=== PATIENT | male | born 1955 | race Caucasian/White ===

== ENCOUNTER 2018-02-22 11:21 | Inpatient (IN) | payer OTHER ==
--- OUTSIDE RECORDS SUMMARY | 2018-02-22 12:29 | XMS REPORT ---
:1955 Author Organization eClinicalWorks Care Team Providers Name Role Phone BaumJose Manuel Provider Role Unavailable Allergies, Adverse Reactions, Alerts Substance Reaction Event Type N.K.D.A. Info Not Available Non Drug Allergy Problems Problem Type Condition Code Onset Dates Condition Status Assessment Hypertension I10 Active Problem Hyperlipidemia, mixed E78.2 Active Problem Idiopathic peripheral neuropathy G60.9 Active Problem Insomnia G47.00 Active Problem Venous insufficiency I87.2 Active Problem Hypertension I10 Active Problem Obstructive sleep apnea G47.33 Active Problem Chronic renal disease N18.9 Active Problem Coronary artery disease I25.10 Active Problem Bipolar disorder F31.9 Active Assessment Bipolar disorder F31.9 Active Assessment Obstructive sleep apnea G47.33 Active Assessment Insomnia G47.00 Active Assessment Coronary artery disease I25.10 Active Assessment Idiopathic peripheral neuropathy G60.9 Active Assessment Hyperlipidemia, mixed E78.2 Active Medications Medication Code Code Instructions Start End Status Dosage System Date Date Colace [facility] 46580001842 100 MG Orally Active 1 capsule as Once a day needed Simvastatin [facility] 66174281052 40 MG Orally Active 1 tablet in Once a day the evening Metoprolol [facility] 17837093151 50 PO BID Active TAKE ONE Tartrate TABLET BY MOUTH TWICE A DAY. TAKE WITH METOPROLOL 25MG TO EQUAL TOTAL DOSE OF 75MG TWICE DAILY Neurontin [facility] 93668990946 300 MG Orally Inactive 1 capsule Once a day before bedtime Remeron [facility] 91980537715 30 MG Orally Active 1 tablet at Once a day bedtime Depakote ER [facility] 77939248814 500 MG Orally Active not defined Aspirin [facility] 17969416679 325 MG Orally Active 1 tablet Once a day Metoprolol [facility] 72876706298 25 PO BID Active TAKE ONE Tartrate TABLET BY MOUTH TWICE A DAY. TAKE WITH METOPROLOL 50MG TO TOTAL DOSE OF 75MG Lyrica [facility] 76213599531 75 MG Orally March Active 1 capsule 1 Twice a day 2017 to 3 hours before bedtime in the evening Zoloft NDC 10956460309 100 MG Orally Active 1 tablet Once a day Results No Known Results Summary Purpose eClinicalWorks Submission
--- OUTSIDE RECORDS SUMMARY | 2018-02-22 12:29 | XMS REPORT ---
:1955 Author Organization eClinicalWorks Care Team Providers Name Role Phone Jose Manuel Baum Provider Role Unavailable Allergies No Known Allergies Problems Problem Type Condition Code Onset Dates Condition Status Problem Hyperlipidemia, mixed E78.2 Active Problem Idiopathic peripheral neuropathy G60.9 Active Problem Insomnia G47.00 Active Problem Venous insufficiency I87.2 Active Problem Hypertension I10 Active Problem Obstructive sleep apnea G47.33 Active Problem Chronic renal disease N18.9 Active Problem Coronary artery disease I25.10 Active Problem Bipolar disorder F31.9 Active Medications No Known Medications Results No Known Results Summary Purpose eClinicalWorks Submission
--- OUTSIDE RECORDS SUMMARY | 2018-02-22 12:29 | XMS REPORT ---
:1955 Author Organization eClinicalWorks Care Team Providers Name Role Phone Jose Manuel Baum Provider Role Unavailable Allergies, Adverse Reactions, Alerts Substance Reaction Event Type Phenergan Info Not Available Drug Allergy Problems Problem Type Condition Code Onset Dates Condition Status Problem Hyperlipidemia, mixed E78.2 Active Problem Idiopathic peripheral neuropathy G60.9 Active Problem Insomnia G47.00 Active Problem Venous insufficiency I87.2 Active Problem Hypertension I10 Active Problem Obstructive sleep apnea G47.33 Active Problem Chronic renal disease N18.9 Active Problem Coronary artery disease I25.10 Active Problem Bipolar disorder F31.9 Active Medications Medication Code Code Instructions Start End Status Dosage System Date Date Neurontin [facility] 59623071765 300 MG Orally Active 1 capsule Once a day before bedtime Metoprolol [facility] 21258473048 50 Active TAKE ONE Tartrate TABLET BY MOUTH TWICE A DAY. TAKE WITH METOPROLOL 25MG TO EQUAL TOTAL DOSE OF 75MG TWICE DAILY Remeron [facility] 95240733290 30 MG Orally Active 1 tablet at Once a day bedtime Depakote ER [facility] 83618790956 500 MG Orally Active not defined Metoprolol [facility] 72827169920 25 Active TAKE ONE Tartrate TABLET BY MOUTH TWICE A DAY. TAKE WITH METOPROLOL 50MG TO TOTAL DOSE OF 75MG Colace [facility] 13243990440 100 MG Orally Active 1 capsule as Once a day needed Simvastatin [facility] 25701178268 40 MG Orally Active 1 tablet in Once a day the evening Zoloft [facility] 82167752562 100 MG Orally Active 1 tablet Once a day Results No Known Results Summary Purpose eClinicalWorks Submission
[2018-02-22] MEDS ORDERED: ACETAMINOPHEN 500 MG TAB PO PRN (12:52)
[2018-02-22] MEDS ORDERED: ONDANSETRON 4 MG/2 ML VIAL IV PRN (12:52)
[2018-02-22 12:59] VITALS: BMI 27.6
[2018-02-22] MEDS: NA CHLORIDE 0.9% 1,000 ML IV SCH ×2 (13:00→20:28)
[2018-02-22 14:11] LABS: Potassium 4.1 mEq/L (3.6-5.0)
[2018-02-22 14:14] LABS: Absolute Lymphocytes (CBC) 1.7 K/uL (0.7-4.9); Absolute Monocytes 0.6 K/uL (0.1-1.3); Absolute Neutrophil 3.7 K/uL (1.8-8.0); Albumin 3.2 g/dL (3.2-5.5); Basophils % 0.8 % (0-1.3); Bilirubin Total 0.4 mg/dL (0.3-1.2); Eosinophils % 1.2 % (0-4.4); Hematocrit 44.1 % (39.6-49.0); Lymphocytes % 28.1 % (15.3-44.8); MCH 33.6 pg (27.0-35.0); MCV 106.9 fL (80-100); MPV 8.3 fL (7.6-11.3); Magnesium 2.2 mg/dL (1.8-2.5); Monocytes % 9.2 % (3.3-12.3); Phosphorus 3.4 mg/dL (2.5-4.3); RBC Red Blood Cell Count 4.12 M/uL (4.33-5.43)
--- NOTE | 2018-02-22 14:30 | RAD REPORT ---
EXAM DESCRIPTION: CT - Head Brain Wo Cont - 02/22/2018 1:55 pm CLINICAL HISTORY: Transient alteration of awareness, hallucinations COMPARISON: None. TECHNIQUE: Axial 5 mm thick images of the head were obtained without IV contrast. All CT scans are performed using dose optimization technique as appropriate and may include automated exposure control or mA/KV adjustment according to patient size. FINDINGS: No intracranial hemorrhage, mass, edema or shift of mid-line structures. No acute cortical based infarction. No cortical edema or sulcal effacement. Prominent atrophy and chronic ischemic lorenzo nges are present. No abnormal extra-axial fluid collections. Ventricles are in proportion to volume l oss. Arterial and physiologic calcifications are present. Mastoid air cells and visualized portions of the paranasal sinuses are clear. No acute bony findings. IMPRESSION: Moderate severity atrophy and chronic ischemic change. No acute intracranial finding see n.
--- NOTE | 2018-02-22 14:39 | RAD REPORT ---
EXAM DESCRIPTION: RAD - Chest Pa And Lat (2 Views) - 02/22/2018 2:21 pm CLINICAL HISTORY: Cough and congestion COMPARISON: October 2012 TECHNIQUE: PA and lateral views of the chest were obtained. FINDINGS: The lungs are clear of an acute infiltrate, mass or failure finding. Lung markings are not significantly different from the comparison. Sternotomy wires remain in place. Heart size is yury l and central vasculature is within normal limits. No pleural effusion or pneumothorax seen. No acu te bony finding noted. No aortic abnormality. IMPRESSION: No acute cardiopulmonary process. No significant change from comparison.
--- NOTE | 2018-02-22 14:45 | RAD REPORT ---
EXAM DESCRIPTION: RAD - Lumbar Spine 3 Views - 02/22/2018 2:21 pm CLINICAL HISTORY: Back pain, radiculopathy COMPARISON: October 2012 FINDINGS: A three-view lumbar spine examination was performed. Lumbar bodies are normal in height. Vertebral height is similar to comparison. No acute compression f racture. No lytic, sclerotic or expansile bony destructive process. L5 pars defects are present. Ther e is L5 spondylolysis less than grade 1. These findings in alignment and changes are not substantiall y different from 2013. Patient has a right convex degenerative scoliotic curvature that is accentuate d slightly from comparison. The right lateral L3 subluxation has progressed minimally but is not a ne w finding. Prominent anterior endplate spurring is present with bridging ossification that has advanc ed over time. There is bridging ossification along the left lateral margin of L3-4. There is signific ant disc space narrowing at L3-4, primarily left lateral margin. L2-3 lateral disc space is narrowed slightly. No additional pars defects seen. IMPRESSION: Patient has prominent degenerative change scattered throughout the lumbar spine. Degener ative changes have progressed slightly since 2012. No compression fracture or other acute bone process identifiable.
[2018-02-22] MEDS: HYDROCODONE/APAP 7.5/325 MG TAB PO PRN ×2 (15:40→21:43)
[2018-02-22 15:45] LABS: Platelet Estimate ADEQ
[2018-02-22 15:46] LABS: Anisocytosis 1+; Blood Morphology Comment NOTED (NOT SEEN); Macrocytosis 1+; Urine White Blood Cell Casts OK
[2018-02-22 15:59] LABS: Urine Appearance CLEAR; Urine Bilirubin NEGATIVE (NEG); Urine Blood NEGATIVE (NEG); Urine Color YELLOW; Urine Glucose NEGATIVE (NEG); Urine Protein NEGATIVE (NEG); Urine Urobilinogen 0.2 mg/dL (0.2-1.0)
[2018-02-22 16:00] LABS: Urine Microscopic Reflex NO UMIC
--- NOTE | 2018-02-22 16:09 | EKG ---
Test Date: 2018-02-22 Test Time: 13:23:36 Steam Press Operator: CESAR MEASUREMENT RESULTS: Intervals: Rate: 69 NC: 156 QRSD: 86 QT: 412 QTc: 441 [place]: P: 65 NC: 156 QRS: 41 T: 68 INTERPRETIVE STATEMENTS: Normal sinus rhythm Nonspecific ST and T wave abnormality Abnormal ECG Compared to ECG 11/01/2012 18:44:24 ST (T wave) deviation now present Electronically Signed On 02-22-18 16:07:57 CDT by Yousif Lara
--- NOTE | 2018-02-22 16:53 | HP ---
Date of Admission: 02/22/2018 Chief Complaint: Abnormal labs. Primary Care Physician: Dr. Baum. Consultants: Dr. Younger with Nephrology. History Of Present Illness: The patient is a 63-year-old male with past medical history of coronary artery disease status post CABG, chronic kidney disease, insomnia, bipolar disorder, hypertension, wh o was directly admitted to the hospital for abnormal labs. The patient was seen by Dr. Maritza cabrera in her office today for routine followup for labs from previous week. His creatinine had jumped u p to 3.8, his baseline is around 2.5. His electrolytes were okay. The patient does report having so me generalized weakness, fatigue, and diarrhea over the past week. His symptoms are constant, modera te, progressively worsening. also reports that the patient had some confusion with hallucinatio ns also present. The patient does report some pain in his back and some heaviness in his lower extre mities. The patient states he is scheduled for a MRI of the back and arterial Doppler of his lower e xtremities later on this month by his PCP. When the patient was seen on the floor, he was awake, archie rt, oriented x3, in some mild distress due to pain. Past Medical History: Insomnia, bipolar disorder, hyperlipidemia, coronary artery disease, obstructi ve sleep apnea, hypertension, chronic kidney disease. Past Surgical History: CABG in 2010, cholecystectomy. Medications: Reviewed. Allergies: TO PHENERGAN. Family History: Father had pancreatic cancer. Mother has NE, polycythemia vera. Social History: The patient is for 18 years, has 3 children. Works at [employer]. He smokes a pack a day. No alcohol use. Review of Systems: An 11-point system reviewed, negative except as per HPI. Physical Examination: Vital Signs: Stable, afebrile. General: Awake, alert, oriented x3, some mild distress, elderly male. HEENT: Normocephalic, atraumatic. PERRLA. EOMI. Dry mucous membranes. Oropharynx is clear. Poor dentition. Conjunctiva anicteric. Neck: Supple. No JVD. Trachea midline. CV: S1, S2. No murmurs. Regular rate and rhythm. Peripheral pulses are present bilaterally. Respiratory: Clear to auscultation bilaterally. No wheezing. No stridor. No use of accessory musc les. Gastrointestinal: Abdomen is soft, nontender, nondistended. Positive bowel sounds. No guarding or rigidity. Extremities: No clubbing, cyanosis. Trace pedal edema. No calf tenderness. Neuro: Cranial nerves 2 through 12 intact grossly. No focal neurological deficit. Strength is 5/5 in bilateral upper and lower extremities. Sensation intact to light touch. Speech is normal. Musculoskeletal: Mild tenderness to palpation on the mid lumbar spine. Pain with lumbar flexion. Skin: No rashes. Normal skin turgor. Psych: Mood is okay. Affect is flat. Insight and judgment are good. Laboratory Data: Pending at this time. Assessment And Plan: A 63-year-old male with: 1.Acute on chronic kidney injury, may be related to acute dehydration and prerenal azotemia. We brian l start on IV fluids. We will recheck CBC, CMP and Dr. Younger with nephrology has been cons ulted. 2.Bipolar disorder. We will check Depakote level. 3.Coronary artery disease status post coronary artery bypass graft, [place] artery and [place] heart w [facility] angina, stable. We will resume aspirin. 4.Hyperlipidemia, mixed. We will continue home medications. The patient is on statin. 5.Insomnia. 6.Obstructive sleep apnea. We will have CPAP at night brought up. 7.Essential hypertension, stable. Resume home medications as appropriate. 8.Gastrointestinal and deep venous thrombosis prophylaxis with PPI and Lovenox renally dosed. Plan: Admit the patient to Med-Surg, place as inpatient. ANTOINE Voice ID: [id number]
[2018-02-22] MEDS: ENOXAPARIN 30 MG/0.3 ML SQ SCH (17:00)
[2018-02-22] MEDS: NICOTINE 21 MG/PAT TD SCH (20:29)
[2018-02-22] MEDS: ATORVASTATIN 20 MG TAB PO SCH (20:29)
[2018-02-22] MEDS: MIRTAZAPINE 15 MG TAB PO SCH (20:30)
[2018-02-22] MEDS: DIVALPROEX DR 500MG TAB PO SCH (20:30)
[2018-02-22] MEDS: METOPROLOL TAR 50 MG TAB PO SCH (20:30)
[2018-02-22] MEDS ORDERED: MIRTAZAPINE 30 MG PO SCH (21:00)
[2018-02-22] MEDS ORDERED: HOME MED 1 EA UNK (Simvastatin [Simvastatin] 40 MG) PO SCH (21:00)
[2018-02-23 05:48] LABS: Albumin 2.5 g/dL (3.2-5.5); Bilirubin Total 0.4 mg/dL (0.3-1.2); Potassium 4.7 mEq/L (3.6-5.0); Protein, Total 4.7 g/dL (6.0-8.3)
[2018-02-23 05:50] LABS: Absolute Lymphocytes (CBC) 2.8 K/uL (0.7-4.9); Absolute Monocytes 0.5 K/uL (0.1-1.3); Absolute Neutrophil 2.4 K/uL (1.8-8.0); Basophils % 0.8 % (0-1.3); Eosinophils % 1.7 % (0-4.4); Hematocrit 40.6 % (39.6-49.0); Lymphocytes % 48.2 % (15.3-44.8); MCV 107.5 fL (80-100); RBC Red Blood Cell Count 3.77 M/uL (4.33-5.43)
[2018-02-23] MEDS: HYDROCODONE/APAP 7.5/325 MG TAB PO PRN ×3 (06:05→19:08)
[2018-02-23] MEDS: NICOTINE 21 MG/PAT TD SCH (08:49)
[2018-02-23] MEDS: SERTRALINE HCL 100 MG TAB PO SCH (08:49)
[2018-02-23] MEDS: METOPROLOL TAR 50 MG TAB PO SCH ×2 (08:49→20:54)
[2018-02-23] MEDS: DIVALPROEX DR 250 MG TAB PO SCH (08:55)
[2018-02-23] MEDS ORDERED: NICOTINE 21 MG/PAT TD SCH (09:00)
[2018-02-23] MEDS: ASPIRIN 325 MG TAB PO SCH (11:13)
[2018-02-23] MEDS: NA CHLORIDE 0.9% 1,000 ML IV SCH ×2 (11:14→21:02)
--- NOTE | 2018-02-23 15:42 | PN ---
Date of Progress Note: 02/23/2018 Subjective: The patient seen and examined, chart reviewed, and case discussed with RN and Dr. Tigist knutson. The patient is doing better. Still complains of some lower back pain. Imaging test results rev iewed with the patient. All questions answered. Review of Systems: Negative except as above. Medications: Reviewed. Objective: Vital Signs: Temperature 96.1, heart rate 55, blood pressure 148/78, respirations 16, an d O2 95% on room air. General: Awake, alert, oriented x3. Some mild distress due to pain. Elderly male, slightly ill brian earing. CV: S1, S2. No murmurs. Regular rate and rhythm. Peripheral pulses present. Respiratory: Clear to auscultation bilaterally. No wheezing. Gastrointestinal: Abdomen is soft, nontender, nondistended. Positive bowel sounds. Extremities: No clubbing, cyanosis, edema. Neurologic: Nonfocal. Laboratory Data: Sodium 146, potassium 4.7, chloride 120, CO2 20, BUN 36, creatinine 3.27, glucose 6 8, calcium 8, and albumin 2.5. WBC 5.8, H and H 12.8, 40.6, platelets 168, and neutrophils 41%. Lum bar spine x-ray shows prominent degenerative change scattered throughout the lumbar spine. Degenerat chester changes progressed since previous. No compression fracture. Assessment And Plan: A 63-year-old male with; 1.Acute on chronic kidney injury, likely related to prerenal azotemia and dehydration. We will cont inue with IV fluids. Creatinine has improved. We will follow up with Nephrology recommendations. 2.Bipolar disorder. Depakote level within normal levels. 3.Coronary artery disease, status post CABG, [place] artery and [place] heart without angina, stable. 4.Hyperlipidemia, mixed. Continue statin. 5.Insomnia. 6.Obstructive sleep apnea. Have the patient bring up his CPAP. 7.Essential hypertension, stable. 8.Gastrointestinal and deep venous thrombosis prophylaxis with PPI and Lovenox renally dosed. We wi ll continue to monitor creatinine. SA/MODL Voice ID: [id number] Report ID: [id number]
[2018-02-23] MEDS: ENOXAPARIN 30 MG/0.3 ML SQ SCH (17:56)
[2018-02-23] MEDS: MIRTAZAPINE 15 MG TAB PO SCH (20:53)
[2018-02-23] MEDS: ATORVASTATIN 20 MG TAB PO SCH (20:54)
[2018-02-23] MEDS: DIVALPROEX DR 500MG TAB PO SCH (20:59)
[2018-02-23 22:45] VITALS: O2SAT 94
--- NOTE | 2018-02-24 01:22 | CON ---
Date of Consultation: 02/23/2018 Reason For Consultation: Elevated BUN and creatinine. Hypertension. History Of Present Illness: This is a pleasant 63-year-old gentleman, well known to me from the [facility], who follows up with Dr. Valenzuela with significant past medical history of coronary artery disease, status post CABG; hypertension; chronic kidney disease stage 3B/4 secondary to hypertension, nephrosclerosis, and renal vascular disease, bipolar. The patient with baseline creatinine 2.5, cam e to the office to Dr. Valenzuela. Lab done 1 week ago, creatinine 3.5. The patient had fatigu e, losing energy, decreased intake with confusion. For that reason, he was sent for direct admission . The patient denied any nausea or vomiting. Over the night, the patient started on IV fluid. Kidn ey function started to improve towards his baseline. The patient is feeling better. Past Medical History: Includes; 1.Insomnia. 2.Bipolar. 3.Hyperlipidemia. 4.Coronary artery disease. 5.Obstructive sleep apnea. 6.Hypertension. 7.Chronic kidney disease, stage 3B/4. Baseline creatinine 2.5. Past Surgical History: 1.CABG back in 2010. 2.Cholecystectomy. Allergies: PHENERGAN. Family History: Positive for pancreatic cancer, hypertension, and polycythemia vera. Social History: Active smoker. Denied alcohol. Denied drug abuse. Review of Systems: Head and Neck: No red eye. No ear pain. GI: Decreased intake. : No polyuria. No dysuria. No hematuria. CINDER PIT WORKER: Not applicable. Respiratory: No shortness of breath. Cardiovascular: No chest pain. Neurologic: Generalized fatigue. Endocrine: No polydipsia. Skin: No rash. Physical Examination: General: When I saw the patient, the patient lying in bed, comfortable, not in any distress. Vital Signs: Blood pressure of 132/88, pulse of 88. Chest: Clear to auscultation. Heart: S1, S2. Regular. Abdomen: Soft, nontender. Extremities: Trace edema. Neurological: Alert and oriented x3. No focal deficits. Medications: Home medications include; 1.Depakote. 2.Gabapentin 300 b.i.d. 3.Aspirin. 4.Simvastatin. 5.Sertraline. 6.Mirtazapine. 7.Metoprolol 75 b.i.d. Current medications in the hospital include; 1.Aspirin. 2.Atorvastatin. 3.Depakote 1000 in the morning, 250 during the day. 4.Lovenox. 5.Hydrocodone. 6.Metoprolol 75 b.i.d. 7.Nicotine patch. 8.Sertraline. Laboratory Data: For the patient; WBC 5.8, H and H of 12.8/40.6, platelet 168. Sodium 146, potassiu m 4.7, bicarb 20. BUN 36, creatinine 3.2, calcium 8. Urinalysis negative for infection. Valproic a amanda 4.7. Assessment And Plan: 1.Acute kidney injury secondary to prerenal, secondary to poor intake. I am going to continue hydra tion for the patient. We will monitor. We will hold on any diuresis. 2.Hypertension, controlled, optimal. Continue current medication. Hold Lasix. 3.Seizure. Will follow up with primary. DONN Voice ID: [id number] Report ID: [id number]
[2018-02-24 05:43] LABS: Absolute Lymphocytes (CBC) 2.3 K/uL (0.7-4.9); Absolute Monocytes 0.6 K/uL (0.1-1.3); Basophils % 0.5 % (0-1.3); Eosinophils % 1.9 % (0-4.4); Hematocrit 40.4 % (39.6-49.0); Lymphocytes % 38.6 % (15.3-44.8); MCH 34.3 pg (27.0-35.0); MCV 106.2 fL (80-100); MPV 7.9 fL (7.6-11.3); Monocytes % 9.4 % (3.3-12.3)
[2018-02-24 05:51] LABS: Albumin 2.4 g/dL (3.2-5.5); Bilirubin Total 0.3 mg/dL (0.3-1.2); Protein, Total 4.7 g/dL (6.0-8.3)
[2018-02-24] MEDS: HYDROCODONE/APAP 7.5/325 MG TAB PO PRN (11:01)
[2018-02-24] MEDS: NICOTINE 21 MG/PAT TD SCH (11:01)
[2018-02-24] MEDS: METOPROLOL TAR 50 MG TAB PO SCH (11:02)
[2018-02-24] MEDS: ASPIRIN 325 MG TAB PO SCH (11:04)
[2018-02-24] MEDS: DIVALPROEX DR 250 MG TAB PO SCH (11:05)
[2018-02-24] MEDS: SERTRALINE HCL 100 MG TAB PO SCH (11:07)
--- NOTE | 2018-02-24 11:49 | PN ---
Date of Progress Note: 02/24/2018 Subjective: The patient doing well. No nausea. No vomiting. Still complaining of pain. Physical Examination: Vital Signs: When I saw the patient, blood pressure of 177/87, pulse of 61. The patient had good ur ine output of 2800. Chest: Clear to auscultation. Heart: S1, S2. Regular. Abdomen: Soft, nontender. Extremities: No edema. Laboratory Data: H and H 13.1/40.4. Sodium 146, potassium 5, bicarb 20, BUN 32, creatinine 2.9, titus cium 8.2. Medications: Current medications the patient on include: 1.Normal saline at 50 per hour. 2.Aspirin. 3.Nicotine. 4.Lovenox. 5.Atorvastatin. 6.Metoprolol. 7.Mirtazapine. 8.Sertraline. 9.Hydrocodone. Assessment And Plan: 1.Acute kidney injury secondary to prerenal, recovered, back to baseline. I am going to go ahead an d discontinue IV fluid. 2.Hypertension, uncontrolled. Discontinue IV fluid. Add Norvasc. 3.Dehydration status post IV fluid, recovered, resolved. 4.Low back pain. We will follow up with primary. The patient cleared from the Renal standpoint for discharge planning. DONN Voice ID: [id number] Report ID: [id number]
--- NOTE | 2018-02-24 11:51 | PN ---
Date of Progress Note: 02/24/2018 Subjective: The patient doing better. Still complaining from low back pain. Otherwise, no other sy mptoms. Physical Examination: Vital Signs: Blood pressure 177/87, pulse of 60, afebrile. Chest: Clear to auscultation. Heart: S1, S2. Regular. Abdomen: Soft, nontender. Extremities: No edema. Laboratory Data: Sodium 146, potassium 5, bicarb 20, BUN 32, creatinine down to 2.9, calcium 8.2, GF R of 22. WBC 6, H and H 13.1/40.4, platelets 171. Medications: Current medications the patient on its include aspirin, nicotine patch, Lovenox, atorva statin, metoprolol 75 b.i.d., Mirtazapine, Zofran, hydrocodone. Assessment And Plan: 1.Acute kidney injury secondary to prerenal, recovered, back to close to baseline. 2.Hypertension, uncontrolled. I would discontinue IV fluid, start the patient on Norvasc, and ming nue beta-lyla. 3.Dehydration, recovered, resolved. 4.Electrolyte imbalance secondary to IV fluid. We will discontinue IV fluid. 5.Hyperkalemia, resolved. 6.Acidosis secondary to renal failure, resolved. The patient cleared from the Renal standpoint for discharge planning. DONN Voice ID: [id number] Report ID: [id number]
[2018-02-24 16:29] VITALS: BP 167/81; TEMP 96.9
--- NOTE | 2018-02-24 16:49 | DS ---
Date of Discharge: 02/24/2018 Consultants: Dr. Ziegler with Nephrology. Admitting Diagnoses: 1.Acute on chronic kidney injury, likely secondary to prerenal azotemia and dehydration. 2.Bipolar disorder. 3.Coronary artery disease status post coronary artery bypass graft, [place] artery and [place] heart w ithout angina. 4.Hyperlipidemia, mixed, on statin. 5.Insomnia. 6.Obstructive sleep apnea, on CPAP. 7.Essential hypertension, stable. Discharge Diagnoses: 1.Acute on chronic kidney disease, stage 3, back to baseline. 2.Essential hypertension, not well controlled. Medications adjusted. 3.Dehydration, resolved. 4.Electrolyte imbalance. 5.Hyperkalemia, corrected. 6.Acidosis secondary to renal failure, resolved. 7.Bipolar disorder, Depakote level normal. 8.Coronary artery disease status post coronary artery bypass graft, [place] artery and [place] heart w ithout angina, stable. 9.Hyperlipidemia, mixed. Continue statin. 10.Obstructive sleep apnea, CPAP. Hospital Course: The patient is a 63-year-old male, who was admitted directly from Dr. Maritza cabrera's office for acute on chronic kidney disease. His creatinine had increased to 3.8 with his baseli ne being around 2.5. The patient otherwise appeared dehydrated, was started on IV fluids. His kidne y function did improve. His creatinine was initially 4.06 and improved to 2.92 upon discharge, likel y secondary to dehydration and prerenal azotemia. The patient did have some electrolyte abnormalitie s, which were corrected. His valproic acid level was checked, which was within normal limits. The p atient's blood pressure was well controlled. Norvasc was added. The patient was then cleared for marvin lawson and was sent home in a stable condition once his kidney function recovered and he was ambulat ing back to baseline and did not have any difficulty tolerating p.o. intake. The patient was dis[facility] in a stable condition. Activity: Fall precautions. Diet: Renal. Followup: Follow up with primary care physician in 2-3 days. Follow up with chuck splitter, Dr. Laurence torres in 2 weeks. Return to ER for worsening condition. Medications: As per medication reconciliation list. Physical Examination: General: Awake, alert, oriented, no acute distress. CV: S1, S2. No murmurs. Respiratory: Moving air well bilaterally. Abdomen: Soft, nontender, nondistended. Positive bowel sounds. Extremities: No clubbing, cyanosis, edema. Neurologic: Nonfocal. Total time spent discharging the patient was 37 minutes. /SASHA Voice ID: [id number] Report ID: [id number]
[2018-02-25] MEDS ORDERED: AMLODIPINE 10 MG TAB PO SCH (09:00)
== END 2018-02-24 15:05 | disposition home or self-care (01) | DRG 683 ==
LOC: 2ND 12:20
PROVIDERS: ADMIT Family Medicine; ATTEND Family Medicine
DX: I12.9 Hypertensive chronic kidney disease with stage 1 through stage 4 chronic kidney disease, or unspecified chronic kidney disease (principal); N17.9 Acute kidney failure, unspecified; N18.3 Chronic kidney disease, stage 3 (moderate); E86.0 Dehydration; E87.5 Hyperkalemia; F31.9 Bipolar disorder, unspecified; I25.10 Atherosclerotic heart disease of native coronary artery without angina pectoris; Z95.1 Presence of aortocoronary bypass graft; G47.33 Obstructive sleep apnea (adult) (pediatric); N25.89 Other disorders resulting from impaired renal tubular function; R79.89 Other specified abnormal findings of blood chemistry; F17.210 Nicotine dependence, cigarettes, uncomplicated
CPT/HCPCS: 36415; 70450; 71046; 72100; 80053; 80164; 81003; 83735; 84100; 85025; 87045; 87046; 87493; 89055; 93005; 94760; J1650; J7030

== ENCOUNTER 2018-04-30 11:55 | Inpatient (IN) | payer OTHER ==
--- OUTSIDE RECORDS SUMMARY | 2018-04-30 11:58 | XMS REPORT ---
[...] End Status Dosage System Date Date Neurontin [facility] 82250087322 300 MG Orally Active 1 capsule Once a day before bedtime Metoprolol [facility] 37988517571 50 Active TAKE ONE Tartrate TABLET BY MOUTH TWICE A DAY. TAKE WITH METOPROLOL 25MG TO EQUAL TOTAL DOSE OF 75MG TWICE DAILY Remeron [facility] 62430752026 30 MG Orally Active 1 tablet at Once a day bedtime Depakote ER [facility] 81168572940 500 MG Orally Active not defined Metoprolol [facility] 02351728396 25 Active TAKE ONE Tartrate TABLET BY MOUTH TWICE A DAY. TAKE WITH METOPROLOL 50MG TO TOTAL DOSE OF 75MG Colace [facility] 27225242588 100 MG Orally Active 1 capsule as Once a day needed Simvastatin [facility] 06336069639 40 MG Orally Active 1 tablet in Once a day the evening Zoloft [facility] 46607703440 100 MG Orally Active 1 tablet Once a day Results No Known Results Summary Purpose eClinicalWorks Submission
--- OUTSIDE RECORDS SUMMARY | 2018-04-30 11:58 | XMS REPORT ---
:1955 Author Organization eClinicalWorks Care Team Providers Name Role Phone Bautista Jose Manuel Provider Role Unavailable Allergies No Known Allergies Problems Problem Type Condition Code Onset Dates Condition Status Problem Insomnia G47.00 Active Problem Hyperlipidemia, mixed E78.2 Active Problem Hypertension I10 Active Problem Memory changes R41.3 Active Problem Urinary incontinence, unspecified R32 Active type Problem Abnormal gait R26.9 Active Problem Obstructive sleep apnea G47.33 Active Problem Chronic renal disease N18.9 Active Problem CKD (chronic kidney disease), stage N18.4 Active IV Problem Idiopathic peripheral neuropathy G60.9 Active Assessment Memory changes R41.3 Active Assessment Abnormal gait R26.9 Active Problem Bipolar disorder F31.9 Active Assessment Urgency of urination R39.15 Active Problem Coronary artery disease I25.10 Active Assessment Urinary incontinence, unspecified R32 Active type Problem Venous insufficiency I87.2 Active Medications Medication Code Code Instructions Start End Status Dosage System Date Date Depakote ER [facility] 73475826644 500 MG Orally Active not defined Remeron [facility] 97293654240 30 MG Orally Active 1 tablet at Once a day bedtime Gabapentin [facility] 32445594602 300 MG Orally Active 1 capsule Twice a day Metoprolol [facility] 49214267267 25 PO BID Active TAKE ONE Tartrate TABLET BY MOUTH TWICE A DAY. TAKE WITH METOPROLOL 50MG TO TOTAL DOSE OF 75MG Colace [facility] 93437735154 100 MG Orally Active 1 capsule as Once a day needed Simvastatin ND 68452959841 40 MG Orally Active 1 tablet in Once a day the evening Neurontin ND 17664238253 300 MG Orally Active 1 capsule Twice a day before bedtime Aspirin [facility] 63432584448 325 MG Orally Active 1 tablet Once a day Metoprolol [facility] 36081274632 50 PO BID Active TAKE ONE Tartrate TABLET BY MOUTH TWICE A DAY. TAKE WITH METOPROLOL 25MG TO EQUAL TOTAL DOSE OF 75MG TWICE DAILY Zoloft [facility] 17814734001 100 MG Orally Active 1 tablet Once a day Results No Known Results Summary Purpose eClinicalWorks Submission
--- OUTSIDE RECORDS SUMMARY | 2018-04-30 11:58 | XMS REPORT ---
:1955 Author Organization eClinicalWorks Care Team Providers Name Role Phone Jose Manuel Baum Provider Role Unavailable Allergies, Adverse Reactions, Alerts Substance Reaction Event Type Phenergan Info Not Available Drug Allergy Problems Problem Type Condition Code Onset Dates Condition Status Problem Hyperlipidemia, mixed E78.2 Active Problem Obstructive sleep apnea G47.33 Active Problem Chronic renal disease N18.9 Active Problem Idiopathic peripheral neuropathy G60.9 Active Problem Hypertension I10 Active Problem CKD (chronic kidney disease), stage N18.4 Active IV Problem Coronary artery disease I25.10 Active Problem Bipolar disorder F31.9 Active Problem Insomnia G47.00 Active Problem Venous insufficiency I87.2 Active Assessment Insomnia G47.00 Active Assessment Idiopathic peripheral neuropathy G60.9 Active Assessment Coronary artery disease I25.10 Active Assessment Hyperlipidemia, mixed E78.2 Active Assessment Bipolar disorder F31.9 Active Assessment CKD (chronic kidney disease), stage N18.4 Active IV Assessment Obstructive sleep apnea G47.33 Active Assessment Hypertension I10 Active Medications Medication Code Code Instructions Start End Status Dosage System Date Date Remeron [facility] 53365203409 30 MG Orally Active 1 tablet at Once a day bedtime Depakote ER [facility] 67275973280 500 MG Orally Active not defined Neurontin [facility] 46465005758 300 MG Orally Active 1 capsule Twice a day before bedtime Colace [facility] 96803106866 100 MG Orally Active 1 capsule as Once a day needed Zoloft [facility] 84295507045 100 MG Orally Active 1 tablet Once a day Metoprolol [facility] 66863242498 50 PO BID Active TAKE ONE Tartrate TABLET BY MOUTH TWICE A DAY. TAKE WITH METOPROLOL 25MG TO EQUAL TOTAL DOSE OF 75MG TWICE DAILY Simvastatin [facility] 89530472879 40 MG Orally Active 1 tablet in Once a day the evening Gabapentin [facility] [address]-95 300 MG Orally Active 1 capsule Twice a day Aspirin [facility] 76913457601 325 MG Orally Active 1 tablet Once a day Metoprolol [facility] 44436406166 25 PO BID Active TAKE ONE Tartrate TABLET BY MOUTH TWICE A DAY. TAKE WITH METOPROLOL 50MG TO TOTAL DOSE OF 75MG Results No Known Results Summary Purpose eClinicalWorks Submission
--- OUTSIDE RECORDS SUMMARY | 2018-04-30 11:58 | XMS REPORT ---
[...] End Status Dosage System Date Date Colace [facility] 75040449374 100 MG Orally Active 1 capsule as Once a day needed Simvastatin [facility] 32070660621 40 MG Orally Active 1 tablet in Once a day the evening Metoprolol [facility] 27526055046 50 PO BID Active TAKE ONE Tartrate TABLET BY MOUTH TWICE A DAY. TAKE WITH METOPROLOL 25MG TO EQUAL TOTAL DOSE OF 75MG TWICE DAILY Neurontin [facility] 62673502942 300 MG Orally Inactive 1 capsule Once a day before bedtime Remeron [facility] 62547146781 30 MG Orally Active 1 tablet at Once a day bedtime Depakote ER [facility] 30284649253 500 MG Orally Active not defined Aspirin [facility] 87323835504 325 MG Orally Active 1 tablet Once a day Metoprolol [facility] 33442540778 25 PO BID Active TAKE ONE Tartrate TABLET BY MOUTH TWICE A DAY. TAKE WITH METOPROLOL 50MG TO TOTAL DOSE OF 75MG Lyrica [facility] 45182901820 75 MG Orally March Active 1 capsule 1 Twice a day 2017 to 3 hours before bedtime in the evening Zoloft NDC 27899114322 100 MG Orally Active 1 tablet Once a day Results No Known Results Summary Purpose eClinicalWorks Submission
--- OUTSIDE RECORDS SUMMARY | 2018-04-30 11:58 | XMS REPORT ---
[...] IV Problem Idiopathic peripheral neuropathy G60.9 Active Problem Bipolar disorder F31.9 Active Problem Coronary artery disease I25.10 Active Problem Venous insufficiency I87.2 Active Medications No Known Medications Results No Known Results Summary Purpose eClinicalWorks Submission
[2018-04-30] MEDS ORDERED: NA CHLORIDE 0.9% 500 ML ONE ×2 (12:55→17:32)
--- NOTE | 2018-04-30 13:04 | RAD REPORT ---
EXAM DESCRIPTION: CT - Head Brain Wo Cont - 04/30/2018 12:49 pm CLINICAL HISTORY: AMS Drowsiness COMPARISON: Head Brain Wo Cont dated 02/22/2018 TECHNIQUE: All CT scans are performed using dose optimization technique as appropriate and may inclu de automated exposure control or mA/KV adjustment according to patient size. FINDINGS: No intracranial hemorrhage, hydrocephalus or extra-axial fluid collection.Small area of gl iosis is seen posterior right periventricular white matter measuring 11 mm, compatible with old ische janett.No areas of brain edema or evidence of midline shift. The paranasal sinuses and mastoids are clear. The calvarium is intact. IMPRESSION: No acute intracranial abnormality.
--- NOTE | 2018-04-30 13:16 | RAD REPORT ---
EXAM DESCRIPTION: RAD - Chest Single View - 04/30/2018 1:11 pm CLINICAL HISTORY: ams Chest pain. COMPARISON: Chest Pa And Lat (2 Views) dated 02/22/2018; CHEST SINGLE VIEW dated 11/01/2012; CHEST SIN GLE VIEW dated 05/10/2012; CHEST PA AND LAT 2 VIEW dated 04/09/2012 FINDINGS: Portable technique limits examination quality. The lungs are grossly clear. The heart is upper limit of normal in size. No displaced fractures.Carlson otomy wires noted. IMPRESSION: No acute intrathoracic process suspected.
[2018-04-30 13:18] LABS: Absolute Lymphocytes (CBC) 1.8 K/uL (0.7-4.9); Absolute Monocytes 1.1 K/uL (0.1-1.3); Absolute Neutrophil 5.4 K/uL (1.8-8.0); Basophils % 0.5 % (0-1.3); Eosinophils % 0.3 % (0-4.4); Hematocrit 38.1 % (39.6-49.0); Lymphocytes % 21.5 % (15.3-44.8); MCH 36.1 pg (27.0-35.0); MCV 110.3 fL (80-100); MPV 8.5 fL (7.6-11.3); Monocytes % 12.6 % (3.3-12.3); RBC Red Blood Cell Count 3.45 M/uL (4.33-5.43)
[2018-04-30 13:25] LABS: Bilirubin Direct 0.2 mg/dL (0-0.2); Bilirubin Total 0.4 mg/dL (0.2-1.0); CKMB Creatine Kinase MB 3.4 ng/mL (0.3-3.6); Magnesium 2.5 mg/dL (1.8-2.4); Potassium 4.6 mmol/L (3.5-5.1); Protein, Total 6.5 g/dL (6.4-8.2)
[2018-04-30] MEDS ORDERED: ACETAMINOPHEN 500 MG TAB ONE (13:32)
[2018-04-30 13:36] LABS: Protime INR 0.99
--- NOTE | 2018-04-30 15:31 | RAD REPORT ---
EXAM DESCRIPTION: MRI - Lumbar Spine Wo Con - 04/30/2018 3:15 pm CLINICAL HISTORY: Back pain, urinary incontinence COMPARISON: MRI March 08, 2018 TECHNIQUE: Sagittal T1-weighted, T2-weighted and T2-STIR weighted sequences were obtained. Axial T1 -weighted and heavily T2-weighted sequenceswere obtained through the lumbar disc levels. FINDINGS: Lumbar body height, alignment and marrow signal pattern has not changed since February compari son. Right convex curvature of the lumbar spine, anterior subluxation L5 and the right lateral sublux ation of L3 are stable findings. No paraspinal mass has developed. Conus is normal with no clumping or thickening of the cauda equina. T12-L1 level: No significant findings. L1-2 level: Disc is thinned and desiccated. No central spinal stenosis. No new or progressive foramin al stenosis. L2-3 level: Disc is thinned and desiccated. No central spinal stenosis. No new or progressive foramin al encroachment. L3-4 level: Disc is thinned and desiccated. Facet degenerative changes are present. Canal is borderli ne stenotic at 10-11 mm. No new or progressive left foraminal encroachment. Very prominent right fora joseline stenosis is still present. L4-5 level: Disc desiccation without significant loss in disc height. Disc bulge changes are present. A small midline annular fissure is present. Canal is borderline stenotic at 10-11 mm. Right foramina l encroachment changes are present. L5-S1 level: Disc is thinned and desiccated. Facet degenerative changes are present. Right greater th an left foraminal stenosis present due to subluxation, disc bulge and facet degenerative change. No c anal stenosis. IMPRESSION: Patient has extensive lumbar spine degenerative change as detailed above. No acute finding is seen and the degenerative pattern is not clearly different from February 2018.
[2018-04-30 15:52] LABS: Urine Blood NEGATIVE (NEG); Urine Glucose NEGATIVE (NEG); Urine Protein NEGATIVE (NEG)
[2018-04-30 16:06] LABS: Arterial Blood Carboxyhemoglob 3.5 % (0-1.5); Blood Gas Oxyhemoglobin 89.2 % (94-97); Blood O2 Saturation 93.7 % (92-98.5)
[2018-04-30 16:14] LABS: Urine Bacteria <20 /HPF (NONE SEEN); Urine Culture Reflex Order NOT NEEDED; Urine RBC <5 /HPF (NONE SEEN)
[2018-04-30 16:35] LABS: Blood Morphology Comment NOTED (NOT SEEN); Macrocytosis 2+; Platelet Estimate ADEQ; Urine White Blood Cell Casts OK
--- NOTE | 2018-04-30 17:12 | EKG ---
Test Date: 2018-04-30 Test Time: 12:55:52 [employer] Dist[employer] Operator: ADELINA MEASUREMENT RESULTS: Intervals: Rate: 64 IA: 142 QRSD: 86 QT: 440 QTc: 453 Mckenzie: P: 73 IA: 142 QRS: 43 T: 87 INTERPRETIVE STATEMENTS: Normal sinus rhythm Normal ECG Compared to ECG 02/22/2018 13:23:36 ST (T wave) deviation no longer present Electronically Signed On 04-30-18 17:10:34 CDT by Han Dhillon
[2018-04-30] MEDS ORDERED: PIPER/TAZO/NS 2.25gm 2.25 GM/50 ML BAG ONE (17:33)
--- NOTE | 2018-04-30 18:02 | RAD REPORT ---
EXAM DESCRIPTION: CT - Stone Protocol - 04/30/2018 5:40 pm CLINICAL HISTORY: Abdominal pain, diarrhea, urinary incontinence COMPARISON: CT imaging April 2012 TECHNIQUE: Axial 5 mm thick images were obtained without oral or IV contrast. The [id number] span s the entirety of the system partially obscuring uppermost abdomen and lung bases. All CT scans are performed using dose optimization technique as appropriate and may include automated exposure control or mA/KV adjustment according to patient size. FINDINGS: No hydronephrosis is present and no obstructing ureteral calculi. No suspicious renal mass es. Isodense masses and pyelonephritis are not excluded on a stone protocol CT scan. Renal parenchyma is not clearly different from comparison. No urinary bladder abnormality. Prostate gland size is nor mal. There is some appearance of congestion or edema. Prostatitis would be possible and needs correla tion with clinical presentation. Imaged portions of the liver, spleen and pancreas show no suspicious findings on non-contrast imaging . Cholecystectomy clips are present. No biliary tree dilatation. No significant adrenal finding. No suspicious bowel findings. No hernia, mass or bulky lymphadenopathy noted. No free air, free fluid or inflammatory stranding. Prominent bony degenerative changes are present in the lower lumbar spine and pelvis. Numerous areas of osteopenic change are present. The lucent areas in the pelvis are not substantially different over a long interval. Therefore, multiple myeloma or other aggressive process would be unlikely. Scarring and atelectasis changes are present in each posterior gutter. No significant change from com parison. IMPRESSION: No hydronephrosis, obstructing calculus or acute renal parenchymal process seen. Margins of the prostate gland are somewhat shaggy compared to the prior study. Correlation is needed with any exam or laboratory findings of prostatitis. Additional nonacute findings detailed in the body of the report. Isodense masses and pyelonephritis are not excluded on stone protocol technique.
[2018-04-30] MEDS ORDERED: NA CHLORIDE 0.9% 1,000 ML ONE (18:53)
--- NOTE | 2018-04-30 19:16 | EDPHYS ---
Physician Documentation [facility] Name: Kavin Armijo Age: 63 yrs Sex: Male : 1955 Arrival Date: 04/30/2018 Time: 12:00 Bed 2 Private MD: Bautista [facility] ED Physician Marcus Torres HPI: 04/30 12:36 This 63 yrs old Male presents to ER via Wheelchair with complaints of Altered jmm Mental Status, Diarrhea. 12:36 The patient presents with decreased responsiveness. Onset: The symptoms/episode jmm began/occurred gradually, 1 week(s) ago. Possible causes: unknown. This is a 63 year old male with a history of ckd, htn, sleep apnea, that presents to the ED with increased somnolense, diarrhe, urinary incontinence beginning approx 1 week ago per patient and family. Patient was admitted for similar episode 2 months prior. Patient also complains of lower back pain. Patient denies chest pain, fever, shortness of breath. . Historical: - Allergies: 12:09 Phenergan; la1 - PMHx: 12:09 Renal Disease; Hypertension; Sleep Apnea; Bipolar disorder; anmesia; la1 - Immunization history:: Adult Immunizations up to date. - Social history:: Smoking status: Patient uses tobacco products, smokes one-half pack cigarettes per day. - Ebola Screening: : No symptoms or risks identified at this time. ROS: 12:36 Eyes: Negative for injury, pain, redness, and discharge, Cardiovascular: Negative for jmm chest pain, palpitations, and edema, Respiratory: Negative for shortness of breath, cough, wheezing, and pleuritic chest pain. 12:36 MS/Extremity: Negative for injury and deformity, Skin: Negative for injury, rash, and discoloration. 12:36 Constitutional: Positive for malaise. 12:36 Abdomen/GI: Positive for diarrhea. 12:36 : Positive for urinary symptoms, bladder incontinence 12:36 Neuro: Positive for weakness. 12:36 All other systems are negative. Exam: 12:36 Head/Face: atraumatic. Chest/axilla: Normal chest wall appearance and motion. jmm Cardiovascular: Regular rate and rhythm. No edema appreciated Respiratory: Normal respirations, no respiratory distress appreciated Abdomen/GI: Non distended, soft 12:36 Constitutional: The patient appears in no acute distress, alert, awake. 12:36 Abdomen/GI: Palpation: abdomen is soft and non-tender, in all quadrants. 12:36 Back: pain, that is mild, of the left low back and right low back. 12:36 Musculoskeletal/extremity: ROM: intact in all extremities, full extension of extensor hallucis longus is appreciated bilaterally. . 12:36 Skin: Appearance: Color: normal in color. 12:36 Neuro: Orientation: is normal, Mentation: is normal, Memory: is normal. Vital Signs: 12:09 BP 82 / 59; Pulse 65; Resp 16; Temp 97.0(TE); Pulse Ox 95% on R/A; Weight 79.38 kg; la1 Height 5 ft. 8 in. (172.72 cm); 12:30 BP 94 / 65; Pulse 63; Resp 16; Pulse Ox 88% on R/A; tw2 13:06 BP 103 / 63; Pulse 13; Resp 16; Pulse Ox 95% on 2 lpm NC; tw2 13:32 BP 104 / 60; Pulse 67; Resp 11; Pulse Ox 95% on 2 lpm NC; tw2 14:02 BP 105 / 58; Pulse 64; Resp 13; Pulse Ox 97% on 2 lpm NC; tw2 15:30 BP 117 / 73; Pulse 66; Resp 16; Pulse Ox 95% on 2 lpm NC; tw2 16:30 BP 101 / 60; Pulse 64; Resp 17; Pulse Ox 95% on R/A; tw2 17:01 BP 97 / 60; Pulse 64; Resp 16; Pulse Ox 95% ; jl7 18:00 BP 137 / 85; Pulse 65; Resp 14; Pulse Ox 96% on R/A; tw2 19:14 BP 136 / 72; Pulse 66; Resp 16; Pulse Ox 99% on R/A; Pain 0/10; aa1 20:06 BP 144 / 80; Pulse 68; Resp 14; Pulse Ox 97% on R/A; Pain 0/10; aa1 12:09 Body Mass Index 26.61 (79.38 kg, 172.72 cm) la1 12:30 pt placed on o2 via nc at 2L, provider notified, states he does have sleep apnea, tw2 pt was sleeping with mouth open at this time. MDM: 12:36 Patient medically screened. [facility] 18:19 Data reviewed: vital signs, nurses notes, lab test result(s), radiologic studies, CT [facility] scan, MRI. Counseling: I had a detailed discussion with the patient and/or guardian regarding: the historical points, exam findings, and any diagnostic results supporting the discharge/admit diagnosis, lab results, radiology results, the need for further work-up and treatment in the hospital. 04/30 12:37 Order name: Basic Metabolic Panel; Complete Time: 13:58 [facility] 04/30 12:37 Order name: CBC with Diff; Complete Time: 16:52 [facility] 04/30 12:37 Order name: Ckmb; Complete Time: 13:58 [facility] 04/30 12:37 Order name: CPK; Complete Time: 13:58 [facility] 04/30 12:37 Order name: LFT's; Complete Time: 13:58 [facility] 04/30 12:37 Order name: Magnesium; Complete Time: 13:58 [facility] 04/30 12:37 Order name: NT PRO-BNP; Complete Time: 13:58 [facility] 04/30 12:37 Order name: PT-INR; Complete Time: 13:58 [facility] 04/30 12:37 Order name: Ptt, Activated; Complete Time: 13:58 [facility] 04/30 12:37 Order name: Troponin (emerg Dept Use Only); Complete Time: 13:58 [facility] 04/30 12:37 Order name: Lipase; Complete Time: 13:58 [facility] 04/30 12:37 Order name: Blood Culture Adult (2) [facility] 04/30 12:37 Order name: Procalcitonin; Complete Time: 13:58 [facility] 04/30 13:19 Order name: CBC Smear Scan; Complete Time: 16:52 [facility] 04/30 12:37 Order name: XRAY Chest (1 view); Complete Time: 13:23 [facility] 04/30 12:37 Order name: EKG; Complete Time: 12:38 [facility] 04/30 12:37 Order name: CT Head Brain wo Cont; Complete Time: 13:11 [facility] 04/30 13:24 Order name: AMMONIA; Complete Time: 13:58 [facility] 04/30 14:20 Order name: MRI Lumbar Spine wo Con; Complete Time: 15:42 [facility] 04/30 14:27 Order name: ABG; Complete Time: 16:52 [facility] 04/30 15:39 Order name: Urine Dipstick--Ancillary (enter results); Complete Time: 16:52 [facility] 04/30 15:54 Order name: Urine Microscopic Only; Complete Time: 16:52 [facility] 04/30 17:19 Order name: Uric Acid; Complete Time: 18:40 [facility] 04/30 17:40 Order name: Stone Protocol; Complete Time: 18:07 [facility] 04/30 12:37 Order name: Cardiac monitoring; Complete Time: 13:03 [facility] 04/30 12:37 Order name: EKG - Nurse/Tech; Complete Time: 13:03 [facility] 04/30 12:37 Order name: IV Saline Lock; Complete Time: 13:03 [facility] 04/30 12:37 Order name: Labs collected and sent; Complete Time: 13:03 [facility] 04/30 12:37 Order name: O2 Per Protocol; Complete Time: 13:03 [facility] 04/30 12:37 Order name: O2 Sat Monitoring; Complete Time: 13:03 [facility] 04/30 12:37 Order name: Urine Dipstick-Ancillary (obtain specimen); Complete Time: 15:53 [facility] 04/30 14:27 Order name: Bladder Scanner; Complete Time: 15:30 [facility] 04/30 18:41 Order name: Diet Heart Healthy; Complete Time: 18:41 tw2 Administered Medications: 13:02 Drug: NS 0.9% 500 ml Route: IV; Rate: bolus; Site: left antecubital; tw2 14:20 Follow up: Response: No adverse reaction; IV Status: Completed infusion; IV Intake: tw2 500ml 13:30 Drug: Tylenol 500 mg Route: PO; tw2 14:00 Follow up: Response: No adverse reaction tw2 18:00 Drug: NS 0.9% 500 ml Route: IV; Rate: bolus; Site: left antecubital; tw2 18:51 Follow up: Response: No adverse reaction; IV Status: Completed infusion; IV Intake: tw2 500ml 18:00 Drug: Zosyn 2.25 grams Route: IVPB; Infused Over: 60 mins; Site: left antecubital; tw2 18:51 Follow up: Response: No adverse reaction; IV Status: Completed infusion tw2 18:50 Drug: NS 0.9% 1000 ml Route: IV; Rate: 100 ml/hr; Site: left antecubital; jl7 20:22 Follow up: IV Status: Infusion continued upon admission aa1 Disposition: 05/01 15:54 Co-signature as Attending Physician, Marcus Torres MD. Disposition: 04/30/18 19:15 Hospitalization ordered by Arabella Domínguez for Inpatient Admission. Preliminary diagnosis are Dehydration, Diarrhea, unspecified, Metabolic Acidosis. - Bed requested for Telemetry/MedSurg (Inpatient). - Status is Inpatient Admission. aa1 - Condition is Stable. - Problem is new. - Symptoms have improved. UTI on Admission? No Signatures: Dispatcher [employer] EDMO Shell Neal, RN RN aa1 Sotero Loco PA PA [facility] Jeane Marroquin RN RN bb Freedom Torres RN RN la1 Mery Lion, RN RN tw2 Nasir Glez RN RN jl7 Marcus Torres MD MD Corrections: (The following items were deleted from the chart) 04/30 17:40 17:17 Abdomen Pelvis Wo Con+CT.RAD.BRZ ordered. [facility] 19:42 19:15 Hospitalization Ordered by Arabella Domínguez MD for Inpatient Admission. Preliminary bb diagnosis is Dehydration; Diarrhea, unspecified; Metabolic Acidosis. Bed requested for Telemetry/MedSurg (Inpatient). Status is Inpatient Admission. Condition is Stable. Problem is new. Symptoms have improved. UTI on Admission? No. [facility] 20:39 19:42 04/30/2018 19:15 Hospitalization Ordered by Arabella Domínguez MD for Inpatient aa1 Admission. Preliminary diagnosis is Dehydration; Diarrhea, unspecified; Metabolic Acidosis. Bed requested for Telemetry/MedSurg (Inpatient). Status is Inpatient Admission. Condition is Stable. Problem is new. Symptoms have improved. UTI on Admission? No. bb
--- NOTE | 2018-04-30 19:16 | ER ---
Nurse's Notes [facility] Name: Kavin Armijo Age: 63 yrs Sex: Male : 1955 Arrival Date: 04/30/2018 Time: 12:00 Bed 2 Private MD: Jose Manuel Baum Diagnosis: Dehydration;Diarrhea, unspecified;Metabolic Acidosis Presentation: 04/30 12:07 Presenting complaint: Patient states: I have been having diarrhea and urinary la1 incontinence since last night. Pt alert, oriented x4. states pt told her he felt "like he was high" Pt denies pain. Transition of care: patient was not received from another setting of care. Onset of symptoms was April 30, 2018. Risk Assessment: Do you want to hurt yourself or someone else? Patient reports no desire to harm self or others. Initial Sepsis Screen: Does the patient meet any 2 criteria? No. Patient's initial sepsis screen is negative. Does the patient have a suspected source of infection? No. Patient's initial sepsis screen is negative. Care prior to arrival: None. 12:07 Method Of Arrival: Wheelchair la1 12:07 Acuity: CHANNING 2 la1 Historical: - Allergies: 12:09 Phenergan; la1 - PMHx: 12:09 Renal Disease; Hypertension; Sleep Apnea; Bipolar disorder; anmesia; la1 - Immunization history:: Adult Immunizations up to date. - Social history:: Smoking status: Patient uses tobacco products, smokes one-half pack cigarettes per day. - Ebola Screening: : No symptoms or risks identified at this time. Screenin:40 Abuse screen: Denies threats or abuse. Nutritional screening: No deficits noted. tw2 Tuberculosis screening: No symptoms or risk factors identified. Fall Risk None identified. Assessment: 12:10 General: Appears in no apparent distress. Behavior is calm, cooperative, drowsy. Pain: tw2 Complains of pain in back. Neuro: Level of Consciousness is awake, alert, obeys commands, Oriented to person, place, time, situation. Cardiovascular: Denies chest pain, shortness of breath, Heart tones S1 S2 Capillary refill < 3 seconds Patient's skin is warm and dry. Respiratory: Airway is patent Respiratory effort is even, unlabored, Respiratory pattern is regular, symmetrical, Breath sounds are clear bilaterally. GI: No signs and/or symptoms were reported involving the gastrointestinal system. Abdomen is flat, non-distended, Bowel sounds present X 4 quads. : No signs and/or symptoms were reported regarding the genitourinary system. EENT: No signs and/or symptoms were reported regarding the EENT system. Derm: Skin is intact, is healthy with good turgor, Skin temperature is warm. Musculoskeletal: Range of motion: intact in all extremities. 13:06 Reassessment: Patient appears in no apparent distress at this time. No changes from tw2 previously documented assessment. Patient and/or family updated on plan of care and expected duration. Pain level reassessed. Patient is alert, oriented x 3, equal unlabored respirations, skin warm/dry/pink. 14:02 Reassessment: Patient appears in no apparent distress at this time. No changes from tw2 previously documented assessment. Patient and/or family updated on plan of care and expected duration. Pain level reassessed. Patient is alert, oriented x 3, equal unlabored respirations, skin warm/dry/pink. 14:32 Reassessment: pt taken to MRI at this time. tw2 15:31 Reassessment: Patient appears in no apparent distress at this time. No changes from tw2 previously documented assessment. Patient and/or family updated on plan of care and expected duration. Pain level reassessed. Patient is alert, oriented x 3, equal unlabored respirations, skin warm/dry/pink. 16:30 Reassessment: Patient appears in no apparent distress at this time. No changes from tw2 previously documented assessment. Patient and/or family updated on plan of care and expected duration. Pain level reassessed. Patient is alert, oriented x 3, equal unlabored respirations, skin warm/dry/pink. 18:00 Reassessment: Patient appears in no apparent distress at this time. Patient and/or tw2 family updated on plan of care and expected duration. Pain level reassessed. Patient is alert, oriented x 3, equal unlabored respirations, skin warm/dry/pink. pt more alert and awake at this time. Patient states symptoms have improved. 19:14 Reassessment: Patient appears in no apparent distress at this time. Patient and/or aa1 family updated on plan of care and expected duration. Pain level reassessed. Patient is alert, oriented x 3, equal unlabored respirations, skin warm/dry/pink. Awaiting provider reassessment. 20:24 Reassessment: Patient appears in no apparent distress at this time. Patient and/or aa1 family updated on plan of care and expected duration. Pain level reassessed. Patient is alert, oriented x 3, equal unlabored respirations, skin warm/dry/pink. Report given to Radha on 2nd floor. Awaiting registration packet. Vital Signs: 12:09 BP 82 / 59; Pulse 65; Resp 16; Temp 97.0(TE); Pulse Ox 95% on R/A; Weight 79.38 kg; la1 Height 5 ft. 8 in. (172.72 cm); 12:30 BP 94 / 65; Pulse 63; Resp 16; Pulse Ox 88% on R/A; tw2 13:06 BP 103 / 63; Pulse 13; Resp 16; Pulse Ox 95% on 2 lpm NC; tw2 13:32 BP 104 / 60; Pulse 67; Resp 11; Pulse Ox 95% on 2 lpm NC; tw2 14:02 BP 105 / 58; Pulse 64; Resp 13; Pulse Ox 97% on 2 lpm NC; tw2 15:30 BP 117 / 73; Pulse 66; Resp 16; Pulse Ox 95% on 2 lpm NC; tw2 16:30 BP 101 / 60; Pulse 64; Resp 17; Pulse Ox 95% on R/A; tw2 17:01 BP 97 / 60; Pulse 64; Resp 16; Pulse Ox 95% ; jl7 18:00 BP 137 / 85; Pulse 65; Resp 14; Pulse Ox 96% on R/A; tw2 19:14 BP 136 / 72; Pulse 66; Resp 16; Pulse Ox 99% on R/A; Pain 0/10; aa1 20:06 BP 144 / 80; Pulse 68; Resp 14; Pulse Ox 97% on R/A; Pain 0/10; aa1 12:09 Body Mass Index 26.61 (79.38 kg, 172.72 cm) la1 12:30 pt placed on o2 via nc at 2L, provider notified, states he does have sleep apnea, tw2 pt was sleeping with mouth open at this time. ED Course: 12:00 Patient arrived in ED. mr 12:01 Jose Manuel Baum, is Private Physician. mr 12:08 Triage completed. la1 12:09 Arm band placed on right wrist. la1 12:12 Mery Lion, RN is Primary Nurse. tw2 12:14 Sotero Loco PA is PHCP. m 12:14 Marcus Torres MD is Attending Physician. jmm 12:23 Placed in gown. Bed in low position. Side rails up X2. Adult w/ patient. Cardiac tw2 monitor on. Pulse ox on. NIBP on. 12:23 Inserted saline lock: 22 gauge in left antecubital area, using aseptic technique. Blood tw2 collected. 12:[address] via stretcher. nj 12:49 CT completed. Patient tolerated procedure well. Patient moved back from CT. nj 12:49 CT Head Brain wo Cont In Process Unspecified. EDMS 13:07 EKG done, by computer technical specialist. reviewed by Sotero NIEVES. dt2 13:12 XRAY Chest (1 view) In Process Unspecified. EDMS 14:45 Patient moved to MRI via stretcher. em2 15:10 MRI Lumbar Spine wo Con In Process Unspecified. EDMS 15:58 Urine Microscopic Only Sent. tw2 17:40 Stone Protocol In Process Unspecified. EDMS 18:38 Repeat lab(s) drawn. by me, sent to lab. tm3 19:03 Report given to PILLO Goff. tw2 19:06 Primary Nurse role handed off by Mery Lion RN tw2 19:13 Shell Neal, RN is Primary Nurse. aa1 19:14 Arabella Domínguez MD is Hospitalizing Provider. m 19:25 Diet: Patient given juice. Tolerated well Pt given sandwich, chips, and a fruit cup. aa1 20:06 No provider procedures requiring assistance completed. Patient admitted, IV remains in aa1 place. Administered Medications: 13:02 Drug: NS 0.9% 500 ml Route: IV; Rate: bolus; Site: left antecubital; tw2 14:20 Follow up: Response: No adverse reaction; IV Status: Completed infusion; IV Intake: tw2 500ml 13:30 Drug: Tylenol 500 mg Route: PO; tw2 14:00 Follow up: Response: No adverse reaction tw2 18:00 Drug: NS 0.9% 500 ml Route: IV; Rate: bolus; Site: left antecubital; tw2 18:51 Follow up: Response: No adverse reaction; IV Status: Completed infusion; IV Intake: tw2 500ml 18:00 Drug: Zosyn 2.25 grams Route: IVPB; Infused Over: 60 mins; Site: left antecubital; tw2 18:51 Follow up: Response: No adverse reaction; IV Status: Completed infusion tw2 18:50 Drug: NS 0.9% 1000 ml Route: IV; Rate: 100 ml/hr; Site: left antecubital; jl7 20:22 Follow up: IV Status: Infusion continued upon admission aa1 Intake: 14:20 IV: 500ml; Total: 500ml. tw2 18:51 IV: 500ml; Total: 1000ml. tw2 15:30 86 ml on post void bladder scan, provider notified. tw2 Output: 15:30 Urine: 200ml (Sams); Total: 200ml. tw2 15:30 86 ml on post void bladder scan, provider notified. tw2 Outcome: 19:15 Decision to Hospitalize by Provider. [facility] 20:38 Admitted to Tele accompanied by tech, via wheelchair, room 223. aa1 20:38 Condition: good 20:38 Instructed on the need for admit, Demonstrated understanding of instructions. 20:39 Patient left the ED. aa1 Signatures: Dispatcher [employer] EDMS Isidoro Rodriguez tm3 Shell Neal, RN RN aa1 Sotero Loco PA PA jmm Genie Stevens mr Cantu, Jose em2 Freedom Torres RN RN la1 Mery Lion RN RN tw2 Rashaun Murrell Jahala, RN RN jl7 Cristin Renee dt2
[2018-04-30] MEDS ORDERED: ONDANSETRON 4 MG/2 ML VIAL IV PRN (20:14)
[2018-04-30] MEDS: HOME MED 1 EA UNK (Gabapentin [Gralise] 300 MG) PO SCH (21:00)
[2018-04-30] MEDS: NA CHLORIDE 0.9% 1,000 ML IV SCH (21:00)
[2018-04-30 21:08] VITALS: BMI 25.4
[2018-04-30] MEDS: DIVALPROEX DR 250 MG TAB PO SCH (22:05)
[2018-04-30] MEDS: ATORVASTATIN 20 MG TAB PO SCH (22:06)
[2018-04-30] MEDS: ACETAMINOPHEN 500 MG TAB PO PRN (22:06)
[2018-04-30] MEDS: METOPROLOL TAR 25 MG TAB PO SCH (22:06)
[2018-04-30] MEDS: DIVALPROEX DR 500MG TAB PO SCH (22:06)
[2018-05-01] MEDS: NA CHLORIDE 0.9% 1,000 ML IV SCH ×2 (01:25→06:13)
[2018-05-01] MEDS: ACETAMINOPHEN 500 MG TAB PO PRN ×2 (04:04→21:48)
[2018-05-01 05:36] LABS: Absolute Lymphocytes (CBC) 1.1 K/uL (0.7-4.9); Absolute Monocytes 0.8 K/uL (0.1-1.3); Absolute Neutrophil 4.4 K/uL (1.8-8.0); Basophils % 0.5 % (0-1.3); Hematocrit 39.3 % (39.6-49.0); Lymphocytes % 17.2 % (15.3-44.8); MCH 36.7 pg (27.0-35.0); MCV 111.9 fL (80-100); MPV 7.9 fL (7.6-11.3); RBC Red Blood Cell Count 3.51 M/uL (4.33-5.43)
[2018-05-01 05:58] LABS: Albumin 2.4 g/dL (3.4-5.0); Bilirubin Total 0.3 mg/dL (0.2-1.0); Potassium 4.5 mmol/L (3.5-5.1); Protein, Total 5.5 g/dL (6.4-8.2)
[2018-05-01] MEDS: MORPHINE 2 MG/ML SYR IV PRN ×2 (06:21→10:39)
[2018-05-01 06:39] LABS: Blood Morphology Comment NOTED (NOT SEEN); Macrocytosis 2+; Platelet Estimate DECR; Urine White Blood Cell Casts OK
--- NOTE | 2018-05-01 08:43 | P.HP ---
Certification for Inpatient Patient admitted to: Inpatient With expected LOS: >2 Midnights Patient will require the following post-hospital care: Alf Practitioner: I am a practitioner with admitting privileges, knowledge of patient current condition, hospital course, and medical plan of care. Services: Services provided to patient in accordance with Admission requirements found in Title 42 Section 412.3 of the Code of Federal Regulations Patient History Date of Service: 04/30/18 Reason for admission: Diarrhea/diverticulitis History of Present Illness: Patient is a 63-year-old gentleman who is well known to me from multiple admissions in the past. He comes into the hospital with abdominal pain, nausea , and diarrhea. His symptoms have not been improving and he has been feeling weak and lethargic. He also has chronic back pain and he has had lower extremity weakness. They have not really been able to figure out what was causing his back pain. His symptoms have been getting gradually worse. He came into the emergency room for further evaluation and his workup revealed that he had diverticulitis. Patient will be admitted for IV antibiotic therapy as well as hydration. Will also try to get his records from his primary care provider. He is weak from his back issues and he is not able to get around as well as he was. He is thinking that he may need prolonged therapy at the nursing facility. Will get physical therapy evaluation while in the hospital. Allergies promethazine HCl [From Phenergan] Allergy (Severe, Verified 04/30/18 21:07) Shortness of breath chlorpromazine HCl [From Thorazine] Allergy (Intermediate, Verified 02/22/18 13: 09) Hives/Rash Home Medications: Divalproex [Depakote Delayed Release*] 1,000 mg PO BEDTIME 11/09/11 Divalproex [Depakote Delayed Release*] 250 mg PO BEDTIME 11/09/11 Sertraline HCl [Zoloft] 100 mg PO DAILY 11/09/11 Simvastatin 40 mg PO BEDTIME 11/09/11 Mirtazapine [Remeron] 30 mg PO BEDTIME #30 tab 05/13/12 Metoprolol Tartrate [Lopressor*] 75 mg PO BEDTIME 11/02/12 Aspirin 325 mg PO DAILY 02/22/18 Gabapentin [Gralise] 300 mg PO BID 02/22/18 Metoprolol Tartrate [Lopressor*] 50 mg PO DAILY WITH BREAKFAST 04/30/18 - Past Medical/Surgical History Has patient received pneumonia vaccine in the past: No Diabetic: No -: sleep apnea -: ckd -: cvd -: manic bipolar -: chonic back/neck issues -: hypertension -: hyperlipidemia -: insomnia -: dvt right calf (knee fracture) -: cabg -: cholecystectomy - Family History Mother Medical History: Heart disease Notes: polycythemia Father Medical History: Other (see notes) Notes: pancreatic cancer - Social History Smoking Status: Current every day smoker Place of Residence: Home Review of Systems 10-point ROS is otherwise unremarkable Physical Examination - Vital Signs Temperature: 98.0 F Blood Pressure: 127/71 Pulse: 63 Respirations: 18 Pulse Ox (%): 93 - Physical Exam General: Alert, In no apparent distress, Oriented x3 HEENT: Atraumatic, PERRLA, Mucous membr. moist/pink, EOMI, Sclerae nonicteric Neck: Supple, 2+ carotid pulse no bruit, No LAD, Without JVD or thyroid abnormality Respiratory: Clear to auscultation bilaterally, Normal air movement, Crackles/ rales Cardiovascular: Regular rate/rhythm, Normal S1 S2, Systolic murmur Gastrointestinal: Normal bowel sounds, Soft and benign, Non-distended, Tenderness Musculoskeletal: No clubbing, No swelling, No tenderness Integumentary: No rashes Neurological: Normal speech, Normal tone, Sensation intact, Cranial nerves 3-12 intact, Normal affect, Abnormal gait, Abnormal strength Lymphatics: No axilla or inguinal lymphadenopathy - Studies Laboratory Data (last 24 hrs) 04/30/18 18:10: Uric Acid 8.6 H 04/30/18 12:23: PT 11.7, INR 0.99, APTT 27.8 04/30/18 12:23: WBC 8.4, Hgb 12.5 L, Hct 38.1 L, Plt Count 135 L 04/30/18 12:23: Sodium 143, Potassium 4.6, BUN 38 H, Creatinine 3.60 H, Glucose 69 L, Magnesium 2.5 H, Total Bilirubin 0.4, AST 17, ALT 15, Alkaline Phosphatase 101, Lipase 108 Assessment & Plan - Problems (Diagnosis) (1) Abdominal pain Current Visit: Yes Status: Acute (2) Diverticulitis Current Visit: Yes Status: Acute (3) Diarrhea Current Visit: Yes Status: Acute (4) Generalized weakness Current Visit: Yes Status: Acute (5) Low back pain Current Visit: Yes Status: Acute - Plan -aggressive IV hydration -IV antibiotics -outpatient colonoscopy -pain controlled -stool studies -surgery consultation if pain does not improve -CT abdomen pelvis pending Discharge Plan: Snf Plan to discharge in: Greater than 2 days - Advance Directives Does patient have a Living Will: No Does patient have a Durable POA for Healthcare: No - Code Status/Comfort Care Code Status Assessed: Yes Code Status: Full Code Critical Care: No Time Spent Managing PTS Care (In Minutes): 60
[2018-05-01] MEDS: HOME MED 1 EA UNK (Gabapentin [Gralise] 300 MG) PO SCH ×2 (09:00→20:34)
[2018-05-01] MEDS ORDERED: PNEUMOCOCCAL VACCINE 0.5 ML IMVAC ONE (10:00)
[2018-05-01] MEDS: METOPROLOL TAR 25 MG TAB PO SCH ×2 (10:35→21:00)
[2018-05-01] MEDS: AMLODIPINE 10 MG TAB PO SCH (10:36)
[2018-05-01] MEDS: SERTRALINE HCL 100 MG TAB PO SCH (10:36)
[2018-05-01] MEDS: ASPIRIN 325 MG TAB PO SCH (10:36)
[2018-05-01] MEDS: Ringers Lactate 1,000 ML IV SCH (13:00)
--- NOTE | 2018-05-01 15:07 | P.PN ---
Subjective Date of Service: 05/01/18 Chief Complaint: Diarrhea/diverticulitis Subjective: No C/O voiced, Ambulating, Improving, Working w/ PT, Doing well Review of Systems General: As per HPI Physical Examination - Vital Signs Temperature: 97.1 F Blood Pressure: 110/60 Pulse: 57 Respirations: 18 Pulse Ox (%): 92 - Physical Exam General: Alert, In no apparent distress, Oriented x3 HEENT: Atraumatic, PERRLA, EOMI Neck: Supple, JVD not distended Respiratory: Clear to auscultation bilaterally, Normal air movement Cardiovascular: Regular rate/rhythm, Normal S1 S2 Gastrointestinal: Normal bowel sounds, No tenderness Musculoskeletal: No tenderness Integumentary: No rashes Neurological: Normal speech, Normal tone, Normal affect, Abnormal strength Lymphatics: No axilla or inguinal lymphadenopathy - Studies Laboratory Data (last 24 hrs) 04/30/18 18:10: Uric Acid 8.6 H Medications List Reviewed: Yes Assessment & Plan - Problems (Diagnosis) (1) Generalized weakness Current Visit: Yes Status: Acute Plan: Most likely 2.2 to Dehydration 2.2 to Diarrhea -Currently still c/o of weakness. -Working with PT. -Will await Reccs for placement vs DC home (2) Diverticulitis Current Visit: Yes Status: Acute Plan: Diverticulitis with Diarrhea -IV cipro and flagyl -IV fluids for Dehydration (3) Diarrhea Current Visit: Yes Status: Acute Plan: Diarrhea now improved but still having 3 to 4 episodes since this AM. Most Likely 2.2 to Diverticulitis -IV fluids for now -IV cipro and flagyl Qualifiers: Diarrhea type: presumed infectious Qualified Code(s): R19.7 - Diarrhea, unspecified (4) Chronic kidney disease Current Visit: Yes Status: Chronic Plan: Acute On Chronic Kidney Disease with metabolic Acidosis -IV fluids LR at 100mol/hr -Nephrology consulted. Appreciate Reccs Qualifiers: Chronic kidney disease stage: stage 3 (moderate) Qualified Code(s): N18.3 - Chronic kidney disease, stage 3 (moderate) (5) Bipolar disorder Onset Date: 02/23/18 Current Visit: No Status: Chronic Qualifiers: Active/Remission status: remission status unspecified Qualified Code(s): F31.9 - Bipolar disorder, unspecified (6) CAD (coronary artery disease) Onset Date: 02/23/18 Current Visit: No Status: Chronic Qualifiers: Coronary Disease-Associated Artery/Lesion type: [place] artery [place] vs. transplanted heart: [place] heart
[2018-05-01] MEDS: METRONIDAZOLE 500mg IVPB 500 MG/100 ML BAG IV SCH (17:03)
--- NOTE | 2018-05-01 19:29 | CON ---
Date of Consultation: 05/01/2018 Reason For Consultation: Acidosis, elevated BUN and creatinine. History Of Present Illness: This is a 63-year-old gentleman, well known to us from the office follow up with Dr. Valenzuela with significant past medical history of coronary artery disease, status post CABG; hypertension; chronic kidney disease, stage 3B/4 secondary to hypertension; nephrosclerosis; renal vascular disease; baseline creatinine 2.5; hyperlipidemia; peripheral vascular disease; bipolar. Patient was in his regular state of health. Last week when patient had diarrhea for 2-3 days was then having nausea without any vomiting and urine incontinence. His symptoms get worse. For that reason, reported to the emergency room. In the emergency room, primary workup show worsening kidney function. Creatinine was up to 3.6, and severe acidosis. ABG showing pH 7.25 for that reason, we have been consulted. Patient saying he is not eating that well for the last few days. We started the patient on IV hydration. Creatinine down from 3.6 to 3. Patient is slightly feeling better. Tolerating diet. Past Medical History: Include: 1. Hypertension. 2. Hyperlipidemia. 3. Carotid artery disease complicated with congestive heart failure, status post CABG. 4. Obstructive sleep apnea. 5. Hypertension. 6. Chronic kidney disease, stage 3B/4 secondary to cardiorenal. Baseline creatinine 2.5, with GFR of around at 22. Past Surgical History: Include: 1. CABG back in 2010. 2. Cholecystectomy. Allergies: TO PHENERGAN. Family History: Positive for pancreatic cancer, hypertension, and polycythemia vera. Social History: Active smoker. Denied alcohol. Denied drug abuse. Review of Systems: Head and Neck: No red eye. No ear pain GI: Has nausea, no vomiting. Has decreased intake. Has diarrhea. : Has incontinence. GROCERY CASHIER: Not applicable. Respiratory: No shortness of breath. Cardiovascular: No chest pain. NEURO: Weakness. MUSCULOSKELETAL: No joint pain. Endocrine: No polydipsia. Skin: No rash. Physical Examination: Vital Signs: When I saw the patient; blood pressure 127/71, pulse of 63. There is no low blood pressure, afebrile. Chest: Clear to auscultation. Heart: S1, S2. Regular. Abdomen: Soft, nontender. Extremities: No edema. Laboratory Data: On admission; sodium 143, potassium 4.6, bicarb 25, chloride 112, BUN 38, creatinine 3.6. GFR of 17. Calcium 8.6, magnesium 2.5. BNP 3186. Procalcitonin was negative. ABG; pH 7.28, CO2 of 46, O2 of 74. Base excess -4. Urinalysis was negative for infection. WBC 6.4, hemoglobin and hematocrit 12.9/39.3, platelets 112. Current Medications: Include: 1. Amlodipine. 2. Atorvastatin. 3. Metoprolol 75 b.i.d. 4. Depakote. 5. Sertraline. Laboratory Data: CT was negative for obstruction or any acute etiology possible of prostatitis. Assessment And Plan: 1. Acute kidney injury on chronic advanced kidney disease secondary to prerenal gastrointestinal loss. I am going to agreed with current IV fluid and we will monitor the patient. 2. Acidosis with contraction alkalosis. The acidosis secondary to renal failure, gastrointestinal loss. The contraction alkalosis secondary to dehydration. I agree with the IV fluid. We will continue to monitor the patient. 3. Hypertension controlled, optimal. Continue current medications. 4. Possible prostatitis. I again start the patient on Cipro. We will follow up the patient. 5. Coronary artery disease, congestive heart failure. We will follow up with primary. 6. Hypernatremia, marginal. We change IV fluid. We will follow up. 7. Hypokalemia. We will monitor after supplement. Thank you Dr. Baum for allowing us to participate in the care of your patient. DONN Voice ID: [id number] Report ID: [id number] KERI
[2018-05-01] MEDS: DIVALPROEX DR 250 MG TAB PO SCH (20:33)
[2018-05-01] MEDS: Ciprofloxacin 200mg IV 200 MG/100 ML IV.SOLN. IV SCH (20:33)
[2018-05-01] MEDS: ATORVASTATIN 20 MG TAB PO SCH (20:33)
[2018-05-01] MEDS: DIVALPROEX DR 500MG TAB PO SCH (20:34)
[2018-05-01] MEDS: MIRTAZAPINE 15 MG TAB PO SCH (23:04)
[2018-05-02] MEDS: METRONIDAZOLE 500mg IVPB 500 MG/100 ML BAG IV SCH ×3 (00:47→16:46)
[2018-05-02 05:08] LABS: Albumin 2.1 g/dL (3.4-5.0); Phosphorus 3.2 mg/dL (2.5-4.9); Potassium 4.5 mmol/L (3.5-5.1)
--- NOTE | 2018-05-02 06:20 | P.PN ---
Subjective Date of Service: 05/01/18 Patient is still having diarrhea. However, with intravenous hydration his symptoms have improved. He has developed hypernatremia. He also has significant hypoalbuminemia and he has had some weight loss. along with his lower extremity weakness patient will still need to be managed inpatient. Review of Systems 10-point ROS is otherwise unremarkable Physical Examination - Vital Signs Temperature: 97.5 F Blood Pressure: 112/55 Pulse: 53 Respirations: 16 Pulse Ox (%): 90 - Physical Exam General: Alert, In no apparent distress, Oriented x3 - Studies Medications List Reviewed: Yes Assessment & Plan - Problems (Diagnosis) (1) Abdominal pain Current Visit: Yes Status: Acute (2) Diverticulitis Current Visit: Yes Status: Acute (3) Diarrhea Current Visit: Yes Status: Acute Qualifiers: Diarrhea type: presumed infectious Qualified Code(s): R19.7 - Diarrhea, unspecified (4) Generalized weakness Current Visit: Yes Status: Acute (5) Low back pain Current Visit: Yes Status: Acute (6) Hypoalbuminemia Current Visit: Yes Status: Acute (7) Hypernatremia Current Visit: Yes Status: Acute - Plan -continue with IV hydration -continue with IV antibiotics -PT eval -nutritional supplements -if weight loss continues may need further work-up - Advance Directives Does patient have a Living Will: No Does patient have a Durable POA for Healthcare: No - Code Status/Comfort Care Code Status: Full Code
[2018-05-02] MEDS: METOPROLOL TAR 25 MG TAB PO SCH ×2 (09:00→20:50)
[2018-05-02] MEDS: HOME MED 1 EA UNK (Gabapentin [Gralise] 300 MG) PO SCH (09:00)
[2018-05-02] MEDS: ASPIRIN 325 MG TAB PO SCH (09:52)
[2018-05-02] MEDS: SERTRALINE HCL 100 MG TAB PO SCH (09:53)
[2018-05-02] MEDS: AMLODIPINE 10 MG TAB PO SCH (09:53)
[2018-05-02] MEDS: Ciprofloxacin 200mg IV 200 MG/100 ML IV.SOLN. IV SCH ×2 (09:55→20:49)
[2018-05-02] MEDS: Ringers Lactate 1,000 ML IV SCH (09:55)
--- NOTE | 2018-05-02 11:51 | P.PN ---
Subjective Date of Service: 05/02/18 Chief Complaint: Diarrhea/diverticulitis Subjective: Tolerating diet, Ambulating, Working w/ PT, Doing well, Other ( Still C/O of having generailzed weakness. Will benefit from SNF placement if accepted.) Review of Systems General: As per HPI Physical Examination - Vital Signs Temperature: 97.9 F Blood Pressure: 160/80 Pulse: 56 Respirations: 17 Pulse Ox (%): 95 - Physical Exam General: Alert, In no apparent distress, Oriented x3 HEENT: Atraumatic, PERRLA, EOMI Neck: Supple, JVD not distended Respiratory: Clear to auscultation bilaterally, Normal air movement Cardiovascular: Regular rate/rhythm, Normal S1 S2 Gastrointestinal: Normal bowel sounds, No tenderness Musculoskeletal: No tenderness Integumentary: No rashes Neurological: Normal speech, Normal tone, Normal affect, Abnormal strength Lymphatics: No axilla or inguinal lymphadenopathy - Studies Medications List Reviewed: Yes Assessment & Plan - Problems (Diagnosis) (1) Generalized weakness Current Visit: Yes Status: Acute Plan: Most likely 2.2 to Dehydration 2.2 to Diarrhea -Currently still c/o of weakness. -Working with PT but having Unsteady gait and High risk for fall -Will await Reccs for placement vs DC home (2) Diverticulitis Current Visit: Yes Status: Acute Plan: Diverticulitis with Diarrhea -IV cipro and flagyl -IV fluids for Dehydration (3) Diarrhea Current Visit: Yes Status: Acute Plan: Diarrhea now improved but still having 1 to 2 episodes since this AM. Most Likely 2.2 to Diverticulitis -IV fluids for now -IV cipro and flagyl Qualifiers: Diarrhea type: presumed infectious Qualified Code(s): R19.7 - Diarrhea, unspecified (4) Chronic kidney disease Current Visit: Yes Status: Chronic Plan: Acute On Chronic Kidney Disease with metabolic Acidosis -IV fluids LR at 100ml/hr. Elevated Na and CL. Will change Fluids after consulting Nephrology -Nephrology consulted. Appreciate Reccs Qualifiers: Chronic kidney disease stage: stage 3 (moderate) Qualified Code(s): N18.3 - Chronic kidney disease, stage 3 (moderate) (5) Bipolar disorder Onset Date: 02/23/18 Current Visit: No Status: Chronic Qualifiers: Active/Remission status: remission status unspecified Qualified Code(s): F31.9 - Bipolar disorder, unspecified (6) CAD (coronary artery disease) Onset Date: 02/23/18 Current Visit: No Status: Chronic Qualifiers: Coronary Disease-Associated Artery/Lesion type: [place] artery [place] vs. transplanted heart: [place] heart Discharge Plan: [facility] Plan to discharge in: 24 Hours - Code Status/Comfort Care Code Status Assessed: Yes Critical Care: No
[2018-05-02] MEDS: GABAPENTIN 300 MG CAP PO SCH ×2 (14:00→20:49)
--- NOTE | 2018-05-02 16:45 | PN ---
Date of Progress Note: 05/02/2018 Subjective: The patient doing well. No nausea. No vomiting. No abdominal pain. Diarrhea has been stopped. Objective: Vital Signs: Blood pressure 160/80, pulse of 56, afebrile. Chest: Clear to auscultation. Heart: S1, S2. Regular. Abdomen: Soft, nontender. Extremities: No edema. Neurologic: Alert, oriented. Nonfocal. Laboratory Data: WBC 6.4, H and H 12.9/39.3, platelet 112. Sodium 146, potassium 4.6, bicarb 25, BU N 33, creatinine 2.4, back to baseline. Calcium 8, phosphorus 3.2. Medications: Current medications the patient on it include: 1.Aspirin. 2.Ciprofloxacin. 3.Metronidazole. 4.LR. 5.Amlodipine. 6.Metoprolol 75 b.i.d. 7.Sertraline. 8.Mirtazapine. 9.Zofran. 10.Gabapentin. The patient had good urine output of 1700. Assessment And Plan: 1.Acute kidney injury secondary to prerenal, secondary to gastrointestinal loss. Recover resolved. I am going to go ahead and discontinue IV fluid. 2.Hypernatremia, resolved. Discontinue LR. 3.Contraction alkalosis with metabolic acidosis secondary to renal failure, resolved. We will ming nue to monitor off IV fluid. 4.Colitis. Continue current antibiotic. Consider switching to p.o. 5.Hypertension, controlled. I am going to go ahead and add for the patient low dose of hydralazine and we will follow up. The case was discussed with the patient who verbalized understanding. The patient cleared from the r enal standpoint for discharge planning to follow up in the office in 2-3 weeks. DONN Voice ID: [id number] Report ID: [id number]
[2018-05-02] MEDS: ACETAMINOPHEN 500 MG TAB PO PRN (16:46)
[2018-05-02] MEDS: ATORVASTATIN 20 MG TAB PO SCH (20:49)
[2018-05-02] MEDS: DIVALPROEX DR 250 MG TAB PO SCH (20:49)
[2018-05-02] MEDS: DIVALPROEX DR 500MG TAB PO SCH (20:49)
[2018-05-02] MEDS: HYDRALAZINE HCL 10 MG TABLET PO SCH (20:50)
[2018-05-02] MEDS: MIRTAZAPINE 15 MG TAB PO SCH (20:50)
[2018-05-03] MEDS: METRONIDAZOLE 500mg IVPB 500 MG/100 ML BAG IV SCH ×3 (00:03→17:46)
[2018-05-03 07:07] LABS: Albumin 2.5 g/dL (3.4-5.0); Phosphorus 2.6 mg/dL (2.5-4.9); Potassium 4.8 mmol/L (3.5-5.1)
[2018-05-03] MEDS: Ciprofloxacin 200mg IV 200 MG/100 ML IV.SOLN. IV SCH ×2 (09:51→20:00)
[2018-05-03] MEDS: GABAPENTIN 300 MG CAP PO SCH ×2 (09:52→20:08)
[2018-05-03] MEDS: ASPIRIN 325 MG TAB PO SCH (09:52)
[2018-05-03] MEDS: METOPROLOL TAR 25 MG TAB PO SCH ×2 (09:52→20:00)
[2018-05-03] MEDS: HYDRALAZINE HCL 10 MG TABLET PO SCH ×2 (09:53→20:01)
[2018-05-03] MEDS: SERTRALINE HCL 100 MG TAB PO SCH (09:53)
[2018-05-03] MEDS: AMLODIPINE 10 MG TAB PO SCH (09:53)
--- NOTE | 2018-05-03 12:25 | P.PN ---
Subjective Date of Service: 05/03/18 Chief Complaint: Diarrhea/diverticulitis Pt seen and examined at bedside with RN. Chart reviewed -Overnight No C.o Offer. -Denies Diarrhea or dizzness today -Awaiting PT today Review of Systems 10-point ROS is otherwise unremarkable General: As per HPI Physical Examination - Vital Signs Temperature: 97.2 F Blood Pressure: 137/77 Pulse: 63 Respirations: 18 Pulse Ox (%): 95 - Physical Exam General: Alert, In no apparent distress HEENT: Atraumatic, PERRLA, EOMI Neck: Supple, JVD not distended Respiratory: Clear to auscultation bilaterally, Normal air movement Cardiovascular: Regular rate/rhythm, Normal S1 S2 Gastrointestinal: Normal bowel sounds, No tenderness Musculoskeletal: No tenderness Integumentary: No rashes Neurological: Normal speech, Normal tone, Normal affect Lymphatics: No axilla or inguinal lymphadenopathy - Studies Medications List Reviewed: Yes Assessment & Plan - Problems (Diagnosis) (1) Generalized weakness Onset Date: 05/03/18 Current Visit: Yes Status: Acute Plan: Most likely 2.2 to Dehydration 2.2 to Diarrhea -Currently feels better. -Working with PT but having Unsteady gait and High risk for fall. Ambulating limited -Will await Reccs for placement vs DC home (2) Diverticulitis Onset Date: 05/03/18 Current Visit: Yes Status: Acute Plan: Diverticulitis with Diarrhea -IV cipro and flagyl (3) Diarrhea Onset Date: 05/03/18 Current Visit: Yes Status: Acute Plan: Diarrhea now improved but still having 1 to 2 episodes since this AM. Most Likely 2.2 to Diverticulitis -IV cipro and flagyl Qualifiers: Diarrhea type: presumed infectious Qualified Code(s): R19.7 - Diarrhea, unspecified (4) Chronic kidney disease Onset Date: 05/03/18 Current Visit: Yes Status: Chronic Plan: Acute On Chronic Kidney Disease with metabolic Acidosis -Nephrology consulted. Appreciate Reccs -Improved today Qualifiers: Chronic kidney disease stage: stage 3 (moderate) Qualified Code(s): N18.3 - Chronic kidney disease, stage 3 (moderate) (5) Bipolar disorder Onset Date: 02/23/18 Current Visit: No Status: Chronic Qualifiers: Active/Remission status: remission status unspecified Qualified Code(s): F31.9 - Bipolar disorder, unspecified (6) CAD (coronary artery disease) Onset Date: 02/23/18 Current Visit: No Status: Chronic Qualifiers: Coronary Disease-Associated Artery/Lesion type: [place] artery [place] vs. transplanted heart: creek heart Discharge Plan: Other Plan to discharge in: 24 Hours - Code Status/Comfort Care Code Status Assessed: Yes Critical Care: No
--- NOTE | 2018-05-03 15:43 | PN ---
Date of Progress Note: 05/03/2018 Chief Complaint: Acute kidney injury on chronic kidney disease. Subjective: The patient developed prerenal azotemia, nonoliguric ATN secondary to hypovolemia, renal hypoperfusion triggered by a gastrointestinal fluid loss. Renal function has been gradually improving. The patient completed IV fluids. The patient was found to have hypernatremia, but it resolved with adequate hydration. The patient is on antibiotics for colitis. Review of Systems: The patient denies fever or chills. The patient is complaining of fatigue. Physical Examination: Lungs: Clear to auscultation bilaterally. Heart: S1 and S2. Abdomen: Soft, benign. Extremities: No edema. Laboratory Work: Hemoglobin 12.9, WBC 6.4, platelet count is 112,000. Sodium 148, potassium 4.8, chloride 117, CO2 25, BUN 27, creatinine 2.2, glucose 88, calcium 8.5, phosphorus 2.6, albumin 2.5. Impression And Plan: 1. Hypernatremia and sodium level is up to 148. Increase p.o. fluid intake. The patient tolerates p.o. fluid intake. 2. Hypertension. Blood pressure is elevated. If fluctuating, continue blood pressure medication. 3. Acute kidney injury on chronic kidney disease. Creatinine level improved from 3.0 to 2.2. The patient will continue p.o. hydration. Plan is to monitor kidney function. The patient will continue IV antibiotics for colitis. TREE/SASHA Voice ID: [id number] Report ID: [id number] MTDD
[2018-05-03] MEDS: DIVALPROEX DR 250 MG TAB PO SCH (20:01)
[2018-05-03] MEDS: DIVALPROEX DR 500MG TAB PO SCH (20:01)
[2018-05-03] MEDS: MIRTAZAPINE 15 MG TAB PO SCH (20:01)
[2018-05-03] MEDS: ATORVASTATIN 20 MG TAB PO SCH (20:01)
[2018-05-04] MEDS: METRONIDAZOLE 500mg IVPB 500 MG/100 ML BAG IV SCH ×2 (00:47→09:51)
[2018-05-04 06:00] LABS: Albumin 2.3 g/dL (3.4-5.0); Phosphorus 2.2 mg/dL (2.5-4.9); Potassium 4.8 mmol/L (3.5-5.1)
[2018-05-04] MEDS: AMLODIPINE 10 MG TAB PO SCH (09:51)
[2018-05-04] MEDS: METOPROLOL TAR 25 MG TAB PO SCH (09:51)
[2018-05-04] MEDS: ASPIRIN 325 MG TAB PO SCH (09:51)
[2018-05-04] MEDS: GABAPENTIN 300 MG CAP PO SCH (09:51)
[2018-05-04] MEDS: HYDRALAZINE HCL 10 MG TABLET PO SCH (09:51)
[2018-05-04] MEDS: Ciprofloxacin 200mg IV 200 MG/100 ML IV.SOLN. IV SCH (09:51)
[2018-05-04] MEDS: SERTRALINE HCL 100 MG TAB PO SCH (09:51)
[2018-05-04 11:37] VITALS: O2SAT 92
[2018-05-04 12:28] VITALS: BP 120/74; TEMP 97.4
--- NOTE | 2018-05-04 15:24 | P.DS ---
Admission Date: 04/30/18 Discharge Date: 05/04/18 Disposition: ROUTINE DISCHARGE Discharge Condition: GOOD Reason for Admission: Diarrhea/diverticulitis - Problems (1) Generalized weakness Onset Date: 05/03/18 Status: Acute (2) Diverticulitis Onset Date: 05/03/18 Status: Acute (3) Diarrhea Onset Date: 05/03/18 Status: Acute Qualifiers: Diarrhea type: presumed infectious Qualified Code(s): R19.7 - Diarrhea, unspecified (4) Chronic kidney disease Onset Date: 05/03/18 Status: Chronic Qualifiers: Chronic kidney disease stage: stage 3 (moderate) Qualified Code(s): N18.3 - Chronic kidney disease, stage 3 (moderate) (5) Bipolar disorder Onset Date: 02/23/18 Status: Chronic Qualifiers: Active/Remission status: remission status unspecified Qualified Code(s): F31.9 - Bipolar disorder, unspecified (6) CAD (coronary artery disease) Onset Date: 02/23/18 Status: Chronic Qualifiers: Coronary Disease-Associated Artery/Lesion type: [place] artery [place] vs. transplanted heart: [place] heart Brief History of Present Illness: Patient is a 63-year-old gentleman who is well known to me from multiple admissions in the past. He comes into the hospital with abdominal pain, nausea , and diarrhea. His symptoms have not been improving and he has been feeling weak and lethargic. He also has chronic back pain and he has had lower extremity weakness. They have not really been able to figure out what was causing his back pain. His symptoms have been getting gradually worse. He came into the emergency room for further evaluation and his workup revealed that he had diverticulitis. Patient will be admitted for IV antibiotic therapy as well as hydration. Will also try to get his records from his primary care provider. He is weak from his back issues and he is not able to get around as well as he was. He is thinking that he may need prolonged therapy at the nursing facility. Will get physical therapy evaluation while in the hospital. Hospital Course: Overall during stay patient stable Patient is initially admitted to the hospital for generalized weakness and was found to have acute diverticulitis. Patient was started on IV Cipro and Flagyl and PT was consulted. The patient did fairly well here in the hospital diarrhea resolved nausea vomiting resolved and patient was able to ambulate 260 feet with a rolling walker with minimal assist and thus was discharged home under stable condition. Patient was given a prescription for Cipro and Flagyl to be taken for total of 10 days. Patient was asked to follow up with a primary care provider. Initially when patient was admitted there was a consideration for sniff placement however since patient ambulated so well with physical therapy home health was arranged and patient then was discharged home under stable condition. Vital Signs/Physical Exam: Temp Pulse Resp BP Pulse Ox 97.4 F 62 16 120/74 95 05/04/18 12:00 05/04/18 12:00 05/04/18 12:00 05/04/18 12:00 05/04/18 12:00 General: Alert, In no apparent distress HEENT: Atraumatic, PERRLA, EOMI Neck: Supple, JVD not distended Respiratory: Clear to auscultation bilaterally, Normal air movement Cardiovascular: Regular rate/rhythm, Normal S1 S2 Gastrointestinal: Normal bowel sounds, No tenderness Musculoskeletal: No tenderness Integumentary: No rashes Neurological: Normal speech, Normal tone, Normal affect Lymphatics: No axilla or inguinal lymphadenopathy Laboratory Data at Discharge: WBC 6.4 K/uL (4.3-10.9) D 05/01/18 05:19 Hgb 12.9 g/dL (13.6-17.9) L 05/01/18 05:19 Hct 39.3 % (39.6-49.0) L 05/01/18 05:19 Plt Count 112 K/uL (152-406) L 05/01/18 05:19 PT 11.7 SECONDS (9.5-12.5) 04/30/18 12:23 INR 0.99 04/30/18 12:23 APTT 27.8 SECONDS (24.3-36.9) 04/30/18 12:23 Sodium 148 mmol/L (136-145) H 05/04/18 04:58 Potassium 4.8 mmol/L (3.5-5.1) 05/04/18 04:58 BUN 25 mg/dL (7-18) H 05/04/18 04:58 Creatinine 2.40 mg/dL (0.55-1.3) H 05/04/18 04:58 Glucose 80 mg/dL (74-106) 05/04/18 04:58 Uric Acid 8.6 mg/dL (3.5-7.2) H 04/30/18 18:10 Phosphorus 2.2 mg/dL (2.5-4.9) L 05/04/18 04:58 Magnesium 2.5 mg/dL (1.8-2.4) H 04/30/18 12:23 Total Bilirubin 0.3 mg/dL (0.2-1.0) 05/01/18 05:19 AST 12 U/L (15-37) L 05/01/18 05:19 ALT 12 U/L (12-78) 05/01/18 05:19 Alkaline Phosphatase 88 U/L (45-117) 05/01/18 05:19 Lipase 108 U/L (73-393) 04/30/18 12:23 Home Medications: Divalproex [Depakote Delayed Release*] 1,000 mg PO BEDTIME 11/09/11 Divalproex [Depakote Delayed Release*] 250 mg PO BEDTIME 11/09/11 Sertraline HCl [Zoloft] 100 mg PO DAILY 11/09/11 Simvastatin 40 mg PO BEDTIME 11/09/11 Mirtazapine [Remeron] 30 mg PO BEDTIME #30 tab 05/13/12 Aspirin 325 mg PO DAILY 02/22/18 Metoprolol Tartrate [Lopressor*] 50 mg PO DAILY WITH BREAKFAST 04/30/18 Gabapentin [Neurontin*] 1 cap PO BID 05/02/18 Amlodipine [Norvasc*] 10 mg PO DAILY #30 tab 05/04/18 Ciprofloxacin HCl [Cipro 500 MG Tablet] 500 mg PO DAILY #10 tab 05/04/18 metroNIDAZOLE [Flagyl] 500 mg PO Q8H #30 tablet 05/04/18 New Medications: Amlodipine [Norvasc*] 10 mg PO DAILY #30 tab Ciprofloxacin HCl [Cipro 500 MG Tablet] 500 mg PO DAILY #10 tab metroNIDAZOLE [Flagyl] 500 mg PO Q8H #30 tablet Patient Discharge Instructions: Please f.u with GI doc for f.u appt for your diverticulitis. You will need a colonoscopy scheduled in 6 weeks from the discharge. New medication. Amlodipine 10mg daily. Ciprofloxacin 500mg daily. Flagyl 500mg q8h Diet: Regular Activity: Ad sergey Followup: Dae Beaver MD [ASSOCIATE-ACTIVE - CAN ADMIT] - 1 Week
== END 2018-05-04 13:45 | disposition home or self-care (01) | DRG 392 ==
LOC: ER 11:55 → ERHOLD 19:18 → 2ND 20:30
PROVIDERS: ADMIT Hospitalist; ATTEND Family Medicine
DX: K57.32 Diverticulitis of large intestine without perforation or abscess without bleeding (principal); E87.2 Acidosis; N17.9 Acute kidney failure, unspecified; E87.0 Hyperosmolality and hypernatremia; I13.0 Hypertensive heart and chronic kidney disease with heart failure and stage 1 through stage 4 chronic kidney disease, or unspecified chronic kidney disease; E86.0 Dehydration; N18.3 Chronic kidney disease, stage 3 (moderate); I25.10 Atherosclerotic heart disease of native coronary artery without angina pectoris; F31.9 Bipolar disorder, unspecified; F17.210 Nicotine dependence, cigarettes, uncomplicated; E78.5 Hyperlipidemia, unspecified; G47.00 Insomnia, unspecified; I50.9 Heart failure, unspecified; N41.9 Inflammatory disease of prostate, unspecified; E88.09 Other disorders of plasma-protein metabolism, not elsewhere classified; I73.9 Peripheral vascular disease, unspecified; G47.33 Obstructive sleep apnea (adult) (pediatric); M54.5 Low back pain; Z86.718 Personal history of other venous thrombosis and embolism; Z79.82 Long term (current) use of aspirin; Z95.1 Presence of aortocoronary bypass graft
CPT/HCPCS: 36415; 70450; 71045; 72148; 74176; 76377; 80048; 80053; 80069; 80076; 81003; 81015; 82140; 82550; 82553; 82805; 83690; 83735; 83880; 84145; 84484; 84550; 85025; 85610; 85730; 87040; 93005; 96361; 96365; 97163; 99285; J0744; J2270; J2543; J7030

== ENCOUNTER 2018-05-23 21:23 | Observation (INO) | payer OTHER ==
--- OUTSIDE RECORDS SUMMARY | 2018-05-23 21:25 | XMS REPORT ---
[...] End Status Dosage System Date Date Colace [facility] 24984883561 100 MG Orally Active 1 capsule as Once a day needed Simvastatin [facility] 69057370640 40 MG Orally Active 1 tablet in Once a day the evening Metoprolol [facility] 02122477603 50 PO BID Active TAKE ONE Tartrate TABLET BY MOUTH TWICE A DAY. TAKE WITH METOPROLOL 25MG TO EQUAL TOTAL DOSE OF 75MG TWICE DAILY Neurontin [facility] 80253959478 300 MG Orally Inactive 1 capsule Once a day before bedtime Remeron [facility] 72486084799 30 MG Orally Active 1 tablet at Once a day bedtime Depakote ER [facility] 61140455132 500 MG Orally Active not defined Aspirin [facility] 01873986891 325 MG Orally Active 1 tablet Once a day Metoprolol [facility] 72645347878 25 PO BID Active TAKE ONE Tartrate TABLET BY MOUTH TWICE A DAY. TAKE WITH METOPROLOL 50MG TO TOTAL DOSE OF 75MG Lyrica [facility] 42093453917 75 MG Orally March Active 1 capsule 1 Twice a day 2017 to 3 hours before bedtime in the evening Zoloft NDC 91544656914 100 MG Orally Active 1 tablet Once a day Results No Known Results Summary Purpose eClinicalWorks Submission
--- OUTSIDE RECORDS SUMMARY | 2018-05-23 21:25 | XMS REPORT ---
[...] End Status Dosage System Date Date Neurontin [facility] 70594890705 300 MG Orally Active 1 capsule Once a day before bedtime Metoprolol [facility] 98472867749 50 Active TAKE ONE Tartrate TABLET BY MOUTH TWICE A DAY. TAKE WITH METOPROLOL 25MG TO EQUAL TOTAL DOSE OF 75MG TWICE DAILY Remeron [facility] 02256361477 30 MG Orally Active 1 tablet at Once a day bedtime Depakote ER [facility] 83952531754 500 MG Orally Active not defined Metoprolol [facility] 88776908757 25 Active TAKE ONE Tartrate TABLET BY MOUTH TWICE A DAY. TAKE WITH METOPROLOL 50MG TO TOTAL DOSE OF 75MG Colace [facility] 52606349078 100 MG Orally Active 1 capsule as Once a day needed Simvastatin [facility] 71664148103 40 MG Orally Active 1 tablet in Once a day the evening Zoloft [facility] 70860973148 100 MG Orally Active 1 tablet Once a day Results No Known Results Summary Purpose eClinicalWorks Submission
--- OUTSIDE RECORDS SUMMARY | 2018-05-23 21:25 | XMS REPORT ---
[...] Status Dosage System Date Date Depakote ER [facility] 72117224183 500 MG Orally Active not defined Remeron [facility] 89019204029 30 MG Orally Active 1 tablet at Once a day bedtime Gabapentin [facility] 28009603934 300 MG Orally Active 1 capsule Twice a day Metoprolol [facility] 45464117129 25 PO BID Active TAKE ONE Tartrate TABLET BY MOUTH TWICE A DAY. TAKE WITH METOPROLOL 50MG TO TOTAL DOSE OF 75MG Colace [facility] 27016394188 100 MG Orally Active 1 capsule as Once a day needed Simvastatin ND 37178885394 40 MG Orally Active 1 tablet in Once a day the evening Neurontin ND 90533394050 300 MG Orally Active 1 capsule Twice a day before bedtime Aspirin [facility] 29327005732 325 MG Orally Active 1 tablet Once a day Metoprolol [facility] 04331822827 50 PO BID Active TAKE ONE Tartrate TABLET BY MOUTH TWICE A DAY. TAKE WITH METOPROLOL 25MG TO EQUAL TOTAL DOSE OF 75MG TWICE DAILY Zoloft [facility] 01305198983 100 MG Orally Active 1 tablet Once a day Results No Known Results Summary Purpose eClinicalWorks Submission
--- OUTSIDE RECORDS SUMMARY | 2018-05-23 21:25 | XMS REPORT ---
[...] End Status Dosage System Date Date Remeron [facility] [place] 62038810964 30 MG Orally Active 1 tablet at Once a day bedtime Depakote [place] [facility] [place] 02468558109 500 MG Orally Active not defined Neurontin [facility] [place] 13805871786 300 MG Orally Active 1 capsule Twice a day before bedtime Colace [facility] [place] 37279027982 100 MG Orally Active 1 capsule as Once a day needed Zoloft [facility] [place] 63622311681 100 MG Orally Active 1 tablet Once a day Metoprolol [facility] [place] 90537826271 50 PO BID Active TAKE ONE Tartrate TABLET BY MOUTH TWICE A DAY. TAKE WITH METOPROLOL 25MG TO EQUAL TOTAL DOSE OF 75MG TWICE DAILY Simvastatin [facility] [place] 49006078948 40 MG Orally Active 1 tablet in Once a day the evening Gabapentin [facility] [place] [address]-33 300 MG Orally Active 1 capsule Twice a day Aspirin [facility] [place] 31772426371 325 MG Orally Active 1 tablet Once a day Metoprolol [facility] [place] 48403517575 25 PO BID Active TAKE ONE Tartrate TABLET BY MOUTH TWICE A DAY. TAKE WITH METOPROLOL 50MG TO TOTAL DOSE OF 75MG Results No Known Results Summary Purpose eClinicalWorks Submission
--- OUTSIDE RECORDS SUMMARY | 2018-05-23 21:26 | XMS REPORT ---
:1955 Author Organization eClinicalWorks Care Team Providers Name Role Phone Bautista Jose Manuel Provider Role Unavailable Allergies, Adverse Reactions, Alerts Substance Reaction Event Type Phenergan Info Not Available Drug Allergy Problems Problem Type Condition Code Onset Dates Condition Status Assessment Other chronic pain G89.29 Active Assessment Disc degeneration, lumbar M51.36 Active Assessment Low back pain M54.5 Active Assessment Insomnia G47.00 Active Assessment Idiopathic peripheral neuropathy G60.9 Active Assessment Bipolar disorder F31.9 Active Assessment Obstructive sleep apnea G47.33 Active Problem Chronic renal disease N18.9 Active Assessment Coronary artery disease I25.10 Active Problem Obstructive sleep apnea G47.33 Active Assessment Hyperlipidemia, mixed E78.2 Active Problem Idiopathic peripheral neuropathy G60.9 Active Problem CKD (chronic kidney disease), stage N18.4 Active IV Problem Hyperlipidemia, mixed E78.2 Active Problem Low back pain M54.5 Active Problem Other chronic pain G89.29 Active Assessment Generalized weakness R53.1 Active Assessment CKD (chronic kidney disease), stage N18.4 Active IV Problem Diverticulitis K57.92 Active Assessment Hypertension I10 Active Problem Memory changes R41.3 Active Problem Abnormal gait R26.9 Active Problem Disc degeneration, lumbar M51.36 Active Problem Urinary incontinence, unspecified R32 Active type Problem Insomnia G47.00 Active Assessment Diverticulitis K57.92 Active Assessment Hospital discharge follow-up Z09 Active Problem Venous insufficiency I87.2 Active Problem Bipolar disorder F31.9 Active Problem Hypertension I10 Active Problem Coronary artery disease I25.10 Active Medications Medication Code Code Instructions Start End Status Dosage System Date Date Colace [facility] 42272290970 100 MG Orally Active 1 capsule as Once a day needed Gabapentin [facility] 42997955227 300 MG Orally Active 1 capsule Twice a day Metoprolol [facility] 05703906670 25 PO BID Active TAKE ONE Tartrate TABLET BY MOUTH TWICE A DAY. TAKE WITH METOPROLOL 50MG TO TOTAL DOSE OF 75MG Amlodipine [facility] 57100176366 10 MG Orally Active 1 tablet Besylate Once a day Metoprolol [facility] 32664369953 50 PO BID Active TAKE ONE Tartrate TABLET BY MOUTH TWICE A DAY. TAKE WITH METOPROLOL 25MG TO EQUAL TOTAL DOSE OF 75MG TWICE DAILY Depakote ER [facility] 36567460360 500 MG Orally Active not defined Aspirin [facility] 47279232200 325 MG Orally Active 1 tablet Once a day Simvastatin [facility] 75364890527 40 MG Orally Active 1 tablet in Once a day the evening Remeron [facility] 91263845887 30 MG Orally Active 1 tablet at Once a day bedtime Neurontin [facility] 70285003208 300 MG Orally Active 1 capsule Twice a day before bedtime Zoloft [facility] 49475978132 100 MG Orally Active 1 tablet Once a day Results No Known Results Summary Purpose eClinicalWorks Submission
[2018-05-23 22:23] LABS: Urine Blood NEGATIVE (NEG); Urine Glucose NEGATIVE (NEG); Urine Protein NEGATIVE (NEG); Urine pH 6.5 (5.0-7.0)
[2018-05-23 22:25] LABS: Absolute Lymphocytes (CBC) 0.6 K/uL (0.7-4.9); Absolute Monocytes 0.5 K/uL (0.1-1.3); Absolute Neutrophil 7.1 K/uL (1.8-8.0); Basophils % 0.4 % (0-1.3); Eosinophils % 0.3 % (0-4.4); Lymphocytes % 7.1 % (15.3-44.8); MCH 36.6 pg (27.0-35.0); MCV 108.7 fL (80-100); Monocytes % 6.6 % (3.3-12.3)
[2018-05-23 22:49] LABS: Blood Morphology Comment NOTED (NOT SEEN); Macrocytosis 1+; Platelet Estimate ADEQ
[2018-05-23 23:12] LABS: Protime INR 0.96
[2018-05-23 23:24] LABS: Albumin 2.5 g/dL (3.4-5.0); Bilirubin Direct 0.2 mg/dL (0-0.2); Bilirubin Total 0.3 mg/dL (0.2-1.0); CKMB Creatine Kinase MB 1.1 ng/mL (0.3-3.6); Magnesium 2.1 mg/dL (1.8-2.4); Potassium 4.1 mmol/L (3.5-5.1); Protein, Total 5.4 g/dL (6.4-8.2); Troponin (Emerg Dept Use Only) 0.02 ng/mL (0.0-0.045)
[2018-05-24 00:04] LABS: Arterial Blood Carboxyhemoglob 2.9 % (0-1.5); Blood Gas Oxyhemoglobin 90.2 % (94-97); Blood O2 Saturation 93.7 % (92-98.5)
--- NOTE | 2018-05-24 00:41 | ER ---
Nurse's Notes [facility] Name: Kavin Armijo Age: 63 yrs Sex: Male : 1955 Arrival Date: 05/23/2018 Time: 21:[address] Private MD: Diagnosis: Dehydration;Diarrhea, unspecified;Weakness-General Presentation: 05/23 21:45 Presenting complaint: EMS states: "complained of weakness.". Transition of care: rv patient was not received from another setting of care. Onset of symptoms was May 23, 2018 at 18:00. Risk Assessment: Do you want to hurt yourself or someone else? Patient reports no desire to harm self or others. Initial Sepsis Screen: Does the patient meet any 2 criteria? No. Patient's initial sepsis screen is negative. Does the patient have a suspected source of infection? No. Patient's initial sepsis screen is negative. Care prior to arrival: None. 21:45 Method Of Arrival: EMS: [facility] rv 21:45 Acuity: CHANNING 3 rv Triage Assessment: 21:55 General: Appears in no apparent distress. comfortable, Behavior is calm, cooperative. rv Pain: Denies pain. Historical: - Allergies: 21:48 Phenergan; rv - Home Meds: 21:53 metoprolol tartrate 25 mg Oral tab 1 tab 2 times per day [Active]; gabapentin 300 mg rv oral cap 1 cap two times per day [Active]; divalproex 250 mg oral Tb24 once daily [Active]; simvastatin 40 mg Oral tab 1 tab once daily [Active]; sertraline 100 mg oral tab 1 tab once daily [Active]; divalproex 500 mg oral TbEC 2 tabs once daily [Active]; mirtazapine 30 mg Oral TbDL 1 tab once daily [Active]; amlodipine 10 mg tab 1 tab once daily [Active]; - PMHx: 21:48 anmesia; Bipolar disorder; Hypertension; Renal Disease; Sleep Apnea; rv - PSHx: 21:53 CABG; rv - Immunization history:: Adult Immunizations up to date, Flu vaccine is up to date. - Social history:: Smoking status: Patient uses tobacco products, smokes one-half pack cigarettes per day. - Ebola Screening: : Patient negative for fever greater than or equal to 101.5 degrees Fahrenheit, and additional compatible Ebola Virus Disease symptoms Patient denies exposure to infectious person Patient denies travel to an Ebola-affected area in the 21 days before illness onset. Screenin:56 Abuse screen: Denies threats or abuse. Denies injuries from another. Nutritional rv screening: No deficits noted. Tuberculosis screening: No symptoms or risk factors identified. Fall Risk None identified. Assessment: 21:55 General: Appears in no apparent distress. comfortable, Behavior is calm, cooperative. rv Pain: Denies pain. Neuro: Level of Consciousness is awake, alert, obeys commands, Oriented to person, place, time, situation. Cardiovascular: Capillary refill < 3 seconds Rhythm is regular. Respiratory: Airway is patent Breath sounds are clear bilaterally. GI: No signs and/or symptoms were reported involving the gastrointestinal system. : No signs and/or symptoms were reported regarding the genitourinary system. EENT: No signs and/or symptoms were reported regarding the EENT system. Derm: Skin is intact. 23:00 Reassessment: Patient and/or family updated on plan of care and expected duration. Pain cr4 level reassessed. Patient is alert, oriented x 3, equal unlabored respirations, skin warm/dry/pink. Patient states feeling better. 05/24 00:14 Reassessment: No changes from previously documented assessment. Patient and/or family cr4 updated on plan of care and expected duration. Pain level reassessed. Patient is alert, oriented x 3, equal unlabored respirations, skin warm/dry/pink. . 01:10 Reassessment: Patient and aware of pending admission. General: Appears in no lp1 apparent distress. Neuro: Level of Consciousness is awake, lethargic, Oriented to person, place, time, situation. Respiratory: Respiratory effort is even, unlabored. Derm: Skin is pink, warm \\T\\ dry. 01:46 Reassessment: Patient returned from CT, given sandwich at this time. lp1 02:10 Reassessment: Dr. Meek at bedside. lp1 02:45 Reassessment: Attempted to call report at this time, nurse will call back ; Patient lp1 resting, eyes closed, respirations unlabored. 03:05 Reassessment: Patient completed oral contrast at this time;. lp1 03:10 Reassessment: PILLO Horner notified that patient will remain in ED until CT scan. lp1 04:28 Reassessment: Patient was taken to CT. Patient will be taken to his hospital room by ER ao tech when CT is done. Patient's room was check and no personal belonging left in the room. Vital Signs: 05/23 21:54 BP 106 / 68; Pulse 89; Temp 99.2; Pulse Ox 95% ; Weight 79.38 kg (R); rv 22:55 BP 104 / 61 LA Supine (auto/reg); Pulse 87; Resp 23 S; Temp 99.7; Pulse Ox 96% on 2 lpm jp3 NC; 05/24 00:00 BP 93 / 59; Pulse 78; Resp 14; Pulse Ox 95% 2 lpm ; Pain 0/10; cr4 01:11 BP 93 / 55; Pulse 73; Resp 15; Temp 98.8(O); Pulse Ox 94% on 2 lpm NC; lp1 02:36 BP 98 / 64; Pulse 71; Resp 15; Pulse Ox 94% on 2 lpm NC; lp1 03:38 BP 111 / 66; Pulse 68; Resp 13; Pulse Ox 99% on 2 lpm NC; lp1 ED Course: 05/23 21:42 Patient arrived in ED. aj1 21:43 Ashish Saba PA is PHCP. cp 21:43 Shawn Mahajan MD is Attending Physician. cp 21:47 Triage completed. rv 21:50 Initial lab(s) drawn, by me, sent to lab. First set of blood cultures drawn by me. jp3 21:56 Arm band placed on right wrist. rv 21:56 Patient has correct armband on for positive identification. Placed in gown. Bed in low rv position. Call light in reach. Side rails up X2. Adult w/ patient. monitor tech on. Pulse ox on. NIBP on. 21:57 Maintain EMS IV. Dressing intact. Good blood return noted. Site clean \\T\\ dry. Gauge \\T\\ rv site: G20 LEFT FORE ARM. IV is intact, with fluids infusing freely, with good blood return. 22:00 Urine collected: clean catch specimen, clear, kofi colored, Flu and/or RSV swab sent jp3 to lab. 22:15 Second set of blood cultures drawn via 21-gauge butterfly needle from Right radial vein jp3 EKG done, by ED staff, reviewed by Shawn Mahajan MD. 22:21 Influenza Screen (a \\T\\ B) Sent. jp3 22:21 Procalcitonin Sent. jp3 22:21 Lactate Sent. jp3 22:21 Blood Culture Adult (2) Sent. jp3 22:21 CBC with Diff Sent. jp3 22:21 Ckmb Sent. jp3 22:22 CPK Sent. jp3 22:22 LFT's Sent. jp3 22:22 Magnesium Sent. jp3 22:22 NT PRO-BNP Sent. jp3 22:22 PT-INR Sent. jp3 22:22 Ptt, Activated Sent. jp3 22:22 Troponin (emerg Dept Use Only) Sent. jp3 22:22 Basic Metabolic Panel Sent. jp3 22:28 XRAY Chest (1 view) In Process Unspecified. EDMS 22:40 Lab(s) recollected, by me, sent to lab. jp3 22:43 Procalcitonin Sent. jp3 22:43 Blood Culture Adult (2) Sent. jp3 22:59 Warm blanket given. Pillow given. jp3 05/24 00:40 Tori Paula MD is Hospitalizing Provider. cp 00:47 Shanell Rivas, PILLO is Primary Nurse. lp1 01:[address] via stretcher. lp1 01:[address] via stretcher. kw1 01:26 CT Head Brain wo Cont In Process Unspecified. EDMS 01:27 CT completed. Patient tolerated procedure well. Patient moved back from CT. kw1 01:30 No provider procedures requiring assistance completed. Patient admitted, IV remains in lp1 place. 03:38 Report given to Dragan Cheney RN. lp1 04:[address] via stretcher. kw1 Administered Medications: 05/23 22:02 Drug: NS 0.9% 500 ml Route: IV; Rate: bolus; Site: left forearm; rv 05/24 00:11 Follow up: IV Intake: 500ml cr4 05/23 23:50 Drug: NS 0.9% 500 ml Route: IV; Rate: bolus; Site: left wrist; cr4 05/24 00:12 Follow up: IV Intake: 500ml ; Given the NS started by EMS. cr4 04:30 Follow up: IV Status: Completed infusion; IV Intake: 500ml ao 01:09 Drug: NS 0.9% 1000 ml Route: IV; Rate: 75 ml/hr; Site: left forearm; lp1 02:44 Follow up: IV Status: Infusion continued upon admission lp1 Intake: 00:11 IV: 500ml; Total: 500ml. cr4 00:12 IV: 500ml; Total: 1000ml. cr4 00:29 IV: 1000ml; Total: 2000ml. cr4 04:30 IV: 500ml; Total: 2500ml. ao Output: 00:29 Urine: 200ml (Voided); Total: 200ml. cr4 Outcome: 00:40 Decision to Hospitalize by Provider. cp 01:30 Condition: stable lp1 01:30 Instructed on the need for admit. 03:05 Admitted to Tele room 417, Report called to PILLO Horner lp1 04:29 Patient left the ED. ao Signatures: Dispatcher [employer] EDJosseline Drake RN RN aj1 Carie Rey RN RN cr4 Shanell Rivas RN RN lp1 Ashish Saba PA PA Dragan Gomez RN RN ao Bharti Magana1 Lev Santos RN RN Dustin Velázquez jp3 Corrections: (The following items were deleted from the chart) 02:52 02:45 Reassessment: Attempted to call report at this time, nurse will call back lp1 lp1 03:37 03:05 Admitted to Tele accompanied by nurse, via stretcher, room 417, with chart, lp1 Report called to PILLO Horner lp1 03:38 03:05 Reassessment: lp1 lp1
--- NOTE | 2018-05-24 00:41 | EDPHYS ---
Physician Documentation [facility] Name: Kavin Armijo Age: 63 yrs Sex: Male : 1955 Arrival Date: 05/23/2018 Time: 21:[address] Private MD: ED Physician Shawn Mahajan HPI: 05/23 21:55 This 63 yrs old Male presents to ER via EMS with complaints of weakness. cp 21:55 The patient's problem is reported as weakness, that is generalized. cp 22:00 Onset: The symptoms/episode began/occurred today, at an unknown time. cp 22:00 Duration: The episode is continuous. Associated signs and symptoms: Pertinent cp positives: diarrhea, headache, Pertinent negatives: abdominal pain, chest pain, diaphoresis, headache, numbness, palpitations, seizure, shortness of breath, vomiting. Patient's baseline: Motor: no deficits, Ambulation: walks without assistance, Speech: normal. Historical: - Allergies: 21:48 Phenergan; rv - Home Meds: 21:53 metoprolol tartrate 25 mg Oral tab 1 tab 2 times per day [Active]; gabapentin 300 mg rv oral cap 1 cap two times per day [Active]; divalproex 250 mg oral Tb24 once daily [Active]; simvastatin 40 mg Oral tab 1 tab once daily [Active]; sertraline 100 mg oral tab 1 tab once daily [Active]; divalproex 500 mg oral TbEC 2 tabs once daily [Active]; mirtazapine 30 mg Oral TbDL 1 tab once daily [Active]; amlodipine 10 mg tab 1 tab once daily [Active]; - PMHx: 21:48 anmesia; Bipolar disorder; Hypertension; Renal Disease; Sleep Apnea; rv - PSHx: 21:53 CABG; rv - Immunization history:: Adult Immunizations up to date, Flu vaccine is up to date. - Social history:: Smoking status: Patient uses tobacco products, smokes one-half pack cigarettes per day. - Ebola Screening: : Patient negative for fever greater than or equal to 101.5 degrees Fahrenheit, and additional compatible Ebola Virus Disease symptoms Patient denies exposure to infectious person Patient denies travel to an Ebola-affected area in the 21 days before illness onset. ROS: 22:05 Eyes: Negative for injury, pain, redness, and discharge. cp 22:05 Constitutional: Negative for body aches, fever, poor PO intake. 22:05 ENT: Negative for drainage from ear(s), ear pain, sinus congestion, sore throat, difficulty swallowing, difficulty handling secretions. 22:05 Neck: Negative for pain with movement, pain at rest, stiffness, tenderness. 22:05 Cardiovascular: Negative for chest pain, edema, palpitations. 22:05 Respiratory: Negative for cough, shortness of breath, wheezing. 22:05 Abdomen/GI: Positive for diarrhea, Negative for abdominal pain, vomiting, constipation, black/tarry stool, rectal bleeding. 22:05 Back: Negative for pain at rest, pain with movement. 22:05 : Negative for urinary symptoms, flank pain. 22:05 Skin: Negative for cellulitis, diaphoresis, rash. 22:05 Neuro: Positive for general weakness, Negative for altered mental status, headache, seizure activity. 22:05 All other systems are negative. Exam: 22:10 Constitutional: The patient appears in no acute distress, alert, awake, cp non-diaphoretic, well developed, well nourished. 22:10 Head/Face: Normocephalic, atraumatic. cp 22:10 Eyes: Periorbital structures: appear normal, Pupils: equal, round, and reactive to light and accomodation, Extraocular movements: intact throughout, Conjunctiva: normal, no exudate, no injection, Sclera: no appreciated abnormality, Lids and lashes: appear normal, bilaterally. 22:10 ENT: External ear(s): are unremarkable, Ear canal(s): are normal, clear, TM's: dullness, bilaterally, Nose: is normal, Mouth: Lips: dry, Oral mucosa: dry, Posterior pharynx: Airway: no evidence of obstruction, patent, swelling, is not appreciated, erythema, is not appreciated, exudate, is not appreciated. 22:10 Neck: ROM/movement: is normal, is supple, without pain, no range of motions limitations, no meningismus, no nuchal rigidity. 22:10 Chest/axilla: Inspection: normal, Palpation: is normal, no crepitus, no tenderness. 22:10 Cardiovascular: Rate: normal, Rhythm: regular, Pulses: Pulses are 2+ in right radial artery and left radial artery. Edema: is not appreciated, JVD: is not appreciated. 22:10 Respiratory: the patient does not display signs of respiratory distress, Respirations: normal, no use of accessory muscles, no retractions, no splinting, no tachypnea, labored breathing, is not present, Breath sounds: are clear throughout, no decreased breath sounds, no stridor, no wheezing. 22:10 Abdomen/GI: Inspection: abdomen appears normal, Bowel sounds: active, all quadrants, Palpation: abdomen is soft and non-tender, in all quadrants, rebound tenderness, is not appreciated, voluntary guarding, is not appreciated, involuntary guarding, is not appreciated. 22:10 Back: pain, is absent. 22:10 Skin: cellulitis, is not appreciated, no rash present. 22:10 Neuro: Orientation: to person, place \T\ time. Mentation: lucid, able to follow commands, Cerebellar function: is grossly normal, Motor: moves all fours, general weakness w/o focal deficits, Sensation: no obvious gross deficits. 05/24 02:00 Radiologist reports: no acute findings cp Vital Signs: 05/23 21:54 BP 106 / 68; Pulse 89; Temp 99.2; Pulse Ox 95% ; Weight 79.38 kg (R); rv 22:55 BP 104 / 61 LA Supine (auto/reg); Pulse 87; Resp 23 S; Temp 99.7; Pulse Ox 96% on 2 lpm jp3 NC; 05/24 00:00 BP 93 / 59; Pulse 78; Resp 14; Pulse Ox 95% 2 lpm ; Pain 0/10; cr4 01:11 BP 93 / 55; Pulse 73; Resp 15; Temp 98.8(O); Pulse Ox 94% on 2 lpm NC; lp1 02:36 BP 98 / 64; Pulse 71; Resp 15; Pulse Ox 94% on 2 lpm NC; lp1 03:38 BP 111 / 66; Pulse 68; Resp 13; Pulse Ox 99% on 2 lpm NC; lp1 MDM: 05/23 21:43 Patient medically screened. cp 22:00 Differential diagnosis: CVA, TIA, metabolic disorder, drug effects, acute TX, sepsis, cp dehydration. 05/24 01:00 Data reviewed: vital signs, nurses notes, lab test result(s), EKG, radiologic studies, cp plain films. Physician consultation: Tori Paula MD was contacted at 01:00, regarding admission, to the medical/surgical unit. patient's condition. 05/23 21:45 Order name: Basic Metabolic Panel; Complete Time: 23:26 cp 05/24 00:03 Interpretation: Normal except: CL 120; BUN 32; CRE 2.50; GFR 26; CA 7.5. cp 05/23 21:45 Order name: CBC with Diff; Complete Time: 23:05 cp 05/23 23:06 Interpretation: Normal except: RBC 3.40; HGB 12.5; HCT 37.0; MCV 108.7; MCH 36.6; ROMAINE% cp 85.6; LYM% 7.1; LYMA 0.6. 05/23 21:45 Order name: Ckmb; Complete Time: 23:26 cp 05/23 21:45 Order name: CPK; Complete Time: 23:26 cp 05/23 21:45 Order name: LFT's; Complete Time: 23:26 cp 05/23 23:27 Interpretation: Normal except: AST 7; TP 5.4; ALB 2.5; A/G 0.9. cp 05/23 21:45 Order name: Magnesium; Complete Time: 23:26 cp 05/23 21:45 Order name: NT PRO-BNP; Complete Time: 23:26 cp 05/23 23:27 Interpretation: Abnormal: NT PRO-BNP 4592. cp 05/23 21:45 Order name: PT-INR; Complete Time: 23:26 cp 05/23 21:45 Order name: Ptt, Activated; Complete Time: 23:26 cp 05/23 21:45 Order name: Troponin (emerg Dept Use Only); Complete Time: 23:26 cp 05/23 21:45 Order name: Blood Culture Adult (2) cp 05/23 21:45 Order name: Lactate; Complete Time: 23:05 cp 05/23 21:45 Order name: Procalcitonin; Complete Time: 00:03 cp 05/23 21:45 Order name: Influenza Screen (a \T\ B); Complete Time: 23:05 cp 05/23 21:45 Order name: XRAY Chest (1 view) cp 05/23 21:45 Order name: EKG; Complete Time: 21:46 cp 05/23 21:45 Order name: Cardiac monitoring; Complete Time: 22:01 cp 05/23 21:45 Order name: EKG - Nurse/Tech; Complete Time: 22:01 cp 05/23 21:45 Order name: IV Saline Lock; Complete Time: 22:02 cp 05/23 21:45 Order name: Labs collected and sent; Complete Time: 22:02 cp 05/23 22:21 Order name: Urine Dipstick--Ancillary (enter results); Complete Time: 23:05 mw2 05/23 22:27 Order name: Manual Differential; Complete Time: 23:05 EDMS 05/23 23:06 Interpretation: Normal except: SEGS 89; BANDS [F] 6; LYM 1. cp 05/23 23:30 Order name: ABG cp 05/24 00:41 Order name: Stool Culture 05/24 00:41 Order name: Occult Blood cp 05/24 00:41 Order name: CDIFF cp 05/24 00:54 Order name: CT Head Brain wo Cont cp 05/23 21:45 Order name: O2 Per Protocol; Complete Time: 22:02 cp 05/23 21:45 Order name: O2 Sat Monitoring; Complete Time: 22:02 cp 05/23 21:45 Order name: Urine Dipstick-Ancillary (obtain specimen); Complete Time: 22:14 cp Administered Medications: 05/23 22:02 Drug: NS 0.9% 500 ml Route: IV; Rate: bolus; Site: left forearm; rv 05/24 00:11 Follow up: IV Intake: 500ml cr4 05/23 23:50 Drug: NS 0.9% 500 ml Route: IV; Rate: bolus; Site: left wrist; cr4 05/24 00:12 Follow up: IV Intake: 500ml ; Given the NS started by EMS. cr4 04:30 Follow up: IV Status: Completed infusion; IV Intake: 500ml ao 01:09 Drug: NS 0.9% 1000 ml Route: IV; Rate: 75 ml/hr; Site: left forearm; lp1 02:44 Follow up: IV Status: Infusion continued upon admission lp1 Disposition: 05:25 Co-signature as Attending Physician, Shawn Mahajan MD. pkl Disposition: 05/24/18 00:40 Hospitalization ordered by Tori Paula for Observation. Preliminary diagnosis are Dehydration, Diarrhea, unspecified, Weakness - General. - Bed requested for Telemetry/MedSurg (observation). - Status is Observation. ao - Condition is Stable. - Problem is new. - Symptoms have improved. UTI on Admission? No Signatures: Dispatcher [employer] EDBharti Rosas, RN RN Shawn Soto MD MD pkl Ruiz, Claudia, RN RN cr4 Shanell Rivas, RN RN lp1 Ashish Saba, LIZBETH PA cp Dragan Cheney, RN RN ao Lev Santos RN RN rv Corrections: (The following items were deleted from the chart) 00:03 05/23 23:26 Normal except: CL 120; BUN 32; CRE 2.50; GFR 26. cp cp 05/24 02:37 00:40 Hospitalization Ordered by Tori Paula MD for Observation. Preliminary kl diagnosis is Dehydration; Diarrhea, unspecified; Weakness - General. Bed requested for Telemetry/MedSurg (observation). Status is Observation. Condition is Stable. Problem is new. Symptoms have improved. UTI on Admission? No. cp 04:29 02:37 05/24/2018 00:40 Hospitalization Ordered by Tori Paula MD for Observation. ao Preliminary diagnosis is Dehydration; Diarrhea, unspecified; Weakness - General. Bed requested for Telemetry/MedSurg (observation). Status is Observation. Condition is Stable. Problem is new. Symptoms have improved. UTI on Admission? No. kl
[2018-05-24] MEDS ORDERED: NA CHLORIDE 0.9% 1,000 ML ONE (01:10)
--- NOTE | 2018-05-24 03:01 | P.HP ---
Certification for Inpatient Patient admitted to: Observation With expected LOS: <2 Midnights Practitioner: I am a practitioner with admitting privileges, knowledge of patient current condition, hospital course, and medical plan of care. Services: Services provided to patient in accordance with Admission requirements found in Title 42 Section 412.3 of the Code of Federal Regulations Patient History Date of Service: 05/24/18 Reason for admission: Diarrhea, bandemia History of Present Illness: Mr Armijo is a 63-year-old male with history of coronary artery disease, hypertension, bipolar disorder, DOM, chronic kidney disease, who was previously admitted to the hospital due to acute diverticulitis about a month ago. He came to ER complaining of diarrhea starting today. He was feeling weak all day , and this afternoon, he became confused. He also states that has had chills, and felt like he has fever. He denied any nausea, vomiting or abdominal. He also denied cough or shortness of breath. Laboratory work is remarkable for normal WBC count, normal lactate and procalcitonin, however he has 6% of bands. At arrival he was afebrile, BP 106/68. Allergies promethazine HCl [From Phenergan] Allergy (Severe, Verified 04/30/18 21:07) Shortness of breath chlorpromazine HCl [From Thorazine] Allergy (Intermediate, Verified 05/24/18 02: 14) Hives/Rash, Nausea Home medications list reviewed: Yes Home Medications: Divalproex [Depakote Delayed Release*] 1,000 mg PO BEDTIME 11/09/11 Divalproex [Depakote Delayed Release*] 250 mg PO BEDTIME 11/09/11 Sertraline HCl [Zoloft] 100 mg PO DAILY 11/09/11 Mirtazapine [Remeron] 30 mg PO BEDTIME #30 tab 05/13/12 Metoprolol Tartrate [Lopressor*] 50 mg PO DAILY WITH BREAKFAST 04/30/18 Gabapentin [Neurontin*] 1 cap PO BID 05/02/18 Aspirin [Valerie Chewable] 81 mg PO DAILY 05/24/18 Metoprolol Tartrate [Lopressor] 75 mg PO BEDTIME 05/24/18 Simvastatin 40 mg PO BEDTIME 05/24/18 - Past Medical/Surgical History Has patient received pneumonia vaccine in the past: Yes Diabetic: No -: sleep apnea -: ckd -: cvd -: manic bipolar -: chonic back/neck issues -: hypertension -: hyperlipidemia -: insomnia -: dvt right calf (knee fracture) -: amnesia -: cabg -: cholecystectomy - Family History Mother -: Heart disease Notes: polycythemia, NC Father -: Other (see notes) Notes: pancreatic cancer - Social History Smoking Status: Current every day smoker Counseled patient to stop smoking for: less than 10 minutes Smoking therapy provided: Yes Patient receptive to therapy: No Alcohol use: No CD- Drugs: No Caffeine use: Yes Place of Residence: Home Review of Systems 10-point ROS is otherwise unremarkable Physical Examination - Physical Exam General: Alert, In no apparent distress, Oriented x3 HEENT: Atraumatic, PERRLA, Mucous membr. moist/pink, EOMI, Sclerae nonicteric Neck: Supple, 2+ carotid pulse no bruit, No LAD, Without JVD or thyroid abnormality Respiratory: Diminished, Expiratory wheezes (Scattering expiatory wheeze on bilateral barrera.) Cardiovascular: Regular rate/rhythm, Normal S1 S2 Gastrointestinal: Normal bowel sounds, No tenderness Musculoskeletal: No tenderness Integumentary: No rashes Neurological: Normal speech, Normal strength at 5/5 x4 extr, Normal tone, Normal affect Lymphatics: No axilla or inguinal lymphadenopathy - Studies Laboratory Data (last 24 hrs) 05/23/18 22:40: PT 11.3, INR 0.96, APTT 24.8 05/23/18 22:40: Sodium 144, Potassium 4.1, BUN 32 H, Creatinine 2.50 H, Glucose 83, Magnesium 2.1, Total Bilirubin 0.3, AST 7 L, ALT 17, Alkaline Phosphatase 89 05/23/18 21:50: WBC 8.3, Hgb 12.5 L, Hct 37.0 L, Plt Count 229 Microbiology Data (last 24 hrs): 05/23/18 22:05 Nasopharnyx Influenza Type A Antigen Screen - Final 05/23/18 22:05 Nasopharnyx Influenza Type B Antigen Screen - Final Assessment and Plan - Problems (Diagnosis) (1) Acute encephalopathy Current Visit: Yes Status: Acute (2) Diarrhea Onset Date: 05/03/18 Current Visit: No Status: Acute Qualifiers: Diarrhea type: presumed infectious Qualified Code(s): R19.7 - Diarrhea, unspecified (3) Generalized weakness Onset Date: 05/03/18 Current Visit: No Status: Acute (4) CAD (coronary artery disease) Onset Date: 02/23/18 Current Visit: No Status: Chronic Qualifiers: Coronary Disease-Associated Artery/Lesion type: [place] artery [place] vs. transplanted heart: [place] heart (5) Chronic kidney disease Onset Date: 05/03/18 Current Visit: No Status: Chronic Qualifiers: Chronic kidney disease stage: stage 3 (moderate) Qualified Code(s): N18.3 - Chronic kidney disease, stage 3 (moderate) - Plan The patient will be admitted to the hospital due to weakness, diarrhea, he has normal WBC but bandemia. He also had subjective fever at home. There is a pending CT of abdomen and pelvis, C diff screen is in process. Will start empiric antibiotic treatment. - Advance Directives Does patient have a Living Will: No Does patient have a Durable POA for Healthcare: No - Code Status/Comfort Care Code Status Assessed: Yes Code Status: Full Code
[2018-05-24] MEDS ORDERED: ACETAMINOPHEN 500 MG TAB PO PRN (04:43)
[2018-05-24] MEDS ORDERED: ALBUTEROL 2.5 MG/3 ML NEB SOL NEB PRN (04:43)
[2018-05-24] MEDS ORDERED: IPRATROPIUM BROM 0.5MG/2.5ML NEB PRN (04:43)
[2018-05-24] MEDS ORDERED: ONDANSETRON 4 MG/2 ML VIAL IV PRN (04:43)
[2018-05-24] MEDS: NA CHLORIDE 0.9% 1,000 ML IV SCH ×2 (04:43→14:43)
[2018-05-24 05:45] LABS: Potassium 4.9 mmol/L (3.5-5.1)
[2018-05-24 05:51] LABS: Absolute Lymphocytes (CBC) 0.9 K/uL (0.7-4.9); Absolute Monocytes 0.4 K/uL (0.1-1.3); Absolute Neutrophil 7.2 K/uL (1.8-8.0); Basophils % 0.5 % (0-1.3); Eosinophils % 0.2 % (0-4.4); Hematocrit 36.4 % (39.6-49.0); Lymphocytes % 10.3 % (15.3-44.8); MCH 36.9 pg (27.0-35.0); MCV 109.3 fL (80-100); MPV 8.5 fL (7.6-11.3); Monocytes % 4.6 % (3.3-12.3); RBC Red Blood Cell Count 3.33 M/uL (4.33-5.43)
[2018-05-24 06:43] VITALS: BMI 24.8
--- NOTE | 2018-05-24 06:59 | RAD REPORT ---
EXAM DESCRIPTION: CT - Head Brain Wo Cont - 05/24/2018 3:33 am CLINICAL HISTORY: Weakness, dizziness, amnesia, altered mental status A preliminary report was provided at the time of the study and reviewed prior to final report. COMPARISON: CT head April 30 TECHNIQUE: Axial 5 mm thick images of the head were obtained without IV contrast. All CT scans are performed using dose optimization technique as appropriate and may include automated exposure control or mA/KV adjustment according to patient size. FINDINGS: No intracranial hemorrhage, mass, edema or shift of mid-line structures. No acute infarcti on changes seen. Patient has prominent for age atrophy and chronic ischemic change. Ventricles are in proportion to volume loss. Arterial calcifications are present. Intracranial findings are not substa ntially different from the April comparison study. Mastoid air cells and visualized portions of the paranasal sinuses are clear. No acute bony findings. IMPRESSION: Advanced for age atrophy and chronic ischemic change with no acute intracranial finding. No significant change from April 30 study.
--- NOTE | 2018-05-24 08:10 | RAD REPORT ---
EXAM DESCRIPTION: CT - Abdomen Pelvis Wo Contrast - 05/24/2018 5:52 am CLINICAL HISTORY: Abdominal pain. A preliminary report was provided at the time of the study and reviewed prior to final report. COMPARISON: CT study April 30, 2018 ; CT study April 2012 TECHNIQUE: Axial [address] imaging of the abdomen and pelvis was performed without IV contrast. No IV contrast was given because of allergy, abnormal renal function, patient refusal or physician re quest. Oral contrast was given. All CT scans are performed using dose optimization technique as appropriate and may include automated exposure control or mA/KV adjustment according to patient size. FINDINGS: No suspicious findings in the lung bases. The liver, spleen and pancreas show no suspicious findings on non-contrast imaging. Small cyst left l obe of the liver is unchanged from 2012. Cholecystectomy clips are present. No biliary tree dilatatio n. No hydronephrosis present. No obstructing calculi. A 6 millimeter calcification posterior left hilum is believed to be vascular. Pitts of the urinary bladder are mildly prominent but not fully assessed in the partially contracted state. Prostate gland and seminal vesicles are normal range. No significant adrenal finding. In the posterior mid right kidney an 8 millimeter ill-defined hyper dense focus is present. Posterior lower pole left kidney shows a 3 centimeter oval hyperdense mass. T here is an exophytic 13 millimeter isodense mass medial upper pole left kidney. These are typically h igh protein content cysts or cyst that may contain hemorrhagic debris. These lesions are unchanged fr om the short interval April 30 study. Review of the 2011 CT study showed these lesions to be present slightly smaller in configuration. Interval growth is relatively mild over this 6 year interval. It is very unlikely that these are an aggressive renal process. No gastric dilatation or gastric wall thickening. No acute small bowel finding. No appendicitis findi ngs. A thickened nodular appearance to the cecum and proximal most ascending colon is seen. This is p robably due to incomplete distension from the oral contrast. Development of a mass is unlikely. No si milar finding on the examination 3 weeks earlier. Patient does have new circumferential wall thickeni ng with mild adjacent stranding in the distal descending colon and proximal most sigmoid colon. No ab scess or extravasation of bowel content. No free air. Liquid stool is present in the distal sigmoid and rectum. No free air, free fluid or other site of in flammatory stranding. No hernia, mass or bulky lymphadenopathy. No suspicious bony findings. IMPRESSION: Mild acute diverticulitis at the descending colon sigmoid junction. No abscess, free air or surgically emergent finding. Nodular thickened pitts of the cecum and proximal most ascending colon believed to be artifact of inc omplete distention. No similar finding in mid April. Mass lesion is unlikely. This region can be josee luated at colonoscopy if such exam is anticipated for evaluating the descending sigmoid findings. Isodense and hyperdense renal lesions are similar to mid April but do show growth since 2011. Growth is relatively mild and is very unlikely that these renal findings are anything other than hyperdense cysts. Contrast CT or renal sonography could be used for follow-up. Full assessment is limited is the absence of IV contrast.
--- NOTE | 2018-05-24 08:26 | RAD REPORT ---
EXAM DESCRIPTION: RAD - Chest Single View - 05/23/2018 10:28 pm CLINICAL HISTORY: Fever COMPARISON: April 30 TECHNIQUE: AP portable chest image was obtained 2221 hours . FINDINGS: No mass or consolidation. Lung markings are mildly prominent, accentuated by a slightly sh allow inspiration. Significant change from the prior study is not seen. Sternotomy wires are in place . Heart and vasculature are normal. No measurable pleural effusion and no pneumothorax. No gross bony abnormality seen. No acute aortic findings suspected. IMPRESSION: No acute cardiopulmonary process. No significant change from comparison.
[2018-05-24] MEDS ORDERED: METRONIDAZOLE 500mg IVPB 500 MG/100 ML BAG IV SCH (09:00)
[2018-05-24] MEDS ORDERED: CIPROFLOXACIN 400mg IV 400 MG/200 ML BAG IV SCH (09:00)
[2018-05-24] MEDS: VANCOMYCIN ORAL SOLN 250 MG/5 ML OSYR PO SCH ×2 (17:19→23:26)
--- NOTE | 2018-05-24 17:50 | P.PN ---
Subjective Date of Service: 05/24/18 Chief Complaint: Diarrhea, bandemia doing better, no more diarrheas Physical Examination - Vital Signs Temperature: 97.3 F Blood Pressure: 128/64 Pulse: 70 Respirations: 18 Pulse Ox (%): 94 - Physical Exam General: Alert, In no apparent distress HEENT: Atraumatic, PERRLA, EOMI Neck: Supple, JVD not distended Respiratory: Clear to auscultation bilaterally, Normal air movement Cardiovascular: Regular rate/rhythm, Normal S1 S2 Gastrointestinal: Normal bowel sounds, No tenderness Musculoskeletal: No tenderness Integumentary: No rashes Neurological: Normal speech, Normal tone, Normal affect Lymphatics: No axilla or inguinal lymphadenopathy - Studies Laboratory Data (last 24 hrs) 05/23/18 22:40: PT 11.3, INR 0.96, APTT 24.8 05/23/18 22:40: Sodium 144, Potassium 4.1, BUN 32 H, Creatinine 2.50 H, Glucose 83, Magnesium 2.1, Total Bilirubin 0.3, AST 7 L, ALT 17, Alkaline Phosphatase 89 05/23/18 21:50: WBC 8.3, Hgb 12.5 L, Hct 37.0 L, Plt Count 229 Microbiology Data (last 24 hrs): 05/23/18 22:05 Nasopharnyx Influenza Type A Antigen Screen - Final 05/23/18 22:05 Nasopharnyx Influenza Type B Antigen Screen - Final Medications List Reviewed: Yes Assessment And Plan - Current Problems (Diagnosis) (1) Colitis due to Clostridium difficile Current Visit: Yes Status: Acute - Plan --DC IV ABX --Start PO Vancomycin --Cont IVF --ECHO today --May DC home tomorrow
[2018-05-24] MEDS ORDERED: MIRTAZAPINE 30 MG PO SCH (21:00)
[2018-05-24] MEDS ORDERED: HOME MED 1 EA UNK (Simvastatin [Simvastatin] 40 MG) PO SCH (21:00)
[2018-05-24] MEDS: ATORVASTATIN 20 MG TAB PO SCH (22:01)
[2018-05-24] MEDS: DIVALPROEX DR 250 MG TAB PO SCH (22:01)
[2018-05-24] MEDS: GABAPENTIN 300 MG CAP PO SCH (22:01)
[2018-05-24] MEDS: DIVALPROEX DR 500MG TAB PO SCH (22:01)
[2018-05-24] MEDS: MIRTAZAPINE 15 MG TAB PO SCH (22:02)
[2018-05-24] MEDS: METOPROLOL TAR 50 MG TAB PO SCH (22:02)
--- NOTE | 2018-05-25 00:35 | EKG ---
Test Date: 2018-05-23 Test Time: 21:54:21 [place]: RADAMES MEASUREMENT RESULTS: Intervals: Rate: 89 NV: 126 QRSD: 82 QT: 372 QTc: 452 [place]: P: 40 NV: 126 QRS: 9 T: 78 INTERPRETIVE STATEMENTS: Normal sinus rhythm Normal ECG Compared to ECG 04/30/2018 12:55:52 No significant changes Electronically Signed On 05-25-18 00:32:22 CDT by Han Dhillon
[2018-05-25] MEDS: NA CHLORIDE 0.9% 1,000 ML IV SCH ×2 (03:25→10:43)
[2018-05-25 04:30] LABS: Absolute Lymphocytes (CBC) 1.5 K/uL (0.7-4.9); Absolute Monocytes 0.5 K/uL (0.1-1.3); Absolute Neutrophil 5.8 K/uL (1.8-8.0); Basophils % 0.2 % (0-1.3); Eosinophils % 1.5 % (0-4.4); Hematocrit 34.6 % (39.6-49.0); Lymphocytes % 18.7 % (15.3-44.8); MCH 36.7 pg (27.0-35.0); MPV 8.5 fL (7.6-11.3); Monocytes % 5.9 % (3.3-12.3); RBC Red Blood Cell Count 3.14 M/uL (4.33-5.43)
[2018-05-25 04:36] LABS: MCV 110.3 fL (80-100)
[2018-05-25 04:52] LABS: Albumin 2.3 g/dL (3.4-5.0); Bilirubin Total 0.2 mg/dL (0.2-1.0); Potassium 4.7 mmol/L (3.5-5.1); Protein, Total 5.2 g/dL (6.4-8.2)
[2018-05-25] MEDS: VANCOMYCIN ORAL SOLN 250 MG/5 ML OSYR PO SCH (06:23)
--- NOTE | 2018-05-25 07:52 | ECHO ---
HEIGHT: 5 ft 8 in WEIGHT: 163 lb 0 oz DATE OF STUDY: 05/24/[address]: Latrell Bingham MD 2-DIMENSIONAL: YES M.MODE: YES DOPPLER: YES COLOR FLOW: YES TDS: PORTABLE: DEFINITY: BUBBLE STUDY: DIAGNOSIS: CHEST PAIN CARDIAC HISTORY: CATHERIZATION: NO SURGERY: YES PROSTHETIC VALVE: NO PACEMAKER: NO MEASUREMENTS (cm) DIASTOLIC (NORMALS) SYSTOLIC (NORMALS) IVSd 1.0 (0.6-1.2) LA Diam 3.7 (1.9-4.0) LVEF 77% LVIDd 4.4 (3.5-5.7) LVIDs 2.4 (2.0-3.5) %FS 46% LVPWd 1.0 (0.6-1.2) Ao Diam 3.4 (2.0-3.7) 2 DIMENSIONAL ASSESSMENT: RIGHT ATRIUM: NORMAL LEFT ATRIUM: NORMAL RIGHT VENTRICLE: NORMAL LEFT VENTRICLE: NORMAL TRICUSPID VALVE: NORMAL MITRAL VALVE: NORMAL PULMONIC VALVE: NORMAL AORTIC VALVE: NORMAL PERICARDIAL EFFUSION: NONE AORTIC ROOT: NORMAL LEFT VENTRICULAR WALL MOTION: NORMAL DOPPLER/COLOR FLOW: NORMAL COMMENTS: NORMAL 2-DIMENSIONAL ECHOCARDIOGRAM WITH DOPPLER. NO WALL MOTION ABNORMALITY. NO EFFUSION. TECHNOLOGIST: YUKI SLOAN
[2018-05-25] MEDS: ASPIRIN 81 MG CHEWABLE TABLET PO SCH (10:16)
[2018-05-25] MEDS: METOPROLOL TAR 50 MG TAB PO SCH ×2 (10:16→20:55)
[2018-05-25] MEDS: GABAPENTIN 300 MG CAP PO SCH ×2 (10:16→20:54)
[2018-05-25] MEDS: SERTRALINE HCL 100 MG TAB PO SCH (10:17)
[2018-05-25] MEDS: metroNIDAZOLE 500 MG TABLET PO SCH ×3 (13:13→23:27)
--- NOTE | 2018-05-25 13:41 | P.PN ---
Subjective Date of Service: 05/25/18 Chief Complaint: Diarrhea, bandemia Patient seen and examined with RN. Chart reviewed. Currently patient does not have any complaints overnight. Has been having 2-3 bouts of loose stool today. C. diff culture is positive at this time. Denies having nausea or vomiting Review of Systems 10-point ROS is otherwise unremarkable Physical Examination - Vital Signs Temperature: 97.2 F Blood Pressure: 120/72 Pulse: 63 Respirations: 18 Pulse Ox (%): 97 - Physical Exam General: Alert, In no apparent distress HEENT: Atraumatic, PERRLA, EOMI Neck: Supple, JVD not distended Respiratory: Clear to auscultation bilaterally, Normal air movement Cardiovascular: Regular rate/rhythm, Normal S1 S2 Gastrointestinal: Normal bowel sounds, No tenderness Musculoskeletal: No tenderness Integumentary: No rashes Neurological: Normal speech, Normal tone, Normal affect Lymphatics: No axilla or inguinal lymphadenopathy - Studies Medications List Reviewed: Yes Assessment And Plan - Current Problems (Diagnosis) (1) Colitis due to Clostridium difficile Onset Date: 05/25/18 Current Visit: Yes Status: Acute Plan: Diarrhea and abdominal pain 2.2 to Colitis -Switched to PO flagyl now -CLD for now -Discharge in 24 to 48 hrs (2) Generalized weakness Onset Date: 05/03/18 Current Visit: No Status: Acute Plan: Generalized weakness 2.2 to Dehydration -Dehydration resolved now -Patient Ambulating (3) Hypernatremia Onset Date: 05/03/18 Current Visit: No Status: Acute Plan: Most likely 2.2 to IV fluids. -Stop fluids at this time (4) Bipolar disorder Onset Date: 02/23/18 Current Visit: No Status: Chronic Qualifiers: Active/Remission status: remission status unspecified Qualified Code(s): F31.9 - Bipolar disorder, unspecified (5) CAD (coronary artery disease) Onset Date: 02/23/18 Current Visit: No Status: Chronic Qualifiers: Coronary Disease-Associated Artery/Lesion type: [place] artery [place] vs. transplanted heart: [place] heart (6) Chronic kidney disease Onset Date: 05/03/18 Current Visit: No Status: Chronic Qualifiers: Chronic kidney disease stage: stage 3 (moderate) Qualified Code(s): N18.3 - Chronic kidney disease, stage 3 (moderate) Discharge Plan: Home Plan to discharge in: 48 Hours - Code Status/Comfort Care Code Status Assessed: Yes Critical Care: No
[2018-05-25] MEDS: DIVALPROEX DR 250 MG TAB PO SCH (20:53)
[2018-05-25] MEDS: DIVALPROEX DR 500MG TAB PO SCH (20:53)
[2018-05-25] MEDS: MIRTAZAPINE 15 MG TAB PO SCH (20:54)
[2018-05-25] MEDS: ATORVASTATIN 20 MG TAB PO SCH (20:54)
[2018-05-26 02:12] VITALS: O2SAT 97
[2018-05-26] MEDS: metroNIDAZOLE 500 MG TABLET PO SCH ×2 (05:40→11:30)
[2018-05-26] MEDS: SERTRALINE HCL 100 MG TAB PO SCH (09:09)
[2018-05-26] MEDS: ASPIRIN 81 MG CHEWABLE TABLET PO SCH (09:09)
[2018-05-26] MEDS: GABAPENTIN 300 MG CAP PO SCH (09:09)
[2018-05-26] MEDS: METOPROLOL TAR 50 MG TAB PO SCH (09:09)
[2018-05-26 11:02] LABS: Absolute Lymphocytes (CBC) 1.4 K/uL (0.7-4.9); Absolute Monocytes 0.4 K/uL (0.1-1.3); Absolute Neutrophil 3.2 K/uL (1.8-8.0); Basophils % 0.7 % (0-1.3); Eosinophils % 2.9 % (0-4.4); Hematocrit 38.3 % (39.6-49.0); Lymphocytes % 26.7 % (15.3-44.8); MCH 36.4 pg (27.0-35.0); MCV 109.6 fL (80-100); MPV 8.9 fL (7.6-11.3); Monocytes % 7.4 % (3.3-12.3)
[2018-05-26 11:39] LABS: Albumin 2.3 g/dL (3.4-5.0); Bilirubin Total 0.2 mg/dL (0.2-1.0); Potassium 4.9 mmol/L (3.5-5.1); Protein, Total 5.6 g/dL (6.4-8.2)
[2018-05-26 13:55] VITALS: BP 141/82; TEMP 97
--- NOTE | 2018-05-26 14:35 | P.DS ---
Admission Date: 05/24/18 Discharge Date: 05/26/18 Disposition: ROUTINE DISCHARGE Discharge Condition: GOOD Reason for Admission: Diarrhea, bandemia - Problems (1) Colitis due to Clostridium difficile Onset Date: 05/25/18 Status: Acute (2) Generalized weakness Onset Date: 05/03/18 Status: Acute (3) Hypernatremia Onset Date: 05/03/18 Status: Acute (4) Bipolar disorder Onset Date: 02/23/18 Status: Chronic Qualifiers: Active/Remission status: remission status unspecified Qualified Code(s): F31.9 - Bipolar disorder, unspecified (5) CAD (coronary artery disease) Onset Date: 02/23/18 Status: Chronic Qualifiers: Coronary Disease-Associated Artery/Lesion type: [place] artery [place] vs. transplanted heart: [place] heart (6) Chronic kidney disease Onset Date: 05/03/18 Status: Chronic Qualifiers: Chronic kidney disease stage: stage 3 (moderate) Qualified Code(s): N18.3 - Chronic kidney disease, stage 3 (moderate) Brief History of Present Illness: Mr Armijo is a 63-year-old male with history of coronary artery disease, hypertension, bipolar disorder, DOM, chronic kidney disease, who was previously admitted to the hospital due to acute diverticulitis about a month ago. He came to ER complaining of diarrhea starting today. He was feeling weak all day , and this afternoon, he became confused. He also states that has had chills, and felt like he has fever. He denied any nausea, vomiting or abdominal. He also denied cough or shortness of breath. Laboratory work is remarkable for normal WBC count, normal lactate and procalcitonin, however he has 6% of bands. At arrival he was afebrile, BP 106/68. Hospital Course: Overall during the hospital stay patient remained stable Patient was initially admitted to the hospital for generalized weakness most likely secondary to diarrhea and dehydration that he was having at home. Patient had extensive workup here and was found to have C. diff positive. Patient was initially started on the vancomycin orally however patient's insurance does not cover the medication and the pharmacy around does not have the medication and stock as well. Patient was thus switched over to p.o. Flagyl. Patient was advanced to a clear liquid diet. Patient had marked improvement in his symptoms and thus was discharged home under stable condition. Patient was asked to follow up with the GI doctor on discharge. While here in the hospital patient also had some electrolyte abnormality. Patient was having hypokalemia which was replaced with potassium supplements. Patient was also having hypernatremia and hyperchloremia most likely secondary to hydration. IV fluids were. Patient was encouraged to take oral fluids here in the hospital. Patient demonstrated understanding. Post patient was able to ambulate around the hospital with physical therapy with minimal assistance and thus was discharged home under stable condition. Patient was given prescription for Flagyl to be taken for total 14 days. Vital Signs/Physical Exam: Temp Pulse Resp BP Pulse Ox 97 F 79 18 141/82 H 97 05/26/18 12:00 05/26/18 12:00 05/26/18 12:00 05/26/18 12:00 05/26/18 12:00 General: Alert, In no apparent distress HEENT: Atraumatic, PERRLA, EOMI Neck: Supple, JVD not distended Respiratory: Clear to auscultation bilaterally, Normal air movement Cardiovascular: Regular rate/rhythm, Normal S1 S2 Gastrointestinal: Normal bowel sounds, No tenderness Musculoskeletal: No tenderness Integumentary: No rashes Neurological: Normal speech, Normal tone, Normal affect Lymphatics: No axilla or inguinal lymphadenopathy Laboratory Data at Discharge: WBC 5.2 K/uL (4.3-10.9) D 05/26/18 10:40 Hgb 12.7 g/dL (13.6-17.9) L 05/26/18 10:40 Hct 38.3 % (39.6-49.0) L 05/26/18 10:40 Plt Count 180 K/uL (152-406) 05/26/18 10:40 PT 11.3 SECONDS (9.5-12.5) 05/23/18 22:40 INR 0.96 05/23/18 22:40 APTT 24.8 SECONDS (24.3-36.9) 05/23/18 22:40 Sodium 148 mmol/L (136-145) H 05/26/18 10:40 Potassium 4.9 mmol/L (3.5-5.1) 05/26/18 10:40 BUN 26 mg/dL (7-18) H 05/26/18 10:40 Creatinine 2.20 mg/dL (0.55-1.3) H 05/26/18 10:40 Glucose 92 mg/dL (74-106) 05/26/18 10:40 Magnesium 2.1 mg/dL (1.8-2.4) 05/23/18 22:40 Total Bilirubin 0.2 mg/dL (0.2-1.0) 05/26/18 10:40 AST 12 U/L (15-37) L 05/26/18 10:40 ALT 16 U/L (12-78) 05/26/18 10:40 Alkaline Phosphatase 88 U/L (45-117) 05/26/18 10:40 Home Medications: Divalproex [Depakote Delayed Release*] 1,000 mg PO BEDTIME 11/09/11 Divalproex [Depakote Delayed Release*] 250 mg PO BEDTIME 11/09/11 Sertraline HCl [Zoloft] 100 mg PO DAILY 11/09/11 Mirtazapine [Remeron] 30 mg PO BEDTIME #30 tab 05/13/12 Metoprolol Tartrate [Lopressor*] 50 mg PO DAILY WITH BREAKFAST 04/30/18 Gabapentin [Neurontin*] 1 cap PO BID 05/02/18 Aspirin [Valerie Chewable] 81 mg PO DAILY 05/24/18 Metoprolol Tartrate [Lopressor] 75 mg PO BEDTIME 05/24/18 Simvastatin 40 mg PO BEDTIME 05/24/18 metroNIDAZOLE [Flagyl] 500 mg PO Q8H #42 tablet 05/26/18 New Medications: metroNIDAZOLE [Flagyl] 500 mg PO Q8H #42 tablet Patient Discharge Instructions: please f.u with GI in 1 to 2 week post discharge. New Medication. flagyl 500mg q8h for 14 days Diet: Regular Activity: Ad sergey Followup: Chu Zhu MD [ACTIVE - CAN ADMIT] - 1 Week (call to schedule appointment)
== END 2018-05-26 14:05 | disposition home or self-care (01) ==
LOC: ER 21:23 → ERHOLD 05-24 01:16 → 4TH 05-24 02:39
PROVIDERS: ADMIT Internal Medicine; ATTEND Family Medicine
DX: A04.72 Enterocolitis due to Clostridium difficile, not specified as recurrent (principal); E86.0 Dehydration; R53.1 Weakness; E87.0 Hyperosmolality and hypernatremia; F31.9 Bipolar disorder, unspecified; I25.10 Atherosclerotic heart disease of native coronary artery without angina pectoris; N18.3 Chronic kidney disease, stage 3 (moderate); I12.9 Hypertensive chronic kidney disease with stage 1 through stage 4 chronic kidney disease, or unspecified chronic kidney disease; E87.6 Hypokalemia; Z79.82 Long term (current) use of aspirin; G47.33 Obstructive sleep apnea (adult) (pediatric); Z95.1 Presence of aortocoronary bypass graft; E78.5 Hyperlipidemia, unspecified; G47.00 Insomnia, unspecified; G93.40 Encephalopathy, unspecified; F17.210 Nicotine dependence, cigarettes, uncomplicated
CPT/HCPCS: 36415; 70450; 71045; 74176; 80048; 80053; 80076; 81003; 82550; 82553; 82805; 83605; 83735; 83880; 84145; 84484; 85025; 85610; 85730; 87040; 87045; 87046; 87493; 87804; 93005; 93306; 96360; 96361; 99285; G0378; J0744; J7030

== ENCOUNTER 2018-08-04 20:46 | Inpatient (IN) | payer OTHER ==
[2018-08-04] MEDS ORDERED: NA CHLORIDE 0.9% 2,000 ML ONE (21:15)
[2018-08-04 21:20] LABS: Absolute Lymphocytes (CBC) 1.1 K/uL (0.7-4.9); Absolute Monocytes 1.7 K/uL (0.1-1.3); Absolute Neutrophil 10.2 K/uL (1.8-8.0); Basophils % 0.3 % (0-1.3); Hematocrit 44.9 % (39.6-49.0); Lymphocytes % 8.4 % (15.3-44.8); MCH 34.6 pg (27.0-35.0); MCV 107.7 fL (80-100); MPV 8.8 fL (7.6-11.3); Monocytes % 13.1 % (3.3-12.3); RBC Red Blood Cell Count 4.17 M/uL (4.33-5.43)
--- NOTE | 2018-08-04 21:20 | RAD REPORT ---
EXAM DESCRIPTION: RAD - Chest Single View - 08/04/2018 9:06 pm CLINICAL HISTORY: FEVER Chest pain. COMPARISON: Chest Single View dated 05/23/2018; Chest Single View dated 04/30/2018; Chest Pa And Lat (2 Views) dated 02/22/2018; CHEST SINGLE VIEW dated 11/01/2012 FINDINGS: Portable technique limits examination quality. The lungs are grossly clear. The heart is normal in size. No displaced fractures.Sternotomy wires not ed. IMPRESSION: No acute intrathoracic process suspected.
[2018-08-04 21:44] LABS: Urine RBC <5 /HPF (NONE SEEN)
[2018-08-04 21:45] LABS: Urine Bacteria 20-50 /HPF (NONE SEEN); Urine Culture Reflex Order NOT NEEDED
[2018-08-04 21:51] LABS: ALT/SGPT 15 U/L (12-78); AST/SGOT 9 U/L (15-37); Alkaline Phosphatase 96 U/L (45-117); BUN Blood Urea Nitrogen 30 mg/dL (7-18); Bicarbonate 22 mmol/L (21-32); Bilirubin Direct 0.2 mg/dL (0-0.2); Bilirubin Total 0.5 mg/dL (0.2-1.0); CKMB Creatine Kinase MB < 1.0 ng/mL (0.3-3.6); Creatine Phosphokinase 106 U/L (39-308); Glucose Level 81 mg/dL (74-106); Lipase 83 U/L (73-393); Potassium 4.4 mmol/L (3.5-5.1); Protein, Total 6.5 g/dL (6.4-8.2); Sodium Level 145 mmol/L (136-145); Troponin (Emerg Dept Use Only) < 0.02 ng/mL (0.0-0.045)
[2018-08-04 21:58] LABS: Urine Blood 2+ (NEG); Urine Glucose NEGATIVE (NEG); Urine Protein 1+ (NEG)
[2018-08-04 22:04] LABS: Blood Morphology Comment NOTED (NOT SEEN); Macrocytosis 1+; Platelet Estimate DECR
[2018-08-04] MEDS ORDERED: ONDANSETRON 4 MG/2 ML VIAL IV PRN (22:23)
[2018-08-04] MEDS ORDERED: CEFTRIAXONE/SWI 1gm 1 GM/10 ML SYR ONE (22:27)
[2018-08-04] MEDS ORDERED: Levofloxacin500mg IV 500 MG/100 ML BAG IV ONE (22:27)
--- NOTE | 2018-08-04 22:28 | EDPHYS ---
Physician Documentation [facility] Name: Kavin Armijo Age: 63 yrs Sex: Male : 1955 Arrival Date: 08/04/2018 Time: 20:47 Bed 4 Private MD: ED Physician Krzysztof Vaughn HPI: 08/05 06:33 This 63 yrs old Male presents to ER via EMS with complaints of Fever. tw4 06:33 The patient reports fever, not measured (subjective). Onset: The symptoms/episode tw4 began/occurred today. Modifying factors: there are no obvious modifying factors. Associated signs and symptoms: Pertinent positives: abdominal pain. Severity of symptoms: At their worst the symptoms were moderate in the emergency department the symptoms are unchanged. The patient has not experienced similar symptoms in the past. Historical: - Allergies: 08/04 20:56 Phenergan; ao - Home Meds: 20:56 amlodipine 10 mg tab 1 tab once daily [Active]; divalproex 250 mg Oral Tb24 once daily ao [Active]; divalproex 500 mg Oral TbEC 2 tabs once daily [Active]; simvastatin 40 mg Oral tab 1 tab once daily [Active]; metoprolol tartrate 25 mg Oral tab 1 tab 2 times per day [Active]; gabapentin 300 mg Oral cap 1 cap two times per day [Active]; mirtazapine 30 mg Oral TbDL 1 tab once daily [Active]; sertraline 100 mg Oral tab 1 tab once daily [Active]; - PMHx: 20:56 anmesia; Bipolar disorder; Hypertension; Renal Disease; Sleep Apnea; ao - PSHx: 20:56 Triple Bypass; Knee surgery; ao - Immunization history:: Adult Immunizations up to date. - Social history:: Smoking status: Patient uses tobacco products, smokes one pack cigarettes per day. Patient/guardian denies using alcohol, street drugs. - Ebola Screening: : Patient negative for fever greater than or equal to 101.5 degrees Fahrenheit, and additional compatible Ebola Virus Disease symptoms Patient denies exposure to infectious person Patient denies travel to an Ebola-affected area in the 21 days before illness onset. ROS: 08/05 06:33 Eyes: Negative for injury, pain, redness, and discharge, ENT: Negative for injury, tw4 pain, and discharge, Cardiovascular: Negative for chest pain, palpitations, and edema, Respiratory: Negative for shortness of breath, cough, wheezing, and pleuritic chest pain, Abdomen/GI: Negative for abdominal pain, nausea, vomiting, diarrhea, and constipation, Back: Negative for injury and pain, MS/Extremity: Negative for injury and deformity, Skin: Negative for injury, rash, and discoloration, Neuro: Negative for headache, weakness, numbness, tingling, and seizure. Constitutional: Positive for fever. Exam: 06:33 Constitutional: This is a well developed, well nourished patient who is awake, alert, tw4 and in no acute distress. Head/Face: Normocephalic, atraumatic. Chest/axilla: Normal chest wall appearance and motion. Nontender with no deformity. No lesions are appreciated. Cardiovascular: Regular rate and rhythm with a normal S1 and S2. No gallops, murmurs, or rubs. Normal PMI, no JVD. No pulse deficits. Respiratory: Lungs have equal breath sounds bilaterally, clear to auscultation and percussion. No rales, rhonchi or wheezes noted. No increased work of breathing, no retractions or nasal flaring. Abdomen/GI: Soft, non-tender, with normal bowel sounds. No distension or tympany. No guarding or rebound. No evidence of tenderness throughout. Back: No spinal tenderness. No costovertebral tenderness. Full range of motion. MS/ Extremity: Pulses equal, no cyanosis. Neurovascular intact. Full, normal range of motion. Neuro: Awake and alert, GCS 15, oriented to person, place, time, and situation. Cranial nerves II-XII grossly intact. Motor strength 5/5 in all extremities. Sensory grossly intact. Cerebellar exam normal. Normal gait. Vital Signs: 08/04 20:35 BP 127 / 75; Pulse 91; Resp 16; Temp 100.1(O); Pulse Ox 99% on R/A; Weight 68.95 kg ao (R); Height 5 ft. 8 in. (172.72 cm) (R); Pain 0/10; 21:26 BP 101 / 72; Pulse 88; Resp 18; Pulse Ox 99% on R/A; rr5 21:51 BP 113 / 76; Pulse 89; Resp 17; Temp 99.5(O); Pulse Ox 98% on R/A; rr5 22:52 BP 114 / 73; Pulse 92; Resp 18; Pulse Ox 100% on R/A; ea 23:20 BP 124 / 78; Pulse 91; Resp 18; Pulse Ox 100% on R/A; ea 20:35 Body Mass Index 23.11 (68.95 kg, 172.72 cm) ao MDM: 20:48 Patient medically screened. 4 08/05 06:33 Data reviewed: vital signs, nurses notes. Counseling: I had a detailed discussion with tw4 the patient and/or guardian regarding: the historical points, exam findings, and any diagnostic results supporting the discharge/admit diagnosis. Physician consultation: Arabella Domínguez MD regarding admission, patient's condition, need to come to ED to see patient, and will see patient. 06:33 Special discussion: I discussed with the patient/guardian in detail that at this point [facility] there is no indication for admission to the hospital. It is understood, however, that if the symptoms persist or worsen the patient needs to return immediately for re-evaluation. 08/04 20:49 Order name: Urine Culture [facility] 08/04 20:49 Order name: CDIFF [facility] 08/04 20:49 Order name: Basic Metabolic Panel; Complete Time: 22:15 [facility] 08/04 22:15 Interpretation: Normal except: CL 112; BUN 30; CRE 3.00; GFR 21. [facility] 08/04 20:49 Order name: Blood Culture Adult (2) [facility] 08/04 20:49 Order name: CBC with Diff; Complete Time: 22:15 [facility] 08/04 22:15 Interpretation: Normal except: WBC 13.1; RBC 4.17; PLT 87; MCV 107.7. 4 08/04 20:49 Order name: Ckmb; Complete Time: 22:13 [facility] 08/04 22:13 Interpretation: Within normal limits: CKMB < 1.0. [facility] 08/04 20:49 Order name: CPK; Complete Time: 22:13 [facility] 08/04 22:13 Interpretation: Within normal limits: CPK 106. [facility] 08/04 20:49 Order name: Lactate; Complete Time: 22:13 [facility] 08/04 22:13 Interpretation: Within normal limits: LAC 1.6. [facility] 08/04 20:49 Order name: LFT's; Complete Time: 22:15 [facility] 08/04 22:15 Interpretation: Normal except: AST 9; ALB 3.0; A/G 0.9. [facility] 08/04 20:49 Order name: Lipase; Complete Time: 22:14 [facility] 08/04 22:14 Interpretation: Within normal limits: LIP 83. [facility] 08/04 20:49 Order name: Procalcitonin [facility] 08/04 20:49 Order name: Protime (+inr); Complete Time: 22:14 [facility] 08/04 22:14 Interpretation: Within normal limits: PT 11.8. [facility] 08/04 20:49 Order name: Ptt, Activated; Complete Time: 22:14 [facility] 08/04 22:14 Interpretation: Within normal limits: PTT 27.2. [facility] 08/04 20:49 Order name: Troponin (emerg Dept Use Only); Complete Time: 22:14 [facility] 08/04 22:14 Interpretation: TROPED < 0.02. [facility] 08/04 20:49 Order name: Urine Microscopic Only; Complete Time: 22:15 [facility] 08/04 22:15 Interpretation: Normal except: UBACT 20-50; UWBC 20-50. [facility] 08/04 20:49 Order name: Chest Single View XRAY; Complete Time: 22:14 [facility] 08/04 21:16 Order name: Urine Dipstick--Ancillary (enter results); Complete Time: 22:14 [facility] 08/04 22:14 Interpretation: UESTR 3+; UPROT 1+; UBLD 2+. [facility] 08/04 22:01 Order name: Manual Differential; Complete Time: 22:13 [facility] 08/04 22:13 Interpretation: Normal except: BANDS [F] 9; LYM 10; META 1. [facility] 08/04 22:32 Order name: Basic Metabolic Panel [facility] 08/04 22:32 Order name: Basic Metabolic Panel [facility] 08/04 22:32 Order name: Basic Metabolic Panel [facility] 08/04 22:32 Order name: Basic Metabolic Panel [facility] 08/04 22:32 Order name: Comprehensive Metabolic Panel [facility] 08/04 22:34 Order name: Social Service Consult [facility] 08/04 22:34 Order name: Troponin I [facility] 08/04 20:49 Order name: Accucheck; Complete Time: 21:26 [facility] 08/04 20:49 Order name: Cardiac monitoring; Complete Time: :18 tw4 08/04 20:49 Order name: EKG - Nurse/Tech; Complete Time: :18 tw4 08/04 20:49 Order name: IV Saline Lock - Large Bore; Complete Time: 21:18 tw4 08/04 20:49 Order name: Labs collected and sent; Complete Time: 21:18 tw4 08/04 20:49 Order name: O2 Per Protocol; Complete Time: :18 tw4 08/04 20:49 Order name: O2 Sat Monitoring; Complete Time: 21:18 tw4 08/04 20:49 Order name: Urine Dipstick-Ancillary (obtain specimen); Complete Time: : tw4 EC/21 22:55 Rate is 668 beats/min. Rhythm is regular. QRS [place] is Normal. NC interval is normal. tw4 QRS interval is normal. QT interval is normal. No Q waves. T waves are Inverted in leads V4, V5. No ST changes noted. Clinical impression: NSR w/ Non-specific ST/T Changes and Abnormal EKG without significant change. Interpreted by me. Reviewed by me. Administered Medications: 20:55 Drug: NS 0.9% (30 ml/kg) 30 ml/kg Route: IV; Rate: bolus; Site: right forearm; rr5 23:17 Follow up: Response: No adverse reaction; IV Status: Completed infusion ea 22:20 Drug: Rocephin - (cefTRIAXone) 1 grams Route: IVPB; Infused Over: 30 mins; Site: right ea antecubital; 23:00 Follow up: Response: No adverse reaction; IV Status: Completed infusion ea 22:31 Drug: LevaQUIN 500 mg Volume: 100 ml; Route: IVPB; Infused Over: 60 mins; Site: right ea antecubital; 23:18 Follow up: Response: No adverse reaction; IV Status: Completed infusion ea Point of Care Testing: Blood Glucose: 21:22 Blood Glucose: 116 mg/dL; rr5 Ranges: Critical Glucose Levels:Adult <50 mg/dl or >400 mg/dl <40 mg/dl or >180 mg/dl Disposition: 08/04/18 22:27 Hospitalization ordered by Arabella Domínguez for Inpatient Admission. Preliminary diagnosis are Urinary tract infection, site not specified, Fever presenting with conditions classified elsewhere, Bandemia. - Bed requested for Telemetry/MedSurg (Inpatient). - Status is Inpatient Admission. ea - Condition is Stable. - Problem is new. - Symptoms are unchanged. UTI on Admission? Yes Signatures: Dispatcher [employer] EDKY Dragan Cheney, RN RN Carey Causey RN RN ea Wadley, Terrence, MD MD tw4 Regan, MyKen mw2 Abner De Anda RN RN rr5 Corrections: (The following items were deleted from the chart) 20:52 20:50 BILIRUBIN, DIRECT+C.LAB.BRZ ordered. EDKY EDMS 21:41 21:14 UA MICROSCOPIC+U.LAB.BRZ ordered. [facility] EDKY 22:53 22:27 Hospitalization Ordered by Arabella Domínguez MD for Inpatient Admission. Preliminary mw2 diagnosis is Urinary tract infection, site not specified; Fever presenting with conditions classified elsewhere; Bandemia. Bed requested for Telemetry/MedSurg (Inpatient). Status is Inpatient Admission. Condition is Stable. Problem is new. Symptoms are unchanged. UTI on Admission? Yes. tw4 23:21 22:53 08/04/2018 22:27 Hospitalization Ordered by Arabella Domínguez MD for Inpatient ea Admission. Preliminary diagnosis is Urinary tract infection, site not specified; Fever presenting with conditions classified elsewhere; Bandemia. Bed requested for Telemetry/MedSurg (Inpatient). Status is Inpatient Admission. Condition is Stable. Problem is new. Symptoms are unchanged. UTI on Admission? Yes. mw2
--- NOTE | 2018-08-04 22:28 | ER ---
Nurse's Notes [facility] Name: Kavin Armijo Age: 63 yrs Sex: Male : 1955 Arrival Date: 08/04/2018 Time: 20:47 Bed 4 Private MD: Diagnosis: Urinary tract infection, site not specified;Fever presenting with conditions classified elsewhere;Bandemia Presentation: 08/04 20:35 Presenting complaint: EMS states: Tone up for uncoordinated gait and high temperature ao of 103.1. Patient states having some urinary incontinence also. Patient had a colonoscopy on Thursday and had a Polyp removed. Now patient is having bloody stool also. Transition of care: patient was not received from another setting of care. Onset of symptoms is unknown. Risk Assessment: Do you want to hurt yourself or someone else? Patient reports no desire to harm self or others. Initial Sepsis Screen: Does the patient meet any 2 criteria? Temp <36.0*C (96.8*F)) or > 38.3*C (100.9*F). HR > 90 bpm. Yes Does the patient have a suspected source of infection? No. Patient's initial sepsis screen is negative. Care prior to arrival: None. 20:35 Method Of Arrival: EMS: [facility] ao 20:49 Acuity: [place]ANN[place] 2 ao Historical: - Allergies: 20:56 Phenergan; ao - Home Meds: 20:56 amlodipine 10 mg tab 1 tab once daily [Active]; divalproex 250 mg Oral Tb24 once daily ao [Active]; divalproex 500 mg Oral TbEC 2 tabs once daily [Active]; simvastatin 40 mg Oral tab 1 tab once daily [Active]; metoprolol tartrate 25 mg Oral tab 1 tab 2 times per day [Active]; gabapentin 300 mg Oral cap 1 cap two times per day [Active]; mirtazapine 30 mg Oral TbDL 1 tab once daily [Active]; sertraline 100 mg Oral tab 1 tab once daily [Active]; - PMHx: 20:56 anmesia; Bipolar disorder; Hypertension; Renal Disease; Sleep Apnea; ao - PSHx: 20:56 Triple Bypass; Knee surgery; ao - Immunization history:: Adult Immunizations up to date. - Social history:: Smoking status: Patient uses tobacco products, smokes one pack cigarettes per day. Patient/guardian denies using alcohol, street drugs. - Ebola Screening: : Patient negative for fever greater than or equal to 101.5 degrees Fahrenheit, and additional compatible Ebola Virus Disease symptoms Patient denies exposure to infectious person Patient denies travel to an Ebola-affected area in the 21 days before illness onset. Screenin:58 Abuse screen: Denies threats or abuse. Denies injuries from another. Nutritional ao screening: No deficits noted. Tuberculosis screening: No symptoms or risk factors identified. Fall Risk Fall in past 12 months (25 points). No secondary diagnosis (0 pts). Assessment: 20:35 General: Appears in no apparent distress. distressed, Behavior is calm, cooperative. rr5 20:35 Pain: Complains of pain in low back area Pain does not radiate. Pain currently is 5 out rr5 of 10 on a pain scale. Quality of pain is described as aching, Pain began gradually, Is intermittent, Aggravated by increased activity. Neuro: Level of Consciousness is awake, alert, obeys commands, Oriented to person, place, time, situation. Neuro: Gait is unsteady, shuffling. Cardiovascular: Denies chest pain, Capillary refill < 3 seconds Patient's skin is warm and dry. Respiratory: Airway is patent Respiratory effort is even, unlabored, Respiratory pattern is regular, symmetrical. GI: Abdomen is flat. GI: Reports had coloscopy last Thursday and removal of polyps. : No signs and/or symptoms were reported regarding the genitourinary system. Reports incontinence. EENT: No signs and/or symptoms were reported regarding the EENT system. Derm: Skin is fragile, is thin, hematoma at right forearm. Musculoskeletal: Reports pain in low back area. 21:50 Reassessment: Patient and/or family updated on plan of care and expected duration. Pain ea level reassessed. Patient is alert, oriented x 3, equal unlabored respirations, skin warm/dry/pink. 22:07 Reassessment: Received lab alert bands 9% Dr gunderson was notified. ao 22:30 Reassessment: Patient and/or family updated on plan of care and expected duration. Pain ea level reassessed. Patient is alert, oriented x 3, equal unlabored respirations, skin warm/dry/pink. 23:16 Reassessment: Patient and/or family updated on plan of care and expected duration. Pain ea level reassessed. Patient is alert, oriented x 3, equal unlabored respirations, skin warm/dry/pink. Report called to Caroline FERRO. Vital Signs: 20:35 BP 127 / 75; Pulse 91; Resp 16; Temp 100.1(O); Pulse Ox 99% on R/A; Weight 68.95 kg ao (R); Height 5 ft. 8 in. (172.72 cm) (R); Pain 0/10; 21:26 BP 101 / 72; Pulse 88; Resp 18; Pulse Ox 99% on R/A; rr5 21:51 BP 113 / 76; Pulse 89; Resp 17; Temp 99.5(O); Pulse Ox 98% on R/A; rr5 22:52 BP 114 / 73; Pulse 92; Resp 18; Pulse Ox 100% on R/A; ea 23:20 BP 124 / 78; Pulse 91; Resp 18; Pulse Ox 100% on R/A; ea 20:35 Body Mass Index 23.11 (68.95 kg, 172.72 cm) ao ED Course: 20:35 Inserted saline lock: 20 gauge in right forearm, using aseptic technique. Blood rr5 collected. 20:47 Patient arrived in ED. al2 20:48 Krzysztof Gunderson MD is Attending Physician. tw4 20:48 Abner De Anda RN is Primary Nurse. rr5 20:52 Triage completed. ao 20:56 Arm band placed on right wrist. Patient placed in an exam room, on a stretcher, on ao sales data analyst, on pulse oximetry, Patient notified of wait time. 20:59 Patient has correct armband on for positive identification. security and privacy consultant on. Pulse ao ox on. NIBP on. 21:04 Chest Single View XRAY In Process Unspecified. EDMS 22:26 Arabella Domínguez MD is Hospitalizing Provider. tw4 22:52 No provider procedures requiring assistance completed. Patient admitted, IV remains in ea place. Administered Medications: 20:55 Drug: NS 0.9% (30 ml/kg) 30 ml/kg Route: IV; Rate: bolus; Site: right forearm; rr5 23:17 Follow up: Response: No adverse reaction; IV Status: Completed infusion ea 22:20 Drug: Rocephin - (cefTRIAXone) 1 grams Route: IVPB; Infused Over: 30 mins; Site: right ea antecubital; 23:00 Follow up: Response: No adverse reaction; IV Status: Completed infusion ea 22:31 Drug: LevaQUIN 500 mg Volume: 100 ml; Route: IVPB; Infused Over: 60 mins; Site: right ea antecubital; 23:18 Follow up: Response: No adverse reaction; IV Status: Completed infusion ea Point of Care Testing: Blood Glucose: 21:22 Blood Glucose: 116 mg/dL; rr5 Ranges: Outcome: 22:27 Decision to Hospitalize by Provider. tw4 23:00 Admitted to Med/surg accompanied by tech, room 202, Report called to Caroline FERRO ea 23:00 Condition: stable 23:00 Instructed on the need for admit, Demonstrated understanding of instructions. 23:21 Patient left the ED. ea Signatures: Dispatcher [employer] EDDragan Cabello RN RN ao Antunez, Elena, RN RN ea Love, Angelica al2 Krzysztof Gunderson MD MD tw4 Abner De Anda RN RN rr5 Corrections: (The following items were deleted from the chart) 20:58 20:49 Presenting complaint: EMS states: Tone up for uncoordinated gait and high ao temperature of 103.1. Patient states having some urinary incontinence also. Patient had a colonoscopy on Thursday and had a Polyp removed. Now patient is having bloody stool also. ao 20:58 20:49 Transition of care: patient was not received from another setting of care. ao ao 20:58 20:49 Onset of symptoms is unknown. ao ao 20:58 20:49 Risk Assessment: Do you want to hurt yourself or someone else? Patient reports no ao desire to harm self or others. ao 20:58 20:49 Initial Sepsis Screen: Does the patient meet any 2 criteria? Temp <36.0*C ao (96.8*F)) or > 38.3*C (100.9*F). HR > 90 bpm. Yes Does the patient have a suspected source of infection? No. Patient's initial sepsis screen is negative. ao 20:58 20:49 Care prior to arrival: None. ao ao 20:58 20:49 Method Of Arrival: EMS: [facility] ao ao
[2018-08-05] MEDS: NA CHLORIDE 0.9% 1,000 ML IV SCH ×2 (00:05→11:24)
[2018-08-05] MEDS: PANTOPRAZOLE 40MG TABLET PO SCH (05:12)
[2018-08-05 05:35] LABS: Absolute Lymphocytes (CBC) 1.5 K/uL (0.7-4.9); Absolute Neutrophil 11.2 K/uL (1.8-8.0); Basophils % 0.2 % (0-1.3); Hematocrit 39.9 % (39.6-49.0); MCH 35.5 pg (27.0-35.0); MPV 8.3 fL (7.6-11.3); Monocytes % 13.4 % (3.3-12.3); RBC Red Blood Cell Count 3.76 M/uL (4.33-5.43)
[2018-08-05 05:40] LABS: MCV 106.2 fL (80-100)
[2018-08-05 05:58] LABS: Albumin 2.4 g/dL (3.4-5.0); Bilirubin Total 0.4 mg/dL (0.2-1.0); Magnesium 1.8 mg/dL (1.8-2.4); Phosphorus 2.2 mg/dL (2.5-4.9); Potassium 4.8 mmol/L (3.5-5.1); Protein, Total 5.4 g/dL (6.4-8.2)
[2018-08-05] MEDS ORDERED: MAGNESIUM SULFATE 1 gm IVPB 1 GM/100 ML BAG IV ONE (06:05)
[2018-08-05] MEDS ORDERED: POTASS/SODIUM PHOSPHATE 1 PKT POWD.PACK PO ONE (06:06)
[2018-08-05] MEDS ORDERED: PNEUMOCOCCAL VACCINE 0.5 ML IMVAC ONE (08:00)
[2018-08-05] MEDS ORDERED: CEFTRIAXONE 1 GM/NS 50 ML 1 GM/50 ML BAG IV SCH (09:00)
[2018-08-05] MEDS ORDERED: ENOXAPARIN 30 MG/0.3 ML SQ SCH (09:00)
[2018-08-05] MEDS ORDERED: ENOXAPARIN 40 MG/0.4 ML SQ SCH (09:00)
--- NOTE | 2018-08-05 09:41 | EKG ---
Test Date: 2018-08-04 Test Time: 20:46:01 Imager: PEREZ MEASUREMENT RESULTS: Intervals: Rate: 86 CT: 134 QRSD: 82 QT: 372 QTc: 445 [place]: P: 70 CT: 134 QRS: 85 T: 100 INTERPRETIVE STATEMENTS: Normal sinus rhythm Nonspecific ST and T wave abnormality Abnormal ECG Compared to ECG 05/23/2018 21:54:21 ST (T wave) deviation now present Electronically Signed On 08-05-18 09:40:33 MINISTER HELPER by Yousif Lara
[2018-08-05] MEDS: ACETAMINOPHEN 500 MG TAB PO PRN (11:01)
[2018-08-05] MEDS: NACHLORIDE 0.45% 1,000 ML IV SCH ×2 (14:26→20:10)
--- NOTE | 2018-08-05 14:47 | RAD REPORT ---
EXAM DESCRIPTION: CT - Head Brain Wo Cont - 08/05/2018 2:27 pm CLINICAL HISTORY: r/o TIA TIA/CVA COMPARISON: Head Brain Wo Cont dated 05/24/2018; Head Brain Wo Cont dated 04/30/2018 TECHNIQUE: All CT scans are performed using dose optimization technique as appropriate and may inclu de automated exposure control or mA/KV adjustment according to patient size. FINDINGS: No intracranial hemorrhage, hydrocephalus or extra-axial fluid collection.Advanced general ized brain atrophy is present with mild periventricular and deep white matter chronic microvascular i schemic changes.No areas of brain edema or evidence of midline shift. The paranasal sinuses and mastoids are clear. The calvarium is intact. IMPRESSION: No acute intracranial abnormality. Prominent global brain atrophy.
--- NOTE | 2018-08-05 14:49 | RAD REPORT ---
EXAM DESCRIPTION: US - Renal Ultrasound-Complete - 08/05/2018 2:20 pm CLINICAL HISTORY: kidneys eval Flank pain COMPARISON: Renal Ultrasound-Complete dated 07/15/2017 FINDINGS: Both kidneys are significantly echogenic. Several bilateral benign appearing renal cysts a re noted. The right kidney measures 10.0 x 5.6 x 4.7 cm. No hydronephrosis, focal mass or perinephric fluid. The left kidney measures 11.4 x 5.6 x 5.4 cm. No hydronephrosis, focal mass or perinephric fluid. The urinary bladder is incompletely distended without gross abnormality seen. IMPRESSION: Significantly echogenic kidneys compatible with underlying medical renal disease.
--- NOTE | 2018-08-05 18:02 | P.PN ---
Subjective Date of Service: 08/06/18 Subjective: No new changes, No C/O voiced Patient seen and examined at bedside. Chart reviewed and case discussed with nursing staff. Patient reports feeling better, sleepy and tired otherwise no concerns or complaints. Review of Systems As noted Physical Examination - Vital Signs Temperature: 97.4 F Blood Pressure: 134/75 Pulse: 88 Respirations: 16 Pulse Ox (%): 96 - Physical Exam General: Alert, In no apparent distress, Other (Sleepy) HEENT: Atraumatic, PERRLA, EOMI Neck: Supple, JVD not distended Respiratory: Clear to auscultation bilaterally, Normal air movement Cardiovascular: Regular rate/rhythm, Normal S1 S2 Gastrointestinal: Normal bowel sounds, No tenderness Musculoskeletal: No tenderness Integumentary: No rashes Neurological: Normal speech, Normal tone, Normal affect - Studies Laboratory Data (last 24 hrs) 08/04/18 20:35: PT 11.8, INR 1.00, APTT 27.2 08/04/18 20:35: WBC 13.1 H, Hgb 14.4, Hct 44.9, Plt Count 87 L 08/04/18 20:35: Sodium 145, Potassium 4.4, BUN 30 H, Creatinine 3.00 H, Glucose 81, Total Bilirubin 0.5, AST 9 L, ALT 15, Alkaline Phosphatase 96, Lipase 83 Assessment And Plan - Plan This is a 63-year-old male with: Urinary tract infection Patient with recent hospitalization, multiple antibiotics. Urine analysis with evidence of the UTI. Urine cultures pending. Continued IV antibiotics Generalized weakness Physical therapy Consult Hypoalbuminemia Chronic kidney disease, stage III Nephrology consulted Continue to monitor renal function via am labs. Essential Hypertension Blood pressure on the lower end. Hold blood pressure medications at this time. DVT prophylaxis: Lovenox GI prophylaxis: Not needed Diet: Heart healthy Disposition: Pending symptomatic treatment.
--- NOTE | 2018-08-05 20:53 | P.CNS ---
Date of Consult: 08/05/18 Reason for Consult: CKD Chief Complaint: feeling weak and gait abnormality History of Present Illness: A 63-year-old gentleman, who follows up with Dr. Valenzuela with PMhx of coronary artery disease, status post CABG; hypertension; chronic kidney disease stage 3B/4 secondary to hypertension, nephrosclerosis, and renal vascular disease, bipolar disorder Pt presented with weakness and gait abnormality , started on the day of admission Pt had colonoscopy 2 days befor eadmission after which , he didnt feel good , with genralized weakness and gait abnormality no head trauma, chest pain, palpitation, nausea, vomiting or diarrhea Allergies promethazine HCl [From Phenergan] Allergy (Severe, Verified 04/30/18 21:07) Shortness of breath chlorpromazine HCl [From Thorazine] Allergy (Intermediate, Verified 05/24/18 02: 14) Hives/Rash, Nausea Home Medications: Amlodipine [Norvasc*] 10 mg PO DAILY 08/05/18 Divalproex ER [Depakote *ER] 750 mg PO BEDTIME 08/05/18 Gabapentin [Neurontin*] 300 mg PO BID 08/05/18 Metoprolol Tartrate [Lopressor*] 50 mg PO BID 08/05/18 Mirtazapine [Remeron*] 30 mg PO DAILY 08/05/18 Sertraline [Zoloft*] 100 mg PO DAILY 08/05/18 Simvastatin 40 mg PO DAILY 08/05/18 - Past Medical/Surgical History Diabetic: No -: sleep apnea -: ckd -: cvd -: manic bipolar -: chonic back/neck issues -: hypertension -: hyperlipidemia -: insomnia -: dvt right calf (knee fracture) -: amnesia -: cabg -: cholecystectomy - Family History Mother Medical History: Heart disease Notes: polycythemia, [place] Father Medical History: Other (see notes) Notes: pancreatic cancer - Social History Smoking Status: Current every day smoker Alcohol use: No CD- Drugs: No Caffeine use: Yes Place of Residence: Home Physical Examination Temp Pulse Resp BP Pulse Ox 97.9 F 95 H 16 108/56 L 96 08/05/18 20:00 08/05/18 20:00 08/05/18 20:00 08/05/18 20:00 08/05/18 20:00 General: Oriented x3 HEENT: Atraumatic Neck: Without JVD or thyroid abnormality Respiratory: Clear to auscultation bilaterally, Normal air movement Cardiovascular: No edema, Normal pulses, Regular rate/rhythm, Normal S1 S2, No rubs, No murmurs Gastrointestinal: Normal bowel sounds Laboratory Data (last 24 hrs) 08/04/18 20:35: PT 11.8, INR 1.00, APTT 27.2 08/04/18 20:35: WBC 13.1 H, Hgb 14.4, Hct 44.9, Plt Count 87 L 08/04/18 20:35: Sodium 145, Potassium 4.4, BUN 30 H, Creatinine 3.00 H, Glucose 81, Total Bilirubin 0.5, AST 9 L, ALT 15, Alkaline Phosphatase 96, Lipase 83 - Problems (1) Altered mental status Onset Date: 02/23/18 Current Visit: No Status: Acute (2) Generalized weakness Onset Date: 05/03/18 Current Visit: No Status: Acute (3) Hypernatremia Onset Date: 05/03/18 Current Visit: No Status: Acute (4) Bipolar disorder Onset Date: 02/23/18 Current Visit: No Status: Chronic Qualifiers: Active/Remission status: remission status unspecified Qualified Code(s): F31.9 - Bipolar disorder, unspecified (5) Chronic kidney disease Onset Date: 05/03/18 Current Visit: No Status: Chronic Qualifiers: Chronic kidney disease stage: stage 3 (moderate) Qualified Code(s): N18.3 - Chronic kidney disease, stage 3 (moderate) Conclusions/Impression: A 63-year-old gentleman, who follows up with Dr. Valenzuela with PMhx of coronary artery disease, status post CABG; hypertension; chronic kidney disease stage 3B/4 secondary to hypertension, nephrosclerosis, and renal vascular disease, bipolar disorder Pt presented with weakness and gait abnormality , started on the day of admission Pt had colonoscopy 2 days befor eadmission after which , he didnt feel good , with genralized weakness and gait abnormality no head trauma, chest pain, palpitation, nausea, vomiting or diarrhea Pt was admitted this yr for ROSS , that improved on hydration ROSS on CKD III improved on IVF Baseline 2.5 Cr now at baseline US: 11.4/10cm, echogenic kidneys renal diet renal dose all meds hold BP meds HTN BP borderline now cont to hold BP med Hypernatremia Likely ally induced will change fluid to 1/2 NS
[2018-08-05] MEDS ORDERED: CEFTRIAXONE/SWI 1gm 1 GM/10 ML SYR IV SCH (21:00)
--- NOTE | 2018-08-05 21:11 | P.HP ---
Certification for Inpatient Patient admitted to: Inpatient With expected LOS: >2 Midnights Patient will require the following post-hospital care: None Practitioner: I am a practitioner with admitting privileges, knowledge of patient current condition, hospital course, and medical plan of care. Services: Services provided to patient in accordance with Admission requirements found in Title 42 Section 412.3 of the Code of Federal Regulations Patient History Date of Service: 08/04/18 Reason for admission: Altered mental status; generalized weakness History of Present Illness: Patient is a 63-year-old gentleman who presents to the hospital with weakness and confusion. He states he was having difficulty ambulating. He recently was in the hospital for a colonoscopy. He had multiple polypectomies. A few days later he started having the abdominal discomfort. He had fevers and dysuria. He also noticed that he was incontinent. He decided to come into the hospital for further evaluation. In the ER his workup revealed a urinary tract infection. Will get started on IV antibiotics. Will also give him medication for pain control. Gentle hydration as well. He sees a local nephrology group and will consult Nephrology for further assistance in patient's care. Allergies promethazine HCl [From Phenergan] Allergy (Severe, Verified 04/30/18 21:07) Shortness of breath chlorpromazine HCl [From Thorazine] Allergy (Intermediate, Verified 05/24/18 02: 14) Hives/Rash, Nausea Home Medications: Amlodipine [Norvasc*] 10 mg PO DAILY 08/05/18 Divalproex ER [Depakote *ER] 750 mg PO BEDTIME 08/05/18 Gabapentin [Neurontin*] 300 mg PO BID 08/05/18 Metoprolol Tartrate [Lopressor*] 50 mg PO BID 08/05/18 Mirtazapine [Remeron*] 30 mg PO DAILY 08/05/18 Sertraline [Zoloft*] 100 mg PO DAILY 08/05/18 Simvastatin 40 mg PO DAILY 08/05/18 - Past Medical/Surgical History Has patient received pneumonia vaccine in the past: No Diabetic: No -: sleep apnea -: ckd -: cvd -: manic bipolar -: chonic back/neck issues -: hypertension -: hyperlipidemia -: insomnia -: dvt right calf (knee fracture) -: amnesia -: cabg -: cholecystectomy - Family History Mother Medical History: Heart disease Notes: polycythemia, [place] Father Medical History: Other (see notes) Notes: pancreatic cancer - Social History Alcohol use: No CD- Drugs: No Caffeine use: Yes Place of Residence: Home Review of Systems 10-point ROS is otherwise unremarkable Physical Examination - Vital Signs Temperature: 97.9 F Blood Pressure: 108/56 Pulse: 95 Respirations: 16 Pulse Ox (%): 96 - Physical Exam General: Alert, In no apparent distress, Oriented x3 HEENT: Atraumatic, Normocephalic, PERRLA Neck: Supple, 2+ carotid pulse no bruit, JVD not distended, No Thyromegaly Respiratory: Clear to auscultation bilaterally, Normal air movement Cardiovascular: Regular rate/rhythm, Normal S1 S2, No murmurs Gastrointestinal: Normal bowel sounds, Soft and benign, Non-distended, No tenderness Musculoskeletal: No clubbing, No swelling Integumentary: No rashes, No breakdown Neurological: Normal gait, Normal speech, Normal tone, Sensation intact, Cranial nerves 3-12 intact, Normal reflexes 2+ - Studies Laboratory Data (last 24 hrs) 08/04/18 20:35: PT 11.8, INR 1.00, APTT 27.2 08/04/18 20:35: WBC 13.1 H, Hgb 14.4, Hct 44.9, Plt Count 87 L 08/04/18 20:35: Sodium 145, Potassium 4.4, BUN 30 H, Creatinine 3.00 H, Glucose 81, Total Bilirubin 0.5, AST 9 L, ALT 15, Alkaline Phosphatase 96, Lipase 83 Assessment & Plan - Problems (Diagnosis) (1) UTI (urinary tract infection) Current Visit: Yes Status: Acute (2) Abdominal pain Onset Date: 05/03/18 Current Visit: No Status: Acute (3) Generalized weakness Onset Date: 05/03/18 Current Visit: No Status: Acute (4) Hypoalbuminemia Onset Date: 05/03/18 Current Visit: No Status: Acute (5) Chronic kidney disease Onset Date: 05/03/18 Current Visit: No Status: Chronic Qualifiers: Chronic kidney disease stage: stage 3 (moderate) Qualified Code(s): N18.3 - Chronic kidney disease, stage 3 (moderate) (6) Ataxic gait Current Visit: Yes Status: Acute - Plan Plan: 1. Continue with IV antibiotics 2. Gentle hydration 3. IV sedatives 4. Pain control 5. Monitor renal function 6. Nephrology consultation 7. GI DVT prophylaxis Discharge Plan: Home Plan to discharge in: Greater than 2 days - Advance Directives Does patient have a Living Will: No Does patient have a Durable POA for Healthcare: Yes - Code Status/Comfort Care Code Status Assessed: Yes Code Status: Full Code Critical Care: No Time Spent Managing PTS Care (In Minutes): 50
[2018-08-05] MEDS: GABAPENTIN 100 MG CAP PO SCH (22:42)
[2018-08-05] MEDS: DIVALPROEX ER 250 MG TAB PO SCH (22:42)
[2018-08-05] MEDS: MIRTAZAPINE 15 MG TAB PO SCH (22:42)
[2018-08-06 04:40] LABS: Absolute Monocytes 1.5 K/uL (0.1-1.3); Absolute Neutrophil 11.2 K/uL (1.8-8.0); Basophils % 0.4 % (0-1.3); Hematocrit 40.9 % (39.6-49.0); Lymphocytes % 13.6 % (15.3-44.8); MCH 34.8 pg (27.0-35.0); MCV 106.9 fL (80-100); MPV 9.1 fL (7.6-11.3); Monocytes % 10.2 % (3.3-12.3); RBC Red Blood Cell Count 3.83 M/uL (4.33-5.43)
[2018-08-06 04:50] LABS: Phosphorus 3.5 mg/dL (2.5-4.9); Potassium 4.2 mmol/L (3.5-5.1)
[2018-08-06] MEDS: PANTOPRAZOLE 40MG TABLET PO SCH (06:28)
[2018-08-06] MEDS: AMLODIPINE 10 MG TAB PO SCH (10:27)
[2018-08-06] MEDS: SERTRALINE HCL 100 MG TAB PO SCH (10:27)
[2018-08-06] MEDS: METOPROLOL TAR 50 MG TAB PO SCH ×2 (10:27→20:37)
[2018-08-06] MEDS: GABAPENTIN 100 MG CAP PO SCH ×2 (10:27→20:36)
[2018-08-06] MEDS: MIRTAZAPINE 15 MG TAB PO SCH (10:28)
--- NOTE | 2018-08-06 10:51 | P.PN ---
Subjective Date of Service: 08/06/18 Chief Complaint: Altered mental status; generalized weakness No new complaints feels better Ucx: E.coli , ESBL ,pt is asymptomatic will recommend to cont 5days of Abx Cr improved to 2.3 Cont IVF for now Physical Examination - Vital Signs Temperature: 96.9 F Blood Pressure: 125/76 Pulse: 89 Respirations: 18 Pulse Ox (%): 95 - Physical Exam General: Oriented x3 HEENT: Atraumatic Neck: Supple, Without JVD or thyroid abnormality Respiratory: Clear to auscultation bilaterally Cardiovascular: No edema, Regular rate/rhythm, Normal S1 S2, No rubs, No murmurs Gastrointestinal: Normal bowel sounds - Studies Microbiology Data (last 24 hrs): 08/04/18 21:16 Clean Catch Urine [place] Count - Final BETWEEN 10,000 & 100,000 CFU/ML 08/04/18 21:16 Clean Catch Urine - Final Escherichia Coli Assessment And Plan - Current Problems (Diagnosis) (1) Altered mental status Onset Date: 02/23/18 Current Visit: No Status: Resolved (2) Generalized weakness Onset Date: 05/03/18 Current Visit: No Status: Acute (3) Hypernatremia Onset Date: 05/03/18 Current Visit: No Status: Acute (4) Bipolar disorder Onset Date: 02/23/18 Current Visit: No Status: Chronic Qualifiers: Active/Remission status: remission status unspecified Qualified Code(s): F31.9 - Bipolar disorder, unspecified (5) Chronic kidney disease Onset Date: 05/03/18 Current Visit: No Status: Chronic Qualifiers: Chronic kidney disease stage: stage 3 (moderate) Qualified Code(s): N18.3 - Chronic kidney disease, stage 3 (moderate) - Plan A 63-year-old gentleman, who follows up with Dr. Valenzuela with PMhx of coronary artery disease, status post CABG; hypertension; chronic kidney disease stage 3B/4 secondary to hypertension, nephrosclerosis, and renal vascular disease, bipolar disorder Pt presented with weakness and gait abnormality , started on the day of admission Pt had colonoscopy 2 days befor eadmission after which , he didnt feel good , with genralized weakness and gait abnormality no head trauma, chest pain, palpitation, nausea, vomiting or diarrhea Pt was admitted this yr for ROSS , that improved on hydration ROSS on CKD III resolved on IVF Baseline 2.5 Cr now at baseline US: 11.4/10cm, echogenic kidneys renal diet renal dose all meds cont to hold bP meds HTN BP borderline now cont to hold BP med Hypernatremia resolved encourage PO fluid intake Likely saline induced will dc IVf tomorrow
[2018-08-06] MEDS: Meropenem 1,000 MG in NA CHLORIDE 0.9% 100 ML IV SCH ×2 (11:56→20:36)
--- NOTE | 2018-08-06 14:58 | P.PN ---
Subjective Date of Service: 08/06/18 Chief Complaint: Altered mental status; generalized weakness Patient seen and examined at bedside. Chart reviewed and case discussed with nursing staff. Patient reports feeling better, looks much more awake today. Alert oriented x3 Review of Systems As noted Physical Examination - Vital Signs Temperature: 97.4 F Blood Pressure: 134/75 Pulse: 88 Respirations: 16 Pulse Ox (%): 96 - Physical Exam General: Alert, In no apparent distress, Oriented x3 HEENT: Atraumatic, PERRLA, EOMI Neck: Supple, JVD not distended Respiratory: Clear to auscultation bilaterally, Normal air movement Cardiovascular: Regular rate/rhythm, Normal S1 S2 Gastrointestinal: Normal bowel sounds, No tenderness Musculoskeletal: No tenderness Integumentary: No rashes Neurological: Normal speech, Normal tone, Normal affect - Studies Microbiology Data (last 24 hrs): 08/04/18 20:49 Stool Clostridium difficile Toxin Assay - Final 08/04/18 21:16 Clean Catch Urine [place] Count - Final BETWEEN 10,000 & 100,000 CFU/ML 08/04/18 21:16 Clean Catch Urine - Final Escherichia Coli Assessment And Plan - Plan This is a 63-year-old male with: Urinary tract infection, with E. coli, ESBL Patient with recent hospitalization, multiple antibiotics. Urine analysis with evidence of the UTI. Urine cultures WITH ESBL E. coli Discontinue Rocephin, start meropenem. As patient was admitted with altered mentation, found to have a UTI, would consider this as asymptomatic urinary tract infection. Would recommend IV meropenem x2 weeks. Pending PICC line placement. Pharmacy consult for renal dosage adjustment. C. diff colitis Patient initially with diarrhea, C. diff positive. Patient does meet severe infection criteria as patient is altered since 14 years olds as well as has a leukocytosis, serum creatinine increase in low albumin. He also has a history of recent antibiotics. Will treat him with oral vancomycin 125 mg q. 6 x 10 days. Will discontinue Protonix at this time. Place patient on contact isolation Generalized weakness Physical therapy Consulted Hypoalbuminemia Chronic kidney disease, stage III Nephrology consulted, recommendations appreciated Continue to monitor renal function via am labs. Essential Hypertension Blood pressure stable. Continue home amlodipine and metoprolol. Hypernatremia Currently on half-normal saline. Nephrology consulted , recommendations appreciated DVT prophylaxis: Lovenox GI prophylaxis: Protonix, discontinued Diet: Heart healthy Disposition: Pending symptomatic treatment, IV antibiotics about and PICC line placement. Physician Review: Patient Assessed, Agree with Above Assessment and Plan Time Spent Managing PTS Care (In Minutes): 55
[2018-08-06] MEDS: VANCOMYCIN ORAL SOLN 250 MG/5 ML OSYR PO SCH ×2 (18:03→23:59)
[2018-08-06] MEDS: DIVALPROEX ER 250 MG TAB PO SCH (20:36)
[2018-08-06] MEDS: ATORVASTATIN 20 MG TAB PO SCH (20:37)
[2018-08-06] MEDS: ACETAMINOPHEN 500 MG TAB PO PRN (20:38)
[2018-08-06] MEDS ORDERED: Meropenem 1000 MG/VIAL IV SCH (21:00)
[2018-08-06] MEDS: NACHLORIDE 0.45% 1,000 ML IV SCH (23:58)
[2018-08-07] MEDS: VANCOMYCIN ORAL SOLN 250 MG/5 ML OSYR PO SCH ×4 (05:39→23:39)
[2018-08-07 06:15] LABS: Absolute Lymphocytes (CBC) 1.4 K/uL (0.7-4.9); Absolute Monocytes 0.7 K/uL (0.1-1.3); Absolute Neutrophil 9.4 K/uL (1.8-8.0); Basophils % 0.5 % (0-1.3); Eosinophils % 0.7 % (0-4.4); Hematocrit 41.6 % (39.6-49.0); Lymphocytes % 11.6 % (15.3-44.8); MCH 35.6 pg (27.0-35.0); MCV 107.9 fL (80-100); MPV 9.3 fL (7.6-11.3); Monocytes % 6.1 % (3.3-12.3); RBC Red Blood Cell Count 3.86 M/uL (4.33-5.43)
[2018-08-07 06:26] LABS: Magnesium 2.1 mg/dL (1.8-2.4); Phosphorus 3.1 mg/dL (2.5-4.9); Potassium 4.7 mmol/L (3.5-5.1)
[2018-08-07 07:01] LABS: Blood Morphology Comment NOT SEEN (NOT SEEN); Platelet Estimate DECR; Platelets, Giant FEW
--- NOTE | 2018-08-07 08:35 | RAD REPORT ---
EXAM DESCRIPTION: RAD - Chest Single View - 08/07/2018 5:57 am CLINICAL HISTORY: PICC line placement COMPARISON: August 04 FINDINGS: Portable chest was obtained following placement of a right upper extremity PICC line. The catheter tip is in the distal SVC.
[2018-08-07] MEDS: MIRTAZAPINE 15 MG TAB PO SCH ×2 (09:00→09:01)
[2018-08-07] MEDS: SERTRALINE HCL 100 MG TAB PO SCH (09:00)
[2018-08-07] MEDS: AMLODIPINE 10 MG TAB PO SCH ×2 (09:00→09:01)
[2018-08-07] MEDS: Meropenem 1,000 MG in NA CHLORIDE 0.9% 100 ML IV SCH ×2 (09:00→22:26)
[2018-08-07] MEDS: METOPROLOL TAR 50 MG TAB PO SCH ×2 (09:01→22:25)
[2018-08-07] MEDS: GABAPENTIN 100 MG CAP PO SCH ×2 (09:01→22:25)
--- NOTE | 2018-08-07 13:00 | P.PN ---
Subjective Date of Service: 08/07/18 Chief Complaint: Altered mental status; generalized weakness Subjective: No C/O voiced, Improving Patient seen and examined at bedside. Chart reviewed and case discussed with nursing staff. Patient reports feeling better, looks much more awake today. Alert oriented x3 Review of Systems As noted Physical Examination - Vital Signs Temperature: 97.2 F Blood Pressure: 133/75 Pulse: 71 Respirations: 16 Pulse Ox (%): 97 - Physical Exam General: Alert, In no apparent distress, Oriented x3 HEENT: Atraumatic, PERRLA, EOMI Neck: Supple, JVD not distended Respiratory: Clear to auscultation bilaterally, Normal air movement Cardiovascular: Regular rate/rhythm, Normal S1 S2 Gastrointestinal: Normal bowel sounds, No tenderness Musculoskeletal: No tenderness Integumentary: No rashes Neurological: Normal speech, Normal tone, Normal affect - Studies Microbiology Data (last 24 hrs): 08/04/18 20:49 Stool Clostridium difficile Toxin Assay - Final 08/04/18 21:16 Clean Catch Urine [place] Count - Final BETWEEN 10,000 & 100,000 CFU/ML 08/04/18 21:16 Clean Catch Urine - Final Escherichia Coli Assessment And Plan - Plan This is a 63-year-old male with: Urinary tract infection, with E. coli, ESBL Patient with recent hospitalization, multiple antibiotics. Urine analysis with evidence of the UTI. Urine cultures WITH ESBL E. coli Discontinue Rocephin, start meropenem. As patient was admitted with altered mentation, found to have a UTI, would consider this as asymptomatic urinary tract infection. Would recommend IV meropenem x2 weeks. Pending PICC line placement. Pharmacy consult for renal dosage adjustment. C. diff colitis Patient initially with diarrhea, C. diff positive. Patient does meet severe infection criteria as patient is altered since 14 years olds as well as has a leukocytosis, serum creatinine increase in low albumin. He also has a history of recent antibiotics. Will treat him with oral vancomycin 125 mg q. 6 x 10 days. Will discontinue Protonix at this time. Place patient on contact isolation Generalized weakness Physical therapy Consulted Hypoalbuminemia Chronic kidney disease, stage III Nephrology consulted, recommendations appreciated Continue to monitor renal function via am labs. Essential Hypertension Blood pressure stable. Continue home amlodipine and metoprolol. Hypernatremia Currently on half-normal saline. Nephrology consulted , recommendations appreciated DVT prophylaxis: Lovenox GI prophylaxis: Protonix, discontinued Diet: Heart healthy Disposition: Pending symptomatic treatment, IV antibiotics set up/assisted facility. Physician Review: Patient Assessed, Agree with Above Assessment and Plan Time Spent Managing PTS Care (In Minutes): 35
[2018-08-07] MEDS: ACETAMINOPHEN 500 MG TAB PO PRN (13:21)
--- NOTE | 2018-08-07 13:35 | P.PN ---
Subjective Date of Service: 08/07/18 Chief Complaint: Altered mental status; generalized weakness No new complaints feels better Ucx: E.coli , ESBL ,pt is asymptomatic will recommend to cont 5days of Abx Cr improved to 2.1 NA 148, start on D5W Physical Examination - Vital Signs Temperature: 97.2 F Blood Pressure: 133/75 Pulse: 71 Respirations: 16 Pulse Ox (%): 97 - Physical Exam General: Oriented x3 Neck: Supple, Without JVD or thyroid abnormality Respiratory: Clear to auscultation bilaterally Cardiovascular: No edema, Regular rate/rhythm, Normal S1 S2, No murmurs Gastrointestinal: Normal bowel sounds - Studies Microbiology Data (last 24 hrs): 08/04/18 20:49 Stool Clostridium difficile Toxin Assay - Final 08/04/18 21:16 Clean Catch Urine [place] Count - Final BETWEEN 10,000 & 100,000 CFU/ML 08/04/18 21:16 Clean Catch Urine - Final Escherichia Coli Assessment And Plan - Current Problems (Diagnosis) (1) Altered mental status Onset Date: 02/23/18 Current Visit: No Status: Resolved (2) Generalized weakness Onset Date: 05/03/18 Current Visit: No Status: Acute (3) Hypernatremia Onset Date: 05/03/18 Current Visit: No Status: Acute (4) Bipolar disorder Onset Date: 02/23/18 Current Visit: No Status: Chronic Qualifiers: Active/Remission status: remission status unspecified Qualified Code(s): F31.9 - Bipolar disorder, unspecified (5) Chronic kidney disease Onset Date: 05/03/18 Current Visit: No Status: Chronic Qualifiers: Chronic kidney disease stage: stage 3 (moderate) Qualified Code(s): N18.3 - Chronic kidney disease, stage 3 (moderate) - Plan A 63-year-old gentleman, who follows up with Dr. Valenzuela with PMhx of coronary artery disease, status post CABG; hypertension; chronic kidney disease stage 3B/4 secondary to hypertension, nephrosclerosis, and renal vascular disease, bipolar disorder Pt presented with weakness and gait abnormality , started on the day of admission Pt had colonoscopy 2 days befor eadmission after which , he didnt feel good , with genralized weakness and gait abnormality no head trauma, chest pain, palpitation, nausea, vomiting or diarrhea Pt was admitted this yr for ROSS , that improved on hydration ROSS on CKD III resolved on IVF Baseline 2.5 now Cr 2.1 Cr now at baseline US: 11.4/10cm, echogenic kidneys renal diet renal dose all meds cont to hold bP meds HTN Acceptable now cont to hold BP med Hypernatremia Start on D5W Lueckocytosis UTI E.coli ESBL C.diff +ve , pt have no diarrhea Cont Po Vanco Physician Review: Patient Assessed, Agree with Above Assessment and Plan
[2018-08-07] MEDS: ATORVASTATIN 20 MG TAB PO SCH (22:25)
[2018-08-07] MEDS: DIVALPROEX ER 250 MG TAB PO SCH (22:25)
[2018-08-07] MEDS: D5W 1,000 ML IV SCH (22:26)
[2018-08-07] MEDS: ALPRAZOLAM 0.25 MG TABLET PO PRN (22:42)
[2018-08-08] MEDS: VANCOMYCIN ORAL SOLN 250 MG/5 ML OSYR PO SCH ×3 (05:27→17:56)
[2018-08-08] MEDS: METOPROLOL TAR 50 MG TAB PO SCH ×2 (08:59→20:30)
[2018-08-08] MEDS: Meropenem 1,000 MG in NA CHLORIDE 0.9% 100 ML IV SCH ×2 (08:59→20:30)
[2018-08-08] MEDS: GABAPENTIN 100 MG CAP PO SCH ×2 (08:59→20:28)
[2018-08-08] MEDS: AMLODIPINE 10 MG TAB PO SCH (09:00)
[2018-08-08] MEDS: MIRTAZAPINE 15 MG TAB PO SCH (09:00)
[2018-08-08] MEDS: SERTRALINE HCL 100 MG TAB PO SCH (09:01)
--- NOTE | 2018-08-08 11:24 | P.PN ---
Subjective Date of Service: 08/08/18 Chief Complaint: Altered mental status; generalized weakness No new complaints feels better Ucx: E.coli , ESBL ,on [place] Cr improved to 2.1 Hypernatremia , rpt labs today Cont D5w for encourage PO fluid intake Physical Examination - Vital Signs Temperature: 97.0 F Blood Pressure: 142/92 Pulse: 69 Respirations: 17 Pulse Ox (%): 96 - Physical Exam General: In no apparent distress, Oriented x3 HEENT: Atraumatic Neck: Supple, Without JVD or thyroid abnormality Respiratory: Clear to auscultation bilaterally Cardiovascular: No edema, Regular rate/rhythm, Normal S1 S2, No rubs, No murmurs Gastrointestinal: Normal bowel sounds Assessment And Plan - Current Problems (Diagnosis) (1) Generalized weakness Onset Date: 05/03/18 Current Visit: No Status: Acute (2) Hypernatremia Onset Date: 05/03/18 Current Visit: No Status: Acute (3) Bipolar disorder Onset Date: 02/23/18 Current Visit: No Status: Chronic Qualifiers: Active/Remission status: remission status unspecified Qualified Code(s): F31.9 - Bipolar disorder, unspecified (4) Chronic kidney disease Onset Date: 05/03/18 Current Visit: No Status: Chronic Qualifiers: Chronic kidney disease stage: stage 3 (moderate) Qualified Code(s): N18.3 - Chronic kidney disease, stage 3 (moderate) - Plan A 63-year-old gentleman, who follows up with Dr. Valenzuela with PMhx of coronary artery disease, status post CABG; hypertension; chronic kidney disease stage 3B/4 secondary to hypertension, nephrosclerosis, and renal vascular disease, bipolar disorder Pt presented with weakness and gait abnormality , started on the day of admission Pt had colonoscopy 2 days befor eadmission after which , he didnt feel good , with genralized weakness and gait abnormality no head trauma, chest pain, palpitation, nausea, vomiting or diarrhea Pt was admitted this yr for ROSS , that improved on hydration ROSS on CKD III resolved on IVF Baseline 2.5 now Cr 2.1 Cr now at baseline US: 11.4/10cm, echogenic kidneys renal diet renal dose all meds HTN BP elevated now restarted on Home meds Hypernatremia Encourage PO intake Lueckocytosis UTI E.coli ESBL C.diff +ve , pt have no diarrhea Cont Po Vanco Physician Review: Patient Assessed, Agree with Above Assessment and Plan
[2018-08-08] MEDS: D5W 1,000 ML IV SCH ×2 (12:40→17:56)
--- NOTE | 2018-08-08 16:38 | P.PN ---
Subjective Date of Service: 08/08/18 Chief Complaint: Altered mental status; generalized weakness Subjective: No new changes, No C/O voiced, Improving Patient seen and examined at bedside. Chart reviewed and case discussed with nursing staff. Patient reports feeling better, looks much more awake today. Alert oriented x3 Review of Systems As noted Physical Examination - Vital Signs Temperature: 98.0 F Blood Pressure: 112/76 Pulse: 70 Respirations: 18 Pulse Ox (%): 97 - Physical Exam General: Alert, In no apparent distress, Oriented x3 HEENT: Atraumatic, PERRLA, EOMI Neck: Supple, JVD not distended Respiratory: Clear to auscultation bilaterally, Normal air movement Cardiovascular: Regular rate/rhythm, Normal S1 S2 Gastrointestinal: Normal bowel sounds, No tenderness Musculoskeletal: No tenderness Neurological: Normal speech, Normal tone, Normal affect Lymphatics: No axilla or inguinal lymphadenopathy - Studies Medications List Reviewed: Yes Assessment And Plan - Plan This is a 63-year-old male with: Urinary tract infection, with E. coli, ESBL Patient with recent hospitalization, multiple antibiotics. Urine analysis with evidence of the UTI. Urine cultures WITH ESBL E. coli Discontinue Rocephin, start meropenem. As patient was admitted with altered mentation, found to have a UTI, would consider this as asymptomatic urinary tract infection. Would recommend IV meropenem x2 weeks. PICC line placed, chest x-ray noted its correct position. Pharmacy consult for renal dosage adjustment. C. diff colitis Patient initially with diarrhea, C. diff positive. Patient does meet severe infection criteria as patient is altered since over 58 years old, as well as has a leukocytosis, serum creatinine increase and low albumin. He also has a history of recent antibiotics. Will treat him with oral vancomycin 125 mg q. 6 x 10 days. Will discontinue Protonix at this time. Place patient on contact isolation Generalized weakness Physical therapy Consulted Hypoalbuminemia Chronic kidney disease, stage III Nephrology consulted, recommendations appreciated Continue to monitor renal function via am labs. Essential Hypertension Blood pressure stable. Continue home amlodipine and metoprolol. Hypernatremia: Resolved Currently on half-normal saline. Nephrology consulted , recommendations appreciated DVT prophylaxis: Lovenox GI prophylaxis: Protonix, discontinued Diet: Heart healthy Disposition: Pending symptomatic treatment, IV antibiotics set up/[facility] facility. Physician Review: Patient Assessed, Agree with Above Assessment and Plan Time Spent Managing PTS Care (In Minutes): 35
[2018-08-08] MEDS: ACETAMINOPHEN 500 MG TAB PO PRN (20:27)
[2018-08-08] MEDS: ATORVASTATIN 20 MG TAB PO SCH (20:28)
[2018-08-08] MEDS: DIVALPROEX ER 250 MG TAB PO SCH (20:28)
[2018-08-09] MEDS: VANCOMYCIN ORAL SOLN 250 MG/5 ML OSYR PO SCH ×5 (00:12→23:51)
[2018-08-09] MEDS: ACETAMINOPHEN 500 MG TAB PO PRN (03:50)
[2018-08-09 04:43] LABS: Absolute Lymphocytes (CBC) 1.7 K/uL (0.7-4.9); Absolute Monocytes 0.8 K/uL (0.1-1.3); Absolute Neutrophil 3.1 K/uL (1.8-8.0); Basophils % 0.9 % (0-1.3); Eosinophils % 2.3 % (0-4.4); Hematocrit 38.4 % (39.6-49.0); Lymphocytes % 29.1 % (15.3-44.8); MCH 35.1 pg (27.0-35.0); MCV 105.8 fL (80-100); MPV 8.1 fL (7.6-11.3); Monocytes % 14.1 % (3.3-12.3); RBC Red Blood Cell Count 3.62 M/uL (4.33-5.43)
[2018-08-09 04:55] LABS: Albumin 2.1 g/dL (3.4-5.0); Bilirubin Total 0.3 mg/dL (0.2-1.0); Potassium 4.4 mmol/L (3.5-5.1); Protein, Total 5.1 g/dL (6.4-8.2)
[2018-08-09] MEDS: METOPROLOL TAR 50 MG TAB PO SCH ×2 (09:16→20:47)
[2018-08-09] MEDS: GABAPENTIN 100 MG CAP PO SCH ×2 (09:16→20:47)
[2018-08-09] MEDS: Meropenem 1,000 MG in NA CHLORIDE 0.9% 100 ML IV SCH ×2 (09:16→20:46)
[2018-08-09] MEDS: MIRTAZAPINE 15 MG TAB PO SCH (09:19)
[2018-08-09] MEDS: SERTRALINE HCL 100 MG TAB PO SCH (09:19)
[2018-08-09] MEDS: AMLODIPINE 10 MG TAB PO SCH (09:19)
[2018-08-09] MEDS: D5W 1,000 ML IV SCH ×2 (09:42→23:51)
--- NOTE | 2018-08-09 19:23 | P.DS ---
Admission Date: 08/04/18 Discharge Date: 08/09/18 Disposition: ROUTINE DISCHARGE Discharge Condition: GOOD Reason for Admission: Altered mental status; generalized weakness Consultations: Nephrology Brief History of Present Illness: Patient is a 63-year-old gentleman who presents to the hospital with weakness and confusion. He states he was having difficulty ambulating. He recently was in the hospital for a colonoscopy. He had multiple polypectomies. A few days later he started having the abdominal discomfort. He had fevers and dysuria. He also noticed that he was incontinent. He decided to come into the hospital for further evaluation. In the ER his workup revealed a urinary tract infection. Will get started on IV antibiotics. Will also give him medication for pain control. Gentle hydration as well. He sees a local nephrology group and will consult Nephrology for further assistance in patient's care. Hospital Course: Urinary tract infection, with E. coli, ESBL Patient with recent hospitalization, multiple antibiotics. Urine analysis with evidence of the UTI. Urine cultures with ESBL E. coli Discontinue Rocephin, start meropenem. As patient was admitted with altered mentation, found to have a UTI, would consider this as symptomatic urinary tract infection. Would recommend IV meropenem x2 weeks. PICC line placed, chest x-ray noted its correct position. Pharmacy consult for renal dosage adjustment. Patient discharged to [facility] facility for IV antibiotics for the next 2 weeks along with the rehab. C. diff colitis Patient initially with diarrhea, C. diff positive. Patient does meet severe infection criteria as patient is altered since over 58 years old, as well as has a leukocytosis, serum creatinine increase and low albumin. He also has a history of recent antibiotics. Will treat him with oral vancomycin 125 mg q. 6 x [address] patient on contact isolation Generalized weakness Physical therapy Consulted. Patient will receive physical therapy and [facility] facility as well Hypoalbuminemia Chronic kidney disease, stage III Nephrology consulted, recommendations appreciated Improved creatinine and renal function. Essential Hypertension Blood pressure stable. Continue home amlodipine and metoprolol. No medication changes at time of discharge Hypernatremia: Resolved Currently on half-normal saline. Nephrology consulted , recommendations appreciated Vital Signs/Physical Exam: Temp Pulse Resp BP Pulse Ox 97.6 F 73 18 131/74 97 08/09/18 16:00 08/09/18 16:00 08/09/18 16:00 08/09/18 16:00 08/09/18 16:00 General: Alert, In no apparent distress, Oriented x3 HEENT: Atraumatic, PERRLA, EOMI Neck: Supple, JVD not distended Respiratory: Clear to auscultation bilaterally, Normal air movement Cardiovascular: Regular rate/rhythm, Normal S1 S2 Gastrointestinal: Normal bowel sounds, No tenderness Musculoskeletal: No tenderness Integumentary: No rashes Neurological: Normal speech, Normal tone, Normal affect Lymphatics: No axilla or inguinal lymphadenopathy Laboratory Data at Discharge: WBC 5.9 K/uL (4.3-10.9) D 08/09/18 04:29 Hgb 12.7 g/dL (13.6-17.9) L 08/09/18 04:29 Hct 38.4 % (39.6-49.0) L 08/09/18 04:29 Plt Count 118 K/uL (152-406) L D 08/09/18 04:29 PT 11.8 SECONDS (9.5-12.5) 08/04/18 20:35 INR 1.00 08/04/18 20:35 APTT 27.2 SECONDS (24.3-36.9) 08/04/18 20:35 Sodium 146 mmol/L (136-145) H 08/09/18 04:29 Potassium 4.4 mmol/L (3.5-5.1) 08/09/18 04:29 BUN 22 mg/dL (7-18) H 08/09/18 04:29 Creatinine 1.80 mg/dL (0.55-1.3) H 08/09/18 04:29 Glucose 90 mg/dL (74-106) 08/09/18 04:29 Phosphorus 3.1 mg/dL (2.5-4.9) 08/07/18 06:01 Magnesium 2.1 mg/dL (1.8-2.4) 08/07/18 06:01 Total Bilirubin 0.3 mg/dL (0.2-1.0) 08/09/18 04:29 AST 22 U/L (15-37) 08/09/18 04:29 ALT 23 U/L (12-78) 08/09/18 04:29 Alkaline Phosphatase 88 U/L (45-117) 08/09/18 04:29 Troponin I < 0.02 ng/mL (0.0-0.045) 08/05/18 23:10 Lipase 83 U/L (73-393) 08/04/18 20:35 Home Medications: Amlodipine [Norvasc*] 10 mg PO DAILY 08/05/18 Divalproex ER [Depakote *ER] 750 mg PO BEDTIME 08/05/18 Gabapentin [Neurontin*] 300 mg PO BID 08/05/18 Metoprolol Tartrate [Lopressor*] 50 mg PO BID 08/05/18 Mirtazapine [Remeron*] 30 mg PO BEDTIME 08/05/18 Sertraline [Zoloft*] 100 mg PO DAILY 08/05/18 Simvastatin 40 mg PO DAILY 08/05/18 Vancomycin HCl 125 mg PO Q6H #40 capsule 08/09/18 New Medications: Vancomycin HCl 125 mg PO Q6H #40 capsule Patient Discharge Instructions: Please follow up with your primary care physician in 1 week. Diet: Renal Activity: Ad sergey Physician Review: Patient Assessed, Agree with Above Assessment and Plan Time spent managing pt's care (in minutes): 45
[2018-08-09] MEDS: DIVALPROEX ER 250 MG TAB PO SCH (20:46)
[2018-08-09] MEDS: ATORVASTATIN 20 MG TAB PO SCH (20:47)
[2018-08-10] MEDS: ACETAMINOPHEN 500 MG TAB PO PRN (03:25)
[2018-08-10] MEDS: ALPRAZOLAM 0.25 MG TABLET PO PRN (03:26)
[2018-08-10 05:25] LABS: Absolute Lymphocytes (CBC) 2.1 K/uL (0.7-4.9); Absolute Monocytes 0.8 K/uL (0.1-1.3); Absolute Neutrophil 3.4 K/uL (1.8-8.0); Basophils % 0.6 % (0-1.3); Eosinophils % 2.7 % (0-4.4); Lymphocytes % 32.6 % (15.3-44.8); MCH 35.1 pg (27.0-35.0); MPV 7.7 fL (7.6-11.3); Monocytes % 11.8 % (3.3-12.3); RBC Red Blood Cell Count 3.49 M/uL (4.33-5.43)
[2018-08-10 05:37] LABS: MCV 105.9 fL (80-100)
[2018-08-10 05:51] LABS: Bilirubin Total 0.3 mg/dL (0.2-1.0); Potassium 4.5 mmol/L (3.5-5.1)
[2018-08-10] MEDS: VANCOMYCIN ORAL SOLN 250 MG/5 ML OSYR PO SCH ×2 (06:11→11:53)
[2018-08-10 08:29] VITALS: BMI 23.1
[2018-08-10] MEDS: Meropenem 1,000 MG in NA CHLORIDE 0.9% 100 ML IV SCH (08:51)
[2018-08-10] MEDS: SERTRALINE HCL 100 MG TAB PO SCH (08:55)
[2018-08-10] MEDS: MIRTAZAPINE 15 MG TAB PO SCH (08:55)
[2018-08-10] MEDS: METOPROLOL TAR 50 MG TAB PO SCH (08:55)
[2018-08-10] MEDS: AMLODIPINE 10 MG TAB PO SCH (08:55)
[2018-08-10] MEDS: GABAPENTIN 100 MG CAP PO SCH (08:56)
[2018-08-10 10:21] VITALS: O2SAT 97
[2018-08-10 14:24] VITALS: BP 128/63; TEMP 97.8
--- NOTE | 2018-08-10 16:15 | P.PN ---
Subjective Date of Service: 08/10/18 Chief Complaint: Altered mental status; generalized weakness Subjective: No new changes (Patient seen and examined. Chart reviewed and case discussed with RN. No acute events overnight.) Review of Systems 10-point ROS is otherwise unremarkable Physical Examination - Vital Signs Temperature: 97.8 F Blood Pressure: 128/63 Pulse: 78 Respirations: 20 Pulse Ox (%): 97 - Physical Exam General: Alert, In no apparent distress, Oriented x3 HEENT: Atraumatic, PERRLA, EOMI Neck: Supple, JVD not distended Respiratory: Clear to auscultation bilaterally, Normal air movement Cardiovascular: Normal pulses, Regular rate/rhythm, Normal S1 S2 Gastrointestinal: Normal bowel sounds, Soft and benign, Non-distended, No tenderness Musculoskeletal: No tenderness Integumentary: No rashes, No erythema Neurological: Normal speech, Normal strength at 5/5 x4 extr, Normal tone, Cranial nerves 3-12 intact, Normal affect - Studies Laboratory Last Values WBC 6.5 K/uL (4.3-10.9) 08/10/18 04:43 RBC 3.49 M/uL (4.33-5.43) L 08/10/18 04:43 Hgb 12.3 g/dL (13.6-17.9) L 08/10/18 04:43 Hct 37.0 % (39.6-49.0) L 08/10/18 04:43 MCV 105.9 fL (80-100) H 08/10/18 04:43 MCH 35.1 pg (27.0-35.0) H 08/10/18 04:43 MCHC 33.2 g/dL (32.0-36.0) 08/10/18 04:43 RDW 14.3 % (12.1-15.2) 08/10/18 04:43 Plt Count 144 K/uL (152-406) L D 08/10/18 04:43 MPV 7.7 fL (7.6-11.3) 08/10/18 04:43 Neutrophils % 52.3 % (41.7-73.7) 08/10/18 04:43 Lymphocytes % 32.6 % (15.3-44.8) 08/10/18 04:43 Monocytes % 11.8 % (3.3-12.3) 08/10/18 04:43 Eosinophils % 2.7 % (0-4.4) 08/10/18 04:43 Basophils % 0.6 % (0-1.3) 08/10/18 04:43 Absolute Neutrophils 3.4 K/uL (1.8-8.0) 08/10/18 04:43 Segmented Neutrophils 84 % (40-80) H 08/07/18 06:01 Band Neutrophils 1 % (0-1) 08/07/18 06:01 Absolute Lymphocytes 2.1 K/uL (0.7-4.9) 08/10/18 04:43 Lymphocytes 11 % (15-42) L 08/07/18 06:01 Monocytes 4 % (0-10) 08/07/18 06:01 Absolute Monocytes 0.8 K/uL (0.1-1.3) 08/10/18 04:43 Absolute Eosinophils 0.2 K/uL (0-0.5) 08/10/18 04:43 Absolute Basophils 0.0 K/uL (0-0.5) 08/10/18 04:43 Metamyelocytes 1 % (0-0) H 08/04/18 20:35 Reactive Lymphocytes 2 % 08/04/18 20:35 Giant Platelets Few 08/07/18 06:01 Macrocytosis 1+ 08/04/18 20:35 Morphology Comment Not seen (NOT SEEN) 08/07/18 06:01 PT 11.8 SECONDS (9.5-12.5) 08/04/18 20:35 INR 1.00 08/04/18 20:35 APTT 27.2 SECONDS (24.3-36.9) 08/04/18 20:35 Sodium 143 mmol/L (136-145) 08/10/18 04:43 Potassium 4.5 mmol/L (3.5-5.1) 08/10/18 04:43 Chloride 114 mmol/L (98-107) H 08/10/18 04:43 Carbon Dioxide 24 mmol/L (21-32) 08/10/18 04:43 BUN 23 mg/dL (7-18) H 08/10/18 04:43 Creatinine 1.80 mg/dL (0.55-1.3) H 08/10/18 04:43 Estimated GFR 38 mL/min (=/>90) L 08/10/18 04:43 Glucose 117 mg/dL (74-106) H 08/10/18 04:43 POC Glucose 116 mg/dl (65-120) 08/04/18 21:21 Lactic Acid 1.0 mmol/L (0.4-2.0) 08/07/18 06:01 Calcium 7.8 mg/dL (8.5-10.1) L 08/10/18 04:43 Phosphorus 3.1 mg/dL (2.5-4.9) 08/07/18 06:01 Magnesium 2.1 mg/dL (1.8-2.4) 08/07/18 06:01 Total Bilirubin 0.3 mg/dL (0.2-1.0) 08/10/18 04:43 Direct Bilirubin 0.2 mg/dL (0-0.2) 08/04/18 20:35 AST 26 U/L (15-37) 08/10/18 04:43 ALT 28 U/L (12-78) 08/10/18 04:43 Alkaline Phosphatase 93 U/L (45-117) 08/10/18 04:43 Creatine Kinase 106 U/L (39-308) 08/04/18 20:35 CK-MB (CK-2) < 1.0 ng/mL (0.3-3.6) 08/04/18 20:35 Rapid Troponin I < 0.02 ng/mL (0.0-0.045) 08/04/18 20:35 Troponin I < 0.02 ng/mL (0.0-0.045) 08/05/18 23:10 NT-Pro-B Natriuret Pep 5038 pg/mL (<125) H 08/05/18 05:15 Serum Total Protein 5.0 g/dL (6.4-8.2) L 08/10/18 04:43 Albumin 2.0 g/dL (3.4-5.0) L 08/10/18 04:43 Globulin 3.0 g/dL (2.3-3.5) 08/10/18 04:43 Albumin/Globulin Ratio 0.7 (1.1-1.8) L 08/10/18 04:43 Lipase 83 U/L (73-393) 08/04/18 20:35 Procalcitonin 0.10 ng/mL (<0.50) 08/04/18 21:00 Urine pH 6.0 (5.0-7.0) 08/04/18 21:16 Ur Specific Agness 1.020 (1.005-1.030) 08/04/18 21:16 Urine Ketones Negative (NEG) 08/04/18 21:16 Urine Blood 2+ (NEG) H 08/04/18 21:16 Urine Nitrite Negative (NEG) 08/04/18 21:16 Ur Leukocyte Esterase 3+ (NEG) H 08/04/18 21:16 Urine RBC <5 /HPF (NONE SEEN) 08/04/18 21:16 Urine WBC 20-50 /HPF (<5) H 08/04/18 21:16 Ur Squamous Epith Cells <5 /HPF (NONE SEEN) 08/04/18 21:16 Ur Urothelial Cells Cancelled 08/04/18 21:13 Calcium Oxalate Crystal Cancelled 08/04/18 21:13 Uric Acid Crystals Cancelled 08/04/18 21:13 Triple Phos Crystals Cancelled 08/04/18 21:13 Other Crystals Cancelled 08/04/18 21:13 Amorphous Sediment Cancelled 08/04/18 21:13 Glitter Cells Cancelled 08/04/18 21:13 Urine Bacteria 20-50 /HPF (NONE SEEN) H 08/04/18 21:16 Hyaline Casts Cancelled 08/04/18 21:13 Fine Granular Casts Cancelled 08/04/18 21:13 Coarse Granular Casts Cancelled 08/04/18 21:13 Waxy Casts Cancelled 08/04/18 21:13 RBC Casts Cancelled 08/04/18 21:13 WBC Casts Cancelled 08/04/18 21:13 Urine Mucus Cancelled 08/04/18 21:13 Urine Other Cancelled 08/04/18 21:13 Urine Trichomonas Cancelled 08/04/18 21:13 Urine Yeast Cancelled 08/04/18 21:13 Ur Yeast w Hyphae Cancelled 08/04/18 21:13 Urine Yeast (Budding) Cancelled 08/04/18 21:13 Urine Sperm Cancelled 08/04/18 21:13 Urine Culture Reflexed Not needed 08/04/18 21:16 Urine Total Volume Cancelled 11/21/18 21:13 Urine Glucose Negative (NEG) 08/04/18 21:16 Urine Total Protein 1+ (NEG) H 08/04/18 21:16 Microbiology Data (last 24 hrs): 08/04/18 20:35 Blood - Blood Aerobic Blood Culture - Final No growth in 5 days. 08/04/18 20:35 Blood - Blood Anaerobic Blood Culture - Final No growth in 5 days. 08/04/18 20:55 Blood - Blood Aerobic Blood Culture - Final No growth in 5 days. 08/04/18 20:55 Blood - Blood Anaerobic Blood Culture - Final No growth in 5 days. Urine culture growing ESBL e coli Medications List Reviewed: Yes Assessment And Plan - Plan Urinary tract infection, with E. coli, ESBL Patient with recent hospitalization, multiple antibiotics. Urine analysis with evidence of the UTI. Urine cultures with ESBL E. coli Continue meropenem. As patient was admitted with altered mentation, found to have a UTI, would consider this as symptomatic urinary tract infection. Would recommend IV meropenem x2 weeks. PICC line placed, chest x-ray noted its correct position. Pharmacy consult for renal dosage adjustment. Patient discharged to longterm facility for IV antibiotics for the next 2 weeks along with the rehab. C. diff colitis Patient initially with diarrhea, C. diff positive. Patient does meet severe infection criteria as patient is altered since over 58 years old, as well as has a leukocytosis, serum creatinine increase and low albumin. He also has a history of recent antibiotics. Will treat him with oral vancomycin 125 mg q. 6 x [address] patient on contact isolation Diarrhea improving Generalized weakness Physical therapy Consulted. Patient will receive physical therapy and longterm facility as well Hypoalbuminemia Protein supplementation Chronic kidney disease, stage III Nephrology consulted, recommendations appreciated Improved creatinine and renal function. Monitor creatinine Essential Hypertension Blood pressure stable. Continue home amlodipine and metoprolol. No medication changes at time of discharge Hypernatremia: Resolved Currently on half-normal saline. Nephrology on board Discharge Plan: [facility] - Code Status/Comfort Care Code Status Assessed: Yes Physician Review: Patient Assessed, Agree with Above Assessment and Plan Time Spent Managing PTS Care (In Minutes): 33
[2018-08-10] MEDS ORDERED: GABAPENTIN 300 MG CAP PO SCH (21:00)
--- NOTE | 2018-08-11 01:35 | PN ---
Date of Progress Note: 08/10/2018 Subjective: The patient was admitted with acute kidney injury secondary to prerenal, recover. The p atient feeling better. No nausea. No vomiting. Physical Examination: Vital Signs: Blood pressure 128/63, pulse of 78. Chest: Clear to auscultation. Heart: S1, S2. Regular. Abdomen: Soft, nontender. Extremities: Trace edema. Laboratory Data: Sodium 143, potassium 4.5, bicarb 24, BUN 23, creatinine 1.8, calcium 7.8. H and H are 12.3/37. Current Medications: The patient on its include alprazolam, Norvasc, meropenem, metoprolol, Zofran, vancomycin. Assessment And Plan: 1.Acute kidney injury secondary to prerenal secondary to gastrointestinal loss, recover, resolved. 2.Hypertension, controlled, optimal. Continue current medication. 3.Clostridium diff colitis. Continue oral vancomycin and we will follow up. 4.Urinary tract infection. Continue current antibiotic. The patient cleared from the renal standpo int for discharge planning. DONN Voice ID: [id number] Report ID: [id number]
== END 2018-08-10 13:43 | DRG 690 ==
LOC: ER 20:46 → ERHOLD 22:25 → 2ND 23:12
PROVIDERS: ADMIT Hospitalist; ATTEND Hospitalist
PROC: 02HV33Z Insertion of Infusion Device into Superior Vena Cava, Percutaneous Approach (ICD-10-PCS; principal; 2018-08-07)
DX: N39.0 Urinary tract infection, site not specified (principal); A04.72 Enterocolitis due to Clostridium difficile, not specified as recurrent; E87.0 Hyperosmolality and hypernatremia; N17.9 Acute kidney failure, unspecified; B96.20 Unspecified Escherichia coli [E. coli] as the cause of diseases classified elsewhere; Z16.12 Extended spectrum beta lactamase (ESBL) resistance; R53.1 Weakness; E88.09 Other disorders of plasma-protein metabolism, not elsewhere classified; I12.9 Hypertensive chronic kidney disease with stage 1 through stage 4 chronic kidney disease, or unspecified chronic kidney disease; N18.3 Chronic kidney disease, stage 3 (moderate); Z23 Encounter for immunization; F31.9 Bipolar disorder, unspecified; I25.10 Atherosclerotic heart disease of native coronary artery without angina pectoris; Z95.1 Presence of aortocoronary bypass graft; Z86.718 Personal history of other venous thrombosis and embolism
CPT/HCPCS: 36415; 70450; 71045; 76770; 80048; 80053; 80076; 81003; 81015; 82274; 82550; 82553; 82962; 83605; 83690; 83735; 83880; 84100; 84145; 84295; 84484; 85025; 85610; 85730; 87040; 87077; 87086; 87088; 87186; 87493; 90670; 93005; 97163; 99285; G0009; J0696; J1650; J3475; J7030

== ENCOUNTER 2019-03-24 13:01 | Observation (INO) | payer OTHER ==
--- OUTSIDE RECORDS SUMMARY | 2019-03-24 13:03 | XMS REPORT ---
[...] End Status Dosage System Date Date Colace [facility] 97014098709 100 MG Orally Active 1 capsule as Once a day needed Gabapentin [facility] 59610566453 300 MG Orally Active 1 capsule Twice a day Metoprolol [facility] 19079123314 25 PO BID Active TAKE ONE Tartrate TABLET BY MOUTH TWICE A DAY. TAKE WITH METOPROLOL 50MG TO TOTAL DOSE OF 75MG Amlodipine [facility] 19925243964 10 MG Orally Active 1 tablet Besylate Once a day Metoprolol [facility] 42081207318 50 PO BID Active TAKE ONE Tartrate TABLET BY MOUTH TWICE A DAY. TAKE WITH METOPROLOL 25MG TO EQUAL TOTAL DOSE OF 75MG TWICE DAILY Depakote ER [facility] 89936977410 500 MG Orally Active not defined Aspirin [facility] 78763932116 325 MG Orally Active 1 tablet Once a day Simvastatin [facility] 62409231661 40 MG Orally Active 1 tablet in Once a day the evening Remeron [facility] 36754863618 30 MG Orally Active 1 tablet at Once a day bedtime Neurontin [facility] 03571691766 300 MG Orally Active 1 capsule Twice a day before bedtime Zoloft [facility] 07810954990 100 MG Orally Active 1 tablet Once a day Results No Known Results Summary Purpose eClinicalWorks Submission
--- OUTSIDE RECORDS SUMMARY | 2019-03-24 13:03 | XMS REPORT ---
:1955 Author Organization eClinicalWorks Care Team Providers Name Role Phone Bautista Jose Manuel Provider Role Unavailable Allergies, Adverse Reactions, Alerts Substance Reaction Event Type Phenergan Info Not Available Drug Allergy Problems Problem Type Condition Code Onset Dates Condition Status Assessment Anorexia R63.0 Active Assessment Other chronic pain G89.29 Active Assessment Disc degeneration, lumbar M51.36 Active Assessment Low back pain M54.5 Active Assessment Insomnia G47.00 Active Assessment Idiopathic peripheral neuropathy G60.9 Active Assessment Bipolar disorder F31.9 Active Assessment Obstructive sleep apnea G47.33 Active Problem Bipolar disorder F31.9 Active Assessment Coronary artery disease I25.10 Active Problem Idiopathic peripheral neuropathy G60.9 Active Assessment Hyperlipidemia, mixed E78.2 Active Problem Hyperlipidemia, mixed E78.2 Active Problem Anorexia R63.0 Active Problem CKD (chronic kidney disease), stage N18.4 Active IV Problem Low back pain M54.5 Active Problem Other chronic pain G89.29 Active Assessment Generalized weakness R53.1 Active Assessment CKD (chronic kidney disease), stage N18.4 Active IV Problem Diverticulitis K57.92 Active Assessment Hypertension I10 Active Problem Memory changes R41.3 Active Problem Abnormal gait R26.9 Active Problem Disc degeneration, lumbar M51.36 Active Problem Urinary incontinence, unspecified R32 Active type Problem Insomnia G47.00 Active Problem Hypertension I10 Active Assessment Diverticulitis K57.92 Active Problem Chronic renal disease N18.9 Active Problem Obstructive sleep apnea G47.33 Active Problem Coronary artery disease I25.10 Active Problem Venous insufficiency I87.2 Active Medications Medication Code Code Instructions Start End Status Dosage System Date Date Neurontin ND 58447123411 300 MG Orally Active 1 capsule Twice a day before bedtime Aspirin [facility] 76262580856 325 MG Orally Active 1 tablet Once a day Metoprolol [facility] 14243692235 50 PO BID Active TAKE ONE Tartrate TABLET BY MOUTH TWICE A DAY. TAKE WITH METOPROLOL 25MG TO EQUAL TOTAL DOSE OF 75MG TWICE DAILY Gabapentin ND 78881252574 300 MG Orally Active 1 capsule Twice a day Depakote ER [facility] 26697594720 500 MG Orally Active not defined Remeron [facility] 07219335150 30 MG Orally Active 1 tablet at Once a day bedtime Amlodipine [facility] 05837896811 10 MG Orally Active 1 tablet Besylate Once a day Metoprolol [facility] 76869395064 25 PO BID Active TAKE ONE Tartrate TABLET BY MOUTH TWICE A DAY. TAKE WITH METOPROLOL 50MG TO TOTAL DOSE OF 75MG Colace [facility] 00723142793 100 MG Orally Active 1 capsule as Once a day needed Zoloft [facility] 57706217918 100 MG Orally Active 1 tablet Once a day Simvastatin [facility] 42800501670 40 MG Orally Active 1 tablet in Once a day the evening Results No Known Results Summary Purpose eClinicalWorks Submission
--- OUTSIDE RECORDS SUMMARY | 2019-03-24 13:03 | XMS REPORT ---
:1955 Author Organization eClinicalWorks Care Team Providers Name Role Phone BaumJose Manuel Provider Role Unavailable Allergies No Known Allergies Problems Problem Type Condition Code Onset Dates Condition Status Problem Idiopathic peripheral neuropathy G60.9 Active Problem CKD (chronic kidney disease), stage N18.4 Active IV Problem Hyperlipidemia, mixed E78.2 Active Problem Low back pain M54.5 Active Problem Other chronic pain G89.29 Active Problem Diverticulitis K57.92 Active Problem Memory changes R41.3 Active Problem Abnormal gait R26.9 Active Problem Disc degeneration, lumbar M51.36 Active Problem Urinary incontinence, unspecified R32 Active type Problem Insomnia G47.00 Active Problem Venous insufficiency I87.2 Active Problem Bipolar disorder F31.9 Active Problem Hypertension I10 Active Problem Chronic renal disease N18.9 Active Problem Coronary artery disease I25.10 Active Problem Obstructive sleep apnea G47.33 Active Medications No Known Medications Results No Known Results Summary Purpose [email or web address] Submission
--- OUTSIDE RECORDS SUMMARY | 2019-03-24 13:03 | XMS REPORT ---
[...] Status Dosage System Date Date Depakote ER [facility] 91952435881 500 MG Orally Active not defined Remeron [facility] 68721477003 30 MG Orally Active 1 tablet at Once a day bedtime Gabapentin [facility] 90799237900 300 MG Orally Active 1 capsule Twice a day Metoprolol [facility] 91146672558 25 PO BID Active TAKE ONE Tartrate TABLET BY MOUTH TWICE A DAY. TAKE WITH METOPROLOL 50MG TO TOTAL DOSE OF 75MG Colace [facility] 28863963949 100 MG Orally Active 1 capsule as Once a day needed Simvastatin ND 24871446131 40 MG Orally Active 1 tablet in Once a day the evening Neurontin ND 76738741664 300 MG Orally Active 1 capsule Twice a day before bedtime Aspirin [facility] 28332759207 325 MG Orally Active 1 tablet Once a day Metoprolol [facility] 00580101340 50 PO BID Active TAKE ONE Tartrate TABLET BY MOUTH TWICE A DAY. TAKE WITH METOPROLOL 25MG TO EQUAL TOTAL DOSE OF 75MG TWICE DAILY Zoloft [facility] 79615401743 100 MG Orally Active 1 tablet Once a day Results No Known Results Summary Purpose eClinicalWorks Submission
--- OUTSIDE RECORDS SUMMARY | 2019-03-24 13:04 | XMS REPORT ---
:1955 Author Organization eClinicalWorks Care Team Providers Name Role Phone Bautista Jose Manuel Provider Role Unavailable Allergies No Known Allergies Problems Problem Type Condition Code Onset Dates Condition Status Problem Hyperlipidemia, mixed E78.2 Active Problem Anorexia [...] Insomnia G47.00 Active Problem Hypertension I10 Active Problem Chronic renal disease N18.9 Active Problem Obstructive sleep apnea G47.33 Active Problem Coronary artery disease I25.10 Active Problem Bipolar disorder F31.9 Active Problem Venous insufficiency I87.2 Active Problem Idiopathic peripheral neuropathy G60.9 Active Medications No Known Medications Results No Known Results Summary Purpose eClinicalWorks Submission
--- OUTSIDE RECORDS SUMMARY | 2019-03-24 13:04 | XMS REPORT ---
:1955 Author Organization eClinicalWorks Care Team Providers Name Role Phone Bautista Jose Manuel Provider Role Unavailable Allergies, Adverse Reactions, Alerts Substance Reaction Event Type Phenergan Info Not Available Drug Allergy Problems Problem Type Condition Code Onset Dates Condition Status Assessment Other chronic pain G89.29 Active Assessment Disc degeneration, lumbar M51.36 Active Assessment Insomnia G47.00 Active Assessment Low back pain M54.5 Active Assessment Idiopathic peripheral neuropathy G60.9 Active Assessment Bipolar disorder F31.9 Active Assessment Encounter for screening for Z12.2 Active malignant neoplasm of lung Assessment Tobacco abuse counseling Z71.6 Active Assessment Tobacco abuse Z72.0 Active Problem Bipolar disorder F31.9 Active Assessment Obstructive sleep apnea G47.33 Active Problem Idiopathic peripheral neuropathy G60.9 Active Assessment Coronary artery disease I25.10 Active Problem Hyperlipidemia, mixed E78.2 Active Problem Anorexia R63.0 Active Problem CKD (chronic kidney disease), stage N18.4 Active IV Problem Low back pain M54.5 Active Problem Other chronic pain G89.29 Active Assessment Hypertension I10 Active Assessment CKD (chronic kidney disease), stage N18.4 Active IV Problem Diverticulitis K57.92 Active Assessment Hyperlipidemia, mixed E78.2 Active Problem Memory changes R41.3 Active Problem Abnormal gait R26.9 Active Problem Disc degeneration, lumbar M51.36 Active Problem Urinary incontinence, unspecified R32 Active type Problem Insomnia G47.00 Active Assessment Anorexia R63.0 Active Problem Hypertension I10 Active Assessment Generalized weakness R53.1 Active Problem Chronic renal disease N18.9 Active Problem Obstructive sleep apnea G47.33 Active Problem Coronary artery disease I25.10 Active Problem Venous insufficiency I87.2 Active Medications Medication Code Code Instructions Start End Status Dosage System Date Colace [facility] 94750654440 100 MG Orally Active 1 capsule as Once a day needed Zoloft [facility] 08770343022 100 MG Orally Active 1 tablet Once a day Aspirin ND 93247184764 81 MG Orally Active 1 tablet Once a day Neurontin [facility] 37627125304 300 MG Orally Active 1 capsule Twice a day before bedtime Remeron [facility] 38849719152 30 MG Orally Active 1 tablet at Once a day bedtime Amlodipine [facility] 31327451189 10 MG Orally Active 1 tablet Besylate Once a day Metoprolol [facility] 96697258397 25 PO BID Active TAKE ONE Tartrate TABLET BY MOUTH TWICE A DAY. TAKE WITH METOPROLOL 50MG TO TOTAL DOSE OF 75MG Simvastatin [facility] 03701061704 40 MG Orally Active 1 tablet in Once a day the evening Metoprolol [facility] 53226990333 50 PO BID Active TAKE ONE Tartrate TABLET BY MOUTH TWICE A DAY. TAKE WITH METOPROLOL 25MG TO EQUAL TOTAL DOSE OF 75MG TWICE DAILY Depakote ER [facility] 50040691615 500 MG Orally Active not defined Results No Known Results Summary Purpose eClinicalWorks Submission
--- OUTSIDE RECORDS SUMMARY | 2019-03-24 13:04 | XMS REPORT ---
:1955 Author Organization eClinicalWorks Care Team Providers Name Role Phone Bautista Jose Manuel Provider Role Unavailable Allergies, Adverse Reactions, Alerts Substance Reaction Event Type Phenergan Info Not Available Drug Allergy Problems Problem Type Condition Code Onset Dates Condition Status Assessment Disc degeneration, lumbar M51.36 Active Assessment Anorexia R63.0 Active Assessment Other chronic pain G89.29 Active Assessment Low back pain M54.5 Active Assessment Insomnia G47.00 Active Assessment Idiopathic peripheral neuropathy G60.9 Active Assessment Bipolar disorder F31.9 Active Problem Bipolar disorder F31.9 Active Assessment Obstructive sleep apnea G47.33 Active Problem Idiopathic peripheral neuropathy G60.9 Active Assessment Coronary artery disease I25.10 Active Problem Hyperlipidemia, mixed E78.2 Active Problem Anorexia R63.0 Active Problem CKD (chronic kidney disease), stage N18.4 Active IV Problem Low back pain M54.5 Active Problem Other chronic pain G89.29 Active Assessment CKD (chronic kidney disease), stage N18.4 Active IV Assessment Hypertension I10 Active Problem Diverticulitis K57.92 Active Assessment Hyperlipidemia, mixed E78.2 Active Problem Memory changes R41.3 Active Problem Abnormal gait R26.9 Active Problem Disc degeneration, lumbar M51.36 Active Problem Urinary incontinence, unspecified R32 Active type Problem Insomnia G47.00 Active Problem Hypertension I10 Active Assessment Generalized weakness R53.1 Active Problem Chronic renal disease N18.9 Active Problem Obstructive sleep apnea G47.33 Active Problem Coronary artery disease I25.10 Active Problem Venous insufficiency I87.2 Active Medications Medication Code Code Instructions Start End Status Dosage System Date Date Neurontin ND 49134200429 300 MG Orally Active 1 capsule Twice a day before bedtime Depakote ER ND 05917101558 500 MG Orally Active not defined Colace ND 01630034671 100 MG Orally Active 1 capsule as Once a day needed Simvastatin ND 23924762373 40 MG Orally Active 1 tablet in Once a day the evening Zoloft ND 74400277038 100 MG Orally Active 1 tablet Once a day Remeron [facility] 44386728249 30 MG Orally Active 1 tablet at Once a day bedtime Amlodipine [facility] 61397979493 10 MG Orally Active 1 tablet Besylate Once a day Gabapentin [facility] 93413402361 300 MG Orally Active 1 capsule Twice a day Aspirin [facility] 00484670286 325 MG Orally Active 1 tablet Once a day Metoprolol [facility] 93756952455 50 PO BID Active TAKE ONE Tartrate TABLET BY MOUTH TWICE A DAY. TAKE WITH METOPROLOL 25MG TO EQUAL TOTAL DOSE OF 75MG TWICE DAILY Metoprolol [facility] 27215273387 25 PO BID Active TAKE ONE Tartrate TABLET BY MOUTH TWICE A DAY. TAKE WITH METOPROLOL 50MG TO TOTAL DOSE OF 75MG Results No Known Results Summary Purpose eClinicalWorks Submission
--- OUTSIDE RECORDS SUMMARY | 2019-03-24 13:04 | XMS REPORT ---
[...] IV Problem Low back pain M54.5 Active Assessment Hypertension I10 Active Problem Other chronic pain G89.29 Active Problem Diverticulitis K57.92 Active Problem Memory changes R41.3 Active Problem Abnormal gait R26.9 Active Problem Disc degeneration, lumbar M51.36 Active Problem Urinary incontinence, unspecified R32 Active type Problem Insomnia G47.00 Active Problem Hypertension I10 Active Assessment Medicare annual wellness visit, Z00.00 Active subsequent Problem Chronic renal disease N18.9 Active Problem Obstructive sleep apnea G47.33 Active Problem Coronary artery disease I25.10 Active Problem Bipolar disorder F31.9 Active Problem Venous insufficiency I87.2 Active Problem Idiopathic peripheral neuropathy G60.9 Active Medications Medication Code Code Instructions Start End Status Dosage System Date Date Remeron [facility] 86915138207 30 MG Orally Active 1 tablet at Once a day bedtime Simvastatin ND 35899266754 40 MG Orally Active 1 tablet in Once a day the evening Amlodipine ND 19863149691 10 MG Orally Active 1 tablet Besylate Once a day Metoprolol [facility] 76282209496 50 PO BID Active TAKE ONE Tartrate TABLET BY MOUTH TWICE A DAY. TAKE WITH METOPROLOL 25MG TO EQUAL TOTAL DOSE OF 75MG TWICE DAILY Zocor [facility] 82633202611 40 MG Active TAKE ONE TABLET BY MOUTH DAILY Aspirin ND 51655965424 325 MG Orally Active 1 tablet Once a day Zoloft ND 73656001836 100 MG Orally Active 1 tablet Once a day Colace [facility] 18952010551 100 MG Orally Active 1 capsule as Once a day needed Metoprolol [facility] 38419572149 25 PO BID Active TAKE ONE Tartrate TABLET BY MOUTH TWICE A DAY. TAKE WITH METOPROLOL 50MG TO TOTAL DOSE OF 75MG Gabapentin [facility] 80141434535 300 MG Orally Active 1 capsule Twice a day Neurontin [facility] 88694402566 300 MG Orally Active 1 capsule Twice a day before bedtime Depakote ER [facility] 48841977089 500 MG Orally Active not defined Results No Known Results Summary Purpose eClinicalWorks Submission
--- NOTE | 2019-03-24 14:35 | RAD REPORT ---
EXAM DESCRIPTION: RAD - Chest Single View - 03/24/2019 2:25 pm CLINICAL HISTORY: Weakness, shortness of breath COMPARISON: July 2018 TECHNIQUE: AP portable chest image was obtained 1414 hours . FINDINGS: Lungs are clear. Heart and vasculature are normal. No measurable pleural effusion and no p neumothorax. No acute bony abnormality seen. No acute aortic finding. Sternotomy wires are in place. PICC line has been removed since the prior study. IMPRESSION: No acute cardiopulmonary process. No suspicious change from comparison.
--- NOTE | 2019-03-24 14:47 | EKG ---
Test Date: 2019-03-24 Test Time: 13:54:21 Reinforcing Metal Worker: JOHN/Raven MEASUREMENT RESULTS: Intervals: Rate: 61 WI: 160 QRSD: 92 QT: 432 QTc: 434 [place]: P: 66 WI: 160 QRS: 54 T: 80 INTERPRETIVE STATEMENTS: Normal sinus rhythm Normal ECG Compared to ECG 08/04/2018 20:46:01 ST (T wave) deviation no longer present Electronically Signed On 03-24-19 14:46:36 CDT by Han Dhillon
[2019-03-24 14:57] LABS: Absolute Lymphocytes (CBC) 2.3 K/uL (0.7-4.9); Basophils % 0.5 % (0-1.3); Eosinophils % 0.3 % (0-4.4); Hematocrit 40.6 % (39.6-49.0); Lymphocytes % 34.6 % (15.3-44.8); MPV 8.8 fL (7.6-11.3); Monocytes % 6.8 % (3.3-12.3); RBC Red Blood Cell Count 3.92 M/uL (4.33-5.43)
[2019-03-24 15:12] LABS: Protime INR 0.94
[2019-03-24 15:17] LABS: ALT/SGPT 10 U/L (12-78); AST/SGOT 6 U/L (15-37); Albumin 3.3 g/dL (3.4-5.0); Alkaline Phosphatase 80 U/L (45-117); BUN Blood Urea Nitrogen 47 mg/dL (7-18); Bicarbonate 21 mmol/L (21-32); Bilirubin Direct 0.1 mg/dL (0-0.2); Bilirubin Total 0.4 mg/dL (0.2-1.0); Glucose Level 91 mg/dL (74-106); Magnesium 2.4 mg/dL (1.8-2.4); NT PRO-BNP 1530 pg/mL (<125); Potassium 3.6 mmol/L (3.5-5.1); Protein, Total 6.8 g/dL (6.4-8.2); Sodium Level 144 mmol/L (136-145); Troponin (Emerg Dept Use Only) < 0.02 ng/mL (0.0-0.045)
--- NOTE | 2019-03-24 16:43 | ER ---
Nurse's Notes [facility] Name: Kavin Armijo Age: 64 yrs Sex: Male : 1955 Arrival Date: 03/24/2019 Time: 13:05 Bed 5 Private MD: Jose Manuel Baum Diagnosis: Acute renal fialure on chronic;Dehydration Presentation: 03/24 13:33 Presenting complaint: Patient states: sent me over here for evaluation because sg my kidney function has gotten much worse since my last blood draw. I have been feeling weak and just really fatigued with decreased appetite as well. 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 Transition of care: patient was not received from another setting of care. Onset of symptoms was March 24, 2019. Risk Assessment: Do you want to hurt yourself or someone else? Patient reports no desire to harm self or others. Initial Sepsis Screen: Does the patient meet any 2 criteria? No. Patient's initial sepsis screen is negative. Does the patient have a suspected source of infection? No. Patient's initial sepsis screen is negative. Care prior to arrival: None. 13:33 Method Of Arrival: Ambulatory sg 13:33 Acuity: CHANNING 3 sg Historical: - Allergies: 13:35 Phenergan; sg - Home Meds: 13:35 amlodipine 10 mg tab 1 tab once daily [Active]; simvastatin 40 mg Oral tab 1 tab once sg daily [Active]; sertraline 100 mg Oral tab 1 tab once daily [Active]; mirtazapine 30 mg Oral TbDL 1 tab once daily [Active]; metoprolol tartrate 25 mg Oral tab 1 tab 2 times per day [Active]; gabapentin 300 mg Oral cap 1 cap two times per day [Active]; divalproex 500 mg Oral TbEC 2 tabs once daily [Active]; divalproex 250 mg Oral Tb24 once daily [Active]; - PMHx: 13:35 anmesia; Bipolar disorder; Hypertension; Renal Disease; Sleep Apnea; sg - PSHx: 13:35 Triple Bypass; Knee surgery; sg - Immunization history:: Adult Immunizations up to date. - Social history:: Smoking status: Patient/guardian denies using tobacco. - Ebola Screening: : Patient negative for fever greater than or equal to 101.5 degrees Fahrenheit, and additional compatible Ebola Virus Disease symptoms Patient denies exposure to infectious person Patient denies travel to an Ebola-affected area in the 21 days before illness onset No symptoms or risks identified at this time. Screenin:37 Abuse screen: Denies threats or abuse. Denies injuries from another. Nutritional sg screening: No deficits noted. Tuberculosis screening: No symptoms or risk factors identified. Never had TB. Fall Risk None identified. Assessment: 13:35 General: Appears in no apparent distress. slender, well groomed, well developed, well sg nourished, Behavior is calm, cooperative, appropriate for age. Pain: Denies pain. Neuro: Level of Consciousness is awake, alert, obeys commands, Oriented to person, place, time, situation, [employer] Lead are equal bilaterally Moves all extremities. Gait is steady, Speech is normal, Facial symmetry appears normal, Pupils are PERRLA, Reports weakness generalized. Cardiovascular: Patient's skin is warm and dry. Chest pain is denied. Respiratory: Airway is patent Respiratory effort is even, unlabored, Respiratory pattern is regular, symmetrical. GI: Abdomen is flat, non-distended, Reports decreased appetite for 3-4 days. : No signs and/or symptoms were reported regarding the genitourinary system. EENT: No signs and/or symptoms were reported regarding the EENT system. Derm: Skin is pink, warm \T\ dry. Musculoskeletal: Circulation, motion, and sensation intact. Range of motion: intact in all extremities, Swelling absent. 14:35 Reassessment: Patient appears in no apparent distress at this time. Patient and/or sg family updated on plan of care and expected duration. Pain level reassessed. Patient is alert, oriented x 3, equal unlabored respirations, skin warm/dry/pink. 15:30 Reassessment: Patient appears in no apparent distress at this time. Patient and/or sg family updated on plan of care and expected duration. Pain level reassessed. Patient is alert, oriented x 3, equal unlabored respirations, skin warm/dry/pink. Patient denies pain at this time. 16:25 Reassessment: Patient appears in no apparent distress at this time. Patient and/or sg family updated on plan of care and expected duration. Pain level reassessed. Patient is alert, oriented x 3, equal unlabored respirations, skin warm/dry/pink. awaiting new orders at this time Patient denies pain at this time. 18:20 Reassessment: pt and pt family updated that pt to go upstairs after shift change, will sg continue to monitor. 19:00 Reassessment: Patient appears in no apparent distress at this time. Patient and/or sg family updated on plan of care and expected duration. Pain level reassessed. Patient is alert, oriented x 3, equal unlabored respirations, skin warm/dry/pink. pt to go upstairs after shift change, report to be called to receiving nurse, pt remains in stable condition, will continue to monitor Patient denies pain at this time. 19:45 Reassessment: Patient appears in no apparent distress at this time. Patient and/or ao family updated on plan of care and expected duration. Pain level reassessed. Patient is alert, oriented x 3, equal unlabored respirations, skin warm/dry/pink. toke over care. 20:01 Reassessment: Report given to PILLO Gutierres. ao Vital Signs: 13:32 Temp 97.3(TE); Pulse Ox 100% on R/A; sg 13:42 BP 125 / 78; Pulse 63; Resp 16; Pulse Ox 96% on R/A; sg 19:56 BP 150 / 81; Pulse 81; Resp 18; Pulse Ox 98% on R/A; Pain 0/10; ao ED Course: 13:05 Patient arrived in ED. as 13:05 Jose Manuel Baum DO is Private Physician. as 13:10 Gm Rush MD is Attending Physician. kdr 13:29 Alla Longoria RN is Primary Nurse. iw 13:32 Arm band placed on. sg 13:34 Triage completed. sg 13:58 EKG done, by pre sales technical consultant. reviewed by Gm Rush MD. dt2 14:15 X-ray completed. Portable x-ray completed in exam room. Patient tolerated procedure sw well. 14:17 XRAY Chest (1 view) In Process Unspecified. EDMS 14:19 Primary Nurse role handed off by Alla Longoria, RN sg 14:19 Ferny Tello, RN is Primary Nurse. sg 16:38 Manpreet Jones DO is Hospitalizing Provider. kdr 19:04 Primary Nurse role handed off by Ferny Tello, PILLO 20:03 Patient has correct armband on for positive identification. environmental monitoring specialist on. Pulse ao ox on. NIBP on. 20:03 No provider procedures requiring assistance completed. Patient admitted, IV remains in ao place. Administered Medications: No medications were administered Outcome: 16:42 Decision to Hospitalize by Provider. kdr 20:04 Admitted to Tele accompanied by tech, room 422, Report called to PILLO Gutierres 20:04 Condition: stable 20:16 Patient left the ED. ao Signatures: Dispatcher [employer] EDMS Ferny Tello, RN Gm King MD MD kdr Martinez, Amelia as Williams, Irene, RN RN Gracie Zimmerman Alex, RN RN ao Starr, Gregory, MD MD Cristin Renee dt2 Corrections: (The following items were deleted from the chart) 20:03 19:45 Reassessment: toke over care ao ao
--- NOTE | 2019-03-24 16:43 | EDPHYS ---
Physician Documentation [facility] Name: Kavin Armijo Age: 64 yrs Sex: Male : 1955 Arrival Date: 03/24/2019 Time: 13:05 Bed 5 Private MD: Bautista [facility] ED Physician Gm Rush HPI: 03/24 19:19 The patient had been feeling generally weak for the last few weeks. He had some blood kdr drawn yesterday and it was noted that his renal failure was worse and so he was instructed to come to the ED. Onset: The symptoms/episode began/occurred gradually, 3 week(s) ago. Severity of symptoms: At their worst the symptoms were mild in the emergency department the symptoms are unchanged. The patient has experienced similar episodes in the past, several times. The patient has been recently seen by a physician:. Historical: - Allergies: 13:35 Phenergan; sg - Home Meds: 13:35 amlodipine 10 mg tab 1 tab once daily [Active]; simvastatin 40 mg Oral tab 1 tab once sg daily [Active]; sertraline 100 mg Oral tab 1 tab once daily [Active]; mirtazapine 30 mg Oral TbDL 1 tab once daily [Active]; metoprolol tartrate 25 mg Oral tab 1 tab 2 times per day [Active]; gabapentin 300 mg Oral cap 1 cap two times per day [Active]; divalproex 500 mg Oral TbEC 2 tabs once daily [Active]; divalproex 250 mg Oral Tb24 once daily [Active]; - PMHx: 13:35 anmesia; Bipolar disorder; Hypertension; Renal Disease; Sleep Apnea; sg - PSHx: 13:35 Triple Bypass; Knee surgery; sg - Immunization history:: Adult Immunizations up to date. - Social history:: Smoking status: Patient/guardian denies using tobacco. - Ebola Screening: : Patient negative for fever greater than or equal to 101.5 degrees Fahrenheit, and additional compatible Ebola Virus Disease symptoms Patient denies exposure to infectious person Patient denies travel to an Ebola-affected area in the 21 days before illness onset No symptoms or risks identified at this time. ROS: 19:19 Constitutional: Negative for fever, chills, and weight loss, Eyes: Negative for injury, kdr pain, redness, and discharge, ENT: Negative for injury, pain, and discharge, Neck: Negative for injury, pain, and swelling, Cardiovascular: Negative for chest pain, palpitations, and edema, Respiratory: Negative for shortness of breath, cough, wheezing, and pleuritic chest pain, Abdomen/GI: Negative for abdominal pain, nausea, vomiting, diarrhea, and constipation, Back: Negative for injury and pain, : Negative for injury, bleeding, discharge, and swelling, MS/Extremity: Negative for injury and deformity. Vital Signs: 13:32 Temp 97.3(TE); Pulse Ox 100% on R/A; sg 13:42 BP 125 / 78; Pulse 63; Resp 16; Pulse Ox 96% on R/A; sg 19:56 BP 150 / 81; Pulse 81; Resp 18; Pulse Ox 98% on R/A; Pain 0/10; ao MDM: 16:42 Patient medically screened. [facility] 03/24 13:48 Order name: Basic Metabolic Panel; Complete Time: 15:40 [facility] 03/24 15:57 Interpretation: GFR 16. [facility] 03/24 13:48 Order name: CBC with Diff; Complete Time: 15:40 [facility] 03/24 13:48 Order name: LFT's; Complete Time: 15:40 [facility] 03/24 13:48 Order name: Magnesium; Complete Time: 15:40 [facility] 03/24 13:48 Order name: NT PRO-BNP; Complete Time: 15:40 [facility] 03/24 13:48 Order name: PT-INR; Complete Time: 15:40 [facility] 03/24 13:48 Order name: Troponin (emerg Dept Use Only); Complete Time: 15:40 [facility] 03/24 13:48 Order name: XRAY Chest (1 view); Complete Time: 15:40 [facility] 03/24 13:48 Order name: EKG; Complete Time: 13:49 [facility] 03/24 13:48 Order name: Cardiac monitoring; Complete Time: 14:26 [facility] 03/24 13:48 Order name: EKG - Nurse/Tech; Complete Time: 14:26 [facility] 03/24 13:48 Order name: IV Saline Lock; Complete Time: 15:44 [facility] 03/24 13:48 Order name: Labs collected and sent; Complete Time: 14:26 [facility] 03/24 13:48 Order name: O2 Per Protocol; Complete Time: 14:26 [facility] 03/24 13:48 Order name: O2 Sat Monitoring; Complete Time: 14:26 kdr Administered Medications: No medications were administered Disposition: 03/24/19 16:42 Hospitalization ordered by Manpreet Jones for Observation. Preliminary diagnosis are Acute renal fialure on chronic, Dehydration. - Bed requested for Telemetry/MedSurg (observation). - Status is Observation. ao - Condition is Fair. - Problem is chronic. - Symptoms have improved. UTI on Admission? No Signatures: Dispatcher [employer] EDFerny Corado RN RN Gm Rush MD MD [facility] Mariah Ku Alex RN RN ao Corrections: (The following items were deleted from the chart) 18:10 16:42 Hospitalization Ordered by Manpreet Jones DO for Observation. Preliminary ag diagnosis is Acute renal fialure on chronic; Dehydration. Bed requested for Telemetry/MedSurg (observation). Status is Observation. Condition is Fair. Problem is chronic. Symptoms have improved. UTI on Admission? No. kdr 20:16 18:10 03/24/2019 16:42 Hospitalization Ordered by Manpreet Jones DO for Observation. ao Preliminary diagnosis is Acute renal fialure on chronic; Dehydration. Bed requested for Telemetry/MedSurg (observation). Status is Observation. Condition is Fair. Problem is chronic. Symptoms have improved. UTI on Admission? No. ag
--- NOTE | 2019-03-24 16:53 | P.HP ---
Certification for Inpatient Patient admitted to: Observation With expected LOS: <2 Midnights Patient will require the following post-hospital care: None Practitioner: I am a practitioner with admitting privileges, knowledge of patient current condition, hospital course, and medical plan of care. Services: Services provided to patient in accordance with Admission requirements found in Title 42 Section 412.3 of the Code of Federal Regulations Patient History Date of Service: 03/24/19 Primary Care Provider: Dr. Baum; Nephro-Dr. Louie; GI-Dr. Jimenez; Oncology-Dr. Andre Reason for admission: Fatigue, nausea and diarrhea History of Present Illness: 64-year-old male presented to the emergency room with nausea, fatigue and diarrhea. Patient with history of chronic renal failure stage 4, GERD with ulcers, colon polyps, hyperlipidemia, hypertension, bipolar disorder, and CAD with prior CABG. Patient reports over the last 3 days he has been having increased fatigue. He reports increased nausea during this time. No vomiting noted. No abdominal pain noted. He also reported watery diarrhea. He denies any melena, rectal bleeding. Patient reports history of diverticulitis last year. He also had an episode of C diff colitis. No recent antibiotic use. No sick contacts noted. He does report that he was placed on Prilosec. In the ER patient was evaluated. Vital signs stable. Hemoglobin 13. White count 6.7, sodium 144, potassium 3.6. BUN of 47, creatinine 3.7 with a GFR of 16. Glucose 91. His baseline renal function is slightly compromise from previous. Patient will be admitted for observation. Patient appears stable at this time. Family at bedside. He apparently been sent to the ER due to abnormal renal function by his PCP. Patient reports he has seen GI. He had a colonoscopy in August in September and over the past year for removal of polyps. EGD October showed gastric ulcer. Allergies promethazine HCl [From Phenergan] Allergy (Severe, Verified 04/30/18 21:07) Shortness of breath chlorpromazine HCl [From Thorazine] Allergy (Intermediate, Verified 05/24/18 02: 14) Hives/Rash, Nausea Home medications list reviewed: Yes Home Medications: Amlodipine [Norvasc*] 10 mg PO DAILY 08/05/18 Divalproex ER [Depakote *ER] 750 mg PO BEDTIME 08/05/18 Gabapentin [Neurontin*] 300 mg PO BID 08/05/18 Metoprolol Tartrate [Lopressor*] 50 mg PO BID 08/05/18 Mirtazapine [Remeron*] 30 mg PO BEDTIME 08/05/18 Sertraline [Zoloft*] 100 mg PO DAILY 08/05/18 Simvastatin 40 mg PO DAILY 08/05/18 Vancomycin HCl 125 mg PO Q6H #40 capsule 08/09/18 Meropenem [Merrem 1 GM/100 ML NS IVPB] 1 gm IV Q12H 14 Days bag 08/10/18 - Past Medical/Surgical History Diabetic: No -: Obstructive sleep apnea -: Chronic renal disease, stage IV -: CAD with prior CABG x3 vessel -: Bipolar disorder -: Chronic pain -: Hypertension -: Hyperlipidemia -: Insomnia -: History of dvt right calf (knee fracture) -: Colon polyps -: GERD with ulcers -: Tobacco abuse -: CABG x3 vessel -: cholecystectomy Psychosocial/ Personal History: Patient is - Family History Mother -: Heart disease Notes: polycythemia, [place] Father -: Other (see notes) Notes: pancreatic cancer - Social History Smoking Status: Heavy Tobacco smoker (>10 cigarettes/day) Counseled patient to stop smoking for: less than 10 minutes Smoking therapy provided: Yes Patient receptive to therapy: Yes Alcohol use: No CD- Drugs: No Caffeine use: Yes Place of Residence: Home Review of Systems General: Weakness, As per HPI Eyes: Unremarkable ENT: Unremarkable Respiratory: Unremarkable Cardiovascular: Unremarkable Gastrointestinal: Nausea, Diarrhea, As per HPI Genitourinary: Unremarkable Musculoskeletal: Unremarkable Integumentary: Unremarkable Neurological: Unremarkable Lymphatics: Unremarkable Physical Examination - Physical Exam General: Alert, In no apparent distress, Oriented x3, Cooperative HEENT: Atraumatic, Normocephalic, Other (Dry mouth noted) Neck: Supple Respiratory: Clear to auscultation bilaterally, Normal air movement Cardiovascular: Normal pulses, Regular rate/rhythm Gastrointestinal: Normal bowel sounds, Soft and benign, Non-distended, No ascites, No tenderness, No masses, No rebound, No guarding Musculoskeletal: No erythema, No tenderness, No warmth Integumentary: No warmth, No cyanosis Neurological: Normal speech, Normal strength at 5/5 x4 extr, Normal tone, Normal affect - Studies Laboratory Data (last 24 hrs) 03/24/19 14:40: PT 11.1, INR 0.94 03/24/19 14:40: WBC 6.7, Hgb 13.3 L, Hct 40.6, Plt Count 202 03/24/19 14:40: Sodium 144, Potassium 3.6, BUN 47 H, Creatinine 3.74 H, Glucose 91, Magnesium 2.4, Total Bilirubin 0.4, AST 6 L, ALT 10 L, Alkaline Phosphatase 80 Assessment and Plan - Plan Impression: Nausea, diarrhea likely viral gastroenteritis with history of C diff colitis Acute on chronic renal failure stage 4 Hypertension Hyperlipidemia Bipolar disorder CAD with prior CABG Tobacco abuse Plan: Nausea, diarrhea likely viral gastroenteritis with history of C diff colitis: Patient will be admitted for observation. Suspect viral gastroenteritis. Patient has been taking Prilosec recently. Will discontinue as this may cause C diff colitis. Patient reported a history of c.diff. colitis last year. No sick contacts noted. No recent antibiotics use. Will collect stool for cultures and C diff. Will start IV fluids. Will provide medication for nausea. Case discussed with nephrology. I will turn the service over to Dr. Baum tomorrow. I will go over the plan of care with her. Anticipate discharge tomorrow if clinically improved. Acute on chronic renal failure stage 4: Renal function slightly compromised compared to baseline. Continue as above. Nephrology consulted to further address. Hypertension: Restart metoprolol 75 mg 1 pill twice daily. Hyperlipidemia: Restart Zocor 40 mg daily. Bipolar disorder: Restart Depakote 1250 mg at bedtime, mirtazapine 45 mg at bedtime, and sertraline 100 mg daily. CAD with prior CABG: Continue with aspirin 81 mg daily Tobacco abuse: Will provide tobacco cessation education. GERD with history of gastric ulcer: Will discontinue Prilosec sec as this may increase risk of C diff colitis. Will start Pepcid instead. Patient has follow up with GI in the near future. Lifestyle modification education will be provided. Discharge Plan: Home Plan to discharge in: 24 Hours - Advance Directives Does patient have a Living Will: No Does patient have a Durable POA for Healthcare: Yes Time Spent Managing Pts Care (In Minutes): 55
[2019-03-24] MEDS ORDERED: ONDANSETRON 4 MG/2 ML VIAL IV PRN (20:20)
[2019-03-24] MEDS ORDERED: ACETAMINOPHEN 500 MG TAB PO PRN (20:20)
[2019-03-24 20:22] VITALS: BMI 24.5
[2019-03-24] MEDS: DIVALPROEX DR 500MG TAB PO SCH (22:08)
[2019-03-24] MEDS: D5 0.9 NS 1,000 ML IV SCH (22:08)
[2019-03-24] MEDS: ATORVASTATIN 20 MG TAB PO SCH (22:09)
[2019-03-24] MEDS: LACTOBACILLUS/ACIDOPHILUS TAB PO SCH (22:09)
[2019-03-24] MEDS: METOPROLOL TAR 50 MG TAB PO SCH (22:09)
[2019-03-24] MEDS: MIRTAZAPINE 15 MG TAB PO SCH (22:16)
[2019-03-24 23:00] LABS: Urine Appearance CLEAR; Urine Bilirubin NEGATIVE (NEG); Urine Blood NEGATIVE (NEG); Urine Color YELLOW; Urine Glucose NEGATIVE (NEG); Urine Protein NEGATIVE (NEG); Urine Urobilinogen 0.2 mg/dL (0.2-1.0)
[2019-03-24 23:05] LABS: Urine Microscopic Reflex NO UMIC
[2019-03-25 05:45] LABS: Absolute Lymphocytes (CBC) 3.2 K/uL (0.7-4.9); Basophils % 0.6 % (0-1.3); Eosinophils % 0.6 % (0-4.4); Hematocrit 39.5 % (39.6-49.0); Lymphocytes % 45.1 % (15.3-44.8); MPV 8.8 fL (7.6-11.3); Monocytes % 6.6 % (3.3-12.3); RBC Red Blood Cell Count 3.81 M/uL (4.33-5.43)
[2019-03-25 05:48] LABS: Magnesium 2.3 mg/dL (1.8-2.4); Potassium 3.7 mmol/L (3.5-5.1)
[2019-03-25] MEDS: D5 0.9 NS 1,000 ML IV SCH (08:45)
[2019-03-25] MEDS: SERTRALINE HCL 100 MG TAB PO SCH (08:46)
[2019-03-25] MEDS: ASPIRIN EC 81 MG TAB PO SCH (08:46)
[2019-03-25] MEDS: LACTOBACILLUS/ACIDOPHILUS TAB PO SCH ×3 (08:46→20:07)
[2019-03-25] MEDS: FAMOTIDINE 20 MG TAB PO SCH (08:46)
[2019-03-25] MEDS: METOPROLOL TAR 50 MG TAB PO SCH ×2 (08:47→20:07)
[2019-03-25] MEDS: ENOXAPARIN 30 MG/0.3 ML SQ SCH (08:48)
[2019-03-25] MEDS: CALCITROL 0.25 MCG CAP PO SCH (08:48)
[2019-03-25] MEDS ORDERED: POTASSIUM 25 MEQ EFFERV TAB PO ONE (09:00)
[2019-03-25] MEDS: D5 0.45 NS 1,000 ML IV SCH ×2 (11:53→23:14)
--- NOTE | 2019-03-25 11:58 | P.PN ---
Subjective Date of Service: 03/25/19 Primary Care Provider: Dr. Baum; Nephro-Dr. Louie; GI-Dr. Jimenez; Oncology-Dr. Andre Chief Complaint: Fatigue, nausea and diarrhea Patient seen and examined at bedside. Chart reviewed. Case discussed with nephrology. This morning patient does not have any complaints to offer. States that he feels much better than before. No episodes of diarrhea noted. No abdominal pain and noted as well. Resolved nausea and vomiting Review of Systems 10-point ROS is otherwise unremarkable Physical Examination - Vital Signs Temperature: 97.6 F Blood Pressure: 131/70 Pulse: 57 Respirations: 15 Pulse Ox (%): 95 - Physical Exam General: Alert, In no apparent distress HEENT: Atraumatic, PERRLA, EOMI Neck: Supple, JVD not distended Respiratory: Clear to auscultation bilaterally, Normal air movement Cardiovascular: Regular rate/rhythm, Normal S1 S2 Gastrointestinal: Normal bowel sounds, No tenderness Musculoskeletal: No tenderness Integumentary: No rashes Neurological: Normal speech, Normal tone, Normal affect Lymphatics: No axilla or inguinal lymphadenopathy - Studies Laboratory Data (last 24 hrs) 03/24/19 14:40: PT 11.1, INR 0.94 03/24/19 14:40: WBC 6.7, Hgb 13.3 L, Hct 40.6, Plt Count 202 03/24/19 14:40: Sodium 144, Potassium 3.6, BUN 47 H, Creatinine 3.74 H, Glucose 91, Magnesium 2.4, Total Bilirubin 0.4, AST 6 L, ALT 10 L, Alkaline Phosphatase 80 Medications List Reviewed: Yes Assessment And Plan - Current Problems (Diagnosis) (1) Diarrhea Onset Date: 05/03/18 Current Visit: No Status: Acute Plan: Patient with complaints of diarrhea nausea vomiting. Now resolved. -pending C. difficile at this time -currently on p.o. Flagyl -will continue until C. difficile results -will monitor closely Qualifiers: Diarrhea type: presumed infectious Qualified Code(s): R19.7 - Diarrhea, unspecified (2) ROSS (acute kidney injury) Current Visit: Yes Status: Acute Plan: Acute kidney injury on chronic kidney disease stage 4 -started on IV fluids yesterday. Was switched to D5 W today -nephrology is consulted. Appreciated recommendations at this time -will monitor patient closely -BUN and creatinine improved (3) Bipolar disorder Onset Date: 02/23/18 Current Visit: No Status: Chronic Qualifiers: Active/Remission status: remission status unspecified Qualified Code(s): F31.9 - Bipolar disorder, unspecified (4) CAD (coronary artery disease) Onset Date: 02/23/18 Current Visit: No Status: Chronic Qualifiers: Coronary Disease-Associated Artery/Lesion type: [place] artery [place] vs. transplanted heart: [place] heart - Plan Pending clinical improvement at this time. Will continue with fluids at this time. Discharge Plan: Home - Code Status/Comfort Care Code Status Assessed: Yes Critical Care: No
--- NOTE | 2019-03-25 12:13 | P.CNS ---
Date of Consult: 03/25/19 Reason for Consult: ROSS Primary Care Provider: Dr. Baum; Nephro-Dr. Louie; GI-Dr. Jimenez; Oncology-Dr. Andre Chief Complaint: Fatigue, nausea and diarrhea History of Present Illness: A 64 Y/o man with PMHx of CKD IV, GERD with ulcers, colon polyps, hyperlipidemia, hypertension, bipolar disorder, and CAD S/P CABG. pt was sent by PCP for abnormal labs pt sent for low k and elevated RFT pt was complaining of diarrhea, and abd pain with nausea, no vomiting for the last 4-5day pt denied fever, chills, change in meds, NSAID or contrast exposure in ER potassium 3.6. BUN of 47, creatinine 3.7 with a GFR of 16. Glucose 91. Allergies promethazine HCl [From Phenergan] Allergy (Severe, Verified 03/24/19 20:22) Shortness of breath chlorpromazine HCl [From Thorazine] Allergy (Intermediate, Verified 03/24/19 20: 22) Hives/Rash, Nausea Home Medications: Aspirin Chewable [Aspirin Chewable*] 81 mg PO DAILY 03/24/19 Calcitrol [Rocaltrol*] 0.25 mg PO DAILY 03/24/19 Divalproex Sodium 1,000 mg PO BEDTIME 03/24/19 Divalproex Sodium 250 mg PO BEDTIME 03/24/19 Metoprolol Tartrate 75 mg PO BID 03/24/19 Mirtazapine 30 mg PO BEDTIME 03/24/19 Sertraline [Zoloft*] 100 mg PO DAILY 03/24/19 Simvastatin 40 mg PO BEDTIME 03/24/19 - Past Medical/Surgical History Diabetic: No -: Obstructive sleep apnea -: Chronic renal disease, stage IV -: CAD with prior CABG x3 vessel -: Bipolar disorder -: Chronic pain -: Hypertension -: Hyperlipidemia -: Insomnia -: History of dvt right calf (knee fracture) -: Colon polyps -: GERD with ulcers -: Tobacco abuse -: CABG x3 vessel -: cholecystectomy Psychosocial/ Personal History: Patient is - Family History Mother Medical History: Heart disease Notes: polycythemia, [place] Father Medical History: Other (see notes) Notes: pancreatic cancer - Social History Smoking Status: Current every day smoker Alcohol use: No CD- Drugs: No Caffeine use: Yes Place of Residence: Home Physical Examination Temp Pulse Resp BP Pulse Ox 97.6 F 57 15 131/70 95 03/25/19 11:58 03/25/19 11:58 03/25/19 11:58 03/25/19 11:58 03/25/19 11:58 General: In no apparent distress, Oriented x3 HEENT: Atraumatic Neck: Supple, JVD not distended, Without JVD or thyroid abnormality Respiratory: Clear to auscultation bilaterally, Normal air movement Cardiovascular: No edema, Regular rate/rhythm, Normal S1 S2 Gastrointestinal: Normal bowel sounds, Soft and benign, Non-distended Laboratory Data (last 24 hrs) 03/24/19 14:40: PT 11.1, INR 0.94 03/24/19 14:40: WBC 6.7, Hgb 13.3 L, Hct 40.6, Plt Count 202 03/24/19 14:40: Sodium 144, Potassium 3.6, BUN 47 H, Creatinine 3.74 H, Glucose 91, Magnesium 2.4, Total Bilirubin 0.4, AST 6 L, ALT 10 L, Alkaline Phosphatase 80 - Problems (1) ROSS (acute kidney injury) Current Visit: Yes Status: Acute Conclusions/Impression: ROSS on CKD Cr baseline ~2.8 in RE 3.7 and improving to 3.2 will cont IVF will send for renal US will change fluid to D5 1/2 NS due to hypernatremia UA no prot or bld hypernatremia will change fluid as above Abd pain and diarrhea improved Cont IVF F/u C.diff results HTN controlled CAD stable
--- NOTE | 2019-03-25 14:54 | RAD REPORT ---
EXAM DESCRIPTION: US - Renal Ultrasound-Complete - 03/25/2019 2:47 pm CLINICAL HISTORY: ROSS on CKD COMPARISON: Abdomen Exam Complete dated 01/10/2019 FINDINGS: Both kidneys are highly echogenic. The right kidney measures 10.7 x 5.8 x 5.0 cm. No hydronephrosis, focal mass or perinephric fluid. Sm all benign right renal cyst measuring 11 mm noted. The left kidney measures 11.0 x 5.9 x 4.9 cm. No hydronephrosis, focal mass or perinephric fluid. Sma ll benign left renal cysts are present, largest measuring 25 x 21 mm. The urinary bladder is incompletely distended without gross abnormality seen. IMPRESSION: Highly echogenic kidneys bilaterally compatible with underlying medical renal disease.
[2019-03-25] MEDS: ATORVASTATIN 20 MG TAB PO SCH (20:07)
[2019-03-25] MEDS: MIRTAZAPINE 15 MG TAB PO SCH (20:07)
[2019-03-25] MEDS: DIVALPROEX DR 500MG TAB PO SCH (20:08)
[2019-03-26 06:12] LABS: Hematocrit 40.3 % (39.6-49.0); MPV 8.8 fL (7.6-11.3); RBC Red Blood Cell Count 3.86 M/uL (4.33-5.43)
[2019-03-26 06:17] LABS: Potassium 4.2 mmol/L (3.5-5.1)
[2019-03-26 06:33] LABS: Blood Morphology Comment NOT SEEN (NOT SEEN); Platelet Estimate ADEQ
[2019-03-26] MEDS: ENOXAPARIN 30 MG/0.3 ML SQ SCH (08:53)
[2019-03-26] MEDS: METOPROLOL TAR 50 MG TAB PO SCH (08:53)
[2019-03-26] MEDS: CALCITROL 0.25 MCG CAP PO SCH (08:54)
[2019-03-26] MEDS: SERTRALINE HCL 100 MG TAB PO SCH (08:54)
[2019-03-26] MEDS: ASPIRIN EC 81 MG TAB PO SCH (08:54)
[2019-03-26] MEDS: LACTOBACILLUS/ACIDOPHILUS TAB PO SCH ×2 (08:54→12:53)
[2019-03-26 08:55] VITALS: O2SAT 95
[2019-03-26] MEDS: FAMOTIDINE 20 MG TAB PO SCH (09:04)
--- NOTE | 2019-03-26 10:48 | P.PN ---
Subjective Date of Service: 03/26/19 Primary Care Provider: Dr. Baum; Nephro-Dr. Louie; GI-Dr. Jimenez; Oncology-Dr. Andre Chief Complaint: Fatigue, nausea and diarrhea Subjective: Improving No new complaint Cr down to baseline Stable VS pt is cleared for discharge from nephrology point of view Physical Examination - Vital Signs Temperature: 97.6 F Blood Pressure: 137/77 Pulse: 61 Respirations: 20 Pulse Ox (%): 98 - Physical Exam General: In no apparent distress, Oriented x3 HEENT: Atraumatic Neck: Supple, JVD not distended, Without JVD or thyroid abnormality Respiratory: Clear to auscultation bilaterally, Normal air movement Cardiovascular: No edema, Normal S1 S2, No gallops, No rubs, No murmurs Gastrointestinal: Normal bowel sounds, Soft and benign Musculoskeletal: No clubbing, No swelling Integumentary: No rashes - Studies Medications List Reviewed: Yes Assessment And Plan - Current Problems (Diagnosis) (1) ROSS (acute kidney injury) Current Visit: Yes Status: Acute - Plan ROSS on CKD Due to prerenal azotemia Cr baseline ~2.8 in RE 3.7 and improving to 2.9 UA no prot or bld US; b/l echogenic kidney s hypernatremia resolved NS induced Abd pain and diarrhea resolved HTN controlled CAD stable
--- NOTE | 2019-03-26 11:54 | P.DS ---
Admission Date: 03/24/19 Discharge Date: 03/26/19 Primary Care Provider: Dr. Baum; Nephro-Dr. Louie; GI-Dr. Jimenez; Oncology-Dr. Andre Disposition: ROUTINE DISCHARGE Discharge Condition: GOOD Reason for Admission: Fatigue, nausea and diarrhea Consultations: Nephrology - Problems (1) Diarrhea Onset Date: 05/03/18 Current Visit: No Status: Resolved Qualifiers: Diarrhea type: presumed infectious Qualified Code(s): R19.7 - Diarrhea, unspecified (2) ROSS (acute kidney injury) Current Visit: Yes Status: Acute (3) Bipolar disorder Onset Date: 02/23/18 Current Visit: No Status: Chronic Qualifiers: Active/Remission status: remission status unspecified Qualified Code(s): F31.9 - Bipolar disorder, unspecified (4) CAD (coronary artery disease) Onset Date: 02/23/18 Current Visit: No Status: Chronic Qualifiers: Coronary Disease-Associated Artery/Lesion type: [place] artery [place] vs. transplanted heart: [place] heart Brief History of Present Illness: 64-year-old male presented to the emergency room with nausea, fatigue and diarrhea. Patient with history of chronic renal failure stage 4, GERD with ulcers, colon polyps, hyperlipidemia, hypertension, bipolar disorder, and CAD with prior CABG. Patient reports over the last 3 days he has been having increased fatigue. He reports increased nausea during this time. No vomiting noted. No abdominal pain noted. He also reported watery diarrhea. He denies any melena, rectal bleeding. Patient reports history of diverticulitis last year. He also had an episode of C diff colitis. No recent antibiotic use. No sick contacts noted. He does report that he was placed on Prilosec. In the ER patient was evaluated. Vital signs stable. Hemoglobin 13. White count 6.7, sodium 144, potassium 3.6. BUN of 47, creatinine 3.7 with a GFR of 16. Glucose 91. His baseline renal function is slightly compromise from previous. Patient will be admitted for observation. Patient appears stable at this time. Family at bedside. He apparently been sent to the ER due to abnormal renal function by his PCP. Patient reports he has seen GI. He had a colonoscopy in August in September and over the past year for removal of polyps. EGD October showed gastric ulcer. Hospital Course: Overall during the hospital stay patient remained stable. The patient was initially admitted to the hospital for nausea vomiting dehydration and acute kidney injury. The area was presumed to be infectious. Most likely viral gastroenteritis. Patient had C. diff culture done here in the hospital which remained negative. Patient was started on IV fluids. Had resolution of his diarrhea. For patient's acute kidney injury. Nephrology was consulted. Nephrology recommended containing IV fluids %period% creatinine improved to 2.90. At which point patient then was discharged home under stable condition was asked to continue taking medication as prescribed by primary care doctor. Patient was also asked to follow up with nephrology in about 1-2 days post discharge along with primary care provider. Patient demonstrate understanding and thus was discharged home under stable condition. Vital Signs/Physical Exam: Temp Pulse Resp BP Pulse Ox 97.6 F 61 20 137/77 98 03/26/19 10:50 03/26/19 10:50 03/26/19 10:50 03/26/19 10:50 03/26/19 10:50 General: Alert, In no apparent distress HEENT: Atraumatic, PERRLA, EOMI Neck: Supple, JVD not distended Respiratory: Clear to auscultation bilaterally, Normal air movement Cardiovascular: Regular rate/rhythm, Normal S1 S2 Gastrointestinal: Normal bowel sounds, No tenderness Musculoskeletal: No tenderness Integumentary: No rashes Neurological: Normal speech, Normal tone, Normal affect Lymphatics: No axilla or inguinal lymphadenopathy Laboratory Data at Discharge: WBC 6.7 K/uL (4.3-10.9) 03/26/19 05:33 Hgb 13.2 g/dL (13.6-17.9) L 03/26/19 05:33 Hct 40.3 % (39.6-49.0) 03/26/19 05:33 Plt Count 162 K/uL (152-406) 03/26/19 05:33 PT 11.1 SECONDS (9.5-12.5) 03/24/19 14:40 INR 0.94 03/24/19 14:40 Sodium 144 mmol/L (136-145) 03/26/19 05:33 Potassium 4.2 mmol/L (3.5-5.1) 03/26/19 05:33 BUN 38 mg/dL (7-18) H 03/26/19 05:33 Creatinine 2.90 mg/dL (0.55-1.3) H 03/26/19 05:33 Glucose 81 mg/dL (74-106) 03/26/19 05:33 Magnesium 2.0 mg/dL (1.8-2.4) 03/26/19 05:33 Total Bilirubin 0.4 mg/dL (0.2-1.0) 03/24/19 14:40 AST 6 U/L (15-37) L 03/24/19 14:40 ALT 10 U/L (12-78) L 03/24/19 14:40 Alkaline Phosphatase 80 U/L (45-117) 03/24/19 14:40 Home Medications: Aspirin Chewable [Aspirin Chewable*] 81 mg PO DAILY 03/24/19 Calcitrol [Rocaltrol*] 0.25 mg PO DAILY 03/24/19 Divalproex Sodium 1,000 mg PO BEDTIME 03/24/19 Divalproex Sodium 250 mg PO BEDTIME 03/24/19 Metoprolol Tartrate 75 mg PO BID 03/24/19 Mirtazapine 30 mg PO BEDTIME 03/24/19 Sertraline [Zoloft*] 100 mg PO DAILY 03/24/19 Simvastatin 40 mg PO BEDTIME 03/24/19 Lactobacillus Acidophilus [Acidophilus Probiotic] 0.5 mg PO BID #60 tablet 03/26 New Medications: Lactobacillus Acidophilus [Acidophilus Probiotic] 0.5 mg PO BID #60 tablet Followup: Annie Ziegler MD [ACTIVE - CAN ADMIT] - 1 Week (kidney doctor- Call to schedule an appointment )
[2019-03-26 17:38] VITALS: BP 147/81; TEMP 97
== END 2019-03-26 13:11 | disposition home or self-care (01) ==
LOC: ER 13:01 → ERHOLD 16:40 → 4TH 20:01
PROVIDERS: ADMIT Family Medicine; ATTEND Family Medicine
DX: I12.9 Hypertensive chronic kidney disease with stage 1 through stage 4 chronic kidney disease, or unspecified chronic kidney disease (principal); N18.4 Chronic kidney disease, stage 4 (severe); N17.9 Acute kidney failure, unspecified; E86.0 Dehydration; R19.7 Diarrhea, unspecified; E87.0 Hyperosmolality and hypernatremia; E78.5 Hyperlipidemia, unspecified; I25.10 Atherosclerotic heart disease of native coronary artery without angina pectoris; R79.89 Other specified abnormal findings of blood chemistry; G47.33 Obstructive sleep apnea (adult) (pediatric); K21.9 Gastro-esophageal reflux disease without esophagitis; F31.9 Bipolar disorder, unspecified; F17.200 Nicotine dependence, unspecified, uncomplicated; Z79.82 Long term (current) use of aspirin; Z79.899 Other long term (current) drug therapy; Z86.718 Personal history of other venous thrombosis and embolism; Z95.1 Presence of aortocoronary bypass graft
CPT/HCPCS: 93005; 87045; 85025 ×3; 80048 ×3; 36415 ×2; 83735 ×3; 87177; 85610; 80076; 87046; 87493; 87209; 81003; 84484; 83880; 71045; 76770; 99285; J1650 ×2; G0378 ×2

== ENCOUNTER 2019-04-07 17:45 | Inpatient (IN) | payer OTHER ==
--- OUTSIDE RECORDS SUMMARY | 2019-04-07 17:48 | XMS REPORT ---
[...] Depakote ER [facility] [id number] 500 MG Orally Active not defined Remeron [facility] [id number] 30 MG Orally Active 1 tablet at Once a day bedtime Gabapentin [facility] [id number] 300 MG Orally Active 1 capsule Twice a day Metoprolol [facility] [id number] 25 PO BID Active TAKE ONE Tartrate TABLET BY MOUTH TWICE A DAY. TAKE WITH METOPROLOL 50MG TO TOTAL DOSE OF 75MG Colace [facility] [id number] 100 MG Orally Active 1 capsule as Once a day needed Simvastatin ND 09809584670 40 MG Orally Active 1 tablet in Once a day the evening Neurontin ND [id number] 300 MG Orally Active 1 capsule Twice a day before bedtime Aspirin [facility] 22874444523 325 MG Orally Active 1 tablet Once a day Metoprolol [facility] 10169011968 50 PO BID Active TAKE ONE Tartrate TABLET BY MOUTH TWICE A DAY. TAKE WITH METOPROLOL 25MG TO EQUAL TOTAL DOSE OF 75MG TWICE DAILY Zoloft [facility] 92044586251 100 MG Orally Active 1 tablet Once a day Results No Known Results Summary Purpose eClinicalWorks Submission
--- OUTSIDE RECORDS SUMMARY | 2019-04-07 17:48 | XMS REPORT ---
[...] End Status Dosage System Date Date Colace [facility] [id number] 100 MG Orally Active 1 capsule as Once a day needed Gabapentin [facility] 10724769569 300 MG Orally Active 1 capsule Twice a day Metoprolol [facility] 83959891567 25 PO BID Active TAKE ONE Tartrate TABLET BY MOUTH TWICE A DAY. TAKE WITH METOPROLOL 50MG TO TOTAL DOSE OF 75MG Amlodipine [facility] 66001673640 10 MG Orally Active 1 tablet Besylate Once a day Metoprolol [facility] 63053656091 50 PO BID Active TAKE ONE Tartrate TABLET BY MOUTH TWICE A DAY. TAKE WITH METOPROLOL 25MG TO EQUAL TOTAL DOSE OF 75MG TWICE DAILY Depakote ER [facility] 74163590736 500 MG Orally Active not defined Aspirin [facility] 70810535676 325 MG Orally Active 1 tablet Once a day Simvastatin [facility] 46357659788 40 MG Orally Active 1 tablet in Once a day the evening Remeron [facility] 71970094132 30 MG Orally Active 1 tablet at Once a day bedtime Neurontin [facility] 74629753038 300 MG Orally Active 1 capsule Twice a day before bedtime Zoloft [facility] 64623331548 100 MG Orally Active 1 tablet Once a day Results No Known Results Summary Purpose eClinicalWorks Submission
--- OUTSIDE RECORDS SUMMARY | 2019-04-07 17:48 | XMS REPORT ---
[...] Medications Results No Known Results Summary Purpose [employer] Submission
--- OUTSIDE RECORDS SUMMARY | 2019-04-07 17:48 | XMS REPORT ---
[...] End Status Dosage System Date Date Remeron [facility] 22821865601 30 MG Orally Active 1 tablet at Once a day bedtime Simvastatin ND 64599077011 40 MG Orally Active 1 tablet in Once a day the evening Amlodipine ND 55299472442 10 MG Orally Active 1 tablet Besylate Once a day Metoprolol [facility] 82697207921 50 PO BID Active TAKE ONE Tartrate TABLET BY MOUTH TWICE A DAY. TAKE WITH METOPROLOL 25MG TO EQUAL TOTAL DOSE OF 75MG TWICE DAILY Zocor [facility] 88001547982 40 MG Active TAKE ONE TABLET BY MOUTH DAILY Aspirin ND 96651461027 325 MG Orally Active 1 tablet Once a day Zoloft ND 08838843345 100 MG Orally Active 1 tablet Once a day Colace [facility] 82249306472 100 MG Orally Active 1 capsule as Once a day needed Metoprolol [facility] 64511697188 25 PO BID Active TAKE ONE Tartrate TABLET BY MOUTH TWICE A DAY. TAKE WITH METOPROLOL 50MG TO TOTAL DOSE OF 75MG Gabapentin [facility] 89086922204 300 MG Orally Active 1 capsule Twice a day Neurontin [facility] 03321355861 300 MG Orally Active 1 capsule Twice a day before bedtime Depakote ER [facility] 83719320660 500 MG Orally Active not defined Results No Known Results Summary Purpose eClinicalWorks Submission
--- OUTSIDE RECORDS SUMMARY | 2019-04-07 17:48 | XMS REPORT ---
[...] Status Dosage System Date Date Neurontin ND 97021735857 300 MG Orally Active 1 capsule Twice a day before bedtime Depakote ER ND 02752819184 500 MG Orally Active not defined Colace ND 39285373733 100 MG Orally Active 1 capsule as Once a day needed Simvastatin ND 54981196490 40 MG Orally Active 1 tablet in Once a day the evening Zoloft ND 57029564554 100 MG Orally Active 1 tablet Once a day Remeron [facility] 79224921072 30 MG Orally Active 1 tablet at Once a day bedtime Amlodipine [facility] 11319686460 10 MG Orally Active 1 tablet Besylate Once a day Gabapentin [facility] 02677634536 300 MG Orally Active 1 capsule Twice a day Aspirin [facility] 55447581478 325 MG Orally Active 1 tablet Once a day Metoprolol [facility] 27827525974 50 PO BID Active TAKE ONE Tartrate TABLET BY MOUTH TWICE A DAY. TAKE WITH METOPROLOL 25MG TO EQUAL TOTAL DOSE OF 75MG TWICE DAILY Metoprolol [facility] 76567003814 25 PO BID Active TAKE ONE Tartrate TABLET BY MOUTH TWICE A DAY. TAKE WITH METOPROLOL 50MG TO TOTAL DOSE OF 75MG Results No Known Results Summary Purpose eClinicalWorks Submission
--- OUTSIDE RECORDS SUMMARY | 2019-04-07 17:48 | XMS REPORT ---
[...] Status Dosage System Date Date Neurontin ND 88068388320 300 MG Orally Active 1 capsule Twice a day before bedtime Aspirin [facility] 79282155737 325 MG Orally Active 1 tablet Once a day Metoprolol [facility] 69773552008 50 PO BID Active TAKE ONE Tartrate TABLET BY MOUTH TWICE A DAY. TAKE WITH METOPROLOL 25MG TO EQUAL TOTAL DOSE OF 75MG TWICE DAILY Gabapentin ND 01377724451 300 MG Orally Active 1 capsule Twice a day Depakote ER [facility] 26540309927 500 MG Orally Active not defined Remeron [facility] 60502142377 30 MG Orally Active 1 tablet at Once a day bedtime Amlodipine [facility] 07078154886 10 MG Orally Active 1 tablet Besylate Once a day Metoprolol [facility] 46146933367 25 PO BID Active TAKE ONE Tartrate TABLET BY MOUTH TWICE A DAY. TAKE WITH METOPROLOL 50MG TO TOTAL DOSE OF 75MG Colace [facility] 88125480063 100 MG Orally Active 1 capsule as Once a day needed Zoloft [facility] 11240839510 100 MG Orally Active 1 tablet Once a day Simvastatin [facility] 91814953424 40 MG Orally Active 1 tablet in Once a day the evening Results No Known Results Summary Purpose eClinicalWorks Submission
--- OUTSIDE RECORDS SUMMARY | 2019-04-07 17:48 | XMS REPORT ---
[...] Start End Status Dosage System Date Colace [facility] 00114734903 100 MG Orally Active 1 capsule as Once a day needed Zoloft [facility] 43949823373 100 MG Orally Active 1 tablet Once a day Aspirin ND 43114999114 81 MG Orally Active 1 tablet Once a day Neurontin [facility] 44156541598 300 MG Orally Active 1 capsule Twice a day before bedtime Remeron [facility] 47736021130 30 MG Orally Active 1 tablet at Once a day bedtime Amlodipine [facility] 34939363560 10 MG Orally Active 1 tablet Besylate Once a day Metoprolol [facility] 20685380480 25 PO BID Active TAKE ONE Tartrate TABLET BY MOUTH TWICE A DAY. TAKE WITH METOPROLOL 50MG TO TOTAL DOSE OF 75MG Simvastatin [facility] 62175889944 40 MG Orally Active 1 tablet in Once a day the evening Metoprolol [facility] 72695238356 50 PO BID Active TAKE ONE Tartrate TABLET BY MOUTH TWICE A DAY. TAKE WITH METOPROLOL 25MG TO EQUAL TOTAL DOSE OF 75MG TWICE DAILY Depakote ER [facility] 09721163518 500 MG Orally Active not defined Results No Known Results Summary Purpose eClinicalWorks Submission
--- OUTSIDE RECORDS SUMMARY | 2019-04-07 17:49 | XMS REPORT ---
:1955 Author Organization eClinicalWorks Care Team Providers Name Role Phone Horace Baumh Provider Role Unavailable Allergies, Adverse Reactions, Alerts Substance Reaction Event Type Phenergan Info Not Available Drug Allergy Problems Problem Type Condition Code Onset Dates Condition Status Assessment Disc degeneration, lumbar M51.36 Active Assessment Anorexia R63.0 Active Assessment Low back pain M54.5 Active Assessment Other chronic pain G89.29 Active Assessment Insomnia G47.00 Active Assessment Idiopathic peripheral neuropathy G60.9 Active Assessment Bipolar disorder F31.9 Active Assessment Tobacco abuse Z72.0 Active Assessment Obstructive sleep apnea G47.33 Active Problem Idiopathic peripheral neuropathy G60.9 Active Assessment Generalized weakness R53.1 Active Problem Hyperlipidemia, mixed E78.2 Active Assessment Coronary artery disease I25.10 Active Problem CKD (chronic kidney disease), stage N18.4 Active IV Problem Abnormal gait R26.9 Active Problem Anorexia R63.0 Active Problem Low back pain M54.5 Active Problem Diverticulitis K57.92 Active Assessment Hypertension I10 Active Assessment CKD (chronic kidney disease), stage N18.4 Active IV Problem Elevated CEA R97.0 Active Assessment Hyperlipidemia, mixed E78.2 Active Problem Memory changes R41.3 Active Problem Urinary incontinence, unspecified R32 Active type Problem Other chronic pain G89.29 Active Problem Disc degeneration, lumbar M51.36 Active Problem Hypertension I10 Active Assessment Elevated CEA R97.0 Active Problem Coronary artery disease I25.10 Active Problem Insomnia G47.00 Active Problem Obstructive sleep apnea G47.33 Active Problem Bipolar disorder F31.9 Active Problem Venous insufficiency I87.2 Active Problem Chronic renal disease N18.9 Active Medications Medication Code Code Instructions Start End Status Dosage System Date Date Zoloft [facility] 93427900115 100 MG Orally Active 1 tablet Once a day Metoprolol [facility] 74401234657 25 PO BID Active TAKE ONE Tartrate TABLET BY MOUTH TWICE A DAY. TAKE WITH METOPROLOL 50MG TO TOTAL DOSE OF 75MG Simvastatin [facility] 67534533325 40 MG Orally Active 1 tablet in Once a day the evening Colace [facility] 92118018521 100 MG Orally Active 1 capsule as Once a day needed Depakote ER [facility] 18129424047 500 MG Orally Active not defined Metoprolol [facility] 73233772588 50 PO BID Active TAKE ONE Tartrate TABLET BY MOUTH TWICE A DAY. TAKE WITH METOPROLOL 25MG TO EQUAL TOTAL DOSE OF 75MG TWICE DAILY Neurontin [facility] 17985110059 300 MG Orally Inactive 1 capsule Twice a day before bedtime Aspirin [facility] 66713301552 81 MG Orally Active 1 tablet Once a day Remeron [facility] 52158566045 30 MG Orally Active 1 tablet at Once a day bedtime Results No Known Results Summary Purpose eClinicalWorks Submission
[2019-04-07] MEDS ORDERED: NA CHLORIDE 0.9% 500 ML ONE (18:34)
[2019-04-07 18:35] LABS: Absolute Lymphocytes (CBC) 2.2 K/uL (0.7-4.9); Basophils % 0.4 % (0-1.3); Hematocrit 40.9 % (39.6-49.0); Lymphocytes % 32.5 % (15.3-44.8); MPV 8.6 fL (7.6-11.3); RBC Red Blood Cell Count 3.92 M/uL (4.33-5.43)
[2019-04-07 18:46] LABS: Potassium 3.6 mmol/L (3.5-5.1)
--- NOTE | 2019-04-07 19:03 | ER ---
Nurse's Notes [facility] Name: Kavin Armijo Age: 64 yrs Sex: Male : 1955 Arrival Date: 04/07/2019 Time: 17:47 Bed 8 Private MD: Jose Manuel Baum Diagnosis: Acute on chronic renal failure Presentation: 04/07 17:54 Presenting complaint: states: hx of stage 4 CKD, yesterday was his last pee, now, hj he couldn't pee, reports nausea, reports general weakness; denies pain;. Transition of care: patient was not received from another setting of care. Onset of symptoms was April 07, 2019. Risk Assessment: Do you want to hurt yourself or someone else? Patient reports no desire to harm self or others. Initial Sepsis Screen: Does the patient meet any 2 criteria? No. Patient's initial sepsis screen is negative. Does the patient have a suspected source of infection? No. Patient's initial sepsis screen is negative. Care prior to arrival: None. 17:54 Method Of Arrival: Ambulatory 17:54 Acuity: CHANNING 3 hj Historical: - Allergies: 17:57 Phenergan; hj - Home Meds: 18:02 amlodipine 10 mg tab 1 tab once daily [Active]; divalproex 250 mg Oral Tb24 once daily tw2 [Active]; divalproex 500 mg Oral TbEC 2 tabs once daily [Active]; gabapentin 300 mg Oral cap 1 cap two times per day [Active]; metoprolol tartrate 25 mg Oral tab 1 tab 2 times per day [Active]; mirtazapine 30 mg Oral TbDL 1 tab once daily [Active]; sertraline 100 mg Oral tab 1 tab once daily [Active]; simvastatin 40 mg Oral tab 1 tab once daily [Active]; - PMHx: 17:57 anmesia; Bipolar disorder; Hypertension; Renal Disease; Sleep Apnea; hj - PSHx: 17:57 Triple Bypass; Knee surgery; hj - Immunization history:: Adult Immunizations. - Social history:: Smoking status: . - Ebola Screening: : Patient denies travel to an Ebola-affected area in the 21 days before illness onset. Screenin:00 Abuse screen: Denies threats or abuse. Nutritional screening: No deficits noted. tw2 Tuberculosis screening: No symptoms or risk factors identified. Fall Risk Secondary diagnosis (15 points) impaired mobility. Assessment: 18:25 General: Appears in no apparent distress. slender, Behavior is calm, cooperative, tw2 appropriate for age. Pain: Denies pain. Neuro: Level of Consciousness is awake, alert, obeys commands, Oriented to person, place, time, situation. Cardiovascular: Heart tones S1 S2 Patient's skin is warm and dry. Respiratory: Airway is patent Respiratory effort is even, unlabored, Respiratory pattern is regular, symmetrical, Breath sounds are clear bilaterally. GI: Abdomen is flat, Bowel sounds present X 4 quads. : Reports inability to void. EENT: No signs and/or symptoms were reported regarding the EENT system. Derm: Skin is dry. Musculoskeletal: Range of motion: intact in all extremities. 19:38 Reassessment: Patient and/or family updated on plan of care and expected duration. Pain bb level reassessed. Patient is alert, oriented x 3, equal unlabored respirations, skin warm/dry/pink. pt states "I am hungry I haven't eaten in a few days" pt provided with sandwich and snack. IV site intact no erythema or edema noted. Will call report and transfer pt after he has eaten. 20:00 Reassessment: report called to Janey FERRO. bb Vital Signs: 17:56 BP 99 / 63; Pulse 68; Resp 16; Temp 98.6(TE); Pulse Ox 97% on R/A; Weight 72.57 kg; hj Height 5 ft. 8 in. (172.72 cm); Pain 0/10; 18:06 BP 121 / 76; Pulse 65; Resp 18; Pulse Ox 98% on R/A; hj 18:30 BP 115 / 72; Pulse 60; Resp 15; Pulse Ox 95% ; sv 19:40 BP 121 / 72; Pulse 66; Resp 16 S; Pulse Ox 97% on R/A; bb 17:56 Body Mass Index 24.33 (72.57 kg, 172.72 cm) ED Course: 17:47 Patient arrived in ED. cl3 17:48 Jose Manuel Baum DO is Private Physician. cl3 17:48 Gm Rush MD is Attending Physician. kdr 17:55 Triage completed. hj 17:55 Arm band placed on left wrist. hj 18:00 Lion, Mery, RN is Primary Nurse. tw2 18:01 Bed in low position. Call light in reach. bus driver/monitor on. Pulse ox on. NIBP on. tw2 18:25 Inserted saline lock: 22 gauge in right antecubital area, using aseptic technique. tw2 Blood collected. 18:28 CBC with Diff Sent. tw2 18:28 Chem 7 Sent. tw2 19:00 Manpreet Jones DO is Hospitalizing Provider. kdr 19:41 No provider procedures requiring assistance completed. Patient admitted, IV remains in bb place. Administered Medications: 18:28 Drug: NS 0.9% 500 ml Route: IV; Rate: bolus; Site: right antecubital; tw2 19:30 Follow up: IV Status: Completed infusion; IV Intake: 500ml bb Intake: 19:30 IV: 500ml; Total: 500ml. bb Outcome: 19:02 Decision to Hospitalize by Provider. kdr 19:41 Admitted to Tele accompanied by nurse, via wheelchair, room 431, with chart. bb 19:41 Condition: stable 19:41 Instructed on the need for admit. 20:14 Patient left the ED. bb Signatures: Melinda Hollingsworth, RN RN Gm Rush MD MD [facility] Jeane Marroquin RN RN Manuelito Ashley, RN PILLO Mery Lion, PILLO RN tw2 Neha Malone cl3 Corrections: (The following items were deleted from the chart) 17:58 17:56 Pulse 68bpm; Resp 16bpm; Pulse Ox 97% RA; Temp 98.6F Temporal; 72.57 kg; Height 5 hj ft. 8 in.; BMI: 24.3; Pain 0/10; hj
--- NOTE | 2019-04-07 19:04 | EDPHYS ---
Physician Documentation [facility] Name: Kavin Armijo Age: 64 yrs Sex: Male : 1955 Arrival Date: 04/07/2019 Time: 17:47 Bed 8 Private MD: Bautista [facility] ED Physician Gm Rush HPI: 04/07 18:15 This 64 yrs old Male presents to ER via Ambulatory with complaints of General kdr weakness and decreased urination. 18:15 The patient was recently admitted to the hospital for general decline and weakness. He kdr has also had recent decline in renal function. Since yesterday, she has had little urine output and continues to get weak. His believes that he is also more confused than he had been.. Onset: The symptoms/episode began/occurred at an unknown time. Severity of symptoms: At their worst the symptoms were mild in the emergency department the symptoms are unchanged. The patient has experienced similar episodes in the past, chronically. The patient has been recently seen by a physician: The patient has been recently been admitted at [facility], was discharged last week. Historical: - Allergies: 17:57 Phenergan; hj - Home Meds: 18:02 amlodipine 10 mg tab 1 tab once daily [Active]; divalproex 250 mg Oral Tb24 once daily tw2 [Active]; divalproex 500 mg Oral TbEC 2 tabs once daily [Active]; gabapentin 300 mg Oral cap 1 cap two times per day [Active]; metoprolol tartrate 25 mg Oral tab 1 tab 2 times per day [Active]; mirtazapine 30 mg Oral TbDL 1 tab once daily [Active]; sertraline 100 mg Oral tab 1 tab once daily [Active]; simvastatin 40 mg Oral tab 1 tab once daily [Active]; - PMHx: 17:57 anmesia; Bipolar disorder; Hypertension; Renal Disease; Sleep Apnea; hj - PSHx: 17:57 Triple Bypass; Knee surgery; hj - Immunization history:: Adult Immunizations. - Social history:: Smoking status: . - Ebola Screening: : Patient denies travel to an Ebola-affected area in the 21 days before illness onset. ROS: 18:15 Constitutional: Negative for fever, chills, and weight loss - he has been generally kdr weak Eyes: Negative for injury, pain, redness, and discharge, ENT: Negative for injury, pain, and discharge, Neck: Negative for injury, pain, and swelling, Cardiovascular: Negative for chest pain, palpitations, and edema, Respiratory: Negative for shortness of breath, cough, wheezing, and pleuritic chest pain, Abdomen/GI: Negative for abdominal pain, nausea, vomiting, diarrhea, and constipation, Back: Negative for injury and pain, : Negative for injury, bleeding, discharge, and swelling - he has continued to have decreased or poor urination MS/Extremity: Negative for injury and deformity, Skin: Negative for injury, rash, and discoloration, Neuro: Negative for headache, weakness, numbness, tingling, and seizure activity. Psych: Negative for depression, anxiety, suicide ideation, homicidal ideation, and hallucinations, Allergy/Immunology: Negative for hives, rash, and allergies, Endocrine: Negative for neck swelling, polydipsia, polyuria, polyphagia, and marked weight changes, Hematologic/Lymphatic: Negative for swollen nodes, abnormal bleeding, and unusual bruising. Exam: 18:15 Constitutional: This is a well developed, well nourished patient who is awake, alert, kdr and in no acute distress. Head/Face: Normocephalic, atraumatic. Eyes: Pupils equal round and reactive to light, extra-ocular motions intact. Lids and lashes normal. Conjunctiva and sclera are non-icteric and not injected. Cornea within normal limits. Periorbital areas with no swelling, redness, or edema. Neck: Trachea midline, no thyromegaly or masses palpated, and no cervical lymphadenopathy. Supple, full range of motion without nuchal rigidity, or vertebral point tenderness. No Meningismus. Chest/axilla: Normal chest wall appearance and motion. Nontender with no deformity. No lesions are appreciated. Cardiovascular: Regular rate and rhythm with a normal S1 and S2. No gallops, murmurs, or rubs. Normal PMI, no JVD. No pulse deficits. Respiratory: Lungs have equal breath sounds bilaterally, clear to auscultation and percussion. No rales, rhonchi or wheezes noted. No increased work of breathing, no retractions or nasal flaring. Abdomen/GI: Soft, non-tender, with normal bowel sounds. No distension or tympany. No guarding or rebound. No evidence of tenderness throughout. Back: No spinal tenderness. No costovertebral tenderness. Full range of motion. Skin: Warm, dry with normal turgor. Normal color with no rashes, no lesions, and no evidence of cellulitis. MS/ Extremity: Pulses equal, no cyanosis. Neurovascular intact. Full, normal range of motion. Neuro: Awake and alert, GCS 15, oriented to person, place, time, and situation. Cranial nerves II-XII grossly intact. Motor strength 5/5 in all extremities. Sensory grossly intact. Cerebellar exam normal. Normal gait. Psych: Awake, alert, with orientation to person, place and time. Behavior, mood, and affect are within normal limits. Vital Signs: 17:56 BP 99 / 63; Pulse 68; Resp 16; Temp 98.6(TE); Pulse Ox 97% on R/A; Weight 72.57 kg; hj Height 5 ft. 8 in. (172.72 cm); Pain 0/10; 18:06 BP 121 / 76; Pulse 65; Resp 18; Pulse Ox 98% on R/A; hj 18:30 BP 115 / 72; Pulse 60; Resp 15; Pulse Ox 95% ; sv 19:40 BP 121 / 72; Pulse 66; Resp 16 S; Pulse Ox 97% on R/A; bb 17:56 Body Mass Index 24.33 (72.57 kg, 172.72 cm) hj MDM: 18:15 Data reviewed: vital signs, nurses notes, lab test result(s). kdr 19:02 Patient medically screened. [facility] 04/07 18:14 Order name: CBC with Diff; Complete Time: 19:00 [facility] 04/07 18:14 Order name: Chem 7; Complete Time: 19:00 kdr 04/07 18:15 Order name: IV Start; Complete Time: 18:28 tw2 04/07 19:35 Order name: Social Service Consult EDMS Administered Medications: 18:28 Drug: NS 0.9% 500 ml Route: IV; Rate: bolus; Site: right antecubital; tw2 19:30 Follow up: IV Status: Completed infusion; IV Intake: 500ml bb Disposition: 04/07/19 19:02 Hospitalization ordered by Manpreet Jones for Inpatient Admission. Preliminary diagnosis is Acute on chronic renal failure. - Bed requested for Telemetry/MedSurg (Inpatient). - Status is Inpatient Admission. bb - Condition is Fair. - Problem is an acute exacerbation. - Symptoms are unchanged. UTI on Admission? No Signatures: Dispatcher [employer] EDMS Gm Rush MD MD [facility] Jeane Marroquin, RN RN bb Manuelito Ashley, RN RN Patt Gibbons, RN RN Mery Lion RN RN tw2 Corrections: (The following items were deleted from the chart) 19:36 19:02 Hospitalization Ordered by Manpreet Jones DO for Inpatient Admission. Preliminary cg diagnosis is Acute on chronic renal failure. Bed requested for Telemetry/MedSurg (Inpatient). Status is Inpatient Admission. Condition is Fair. Problem is an acute exacerbation. Symptoms are unchanged. UTI on Admission? No. kdr 20:14 19:36 04/07/2019 19:02 Hospitalization Ordered by Manpreet Jones DO for Inpatient bb Admission. Preliminary diagnosis is Acute on chronic renal failure. Bed requested for Telemetry/MedSurg (Inpatient). Status is Inpatient Admission. Condition is Fair. Problem is an acute exacerbation. Symptoms are unchanged. UTI on Admission? No. cg
--- NOTE | 2019-04-07 19:32 | P.HP ---
Certification for Inpatient Patient admitted to: Inpatient With expected LOS: >2 Midnights Patient will require the following post-hospital care: Other Practitioner: I am a practitioner with admitting privileges, knowledge of patient current condition, hospital course, and medical plan of care. Services: Services provided to patient in accordance with Admission requirements found in Title 42 Section 412.3 of the Code of Federal Regulations Patient History Date of Service: 04/07/19 Primary Care Provider: Dr. Baum; Nephrology-Dr. Louie Reason for admission: Weakness, nausea, poor urinary output History of Present Illness: 64-year-old male presented to the emergency room with multiple complaints including weakness, poor urinary output, nausea and vomiting over the past week. Patient has underlying chronic renal disease stage 4, tobacco abuse, hypertension, hyperlipidemia, and bipolar disorder. Patient is being followed by nephrology. Over the last week, Symptoms have been getting worse. He has been only able to produce about 1 cup of urine per day. Urine is concentrated. Increased nausea and vomiting noted. Increase weakness noted. He was to follow up with nephrology but he was not able to get an appointment soon. There has been some discussion about the possibility of starting chronic dialysis. In the ER patient evaluated. White count 6.9, hemoglobin 13.5, platelet count within normal range. Sodium 141, potassium 3.6, BUN of 53, creatinine 4.85 with a GFR of 12. Glucose 85. Lab previously reviewed showed GFR around 22 about 1 month ago. Patient was admitted for worsening renal failure. When I saw the patient the ER, he appeared stable. Patient without any significant distress at this time. Allergies promethazine HCl [From Phenergan] Allergy (Severe, Verified 03/24/19 20:22) Shortness of breath chlorpromazine HCl [From Thorazine] Allergy (Intermediate, Verified 03/24/19 20: 22) Hives/Rash, Nausea Home medications list reviewed: Yes Home Medications: Aspirin Chewable [Aspirin Chewable*] 81 mg PO DAILY 03/24/19 Calcitrol [Rocaltrol*] 0.25 mg PO DAILY 03/24/19 Divalproex Sodium 1,000 mg PO BEDTIME 03/24/19 Divalproex Sodium 250 mg PO BEDTIME 03/24/19 Metoprolol Tartrate 75 mg PO BID 03/24/19 Mirtazapine 30 mg PO BEDTIME 03/24/19 Sertraline [Zoloft*] 100 mg PO DAILY 03/24/19 Simvastatin 40 mg PO BEDTIME 03/24/19 Lactobacillus Acidophilus [Acidophilus Probiotic] 0.5 mg PO BID #60 tablet 03/26 - Past Medical/Surgical History Diabetic: No -: Obstructive sleep apnea -: Chronic renal disease, stage IV -: CAD with prior CABG x3 vessel -: Bipolar disorder -: Chronic pain -: Hypertension -: Hyperlipidemia -: Insomnia -: History of dvt right calf (knee fracture) -: Colon polyps -: GERD with ulcers -: Tobacco abuse -: CABG x3 vessel -: cholecystectomy Psychosocial/ Personal History: Patient is - Family History Mother -: Heart disease Notes: polycythemia, [place] Father -: Other (see notes) Notes: pancreatic cancer - Social History Smoking Status: Light Tobacco smoker (1-9 cigarettes/day) Counseled patient to stop smoking for: less than 10 minutes Smoking therapy provided: Yes Patient receptive to therapy: Yes Alcohol use: No CD- Drugs: No Caffeine use: Yes Place of Residence: Home Review of Systems General: Weakness, Malaise, As per HPI Eyes: Unremarkable ENT: Unremarkable Respiratory: Unremarkable Cardiovascular: Unremarkable Gastrointestinal: Nausea, Vomiting, As per HPI Genitourinary: As per HPI Musculoskeletal: Unremarkable Integumentary: Unremarkable Neurological: Unremarkable Lymphatics: Unremarkable Physical Examination - Physical Exam General: Alert, In no apparent distress, Oriented x3, Cooperative HEENT: Atraumatic, Normocephalic, PERRLA, Other (Dry mucous membranes) Neck: Supple, No Thyromegaly Respiratory: Clear to auscultation bilaterally, Normal air movement Cardiovascular: Normal pulses, Regular rate/rhythm Gastrointestinal: Normal bowel sounds, Soft and benign, Non-distended, No tenderness, No masses, No rebound, No guarding Musculoskeletal: No erythema, No tenderness, No warmth Integumentary: No tenderness/swelling, No erythema, No warmth, No cyanosis Neurological: Normal speech, Normal strength at 5/5 x4 extr, Normal tone, Normal affect - Studies Laboratory Data (last 24 hrs) 04/07/19 18:25: Sodium 141, Potassium 3.6, BUN 53 H, Creatinine 4.85 H, Glucose 85 04/07/19 18:25: WBC 6.9, Hgb 13.5 L, Hct 40.9, Plt Count 156 Assessment and Plan - Plan Impression: Fatigue, nausea, vomiting, poor urinary output secondary to worsening Acute on chronic renal failure now stage 5 Hypertension Hyperlipidemia Bipolar disorder Tobacco abuse Plan: Fatigue, nausea, vomiting, poor urinary output secondary to worsening Acute on chronic renal failure now stage 5: If patient will be admitted for further evaluation and treatment. Will start IV fluids. Will consult Nephrology to further assess and evaluate. It appears that his renal function has worsened. Patient may require initiation of chronic dialysis. Will continue to monitor closely. Monitor input and output. Recheck lab to determine if patient will require chronic dialysis. Will start DVT prophylaxis-Lovenox. Continue with home medication Calcitrol 0.25 mcg daily. Case discussed with nephrology. Await further recommendation by nephrology tomorrow. Hypertension: Continue with home medication metoprolol 75 mg 1 pill twice daily. Will monitor and adjust accordingly. Hyperlipidemia: Continue with home medication Zocor 40 mg daily. Bipolar disorder: Continue with home medications Zoloft 100 mg daily, Depakote 1250 mg at bedtime, and mirtazapine 30 mg at bedtime. Tobacco abuse: Lifestyle modification education addressed. See cessation addressed in detail. Discharge Plan: Home Plan to discharge in: Greater than 2 days - Advance Directives Does patient have a Living Will: No Does patient have a Durable POA for Healthcare: No - Code Status/Comfort Care Code Status Assessed: Yes (Patient is full code) Time Spent Managing Pts Care (In Minutes): 55
[2019-04-07] MEDS ORDERED: POTASSIUM CL SA 10 MEQ TAB PO ONE ×2 (20:38→21:46)
[2019-04-07] MEDS ORDERED: ACETAMINOPHEN 500 MG TAB PO PRN (20:47)
[2019-04-07] MEDS ORDERED: ONDANSETRON 4 MG/2 ML VIAL IV PRN (20:47)
[2019-04-07] MEDS ORDERED: DIVALPROEX DR 500MG TAB PO SCH (21:00)
[2019-04-07] MEDS: ATORVASTATIN 20 MG TAB PO SCH (21:34)
[2019-04-07] MEDS: D5 0.9 NS 1,000 ML IV SCH (21:34)
[2019-04-07] MEDS: DIVALPROEX DR 500MG TAB PO SCH (21:35)
[2019-04-07] MEDS: MIRTAZAPINE 15 MG TAB PO SCH (21:35)
[2019-04-07] MEDS: DIVALPROEX DR 250 MG TAB PO SCH (21:35)
[2019-04-07] MEDS: SERTRALINE HCL 100 MG TAB PO SCH (21:35)
[2019-04-07 22:07] LABS: Urine Appearance CLEAR; Urine Bilirubin NEGATIVE (NEG); Urine Blood NEGATIVE (NEG); Urine Color YELLOW; Urine Glucose NEGATIVE (NEG); Urine Microscopic Reflex NO UMIC; Urine Protein NEGATIVE (NEG); Urine Specific Gravity <=1.005 (1.005-1.030); Urine Urobilinogen 0.2 mg/dL (0.2-1.0); Urine pH 5.5 (5.0-7.0)
[2019-04-08] MEDS: METOPROLOL TAR 25 MG TAB PO SCH ×2 (05:08→17:08)
[2019-04-08 06:33] LABS: Magnesium 2.3 mg/dL (1.8-2.4); Potassium 3.8 mmol/L (3.5-5.1)
[2019-04-08 06:37] LABS: Absolute Lymphocytes (CBC) 3.1 K/uL (0.7-4.9); Basophils % 0.6 % (0-1.3); Hematocrit 39.2 % (39.6-49.0); Lymphocytes % 49.2 % (15.3-44.8); MPV 8.7 fL (7.6-11.3); RBC Red Blood Cell Count 3.73 M/uL (4.33-5.43)
[2019-04-08 07:46] LABS: Anisocytosis SLIGHT; Blood Morphology Comment NOTED (NOT SEEN); Macrocytosis SLIGHT; Platelet Estimate ADEQ
[2019-04-08] MEDS: ASPIRIN EC 81 MG TAB PO SCH (08:22)
[2019-04-08] MEDS: HEPARIN 5000 UNIT/ML 1 ML VIAL SQ SCH ×2 (08:22→20:03)
[2019-04-08] MEDS: CALCITROL 0.25 MCG CAP PO SCH (08:22)
[2019-04-08] MEDS ORDERED: POTASSIUM CL SA 10 MEQ TAB PO ONE (09:00)
[2019-04-08] MEDS ORDERED: ENOXAPARIN 40 MG/0.4 ML SQ SCH (09:00)
--- NOTE | 2019-04-08 09:21 | RAD REPORT ---
EXAM DESCRIPTION: Jasiel Varela (2 Views)04/08/2019 7:41 am CLINICAL HISTORY: Shortness of breath COMPARISON: March 24, 2019 FINDINGS: The lungs appear clear of acute infiltrate. The heart is normal size Postsurgical changes involve the chest. IMPRESSION: No acute abnormalities displayed
--- NOTE | 2019-04-08 13:56 | P.CNS ---
Date of Consult: 04/08/19 Reason for Consult: ROSS Primary Care Provider: Dr. Baum; Nephrology-Dr. Louie Chief Complaint: Weakness, nausea, poor urinary output History of Present Illness: A 64 Y/o man with PMHx of CKD IV, GERD with ulcers, colon polyps, hyperlipidemia, hypertension, bipolar disorder, and CAD S/P CABG. Pt presented with weakness and decreased UO pt was admitted recently for ROSS , cr improved on IVF pt stated he was feeling weak, had nausea and vomiting and noticed decreased in his UO in Er Cr 4.8 pt denied NSAID or contrast exposure no chest pain, palpitation, nausea or vomiting Allergies promethazine HCl [From Phenergan] Allergy (Severe, Verified 04/07/19 20:39) Nausea/Vomiting chlorpromazine HCl [From Thorazine] Allergy (Intermediate, Verified 04/07/19 20: 39) Anaphylaxis Home Medications: Aspirin Chewable [Aspirin Chewable*] 81 mg PO DAILY 03/24/19 Calcitrol [Rocaltrol*] 0.25 mg PO DAILY 03/24/19 Divalproex Sodium 1,000 mg PO BEDTIME 03/24/19 Divalproex Sodium 250 mg PO BEDTIME 03/24/19 Metoprolol Tartrate 75 mg PO BID 03/24/19 Mirtazapine 30 mg PO DAILY 03/24/19 Sertraline [Zoloft*] 100 mg PO DAILY 03/24/19 Simvastatin 40 mg PO BEDTIME 03/24/19 - Past Medical/Surgical History Diabetic: No -: Obstructive sleep apnea -: Chronic renal disease, stage IV -: CAD with prior CABG x3 vessel -: Bipolar disorder -: Chronic pain -: Hypertension -: Hyperlipidemia -: Insomnia -: History of dvt right calf (knee fracture) -: Colon polyps -: GERD with ulcers -: Tobacco abuse -: CABG x3 vessel -: cholecystectomy -: triple bypass -: knee surgery Psychosocial/ Personal History: Patient is - Family History Mother Medical History: Heart disease Notes: polycythemia, [place] Father Medical History: Other (see notes) Notes: pancreatic cancer - Social History Smoking Status: Current every day smoker Alcohol use: Yes CD- Drugs: No Caffeine use: Yes Place of Residence: Home Physical Examination Temp Pulse Resp BP Pulse Ox 97.1 F 63 16 112/60 97 04/08/19 11:26 04/08/19 11:26 04/08/19 11:26 04/08/19 11:26 04/08/19 11:26 General: In no apparent distress, Oriented x3 HEENT: Atraumatic Neck: Supple, Without JVD or thyroid abnormality Respiratory: Clear to auscultation bilaterally, Normal air movement Cardiovascular: No edema, Normal pulses, Normal S1 S2, No gallops, No murmurs Gastrointestinal: Normal bowel sounds, Soft and benign Laboratory Data (last 24 hrs) 04/07/19 18:25: Sodium 141, Potassium 3.6, BUN 53 H, Creatinine 4.85 H, Glucose 85 04/07/19 18:25: WBC 6.9, Hgb 13.5 L, Hct 40.9, Plt Count 156 - Problems (1) ROSS (acute kidney injury) Current Visit: No Status: Acute Conclusions/Impression: ROSS on CKD Due to prerenal azotemia Cr baseline ~2.8 will order US cont IVF HTN controlled CAD stable Bipolar disorder Cont home meds
[2019-04-08] MEDS: D5 0.9 NS 1,000 ML IV SCH (17:08)
--- NOTE | 2019-04-08 17:44 | RAD REPORT ---
EXAM DESCRIPTION: US - Renal Ultrasound-Complete - 04/08/2019 5:02 pm CLINICAL HISTORY: Chronic renal disease COMPARISON: March 25 FINDINGS: The right kidney measures 10.0 x 6.5 x 4.1 cm. The left kidney measures 10.0 x 5.4 x 3.8 cm.. No clear change from March 25 imaging. Any differential in size due to differences in positioning and technique. No hydronephrosis or suspicious renal mass. Prominent cortical echogenicity is seen i ndicating chronic underlying medical renal disease. Pattern is similar to comparison. Benign-appearin g left renal cysts are present without change from comparison. No bladder wall thickening or mass. No intraluminal stone or mass. IMPRESSION: Prominent underlying medical renal disease matching the March 25 study. No hydronephrosis or other suspicious finding. No other significant findings.
--- NOTE | 2019-04-08 18:01 | P.PN ---
Subjective Date of Service: 04/08/19 Primary Care Provider: Dr. Baum; Nephrology-Dr. Louie Chief Complaint: Weakness, nausea, poor urinary output Subjective: Improving Patient seen and examined at bedside. No family at bedside. Chart reviewed and case discussed with nursing staff. No complaints this morning. Patient states he is doing better. Nausea resolves. Review of Systems 10-point ROS is otherwise unremarkable Physical Examination - Vital Signs Temperature: 97 F Blood Pressure: 140/77 Pulse: 65 Respirations: 12 Pulse Ox (%): 97 - Physical Exam General: Alert, In no apparent distress HEENT: Atraumatic, PERRLA, EOMI Neck: Supple, JVD not distended Respiratory: Clear to auscultation bilaterally, Normal air movement Cardiovascular: Regular rate/rhythm, Normal S1 S2 Gastrointestinal: Normal bowel sounds, No tenderness Musculoskeletal: No tenderness Integumentary: No rashes Neurological: Normal speech, Normal tone, Normal affect Lymphatics: No axilla or inguinal lymphadenopathy - Studies Laboratory Data (last 24 hrs) 04/07/19 18:25: Sodium 141, Potassium 3.6, BUN 53 H, Creatinine 4.85 H, Glucose 85 04/07/19 18:25: WBC 6.9, Hgb 13.5 L, Hct 40.9, Plt Count 156 Assessment And Plan - Current Problems (Diagnosis) (1) ROSS (acute kidney injury) Current Visit: No Status: Acute Plan: Secondary to pre renal - nephrology consulted, recommendations appreciated - renal ultrasound with underlying renal disease. No acute abnormalities noted - continue IV fluids, continue to monitor labs. If worsening kidney function, will discuss with nephrology regarding dialysis. As of now, continue to monitor labs, input and output. (2) Chronic kidney disease Onset Date: 05/03/18 Current Visit: No Status: Chronic Plan: Continue to monitor renal function. Will wait for recommendations from nephrology in regards to further management Qualifiers: Chronic kidney disease stage: stage 4 (severe) Qualified Code(s): N18.4 - Chronic kidney disease, stage 4 (severe) (3) Hypertension Current Visit: No Status: Chronic Plan: Stable -continue with home medication of metoprolol 75 mg b.i.d.. -Continue to monitor blood pressure and adjust medications accordingly Qualifiers: Hypertension type: essential hypertension Qualified Code(s): I10 - Essential (primary) hypertension (4) Hyperlipidemia Current Visit: Yes Status: Acute (5) Nicotine dependence Current Visit: No Status: Chronic Qualifiers: Nicotine product type: cigarettes (6) Bipolar disorder Onset Date: 02/23/18 Current Visit: No Status: Chronic Plan: Continue home medications Qualifiers: Active/Remission status: remission status unspecified Qualified Code(s): F31.9 - Bipolar disorder, unspecified (7) CAD (coronary artery disease) Onset Date: 02/23/18 Current Visit: No Status: Chronic Qualifiers: Coronary Disease-Associated Artery/Lesion type: [place] artery [place] vs. transplanted heart: [place] heart - Plan DVT prophylaxis: Lovenox GI prophylaxis: None Diet: Renal Disposition: Pending symptomatic improvement and nephrology evaluation/workup.
[2019-04-08] MEDS: DIVALPROEX DR 250 MG TAB PO SCH (20:02)
[2019-04-08] MEDS: DIVALPROEX DR 500MG TAB PO SCH (20:02)
[2019-04-08] MEDS: SERTRALINE HCL 100 MG TAB PO SCH (20:03)
[2019-04-08] MEDS: MIRTAZAPINE 15 MG TAB PO SCH (20:03)
[2019-04-08] MEDS: ATORVASTATIN 20 MG TAB PO SCH (20:03)
[2019-04-08] MEDS ORDERED: DIVALPROEX DR 250 MG TAB PO SCH (21:00)
[2019-04-08] MEDS ORDERED: DIVALPROEX DR 500MG TAB PO SCH (21:00)
[2019-04-09] MEDS: METOPROLOL TAR 25 MG TAB PO SCH ×2 (05:13→17:30)
[2019-04-09 06:18] LABS: Absolute Lymphocytes (CBC) 2.5 K/uL (0.7-4.9); Basophils % 0.4 % (0-1.3); Hematocrit 42.3 % (39.6-49.0); Lymphocytes % 41.6 % (15.3-44.8); MPV 8.6 fL (7.6-11.3); RBC Red Blood Cell Count 4.05 M/uL (4.33-5.43)
[2019-04-09 06:26] LABS: Magnesium 2.2 mg/dL (1.8-2.4); Potassium 4.2 mmol/L (3.5-5.1)
[2019-04-09] MEDS: ASPIRIN EC 81 MG TAB PO SCH (09:59)
[2019-04-09] MEDS: HEPARIN 5000 UNIT/ML 1 ML VIAL SQ SCH ×2 (09:59→20:04)
[2019-04-09] MEDS: CALCITROL 0.25 MCG CAP PO SCH (09:59)
--- NOTE | 2019-04-09 12:16 | P.PN ---
Subjective Date of Service: 04/09/19 (Hospitalist) Primary Care Provider: Dr. Baum; Nephrology-Dr. Louie Chief Complaint: Renal failure Subjective: Improving (Patient is improving admitted with acute on chronic renal failure his appetite is coming back on IV fluids) Review of Systems Unremarkable General: Weakness Physical Examination - Vital Signs Temperature: 97.1 F Blood Pressure: 152/85 Pulse: 65 Respirations: 15 Pulse Ox (%): 96 - Physical Exam General: Alert, In no apparent distress, Oriented x3 Neck: Supple Respiratory: Clear to auscultation bilaterally Cardiovascular: No edema, Regular rate/rhythm Assessment & Plan - Problems (Diagnosis) (1) Renal failure (ARF), acute on chronic Current Visit: Yes Status: Acute Plan: Patient is 64 years of age admitted with acute on chronic renal failure renal function has improved patient is feeling better patient is hypernatremic continue with IV fluids possible discharge tomorrow urinalysis was negative (2) ROSS (acute kidney injury) Current Visit: No Status: Acute
[2019-04-09] MEDS: D5 0.9 NS 1,000 ML IV SCH (17:31)
[2019-04-09] MEDS: DIVALPROEX DR 250 MG TAB PO SCH (20:04)
[2019-04-09] MEDS: ATORVASTATIN 20 MG TAB PO SCH (20:04)
[2019-04-09] MEDS: SERTRALINE HCL 100 MG TAB PO SCH (20:04)
[2019-04-09] MEDS: MIRTAZAPINE 15 MG TAB PO SCH (20:04)
[2019-04-09] MEDS: DIVALPROEX DR 500MG TAB PO SCH (20:04)
--- NOTE | 2019-04-10 04:32 | PN ---
Date of Progress Note: 04/09/2019 Chief Complaint: Chronic kidney disease. History Of Present Illness: Patient presented to the hospital because of generalized weakness. He h as history of chronic kidney disease, stage 4; hyperlipidemia; hypertension; coronary artery disease, status post CABG; GERD with history of peptic ulcer disease; colon polyps. Patient presented to the hospital because of weakness and decreased urine output. He was admitted recently for acute kidney injury and improved with IV fluids. Patient stated that he was feeling weak. Had nausea, vomiting, and decreased urine output. He had evaluation done in the emergency room, creatinine was 4.8. Patie nt denies nonsteroidal anti-inflammatory medication. Review of Systems: Denies fever, chills. Denies nausea, vomiting. Today, patient is feeling better. Physical Examination: Lungs: Clear to auscultation bilaterally. Heart: S1, S2. Abdomen: Soft, benign. Extremities: No edema. Impression And Plan: 1.Acute kidney injury. Renal function somewhat improved with IV fluids. Creatinine level is improv ing from 4.85 to 3.52, BUN is 41. On arrival to the hospital, BUN was 53. We will continue adequate hydration. Renal ultrasound was done and did not show hydronephrosis. 2.Hypertension. Continue blood pressure medication. 3.Renal osteodystrophy. Continue calcitriol. 4.Deconditioning, weakness. Advance physical therapy as tolerated. EB/MODL Voice ID: [id number] Report ID: [id number]
[2019-04-10 06:22] LABS: Basophils % 0.4 % (0-1.3); Hematocrit 41.7 % (39.6-49.0); Lymphocytes % 45.8 % (15.3-44.8); MPV 8.3 fL (7.6-11.3); RBC Red Blood Cell Count 3.93 M/uL (4.33-5.43)
[2019-04-10 06:34] VITALS: BMI 24.2
[2019-04-10 06:38] LABS: Magnesium 2.1 mg/dL (1.8-2.4); Potassium 4.1 mmol/L (3.5-5.1)
[2019-04-10] MEDS: CALCITROL 0.25 MCG CAP PO SCH (08:12)
[2019-04-10] MEDS: HEPARIN 5000 UNIT/ML 1 ML VIAL SQ SCH (08:12)
[2019-04-10] MEDS: ASPIRIN EC 81 MG TAB PO SCH (08:12)
[2019-04-10 08:21] VITALS: O2SAT 97
[2019-04-10] MEDS: D5 0.9 NS 1,000 ML IV SCH (08:47)
[2019-04-10 12:59] VITALS: BP 127/75; TEMP 96.9
--- NOTE | 2019-04-10 15:50 | P.DS ---
Admission Date: 04/07/19 Discharge Date: 04/10/19 Primary Care Provider: Dr. Baum; Nephrology-Dr. Louie Disposition: ROUTINE DISCHARGE Discharge Condition: FAIR Reason for Admission: Renal failure - Problems (1) Renal failure (ARF), acute on chronic Current Visit: Yes Status: Acute Qualifiers: Acute renal failure type: unspecified Chronic kidney disease stage: stage 3 (moderate) Qualified Code(s): N17.9 - Acute kidney failure, unspecified; N18.3 - Chronic kidney disease, stage 3 (moderate) (2) ROSS (acute kidney injury) Current Visit: No Status: Acute Brief History of Present Illness: AW nausea and dehydration with worsening renal function Hospital Course: PT seen by nephrology Did well with IV fluids. No cinical evidence of sepsis. At the time of discharge pt was doign well. Alert oriented and wanted to go home VS stable. Chest clear. Breath sounds normal. Abdomen soft. Labs rev, Renal funciton improved. No newmeds. To f/u with Dr. Tariq. UA neg. Vital Signs/Physical Exam: Temp Pulse Resp BP Pulse Ox 96.9 F 56 18 127/75 95 04/10/19 12:00 04/10/19 12:00 04/10/19 12:00 04/10/19 12:00 04/10/19 12:00 Laboratory Data at Discharge: WBC 6.5 K/uL (4.3-10.9) 04/10/19 06:08 Hgb 13.5 g/dL (13.6-17.9) L 04/10/19 06:08 Hct 41.7 % (39.6-49.0) 04/10/19 06:08 Plt Count 138 K/uL (152-406) L 04/10/19 06:08 Sodium 148 mmol/L (136-145) H 04/10/19 06:08 Potassium 4.1 mmol/L (3.5-5.1) 04/10/19 06:08 BUN 34 mg/dL (7-18) H 04/10/19 06:08 Creatinine 3.12 mg/dL (0.55-1.3) H 04/10/19 06:08 Glucose 80 mg/dL (74-106) 04/10/19 06:08 Magnesium 2.1 mg/dL (1.8-2.4) 04/10/19 06:08 Home Medications: Aspirin Chewable [Aspirin Chewable*] 81 mg PO DAILY 03/24/19 Calcitrol [Rocaltrol*] 0.25 mg PO DAILY 03/24/19 Divalproex Sodium 1,000 mg PO BEDTIME 03/24/19 Divalproex Sodium 250 mg PO BEDTIME 03/24/19 Metoprolol Tartrate 75 mg PO BID 03/24/19 Mirtazapine 30 mg PO DAILY 03/24/19 Sertraline [Zoloft*] 100 mg PO DAILY 03/24/19 Simvastatin 40 mg PO BEDTIME 03/24/19 Followup: Vicky Younger MD [COURTESY - CAN ADMIT] - 04/11/19 (capt[employer] canner[employer] tender/kidney doctor- Follow up in office on Thursday, call to schedule an appointment ) Jose Manuel Baum, [Primary Care Provider] - 1 Week (Primary care physician- Call to schedule an appointment)
--- NOTE | 2019-04-11 02:55 | PN ---
Date of Progress Note: 04/10/2019 Chief Complaint: Chronic kidney disease, accelerated by acute kidney injury. History Of Present Illness: Patient presented to the hospital because of generalized weakness. He h as history of chronic kidney disease stage 3, advancing to stage IV, complicated by hypertension, hyp ertensive heart and kidney disease, coronary artery disease, GERD with history of peptic ulcer diseas e, colon polyps. Patient presented to the hospital because of weakness, decreased urine output. He was admitted recently for acute kidney injury. His renal function has improved with IV fluids. Solange ent was complaining of generalized weakness, although he denies nausea, vomiting, and diarrhea. Solange ent denies nonsteroidal anti-inflammatory medication treatment and on arrival to the hospital, blood work was obtained. Creatinine was 4.8. Renal function has been gradually improving over last 48 elyse rs. Review of Systems: Denies fever or chills. Physical Examination: Lungs: Clear to auscultation bilaterally. Heart: S1, S2. Abdomen: Soft, benign. Extremities: No edema. Impression And Plan: 1.Acute kidney injury, gradually improving. Creatinine level is close to baseline. Patient will co ntinue adequate p.o. fluid intake. 2.Hypertension. Continue blood pressure medication. 3.Renal osteodystrophy. Continue calcitriol. 4.Deconditioning. Continue rehab. 5.Acute kidney injury secondary to prerenal azotemia, nonoliguric acute tubular necrosis. There is no evidence of obstructive uropathy. Continue IV fluids. Renal function responded to hydration. TREE/MODYaz Voice ID: [id number] Report ID: [id number]
== END 2019-04-10 15:50 | disposition home or self-care (01) | DRG 682 ==
LOC: ER 17:45 → ERHOLD 19:38 → 4TH 20:43
PROVIDERS: ADMIT Family Medicine; ATTEND Family Medicine
DX: I12.9 Hypertensive chronic kidney disease with stage 1 through stage 4 chronic kidney disease, or unspecified chronic kidney disease (principal); N17.0 Acute kidney failure with tubular necrosis; N18.4 Chronic kidney disease, stage 4 (severe); N25.0 Renal osteodystrophy; E78.5 Hyperlipidemia, unspecified; K21.9 Gastro-esophageal reflux disease without esophagitis; I25.10 Atherosclerotic heart disease of native coronary artery without angina pectoris; F31.9 Bipolar disorder, unspecified; Z86.718 Personal history of other venous thrombosis and embolism; F17.210 Nicotine dependence, cigarettes, uncomplicated; Z95.1 Presence of aortocoronary bypass graft; Z79.82 Long term (current) use of aspirin
CPT/HCPCS: 36415; 71046; 76770; 80048; 81003; 82040; 82043; 82306; 82570; 83735; 83970; 84100; 84156; 84550; 85025; 86317; 96360; 97112; 97116; 97161; 99285; J1644

== ENCOUNTER 2019-05-19 14:50 | Emergency (ER) | payer OTHER ==
--- OUTSIDE RECORDS SUMMARY | 2019-05-19 14:53 | XMS REPORT ---
[...] Status Dosage System Date Date Neurontin ND 52194053229 300 MG Orally Active 1 capsule Twice a day before bedtime Aspirin [facility] 97182520495 325 MG Orally Active 1 tablet Once a day Metoprolol [facility] 81606409383 50 PO BID Active TAKE ONE Tartrate TABLET BY MOUTH TWICE A DAY. TAKE WITH METOPROLOL 25MG TO EQUAL TOTAL DOSE OF 75MG TWICE DAILY Gabapentin ND 64798679920 300 MG Orally Active 1 capsule Twice a day Depakote ER [facility] 12572339592 500 MG Orally Active not defined Remeron [facility] 24945752340 30 MG Orally Active 1 tablet at Once a day bedtime Amlodipine [facility] 83164034796 10 MG Orally Active 1 tablet Besylate Once a day Metoprolol [facility] 15454767244 25 PO BID Active TAKE ONE Tartrate TABLET BY MOUTH TWICE A DAY. TAKE WITH METOPROLOL 50MG TO TOTAL DOSE OF 75MG Colace [facility] 72619775772 100 MG Orally Active 1 capsule as Once a day needed Zoloft [facility] 45374749359 100 MG Orally Active 1 tablet Once a day Simvastatin [facility] 90276340644 40 MG Orally Active 1 tablet in Once a day the evening Results No Known Results Summary Purpose eClinicalWorks Submission
--- OUTSIDE RECORDS SUMMARY | 2019-05-19 14:53 | XMS REPORT ---
[...] Date Colace [facility] 36839296685 100 MG Orally Active 1 capsule as Once a day needed Gabapentin [facility] 93088125184 300 MG Orally Active 1 capsule Twice a day Metoprolol [facility] 30281691456 25 PO BID Active TAKE ONE Tartrate TABLET BY MOUTH TWICE A DAY. TAKE WITH METOPROLOL 50MG TO TOTAL DOSE OF 75MG Amlodipine [facility] 60530766693 10 MG Orally Active 1 tablet Besylate Once a day Metoprolol [facility] 31471584213 50 PO BID Active TAKE ONE Tartrate TABLET BY MOUTH TWICE A DAY. TAKE WITH METOPROLOL 25MG TO EQUAL TOTAL DOSE OF 75MG TWICE DAILY Depakote ER [facility] 58568154182 500 MG Orally Active not defined Aspirin [facility] 84384533727 325 MG Orally Active 1 tablet Once a day Simvastatin [facility] 23731708394 40 MG Orally Active 1 tablet in Once a day the evening Remeron [facility] 64010956009 30 MG Orally Active 1 tablet at Once a day bedtime Neurontin [facility] 93955143479 300 MG Orally Active 1 capsule Twice a day before bedtime Zoloft [facility] 69045453947 100 MG Orally Active 1 tablet Once a day Results No Known Results Summary Purpose eClinicalWorks Submission
--- OUTSIDE RECORDS SUMMARY | 2019-05-19 14:53 | XMS REPORT ---
[...] Medications Results No Known Results Summary Purpose [employer] Submission
--- OUTSIDE RECORDS SUMMARY | 2019-05-19 14:53 | XMS REPORT ---
[...] Status Dosage System Date Date Depakote ER [facility] 43575741683 500 MG Orally Active not defined Remeron [facility] 39797499645 30 MG Orally Active 1 tablet at Once a day bedtime Gabapentin [facility] 55057531363 300 MG Orally Active 1 capsule Twice a day Metoprolol [facility] 32446795573 25 PO BID Active TAKE ONE Tartrate TABLET BY MOUTH TWICE A DAY. TAKE WITH METOPROLOL 50MG TO TOTAL DOSE OF 75MG Colace [facility] 05555727678 100 MG Orally Active 1 capsule as Once a day needed Simvastatin ND 96815787610 40 MG Orally Active 1 tablet in Once a day the evening Neurontin ND 04242239961 300 MG Orally Active 1 capsule Twice a day before bedtime Aspirin [facility] 55289305959 325 MG Orally Active 1 tablet Once a day Metoprolol [facility] 23976636412 50 PO BID Active TAKE ONE Tartrate TABLET BY MOUTH TWICE A DAY. TAKE WITH METOPROLOL 25MG TO EQUAL TOTAL DOSE OF 75MG TWICE DAILY Zoloft [facility] 71710052779 100 MG Orally Active 1 tablet Once a day Results No Known Results Summary Purpose eClinicalWorks Submission
--- OUTSIDE RECORDS SUMMARY | 2019-05-19 14:53 | XMS REPORT ---
[...] End Status Dosage System Date Date Remeron [facility] 18844904734 30 MG Orally Active 1 tablet at Once a day bedtime Simvastatin ND 14025744140 40 MG Orally Active 1 tablet in Once a day the evening Amlodipine ND 62984653912 10 MG Orally Active 1 tablet Besylate Once a day Metoprolol [facility] 18609807660 50 PO BID Active TAKE ONE Tartrate TABLET BY MOUTH TWICE A DAY. TAKE WITH METOPROLOL 25MG TO EQUAL TOTAL DOSE OF 75MG TWICE DAILY Zocor [facility] 55698319155 40 MG Active TAKE ONE TABLET BY MOUTH DAILY Aspirin ND 34684178480 325 MG Orally Active 1 tablet Once a day Zoloft ND 03362755866 100 MG Orally Active 1 tablet Once a day Colace [facility] 44311929563 100 MG Orally Active 1 capsule as Once a day needed Metoprolol [facility] 82201025689 25 PO BID Active TAKE ONE Tartrate TABLET BY MOUTH TWICE A DAY. TAKE WITH METOPROLOL 50MG TO TOTAL DOSE OF 75MG Gabapentin [facility] 46019367179 300 MG Orally Active 1 capsule Twice a day Neurontin [facility] 05732465827 300 MG Orally Active 1 capsule Twice a day before bedtime Depakote ER [facility] 05780791494 500 MG Orally Active not defined Results No Known Results Summary Purpose eClinicalWorks Submission
--- OUTSIDE RECORDS SUMMARY | 2019-05-19 14:53 | XMS REPORT ---
[...] Status Dosage System Date Date Neurontin ND 96332838818 300 MG Orally Active 1 capsule Twice a day before bedtime Depakote ER ND 80244814059 500 MG Orally Active not defined Colace ND 72831438549 100 MG Orally Active 1 capsule as Once a day needed Simvastatin ND 32283440553 40 MG Orally Active 1 tablet in Once a day the evening Zoloft ND 31972768142 100 MG Orally Active 1 tablet Once a day Remeron [facility] 45708343253 30 MG Orally Active 1 tablet at Once a day bedtime Amlodipine [facility] 91963896137 10 MG Orally Active 1 tablet Besylate Once a day Gabapentin [facility] 92715234695 300 MG Orally Active 1 capsule Twice a day Aspirin [facility] 48183017822 325 MG Orally Active 1 tablet Once a day Metoprolol [facility] 84666487523 50 PO BID Active TAKE ONE Tartrate TABLET BY MOUTH TWICE A DAY. TAKE WITH METOPROLOL 25MG TO EQUAL TOTAL DOSE OF 75MG TWICE DAILY Metoprolol [facility] 50666876540 25 PO BID Active TAKE ONE Tartrate TABLET BY MOUTH TWICE A DAY. TAKE WITH METOPROLOL 50MG TO TOTAL DOSE OF 75MG Results No Known Results Summary Purpose eClinicalWorks Submission
--- OUTSIDE RECORDS SUMMARY | 2019-05-19 14:53 | XMS REPORT ---
[...] Start End Status Dosage System Date Colace [facility] 16255477545 100 MG Orally Active 1 capsule as Once a day needed Zoloft [facility] 78969719007 100 MG Orally Active 1 tablet Once a day Aspirin ND 12357842937 81 MG Orally Active 1 tablet Once a day Neurontin [facility] 37527782530 300 MG Orally Active 1 capsule Twice a day before bedtime Remeron [facility] 52425668328 30 MG Orally Active 1 tablet at Once a day bedtime Amlodipine [facility] 13573990596 10 MG Orally Active 1 tablet Besylate Once a day Metoprolol [facility] 75175808704 25 PO BID Active TAKE ONE Tartrate TABLET BY MOUTH TWICE A DAY. TAKE WITH METOPROLOL 50MG TO TOTAL DOSE OF 75MG Simvastatin [facility] 21423931510 40 MG Orally Active 1 tablet in Once a day the evening Metoprolol [facility] 39793639826 50 PO BID Active TAKE ONE Tartrate TABLET BY MOUTH TWICE A DAY. TAKE WITH METOPROLOL 25MG TO EQUAL TOTAL DOSE OF 75MG TWICE DAILY Depakote ER [facility] 36505009381 500 MG Orally Active not defined Results No Known Results Summary Purpose eClinicalWorks Submission
--- OUTSIDE RECORDS SUMMARY | 2019-05-19 14:54 | XMS REPORT ---
[...] End Status Dosage System Date Date Zoloft [facility] 96410900136 100 MG Orally Active 1 tablet Once a day Metoprolol [facility] 11264570559 25 PO BID Active TAKE ONE Tartrate TABLET BY MOUTH TWICE A DAY. TAKE WITH METOPROLOL 50MG TO TOTAL DOSE OF 75MG Simvastatin [facility] 63691126858 40 MG Orally Active 1 tablet in Once a day the evening Colace [facility] 40385967045 100 MG Orally Active 1 capsule as Once a day needed Depakote ER [facility] 20653803292 500 MG Orally Active not defined Metoprolol [facility] 83717403188 50 PO BID Active TAKE ONE Tartrate TABLET BY MOUTH TWICE A DAY. TAKE WITH METOPROLOL 25MG TO EQUAL TOTAL DOSE OF 75MG TWICE DAILY Neurontin [facility] 54734012810 300 MG Orally Inactive 1 capsule Twice a day before bedtime Aspirin [facility] 86714303801 81 MG Orally Active 1 tablet Once a day Remeron [facility] 71528286137 30 MG Orally Active 1 tablet at Once a day bedtime Results No Known Results Summary Purpose eClinicalWorks Submission
[2019-05-19] MEDS ORDERED: NA CHLORIDE 0.9% 1,000 ML ONE (15:43)
[2019-05-19 16:26] LABS: Basophils % 0.7 % (0-1.3); Hematocrit 39.8 % (39.6-49.0); Lymphocytes % 45.4 % (15.3-44.8); MPV 8.4 fL (7.6-11.3); RBC Red Blood Cell Count 3.77 M/uL (4.33-5.43)
[2019-05-19 16:41] LABS: Blood Morphology Comment NOTED (NOT SEEN); Macrocytosis 1+; Platelet Estimate ADEQ; Urine White Blood Cell Casts OK
[2019-05-19 16:54] LABS: Urine Blood NEGATIVE (NEG); Urine Glucose NEGATIVE (NEG); Urine Protein NEGATIVE (NEG)
[2019-05-19 16:57] LABS: Urine Bacteria <20 /HPF (NONE SEEN); Urine Culture Reflex Order NOT NEEDED; Urine RBC <5 /HPF (NONE SEEN)
[2019-05-19 16:57] LABS: Potassium 3.8 mmol/L (3.5-5.1)
--- NOTE | 2019-05-19 17:10 | ER ---
Nurse's Notes [facility] Name: Kavin Armijo Age: 64 yrs Sex: Male : 1955 Arrival Date: 05/19/2019 Time: 14:52 Bed 5 Private MD: Diagnosis: Dehydration;Chronic kidney disease, stage 4 (severe) Presentation: 05/19 15:07 Presenting complaint: Patient states: I went to my kidney doctor 11 days ago and my ch function was 13%. I have not seen anyone since then. Now I feel weak, dizzy, very lethargic and I just fall asleep while my is talking. my stomach hurts some and I don't feel right.. Transition of care: patient was not received from another setting of care. Onset of symptoms was May 06, 2019. Risk Assessment: Do you want to hurt yourself or someone else? Patient reports no desire to harm self or others. Initial Sepsis Screen: Does the patient meet any 2 criteria? No. Patient's initial sepsis screen is negative. Does the patient have a suspected source of infection? No. Patient's initial sepsis screen is negative. Care prior to arrival: None. 15:07 Method Of Arrival: Wheelchair 15:07 Acuity: [place]ANN[place] 3 15:[address] Louie is rad tech, with Dr. Bunn. Triage Assessment: 15:05 General: Appears in no apparent distress. comfortable, Behavior is calm, cooperative, ch appropriate for age. Historical: - Allergies: 15:05 Phenergan; ch - Home Meds: 15:05 amlodipine 10 mg tab 1 tab once daily [Active]; divalproex 250 mg Oral Tb24 once daily [Active]; gabapentin 300 mg Oral cap 1 cap two times per day [Active]; metoprolol tartrate 50 mg oral tab 1 tab 2 times per day [Active]; mirtazapine 30 mg Oral TbDL 1 tab once daily [Active]; sertraline 100 mg Oral tab 1 tab once daily [Active]; simvastatin 40 mg Oral tab 1 tab once daily [Active]; - PMHx: 15:05 anmesia; Bipolar disorder; Hypertension; Renal Disease; Sleep Apnea; stage 4 kidney ch failure; - PSHx: 15:05 Triple Bypass; Cholecystectomy; ch - Immunization history:: Adult Immunizations up to date. - Social history:: Smoking status: . - Ebola Screening: : Patient negative for fever greater than or equal to 101.5 degrees Fahrenheit, and additional compatible Ebola Virus Disease symptoms Patient denies exposure to infectious person Patient denies travel to an Ebola-affected area in the 21 days before illness onset No symptoms or risks identified at this time. - Family history:: not pertinent. - Hospitalizations: : No recent hospitalization is reported. Screenin:33 Abuse screen: Denies threats or abuse. Denies injuries from another. Nutritional sg screening: No deficits noted. Tuberculosis screening: No symptoms or risk factors identified. Never had TB. Fall Risk None identified. Assessment: 16:31 General: Appears in no apparent distress. well groomed, well developed, well nourished, sg Behavior is calm, cooperative, appropriate for age. Pain: Complains of pain in left low back and right low back Quality of pain is described as aching. Neuro: Level of Consciousness is awake, alert, obeys commands, Oriented to person, place, time, Template Inspector are equal bilaterally Moves all extremities. Full function Gait is steady, Speech is normal, Facial symmetry appears normal, Pupils are PERRLA, Intact. Cardiovascular: No deficits noted. Capillary refill is brisk in bilateral fingers Patient's skin is warm and dry. Chest pain is denied. Respiratory: Airway is patent Respiratory effort is even, unlabored, Respiratory pattern is regular, symmetrical, Denies cough, shortness of breath labored breathing. GI: Abdomen is round non-distended, Bowel sounds present X 4 quads. Reports normal bowel habits, tolerance of fluids, tolerance of food. : Reports pain in bilateral flank(s), urinary frequency. EENT: No signs and/or symptoms were reported regarding the EENT system. Derm: Skin is pink, warm \T\ dry. Musculoskeletal: Circulation, motion, and sensation intact. Range of motion: intact in all extremities. 17:15 Reassessment: pt tolerated meal, denies any symptoms of hypoglycemia at this time, sg notified, no other orders received, pt to be dispo to home. Vital Signs: 15:05 BP 122 / 75; Pulse 63; Resp 14; Temp 98.1(O); Pulse Ox 98% on R/A; Weight 72.57 kg; ch Height 5 ft. 8 in. (172.72 cm); Pain 2/10; 17:15 BP 126 / 72; Pulse 66; Resp 16; Temp 98.0; Pulse Ox 99% on R/A; Pain 0/10; sg 15:05 Body Mass Index 24.33 (72.57 kg, 172.72 cm) ED Course: 14:52 Patient arrived in ED. as 15:05 Arm band placed on left wrist. Patient placed in an exam room, on a stretcher. 15:08 Triage completed. 15:15 Patient has correct armband on for positive identification. Placed in gown. Bed in low sg position. Call light in reach. Side rails up X2. nurse monitoring on. Pulse ox on. NIBP on. 15:18 Ebenezer Bautista MD is Attending Physician. rn 15:35 EKG done, by technical specialist. reviewed by Ebenezer Bautista MD. 3 15:39 Ferny Tello RN is Primary Nurse. 16:15 Initial lab(s) drawn, by vt, sent to lab. Inserted saline lock: 22 gauge in right sg antecubital area, using aseptic technique. Blood collected. 17:00 Diet: Patient given a regular meal tray. Tolerated well. sg 17:33 IV discontinued, intact, bleeding controlled, No redness/swelling at site. Pressure sg dressing applied. 17:33 No provider procedures requiring assistance completed. sg Administered Medications: 16:25 Drug: NS 0.9% 1000 ml Route: IV; Rate: 1000 ml; Site: right antecubital; sg 17:15 Follow up: Response: No adverse reaction; IV Status: Completed infusion; IV Intake: sg 990ml Intake: 17:15 IV: 990ml; Total: 990ml. sg Outcome: 17:09 Discharge ordered by . rn 17:30 Discharged to home ambulatory, with family. sg 17:30 Condition: good 17:30 Discharge instructions given to patient, Instructed on discharge instructions, follow up and referral plans. safety practices, Demonstrated understanding of instructions, follow-up care. 17:34 Patient left the ED. Signatures: Belem Urban RN RN Ferny Tello RN RN Zaira Elizondo Roman, MD MD rn Montes, [facility]
--- NOTE | 2019-05-19 17:11 | EDPHYS ---
Physician Documentation [facility] Name: Kavin Armijo Age: 64 yrs Sex: Male : 1955 Arrival Date: 05/19/2019 Time: 14:52 Bed 5 Private MD: ED Physician Ebenezer Bautista HPI: 05/19 16:05 This 64 yrs old Male presents to ER via Wheelchair with complaints of rn generalized weakness. 16:05 Reports generalized weakness, seen dr. louie twice this week, initially told renal rn function decreased, was experiencing generalized weakness, has been dehdyrated multiple times so went home and drank a lot of water, feels a little better. Redraw of blood yesterday showed improvement back to baseline GFR of 19. NO fever/chest pain/sob/abd pain/vomiting/diarrhea. . Onset: The symptoms/episode began/occurred at an unknown time. Severity of symptoms: At their worst the symptoms were mild in the emergency department the symptoms have improved. The patient has experienced similar episodes in the past. The patient has been recently seen by a physician:. Historical: - Allergies: 15:05 Phenergan; ch - Home Meds: 15:05 amlodipine 10 mg tab 1 tab once daily [Active]; divalproex 250 mg Oral Tb24 once daily ch [Active]; gabapentin 300 mg Oral cap 1 cap two times per day [Active]; metoprolol tartrate 50 mg oral tab 1 tab 2 times per day [Active]; mirtazapine 30 mg Oral TbDL 1 tab once daily [Active]; sertraline 100 mg Oral tab 1 tab once daily [Active]; simvastatin 40 mg Oral tab 1 tab once daily [Active]; - PMHx: 15:05 anmesia; Bipolar disorder; Hypertension; Renal Disease; Sleep Apnea; stage 4 kidney ch failure; - PSHx: 15:05 Triple Bypass; Cholecystectomy; ch - Immunization history:: Adult Immunizations up to date. - Social history:: Smoking status: . - Ebola Screening: : Patient negative for fever greater than or equal to 101.5 degrees Fahrenheit, and additional compatible Ebola Virus Disease symptoms Patient denies exposure to infectious person Patient denies travel to an Ebola-affected area in the 21 days before illness onset No symptoms or risks identified at this time. - Family history:: not pertinent. - Hospitalizations: : No recent hospitalization is reported. ROS: 16:05 Constitutional: Negative for fever, chills, and weight loss, Eyes: Negative for injury, rn pain, redness, and discharge, Neck: Negative for injury, pain, and swelling, Cardiovascular: Negative for chest pain, palpitations, and edema, Respiratory: Negative for shortness of breath, cough, wheezing, and pleuritic chest pain, Abdomen/GI: Negative for abdominal pain, nausea, vomiting, diarrhea, and constipation, MS/Extremity: Negative for injury and deformity, Skin: Negative for injury, rash, and discoloration, Neuro: Negative for headache, numbness, tingling, and seizure. Exam: 16:05 Constitutional: This is a well developed, well nourished patient who is awake, alert, rn and in no acute distress. Head/Face: Normocephalic, atraumatic. Eyes: Pupils equal round and reactive to light, extra-ocular motions intact. Lids and lashes normal. Conjunctiva and sclera are non-icteric and not injected. Cornea within normal limits. Periorbital areas with no swelling, redness, or edema. ENT: MMM Cardiovascular: Regular rate and rhythm. No pulse deficits. Respiratory: Lungs have equal breath sounds bilaterally, clear to auscultation. No increased work of breathing, no retractions or nasal flaring. Abdomen/GI: soft, non-tender MS/ Extremity: Pulses equal, no cyanosis. Neurovascular intact. Full, normal range of motion. Equal circumference. Neuro: Awake and alert, GCS 15, oriented to person, place, time, and situation. Cranial nerves II-XII grossly intact. Motor strength 5/5 in all extremities. Sensory grossly intact. Vital Signs: 15:05 BP 122 / 75; Pulse 63; Resp 14; Temp 98.1(O); Pulse Ox 98% on R/A; Weight 72.57 kg; ch Height 5 ft. 8 in. (172.72 cm); Pain 2/10; 17:15 BP 126 / 72; Pulse 66; Resp 16; Temp 98.0; Pulse Ox 99% on R/A; Pain 0/10; sg 15:05 Body Mass Index 24.33 (72.57 kg, 172.72 cm) ch MDM: 15:18 Patient medically screened. rn 17:07 Differential Diagnosis dehydration, chronic renal disease. Data reviewed: vital signs, rn nurses notes, lab test result(s), and as a result, I will discharge patient. Counseling: I had a detailed discussion with the patient and/or guardian regarding: the historical points, exam findings, and any diagnostic results supporting the discharge/admit diagnosis, lab results, the need for outpatient follow up, to return to the emergency department if symptoms worsen or persist or if there are any questions or concerns that arise at home. Response to treatment: the patient's symptoms have markedly improved after treatment, the patient's condition has returned to base line, the patient is now symptom free, patient is well hydrated. and as a result, I will discharge patient. Special discussion: I discussed with the patient/guardian in detail that at this point there is no indication for admission to the hospital. It is understood, however, that if the symptoms persist or worsen the patient needs to return immediately for re-evaluation. ED course: GFR at baseline, patient feels well, given 1 Liter NS, urinating twice since arrival. Will dc home with instructions for rehydration and f/u with Dr. Louie as scheduled next week for another bloodcheck. . 05/19 15:32 Order name: CBC with Diff; Complete Time: 17:05 rn 05/19 15:32 Order name: Basic Metabolic Panel; Complete Time: 17:05 rn 05/19 15:32 Order name: Urine Microscopic Only; Complete Time: 17:05 rn 05/19 16:22 Order name: Urine Dipstick--Ancillary (enter results); Complete Time: 17:05 bd 05/19 16:36 Order name: CBC Smear Scan; Complete Time: 17:05 EDMS 05/19 15:32 Order name: IV Start; Complete Time: 15:40 rn 05/19 15:32 Order name: EKG; Complete Time: 15:33 rn 05/19 15:32 Order name: EKG - Nurse/Tech; Complete Time: 17:32 rn 05/19 15:32 Order name: Urine Dipstick-Ancillary (obtain specimen); Complete Time: 16:39 rn Administered Medications: 16:25 Drug: NS 0.9% 1000 ml Route: IV; Rate: 1000 ml; Site: right antecubital; sg 17:15 Follow up: Response: No adverse reaction; IV Status: Completed infusion; IV Intake: sg 990ml Disposition: 05/19/19 17:09 Discharged to Home. Impression: Dehydration, Chronic kidney disease, stage 4 (severe). - Condition is Stable. - Discharge Instructions: Dehydration, Adult, Chronic Kidney Disease, Adult, [id number]. - Medication Reconciliation Form, Thank You Letter, Antibiotic Education, Prescription Opioid Use form. - Follow up: Private Physician; When: As needed; Reason: Recheck today's complaints, Re-evaluation by your physician. - Problem is chronic. - Symptoms have improved. Signatures: Dispatcher [employer] EDMS Belem Urban RN RN Ferny Tello RN RN Ebenezer Bautista MD MD rn assessment: (The following items were deleted from the chart) 17:34 17:09 05/19/2019 17:09 Discharged to Home. Impression: Dehydration; Chronic kidney sg disease, stage 4 (severe). Condition is Stable. Forms are Medication Reconciliation Form, Thank You Letter, Antibiotic Education, Prescription Opioid Use. Follow up: Private Physician; When: As needed; Reason: Recheck today's complaints, Re-evaluation by your physician. Problem is chronic. Symptoms have improved. rn
[2019-05-19 18:37] VITALS: BP 126/72; TEMP 98; O2SAT 99
--- NOTE | 2019-05-20 08:25 | EKG ---
Test Date: 2019-05-19 Test Time: 15:32:07 Solar Sales Assessor: CESAR MEASUREMENT RESULTS: Intervals: Rate: 62 [place]: 140 QRSD: 86 QT: 428 QTc: 434 [place]: P: 73 [place]: 140 QRS: 66 T: 110 INTERPRETIVE STATEMENTS: Normal sinus rhythm Nonspecific ST and T wave abnormality Abnormal ECG Compared to ECG 03/24/2019 13:54:21 ST (T wave) deviation now present Electronically Signed On 05-20-19 08:24:19 CDT by Yousif Lara
== END 2019-05-19 17:34 | disposition home or self-care (01) ==
LOC: ER 14:50
DX: E86.0 Dehydration (principal); I12.9 Hypertensive chronic kidney disease with stage 1 through stage 4 chronic kidney disease, or unspecified chronic kidney disease; N18.4 Chronic kidney disease, stage 4 (severe); F31.9 Bipolar disorder, unspecified; Z88.8 Allergy status to other drugs, medicaments and biological substances; Z99.2 Dependence on renal dialysis; Z95.1 Presence of aortocoronary bypass graft
CPT/HCPCS: 93005; 85025; 80048; 36415; 96360; 99284; J7030; 81003; 81015

== ENCOUNTER 2019-06-14 18:14 | Inpatient (IN) | payer OTHER ==
[2019-06-14 19:14] LABS: Absolute Lymphocytes (CBC) 1.2 K/uL (0.7-4.9); Basophils % 0.2 % (0-1.3); Hematocrit 36.5 % (39.6-49.0); Lymphocytes % 11.4 % (15.3-44.8); MPV 9.4 fL (7.6-11.3); Protime INR 1.08; RBC Red Blood Cell Count 3.44 M/uL (4.33-5.43)
--- NOTE | 2019-06-14 19:30 | RAD REPORT ---
EXAM DESCRIPTION: Jasiel Single View06/14/2019 7:08 pm CLINICAL HISTORY: Chest pain COMPARISON: March 2019 FINDINGS: The lungs appear clear of acute infiltrate. The heart is normal size Postsurgical changes involve the chest. IMPRESSION: No acute abnormalities displayed
[2019-06-14 19:32] LABS: ALT/SGPT 8 U/L (12-78); AST/SGOT 13 U/L (15-37); Alkaline Phosphatase 45 U/L (45-117); BUN Blood Urea Nitrogen 51 mg/dL (7-18); Bicarbonate 21 mmol/L (21-32); Bilirubin Direct 0.2 mg/dL (0-0.2); Bilirubin Total 0.4 mg/dL (0.2-1.0); Glucose Level 73 mg/dL (74-106); Magnesium 1.9 mg/dL (1.8-2.4); NT PRO-BNP 5743 pg/mL (<125); Potassium 4.3 mmol/L (3.5-5.1); Protein, Total 5.9 g/dL (6.4-8.2); Sodium Level 142 mmol/L (136-145); Troponin (Emerg Dept Use Only) < 0.02 ng/mL (0.0-0.045)
[2019-06-14 19:33] LABS: Blood Morphology Comment NOTED (NOT SEEN); Macrocytosis 1+; Platelet Estimate DECR; Urine White Blood Cell Casts OK
--- NOTE | 2019-06-14 20:35 | EDPHYS ---
Physician Documentation [facility] Name: Kavin Armijo Age: 64 yrs Sex: Male : 1955 Arrival Date: 06/14/2019 Time: 18:15 Bed 2 Private MD: ED Physician Marcus Torres HPI: 06/14 20:31 This 64 yrs old Male presents to ER via EMS with complaints of Weakness gs Urinary Frequency. 20:31 The patient presents to the emergency department with weakness of the entire body, gs generalized weakness. Onset: The symptoms/episode began/occurred 5 day(s) ago, and became persistent. Associated signs and symptoms: Pertinent negatives: altered mental status, fever, seizure, syncope. Severity of symptoms: At their worst the symptoms were moderate in the emergency department the symptoms are unchanged. The patient has experienced similar episodes in the past, a few times. Historical: - Allergies: 18:26 Phenergan; sg - Home Meds: 18:26 amlodipine 10 mg tab 1 tab once daily [Active]; divalproex 250 mg Oral Tb24 once daily sg [Active]; divalproex 500 mg Oral TbEC 2 tabs once daily [Active]; gabapentin 300 mg Oral cap 1 cap two times per day [Active]; metoprolol tartrate 50 mg Oral tab 1 tab 2 times per day [Active]; mirtazapine 30 mg Oral TbDL 1 tab once daily [Active]; sertraline 100 mg Oral tab 1 tab once daily [Active]; simvastatin 40 mg Oral tab 1 tab once daily [Active]; - PMHx: 18:26 anmesia; Hypertension; Bipolar disorder; Renal Disease; Sleep Apnea; stage 4 kidney sg failure; 18:30 Spinal Stenosis; sg - PSHx: 18:26 Triple Bypass; Cholecystectomy; sg - Immunization history:: Adult Immunizations up to date. - Social history:: Smoking status: Patient/guardian denies using tobacco. - Ebola Screening: : Patient negative for fever greater than or equal to 101.5 degrees Fahrenheit, and additional compatible Ebola Virus Disease symptoms Patient denies exposure to infectious person Patient denies travel to an Ebola-affected area in the 21 days before illness onset No symptoms or risks identified at this time. ROS: 20:31 All other systems are negative. gs Exam: 20:31 Head/Face: Normocephalic, atraumatic. Eyes: Pupils equal round and reactive to light, gs extra-ocular motions intact. Lids and lashes normal. Conjunctiva and sclera are non-icteric and not injected. Cornea within normal limits. Periorbital areas with no swelling, redness, or edema. ENT: Nares patent. No nasal discharge, no septal abnormalities noted. Tympanic membranes are normal and external auditory canals are clear. Oropharynx with no redness, swelling, or masses, exudates, or evidence of obstruction, uvula midline. Mucous membranes moist. Neck: Trachea midline, no thyromegaly or masses palpated, and no cervical lymphadenopathy. Supple, full range of motion without nuchal rigidity, or vertebral point tenderness. No Meningismus. Chest/axilla: Normal chest wall appearance and motion. Nontender with no deformity. No lesions are appreciated. Cardiovascular: Regular rate and rhythm with a normal S1 and S2. No gallops, murmurs, or rubs. Normal PMI, no JVD. No pulse deficits. Respiratory: Lungs have equal breath sounds bilaterally, clear to auscultation and percussion. No rales, rhonchi or wheezes noted. No increased work of breathing, no retractions or nasal flaring. Abdomen/GI: Soft, non-tender, with normal bowel sounds. No distension or tympany. No guarding or rebound. No evidence of tenderness throughout. Back: No spinal tenderness. No costovertebral tenderness. Full range of motion. Skin: Warm, dry with normal turgor. Normal color with no rashes, no lesions, and no evidence of cellulitis. MS/ Extremity: Pulses equal, no cyanosis. Neurovascular intact. Full, normal range of motion. Neuro: Awake and alert, GCS 15, oriented to person, place, time, and situation. Cranial nerves II-XII grossly intact. Motor strength 5/5 in all extremities. Sensory grossly intact. Cerebellar exam normal. Normal gait. 20:31 Constitutional: The patient appears alert, awake. 20:31 ECG was reviewed by the Attending Physician. Vital Signs: 18:16 Temp 98.9(O); sg 18:18 BP 103 / 72; Pulse 67; Resp 12; Pulse Ox 99% on R/A; Weight 64.41 kg; Height 5 ft. 9 sg in. (175.26 cm); Pain 3/10; 19:28 BP 113 / 63; Pulse 74; Resp 16; Temp 98.9; Pulse Ox 99% on R/A; Pain 4/10; ch 18:18 Body Mass Index 20.97 (64.41 kg, 175.26 cm) sg MDM: 18:48 Patient medically screened. gs 20:31 Data reviewed: vital signs, nurses notes, lab test result(s), EKG, radiologic studies. Counseling: I had a detailed discussion with the patient and/or guardian regarding: the historical points, exam findings, and any diagnostic results supporting the discharge/admit diagnosis. Response to treatment: There is no appreciated change of the patient's symptoms at this time. Physician consultation: Jose De Paz MD and will see patient in inpatient room. 06/14 18:16 Order name: Urine Microscopic Only 06/14 18:48 Order name: Basic Metabolic Panel; Complete Time: 20:25 06/14 18:48 Order name: CBC with Diff; Complete Time: 20:25 06/14 18:48 Order name: LFT's; Complete Time: 20:25 06/14 18:48 Order name: Magnesium; Complete Time: 20:25 06/14 18:48 Order name: NT PRO-BNP; Complete Time: 20:25 06/14 18:48 Order name: PT-INR; Complete Time: 20:25 06/14 18:48 Order name: Troponin (emerg Dept Use Only); Complete Time: 20:25 06/14 19:17 Order name: CBC Smear Scan; Complete Time: 20:25 [facility] 06/14 21:24 Order name: Troponin I [facility] 06/14 21:24 Order name: Troponin I [facility] 06/14 21:24 Order name: Troponin I [facility] 06/14 21:35 Order name: Blood Culture Adult (2) 06/14 21:38 Order name: Urine Dipstick--Ancillary (enter results) ds4 06/14 18:16 Order name: Urine Dipstick-Ancillary (obtain specimen); Complete Time: 21:37 06/14 18:48 Order name: XRAY Chest (1 view); Complete Time: 20:25 06/14 18:48 Order name: EKG; Complete Time: 18:50 06/14 18:48 Order name: Cardiac monitoring; Complete Time: 19:03 06/14 18:48 Order name: EKG - Nurse/Tech; Complete Time: 19:03 06/14 18:48 Order name: IV Saline Lock; Complete Time: 19:03 06/14 18:48 Order name: Labs collected and sent; Complete Time: 19:03 06/14 18:48 Order name: O2 Per Protocol; Complete Time: 19:03 06/14 18:48 Order name: O2 Sat Monitoring; Complete Time: 19:04 06/14 20:37 Order name: CT Stone Protocol 06/14 20:37 Order name: Misc. Order: please get urine; Complete Time: 21:37 06/14 21:24 Order name: CONS Physician Consult [facility] 06/14 21:24 Order name: Consistent Carb (ADA) [address] [employer] [facility] 06/14 21:24 Order name: EKG Electrocardiogram [facility] 06/14 21:24 Order name: EKG Electrocardiogram [facility] EC:31 Rate is 66 beats/min. Rhythm is regular. NV interval is normal. QRS interval is normal. gs T waves are Inverted in leads I, aVL, V4, V5. ST Segment is depressed in leads I, aVL, V4, V5. Clinical impression: NSR w/ Non-specific ST/T Changes and Abnormal EKG without significant change. Interpreted by me. Administered Medications: 22:53 Drug: Rocephin - (cefTRIAXone) 1 grams Route: IVPB; Infused Over: 30 mins; Site: right [facility] hand; 22:53 Follow up: IV Status: Completed infusion; IV Intake: 10ml ak Disposition: 06/14/19 20:34 Hospitalization ordered by Jose De Paz for Observation. Preliminary diagnosis are Weakness, Dehydration. - Bed requested for Telemetry/MedSurg (Inpatient). - Status is Observation. ak1 - Condition is Stable. - Problem is an acute exacerbation. - Symptoms are unchanged. UTI on Admission? Yes Signatures: Dispatcher [employer] [facility] Ghislaine Wiley RN RN mw Gay, Steven, RN RN sg Krenek, Amber, RN RN [facility] Marcus Torres MD MD Corrections: (The following items were deleted from the chart) 21:36 20:34 Hospitalization Ordered by Jose De Paz MD for Observation. Preliminary diagnosis gs is Weakness; Dehydration. Bed requested for Telemetry/MedSurg (Inpatient). Status is Observation. Condition is Stable. Problem is an acute exacerbation. Symptoms are unchanged. UTI on Admission? No. 21:37 21:36 06/14/2019 20:34 Hospitalization Ordered by Jose De Paz MD for Observation. mw Preliminary diagnosis is Weakness; Dehydration. Bed requested for Telemetry/MedSurg (Inpatient). Status is Observation. Condition is Stable. Problem is an acute exacerbation. Symptoms are unchanged. UTI on Admission? Yes. 23:05 21:37 06/14/2019 20:34 Hospitalization Ordered by Jose De Paz MD for Observation. ak1 Preliminary diagnosis is Weakness; Dehydration. Bed requested for Telemetry/MedSurg (Inpatient). Status is Observation. Condition is Stable. Problem is an acute exacerbation. Symptoms are unchanged. UTI on Admission? Yes. mw
--- NOTE | 2019-06-14 20:35 | ER ---
Nurse's Notes [facility] Name: Kavin Armijo Age: 64 yrs Sex: Male : 1955 Arrival Date: 06/14/2019 Time: 18:15 Bed 2 Private MD: Diagnosis: Weakness;Dehydration Presentation: 06/14 18:17 Presenting complaint: EMS states: pt was having urinary frequency most of the night sg last night per the pt spouse, pt reports today feeling weak and tired and having mild pain in the flank area, denies N/V/D/Fever that pt knows of at this time. Transition of care: patient was not received from another setting of care. Onset of symptoms was June 14, 2019. Risk Assessment: Do you want to hurt yourself or someone else? Patient reports no desire to harm self or others. Initial Sepsis Screen: Does the patient meet any 2 criteria? Mean Arterial Pressure (MAP) < 65. No. Patient's initial sepsis screen is negative. Does the patient have a suspected source of infection? Yes: Dysuria/Frequency/Urgency/UTI. Care prior to arrival: Medication(s) given: Normal saline infusion, 500 mL, IV initiated. 20 GA, in the right hand, Glucose check: 78. 18:17 Method Of Arrival: EMS: [facility] sg 18:17 Acuity: CHANNING 2 sg 18:21 Note EMS report the pt to be hypotensive with BP's reading 70/40's manually. sg Historical: - Allergies: 18:26 Phenergan; sg - Home Meds: 18:26 amlodipine 10 mg tab 1 tab once daily [Active]; divalproex 250 mg Oral Tb24 once daily sg [Active]; divalproex 500 mg Oral TbEC 2 tabs once daily [Active]; gabapentin 300 mg Oral cap 1 cap two times per day [Active]; metoprolol tartrate 50 mg Oral tab 1 tab 2 times per day [Active]; mirtazapine 30 mg Oral TbDL 1 tab once daily [Active]; sertraline 100 mg Oral tab 1 tab once daily [Active]; simvastatin 40 mg Oral tab 1 tab once daily [Active]; - PMHx: 18:26 anmesia; Hypertension; Bipolar disorder; Renal Disease; Sleep Apnea; stage 4 kidney sg failure; 18:30 Spinal Stenosis; sg - PSHx: 18:26 Triple Bypass; Cholecystectomy; sg - Immunization history:: Adult Immunizations up to date. - Social history:: Smoking status: Patient/guardian denies using tobacco. - Ebola Screening: : Patient negative for fever greater than or equal to 101.5 degrees Fahrenheit, and additional compatible Ebola Virus Disease symptoms Patient denies exposure to infectious person Patient denies travel to an Ebola-affected area in the 21 days before illness onset No symptoms or risks identified at this time. Screenin:20 Abuse screen: Denies threats or abuse. Denies injuries from another. Nutritional sg screening: No deficits noted. Tuberculosis screening: No symptoms or risk factors identified. Never had TB. Fall Risk None identified. Assessment: 18:22 General: Appears in no apparent distress. well groomed, well developed, well nourished, sg Behavior is calm, cooperative, appropriate for age. Pain: Complains of pain in left mid back and right mid back Quality of pain is described as aching, tender. Neuro: Level of Consciousness is awake, alert, obeys commands, Oriented to person, place, time, situation, Fabric Finisher are equal bilaterally Speech is normal, Facial symmetry appears normal. Cardiovascular: Capillary refill is brisk in bilateral fingers Patient's skin is warm and dry. Chest pain is denied. Respiratory: Airway is patent Respiratory effort is even, unlabored, Respiratory pattern is regular, symmetrical, Breath sounds are clear. GI: Abdomen is flat, non-distended. : Reports pain in bilateral flank(s), urinary frequency, since last night. EENT: No signs and/or symptoms were reported regarding the EENT system. Derm: Skin is pale. Musculoskeletal: Circulation, motion, and sensation intact. Range of motion: intact in all extremities. 19:28 Reassessment: Patient appears in no apparent distress at this time. Patient and/or ch family updated on plan of care and expected duration. Pain level reassessed. General: Appears in no apparent distress. comfortable, Behavior is calm, cooperative, appropriate for age. Pain: Complains of pain in right mid back and left mid back Pain currently is 4 out of 10 on a pain scale. Neuro: Level of Consciousness is awake, alert, obeys commands, Oriented to person, place, Fabric Finisher are equal bilaterally Moves all extremities. Weakness Gait is steady, Speech is normal, Facial symmetry appears normal, Facial symmetry: tongue is midline. Respiratory: Airway is patent Trachea midline Respiratory effort is even, unlabored. : Reports pain urgency, urinary frequency. Derm: Skin is pink, warm \T\ dry. 22:44 Reassessment: report given to Carey FERRO for 225. ak1 Vital Signs: 18:16 Temp 98.9(O); sg 18:18 BP 103 / 72; Pulse 67; Resp 12; Pulse Ox 99% on R/A; Weight 64.41 kg; Height 5 ft. 9 sg in. (175.26 cm); Pain 3/10; 19:28 BP 113 / 63; Pulse 74; Resp 16; Temp 98.9; Pulse Ox 99% on R/A; Pain 4/10; ch 18:18 Body Mass Index 20.97 (64.41 kg, 175.26 cm) sg ED Course: 18:15 Patient arrived in ED. sg 18:16 Marcus Torres MD is Attending Physician. gs 18:16 Arm band placed on. sg 18:18 Triage completed. sg 18:22 Initial lab(s) drawn, by ED staff, held in ED. a urine has been ordered at this time. sg Maintain EMS IV. Dressing intact. Good blood return noted. Site clean \T\ dry. Gauge \T\ site: 20 G R Hand. IV is patent, is intact, with fluids infusing freely, with good blood return. 18:26 Patient has correct armband on for positive identification. Bed in low position. Call sg light in reach. Side rails up X2. marketing technology coordinator on. Pulse ox on. NIBP on. a blanket has been given Head of bed elevated. 19:04 XRAY Chest (1 view) In Process Unspecified. EDMS 19:08 Belem Urban, PILLO is Primary Nurse. ch 19:28 No apparent distress. Resting quietly. ch 20:34 Jose De Paz MD is Hospitalizing Provider. gs 21:15 CT Stone Protocol In Process Unspecified. EDMS 21:37 Urine Microscopic Only Sent. ds4 22:05 No provider procedures requiring assistance completed. Patient admitted, IV remains in ak1 place. Administered Medications: 22:53 Drug: Rocephin - (cefTRIAXone) 1 grams Route: IVPB; Infused Over: 30 mins; Site: right ak1 hand; 22:53 Follow up: IV Status: Completed infusion; IV Intake: 10ml ak1 Intake: 22:53 IV: 10ml; Total: 10ml. ak1 Outcome: 20:34 Decision to Hospitalize by Provider. 22:05 Admitted to Med/surg accompanied by tech, via stretcher, room 225, with chart. ak1 22:05 Condition: good 22:05 Instructed on the need for admit. 23:05 Patient left the ED. ak1 Signatures: Dispatcher [employer] EDBelem Adler, RN RN Ferny Phan RN RN sg Swanson, Donovan ds4 Edwina Bauman RN RN ak1 Marcus Torres MD MD
[2019-06-14 21:45] LABS: Urine Blood 2+ (NEG); Urine Glucose NEGATIVE (NEG); Urine Protein NEGATIVE (NEG); Urine Specific Gravity 1.005 (1.005-1.030); Urine pH 5.5 (5.0-7.0)
[2019-06-14] MEDS ORDERED: NA CHLORIDE 0.9% 1,000 ML IV SCH (22:00)
[2019-06-14] MEDS ORDERED: CEFTRIAXONE/SWI 1gm 1 GM/10 ML SYR ONE (22:10)
[2019-06-14 22:38] LABS: Urine Bacteria <20 /HPF (NONE SEEN); Urine Culture Reflex Order REFLEXED; Urine Mucus 1+ /HPF (NONE SEEN)
[2019-06-14 23:20] VITALS: BMI 22.6
[2019-06-15] MEDS: NA CHLORIDE 0.9% 1,000 ML IV SCH ×3 (01:00→22:56)
[2019-06-15] MEDS ORDERED: METRONIDAZOLE 500mg IVPB 500 MG/100 ML BAG IV SCH (01:00)
[2019-06-15 07:56] LABS: Urine Appearance CLOUDY; Urine Color YELLOW; Urine Glucose NEGATIVE (NEG)
[2019-06-15 07:57] LABS: Urine Bilirubin NEGATIVE (NEG); Urine Blood 2+ (NEG); Urine Protein NEGATIVE (NEG); Urine Urobilinogen 0.2 mg/dL (0.2-1.0)
[2019-06-15 08:11] LABS: Urine Bacteria 20-50 /HPF (NONE SEEN); Urine Culture Reflex Order REFLEXED; Urine RBC 20-50 /HPF (NONE SEEN)
[2019-06-15] MEDS: CALCITROL 0.25 MCG CAP PO SCH (08:55)
[2019-06-15] MEDS: SERTRALINE HCL 100 MG TAB PO SCH (08:55)
[2019-06-15] MEDS ORDERED: ENOXAPARIN 30 MG/0.3 ML SQ SCH (09:00)
[2019-06-15] MEDS ORDERED: ENOXAPARIN 40 MG/0.4 ML SQ SCH (09:00)
[2019-06-15] MEDS: METOPROLOL TAR 50 MG TAB PO SCH ×2 (09:00→21:27)
[2019-06-15 09:43] LABS: MPV 8.6 fL (7.6-11.3)
--- NOTE | 2019-06-15 09:54 | RAD REPORT ---
EXAM DESCRIPTION: CT - Stone Protocol - 06/15/2019 5:14 am CLINICAL HISTORY: ABD PAIN TECHNIQUE: Axial computed tomography images of the abdomen and pelvis without intravenous contrast. Sagittal and coronal reformatted images were created and reviewed. This CT exam was performed usi ng one or more of the following dose reduction techniques: automated exposure control, adjustment o f the mA and/or kV according to patient size, and/or use of iterative reconstruction technique. COMPARISON: No relevant prior studies available. FINDINGS: Limitations: None. Lung bases: There is mucous in the right lower lobe airways with associated atelectasis. ABDOMEN: Liver: Unremarkable. Gallbladder and bile ducts: Cholecystectomy. No ductal dilation. Pancreas: Unremarkable. No ductal dilation. Spleen: Unremarkable. No splenomegaly. Adrenals: Unremarkable. No mass. Kidneys and ureters: There is a 1.1 cm diameter exophytic hypodense nodule from the upper pole o f the left kidney. There is a relatively dense mass in the lower pole of the left kidney measuring 2.2 x 2.6 x 2.8 cm. Hypodense nodule with minimal linear wall calcification identified in the left kidney measures 2.3 x 2.6 cm. Bilateral renal vascular calcification present. No hydronephrosis. Stomach and bowel: Colonic diverticulosis noted. There is mild focal thickening of the lateral conal fascia in the mid descending colon best seen on coronal image 52. No obstruction. PELVIS: Appendix: No findings to suggest acute appendicitis. Bladder: There is mild circumferential thickening of the urinary bladder. No stones. Reproductive: Unremarkable as visualized. ABDOMEN and PELVIS: Intraperitoneal space: Unremarkable. No free air. No significant fluid collection. Bones/joints: No acute fracture. No dislocation. Soft tissues: Unremarkable. Vasculature: No aneurysm. Lymph nodes: Unremarkable. No enlarged lymph nodes. IMPRESSION: 1. The solid left renal mass. Sonography recommended. 2. Mild diverticulitis of the mid descending colon without complication. 3. There is right base atelectasis with mucus in the associated airways. Bronchitis is not exclud ed. Electronically signed by: Linda Bee MD 06/14/2019 9:42 PM CDT Due to temporary technical issues with the PACS/Fluency reporting system, reports are being signed by the in house radiologist as a courtesy to ensure prompt reporting. The interpreting radiologist is f ully responsible for the content of the report.
[2019-06-15 10:23] LABS: Thyroid Stimulating Hormone 0.528 uIU/mL (0.360-3.740)
--- NOTE | 2019-06-15 11:12 | RAD REPORT ---
EXAM DESCRIPTION: US - Renal Ultrasound-Complete - 06/15/2019 10:34 am CLINICAL HISTORY: June 14, 2019 cat scan COMPARISON: None. FINDINGS: The right kidney measures 9 cm with an increased echotexture. The left kidney measures 10 cm with an increased echotexture. Several left renal cysts. Largest cyst measures 3.2 centimeter Hydronephrosis is not seen. No gross abnormality of bladder is seen IMPRESSION: Increased renal echotexture consistent with parenchymal disease Left renal cysts. A solid mass is not visualized within the lower pole of the left kidney
[2019-06-15 11:16] LABS: Platelet Estimate DECR
--- NOTE | 2019-06-15 11:39 | EKG ---
Test Date: 2019-06-14 Test Time: 19:23:05 Bulk Plant Agent: GLENNY MEASUREMENT RESULTS: Intervals: Rate: 66 AR: 142 QRSD: 92 QT: 428 QTc: 448 [place]: P: 69 AR: 142 QRS: 63 T: 130 INTERPRETIVE STATEMENTS: Normal sinus rhythm ST & T wave abnormality, consider lateral ischemia Abnormal ECG Compared to ECG 05/19/2019 15:32:07 Possible ischemia now present ST (T wave) deviation still present Electronically Signed On 06-15-19 11:38:25 CDT by Yousif Lara
[2019-06-15] MEDS: CIPROFLOXACIN 400mg IV 400 MG/200 ML BAG IV SCH (14:42)
[2019-06-15] MEDS: METRONIDAZOLE 500mg IVPB 500 MG/100 ML BAG IV SCH (18:11)
--- NOTE | 2019-06-15 21:03 | CON ---
Date of Consultation: 06/15/2019 Additional Consulting Physician: Dr. De Paz. Reason For Consultation: Elevated BUN and creatinine, hypertension. History Of Present Illness: This is a pleasant 64-year-old gentleman with significant past medical h istory of hypertension, hyperlipidemia, coronary artery disease complicated with congestive heart yelitza lure status post CABG, obstructive sleep apnea, hypertension, chronic kidney disease stage 4 secondar y to cardiorenal, baseline creatinine around 3, GFR around 20. The patient was in his regular state of health, came to the hospital complaining of weakness and fatigue. A primary workup for the patien t showed elevation in BUN and creatinine. For that reason, was admitted. Creatinine was up to 4.9, with GFR of 12. Reviewing the record for the patient back in May, creatinine was 3.5 with GFR of 17. The patient denied any change in his medication. No IV contrast. The patient was seen by Dr Melania Louie in middle of May. Past Medical History: 1.Hypertension. 2.Hyperlipidemia. 3.Chronic kidney disease stage 4, baseline creatinine 3.2, GFR of 17. 4.Coronary artery disease complicated with congestive heart failure status post CABG. 5.Obstructive sleep apnea. Past Surgical History: 1.CABG back in 2010. 2.Cholecystectomy. Allergies: PHENERGAN. Family History: Positive for pancreatic cancer, hypertension, and polycythemia vera. Social History: Active smoker. Denied alcohol. Denied drugs abuse. Review of Systems: Head and Neck: No red eye. No ear pain. GI: Decreased intake. : No polyuria. No dysuria. No hematuria. Geological Science Teacher: Not applicable. Respiratory: No shortness of breath. Cardiovascular: No chest pain. Endocrine: No polydipsia. Skin: No rash. Neuro: No weakness. Musculoskeletal: Low back pain. Physical Examination: General: When I saw the patient, the patient lying in bed, comfortable, not on any oxygen. Vital Signs: Blood pressure of 116/69. Upon presentation to the hospital, the blood pressure was ar ound 100, pulse of 70, afebrile. The patient still has good urine output. Chest: Clear to auscultation. Heart: S1, S2. Systolic murmur. Abdomen: Soft, nontender. Extremities: No edema. Laboratory Data: Back in May, creatinine 3.5, GFR of 17. No hyperkalemia. Upon this admissio n, sodium 142, potassium 4.3, bicarb 21, BUN 51, creatinine 4.9, GFR of 12, calcium 8.1. Patient had a serum protein electrophoresis before, which is negative. Urinalysis; specific gravity of 1.010, w bc's of 50. Current Medications: The patient on are include ciprofloxacin, metronidazole, atorvastatin, mirtazap ine, normal saline, calcitriol. Home Medication: For the patient include sertraline, aspirin, divalproex, calcitriol, mirtazapine, s imvastatin, metoprolol 50 b.i.d. Assessment And Plan: 1.Acute kidney injury secondary to prerenal, secondary to gastrointestinal loss on advanced chronic kidney disease. Normal volume. I agree with current IV fluid. We will send for renal ultrasound to rule out any obstructive uropathy and we will monitor the patient closely. I do not see any acidosi s, no hyperkalemia, no uremic symptoms currently, so I do not see the need to initiate renal replacem ent therapy yet. 2.Gastroenteritis. I agree with current antibiotic dose appropriate. 3.Urinary tract infection. Continue current antibiotic. We will follow up culture. 4.Secondary hyperparathyroid. Continue calcitriol. Thank you, Dr. De Paz, for allowing us to participate in the care of your patient. DONN Voice ID: [id number] Report ID: [id number]
--- NOTE | 2019-06-15 21:04 | P.HP ---
Certification for Inpatient Patient admitted to: Inpatient With expected LOS: >2 Midnights Practitioner: I am a practitioner with admitting privileges, knowledge of patient current condition, hospital course, and medical plan of care. Services: Services provided to patient in accordance with Admission requirements found in Title 42 Section 412.3 of the Code of Federal Regulations Patient History Date of Service: 06/15/19 Reason for admission: GENERAL WEAKNESS History of Present Illness: MR. MENDEZ COMES TO ER WITH COMPLAINTS OF GENERAL WEAKNESS. I SAW HIM FIRST TIME IN OFFICE ABOUT TWO DAYS AGO. TODAY IS NOT ABLE TO TAKE CARE OF HIM. HE HAS BEEN TO ER AND [facility] ADMISSIONS A FEW TIMES IN LAST YEAR FOR WEAKNESS, DEHYDRATION. HE HAS BEEN EXAMINED BY FAMILY DOCTORS, INERNISTS, PULMONARY DOCTOR, NEPHROLOGISTS AND ONCOLOGISTS. HE HAS CHRONIC RENAL FAILURE WITH BASLINE CREATININE OF ABOUT 4, HE ALSO HAS EPISODES WHERE SAYS HE JUST DOES NOT LISTEN TO WHAT YOU ARE ASKING ABOUT IF HE HAS NO HEARING AND KEEPS ON TALKING. HE HAS BIPOLAR DISEASE AND HAS BEEN ON LITHIUM THAT GAVE HIM RENAL FAILURE AND NOW HE IS ON DEPAKOT. HE DENIES CHEST PAIN, FEVER, PAIN ANYWHRE. Allergies promethazine HCl [From Phenergan] Allergy (Severe, Verified 04/07/19 20:39) Nausea/Vomiting chlorpromazine HCl [From Thorazine] Allergy (Intermediate, Verified 04/07/19 20: 39) Anaphylaxis Home Medications: Aspirin Chewable [Aspirin Chewable*] 81 mg PO DAILY 03/24/19 Calcitrol [Rocaltrol*] 0.25 mg PO DAILY 03/24/19 Divalproex Sodium 1,250 mg PO BEDTIME 03/24/19 Metoprolol Tartrate 50 mg PO BID 03/24/19 Mirtazapine 30 mg PO DAILY 03/24/19 Sertraline [Zoloft*] 100 mg PO DAILY 03/24/19 Simvastatin 40 mg PO BEDTIME 03/24/19 - Past Medical/Surgical History Has patient received pneumonia vaccine in the past: No Diabetic: No -: Obstructive sleep apnea -: Chronic renal disease, stage IV -: CAD with prior CABG x3 vessel -: Bipolar disorder -: Chronic pain-lower back -: Hypertension -: Hyperlipidemia -: Insomnia -: History of dvt right calf (knee fracture) -: Colon polyps -: GERD with ulcers -: Tobacco abuse -: CABG x3 vessel -: cholecystectomy -: triple bypass -: knee surgery Psychosocial/ Personal History: Patient is - Family History Mother -: Heart disease Notes: polycythemia, [place] Father -: Other (see notes) Notes: pancreatic cancer - Social History Smoking Status: Current every day smoker Alcohol use: No CD- Drugs: No Caffeine use: Yes Review of Systems 10-point ROS is otherwise unremarkable General: Weakness, Malaise Neurological: Incoordination, Confusion, As per HPI Physical Examination - Vital Signs Temperature: 96.7 F Blood Pressure: 116/69 Pulse: 70 Respirations: 18 Pulse Ox (%): 95 - Physical Exam General: Alert, Mild distress HEENT: Atraumatic, PERRLA, Mucous membr. moist/pink, EOMI, Sclerae nonicteric Neck: Supple, 2+ carotid pulse no bruit, No LAD, Without JVD or thyroid abnormality Respiratory: Clear to auscultation bilaterally, Normal air movement Cardiovascular: Regular rate/rhythm, Normal S1 S2 Gastrointestinal: Normal bowel sounds, No tenderness Musculoskeletal: No tenderness Integumentary: No rashes Neurological: Normal speech, Abnormal gait, Abnormal strength Lymphatics: No axilla or inguinal lymphadenopathy Assessment and Plan - Problems (Diagnosis) (1) Acute on chronic renal failure Current Visit: Yes Status: Chronic Plan: HE HAS HAD THIS FROM LITHIUM. CT SCAN SHOWED RENAL MASS BUT SONOGRAM RULED OUT TO BE A RENAL CYST. GENTLE IV HYDRATION. RARE POSSIBILITIES ARE TTP. HE HAS RENAL FAILURE, LOW PLATELETS AND ALETERED MENTAL STATUS. HEMATOLOGY HAS BEEN CONSULTED. Qualifiers: Acute renal failure type: with other specified pathological lesion Chronic kidney disease stage: stage 4 (severe) Qualified Code(s): N17.8 - Other acute kidney failure; N18.4 - Chronic kidney disease, stage 4 (severe) (2) Diverticulitis Current Visit: Yes Status: Acute Plan: IV CIPRO AND FLAGYL HE HAS NO SS BUT CT SCAN SHOWS CHANGES. COLONSCOPY WHEN STABLE BUT HIS PHYSICAL CONDITION IS NOT GOOD ENOUGH. (3) Elevated PSA Current Visit: Yes Status: Acute Plan: THIS COULD BE PROSTATE CANCER WITH METS. WILL ORDER BONE SCAN IN AM. CONSULT DR. SEALS FOR BIOPSY. HE MAY HAVE POST OBSTRUCTIVE UROPATHY IN ADDITION TO RENAL DAMAGE. (4) Testicular hypogonadism Current Visit: Yes Status: Chronic Plan: THIS WILL EXPLAIN HIS GENERAL WEAKNESS. HE CAN'T BE TREATED WITH TESTOSTERONE HE HAS POSSIBLE PROSTATE CANCER. (5) Altered mental state Current Visit: Yes Status: Chronic Plan: RULE OUT ATYPICAL SEIZURE. CONSULT DR. QUILES. MRI HAS BEEN DONE BEFORE IN RECENT PAST. TTP CAN EXPLAIN THIS BUT HE DOES NOT LOOK SICK LIKE TTP PATIENTS WILL LOOK. UTI CAN DO THIS ALSO. Qualifiers: Altered mental status type: disorientation Qualified Code(s): R41.0 - Disorientation, unspecified (6) General weakness Onset Date: 08/09/18 Current Visit: No Status: Chronic Plan: LOW T LEVEL EXPLAINSTHIS. (7) Bipolar disorder Onset Date: 02/23/18 Current Visit: No Status: Chronic Plan: RESUME DEPAKOT. Qualifiers: Active/Remission status: remission status unspecified Qualified Code(s): F31.9 - Bipolar disorder, unspecified (8) Thrombocytopenia Current Visit: Yes Status: Acute Plan: THIS CAN HAPPEN FROM INFECTIONS IE. SEPSIS, CANCER LIKE MYELOMA HAVE BEEN RULED OUT. HEP B AND C HAVE BEEN RULED OUT. SPLENOMEGALY HAS BEEN RULED OUT. THERE IS NO EVIDENCE OF LYMPHADENOPATHY. SEPSIS IS LIKELY CAUSE. HIS PLATELETS WERE LOW BEFORE FIRST INJECTION OF LOVENOX. DEPAKOT CAN CAUSE THIS BUT HE HAS BEEN ON IT FOR LONG DURATION. - Advance Directives Does patient have a Living Will: No Does patient have a Durable POA for Healthcare: No
[2019-06-15] MEDS: ATORVASTATIN 20 MG TAB PO SCH (21:26)
[2019-06-15] MEDS: DIVALPROEX DR 500MG TAB PO SCH (21:26)
[2019-06-15] MEDS: MIRTAZAPINE 15 MG TAB PO SCH (21:27)
--- NOTE | 2019-06-15 22:02 | RAD REPORT ---
EXAM DESCRIPTION: US - Urinary Bladder - 06/15/2019 9:56 pm CLINICAL HISTORY: RETENTION OF URINE. COMPARISON: Urinary Bladder dated 07/15/2017 TECHNIQUE: Real-time sonographic evaluation of the urinary bladder with pre and postvoid volume bakari urements was performed. FINDINGS: Prevoid bladder volume is 50 mL. Postvoid bladder volume is 29 mL. Bladder wall appears mi ldly thickened. No mass or ureterocele. IMPRESSION: Moderate postvoid residual is present.
[2019-06-16] MEDS: METRONIDAZOLE 500mg IVPB 500 MG/100 ML BAG IV SCH ×3 (00:50→17:59)
[2019-06-16] MEDS: NA CHLORIDE 0.9% 1,000 ML IV SCH (03:20)
[2019-06-16 06:13] LABS: Absolute Lymphocytes (CBC) 0.9 K/uL (0.7-4.9); Basophils % 0.5 % (0-1.3); Hematocrit 38.6 % (39.6-49.0); Lymphocytes % 9.3 % (15.3-44.8); MPV 8.6 fL (7.6-11.3); RBC Red Blood Cell Count 3.63 M/uL (4.33-5.43)
[2019-06-16 06:32] LABS: Potassium 4.4 mmol/L (3.5-5.1)
[2019-06-16] MEDS: METOPROLOL TAR 50 MG TAB PO SCH ×2 (09:00→22:48)
[2019-06-16] MEDS: CALCITROL 0.25 MCG CAP PO SCH (09:01)
[2019-06-16] MEDS: SERTRALINE HCL 100 MG TAB PO SCH (09:01)
[2019-06-16] MEDS: ISOSORBIDE MONO SR 30 MG TAB PO SCH (09:01)
[2019-06-16 10:10] LABS: Anisocytosis 1+; Blood Morphology Comment NOTED (NOT SEEN); Macrocytosis 1+; Platelet Estimate DECR; Poikilocytosis 1+; Urine White Blood Cell Casts OK
--- NOTE | 2019-06-16 10:44 | RAD REPORT ---
EXAM DESCRIPTION: NM - Bone Imaging Whole Body - 06/16/2019 10:30 am CLINICAL HISTORY: Possible metastasis Pain, renal mass COMPARISON: NM-BONE IMAGING-WHOLE BODY dated 06/01/2012; Stone Protocol dated 06/14/2019; Ct Skull/Thi gh dated 03/10/2019; Renal Ultrasound-Complete dated 06/15/2019; Urinary Bladder dated 06/15/2019; Chest Single View dated 06/14/2019; Lung Cancer Screening CT W/O dated 01/10/2019; Abdomen Pelvis Wo Contr ast dated 11/11/2018; Renal Ultrasound-Complete dated 04/08/2019; Chest Pa And Lat (2 Views) dated 04/08; Renal Ultrasound-Complete dated 03/25/2019 TECHNIQUE: The patient was administered approximately 25 mCi Tc 99m MDP. Anterior and posterior whol e-body views were obtained at 3-4 hours. FINDINGS: There is a significantly reduced amount of uptake seen in the kidneys and urinary bladder relative to typical. Periarticular uptake is seen in both shoulders and knees compatible with degenerative activity. Degen erative uptake is seen as well with mild levoscoliosis of the lumbar spine. No abnormal activity seen to suspect metastatic or metabolic bone disease. IMPRESSION: No findings suspicious for osseous metastatic disease is identified. Diminished uptake in the kidneys and urinary bladder is favored to be related to renal function issue s. Although this pattern has been described in cases of superscan, the degree of activity within the osseous structures is not typical for that entity.
[2019-06-16] MEDS: CIPROFLOXACIN 400mg IV 400 MG/200 ML BAG IV SCH (16:02)
[2019-06-16 16:27] LABS: RBC Red Blood Cell Count 3.5 M/uL (4.33-5.43)
[2019-06-16 17:15] LABS: Ferritin 259.2 ng/mL (26-388); Folic Acid, (Folate) 2.9 ng/mL (3.1-17.5)
--- NOTE | 2019-06-16 17:56 | ECHO ---
HEIGHT: 5 ft 8 in WEIGHT: 149 lb 3 oz DATE OF STUDY: 06/16/[address]: Jose De Paz MD 2-DIMENSIONAL: YES M.MODE: YES DOPPLER: YES COLOR FLOW: YES TDS: YES PORTABLE: DEFINITY: BUBBLE STUDY: DIAGNOSIS: EDEMA, DYSPNEA CARDIAC HISTORY: CATHERIZATION: NO SURGERY: YES PROSTHETIC VALVE: NO PACEMAKER: NO MEASUREMENTS (cm) DIASTOLIC (NORMALS) SYSTOLIC (NORMALS) IVSd 1.2 (0.6-1.2) LA Diam 3.5 (1.9-4.0) LVEF 51% LVIDd 4.2 (3.5-5.7) LVIDs 3.2 (2.0-3.5) %FS 26% LVPWd 1.3 (0.6-1.2) Ao Diam 3.4 (2.0-3.7) 2 DIMENSIONAL ASSESSMENT: RIGHT ATRIUM: NORMAL LEFT ATRIUM: NORMAL RIGHT VENTRICLE: NORMAL LEFT VENTRICLE: NORMAL TRICUSPID VALVE: NORMAL MITRAL VALVE: NORMAL PULMONIC VALVE: NORMAL AORTIC VALVE: NORMAL PERICARDIAL EFFUSION: NONE AORTIC ROOT: NORMAL LEFT VENTRICULAR WALL MOTION: NORMAL DOPPLER/COLOR FLOW: NORMAL COMMENTS: NORMAL TWO DIMENSIONAL ECHOCARDIOGRAM WITH DOPPLER. TECHNOLOGIST: YUKI SLOAN
[2019-06-16] MEDS: DIVALPROEX DR 500MG TAB PO SCH (22:47)
[2019-06-16] MEDS: MIRTAZAPINE 15 MG TAB PO SCH (22:48)
[2019-06-16] MEDS: ATORVASTATIN 20 MG TAB PO SCH (22:49)
[2019-06-17] MEDS: METRONIDAZOLE 500mg IVPB 500 MG/100 ML BAG IV SCH ×2 (00:59→09:27)
[2019-06-17 05:19] LABS: Urine Appearance CLOUDY; Urine Bilirubin NEGATIVE (NEG); Urine Blood TRACE (NEG); Urine Color YELLOW; Urine Glucose NEGATIVE (NEG); Urine Protein NEGATIVE (NEG); Urine Specific Gravity <=1.005 (1.005-1.030); Urine Urobilinogen 0.2 mg/dL (0.2-1.0)
[2019-06-17 05:27] LABS: Urine Microscopic Reflex ORDER UMIC
[2019-06-17 06:29] LABS: Potassium 4.4 mmol/L (3.5-5.1)
[2019-06-17 06:32] LABS: Urine Culture Reflex Order NOT NEEDED
[2019-06-17 06:34] LABS: Urine Bacteria <20 /HPF (NONE SEEN); Urine RBC <5 /HPF (NONE SEEN)
[2019-06-17 06:45] LABS: Absolute Lymphocytes (CBC) 1.4 K/uL (0.7-4.9); Basophils % 0.3 % (0-1.3); Hematocrit 37.8 % (39.6-49.0); Lymphocytes % 16.6 % (15.3-44.8); MPV 8.2 fL (7.6-11.3); RBC Red Blood Cell Count 3.58 M/uL (4.33-5.43)
--- NOTE | 2019-06-17 09:15 | EEG ---
CHART: [id number] TEST ID#: [id number] DATE OF STUDY: 06/15/2019 THE EEG WAS RECORDED PORTABLE IN THE PATIENTS ROOM ON A 17 CHANNEL MACHINE. ELECTRODES WERE APPLIED IN THE USUAL MANNER USING THE INTERNATIONAL 10-20 SYSTEM. THE WAKING BACKGROUND RHYTHM IN THIS RECORD CONSISTS OF POORLY DEVELOPED AND POORLY ORGANIZED WAVES OF 7.5 HZ., MAXIMAL IN THE POSTERIOR HEAD REGIONS WHICH ATTENUATE NORMALLY WITH EYE OPENING. LOW-VOLTAGE 15-18 HZ ACTIVITY IS EXPRESSED IN THE FRONTAL REGIONS. MODERATE VOLTAGE 4-6 HZ ACTIVITY IS EXPRESSED DIFFUSELY. THERE ARE NO FOCAL OR LATERALIZING FEATURES. NO EPILEPTIFORM ACTIVITY APPEARS. SLEEP DID NOT OCCUR. HYPERVENTILATION WAS NOT PERFORMED. PHOTIC STIMULATION PRODUCED POOR DRIVING BILATERALLY. IMPRESSION: THIS IS A MILDLY ABNORMAL ROUTINE EEG DUE TO THE PRESENCE OF A MILD DIFFUSELY SLOW BACKGROUND. THIS IS A NON-SPECIFIC FINDING INDICATING THE PRESENCE OF A MILD DISTURBANCE IN CEREBRAL ACTIVITY.
[2019-06-17] MEDS: CALCITROL 0.25 MCG CAP PO SCH (09:28)
[2019-06-17] MEDS: SERTRALINE HCL 100 MG TAB PO SCH (09:28)
[2019-06-17] MEDS: METOPROLOL TAR 50 MG TAB PO SCH (09:28)
[2019-06-17] MEDS: ISOSORBIDE MONO SR 30 MG TAB PO SCH (09:28)
[2019-06-17 09:32] VITALS: BP 123/58
[2019-06-17 09:37] VITALS: TEMP 97.4
[2019-06-17 10:33] VITALS: O2SAT 97
--- NOTE | 2019-06-17 12:43 | P.PN ---
Subjective Date of Service: 06/17/19 Chief Complaint: GENERAL WEAKNESS Pt admitted for weakness , found to have ROSS and UTI had multiple admission in the past with ROSS due to dehydration Today stated he still feeling weak Cr improved to 3.4 PT/OT Physical Examination - Vital Signs Temperature: 97.4 F Blood Pressure: 123/58 Pulse: 62 Respirations: 18 Pulse Ox (%): 95 - Physical Exam General: Alert, In no apparent distress HEENT: Atraumatic Neck: Supple, Without JVD or thyroid abnormality Respiratory: Clear to auscultation bilaterally, Normal air movement Cardiovascular: No edema, Regular rate/rhythm, Normal S1 S2, No gallops, No rubs , No murmurs Gastrointestinal: Normal bowel sounds, Soft and benign Musculoskeletal: No clubbing, No swelling - Studies Microbiology Data (last 24 hrs): 06/14/19 21:43 Clean Catch Urine [place] Count - Final >100,000 CFU/ML. 06/14/19 21:43 Clean Catch Urine - Final Escherichia Coli Assessment And Plan - Plan Acute kidney injury on CKD IV due to prerenal azotemia baseline Cr ~3.0 renal dose meds UTI Cont Abx MBD Cont calcitriol
--- NOTE | 2019-06-17 14:16 | P.PN ---
Subjective Date of Service: 06/17/19 Chief Complaint: GENERAL WEAKNESS Subjective: Improving HE IS LAYING IN BED, AT TIMES HE MAKES SENSE. HE HAS NO PAIN, NO FEVER. Review of Systems 10-point ROS is otherwise unremarkable General: Weakness, Malaise Physical Examination - Vital Signs Temperature: 97.4 F Blood Pressure: 123/58 Pulse: 62 Respirations: 18 Pulse Ox (%): 95 - Physical Exam General: Alert, Mild distress HEENT: Atraumatic, PERRLA, EOMI Neck: Supple, JVD not distended Respiratory: Clear to auscultation bilaterally, Normal air movement Cardiovascular: Regular rate/rhythm, Normal S1 S2 Gastrointestinal: Normal bowel sounds, No tenderness Musculoskeletal: No tenderness Integumentary: No rashes Neurological: Normal speech, Normal tone, Normal affect Lymphatics: No axilla or inguinal lymphadenopathy - Studies Medications List Reviewed: Yes Assessment And Plan - Current Problems (Diagnosis) (1) Acute on chronic renal failure Current Visit: Yes Status: Chronic Plan: HE HAS HAD THIS FROM LITHIUM. CT SCAN SHOWED RENAL MASS BUT SONOGRAM RULED OUT TO BE A RENAL CYST. GENTLE IV HYDRATION. RARE POSSIBILITIES ARE TTP. HE HAS RENAL FAILURE, LOW PLATELETS AND ALETERED MENTAL STATUS. HEMATOLOGY HAS BEEN CONSULTED. UTI IS TEHRE FIRST CULTURE WAS CLEAN CATCH OR WHAT I CALLL UNCLEAN CATCH. CULTURE IS NOT RELIABLE. HE HAS NO SYMPTOMS. I ASKED THEM TO DO ST CATH BUT SOMEHOW THE LAB DID NOT DO CULTURE. I ASKED THEM TO DO CULTURE STILL IT WAS NOT DONE. [facility] CHANGED TO [facility] POSSIBLY IT IS OT NEEDED TO BE CHANGED. (2) Diverticulitis Current Visit: Yes Status: Acute Plan: IV CIPRO AND FLAGYL HE HAS NO SS BUT CT SCAN SHOWS CHANGES. COLONSCOPY WHEN STABLE BUT HIS PHYSICAL CONDITION IS NOT GOOD ENOUGH. (3) Elevated PSA Current Visit: Yes Status: Acute Plan: THIS COULD BE PROSTATE CANCER WITH METS. WILL ORDER BONE SCAN IN AM. CONSULT DR. SEALS FOR BIOPSY. HE MAY HAVE POST OBSTRUCTIVE UROPATHY IN ADDITION TO RENAL DAMAGE. (4) Testicular hypogonadism Current Visit: Yes Status: Chronic Plan: THIS WILL EXPLAIN HIS GENERAL WEAKNESS. HE CAN'T BE TREATED WITH TESTOSTERONE HE HAS POSSIBLE PROSTATE CANCER. (5) Altered mental state Current Visit: Yes Status: Chronic Plan: RULE OUT ATYPICAL SEIZURE. CONSULT DR. QUILES. MRI HAS BEEN DONE BEFORE IN RECENT PAST. TTP CAN EXPLAIN THIS BUT HE DOES NOT LOOK SICK LIKE TTP PATIENTS WILL LOOK. UTI CAN DO THIS ALSO. (6) General weakness Onset Date: 08/09/18 Current Visit: No Status: Chronic Plan: LOW T LEVEL EXPLAINSTHIS. (7) Bipolar disorder Onset Date: 02/23/18 Current Visit: No Status: Chronic Plan: RESUME DEPAKOT. HE ALSO HAS VASCUALR DEMENTIA PER DR. QUILES SO HE IS COGNITIVELYIMPAIRED. I COULD NOT DO NOTE YESTERDAY [facility] HAD AND STILL HAS SYSTEMWIDE COMPUTER ISSUES. I ALSO TALKED TO DR. KINGSLEY AND SHE SAYS HE CAN FU IN OFFICE. LOW PLATELETS CAN BE FROM SEPSIS., UTI. (8) Thrombocytopenia Current Visit: Yes Status: Acute Plan: THIS CAN HAPPEN FROM INFECTIONS IE. SEPSIS, CANCER LIKE MYELOMA HAVE BEEN RULED OUT. HEP B AND C HAVE BEEN RULED OUT. SPLENOMEGALY HAS BEEN RULED OUT. THERE IS NO EVIDENCE OF LYMPHADENOPATHY. SEPSIS IS LIKELY CAUSE. HIS PLATELETS WERE LOW BEFORE FIRST INJECTION OF LOVENOX. DEPAKOT CAN CAUSE THIS BUT HE HAS BEEN ON IT FOR LONG DURATION.
[2019-06-17] MEDS ORDERED: CEFEPIME/SWI 1gm 10 ML IVP SCH (15:00)
--- NOTE | 2019-06-17 19:03 | PN ---
Date of Progress Note: 06/16/2019 Subjective: Patient doing well, feeling better. Diarrhea has been subsided. Physical Examination: Vital Signs: Blood pressure 104/69, pulse of 60. Chest: Clear to auscultation. Heart: S1, S2. Regular. Abdomen: Soft, nontender. Extremities: No edema. Neuro: Patient alert, oriented, nonfocal. Laboratory Data: WBC 9.9, H and H 12.9/38.6, platelets of 44. Sodium 142, potassium 4.4, bicarb 20, BUN 57, creatinine down to 3.8, GFR of 16, calcium 8.8. BNP 5743. PSA of 43, testosterone 109. Current Medications: The patient on, its include: 1.Ciprofloxacin. 2.Metronidazole. 3.Isosorbide. 4.Metoprolol 50 b.i.d. 5.Atorvastatin. 6.Sertraline. 7.Normal saline at 50 per hour. Assessment And Plan: 1.Acute kidney injury secondary to prerenal, recovered back close to baseline, looked to me on the n ormal volume currently. I am going to go ahead and discontinue IV fluid. We will continue to monito r the patient. 2.Hypertension, controlled, optimal. Continue current medication. 3.Gastroenteritis. Continue current antibiotic. 4.Secondary hyperparathyroid, stable calcium and phosphorus on the goal. No need for vitamin D. No need for binder. DONN Voice ID: [id number] Report ID: [id number]
[2019-06-17] MEDS ORDERED: TAMSULOSIN 0.4 MG SR CAP PO SCH (21:00)
[2019-06-17] MEDS ORDERED: CEFEPIME 1 GM/VIAL IV SCH (21:00)
[2019-06-17] MEDS ORDERED: SMZ./TMP. 800/160 MG TABLET PO SCH (21:00)
--- NOTE | 2019-06-17 21:13 | P.DS ---
Admission Date: 06/16/19 Discharge Date: 06/17/19 Disposition: TRANSFER TO INPATIENT REHAB Discharge Condition: FAIR Reason for Admission: GENERAL WEAKNESS - Problems (1) Acute on chronic renal failure Status: Chronic (2) Diverticulitis Status: Acute (3) Elevated PSA Status: Acute (4) Testicular hypogonadism Status: Chronic (5) Altered mental state Status: Chronic Qualifiers: Altered mental status type: disorientation Qualified Code(s): R41.0 - Disorientation, unspecified (6) General weakness Onset Date: 08/09/18 Status: Chronic (7) Bipolar disorder Onset Date: 02/23/18 Status: Chronic Qualifiers: Active/Remission status: remission status unspecified Qualified Code(s): F31.9 - Bipolar disorder, unspecified (8) Thrombocytopenia Status: Acute Brief History of Present Illness: MR. MENDEZ COMES TO ER WITH COMPLAINTS OF GENERAL WEAKNESS. I SAW HIM FIRST TIME IN OFFICE ABOUT TWO DAYS AGO. TODAY IS NOT ABLE TO TAKE CARE OF HIM. HE HAS BEEN TO ER AND [facility] ADMISSIONS A FEW TIMES IN LAST YEAR FOR WEAKNESS, DEHYDRATION. HE HAS BEEN EXAMINED BY FAMILY DOCTORS, INERNISTS, PULMONARY DOCTOR, NEPHROLOGISTS AND ONCOLOGISTS. HE HAS CHRONIC RENAL FAILURE WITH BASLINE CREATININE OF ABOUT 4, HE ALSO HAS EPISODES WHERE SAYS HE JUST DOES NOT LISTEN TO WHAT YOU ARE ASKING ABOUT IF HE HAS NO HEARING AND KEEPS ON TALKING. HE HAS BIPOLAR DISEASE AND HAS BEEN ON LITHIUM THAT GAVE HIM RENAL FAILURE AND NOW HE IS ON DEPAKOT. HE DENIES CHEST PAIN, FEVER, PAIN ANYWHRE. Hospital Course: PATIENT HAS MANY ISSUES. HE IS WEAK, FALLS OFTEN. WE FOUND HIM TO HAVE LOW PLATELETS FROM SEPSIS, UTI CULTURE OF WHICH IS CLEAN CATCH AND NOT RELIABLE. SECOND CULTURE IS PENDING. HE HAS NEW HIGH PSA AT 40, HAS LOW T LEVEL AND ALSO HAS SEVERE DEMENTIA ON TOP OF BIPOLAR DISEASE. DR. QUILES SAYS HE HAS VASCULAR DEMENTIA. HE IS NOW SENT TO REHAB. Vital Signs/Physical Exam: Temp Pulse Resp BP Pulse Ox 97.4 F 62 18 123/58 L 95 06/17/19 14:16 06/17/19 14:16 06/17/19 14:16 06/17/19 14:16 06/17/19 14:16 Laboratory Data at Discharge: WBC 8.2 K/uL (4.3-10.9) D 06/17/19 05:38 Hgb 12.7 g/dL (13.6-17.9) L 06/17/19 05:38 Hct 37.8 % (39.6-49.0) L 06/17/19 05:38 Plt Count 48 K/uL (152-406) L* 06/17/19 05:38 PT 12.7 SECONDS (9.5-12.5) H 06/14/19 18:50 INR 1.08 06/14/19 18:50 Sodium 144 mmol/L (136-145) 06/17/19 05:38 Potassium 4.4 mmol/L (3.5-5.1) 06/17/19 05:38 BUN 49 mg/dL (7-18) H 06/17/19 05:38 Creatinine 3.48 mg/dL (0.55-1.3) H 06/17/19 05:38 Glucose 63 mg/dL (74-106) L 06/17/19 05:38 Magnesium 1.9 mg/dL (1.8-2.4) 06/14/19 18:50 Total Bilirubin 0.4 mg/dL (0.2-1.0) 06/14/19 18:50 AST 13 U/L (15-37) L 06/14/19 18:50 ALT 8 U/L (12-78) L 06/14/19 18:50 Alkaline Phosphatase 45 U/L (45-117) 06/14/19 18:50 Troponin I < 0.02 ng/mL (0.0-0.045) 06/15/19 04:21 Home Medications: Aspirin Chewable [Aspirin Chewable*] 81 mg PO DAILY 03/24/19 Calcitrol [Rocaltrol*] 0.25 mg PO DAILY 03/24/19 Divalproex Sodium 1,250 mg PO BEDTIME 03/24/19 Metoprolol Tartrate 50 mg PO BID 03/24/19 Mirtazapine 30 mg PO BEDTIME 03/24/19 Sertraline [Zoloft*] 100 mg PO DAILY 03/24/19 Simvastatin 40 mg PO BEDTIME 03/24/19 Isosorbide Mononitrate [Isosorbide Mononitrate ER] 1 tab PO DAILY 06/17/19 Tamsulosin [Flomax*] 0.4 mg PO BEDTIME 06/17/19
[2019-06-21 21:30] LABS: Immunoglobulin A 120 mg/dL (20-320); Immunoglobulin G 709 mg/dL (600-1540); Immunoglobulin M 81 mg/dL (50-300)
[2019-06-21 22:01] LABS: Albumin, (SPE) 2.8 g/dL (3.8-4.8); Alpha-1-Globulins 0.5 g/dL (0.2-0.3); Alpha-2-Globulins 0.5 g/dL (0.5-0.9); Gamma Globulins 0.7 g/dL (0.8-1.7); INTERPRETATION REPORT
== END 2019-06-17 14:42 | DRG 872 ==
LOC: ER 18:14 → ERHOLD 21:41 → 2ND 22:45 → OBSVTOIN 06-16 14:30
PROVIDERS: ADMIT Internal Medicine; ATTEND Internal Medicine
DX: A41.9 Sepsis, unspecified organism (principal); N39.0 Urinary tract infection, site not specified; N18.4 Chronic kidney disease, stage 4 (severe); N17.9 Acute kidney failure, unspecified; K57.92 Diverticulitis of intestine, part unspecified, without perforation or abscess without bleeding; N25.81 Secondary hyperparathyroidism of renal origin; I12.9 Hypertensive chronic kidney disease with stage 1 through stage 4 chronic kidney disease, or unspecified chronic kidney disease; E29.1 Testicular hypofunction; R97.20 Elevated prostate specific antigen [PSA]; F31.9 Bipolar disorder, unspecified; D69.6 Thrombocytopenia, unspecified; I25.10 Atherosclerotic heart disease of native coronary artery without angina pectoris; K52.9 Noninfective gastroenteritis and colitis, unspecified; R79.89 Other specified abnormal findings of blood chemistry; F01.50 Vascular dementia, unspecified severity, without behavioral disturbance, psychotic disturbance, mood disturbance, and anxiety; F17.210 Nicotine dependence, cigarettes, uncomplicated; Z79.82 Long term (current) use of aspirin; Z95.1 Presence of aortocoronary bypass graft
CPT/HCPCS: 36415; 71045; 74176; 76377; 76770; 76857; 78306; 80048; 80076; 81001; 81003; 81015; 82607; 82728; 82746; 82784; 83010; 83540; 83615; 83735; 83880; 84165; 84238; 84403; 84443; 84466; 84484; 85025; 85044; 85049; 85610; 86038; 86334; 86376; 86803; 86880; 87040; 87077; 87086; 87088; 87186; 93005; 93306; 95819; 96374; 97112; 97116; 97161; 97530; 99285; A9503; G0103; G0378; J0692; J0696; J0744; J1650; J7030

== ENCOUNTER 2019-06-17 08:50 | Inpatient (IN) | payer OTHER ==
[2019-06-17] MEDS ORDERED: CEFEPIME 1 GM/VIAL IV SCH (20:00)
[2019-06-17] MEDS: metroNIDAZOLE 500 MG TABLET PO SCH (20:43)
[2019-06-17] MEDS: TAMSULOSIN 0.4 MG SR CAP PO SCH (20:44)
[2019-06-17] MEDS: METOPROLOL TAR 50 MG TAB PO SCH (20:45)
[2019-06-17] MEDS: MIRTAZAPINE 15 MG TAB PO SCH (20:45)
[2019-06-17] MEDS: ATORVASTATIN 20 MG TAB PO SCH (20:45)
[2019-06-17] MEDS: DIVALPROEX DR 500MG TAB PO SCH (20:48)
[2019-06-17] MEDS: CEFEPIME/SWI 1gm 10 ML IVP SCH (20:48)
[2019-06-17] MEDS: DIVALPROEX DR 250 MG TAB PO SCH (20:52)
[2019-06-17] MEDS ORDERED: PNEUMOCOCCAL VACCINE 0.5 ML IMVAC ONE (21:00)
[2019-06-18] MEDS: HEPARIN 5000 UNIT/ML 1 ML VIAL SQ SCH (06:21)
[2019-06-18] MEDS: CEFEPIME/SWI 1gm 10 ML IVP SCH ×2 (07:26→20:17)
[2019-06-18] MEDS: ACETAMINOPHEN 325 MG TABLET PO PRN ×2 (08:42→20:16)
[2019-06-18] MEDS: METOPROLOL TAR 50 MG TAB PO SCH ×2 (08:43→20:15)
[2019-06-18] MEDS: CALCITROL 0.25 MCG CAP PO SCH (08:44)
[2019-06-18] MEDS: metroNIDAZOLE 500 MG TABLET PO SCH (08:44)
[2019-06-18] MEDS: ISOSORBIDE MONO SR 30 MG TAB PO SCH (08:44)
[2019-06-18] MEDS: SERTRALINE HCL 100 MG TAB PO SCH (08:44)
--- NOTE | 2019-06-18 09:11 | P.PN ---
Date of Service: 06/16/19 (Hematology/Oncology) Late note entry due to [employer] patient observer issues. Pt was seen and examined on 06/16/19 3 pm. Reason for consultation: New onset thrombocytopenia. Patient previously known to me when he came for consultation recently in February 2019 for elevated cea at 23. He is currently admitted in [facility] with s/s of fatigue, wt loss and altered mental status. Complex presentation with multiple issues. Reports feeling much better now. Denies pain. Feels unhappy due to family/marital issues. Exam unremarkable. Vitals reviewed and currently stable. Comfortable lying in bed, getting echo done feels tired. answers to all questions and recognized me. Skin, Hair & Nails: skin appears dry, few ecchymoses on arms. No open wounds. Head: normocephalic, atraumatic. Eyes: anicteric, no injection of conjunctivae. Ears: hearing grossly intact. Nose: nares patent. Throat: no erythema, no exudate. Neck: neck supple, without lymphadenopathy. Respiratory: good respiratory effort, clear to auscultation, no wheezing. Cardiovascular: regular rate and rhythm, no murmurs, no cyanosis. Abdomen: bowel sounds present and equal in all four quadrants, abdomen is soft, nondistended, no masses, no hepatosplenomegaly. Peripheral Vascular: no pedal edema. Musculoskeletal: 5/5 strength through upper extremities. Neurological: AAOx3,appears grossly normal Lymph: no palpable supraclavicular, submental, cervical, axillary, epitrochlear or inguinal Labs and imaging reviewed PROBLEMS: 1. Acute thrombocytopenia (TP) 2. Macrocytosis 3. Acute on CKD 4. Elevated PSA He was noted to have severe acute thrombocytopenia (TP) with plt count [id number] on admission. No s/s excessive bruising or bleeding. Normal range Hb and wbc. Chronic fluctuating macrocytosis. Normal range plt count noted in early May 2019. Positive urine c/s with escherichia coli. Smear eval shows thrombocytopenia, macrocytosis and nucleated rbc, some immature monocytoid cells. No increase in schistocytes. In 07/2018 when he was admitted with E. coli infection, he had similar TP presentation with plt count as low as in the 80K range with spontaneous recuperation. -To keep in mind, work up for elevated cea remains inconclusive with an unremarkable PET in February 2019 (other than avid tonsil for which he was evaluated by Dr Kelly and is under observation). Apparently unremarkable EGD/ colonoscopy. Lost to follow up since then. -Current bone scan unremarkable as well. -PSA was wnl range in 2018 but now significantly elevated at 43. Family history of prostate cancer in Father and brother. -Last lovenox dose was on Jun 15, 2019 but TP noted on admission prior to lovenox. -Prior heparin use in March 2019. No h/o thrombosis. - Unremrkable PT, PTT and fibrinogen. Impression: He will need extensive work up and monitoring for TP given acute presentation, smear findings and multifactorial signs and symptoms. - Acute stress/ with sepsis could be possible etiology at this time. Nucleated rbc, monocytoid cells, though can be seen during acute stress/ sepsis, primary bone marrow etiology to be kept in mind as well. A flow cytometry will be sent and a bone marrow biopsy will be considered if no improvement in counts and if work up results favor BM etiology. - Coags seem to be in reasonable range, though subclinical DIC is a possibility given the acute setting. - Appears to be low probability for ELROY. - No increase in schistocytes to suggest TTP. - Macrocytosis noted. Folate, TSH, B12 wnl range (subnormal B12). Denies Alcohol intake. Chronic valproate use could contribute to elevated MCV. MDS/ primary hematological disorder is a possible DD as well. Recommend close monitoring of plt counts and symptoms with cbc check daily. Urology follow up for the elevated PSA. Followed by Nephrology for CKD. He is being discharged to acute rehab. I have strongly advised to follow up with me outpatient. We will continue to follow up while he is inpatient. Also discussed with Dr De Paz about the same.
[2019-06-18 15:23] LABS: Absolute Lymphocytes (CBC) 1.3 K/uL (0.7-4.9); Basophils % 0.4 % (0-1.3); Hematocrit 33.4 % (39.6-49.0); Lymphocytes % 23.6 % (15.3-44.8); MPV 8.6 fL (7.6-11.3); RBC Red Blood Cell Count 3.16 M/uL (4.33-5.43)
[2019-06-18 15:28] LABS: Albumin 2.2 g/dL (3.4-5.0); Magnesium 1.9 mg/dL (1.8-2.4); Potassium 4.6 mmol/L (3.5-5.1); Prealbumin 14.2 mg/dL (20-40)
[2019-06-18 15:37] LABS: Urine Appearance CLEAR; Urine Bilirubin NEGATIVE (NEG); Urine Blood NEGATIVE (NEG); Urine Color YELLOW; Urine Glucose NEGATIVE (NEG); Urine Protein NEGATIVE (NEG); Urine Urobilinogen 0.2 mg/dL (0.2-1.0)
[2019-06-18 15:46] LABS: Urine Bacteria <20 /HPF (NONE SEEN); Urine Culture Reflex Order REFLEXED; Urine RBC <5 /HPF (NONE SEEN)
[2019-06-18 16:02] LABS: Blood Morphology Comment NOTED (NOT SEEN); Burr Cells 2+; Macrocytosis 2+; Platelet Estimate DECR
[2019-06-18] MEDS: TAMSULOSIN 0.4 MG SR CAP PO SCH (20:14)
[2019-06-18] MEDS: DIVALPROEX DR 500MG TAB PO SCH (20:14)
[2019-06-18] MEDS: MIRTAZAPINE 15 MG TAB PO SCH (20:16)
[2019-06-18] MEDS: DIVALPROEX DR 250 MG TAB PO SCH (20:18)
[2019-06-18] MEDS: ATORVASTATIN 20 MG TAB PO SCH (20:26)
--- NOTE | 2019-06-19 00:48 | PN ---
Subjective: Mr. Armijo is doing well. Has no complaints today. No chest pain , nausea, vomiting. Objective: Vital Signs: Blood pressure 125/78, pulse is 53, temperature 97.6. Neck: No JVD. No carotid bruits. Chest: Clear. Heart: Regular. Abdomen: Guarding. No rebound. No rigidity. Today's blood work, CBC and Chem-7 are pending. Assessment And Plan: 1. Chronic renal failure. He goes to Nephrology. He does not have post obstructive uropathy. . 2. Urinary tract infection. Second culture is pending from April 15. The first culture was clean catch I do not suspect that will be a big concern at this point because he had no symptoms with urinary tract infection at that time. I have been told second culture is pending, but I do not see that in the computer at this point. 3. Bipolar disease. Continue current medications. 4. Vascular dementia. According to Dr. Stacy, there is no benefit of additional treatment for this problem. 5. PSA of 40 can be the cause of prostate cancer or urinary tract infection itself. This will be followed up on the outpatient basis. 6. Hypogonadism. Testosterone is low. I am not being able to treat right now with PSA being high until prostate cancer has been ruled out. I discussed with patient's yesterday. She was happy with the care so far. We have found multiple different problems, which were undiagnosed so far. He has one more issue of low platelets, which is being followed on a daily basis, and Dr. Carisa Andre is on the case for this. TAHMINA/SASHA Voice ID: [id number] Report ID: [id number] KERI
[2019-06-19] MEDS: ACETAMINOPHEN 325 MG TABLET PO PRN ×2 (04:48→19:31)
[2019-06-19] MEDS: HEPARIN 5000 UNIT/ML 1 ML VIAL SQ SCH (05:54)
[2019-06-19] MEDS: CEFEPIME/SWI 1gm 10 ML IVP SCH ×2 (06:34→19:30)
[2019-06-19] MEDS: CALCITROL 0.25 MCG CAP PO SCH (08:28)
[2019-06-19] MEDS: METOPROLOL TAR 50 MG TAB PO SCH ×2 (08:28→19:31)
[2019-06-19] MEDS: SERTRALINE HCL 100 MG TAB PO SCH (08:28)
[2019-06-19] MEDS: ISOSORBIDE MONO SR 30 MG TAB PO SCH (08:28)
--- NOTE | 2019-06-19 16:08 | PN ---
Mr. Kavin Armijo is in the rehab. Subjective: He is feeling a lot better. He is able to communicate very well now. He is cheerful an d has no new complaints. He is starting to walk a little bit. Physical Examination: Vital Signs: His blood pressure 100/70, pulse is 55. Chest: Clear. Heart: Regular. Abdomen: No guarding. No rebound. No rigidity. Extremities: Since his knee surgery, he has had them for a long duration. Laboratory Data: His BUN and creatinine are down to 44/3.22 from close to 5.0 of creatinine and plat elets are up to 53,000. Urine culture; the second urine culture which was supposed to be available y on the last admission is still not available on the culture, but the first culture, which wa s a clean-catch urine, not a straight cath urine, has E coli, which is being treated now, even though it is probably overkill to treat this with cefepime at this point. We have no other choice. The doctors hospital order was not followed properly. Assessment And Plan: 1.Chronic renal failure, currently stable. Continue medications. 2.High PSA. I will follow up on PSA again to see if it is trending down with infection control of t he urine. 3.Hypogonadism cannot be treated as he has high PSA and possibility of cancer in the prostate. The patient's has been updated with this condition. TAHMINA/SASHA Voice ID: [id number] Report ID: [id number]
[2019-06-19] MEDS: DOCUSATE NA/SENNA CONC 1 TAB PO PRN (19:30)
[2019-06-19] MEDS: MIRTAZAPINE 15 MG TAB PO SCH (19:30)
[2019-06-19] MEDS: DIVALPROEX DR 500MG TAB PO SCH (19:30)
[2019-06-19] MEDS: TAMSULOSIN 0.4 MG SR CAP PO SCH (19:31)
[2019-06-19] MEDS: ATORVASTATIN 20 MG TAB PO SCH (19:32)
[2019-06-19] MEDS: DIVALPROEX DR 250 MG TAB PO SCH (19:32)
[2019-06-20] MEDS: HEPARIN 5000 UNIT/ML 1 ML VIAL SQ SCH (06:03)
[2019-06-20] MEDS: CEFEPIME/SWI 1gm 10 ML IVP SCH ×2 (06:17→20:46)
[2019-06-20] MEDS: METOPROLOL TAR 50 MG TAB PO SCH ×2 (08:25→20:44)
[2019-06-20] MEDS: SERTRALINE HCL 100 MG TAB PO SCH (08:25)
[2019-06-20] MEDS: ACETAMINOPHEN 325 MG TABLET PO PRN (08:25)
[2019-06-20] MEDS: ISOSORBIDE MONO SR 30 MG TAB PO SCH (08:26)
[2019-06-20] MEDS: CALCITROL 0.25 MCG CAP PO SCH (08:26)
--- NOTE | 2019-06-20 17:17 | EKG ---
Test Date: 2019-06-20 Test Time: 10:12:09 Hot Molder: JOHN MEASUREMENT RESULTS: Intervals: Rate: 78 LA: 128 QRSD: 82 QT: 388 QTc: 442 [place]: P: 76 LA: 128 QRS: 23 T: 194 INTERPRETIVE STATEMENTS: Normal sinus rhythm ST & T wave abnormality, consider inferolateral ischemia Abnormal ECG Compared to ECG 06/14/2019 19:23:05 No significant changes Electronically Signed On 06-20-19 17:16:32 CDT by Yousif Lara
[2019-06-20] MEDS: DIVALPROEX DR 250 MG TAB PO SCH (20:45)
[2019-06-20] MEDS: DIVALPROEX DR 500MG TAB PO SCH (20:45)
[2019-06-20] MEDS: MIRTAZAPINE 15 MG TAB PO SCH (20:45)
[2019-06-20] MEDS: ATORVASTATIN 20 MG TAB PO SCH (20:46)
[2019-06-20] MEDS: TAMSULOSIN 0.4 MG SR CAP PO SCH (20:46)
[2019-06-21] MEDS: ACETAMINOPHEN 325 MG TABLET PO PRN ×2 (02:43→07:56)
--- NOTE | 2019-06-21 03:37 | PN ---
Subjective: Mr. Armijo is doing very well. Denies any chest pain or vomiting. He is able to sit up in chair, eat his breakfast. His dementia, which is vascular dementia still continues and he asked same questions again and again. Physical Examination: Vital Signs: Blood pressure 144/74, respirations 12, pulse is 66. HEENT: No JVD. No carotid bruits. Chest: Clear. Heart: Irregular. Abdomen: No guarding, no rebound, no rigidity. Extremities: Patient has a limp on one side because of knee surgery in the past , which was complicated. Assessment And Plan: 1. Renal failure, improving gradually. Continue gentle hydration. 2. Thrombocytopenia is improving. 3. Urinary tract infection. Cultures show Cefepime was necessary to be given. which he is on currently and doing well. No signs of postobstructive uropathy and Dr. Henning has seen the patient. He recommended repeating PSA after infection has improved. 4. Hypogonadism, which is a reason for his frequent falls, possibly. Again, if he has prostate cancer, we cannot treat that. TAHMINA/SASHA Voice ID: [id number] Report ID: [id number] KERI
[2019-06-21] MEDS: SERTRALINE HCL 100 MG TAB PO SCH (07:56)
[2019-06-21] MEDS: METOPROLOL TAR 50 MG TAB PO SCH ×2 (07:56→20:57)
[2019-06-21] MEDS: ISOSORBIDE MONO SR 30 MG TAB PO SCH (07:56)
[2019-06-21] MEDS: CALCITROL 0.25 MCG CAP PO SCH (07:56)
[2019-06-21] MEDS: CEFEPIME/SWI 1gm 10 ML IVP SCH (08:00)
[2019-06-21] MEDS: HEPARIN 5000 UNIT/ML 1 ML VIAL SQ SCH (08:53)
[2019-06-21] MEDS: TAMSULOSIN 0.4 MG SR CAP PO SCH (20:58)
[2019-06-21] MEDS: ATORVASTATIN 20 MG TAB PO SCH (20:58)
[2019-06-21] MEDS: MELATONIN 3 MG TABLET PO PRN (20:58)
[2019-06-21] MEDS: DIVALPROEX DR 500MG TAB PO SCH (20:58)
[2019-06-21] MEDS: DIVALPROEX DR 250 MG TAB PO SCH (20:58)
[2019-06-21] MEDS: MIRTAZAPINE 15 MG TAB PO SCH (20:58)
[2019-06-22 01:02] LABS: Absolute Lymphocytes (CBC) 2.4 K/uL (0.7-4.9); Basophils % 0.6 % (0-1.3); Hematocrit 32.3 % (39.6-49.0); Lymphocytes % 38.7 % (15.3-44.8); MPV 7.6 fL (7.6-11.3); RBC Red Blood Cell Count 3.07 M/uL (4.33-5.43)
--- NOTE | 2019-06-22 01:53 | PN ---
Subjective: He is doing a lot better. Denies any chest pain, nausea, vomiting. He is able to ambul ate. Physical Examination: Vital Signs: Blood pressure is 90/60, pulse is 59. HEENT: No JVD. No carotid bruits. CHEST: Clear. Heart: Regular. Laboratory Examination: To be done the day after tomorrow. His last BUN and creatinine showed impro vement. Platelets of 53,[address] of improvement from 42,000. Assessment And Plan: 1.Urinary tract infection with sepsis. Platelets have improved. Continue IV cefepime. He does not have retention of urine. Dr. Henning has seen him and his postvoid residual is normal. Continue cefe pime to complete the course. 2.PSA is improved down to 20 from 40 with treatment of urinary tract infection. TAHMINA/SASHA Voice ID: [id number] Report ID: [id number]
[2019-06-22 02:05] LABS: Blood Morphology Comment NOTED (NOT SEEN); Burr Cells 1+; Platelet Estimate DECR; Polychromasia 1+
[2019-06-22 06:33] LABS: Potassium 5.4 mmol/L (3.5-5.1)
[2019-06-22 06:36] LABS: Absolute Lymphocytes (CBC) 2.6 K/uL (0.7-4.9); Basophils % 0.7 % (0-1.3); Hematocrit 31.9 % (39.6-49.0); Lymphocytes % 37.5 % (15.3-44.8); MPV 7.8 fL (7.6-11.3); RBC Red Blood Cell Count 3.04 M/uL (4.33-5.43)
[2019-06-22] MEDS: ACETAMINOPHEN 325 MG TABLET PO PRN ×2 (08:08→23:08)
[2019-06-22] MEDS: SERTRALINE HCL 100 MG TAB PO SCH (08:08)
[2019-06-22] MEDS: ISOSORBIDE MONO SR 30 MG TAB PO SCH (08:08)
[2019-06-22] MEDS: CALCITROL 0.25 MCG CAP PO SCH (08:09)
[2019-06-22] MEDS: METOPROLOL TAR 50 MG TAB PO SCH ×2 (08:10→19:48)
[2019-06-22] MEDS: HEPARIN 5000 UNIT/ML 1 ML VIAL SQ SCH (09:00)
[2019-06-22] MEDS: CEFEPIME/SWI 1gm 10 ML IVP SCH (09:00)
[2019-06-22] MEDS: ATORVASTATIN 20 MG TAB PO SCH (19:46)
[2019-06-22] MEDS: MIRTAZAPINE 15 MG TAB PO SCH (19:46)
[2019-06-22] MEDS: MELATONIN 3 MG TABLET PO PRN (19:46)
[2019-06-22] MEDS: DIVALPROEX DR 500MG TAB PO SCH (19:47)
[2019-06-22] MEDS: DIVALPROEX DR 250 MG TAB PO SCH (19:47)
[2019-06-22] MEDS: TAMSULOSIN 0.4 MG SR CAP PO SCH (19:47)
[2019-06-22] MEDS: DOCUSATE NA/SENNA CONC 1 TAB PO PRN (19:50)
--- NOTE | 2019-06-23 01:02 | PN ---
Subjective: Mr. Armijo is doing lot better. Also denies any chest pain, nausea, vomiting. He is ab le to sit up in a large area and eat with other patients. Able to communicate well. Physical Examination: Vital Signs: Blood pressure 128/74, pulse is 80. HEENT: No JVD. No carotid bruits. Chest: Clear. Heart: Regular. Abdomen: No guarding, no rebound, no rigidity. Laboratory Data: White count 6.9, hematocrit 31, platelets up to 67,000 from 40,000. Potassium 5.4, BUN 56, creatinine 2.27, stable at this point. 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 2.Urinary tract infection with improvement on cefepime. Must discontinue antibiotic like recommende d in 5 days after being in rehab. 3.Platelet count to be followed on a daily basis. Avoid Lovenox at this point. We will follow plat elets routinely. 4.Hyperkalemia. Follow up on this and avoid high potassium diet. Medications reviewed. TAHMINA/SASHA Voice ID: [id number] Report ID: [id number]
[2019-06-23 06:13] LABS: Basophils % 0.5 % (0-1.3); Hematocrit 31.4 % (39.6-49.0); Lymphocytes % 42.5 % (15.3-44.8); MPV 8.7 fL (7.6-11.3); RBC Red Blood Cell Count 2.99 M/uL (4.33-5.43)
[2019-06-23 06:42] LABS: Albumin 2.2 g/dL (3.4-5.0); Prealbumin 19.3 mg/dL (20-40)
[2019-06-23 06:45] LABS: Potassium 5.8 mmol/L (3.5-5.1)
[2019-06-23] MEDS ORDERED: SOD POLYSTYREN SUL 15 GM/60 ML UCUP PO ONE (06:48)
[2019-06-23] MEDS: CALCITROL 0.25 MCG CAP PO SCH (07:54)
[2019-06-23] MEDS: ISOSORBIDE MONO SR 30 MG TAB PO SCH (07:54)
[2019-06-23] MEDS: SERTRALINE HCL 100 MG TAB PO SCH (07:54)
[2019-06-23] MEDS: METOPROLOL TAR 50 MG TAB PO SCH ×2 (07:55→20:40)
[2019-06-23] MEDS: ACETAMINOPHEN 325 MG TABLET PO PRN ×2 (07:55→20:43)
[2019-06-23] MEDS: HEPARIN 5000 UNIT/ML 1 ML VIAL SQ SCH (08:54)
[2019-06-23] MEDS: DIVALPROEX DR 250 MG TAB PO SCH (20:40)
[2019-06-23] MEDS: DIVALPROEX DR 500MG TAB PO SCH (20:40)
[2019-06-23] MEDS: MIRTAZAPINE 15 MG TAB PO SCH (20:41)
[2019-06-23] MEDS: PROMOD 30 ML DOSE PO SCH (20:41)
[2019-06-23] MEDS: MELATONIN 3 MG TABLET PO PRN (20:41)
[2019-06-23] MEDS: ATORVASTATIN 20 MG TAB PO SCH (20:41)
[2019-06-23] MEDS: TAMSULOSIN 0.4 MG SR CAP PO SCH (20:41)
--- NOTE | 2019-06-24 02:39 | PN ---
Subjective: Mr. Armijo is doing well. Denies any chest pain, nausea, or vomiting. Objective: Vital Signs: Blood pressure 121/68, temperature 97.2. Chest: Clear. Heart: Regular. Abdomen: No guarding, no rebound, no rigidity. Laboratory Data: Now, at this point, his platelets have improved to 83,000, down from 48,000 before. Otherwise, CBC is stable and his potassium is down from 5.8 to 4.9 today. He was given a Kayexalat e to improve his potassium. He has advised not to have to be on a low-potassium diet from now onwards . BUN 50; creatinine 3.0, improved compared to before. Assessment And Plan: 1.Urinary tract infection. Patient has received enough antibiotics at this point, cefepime and so f ar culture of the final urine has no growth. 2.Renal failure. Current baseline creatinine of 3.0. 3.Hyperkalemia, improved with Kayexalate. Prognosis is overall guarded. RVD/MODL Voice ID: [id number] Report ID: [id number]
[2019-06-24] MEDS: FE SULF/FA/VIT B COMP & C TAB PO SCH (08:07)
[2019-06-24] MEDS: FERROUS SULFATE 325 MG TAB PO SCH (08:07)
[2019-06-24] MEDS: SERTRALINE HCL 100 MG TAB PO SCH (08:07)
[2019-06-24] MEDS: CALCITROL 0.25 MCG CAP PO SCH (08:08)
[2019-06-24] MEDS: ISOSORBIDE MONO SR 30 MG TAB PO SCH (08:08)
[2019-06-24] MEDS: METOPROLOL TAR 50 MG TAB PO SCH ×2 (08:08→20:28)
[2019-06-24] MEDS: PROMOD 30 ML DOSE PO SCH ×2 (08:08→20:29)
[2019-06-24] MEDS: HEPARIN 5000 UNIT/ML 1 ML VIAL SQ SCH (09:20)
--- NOTE | 2019-06-24 09:46 | P.RH.PN ---
Estimated Length of Stay: 12 Expected Discharge Date: 06/28/19 Discharge Disposition Plan: Home Family Support: Yes Senior Care Goal: Mobility, Transfers, Self Care Vital Signs: Last Vital Signs Temp 97.2 F 06/23/19 18:40 Pulse 64 06/24/19 08:08 Resp 18 06/23/19 18:40 BP 103/62 06/24/19 08:08 Pulse Ox 97 06/23/19 18:40 Laboratory: Laboratory Last Values WBC 7.2 K/uL (4.3-10.9) 06/23/19 05:44 RBC 2.99 M/uL (4.33-5.43) L 06/23/19 05:44 Hgb 10.6 g/dL (13.6-17.9) L 06/23/19 05:44 Hct 31.4 % (39.6-49.0) L 06/23/19 05:44 MCV 104.8 fL (80-100) H 06/23/19 05:44 MCH 35.5 pg (27.0-35.0) H 06/23/19 05:44 MCHC 33.9 g/dL (32.0-36.0) 06/23/19 05:44 RDW 17.2 % (12.1-15.2) H 06/23/19 05:44 Plt Count 83 K/uL (152-406) L D 06/23/19 05:44 MPV 8.7 fL (7.6-11.3) D 06/23/19 05:44 Plt Distribution Width Cancelled 06/23/19 05:00 Absolute Nucleated RBC Cancelled 06/23/19 05:00 Neutrophils % 40.4 % (41.7-73.7) L 06/23/19 05:44 Lymphocytes % 42.5 % (15.3-44.8) 06/23/19 05:44 Monocytes % 15.4 % (3.3-12.3) H 06/23/19 05:44 Eosinophils % 1.2 % (0-4.4) 06/23/19 05:44 Basophils % 0.5 % (0-1.3) 06/23/19 05:44 Nucleated RBC % Cancelled 06/23/19 05:00 Absolute Neutrophils 2.9 K/uL (1.8-8.0) 06/23/19 05:44 Segmented Neutrophils 16 % (40-80) L 06/22/19 00:32 Band Neutrophils 2 % (0-1) H 06/22/19 00:32 Absolute Lymphocytes 3.0 K/uL (0.7-4.9) 06/23/19 05:44 Lymphocytes 46 % (15-42) H 06/22/19 00:32 Monocytes 9 % (0-10) 06/22/19 00:32 Absolute Monocytes 1.1 K/uL (0.1-1.3) 06/23/19 05:44 Eosinophils 4 % (0-3) H 06/22/19 00:32 Absolute Eosinophils 0.1 K/uL (0-0.5) 06/23/19 05:44 Basophils 2 % (0-1) H 06/18/19 14:50 Absolute Basophils 0.0 K/uL (0-0.5) 06/23/19 05:44 Nucleated RBCs 4 /100WBC 06/22/19 00:32 Diff Path Review Cancelled 06/23/19 05:00 Reactive Lymphocytes 23 % 06/22/19 00:32 Polychromasia 1+ 06/22/19 00:32 Macrocytosis 2+ 06/18/19 14:50 [place] Cells 1+ 06/22/19 00:32 Morphology Comment Noted (NOT SEEN) 06/22/19 00:32 Sodium 143 mmol/L (136-145) 06/23/19 05:44 Potassium 4.9 mmol/L (3.5-5.1) 06/23/19 16:25 Chloride 116 mmol/L (98-107) H 06/23/19 05:44 Carbon Dioxide 20 mmol/L (21-32) L 06/23/19 05:44 BUN 50 mg/dL (7-18) H 06/23/19 05:44 Creatinine 3.03 mg/dL (0.55-1.3) H 06/23/19 05:44 Estimated GFR 21 mL/min (=/>90) L 06/23/19 05:44 Glucose 69 mg/dL (74-106) L 06/23/19 05:44 POC Glucose 57 mg/dl (65-120) L 06/18/19 07:06 Calcium 8.6 mg/dL (8.5-10.1) 06/23/19 05:44 Magnesium 2.0 mg/dL (1.8-2.4) 06/23/19 05:44 Albumin 2.2 g/dL (3.4-5.0) L 06/23/19 05:44 Prealbumin 19.3 mg/dL (20-40) L 06/23/19 05:44 PSA Screen 21.50 ng/mL (0-4.00) H 06/20/19 22:13 Urine Color Yellow 06/18/19 15:15 Urine Appearance Clear 06/18/19 15:15 Urine pH 6.0 (5.0-7.0) 06/18/19 15:15 Ur Specific [place] 1.010 (1.005-1.030) 06/18/19 15:15 Urine Ketones Negative (NEG) 06/18/19 15:15 Urine Blood Negative (NEG) 06/18/19 15:15 Urine Nitrite Negative (NEG) 06/18/19 15:15 Urine Bilirubin Negative (NEG) 06/18/19 15:15 Urine Urobilinogen 0.2 mg/dL (0.2-1.0) 06/18/19 15:15 Ur Leukocyte Esterase 1+ (NEG) H 06/18/19 15:15 Urine RBC <5 /HPF (NONE SEEN) 06/18/19 15:15 Urine WBC 10-20 /HPF (<5) H 06/18/19 15:15 Ur Squamous Epith Cells <5 /HPF (NONE SEEN) 06/18/19 15:15 Urine Bacteria <20 /HPF (NONE SEEN) 06/18/19 15:15 Urine Culture Reflexed Reflexed 06/18/19 15:15 Urine Glucose Negative (NEG) 06/18/19 15:15 Urine Total Protein Negative (NEG) 06/18/19 15:15 Weight: 155 lb Wound Present: No Negative Pressure Wound Therapy Present: No Physician Update: Labs reviewed. 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 He is making good progress with ambulation using a cane. He is improving cognitively but has poor hearing. He is impulsive with issues of safety awareness. Medical Issues: Patient is always continent with bladder and bowel. Pain Issues: Tylenol 650mg Q4H PO PRN Functional Improvement: Patient has been progressing well w/ therapy and is currently SBA w/ stand pivot transfers, gait tx., and stairs. Patient continues to allow RW to travel too great a distance when returning to . Functional Improvement Occupational Therapy: pt can benifit with further therapy to address pt's overall weakness in the UE/LE's strength. Cont to educate and train pt on energy conservation tecnhiques and safety due to pt's impulsivenss and safety. cont to increase pt's static standing balance for clothing and for functional transfers.cont with the POC and the goals by the supervising OTR Speech Therapy Update: Patient has made significant progress in speech therapy. At this time, he presents with minimal deficits, particularly in reduced auditory comprehension 2' hearing loss. Patient requires min repetition to comprehend complex information. Patient is at MIN A for Auditory Comprehension , MOD I for Verbal Expression, SUPV to MOD I for Social Interaction, SUPV for Problem Solving, and SUPV to MOD I for Memory. Summary: Patient's care plan and terminal makeup operator goals have been reviewed and revised as necessary. Please see the Rehabilitation Signature page for all necessary signatures.
--- NOTE | 2019-06-24 11:39 | P.PN ---
Date of Service: 06/24/19 (Hem/Onc) Hematology note: Please see prior progress note from Hematology on 06/18/19 for details . Pt currently in Rehab. Labs reviewed and plt counts improving. Plt count 83,000. Hep plt factor 4 ab weakly positive but TUNG negative Flow cytometry showed normal myeloid maturation, no blasts. Increased T cell CD4 /CD8 ratio without significant aberrancy which might be a non specific finding ( seen in reactive and also lymphoproliferative disorders). Nucleated RBC on smear. Folate low at 2.9; Iron panel: 23/9.5%/ 250 Recommendations: Continue to monitor cbc. c/w iron supplementation ferrous sulphate 325mg PO bid and folic acid 1 mg PO daily Pt should follow up with Hematology as outpatient once discharged for further evaluation and work up as indicated. Urology follow up for elevated PSA. Please do not hesitate to contact Hematology if any concerns, new findings or cytopenias.
[2019-06-24] MEDS: DIVALPROEX DR 500MG TAB PO SCH (20:27)
[2019-06-24] MEDS: MIRTAZAPINE 15 MG TAB PO SCH (20:27)
[2019-06-24] MEDS: ATORVASTATIN 20 MG TAB PO SCH (20:28)
[2019-06-24] MEDS: TAMSULOSIN 0.4 MG SR CAP PO SCH (20:28)
[2019-06-24] MEDS: DIVALPROEX DR 250 MG TAB PO SCH (20:30)
--- NOTE | 2019-06-25 04:05 | PN ---
Subjective: Mr. Armijo is doing a lot better. Denies any chest pain, nausea, vomiting, able to comm unicate well with the physical therapy. Physical Examination: Vital Signs: Blood pressure 116/74, pulse is 77. HEENT: No JVD. No carotid bruits. Chest: Clear. Heart: Regular. Laboratory Data: Yesterday stable, as described yesterday. Assessment And Plan: 1.Pyelonephritis, chronic renal failure, currently stable, finished the antibiotics, asymptomatic. 2.Generalized debility. Occupational and physical therapy. 3.Elevated PSA most likely could be infection related because it came down from 40 down to 20 with I V antibiotics. 4.Low testosterone will be treated later once we make sure that he does not have prostate cancer. H e will be seeing Dr. Henning on outpatient basis. TAHMINA/SASHA Voice ID: [id number] Report ID: [id number]
[2019-06-25] MEDS: ACETAMINOPHEN 325 MG TABLET PO PRN (05:18)
[2019-06-25 05:38] VITALS: BMI 24.2
[2019-06-25] MEDS: HEPARIN 5000 UNIT/ML 1 ML VIAL SQ SCH (06:14)
[2019-06-25 07:06] LABS: Absolute Lymphocytes (CBC) 1.9 K/uL (0.7-4.9); Basophils % 0.2 % (0-1.3); Hematocrit 36.5 % (39.6-49.0); Lymphocytes % 17.6 % (15.3-44.8); MPV 7.4 fL (7.6-11.3); RBC Red Blood Cell Count 3.41 M/uL (4.33-5.43)
[2019-06-25 07:07] LABS: Potassium 4.1 mmol/L (3.5-5.1)
[2019-06-25] MEDS: SERTRALINE HCL 100 MG TAB PO SCH (07:42)
[2019-06-25] MEDS: FERROUS SULFATE 325 MG TAB PO SCH (07:42)
[2019-06-25] MEDS: ISOSORBIDE MONO SR 30 MG TAB PO SCH (07:42)
[2019-06-25] MEDS: CALCITROL 0.25 MCG CAP PO SCH (07:42)
[2019-06-25] MEDS: METOPROLOL TAR 50 MG TAB PO SCH ×2 (07:43→20:13)
[2019-06-25] MEDS: FE SULF/FA/VIT B COMP & C TAB PO SCH (07:43)
[2019-06-25] MEDS: PROMOD 30 ML DOSE PO SCH ×2 (07:43→20:12)
[2019-06-25 10:09] LABS: Blood Morphology Comment NOTED (NOT SEEN); Macrocytosis 1+; Platelet Estimate DECR
--- NOTE | 2019-06-25 15:47 | PN ---
Subjective: Doing really well. Denies chest pain, nausea, vomiting. He wants to go home. Has no n ew complaints. He is mentally doing a lot better. Physical Examination: Vital Signs: Blood pressure 119/68, pulse is 78. HEENT: No JVD. No carotid bruits. Chest: Clear. Heart: Regular. Abdomen: No guarding. No rebound. No rigidity. Extremities: His right leg is actually slightly longer than the left one since the surgery, which wa s done for right knee repair. Lab Examination: On today's lab, BUN 52, creatinine 2.62, which has improved and potassium is 4.1, w hich is controlled. Assessment And Plan: 1.Urinary tract infection. Cleared on cefepime IV. He is off antibiotics. 2.Baseline renal failure. His numbers are improving constantly, 52/2.62, which is a great improveme nt compared to 5.0 in the past. He had acute on chronic renal failure, which has improved now. 3.Prostatitis or urinary tract infection could cause raised PSA. We will follow up on this problem. 4.Hypogonadism. Testosterone treatment depends on presence or absence of prostate cancer. RVD/MODL Voice ID: [id number] Report ID: [id number]
[2019-06-25] MEDS: DIVALPROEX DR 250 MG TAB PO SCH (20:13)
[2019-06-25] MEDS: TAMSULOSIN 0.4 MG SR CAP PO SCH (20:13)
[2019-06-25] MEDS: DIVALPROEX DR 500MG TAB PO SCH (20:13)
[2019-06-25] MEDS: MIRTAZAPINE 15 MG TAB PO SCH (20:14)
[2019-06-25] MEDS: MELATONIN 3 MG TABLET PO PRN (20:14)
[2019-06-25] MEDS: ATORVASTATIN 20 MG TAB PO SCH (20:14)
[2019-06-26] MEDS: ACETAMINOPHEN 325 MG TABLET PO PRN ×3 (00:50→15:46)
[2019-06-26] MEDS: HEPARIN 5000 UNIT/ML 1 ML VIAL SQ SCH (06:02)
[2019-06-26] MEDS: FERROUS SULFATE 325 MG TAB PO SCH (08:18)
[2019-06-26] MEDS: SERTRALINE HCL 100 MG TAB PO SCH (08:18)
[2019-06-26] MEDS: FE SULF/FA/VIT B COMP & C TAB PO SCH (08:18)
[2019-06-26] MEDS: CALCITROL 0.25 MCG CAP PO SCH (08:18)
[2019-06-26] MEDS: ISOSORBIDE MONO SR 30 MG TAB PO SCH (08:18)
[2019-06-26] MEDS: PROMOD 30 ML DOSE PO SCH ×2 (08:19→19:44)
[2019-06-26] MEDS: METOPROLOL TAR 50 MG TAB PO SCH ×2 (08:19→19:43)
[2019-06-26] MEDS: LIDOCAINE 4% PATCH TOP SCH (10:50)
--- NOTE | 2019-06-26 12:24 | PN ---
Subjective: Doing great. Denies any chest pain. Has some back pain with the bed being very soft ac cording to him. He is on actually air mattress right now to prevent bedsores. Otherwise, he is stab le. Physical Examination: Vital Signs: Blood pressure 116/67, pulse is 64. HEENT: No JVD. No carotid bruits. Chest: Clear. Heart: Regular. Abdomen: Soft. Extremities: Leg examination, history of longer right leg from the previous surgery. Laboratory Examination: Next lab is pending. Yesterday's lab showed BUN and creatinine of 52 and 2. 6. Assessment And Plan: 1.Back pain. Start lidocaine patch topical. Remove the air mattress, which is too soft for him. 2.Renal failure, stable. 3.Urinary tract infection is cleared. 4.Other problems as listed before. TAHMINA/SASHA Voice ID: [id number] Report ID: [id number]
[2019-06-26] MEDS: DIVALPROEX DR 250 MG TAB PO SCH (20:25)
[2019-06-26] MEDS: DIVALPROEX DR 500MG TAB PO SCH (20:25)
[2019-06-26] MEDS: MIRTAZAPINE 15 MG TAB PO SCH (20:26)
[2019-06-26] MEDS: MELATONIN 3 MG TABLET PO PRN (20:26)
[2019-06-26] MEDS: ATORVASTATIN 20 MG TAB PO SCH (20:26)
[2019-06-26] MEDS: TAMSULOSIN 0.4 MG SR CAP PO SCH (20:26)
[2019-06-27] MEDS: ACETAMINOPHEN 325 MG TABLET PO PRN ×3 (03:12→19:37)
[2019-06-27] MEDS: HEPARIN 5000 UNIT/ML 1 ML VIAL SQ SCH ×2 (06:09→18:04)
[2019-06-27] MEDS: METOPROLOL TAR 50 MG TAB PO SCH ×2 (08:00→19:36)
[2019-06-27] MEDS: ISOSORBIDE MONO SR 30 MG TAB PO SCH (08:00)
[2019-06-27] MEDS: PROMOD 30 ML DOSE PO SCH ×2 (08:00→19:36)
[2019-06-27] MEDS: FERROUS SULFATE 325 MG TAB PO SCH (08:02)
[2019-06-27] MEDS: FE SULF/FA/VIT B COMP & C TAB PO SCH (08:03)
[2019-06-27] MEDS: CALCITROL 0.25 MCG CAP PO SCH (08:04)
[2019-06-27] MEDS: SERTRALINE HCL 100 MG TAB PO SCH (08:04)
[2019-06-27] MEDS: LACTOBACILLUS/ACIDOPHILUS TAB PO SCH ×3 (08:43→19:35)
[2019-06-27] MEDS: LOPERAMIDE HCL 2 MG CAPSULE PO PRN ×2 (09:59→13:37)
[2019-06-27] MEDS: LIDOCAINE 4% PATCH TOP SCH (10:56)
[2019-06-27 14:35] LABS: C.diff Antigen/Toxin Ag pos : Tox pos (NEG : NEG)
[2019-06-27] MEDS: VANCOMYCIN ORAL SOLN 250 MG/5 ML OSYR PO SCH (15:36)
[2019-06-27] MEDS: MIRTAZAPINE 15 MG TAB PO SCH (19:34)
[2019-06-27] MEDS: TAMSULOSIN 0.4 MG SR CAP PO SCH (19:35)
[2019-06-27] MEDS: MELATONIN 3 MG TABLET PO PRN (19:35)
[2019-06-27] MEDS: DIVALPROEX DR 500MG TAB PO SCH (19:35)
[2019-06-27] MEDS: DIVALPROEX DR 250 MG TAB PO SCH (19:35)
[2019-06-27] MEDS: ATORVASTATIN 20 MG TAB PO SCH (19:36)
[2019-06-27 21:15] LABS: Basophils % 0.2 % (0-1.3); Hematocrit 33.7 % (39.6-49.0); Lymphocytes % 9.8 % (15.3-44.8); MPV 7.6 fL (7.6-11.3); RBC Red Blood Cell Count 3.18 M/uL (4.33-5.43)
[2019-06-27 21:24] LABS: Magnesium 1.6 mg/dL (1.8-2.4); Potassium 3.8 mmol/L (3.5-5.1)
[2019-06-27 21:57] LABS: Blood Morphology Comment NOTED (NOT SEEN); Macrocytosis 1+; Platelet Estimate ADEQ; Toxic Granulation 1+
--- NOTE | 2019-06-28 02:17 | PN ---
Subjective: Mr. Armioj is doing well except for today. He has diarrhea for the last 24 hours. I or dered a C diff culture, which is positive upon nurses' calling this afternoon. Physical Examination: Vital Signs: Blood pressure was 90 to 104 systolic. His blood pressure has gone down to a certain d egree because of diarrhea. Temperature is 100.4. General: Clinically, he is slightly dehydrated. Chest: Clear. Heart: Regular. Abdomen: No guarding, no rebound, no rigidity. Assessment And Plan: 1.Clostridium difficile colitis, new problem. He has been off antibiotics for a few days now. He h as been on vancomycin oral, a medication for Clostridium difficile colitis. 2.He has history of bipolar disease, controlled. 3.History of renal failure, which is controlled at this point. He will be getting blood work tomorrow again to see how his electrolytes are with diarrhea that curre ntly he is having. TAHMINA/MODL Voice ID: [id number] Report ID: [id number]
[2019-06-28] MEDS: VANCOMYCIN ORAL SOLN 250 MG/5 ML OSYR PO SCH ×4 (05:04→17:16)
[2019-06-28] MEDS: HEPARIN 5000 UNIT/ML 1 ML VIAL SQ SCH ×2 (06:05→18:03)
[2019-06-28] MEDS: ACETAMINOPHEN 325 MG TABLET PO PRN ×2 (07:21→19:33)
[2019-06-28] MEDS: FERROUS SULFATE 325 MG TAB PO SCH (07:25)
[2019-06-28] MEDS: SERTRALINE HCL 100 MG TAB PO SCH (07:25)
[2019-06-28] MEDS: LACTOBACILLUS/ACIDOPHILUS TAB PO SCH ×3 (07:25→19:33)
[2019-06-28] MEDS: FE SULF/FA/VIT B COMP & C TAB PO SCH (07:25)
[2019-06-28] MEDS: ISOSORBIDE MONO SR 30 MG TAB PO SCH (07:26)
[2019-06-28] MEDS: METOPROLOL TAR 50 MG TAB PO SCH ×2 (07:26→19:34)
[2019-06-28] MEDS: CALCITROL 0.25 MCG CAP PO SCH (07:27)
[2019-06-28] MEDS: PROMOD 30 ML DOSE PO SCH ×2 (07:27→19:34)
[2019-06-28] MEDS ORDERED: MAGNESIUM OXIDE 400 MG TAB PO SCH (08:00)
[2019-06-28] MEDS: LIDOCAINE 4% PATCH TOP SCH (10:04)
--- NOTE | 2019-06-28 16:51 | RAD REPORT ---
EXAM DESCRIPTION: CT - Abdomen Pelvis Wo Contrast - 06/28/2019 4:36 pm CLINICAL HISTORY: R/O Colitis COMPARISON: [facility] Protocol dated 06/14/2019; CT May 2018 . TECHNIQUE: Axial [address] imaging of the abdomen and pelvis was performed without IV contrast. No IV contrast was given because of allergy, abnormal renal function, patient refusal or physician re quest. Oral contrast was given. All CT scans are performed using dose optimization technique as appropriate and may include automated exposure control or mA/KV adjustment according to patient size. FINDINGS: No suspicious findings in the lung bases. The liver, spleen and pancreas show no suspicious findings on non-contrast imaging. Cholecystectomy c lips are present. No hydronephrosis or suspicious renal mass. The round hypodense and hyperdense masses at the lower po le left kidney are stable back to May 2018. No significant adrenal finding. Isodense renal mass es and pyelonephritis cannot be excluded in the absence of IV contrast. Urinary bladder is fully cont racted. Pitts appear prominent even for a contracted state. No bladder calculus. A discrete bladder w all mass is not seen. No stomach or small bowel acute finding. Right-side of the colon and transverse colon show no suspici ous findings. The entire length of the descending colon shows circumferential wall thickening and laotsha ma. There is stranding in the adjacent fat. Patient has diverticulosis in this region. Sigmoid colon is quite tortuous and redundant extending into the left anterior upper abdomen. An acute process of t he colon and rectum not seen. Oral contrast has reached the distal rectum. Diverticulitis is favored over infectious colitis. Mass etiology is not suspected. No abscess or aurea gent component seen. No free air or free fluid. No inflammatory stranding elsewhere. No hernia, mass or bulky lymphadenopathy. Advanced bony degenerative change present. No pathologic bone process. Vascular assessment is limited . Prominent common iliac arteries are seen. IMPRESSION: The entire length of the descending colon shows circumferential wall thickening and syed a. There is inflammatory stranding in the adjacent fat. No abscess, free air or surgically emergent c omponent. Given the presence of diverticulosis, acute diverticulitis would be favored over colitis. Ischemic bowel injury is not suspected. No other acute GI process seen. Urinary bladder pitts appear thickened but this is difficult to assess given the fully contracted sta te. Full assessment is limited is the absence of IV contrast.
[2019-06-28] MEDS: MELATONIN 3 MG TABLET PO PRN (19:32)
[2019-06-28] MEDS: DIVALPROEX DR 250 MG TAB PO SCH (19:32)
[2019-06-28] MEDS: TAMSULOSIN 0.4 MG SR CAP PO SCH (19:32)
[2019-06-28] MEDS: ATORVASTATIN 20 MG TAB PO SCH (19:32)
[2019-06-28] MEDS: DIVALPROEX DR 500MG TAB PO SCH (19:32)
[2019-06-28] MEDS: MIRTAZAPINE 15 MG TAB PO SCH (19:32)
[2019-06-28] MEDS: MAGNESIUM OXIDE 400 MG TAB PO SCH (19:33)
--- NOTE | 2019-06-28 23:50 | PN ---
Subjective: Mr. Armijo doing lot better than yesterday. His blood pressure improved to 107 systolic instead of 90 systolic. His diarrhea has resolved overnight he says. Physical Examination: Vital Signs: Blood pressure 107/60. Chest: Clear. Heart: Regular. Abdomen: No guarding, no rebound, no rigidity. Laboratory Data: White count 5000, which is because of C diff colitis. Dr. Stacy did a CT abdome n, which showed diverticulitis but actually that is not the correct diagnosis. We should be treating this as C diff and avoid other antibiotics, which can make C. diff worse. Assessment And Plannin.Clostridium difficile colitis. Ignore the diagnosis of diverticulitis at this point because he is on vancomycin p.o. sometime inflammation of colon will be visualized as diverticulitis, not knowing the exact source of infection by radiologist. Continue vancomycin 125 mg p.o. q.6 hours for 10 days. Already, I am seeing improvement in last few days or few doses of treatment just about less than a day. 2.White count should improve everyday. We will do a lab work everyday at this point. TAHMINA/SASHA Voice ID: [id number] Report ID: [id number]
[2019-06-29] MEDS: VANCOMYCIN ORAL SOLN 250 MG/5 ML OSYR PO SCH ×5 (00:08→23:14)
[2019-06-29 06:05] LABS: Absolute Lymphocytes (CBC) 1.9 K/uL (0.7-4.9); Basophils % 0.3 % (0-1.3); Hematocrit 28.7 % (39.6-49.0); Lymphocytes % 16.1 % (15.3-44.8); MPV 7.6 fL (7.6-11.3); RBC Red Blood Cell Count 2.74 M/uL (4.33-5.43)
[2019-06-29 06:21] LABS: Magnesium 2.1 mg/dL (1.8-2.4); Potassium 3.8 mmol/L (3.5-5.1)
[2019-06-29] MEDS: HEPARIN 5000 UNIT/ML 1 ML VIAL SQ SCH ×2 (07:30→18:12)
[2019-06-29] MEDS: FE SULF/FA/VIT B COMP & C TAB PO SCH (08:00)
[2019-06-29] MEDS: PROMOD 30 ML DOSE PO SCH ×2 (08:00→19:46)
[2019-06-29] MEDS: MAGNESIUM OXIDE 400 MG TAB PO SCH ×2 (08:00→20:21)
[2019-06-29] MEDS: LIDOCAINE 4% PATCH TOP SCH (08:43)
[2019-06-29] MEDS: SERTRALINE HCL 100 MG TAB PO SCH (08:44)
[2019-06-29] MEDS: LACTOBACILLUS/ACIDOPHILUS TAB PO SCH ×3 (08:44→20:21)
[2019-06-29] MEDS: FERROUS SULFATE 325 MG TAB PO SCH (08:44)
[2019-06-29] MEDS: CALCITROL 0.25 MCG CAP PO SCH (08:44)
[2019-06-29] MEDS: METOPROLOL TAR 50 MG TAB PO SCH ×2 (10:42→19:45)
[2019-06-29] MEDS: ISOSORBIDE MONO SR 30 MG TAB PO SCH (12:23)
[2019-06-29] MEDS: TAMSULOSIN 0.4 MG SR CAP PO SCH (20:21)
[2019-06-29] MEDS: ATORVASTATIN 20 MG TAB PO SCH (20:21)
[2019-06-29] MEDS: DIVALPROEX DR 500MG TAB PO SCH (20:21)
[2019-06-29] MEDS: MELATONIN 3 MG TABLET PO PRN (20:22)
[2019-06-29] MEDS: DIVALPROEX DR 250 MG TAB PO SCH (20:22)
[2019-06-29] MEDS: MIRTAZAPINE 15 MG TAB PO SCH (20:22)
[2019-06-29] MEDS ORDERED: NACHLORIDE 0.45% 1,000 ML IV SCH (21:00)
[2019-06-29] MEDS: ACETAMINOPHEN 325 MG TABLET PO PRN (23:13)
--- NOTE | 2019-06-30 02:16 | PN ---
Subjective: Mr. Amrijo is doing really a lot better than yesterday. Denies any chest pain, nausea, or vomiting. His diarrhea is improved. Physical Examination: Vital Signs: Blood pressure 98/59, temperature 96.0. HEENT: No JVD. No carotid bruits. Chest: Clear. Heart: Regular. Abdomen: Soft. No guarding. No rebound. No rigidity. Laboratory Data: White count is down to 12,000 from 20,000. BUN and creatinine are slightly high at 50 and 3.19 from a new evidence of dehydration from diarrhea. Assessment And Plan: 1.Clostridium difficile colitis, a new problem. He is on vancomycin p.o. for next 9 days now. 2.Hip fracture. Continue OT and PT. 3.Bipolar disease. Continue Depakote. 4.Renal failure, which has baseline creatinine about 2.5 to 3.0 and he is seen by ssds mk 2 advanced operator local ly. 5.Prostatitis, status post cefepime, which has been discontinued few days ago. 6.Testosterone has been low, which will need treatment later on if the PSA turns out to be benign re ason for it. Prognosis is guarded. I will start him on some IV fluids for hypotension, is running r ight now. TAHMINA/MODYaz Voice ID: [id number] Report ID: [id number]
[2019-06-30] MEDS: VANCOMYCIN ORAL SOLN 250 MG/5 ML OSYR PO SCH ×4 (05:30→23:32)
[2019-06-30 06:01] LABS: Absolute Lymphocytes (CBC) 2.5 K/uL (0.7-4.9); Basophils % 0.6 % (0-1.3); Lymphocytes % 33.4 % (15.3-44.8); MPV 7.8 fL (7.6-11.3); RBC Red Blood Cell Count 2.59 M/uL (4.33-5.43)
[2019-06-30 06:25] LABS: Magnesium 2.5 mg/dL (1.8-2.4); Prealbumin 11.6 mg/dL (20-40)
[2019-06-30] MEDS: PROMOD 30 ML DOSE PO SCH ×2 (08:00→20:00)
[2019-06-30] MEDS: HEPARIN 5000 UNIT/ML 1 ML VIAL SQ SCH ×2 (08:30→18:19)
[2019-06-30] MEDS: LACTOBACILLUS/ACIDOPHILUS TAB PO SCH ×3 (08:38→20:35)
[2019-06-30] MEDS: LIDOCAINE 4% PATCH TOP SCH (08:38)
[2019-06-30] MEDS: FERROUS SULFATE 325 MG TAB PO SCH (08:38)
[2019-06-30] MEDS: METOPROLOL TAR 50 MG TAB PO SCH (08:39)
[2019-06-30] MEDS: FE SULF/FA/VIT B COMP & C TAB PO SCH (08:39)
[2019-06-30] MEDS: CALCITROL 0.25 MCG CAP PO SCH (08:39)
[2019-06-30] MEDS: MAGNESIUM OXIDE 400 MG TAB PO SCH ×2 (08:40→20:35)
[2019-06-30] MEDS: SERTRALINE HCL 100 MG TAB PO SCH (08:43)
[2019-06-30] MEDS: ISOSORBIDE MONO SR 30 MG TAB PO SCH (11:12)
[2019-06-30] MEDS: METOPROLOL TAR 25 MG TAB PO SCH ×2 (14:20→20:00)
[2019-06-30] MEDS: MELATONIN 3 MG TABLET PO PRN (20:35)
[2019-06-30] MEDS: DIVALPROEX DR 500MG TAB PO SCH (20:35)
[2019-06-30] MEDS: TAMSULOSIN 0.4 MG SR CAP PO SCH (20:35)
[2019-06-30] MEDS: DIVALPROEX DR 250 MG TAB PO SCH (20:35)
[2019-06-30] MEDS: ATORVASTATIN 20 MG TAB PO SCH (20:35)
[2019-06-30] MEDS: MIRTAZAPINE 15 MG TAB PO SCH (20:36)
[2019-06-30] MEDS: ACETAMINOPHEN 325 MG TABLET PO PRN (22:36)
--- NOTE | 2019-06-30 23:58 | PN ---
Subjective: Mr. Armijo is 64-year-old gentleman. Feeling a lot better. Denies chest pain, nausea, vomiting. There is no diarrhea any longer. Physical Examination: Vital Signs: Blood pressure 108/62, pulse 65. Chest: Clear. Heart: Regular. Abdomen: No guarding, no rebound, rigidity. Assessment And Plan: 1.Clostridium difficile colitis. Continue vancomycin p.o. q.i.d. for 10 days. 2.Dehydration and renal failure. Currently stable on creatinine. RVD/MODL Voice ID: [id number] Report ID: [id number]
[2019-07-01] MEDS: VANCOMYCIN ORAL SOLN 250 MG/5 ML OSYR PO SCH ×2 (05:25→12:26)
[2019-07-01 05:55] LABS: Absolute Lymphocytes (CBC) 2.7 K/uL (0.7-4.9); Basophils % 0.8 % (0-1.3); Hematocrit 27.5 % (39.6-49.0); MPV 7.5 fL (7.6-11.3); RBC Red Blood Cell Count 2.64 M/uL (4.33-5.43)
[2019-07-01 06:07] LABS: Potassium 3.7 mmol/L (3.5-5.1)
[2019-07-01 06:58] LABS: Blood Morphology Comment NOT SEEN (NOT SEEN); Platelet Estimate ADEQ
[2019-07-01 06:59] VITALS: TEMP 97.8
[2019-07-01] MEDS: PROMOD 30 ML DOSE PO SCH (08:00)
[2019-07-01] MEDS: FE SULF/FA/VIT B COMP & C TAB PO SCH (08:00)
[2019-07-01] MEDS ORDERED: ISOSORBIDE MONO SR 30 MG TAB PO SCH (08:00)
[2019-07-01] MEDS: LIDOCAINE 4% PATCH TOP SCH (08:33)
[2019-07-01] MEDS: HEPARIN 5000 UNIT/ML 1 ML VIAL SQ SCH (08:33)
[2019-07-01] MEDS: FERROUS SULFATE 325 MG TAB PO SCH (08:34)
[2019-07-01] MEDS: MAGNESIUM OXIDE 400 MG TAB PO SCH (08:34)
[2019-07-01] MEDS: SERTRALINE HCL 100 MG TAB PO SCH (08:34)
[2019-07-01] MEDS: CALCITROL 0.25 MCG CAP PO SCH (08:35)
[2019-07-01] MEDS: METOPROLOL TAR 25 MG TAB PO SCH (08:36)
[2019-07-01] MEDS: ACETAMINOPHEN 325 MG TABLET PO PRN (08:38)
[2019-07-01] MEDS: LACTOBACILLUS/ACIDOPHILUS TAB PO SCH ×2 (08:40→13:57)
[2019-07-01 08:43] VITALS: BP 115/66
--- NOTE | 2019-07-01 09:46 | P.RH.PN ---
Estimated Length of Stay: 15 Expected Discharge Date: 07/01/19 Discharge Disposition Plan: Home Family Support: Yes [facility] Goal: Mobility, Transfers, Self Care Vital Signs: Last Vital Signs Temp 97.8 F 07/01/19 06:58 Pulse 62 07/01/19 08:36 Resp 14 07/01/19 06:58 BP 115/66 07/01/19 08:36 Pulse Ox 95 07/01/19 06:58 Laboratory: Laboratory Last Values WBC 7.2 K/uL (4.3-10.9) 07/01/19 05:26 RBC 2.64 M/uL (4.33-5.43) L 07/01/19 05:26 Hgb 9.6 g/dL (13.6-17.9) L 07/01/19 05:26 Hct 27.5 % (39.6-49.0) L 07/01/19 05:26 MCV 104.3 fL (80-100) H 07/01/19 05:26 MCH 36.4 pg (27.0-35.0) H 07/01/19 05:26 MCHC 34.9 g/dL (32.0-36.0) 07/01/19 05:26 RDW 17.0 % (12.1-15.2) H 07/01/19 05:26 Plt Count 338 K/uL (152-406) 07/01/19 05:26 MPV 7.5 fL (7.6-11.3) L 07/01/19 05:26 Plt Distribution Width Cancelled 06/23/19 05:00 Absolute Nucleated RBC Cancelled 06/23/19 05:00 Neutrophils % 50.4 % (41.7-73.7) 07/01/19 05:26 Lymphocytes % 38.0 % (15.3-44.8) 07/01/19 05:26 Monocytes % 8.0 % (3.3-12.3) 07/01/19 05:26 Eosinophils % 2.8 % (0-4.4) 07/01/19 05:26 Basophils % 0.8 % (0-1.3) 07/01/19 05:26 Nucleated RBC % Cancelled 06/23/19 05:00 Absolute Neutrophils 3.6 K/uL (1.8-8.0) 07/01/19 05:26 Segmented Neutrophils 46 % (40-80) 07/01/19 05:26 Band Neutrophils 6 % (0-1) H 06/27/19 20:54 Absolute Lymphocytes 2.7 K/uL (0.7-4.9) 07/01/19 05:26 Lymphocytes 41 % (15-42) 07/01/19 05:26 Monocytes 11 % (0-10) H 07/01/19 05:26 Absolute Monocytes 0.6 K/uL (0.1-1.3) 07/01/19 05:26 Eosinophils 2 % (0-3) 07/01/19 05:26 Absolute Eosinophils 0.2 K/uL (0-0.5) 07/01/19 05:26 Basophils 2 % (0-1) H 06/18/19 14:50 Absolute Basophils 0.1 K/uL (0-0.5) 07/01/19 05:26 Metamyelocytes 1 % (0-0) H 06/25/19 06:34 Myelocytes 1 % (0-0) H 06/25/19 06:34 Nucleated RBCs 4 /100WBC 06/22/19 00:32 Diff Path Review Cancelled 06/23/19 05:00 Reactive Lymphocytes 23 % 06/22/19 00:32 Toxic Granulation 1+ 06/27/19 20:54 Polychromasia 1+ 06/22/19 00:32 Macrocytosis 1+ 06/27/19 20:54 [place] Cells 1+ 06/22/19 00:32 Morphology Comment Not seen (NOT SEEN) 07/01/19 05:26 Sodium 142 mmol/L (136-145) 07/01/19 05:26 Potassium 3.7 mmol/L (3.5-5.1) 07/01/19 05:26 Chloride 116 mmol/L (98-107) H 07/01/19 05:26 Carbon Dioxide 21 mmol/L (21-32) 07/01/19 05:26 BUN 44 mg/dL (7-18) H 07/01/19 05:26 Creatinine 2.79 mg/dL (0.55-1.3) H 07/01/19 05:26 Estimated GFR 23 mL/min (=/>90) L 07/01/19 05:26 Glucose 92 mg/dL (74-106) 07/01/19 05:26 POC Glucose 57 mg/dl (65-120) L 06/18/19 07:06 Calcium 8.6 mg/dL (8.5-10.1) 07/01/19 05:26 Magnesium 2.5 mg/dL (1.8-2.4) H 06/30/19 05:35 Albumin 2.0 g/dL (3.4-5.0) L 06/30/19 05:35 Prealbumin 11.6 mg/dL (20-40) L 06/30/19 05:35 PSA Screen 21.50 ng/mL (0-4.00) H 06/20/19 22:13 Urine Color Yellow 06/18/19 15:15 Urine Appearance Clear 06/18/19 15:15 Urine pH 6.0 (5.0-7.0) 06/18/19 15:15 Ur Specific [place] 1.010 (1.005-1.030) 06/18/19 15:15 Urine Ketones Negative (NEG) 06/18/19 15:15 Urine Blood Negative (NEG) 06/18/19 15:15 Urine Nitrite Negative (NEG) 06/18/19 15:15 Urine Bilirubin Negative (NEG) 06/18/19 15:15 Urine Urobilinogen 0.2 mg/dL (0.2-1.0) 06/18/19 15:15 Ur Leukocyte Esterase 1+ (NEG) H 06/18/19 15:15 Urine RBC <5 /HPF (NONE SEEN) 06/18/19 15:15 Urine WBC 10-20 /HPF (<5) H 06/18/19 15:15 Ur Squamous Epith Cells <5 /HPF (NONE SEEN) 06/18/19 15:15 Urine Bacteria <20 /HPF (NONE SEEN) 06/18/19 15:15 Urine Culture Reflexed Reflexed 06/18/19 15:15 Urine Glucose Negative (NEG) 06/18/19 15:15 Urine Total Protein Negative (NEG) 06/18/19 15:15 C. difficile Ag & Toxin Ag pos : tox pos (NEG : NEG) A 06/27/19 10:00 Weight: 159 lb 11.2 oz Wound Present: No Closed Surgical Incision Present: No Negative Pressure Wound Therapy Present: No Physician Update: He is doing well with physical and occupational therpy. He is ready for discharge. He has c-diff managed by Dr. De Paz and Vanc suspension. Medical Issues: Patient is positive for C. diff, started on Vancomycin oral suspension 125mg Q6H PO. Patient is always continent with bladder and bowel. Pain Issues: Tylenol 650mg Q4H PO PRN. Lidoderm patch 5% Daily Functional Improvement: Patient completes all tasks w/ Mod I. Patient presents w/ good overall safety awareness and good technique. Functional Improvement Occupational Therapy: pt can benifit with further therapy to address pt's overall weakness in the UE/LE's strength. Cont to educate and train pt on energy conservation tecnhiques and safety due to pt's impulsivenss and safety. cont to increase pt's static standing balance for clothing and for functional transfers.cont with the POC and the goals by the supervising OTR Speech Therapy Update: Patient cont to make significant progress in speech therapy. He exhibits improved processing speed, increased ability to comprehend auditory information, recall new information, and organize information appropriately. He occasionally requires repetition or redirection. Patient is at MOD I for auditory comprehension, MOD I for verbal expression, MOD I for social interaction, SUPV to MOD I for problem solving, and SUPV to MOD I for memory. Summary: Patient's care plan and mcc goals have been reviewed and revised as necessary. Please see the Rehabilitation Signature page for all necessary signatures.
--- NOTE | 2019-07-01 18:59 | PN ---
Subjective: Aleksander is doing great, feels great. Denies any chest pain, nausea, vomiting. Objective: Vital Signs: Blood pressure 108/62. Chest: Clear. Heart: Regular. Abdomen: No guarding. No rebound. No rigidity. Assessment And Plan: 1.Clostridium difficile colitis, clinically improved. Continue vancomycin p.o. 2.Renal failure. At baseline, 47 and 3.0 for now. He is stable to be discharged and depends on Dr. Stacy. TAHMINA/SASHA Voice ID: [id number] Report ID: [id number]
--- NOTE | 2019-07-19 11:52 | PAPE ---
PATIENT: [facility] MR# [id number] REFERRING DOCTOR LUIS AGUILERA EVALUATION DATE AND TIME 06/21/2019 17:41 (CDT) NAME Kavin Armijo DATE OF 1955 AGE 64 PHONE SSN# [id number] GENDER male EVALUATING PHYSICIAN Dr. Ezra Stacy M.D. ADMISSION DIAGNOSIS: Acute on chronic renal failure SECONDARY/COMORBID DIAGNOSES TIERED: - Non-Tiered thrombocytopenia - N/A diverticulitis elevated PSA testicular hypogonadism bipolar disorder POST-ADMISSION FUNCTIONAL/MEDICAL STATUS: - Bladder Same accident frequency: Ind - No accidents in the past 7 days - Bowel Same accident frequency: Ind - No accidents in the past 7 days - Walking Same score based on distance walked: 1(<=50ft) - Wheelchair Same score based on distance traveled: 1(<=50ft) STATUS CHANGE EVALUATION: No change in Functional or Medical Status is identified compared with Pre-Admission screening. PATIENT NEEDS CLOSE MEDICAL SUPERVISION BY A REHABILITATION PHYSICIAN FOR: Bowel and Bladder Management Coordination of Treatment Team Medical and Co-Morbidity Management PATIENT REQUIRES 24X7 REHAB NURSING FOR MEDICAL AND FUNCTIONAL MGT. OF THE FOLLOWING DEFICITS: ADL's Ambulation Bowel and Bladder Management Cognition Communication Disease Management Medication Management Patient/Family Education Providing Safe Environment Transfers PATIENT REQUIRES INTENSIVE, COORDINATED INTERDISCIPLINARY APPROACH TO REHAB: Arranging Home Equipment/Services Discharge Planning Family Intervention/Training Bulb Planter/Case Management LIST OF IDENTIFIED AND POTENTIAL PROBLEMS: Alteration in leisure activities Bladder, Incontinence Bowel, Incontinence Infection, Actual or Potential Mobility Impaired Pain, Alteration in Comfort Self Care Deficit Skin Integrity, Actual or Potential Urinary Tract Infection (UTI), Actual or Potential PATIENT COULD BE AT RISK FOR COMPLICATIONS FROM ADVERSE MEDICAL CONDITIONS DUE TO HIS/HER COMORBIDITI ES AND THE RIGORS OF THE INTENSIVE REHABILLITATION PROGRAM. METHODS OR INTERVENTIONS TO AVOID COMPLIC ATIONS INCLUDE: - Infection Clinical staff to assess and manage the signs and symptoms of infection including fever, redness, war mth, etc. - Urinary Tract Infection - Falls Patient will be evaluated for Fall Precautions and will be placed on Fall Precautions as indicated pe r protocol. - Skin Breakdown Nursing will assess skin daily using assessment tool and will place on Skin Breakdown Precautions as indicated per protocol. - Pain Clinical staff may employ non-medication methods such as massage, distraction, decrease stimulus, etc . as needed. Clinical staff will assess patient's pain level every shift per protocol to assess and e nsure pain management effectiveness. Medications will be given and the pain level re-assessed. PRELIMINARY PLAN OF CARE: - Physical Therapy Patient needs Physical Therapy for a daily minimum of 1.5 hours at least 5 out of 7 days, to improve: Mobility, Strengthening, Transfers, Stretching, ROM, Endurance, Ability to manage stairs, Gait, and Balance. - Speech Therapy Patient needs Speech Therapy for a daily minimum of 0.5 hours at least 5 out of 7 days, to improve: S wallowing, Cognition, Language Skills, and Compensatory Strategies. - Rehabilitation Nursing Patient requires 24x7 Rehabilitation Nursing for: Pain Issues, Identifying and preventing risk factor s, Monitoring and reporting current medical conditions, Assisting with ambulation and transfer, Yue ting with all ADL-s, Teaching patients about disease process and medications, Family teaching, Provid ing safe environment, Bowel and Bladder Issues, Skin Integrity, and Medication Management. Patient needs Bulb Planter and/or Case Management for: Discharge Planning, Arranging Home Equipmen t or Services, and Family Interventions. - Dietary and Nutrition Services Patient needs Dietary and Nutrition Services for: Adequate Nutrition, Nutritional Supplements, and Nu tritional Education. - Occupational Therapy Patient needs Occupational Therapy for a daily minimum of 1.5 hours at least 5 out of 7 days, to impr ove Activities of Daily Living, including: Eating, Grooming, Bathing, Dressing, Toileting, Toilet Tra nsfers, Community Reintegration, Higher functional activities, Adaptive Equipment, Splinting, Househo ld Tasks, and Other activities as determined. POTENTIAL FUNCTIONAL GOALS FOR PATIENT TO ACHIEVE BY DISCHARGE: - Safety Precaution Patient will remain free from falls or injury at time of discharge. - Bed Mobility Patient will perform bed mobility at 4-Daxa level of assistance. - Transfers Patient will complete transfers from bed to chair at 4-Daxa level of assistance. - Mobility Patient will ambulate 150 ft with 4-Daxa level of assistance with RW. PATIENT REHAB POTENTIAL Rao Hamptonlucien is able and expected to receive 3 hours of individualized therapy daily on at least 5 of every 7 days Rao Morrison's prognosis for significant practical improvement within a reasonable period of time appears Good Expected level of measurable improvement will be of a practical value to Rao Morrison's functional capacity or adaptations to impairments Has a viable Discharge Plan Medically appropriate; condition is sufficiently stable to participate in intensive rehab program DISCHARGE PLAN: - Estimated Length of Stay (days) 13. - Consensus on plan Discharge plan has been discussed with primary caregiver. Patient/Family is in agreement with the [place] n. Primary caregiver is in agreement with the plan. - Patient/Family Goals Return home with assistance. - Planned Living Setting Upon Discharge Home, to live with Family/Relatives. CONCLUSION ON REHABILITATION NECESSITY: I have evaluated patient's pre-admission functional status and, comparing it to the patient's post-ad mission functional status now, I conclude that the pre-admission assessment was accurate. Patient's c ondition on admission supports the medical necessity of admission to IRF. It is safe to proceed with patient's therapy program. SIGNATURE PANEL: (CDT)
--- NOTE | 2019-07-19 11:52 | FAST ---
SHIFT START DATE/TIME: 06/27/2019 07:00 (CDT) SHIFT END DATE/TIME: 06/27/2019 19:00 (CDT) NAME Kavin Armijo DATE OF : 1955 DATE OF ADMISSION: 06/17/2019 14:48 (CDT) PHONE: AGE: 64 N# [id number] GENDER: Male ENCOUNTER PHYSICIAN: Dr. Ezra Stacy M.D. ADMISSION DIAGNOSIS: - Medically Complex Conditions 17 - Other Medically Complex Conditions (17.9) Acute on chronic renal failure. EATING: EATING - STEP 1: Does the patient complete the activity by him/herself with no assistance (physical, verbal/nonverbal cueing, setup/clean-up)? Yes. 1. [id number] ADMISSION PERFORMANCE: Independent CODE: 06 ORAL HYGIENE: Not assessed/no information CODE: - TOILETING HYGIENE: TOILETING HYGIENE - STEP 1: Does the patient complete the activity by him/herself with no assistance (physical, verbal/nonverbal cueing, setup/clean-up)? No. TOILETING HYGIENE - STEP 2: Does the patient need only setup/clean-up assistance from one helper? Yes. 1. [id number] ADMISSION PERFORMANCE: Setup or clean-up assistance CODE: 05 BATHING: Not assessed/no information CODE: - DRESSING - UPPER BODY: Not assessed/no information CODE: - DRESSING - LOWER BODY: Not assessed/no information CODE: - PUTTING ON/TAKING OFF FOOTWEAR: Not assessed/no information CODE: - ROLL LEFT AND RIGHT: ROLL LEFT AND RIGHT - STEP 1: Does the patient complete the activity by him/herself with no assistance (physical, verbal/nonverbal cueing, setup/clean-up)? No. ROLL LEFT AND RIGHT - STEP 2: Does the patient need only setup/clean-up assistance from one helper? Yes. 1. [id number] ADMISSION PERFORMANCE: Setup or clean-up assistance CODE: 05 SIT TO LYING: SIT TO LYING - STEP 1: Does the patient complete the activity by him/herself with no assistance (physical, verbal/nonverbal cueing, setup/clean-up)? No. SIT TO LYING - STEP 2: Does the patient need only setup/clean-up assistance from one helper? Yes. 1. [id number] ADMISSION PERFORMANCE: Setup or clean-up assistance CODE: 05 LYING TO SITTING: LYING TO SITTING ON SIDE OF BED - STEP 1: Does the patient complete the activity by him/herself with no assistance (physical, verbal/nonverbal cueing, setup/clean-up)? No. LYING TO SITTING ON SIDE OF BED - STEP 2: Does the patient need only setup/clean-up assistance from one helper? No. LYING TO SITTING ON SIDE OF BED - STEP 3: Does the patient need only verbal/nonverbal cueing or touching/steadying/contact guard assistance fro m one helper? Yes. 1. [id number] ADMISSION PERFORMANCE: Supervision or touching assistance CODE: 04 SIT TO STAND: SIT TO STAND - STEP 1: Does the patient complete the activity by him/herself with no assistance (physical, verbal/nonverbal cueing, setup/clean-up)? No. SIT TO STAND - STEP 2: Does the patient need only setup/clean-up assistance from one helper? No. SIT TO STAND - STEP 3: Does the patient need only verbal/nonverbal cueing or touching/steadying/contact guard assistance fro m one helper? Yes. 1. [id number] ADMISSION PERFORMANCE: Supervision or touching assistance CODE: 04 TRANSFERS: BED, CHAIR: CHAIR/[id number] TRANSFER - STEP 1: Does the patient complete the activity by him/herself with no assistance (physical, verbal/nonverbal cueing, setup/clean-up)? No. CHAIR/[id number] TRANSFER - STEP 2: Does the patient need only setup/clean-up assistance from one helper? No. CHAIR/[id number] TRANSFER - STEP 3: Does the patient need only verbal/nonverbal cueing or touching/steadying/contact guard assistance fro m one helper? Yes. 1. [id number] ADMISSION PERFORMANCE: Supervision or touching assistance CODE: 04 TRANSFER TOILET: TOILET TRANSFER - STEP 1: Does the patient complete the activity by him/herself with no assistance (physical, verbal/nonverbal cueing, setup/clean-up)? No. TOILET TRANSFER - STEP 2: Does the patient need only setup/clean-up assistance from one helper? No. TOILET TRANSFER - STEP 3: Does the patient need only verbal/nonverbal cueing or touching/steadying/contact guard assistance fro m one helper? Yes. 1. [id number] ADMISSION PERFORMANCE: Supervision or touching assistance CODE: 04 WALK 10 FEET: Not assessed/no information CODE: - 1 STEP (CURB): Not assessed/no information CODE: - PICKING UP OBJECT: Not assessed/no information CODE: - DOES THE PATIENT USE A WHEELCHAIR/SCOOTER? CODE: EXPR WHEEL 50 FEET WITH TWO TURNS: Not assessed/no information CODE: - INDICATE THE TYPE OF WHEELCHAIR/SCOOTER USED: CODE: EXPR WHEEL 150 FEET: Not assessed/no information CODE: - INDICATE THE TYPE OF WHEELCHAIR/SCOOTER USED: CODE: EXPR BLADDER AND BOWEL: H350. BLADDER CONTINENCE (3-DAY ASSESSMENT PERIOD): Always continent (no documented incontinence) CODE: 0 H400. BOWEL CONTINENCE (3-DAY ASSESSMENT PERIOD): Always continent CODE: 0 SIGNATURE PANEL: The following modified sections: 1. [id number] Admission Performance, 1. [id number] Admission Performance, 1. [id number] Admission Performance, 1. [id number] Admission Performance, 1. [id number] Admission Performance, 1. [id number] Admission Performance, 1. [id number] Admission Performance, 1. [id number] Admission Performance , 1. [id number] Admission Performance, 1. [id number] Admission Performance, Code, H350. Bladder Continence (3-day assessment period), H400. Bowel Continence (3-day assessment period) were [electronically] sig miranda by Leon Ngo on ThuJun 27 2019 15:54:37 GMT-0500 (Central Daylight Time)
--- NOTE | 2019-07-19 11:52 | R.PREADM ---
ANTICIPATED REHAB ADMISSION DATE 06/19/2019 REFERRING FACILITY [facility] REFERRAL DATE AND TIME 06/17/2019 11:54 (CDT) ACUTE ADMIT DATE 06/16/2019 Previous Rehabilitation(s): No. REFERRING PHYSICIAN [facility] RE[facility] FACILITY [facility] CLINICAL LIAISON Dora Dash PHYSICIAN REVIEWER Dr. Ezra Stacy M.D. MR# [id number] NAME Kavin Armijo ADDRESS [address] [place] [address] PHONE [facility] [id number] DATE OF 1955 AGE 64 SSN# [id number] GENDER male MARITAL STATUS RACE white ADMIT FROM 02 - [facility] PRE-HOSPITAL LIVING SETTING 01 - Home (private home/apt. board/care, assisted living, residential, transitional living) HOME TYPE AND DETAILS Type of home: single family house # of steps to enter the residence: 2 # of steps within the residence: 0 # of levels in the residence: 1 PRE-HOSPITAL LIVING WITH Family/Relatives FAMILY SUPPORT Yes PRIMARY FAMILY CONTACT NAME Dionne Armijo PRIMARY FAMILY CONTACT PHONE 1ST EMERGENCY CONTACT Dionne Armijo 1ST CONTACT PHONE PATIENT EMPLOYMENT STATUS Retired (for age) PATIENT EMPLOYER No Employer PAYOR INFORMATION: 1ST PAYOR NAME Medicare 1ST PAYOR PHONE 1ST PAYOR INJURY/ILLNESS DUE TO ACCIDENT? No ANOTHER CONSTITUTION PARTY RESPONSIBLE? No PRIMARY REHAB/ACUTE DIAGNOSIS: Acute on chronic renal failure REHAB IMPAIRMENT CATEGORY (JAYDEN): 20 Miscellaneous (Misc) does NOT meet 60% rule PRIMARY DIAGNOSIS-RELATED SURGERIES: No surgeries related to the primary diagnosis were performed. COMORBID REHAB/ACUTE DIAGNOSES: - Non-Tiered thrombocytopenia - N/A diverticulitis elevated PSA testicular hypogonadism bipolar disorder SUMMARY OF ACUTE HOSPITALIZATION: Pt. is a 64 yo Right-handed white male. On 06/16/2019 he was admitted to [facility] with diagnosis Acute on chronic angelika al failure. His impairment category is Medically Complex Conditions 17 - Other Medically Complex Conditions (17. 9). Pre-morbidly, Pt. was independent/mod-I in Self-Care, Sphincter Control, Transfers Control, and Locom otion; and he had good Sphincter Control. Currently, he has deficits of Self-Care, Transfers Control, Locomotion, Communication, Social Cogniti on, Endurance, Balance, and Safety Awareness. Pt. is now referred to [facility] for acute in-patient rehabilitation in order to maximize patient's functional independence in activities of daily living, strength, ROM, and mobi lity. Patient has realistic goal of being discharged at assistance level 6-Te to reside at Home with Fam nathalia/Relatives. PAST MEDICAL HISTORY bipolar disorder diverticulitis elevated PSA testicular hypogonadism thrombocytopenia MEDICATION ALLERGIES: No Known Drug Allergies (NKDA) ENVIRONMENTAL ALLERGIES: - Substance Allergies None Known - Other Allergies None Known CODE STATUS: Full code WEIGHT/HEIGHT/BMI: WEIGHT 149 lbs HEIGHT 5' 8" BMI 22.7 DIET: - Diet Type Regular - Diet - Solid Texture Regular - Diet - Liquid Texture Regular - Tube Feed N/A REVIEW OF SYSTEMS: - Gen Alert and awake Lying in bed No apparent distress Oriented to: person, time, and place - Vital Signs Vital signs stable, afebrile - CVS RRR VITAL SIGNS Temperature: 97.4 F SBP/DBP: 123/58 Pulse: 62 Resp: 18 Vital signs stable, afebrile MEDICATIONS/TREATMENT: Other- See attached MAR (Medication Administration Record). FUNCTIONAL STATUS: - Self-Care A. Eating Ind sup B. Grooming Ind sup C. Bathing Ind modA D. Dressing - Upper Ind Daxa E. Dressing - Lower Ind maxA F. Toileting Ind Daxa - Sphincter Control G: Bladder control Ind Ind H: Bowel control Ind Ind - Transfers Control I. Bed/Chair/Wheelchair Ind Daxa J. Toilet Ind Daxa K. Tub/Shower Ind Daxa - Locomotion L. Walk/Wheelchair (C) Te Dep L. Walk/Wheelchair (W) ADNO ADNO M. Stairs Ind Ind - Communication N. Comprehension (B) sup Daxa O. Expression (B) Daxa Daxa - Social Cognition P. Social Interaction sup Daxa Q. Problem Solving sup Daxa R. Memory Daxa Daxa - Endurance Poor - Balance Fair - Safety Awareness Poor QI SCORES: - Self-Care A. Eating 05-Setup or clean-up assistance B. Oral hygiene 05-Setup or clean-up assistance C. Toileting hygiene 04-Supervision or touching assistance E. Shower/bathe self 03-Partial/moderate assistance F. Upper body dressing 04-Supervision or touching assistance G. Lower body dressing 02-Substantial/maximal assistance H. Putting on/taking off footwear 02-Substantial/maximal assistance - Mobility A. Roll left and right 03-Partial/moderate assistance B. Sit to lying 03-Partial/moderate assistance C. Lying to sitting on side of bed 03-Partial/moderate assistance D. Sit to stand 04-Supervision or touching assistance E. Chair/mms-dh-vxcic transfer 04-Supervision or touching assistance F. Toilet transfer 04-Supervision or touching assistance G. Car transfer 88-Not attempted due to medical condition or safety concerns I. Walk 10 feet 03-Partial/moderate assistance J. Walk 50 feet with two turns 88-Not attempted due to medical condition or safety concerns K. Walk 150 feet 88-Not attempted due to medical condition or safety concerns L. Walking 10 feet on uneven surfaces 88-Not attempted due to medical condition or safety concerns M. 1 step (curb) 88-Not attempted due to medical condition or safety concerns N. 4 steps 88-Not attempted due to medical condition or safety concerns O. 12 steps 88-Not attempted due to medical condition or safety concerns P. Picking up object 88-Not attempted due to medical condition or safety concerns R. Wheel 50 feet with two turns 88-Not attempted due to medical condition or safety concerns S. Wheel 150 feet 88-Not attempted due to medical condition or safety concerns - Bladder and Bowel Bladder continence 0-Always continent Bowel continence 0-Always continent CURRENT FUNC. DEFICITS: Self-Care, Transfers Control, Locomotion, Communication, Social Cognition, Endurance, Balance, and Sa fety Awareness THERAPY NOTES FROM ACUTE CARE: Attached. SPECIAL NEEDS: - Safety Concerns Skin breakdown precautions needed due to skin breakdown risk PATIENT NEEDS ACTIVE AND ONGOING THERAPEUTIC INTERVENTION OF MULTIPLE THERAPY DISCIPLINES, INCLUDING: - Dietary and Nutrition Adequate Nutrition. Nutritional Education. Nutritional Supplements. PATIENT NEEDS CLOSE MEDICAL SUPERVISION BY A REHABILITATION PHYSICIAN FOR: Bowel and Bladder Management Coordination of Treatment Team Medical and Co-Morbidity Management PATIENT REQUIRES 24X7 REHAB NURSING FOR MEDICAL AND FUNCTIONAL MGT. OF THE FOLLOWING DEFICITS: ADL's Ambulation Bowel and Bladder Management Cognition Communication Disease Management Medication Management Patient/Family Education Providing Safe Environment Transfers PATIENT REQUIRES INTENSIVE, COORDINATED INTERDISCIPLINARY APPROACH TO REHAB: Arranging Home Equipment/Services Discharge Planning Family Intervention/Training Hand Nailer/Case Management PATIENT REHAB POTENTIAL: Rao Morrison is able and expected to receive 3 hours of individualized therapy daily on at least 5 of every 7 days Rao Rangels prognosis for significant practical improvement within a reasonable period of time appears Good Expected level of measurable improvement will be of a practical value to Rao Sandoval functional capacity or adaptations to impairments Has a viable Discharge Plan Medically appropriate; condition is sufficiently stable to participate in intensive rehab program DISCHARGE PLAN: - Estimated Length of Stay (days) 13. - Consensus on plan Discharge plan has been discussed with primary caregiver. Patient/Family is in agreement with the trent[place] n. Primary caregiver is in agreement with the plan. - Patient/Family Goals Return home with assistance. - Planned Living Setting Upon Discharge Home, to live with Family/Relatives. RECOMMENDED CARE LEVEL: IRF RECOMMENDATION DETAILS: Recommended Admission to Comprehensive Rehabilitation Program to Increase Functional Lindsey SCREENER'S COMPLETENESS CONFIRMATION: - Screening Confirmation The patient data collection on this preadmission screening form is finished PHYSICIANS REVIEW AND ADMISSION DETERMINATION Admit - Based on my review of the Pre-Admission Screening results, in my medical judgment and experie nce, I concur with the findings and recommend admission to [facility], as this patient requires an IRF level of care. SIGNATURE PANEL: Clinical Liaison - [electronically] signed by Alyssa Tafoya on 06/17/2019 at 12:50 (CDT) Clinical Liaison - [electronically] signed by Dora Dash on 06/17/2019 at 12:56 (CDT) Physician Reviewer - [electronically] signed by Dr. Ezra Stacy M.D. on 06/17/2019 at 13:29 (CDT )
--- NOTE | 2019-07-19 11:53 | FAST ---
ENCOUNTER DATE AND TIME: 06/27/2019 08:00 (CDT) NAME Kavin Armijo DATE OF : 1955 DATE OF ADMISSION: 06/17/2019 14:48 (CDT) PHONE: AGE: 64 N# [id number] GENDER: Male ENCOUNTER PHYSICIAN: Dr. Ezra Stacy M.D. ADMISSION DIAGNOSIS: - Medically Complex Conditions 17 - Other Medically Complex Conditions (17.9) Acute on chronic renal failure. EATING: Not assessed/no information CODE: - ORAL HYGIENE: ORAL HYGIENE - STEP 1: Does the patient complete the activity by him/herself with no assistance (physical, verbal/nonverbal cueing, setup/clean-up)? Yes. 1. [id number] ADMISSION PERFORMANCE: Independent CODE: 06 TOILETING HYGIENE: TOILETING HYGIENE - STEP 1: Does the patient complete the activity by him/herself with no assistance (physical, verbal/nonverbal cueing, setup/clean-up)? No. TOILETING HYGIENE - STEP 2: Does the patient need only setup/clean-up assistance from one helper? No. TOILETING HYGIENE - STEP 3: Does the patient need only verbal/nonverbal cueing or touching/steadying/contact guard assistance fro m one helper? Yes. 1. [id number] ADMISSION PERFORMANCE: Supervision or touching assistance CODE: 04 BATHING: Not assessed/no information CODE: - DRESSING - UPPER BODY: Not assessed/no information CODE: - DRESSING - LOWER BODY: Not assessed/no information CODE: - PUTTING ON/TAKING OFF FOOTWEAR: Not assessed/no information CODE: - DOES THE PATIENT USE A WHEELCHAIR/SCOOTER? CODE: EXPR INDICATE THE TYPE OF WHEELCHAIR/SCOOTER USED: CODE: EXPR INDICATE THE TYPE OF WHEELCHAIR/SCOOTER USED: CODE: EXPR BLADDER AND BOWEL: CODE: EXPR CODE: EXPR SIGNATURE PANEL: The following modified sections: 1. [id number] Admission Performance, 1. [id number] Admission Performance w ere [electronically] signed by KIMANI Mae on ThuJun 27 2019 14:33:55 GMT-0500 (Central Daylight Time)
--- NOTE | 2019-07-19 11:53 | FAST ---
ENCOUNTER DATE AND TIME: 06/30/2019 08:00 (CDT) NAME Kavin Armijo DATE OF : 1955 DATE OF ADMISSION: 06/17/2019 14:48 (CDT) PHONE: AGE: 64 N# [id number] GENDER: Male ENCOUNTER PHYSICIAN: Dr. Ezra Stacy M.D. ADMISSION DIAGNOSIS: - Medically Complex Conditions 17 - Other Medically Complex Conditions (17.9) Acute on chronic renal failure. ROLL LEFT AND RIGHT: ROLL LEFT AND RIGHT - STEP 1: Does the patient complete the activity by him/herself with no assistance (physical, verbal/nonverbal cueing, setup/clean-up)? Yes. 1. [id number] ADMISSION PERFORMANCE: Independent CODE: 06 SIT TO LYING: SIT TO LYING - STEP 1: Does the patient complete the activity by him/herself with no assistance (physical, verbal/nonverbal cueing, setup/clean-up)? Yes. 1. [id number] ADMISSION PERFORMANCE: Independent CODE: 06 LYING TO SITTING: LYING TO SITTING ON SIDE OF BED - STEP 1: Does the patient complete the activity by him/herself with no assistance (physical, verbal/nonverbal cueing, setup/clean-up)? Yes. 1. [id number] ADMISSION PERFORMANCE: Independent CODE: 06 SIT TO STAND: SIT TO STAND - STEP 1: Does the patient complete the activity by him/herself with no assistance (physical, verbal/nonverbal cueing, setup/clean-up)? Yes. 1. [id number] ADMISSION PERFORMANCE: Independent CODE: 06 TRANSFERS: BED, CHAIR: CHAIR/[id number] TRANSFER - STEP 1: Does the patient complete the activity by him/herself with no assistance (physical, verbal/nonverbal cueing, setup/clean-up)? Yes. 1. [id number] ADMISSION PERFORMANCE: Independent CODE: 06 TRANSFER TOILET: TOILET TRANSFER - STEP 1: Does the patient complete the activity by him/herself with no assistance (physical, verbal/nonverbal cueing, setup/clean-up)? Yes. 1. [id number] ADMISSION PERFORMANCE: Independent CODE: 06 TRANSFERS: CAR: CAR TRANSFER - STEP 1: Does the patient complete the activity by him/herself with no assistance (physical, verbal/nonverbal cueing, setup/clean-up)? Yes. 1. [id number] ADMISSION PERFORMANCE: Independent CODE: 06 WALK 10 FEET: WALK 10 FEET - STEP 1: Does the patient complete the activity by him/herself with no assistance (physical, verbal/nonverbal cueing, setup/clean-up)? Yes. 1. [id number] ADMISSION PERFORMANCE: Independent CODE: 06 WALK 50 FEET: WALK 50 FEET - STEP 1: Does the patient complete the activity by him/herself with no assistance (physical, verbal/nonverbal cueing, setup/clean-up)? Yes. 1. [id number] ADMISSION PERFORMANCE: Independent CODE: 06 WALK 150 FEET: WALK 150 FEET - STEP 1: Does the patient complete the activity by him/herself with no assistance (physical, verbal/nonverbal cueing, setup/clean-up)? Yes. 1. [id number] ADMISSION PERFORMANCE: Independent CODE: 06 WALK 10 FEET UNEVEN: Not assessed/no information CODE: - 1 STEP (CURB): 1 STEP CURB - STEP 1: Does the patient complete the activity by him/herself with no assistance (physical, verbal/nonverbal cueing, setup/clean-up)? Yes. 1. [id number] ADMISSION PERFORMANCE: Independent CODE: 06 4 STEPS: 4 STEPS - STEP 1: Does the patient complete the activity by him/herself with no assistance (physical, verbal/nonverbal cueing, setup/clean-up)? Yes. 1. [id number] ADMISSION PERFORMANCE: Independent CODE: 06 12 STEPS: 12 STEPS - STEP 1: Does the patient complete the activity by him/herself with no assistance (physical, verbal/nonverbal cueing, setup/clean-up)? Yes. 1. [id number] ADMISSION PERFORMANCE: Independent CODE: 06 PICKING UP OBJECT: Not assessed/no information CODE: - DOES THE PATIENT USE A WHEELCHAIR/SCOOTER? Q1. DOES THE PATIENT USE A WHEELCHAIR/SCOOTER?: Yes CODE: 1 WHEEL 50 FEET WITH TWO TURNS: WHEEL 50 FEET WITH TWO TURNS - STEP 1: Does the patient complete the activity by him/herself with no assistance (physical, verbal/nonverbal cueing, setup/clean-up)? Yes. 1. [id number] ADMISSION PERFORMANCE: Independent CODE: 06 INDICATE THE TYPE OF WHEELCHAIR/SCOOTER USED: RR1. INDICATE THE TYPE OF WHEELCHAIR/SCOOTER USED.: Manual CODE: 1 WHEEL 150 FEET: WHEEL 150 FEET - STEP 1: Does the patient complete the activity by him/herself with no assistance (physical, verbal/nonverbal cueing, setup/clean-up)? Yes. 1. [id number] ADMISSION PERFORMANCE: Independent CODE: 06 INDICATE THE TYPE OF WHEELCHAIR/SCOOTER USED: SS1. INDICATE THE TYPE OF WHEELCHAIR/SCOOTER USED.: Manual CODE: 1 BLADDER AND BOWEL: CODE: EXPR CODE: EXPR SIGNATURE PANEL: The following modified sections: 1. [id number] Admission Performance, 1. [id number] Admission Performance, 1. [id number] Admission Performance, 1. [id number] Admission Performance, 1. [id number] Admission Performance, 1. VT4870Z Admission Performance, 1. HU0283D Admission Performance, 1. [id number] Admission Performance , 1. CL2272V Admission Performance, 1. [id number] Admission Performance, 1. LL7620D Admission Performanc e, 1. [id number] Admission Performance, 1. [id number] Admission Performance, Q1. Does the patient use a whe elchair/scooter?, 1. [id number] Admission Performance, RR1. Indicate the type of wheelchair/scooter used ., 1. [id number] Admission Performance, Code, SS1. Indicate the type of wheelchair/scooter used. were [e lectronically] signed by Suman Fisher PTA on ThuJun 30 2019 15:35:28 T-0500 (Central Daylight Time)
--- NOTE | 2019-07-19 11:53 | FAST ---
SHIFT START DATE/TIME: 06/28/2019 07:00 (CDT) SHIFT END DATE/TIME: 06/28/2019 19:00 (CDT) NAME Kavin Armijo DATE OF : 1955 DATE OF ADMISSION: 06/17/2019 14:48 (CDT) PHONE: AGE: 64 N# [id number] GENDER: Male ENCOUNTER PHYSICIAN: Dr. Ezra Stacy M.D. ADMISSION DIAGNOSIS: - Medically Complex Conditions 17 - Other Medically Complex Conditions (17.9) Acute on chronic renal failure. EATING: EATING - STEP 1: Does the patient complete the activity by him/herself with no assistance (physical, verbal/nonverbal cueing, setup/clean-up)? No. EATING - STEP 2: Does the patient need only setup/clean-up assistance from one helper? Yes. 1. [id number] ADMISSION PERFORMANCE: Setup or clean-up assistance CODE: 05 ORAL HYGIENE: ORAL HYGIENE - STEP 1: Does the patient complete the activity by him/herself with no assistance (physical, verbal/nonverbal cueing, setup/clean-up)? No. ORAL HYGIENE - STEP 2: Does the patient need only setup/clean-up assistance from one helper? Yes. 1. [id number] ADMISSION PERFORMANCE: Setup or clean-up assistance CODE: 05 TOILETING HYGIENE: TOILETING HYGIENE - STEP 1: Does the patient complete the activity by him/herself with no assistance (physical, verbal/nonverbal cueing, setup/clean-up)? No. TOILETING HYGIENE - STEP 2: Does the patient need only setup/clean-up assistance from one helper? No. TOILETING HYGIENE - STEP 3: Does the patient need only verbal/nonverbal cueing or touching/steadying/contact guard assistance fro m one helper? Yes. 1. [id number] ADMISSION PERFORMANCE: Supervision or touching assistance CODE: 04 BATHING: Not assessed/no information CODE: - DRESSING - UPPER BODY: Not assessed/no information CODE: - DRESSING - LOWER BODY: Not assessed/no information CODE: - PUTTING ON/TAKING OFF FOOTWEAR: Not assessed/no information CODE: - ROLL LEFT AND RIGHT: Not assessed/no information CODE: - SIT TO LYING: SIT TO LYING - STEP 1: Does the patient complete the activity by him/herself with no assistance (physical, verbal/nonverbal cueing, setup/clean-up)? No. SIT TO LYING - STEP 2: Does the patient need only setup/clean-up assistance from one helper? No. SIT TO LYING - STEP 3: Does the patient need only verbal/nonverbal cueing or touching/steadying/contact guard assistance fro m one helper? Yes. 1. [id number] ADMISSION PERFORMANCE: Supervision or touching assistance CODE: 04 LYING TO SITTING: LYING TO SITTING ON SIDE OF BED - STEP 1: Does the patient complete the activity by him/herself with no assistance (physical, verbal/nonverbal cueing, setup/clean-up)? No. LYING TO SITTING ON SIDE OF BED - STEP 2: Does the patient need only setup/clean-up assistance from one helper? Yes. 1. [id number] ADMISSION PERFORMANCE: Setup or clean-up assistance CODE: 05 SIT TO STAND: SIT TO STAND - STEP 1: Does the patient complete the activity by him/herself with no assistance (physical, verbal/nonverbal cueing, setup/clean-up)? No. SIT TO STAND - STEP 2: Does the patient need only setup/clean-up assistance from one helper? No. SIT TO STAND - STEP 3: Does the patient need only verbal/nonverbal cueing or touching/steadying/contact guard assistance fro m one helper? Yes. 1. [id number] ADMISSION PERFORMANCE: Supervision or touching assistance CODE: 04 TRANSFERS: BED, CHAIR: Not assessed/no information CODE: - TRANSFER TOILET: TOILET TRANSFER - STEP 1: Does the patient complete the activity by him/herself with no assistance (physical, verbal/nonverbal cueing, setup/clean-up)? No. TOILET TRANSFER - STEP 2: Does the patient need only setup/clean-up assistance from one helper? No. TOILET TRANSFER - STEP 3: Does the patient need only verbal/nonverbal cueing or touching/steadying/contact guard assistance fro m one helper? Yes. 1. [id number] ADMISSION PERFORMANCE: Supervision or touching assistance CODE: 04 TRANSFERS: CAR: Not assessed/no information CODE: - WALK 10 FEET: Not assessed/no information CODE: - 1 STEP (CURB): Not assessed/no information CODE: - PICKING UP OBJECT: Not assessed/no information CODE: - DOES THE PATIENT USE A WHEELCHAIR/SCOOTER? CODE: EXPR WHEEL 50 FEET WITH TWO TURNS: Not assessed/no information CODE: - INDICATE THE TYPE OF WHEELCHAIR/SCOOTER USED: CODE: EXPR WHEEL 150 FEET: Not assessed/no information CODE: - INDICATE THE TYPE OF WHEELCHAIR/SCOOTER USED: CODE: EXPR BLADDER AND BOWEL: H350. BLADDER CONTINENCE (3-DAY ASSESSMENT PERIOD): Always continent (no documented incontinence) CODE: 0 H400. BOWEL CONTINENCE (3-DAY ASSESSMENT PERIOD): Always continent CODE: 0 SIGNATURE PANEL: The following modified sections: 1. [id number] Admission Performance, 1. [id number] Admission Performance, 1. DR8462V Admission Performance, 1. [id number] Admission Performance, 1. WC6004H Admission Performance, 1. CT7654Y Admission Performance, 1. [id number] Admission Performance, Code, H350. Bladder Continence ( 3-day assessment period), H400. Bowel Continence (3-day assessment period) were [electronically] sign ed by Leon Ngo on ThuJun 28 2019 14:16:08 GMT-0500 (Central Daylight Time)
--- NOTE | 2019-07-19 11:53 | R.PN ---
ENCOUNTER DATE AND TIME: 06/23/2019 17:17 (CDT) NAME Kavin Armijo DATE OF : 1955 DATE OF ADMISSION: 06/17/2019 14:48 (CDT) Acute on chronic renal failureCHIEF COMPLAINT: Debility, acute on chronic renal failure SUBJECTIVE: Pt denied any depression. Pt denied any Shortness of Breath. He is making fair overall progress with physical and occupational therapy. Blood work is stable with slightly improved chaser tar of 3.03 down from 3.27. VITAL SIGNS Temperature: 97.2 F SBP/DBP: 125/68 Pulse: 75 Resp: 16 MEDICATION ALLERGIES: No Known Drug Allergies (NKDA) ENVIRONMENTAL ALLERGIES: - Substance Allergies None Known - Other Allergies None Known NURSING: - Shower allowing shower ACTIVITIES OOB only with supervision THERAPIES: - Dietary and Nutrition Adequate Nutrition. Nutritional Education. Nutritional Supplements. PHYSICAL EXAM - Gen Alert and awake Lying in bed No apparent distress Oriented to: person, time, and place - Skin No skin breakdown. Normacephalic - Eyes No abnormalities - ENMT No abnormalities - Neck No abnormalities - CVS RRR - Chest No abnormalities - Abd Soft - GI Non distended Deferred - No abnormalities - Ext Mild bilateral lower extremity edema. - MSK 4/5 weakness in both lower extremities. - Neuro No focal deficits - Psych No abnormalities ASSESSMENT: Pt. is a 64 yo Right-handed white male.On 06/16/2019 he was admitted to [facility] with diagnosis Acute on chronic renal failure.His impairment category is Medically Complex Condit ions 17 - Other Medically Complex Conditions (17.9).Pre-morbidly, Pt. was independent/mod-I in Self- Care, Sphincter Control, Transfers Control, and Locomotion; and he had good Sphincter Control.Current ly, he has deficits of Self-Care, Transfers Control, Locomotion, Communication, Social Cognition, End urance, Balance, and Safety Awareness.Pt. is now referred to [facility] for ac [place] in-patient rehabilitation in order to maximize patient's functional independence in activities of daily living, strength, ROM, and mobility.- Rehab Goal Patient has realistic goal of being discharged at assistance level 6-Te to reside at Home with Fam nathalia/Relatives. MDM/PLAN: - Physical Therapy Gait dysfunction - to improve, our physical therapists will perform initial evaluation of pt's statu s upon admission and devise an individualized program for Gait Training, and Wheel Chair mobility Inability to transfer - to improve, our physical therapists will perform initial evaluation of pt's status upon admission and devise an individualized program for Bed mobility Need for home safety evaluation - to improve, our physical therapists will perform initial evaluatio n of pt's status upon admission and devise an individualized program for Home Evaluation Need in caregiver upon discharge - to improve, our physical therapists will perform initial evaluati on of pt's status upon admission and devise an individualized program for Caregiver Training Edema - to improve, our physical therapists will perform initial evaluation of pt's status upon admi ssion and devise an individualized program for Elevation Training, and Lymphedema Therapy New precaution - to improve, our physical therapists will perform initial evaluation of pt's status upon admission and devise an individualized program for Patient precaution education Poor balance - to improve, our physical therapists will perform initial evaluation of pt's status up on admission and devise an individualized program for Balance Training Poor endurance - to improve, our physical therapists will perform initial evaluation of pt's status upon admission and devise an individualized program for Endurance Training Weakness - to improve, our physical therapists will perform initial evaluation of pt's status upon a dmission and devise an individualized program for Aquatic Therapy, Neuromuscular Reeducation, and Str engthening Achieving independence - to improve, our physical therapists will perform initial evaluation of pt's status upon admission and devise an individualized program for Community Reintegration Activities - Occupational Therapy ADL deficits - to improve, our occupation therapists will perform initial evaluation of pt's status upon admission and devise an individualized program for Bathing, Bed mobility, Community Reintegratio n, Cooking, Dressing, Eating, Fine Motor Skills, Grooming, Homemaking, Kitchen Mobility, Laundry, Pat ient Education, Safety Awareness, Splinting - Positioning, Transfers(Toilet, Tub, Shower), and Wheel Chair Management Cognitive deficits - to improve, our occupation therapists will perform initial evaluation of pt's s tatus upon admission and devise an individualized program for Cognition - orientation Need for rn patient care - to improve, our occupation therapists will perform initial evaluation of pt's status upon admission and devise an individualized program for Caregiver Training Weakness - to improve, our occupation therapists will perform initial evaluation of pt's status upon admission and devise an individualized program for Aquatic Therapy, Balance, Endurance, UE ROM, and UE strengthening - Other See attached MAR (Medication Administration Record) - Diet Type Continue Regular - Diet - Liquid Texture Continue Regular - Tube Feed Continue N/A - Diet - Solid Texture Continue Regular - Shower allowing shower FUNCTIONAL STATUS: UPDATED AT WEEKLY TEAM CONFERENCE - Bladder Same accident frequency: 7-Ind - No accidents in the past 7 days - Bowel Same accident frequency: 7-Ind - No accidents in the past 7 days - Walking Same score based on distance walked: 1(<=50ft) - Wheelchair Same score based on distance traveled: 1(<=50ft) FUNCTIONAL STATUS: - Self-Care A. Eating sup B. Grooming sup C. Bathing modA D. Dressing - Upper Daxa E. Dressing - Lower maxA F. Toileting Daxa - Sphincter Control G: Bladder control Ind H: Bowel control Ind - Transfers Control I. Bed/Chair/Wheelchair Daxa J. Toilet Daxa K. Tub/Shower Daxa - Locomotion L. Walk/Wheelchair (C) Dep L. Walk/Wheelchair (W) ADNO M. Stairs Ind - Communication N. Comprehension (B) Daxa O. Expression (B) Daxa - Social Cognition P. Social Interaction Daxa Q. Problem Solving Daxa R. Memory Daxa - Endurance Poor - Balance Fair - Safety Awareness Poor QI SCORES: - Self-Care A. Eating 05-Setup or clean-up assistance B. Oral hygiene 05-Setup or clean-up assistance C. Toileting hygiene 04-Supervision or touching assistance E. Shower/bathe self 03-Partial/moderate assistance F. Upper body dressing 04-Supervision or touching assistance G. Lower body dressing 02-Substantial/maximal assistance H. Putting on/taking off footwear 02-Substantial/maximal assistance - Mobility A. Roll left and right 03-Partial/moderate assistance B. Sit to lying 03-Partial/moderate assistance C. Lying to sitting on side of bed 03-Partial/moderate assistance D. Sit to stand 04-Supervision or touching assistance E. Chair/[id number] transfer 04-Supervision or touching assistance F. Toilet transfer 04-Supervision or touching assistance G. Car transfer 88-Not attempted due to medical condition or safety concerns I. Walk 10 feet 03-Partial/moderate assistance J. Walk 50 feet with two turns 88-Not attempted due to medical condition or safety concerns K. Walk 150 feet 88-Not attempted due to medical condition or safety concerns L. Walking 10 feet on uneven surfaces 88-Not attempted due to medical condition or safety concerns M. 1 step (curb) 88-Not attempted due to medical condition or safety concerns N. 4 steps 88-Not attempted due to medical condition or safety concerns O. 12 steps 88-Not attempted due to medical condition or safety concerns P. Picking up object 88-Not attempted due to medical condition or safety concerns R. Wheel 50 feet with two turns 88-Not attempted due to medical condition or safety concerns S. Wheel 150 feet 88-Not attempted due to medical condition or safety concerns - Bladder and Bowel Bladder continence 0-Always continent Bowel continence 0-Always continent CURRENT FUNC. DEFICITS: Self-Care, Transfers Control, Locomotion, Communication, Social Cognition, Endurance, Balance, and Sa fety Awareness SIGNATURE PANEL: (CDT)
--- NOTE | 2019-07-19 11:53 | R.PN ---
ENCOUNTER DATE AND TIME: 06/27/2019 18:24 (CDT) NAME Kavin Armijo DATE OF : 1955 DATE OF ADMISSION: 06/17/2019 14:48 (CDT) Acute on chronic renal failureCHIEF COMPLAINT: Debility, acute on chronic renal failure SUBJECTIVE: Pt denied any depression. Pt denied any Shortness of Breath. He is making fair overall progress with physical and occupational therapy. Blood work is stable with improved mincemeat maker. VITAL SIGNS Temperature: 97.2 F SBP/DBP: 125/68 Pulse: 75 Resp: 16 MEDICATION ALLERGIES: No Known Drug Allergies (NKDA) ENVIRONMENTAL ALLERGIES: - Substance Allergies None Known - Other Allergies None Known NURSING: - Shower allowing shower ACTIVITIES OOB only with supervision THERAPIES: - Dietary and Nutrition Adequate Nutrition. Nutritional Education. Nutritional Supplements. PHYSICAL EXAM - Gen Alert and awake Lying in bed No apparent distress Oriented to: person, time, and place - Skin No skin breakdown. Normacephalic - Eyes No abnormalities - ENMT No abnormalities - Neck No abnormalities - CVS RRR - Chest No abnormalities - Abd Soft - GI Non distended Deferred - No abnormalities - Ext Mild bilateral lower extremity edema. - MSK 4/5 weakness in both lower extremities. - Neuro No focal deficits - Psych No abnormalities ASSESSMENT: Pt. is a 64 yo Right-handed white male.On 06/16/2019 he was admitted to [facility] with diagnosis Acute on chronic renal failure.His impairment category is Medically Complex Condit ions 17 - Other Medically Complex Conditions (17.9).Pre-morbidly, Pt. was independent/mod-I in Self- Care, Sphincter Control, Transfers Control, and Locomotion; and he had good Sphincter Control.Current ly, he has deficits of Self-Care, Transfers Control, Locomotion, Communication, Social Cognition, End urance, Balance, and Safety Awareness.Pt. is now referred to [facility] for ac [place] in-patient rehabilitation in order to maximize patient's functional independence in activities of daily living, strength, ROM, and mobility.- Rehab Goal Patient has realistic goal of being discharged at assistance level 6-Te to reside at Home with Fam nathalia/Relatives. MDM/PLAN: - Physical Therapy Gait dysfunction - to improve, our physical therapists will perform initial evaluation of pt's statu s upon admission and devise an individualized program for Gait Training, and Wheel Chair mobility Inability to transfer - to improve, our physical therapists will perform initial evaluation of pt's status upon admission and devise an individualized program for Bed mobility Need for home safety evaluation - to improve, our physical therapists will perform initial evaluatio n of pt's status upon admission and devise an individualized program for Home Evaluation Need in caregiver upon discharge - to improve, our physical therapists will perform initial evaluati on of pt's status upon admission and devise an individualized program for Caregiver Training Edema - to improve, our physical therapists will perform initial evaluation of pt's status upon admi ssion and devise an individualized program for Elevation Training, and Lymphedema Therapy New precaution - to improve, our physical therapists will perform initial evaluation of pt's status upon admission and devise an individualized program for Patient precaution education Poor balance - to improve, our physical therapists will perform initial evaluation of pt's status up on admission and devise an individualized program for Balance Training Poor endurance - to improve, our physical therapists will perform initial evaluation of pt's status upon admission and devise an individualized program for Endurance Training Weakness - to improve, our physical therapists will perform initial evaluation of pt's status upon a dmission and devise an individualized program for Aquatic Therapy, Neuromuscular Reeducation, and Str engthening Achieving independence - to improve, our physical therapists will perform initial evaluation of pt's status upon admission and devise an individualized program for Community Reintegration Activities - Occupational Therapy ADL deficits - to improve, our occupation therapists will perform initial evaluation of pt's status upon admission and devise an individualized program for Bathing, Bed mobility, Community Reintegratio n, Cooking, Dressing, Eating, Fine Motor Skills, Grooming, Homemaking, Kitchen Mobility, Laundry, Pat ient Education, Safety Awareness, Splinting - Positioning, Transfers(Toilet, Tub, Shower), and Wheel Chair Management Cognitive deficits - to improve, our occupation therapists will perform initial evaluation of pt's s tatus upon admission and devise an individualized program for Cognition - orientation Need for health care administrator - to improve, our occupation therapists will perform initial evaluation of pt's status upon admission and devise an individualized program for Caregiver Training Weakness - to improve, our occupation therapists will perform initial evaluation of pt's status upon admission and devise an individualized program for Aquatic Therapy, Balance, Endurance, UE ROM, and UE strengthening - Other See attached MAR (Medication Administration Record) - Diet Type Continue Regular - Diet - Liquid Texture Continue Regular - Tube Feed Continue N/A - Diet - Solid Texture Continue Regular - Shower allowing shower FUNCTIONAL STATUS: UPDATED AT WEEKLY TEAM CONFERENCE - Bladder Same accident frequency: 7-Ind - No accidents in the past 7 days - Bowel Same accident frequency: 7-Ind - No accidents in the past 7 days - Walking Same score based on distance walked: 1(<=50ft) - Wheelchair Same score based on distance traveled: 1(<=50ft) FUNCTIONAL STATUS: - Self-Care A. Eating sup B. Grooming sup C. Bathing modA D. Dressing - Upper Daxa E. Dressing - Lower maxA F. Toileting Daxa - Sphincter Control G: Bladder control Ind H: Bowel control Ind - Transfers Control I. Bed/Chair/Wheelchair Daxa J. Toilet Daxa K. Tub/Shower Daxa - Locomotion L. Walk/Wheelchair (C) Dep L. Walk/Wheelchair (W) ADNO M. Stairs Ind - Communication N. Comprehension (B) Daxa O. Expression (B) Daxa - Social Cognition P. Social Interaction Daxa Q. Problem Solving Daxa R. Memory Daxa - Endurance Poor - Balance Fair - Safety Awareness Poor QI SCORES: - Self-Care A. Eating 05-Setup or clean-up assistance B. Oral hygiene 05-Setup or clean-up assistance C. Toileting hygiene 04-Supervision or touching assistance E. Shower/bathe self 03-Partial/moderate assistance F. Upper body dressing 04-Supervision or touching assistance G. Lower body dressing 02-Substantial/maximal assistance H. Putting on/taking off footwear 02-Substantial/maximal assistance - Mobility A. Roll left and right 03-Partial/moderate assistance B. Sit to lying 03-Partial/moderate assistance C. Lying to sitting on side of bed 03-Partial/moderate assistance D. Sit to stand 04-Supervision or touching assistance E. Chair/ulb-tz-[id number] transfer 04-Supervision or touching assistance F. Toilet transfer 04-Supervision or touching assistance G. Car transfer 88-Not attempted due to medical condition or safety concerns I. Walk 10 feet 03-Partial/moderate assistance J. Walk 50 feet with two turns 88-Not attempted due to medical condition or safety concerns K. Walk 150 feet 88-Not attempted due to medical condition or safety concerns L. Walking 10 feet on uneven surfaces 88-Not attempted due to medical condition or safety concerns M. 1 step (curb) 88-Not attempted due to medical condition or safety concerns N. 4 steps 88-Not attempted due to medical condition or safety concerns O. 12 steps 88-Not attempted due to medical condition or safety concerns P. Picking up object 88-Not attempted due to medical condition or safety concerns R. Wheel 50 feet with two turns 88-Not attempted due to medical condition or safety concerns S. Wheel 150 feet 88-Not attempted due to medical condition or safety concerns - Bladder and Bowel Bladder continence 0-Always continent Bowel continence 0-Always continent CURRENT FUNC. DEFICITS: Self-Care, Transfers Control, Locomotion, Communication, Social Cognition, Endurance, Balance, and Sa fety Awareness SIGNATURE PANEL: (CDT)
--- NOTE | 2019-07-19 11:53 | R.PN ---
ENCOUNTER DATE AND TIME: 06/20/2019 17:42 (CDT) NAME Kavin Armijo DATE OF : 1955 DATE OF ADMISSION: 06/17/2019 14:48 (CDT) Acute on chronic renal failureCHIEF COMPLAINT: Debility, acute on chronic renal failure SUBJECTIVE: Pt denied any depression. Pt denied any Shortness of Breath. He is making fair overall progress with physical and occupational therapy. Blood work is stable. VITAL SIGNS Temperature: 97.4 F SBP/DBP: 123/58 Pulse: 62 Resp: 18 MEDICATION ALLERGIES: No Known Drug Allergies (NKDA) ENVIRONMENTAL ALLERGIES: - Substance Allergies None Known - Other Allergies None Known NURSING: - Shower allowing shower ACTIVITIES OOB only with supervision THERAPIES: - Dietary and Nutrition Adequate Nutrition. Nutritional Education. Nutritional Supplements. PHYSICAL EXAM - Gen Alert and awake Lying in bed No apparent distress Oriented to: person, time, and place - Skin No skin breakdown. Normacephalic - Eyes No abnormalities - ENMT No abnormalities - Neck No abnormalities - CVS RRR - Chest No abnormalities - Abd Soft - GI Non distended Deferred - No abnormalities - Ext Mild bilateral lower extremity edema. - MSK 4/5 weakness in both lower extremities. - Neuro No focal deficits - Psych No abnormalities ASSESSMENT: Pt. is a 64 yo Right-handed white male.On 06/16/2019 he was admitted to [facility] with diagnosis Acute on chronic renal failure.His impairment category is Medically Complex Condit ions 17 - Other Medically Complex Conditions (17.9).Pre-morbidly, Pt. was independent/mod-I in Self- Care, Sphincter Control, Transfers Control, and Locomotion; and he had good Sphincter Control.Current ly, he has deficits of Self-Care, Transfers Control, Locomotion, Communication, Social Cognition, End urance, Balance, and Safety Awareness.Pt. is now referred to [facility] [place] [facility] in order to maximize patient's functional independence in activities of daily living, strength, ROM, and mobility.- Rehab Goal Patient has realistic goal of being discharged at assistance level 6-Te to reside at Home with Fam nathalia/Relatives. MDM/PLAN: - Physical Therapy Gait dysfunction - to improve, our physical therapists will perform initial evaluation of pt's statu s upon admission and devise an individualized program for Gait Training, and Wheel Chair mobility Inability to transfer - to improve, our physical therapists will perform initial evaluation of pt's status upon admission and devise an individualized program for Bed mobility Need for home safety evaluation - to improve, our physical therapists will perform initial evaluatio n of pt's status upon admission and devise an individualized program for Home Evaluation Need in caregiver upon discharge - to improve, our physical therapists will perform initial evaluati on of pt's status upon admission and devise an individualized program for Caregiver Training Edema - to improve, our physical therapists will perform initial evaluation of pt's status upon admis devaughn and devise an individualized program for Elevation Training, and Lymphedema Therapy New precaution - to improve, our physical therapists will perform initial evaluation of pt's status upon admission and devise an individualized program for Patient precaution education Poor balance - to improve, our physical therapists will perform initial evaluation of pt's status up on admission and devise an individualized program for Balance Training Poor endurance - to improve, our physical therapists will perform initial evaluation of pt's status upon admission and devise an individualized program for Endurance Training Weakness - to improve, our physical therapists will perform initial evaluation of pt's status upon a dmission and devise an individualized program for Aquatic Therapy, Neuromuscular Reeducation, and Str engthening Achieving independence - to improve, our physical therapists will perform initial evaluation of pt's status upon admission and devise an individualized program for Community Reintegration Activities - Occupational Therapy ADL deficits - to improve, our occupation therapists will perform initial evaluation of pt's status upon admission and devise an individualized program for Bathing, Bed mobility, Community Reintegratio n, Cooking, Dressing, Eating, Fine Motor Skills, Grooming, Homemaking, Kitchen Mobility, Laundry, Pat ient Education, Safety Awareness, Splinting - Positioning, Transfers(Toilet, Tub, Shower), and Wheel Chair Management Cognitive deficits - to improve, our occupation therapists will perform initial evaluation of pt's s tatus upon admission and devise an individualized program for Cognition - orientation Need for nursing care attendant - to improve, our occupation therapists will perform initial evaluation of pt's status upon admission and devise an individualized program for Caregiver Training Weakness - to improve, our occupation therapists will perform initial evaluation of pt's status upon admission and devise an individualized program for Aquatic Therapy, Balance, Endurance, UE ROM, and UE strengthening - Other See attached MAR (Medication Administration Record) - Diet Type Continue Regular - Diet - Liquid Texture Continue Regular - Tube Feed Continue N/A - Diet - Solid Texture Continue Regular - Shower allowing shower FUNCTIONAL STATUS: UPDATED AT WEEKLY TEAM CONFERENCE - Bladder Same accident frequency: 7-Ind - No accidents in the past 7 days - Bowel Same accident frequency: 7-Ind - No accidents in the past 7 days - Walking Same score based on distance walked: 1(<=50ft) - Wheelchair Same score based on distance traveled: 1(<=50ft) FUNCTIONAL STATUS: - Self-Care A. Eating sup B. Grooming sup C. Bathing modA D. Dressing - Upper [place]ax[place] E. Dressing - Lower maxA F. Toileting Daxa - Sphincter Control G: Bladder control Ind H: Bowel control Ind - Transfers Control I. Bed/Chair/Wheelchair Daxa J. Toilet Daxa K. Tub/Shower Daxa - Locomotion L. Walk/Wheelchair (C) Dep L. Walk/Wheelchair (W) ADNO M. Stairs Ind - Communication N. Comprehension (B) Daxa O. Expression (B) Daxa - Social Cognition P. Social Interaction Daxa Q. Problem Solving Daxa R. Memory Daxa - Endurance Poor - Balance Fair - Safety Awareness Poor QI SCORES: - Self-Care A. Eating 05-Setup or clean-up assistance B. Oral hygiene 05-Setup or clean-up assistance C. Toileting hygiene 04-Supervision or touching assistance E. Shower/bathe self 03-Partial/moderate assistance F. Upper body dressing 04-Supervision or touching assistance G. Lower body dressing 02-Substantial/maximal assistance H. Putting on/taking off footwear 02-Substantial/maximal assistance - Mobility A. Roll left and right 03-Partial/moderate assistance B. Sit to lying 03-Partial/moderate assistance C. Lying to sitting on side of bed 03-Partial/moderate assistance D. Sit to stand 04-Supervision or touching assistance E. Chair/cop-sl-rzqah transfer 04-Supervision or touching assistance F. Toilet transfer 04-Supervision or touching assistance G. Car transfer 88-Not attempted due to medical condition or safety concerns I. Walk 10 feet 03-Partial/moderate assistance J. Walk 50 feet with two turns 88-Not attempted due to medical condition or safety concerns K. Walk 150 feet 88-Not attempted due to medical condition or safety concerns L. Walking 10 feet on uneven surfaces 88-Not attempted due to medical condition or safety concerns M. 1 step (curb) 88-Not attempted due to medical condition or safety concerns N. 4 steps 88-Not attempted due to medical condition or safety concerns O. 12 steps 88-Not attempted due to medical condition or safety concerns P. Picking up object 88-Not attempted due to medical condition or safety concerns R. Wheel 50 feet with two turns 88-Not attempted due to medical condition or safety concerns S. Wheel 150 feet 88-Not attempted due to medical condition or safety concerns - Bladder and Bowel Bladder continence 0-Always continent Bowel continence 0-Always continent [facility] DEFIC[facility]: Self-Care, Transfers Control, Locomotion, Communication, Social Cognition, Endurance, Balance, and Sa fety Awareness SIGNATURE PANEL: (CDT)
--- NOTE | 2019-07-19 11:53 | FAST ---
ENCOUNTER DATE AND TIME: 06/23/2019 08:00 (CDT) NAME Kavin Armijo DATE OF : 1955 DATE OF ADMISSION: 06/17/2019 14:48 (CDT) PHONE: AGE: 64 N# [id number] GENDER: Male ENCOUNTER PHYSICIAN: Dr. Ezra Stacy M.D. ADMISSION DIAGNOSIS: - Medically Complex Conditions 17 - Other Medically Complex Conditions (17.9) Acute on chronic renal failure. ROLL LEFT AND RIGHT: ROLL LEFT AND RIGHT - STEP 1: Does the patient complete the activity by him/herself with no assistance (physical, verbal/nonverbal cueing, setup/clean-up)? No. ROLL LEFT AND RIGHT - STEP 2: Does the patient need only setup/clean-up assistance from one helper? Yes. 1. [id number] ADMISSION PERFORMANCE: Setup or clean-up assistance CODE: 05 SIT TO LYING: SIT TO LYING - STEP 1: Does the patient complete the activity by him/herself with no assistance (physical, verbal/nonverbal cueing, setup/clean-up)? No. SIT TO LYING - STEP 2: Does the patient need only setup/clean-up assistance from one helper? Yes. 1. [id number] ADMISSION PERFORMANCE: Setup or clean-up assistance CODE: 05 LYING TO SITTING: LYING TO SITTING ON SIDE OF BED - STEP 1: Does the patient complete the activity by him/herself with no assistance (physical, verbal/nonverbal cueing, setup/clean-up)? No. LYING TO SITTING ON SIDE OF BED - STEP 2: Does the patient need only setup/clean-up assistance from one helper? Yes. 1. [id number] ADMISSION PERFORMANCE: Setup or clean-up assistance CODE: 05 SIT TO STAND: SIT TO STAND - STEP 1: Does the patient complete the activity by him/herself with no assistance (physical, verbal/nonverbal cueing, setup/clean-up)? No. SIT TO STAND - STEP 2: Does the patient need only setup/clean-up assistance from one helper? Yes. 1. [id number] ADMISSION PERFORMANCE: Setup or clean-up assistance CODE: 05 TRANSFERS: BED, CHAIR: CHAIR/[id number] TRANSFER - STEP 1: Does the patient complete the activity by him/herself with no assistance (physical, verbal/nonverbal cueing, setup/clean-up)? No. [id number] TRANSFER - STEP 2: Does the patient need only setup/clean-up assistance from one helper? Yes. 1. [id number] ADMISSION PERFORMANCE: Setup or clean-up assistance CODE: 05 TRANSFER TOILET: TOILET TRANSFER - STEP 1: Does the patient complete the activity by him/herself with no assistance (physical, verbal/nonverbal cueing, setup/clean-up)? No. TOILET TRANSFER - STEP 2: Does the patient need only setup/clean-up assistance from one helper? Yes. 1. [id number] ADMISSION PERFORMANCE: Setup or clean-up assistance CODE: 05 TRANSFERS: CAR: Not assessed/no information CODE: - WALK 10 FEET: WALK 10 FEET - STEP 1: Does the patient complete the activity by him/herself with no assistance (physical, verbal/nonverbal cueing, setup/clean-up)? No. WALK 10 FEET - STEP 2: Does the patient need only setup/clean-up assistance from one helper? Yes. 1. [id number] ADMISSION PERFORMANCE: Setup or clean-up assistance CODE: 05 WALK 50 FEET: WALK 50 FEET - STEP 1: Does the patient complete the activity by him/herself with no assistance (physical, verbal/nonverbal cueing, setup/clean-up)? No. WALK 50 FEET - STEP 2: Does the patient need only setup/clean-up assistance from one helper? Yes. 1. [id number] ADMISSION PERFORMANCE: Setup or clean-up assistance CODE: 05 WALK 150 FEET: WALK 150 FEET - STEP 1: Does the patient complete the activity by him/herself with no assistance (physical, verbal/nonverbal cueing, setup/clean-up)? No. WALK 150 FEET - STEP 2: Does the patient need only setup/clean-up assistance from one helper? Yes. 1. [id number] ADMISSION PERFORMANCE: Setup or clean-up assistance CODE: 05 WALK 10 FEET UNEVEN: Not assessed/no information CODE: - 1 STEP (CURB): 1 STEP CURB - STEP 1: Does the patient complete the activity by him/herself with no assistance (physical, verbal/nonverbal cueing, setup/clean-up)? No. 1 STEP CURB - STEP 2: Does the patient need only setup/clean-up assistance from one helper? Yes. 1. [id number] ADMISSION PERFORMANCE: Setup or clean-up assistance CODE: 05 4 STEPS: 4 STEPS - STEP 1: Does the patient complete the activity by him/herself with no assistance (physical, verbal/nonverbal cueing, setup/clean-up)? No. 4 STEPS - STEP 2: Does the patient need only setup/clean-up assistance from one helper? Yes. 1. [id number] ADMISSION PERFORMANCE: Setup or clean-up assistance CODE: 05 12 STEPS: 12 STEPS - STEP 1: Does the patient complete the activity by him/herself with no assistance (physical, verbal/nonverbal cueing, setup/clean-up)? No. 12 STEPS - STEP 2: Does the patient need only setup/clean-up assistance from one helper? Yes. 1. [id number] ADMISSION PERFORMANCE: Setup or clean-up assistance CODE: 05 PICKING UP OBJECT: Not assessed/no information CODE: - DOES THE PATIENT USE A WHEELCHAIR/SCOOTER? Q1. DOES THE PATIENT USE A WHEELCHAIR/SCOOTER?: Yes CODE: 1 WHEEL 50 FEET WITH TWO TURNS: WHEEL 50 FEET WITH TWO TURNS - STEP 1: Does the patient complete the activity by him/herself with no assistance (physical, verbal/nonverbal cueing, setup/clean-up)? Yes. 1. [id number] ADMISSION PERFORMANCE: Independent CODE: 06 INDICATE THE TYPE OF WHEELCHAIR/SCOOTER USED: RR1. INDICATE THE TYPE OF WHEELCHAIR/SCOOTER USED.: Manual CODE: 1 WHEEL 150 FEET: WHEEL 150 FEET - STEP 1: Does the patient complete the activity by him/herself with no assistance (physical, verbal/nonverbal cueing, setup/clean-up)? Yes. 1. [id number] ADMISSION PERFORMANCE: Independent CODE: 06 INDICATE THE TYPE OF WHEELCHAIR/SCOOTER USED: SS1. INDICATE THE TYPE OF WHEELCHAIR/SCOOTER USED.: Manual CODE: 1 BLADDER AND BOWEL: CODE: EXPR CODE: EXPR SIGNATURE PANEL: The following modified sections: 1. [id number] Admission Performance, 1. [id number] Admission Performance, 1. [id number] Admission Performance, 1. [id number] Admission Performance, 1. [id number] Admission Performance, 1. [id number] Admission Performance, 1. [id number] Admission Performance, 1. [id number] Admission Performance , 1. [id number] Admission Performance, 1. [id number] Admission Performance, 1. [id number] Admission Performanc e, 1. [id number] Admission Performance, Q1. Does the patient use a wheelchair/scooter?, 1. [id number] Admis devaughn Performance, RR1. Indicate the type of wheelchair/scooter used., 1. [id number] Admission Performanc e, Code, SS1. Indicate the type of wheelchair/scooter used. were [electronically] signed by Suman perry PTA on Mirta Jun 23 2019 15:12:07 GMT-0500 (Central Daylight Time)
--- NOTE | 2019-07-19 11:53 | FAST ---
ENCOUNTER DATE AND TIME: 06/22/2019 08:00 (CDT) NAME Kavin Armijo DATE OF : 1955 DATE OF ADMISSION: 06/17/2019 14:48 (CDT) PHONE: AGE: 64 N# [id number] GENDER: Male ENCOUNTER PHYSICIAN: Dr. Ezra Stacy M.D. ADMISSION DIAGNOSIS: - Medically Complex Conditions 17 - Other Medically Complex Conditions (17.9) Acute on chronic renal failure. EATING: EATING - STEP 1: Does the patient complete the activity by him/herself with no assistance (physical, verbal/nonverbal cueing, setup/clean-up)? Yes. 1. [id number] ADMISSION PERFORMANCE: Independent CODE: 06 ORAL HYGIENE: ORAL HYGIENE - STEP 1: Does the patient complete the activity by him/herself with no assistance (physical, verbal/nonverbal cueing, setup/clean-up)? Yes. 1. [id number] ADMISSION PERFORMANCE: Independent CODE: 06 TOILETING HYGIENE: Not assessed/no information CODE: - BATHING: SHOWER/BATHE SELF - STEP 1: Does the patient complete the activity by him/herself with no assistance (physical, verbal/nonverbal cueing, setup/clean-up)? No. SHOWER/BATHE SELF - STEP 2: Does the patient need only setup/clean-up assistance from one helper? Yes. 1. [id number] ADMISSION PERFORMANCE: Setup or clean-up assistance CODE: 05 DRESSING - UPPER BODY: DRESSING - UPPER BODY - STEP 1: Does the patient complete the activity by him/herself with no assistance (physical, verbal/nonverbal cueing, setup/clean-up)? Yes. 1. [id number] ADMISSION PERFORMANCE: Independent CODE: 06 DRESSING - LOWER BODY: DRESSING - LOWER BODY - STEP 1: Does the patient complete the activity by him/herself with no assistance (physical, verbal/nonverbal cueing, setup/clean-up)? No. DRESSING - LOWER BODY - STEP 2: Does the patient need only setup/clean-up assistance from one helper? Yes. 1. [id number] ADMISSION PERFORMANCE: Setup or clean-up assistance CODE: 05 PUTTING ON/TAKING OFF FOOTWEAR: FOOTWEAR - STEP 1: Does the patient complete the activity by him/herself with no assistance (physical, verbal/nonverbal cueing, setup/clean-up)? No. FOOTWEAR - STEP 2: Does the patient need only setup/clean-up assistance from one helper? Yes. 1. [id number] ADMISSION PERFORMANCE: Setup or clean-up assistance CODE: 05 DOES THE PATIENT USE A WHEELCHAIR/SCOOTER? CODE: EXPR INDICATE THE TYPE OF WHEELCHAIR/SCOOTER USED: CODE: EXPR INDICATE THE TYPE OF WHEELCHAIR/SCOOTER USED: CODE: EXPR BLADDER AND BOWEL: CODE: EXPR CODE: EXPR SIGNATURE PANEL: The following modified sections: 1. [id number] Admission Performance, 1. [id number] Admission Performance, 1. [id number] Admission Performance, 1. [id number] Admission Performance, 1. [id number] Admission Performance, 1. [id number] Admission Performance, 1. [id number] Admission Performance, 1. [id number] Admission Performance were [electronically] signed by Cynthia Osman OT on ThuJun 24 2019 08:55:24 T-0500 ([facility]
--- NOTE | 2019-07-19 11:53 | R.HP ---
FACILITY: [facility] ENCOUNTER DATE AND TIME: 06/17/2019 17:38 (CDT) MR#: [id number] NAME Kavin Armijo ADDRESS: [address] [place] [address]: [place] STATE: [place] [address]IP [id number] PHONE: DATE OF : 1955 AGE: 64 SSN# [id number] GENDER: Male DEXTERITY Right-handed MARITAL STATUS RACE White PRE-HOSPITAL LIVING SETTING 01 - Home (private home/apt. board/care, assisted living, residential, transitional living) PRE-HOSPITAL LIVING WITH Family/Relatives ENCOUNTER PHYSICIAN: Dr. Ezra Stacy M.D. REFERRING DOCTOR: LUIS AGUILERA DATE OF ADMISSION: 06/17/2019 14:48 (CDT) REFERRING FACILITY [facility] HOME TYPE AND DETAILS: Type of home: single family house # of steps to enter the residence: 2 # of steps within the residence: 0 # of levels in the residence: 1 ADMISSION DIAGNOSIS: Acute on chronic renal failure PRIMARY DIAGNOSIS-RELATED SURGERIES: No surgeries related to the primary diagnosis were performed. SECONDARY/COMORBID DIAGNOSES (TIERED): - Non-Tiered thrombocytopenia - N/A diverticulitis elevated PSA testicular hypogonadism bipolar disorder HISTORY OF PRESENT ILLNESS (HPI): Pt. is a 64 yo Right-handed white male. On 06/16/2019 he was admitted to [facility] with diagnosis Acute on chronic angelika al failure. His impairment category is Medically Complex Conditions 17 - Other Medically Complex Conditions (17. 9). Pre-morbidly, Pt. was independent/mod-I in Self-Care, Sphincter Control, Transfers Control, and Locom otion; and he had good Sphincter Control. Currently, he has deficits of Self-Care, Transfers Control, Locomotion, Communication, Social Cogniti on, Endurance, Balance, and Safety Awareness. Pt. is now referred to [facility] for acute in-patient rehabilitation in order to maximize patient's functional independence in activities of daily living, strength, ROM, and mobi lity. Patient has realistic goal of being discharged at assistance level 6-Te to reside at Home with Fam nathalia/Relatives. MEDICATION ALLERGIES: No Known Drug Allergies (NKDA) ENVIRONMENTAL ALLERGIES: - Substance Allergies None Known - Other Allergies None Known PAST MEDICAL HISTORY: bipolar disorder diverticulitis elevated PSA testicular hypogonadism thrombocytopenia FAMILY HISTORY: Family history is not contributory. SOCIAL HISTORY: - Home Living Family/Relatives REVIEW OF SYSTEMS: - Gen No Chills No Fatigue No Fever - Eyes No Double Vision No itchiness - ENMT No Difficulty Swallowing - CVS No Chest Discomfort No Chest Pain No Fatigue No Weight Gain - Resp No Cough No Shortness of Breath - GI Continent No Abdominal Pain No Constipation No Diarrhea - Continent No Kidney Pain No Painful Urination No Urinary Urgency - MSK No Joint Pain No Muscle Cramps No Stiffness - Skin No Itching No Rash No Suspicious Lesions - Neuro No Coordination Difficulty No Difficulty with Concentration No Memory Loss No Seizures No Weakness - Psych No Anxiety No Depression No HIV Exposure No Persistent Infections No Seasonal Allergies - Endo No Cold/Heat Intolerance No Excessive Hunger No Excessive Thirst No Excessive Urination PHYSICAL EXAM - Gen Alert and awake Lying in bed No apparent distress Oriented to: person, time, and place - Skin No skin breakdown. Normacephalic - Eyes No abnormalities - ENMT No abnormalities - Neck No abnormalities - CVS RRR - Chest No abnormalities - Abd Soft - GI Non distended Deferred - No abnormalities - Ext Mild bilateral lower extremity edema. - MSK 4/5 weakness in both lower extremities. - Neuro No focal deficits - Psych No abnormalities VITAL SIGNS Temperature: 97.4 F SBP/DBP: 123/58 Pulse: 62 Resp: 18 NURSING: - Shower allowing shower ACTIVITIES OOB only with supervision FUNCTIONAL STATUS: - Self-Care A. Eating Ind sup B. Grooming Ind sup C. Bathing Ind modA D. Dressing - Upper Ind Daxa E. Dressing - Lower Ind maxA F. Toileting Ind Daxa - Sphincter Control G: Bladder control Ind Ind H: Bowel control Ind Ind - Transfers Control I. Bed/Chair/Wheelchair Ind Daxa J. Toilet Ind Daxa K. Tub/Shower Ind Daxa - Locomotion L. Walk/Wheelchair (C) Te Dep L. Walk/Wheelchair (W) ADNO ADNO M. Stairs Ind Ind - Communication N. Comprehension (B) sup Daxa O. Expression (B) Daxa Daxa - Social Cognition P. Social Interaction sup Daxa Q. Problem Solving sup Daxa R. Memory Daxa Daxa - Endurance Poor - Balance Fair - Safety Awareness Poor QI SCORES: - Self-Care A. Eating 05-Setup or clean-up assistance B. Oral hygiene 05-Setup or clean-up assistance C. Toileting hygiene 04-Supervision or touching assistance E. Shower/bathe self 03-Partial/moderate assistance F. Upper body dressing 04-Supervision or touching assistance G. Lower body dressing 02-Substantial/maximal assistance H. Putting on/taking off footwear 02-Substantial/maximal assistance - Mobility A. Roll left and right 03-Partial/moderate assistance B. Sit to lying 03-Partial/moderate assistance C. Lying to sitting on side of bed 03-Partial/moderate assistance D. Sit to stand 04-Supervision or touching assistance E. Chair/fij-jh-zyxrd transfer 04-Supervision or touching assistance F. Toilet transfer 04-Supervision or touching assistance G. Car transfer 88-Not attempted due to medical condition or safety concerns I. Walk 10 feet 03-Partial/moderate assistance J. Walk 50 feet with two turns 88-Not attempted due to medical condition or safety concerns K. Walk 150 feet 88-Not attempted due to medical condition or safety concerns L. Walking 10 feet on uneven surfaces 88-Not attempted due to medical condition or safety concerns M. 1 step (curb) 88-Not attempted due to medical condition or safety concerns N. 4 steps 88-Not attempted due to medical condition or safety concerns O. 12 steps 88-Not attempted due to medical condition or safety concerns P. Picking up object 88-Not attempted due to medical condition or safety concerns R. Wheel 50 feet with two turns 88-Not attempted due to medical condition or safety concerns S. Wheel 150 feet 88-Not attempted due to medical condition or safety concerns - Bladder and Bowel Bladder continence 0-Always continent Bowel continence 0-Always continent CURRENT FUNC. DEFICITS: Self-Care, Transfers Control, Locomotion, Communication, Social Cognition, Endurance, Balance, and Sa fety Awareness MEDICATIONS: - Other See attached MAR (Medication Administration Record) ASSESSMENT: Pt. is a 64 yo Right-handed white male.On 06/16/2019 he was admitted to [facility] with diagnosis Acute on chronic renal failure.His impairment category is Medically Complex Condit ions 17 - Other Medically Complex Conditions (17.9).Pre-morbidly, Pt. was independent/mod-I in Self- Care, Sphincter Control, Transfers Control, and Locomotion; and he had good Sphincter Control.Current ly, he has deficits of Self-Care, Transfers Control, Locomotion, Communication, Social Cognition, End urance, Balance, and Safety Awareness.Pt. is now referred to [facility] for ac inaja in-patient rehabilitation in order to maximize patient's functional independence in activities of daily living, strength, ROM, and mobility.- Rehab Goal Patient has realistic goal of being discharged at assistance level 6-Te to reside at Home with Fam nathalia/Relatives. - Physical Therapy Gait dysfunction - to improve, our physical therapists will perform initial evaluation of pt's status upon admission and devise an individualized program for Gait Training, and Wheel Chair mobility Inability to transfer - to improve, our physical therapists will perform initial evaluation of pt's s tatus upon admission and devise an individualized program for Bed mobility Need for home safety evaluation - to improve, our physical therapists will perform initial evaluation of pt's status upon admission and devise an individualized program for Home Evaluation Need in caregiver upon discharge - to improve, our physical therapists will perform initial evaluatio n of pt's status upon admission and devise an individualized program for Caregiver Training New precaution - to improve, our physical therapists will perform initial evaluation of pt's status u kian admission and devise an individualized program for Patient precaution education Edema - to improve, our physical therapists will perform initial evaluation of pt's status upon admi ssion and devise an individualized program for Elevation Training, and Lymphedema Therapy Poor balance - to improve, our physical therapists will perform initial evaluation of pt's status upo n admission and devise an individualized program for Balance Training Poor endurance - to improve, our physical therapists will perform initial evaluation of pt's status u kian admission and devise an individualized program for Endurance Training Weakness - to improve, our physical therapists will perform initial evaluation of pt's status upon ad mission and devise an individualized program for Aquatic Therapy, Neuromuscular Reeducation, and Stre ngthening Achieving independence - to improve, our physical therapists will perform initial evaluation of pt's status upon admission and devise an individualized program for Community Reintegration Activities - Occupational Therapy ADL deficits - to improve, our occupation therapists will perform initial evaluation of pt's status u kian admission and devise an individualized program for Bathing, Bed mobility, Community Reintegration , Cooking, Dressing, Eating, Fine Motor Skills, Grooming, Homemaking, Kitchen Mobility, Laundry, Solange ent Education, Safety Awareness, Splinting - Positioning, Transfers(Toilet, Tub, Shower), and Wheel C hair Management Cognitive deficits - to improve, our occupation therapists will perform initial evaluation of pt's st atus upon admission and devise an individualized program for Cognition - orientation Need for insurance healthcare representative - to improve, our occupation therapists will perform initial evaluation of pt's s tatus upon admission and devise an individualized program for Caregiver Training Weakness - to improve, our occupation therapists will perform initial evaluation of pt's status upon admission and devise an individualized program for Aquatic Therapy, Balance, Endurance, UE ROM, and U E strengthening MEDICAL PLAN: - Diet Type Start Regular - Diet - Liquid Texture Start Regular - Tube Feed Start N/A - Other See attached MAR (Medication Administration Record) - Diet - Solid Texture Regular - Shower shower DISCHARGE PLAN: - Estimated Length of Stay (days) 13. - Consensus on plan Discharge plan has been discussed with primary caregiver. Patient/Family is in agreement with the [place] n. Primary caregiver is in agreement with the plan. - Patient/Family Goals Return home with assistance. - Planned Living Setting Upon Discharge Home, to live with Family/Relatives. SIGNATURE PANEL: (CDT)
--- NOTE | 2019-07-19 11:53 | FAST ---
ENCOUNTER DATE AND TIME: 06/24/2019 08:00 (CDT) NAME Kavin Armijo DATE OF : 1955 DATE OF ADMISSION: 06/17/2019 14:48 (CDT) PHONE: AGE: 64 N# [id number] GENDER: Male ENCOUNTER PHYSICIAN: Dr. Ezra Stacy M.D. ADMISSION DIAGNOSIS: - Medically Complex Conditions 17 - Other Medically Complex Conditions (17.9) Acute on chronic renal failure. EATING: Not assessed/no information CODE: - ORAL HYGIENE: Not assessed/no information CODE: - TOILETING HYGIENE: Not assessed/no information CODE: - BATHING: SHOWER/BATHE SELF - STEP 1: Does the patient complete the activity by him/herself with no assistance (physical, verbal/nonverbal cueing, setup/clean-up)? No. SHOWER/BATHE SELF - STEP 2: Does the patient need only setup/clean-up assistance from one helper? No. SHOWER/BATHE SELF - STEP 3: Does the patient need only verbal/nonverbal cueing or touching/steadying/contact guard assistance fro m one helper? Yes. 1. [id number] ADMISSION PERFORMANCE: Supervision or touching assistance CODE: 04 DRESSING - UPPER BODY: DRESSING - UPPER BODY - STEP 1: Does the patient complete the activity by him/herself with no assistance (physical, verbal/nonverbal cueing, setup/clean-up)? Yes. 1. [id number] ADMISSION PERFORMANCE: Independent CODE: 06 DRESSING - LOWER BODY: DRESSING - LOWER BODY - STEP 1: Does the patient complete the activity by him/herself with no assistance (physical, verbal/nonverbal cueing, setup/clean-up)? No. DRESSING - LOWER BODY - STEP 2: Does the patient need only setup/clean-up assistance from one helper? No. DRESSING - LOWER BODY - STEP 3: Does the patient need only verbal/nonverbal cueing or touching/steadying/contact guard assistance fro m one helper? Yes. 1. [id number] ADMISSION PERFORMANCE: Supervision or touching assistance CODE: 04 PUTTING ON/TAKING OFF FOOTWEAR: FOOTWEAR - STEP 1: Does the patient complete the activity by him/herself with no assistance (physical, verbal/nonverbal cueing, setup/clean-up)? No. FOOTWEAR - STEP 2: Does the patient need only setup/clean-up assistance from one helper? No. FOOTWEAR - STEP 3: Does the patient need only verbal/nonverbal cueing or touching/steadying/contact guard assistance fro m one helper? Yes. 1. [id number] ADMISSION PERFORMANCE: Supervision or touching assistance CODE: 04 DOES THE PATIENT USE A WHEELCHAIR/SCOOTER? CODE: EXPR INDICATE THE TYPE OF WHEELCHAIR/SCOOTER USED: CODE: EXPR INDICATE THE TYPE OF WHEELCHAIR/SCOOTER USED: CODE: EXPR BLADDER AND BOWEL: CODE: EXPR CODE: EXPR SIGNATURE PANEL: The following modified sections: 1. [id number] Admission Performance, 1. [id number] Admission Performance, 1. [id number] Admission Performance, 1. [id number] Admission Performance, 1. [id number] Admission Performance, 1. [id number] Admission Performance, 1. [id number] Admission Performance were [electronically] signed by KIMANI Richardson on ThuJun 24 2019 14:43:12 T-0500 (Central Daylight Time)
--- NOTE | 2019-07-19 11:53 | R.PN ---
ENCOUNTER DATE AND TIME: 06/22/2019 17:12 (CDT) NAME Kavin Armijo DATE OF : 1955 DATE OF ADMISSION: 06/17/2019 14:48 (CDT) Acute on chronic renal failureCHIEF COMPLAINT: Debility, acute on chronic renal failure SUBJECTIVE: Pt denied any depression. Pt denied any Shortness of Breath. He is making fair overall progress with physical and occupational therapy. Blood work is stable. Blood work is reviewed and stable. VITAL SIGNS Temperature: 97.2 F SBP/DBP: 125/68 Pulse: 75 Resp: 16 MEDICATION ALLERGIES: No Known Drug Allergies (NKDA) ENVIRONMENTAL ALLERGIES: - Substance Allergies None Known - Other Allergies None Known NURSING: - Shower allowing shower ACTIVITIES OOB only with supervision THERAPIES: - Dietary and Nutrition Adequate Nutrition. Nutritional Education. Nutritional Supplements. PHYSICAL EXAM - Gen Alert and awake Lying in bed No apparent distress Oriented to: person, time, and place - Skin No skin breakdown. Normacephalic - Eyes No abnormalities - ENMT No abnormalities - Neck No abnormalities - CVS RRR - Chest No abnormalities - Abd Soft - GI Non distended Deferred - No abnormalities - Ext Mild bilateral lower extremity edema. - MSK 4/5 weakness in both lower extremities. - Neuro No focal deficits - Psych No abnormalities ASSESSMENT: Pt. is a 64 yo Right-handed white male.On 06/16/2019 he was admitted to [facility] with diagnosis Acute on chronic renal failure.His impairment category is Medically Complex Condit ions 17 - Other Medically Complex Conditions (17.9).Pre-morbidly, Pt. was independent/mod-I in Self- Care, Sphincter Control, Transfers Control, and Locomotion; and he had good Sphincter Control.Current ly, he has deficits of Self-Care, Transfers Control, Locomotion, Communication, Social Cognition, End urance, Balance, and Safety Awareness.Pt. is now referred to [facility] for ac jm in-patient rehabilitation in order to maximize patient's functional independence in activities of daily living, strength, ROM, and mobility.- Rehab Goal Patient has realistic goal of being discharged at assistance level 6-Te to reside at Home with Fam nathalia/Relatives. MDM/PLAN: - Physical Therapy Gait dysfunction - to improve, our physical therapists will perform initial evaluation of pt's statu s upon admission and devise an individualized program for Gait Training, and Wheel Chair mobility Inability to transfer - to improve, our physical therapists will perform initial evaluation of pt's status upon admission and devise an individualized program for Bed mobility Need for home safety evaluation - to improve, our physical therapists will perform initial evaluatio n of pt's status upon admission and devise an individualized program for Home Evaluation Need in caregiver upon discharge - to improve, our physical therapists will perform initial evaluati on of pt's status upon admission and devise an individualized program for Caregiver Training Edema - to improve, our physical therapists will perform initial evaluation of pt's status upon admi ssion and devise an individualized program for Elevation Training, and Lymphedema Therapy New precaution - to improve, our physical therapists will perform initial evaluation of pt's status upon admission and devise an individualized program for Patient precaution education Poor balance - to improve, our physical therapists will perform initial evaluation of pt's status up on admission and devise an individualized program for Balance Training Poor endurance - to improve, our physical therapists will perform initial evaluation of pt's status upon admission and devise an individualized program for Endurance Training Weakness - to improve, our physical therapists will perform initial evaluation of pt's status upon a dmission and devise an individualized program for Aquatic Therapy, Neuromuscular Reeducation, and Str engthening Achieving independence - to improve, our physical therapists will perform initial evaluation of pt's status upon admission and devise an individualized program for Community Reintegration Activities - Occupational Therapy ADL deficits - to improve, our occupation therapists will perform initial evaluation of pt's status upon admission and devise an individualized program for Bathing, Bed mobility, Community Reintegratio n, Cooking, Dressing, Eating, Fine Motor Skills, Grooming, Homemaking, Kitchen Mobility, Laundry, Pat ient Education, Safety Awareness, Splinting - Positioning, Transfers(Toilet, Tub, Shower), and Wheel Chair Management Cognitive deficits - to improve, our occupation therapists will perform initial evaluation of pt's s tatus upon admission and devise an individualized program for Cognition - orientation Need for career education teacher - to improve, our occupation therapists will perform initial evaluation of pt's status upon admission and devise an individualized program for Caregiver Training Weakness - to improve, our occupation therapists will perform initial evaluation of pt's status upon admission and devise an individualized program for Aquatic Therapy, Balance, Endurance, UE ROM, and UE strengthening - Other See attached MAR (Medication Administration Record) - Diet Type Continue Regular - Diet - Liquid Texture Continue Regular - Tube Feed Continue N/A - Diet - Solid Texture Continue Regular - Shower allowing shower FUNCTIONAL STATUS: UPDATED AT WEEKLY TEAM CONFERENCE - Bladder Same accident frequency: 7-Ind - No accidents in the past 7 days - Bowel Same accident frequency: 7-Ind - No accidents in the past 7 days - Walking Same score based on distance walked: 1(<=50ft) - Wheelchair Same score based on distance traveled: 1(<=50ft) FUNCTIONAL STATUS: - Self-Care A. Eating sup B. Grooming sup C. Bathing modA D. Dressing - Upper Daxa E. Dressing - Lower maxA F. Toileting Daxa - Sphincter Control G: Bladder control Ind H: Bowel control Ind - Transfers Control I. Bed/Chair/Wheelchair Daxa J. Toilet Daxa K. Tub/Shower Daxa - Locomotion L. Walk/Wheelchair (C) Dep L. Walk/Wheelchair (W) ADNO M. Stairs Ind - Communication N. Comprehension (B) Daxa O. Expression (B) Daxa - Social Cognition P. Social Interaction Daxa Q. Problem Solving Daxa R. Memory Daxa - Endurance Poor - Balance Fair - Safety Awareness Poor QI SCORES: - Self-Care A. Eating 05-Setup or clean-up assistance B. Oral hygiene 05-Setup or clean-up assistance C. Toileting hygiene 04-Supervision or touching assistance E. Shower/bathe self 03-Partial/moderate assistance F. Upper body dressing 04-Supervision or touching assistance G. Lower body dressing 02-Substantial/maximal assistance H. Putting on/taking off footwear 02-Substantial/maximal assistance - Mobility A. Roll left and right 03-Partial/moderate assistance B. Sit to lying 03-Partial/moderate assistance C. Lying to sitting on side of bed 03-Partial/moderate assistance D. Sit to stand 04-Supervision or touching assistance E. Chair/tks-of-zomgf transfer 04-Supervision or touching assistance F. Toilet transfer 04-Supervision or touching assistance G. Car transfer 88-Not attempted due to medical condition or safety concerns I. Walk 10 feet 03-Partial/moderate assistance J. Walk 50 feet with two turns 88-Not attempted due to medical condition or safety concerns K. Walk 150 feet 88-Not attempted due to medical condition or safety concerns L. Walking 10 feet on uneven surfaces 88-Not attempted due to medical condition or safety concerns M. 1 step (curb) 88-Not attempted due to medical condition or safety concerns N. 4 steps 88-Not attempted due to medical condition or safety concerns O. 12 steps 88-Not attempted due to medical condition or safety concerns P. Picking up object 88-Not attempted due to medical condition or safety concerns R. Wheel 50 feet with two turns 88-Not attempted due to medical condition or safety concerns S. Wheel 150 feet 88-Not attempted due to medical condition or safety concerns - Bladder and Bowel Bladder continence 0-Always continent Bowel continence 0-Always continent [facility] DEFICITS: Self-Care, Transfers Control, Locomotion, Communication, Social Cognition, Endurance, Balance, and Sa fety Awareness SIGNATURE PANEL: (CDT)
== END 2019-07-01 14:45 | disposition home health service (06) | DRG 948 ==
LOC: 5TH 14:48
PROVIDERS: ADMIT Psychiatry & Neurology Neurology with Special Qualifications in Child Neurology; ATTEND Psychiatry & Neurology Neurology with Special Qualifications in Child Neurology
DX: R53.81 Other malaise (principal); N17.9 Acute kidney failure, unspecified; N10 Acute pyelonephritis; A04.72 Enterocolitis due to Clostridium difficile, not specified as recurrent; D69.6 Thrombocytopenia, unspecified; N18.9 Chronic kidney disease, unspecified; D75.89 Other specified diseases of blood and blood-forming organs; N41.9 Inflammatory disease of prostate, unspecified; B96.20 Unspecified Escherichia coli [E. coli] as the cause of diseases classified elsewhere; F31.9 Bipolar disorder, unspecified; M54.9 Dorsalgia, unspecified; E29.1 Testicular hypofunction; F01.50 Vascular dementia, unspecified severity, without behavioral disturbance, psychotic disturbance, mood disturbance, and anxiety; K57.90 Diverticulosis of intestine, part unspecified, without perforation or abscess without bleeding; Z91.81 History of falling
CPT/HCPCS: 36415; 74176; 80048; 81001; 82040; 82962; 83735; 84132; 84134; 85025; 87086; 87088; 87324; 87449; 92523; 93005; 97110; 97112; 97116; 97127; 97161; 97530; G0103; J0692; J1644

== ENCOUNTER 2020-06-19 02:04 | Inpatient (IN) | payer OTHER ==
[2020-06-19 03:31] LABS: Absolute Lymphocytes (CBC) 0.5 K/uL (0.7-4.9); Basophils % 0.6 % (0-1.3); Hematocrit 30.9 % (39.6-49.0); Lymphocytes % 5.8 % (15.3-44.8); MPV 7.1 fL (7.6-11.3); RBC Red Blood Cell Count 3.24 M/uL (4.33-5.43)
[2020-06-19 03:33] LABS: Protime INR 1.05
[2020-06-19 03:40] LABS: Albumin 2.5 g/dL (3.4-5.0); Bilirubin Direct 0.1 mg/dL (0-0.2); Bilirubin Total 0.3 mg/dL (0.2-1.0); Potassium 3.5 mmol/L (3.5-5.1); Protein, Total 6.3 g/dL (6.4-8.2); Troponin (Emerg Dept Use Only) 0.07 ng/mL (0.0-0.045)
[2020-06-19] MEDS ORDERED: AZITHROMYCIN 500 MG INJ IVPB ONE (04:31)
[2020-06-19] MEDS ORDERED: NA CHLORIDE 0.9% 1,000 ML ONE (04:31)
[2020-06-19] MEDS ORDERED: CEFTRIAXONE/SWI 1gm 1 GM/10 ML SYR ONE (04:31)
[2020-06-19] MEDS ORDERED: NA CHLORIDE 0.9% 250 ML ONE (04:31)
[2020-06-19 05:06] LABS: Urine Bacteria <20 /HPF (NONE SEEN); Urine Culture Reflex Order REFLEXED; Urine RBC <5 /HPF (NONE SEEN)
[2020-06-19 05:08] LABS: Urine Blood 2+ (NEG); Urine Glucose NEGATIVE (NEG); Urine Protein 1+ (NEG); Urine Specific Gravity <1.005 (1.005-1.030)
--- NOTE | 2020-06-19 06:10 | EDPHYS ---
Physician Documentation [facility] Name: Kavin Armijo Age: 65 yrs Sex: Male : 1955 Arrival Date: 06/19/2020 Time: 02:05 Bed 4 Private MD: ED Physician Jose Lemus HPI: 06/19 03:26 This 65 yrs old Male presents to ER via EMS with complaints of Shortness Of mh7 Breath. 03:26 The patient has shortness of breath at rest. Onset: The symptoms/episode began/occurred mh7 2 day(s) ago. Duration: The symptoms are intermittent, with no pattern. The patient's shortness of breath is aggravated by nothing, is alleviated by nothing. Associated signs and symptoms:. 03:33 Associated signs and symptoms: Pertinent positives: non-productive cough, fever, mh7 Pertinent negatives: chest pain, productive cough, diaphoresis, dizziness, hemoptysis, loss of consciousness, nausea, numbness in extremities, visual changes, vomiting. Severity of symptoms: At their worst the symptoms were moderate last night, in the emergency department the symptoms have improved moderately. Historical: - Allergies: 02:12 Phenergan; wh - PMHx: 02:12 anmesia; Bipolar disorder; Hypertension; Renal Disease; Sleep Apnea; spinal stenosis; stage 4 kidney failure; Hyperlipidemia; - Immunization history:: Adult Immunizations not up to date. - Social history:: Smoking status: Patient reports the use of cigarette tobacco products, smokes one-half pack cigarettes per day. ROS: 03:33 Eyes: Negative for injury, pain, redness, and discharge, ENT: Negative for injury, mh7 pain, and discharge, Neck: Negative for injury, pain, and swelling, Cardiovascular: Negative for chest pain, palpitations, and edema, Abdomen/GI: Negative for abdominal pain, nausea, vomiting, diarrhea, and constipation, Back: Negative for injury and pain, : Negative for injury, bleeding, discharge, and swelling, MS/Extremity: Negative for injury and deformity, Skin: Negative for injury, rash, and discoloration, Neuro: Negative for headache, weakness, numbness, tingling, and seizure, Psych: Negative for depression, anxiety, suicide ideation, homicidal ideation, and hallucinations, Allergy/Immunology: Negative for hives, rash, and allergies, Endocrine: Negative for neck swelling, polydipsia, polyuria, polyphagia, and marked weight changes, Hematologic/Lymphatic: Negative for swollen nodes, abnormal bleeding, and unusual bruising. Exam: 03:33 Constitutional: This is a well developed, well nourished patient who is awake, alert, mh7 and in no acute distress. Head/Face: Normocephalic, atraumatic. Eyes: Pupils equal round and reactive to light, extra-ocular motions intact. Lids and lashes normal. Conjunctiva and sclera are non-icteric and not injected. Cornea within normal limits. Periorbital areas with no swelling, redness, or edema. Neck: Trachea midline, no thyromegaly or masses palpated, and no cervical lymphadenopathy. Supple, full range of motion without nuchal rigidity, or vertebral point tenderness. No Meningismus. Chest/axilla: Normal chest wall appearance and motion. Nontender with no deformity. No lesions are appreciated. Cardiovascular: Regular rate and rhythm with a normal S1 and S2. No gallops, murmurs, or rubs. Normal PMI, no JVD. No pulse deficits. 03:33 Abdomen/GI: Soft, non-tender, with normal bowel sounds. No distension or tympany. No guarding or rebound. No evidence of tenderness throughout. Back: No spinal tenderness. No costovertebral tenderness. Full range of motion. Skin: Warm, dry with normal turgor. Normal color with no rashes, no lesions, and no evidence of cellulitis. MS/ Extremity: Pulses equal, no cyanosis. Neurovascular intact. Full, normal range of motion. Neuro: Awake and alert, GCS 15, oriented to person, place, time, and situation. Cranial nerves II-XII grossly intact. Motor strength 5/5 in all extremities. Sensory grossly intact. Cerebellar exam normal. Normal gait. Psych: Awake, alert, with orientation to person, place and time. Behavior, mood, and affect are within normal limits. 03:33 Respiratory: the patient does not display signs of respiratory distress, Respirations: normal, Breath sounds: rhonchi, that are mild, are scattered, Respiratory rate: 18 Vital Signs: 02:09 BP 123 / 66; Pulse 95; Resp 18; Temp 99.8; Pulse Ox 95% on R/A; Weight 74.84 kg; Height wh 5 ft. 8 in. (172.72 cm); 03:30 BP 106 / 53; Pulse 93; Resp 20; Pulse Ox 95% on R/A; wh 05:00 BP 97 / 60; Pulse 79; Resp 18; Pulse Ox 95% on R/A; wh 06:23 BP 105 / 53; Pulse 73; Resp 16; Pulse Ox 95% on R/A; 02:09 Body Mass Index 25.09 (74.84 kg, 172.72 cm) MDM: 02:35 Patient medically screened. health system 06:06 Differential diagnosis: Anemia Anxiety Reaction asthma, Bronchitis CHF exacerbation, 7 Chronic Obstructive Pulmonary Disease Myocardial Infarction pneumonia, Pneumothorax pulmonary edema, Sepsis. Antibiotic administration: Rocephin and Zithromax given. Data reviewed: vital signs, nurses notes, EMS record, old medical records, lab test result(s), cardiac enzymes, CBC, electrolytes, Flu: urinalysis. Data interpreted: Pulse oximetry: on 2L(s) per nasal canula, is 95 %. Interpretation: acceptable. Counseling: I had a detailed discussion with the patient and/or guardian regarding: the historical points, exam findings, and any diagnostic results supporting the discharge/admit diagnosis, lab results, radiology results, the need for further work-up and treatment in the hospital. Response to treatment: the patient's symptoms have markedly improved after treatment. 06/19 02:36 Order name: Amylase, Serum; Complete Time: 06:04 health system 06/19 02:36 Order name: Basic Metabolic Panel; Complete Time: 06:04 health system 06/19 02:36 Order name: Blood Culture Adult (2) health system 06/19 02:36 Order name: CBC with Diff; Complete Time: 03:35 health system 06/19 02:36 Order name: Ckmb; Complete Time: 06:04 health system 06/19 02:36 Order name: CPK; Complete Time: 06:04 health system 06/19 02:36 Order name: Lactate; Complete Time: 04:02 health system 06/19 02:36 Order name: LFT's; Complete Time: 06:04 health system 06/19 02:36 Order name: Lipase; Complete Time: 06:04 health system 06/19 02:36 Order name: Procalcitonin; Complete Time: 04:02 health system 06/19 02:36 Order name: Protime (+inr); Complete Time: 03:35 7 06/19 02:36 Order name: Ptt, Activated; Complete Time: 03:35 7 06/19 02:36 Order name: Troponin (emerg Dept Use Only); Complete Time: 06:04 7 06/19 02:36 Order name: Urine Microscopic Only; Complete Time: 05:26 7 06/19 02:36 Order name: Chest Single View XRAY 7 06/19 02:43 Order name: Flu; Complete Time: 05:26 06/19 03:23 Order name: SARS-COV-2 RT PCR; Complete Time: 05:26 EDMS 06/19 03:31 Order name: Glucose, Ancillary Testing; Complete Time: 03:35 EDMS 06/19 04:06 Order name: CT Chest Wo Con 7 06/19 04:16 Order name: Urine Dipstick--Ancillary (enter results) tt3 06/19 04:17 Order name: Urine Dipstick-Ancillary; Complete Time: 05:26 EDMS 06/19 05:08 Order name: Urine Culture EDMS 06/19 05:34 Order name: NT PRO-BNP; Complete Time: 06:04 EDMS 06/19 07:37 Order name: Troponin I EDMS 06/19 02:36 Order name: Accucheck; Complete Time: 03:16 7 06/19 02:36 Order name: Cardiac monitoring; Complete Time: 03:16 7 06/19 02:36 Order name: EKG - Nurse/Tech; Complete Time: 03:16 7 06/19 02:36 Order name: IV Saline Lock - Large Bore; Complete Time: 03:17 7 06/19 02:36 Order name: Labs collected and sent; Complete Time: 03:17 7 06/19 02:36 Order name: O2 Per Protocol; Complete Time: 03:17 7 06/19 02:36 Order name: O2 Sat Monitoring; Complete Time: 03:17 7 06/19 02:36 Order name: Urine Dipstick-Ancillary (obtain specimen); Complete Time: 04:15 mh7 Administered Medications: 04:00 Drug: Rocephin - (cefTRIAXone) 1 grams Route: IVPB; Infused Over: 30 mins; Site: right wh forearm; 06:24 Follow up: Response: No adverse reaction; IV Status: Completed infusion 04:00 Drug: NS 0.9% 1000 ml Route: IV; Rate: 1 bolus; Site: right antecubital; 06:23 Follow up: Response: No adverse reaction; IV Status: Completed infusion 04:02 Drug: Zithromax 500 mg Route: IVPB; Infused Over: 1 hrs; Site: right antecubital; 06:24 Follow up: Response: No adverse reaction; IV Status: Completed infusion 04:15 Not Given (Physician Discretion): NS 0.9% (30 ml/kg) 30 ml/kg IV at bolus once; Sepsis Protocol Disposition: 06/19/20 06:09 Hospitalization ordered by Jose De Paz for Inpatient Admission. Preliminary diagnosis are Urinary tract infection, site not specified, Sepsis, Dyspnea. - Bed requested for Telemetry/MedSurg (Inpatient). - Status is Inpatient Admission. hb - Condition is Stable. - Problem is new. - Symptoms have improved. Signatures: Dispatcher [employer] [facility] Patt Gibbons RN RN Arianne Summers RN RN Rylie Wells Jose Lemus MD MD mh7 Corrections: (The following items were deleted from the chart) 03:23 02:43 CORONAVIRUS+MR.LAB.BRZ ordered. [facility] EDMS 05:34 05:27 PROBNP+C.LAB.BRZ ordered. [facility] EDMS 06:26 06:09 Hospitalization Ordered by Jose De Paz MD for Inpatient Admission. Preliminary cg diagnosis is Urinary tract infection, site not specified; Sepsis; Dyspnea. Bed requested for Telemetry/MedSurg (Inpatient). Status is Inpatient Admission. Condition is Stable. Problem is new. Symptoms have improved. mh7 07:57 06:26 06/19/2020 06:09 Hospitalization Ordered by Jose De Paz MD for Inpatient hb Admission. Preliminary diagnosis is Urinary tract infection, site not specified; Sepsis; Dyspnea. Bed requested for Telemetry/MedSurg (Inpatient). Status is Inpatient Admission. Condition is Stable. Problem is new. Symptoms have improved. cg
--- NOTE | 2020-06-19 06:10 | ER ---
Nurse's Notes [facility] Name: Kavin Armijo Age: 65 yrs Sex: Male : 1955 Arrival Date: 06/19/2020 Time: 02:05 Bed 4 Private MD: Diagnosis: Urinary tract infection, site not specified;Sepsis;Dyspnea Presentation: 06/19 02:09 Chief complaint: EMS states: Pt C/O fever, cough and SOB for 2 days. Pt also C/O wh weakness that got worse today. Temp at home was 100.1 Bp 97/60 HR 140. Pt was given a gram of Tylenol and a liter Bolus. Coronavirus screen: Client denies travel out of the [place] in the last 14 days. cough unrelated to allergies, fatigue, fever, shortness of breath, Client presents with at least one sign or symptom that may indicate coronavirus-19. Standard/surgical mask placed on the client. Ebola Screen: Patient negative for fever greater than or equal to 101.5 degrees Fahrenheit, and additional compatible Ebola Virus Disease symptoms Patient denies exposure to infectious person. Initial Sepsis Screen: Does the patient meet any 2 criteria? Temp <36.0*C (96.8*F)) or > 38.3*C (100.9*F). HR > 90 bpm. Does the patient have a suspected source of infection? Yes: Productive cough/pneumonia. Risk Assessment: Do you want to hurt yourself or someone else? Patient reports no desire to harm self or others. Onset of symptoms was June 19, 2020. 02:09 Method Of Arrival: EMS: [facility] 02:09 Acuity: [place]ANN[place] 3 02:12 Care prior to arrival: Medication(s) given: Normal saline infusion, 1000 mL, Tylenol, wh 1000 mg, IV initiated. 18 GA, in the right forearm. Triage Assessment: 02:30 Respiratory: Onset: The symptoms/episode began/occurred suddenly, the patient reports symptoms have resolved. Historical: - Allergies: 02:12 Phenergan; wh - PMHx: 02:12 anmesia; Bipolar disorder; Hypertension; Renal Disease; Sleep Apnea; spinal stenosis; stage 4 kidney failure; Hyperlipidemia; - Immunization history:: Adult Immunizations not up to date. - Social history:: Smoking status: Patient reports the use of cigarette tobacco products, smokes one-half pack cigarettes per day. Screenin:12 Abuse screen: Denies threats or abuse. Denies injuries from another. Nutritional wh screening: No deficits noted. Tuberculosis screening: No symptoms or risk factors identified. Fall Risk Fall in past 12 months (25 points). Assessment: 02:30 General: Appears in no apparent distress. Behavior is calm, cooperative, appropriate wh for age. Pain: Denies pain. Neuro: Level of Consciousness is awake, alert, obeys commands, Oriented to person, place, time, situation, Appropriate for age. Cardiovascular: Heart tones S1 S2 Rhythm is regular. Respiratory: Reports shortness of breath Airway is patent Respiratory effort is even, unlabored, Respiratory pattern is regular, symmetrical, Breath sounds are diminished bilaterally. GI: Abdomen is flat, non-distended. : No signs and/or symptoms were reported regarding the genitourinary system. EENT: No signs and/or symptoms were reported regarding the EENT system. Derm: Skin is intact, is healthy with good turgor. Musculoskeletal: Circulation, motion, and sensation intact. 03:41 Reassessment: Patient appears in no apparent distress at this time. No changes from previously documented assessment. Patient and/or family updated on plan of care and expected duration. Pain level reassessed. Patient is alert, oriented x 3, equal unlabored respirations, skin warm/dry/pink. 05:00 Reassessment: Patient appears in no apparent distress at this time. Patient and/or family updated on plan of care and expected duration. Pain level reassessed. Patient is alert, oriented x 3, equal unlabored respirations, skin warm/dry/pink. 06:22 Reassessment: Patient appears in no apparent distress at this time. Patient and/or family updated on plan of care and expected duration. Pain level reassessed. Patient is alert, oriented x 3, equal unlabored respirations, skin warm/dry/pink. Notified of POC need for admit. Vital Signs: 02:09 BP 123 / 66; Pulse 95; Resp 18; Temp 99.8; Pulse Ox 95% on R/A; Weight 74.84 kg; Height 5 ft. 8 in. (172.72 cm); 03:30 BP 106 / 53; Pulse 93; Resp 20; Pulse Ox 95% on R/A; 05:00 BP 97 / 60; Pulse 79; Resp 18; Pulse Ox 95% on R/A; 06:23 BP 105 / 53; Pulse 73; Resp 16; Pulse Ox 95% on R/A; 02:09 Body Mass Index 25.09 (74.84 kg, 172.72 cm) ED Course: 02:05 Patient arrived in ED. cl3 02:09 Rylie Wells is Primary Nurse. 02:11 Triage completed. 02:23 Jose Lemus MD is Attending Physician. 7 02:30 Arm band placed on right wrist. 02:30 Patient has correct armband on for positive identification. Bed in low position. Call light in reach. Side rails up X 1. satellite project site monitor on. Pulse ox on. NIBP on. 03:05 Chest Single View XRAY In Process Unspecified. EDMS 04:38 CT Chest Wo Con In Process Unspecified. EDMS 06:08 Jose De Paz MD is Hospitalizing Provider. 7 07:34 No provider procedures requiring assistance completed. Patient admitted, IV remains in hb place. Administered Medications: 04:00 Drug: Rocephin - (cefTRIAXone) 1 grams Route: IVPB; Infused Over: 30 mins; Site: right forearm; 06:24 Follow up: Response: No adverse reaction; IV Status: Completed infusion 04:00 Drug: NS 0.9% 1000 ml Route: IV; Rate: 1 bolus; Site: right antecubital; 06:23 Follow up: Response: No adverse reaction; IV Status: Completed infusion 04:02 Drug: Zithromax 500 mg Route: IVPB; Infused Over: 1 hrs; Site: right antecubital; 06:24 Follow up: Response: No adverse reaction; IV Status: Completed infusion 04:15 Not Given (Physician Discretion): NS 0.9% (30 ml/kg) 30 ml/kg IV at bolus once; Sepsis Protocol Outcome: 06:09 Decision to Hospitalize by Provider. mh7 07:34 Admitted to Tele accompanied by tech, room 225, with chart, Report called to Chasity FERRO hb 07:34 Condition: stable 07:34 Instructed on the need for admit, Demonstrated understanding of instructions. 07:57 Patient left the ED. hb Signatures: Dispatcher [facility] Arianne Lozano, RN RN heidy Wells, Neha To cl3 Jose Lemus MD MD mh7
[2020-06-19] MEDS ORDERED: ALBUTEROL 2.5 MG/3 ML NEB SOL NEB PRN (06:18)
[2020-06-19] MEDS ORDERED: ONDANSETRON 4 MG/2 ML VIAL IV PRN (06:18)
[2020-06-19 08:24] VITALS: BMI 26.2
[2020-06-19] MEDS: IPRATROPIUM BROM 0.5MG/2.5ML NEB SCH ×3 (08:45→19:20)
[2020-06-19] MEDS: D5 0.45 NS 1,000 ML IV SCH ×2 (08:49→17:28)
[2020-06-19] MEDS ORDERED: PNEUMOCOCCAL VACCINE 0.5 ML IMVAC ONE (09:00)
[2020-06-19] MEDS: ACETAMINOPHEN 500 MG TAB PO PRN ×2 (11:14→17:26)
--- NOTE | 2020-06-19 12:54 | P.SSS ---
Patient History Date of Service: 06/19/20 Reason for admission: FEVER ,CHILLS FOR TWO DAYS. History of Present Illness: MR. MENDEZ HAS FEVER AND CHILLS FOR TWO DAYS. HE HAS NO COUGH, NO PAIN ETC. HE HAS CKD-4 FROM HTN AND NSAIDS FOR LONG DURATION. Allergies promethazine HCl [From Phenergan] Allergy (Severe, Verified 04/07/19 20:39) Nausea/Vomiting chlorpromazine HCl [From Thorazine] Allergy (Intermediate, Verified 04/07/19 20:39) Anaphylaxis Home Medications: Amlodipine [Norvasc] 10 mg PO DAILY 06/19/20 Aspirin [Ecotrin 81 MG] 81 mg PO DAILY 06/19/20 Atorvastatin Calcium 10 mg PO BEDTIME 06/19/20 Calcitriol [Rocaltrol] 0.25 mcg PO DAILY 06/19/20 Cholecalciferol (Vitamin D3) [Vitamin D3] 1,000 unit PO DAILY 06/19/20 Divalproex ER [Depakote *ER] 500 mg PO BEDTIME 06/19/20 Mirtazapine 7.5 mg PO BEDTIME 06/19/20 Sertraline [Zoloft*] 100 mg PO DAILY 06/19/20 clonazePAM [Klonopin] 1 mg PO TID 06/19/20 - Past Medical/Surgical History Has patient received pneumonia vaccine in the past: No Diabetic: No -: Obstructive sleep apnea -: Chronic renal disease, stage IV -: CAD with prior CABG x3 vessel -: Bipolar disorder -: Chronic pain-lower back -: Hypertension -: Hyperlipidemia -: Insomnia -: History of dvt right calf (knee fracture) -: Colon polyps -: GERD with ulcers -: Tobacco abuse -: CABG x3 vessel -: cholecystectomy -: triple bypass -: knee surgery Psychosocial/ Personal History: Patient is - Family History Mother -: Heart disease Notes: polycythemia, [place] Father -: Other (see notes) Notes: pancreatic cancer - Social History Smoking Status: Current every day smoker Alcohol use: No CD- Drugs: No Caffeine use: No Place of Residence: Home Review of Systems 10-point ROS is otherwise unremarkable General: Weakness, Malaise Physical Examination - Vital Signs Temperature: 98.1 F Blood Pressure: 148/64 Pulse: 95 Respirations: 16 Pulse Ox (%): 92 - Physical Exam General: Alert, In no apparent distress HEENT: Atraumatic, PERRLA, Mucous membr. moist/pink, EOMI, Sclerae nonicteric Neck: Supple, 2+ carotid pulse no bruit, No LAD, Without JVD or thyroid abnormality Respiratory: Clear to auscultation bilaterally, Normal air movement Cardiovascular: Regular rate/rhythm, Normal S1 S2 Gastrointestinal: Normal bowel sounds, No tenderness Musculoskeletal: No tenderness Integumentary: No rashes Neurological: Normal gait, Normal speech, Normal strength at 5/5 x4 extr, Normal tone, Normal affect, Abnormal gait (LIMP IS OLD FROM HISTORY. BROKEN AND DEFORMED LEG.) Lymphatics: No axilla or inguinal lymphadenopathy - Studies Laboratory Data (last 24 hrs) 06/19/20 03:10: PT 12.4, INR 1.05, APTT 22.8 L 06/19/20 03:10: WBC 8.8, Hgb 10.6 L, Hct 30.9 L, Plt Count 260 06/19/20 03:10: Sodium 142, Potassium 3.5, BUN 43 H, Creatinine 3.17 H, Glucose 91, Total Bilirubin 0.3, AST 40 H, ALT 23, Alkaline Phosphatase 74, Amylase 66, Lipase 122 Microbiology Data (last 24 hrs): 06/19/20 03:15 Nasopharnyx Influenza Type A Antigen Screen - Final 06/19/20 03:15 Nasopharnyx Influenza Type B Antigen Screen - Final - Diagnosis (Problem(s)) (1) UTI (urinary tract infection) Current Visit: Yes Status: Acute Plan: ROCEPHIN IV. CULTURES PENDING. WILL FU AND DC IN AM POSSIBLE. SONOGRAM AND PVR FOR NOW. PSA DONE ON OP BASIS. (2) Chronic kidney disease Onset Date: 05/03/18 Current Visit: No Status: Chronic Qualifiers: Chronic kidney disease stage: stage 4 (severe) Qualified Code(s): N18.4 - Chronic kidney disease, stage 4 (severe) - Disposition Disposition: ROUTINE DISCHARGE
[2020-06-19 14:08] LABS: MPV 7.3 fL (7.6-11.3)
--- NOTE | 2020-06-19 14:18 | RAD REPORT ---
EXAM DESCRIPTION: RAD - Chest Single View - 06/19/2020 3:04 am CLINICAL HISTORY: COUGH TECHNIQUE: Single frontal view of the chest is submitted. COMPARISON: None available for comparison FINDINGS: Heart: The cardiothoracic silhouette is within normal limits. Prior cardiac surgery. Lungs: No focal consolidation. Mediastinum: Thoracic aortic atherosclerosis. Pleura: No appreciable effusion. No pneumothorax. Bones: Prior median sternotomy. Upper abdomen: Unremarkable IMPRESSION: No acute disease. Electronically signed by: Micha Odell MD 06/19/2020 3:54 AM CDT Due to temporary technical issues with the PACS/Fluency reporting system, reports are being signed by the in house radiologist without review as a courtesy to ensure prompt reporting. The interpreting r adiologist is fully responsible for the content of the report.
--- NOTE | 2020-06-19 14:19 | RAD REPORT ---
EXAM DESCRIPTION: CT - Thorax George Grimaldo - 06/19/2020 6:47 am CLINICAL HISTORY: The patient is 65 years old and is Male; fever, SOB TECHNIQUE: Axial computed tomography images of the chest without intravenous contrast. Sagittal an d coronal reformatted images were created and reviewed. This CT exam was performed using one or mor e of the following dose reduction techniques: automated exposure control, adjustment of the mA and/ or kV according to patient size, and/or use of iterative reconstruction technique. COMPARISON: CXR June 19, 2020. FINDINGS: Lungs: Bilateral lower lobe linear atelectasis. No groundglass opacities or pulmonary consolidation. Pleural space: No pleural effusion or pneumothorax. Heart: No cardiomegaly. Status post CABG surgery. No significant pericardial effusion. Bones/joints: Diffuse idiopathic skeletal hyperostosis. Sclerotic changes in the bones which may be secondary to chronic metabolic disease, such as renal osteodystrophy. No acute fracture visualize d. cholecystectomy. No dislocation. Soft tissues: Unremarkable. Vasculature: Unremarkable. No thoracic aortic aneurysm. Lymph nodes: No pathologically enlarged lymph nodes. Tubes, lines and devices: Sternal closure wires. IMPRESSION: Bilateral lower lobe linear atelectasis. No pulmonary consolidation or groundglass opaci ties. Electronically signed by: Melinda Kaplan MD 06/19/2020 4:52 AM CDT Due to temporary technical issues with the PACS/Fluency reporting system, reports are being signed by the in house radiologist without review as a courtesy to ensure prompt reporting. The interpreting r adiologist is fully responsible for the content of the report.
[2020-06-19 14:20] LABS: Platelet Estimate ADEQ
[2020-06-19] MEDS: MORPHINE 2 MG/ML SYR IV PRN (17:24)
[2020-06-20] MEDS: IPRATROPIUM BROM 0.5MG/2.5ML NEB SCH ×4 (01:00→20:05)
[2020-06-20] MEDS: D5 0.45 NS 1,000 ML IV SCH ×2 (03:42→12:40)
[2020-06-20 05:58] LABS: Absolute Lymphocytes (CBC) 0.9 K/uL (0.7-4.9); Basophils % 0.8 % (0-1.3); Hematocrit 33.5 % (39.6-49.0); Lymphocytes % 8.1 % (15.3-44.8); MPV 7.3 fL (7.6-11.3); RBC Red Blood Cell Count 3.41 M/uL (4.33-5.43)
--- NOTE | 2020-06-20 05:58 | EKG ---
Test Date: 2020-06-19 Test Time: 02:52:54 Shoe Puller: MEASUREMENT RESULTS: Intervals: Rate: 92 IN: 140 QRSD: 86 QT: 374 QTc: 462 [place]: P: 58 IN: 140 QRS: 61 T: 58 INTERPRETIVE STATEMENTS: Normal sinus rhythm Prolonged QT Abnormal ECG Compared to ECG 06/20/2019 10:12:09 Prolonged QT interval now present ST (T wave) deviation no longer present Possible ischemia no longer present Electronically Signed On 06-20-20 05:56:02 CDT by Han Dhillon
[2020-06-20 06:14] LABS: Albumin 2.1 g/dL (3.4-5.0); Bilirubin Total 0.2 mg/dL (0.2-1.0); Potassium 4.6 mmol/L (3.5-5.1); Protein, Total 5.9 g/dL (6.4-8.2)
[2020-06-20] MEDS ORDERED: clonazePAM 1 MG TAB PO SCH (09:00)
[2020-06-20] MEDS: ASPIRIN EC 81 MG TAB PO SCH (09:22)
[2020-06-20] MEDS: ENOXAPARIN 30 MG/0.3 ML SQ SCH (09:22)
[2020-06-20] MEDS: CALCITROL 0.25 MCG CAP PO SCH (09:22)
[2020-06-20] MEDS: VITAMIN D 1000 UNIT TAB PO SCH (09:23)
[2020-06-20] MEDS: SERTRALINE HCL 100 MG TAB PO SCH (09:23)
[2020-06-20] MEDS: CEFTRIAXONE/SWI 2gm 2 GM/20 ML SYR IV SCH (11:06)
--- NOTE | 2020-06-20 11:52 | RAD REPORT ---
EXAM DESCRIPTION: US - Urinary Bladder - 06/20/2020 10:56 am CLINICAL HISTORY: Abdominal pain FINDINGS: Prevoid bladder volume equals 89 cc Postvoid bladder volume equals 4 cc No ascites IMPRESSION: Prevoid bladder volume equals 89 cc Postvoid bladder volume equals 4 cc
--- NOTE | 2020-06-20 11:56 | RAD REPORT ---
EXAM DESCRIPTION: US - Abdomen Exam Complete - 06/20/2020 10:56 am CLINICAL HISTORY: Abdominal pain FINDINGS: The liver has a normal echotexture. A 1.6 centimeter cyst Cholecystectomy. The biliary tree is normal caliber. The pancreas is normal in size and echotexture The right kidney measures 10 centimeters with a normal echotexture. The left kidney measures 10 centimeters with a normal echotexture. 3 centimeter cyst The spleen measures 9 centimeters. The abdominal aorta and inferior vena cava appear unremarkable IMPRESSION: Hepatic and left renal cysts
[2020-06-20] MEDS: MORPHINE 2 MG/ML SYR IV PRN (20:34)
[2020-06-20] MEDS ORDERED: ATORVASTATIN 10 MG TAB PO SCH (21:00)
[2020-06-20] MEDS ORDERED: DIVALPROEX ER 250 MG TAB PO SCH (21:00)
[2020-06-20] MEDS ORDERED: MIRTAZAPINE 15 MG TAB PO SCH (21:00)
--- NOTE | 2020-06-20 21:33 | P.PN ---
Subjective Date of Service: 06/20/20 Chief Complaint: FEVER ,CHILLS FOR TWO DAYS. Subjective: Improving HE IS STABLE. HE HAS NO PAIN. NO FEVER. Physical Examination - Vital Signs Temperature: 97 F Blood Pressure: 142/67 Pulse: 75 Respirations: 18 Pulse Ox (%): 94 - Physical Exam General: Mild distress HEENT: Atraumatic, PERRLA, EOMI Neck: Supple, JVD not distended Respiratory: Clear to auscultation bilaterally, Normal air movement Cardiovascular: Regular rate/rhythm, Normal S1 S2 Gastrointestinal: Normal bowel sounds, No tenderness Musculoskeletal: No tenderness Integumentary: No rashes Neurological: Normal speech, Normal tone, Normal affect Lymphatics: No axilla or inguinal lymphadenopathy - Studies Microbiology Data (last 24 hrs): 06/19/20 03:25 Blood - Blood Gram Stain - Final Medications List Reviewed: Yes Assessment And Plan - Current Problems (Diagnosis) (1) UTI (urinary tract infection) Current Visit: Yes Status: Acute Plan: ROCEPHIN IV. CULTURES PENDING. WILL FU AND DC IN AM POSSIBLE. SONOGRAM AND PVR FOR NOW. PSA DONE ON OP BASIS. IV ABX. WBC DAILY PVR NOT CHECKED. (2) Chronic kidney disease Onset Date: 05/03/18 Current Visit: No Status: Chronic Qualifiers: Chronic kidney disease stage: stage 4 (severe) Qualified Code(s): N18.4 - Chronic kidney disease, stage 4 (severe)
[2020-06-21] MEDS: D5 0.45 NS 1,000 ML IV SCH ×2 (00:33→08:38)
[2020-06-21] MEDS: MORPHINE 2 MG/ML SYR IV PRN (00:42)
[2020-06-21] MEDS: IPRATROPIUM BROM 0.5MG/2.5ML NEB SCH ×4 (01:10→19:46)
[2020-06-21 04:29] LABS: Basophils % 0.3 % (0-1.3); Hematocrit 35.8 % (39.6-49.0); Lymphocytes % 9.1 % (15.3-44.8); MPV 7.1 fL (7.6-11.3); RBC Red Blood Cell Count 3.65 M/uL (4.33-5.43)
[2020-06-21 04:40] LABS: Potassium 4.2 mmol/L (3.5-5.1)
[2020-06-21 05:15] LABS: Blood Morphology Comment NOT SEEN (NOT SEEN); Platelet Estimate ADEQ
[2020-06-21] MEDS ORDERED: INFLUENZA VACCINE (for 3y+) 0.5 ML DOSE IMVAC ONE (08:00)
[2020-06-21] MEDS: ASPIRIN EC 81 MG TAB PO SCH (08:33)
[2020-06-21] MEDS: ACETAMINOPHEN 500 MG TAB PO PRN (08:34)
[2020-06-21] MEDS: CALCITROL 0.25 MCG CAP PO SCH (08:34)
[2020-06-21] MEDS: SERTRALINE HCL 100 MG TAB PO SCH (08:34)
[2020-06-21] MEDS: VITAMIN D 1000 UNIT TAB PO SCH (08:34)
[2020-06-21] MEDS: ENOXAPARIN 30 MG/0.3 ML SQ SCH (08:34)
[2020-06-21] MEDS: CEFTRIAXONE/SWI 2gm 2 GM/20 ML SYR IV SCH (08:35)
[2020-06-21] MEDS ORDERED: PNEUMOCOCCAL VACCINE 0.5 ML IMVAC ONE (09:00)
--- OUTSIDE RECORDS SUMMARY | 2020-06-21 09:56 | XMS REPORT | Continuity of Care Document ---
:1955 Author Organization [facility] t Address [address] [place] [address] Dr. 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 l [facility] Insomnia Insomnia Problem [facility] Venous Venous Problem Active [facility] insufficie insufficie Nneka kes - ncy ncy [facility]oria [facility] Hypertensi Hypertensi Problem Active [facility] Obstructiv Obstructiv Problem Active [facility] e sleep e sleep [facility] apnea apnea [facility] Chronic Chronic Problem Active [facility] renal renal [facility] disease disease [facility] Coronary Coronary Problem Active [facility] artery artery [facility] disease disease [facility] Bipolar Bipolar Problem Active [facility] disorder disorder [facility] CKD CKD Diagnosis Active [facility] (chronic (chronic [facility] - kidney kidney Memoria disease), disease), l stage IV stage IV Outpat i ent Clin[facility] Memory Memory Problem Active [facility] changes changes [facility] Urinary Urinary Problem Active [facility] incontinen incontinen Nneka kes - ce, ce, Memoria unspecifie unspecifie l d type d type [facility] Abnormal Abnormal Problem Active [facility] gait gait [facility] Other Other Problem Active [facility] chronic chronic [facility] pain pain [facility] Disc Disc Problem Active [facility] degenerati degenerati Nneka kes - on, lumbar on, lumbar Me moria l [facility] Low back Low back Problem Active [facility] pain pain [facility] Diverticul Diverticul Problem Active [facility] itis itis [facility] Anorexia Anorexia Problem Active [facility] Tobacco Tobacco Diagnosis Active [facility] abuse abuse [facility] Generalize Generalize Diagnosis Active [facility] d weakness d weakness Nneka [facility] Elevated Elevated Diagnosis Active [facility] CEA CEA [facility] Allergies, Adverse Reactions, Alerts Allergy Allergy Status Severity Reaction(s) Onset Inactive Treating Comm ents Source Name Type Date Date Clinician Phenerga Adverse Active Info Not [facility] n Reaction Available [facility] Medications Ordered Filled Start Stop Current Ordering Indication Dosage Frequency Signature Comments Components Source Medication Medication Date Date Medication? Clinician (SIG) Name Name Neurontin Neurontin Yes Jose Manuel [address] [facility] before [facility] - bedtime [facility] Metoprolol Metoprolol Yes Jose Manuel TAKE ONE [facility] Tartrate Tartrate Baum TABLET BY ukes - MOUTH [facility] TWICE A l DAY. TAKE [facility] METOPROLOL Clinics 25MG TO EQUAL TOTAL DOSE OF 75MG TWICE DAILY Remeron Remeron Yes Jose Manuel [address] [facility] at bedtime [facility] Depakote ER Depakote ER Yes Jose Manuel not [facility] defined [facility] Metoprolol Metoprolol Yes Jose Manuel TAKE ONE [facility] Tartrate Tartrate Baum TABLET BY ukes - MOUTH [facility] METOPROLOL Clinics 50MG TO TOTAL DOSE OF 75MG Simvastatin Simvastatin Yes Jose Manuel [address] [facility] Zoloft Zoloft Yes Jose Manuel 1 tablet [facility] Colace Colace Yes Jose Manuel [address] [facility] Aspirin Aspirin Yes Jose Manuel [address] [facility] Procedures This patient has no known procedures. Encounters Start End Encounter Admission Attending Care Care Encounter Source Date/Time Date/Time Type Type Clinicians Facility Department ID 2019-03-29 2019-03-29 [facility] [id number] [facility] 10:30[facility]00 10:30[facility]00 [facility] Out[facility] Clin[facility] 2019-03-24 2019-03-24 [facility] [id number] 09:58:00 09:58:00 t [facility] Out[facility] Clin[facility] 2019-03-23 2019-03-23 [facility] [id number] [address] 15[facility]09:00 15:09:00 t [facility] Outpat[facility] Clinics 2018-12-28 2018-12-28 [facility] [id number] [address] 11:15:00 11:15:00 t [facility] Outpat[facility] Clinics 2018-11-04 2018-11-04 [facility] [id number] 09:30:00 09:30:00 t [employer] [facility] Medicine Outpat[facility] ent Clinics 2018-09-30 2018-09-30 [facility] [id number] 10[facility]45:00 10:45:00 t [employer] [facility] Medicine Out[facility] Clinics 2018-06-29 2018-06-29 [facility] [id number] [address] 10:30:00 10:30:00 t [employer] [facility] Out[facility] Clinics 2018-05-28 2018-05-28 [facility] [id number] 10:26:00 10:26:00 t [employer] [facility] Out[facility] Clinics 2018-05-10 2018-05-10 [facility] [id number] 13:00:00 13:00:00 t [employer] [facility] Out[facility] Clinics 2018-05-05 2018-05-05 [facility] [id number] 08:31:00 08:31:00 t [employer] s - Drive [facility] Outpat[facility] ent Clinics 2018-04-30 2018-04-30 [facility] [id number] 11:09:00 11:09:00 t [employer] s - Drive [facility] Out[facility] Clinics 2018-04-15 2018-04-15 [facility] [id number] 16[facility]14:00 16:14:00 t [employer] s - Drive [facility] Out[facility] Clinics 2018-04-15 2018-04-15 [facility] [id number] 08:15:00 08:15:00 t [employer] s - Drive [facility] Out[facility] Clinics 2018-02-25 2018-02-25 [facility] [id number] 14:45:00 14:45:00 t [employer] s - Drive [facility] Out[facility] Clinics 2017-12-09 2017-12-09 [facility] [id number] 08:18:00 08:18:00 t [employer] s - Drive [facility] Out[facility] Clinics 2017-12-09 2017-12-09 [facility] [id number] 08:15:00 08:15:00 t [employer] - Drive [facility] Out[facility] Clinics 2017-12-09 2017-12-09 [facility] [id number] 08:14:00 08:14:00 t [employer] - [address] [facility] Out[facility] Clinics Results This patient has no known results.
--- NOTE | 2020-06-21 17:53 | P.DS ---
Admission Date: 06/19/20 Discharge Date: 06/21/20 Disposition: ROUTINE DISCHARGE Discharge Condition: FAIR Reason for Admission: FEVER ,CHILLS FOR TWO DAYS. - Problems (1) UTI (urinary tract infection) Current Visit: Yes Status: Acute (2) Chronic kidney disease Onset Date: 05/03/18 Current Visit: No Status: Chronic Qualifiers: Chronic kidney disease stage: stage 4 (severe) Qualified Code(s): N18.4 - Chronic kidney disease, stage 4 (severe) Brief History of Present Illness: MR. MENDEZ HAS FEVER AND CHILLS FOR TWO DAYS. HE HAS NO COUGH, NO PAIN ETC. HE HAS CKD-4 FROM HTN AND NSAIDS FOR LONG DURATION. Hospital Course: MR. MENDEZ HAS DONE WELL. HE IS GROWING E COLI FROM URINE AND BLOOD. HE IS STABLE TO GO HOME. HE WILL BE ON CIPRO BID PER C AND S. FU IN OFFICE IN 10 DAYS. Vital Signs/Physical Exam: Temp Pulse Resp BP Pulse Ox 97.9 F 84 16 162/79 H 93 06/21/20 16:00 06/21/20 16:00 06/21/20 16:00 06/21/20 16:00 06/21/20 16:00 Laboratory Data at Discharge: WBC 11.2 K/uL (4.3-10.9) H 06/21/20 03:58 Hgb 11.7 g/dL (13.6-17.9) L 06/21/20 03:58 Hct 35.8 % (39.6-49.0) L 06/21/20 03:58 Plt Count 272 K/uL (152-406) 06/21/20 03:58 PT 12.4 SECONDS (9.5-12.5) 06/19/20 03:10 INR 1.05 06/19/20 03:10 APTT 22.8 SECONDS (24.3-36.9) L 06/19/20 03:10 Sodium 143 mmol/L (136-145) 06/21/20 03:58 Potassium 4.2 mmol/L (3.5-5.1) 06/21/20 03:58 BUN 32 mg/dL (7-18) H 06/21/20 03:58 Creatinine 2.79 mg/dL (0.55-1.3) H 06/21/20 03:58 Glucose 116 mg/dL (74-106) H 06/21/20 03:58 Total Bilirubin 0.2 mg/dL (0.2-1.0) 06/20/20 05:43 AST 104 U/L (15-37) H 06/20/20 05:43 ALT 38 U/L (12-78) 06/20/20 05:43 Alkaline Phosphatase 79 U/L (45-117) 06/20/20 05:43 Troponin I 0.14 ng/mL (0.0-0.045) H 06/19/20 11:04 Amylase 66 U/L (25-115) 06/19/20 03:10 Lipase 122 U/L (73-393) 06/19/20 03:10 Home Medications: Amlodipine [Norvasc*] 10 mg PO DAILY 06/19/20 Aspirin [Ecotrin 81 MG] 81 mg PO DAILY 06/19/20 Atorvastatin Calcium 10 mg PO BEDTIME 06/19/20 Calcitriol [Rocaltrol] 0.25 mcg PO DAILY 06/19/20 Cholecalciferol (Vitamin D3) [Vitamin D3] 1,000 unit PO DAILY 06/19/20 Divalproex ER [Depakote *ER] 500 mg PO BEDTIME 06/19/20 Mirtazapine 7.5 mg PO BEDTIME 06/19/20 Sertraline [Zoloft*] 100 mg PO DAILY 06/19/20 clonazePAM [Klonopin] 1 mg PO TID 06/19/20 Ciprofloxacin HCl [Cipro 250 MG Tablet*] 250 mg PO BID #20 tab 06/21/20 New Medications: Ciprofloxacin HCl [Cipro 250 MG Tablet*] 250 mg PO BID #20 tab
[2020-06-21 21:12] VITALS: BP 146/68; TEMP 97.7; O2SAT 96
== END 2020-06-21 20:39 | disposition home or self-care (01) | DRG 690 ==
LOC: ER 02:04 → ERHOLD 06:20 → 2ND 07:33
PROVIDERS: ADMIT Internal Medicine; ATTEND Internal Medicine
DX: N39.0 Urinary tract infection, site not specified (principal); N18.4 Chronic kidney disease, stage 4 (severe); I12.9 Hypertensive chronic kidney disease with stage 1 through stage 4 chronic kidney disease, or unspecified chronic kidney disease; E78.5 Hyperlipidemia, unspecified; I25.10 Atherosclerotic heart disease of native coronary artery without angina pectoris; G89.29 Other chronic pain; M54.5 Low back pain; F17.200 Nicotine dependence, unspecified, uncomplicated; B96.20 Unspecified Escherichia coli [E. coli] as the cause of diseases classified elsewhere; Z88.8 Allergy status to other drugs, medicaments and biological substances; Z79.82 Long term (current) use of aspirin; Z90.49 Acquired absence of other specified parts of digestive tract; Z86.718 Personal history of other venous thrombosis and embolism; Z95.1 Presence of aortocoronary bypass graft; Z79.899 Other long term (current) drug therapy; Z20.828 Contact with and (suspected) exposure to other viral communicable diseases
CPT/HCPCS: 36415; 71045; 71250; 76700; 76857; 80048; 80053; 80076; 81003; 81015; 82150; 82550; 82553; 82947; 83605; 83690; 83880; 84145; 84484; 85025; 85049; 85610; 85730; 87040; 87077; 87086; 87088; 87186; 87205; 87804; 90471; 90732; 93005; 94640; 94760; 99285; J0456; J0696; J1650; J2270; J2405; J7030; J7050; J7799; U0003

== ENCOUNTER 2021-06-05 10:45 | Inpatient (IN) | payer OTHER ==
[2021-06-05 11:34] VITALS: BMI 25.3
[2021-06-05 11:50] LABS: Absolute Lymphocytes (CBC) 1.8 K/uL (0.7-4.9); Basophils % 0.8 % (0-1.3); Hematocrit 45.1 % (39.6-49.0); Lymphocytes % 32.7 % (15.3-44.8); MPV 8.3 fL (7.6-11.3); RBC Red Blood Cell Count 4.41 M/uL (4.33-5.43)
[2021-06-05 11:53] LABS: Protime INR 0.9
[2021-06-05] MEDS ORDERED: ENOXAPARIN 40 MG/0.4 ML SQ ONE (12:18)
[2021-06-05] MEDS ORDERED: NACHLORIDE 0.45% 1,000 ML IV ONE (12:18)
[2021-06-05 12:34] LABS: Albumin 3.5 g/dL (3.4-5.0); Bilirubin Direct 0.1 mg/dL (0-0.2); Bilirubin Total 0.4 mg/dL (0.2-1.0); Magnesium 2.3 mg/dL (1.8-2.4); Phosphorus 4.5 mg/dL (2.5-4.9); Potassium 3.8 mmol/L (3.5-5.1); Protein, Total 6.9 g/dL (6.4-8.2); Thyroid Stimulating Hormone 1.96 uIU/mL (0.360-3.740)
[2021-06-05] MEDS ORDERED: ACETAMINOPHEN 325 MG TABLET PO PRN (12:58)
[2021-06-05] MEDS ORDERED: DIPHENHYDRAMINE 25 MG TAB/CAP PO PRN (12:59)
[2021-06-05] MEDS ORDERED: LOPERAMIDE HCL 2 MG CAPSULE PO PRN (13:00)
[2021-06-05] MEDS: NACHLORIDE 0.45% 1,000 ML IV SCH ×2 (13:00→22:27)
[2021-06-05] MEDS ORDERED: POLYETHYL GLY 3350 17 GM/DOSE PO PRN (13:02)
[2021-06-05] MEDS ORDERED: ONDANSETRON 4 MG (ODT) TAB PO PRN (13:02)
--- NOTE | 2021-06-05 13:22 | RAD REPORT ---
EXAM DESCRIPTION: RAD - Chest Pa And Lat (2 Views) - 06/05/2021 1:14 pm CLINICAL HISTORY: CKD COMPARISON: Chest Pa And Lat (2 Views) dated 03/25/2021; Chest Single View dated 06/19/2020; Chest Pa And Lat (2 Views) dated 08/19/2019; Chest Single View dated 06/14/2019 FINDINGS: Lines: None. Lungs: No evidence of edema or pneumonia. Pleural: No significant pleural effusions or pneumothorax. Cardiac: The heart size is within normal limits. Sternotomy. Bones: No acute fractures. Other: IMPRESSION: No acute cardiopulmonary disease.
[2021-06-05 13:44] LABS: Urine Blood Negative (Negative); Urine Glucose Negative (Negative); Urine Protein Trace (Negative); Urine pH 5.5 (5.0-7.0)
[2021-06-05 14:03] LABS: Urine Appearance CLEAR (Clear); Urine Bilirubin NEGATIVE (Negative); Urine Blood NEGATIVE (Negative); Urine Color YELLOW (Yellow); Urine Glucose NEGATIVE (Negative); Urine Protein NEGATIVE (Negative); Urine Urobilinogen 0.2 mg/dL (0.2-1.0); Urine pH 5.5 (5.0-7.0)
[2021-06-05 14:04] LABS: Urine Microscopic Reflex NO UMIC
--- NOTE | 2021-06-05 17:13 | EDPHYS ---
Physician Documentation [facility] Name: Kavin Armijo Age: 66 yrs Sex: Male : 1955 Arrival Date: 06/05/2021 Time: 10:49 Bed Direct Admit Private MD: Jose De Paz V ED Physician HPI: 06/05 11:04 This is a direct admit, I was not involved with the care of this patient. I did assign ma2 my name to the chart by mistake. And then unassigned myself right away.. Historical: - Social history:: Smoking status: . Vital Signs: 10:55 BP 101 / 65; Pulse 50; Resp 18; Temp 97.6(TE); Pulse Ox 100% on R/A; Weight 73.48 kg tw2 (R); Height 5 ft. 7 in. (170.18 cm); Pain 0/10; 10:55 Body Mass Index 25.37 (73.48 kg, 170.18 cm) tw2 MDM: 06/05 11:03 Order name: COVID-19 : Document "Date of Symptom Onset" if Symptomatic. iw 06/05 11:20 Order name: CORONAVIRUS EDTX 06/05 11:55 Order name: CBC with Automated Diff EDTX 06/05 11:55 Order name: Protime (+INR) EDTX 06/05 11:55 Order name: PTT, Activated Partial Thromb EDTX 06/05 12:18 Order name: SARS-COV-2 RT PCR EDTX 06/05 12:35 Order name: Basic Metabolic Panel EDTX 06/05 12:35 Order name: Liver (Hepatic) Function EDTX 06/05 12:35 Order name: Phosphorus EDTX 06/05 12:35 Order name: Magnesium EDTX 06/05 12:35 Order name: Thyroid Stimulating Hormone EDTX 06/05 12:35 Order name: Vitamin B12 Level EDTX 06/05 13:44 Order name: Urine Dipstick-Ancillary EDTX 06/05 14:04 Order name: Urinalysis EDTX 06/05 13:22 Order name: RAD EDTX Administered Medications: No medications were administered Disposition Summary: 06/05/21 17:13 Hospitalization Ordered Hospitalization Status: Observation iw Provider: Jose De Paz iw Location: Telemetry/MedSurg (observation) iw Condition: Stable iw Bed/Room Type: Standard Room Assignment: 222(06/05/21 17:13) iw Diagnosis - Chronic kidney disease, unspecified iw Forms: - Medication Reconciliation Form iw - SBAR form iw Signatures: Dispatcher [employer] Alla Vega RN RN Mery Lion RN RN [facility] Arabella Franco MD MD [facility] Melvi Tello RN RN kg Corrections: (The following items were deleted from the chart) 10:55 Immunization history: Client reports receiving the 2nd dose of the Covid vaccine, [facility] 10:55 Social history: Smoking status: Patient reports the use of cigarette tobacco nj2 products, smokes one-half pack cigarettes per day, 10:57 Allergies: Phenergan; [place] [address] 10:57 Home Meds: amlodipine 10 mg tab 1 tab once daily; [place] [address] 10:57 Home Meds: divalproex 250 mg Oral Tb24 once daily; [place] [address] 10:57 Home Meds: divalproex 500 mg Oral TbEC 2 tabs once daily; [place] [address] 10:57 Home Meds: gabapentin 300 mg Oral cap 1 cap two times per day; [place] [address] 10:57 Home Meds: metoprolol tartrate 50 mg Oral tab 1 tab 2 times per day; [place] [address] 10:57 Home Meds: mirtazapine 30 mg Oral TbDL 1 tab once daily; [place] [address] 10:57 Home Meds: simvastatin 40 mg Oral tab 1 tab once daily; [place] [address] 10:57 Home Meds: sertraline 100 mg Oral tab 1 tab once daily; [place] [address] 10:57 PMHx: anmesia; [place] [address] 10:57 PMHx: Hyperlipidemia; [place] [address] 10:57 PMHx: Bipolar disorder; [place] [address] 10:57 PMHx: Sleep Apnea; [place] [address] 10:57 PMHx: Renal Disease; [place] [address] 10:57 PMHx: spinal stenosis; 10:57 PMHx: Hypertension; 10:57 PMHx: stage 4 kidney failure; 11:04 CORONAVIRUS+.BRZ ordered. EDTX 17 17:13 iw iw
--- NOTE | 2021-06-05 17:13 | ER ---
Nurse's Notes [facility] Name: Kavin Armijo Age: 66 yrs Sex: Male : 1955 Arrival Date: 06/05/2021 Time: 10:49 Bed Direct Admit Private MD: Jose De Paz V Diagnosis: Chronic kidney disease, unspecified Presentation: 06/05 10:55 Chief complaint: Patient states: Dr. De Paz sent me here. says my kidneys are failing. i tw2 lost 15 pounds in a week and a half. Coronavirus screen: Client denies travel out of the [place] in the last 14 days. At this time, the client does not indicate any symptoms associated with coronavirus-19. Ebola Screen: Patient denies travel to an Ebola-affected area in the 21 days before illness onset. Initial Sepsis Screen: Does the patient meet any 2 criteria? No. Patient's initial sepsis screen is negative. Does the patient have a suspected source of infection? No. Patient's initial sepsis screen is negative. Risk Assessment: Do you want to hurt yourself or someone else? Patient reports no desire to harm self or others. Onset of symptoms was June 05, 2021. 10:55 Method Of Arrival: Wheelchair tw2 10:55 Acuity: CHANNING 3 tw2 Triage Assessment: 10:59 General: Appears in no apparent distress. Behavior is calm, cooperative, appropriate tw2 for age. Pain: Denies pain. Historical: - Social history:: Smoking status: . Screenin:01 Abuse screen: Denies threats or abuse. Nutritional screening: No deficits noted. ll1 Tuberculosis screening: No symptoms or risk factors identified. Fall Risk IV access (20 points). Total Zaidi Fall Scale indicates No Risk (0-24 pts). Vital Signs: 10:55 BP 101 / 65; Pulse 50; Resp 18; Temp 97.6(TE); Pulse Ox 100% on R/A; Weight 73.48 kg tw2 (R); Height 5 ft. 7 in. (170.18 cm); Pain 0/10; 10:55 Body Mass Index 25.37 (73.48 kg, 170.18 cm) tw2 ED Course: 10:49 Patient arrived in ED. as 10:49 Jose De Paz MD is Private Physician. as 10:55 Inserted saline lock: 22 gauge in right hand, using aseptic technique. kg 10:57 Triage completed. tw2 10:59 Arm band placed on. tw2 11: Clem Malone RN is Primary Nurse. ll1 11:01 Arabella Franco MD is Attending Physician. ma2 11: Patient has correct armband on for positive identification. Bed in low position. Call ll1 light in reach. Side rails up X 1. Pulse ox on. NIBP on. 11:05 COVID-19 : Document "Date of Symptom Onset" if Symptomatic. Sent. ll1 17:12 Jose De Paz MD is Hospitalizing Provider. iw 17:39 No provider procedures requiring assistance completed. kg Administered Medications: No medications were administered Outcome: 17:13 Decision to Hospitalize by Provider. iw 17:34 Admitted to Med/surg accompanied by nurse, via wheelchair, room 218, Report called to kg Facundo RN 17:43 Condition: stable kg 17:43 Instructed on the need for admit, Demonstrated understanding of instructions. 18:16 Patient left the ED. kg Signatures: Zaira Elizondo Irene, RN RN iw Mery Lion RN RN 2 Arabella Franco MD MD [facility] Clem Malone RN RN [facility] Melvi Tello RN RN kg Corrections: (The following items were deleted from the chart) 11:06 10:55 Immunization history: Client reports receiving the 2nd dose of the Covid vaccine, ia2 11: 10:55 Social history: Smoking status: Patient reports the use of cigarette tobacco ia2 products, smokes one-half pack cigarettes per day, tw10 25: 10:57 Allergies: Phenergan; : 10:57 Home Meds: amlodipine 10 mg tab 1 tab once daily; : 10:57 Home Meds: divalproex 250 mg Oral Tb24 once daily; 10:57 Home Meds: divalproex 500 mg Oral TbEC 2 tabs once daily; 10:57 Home Meds: gabapentin 300 mg Oral cap 1 cap two times per day; 10:57 Home Meds: metoprolol tartrate 50 mg Oral tab 1 tab 2 times per day; [place] [address] 10:57 Home Meds: mirtazapine 30 mg Oral TbDL 1 tab once daily; [place] [address] 10:57 Home Meds: simvastatin 40 mg Oral tab 1 tab once daily; [place] [address] 10:57 Home Meds: sertraline 100 mg Oral tab 1 tab once daily; [place] [address] 10:57 PMHx: anmesia; [place] [address] 10:57 PMHx: Hyperlipidemia; [place] [address] 10:57 PMHx: Bipolar disorder; [place] [address] 10:57 PMHx: Sleep Apnea; [place] [address] 10:57 PMHx: Renal Disease; [place] [address] 10:57 PMHx: spinal stenosis; [place] [address] 10:57 PMHx: Hypertension; [place] [address] 10:57 PMHx: stage 4 kidney failure; [place] [address]
[2021-06-06] MEDS: NACHLORIDE 0.45% 1,000 ML IV SCH ×2 (08:25→18:16)
--- NOTE | 2021-06-06 14:13 | CON ---
Date of Consultation: 06/06/2021 Reason For Consultation: Elevated BUN and creatinine, fluid management. History Of Present Illness: This is a pleasant 66-year-old gentleman, well known to me from previous admission with significant past medical history of chronic kidney disease stage 4, baseline creatini ne 3.2 as of March 2021 with GFR of 20, hypertension, hyperlipidemia, CAD complicated with congestive heart failure status post CABG, obstructive sleep apnea, the patient was in his regular state of heal th according to him in the last few days, the patient started having nausea and vomiting without any other GI symptoms. The patient had abdominal pain. No fever or chills. No change in bowel movement . The patient came to the hospital. Primary workup showed elevation in creatinine 4.6 with GFR of 1 3. For that reason, we have been consulted. Reviewing the record for the patient, there is no insul ting medication at home. Over the night, the patient was started on gentle hydration. The patient s lightly feeling better. Still complaining from abdominal pain, but no shortness of breath. Past Medical History: Includes; 1.Hypertension. 2.Hyperlipidemia. 3.CAD status post CABG, complicated with congestive heart failure. 4.Obstructive sleep apnea. 5.Chronic kidney disease, stage 4, baseline creatinine 3.2 and GFR of 20 as of March 2021. 6.Congestive heart failure, ejection fraction of 51% as of 2019. Past Surgical History: Includes; 1.CABG back in 2010. 2.Cholecystectomy. Allergies: TO PHENERGAN. Family History: Positive for pancreatic cancer, hypertension, and polycythemia. Social History: Active smoker. Denied alcohol. Denied drugs abuse. Home Medications: Include clonazepam, calcitriol, Zoloft, mirtazapine, cholecalciferol, atorvastatin , aspirin, and amlodipine. Current Medications: Include IV fluid, loperamide. Review of Systems: Head and Neck: No red eye. No ear pain. GI: Has nausea, vomiting. Has abdominal pain. : No polyuria. No dysuria. No hematuria. 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 Respiratory: No shortness of breath. Cardiovascular: No chest pain. Endocrine: No polydipsia. Skin: No rash. Neuro: Generalized weakness. Musculoskeletal: Fatigue. Physical Examination: General: When I saw the patient; the patient lying in bed, no shortness of breath, lying flat. Vital Signs: Blood pressure 136/68, pulse of 57, afebrile. Chest: Clear to auscultation. Heart: S1, S2. Regular. Systolic murmur. Abdomen: Soft, nontender. Extremities: No edema. Neurologic: Alert, oriented x3. No focal. No tremor. Laboratory Data: Sodium 142, potassium 3.8, bicarb 19, chloride 112, BUN 52, creatinine 4.6, GFR of 13, calcium 8.2, phosphorus 4.5, magnesium 2.3. WBC 5.6, H and H 14.5/45.1, platelets 141. Assessment And Plan: 1.Acute kidney injury on advanced chronic kidney disease, looked to me prerenal. No uremic symptoms . No hyperkalemia. Marginal acidosis. I agree with holding all blood pressure medications. Agree with IV fluid. I had long discussion with the patient about the option of treatment. I do not see t he need for any renal replacement therapy for the time being. We will follow up lab by tomorrow and depending on that, we will formalize further plan. I am going to go ahead and send for CK and uric a amanda for better evaluation of the fluid status for the patient and we will follow up. 2.Hypertension with the presence of acute kidney injury. Hold all blood pressure medications. 3.Abdominal pain, gastroenteritis as by primary. Continue symptomatic treatment. Continue IV fluid . 4.Coronary artery disease with congestive heart failure, currently looked to me on the dry side. Ho ld on any diuresis. Continue IV fluid. 5.Acidosis, non-anion gap metabolic acidosis secondary to renal failure. No need for bicarb for the time being. 6.Hypokalemia. We will hold on any supplement for the time being given the acute kidney injury. ODELL/SASHA Voice ID: [id number] Report ID: [id number]
[2021-06-06 15:45] LABS: UR PROTEIN 21.5 mg/dL (<11.9); Urine Protein/Creatinine Ratio 0.21 ratio (<0.15)
--- NOTE | 2021-06-06 21:38 | P.PN ---
Subjective Date of Service: 06/06/21 Chief Complaint: WEAKNESS, FATIGUE Subjective: Improving HE IS GIVEN IV FLUIDS FORACUTE ON CHORNIC RENAL FAILURE. HE ADMITS THAT HE DOES NOT DRINK WATER ALL DAY. HE IS ASKED TO DRINK WATER INSTEAD OF SOFT DRINKS AND QUIT SMOKING MANY TIMES. Physical Examination - Vital Signs Temperature: 97 F Blood Pressure: 163/82 Pulse: 62 Respirations: 18 Pulse Ox (%): 96 - Physical Exam General: Oriented x3, Mild distress HEENT: Atraumatic, PERRLA, EOMI Neck: Supple, JVD not distended Respiratory: Clear to auscultation bilaterally, Normal air movement Cardiovascular: Regular rate/rhythm, Normal S1 S2 Gastrointestinal: Normal bowel sounds, No tenderness Musculoskeletal: No tenderness Integumentary: No rashes Neurological: Normal speech, Normal tone, Normal affect Lymphatics: No axilla or inguinal lymphadenopathy - Studies Medications List Reviewed: Yes Assessment And Plan - Current Problems (Diagnosis) (1) Renal failure (ARF), acute on chronic Current Visit: No Status: Acute Plan: IV SHOULD HELP IS TOLD ONCE MORE THAT NOT MUCH CAN BE DONE DESPITE HIS DRINKING ENOUGH PLAIN WATER HE IS LACKING. DAILY CREAT CHECK. (2) Bipolar disorder Onset Date: 02/23/18 Current Visit: No Status: Chronic Plan: CONT MEDS, CURRENTLY STABLE. Qualifiers:
[2021-06-07] MEDS: NACHLORIDE 0.45% 1,000 ML IV SCH (04:52)
[2021-06-07 05:18] LABS: Albumin 3.1 g/dL (3.4-5.0); Phosphorus 2.9 mg/dL (2.5-4.9); Potassium 3.6 mmol/L (3.5-5.1); Uric Acid 10.4 mg/dL (3.5-7.2)
--- NOTE | 2021-06-07 05:32 | P.PN ---
Subjective Date of Service: 06/07/21 Chief Complaint: WEAKNESS, FATIGUE Subjective: No new changes Physical Examination - Vital Signs Temperature: 97.3 F Blood Pressure: 145/78 Pulse: 59 Respirations: 18 Pulse Ox (%): 95 - Physical Exam General: Other (appears as his stated age) HEENT: Atraumatic, Normocephalic Neck: Supple Respiratory: Other (symmetric chest expansion) Cardiovascular: No rubs, No murmurs Gastrointestinal: Soft and benign, No guarding Musculoskeletal: No clubbing Integumentary: No warmth Neurological: Normal tone Urinary: Other (no bladder distention) - Studies Medications List Reviewed: Yes Assessment And Plan - Plan 1. ROSS secondary to prerenal state, on CKD4. baseline serum creatinine 3.2 as of March 2021. No rhabdo. ROSS improved w/ IV hydration. liberal by mouth fluid intake. Dc IV fluid. Monitor renal panel. 2. Nausea, vomiting, abdominal pain, acute gastroenteritis. Resolved. Monitor. 3. Hypertension. BP ok. Continue current regimen. 4. Coronary artery disease. continue cardioprudent medications 5. Bipolar disorder. Management per other services
[2021-06-07] MEDS: clonazePAM 0.5 MG TAB PO SCH ×2 (08:27→13:13)
[2021-06-07] MEDS ORDERED: CALCITROL 0.25 MCG CAP PO SCH (09:00)
[2021-06-07] MEDS ORDERED: AMLODIPINE 10 MG TAB PO SCH (09:00)
[2021-06-07] MEDS ORDERED: ASPIRIN EC 81 MG TAB PO SCH (09:00)
[2021-06-07] MEDS ORDERED: VITAMIN D 1000 UNIT TAB PO SCH (09:00)
[2021-06-07] MEDS ORDERED: SERTRALINE HCL 100 MG TAB PO SCH (09:00)
[2021-06-07 12:44] VITALS: TEMP 97.3
[2021-06-07 13:37] VITALS: O2SAT 97
--- NOTE | 2021-06-07 17:52 | P.DS ---
Admission Date: 06/07/21 Discharge Date: 06/07/21 Disposition: ROUTINE DISCHARGE Discharge Condition: GOOD Reason for Admission: WEAKNESS, FATIGUE - Problems (1) Renal failure (ARF), acute on chronic Status: Acute (2) Bipolar disorder Onset Date: 02/23/18 Status: Chronic Qualifiers: Hospital Course: RHEA GETS DEHYDRATED ON TOP OF HIS CKD 4. HE SMOKES, HE DRINKS SOFT DRINKS BUT NOT WATER. HE HAS IMPROVED AFTER IV FLUIDS BACK TO HIS BASELINE. I HAVE ASKED HIM TO CONTINUE DRINKING 64 OZ OF PLAIN WATER DAILY. I WILL SEE HIM IN OFFICE MIRIAN WEEK. Vital Signs/Physical Exam: Temp Pulse Resp BP Pulse Ox 97.3 F 65 18 140/76 97 06/07/21 12:00 06/07/21 12:00 06/07/21 12:00 06/07/21 12:00 06/07/21 12:00 Laboratory Data at Discharge: WBC 5.60 K/uL (4.3-10.9) 06/05/21 11:20 Hgb 14.5 g/dL (13.6-17.9) 06/05/21 11:20 Hct 45.1 % (39.6-49.0) 06/05/21 11:20 Plt Count 144 K/uL (152-406) L 06/05/21 11:20 PT 10.3 SECONDS (9.5-12.5) 06/05/21 11:20 INR 0.90 06/05/21 11:20 APTT 25.1 SECONDS (24.3-36.9) 06/05/21 11:20 Sodium 142 mmol/L (136-145) 06/07/21 03:47 Potassium 3.6 mmol/L (3.5-5.1) 06/07/21 03:47 BUN 38 mg/dL (7-18) H 06/07/21 03:47 Creatinine 3.41 mg/dL (0.55-1.3) H D 06/07/21 03:47 Glucose 67 mg/dL (74-106) L 06/07/21 03:47 Uric Acid 10.4 mg/dL (3.5-7.2) H D 06/07/21 03:47 Phosphorus 2.9 mg/dL (2.5-4.9) 06/07/21 03:47 Magnesium 2.3 mg/dL (1.8-2.4) 06/05/21 11:20 Total Bilirubin 0.4 mg/dL (0.2-1.0) 06/05/21 11:20 AST 34 U/L (15-37) 06/05/21 11:20 ALT 27 U/L (12-78) 06/05/21 11:20 Alkaline Phosphatase 53 U/L (45-117) 06/05/21 11:20 Home Medications: Amlodipine [Norvasc*] 10 mg PO DAILY 06/19/20 Aspirin [Ecotrin 81 MG] 81 mg PO DAILY 06/19/20 Atorvastatin Calcium 10 mg PO BEDTIME 06/19/20 Cholecalciferol (Vitamin D3) [Vitamin D3] 25 mg PO DAILY 06/19/20 Divalproex ER [Depakote *ER] 500 mg PO BEDTIME 06/19/20 Mirtazapine 7.5 mg PO BEDTIME 06/19/20 Sertraline [Zoloft*] 100 mg PO DAILY 06/19/20 calcitrioL [Rocaltrol] 0.25 mcg PO DAILY 06/19/20 clonazePAM [Klonopin] 1 mg PO TID 06/19/20 Physician Discharge Instructions: PROBLEM: Renal Failure GOAL: Clear understanding of disease process INSTRUCTIONS: okay to discharge home no new medications were prescribed to you this visit continue taking all of your home medications as prescribed follow up with Dr De Paz in 1 week follow up with Dr Sood in 1 week If you have any questions regarding your hospital stay call [phone] If your symptoms worsen come back to emergency room or call 911 Diet: Renal Diet Activity: DME DME: None Date Ordered: Name of Company: [employer] Services Needed: None Name of Company: Date or Referral: IMMUNIZATION Influenza Vaccine Indicated: No Influenza Vaccine Given: Date Given: Pneumonia Vaccine Indicated: No Pneumonia Vaccine Given: Date Given: Followup: Bolivar Sood [ACTIVE - CAN ADMIT] - Jose De Paz MD [Primary Care Provider] -
[2021-06-07] MEDS ORDERED: MIRTAZAPINE 15 MG TAB PO SCH (21:00)
[2021-06-07] MEDS ORDERED: DIVALPROEX ER 250 MG TAB PO SCH (21:00)
[2021-06-07] MEDS ORDERED: ATORVASTATIN 10 MG TAB PO SCH (21:00)
[2021-06-07 22:52] VITALS: BP 145/78
[2021-06-09 00:03] LABS: Vitamin D 1,25-Dihydroxy Total 24 pg/mL (18-72); Vitamin D,1,25-OH2, D2 <8 pg/mL
[2021-06-11 23:23] LABS: Vitamin D 1,25-Dihydroxy Total 14 pg/mL (18-72); Vitamin D,1,25-OH2, D2 <8 pg/mL
== END 2021-06-07 16:20 | disposition home or self-care (01) | DRG 683 ==
LOC: ER 10:45 → ERHOLD 10:48 → 2ND 18:01 → OBSVTOIN 06-07 10:30
PROVIDERS: ADMIT Internal Medicine; ATTEND Internal Medicine
DX: I12.9 Hypertensive chronic kidney disease with stage 1 through stage 4 chronic kidney disease, or unspecified chronic kidney disease (principal); N17.9 Acute kidney failure, unspecified; N18.4 Chronic kidney disease, stage 4 (severe); E87.2 Acidosis; I25.10 Atherosclerotic heart disease of native coronary artery without angina pectoris; F31.9 Bipolar disorder, unspecified; K52.9 Noninfective gastroenteritis and colitis, unspecified; E87.6 Hypokalemia; F17.210 Nicotine dependence, cigarettes, uncomplicated; Z95.1 Presence of aortocoronary bypass graft; Z20.822 Contact with and (suspected) exposure to COVID-19
CPT/HCPCS: 36415; 71046; 80048; 80069; 80076; 81003; 82550; 82570; 82607; 82652; 83735; 83970; 84100; 84156; 84443; 84550; 85025; 85610; 85730; 87086; 87088; 93005; 99283; G0378; J1650; U0003

== ENCOUNTER 2021-06-23 10:43 | Emergency (ER) | payer OTHER ==
[2021-06-23 12:16] LABS: Absolute Lymphocytes (CBC) 0.9 K/uL (0.7-4.9); Basophils % 0.6 % (0-1.3); Hematocrit 38.8 % (39.6-49.0); Lymphocytes % 13.7 % (15.3-44.8); MPV 7.6 fL (7.6-11.3); RBC Red Blood Cell Count 3.78 M/uL (4.33-5.43)
--- NOTE | 2021-06-23 12:17 | RAD REPORT ---
EXAM DESCRIPTION: RAD - Chest Single View - 06/23/2021 12:06 pm CLINICAL HISTORY: weakness COMPARISON: Two view chest June 05 TECHNIQUE: AP portable chest image was obtained 06/23/2021 12:06 pm . FINDINGS: Lung volumes are low. Interstitial pattern similar to comparison. Heart and vasculature ar e normal. No measurable pleural effusion and no pneumothorax. No acute bony abnormality seen. No acut e aortic findings suspected. IMPRESSION: No acute cardiopulmonary process. No significant change from comparison study.
[2021-06-23 12:28] LABS: Protime INR 0.92
[2021-06-23 12:33] LABS: ALT/SGPT 15 U/L (12-78); AST/SGOT 14 U/L (15-37); Albumin 2.7 g/dL (3.4-5.0); Alkaline Phosphatase 49 U/L (45-117); BUN Blood Urea Nitrogen 47 mg/dL (7-18); Bicarbonate 22 mmol/L (21-32); Bilirubin Direct 0.2 mg/dL (0-0.2); Bilirubin Total 0.5 mg/dL (0.2-1.0); Glucose Level 85 mg/dL (74-106); Magnesium 2.3 mg/dL (1.8-2.4); NT PRO-BNP 6424 pg/mL (<125); Potassium 4.3 mmol/L (3.5-5.1); Protein, Total 6.5 g/dL (6.4-8.2); Sodium Level 140 mmol/L (136-145); Troponin (Emerg Dept Use Only) < 0.02 ng/mL (0.0-0.045)
[2021-06-23 15:02] LABS: Urine Blood 3+ (Negative); Urine Glucose Negative (Negative); Urine Protein 1+ (Negative); Urine pH 5.5 (5.0-7.0)
[2021-06-23 16:07] LABS: Urine Bacteria >50 /HPF (NONE SEEN); Urine RBC <5 /HPF (NONE SEEN)
--- NOTE | 2021-06-23 16:15 | EDPHYS ---
Physician Documentation [facility] Name: Kavin Armijo Age: 66 yrs Sex: Male : 1955 Arrival Date: 06/23/2021 Time: 10:45 Bed 13 Private MD: ED Physician Ebenezer Bautista HPI: 06/23 12:03 This 66 yrs old Male presents to ER via Wheelchair with complaints of pm1 Weakness. 12:03 The patient presents to the emergency department with weakness of the entire body, pm1 generalized weakness. Onset: The symptoms/episode began/occurred 1 week(s) ago. Associated signs and symptoms: Pertinent positives: Decreased urinary output, Pertinent negatives: fever, nausea, Vomiting, diarrhea, shortness of breath, chest pain, cough. Severity of symptoms: in the emergency department the symptoms are unchanged Pain is currently a 0 / 10. The patient has not recently seen a physician. 58-year-old patient presenting to the ER with complaints of generalized weakness onset 7 days ago. Patient also reports decreased urination, has a history of chronic renal failure. Baseline creatinine around 4 and currently in stage IV-V renal failure. Historical: - Allergies: 11:27 Phenergan; vg1 - PMHx: 11:27 Kidney Failure; vg1 - Immunization history:: Adult Immunizations up to date, Client reports receiving the 2nd dose of the Covid vaccine. - Social history:: Smoking status: Patient reports the use of cigarette tobacco products, smokes one-half pack cigarettes per day. ROS: 12:03 Constitutional: Negative for fever, chills, and weight loss, Cardiovascular: Negative pm1 for chest pain, palpitations, and edema, Respiratory: Negative for shortness of breath, cough, wheezing, and pleuritic chest pain, Abdomen/GI: Negative for abdominal pain, nausea, vomiting, diarrhea, and constipation, Back: Negative for injury and pain. 12:03 MS/Extremity: Negative for injury and deformity, Skin: Negative for injury, rash, and discoloration. 12:03 : Positive for Decreased urination, Negative for flank pain. 12:03 All other systems are negative. Exam: 12:03 Constitutional: This is a well developed, well nourished patient who is awake, alert, pm1 and in no acute distress. Head/Face: Normocephalic, atraumatic. 12:03 Skin: Warm, dry with normal turgor. Normal color with no rashes, no lesions, and no evidence of cellulitis. MS/ Extremity: Pulses equal, no cyanosis. Neurovascular intact. Full, normal range of motion. 12:03 Cardiovascular: Exam negative for acute changes, Rate: normal, Rhythm: regular, Pulses: no pulse deficits are appreciated, Heart sounds: normal. 12:03 Respiratory: Exam negative for acute changes, respiratory distress, shortness of breath. 12:03 Abdomen/GI: Exam negative for acute changes, Inspection: abdomen appears normal, Palpation: abdomen is soft and non-tender, in all quadrants. 12:03 Neuro: Exam negative for acute changes, Orientation: is normal, Mentation: is normal, Motor: is normal, moves all fours, Sensation: is normal, no obvious gross deficits. Vital Signs: 11:22 BP 80 / 59; Pulse 63; Resp 16; Temp 98.3; Pulse Ox 98% ; Weight 74.39 kg; Height 5 ft. vg1 7 in. (170.18 cm); Pain 0/10; 11:36 BP 99 / 69; ll1 12:29 BP 98 / 57; Pulse 58; Resp 14; Temp 98.2; Pulse Ox 95% ; cs9 13:00 BP 100 / 61; Pulse 51; Resp 13; Pulse Ox 96% on R/A; ll1 16:42 BP 123 / 73; Pulse 75; Resp 14; Pulse Ox 97% ; ll1 11:22 Body Mass Index 25.69 (74.39 kg, 170.18 cm) vg1 NIH Stroke Scale Scores: 12:30 NIHSS Score: 0 ll1 MDM: 11:43 Patient medically screened. pm1 16:12 ED course: Patient wants to go home now even though we are pending urine micro. pm1 16:12 Counseling: I had a detailed discussion with the patient and/or guardian regarding: the pm1 historical points, exam findings, and any diagnostic results supporting the discharge/admit diagnosis, lab results, radiology results, the need for outpatient follow up, to return to the emergency department if symptoms worsen or persist or if there are any questions or concerns that arise at home. 16:12 Data reviewed: vital signs. Data interpreted: Pulse oximetry: on room air is 96 %. pm1 Interpretation: normal. 16:28 ED course: Urine micro results returned. Urinary tract infection present therefore will pm1 discharge patient home with antibiotics after IV antibiotics given in ER. 06/23 11:43 Order name: Basic Metabolic Panel pm1 06/23 11:43 Order name: CBC with Diff pm1 06/23 11:43 Order name: LFT's pm1 06/23 11:43 Order name: Magnesium; Complete Time: 12:34 pm1 06/23 11:43 Order name: NT PRO-BNP; Complete Time: 12:34 pm1 06/23 11:43 Order name: PT-INR; Complete Time: 12:46 pm1 06/23 11:43 Order name: Troponin (emerg Dept Use Only); Complete Time: 12:34 pm1 06/23 11:44 Order name: Basic Metabolic Panel; Complete Time: 12:34 EDMS 06/23 11:44 Order name: CBC with Automated Diff; Complete Time: 12:20 EDMS 06/23 11:44 Order name: Liver (Hepatic) Function; Complete Time: 12:34 EDMS 06/23 11:44 Order name: Flu; Complete Time: 14:09 pm1 06/23 13:17 Order name: SARS-COV-2 RT PCR; Complete Time: 14:43 EDMS 06/23 15:02 Order name: Urine Dipstick-Ancillary EDMS 06/23 11:43 Order name: XRAY Chest (1 view); Complete Time: 12:20 pm1 06/23 11:43 Order name: EKG; Complete Time: 11:44 pm1 06/23 11:43 Order name: Cardiac monitoring; Complete Time: 12:04 pm1 06/23 11:43 Order name: EKG - Nurse/Tech; Complete Time: 12:04 pm1 06/23 11:43 Order name: IV Saline Lock; Complete Time: 11:45 pm1 06/23 11:43 Order name: Labs collected and sent; Complete Time: 11:45 pm1 06/23 11:43 Order name: O2 Per Protocol; Complete Time: 11:45 pm1 06/23 11:43 Order name: O2 Sat Monitoring; Complete Time: 11:45 pm1 06/23 14:56 Order name: Urine Dipstick-Ancillary (obtain specimen); Complete Time: 16:27 pm1 06/23 15:43 Order name: Urine Microscopic Only pm1 06/23 15:44 Order name: Urine Microscopic Only; Complete Time: 16:25 EDMS 06/23 16:09 Order name: Urine Culture EDMS Administered Medications: 16:42 Drug: Rocephin (cefTRIAXone) 1 grams {Note: R vastus lateralis IM.} Route: IV; Rate: ll1 calculated rate; Site: Other; 17:47 Follow up: Response: No adverse reaction; IV Status: Completed infusion; IV Intake: 2ml ll1 Point of Care Testin:46 n/a ll1 Ranges: Critical Glucose Levels:Adult <50 mg/dl or >400 mg/dl <40 mg/dl or >180 mg/dl Disposition Summary: 06/23/21 16:14 Discharge Ordered Location: Home pm1 Problem: new pm1 Symptoms: have improved pm1 Condition: Stable pm1 Diagnosis - Weakness pm1 - Dehydration pm1 - Chronic renal failure pm1 - UTI/ Urinary tract infection, site not specified pm1 Followup: pm1 - With: Emergency Department - When: As needed - Reason: Recheck today's complaints, Continuance of care, Re-evaluation by your physician Followup: pm1 - With: Private Physician - When: 2 - 3 days - Reason: Recheck today's complaints, Continuance of care, Re-evaluation by your physician Discharge Instructions: - Discharge Summary Sheet pm1 - Dehydration, Adult pm1 - Weakness, [id number] pm1 - Chronic Kidney Disease, Adult, [id number] pm1 - Food Basics for Chronic Kidney Disease pm1 - Urinary Tract Infection, Adult pm1 - Preventing Chronic Kidney Disease pm1 Forms: - Medication Reconciliation Form pm1 - Thank You Letter pm1 - Antibiotic Education pm1 - Prescription Opioid Use pm1 - Work release form 1 Prescriptions: - cefpodoxime 200 mg Oral Tablet - take 1 tablet by ORAL route every 12 hours for 7 days with food; 20 tablet; pm1 Refills: 0, Product Selection Permitted NIH Stroke Scale - NIH Stroke Score Date: 06/23/2021 Time: 12:30 Total Score = 0 1a. Level of Consciousness (LOC) - 0(Alert) 1b. Level of Consciousness (LOC) (Month \T\ Age) - 0(Both) 1c. LOC Commands (Open \T\ Closes Eyes/Carpenter Maintenance) - 0(Both) 2. Best Gaze (Lateral Gaze Paresis) - 0(Normal) 3. Visual Field Loss - 0(No visual loss) 4. Facial Palsy - 0(Normal) 5a. Left Arm: Motor (10-second hold) - 0(No drift) 5b. Right Arm: Motor (10-second hold) - 0(No drift) 6a. Left Leg: Motor (5-second hold - always test supine) - 0(No drift) 6b. Right Leg: Motor (5-second hold - always test supine) - 0(No drift) 7. Limb Ataxia (finger/nose \T\ heel/daam - test with eyes open) - 0(Absent) 8. Sensory Loss (pinprick arms/legs/face) - 0(Normal) 9. Best Language: Aphasia (description/naming/reading) - 0(No aphasia) 10. Dysarthria (speech clarity - read or repeat words) - 0(Normal) 11. Extinction and Inattention (visual/tactile/auditory/spatial/personal) - 0(No abnormality) Initials: ll1 Addendum: 06/27/2021 00:03 Co-signature as Attending Physician, Ebenezer Bautista MD I agree with the international trade compliance manager and plan of care. Attestation: The patient's history, exam findings, diagnostics, and a summary of any interventions or procedures was reviewed in detail with Zhen Jefferson NP. Signatures: Dispatcher [employer] Ebenezer Arzate MD MD rn Marinas, Patrick, NP STRAIGHT EDGER pm1 Dejah Gibbons RN RN vg1 Clem Malone RN RN ll1 Corrections: (The following items were deleted from the chart) 06/23 13:17 11:44 CORONAVIRUS+MR.LAB.BRZ ordered. [facility]
--- NOTE | 2021-06-23 16:15 | ER ---
Nurse's Notes [facility] Name: Kavin Armijo Age: 66 yrs Sex: Male : 1955 Arrival Date: 06/23/2021 Time: 10:45 Bed 13 Private MD: Diagnosis: Weakness;Dehydration;Chronic renal failure;UTI/ Urinary tract infection, site not specified Presentation: 06/23 11:22 Chief complaint: Patient states: "Im having kidney failure and when I go pee very vg1 little comes out and im feeling fatigue all time" Pt states has been feeling like this for about a week. Denies NVD. Pt states is seeing Dr Louie and PCP is Dr De Paz . Coronavirus screen: Vaccine status: Patient reports receiving the 2nd dose of the covid vaccine. Ebola Screen: Patient negative for fever greater than or equal to 101.5 degrees Fahrenheit, and additional compatible Ebola Virus Disease symptoms. No acute neurological deficit is noted. Initial Sepsis Screen: Does the patient meet any 2 criteria? No. Patient's initial sepsis screen is negative. Does the patient have a suspected source of infection? No. Patient's initial sepsis screen is negative. Risk Assessment: Do you want to hurt yourself or someone else? Patient reports no desire to harm self or others. Onset of symptoms was June 16, 2021. 11:22 Method Of Arrival: Wheelchair vg1 11:22 Acuity: CHANNING 2 vg1 12:30 Pre-hospital glucose is not applicable to this patient. ll1 13:03 No acute neurological deficit is noted. ll1 Triage Assessment: 11:27 The onset of the patients symptoms was more than six hours ago. General: Appears in no vg1 apparent distress. uncomfortable, Behavior is calm, cooperative. Pain: Denies pain. Neuro: Level of Consciousness is awake, alert, obeys commands, Oriented to person, place, time, situation, Chemical Production Engineer are equal bilaterally Moves all extremities. Speech is normal, Facial symmetry appears normal, Reports weakness since about a week ago. 17:46 The onset of the patients symptoms was more than six hours ago. ll1 17:47 The onset of the patients symptoms was June 23, 2021 at 12:30. ll1 Stroke Activation: Symptom onset > 6 hours Physician: Stroke Attending; Name: ; Notified At: ; Arrived At: Physician: Chief Stroke Resident; Name: ; Notified At: ; Arrived At: Physician: Stroke Resident; Name: ; Notified At: ; Arrived At: Physician: ED Attending; Name: ; Notified At: ; Arrived At: Physician: ED Resident; Name: ; Notified At: ; Arrived At: Historical: - Allergies: 11:27 Phenergan; vg1 - PMHx: 11:27 Kidney Failure; vg1 - Immunization history:: Adult Immunizations up to date, Client reports receiving the 2nd dose of the Covid vaccine. - Social history:: Smoking status: Patient reports the use of cigarette tobacco products, smokes one-half pack cigarettes per day. Screenin:03 Abuse screen: Denies threats or abuse. Nutritional screening: No deficits noted. ll1 Tuberculosis screening: No symptoms or risk factors identified. Fall Risk IV access (20 points). Gait- Weak (10 pts.). Total Zaidi Fall Scale indicates Low Risk Score (25-44 pts). Fall prevention measures have been instituted. Side Rails Up X 2 Frequent Obs/Assesments occuring As available Patient and Family Educated on Fall Prevention Program and strategies. Assessment: 12:30 VAN Scoring: Aphasia: No aphasia noted. T-PA (Activase) Screening: Indications: ll1 Treatment will start within 4.5 hours onset of symptoms: No. 13:30 The patient has not been NPO before screening. The patient is alert, and able to follow ll1 commands. The patient does not exhibit slurred or garbled speech. The patient is not exhibiting difficulty speaking. The patient does not exhibit difficulty understanding words. The patient is able to swallow own secretions with no drooling or need for suction. Patient tolerated one teaspoon of water. No drooling, immediate coughing, gurgling, or clearing of the throat was noted. The patient tolerated 90mL of water. No drooling, immediate coughing, gurgling, or clearing of the throat was noted. The patient passed the bedside swallow screening. Oral medications may be given as ordered. Contact Physician for further diet orders. 17:46 Provider notified of bedside swallow screening results: Zhen Jefferson NP. ll1 Vital Signs: 11:22 BP 80 / 59; Pulse 63; Resp 16; Temp 98.3; Pulse Ox 98% ; Weight 74.39 kg; Height 5 ft. vg1 7 in. (170.18 cm); Pain 0/10; 11:36 BP 99 / 69; ll1 12:29 BP 98 / 57; Pulse 58; Resp 14; Temp 98.2; Pulse Ox 95% ; cs9 13:00 BP 100 / 61; Pulse 51; Resp 13; Pulse Ox 96% on R/A; ll1 16:42 BP 123 / 73; Pulse 75; Resp 14; Pulse Ox 97% ; ll1 11:22 Body Mass Index 25.69 (74.39 kg, 170.18 cm) vg1 NIH Stroke Scale Scores: 12:30 NIHSS Score: 0 ll1 ED Course: 10:45 Patient arrived in ED. rg4 11:27 Triage completed. vg1 11:27 Arm band placed on. vg1 11:37 Zhen Jefferson NP is PHCP. pm1 11:37 Ebenezer Bautista MD is Attending Physician. pm1 11:45 Clem Malone RN is Primary Nurse. ll1 12:00 Patient has correct armband on for positive identification. Bed in low position. Call ll1 light in reach. Side rails up X 1. electronic wirer on. Pulse ox on. NIBP on. 12:00 Missed attempt(s): 22 gauge in right hand. Bleeding controlled, band aid applied, ll1 catheter tip intact. 12:05 Inserted saline lock: 22 gauge in left antecubital area, using aseptic technique. Blood ll1 collected. 12:06 XRAY Chest (1 view) In Process Unspecified. EDMS 12:27 EKG done, by ED staff. cs9 16:50 No provider procedures requiring assistance completed. IV discontinued, intact, ll1 bleeding controlled, No redness/swelling at site. Pressure dressing applied. Administered Medications: 16:42 Drug: Rocephin (cefTRIAXone) 1 grams {Note: R vastus lateralis IM.} Route: IV; Rate: ll1 calculated rate; Site: Other; 17:47 Follow up: Response: No adverse reaction; IV Status: Completed infusion; IV Intake: 2ml ll1 Point of Care Testin:46 n/a ll1 Ranges: Intake: 17:47 IV: 2ml; Total: 2ml. ll1 Outcome: 16:14 Discharge ordered by . pm1 16:50 Patient left the ED. ll1 16:50 Discharged to home ambulatory. ll1 16:50 Condition: stable 16:50 Discharge instructions given to patient, Instructed on discharge instructions, follow up and referral plans. medication usage, Demonstrated understanding of instructions, follow-up care, medications, Prescriptions given X 1. NIH Stroke Scale - NIH Stroke Score Date: 06/23/2021 Time: 12:30 Total Score = 0 1a. Level of Consciousness (LOC) - 0(Alert) 1b. Level of Consciousness (LOC) (Month \\T\\ Age) - 0(Both) 1c. LOC Commands (Open \\T\\ Closes Eyes/Specialty Sales Representative) - 0(Both) 2. Best Gaze (Lateral Gaze Paresis) - 0(Normal) 3. Visual Field Loss - 0(No visual loss) 4. Facial Palsy - 0(Normal) 5a. Left Arm: Motor (10-second hold) - 0(No drift) 5b. Right Arm: Motor (10-second hold) - 0(No drift) 6a. Left Leg: Motor (5-second hold - always test supine) - 0(No drift) 6b. Right Leg: Motor (5-second hold - always test supine) - 0(No drift) 7. Limb Ataxia (finger/nose \\T\\ heel/adam - test with eyes open) - 0(Absent) 8. Sensory Loss (pinprick arms/legs/face) - 0(Normal) 9. Best Language: Aphasia (description/naming/reading) - 0(No aphasia) 10. Dysarthria (speech clarity - read or repeat words) - 0(Normal) 11. Extinction and Inattention (visual/tactile/auditory/spatial/personal) - 0(No abnormality) Initials: 1 Addendum: 06/26/2021 11:04 Addendum: Culture Results: Positive urine culture. Bacteria is resistant to, ss has intermediate sensitivity, or is not tested against prescribed antibiotics. Report given to NEIL for further evaluation and then to county or city auditor for follow up with patient. Phone call Attempt #1 No answer. Left VM. Signatures: Dispatcher [employer] Lesa Carson RN RN ss Zhen Jefferson, [facility] OPERATIONS MANAGER pm1 Taylor Gibbons rg4 Dejah Gibbons, RN RN 1 Clem Malone RN RN ll1 Shraddha Romero 9
[2021-06-23] MEDS ORDERED: CEFTRIAXONE 1000 MG/VIAL ONE ×2 (16:54→17:01)
[2021-06-23 16:59] VITALS: TEMP 98.2
[2021-06-23] MEDS ORDERED: LIDOCAINE 1% MPF 2 ML AMPULE ONE (17:01)
[2021-06-23 17:02] VITALS: BP 123/73; O2SAT 97
--- NOTE | 2021-06-24 07:07 | EKG ---
Test Date: 2021-06-23 Test Time: 11:53:42 Telephone Information Supervisor: BRITT MEASUREMENT RESULTS: Intervals: Rate: 55 NC: 130 QRSD: 100 QT: 438 QTc: 419 [place]: P: 60 NC: 130 QRS: 45 T: 71 INTERPRETIVE STATEMENTS: Sinus bradycardia Incomplete right bundle branch block Nonspecific ST abnormality Abnormal ECG Compared to ECG 06/23/2021 11:53:10 No significant changes Electronically Signed On 06-24-21 07:04:40 CDT by Han Dhillon
--- NOTE | 2021-06-24 07:07 | EKG ---
Test Date: 2021-06-23 Test Time: 11:53:10 Wet Pour Supervisor: BRITT MEASUREMENT RESULTS: Intervals: Rate: 56 IL: 134 QRSD: 98 QT: 436 QTc: 420 [place]: P: 61 IL: 134 QRS: 54 T: 71 INTERPRETIVE STATEMENTS: Sinus bradycardia Incomplete right bundle branch block Nonspecific ST abnormality Abnormal ECG Compared to ECG 06/05/2021 11:34:53 Incomplete right bundle-branch block now present ST (T wave) deviation now present Electronically Signed On 06-24-21 07:04:40 CDT by Han Dhillon
== END 2021-06-23 16:50 | disposition home or self-care (01) ==
LOC: ER 10:43
DX: N39.0 Urinary tract infection, site not specified (principal); E86.0 Dehydration; R53.1 Weakness; N18.9 Chronic kidney disease, unspecified; F17.210 Nicotine dependence, cigarettes, uncomplicated; Z88.8 Allergy status to other drugs, medicaments and biological substances; Z20.822 Contact with and (suspected) exposure to COVID-19
CPT/HCPCS: 96365; 93005 ×2; 87088; 85025; 87086; 80048; 36415; 83735; 85610; 80076; 87077; 87186; 84484; 83880; 87804 ×2; 71045; 99285; U0003; 81003; 81015

== ENCOUNTER 2021-06-27 15:08 | Observation (INO) | payer OTHER ==
--- NOTE | 2021-06-27 17:01 | RAD REPORT ---
EXAM DESCRIPTION: CT - Head Brain Wo Cont - 06/27/2021 4:54 pm CLINICAL HISTORY: WEAKNESS Headache, drowsiness COMPARISON: Head Brain Wo Cont dated 08/05/2018; Head Brain Wo Cont dated 05/24/2018 TECHNIQUE: All CT scans are performed using dose optimization technique as appropriate and may inclu de automated exposure control or mA/KV adjustment according to patient size. FINDINGS: No intracranial hemorrhage, hydrocephalus or extra-axial fluid collection.Moderate general ized brain atrophy is present.No areas of brain edema or evidence of midline shift. The paranasal sinuses and mastoids are clear. The calvarium is intact. IMPRESSION: No acute intracranial abnormality.
--- NOTE | 2021-06-27 17:04 | RAD REPORT ---
EXAM DESCRIPTION: CT - Stone Protocol - 06/27/2021 4:54 pm CLINICAL HISTORY: Flank pain. kidney failure COMPARISON: Abdomen Pelvis Wo Contrast dated 06/28/2019 TECHNIQUE: Axial images were obtained without oral or IV contrast. Lack of contrast limits solid org an and vascular assessment. The [id number] spans the entirety of the system partially obscuring uppermost abdomen and lung bases. Coronal reformatted images were obtained and reviewed. All CT scans are performed using dose optimization technique as appropriate and may include automated exposure control or mA/KV adjustment according to patient size. FINDINGS: The lower lung barrera are clear. Cholecystectomy clips. 17 mm cyst is present in the medial inferior right lobe of the liver. No aggressive liver lesion or b iliary dilatation.The spleen is normal in size. The pancreas and adrenal glands are normal. No pathol ogic lymphadenopathy in the abdomen or pelvis. Hyperdense cyst is seen inferolateral pole left kidney measuring 25 mm, likely benign. No urinary tra ct stone or obstructive uropathy. No bowel obstruction, free air, free fluid or abscess. Normal appendix noted.Urinary bladder is decom pressed. Moderate lumbar degenerative changes are present with levoscoliosis. IMPRESSION: No urinary tract stones or obstructive uropathy.
--- NOTE | 2021-06-27 17:18 | RAD REPORT ---
EXAM DESCRIPTION: RAD - Chest Single View - 06/27/2021 4:54 pm CLINICAL HISTORY: weakness Chest pain. COMPARISON: Chest Single View dated 06/23/2021; Chest Pa And Lat (2 Views) dated 06/05/2021; Chest Pa And Lat (2 Views) dated 03/25/2021; Chest Single View dated 06/19/2020 FINDINGS: Portable technique limits examination quality. The lungs are grossly clear. The heart is normal in size. No displaced fractures.Sternotomy wires. IMPRESSION: No acute intrathoracic process suspected.
[2021-06-27 17:36] LABS: Basophils % 0.6 % (0-1.3); Hematocrit 43.2 % (39.6-49.0); Lymphocytes % 24.5 % (15.3-44.8); MPV 7.4 fL (7.6-11.3); RBC Red Blood Cell Count 4.26 M/uL (4.33-5.43)
[2021-06-27 17:37] LABS: Absolute Lymphocytes (CBC) 1.4 K/uL (0.7-4.9)
[2021-06-27 18:17] LABS: Urine Blood Trace-intact (Negative); Urine Glucose Negative (Negative); Urine Protein Negative (Negative); Urine pH 5.5 (5.0-7.0)
[2021-06-27 18:56] LABS: Urine Bacteria <20 /HPF (NONE SEEN); Urine RBC <5 /HPF (NONE SEEN)
[2021-06-27 19:41] LABS: Protime INR 1.03
[2021-06-27 20:09] LABS: ALT/SGPT 18 U/L (12-78); Albumin 2.8 g/dL (3.4-5.0); Alkaline Phosphatase 51 U/L (45-117); BUN Blood Urea Nitrogen 57 mg/dL (7-18); Bicarbonate 20 mmol/L (21-32); Bilirubin Direct < 0.1 mg/dL (0-0.2); Bilirubin Total 0.3 mg/dL (0.2-1.0); Glucose Level 79 mg/dL (74-106); NT PRO-BNP 5385 pg/mL (<125); Protein, Total 6.9 g/dL (6.4-8.2); Sodium Level 140 mmol/L (136-145); Troponin (Emerg Dept Use Only) < 0.02 ng/mL (0.0-0.045)
[2021-06-27 20:10] LABS: AST/SGOT 21 U/L (15-37); Magnesium 2.4 mg/dL (1.8-2.4); Potassium 4.1 mmol/L (3.5-5.1)
--- NOTE | 2021-06-27 21:57 | EDPHYS ---
Physician Documentation [facility] Name: Kavin Armijo Age: 66 yrs Sex: Male : 1955 Arrival Date: 06/27/2021 Time: 15:10 Bed 16 Private MD: ED Physician Ashish Child HPI: 06/27 16:00 This 66 yrs old Male presents to ER via Ambulatory with complaints of cp Dehydration. 16:00 The patient's problem is reported as weakness, that is generalized, unsteady gait. cp 16:00 Onset: The symptoms/episode began/occurred 1-2 weeks ago. cp 16:00 Duration: The episode is continuous. Associated signs and symptoms: Pertinent cp positives: dizziness, lightheadedness, Pertinent negatives: abdominal pain, chest pain, confusion, diarrhea, vomiting. Severity of symptoms: in the emergency department the symptoms are unchanged despite home interventions. Patient's baseline: Neuro: alert and fully oriented, Motor: no deficits, Ambulation: walks without assistance, Speech: normal. The patient has been recently seen at the [facility], for similar complaints was given a prescription for antibiotics, diagnosed with urinary tract infection, 4 days ago. Historical: - Allergies: 15:38 Phenergan; ap3 - PMHx: 15:38 kidney failure; ap3 - Immunization history:: Client reports receiving the 2nd dose of the Covid vaccine. - Social history:: Smoking status: Patient reports the use of cigarette tobacco products, smokes one-half pack cigarettes per day. ROS: 16:05 Constitutional: Positive for poor PO intake, Negative for body aches, chills, fever. cp 16:05 Eyes: Negative for injury, pain, redness, and discharge. cp 16:05 ENT: Negative for ear pain, sore throat, difficulty swallowing, difficulty handling secretions. 16:05 Cardiovascular: Negative for chest pain, edema, palpitations. 16:05 Respiratory: Negative for cough, shortness of breath, wheezing. 16:05 Abdomen/GI: Negative for abdominal pain, nausea, vomiting, and diarrhea. 16:05 : Positive for decreased urine output, Negative for flank pain, burning with urination, difficulty urinating. 16:05 Skin: Negative for cellulitis, rash. 16:05 Neuro: Positive for dizziness, weakness, Negative for altered mental status, headache, loss of consciousness, syncope. 16:05 All other systems are negative. Exam: 16:10 Constitutional: The patient appears in no acute distress, alert, awake, comfortable, cp non-diaphoretic, non-toxic, well developed, well nourished. 16:10 Head/Face: Normocephalic, atraumatic. cp 16:10 Eyes: Periorbital structures: appear normal, Pupils: equal, round, and reactive to light and accomodation, Extraocular movements: intact throughout, Conjunctiva: normal, no exudate, no injection, Sclera: no appreciated abnormality, Lids and lashes: appear normal, bilaterally. 16:10 ENT: External ear(s): are unremarkable, Nose: is normal, Mouth: Lips: moist, Oral mucosa: moist, Posterior pharynx: Airway: no evidence of obstruction, patent. 16:10 Neck: ROM/movement: is normal, is supple, without pain, no range of motions limitations, no nuchal rigidity. 16:10 Chest/axilla: Inspection: normal, Palpation: is normal, no crepitus, no tenderness. 16:10 Cardiovascular: Rate: normal, Rhythm: regular, Edema: is not appreciated, JVD: is not appreciated. 16:10 Respiratory: the patient does not display signs of respiratory distress, Respirations: normal, no use of accessory muscles, no retractions, labored breathing, is not present, intercostal retractions, are absent, Breath sounds: are clear throughout, no decreased breath sounds, no stridor, no wheezing. 16:10 Abdomen/GI: Inspection: abdomen appears normal, Bowel sounds: active, all quadrants, Palpation: abdomen is soft and non-tender, in all quadrants, rebound tenderness, is not appreciated, voluntary guarding, is not appreciated, involuntary guarding, is not appreciated. 16:10 Back: pain, is absent, ROM is normal, CVA tenderness, is absent. 16:10 Skin: cellulitis, is not appreciated, no rash present. 16:10 Neuro: Orientation: to person, place \\T\\ time. Mentation: is normal, Cerebellar function: Romberg testing is negative, Motor: moves all fours, general weakness with no focal deficits, Sensation: is normal. 17:15 Radiologist reports: no acute findings cp 18:00 ECG was reviewed by the Attending Physician. cp Vital Signs: 15:36 BP 121 / 73; Pulse 73; Resp 17; Temp 97.8; Pulse Ox 100% on R/A; Weight 70.31 kg; ap3 Height 5 ft. 7 in. (170.18 cm); 15:36 Body Mass Index 24.28 (70.31 kg, 170.18 cm) ap3 MDM: 15:47 Patient medically screened. cp 16:00 Differential diagnosis: CVA, TIA, metabolic disorder, drug effects. cp 21:30 Data reviewed: vital signs, nurses notes, lab test result(s), EKG, radiologic studies, cp CT scan, plain films. 21:30 Test interpretation: by ED physician or midlevel provider: ECG. 21:45 Physician consultation: Jose De Paz MD was called at 21:45, was contacted at 21:45, cp regarding admission, to the telemetry unit. patient's condition. 21:55 Physician consultation: Huey Younger MD was contacted at 21:50, regarding cp consult, patient's condition, wants patient to be given IV fluids of D5/NS at 75 cc/hr. 06/27 15:58 Order name: Lactate cp 06/27 15:58 Order name: Procalcitonin 06/27 15:58 Order name: Blood Culture Adult (2) 06/27 15:58 Order name: Basic Metabolic Panel; Complete Time: 21:20 cp 06/27 21:20 Interpretation: Normal except: CL 112; CO2 20; BUN 57; CRE 4.16; GFR 14. 06/27 15:58 Order name: CBC with Diff; Complete Time: 18:13 06/27 18:13 Interpretation: Normal except: RBC 4.26; MCV 101.5; PLT 175; RDW 16.2; MPV 7.4; MN% cp 14.1. 06/27 15:58 Order name: LFT's; Complete Time: 21:20 cp 06/27 21:20 Interpretation: Normal except: ALB 2.8; GLOB 4.1; A/G 0.7. cp 06/27 15:58 Order name: Magnesium; Complete Time: 21:20 cp 06/27 15:58 Order name: NT PRO-BNP; Complete Time: 21:20 06/27 21:20 Interpretation: Abnormal: NT PRO-BNP 5385. cp 06/27 15:58 Order name: PT-INR; Complete Time: 21:20 cp 06/27 15:58 Order name: Troponin (emerg Dept Use Only); Complete Time: 21:20 cp 06/27 15:58 Order name: Urine Microscopic Only; Complete Time: 19:51 cp 06/27 19:51 Interpretation: Reviewed. cp 06/27 15:59 Order name: Lactate EDMS 06/27 15:59 Order name: Procalcitonin; Complete Time: 21:20 EDMS 06/27 21:26 Interpretation: Abnormal: Procalcitonin 0.55. cp 06/27 15:59 Order name: Blood Culture EDMS 06/27 15:58 Order name: XRAY Chest (1 view); Complete Time: 18:13 cp 06/27 18:17 Order name: Urine Dipstick-Ancillary; Complete Time: 18:31 EDMS 06/27 21:21 Interpretation: Normal except: UBLD Trace-intact; UESTR Trace. 06/27 18:57 Order name: Urine Culture EDMS 06/27 22:05 Order name: COVID-19 (Coronavirus) Document "Date of Onset" if Symptomatic 06/27 22:19 Order name: Cortisol Stimulation Profile EDMS 06/27 23:54 Order name: CORTISOL--BASE EDMS 06/28 00:22 Order name: SARS-COV-2 RT PCR EDMS 06/28 06:35 Order name: Basic Metabolic Panel EDMS 06/28 07:11 Order name: CBC with Automated Diff EDMS 06/28 09:44 Order name: Phosphorus EDMS 06/28 09:44 Order name: Magnesium EDMS 06/28 10:07 Order name: CORTISOL--BASE EDMS 06/28 10:35 Order name: CORTISOL--30MIN EDMS 06/28 10:57 Order name: CORTISOL--60MIN EDMS 06/28 11:32 Order name: CORTISOL--90MIN EDMS 06/28 12:57 Order name: Gram Stain--Aerobic Bottle EDMS 06/27 15:58 Order name: EKG; Complete Time: 16:00 cp 06/27 15:58 Order name: Cardiac monitoring; Complete Time: 17:44 cp 06/27 15:58 Order name: EKG - Nurse/Tech; Complete Time: 17:44 cp 06/27 15:58 Order name: IV Saline Lock; Complete Time: 17:44 cp 06/27 15:58 Order name: Labs collected and sent; Complete Time: 17:44 06/27 15:58 Order name: O2 Per Protocol; Complete Time: 17:44 06/27 15:58 Order name: O2 Sat Monitoring; Complete Time: 17:44 06/27 15:58 Order name: Cath; Complete Time: 17:44 06/27 15:58 Order name: Urine Dipstick-Ancillary (obtain specimen); Complete Time: 18:17 06/27 15:58 Order name: CT Head Brain wo Cont; Complete Time: 17:13 06/27 17:13 Interpretation: Report reviewed. 06/27 16:19 Order name: CT Stone Protocol; Complete Time: 17:13 06/27 17:13 Interpretation: Report reviewed. 06/27 17:43 Order name: Labs - recollect needed: recollect 2 green tops and 1 blue, tubes not bd full.; Complete Time: 18:17 06/27 22:19 Order name: CONS Physician Consult EDMS 06/27 22:19 Order name: Regular EDMS 06/28 02:36 Order name: US Rp Exam Complete cp 06/28 08:34 Order name: US EDMS 06/28 15:08 Order name: MRI EDMS EC:00 Rate is 71 beats/min. Rhythm is regular. PA interval is normal. QRS interval is normal. cp QT interval is prolonged at 458 msec. T waves are Inverted in lead aVR. Interpreted by me. Reviewed by me. Administered Medications: 21:44 Drug: NS 0.9% 500 ml Route: IV; Rate: bolus; Site: right antecubital; mr2 22:07 Drug: D5-NS 1000 ml Route: IV; Rate: 75 ml/hr; Site: left antecubital; mr2 Disposition: 06/29 12:55 Co-signature as Attending Physician, Ashish Child MD I agree with the assessment and lorenzo plan of care. Disposition Summary: 06/27/21 21:57 Hospitalization Ordered Hospitalization Status: Observation cp Provider: Jose De Paz cp Condition: Stable cp Problem: an ongoing problem cp Symptoms: have improved cp Bed/Room Type: Standard cp Location: Telemetry/MedSurg (observation)(06/28/21 14:24) eb Room Assignment: 221(06/28/21 14:24) eb Diagnosis - Volume depletion, unspecified cp - Dehydration cp - Unspecified kidney failure cp Forms: - Medication Reconciliation Form cp - SBAR form cp Signatures: Dispatcher [employer] Linda Garvin Corey, MD MD cha Page, Corey, Patt Castillo cp, RN RN Helen Noyola RN RN ap3 Karrie Ferris Mike RN RN mr2 Corrections: (The following items were deleted from the chart) 06/27 23:42 21:57 Telemetry/MedSurg (observation) cp cg 23:42 21:57 cp cg 06/28 14:24 06/27 23:42 [facility] ER HOLD cg eb 06/28 14:24 06/27 23:42 ERHOLD- cg eb
--- NOTE | 2021-06-27 21:57 | ER ---
Nurse's Notes [facility] Name: Kavin Lima Age: 66 yrs Sex: Male : 1955 Arrival Date: 06/27/2021 Time: 15:10 Bed 16 Private MD: Diagnosis: Volume depletion, unspecified;Dehydration;Unspecified kidney failure Presentation: 06/27 15:36 Chief complaint: Patient states: he was seen here on Thursday06/23/2021, he was dx with ap3 a UTI and was given fluids. Patient followed up with pastry cook helper, and was told if he didn't feel better to come and get seen. Patient states that he does not feel better. Coronavirus screen: Vaccine status: Patient reports receiving the 2nd dose of the covid vaccine. Ebola Screen: No symptoms or risks identified at this time. Initial Sepsis Screen: Does the patient meet any 2 criteria? No. Patient's initial sepsis screen is negative. Does the patient have a suspected source of infection? No. Patient's initial sepsis screen is negative. Risk Assessment: Do you want to hurt yourself or someone else? Patient reports no desire to harm self or others. Onset of symptoms was June 14, 2021. 15:36 Method Of Arrival: Ambulatory ap3 15:36 Acuity: CHANNING 3 ap3 Triage Assessment: 15:38 General: Appears slender, Behavior is calm, cooperative, Reports fatigue for. Pain: ap3 Denies pain. Neuro: Level of Consciousness is awake, alert, obeys commands, Oriented to person, place, time, situation, Speech is normal. Cardiovascular: Patient's skin is warm and dry. Respiratory: Airway is patent. GI: Reports nausea, Patient currently denies diarrhea, vomiting. : Reports being dx with UTI Thursday06/23/2021. Historical: - Allergies: 15:38 Phenergan; ap3 - PMHx: 15:38 kidney failure; ap3 - Immunization history:: Client reports receiving the 2nd dose of the Covid vaccine. - Social history:: Smoking status: Patient reports the use of cigarette tobacco products, smokes one-half pack cigarettes per day. Screenin:40 Abuse screen: Denies threats or abuse. Nutritional screening: Tuberculosis screening: ap3 No symptoms or risk factors identified. 16:24 Fall Risk Gait-. oh Assessment: 16:22 Reassessment: stacie lima- [phone]. oh 16:22 General: Reports per his kidney doctor he his dehydrted. requesting fluids. per , oh pt does not drink enough water. Cardiovascular:. : Reports minimal urination, pt has kidney disease. Vital Signs: 15:36 BP 121 / 73; Pulse 73; Resp 17; Temp 97.8; Pulse Ox 100% on R/A; Weight 70.31 kg; ap3 Height 5 ft. 7 in. (170.18 cm); 15:36 Body Mass Index 24.28 (70.31 kg, 170.18 cm) ap3 ED Course: 15:10 Patient arrived in ED. rg4 15:38 Triage completed. ap3 15:40 Arm band placed on right wrist. ap3 15:40 Inserted saline lock: 24 gauge in right wrist, using aseptic technique. Blood collected.oh 15:41 Ashish Saba PA is PHCP. cp 15:41 Ashish Child MD is Attending Physician. cp 15:49 Gunnar Grimes, PILLO is Primary Nurse. oh 16:24 Bed in low position. Call light in reach. oh 16:30 CT Head Brain wo Cont In Process Unspecified. EDMS 16:32 CT Stone Protocol In Process Unspecified. EDMS 16:44 XRAY Chest (1 view) In Process Unspecified. EDMS 21:55 Jose De Paz MD is Hospitalizing Provider. cp 22:07 COVID-19 (Coronavirus) Document "Date of Onset" if Symptomatic Sent. mr2 Administered Medications: 21:44 Drug: NS 0.9% 500 ml Route: IV; Rate: bolus; Site: right antecubital; mr2 22:07 Drug: D5-NS 1000 ml Route: IV; Rate: 75 ml/hr; Site: left antecubital; mr2 Outcome: 21:57 Decision to Hospitalize by Provider. cp 06/28 16:05 Patient left the ED. eb Signatures: Dispatcher [employer] EDMS Ashish Saba PA PA cp Garcia, Rubi rg4 Helen Patel RN RN ap3 Karrie Ferris Mike RN RN mr2 Gunnar Grimes, PILLO RN oh Corrections: (The following items were deleted from the chart) 06/27 15:40 15:36 Chief complaint: Patient states: he was seen here on Thursday06/23/2021, and was ap3 given fluids. Patient followed up with pastry cook helper, and was told if he didn't feel better to come and get seen. Patient states that he does not feel better. ap3
[2021-06-27] MEDS ORDERED: NA CHLORIDE 0.9% 500 ML ONE (22:08)
[2021-06-27] MEDS ORDERED: ONDANSETRON 4 MG/2 ML VIAL IV PRN (22:14)
[2021-06-27] MEDS: D5 0.9 NS 1,000 ML IV SCH (23:00)
[2021-06-27] MEDS ORDERED: Ciprofloxacin 200mg IV 200 MG/100 ML IV.SOLN. IV SCH (23:00)
[2021-06-28 03:54] VITALS: BMI 26.6
[2021-06-28 06:35] LABS: Potassium 3.5 mmol/L (3.5-5.1)
[2021-06-28 07:08] LABS: Absolute Lymphocytes (CBC) 1.7 K/uL (0.7-4.9); Basophils % 0.7 % (0-1.3); Hematocrit 39.8 % (39.6-49.0); MPV 7.1 fL (7.6-11.3); RBC Red Blood Cell Count 3.92 M/uL (4.33-5.43)
--- NOTE | 2021-06-28 07:26 | P.CNS ---
Date of Consult: 06/28/21 Reason for Consult: ross, ckd Requesting Physician: Jose De Paz V Chief Complaint: Generalized weakness History of Present Illness: 66M w/ PMHx of CKD4, baseline SCr 3.2 as of March 2021 with GFR of 20, hypertension, hyperlipidemia, CAD s/p CABG, CHF, DOM, & bipolar dso who p/w generalized weakness, found to be volume depleted w/ ROSS. SCr 4.2 on hospital admission. He received IV fluids. SCr improved to 3.2 today. Allergies chlorpromazine HCl [From Thorazine] Allergy (Severe, Verified 03/25/21 14:55) Anaphylaxis promethazine HCl [From Phenergan] Allergy (Severe, Verified 03/25/21 14:55) Anaphylaxis Home Medications: Amlodipine [Norvasc*] 10 mg PO DAILY 06/19/20 Aspirin [Ecotrin 81 MG] 81 mg PO DAILY 06/19/20 Atorvastatin Calcium 10 mg PO BEDTIME 06/19/20 Cholecalciferol (Vitamin D3) [Vitamin D3] 25 mg PO DAILY 06/19/20 Divalproex ER [Depakote *ER] 500 mg PO BEDTIME 06/19/20 Mirtazapine 7.5 mg PO BEDTIME 06/19/20 Sertraline [Zoloft*] 100 mg PO DAILY 06/19/20 calcitrioL [Rocaltrol] 0.25 mcg PO DAILY 06/19/20 clonazePAM [Klonopin] 1 mg PO TID 06/19/20 - Past Medical/Surgical History Diabetic: No -: Obstructive sleep apnea -: Chronic renal disease, stage IV -: CAD with prior CABG x3 vessel -: Bipolar disorder -: Chronic pain-lower back -: Hypertension -: Hyperlipidemia -: Insomnia -: History of dvt right calf (knee fracture) -: Colon polyps -: GERD with ulcers -: Tobacco abuse -: CABG x3 vessel -: cholecystectomy -: triple bypass -: knee surgery Psychosocial/ Personal History: Patient is - Family History Mother Medical History: Heart disease Notes: polycythemia, MA Father Medical History: Other (see notes) Notes: pancreatic cancer - Social History Smoking Status: Current every day smoker Alcohol use: No CD- Drugs: No Caffeine use: No Physical Examination Temp Pulse Resp BP Pulse Ox 98.4 F 74 16 134/79 98 06/28/21 04:00 06/28/21 04:00 06/28/21 04:00 06/28/21 04:00 06/28/21 04:00 General: In no apparent distress, Other (Frail looking) HEENT: Atraumatic, Normocephalic Neck: Supple, JVD not distended Respiratory: Other (Symmetric chest expansion) Cardiovascular: No rubs, No murmurs Gastrointestinal: Soft and benign, Non-distended Musculoskeletal: No clubbing Integumentary: No warmth Neurological: Normal speech, Normal tone Lymphatics: No axilla or inguinal lymphadenopathy Urinary: Other (No bladder distention) External genitalia: Deferred Rectal: Deferred Laboratory Data (last 24 hrs) 06/27/21 19:20: PT 11.9, INR 1.03 06/27/21 19:20: Sodium 140, Potassium 4.1, BUN 57 H, Creatinine 4.16 H, Glucose 79, Magnesium 2.4, Total Bilirubin 0.3, AST 21, ALT 18, Alkaline Phosphatase 51 06/27/21 17:21: WBC 5.80, Hgb 14.0, Hct 43.2, Plt Count 175 D Conclusions/Impression: # ROSS secondary to prerenal state, on CKD4 Baseline serum creatinine 3.2 as of March 2021 SCr 4.2 on adm. Received IV fluids. SCr improved to 3.2 today. [place] po fluid intake [facility] renal panel # CAD s/p CABG, CHF BNP chronically elevated Cont cardioprudent meds # Htn Cont current med regimen # Hypocalcemia Corrected serum Ca 8.3 F/u Phos & Mg # Bipolar disorder Mngt per other services # Debility Pt & requested for rehab facility placement PT/OT
[2021-06-28] MEDS ORDERED: PNEUMOCOCCAL VACCINE 0.5 ML IMVAC ONE (08:00)
[2021-06-28] MEDS ORDERED: INFLUENZA VACCINE (for 6+ mo) 0.5 ML DOSE IMVAC ONE (08:00)
[2021-06-28] MEDS ORDERED: Ciprofloxacin 200mg IV 200 MG/100 ML IV.SOLN. IV SCH (08:00)
--- NOTE | 2021-06-28 08:34 | RAD REPORT ---
EXAM DESCRIPTION: US - Renal Ultrasound-Complete - 06/28/2021 3:22 am CLINICAL HISTORY: Renal failure COMPARISON: 2019 FINDINGS: The right kidney measures 10 cm with an increased echotexture. The left kidney measures 11 cm with an increased echotexture. Bilateral renal cysts left greater than right The largest in left kidney measures 2.6 centimeters Hydronephrosis is not seen. Bladder wall is thickened IMPRESSION: Increased renal echotexture consistent with parenchymal disease Small renal cysts Thickened bladder wall may indicate cystitis
[2021-06-28] MEDS ORDERED: COSYNTROPIN 0.25 MG VIAL IV ONE (09:00)
[2021-06-28] MEDS ORDERED: SODIUM CHLORIDE 0.9% 10ML INJ IV ONE (09:00)
[2021-06-28 09:41] LABS: Phosphorus 3.3 mg/dL (2.5-4.9)
[2021-06-28 09:43] LABS: Magnesium 2.4 mg/dL (1.8-2.4)
[2021-06-28] MEDS ORDERED: ACETAMINOPHEN 325 MG TABLET PO PRN (10:18)
[2021-06-28] MEDS ORDERED: D5 0.9 NS 1,000 ML IV ONE (10:39)
[2021-06-28] MEDS ORDERED: ACETAMINOPHEN 325 MG TABLET ONE (10:55)
[2021-06-28] MEDS: D5 0.9 NS 1,000 ML IV SCH ×2 (11:00→16:17)
--- NOTE | 2021-06-28 13:39 | P.SSS ---
Patient History Date of Service: 06/28/21 Reason for admission: WEAKNESS History of Present Illness: RHEA IS A PATIENT WITH BIPOALR DISEASE, CKD-4 , HTN AND COMES AGAIN WITH WEAKNESS, FATIGUE WAS FOUND TO HAVE CREATININE IN4.1 REGION. HIS BASELINE IS ABOUT 3.0. WITH ONE DAY OF HYDRATION THE CREATININE IS DOWN TO 3 RANGE. HE IS STABLE. HE HAS HEADACHES. MRI OF BRAIN IS PENDIN. I HAD THEM DO ACTH STIMULATION TEST THAT IS NORMAL. I ALSO HAD TESTOSTERONE AND TSH FROM OFFICE THAT WERE NORMAL. HE DOES NOT DRINK WATER. 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 I AM NOT SURE IF HE FOLLOWING OUR ADVISE. HE CAN GO HOME LONG MRI BRAIN IS GOOD AND HE IS ABLE TO AMBULATE. HE SAYS IS VERBALLY ABUSIVE AND WANTS TO LEAVE HIM IN SEPTEMBER. SHE HAS SAID THAT BEFORE MANY TIMES BUT SHE IS NOT GONE YET PER HIM. Allergies chlorpromazine HCl [From Thorazine] Allergy (Severe, Verified 03/25/21 14:55) Anaphylaxis promethazine HCl [From Phenergan] Allergy (Severe, Verified 03/25/21 14:55) Anaphylaxis Home medications list reviewed: Yes Home Medications: Amlodipine [Norvasc*] 10 mg PO DAILY 06/19/20 Aspirin [Ecotrin 81 MG] 81 mg PO DAILY 06/19/20 Atorvastatin Calcium 10 mg PO BEDTIME 06/19/20 Cholecalciferol (Vitamin D3) [Vitamin D3] 25 mg PO DAILY 06/19/20 Divalproex ER [Depakote *ER] 500 mg PO BEDTIME 06/19/20 Mirtazapine 7.5 mg PO BEDTIME 06/19/20 Sertraline [Zoloft*] 100 mg PO DAILY 06/19/20 calcitrioL [Rocaltrol] 0.25 mcg PO DAILY 06/19/20 clonazePAM [Klonopin] 1 mg PO TID 06/19/20 - Past Medical/Surgical History Diabetic: No -: Obstructive sleep apnea -: Chronic renal disease, stage IV -: CAD with prior CABG x3 vessel -: Bipolar disorder -: Chronic pain-lower back -: Hypertension -: Hyperlipidemia -: Insomnia -: History of dvt right calf (knee fracture) -: Colon polyps -: GERD with ulcers -: Tobacco abuse -: CABG x3 vessel -: cholecystectomy -: triple bypass -: knee surgery Psychosocial/ Personal History: Patient is - Family History Mother -: Heart disease Notes: polycythemia, [place] Father -: Other (see notes) Notes: pancreatic cancer - Social History Smoking Status: Former smoker Alcohol use: No CD- Drugs: No Caffeine use: No Review of Systems 10-point ROS is otherwise unremarkable General: Weakness Physical Examination - Vital Signs Temperature: 97.9 F Blood Pressure: 158/92 Pulse: 67 Respirations: 19 Pulse Ox (%): 98 - Physical Exam General: Oriented x3, Mild distress HEENT: Atraumatic, PERRLA, Mucous membr. moist/pink, EOMI, Sclerae nonicteric Neck: Supple, 2+ carotid pulse no bruit, No LAD, Without JVD or thyroid abnormality Respiratory: Clear to auscultation bilaterally, Normal air movement Cardiovascular: Regular rate/rhythm, Normal S1 S2 Gastrointestinal: Normal bowel sounds, No tenderness Musculoskeletal: No tenderness Integumentary: No rashes Neurological: Normal gait, Normal speech, Normal strength at 5/5 x4 extr, Normal tone, Normal affect Lymphatics: No axilla or inguinal lymphadenopathy - Studies Laboratory Data (last 24 hrs) 06/27/21 19:20: PT 11.9, INR 1.03 06/27/21 19:20: Sodium 140, Potassium 4.1, BUN 57 H, Creatinine 4.16 H, Glucose 79, Magnesium 2.4, Total Bilirubin 0.3, AST 21, ALT 18, Alkaline Phosphatase 51 06/27/21 17:21: WBC 5.80, Hgb 14.0, Hct 43.2, Plt Count 175 D Microbiology Data (last 24 hrs): 06/27/21 17:21 Blood - Blood Blood Culture Gram Stain - Final - Diagnosis (Problem(s)) (1) Acute on chronic renal failure Current Visit: No Status: Chronic Plan: THERE IS NO REASON FOR THIS EXCEPT POOR ORAL HYDRATION. HE NEEDS TO HYDRATE DAILY. WITH IV HIS CREAT IS BACK TO BASELINE. Qualifiers: Acute renal failure type: with other specified pathological lesion Chronic kidney disease stage: stage 4 (severe) Qualified Code(s): N17.8 - Other acute kidney failure; N18.4 - Chronic kidney disease, stage 4 (severe) (2) Bipolar disorder Onset Date: 02/23/18 Current Visit: No Status: Chronic Plan: HE HAS PSYCH PROVIDER. Qualifiers: Current bipolar episode type: depressed Current episode severity: moderate (3) Hypertension Current Visit: No Status: Chronic Qualifiers: Hypertension type: essential hypertension Qualified Code(s): I10 - Essential (primary) hypertension (4) Headache Current Visit: Yes Status: Acute Plan: POSSIBLE STRESS RELATED. THIS CAN BE MANAGED BY HIS PSYCH PROVIDER. MRI BRAIN PENDING. - Disposition Disposition: ROUTINE DISCHARGE
[2021-06-28] MEDS: clonazePAM 1 MG TAB PO SCH ×2 (14:00→20:08)
--- NOTE | 2021-06-28 15:07 | RAD REPORT ---
EXAM DESCRIPTION: MRI - Brain Wo Cont - 06/28/2021 2:57 pm CLINICAL HISTORY: headache COMPARISON: No comparisons TECHNIQUE: Sagittal T1-weighted images were obtained along with PD/heavily T2-weighted and T2-FLAIR images. Axial DWI and ADC mapping sequences were also obtained along with coronal heavily T2-weighted images were obtained. FINDINGS: No intracranial hemorrhage, mass or acute infarction. There is no edema or shift of midlin e structures. No extra-axial fluid collections. Signal voids are seen as a normal finding in the jostin r intracranial vessels. Mild chronic small vessel ischemic changes. 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 Cerebral atrophy which is age advanced. Mastoid air cells and paranasal sinuses are clear. IMPRESSION: No acute intracranial abnormality. Specifically, no evidence of acute infarct.
[2021-06-28] MEDS ORDERED: clonazePAM 1 MG TAB ONE (16:22)
[2021-06-28] MEDS ORDERED: CALCIUM GLUC 10% INJ 4.65 MEQ in NA CHLORIDE 0.9% 100 ML IV ONE (19:00)
[2021-06-28] MEDS: SODIUM BICARB 325 MG TAB PO SCH (20:10)
[2021-06-28] MEDS ORDERED: DIVALPROEX ER 250 MG TAB PO SCH (21:00)
[2021-06-28] MEDS ORDERED: ATORVASTATIN 10 MG TAB PO SCH (21:00)
[2021-06-28] MEDS ORDERED: MIRTAZAPINE 15 MG TAB PO SCH (21:00)
[2021-06-29] MEDS: D5 0.9 NS 1,000 ML IV SCH (03:41)
[2021-06-29 08:58] VITALS: O2SAT 95
[2021-06-29] MEDS ORDERED: ENOXAPARIN 30 MG/0.3 ML SQ SCH (09:00)
[2021-06-29] MEDS ORDERED: SERTRALINE HCL 100 MG TAB PO SCH (09:00)
[2021-06-29] MEDS: clonazePAM 1 MG TAB PO SCH ×2 (09:00→14:00)
[2021-06-29] MEDS ORDERED: AMLODIPINE 10 MG TAB PO SCH (09:00)
[2021-06-29 10:02] LABS: Absolute Lymphocytes (CBC) 1.5 K/uL (0.7-4.9); Basophils % 0.6 % (0-1.3); Lymphocytes % 29.2 % (15.3-44.8); MPV 6.9 fL (7.6-11.3); RBC Red Blood Cell Count 4.25 M/uL (4.33-5.43)
[2021-06-29 10:17] LABS: Potassium 3.8 mmol/L (3.5-5.1)
[2021-06-29] MEDS: SODIUM BICARB 325 MG TAB PO SCH (10:55)
[2021-06-29 10:56] VITALS: BP 148/86
--- NOTE | 2021-06-29 11:46 | EKG ---
Test Date: 2021-06-27 Test Time: 17:53:19 Plasterer Spot: VERONICA MEASUREMENT RESULTS: Intervals: Rate: 71 MI: 140 QRSD: 88 QT: 458 QTc: 497 [place]: P: 73 MI: 140 QRS: 85 T: 65 INTERPRETIVE STATEMENTS: Normal sinus rhythm Prolonged QT Abnormal ECG Compared to ECG 06/23/2021 11:53:42 Prolonged QT interval now present Sinus bradycardia no longer present Incomplete right bundle-branch block no longer present ST (T wave) deviation no longer present Electronically Signed On 06-29-21 11:44:42 CDT by Han Dhillon
[2021-06-29 12:02] VITALS: TEMP 98.8
--- NOTE | 2021-06-29 13:35 | PN ---
Date of Progress Note: 06/29/2021 Subjective: The patient was admitted with acute kidney injury secondary to prerenal, poor intake. The patient's after hydration kidney function back to baseline. Blood pressure still elevated. The patient tolerated his diet today. Physical Examination: Vital Signs: Blood pressure 179/90, pulse of 58, afebrile. The patient had good urine output, voiding. Chest: Clear to auscultation. Heart: S1, S2. Regular. Abdomen: Soft, nontender. Extremity: No edema. Neurologic: Alert. No focality. Laboratory Data: H and H 13/39.8. Sodium 144, potassium 3.5, bicarb 19, BUN 45, creatinine 3.1, GFR of 20, calcium 7.4, phosphorus 3.3, magnesium 2.4. Current Medications: The patient on include calcium gluconate, Lovenox, amlodipine, atorvastatin, Tylenol, clonazepam, Zoloft, sodium bicarb 3 tablets b.i.d. Assessment And Plan: 1. Acute kidney injury secondary to prerenal, recovered, resolved, back to baseline. No need for renal replacement therapy. I am going to go ahead and discontinue IV fluid. The patient will be cleared from the Renal standpoint for discharge planning. 2. Hypertension, not controlled. I am going to go ahead and add hydralazine for the patient regimen, could not add any beta-lyla given the marginal bradycardia. 3. Acidosis, non-anion gap metabolic acidosis secondary to renal failure and GI loss. Continue sodium bicarb. 4. Gastroenteritis, resolved, as by primary. The patient cleared from the Renal standpoint for discharge planning. time spend exam the patient face to face , reviewing data including radiology and lab , placing order discussing the case with other steam tank operator including hospitalist , 45 min DONN Voice ID: [id number] Report ID: [id number] KERI
[2021-06-29] MEDS ORDERED: HYDRALAZINE HCL 25 MG TABLET PO SCH (21:00)
== END 2021-06-29 16:06 | disposition home or self-care (01) ==
LOC: ER 15:08 → ERHOLD 22:54 → 2ND 06-28 15:50
PROVIDERS: ADMIT Internal Medicine; ATTEND Internal Medicine
DX: I12.9 Hypertensive chronic kidney disease with stage 1 through stage 4 chronic kidney disease, or unspecified chronic kidney disease (principal); N18.4 Chronic kidney disease, stage 4 (severe); N17.9 Acute kidney failure, unspecified; E86.0 Dehydration; E87.2 Acidosis; R51.9 Headache, unspecified; K52.9 Noninfective gastroenteritis and colitis, unspecified; F31.9 Bipolar disorder, unspecified; G47.33 Obstructive sleep apnea (adult) (pediatric); G47.00 Insomnia, unspecified; I25.10 Atherosclerotic heart disease of native coronary artery without angina pectoris; E78.5 Hyperlipidemia, unspecified; M54.50 Low back pain, unspecified; R53.81 Other malaise; K21.9 Gastro-esophageal reflux disease without esophagitis; R00.1 Bradycardia, unspecified; E83.51 Hypocalcemia; F17.210 Nicotine dependence, cigarettes, uncomplicated; Z20.822 Contact with and (suspected) exposure to COVID-19; Z95.1 Presence of aortocoronary bypass graft; Z88.8 Allergy status to other drugs, medicaments and biological substances; Z86.718 Personal history of other venous thrombosis and embolism; Z86.010 Personal history of colon polyps; Z90.49 Acquired absence of other specified parts of digestive tract; Z82.49 Family history of ischemic heart disease and other diseases of the circulatory system; Z80.0 Family history of malignant neoplasm of digestive organs
CPT/HCPCS: 93005; 87040 ×2; 87088; 85025 ×3; 87086; 80048 ×3; 36415 ×3; 83735 ×2; 87205 ×2; 84100; 85049; 85610; 80076; 83605; 84484; 82533 ×4; 84145; 82306; 82024; 83880; 70450; 76377; 74176; 71045; 70551; 76770; 97116 ×2; 97161; 97530; 96374; 99284; U0003; J0834; J0610; J1650; J0744; J7042 ×3; J7040; G0378 ×3; 81003; 81015

== ENCOUNTER 2021-11-16 13:46 | Emergency (ER) | payer OTHER ==
--- OUTSIDE RECORDS SUMMARY | 2021-11-16 13:50 | XMS REPORT | Continuity of Care Document ---
:1955 Author Organization [facility] t Address [address] [place] [address] Care Team Providers Name Role Phone Unavailable Unavailable Unavailable Problems This patient has no known problems. Allergies, Adverse Reactions, Alerts Allergy Allergy Status Severity Reaction(s) Onset Inactive Treating Comm ents Source Name Type Date Date Clinician Phenerga Adverse Active Info Not [facility] Medications Ordered Filled Start Stop Current Ordering Indication Dosage Frequency Signature Comments Components Source Medication Medication Date Date Medication? Clinician (SIG) Name Name Neurontin Neurontin Yes Jose Manuel [address] [facility] before [facility] Metoprolol Metoprolol Yes Jose Manuel TAKE ONE [facility] Tartrate Tartrate [facility] TABLET BY L [facility] - MOUTH [facility] TWICE A l DAY. TAKE Outpat[facility] WITH ent METOPROLOL Clinics 25MG TO EQUAL TOTAL DOSE OF 75MG TWICE DAILY Remeron Remeron Yes Jose Manuel [address] [facility] at bedtime [facility] Depakote ER Depakote ER Yes Jose Manuel not [facility] defined [facility] Metoprolol Metoprolol Yes Jose Manuel TAKE ONE [facility] Tartrate Tartrate [facility] TABLET BY [facility] - [facility]TH [facility] TWICE A l DAY. TAKE [facility] METOPROLOL Clinics 50MG TO TOTAL DOSE OF 75MG Simvastatin Simvastatin Yes Jose Manuel [address] [facility] in the [facility] - [facility] Zoloft Zoloft Yes Jose Manuel 1 tablet [facility] Colace Colace Yes Jose Manuel [address] [facility] as needed [facility] Aspirin Aspirin Yes Jose Manuel [address] [facility] Procedures This patient has no known procedures. Encounters Start End Encounter Admission Attending Care Care Encounter Source Date/Time Date/Time Type Type Clinicians Facility Department ID 2020-06-30 2020-06-30 Outpatient [facility] [id number] [facility] 2019-03-29 2019-03-29 [facility] [id number] [facility] 10[facility]30[facility] 10:30[facility]00 [facility] Medicine Outpat[facility] ent Clinics 2019-03-24 2019-03-24 [facility] [id number] [facility] 09:58:00 09:58:00 t [facility] Medicine Outpat[facility] Clinics 2019-03-23 2019-03-23 [facility] [id number] [facility] 15:09:00 15:09:00 t [facility] Medicine Outpat[facility] ent Clinics 2018-12-28 2018-12-28 [facility] [id number] [facility] 11[facility]15:00 11:15:00 t [facility] Medicine Outpati ent Clinics 2018-11-04 2018-11-04 [facility] [id number] [facility] 09:30:00 09:30:00 t [facility] Medicine Outpati ent Clinics 2018-09-30 2018-09-30 [facility] [id number] [facility] 10:45:00 10:45:00 t [facility] Medicine Outpati ent Clinics 2018-06-29 2018-06-29 [facility] [id number] [facility] 10:30:00 10:30:00 t [facility] Medicine Outpati ent Clinics 2018-05-28 2018-05-28 [facility] [id number] [facility] 10:26:[facility] 10:26:[address] [facility] - Drive [facility] l Medicine Outpati ent Clinics 2018-05-10 2018-05-10 [facility] [id number] [facility] [address] 13:00:[facility] 13:00:[address] [facility] - Drive [facility] Medicine l Medicine Outpati ent Clinics 2018-05-05 2018-05-05 [facility] [id number] [address] 08:31:[facility] 08:31:[address] [facility] - Drive [facility] Medicine l Medicine Outpati ent Clinics 2018-04-30 2018-04-30 [facility] [id number] [facility] 11:09:[facility] 11:09:[address] [facility] - Drive [facility] Medicine l Medicine Outpati ent Clinics 2018-04-15 2018-04-15 [facility] [id number] 16:14:[facility] 16:14:[address] [facility] - Drive [facility] Medicine l Medicine Outpati ent Clinics 2018-04-15 2018-04-15 [facility] [id number] 08:15:[facility] 08:15:[address] [facility] - Drive [facility] Medicine l Medicine Outpati ent Clinics 2018-02-25 2018-02-25 [facility] [id number] 14:45:00 14:45:[address] [facility] - Drive [facility] Medicine l Medicine Outpati ent Clinics 2017-12-09 2017-12-09 [facility] [id number] 08:18:[facility] 08:18:[address] [facility] - Drive [facility] Medicine l Medicine Outpati ent Clinics 2017-12-09 2017-12-09 [facility] [id number] 08:15:[facility] 08:15:[address] [facility] - Drive [facility] Medicine l Medicine Outpati ent Clinics 2017-12-09 2017-12-09 [facility] [id number] 08:14:00 08:14:[address] [facility] - Drive [facility] Medicine l Medicine Outpati ent Clinics Results This patient has no known results.
[2021-11-16] MEDS ORDERED: NA CHLORIDE 0.9% 500 ML ONE (14:30)
[2021-11-16 14:52] LABS: Urine Blood Negative (Negative); Urine Glucose Negative (Negative); Urine Protein Negative (Negative); Urine Specific Gravity 1.015 (1.005-1.030); Urine pH 5.5 (5.0-7.0)
[2021-11-16 15:00] LABS: Absolute Lymphocytes (CBC) 2.3 K/uL (0.7-4.9); Hematocrit 42.1 % (39.6-49.0); Lymphocytes % 40.9 % (15.3-44.8); MPV 7.3 fL (7.6-11.3); RBC Red Blood Cell Count 4.12 M/uL (4.33-5.43)
[2021-11-16 15:15] LABS: Potassium 3.8 mmol/L (3.5-5.1); Urine Bacteria <20 /HPF (NONE SEEN); Urine RBC <5 /HPF (NONE SEEN)
[2021-11-16 16:01] LABS: SARS-COV-2 RT PCR NEGATIVE (NEGATIVE)
[2021-11-16] MEDS ORDERED: NA CHLORIDE 0.9% 250 ML ONE (16:23)
--- NOTE | 2021-11-16 16:47 | EDPHYS ---
Physician Documentation [facility] Name: Kavin Armijo Age: 66 yrs Sex: Male : 1955 Arrival Date: 11/16/2021 Time: 13:49 Bed 20 Private MD: ED Physician Ebenezer Bautista HPI: 11/16 14:24 This 66 yrs old Male presents to ER via Wheelchair with complaints of rn Dizziness,possible dehydration. 14:24 The patient presents with dizziness, generalized weakness, lightheadedness. Onset: The rn symptoms/episode began/occurred today. Modifying factors: The symptoms are alleviated by nothing, the symptoms are aggravated by standing up. Associated signs and symptoms: Pertinent negatives: ataxia, chest pain, headache, shortness of breath, syncope, vomiting. Severity of symptoms: At their worst the symptoms were mild in the emergency department the symptoms are unchanged. The patient has experienced similar episodes in the past. The patient has not recently seen a physician. Pt reports was at work today when began to feel generalized weakness and fatigue, + achiness in back and legs. No fall or syncope. Denies chest pain/sob. Denies abd pain/vomiting/diarrhea. Reports has had this before and told doesn't drink enough water. No fever. . Historical: - Allergies: 14:11 Phenergan; ag7 - PMHx: 14:11 kidney failure; ag7 - Immunization history:: Adult Immunizations up to date, Client reports receiving the 2nd dose of the Covid vaccine. - Social history:: Smoking status: Patient reports the use of cigarette tobacco products, smokes one-half pack cigarettes per day. - Family history:: not pertinent. - Hospitalizations: : No recent hospitalization is reported. ROS: 14:24 Constitutional: Negative for fever, chills, and weight loss, Eyes: Negative for injury, rn pain, redness, and discharge, ENT: Negative for injury, pain, and discharge, Neck: Negative for injury, pain, and swelling, Cardiovascular: Negative for chest pain, palpitations, and edema, Respiratory: Negative for shortness of breath, cough, wheezing, and pleuritic chest pain, Abdomen/GI: Negative for abdominal pain, nausea, vomiting, diarrhea, and constipation, Back: Negative for injury and pain, : Negative for injury, bleeding, discharge, and swelling, MS/Extremity: Negative for injury and deformity, Skin: Negative for injury, rash, and discoloration, Neuro: Negative for headache, numbness, tingling, and seizure. Exam: 14:24 Constitutional: This is a well developed, well nourished patient who is awake, alert, rn and in no acute distress. Ambulatory to bed from wheelchair and stands on his own power, undressing himself. Head/Face: Normocephalic, atraumatic. Eyes: Periorbital areas with no swelling, redness, or edema. ENT: + dry MM Cardiovascular: Regular rate and rhythm. No pulse deficits. Respiratory: No increased work of breathing, no retractions or nasal flaring. Abdomen/GI: Soft, non-tender Skin: Warm, dry MS/ Extremity: Pulses equal, no cyanosis. Neurovascular intact. Full, normal range of motion. Equal circumference. Neuro: Awake and alert, GCS 15, oriented to person, place, time, and situation. Cranial nerves II-XII grossly intact. Motor strength 4/5 in all extremities. Sensory grossly intact. Cerebellar exam normal. 15:30 ECG was reviewed by the Attending Physician. rn Vital Signs: 14:08 BP 139 / 78; Pulse 65; Resp 16; Temp 96.0; Pulse Ox 97% ; Weight 65.77 kg; Height 5 ft. ag7 7 in. (170.18 cm); Pain 6/10; 14:33 BP 123 / 79; Pulse 68; Resp 16; Temp 97.8(O); Pulse Ox 99% on R/A; quinones 16:18 BP 117 / 66; Pulse 59; Resp 16; Pulse Ox 97% on R/A; quinones 14:08 Body Mass Index 22.71 (65.77 kg, 170.18 cm) ag7 MDM: 13:51 Patient medically screened. rn 16:43 Differential diagnosis: cardiac arrhythmia, generalized weakness, idiopathic dizziness, engineering patternmaker kidney disease. Data reviewed: vital signs, nurses notes, lab test result(s), EKG, and as a result, I will discharge patient. Counseling: I had a detailed discussion with the patient and/or guardian regarding: the historical points, exam findings, and any diagnostic results supporting the discharge/admit diagnosis, lab results, the need for outpatient follow up, to return to the emergency department if symptoms worsen or persist or if there are any questions or concerns that arise at home. Response to treatment: the patient's symptoms have markedly improved after treatment, and as a result, I will discharge patient. Special discussion: I discussed with the patient/guardian in detail that at this point there is no indication for admission to the hospital. It is understood, however, that if the symptoms persist or worsen the patient needs to return immediately for re-evaluation. ED course: Pt feels better just after IV fluids, stable vitals, + chronic kidney disease without significant change in creatinine. No other acute findings in workup. Will dc home with oral rehydration and return precautions. . 11/16 13:59 Order name: CBC with Diff; Complete Time: 15:20 rn 11/16 13:59 Order name: Basic Metabolic Panel; Complete Time: 15:20 rn 11/16 13:59 Order name: Urine Microscopic Only; Complete Time: 15:20 rn 11/16 13:59 Order name: Procalcitonin; Complete Time: 16:12 rn 11/16 13:59 Order name: Blood Culture Adult (2) rn 11/16 13:59 Order name: COVID-19/FLU A+B (Document "Date of Onset" if Symptomatic); Complete Time: rn 16:12 11/16 13:59 Order name: IV Start; Complete Time: 14:52 rn 11/16 13:59 Order name: Urine Dipstick-Ancillary (obtain specimen); Complete Time: 14:52 rn 11/16 13:59 Order name: EKG; Complete Time: 14:00 rn 11/16 13:59 Order name: EKG - Nurse/Tech; Complete Time: 15:30 rn 11/16 13:59 Order name: Cardiac monitoring; Complete Time: 14:52 rn 11/16 14:51 Order name: Urine Dipstick-Ancillary; Complete Time: 15:20 EDMS 11/16 13:59 Order name: O2 Sat Monitoring; Complete Time: 14:52 rn EC:30 Rate is 70 beats/min. Rhythm is regular. QRS [place] is Normal. NC interval is normal. QRS rn interval is normal. QT interval is normal. No Q waves. T waves are Normal. No ST changes noted. Clinical impression: Normal ECG. Interpreted by me. Reviewed by me. Administered Medications: 14:51 Drug: NS 0.9% 500 ml Route: IV; Rate: bolus; Site: right antecubital; quinones 16:31 Drug: NS 0.9% 250 ml Route: IV; Rate: 1 bolus; Site: right antecubital; Disposition Summary: 11/16/21 16:46 Discharge Ordered Location: Home rn Problem: chronic rn Symptoms: have improved rn Condition: Stable rn Diagnosis - Chronic kidney disease, unspecified rn - Dehydration rn - Weakness rn Followup: rn - With: Private Physician - When: As needed - Reason: Recheck today's complaints, Re-evaluation by your physician Discharge Instructions: - Discharge Summary Sheet rn - Dehydration, Adult rn - Weakness rn - Food Basics for Chronic Kidney Disease rn Forms: - Medication Reconciliation Form rn - Thank You Letter rn - 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
--- NOTE | 2021-11-16 16:47 | ER ---
Nurse's Notes [facility] Name: Kavin Armijo Age: 66 yrs Sex: Male : 1955 Arrival Date: 11/16/2021 Time: 13:49 Bed 20 Private MD: Diagnosis: Chronic kidney disease, unspecified;Dehydration;Weakness Presentation: 11/16 14:08 Chief complaint: Patient states: "The patient reports that he was at work and started ag7 to hurt while standing and walking". Coronavirus screen: Client denies travel out of the [place] in the last 14 days. At this time, the client does not indicate any symptoms associated with coronavirus-19. Ebola Screen: No symptoms or risks identified at this time. Initial Sepsis Screen: Does the patient meet any 2 criteria? No. Patient's initial sepsis screen is negative. Does the patient have a suspected source of infection? No. Patient's initial sepsis screen is negative. Risk Assessment: Do you want to hurt yourself or someone else? Patient reports no desire to harm self or others. Onset of symptoms was November 16, 2021. 14:08 Method Of Arrival: Wheelchair ag7 14:08 Acuity: CHANN[place] 3 ag7 Triage Assessment: 15:06 General: Appears Behavior is calm, cooperative. quinones Historical: - Allergies: 14:11 Phenergan; ag7 - PMHx: 14:11 kidney failure; ag7 - Immunization history:: Adult Immunizations up to date, Client reports receiving the 2nd dose of the Covid vaccine. - Social history:: Smoking status: Patient reports the use of cigarette tobacco products, smokes one-half pack cigarettes per day. - Family history:: not pertinent. - Hospitalizations: : No recent hospitalization is reported. Screenin:05 Abuse screen: Denies threats or abuse. Denies injuries from another. Nutritional quinones screening: No deficits noted. Tuberculosis screening: No symptoms or risk factors identified. Fall Risk IV access (20 points). Assessment: 15:05 Pain: Denies pain. Cardiovascular: Reports fatigue, lightheadedness. Musculoskeletal: quinones Reports pain in back, right leg and left leg. Vital Signs: 14:08 BP 139 / 78; Pulse 65; Resp 16; Temp 96.0; Pulse Ox 97% ; Weight 65.77 kg; Height 5 ft. ag7 7 in. (170.18 cm); Pain 6/10; 14:33 BP 123 / 79; Pulse 68; Resp 16; Temp 97.8(O); Pulse Ox 99% on R/A; quinones 16:18 BP 117 / 66; Pulse 59; Resp 16; Pulse Ox 97% on R/A; quinones 14:08 Body Mass Index 22.71 (65.77 kg, 170.18 cm) ag7 ED Course: 13:49 Patient arrived in ED. [email or web address] 13:51 Ebenezer Bautista MD is Attending Physician. rn 14:11 Triage completed. ag7 14:11 Arm band placed on right wrist. ag7 14:51 Urine Dipstick-Ancillary Sent. quinones 14:52 COVID-19/FLU A+B (Document "Date of Onset" if Symptomatic) Sent. quinones 14:52 Blood Culture Adult (2) Sent. quinones 14:52 Urine Microscopic Only Sent. quinones 14:52 Basic Metabolic Panel Sent. quinones 14:52 CBC with Diff Sent. quinones 14:52 Procalcitonin Sent. quinones 15:03 Arianne Kemp, RN is Primary Nurse. quinones 15:05 Patient has correct armband on for positive identification. Bed in low position. quinones 15:05 No provider procedures requiring assistance completed. Inserted saline lock: 20 gauge. quinones 17:19 IV discontinued, intact, Pressure dressing applied. quinones Administered Medications: 14:51 Drug: NS 0.9% 500 ml Route: IV; Rate: bolus; Site: right antecubital; quinones 16:31 Drug: NS 0.9% 250 ml Route: IV; Rate: 1 bolus; Site: right antecubital; quinones Outcome: 16:46 Discharge ordered by . rn 17:19 Discharged to home quinones 17:19 Condition: good 17:19 Discharge instructions given to patient. 17:36 Patient left the ED. quinones Signatures: bEenezer Bautista MD MD rn Jeffries, Jennifer [id number] Arianne Kemp RN RN ha Glenn, Angela, RN RN ag7
[2021-11-16 17:43] VITALS: TEMP 97.8
[2021-11-16 17:44] VITALS: BP 117/66; O2SAT 97
--- NOTE | 2021-11-17 09:24 | EKG ---
Test Date: 2021-11-16 Test Time: 14:57:28 Clinical Office Technician: LU MEASUREMENT RESULTS: Intervals: Rate: 69 NM: 156 QRSD: 86 QT: 398 QTc: 426 [place]: P: 70 NM: 156 QRS: 61 T: 56 INTERPRETIVE STATEMENTS: Normal sinus rhythm Normal ECG Compared to ECG 06/27/2021 17:53:19 Prolonged QT interval no longer present Electronically Signed On 11-17-21 09:23:03 RESIDENTIAL SPECIALIST by Han Dhillon
== END 2021-11-16 17:36 | disposition home or self-care (01) ==
LOC: ER 13:46
DX: E86.0 Dehydration (principal); N18.9 Chronic kidney disease, unspecified; Z20.822 Contact with and (suspected) exposure to COVID-19; Z88.8 Allergy status to other drugs, medicaments and biological substances
CPT/HCPCS: 93005 ×2; 87040 ×2; 85025; 80048; 36415; 84145; 0240U; 96374; 99283; J7050; J7040; 81003; 81015

== ENCOUNTER 2021-11-29 12:32 | Observation (INO) | payer OTHER ==
--- OUTSIDE RECORDS SUMMARY | 2021-11-29 12:29 | XMS REPORT | Continuity of Care Document ---
:1955 Author Organization [facility] t Address [address] [place] [address] Care Team Providers Name Role Phone Unavailable Unavailable Unavailable Problems This patient has no known problems. Allergies, Adverse Reactions, Alerts Allergy Allergy Status Severity Reaction(s) Onset Inactive Treating Comm ents Source Name Type Date Date Clinician Phenerga Adverse Active Info Not [facility] Available [facility] Medications Ordered Filled Start Stop Current Ordering Indication Dosage Frequency Signature Comments Components Source Medication Medication Date Date Medication? Clinician (SIG) Name Name Neurontin Neurontin Yes Jose Manuel [address] [facility] before [facility] Metoprolol Metoprolol Yes Jose Manuel TAKE ONE [facility] Tartrate Tartrate [facility]um TABLET BY L ukes - MOUTH [facility] TWICE A l DAY. TAKE Outpati WITH ent METOPROLOL Clinics 25MG TO EQUAL TOTAL DOSE OF 75MG TWICE DAILY Remeron Remeron Yes Jose Manuel [address] [facility] at bedtime [facility] Depakote ER Depakote ER Yes Jose Manuel not [facility] defined [facility] Metoprolol Metoprolol Yes Jose Manuel TAKE ONE [facility] Tartrate Tartrate Baum TABLET BY L ukes - MOUTH [facility] TWICE A l DAY. TAKE Outpati WITH ent METOPROLOL Clinics 50MG TO TOTAL DOSE OF 75MG Simvastatin Simvastatin Yes Jose Manuel [address] [facility] in the [facility] Zoloft Zoloft Yes Jose Manuel [...] Clinicians Facility Department ID 2020-06-30 2020-06-30 Outpatient [facility] [id number] [facility]00 [facility] 2019-03-29 2019-03-29 [facility] [id number] 10:30:00 10:30:00 t [employer] [facility] Medicine Outpati ent Clinics 2019-03-24 2019-03-24 [facility] [id number] 09:58:00 09:58:00 t [employer] [facility] Medicine Outpati ent Clinics 2019-03-23 2019-03-23 [facility] [id number] 15:09:00 15:09:00 t [employer] [facility] Medicine Outpati ent Clinics 2018-12-28 2018-12-28 [facility] [id number] [address] 11:15:00 11:15:00 t [employer] [facility] Medicine Outpati ent Clinics 2018-11-04 2018-11-04 [facility] [id number] [facility] 09:30:00 09:30:00 t [employer] [facility] Medicine Outpati ent Clinics 2018-09-30 2018-09-30 [facility] [id number] [address] 10:45:00 10:45:00 t [employer] [facility] Medicine Outpati ent Clinics 2018-06-29 2018-06-29 [facility] [id number] 10[facility]30:00 10:30:00 t [employer] [facility] Medicine Outpati ent Clinics 2018-05-28 2018-05-28 [facility] [id number] 10:26:00 10:26:[address] [place] [address] [facility] - [facility] Medicine l Medicine Outpati ent Clinics 2018-05-10 2018-05-10 [facility] [id number] [address] 13:00:00 13:00:[address] [place] [address] [facility] - Drive [facility] Medicine l Medicine Outpati ent Clinics 2018-05-05 2018-05-05 [facility] [id number] 08:31:00 08:31:[address] [place] [address] [facility] - Drive [facility] Medicine l Medicine Outpati ent Clinics 2018-04-30 2018-04-30 [facility] [id number] 11:09:00 11:09:[address] [place] [address] [facility] - Drive [facility] Medicine l Medicine Outpati ent Clinics 2018-04-15 2018-04-15 [facility] [id number] 16:14:00 16:14:[address] [place] [address] [facility] - Drive [facility] Medicine l Medicine Outpati ent Clinics 2018-04-15 2018-04-15 [facility] [id number] 08:15:00 08:15:[address] [place] [address] [facility] - Drive [facility] Medicine l Medicine Outpati ent Clinics 2018-02-25 2018-02-25 [facility] [id number] 14:45:00 14:45:[address] [place] [address] [facility] - Drive [facility] Medicine l Medicine Outpati ent Clinics 2017-12-09 2017-12-09 [facility] [id number] 08:18:00 08:18:[address] [place] [address] [facility] - Drive [facility] Medicine l Medicine Outpati ent Clinics 2017-12-09 2017-12-09 [facility] [id number] 08:15:00 08:15:00 [place] [address] [facility] - Drive [facility] Medicine l Medicine Outpati ent Clinics 2017-12-09 2017-12-09 [facility] [id number] 08:14:00 08:14:[address] [place] [address] [facility] - Drive [facility] Medicine l Medicine Outpati ent Clinics Results This patient has no known results.
[2021-11-29 14:36] LABS: SARS-COV-2 RT PCR NEGATIVE (NEGATIVE)
--- NOTE | 2021-11-29 16:09 | ER ---
Nurse's Notes [facility] Name: Kavin Armijo Age: 66 yrs Sex: Male : 1955 Arrival Date: 11/29/2021 Time: 12:33 Bed Waiting Private MD: Jose De Paz V Diagnosis: Dehydration Presentation: 11/29 13:32 Chief complaint: Patient states: Direct admit Dr. De Paz for dehydration, weight loss, ll1 and leg pain. Coronavirus screen: Vaccine status: Patient reports receiving the 2nd dose of the covid vaccine. Client denies travel out of the [place] in the last 14 days. At this time, the client does not indicate any symptoms associated with coronavirus-19. Ebola Screen: Patient denies travel to an Ebola-affected area in the 21 days before illness onset. Initial Sepsis Screen: Does the patient meet any 2 criteria? No. Patient's initial sepsis screen is negative. Does the patient have a suspected source of infection? No. Patient's initial sepsis screen is negative. Risk Assessment: Do you want to hurt yourself or someone else? Patient reports no desire to harm self or others. Onset of symptoms is unknown. 13:32 Method Of Arrival: Wheelchair ll1 13:32 Acuity: CHANNING 3 ll1 Historical: - Allergies: 13:31 Phenergan; ll1 - PMHx: 13:31 kidney failure; ll1 - PSHx: 13:31 triple bypass; gall stones removed; ll1 - Immunization history:: Client reports receiving the 2nd dose of the Covid vaccine. - Social history:: Smoking status: Patient reports the use of cigarette tobacco products, smokes one-half pack cigarettes per day. Vital Signs: 13:32 BP 126 / 80; Pulse 57; Resp 17; Temp 97.3; Pulse Ox 99% ; Weight 64.86 kg; Height 5 ft. ll1 7 in. (170.18 cm); Pain 8/10; 13:32 Body Mass Index 22.40 (64.86 kg, 170.18 cm) ll1 ED Course: 12:33 Patient arrived in ED. kz 12:34 Jose De Paz MD is Private Physician. kz 13:31 Arm band placed on. ll1 13:33 Triage completed. ll1 16:08 Jose De Paz MD is Hospitalizing Provider. ll1 Administered Medications: No medications were administered Outcome: 16:08 Decision to Hospitalize by Provider. 1 16:08 Patient left the ED. 1 Signatures: Clem Malone RN RN 1 Carmen Tobias
[2021-11-29 16:12] VITALS: O2SAT 99
[2021-11-29] MEDS ORDERED: AMLODIPINE 10 MG TAB ONE (16:49)
[2021-11-29] MEDS ORDERED: ONDANSETRON 4 MG/2 ML VIAL IV PRN (17:00)
[2021-11-29] MEDS ORDERED: ONDANSETRON 4 MG (ODT) TAB PO PRN (17:00)
[2021-11-29] MEDS ORDERED: NACHLORIDE 0.45% 1,000 ML IV SCH (17:00)
[2021-11-29] MEDS ORDERED: DIPHENHYDRAMINE 25 MG TAB/CAP PO PRN (17:00)
[2021-11-29] MEDS ORDERED: POLYETHYL GLY 3350 17 GM/DOSE PO PRN (17:00)
[2021-11-29] MEDS ORDERED: ACETAMINOPHEN 325 MG TABLET PO PRN (17:00)
[2021-11-29] MEDS ORDERED: LOPERAMIDE HCL 2 MG CAPSULE PO PRN (17:00)
[2021-11-29 17:19] VITALS: BMI 21.7
--- NOTE | 2021-11-29 17:57 | RAD REPORT ---
EXAM DESCRIPTION: CT - Chest Abd Pelvis Wo Con - 11/29/2021 5:45 pm CLINICAL HISTORY: Chest and abdomen pain. weight loss, smoker COMPARISON: Thorax Wo Con dated 06/19/2020; Stone Protocol dated 06/27/2021 TECHNIQUE: Limited noncontrast study was performed. All CT scans are performed using dose optimization technique as appropriate and may include automated exposure control or mA/KV adjustment according to patient size. FINDINGS: The lungs are clear.No pleural or pericardial effusion.No intrathoracic adenopathy. Cholecystectomy. Small cyst is present left liver measuring 13 mm. The spleen, pancreas, adrenal glan ds and right kidney are unremarkable. Hyperdense cyst is noted inferior pole left kidney measuring 2. 9 cm. No bowel obstruction, free air, free fluid or abscess. Nonvisualized appendix. Prominent 12 mm aorto caval lymph node is noted, unchanged since 2020 study. No bulky adenopathy seen elsewhere. Moderate multilevel spondylosis is present of the lumbar spine. Anterior bridging osteophyte is prese nt. Sternotomy wires noted. IMPRESSION: No aggressive process is detected in the chest, abdomen or pelvis.
[2021-11-29 18:24] LABS: Absolute Lymphocytes (CBC) 1.6 K/uL (0.7-4.9); Hematocrit 45.6 % (39.6-49.0); Lymphocytes % 34.2 % (15.3-44.8); MPV 8.2 fL (7.6-11.3); RBC Red Blood Cell Count 4.43 M/uL (4.33-5.43)
[2021-11-29 18:39] LABS: Magnesium 2.4 mg/dL (1.8-2.4); Potassium 4.3 mmol/L (3.5-5.1)
[2021-11-29 18:55] LABS: Albumin 3.6 g/dL (3.4-5.0); Bilirubin Direct 0.2 mg/dL (0-0.2); Bilirubin Total 0.5 mg/dL (0.2-1.0); Phosphorus 4.2 mg/dL (2.5-4.9); Protein, Total 7.3 g/dL (6.4-8.2); Thyroid Stimulating Hormone 2.44 uIU/mL (0.360-3.740)
[2021-11-29 20:19] LABS: Urine Appearance CLEAR (Clear); Urine Bilirubin NEGATIVE (Negative); Urine Blood TRACE (Negative); Urine Color YELLOW (Yellow); Urine Glucose NEGATIVE (Negative); Urine Protein NEGATIVE (Negative); Urine Urobilinogen 0.2 mg/dL (0.2-1.0)
[2021-11-29 20:36] LABS: Urine Bacteria 20-50 /HPF (NONE SEEN)
[2021-11-29] MEDS ORDERED: DIVALPROEX ER 250 MG TAB PO SCH (21:00)
[2021-11-29] MEDS ORDERED: MIRTAZAPINE 15 MG TAB PO SCH (21:00)
[2021-11-29] MEDS ORDERED: ATORVASTATIN 10 MG TAB PO SCH (21:00)
[2021-11-29] MEDS: clonazePAM 1 MG TAB PO SCH (21:08)
[2021-11-30 07:23] LABS: Absolute Lymphocytes (CBC) 1.5 K/uL (0.7-4.9); Hematocrit 41.4 % (39.6-49.0); MPV 7.8 fL (7.6-11.3); RBC Red Blood Cell Count 3.99 M/uL (4.33-5.43)
[2021-11-30] MEDS: clonazePAM 1 MG TAB PO SCH (08:51)
[2021-11-30] MEDS ORDERED: TAMSULOSIN 0.4 MG SR CAP PO SCH (09:00)
[2021-11-30] MEDS ORDERED: CALCITROL 0.25 MCG CAP PO SCH (09:00)
[2021-11-30] MEDS ORDERED: ENOXAPARIN 30 MG/0.3 ML SQ SCH (09:00)
[2021-11-30] MEDS ORDERED: SERTRALINE HCL 100 MG TAB PO SCH (09:00)
[2021-11-30] MEDS ORDERED: ASPIRIN EC 81 MG TAB PO SCH (09:00)
[2021-11-30] MEDS ORDERED: FINASTERIDE 5 MG TAB PO SCH (09:00)
[2021-11-30] MEDS ORDERED: cloNIDine HCL 0.1 MG TAB PO ONE (10:00)
[2021-11-30 12:44] VITALS: BP 128/83; TEMP 97
--- NOTE | 2021-12-02 15:13 | CON ---
Date of Consultation: 11/30/2021 Chief Complaint: Acute on chronic kidney injury. History Of Present Illness: The patient has history of chronic kidney disease stage IV, baseline cre atinine level 3.2 as of March 2021. At that time, GFR was 20. The patient has history of hypertensio n, hyperlipidemia, and coronary artery disease, status post CABG, history of chronic congestive heart failure with diastolic dysfunction, obstructive sleep apnea, bipolar disorder with generalized weakn ess. The patient was found to have volume depletion and was referred to the hospitalist admission fo r acute on chronic kidney injury. Nephrology consultation is requested for acute kidney injury. The patient denies fever or chills. He came to emergency room last evening and was evaluated by ER ruiz vaughn. Nephrology consultation was requested for acute kidney injury. The patient was complaining o f generalized weakness. Review of Systems: General: He denies fever or chills. Eyes: Denies vision changes. Ears, nose, mouth, and throat: There is no sore throat or earache. Respiratory: Denies PND or orthopnea. Cardiovascular: Denies chest pain, palpitation, or syncope. : Denies dysuria, hematuria, incomplete voiding. All other systems reviewed and all are negative. Past Medical History: Chronic kidney disease stage IV, obstructive sleep apnea, bipolar disorder, co ronary artery disease, status post CABG, hyperlipidemia, anxiety, history of acute kidney injury. On previous occasions, he was admitted for acute kidney injury due to volume depletion, , tob acco use, hyperlipidemia, chronic lower back pain, coronary artery disease, prior CABG x3 vessels. Past Surgical History: Knee surgery, cholecystectomy. Family History: Heart disease and myocardial infarction in his mother. Father had pancreatic cancer . Social History: Current everyday smoker. Denies alcohol or illicit drugs. Physical Examination: General: The patient is not in acute distress. Eyes: Anicteric sclerae. EOMI. Ears, Nose, Mouth, and Throat: Oral mucosa moist. No pallor. Neck: Supple. No bruits. Lungs: Diminished breath sounds at bases. Heart: S1 and S2. Abdomen: Soft, benign. Extremities: No edema. Laboratory Data: Hemoglobin is 13.6, WBC 4.1, platelet count 122,000. Chemistry; sodium 137, potass ium 4.6, chloride 105, CO2 of 25, BUN 47, creatinine 5.2, glucose 91, phosphorus 2.4, calcium 9.3. C T scan of the abdomen and pelvis without contrast was done and showed small cyst present in the left and right kidney are unremarkable changes noted inferior pole of left kidney me asuring 2.9 cm. Impression, detected in the chest, abdomen, and pelvis. Impression And Plan: 1.Acute on chronic kidney injury. Recommend IV fluid for hydration. The patient has prerenal azote janett, nonoliguric acute tubular necrosis. Lab work showed microscopic hematuria and CT scan imaging s howed hyperdense lesion in the kidney. The patient needs the Urology followup as soon as possible fo r complex renal cyst. 2.Hypertension. Continue blood pressure medication. 3.Anemia. Monitor hemoglobin level. At this point, the patient does not require transfusion. 4.Acute on chronic kidney injury advancing chronic kidney disease. The patient needs a close follow up with Nephrology. Continue IV fluids and monitor renal panel. 5.Hyperphosphatemia. Continue low-phosphorus diet. Recommend . EB/MODL Voice ID: [id number] Report ID: [id number]
[2021-12-04 10:51] LABS: Vitamin D 1,25-Dihydroxy Total 19 pg/mL (18-72); Vitamin D,1,25-OH2, D2 <8 pg/mL
== END 2021-11-30 14:14 | disposition home or self-care (01) ==
LOC: ER 12:32 → EDSTATUS 12:32 → ERHOLD 12:35 → 2ND 15:55
PROVIDERS: ADMIT Internal Medicine; ATTEND Internal Medicine
DX: I13.0 Hypertensive heart and chronic kidney disease with heart failure and stage 1 through stage 4 chronic kidney disease, or unspecified chronic kidney disease (principal); N17.0 Acute kidney failure with tubular necrosis; N18.4 Chronic kidney disease, stage 4 (severe); I50.32 Chronic diastolic (congestive) heart failure; D64.9 Anemia, unspecified; E83.39 Other disorders of phosphorus metabolism; I25.10 Atherosclerotic heart disease of native coronary artery without angina pectoris; Z95.1 Presence of aortocoronary bypass graft; Z20.822 Contact with and (suspected) exposure to COVID-19
CPT/HCPCS: 87088; 85025 ×2; 81001; 87086; 80048; 36415 ×2; 83735 ×2; 84100; 80076; 85730; 82652; 84443; 82607; 0240U; 71250; 74176; 97116; 97161; 99281; J1650; G0379; G0378 ×2

== ENCOUNTER 2021-11-30 15:25 | Observation (INO) | payer OTHER ==
--- OUTSIDE RECORDS SUMMARY | 2021-11-30 15:28 | XMS REPORT | Continuity of Care Document ---
:1955 Author Organization [facility] t Address [address] [place] [address] Care Team Providers Name Role Phone Unavailable Unavailable Unavailable Problems This patient has no known problems. Allergies, Adverse Reactions, Alerts Allergy Allergy Status Severity Reaction(s) Onset Inactive Treating Comm ents Source Name Type Date Date Clinician Phenerga Adverse Active Info Not [facility] Reaction Available [facility] Medications Ordered Filled Start Stop Current Ordering Indication Dosage Frequency Signature Comments Components Source Medication Medication Date Date Medication? Clinician (SIG) Name Name Neurontin Neurontin Yes Jose Manuel [address] [facility] before [facility] Metoprolol Metoprolol Yes Jose Manuel TAKE ONE [facility] Tartrate Tartrate [facility]um TABLET BY L ukes - MOUTH [facility] TWICE A l DAY. TAKE Outpati WITH ent METOPROLOL Clinics 25MG TO EQUAL TOTAL DOSE OF 75MG TWICE DAILY Remeron Remeron Yes Jose Manuel [address] [facility] at bedtime [facility] Depakote ER Depakote ER Yes Jose Manuel not [facility] defined [facility] Metoprolol Metoprolol Yes Jose Manuel TAKE ONE [facility] Tartrate Tartrate Baum TABLET BY L ukes - MOUTH [facility] TWICE A l DAY. TAKE Outpati WITH ent METOPROLOL Clinics 50MG TO TOTAL DOSE OF 75MG Simvastatin Simvastatin Yes Jose Manuel [address] [facility] the [facility] Zoloft Zoloft Yes Jose [...] Clinicians Facility Department ID 2020-06-30 2020-06-[address] [facility] [id number] [facility] 2019-03-29 2019-03-29 [facility] [id number] [facility] 10:30:00 10:30:[address] [facility] Medicine Outpati ent Clinics 2019-03-24 2019-03-24 [facility] [id number] 09:58:00 09:58:[address] [facility] Medicine Outpati ent Clinics 2019-03-23 2019-03-23 [facility] [id number] 15:09:00 15:09:[address] [facility] Medicine Outpati ent Clinics 2018-12-28 2018-12-28 [facility] [id number] 11:15:00 11:15:[address] [facility] Medicine Outpati ent Clinics 2018-11-04 2018-11-04 [facility] [id number] 09:30:00 09:30:[address] [facility] Medicine Outpati ent Clinics 2018-09-30 2018-09-30 [facility] [id number] 10:45:00 10:45:[address] [facility] Medicine Outpati ent Clinics 2018-06-29 2018-06-29 [facility] [id number] 10:30:00 10:30:[address] [facility] Medicine Outpati ent Clinics 2018-05-28 2018-05-28 [facility] [id number] 10:26:00 10:26:[address] [facility] - Drive [facility] Medicine l Medicine Outpati ent Clinics 2018-05-10 2018-05-10 [facility] [id number] [facility] 13:00:00 13:00:[address] [facility] - Drive [facility] Medicine l Medicine Outpati ent Clinics 2018-05-05 2018-05-05 [facility] [id number] 08:31:00 08:31:[address] [facility] - Drive [facility] Medicine l Medicine Outpati ent Clinics 2018-04-30 2018-04-30 [facility] [id number] 11:09:00 11:09:[address] [facility] - Drive [facility] Medicine l Medicine Outpati ent Clinics 2018-04-15 2018-04-15 [facility] [id number] 16:14:00 16:14:[address] [facility] - Drive [facility] Medicine l Medicine Outpati ent Clinics 2018-04-15 2018-04-15 [facility] [id number] 08:15:00 08:15:[address] [facility] - Drive [facility] Medicine l Medicine Outpati ent Clinics 2018-02-25 2018-02-25 [facility] [id number] 14:45:00 14:45:[address] [facility] - Drive [facility] Medicine l Medicine Outpati ent Clinics 2017-12-09 2017-12-09 [facility] [id number] 08:18:00 08:18:[address] [facility] - Drive [facility] Medicine l Medicine Outpati ent Clinics 2017-12-09 2017-12-09 [facility] [id number] 08:15:00 08:15:[address] [facility] - Drive [facility] Medicine l Medicine Outpati ent Clinics 2017-12-09 2017-12-09 [facility] [id number] 08:14:00 08:14:[address] [facility] - Drive [facility] Medicine l Medicine Outpati ent Clinics Results This patient has no known results.
--- NOTE | 2021-11-30 17:50 | RAD REPORT ---
EXAM DESCRIPTION: CT - Head Brain Wo Cont - 11/30/2021 5:42 pm CLINICAL HISTORY: WEAKNESS COMPARISON: <Comparisons> TECHNIQUE: All CT scans are performed using dose optimization technique as appropriate and may inclu de automated exposure control or mA/KV adjustment according to patient size. FINDINGS: No intracranial hemorrhage, hydrocephalus or extra-axial fluid collection.No areas of brai n edema or evidence of midline shift. Mild chronic small vessel ischemic changes. Remote right zamora radiata infarct. The paranasal sinuses and mastoids are clear. The calvarium is intact. IMPRESSION: No acute intracranial abnormality.
--- NOTE | 2021-11-30 17:54 | RAD REPORT ---
EXAM DESCRIPTION: CT - Spine Lumbar Wo Con - 11/30/2021 5:43 pm CLINICAL HISTORY: Radiculopathy. General weakness COMPARISON: LUMBAR SPINE W O CONTRAST dated 05/10/2012; Head Brain Wo Cont dated 11/30/2021; Chest Abd Pelvis Wo Con dated 11/29/2021 TECHNIQUE: Axial noncontrast CT imaging of the lumbar spine was performed with coronal and sagittal re-formatted images. All CT scans are performed using dose optimization technique as appropriate and may include automated exposure control or mA/KV adjustment according to patient size. FINDINGS: No acute lumbar spine fracture seen. Grade 1 anterolisthesis of L5 on S1 with pars defects . Paraspinal tissues are normal in thickness. No paraspinal abscess or hematoma seen. Multilevel degenerative disc disease is noted. This to be better assessed with MRI. There is evidence of neural foraminal narrowing in particular at the right L5-S1 neural foramen. Diffuse idiopathic sk eletal hyperostosis is present with multiple levels of bridging osteophytes. . Aortic atherosclerosis . Dependent atelectasis. Cholecystectomy. IMPRESSION: No acute fracture of the lumbar spine is identified.
--- NOTE | 2021-11-30 18:07 | RAD REPORT ---
EXAM DESCRIPTION: RAD - Chest Single View - 11/30/2021 6:01 pm CLINICAL HISTORY: generalized weakness COMPARISON: Chest Single View dated 06/27/2021; Chest Single View dated 06/23/2021; Chest Pa And Lat (2 Views) dated 06/05/2021; Chest Pa And Lat (2 Views) dated 03/25/2021 FINDINGS: Lines: None. Lungs: No evidence of edema or pneumonia. Pleural: No significant pleural effusions or pneumothorax. Cardiac: The heart size is within normal limits. Bones: No acute fractures. Other: Sternotomy IMPRESSION: No acute cardiopulmonary disease.
[2021-11-30 18:25] LABS: Absolute Lymphocytes (CBC) 1.5 K/uL (0.7-4.9); Hematocrit 44.6 % (39.6-49.0); Lymphocytes % 33.6 % (15.3-44.8); RBC Red Blood Cell Count 4.37 M/uL (4.33-5.43)
[2021-11-30 18:34] LABS: Potassium 4.1 mmol/L (3.5-5.1)
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
[2021-12-01] MEDS: NACHLORIDE 0.45% 1,000 ML IV SCH (08:00)
[2021-12-01] MEDS ORDERED: NACHLORIDE 0.45% 1,000 ML IV ONE (08:23)
[2021-12-01 08:27] VITALS: BMI 21.1
[2021-12-01] MEDS ORDERED: ACETAMINOPHEN 500 MG TAB ONE (08:42)
[2021-12-01] MEDS: ACETAMINOPHEN 500 MG TAB PO PRN (08:43)
--- NOTE | 2021-12-01 15:28 | P.HP ---
Certification for Inpatient Patient admitted to: Observation With expected LOS: <2 Midnights Practitioner: I am a practitioner with admitting privileges, knowledge of patient current condition, hospital course, and medical plan of care. Services: Services provided to patient in accordance with Admission requirements found in Title 42 Section 412.3 of the Code of Federal Regulations Patient History Date of Service: 12/01/21 Reason for admission: [place] [facility] [place] History of Present Illness: MR. MENDEZ WAS SENT HOME IN STABLE CONDITION. HE IS GENERALLY WEAK BUT DOES NOT MEET INPATIENT CRITERIA. HIS BACK HAS BEEN HURTING FOR YEARS AND HE TAKES TYLENOL TO CONTROL. HE HAS CHRONIC DEPRESSION AND BIPLOLAR DISEASE. HIM AND HIS DO NOT GET ALONG. HE DROVE TO [facility] AFTER DISCHARGE. I HAD INSTRUCTED HIM NOT TO DRIVE AND NURSE WAS AWARE. HE STILL DROVE HIMSELF AND HE USED GAS PADDLE INSTEAD OF BREAK AND RAN INTO AN ICE BOX. HE IS BACK IN ER WITH NO ACUTE CHANGES IN HIS CONDITION. I ASKED JEWEL TO DO CARDIAC WORK UP THAT WAS NEGATIVE AND ASKED FOR CT BRAIN THAT IS NEGATIVE. CT SPINE SHOWS ARTHRITIS THAT IS KNOWN TO US. HIS SAYS HE IS CONFUSED BUT I CHECKED HIM AND HIS ORIENTATION WAS PERFECT TO TIME, PLACE AND PERSON. Allergies chlorpromazine HCl [From Thorazine] Allergy (Severe, Verified 03/25/21 14:55) Anaphylaxis promethazine HCl [From Phenergan] Allergy (Severe, Verified 03/25/21 14:55) Anaphylaxis Home Medications: Aspirin [Ecotrin 81 MG] 81 mg PO DAILY 06/19/20 Atorvastatin Calcium 10 mg PO BEDTIME 06/19/20 Divalproex ER [Depakote *ER] 500 mg PO BEDTIME 06/19/20 Mirtazapine 7.5 mg PO BEDTIME 06/19/20 Sertraline [Zoloft*] 100 mg PO DAILY 06/19/20 calcitrioL [Rocaltrol] 0.25 mcg PO DAILY 06/19/20 clonazePAM [Klonopin] 1 mg PO TID 06/19/20 Finasteride [Proscar*] 5 mg PO DAILY 11/29/21 Tamsulosin [Flomax*] 1 cap PO DAILY 11/29/21 Gabapentin [Neurontin*] 100 mg PO TID #90 cap 11/30/21 dexAMETHasone [Decadron*] 4 mg PO BID #10 tab 11/30/21 - Past Medical/Surgical History Diabetic: No -: Obstructive sleep apnea -: Chronic renal disease, stage IV -: CAD with prior CABG x3 vessel -: Bipolar disorder -: Chronic pain-lower back -: Hypertension -: Hyperlipidemia -: Insomnia -: History of dvt right calf (knee fracture) -: Colon polyps -: GERD with ulcers -: Tobacco abuse -: CABG x3 vessel -: cholecystectomy -: triple bypass -: knee surgery Psychosocial/ Personal History: Patient is - Family History Mother -: Heart disease Notes: polycythemia, [place] Father -: Other (see notes) Notes: pancreatic cancer - Social History Alcohol use: No CD- Drugs: No Caffeine use: No Review of Systems 10-point ROS is otherwise unremarkable Physical Examination - Vital Signs Temperature: 97.8 F Blood Pressure: 162/77 Pulse: 72 Respirations: 16 Pulse Ox (%): 100 - Physical Exam General: Alert, In no apparent distress HEENT: Atraumatic, PERRLA, Mucous membr. moist/pink, EOMI, Sclerae nonicteric Neck: Supple, 2+ carotid pulse no bruit, No LAD, Without JVD or thyroid abnormality Respiratory: Clear to auscultation bilaterally, Normal air movement Cardiovascular: Regular rate/rhythm, Normal S1 S2 Gastrointestinal: Normal bowel sounds, No tenderness Musculoskeletal: No tenderness Integumentary: No rashes Neurological: Normal gait, Normal speech, Normal strength at 5/5 x4 extr, Normal tone, Normal affect Lymphatics: No axilla or inguinal lymphadenopathy - Studies Laboratory Data (last 24 hrs) 11/30/21 18:05: WBC 4.40, Hgb 14.6, Hct 44.6, Plt Count 128 L 11/30/21 18:05: Sodium 138, Potassium 4.1, BUN 44 H, Creatinine 4.19 H D, Glucose 83 Assessment and Plan - Problems (Diagnosis) (1) Chronic renal failure Current Visit: Yes Status: Acute Plan: THIS IS WELL KNOWN. HE DOES NOT HAVE MUCH CHANGES THAN BEFORE. HE ALREADY GOES TO DR. ARORA. Qualifiers: Chronic kidney disease stage: stage 4 (severe) Qualified Code(s): N18.4 - Chronic kidney disease, stage 4 (severe) (2) Fatigue Current Visit: Yes Status: Chronic Plan: HE HAS LOTS OF PSYCH ISSUES. HE GOES TO [facility]. I WILL CHECK ON B12, TSH, TESTOSTERONE ETC. I SEE NO REAL REASON FOR HIS FATIGUE OR UNSTEADINESS. I HAVE ASKED DR. QIULES TO SEE HIM WHO WILL COME TOMORROW. CONTINUE GENTLE HYDRATION. PT CONSULT. REHAB IF CAN. - Advance Directives Does patient have a Living Will: No Does patient have a Durable POA for Healthcare: No
[2021-12-01 17:46] LABS: C-Reactive Protein < 2.90 mg/L (<3.00)
[2021-12-01] MEDS: cloNIDine HCL 0.1 MG TAB PO SCH (20:29)
--- NOTE | 2021-12-02 01:28 | PN ---
Date of Progress Note: 12/01/2021 Chief Complaint: Acute on chronic acute kidney injury, volume depletion. Subjective: The patient was found to have nonoliguric urine output. The patient is on IV fluids. R enal function has improved over the last 24 hours. The patient has advanced chronic kidney disease, previous admission for acute kidney injury. The patient was discharged home today, although he came back to the emergency room because of generalized weakness. He has chronic pain and is taking Tyleno l. Review of Systems: Denies fever or chills. Objective: Lungs: Clear to auscultation bilaterally. Heart: S1 and S2. Abdomen: Soft, benign. Extremities: No edema. Impression And Plan: 1.Acute on chronic kidney injury, nonoliguric, secondary to prerenal azotemia and nonoliguric urine output. The patient had a lab work done today and creatinine tiesha to 4.19 and GFR is today 14. Elec trolytes are stable. Continue mild hydration. 2.Hypertension. Hold diuretics at this time. The patient has mild volume depletion. 3.Benign nephrosclerosis, chronic kidney disease. Continue to monitor electrolytes and lipid panel. 4.History of status post fall. Workup per primary team. EB/MODL Voice ID: [id number] Report ID: [id number]
[2021-12-02] MEDS: NACHLORIDE 0.45% 1,000 ML IV SCH ×2 (01:31→16:46)
[2021-12-02] MEDS: ACETAMINOPHEN 500 MG TAB PO PRN (04:04)
[2021-12-02 05:54] LABS: Absolute Lymphocytes (CBC) 1.3 K/uL (0.7-4.9); Hematocrit 42.1 % (39.6-49.0); Lymphocytes % 10.9 % (15.3-44.8); MPV 8.4 fL (7.6-11.3)
[2021-12-02 06:08] LABS: Potassium 4.3 mmol/L (3.5-5.1)
[2021-12-02] MEDS: cloNIDine HCL 0.1 MG TAB PO SCH ×3 (10:24→21:26)
--- NOTE | 2021-12-02 11:45 | RAD REPORT ---
EXAM DESCRIPTION: MRI - Brain Wo Cont - 12/02/2021 10:20 am CLINICAL HISTORY: Alteration of consciousness/ COMPARISON: 2020 TECHNIQUE: Axial, sagittal, and coronal magnetic resonance images of the brain were obtained. FINDINGS: Mild signal within periventricular, deep and subcortical white matter probably ischemic c hanges secondary to small vessel disease Small areas of abnormal signal ganglia probably old lacunar infarctions. Small old right periventricu lar infarct. Diffusion-weighted/ADC mapping does not reveal evidence of acute infarction. The ventricles are normal caliber. An extra-axial fluid collection is not noted. Fluid within the sinuses/mastoids is not seen IMPRESSION: No acute intracranial abnormality noted
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
[2021-12-02] MEDS: ENSURE ENLIVE 237 ML CAN PO SCH (21:00)
[2021-12-03] MEDS: ACETAMINOPHEN 500 MG TAB PO PRN (01:45)
[2021-12-03 05:35] LABS: Absolute Lymphocytes (CBC) 2.2 K/uL (0.7-4.9); Hematocrit 37.8 % (39.6-49.0); Lymphocytes % 23.9 % (15.3-44.8); RBC Red Blood Cell Count 3.67 M/uL (4.33-5.43)
[2021-12-03 05:54] LABS: Potassium 4.4 mmol/L (3.5-5.1)
[2021-12-03] MEDS: NACHLORIDE 0.45% 1,000 ML IV SCH ×2 (06:48)
--- NOTE | 2021-12-03 07:55 | P.PN ---
Subjective Date of Service: 12/03/21 Chief Complaint: LOT BETTER Physical Examination - Vital Signs Temperature: 97.8 F Blood Pressure: 111/67 Pulse: 54 Respirations: 18 Pulse Ox (%): 95 - Studies Medications List Reviewed: Yes Assessment And Plan - Plan 1. Acute on chronic kidney injury, nonoliguric, secondary to prerenal azotemia and nonoliguric urine output. The patient had a lab work done today and creatinine tiesha to 4.19 and GFR is today 14. Electrolytes are stable. Continue mild hydration. 2. Hypertension. Hold diuretics at this time. The patient has mild volume depletion. 3. Benign nephrosclerosis, chronic kidney disease. Continue to monitor electrolytes and lipid panel. 4. History of status post fall. Workup per primary team.
[2021-12-03 07:57] LABS: Anisocytosis 1+; Blood Morphology Comment NOTED (NOT SEEN); Macrocytosis 1+; Platelet Estimate DECR; White Blood Cell Scan OK (OK)
[2021-12-03 08:03] VITALS: TEMP 97.2
[2021-12-03] MEDS: ENSURE ENLIVE 237 ML CAN PO SCH (09:00)
[2021-12-03] MEDS ORDERED: GABAPENTIN 100 MG CAP PO SCH (09:00)
[2021-12-03] MEDS ORDERED: buPROPion HCL 100 MG TAB PO SCH (09:00)
[2021-12-03] MEDS ORDERED: SERTRALINE HCL 100 MG TAB PO SCH (09:00)
[2021-12-03] MEDS ORDERED: FINASTERIDE 5 MG TAB PO SCH (09:00)
[2021-12-03] MEDS ORDERED: cloNIDine HCL 0.1 MG TAB PO SCH (09:00)
[2021-12-03] MEDS ORDERED: TAMSULOSIN 0.4 MG SR CAP PO SCH (09:00)
[2021-12-03] MEDS ORDERED: ASPIRIN EC 81 MG TAB PO SCH (09:00)
[2021-12-03] MEDS ORDERED: CALCITROL 0.25 MCG CAP PO SCH (09:00)
[2021-12-03 12:02] VITALS: BP 98/64
[2021-12-03 12:11] VITALS: O2SAT 98
--- NOTE | 2021-12-03 12:14 | EEG ---
CHART: [id number] TEST ID#: [id number] DATE OF STUDY: 12/02/2021 THE EEG WAS RECORDED PORTBALE IN THE PATIENT'S ROOM ON A 17 CHANNEL MACHINE. ELECTRODES WERE APPLIED IN THE USUAL MANNER USING THE INTERNATIONAL 10-20 SYSTEM. THE WAKING BACKGROUND RHYTHM IN THIS RECORD CONSISTS OF FAIRLY WELL DEVELOPED AND FAIRLY WELL ORGANIZED WAVES OF 9 HZ., MAXIMAL IN THE POSTERIOR HEAD REGIONS WHICH ATTENUATE NORMALLY WITH EYE OPENING. LOW-VOLTAGE 18-22 HZ ACTIVITY IS EXPRESSED IN THE FRONTAL REGIONS. LOW TO MODERATE VOLTAGE 3-4 HZ ACTIVITY IS OCCASIONALLY EXPRESSED IN THE FRONTAL REGIONS. THERE ARE NO FOCAL OR LATERALIZING FEATURES. NO EPILEPTIFORM ACTIVITY APPEARS. SLEEP NOT PERFORMED. HYPERVENTILATION WAS NOT PERFORMED. PHOTIC STIMULATION PRODUCED NO DRIVING BILATERALLY. IMPRESSION: THIS IS A MILDLY ABNORMAL EEG DUE TO A MILDLY SLOW BACKGROUND. THIS IS A NON-SPECIFIC FINDING INDICATING THE PRESENCE OF A MILD DIFFUSE DISTURBANCE IN CEREBRAL FUNCTION. THERE IS NO FOCAL, LATERALIZING OR EPILEPTIFORM ACTIVITY RECORDED DURING THIS STUDY.
--- NOTE | 2021-12-03 12:19 | PN ---
Date of Progress Note: 12/02/2021 Chief Complaint: Acute on chronic kidney injury, volume depletion, nonoliguric ATN. Subjective: The patient was found to have nonoliguric urine output and elevated BUN and creatinine. He has chronic kidney disease stage 4. Developed acute on chronic kidney injury. The patient was s tarted on IV fluids. The patient has advanced chronic kidney disease due to benign nephrosclerosis. The patient primarily was admitted and subsequently discharged home, although he came to the emergen cy room because of generalized weakness and IV fluids were initiated. Review of Systems: Denies fever or chills. Physical Examination: Lungs: Clear to auscultation bilaterally. Heart: S1 and S2. Abdomen: Soft, benign. Extremities: No edema. Impression And Plan: 1.Acute on chronic kidney injury, nonoliguric, secondary to prerenal azotemia. The patient is respo nding to IV fluids. Serum creatinine has improved over the last 24 hours. Continue IV fluids and av oid nephrotoxic medication. 2.Hypertension. Hold diuretics at this point and continue IV fluids. Continue blood pressure medic ation. 3.Benign nephrosclerosis, chronic kidney disease stage 4. Monitor electrolytes and check lipid panel. 4.History of fall. Workup per primary team. EB/MODL Voice ID: [id number] Report ID: [id number]
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
[2021-12-03] MEDS ORDERED: DIVALPROEX ER 250 MG TAB PO SCH (21:00)
[2021-12-03] MEDS ORDERED: MIRTAZAPINE 15 MG TAB PO SCH (21:00)
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
== END 2021-12-03 12:00 | disposition home or self-care (01) ==
LOC: ER 15:25 → ERHOLD 20:42 → INTOOBSV 20:42 → 2ND 12-01 16:28
PROVIDERS: ADMIT Internal Medicine; ATTEND Internal Medicine
DX: N17.9 Acute kidney failure, unspecified (principal); I12.9 Hypertensive chronic kidney disease with stage 1 through stage 4 chronic kidney disease, or unspecified chronic kidney disease; N18.4 Chronic kidney disease, stage 4 (severe); E86.9 Volume depletion, unspecified; R53.83 Other fatigue; R53.81 Other malaise; F31.9 Bipolar disorder, unspecified; I25.10 Atherosclerotic heart disease of native coronary artery without angina pectoris; Z95.1 Presence of aortocoronary bypass graft; Z20.822 Contact with and (suspected) exposure to COVID-19
CPT/HCPCS: 95816; 85025 ×3; 80048 ×3; 36415 ×3; 85652; 84443; 84484; 82607; 84403; 86140; 72131; 70450; 71045; 70551; 97116 ×2; 97161; 97530 ×2; 99285; U0003; G0378 ×5

== ENCOUNTER 2021-12-15 08:44 | Emergency (ER) | payer OTHER ==
--- OUTSIDE RECORDS SUMMARY | 2021-12-15 08:47 | XMS REPORT | Continuity of Care Document ---
:1955 Author Organization [facility] t Address [address] [place] [address] Care Team Providers Name Role Phone Unavailable Unavailable Unavailable Problems This patient has no known problems. Allergies, Adverse Reactions, Alerts Allergy Allergy Status Severity Reaction(s) Onset Inactive Treating Comm ents Source Name Type Date Date Clinician Phenerga Adverse Active Info Not [facility] Medications Ordered Filled Start Stop Current Ordering Indication Dosage Frequency Signature Comments Components Source Medication Medication Date Date Medication? Clinician (SIG) Name Name Neurontin Neurontin Yes Jose Manuel [address] [facility] before [facility] Metoprolol Metoprolol Yes Jose Manuel TAKE ONE [facility] Tartrate Tartrate [facility] TABLET BY L ukes - MOUTH [facility] TWICE A l DAY. TAKE Outpati WITH ent METOPROLOL Clinics 25MG TO EQUAL TOTAL DOSE OF 75MG TWICE DAILY Remeron Remeron Yes Jose Manuel [address] [facility] at bedtime [facility] Depakote ER Depakote ER Yes Jose Manuel not [facility] defined [facility] Metoprolol Metoprolol Yes Jose Manuel TAKE ONE [facility] Tartrate Tartrate [facility]um TABLET BY L ukes - MOUTH [facility] TWICE A l DAY. TAKE Outpati WITH ent METOPROLOL Clinics 50MG TO TOTAL DOSE OF 75MG Simvastatin Simvastatin Yes Jose Manuel [address] [facility] in the [facility] Zoloft Zoloft Yes Jose [...] Facility Department ID 2020-06-30 2020-06-30 Outpatient [facility] [id number] [facility] 2019-03-29 2019-03-29 [facility] [id number] [facility] 10:30[facility]00 10:30:00 [facility] Outpat[facility] Clin[facility] 2019-03-24 2019-03-24 [facility] [id number] [address] 09:58:00 09:58:00 [facility] Out[facility] Clin[facility] 2019-03-23 2019-03-23 [facility] [id number] [facility] 15:09:00 15:09:00 [facility] Out[facility] Clin[facility] 2018-12-28 2018-12-28 [facility] [id number] [facility] 11:15:00 11:15:00 t [facility] Outpat[facility] ent Clinics 2018-11-04 2018-11-04 [facility] [id number] [facility] 09[facility]30:00 09:30:00 t [facility] Outpat[facility] Clin[facility] 2018-09-30 2018-09-30 [facility] [id number] [facility] 10[facility]45:00 10:45:00 t [facility] Outpati ent Clinics 2018-06-29 2018-06-29 [facility] [id number] [facility] 10:30:00 10:30:00 t [facility] Outpat[facility] ent Clinics 2018-05-28 2018-05-28 [facility] [id number] 10[facility]26:00 10:26:[place] [address] [facility] - Drive [facility] l Medicine Outpati ent Clinics 2018-05-10 2018-05-10 [facility] [id number] [address] 13:00:00 13:00:00 [place] [address] [facility] - Drive [facility] Medicine l Medicine Outpati ent Clinics 2018-05-05 2018-05-05 [facility] [id number] 08:31:00 08:31:00 [place] [address] [facility] - Drive [facility] Medicine l Medicine Outpati ent Clinics 2018-04-30 2018-04-30 [facility] [id number] 11:09:00 11:09:00 [place] [address] [facility] - Drive [facility] Medicine l Medicine Outpati ent Clinics 2018-04-15 2018-04-15 [facility] [id number] [address] 16:14:00 16:14:00 [place] [address] [facility] - Drive [facility] Medicine l Medicine Outpati ent Clinics 2018-04-15 2018-04-15 [facility] [id number] [address] 08:15:00 08:15:00 [place] [address] [facility] - Drive [facility] Medicine l Medicine Outpati ent Clinics 2018-02-25 2018-02-25 [facility] [id number] 14:45:00 14:45:00 [place] [address] [facility] - Drive [facility] Medicine l Medicine Outpati ent Clinics 2017-12-09 2017-12-09 [facility] [id number] 08:18:00 08:18:00 [place] [address] Luke [facility] - Drive [facility] Medicine l Medicine Outpati ent Clinics 2017-12-09 2017-12-09 [facility] [id number] 08:15:00 08:15:00 [place] [address] Luke [facility] - Drive [facility] Medicine l Medicine Outpati ent Clinics 2017-12-09 2017-12-09 [facility] [id number] 08:14:00 08:14:00 [place] [address] [facility] - Drive [facility] Medicine l Medicine Outpati ent Clinics Results This patient has no known results.
--- NOTE | 2021-12-15 11:03 | RAD REPORT ---
EXAM DESCRIPTION: CT - Head Brain Wo Cont - 12/15/2021 9:57 am CLINICAL HISTORY: Dizziness;Headache;Pain;Trauma Trauma, head injury COMPARISON: Head Brain Wo Cont dated 11/30/2021; Head Brain Wo Cont dated 06/27/2021 TECHNIQUE: All CT scans are performed using dose optimization technique as appropriate and may inclu de automated exposure control or mA/KV adjustment according to patient size. FINDINGS: No intracranial hemorrhage, hydrocephalus or extra-axial fluid collection.Moderate brain a trophy is noted.No areas of brain edema or evidence of midline shift. The paranasal sinuses and mastoids are clear. The calvarium is intact. IMPRESSION: No acute intracranial abnormality.
--- NOTE | 2021-12-15 11:08 | EDPHYS ---
Physician Documentation [facility] Name: Kavin Armijo Age: 66 yrs Sex: Male : 1955 Arrival Date: 12/15/2021 Time: 08:45 Bed 17 Private MD: Jose De Paz V ED Physician Ebenezer Bautista HPI: 12/15 11:05 This 66 yrs old Male presents to ER via Wheelchair with complaints of Fall Injury, kb Dizziness, Headache. 11:05 Details of fall: The patient fell from an upright position, while walking. Onset: The kb symptoms/episode began/occurred this morning. Associated injuries: The patient sustained injury to the head, abrasion, pain. Severity of symptoms: At their worst the symptoms were mild, moderate, in the emergency department the symptoms are unchanged. The patient has not experienced similar symptoms in the past. The patient has not recently seen a physician. Pt reports he tripped and fell when walking out of his front door. States he landed face first in the grass. Denies loc. Reports headache and dizziness right afterwards, still has pain where abrasions are on forehead and nose. Historical: - Allergies: 08:57 Phenergan; jl7 - PMHx: 08:57 kidney failure; jl7 - PSHx: 08:57 gall stones removed; triple bypass; jl7 - Immunization history: Last tetanus immunization: unknown. - Social history:: Smoking status: unknown. ROS: 11:04 Constitutional: Negative for fever, chills, and weight loss. kb 11:04 Skin: Positive for abrasion(s), of the forehead and nose. 11:04 Neuro: Positive for dizziness, headache. 11:04 All other systems are negative. Exam: 11:05 Constitutional: This is a well developed, well nourished patient who is awake, alert, kb and in no acute distress. Head/Face: Normocephalic, atraumatic. Eyes: Pupils equal round and reactive to light, extra-ocular motions intact. Lids and lashes normal. Conjunctiva and sclera are non-icteric and not injected. Cornea within normal limits. Periorbital areas with no swelling, redness, or edema. ENT: Moist Mucous membranes Cardiovascular: Regular rate and rhythm with a normal S1 and S2. No gallops, murmurs, or rubs. No pulse deficits. Respiratory: Respirations even and unlabored. No increased work of breathing. Talking in full sentences MS/ Extremity: Pulses equal, no cyanosis. Neurovascular intact. Full, normal range of motion. Neuro: Awake and alert, GCS 15, oriented to person, place, time, and situation. Moves all extremities. Normal gait. Psych: Awake, alert, with orientation to person, place and time. Behavior, mood, and affect are within normal limits. 11:05 Skin: injury, abrasion(s), small abrasion noted, moderate sized abrasion noted, of the nose and forehead. Vital Signs: 08:57 BP 119 / 75; Pulse 66; Resp 16; Temp 98.4(TE); Pulse Ox 100% on R/A; Weight 65.77 kg; jl7 Height 5 ft. 7 in. (170.18 cm); Pain 7/10; 11:50 Pulse 65; Resp 17 S; Pulse Ox 100% on R/A; jd3 08:57 Body Mass Index 22.71 (65.77 kg, 170.18 cm) jl7 [place] Coma Score: 08:57 Eye Response: spontaneous(4). Verbal Response: oriented(5). Motor Response: obeys jl7 commands(6). Total: 15. 11:50 Eye Response: spontaneous(4). Verbal Response: oriented(5). Motor Response: obeys jd3 commands(6). Total: 15. Trauma Score (Adult): 08:57 Eye Response: spontaneous(1); Verbal Response: oriented(1); Motor Response: obeys jl7 commands(2); Systolic BP: > 89 mm Hg(4); Respiratory Rate: 10 to 29 per min(4); [place] Score: 15; Trauma Score: 12 11:50 Eye Response: spontaneous(1); Verbal Response: oriented(1); Motor Response: obeys jd3 commands(2); Systolic BP: > 89 mm Hg(4); Respiratory Rate: 10 to 29 per min(4); [place] Score: 15; Trauma Score: 12 MDM: 08:51 Patient medically screened. feli 11:04 Data reviewed: vital signs, nurses notes. Data interpreted: Pulse oximetry: on room air kb is 100 %. Interpretation: normal. Counseling: I had a detailed discussion with the patient and/or guardian regarding: the historical points, exam findings, and any diagnostic results supporting the discharge/admit diagnosis, radiology results, the need for outpatient follow up, a family practitioner, to return to the emergency department if symptoms worsen or persist or if there are any questions or concerns that arise at home. 12/15 08:52 Order name: CT Head Brain wo Cont; Complete Time: 11:03 kb Administered Medications: 11:37 Drug: Tetanus-Diphtheria Toxoid Adult 0.5 ml {[employer] [place]: [employer]. Exp: jd3 02/01/2023. Lot #: [id number]. } Route: IM; Site: right deltoid; 11:52 Follow up: Response: No adverse reaction jd3 11:37 Drug: Tylenol 650 mg Route: PO; jd3 11:52 Follow up: Response: No adverse reaction jd3 Disposition: 14:51 Co-signature as Attending Physician, Ebenezer Bautista MD. rn Disposition Summary: 12/15/21 11:08 Discharge Ordered Location: Home kb Condition: Stable kb Diagnosis - Fall on same level from slipping, tripping and stumbling without subsequent kb striking against object - Abrasion of nose kb - Unspecified injury of head, initial encounter kb Followup: kb - With: Emergency Department - When: As needed - Reason: Worsening of condition Followup: kb - With: Private Physician - When: 2 - 3 days - Reason: Recheck today's complaints, Continuance of care, Re-evaluation by your physician Discharge Instructions: - Discharge Summary Sheet kb - Abrasion, [id number] kb - Head Injury, Adult, [id number] kb Forms: - Medication Reconciliation Form kb - Thank You Letter kb - Antibiotic Education kb - Prescription Opioid Use kb Signatures: Dispatcher [employer] EDJael Billingsley, SET AND EXHIBIT DESIGNER-C JUAN DAVID-Ebenezer Young MD MD rn Leal, Jahala RN RN jl7 Dereck Mckeon RN RN jd3
--- NOTE | 2021-12-15 11:08 | ER ---
Nurse's Notes [facility] Name: Kavin Armijo Age: 66 yrs Sex: Male : 1955 Arrival Date: 12/15/2021 Time: 08:45 Bed 17 Private MD: Jose De Paz V Diagnosis: Fall on same level from slipping, tripping and stumbling without subsequent striking against object;Abrasion of nose;Unspecified injury of head, initial encounter Presentation: 12/15 08:55 Chief complaint: Patient states: Tripped and fell going out of front door at 0745 this jl7 morning. Pt c/o headache and dizziness. Denies LOC. Care prior to arrival: None. Mechanism of Injury: Fall from standing position. Trauma event details: Injury occurred in the [facility], Injury occurred: at home. Injury occurred: December 15, 2021. 08:55 Acuity: CHANNING 2 jl7 08:55 Method Of Arrival: Wheelchair jl7 09:38 Coronavirus screen: At this time, the client does not indicate any symptoms associated jd3 with coronavirus-19. Ebola Screen: No symptoms or risks identified at this time. Initial Sepsis Screen: Does the patient meet any 2 criteria? No. Patient's initial sepsis screen is negative. Does the patient have a suspected source of infection? No. Patient's initial sepsis screen is negative. Risk Assessment: Do you want to hurt yourself or someone else? Patient reports no desire to harm self or others. Onset of symptoms was December 15, 2021. Trauma Activation: Alert Physician: ED Physician; Name: ; Notified At: ; Arrived At: Physician: General Surgeon; Name: ; Notified At: ; Arrived At: Physician: Radiology; Name: ; Notified At: ; Arrived At: Physician: Respiratory; Name: ; Notified At: ; Arrived At: Physician: Lab; Name: ; Notified At: ; Arrived At: Historical: - Allergies: 08:57 Phenergan; jl7 - PMHx: 08:57 kidney failure; jl7 - PSHx: 08:57 gall stones removed; triple bypass; jl7 - Immunization history: Last tetanus immunization: unknown. - Social history:: Smoking status: unknown. Screenin:26 Abuse screen: Denies threats or abuse. Nutritional screening: No deficits noted. jd3 Tuberculosis screening: No symptoms or risk factors identified. 10:01 Fall Risk Fall in past 12 months (25 points). Gait- Normal/Bed Rest/Wheelchair (0 pts) jd3 Total Zaidi Fall Scale indicates Low Risk Score (25-44 pts). Fall prevention measures have been instituted. Side Rails Up X 2 Placed close to Nursing Station Frequent Obs/Assesments occuring. Primary Survey: 08:57 NO uncontrolled hemorrhage observed. A: The patient is alert. Airway: patent, No jl7 supplemental oxygen in use on arrival. Breathing/Chest: Respiratory pattern: regular, Respiratory effort: spontaneous, unlabored. Circulation: Skin color: pink. Disability Alert. 09:25 Exposure/Environment: All clothing and personal items were removed. Forensic evidence jd3 collection is not deemed to be indicated at this time. Items placed in patient belonging bag. There is no evidence of uncontrolled external bleeding. Obvious injury(ies) are noted at this time: abrasion noted to forehead and bridge of nose. A warming method has been applied: A warm blanket has been provided to the patient. 10:02 Reassessment Airway Airway Patent Oxygen No O2 Oral cavity Clear Trachea Midline jd3 Breathing/Chest Respiratory pattern Regular Respiratory effort Spontaneous Unlabored Breath sounds Clear Chest inspection Symmetrical Circulation Heart tones Present Pulses Palpable Color [place] Temperature Warm Dry Disability Alert. Secondary Survey: 09:25 HEENT: No deficits noted. Gastrointestinal: No deficits noted. : No signs and/or jd3 symptoms were reported regarding the genitourinary system. Musculoskeletal: Circulation, motion, and sensation intact. Range of motion: intact in all extremities. Assessment: 08:55 General: Appears in no apparent distress. comfortable, Behavior is calm, cooperative, jd3 appropriate for age. Pain: Complains of pain in head Quality of pain is described as aching, pressure. Neuro: Level of Consciousness is awake, alert, obeys commands, Oriented to person, place, time, situation, Pupils are PERRLA, Reports dizziness. Cardiovascular: Heart tones S1 S2 present Capillary refill < 3 seconds Patient's skin is warm and dry. Respiratory: Airway is patent Respiratory effort is even, unlabored, Respiratory pattern is regular, symmetrical, Breath sounds are clear bilaterally. Denies cough, shortness of breath. GI: No signs and/or symptoms were reported involving the gastrointestinal system. : No signs and/or symptoms were reported regarding the genitourinary system. EENT: No signs and/or symptoms were reported regarding the EENT system. Derm: Skin is intact, Skin is dry, Skin is normal, Skin temperature is warm. Musculoskeletal: Circulation, motion, and sensation intact. Range of motion: intact in all extremities. 10:01 Reassessment: Patient appears in no apparent distress at this time. No changes from jd3 previously documented assessment. Patient and/or family updated on plan of care and expected duration. Pain level reassessed. Patient is alert, oriented x 3, equal unlabored respirations, skin warm/dry/pink. Vital Signs: 08:57 BP 119 / 75; Pulse 66; Resp 16; Temp 98.4(TE); Pulse Ox 100% on R/A; Weight 65.77 kg; jl7 Height 5 ft. 7 in. (170.18 cm); Pain 7/10; 11:50 Pulse 65; Resp 17 S; Pulse Ox 100% on R/A; jd3 08:57 Body Mass Index 22.71 (65.77 kg, 170.18 cm) jl7 [place] Coma Score: 08:57 Eye Response: spontaneous(4). Verbal Response: oriented(5). Motor Response: obeys jl7 commands(6). Total: 15. 11:50 Eye Response: spontaneous(4). Verbal Response: oriented(5). Motor Response: obeys jd3 commands(6). Total: 15. Trauma Score (Adult): 08:57 Eye Response: spontaneous(1); Verbal Response: oriented(1); Motor Response: obeys jl7 commands(2); Systolic BP: > 89 mm Hg(4); Respiratory Rate: 10 to 29 per min(4); Brian Score: 15; Trauma Score: 12 11:50 Eye Response: spontaneous(1); Verbal Response: oriented(1); Motor Response: obeys jd3 commands(2); Systolic BP: > 89 mm Hg(4); Respiratory Rate: 10 to 29 per min(4); Brian Score: 15; Trauma Score: 12 ED Course: 08:45 Patient arrived in ED. as 08:46 Jael Rankin FNP-C [facility]. kb 08:46 Ebenezer Bautista MD is Attending Physician. kb 08:56 Triage completed. jl7 08:57 Patient has correct armband on for positive identification. Bed in low position. jl7 08:59 Jose De Paz MD is Private Physician. as 09:02 Dereck Mckeon, RN is Primary Nurse. jd3 09:17 CT Head Brain wo Cont In Process Unspecified. EDMS 09:26 Patient maintains SpO2 saturation greater than 95% on room air. jd3 09:38 Arm band placed on. jd3 09:38 Thermoregulation: warm blanket given to patient. jd3 12:30 No provider procedures requiring assistance completed. Patient did not have IV access jd3 during this emergency room visit. Administered Medications: 11:37 Drug: Tetanus-Diphtheria Toxoid Adult 0.5 ml {Vending Machine Operator: [employer]. Exp: jd3 02/01/2023. Lot #: [id number]. } Route: IM; Site: right deltoid; 11:52 Follow up: Response: No adverse reaction jd3 11:37 Drug: Tylenol 650 mg Route: PO; jd3 11:52 Follow up: Response: No adverse reaction jd3 Intake: 11:50 PO: 0ml; Total: 0ml. jd3 Output: 11:50 Urine: 0ml; Total: 0ml. jd3 Outcome: 11:08 Discharge ordered by . kb 11:50 Discharged to home via wheelchair. jd3 11:50 Condition: stable 11:50 Discharge instructions given to patient, Instructed on discharge instructions, follow up and referral plans. Demonstrated understanding of instructions, follow-up care. 11:50 Patient's length of stay in the Emergency Department was greater than 2 hours. waiting jd3 on results and medsPatient's length of stay extended due to 11:52 Patient left the ED. jd3 Signatures: Dispatcher [employer] EDGA Jael Rankin, BAG CHECKER-C BAG CHECKER-Zaira Jackson Jahala RN RN jl7 Dereck Mckeon, RN RN jd3 Corrections: (The following items were deleted from the chart) 12:32 12:30 Condition: stable jd3 jd3 12:32 12:30 Discharged to home via wheelchair, jd3 jd3 12:32 12:30 Discharge instructions given to patient, Instructed on discharge instructions, jd3 follow up and referral plans. Demonstrated understanding of instructions, follow-up care, jd3
[2021-12-15] MEDS ORDERED: TETANUS & DIPHTHERIA TOX,ADULT 0.5 ML VIAL ONE (11:34)
[2021-12-15] MEDS ORDERED: ACETAMINOPHEN 325 MG TABLET ONE (11:34)
[2021-12-15 11:59] VITALS: BP 119/75; TEMP 98.4; O2SAT 100
== END 2021-12-15 11:52 | disposition home or self-care (01) ==
LOC: ER 08:44
DX: S09.90XA Unspecified injury of head, initial encounter (principal); S00.31XA Abrasion of nose, initial encounter; W01.0XXA Fall on same level from slipping, tripping and stumbling without subsequent striking against object, initial encounter; Y93.9 Activity, unspecified; Y92.019 Unspecified place in single-family (private) house as the place of occurrence of the external cause; Z88.8 Allergy status to other drugs, medicaments and biological substances; Z23 Encounter for immunization
CPT/HCPCS: 70450; 90471; 90714; 99284

== ENCOUNTER 2021-12-22 11:00 | Inpatient (IN) | payer OTHER ==
--- OUTSIDE RECORDS SUMMARY | 2021-12-22 11:02 | XMS REPORT | Continuity of Care Document ---
:1955 Author Organization [facility] t Address [address] [place] [id number] Care Team Providers Name Role Phone Unavailable Unavailable Unavailable Problems This patient has no known problems. Allergies, Adverse Reactions, Alerts Allergy Allergy Status Severity Reaction(s) Onset Inactive Treating Comm ents Source Name Type Date Date Clinician Phenerga Adverse Active Info Not [facility] Medications Ordered Filled Start Stop Current Ordering Indication Dosage Frequency Signature Comments Components Source Medication Medication Date Date Medication? Clinician (SIG) Name Name Neurontin Neurontin Yes Jose Manuel [address] [facility] Metoprolol Metoprolol Yes Jose Manuel TAKE ONE [facility] Tartrate Tartrate [facility] TABLET BY L ukes - MOUTH [facility] TWICE A l DAY. TAKE Outpati WITH ent METOPROLOL Clinics 25MG TO EQUAL TOTAL DOSE OF 75MG TWICE DAILY Remeron Remeron Yes Jose Manuel [address] [facility] at bedtime [facility] Depakote ER Depakote ER Yes Jose Manuel not [facility] Metoprolol Metoprolol Yes Jose Manuel TAKE ONE [facility] Tartrate Tartrate [facility] TABLET BY L [facility] - MOUTH [facility] TWICE A l DAY. TAKE Outpati WITH ent METOPROLOL Clinics 50MG TO TOTAL DOSE OF 75MG Simvastatin Simvastatin Yes Jose Manuel [address] [facility] in the [facility] Zoloft Zoloft Yes [...] Clinicians Facility Department ID 2020-06-30 2020-06-30 Outpatient [facility] [id number] [facility] 2019-03-29 2019-03-29 [facility] [id number] [facility] 10:30:00 10:30:00 t [employer] [facility] Medicine Outpati ent Clinics 2019-03-24 2019-03-24 [facility] [id number] [facility] 09:58:00 09:58:00 t [employer] [facility] Medicine Outpati ent Clinics 2019-03-23 2019-03-23 [facility] [id number] [facility] 15:09:00 15:09:00 t [employer] [facility] Medicine Outpati ent Clinics 2018-12-28 2018-12-28 [facility] [id number] [facility] 11:15:00 11:15:00 t [employer] [facility] Medicine Outpati ent Clinics 2018-11-04 2018-11-04 [facility] [id number] [facility] 09:30:00 09:30:00 t [employer] [facility] Medicine Outpati ent Clinics 2018-09-30 2018-09-30 [facility] [id number] [facility] 10:45:00 10:45:00 t [employer] [facility] Medicine Outpati ent Clinics 2018-06-29 2018-06-29 [facility] [id number] [facility] 10:30:00 10:30:00 t [employer] [facility] Medicine Outpati ent Clinics 2018-05-28 2018-05-28 [facility] [id number] [facility] 10:26:00 10:26:[address] [facility] l Medicine Outpati ent Clinics 2018-05-10 2018-05-10 [facility] [id number] 13:00:00 13:00:[address] [facility] - [address] [facility] Medicine l Medicine Outpati ent Clinics 2018-05-05 2018-05-05 [facility] [id number] [facility] 08:31:00 08:31:[address] [facility] - [address] [facility] Medicine l Medicine Outpati ent Clinics 2018-04-30 2018-04-30 [facility] [id number] 11:09:00 11:09:[address] [facility] - [address] [facility] Medicine l Medicine Outpati ent Clinics 2018-04-15 2018-04-15 [facility] [id number] 16:14:00 16:14:[address] [facility] - [address] [facility] Medicine l Medicine Outpati ent Clinics 2018-04-15 2018-04-15 [facility] [id number] 08:15:00 08:15:[address] [facility] - [address] [facility] Medicine l Medicine Outpati ent Clinics 2018-02-25 2018-02-25 [facility] [id number] 14:45:00 14:45:[address] [facility] - [address] [facility] Medicine l Medicine Outpati ent Clinics 2017-12-09 2017-12-09 [facility] [id number] 08:18:00 08:18:[address] [facility] - [address] [facility] Medicine l Medicine Outpati ent Clinics 2017-12-09 2017-12-09 [facility] [id number] 08:15:00 08:15:[address] [facility] - [address] [facility] Medicine l Medicine Outpati ent Clinics 2017-12-09 2017-12-09 [facility] [id number] 08:14:00 08:14:[address] [facility] - [address] [facility] Medicine l Medicine Outpati ent Clinics Results This patient has no known results.
[2021-12-22] MEDS ORDERED: MORPHINE 2 MG/ML SYR ONE ×2 (12:16→14:32)
[2021-12-22] MEDS ORDERED: ONDANSETRON 4 MG/2 ML VIAL ONE (12:16)
[2021-12-22 12:24] LABS: Absolute Lymphocytes (CBC) 0.9 K/uL (0.7-4.9); Hematocrit 35.6 % (39.6-49.0); Lymphocytes % 14.6 % (15.3-44.8); MPV 7.4 fL (7.6-11.3); RBC Red Blood Cell Count 3.47 M/uL (4.33-5.43)
[2021-12-22 12:49] LABS: Bilirubin Direct 0.3 mg/dL (0-0.2); Bilirubin Total 0.7 mg/dL (0.2-1.0); Magnesium 2.5 mg/dL (1.8-2.4); Protein, Total 6.4 g/dL (6.4-8.2)
[2021-12-22 12:51] LABS: Troponin High Sensitivity 97.5 pg/mL (<58.9)
--- NOTE | 2021-12-22 12:55 | RAD REPORT ---
EXAM DESCRIPTION: RAD - Chest Single View - 12/22/2021 12:46 pm CLINICAL HISTORY: COUGH COMPARISON: Chest Single View dated 11/30/2021; Chest Single View dated 06/27/2021; Chest Single View dated 06/23/2021; Chest Pa And Lat (2 Views) dated 06/05/2021 FINDINGS: Lines: None. Lungs: No evidence of edema or pneumonia. Pleural: No significant pleural effusions or pneumothorax. Cardiac: The heart size is within normal limits. Bones: No acute fractures. Other: IMPRESSION: No acute cardiopulmonary disease.
--- NOTE | 2021-12-22 12:56 | RAD REPORT ---
EXAM DESCRIPTION: RAD - Knee Left 3 View - 12/22/2021 12:46 pm CLINICAL HISTORY: PAIN COMPARISON: No comparisons FINDINGS: No acute fracture. No malalignment. Peripheral vascular calcifications. Enthesophytes donnie g the patella. Cortical thickening along the proximal fibular metadiaphysis could be related to remot e fracture. IMPRESSION: No acute osseous abnormality involving the left knee.
--- NOTE | 2021-12-22 12:56 | RAD REPORT ---
EXAM DESCRIPTION: RAD - Ankle Left 3 View - 12/22/2021 12:46 pm CLINICAL HISTORY: PAIN COMPARISON: <Comparisons> FINDINGS/IMPRESSION: No acute fracture of the left ankle. No malalignment. No significant focal dege nerative changes.
--- NOTE | 2021-12-22 12:57 | RAD REPORT ---
EXAM DESCRIPTION: RAD - Tib Fib Left - 12/22/2021 12:46 pm CLINICAL HISTORY: PAIN COMPARISON: No comparisonsNo comparisonsKnee Left 3 View dated 12/22/2021 FINDINGS: No acute fracture. No malalignment. No significant focal degenerative changes. IMPRESSION: No acute osseous abnormality involving the tibia or fibula.
--- NOTE | 2021-12-22 13:26 | RAD REPORT ---
EXAM DESCRIPTION: US - Lower Extremity Artery Uni Ltd - 12/22/2021 1:09 pm CLINICAL HISTORY: Leg pain COMPARISON: None FINDINGS: Color Doppler, grayscale, and spectral analysis was performed. Scattered calcified plaque is present. Triphasic flow is present in the left common femoral artery th rough the mid SFA. The distal SFA and popliteal are biphasic. The left posterior tibial artery flow i s monophasic and the left dorsalis pedis artery is occluded. IMPRESSION: Occluded left dorsalis pedis artery and moderate to severe stenosis involving the left p osterior tibial artery.
[2021-12-22 13:41] LABS: Protime INR 0.91
[2021-12-22 14:26] LABS: Urine Blood 3+ (Negative); Urine Glucose Negative (Negative); Urine Protein 1+ (Negative)
[2021-12-22] MEDS ORDERED: NA CHLORIDE 0.9% 500 ML ONE (14:32)
[2021-12-22] MEDS ORDERED: NA CHLORIDE 0.9% 1,000 ML ONE (14:32)
[2021-12-22] MEDS ORDERED: ASPIRIN 81 MG CHEWABLE TABLET ONE (14:32)
--- NOTE | 2021-12-22 14:33 | ER ---
Nurse's Notes [facility] Name: Kavin Armijo Age: 66 yrs Sex: Male : 1955 Arrival Date: 12/22/2021 Time: 11:03 Bed 3 Private MD: Jose De Paz V Diagnosis: Weakness;Dehydration;Unspecified injury of muscle(s) and tendon(s) of peroneal muscle group at lower leg level, left leg, initial encounter;Other acute kidney failure-chronic;Essential (primary) hypertension Presentation: 12/22 11:13 Chief complaint: Patient states: Frequent falls since Thursday. States he knows he has a ll1 clot in his L leg and PAD. Coronavirus screen: Vaccine status: Patient reports receiving the 2nd dose of the covid vaccine. Client denies travel out of the [place] in the last 14 days. At this time, the client does not indicate any symptoms associated with coronavirus-19. Ebola Screen: Patient denies travel to an Ebola-affected area in the 21 days before illness onset. Initial Sepsis Screen: Does the patient meet any 2 criteria? HR > 90 bpm. No. Patient's initial sepsis screen is negative. Does the patient have a suspected source of infection? No. Patient's initial sepsis screen is negative. Risk Assessment: Do you want to hurt yourself or someone else? Patient reports no desire to harm self or others. Onset of symptoms was December 16, 2021. 11:13 Method Of Arrival: Wheelchair ll1 11:13 Acuity: CHANNING 3 ll1 Triage Assessment: 11:15 General: Appears uncomfortable, ill, Behavior is cooperative, appropriate for age. ll1 Pain: Complains of pain in left leg Quality of pain is described as aching. Neuro: Reports weakness frequent falls since Thursday. . Derm: Bruising that is dark purple, all over body. abrasions all over body. Musculoskeletal: Reports weakness in left leg pain in left leg. Injury Description: Bruise. Historical: - Allergies: 11:15 Phenergan; ll1 - Home Meds: 14:53 aspirin 81 mg Oral tab [Active]; gabapentin oral [Active]; Clonidine Oral [Active]; vg1 sertraline oral [Active]; atorvastatin oral [Active]; tamsulosin oral [Active]; finasteride oral [Active]; - PMHx: 11:15 kidney failure; clot L leg; Hypertensive disorder; PAD; Bipolar disorder; ll1 - PSHx: 11:15 gall stones removed; triple bypass; ll1 - Immunization history:: Client reports receiving the 2nd dose of the Covid vaccine. - Social history:: Smoking status: Patient reports the use of cigarette tobacco products, smokes one-half pack cigarettes per day. - Family history:: not pertinent. Screenin:58 Abuse screen: Denies threats or abuse. Nutritional screening: No deficits noted. vg1 Tuberculosis screening: No symptoms or risk factors identified. Fall Risk Fall in past 12 months (25 points). No secondary diagnosis (0 pts). IV access (20 points). Ambulatory Aid- Crutches/Cane/Walker (15 pts). Gait- Weak (10 pts.). Mental Status- Oriented to own ability (0 pts). Total Zaidi Fall Scale indicates High Risk Score (45 or more points). Fall prevention measures have been instituted. Side Rails Up X 2 Placed Close to Nursing Station Family Present and informed to notify staff if the need to leave the bedside As available patient and family educated on Fall Prevention Program and Strategies. Assessment: 11:58 General: Appears in no apparent distress. uncomfortable, Behavior is calm, cooperative. vg1 Pain: Complains of pain in left knee, left adam, anterior aspect of left ankle and dorsum of left foot Pain currently is 8 out of 10 on a pain scale. Pain began 2-3 days ago. Neuro: Level of Consciousness is awake, alert, obeys commands, Oriented to person, place, time, situation. Cardiovascular: Patient's skin is warm and dry. Respiratory: Airway is patent Respiratory effort is even, unlabored. GI: No signs and/or symptoms were reported involving the gastrointestinal system. : No signs and/or symptoms were reported regarding the genitourinary system. EENT: No signs and/or symptoms were reported regarding the EENT system. Derm: Skin is thin. Musculoskeletal: Range of motion: limited in left ankle Reports weakness in left leg. Injury Description: at bedside states pt uses a cane and tripped and fell onto Left Knee; pt states numbness/tingling to Left foot. 12:23 Reassessment: XRAY and US at bedside. vg1 13:30 Reassessment: Patient appears in no apparent distress at this time. No changes from vg1 previously documented assessment. Patient and/or family updated on plan of care and expected duration. Pain level reassessed. Patient is alert, oriented x 3, equal unlabored respirations, skin warm/dry/pink. 14:30 Reassessment: Patient appears in no apparent distress at this time. Patient and/or vg1 family updated on plan of care and expected duration. Pain level reassessed. Patient is alert, oriented x 3, equal unlabored respirations, skin warm/dry/pink. Rated left leg pain 7/10. Vital Signs: 11:13 BP 146 / 99; Pulse 101; Resp 17; Temp 97.1; Pulse Ox 99% ; Weight 63.5 kg; Height 5 ft. ll1 7 in. (170.18 cm); Pain 8/10; 13:31 BP 177 / 95; Pulse 83; Resp 18; Pulse Ox 100% ; vg1 14:49 BP 204 / 99; Pulse 83; Resp 16; Pulse Ox 100% ; vg1 15:45 BP 181 / 99; Pulse 85; Resp 19; Pulse Ox 97% on R/A; vg1 16:30 BP 165 / 86; Pulse 82; Resp 14; Pulse Ox 99% ; vg1 20:01 BP 153 / 82; Pulse 90; Resp 18 S; Pulse Ox 100% on R/A; as6 11:13 Body Mass Index 21.93 (63.50 kg, 170.18 cm) ll1 ED Course: 11:03 Patient arrived in ED. rg4 11:03 Jose De Paz MD is Private Physician. rg4 11:15 Triage completed. ll1 11:16 Arm band placed on Patient placed in an exam room, on a stretcher. ll1 11:38 Ashish Child MD is Attending Physician. [facility] 11:46 Dejah Gibbons, PILLO is Primary Nurse. vg1 11:58 Patient has correct armband on for positive identification. Placed in gown. Bed in low vg1 position. Call light in reach. Side rails up X2. Adult w/ patient. 12:03 inside wireman on. Pulse ox on. NIBP on. vg1 12:09 Initial lab(s) drawn, by ED staff, sent to lab. Inserted saline lock: 20 gauge in right ph antecubital area, using aseptic technique. Blood collected. 12:48 XRAY Chest (1 view) In Process Unspecified. EDMS 12:48 Knee Left 3 View XRAY In Process Unspecified. EDMS 12:48 Tib Fib Left XRAY In Process Unspecified. EDMS 12:48 Ankle Left 3 View XRAY In Process Unspecified. EDMS 12:51 Notified ED physician of a critical lab result(s). AST 409, HS troponin 97.5. ph 13:10 US LE Artery Uni Ltd In Process Unspecified. EDMS 14:28 Jose De Paz MD is Hospitalizing Provider. lorenzo 20:11 Primary Nurse role handed off by Dejah Gibbons, RN cs9 20:27 Isabel Barnett, PILLO is Primary Nurse. kd3 20:42 No provider procedures requiring assistance completed. Patient admitted, IV remains in kd3 place. Administered Medications: 12:19 Drug: Zofran (Ondansetron) 4 mg Route: IVP; Site: right antecubital; vg1 14:19 Follow up: Response: No adverse reaction vg1 12:21 Drug: morphine 2 mg Route: IVP; Site: right antecubital; vg1 13:00 Follow up: Response: No adverse reaction; Marked relief of symptoms vg1 14:40 Drug: NS 0.9% 500 ml Route: IV; Rate: bolus; Site: right antecubital; vg1 17:57 Follow up: IV Status: Completed infusion; IV Intake: 500ml vg1 14:40 Drug: NS 0.9% 1000 ml Route: IV; Rate: 75 ml/hr; Site: right antecubital; vg1 20:50 Follow up: Response: No adverse reaction; IV Status: Infusion continued upon admission kd3 14:41 Drug: morphine 2 mg Route: IVP; Site: right antecubital; vg1 15:15 Follow up: Response: No adverse reaction; Marked relief of symptoms vg1 14:45 Drug: Aspirin 81 mg Route: PO; vg1 17:57 Follow up: Response: No adverse reaction vg1 15:28 Drug: cloNIDine 0.1 mg Route: PO; vg1 17:08 Follow up: Response: No adverse reaction; Blood pressure is lowered vg1 15:28 Drug: Norvasc (amlodipine) 10 mg Route: PO; vg1 17:08 Follow up: Response: No adverse reaction; Blood pressure is lowered vg1 15:29 Drug: Lovenox (enoxaparin) 40 mg Route: Sub-Q; Site: right lower abdomen; vg1 17:08 Follow up: Response: No adverse reaction vg1 15:30 Drug: Nitro-Bid (nitroglycerin) Ointment 2 % 0.5 inches Route: Transdermal; Site: left vg1 thigh; 17:08 Follow up: Response: No adverse reaction vg1 17:58 Drug: TRENtaL Extended Release Tablet 400 mg Route: PO; vg1 20:50 Follow up: Response: No adverse reaction kd3 Intake: 17:57 IV: 500ml; Total: 500ml. vg1 Outcome: 14:32 Decision to Hospitalize by Provider. lorenzo 20:42 Admitted to Med/surg accompanied by tech, room 210, Report called to 2nd floor kd3 20:42 Condition: stable 20:42 Discharge instructions given to patient, Instructed on the need for admit, Demonstrated understanding of instructions, follow-up care. 20:50 Patient left the ED. kd3 Signatures: Dispatcher [employer] EDMS Ashish Child MD MD cha Hall, Patricia, RN RN Taylor Lawson rg4 Dejah Gibbons, RN RN vg1 Clem Malone RN RN [email or web address] Shraddha Romero cs9 Kg Costello RN RN as6 Isabel Barnett, RN RN kd3 Corrections: (The following items were deleted from the chart) 12:02 11:58 Fall Risk Fall in past 12 months (25 points). No secondary diagnosis (0 pts). IV vg1 access (20 points). Ambulatory Aid- Crutches/Cane/Walker (15 pts). Gait- Weak (10 pts.). Mental Status- Oriented to own ability (0 pts). Total Zaidi Fall Scale indicates High Risk Score (45 or more points). Fall prevention measures have been instituted. Side Rails Up X 2 Placed Close to Nursing Station Family Present and informed to notify staff if the need to leave the bedside vg1
--- NOTE | 2021-12-22 14:33 | EDPHYS ---
Physician Documentation [facility] Name: Kavin Armijo Age: 66 yrs Sex: Male : 1955 Arrival Date: 12/22/2021 Time: 11:03 Bed 3 Private MD: Jose De Paz V ED Physician Ashish Child HPI: 12/22 12:00 This 66 yrs old Male presents to ER via Wheelchair with complaints of Fall lorenzo Injury, Leg Pain. 12:00 Details of fall: The patient fell from an upright position, while walking. Onset: The lorenzo symptoms/episode began/occurred 2 day(s) ago. Associated injuries: The patient sustained decreased range of motion, painful injury, swelling. Historical: - Allergies: 11:15 Phenergan; ll1 - Home Meds: 14:53 aspirin 81 mg Oral tab [Active]; gabapentin oral [Active]; Clonidine Oral [Active]; vg1 sertraline oral [Active]; atorvastatin oral [Active]; tamsulosin oral [Active]; finasteride oral [Active]; - PMHx: 11:15 kidney failure; clot L leg; Hypertensive disorder; PAD; Bipolar disorder; ll1 - PSHx: 11:15 gall stones removed; triple bypass; ll1 - Immunization history:: Client reports receiving the 2nd dose of the Covid vaccine. - Social history:: Smoking status: Patient reports the use of cigarette tobacco products, smokes one-half pack cigarettes per day. - Family history:: not pertinent. ROS: 12:00 Constitutional: Negative for fever, chills, and weight loss, Eyes: Negative for injury, lorenzo pain, redness, and discharge, ENT: Negative for injury, pain, and discharge, Neck: Negative for injury, pain, and swelling, Cardiovascular: Negative for chest pain, palpitations, and edema, Respiratory: Negative for shortness of breath, cough, wheezing, and pleuritic chest pain, Abdomen/GI: Negative for abdominal pain, nausea, vomiting, diarrhea, and constipation, Back: Negative for injury and pain, : Negative for injury, bleeding, discharge, and swelling, Skin: Negative for injury, rash, and discoloration, Neuro: Negative for headache, weakness, numbness, tingling, and seizure, Psych: Negative for depression, anxiety, suicide ideation, homicidal ideation, and hallucinations, Allergy/Immunology: Negative for hives, rash, and allergies, Endocrine: Negative for neck swelling, polydipsia, polyuria, polyphagia, and marked weight changes, Hematologic/Lymphatic: Negative for swollen nodes, abnormal bleeding, and unusual bruising. 12:00 MS/extremity: Positive for decreased range of motion, pain, swelling, tenderness, of the left knee and left adam. Exam: 12:00 Constitutional: This is a well developed, well nourished patient who is awake, alert, lorenzo and in no acute distress. Head/Face: Normocephalic, atraumatic. Eyes: Pupils equal round and reactive to light, extra-ocular motions intact. Lids and lashes normal. Conjunctiva and sclera are non-icteric and not injected. Cornea within normal limits. Periorbital areas with no swelling, redness, or edema. ENT: Nares patent. No nasal discharge, no septal abnormalities noted. Tympanic membranes are normal and external auditory canals are clear. Oropharynx with no redness, swelling, or masses, exudates, or evidence of obstruction, uvula midline. Mucous membranes moist. Neck: Trachea midline, no thyromegaly or masses palpated, and no cervical lymphadenopathy. Supple, full range of motion without nuchal rigidity, or vertebral point tenderness. No Meningismus. 12:36 ECG was reviewed by the Attending Physician. [facility] Vital Signs: 11:13 BP 146 / 99; Pulse 101; Resp 17; Temp 97.1; Pulse Ox 99% ; Weight 63.5 kg; Height 5 ft. ll1 7 in. (170.18 cm); Pain 8/10; 13:31 BP 177 / 95; Pulse 83; Resp 18; Pulse Ox 100% ; vg1 14:49 BP 204 / 99; Pulse 83; Resp 16; Pulse Ox 100% ; vg1 15:45 BP 181 / 99; Pulse 85; Resp 19; Pulse Ox 97% on R/A; vg1 16:30 BP 165 / 86; Pulse 82; Resp 14; Pulse Ox 99% ; vg1 20:01 BP 153 / 82; Pulse 90; Resp 18 S; Pulse Ox 100% on R/A; as6 11:13 Body Mass Index 21.93 (63.50 kg, 170.18 cm) [facility] MDM: 11:38 Patient medically screened. [facility] 12:12 Differential diagnosis: contusion, fracture, laceration, multiple trauma, sprain, lorenzo strain. Data reviewed: vital signs, nurses notes, lab test result(s), EKG, radiologic studies, doppler, plain films. Data interpreted: youth nutritional monitor: rate is 101 beats/min, rhythm is regular, Pulse oximetry: on room air is 99 %. Test interpretation: by ED physician or midlevel provider: ECG, plain radiologic studies. Counseling: I had a detailed discussion with the patient and/or guardian regarding: the historical points, exam findings, and any diagnostic results supporting the discharge/admit diagnosis, lab results, radiology results, the need for outpatient follow up, for definitive care, a family practitioner, an tape recorder repairer, a orthopedic surgeon. 12/22 11:56 Order name: Basic Metabolic Panel; Complete Time: 13:55 [facility] 12/22 11:56 Order name: CBC with Diff; Complete Time: 13:55 [facility] 12/22 11:56 Order name: LFT's; Complete Time: 13:55 [facility] 12/22 11:56 Order name: Magnesium; Complete Time: 13:55 [facility] 12/22 11:56 Order name: NT PRO-BNP; Complete Time: 13:55 [facility] 12/22 11:56 Order name: PT-INR; Complete Time: 13:55 [facility] 12/22 11:56 Order name: Troponin HS; Complete Time: 13:55 [facility] 12/22 11:56 Order name: XRAY Chest (1 view); Complete Time: 13:55 [facility] 12/22 11:56 Order name: Knee Left 3 View XRAY; Complete Time: 13:55 [facility] 12/22 11:56 Order name: Tib Fib Left XRAY; Complete Time: 13:55 [facility] 12/22 11:56 Order name: Ankle Left 3 View XRAY; Complete Time: 13:55 [facility] 12/22 11:56 Order name: [employer]; Complete Time: 13:55 [facility] 12/22 14:26 Order name: Urine Dipstick-Ancillary; Complete Time: 14:42 EDDE 12/22 14:40 Order name: SARS-COV-2 RT PCR (Document "Date of Onset" if Symptomatic) 12/22 11:56 Order name: EKG; Complete Time: 11:57 [facility] 12/22 11:56 Order name: Cardiac monitoring; Complete Time: 12:23 [facility] 12/22 11:56 Order name: EKG - Nurse/Tech; Complete Time: 12:23 [facility] 12/22 11:56 Order name: IV Saline Lock; Complete Time: 12:10 [facility] 12/22 14:40 Order name: CONS Physician Consult [facility] 12/22 14:40 Order name: CONS Physician Consult [facility] 12/22 11:56 Order name: Labs collected and sent; Complete Time: 12:10 [facility] 12/22 11:56 Order name: O2 Per Protocol; Complete Time: 12:02 [facility] 12/22 11:56 Order name: O2 Sat Monitoring; Complete Time: 12:02 [facility] 12/22 11:56 Order name: Urine Dipstick-Ancillary (obtain specimen); Complete Time: 14:25 [facility] EC:36 Rate is 81 beats/min. Rhythm is regular. QRS [place] is Normal. ID interval is normal. QRS lorenzo interval is normal. QT interval is normal. No Q waves. T waves are Normal. No ST changes noted. Clinical impression: Abnormal EKG without significant change and No evidence of ischemia. Interpreted by me. Reviewed by me. Administered Medications: 12:19 Drug: Zofran (Ondansetron) 4 mg Route: IVP; Site: right antecubital; vg1 14:19 Follow up: Response: No adverse reaction vg1 12:21 Drug: morphine 2 mg Route: IVP; Site: right antecubital; vg1 13:00 Follow up: Response: No adverse reaction; Marked relief of symptoms vg1 14:40 Drug: NS 0.9% 500 ml Route: IV; Rate: bolus; Site: right antecubital; vg1 17:57 Follow up: IV Status: Completed infusion; IV Intake: 500ml vg1 14:40 Drug: NS 0.9% 1000 ml Route: IV; Rate: 75 ml/hr; Site: right antecubital; vg1 20:50 Follow up: Response: No adverse reaction; IV Status: Infusion continued upon admission kd3 14:41 Drug: morphine 2 mg Route: IVP; Site: right antecubital; vg1 15:15 Follow up: Response: No adverse reaction; Marked relief of symptoms vg1 14:45 Drug: Aspirin 81 mg Route: PO; vg1 17:57 Follow up: Response: No adverse reaction vg1 15:28 Drug: cloNIDine 0.1 mg Route: PO; vg1 17:08 Follow up: Response: No adverse reaction; Blood pressure is lowered vg1 15:28 Drug: Norvasc (amlodipine) 10 mg Route: PO; vg1 17:08 Follow up: Response: No adverse reaction; Blood pressure is lowered vg1 15:29 Drug: Lovenox (enoxaparin) 40 mg Route: Sub-Q; Site: right lower abdomen; vg1 17:08 Follow up: Response: No adverse reaction vg1 15:30 Drug: Nitro-Bid (nitroglycerin) Ointment 2 % 0.5 inches Route: Transdermal; Site: left vg1 thigh; 17:08 Follow up: Response: No adverse reaction vg1 17:58 Drug: TRENtaL Extended Release Tablet 400 mg Route: PO; vg1 20:50 Follow up: Response: No adverse reaction kd3 Disposition Summary: 12/22/21 14:32 Hospitalization Ordered Hospitalization Status: Inpatient Admission lorenzo Provider: Jose De Paz cha Location: Telemetry/MedSurg (Inpatient) lorenzo Condition: Fair lorenzo Problem: new lorenzo Symptoms: have improved lorenzo Bed/Room Type: Standard lorenzo Room Assignment: 210(12/22/21 17:45) dw Diagnosis - Weakness lorenzo - Dehydration lorenzo - Unspecified injury of muscle(s) and tendon(s) of peroneal muscle group at lower leg lorenzo level, left leg, initial encounter - Other acute kidney failure - chronic lorenzo - Essential (primary) hypertension lorenzo Forms: - Medication Reconciliation Form lorenzo - SBAR form lorenzo Signatures: Dispatcher [employer] Barbi Hinojosa RN RN dw Anderson, Corey, MD MD cha Garcia, Victoria, RN RN vg1 Clem Malone RN RN ll1 Isabel Barnett RN kd3 Corrections: (The following items were deleted from the chart) 17:45 14:32 lorenzo dw
[2021-12-22] MEDS ORDERED: PENTOXIFYLLINE ER 400 MG TAB PO SCH (15:00)
[2021-12-22] MEDS ORDERED: cloNIDine HCL 0.1 MG TAB ONE (15:28)
[2021-12-22] MEDS ORDERED: NITROGLYCERIN 1 GM PKT TD ONE (15:28)
[2021-12-22] MEDS ORDERED: ENOXAPARIN 40 MG/0.4 ML SQ ONE (15:29)
[2021-12-22] MEDS ORDERED: AMLODIPINE 10 MG TAB ONE (15:29)
[2021-12-22 21:03] VITALS: BMI 20.7
[2021-12-22] MEDS ORDERED: ONDANSETRON 4 MG/2 ML VIAL IV PRN (21:14)
[2021-12-22] MEDS ORDERED: ACETAMINOPHEN 500 MG TAB PO PRN (21:14)
[2021-12-22] MEDS ORDERED: ENOXAPARIN 30 MG/0.3 ML SQ SCH (21:14)
[2021-12-22] MEDS ORDERED: FAMOTIDINE 20 MG/2 ML VIAL IV ONE (22:00)
[2021-12-22] MEDS: METOPROLOL TAR 25 MG TAB PO SCH (22:17)
[2021-12-22] MEDS: cloNIDine HCL 0.1 MG TAB PO SCH (22:17)
[2021-12-22] MEDS: PENTOXIFYLLINE ER 400 MG TAB PO SCH (22:17)
[2021-12-22] MEDS: MORPHINE 4 MG/ML SYR IV PRN (22:18)
--- NOTE | 2021-12-22 22:28 | P.HP ---
Certification for Inpatient Patient admitted to: Inpatient With expected LOS: >2 Midnights Practitioner: I am a practitioner with admitting privileges, knowledge of patient current condition, hospital course, and medical plan of care. Services: Services provided to patient in accordance with Admission requirements found in Title 42 Section 412.3 of the Code of Federal Regulations Patient History Date of Service: 12/22/21 Reason for admission: WEAK, FALLEN History of Present Illness: MR. MENDEZ HAS RECURRENT ADMISSIONS FOR DEHYDRATION WITH HIS CHRONIC PSYCHIATRI ISSUES HE DOES NOT DRINK ENOUGH WATER HE SHOULD. HE HAS BEEN TOLD TO DRINK AT LEAST 90 OZ OF WATER DAILY. ONCE AGAIN HE COMES WITH WEAKNESS, FALLS IN BATHROOM AND HAS FOCAL WEAKNESS OF L LEG. HE ALSO HAS PAIN THERE. Allergies chlorpromazine HCl [From Thorazine] Allergy (Severe, Verified 03/25/21 14:55) Anaphylaxis promethazine HCl [From Phenergan] Allergy (Severe, Verified 03/25/21 14:55) Anaphylaxis Home medications list reviewed: Yes Home Medications: Aspirin [Ecotrin 81 MG] 81 mg PO DAILY 06/19/20 Divalproex ER [Depakote *ER] 500 mg PO BEDTIME 06/19/20 Mirtazapine 7.5 mg PO BEDTIME 06/19/20 Sertraline [Zoloft*] 100 mg PO DAILY 06/19/20 calcitrioL [Rocaltrol] 0.25 mcg PO DAILY 06/19/20 Finasteride [Proscar*] 5 mg PO DAILY 11/29/21 Tamsulosin [Flomax*] 1 cap PO DAILY 11/29/21 Gabapentin [Neurontin*] 100 mg PO TID #90 cap 11/30/21 Bupropion HCl [Wellbutrin] 50 mg PO DAILY 12/02/21 cloNIDine HCL [Clonidine HCl] 1 tab PO TID 12/02/21 Amlodipine [Norvasc*] 10 mg PO DAILY 12/22/21 Atorvastatin Calcium [Lipitor*] 10 mg PO DAILY 12/22/21 - Past Medical/Surgical History Diabetic: No -: Obstructive sleep apnea -: Chronic renal disease, stage IV -: CAD with prior CABG x3 vessel -: Bipolar disorder -: Chronic pain-lower back -: Hypertension -: Hyperlipidemia -: Insomnia -: History of dvt right calf (knee fracture) -: Colon polyps -: GERD with ulcers -: Tobacco abuse -: CABG x3 vessel -: cholecystectomy -: triple bypass -: knee surgery Psychosocial/ Personal History: Patient is - Family History Mother -: Heart disease Notes: polycythemia, [place] Father -: Other (see notes) Notes: pancreatic cancer - Social History Alcohol use: No CD- Drugs: No Caffeine use: No Review of Systems 10-point ROS is otherwise unremarkable General: Weakness, Malaise Cardiovascular: As per HPI Physical Examination - Vital Signs Temperature: 97.3 F Blood Pressure: 162/89 Pulse: 95 Respirations: 18 Pulse Ox (%): 90 - Physical Exam General: Oriented x3, Moderate distress HEENT: Atraumatic, PERRLA, Mucous membr. moist/pink, EOMI, Sclerae nonicteric Neck: Supple, 2+ carotid pulse no bruit, No LAD, Without JVD or thyroid abnormality Respiratory: Clear to auscultation bilaterally, Normal air movement Cardiovascular: Regular rate/rhythm, Normal S1 S2 Gastrointestinal: Normal bowel sounds, No tenderness Musculoskeletal: No tenderness Integumentary: No rashes, No warmth (L FOOT AND LEG. NO PULSES IN DP AND PT. POS POPLITEAL PULSE) Neurological: Normal gait, Normal speech, Normal strength at 5/5 x4 extr, Normal tone, Normal affect Lymphatics: No axilla or inguinal lymphadenopathy - Studies Laboratory Data (last 24 hrs) 12/22/21 12:08: PT 10.0, INR 0.91 12/22/21 12:08: WBC 6.4, Hgb 11.8 L, Hct 35.6 L, Plt Count 144 L 12/22/21 12:08: Sodium 139, Potassium 5.0, BUN 54 H, Creatinine 4.27 H, Glucose 92, Magnesium 2.5 H, Total Bilirubin 0.7, AST 409 H*, ALT 89 H, Alkaline Phosphatase 53 Assessment and Plan - Problems (Diagnosis) (1) PVD (peripheral vascular disease) Current Visit: Yes Status: Acute Plan: HE IS A CHRONIC SMOKER AND HAS NOT WANTED TO QUIT SMOKING. PVD IS A RESULT OF IT. WE CAN'T DO ANGIOGRAM PATIENT HAS SEVERE RENAL FAILURE. DR. MARADIAGA CONSULTED (2) Chronic renal failure Current Visit: No Status: Chronic Qualifiers: Chronic kidney disease stage: stage 4 (severe) Qualified Code(s): N18.4 - Chronic kidney disease, stage 4 (severe) (3) Renal failure (ARF), acute on chronic Current Visit: No Status: Acute Plan: START IV FLUIDS. HE NEEDS THIS EVERY FEW WEEKS. HE QUITS DRINKING WATER. HE HAS BIPOLAR DISEASE AND ALSO HAS ARGUMENTS WITH HIS ALL THE TIME. (4) Bipolar disorder Onset Date: 02/23/18 Current Visit: No Status: Chronic Qualifiers: Current bipolar episode type: depressed Current episode severity: moderate - Advance Directives Does patient have a Living Will: No Does patient have a Durable POA for Healthcare: No
[2021-12-22] MEDS: NACHLORIDE 0.45% 1,000 ML IV SCH (22:36)
[2021-12-22] MEDS ORDERED: HEPARIN/D5W 25,000 UNIT/500 ML BAG IV SCH ×2 (23:00→23:45)
[2021-12-23 03:58] LABS: Absolute Lymphocytes (CBC) 0.4 K/uL (0.7-4.9); Hematocrit 33.2 % (39.6-49.0); Lymphocytes % 5.2 % (15.3-44.8); MPV 7.1 fL (7.6-11.3); RBC Red Blood Cell Count 3.28 M/uL (4.33-5.43)
[2021-12-23 04:27] LABS: Potassium 5.4 mmol/L (3.5-5.1)
[2021-12-23] MEDS: METOPROLOL TAR 25 MG TAB PO SCH ×2 (06:00→18:00)
[2021-12-23] MEDS: MORPHINE 4 MG/ML SYR IV PRN (08:22)
[2021-12-23] MEDS: CALCITROL 0.25 MCG CAP PO SCH (08:24)
[2021-12-23] MEDS: GABAPENTIN 100 MG CAP PO SCH ×3 (08:25→21:34)
[2021-12-23] MEDS: cloNIDine HCL 0.1 MG TAB PO SCH ×3 (08:25→21:33)
[2021-12-23] MEDS: SERTRALINE HCL 100 MG TAB PO SCH (08:25)
[2021-12-23] MEDS: TAMSULOSIN 0.4 MG SR CAP PO SCH (08:26)
[2021-12-23] MEDS: AMLODIPINE 10 MG TAB PO SCH (08:26)
[2021-12-23] MEDS: buPROPion HCL 100 MG TAB PO SCH (08:27)
[2021-12-23] MEDS: FINASTERIDE 5 MG TAB PO SCH (08:27)
[2021-12-23] MEDS: ASPIRIN EC 81 MG TAB PO SCH (08:28)
[2021-12-23] MEDS: ATORVASTATIN 10 MG TAB PO SCH (08:28)
[2021-12-23] MEDS ORDERED: FAMOTIDINE 20 MG/2 ML VIAL IV SCH (09:00)
[2021-12-23] MEDS ORDERED: cloNIDine HCL 0.1 MG TAB PO SCH (09:00)
[2021-12-23] MEDS: PENTOXIFYLLINE ER 400 MG TAB PO SCH ×2 (09:00→21:35)
[2021-12-23] MEDS ORDERED: AMLODIPINE 5 MG TAB PO SCH (09:00)
[2021-12-23] MEDS ORDERED: ASPIRIN EC 81 MG TAB PO SCH (09:00)
--- NOTE | 2021-12-23 09:38 | EKG ---
Test Date: 2021-12-22 Test Time: 12:18:01 [employer]ator Punch Operator: MICHELLE MEASUREMENT RESULTS: Intervals: Rate: 81 MT: 128 QRSD: 90 QT: 384 QTc: 446 [place]: P: 75 MT: 128 QRS: 91 T: 67 INTERPRETIVE STATEMENTS: Normal sinus rhythm Rightward axis Borderline ECG Compared to ECG 11/16/2021 14:57:59 Right-axis deviation now present Electronically Signed On 12-23-21 09:35:39 CDT by Han Dhillon
[2021-12-23] MEDS: NACHLORIDE 0.45% 1,000 ML IV SCH ×2 (12:33→21:07)
--- NOTE | 2021-12-23 14:32 | CON ---
Date of Consultation: 12/23/2021 Reason For Consultation: Peripheral arterial disease. History Of Present Illness: Mr. Armijo is 66, patient of Dr. De Paz, admitted with fall, weakness, an d was noted on arterial Doppler to have a completely occlusion of dorsalis pedis on the left. He had severe stenosis of the posterior tibial on the left. The patient's creatinine is 4.27. He has synchronizer nunu renal disease, history of left DVT, hypertension, bipolar disorder, and peripheral arterial disea se. He is status post CABG. He denied any cardiac symptoms. Past Medical History: As stated above. Allergies: HE IS ALLERGIC TO PHENERGAN. Review of Systems: Negative. Social History: Negative. Family History: Noncontributory. Medications: At home include aspirin, Norvasc, Zoloft, clonidine, Lipitor, Wellbutrin, Flomax, Depak ote, Neurontin, and Proscar. Physical Examination: General: He was pleasant, no acute distress. Vital Signs: Sinus rhythm. Blood pressure is 184/85. HEENT: Negative. Neck: Supple with no bruit. Chest: Clear. Cardiac: Revealed a regular rhythm and rate with S4 gallops. Abdomen: Benign. Extremities: Revealed no clubbing, cyanosis, or edema. Diagnostic Data: His EKG is nonspecific. Chest x-ray is unremarkable. AST is 409. Troponin is 97. Creatinine is 4.27. Arterial Doppler as listed earlier. Impression And Plan: 1.Peripheral arterial disease with severe stenosis in the left posterior tibial 100%, dorsalis pedis on the left. Creatinine of 4.7. Not a candidate for angiography unless he is going to go to dialys is. I suggest a low-dose Xarelto 2.5 b.i.d. I will discuss the case further with Dr. De Paz. Sissy lu, Trental may be an option. Nevertheless, he needs to be treated medically and conservatively bec ause of his kidney function. 2.History of left deep vein thrombosis. 3.Hypertension, poorly controlled. 4.Bipolar disorder. 5.History of coronary artery bypass graft. 6.Dyslipidemia. 7.Depression. 8.Benign prostatic hypertrophy. 9.Neuropathy. I agree with his present regimen. Again, I suggest that Trental or low-dose Xarelto and conservative medical management. I will follow him while he is in the hospital. NB/MODL Voice ID: [id number] Report ID: [id number]
--- NOTE | 2021-12-23 17:40 | P.PN ---
Subjective Date of Service: 12/23/21 Chief Complaint: WEAK, FALLEN Subjective: Improving HIS LEG IS LOT WARMER TODAY ON L SIDE. HE STILL HAS FOOT DROP AND NOT ABLE TO WORK. I HAVE ASKED HIM TO QUIT WORKING. HE WORKS FOR [employer]. Physical Examination - Vital Signs Temperature: 98.3 F Blood Pressure: 126/74 Pulse: 75 Respirations: 16 Pulse Ox (%): 97 - Physical Exam General: Oriented x3, Mild distress HEENT: Atraumatic, PERRLA, EOMI Neck: Supple, JVD not distended Respiratory: Clear to auscultation bilaterally, Normal air movement Cardiovascular: Regular rate/rhythm, Normal S1 S2 Gastrointestinal: Normal bowel sounds, No tenderness Musculoskeletal: No tenderness Integumentary: No rashes Neurological: Normal speech, Normal tone, Normal affect Lymphatics: No axilla or inguinal lymphadenopathy - Studies Medications List Reviewed: Yes Assessment And Plan - Current Problems (Diagnosis) (1) PVD (peripheral vascular disease) Current Visit: Yes Status: Acute Plan: HE IS A CHRONIC SMOKER AND HAS NOT WANTED TO QUIT SMOKING. PVD IS A RESULT OF IT. WE CAN'T DO ANGIOGRAM PATIENT HAS SEVERE RENAL FAILURE. DR. MARADIAGA CONSULTED (2) Chronic renal failure Current Visit: No Status: Chronic Qualifiers: Chronic kidney disease stage: stage 4 (severe) Qualified Code(s): N18.4 - Chronic kidney disease, stage 4 (severe) (3) Renal failure (ARF), acute on chronic Current Visit: No Status: Acute Plan: START IV FLUIDS. HE NEEDS THIS EVERY FEW WEEKS. HE QUITS DRINKING WATER. HE HAS BIPOLAR DISEASE AND ALSO HAS ARGUMENTS WITH HIS ALL THE TIME. (4) Bipolar disorder Onset Date: 02/23/18 Current Visit: No Status: Chronic Qualifiers: Current bipolar episode type: depressed Current episode severity: moderate (5) Leg injury Current Visit: Yes Status: Acute Plan: HE HAS FOOT DROP SINCE HE INJURED HIS LEG AT HOME. HE WILL NEED PT. CONSULT REHAB ALSO. Qualifiers: Laterality: left
[2021-12-23] MEDS ORDERED: SOD POLYSTYREN SUL 15 GM/60 ML UCUP PO ONE (18:00)
--- NOTE | 2021-12-23 20:03 | RAD REPORT ---
EXAM DESCRIPTION: US - Renal Ultrasound-Complete - 12/23/2021 7:55 pm CLINICAL HISTORY: nina , [id number] Flank pain COMPARISON: Renal Ultrasound-Complete dated 06/28/2021 FINDINGS: Significantly elevated echogenicity of the kidneys noted. Benign bilateral renal cysts. The right kidney measures 11.1 x 5.7 x 5.4 cm. No hydronephrosis, focal mass or perinephric fluid. The left kidney measures 10.7 x 5.8 x 4.7 cm. No hydronephrosis, focal mass or perinephric fluid. The urinary bladder is incompletely distended without gross abnormality seen. Prostate gland is enlar ged and projects into the bladder base. IMPRESSION: Increased renal echogenicity is seen compatible with medical renal disease. Prostate is enlarged and projects into the bladder base.
[2021-12-23 20:23] LABS: Potassium 4.3 mmol/L (3.5-5.1)
[2021-12-23] MEDS ORDERED: RIVAROXABAN 15 MG TABLET PO SCH (21:00)
[2021-12-23] MEDS: MIRTAZAPINE 15 MG TAB PO SCH (21:35)
[2021-12-23] MEDS: DIVALPROEX ER 250 MG TAB PO SCH (21:35)
--- NOTE | 2021-12-23 23:24 | CON ---
Date of Consultation: 12/23/2021 Chief Complaint: Acute on chronic kidney injury. History Of Present Illness: The patient has chronic kidney disease stage 4. Recently, he was admitted for volume depletion and nonoliguric ATN with history of advanced chronic kidney disease stage 4, current admission is for acute kidney injury and volume depletion. The patient although was found to have peripheral vascular disease and Cardiology consultation was requested. Cardiology is recommending conservative treatment. The patient is complaining of generalized weakness and he fell in the bathroom. He has weakness of the left lower extremities. He is complaining of pain, but denies bleeding or oozing. The patient has multiple medical problems including history of advanced chronic kidney disease stage 4 due to benign nephrosclerosis, peripheral neuropathy, hypertension, hypertensive heart and kidney disease, obstructive sleep apnea. Review of Systems: General: Denies fever or chills. Eyes: Denies vision changes. Ears, Nose, Mouth, and Throat: Denies sore throat or earache. Respiratory: Denies PND or orthopnea. Cardiovascular: Jose chest pain or palpitation. GI: Denies nausea or vomiting. : Denies dysuria or hematuria. Musculoskeletal: He is complaining of lower extremity pain and weakness. All other systems reviewed and all are negative. Past Medical History: Coronary artery disease status post CABG, bipolar disorder, chronic pain of lower back, hypertension, hyperlipidemia, insomnia, obstructive sleep apnea, colon polyps, GERD, cholecystectomy, knee surgery, chronic kidney disease stage 4 due to benign nephrosclerosis. Family History: Mother, heart disease. Father, pancreatic cancer. Social History: The patient denies tobacco, alcohol, or illicit drugs. Physical Examination: General: The patient is awake, alert. Follows commands. Eyes: Anicteric sclerae. EOMI. Ear, Nose, Mouth, and Throat: Oral mucosa moist. No pallor. Neck: Supple. No bruits. Lungs: Clear to auscultation bilaterally. Heart: S1, S2. Abdomen: Soft, benign. Extremities: No oozing, no edema, no clubbing, no cyanosis. Laboratory Data: WBC 6.4, hemoglobin 11.8, platelet count 144,000. Creatinine 4.27, glucose 92, potassium 5, BUN 54, sodium 139, magnesium 2.5. Impression And Plan: 1. The patient has multiple medical problems. He has chronic kidney disease stage 4. He developed severe nonoliguric acute on chronic kidney failure. Continue IV fluids resuscitation to prevent hypovolemia and treat acute kidney injury. Monitor renal panel, check UA to rule out any evidence of abnormal urinary sediment and to screen for nephritis. 2. Peripheral vascular disease. Treatment was recommended with medication by systems test analyst. Check CK level to rule out rhabdomyolysis 3. Status post fall. Workup per primary team. Check CK level. 4. History of BPH. Check renal ultrasound to rule out bladder outlet obstruction and hydronephrosis. Check urinalysis to screen for any evidence of active urinary sediment and scree for proteinuria. EB/MODL Voice ID: [id number] Report ID: [id number] KERI
[2021-12-24] MEDS: NACHLORIDE 0.45% 1,000 ML IV SCH ×5 (00:08→15:59)
[2021-12-24 03:28] LABS: Urine Appearance CLEAR (Clear); Urine Bilirubin NEGATIVE (Negative); Urine Blood 3+ (Negative); Urine Color YELLOW (Yellow); Urine Glucose NEGATIVE (Negative); Urine Protein 2+ (Negative); Urine pH 6.5 (5.0-7.0)
[2021-12-24 03:42] LABS: Urine Bacteria <20 /HPF (NONE SEEN)
[2021-12-24 03:43] LABS: Urine Mucus 1+ /HPF (NONE SEEN)
[2021-12-24] MEDS: METOPROLOL TAR 25 MG TAB PO SCH ×2 (05:03→17:39)
[2021-12-24 06:48] LABS: MPV 6.9 fL (7.6-11.3)
[2021-12-24] MEDS: ATORVASTATIN 10 MG TAB PO SCH (09:06)
[2021-12-24] MEDS: SERTRALINE HCL 100 MG TAB PO SCH (09:06)
[2021-12-24] MEDS: CALCITROL 0.25 MCG CAP PO SCH (09:06)
[2021-12-24] MEDS: TAMSULOSIN 0.4 MG SR CAP PO SCH (09:07)
[2021-12-24] MEDS: AMLODIPINE 10 MG TAB PO SCH (09:07)
[2021-12-24] MEDS: buPROPion HCL 100 MG TAB PO SCH (09:07)
[2021-12-24] MEDS: cloNIDine HCL 0.1 MG TAB PO SCH ×3 (09:07→21:41)
[2021-12-24] MEDS: PENTOXIFYLLINE ER 400 MG TAB PO SCH ×2 (09:08→19:49)
[2021-12-24] MEDS: GABAPENTIN 100 MG CAP PO SCH ×3 (09:08→19:49)
[2021-12-24] MEDS: ASPIRIN EC 81 MG TAB PO SCH (09:08)
[2021-12-24] MEDS: FINASTERIDE 5 MG TAB PO SCH (09:08)
[2021-12-24] MEDS: ENOXAPARIN 30 MG/0.3 ML SQ SCH (09:09)
[2021-12-24] MEDS: FAMOTIDINE 20 MG TAB PO SCH (09:09)
--- NOTE | 2021-12-24 12:55 | P.PN ---
Subjective Date of Service: 12/24/21 Chief Complaint: WEAK, FALLEN Subjective: Improving HIS LEG IS LOT WARMER TODAY ON L SIDE. HE STILL HAS FOOT DROP AND NOT ABLE TO WORK. I HAVE ASKED HIM TO QUIT WORKING. HE WORKS FOR [employer]. HE IS MORE AWAKE. TALKED TO . SHE AGREES HE QUITS DRINKING WATER AND GETS DEHYDRATED. HE NOW HS LEG AND FOOT INJURY. Physical Examination - Vital Signs Temperature: 98.6 F Blood Pressure: 125/71 Pulse: 83 Respirations: 16 Pulse Ox (%): 95 - Physical Exam General: Oriented x2, Mild distress, Moderate distress HEENT: Atraumatic, PERRLA, EOMI Neck: Supple, JVD not distended Respiratory: Clear to auscultation bilaterally, Normal air movement Cardiovascular: Regular rate/rhythm, Normal S1 S2 Gastrointestinal: Normal bowel sounds, No tenderness Musculoskeletal: No tenderness, Other Integumentary: No rashes Neurological: Normal speech, Normal tone, Normal affect Lymphatics: No axilla or inguinal lymphadenopathy - Studies Medications List Reviewed: Yes Assessment And Plan - Current Problems (Diagnosis) (1) PVD (peripheral vascular disease) Current Visit: Yes Status: Acute Plan: HE IS A CHRONIC SMOKER AND HAS NOT WANTED TO QUIT SMOKING. PVD IS A RESULT OF IT. WE CAN'T DO ANGIOGRAM PATIENT HAS SEVERE RENAL FAILURE. DR. MARADIAGA CONSULTED (2) Chronic renal failure Current Visit: No Status: Chronic Qualifiers: Chronic kidney disease stage: stage 4 (severe) Qualified Code(s): N18.4 - Chronic kidney disease, stage 4 (severe) (3) Renal failure (ARF), acute on chronic Current Visit: No Status: Acute Plan: START IV FLUIDS. HE NEEDS THIS EVERY FEW WEEKS. HE QUITS DRINKING WATER. HE HAS BIPOLAR DISEASE AND ALSO HAS ARGUMENTS WITH HIS ALL THE TIME. DAILY LAB. CONT IV FLUIDS. DR ARORA SAW HIM. (4) Bipolar disorder Onset Date: 02/23/18 Current Visit: No Status: Chronic Qualifiers: Current bipolar episode type: depressed Current episode severity: moderate (5) Leg injury Current Visit: Yes Status: Acute Plan: HE HAS FOOT DROP SINCE HE INJURED HIS LEG AT HOME. HE WILL NEED PT. CONSULT REHAB ALSO. Qualifiers: Laterality: left
--- NOTE | 2021-12-24 15:30 | PN ---
Date of Progress Note: 12/24/2021 Subjective: The patient was admitted to the hospital with fall. Had acute kidney injury on advanced chronic kidney disease. The patient was started on hydration. Kidney function started being improv ing, getting closer to his baseline 3.4. Physical Examination: Vital Signs: When I saw the patient; blood pressure 125/71, pulse of 83, afebrile. The patient had good urine output, voiding. Chest: Clear to auscultation. Heart: S1, S2. Systolic murmur. Abdomen: Soft, nontender. Extremities: No edema. Neuro: Alert. No focality. Current Medications: The patient on include; 1.Aspirin. 2.Flomax. 3.Amlodipine 10 mg. 4.Clonidine 0.1 t.i.d. 5.Metoprolol. 6.Gabapentin. 7.Zoloft. 8.Pepcid. 9.Finasteride. 10.Normal saline at 125 per hour. Assessment And Plan: 1.Acute kidney injury, normal sized kidney, secondary to prerenal, on the recovery phase. The patie nt got closer to his baseline, looked to me euvolemic. I am going to go ahead and decrease IV fluid to 75 per hour and we will continue to monitor the patient. 2.Chronic kidney disease with acute kidney injury as above. The patient back close to his baseline. We will decrease IV fluid as above. 3.Hypertension, controlled, optimal. Continue current medication. 4.Hyperkalemia secondary to renal failure, superimposed with PERRY inhibitor. Keep holding PERRY inhibi tor. Continue hydration. 5.Hypertension with the presence of acute kidney injury. Keep holding PERRY inhibitor. ODELL/POONAML Voice ID: [id number] Report ID: [id number]
[2021-12-24] MEDS: MIRTAZAPINE 15 MG TAB PO SCH (19:48)
[2021-12-24] MEDS: DIVALPROEX ER 250 MG TAB PO SCH (19:49)
[2021-12-25] MEDS: NACHLORIDE 0.45% 1,000 ML IV SCH (05:57)
[2021-12-25] MEDS: METOPROLOL TAR 25 MG TAB PO SCH ×2 (05:57→18:28)
[2021-12-25 06:36] LABS: MPV 7.3 fL (7.6-11.3)
[2021-12-25 08:15] LABS: Phosphorus 3.9 mg/dL (2.5-4.9)
[2021-12-25] MEDS: SERTRALINE HCL 100 MG TAB PO SCH (09:02)
[2021-12-25] MEDS: CALCITROL 0.25 MCG CAP PO SCH (09:02)
[2021-12-25] MEDS: buPROPion HCL 100 MG TAB PO SCH (09:02)
[2021-12-25] MEDS: ATORVASTATIN 10 MG TAB PO SCH (09:02)
[2021-12-25] MEDS: cloNIDine HCL 0.1 MG TAB PO SCH ×3 (09:02→20:25)
[2021-12-25] MEDS: AMLODIPINE 10 MG TAB PO SCH (09:02)
[2021-12-25] MEDS: FINASTERIDE 5 MG TAB PO SCH (09:02)
[2021-12-25] MEDS: TAMSULOSIN 0.4 MG SR CAP PO SCH (09:02)
[2021-12-25] MEDS: ASPIRIN EC 81 MG TAB PO SCH (09:02)
[2021-12-25] MEDS: GABAPENTIN 100 MG CAP PO SCH ×3 (09:02→20:24)
[2021-12-25] MEDS: FAMOTIDINE 20 MG TAB PO SCH (09:03)
[2021-12-25] MEDS: ENOXAPARIN 30 MG/0.3 ML SQ SCH (09:03)
[2021-12-25] MEDS: PENTOXIFYLLINE ER 400 MG TAB PO SCH ×2 (09:03→20:25)
[2021-12-25 10:54] LABS: Potassium 3.3 mmol/L (3.5-5.1)
[2021-12-25] MEDS ORDERED: KCL 20 MEQ/100 mL IVPB 20 MEQ/100 ML BAG IV SCH (12:00)
--- NOTE | 2021-12-25 12:03 | P.PN ---
Subjective Date of Service: 12/25/21 Chief Complaint: WEAK, FALLEN Subjective: Improving HIS LEG IS LOT WARMER TODAY ON L SIDE. HE STILL HAS FOOT DROP AND NOT ABLE TO WORK. I HAVE ASKED HIM TO QUIT WORKING. HE WORKS FOR [employer]. HE IS MORE AWAKE. TALKED TO . SHE AGREES HE QUITS DRINKING WATER AND GETS DEHYDRATED. HE NOW HS LEG AND FOOT INJURY. HE IS LOT BETTER BUT STILL NOT ABLE TO PUT WEIGHT ON THE LEG THAT HE INJURED. DR ALLEN WILL SEE THE PATIENT. Physical Examination - Vital Signs Temperature: 97.6 F Blood Pressure: 140/65 Pulse: 73 Respirations: 18 Pulse Ox (%): 97 - Physical Exam General: Mild distress HEENT: Atraumatic, PERRLA, EOMI Neck: Supple, JVD not distended Respiratory: Clear to auscultation bilaterally, Normal air movement Cardiovascular: Regular rate/rhythm, Normal S1 S2 Gastrointestinal: Normal bowel sounds, No tenderness Musculoskeletal: No tenderness Integumentary: No rashes, Other (L SIDE LEG HAS SOME DENUDED SKIN FROM INJURY HE HAD WITH FALL A SAMMIE. ) Neurological: Normal speech, Normal tone, Normal affect, Abnormal strength (L FO OT DROP. ) Lymphatics: No axilla or inguinal lymphadenopathy - Studies Medications List Reviewed: Yes Assessment And Plan - Current Problems (Diagnosis) (1) PVD (peripheral vascular disease) Current Visit: Yes Status: Acute Plan: HE IS A CHRONIC SMOKER AND HAS NOT WANTED TO QUIT SMOKING. PVD IS A RESULT OF IT. WE CAN'T DO ANGIOGRAM PATIENT HAS SEVERE RENAL FAILURE. DR. MARADIAGA CONSULTED (2) Chronic renal failure Current Visit: No Status: Chronic Qualifiers: Chronic kidney disease stage: stage 4 (severe) Qualified Code(s): N18.4 - Chronic kidney disease, stage 4 (severe) (3) Renal failure (ARF), acute on chronic Current Visit: No Status: Acute Plan: START IV FLUIDS. HE NEEDS THIS EVERY FEW WEEKS. HE QUITS DRINKING WATER. HE HAS BIPOLAR DISEASE AND ALSO HAS ARGUMENTS WITH HIS ALL THE TIME. DAILY LAB. CONT IV FLUIDS. DR ARORA SAW HIM. (4) Bipolar disorder Onset Date: 02/23/18 Current Visit: No Status: Chronic Qualifiers: Current bipolar episode type: depressed Current episode severity: moderate (5) Leg injury Current Visit: Yes Status: Acute Plan: HE HAS FOOT DROP SINCE HE INJURED HIS LEG AT HOME. HE WILL NEED PT. CONSULT REHAB ALSO. CLEAN WITH SALINE AND DRESS DAILY. HE HAS PVD AND WILL NOT RECOVER WELL. DR CERVANTES CAN'T DO ANGIOGRAM HE HAS SEVER CKD. Qualifiers: Laterality: left
--- NOTE | 2021-12-25 15:42 | PN ---
Date of Progress Note: 12/25/2021 Subjective: The patient was admitted with acute kidney injury, hyperkalemia. His acute kidney injur y was prerenal. The patient was started on hydration. Kidney function gradually started trending do wn, getting closer to his baseline. According to the patient, the patient eating well. No nausea. No vomiting. Yesterday, we tapered down the IV fluid. Physical Examination: Vital Signs: Blood pressure 133/69, pulse of 89, afebrile. The patient had good urine output, voidi ng. Chest: Clear to auscultation. Heart: S1, S2. Regular. Abdomen: Soft, nontender. No guarding or rebound. Extremities: Trace edema. Neurological: Alert, oriented x3. No focal. No tremor. Laboratory Data: WBC 8.1, H and H 11.3/33.2, platelet 157. Sodium 142, potassium 3.3, bicarb 21, BU N 47, creatinine 2.9, GFR up to 21, calcium 8.6, phosphorus 3.9. CK day before yesterday 4455. BNP 16,842. Albumin of 3. Renal ultrasound 11.1/10.7. No hydronephrosis, enlarged prostate. Urinalysi s, +2 protein. Current Medications: The patient on include; 1.Tylenol. 2.Amlodipine 10 mg. 3.Aspirin. 4.Wellbutrin. 5.Calcitriol 0.25. 6.Clonidine 0.1 t.i.d. 7.Finasteride. 8.Pepcid. 9.Zofran. 10.IV fluid. Assessment And Plan: 1.Acute kidney injury on chronic kidney disease, proteinuric, nonnephrotic, multifactorial secondary to prerenal, rhabdomyolysis. Kidney function back to close to his baseline. I am going to disconti nue IV fluid and we will monitor the patient. With the presence of the thrombocytopenia and anemia, I am going to send for serum protein electrophoresis. I will repeat CK. 2.Rhabdomyolysis secondary to dehydration. We will repeat CK, discontinue IV fluid as kidney functi on back to base line. 3.Hypertension, controlled, optimal. Continue current medication. Please continue to hold on any A CE inhibitor or ARB. 4.Hyperkalemia. On the presentation, the patient had hyperkalemia, currently hypo. I am going to r eplace cautiously and we will monitor the patient. DONN Voice ID: [id number] Report ID: [id number]
[2021-12-25] MEDS: DIVALPROEX ER 250 MG TAB PO SCH (20:25)
[2021-12-25] MEDS: MIRTAZAPINE 15 MG TAB PO SCH (20:25)
[2021-12-25 22:20] LABS: UR PROTEIN 90.9 mg/dL (<11.9); Urine Protein/Creatinine Ratio 1.78 ratio (<0.15)
--- NOTE | 2021-12-26 02:51 | CON ---
Date of Consultation: 12/25/2021 Reason For Consultation: Left foot and ankle pain. History Of Present Illness: Kavin is a 66-year-old male who presented to the hospital and was admitted for dehydration and a recent fall. He reports fall in the bathroom with increased pain to his left foot and ankle, as well as feelings of lower extremity feeling cold and tingly. He also reports weak ness of the left foot and ankle. Review of Systems: As above, otherwise negative. Past Medical History: Includes obstructive sleep apnea, chronic renal disease, pulmonary artery dise ase, bipolar disorder, hypertension, hyperlipidemia, GERD. Past Surgical History: Includes knee surgery, cholecystectomy, CABG. Medications: Per medication reconciliation form. Allergies: PHENERGAN AND THORAZINE. Social History: He denies tobacco, alcohol, or drug use. Physical Examination: General: In no apparent distress. HEENT: Normocephalic, atraumatic. NECK: Supple. Cardiovascular: Brisk capillary refill to all digits. Chest: Nonlabored breathing. Abdomen: Nondistended. Psychiatric: Responds to exam. Musculoskeletal: No tenderness over the medial malleolus or lateral malleolus. Sensation diminished over the dorsal and plantar surface of his foot. No significant active dorsiflexion of the ankle. Mild movement of his EHL. Assessment And Plan: Mr. Armijo is a 66-year-old male with a left foot drop and left foot-ankle cont usion. X-rays of the left ankle and foot were reviewed, which were negative for any fracture, disloc ation. Given his new onset of foot and ankle weakness, recommend neuro workup or EMG nerve conductio n studies to evaluate the level of his nerve dysfunction. He may be weightbearing as tolerated. If he continues to have weakness and footdrop, may consider obtaining an AFO to aid with his gait. He m ay follow up in my clinic as needed. CV/MODL Voice ID: [id number] Report ID: [id number]
[2021-12-26 05:51] LABS: Absolute Lymphocytes (CBC) 0.8 K/uL (0.7-4.9); Hematocrit 27.4 % (39.6-49.0); Lymphocytes % 3.5 % (15.3-44.8); MPV 7.3 fL (7.6-11.3); RBC Red Blood Cell Count 2.68 M/uL (4.33-5.43)
[2021-12-26] MEDS: METOPROLOL TAR 25 MG TAB PO SCH ×2 (06:05→17:17)
[2021-12-26 06:06] LABS: Albumin 1.8 g/dL (3.4-5.0); Magnesium 2.2 mg/dL (1.8-2.4); Phosphorus 2.9 mg/dL (2.5-4.9); Potassium 3.4 mmol/L (3.5-5.1)
[2021-12-26] MEDS ORDERED: POTASSIUM CL SA 10 MEQ TAB PO ONE (08:00)
[2021-12-26] MEDS: CALCITROL 0.25 MCG CAP PO SCH (08:31)
[2021-12-26] MEDS: buPROPion HCL 100 MG TAB PO SCH (08:31)
[2021-12-26] MEDS: ASPIRIN EC 81 MG TAB PO SCH (08:31)
[2021-12-26] MEDS: GABAPENTIN 100 MG CAP PO SCH ×3 (08:31→21:02)
[2021-12-26] MEDS: FINASTERIDE 5 MG TAB PO SCH (08:31)
[2021-12-26] MEDS: FAMOTIDINE 20 MG TAB PO SCH (08:31)
[2021-12-26] MEDS: PENTOXIFYLLINE ER 400 MG TAB PO SCH ×2 (08:32→21:02)
[2021-12-26] MEDS: ATORVASTATIN 10 MG TAB PO SCH (08:32)
[2021-12-26] MEDS: cloNIDine HCL 0.1 MG TAB PO SCH ×3 (08:32→21:00)
[2021-12-26] MEDS: AMLODIPINE 10 MG TAB PO SCH (08:32)
[2021-12-26] MEDS: TAMSULOSIN 0.4 MG SR CAP PO SCH (08:32)
[2021-12-26] MEDS: ENOXAPARIN 30 MG/0.3 ML SQ SCH (08:32)
[2021-12-26] MEDS: CEFTRIAXONE 1,000 MG in NA CHLORIDE 0.9% 50 ML IVPB SCH (08:33)
[2021-12-26] MEDS: SERTRALINE HCL 100 MG TAB PO SCH (08:35)
[2021-12-26 08:50] LABS: Anisocytosis 1+; Blood Morphology Comment NOTED (NOT SEEN); Macrocytosis 1+; Platelet Estimate ADEQ; White Blood Cell Scan OK (OK)
[2021-12-26 09:19] LABS: Urine Appearance CLEAR (Clear); Urine Bilirubin NEGATIVE (Negative); Urine Blood 3+ (Negative); Urine Color YELLOW (Yellow); Urine Glucose NEGATIVE (Negative); Urine Protein 1+ (Negative)
[2021-12-26 09:23] LABS: Urine Microscopic Reflex ORDER UMIC
--- NOTE | 2021-12-26 09:42 | RAD REPORT ---
EXAM DESCRIPTION: RAD - Chest Single View - 12/26/2021 9:12 am CLINICAL HISTORY: increased WBC COMPARISON: Portable 12/22/2021 TECHNIQUE: AP portable chest image was obtained 12/26/2021 9:12 am . FINDINGS: Lungs are clear. Interstitial pattern matches comparison. Sternotomy wires are in place. H eart and vasculature are normal. No measurable pleural effusion and no pneumothorax. No acute bony ab normality seen. No acute aortic findings suspected. No free air under the diaphragm. IMPRESSION: No acute cardiopulmonary process. No significant change from comparison study.
[2021-12-26] MEDS: MORPHINE 2 MG/ML SYR IV PRN (10:00)
[2021-12-26 10:13] LABS: Urine Bacteria <20 /HPF (NONE SEEN); Urine RBC <5 /HPF (NONE SEEN)
[2021-12-26 10:14] LABS: Urine Amorphous Sediment 1+ /HPF (NONE SEEN)
--- NOTE | 2021-12-26 13:23 | RAD REPORT ---
EXAM DESCRIPTION: MRI - Foot Left Wo Cont - 12/26/2021 1:04 pm CLINICAL HISTORY: Left foot drop. Foot swelling and pain COMPARISON: None TECHNIQUE: Axial, sagittal and coronal magnetic resonance imaging left foot FINDINGS: The bones demonstrate normal signal. Tendons appear intact. Plantar fascia is intact. Tarsal sinus demonstrates normal signal. Diffuse edema within the dorsal subcutaneous tissues of the foot and posterior subcutaneous tissues o f the ankle No significant fluid within the tendon sheaths. No significant joint effusion IMPRESSION: No evidence of osteomyelitis Edema within the subcutaneous tissues which may indicate a cellulitis
--- NOTE | 2021-12-26 14:50 | RAD REPORT ---
EXAM DESCRIPTION: MRI - Tib Fib Left Wo Cont - 12/26/2021 12:56 pm CLINICAL HISTORY: Foot drop. Leg pain and swelling COMPARISON: None. TECHNIQUE: Axial, sagittal coronal magnetic resonance imaging obtained from the proximal aspect of t he tibia/fibula to the ankle. FINDINGS: Tibia and fibula demonstrate normal signal. No significant abnormal signal within the muscles No significant abnormal signal seen within the tendons. No abscess noted. IMPRESSION: No evidence of osteomyelitis. No abscess visualized.
--- NOTE | 2021-12-26 15:12 | PN ---
Date of Progress Note: 12/26/2021 Subjective: The patient was admitted with acute kidney injury, foot infection, rhabdo. His acute kidney injury was prerenal, superimposed with rhabdo. The patient's after hydration kidney function started being improving. Physical Examination: Vital Signs: Blood pressure 142/74, pulse of 80, afebrile. The patient voiding well. Chest: Clear to auscultation. Heart S1, S2. Regular. Abdomen: Soft, nontender. Extremity: No edema. Dressing on the left leg and foot. Neurologic: Alert. No focality. Laboratory Data: WBC 23.4, H and H 9/27.4, platelets 239. Sodium 145, potassium 3.4, bicarb 23, BUN 49, creatinine 2.9, GFR of 21, calcium 9, phosphorus 2.9, magnesium 2.2. CK down to 1200, albumin 1.8. Corrected calcium is 10.6. PTH 136. Vitamin D still pending. Current Medications: The patient on include aspirin, ceftriaxone, Flomax, Lovenox 30, amlodipine 10 mg, atorvastatin, clonidine 0.1 three times a day, metoprolol 25 b.i.d., bupropion, gabapentin, Zoloft, Pepcid, and finasteride, KCl. Assessment And Plan: 1. Acute kidney injury secondary to prerenal, dehydration, superimposed with ARB, superimposed with rhabdomyolysis. Continued to recover, plateaued currently. We will continue to monitor off IV fluid. 2. Rhabdomyolysis, recovered, resolved. Keep holding IV fluid. 3. Hyperkalemia, resolved, currently hypokalemia. We will continue supplement. Hypomagnesemia has been ruled out. 4. Leukocytosis, possible foot infection. We will follow up with Surgery. We will follow up with primary. Time spent examining the patient, [id number] communicating with the patient and family, discussing the case with the nursing staff, reviewing the data including lab and radiology, placing order 35 minutes ODELL/SASHA Voice ID: [id number] Report ID: [id number]
--- NOTE | 2021-12-26 18:33 | CON ---
Date of Consultation: 12/26/2021 Reason For Consultation: Wound in left leg. History Of Present Illness: The patient is a 66-year-old gentleman, who was admitted on December 22 w ith dehydration and a recent fall because of a footdrop and he has peripheral vascular disease, but rikki perry is not a candidate for angiogram as he does have kidney issues as well. I have asked to evaluate t he wound. The patient states that the wound occurred after falling on the left lateral leg. No feve r or chills. No purulent discharge. There is some skin present and I was asked to evaluate. Rikki perry is awake and alert. No sore throat, runny nose, cough, headaches, or dizziness. No chest pain. N o fever or chills. Review of Systems: Otherwise unremarkable. Past Medical History: Significant for sleep apnea, chronic renal disease stage IV, coronary artery d isease, bipolar disorder, chronic pain, hypertension, hyperlipidemia, history of DVT in the right titus f, polyposis, GERD, tobacco abuse. Past Surgical History: CABG x3, cholecystectomy, knee surgery. Allergies: INCLUDE PHENERGAN AND THORAZINE. Social History: The patient does smoke. Does not drink alcohol. Has been counseled. Family History: Significant for father with pancreatic cancer, mother with heart disease and polycyt hemia. Physical Examination: Vital Signs: Stable. He is afebrile. General: He is awake, alert, and oriented x3. Head and Neck: Cranial nerves 2 through 12 are grossly within normal limits. No neck masses. No JV D. Throat clear. Neck is supple. Chest: Clear. Heart: S1, S2. Abdomen: Soft. Extremity: Diminished dorsalis pedis and posterior tibial pulses on the left side. Neuro: Nonfocal. On the left lateral leg, there is a large area of approximately 30 x 12 cm area of partial thickness wound with skin which was debrided at the bedside. After that was taken off, there was an area of 4 x 2 cm where it appeared to have deep tissue injury. There is no open wound per Se into the epidermis. There is no surrounding erythema, warmth. There was some edema, but it w as bilateral and appeared to be a systemic problem, not isolated to an infection. There is no eviden ce of impaction at all. Laboratory Data: Shows a white count of 23.4, on admission it was 8.1. Platelets are 239. H and H are 9 and 27.4, and there is a left shift. Coags are significant for INR of 0.91, PTT is 66.7. The patient is on heparin. Chemistries reviewed. His creatine kinase is elevated at 1271. His electrol ytes are significant for BUN at 49, creatinine of 2.96, potassium 3.4, albumin is 1.8. UA is negativ e except for blood. COVID is negative. Please note, on the physical exam, there was a definite left footdrop. The patient had a foot MRI as well as the lower extremity, tib-fib MRI. There was mild s ubcutaneous edema, but there is no abscess, no bony injury, no tendinous injury. Discussed with Dr. Woods. The remainder of the workup has been reviewed. The x-rays that the patient had done, none of them show any fractures. Assessment: Left leg wound in a patient with peripheral vascular disease. Recommendations: The patient is not a candidate for angiogram because of his kidney functions. We w ill manage him conservatively with regard to try to improve his circulation. He was advised on the i mportance of tobacco cessation. Part of the wound is concerned, we will treat it with Silvadene as t his is a partial-thickness wound at this time and we will monitor the deep tissue injury on the left lateral leg. He can [facility]. As far as the footdrop is concern, he may need a neurological evaluation. Plan of c are discussed with Dr. De Paz. /POONAML Voice ID: [id number] Report ID: [id number]
--- NOTE | 2021-12-26 20:56 | P.PN ---
Subjective Date of Service: 12/26/21 Chief Complaint: WEAK, FALLEN Subjective: Worsening HE HAS NO NEW COMPLAINTS EXCEPT FOR PAIN IN L LEG ON TOUCHING. HIS WBC COUNT HAS GONE UP TO 23K. Review of Systems 10-point ROS is otherwise unremarkable Physical Examination - Vital Signs Temperature: 97.8 F Blood Pressure: 97/54 Pulse: 65 Respirations: 17 Pulse Ox (%): 91 - Physical Exam General: Oriented x3, Mild distress HEENT: Atraumatic, PERRLA, EOMI Neck: Supple, JVD not distended Respiratory: Clear to auscultation bilaterally, Normal air movement Cardiovascular: Regular rate/rhythm, Normal S1 S2 Gastrointestinal: Normal bowel sounds, No tenderness Musculoskeletal: No tenderness, Other (TENDER L LEG. ) Integumentary: No rashes Neurological: Normal speech, Normal tone, Normal affect Lymphatics: No axilla or inguinal lymphadenopathy - Studies Medications List Reviewed: Yes Assessment And Plan - Current Problems (Diagnosis) (1) PVD (peripheral vascular disease) Current Visit: Yes Status: Acute Plan: HE IS A CHRONIC SMOKER AND HAS NOT WANTED TO QUIT SMOKING. PVD IS A RESULT OF IT. WE CAN'T DO ANGIOGRAM PATIENT HAS SEVERE RENAL FAILURE. DR. MARADIAGA CONSULTED (2) Chronic renal failure Current Visit: No Status: Chronic Qualifiers: Chronic kidney disease stage: stage 4 (severe) Qualified Code(s): N18.4 - Chronic kidney disease, stage 4 (severe) (3) Renal failure (ARF), acute on chronic Current Visit: No Status: Acute Plan: START IV FLUIDS. HE NEEDS THIS EVERY FEW WEEKS. HE QUITS DRINKING WATER. HE HAS BIPOLAR DISEASE AND ALSO HAS ARGUMENTS WITH HIS ALL THE TIME. DAILY LAB. CONT IV FLUIDS. DR ARORA SAW HIM. (4) Bipolar disorder Onset Date: 02/23/18 Current Visit: No Status: Chronic Qualifiers: Current bipolar episode type: depressed Current episode severity: moderate (5) Leg injury Current Visit: Yes Status: Acute Plan: HE HAS FOOT DROP SINCE HE INJURED HIS LEG AT HOME. HE WILL NEED PT. CONSULT REHAB ALSO. CLEAN WITH SALINE AND DRESS DAILY. HE HAS PVD AND WILL NOT RECOVER WELL. DR CERVANTES CAN'T DO ANGIOGRAM HE HAS SEVER CKD. Qualifiers: Laterality: left (6) Leukocytosis Current Visit: Yes Status: Acute Plan: I SEE NO SOURCE OF INFECTION EXCEPT FOR L LEG. IT IS TENDER HAS DENUDED SKIN BUT AGAIN NO INFLAMMATION. TENDERNESS IS FROM SEVERE PVD FROM SMOKING. I STARTED ABX AFTER CXR, BC 2 AND UA.
[2021-12-26] MEDS: DIVALPROEX ER 250 MG TAB PO SCH (21:02)
[2021-12-26] MEDS: MIRTAZAPINE 15 MG TAB PO SCH (21:02)
[2021-12-26 22:41] LABS: Absolute Lymphocytes (CBC) 0.9 K/uL (0.7-4.9); Hematocrit 24.7 % (39.6-49.0); Lymphocytes % 3.8 % (15.3-44.8); MPV 7.4 fL (7.6-11.3); RBC Red Blood Cell Count 2.41 M/uL (4.33-5.43)
[2021-12-27 06:08] LABS: Absolute Lymphocytes (CBC) 0.9 K/uL (0.7-4.9); Hematocrit 24.7 % (39.6-49.0); Lymphocytes % 3.6 % (15.3-44.8); MPV 7.1 fL (7.6-11.3); RBC Red Blood Cell Count 2.44 M/uL (4.33-5.43)
[2021-12-27 06:18] LABS: Albumin 1.7 g/dL (3.4-5.0); Phosphorus 2.5 mg/dL (2.5-4.9); Potassium 3.5 mmol/L (3.5-5.1)
[2021-12-27] MEDS: METOPROLOL TAR 25 MG TAB PO SCH ×2 (06:25→17:19)
--- NOTE | 2021-12-27 08:05 | P.PN ---
Subjective Date of Service: 12/27/21 Chief Complaint: WEAK, FALLEN Subjective: Other (Feels very weak.) Physical Examination - Vital Signs Temperature: 98.5 F Blood Pressure: 123/65 Pulse: 77 Respirations: 18 Pulse Ox (%): 91 - Physical Exam General: Other (Frail looking) HEENT: Atraumatic, Normocephalic Neck: Supple Respiratory: Other (symmetric chest expansion) Cardiovascular: No rubs, No murmurs Gastrointestinal: Soft and benign Musculoskeletal: No clubbing Integumentary: No warmth Neurological: Normal speech, Normal tone Urinary: Other (no bladder distention) External genitalia: Deferred Rectal: Deferred - Studies Medications List Reviewed: Yes Assessment And Plan - Plan 1. Acute kidney injury secondary to prerenal, dehydration, superimposed with ARB, superimposed with mild rhabdomyolysis. ROSS improving/plateaued. Egan po fluid intake 2. Htn. BP at goal. Cont current BP med regimen. 3. Hypokalemia. Improved. Monitor/KCl repletion prn. 4. Leukocytosis. CT C/A/P on 12/27 unrevealing. Possible LLE infection. Per other services. 5. Secondary hyperPTH. Cont Calcitriol.
[2021-12-27] MEDS: ENOXAPARIN 30 MG/0.3 ML SQ SCH (08:33)
[2021-12-27] MEDS: cloNIDine HCL 0.1 MG TAB PO SCH ×3 (08:33→23:53)
[2021-12-27] MEDS: CEFTRIAXONE 1,000 MG in NA CHLORIDE 0.9% 50 ML IVPB SCH (08:33)
[2021-12-27] MEDS: buPROPion HCL 100 MG TAB PO SCH ×2 (09:00→12:08)
[2021-12-27] MEDS: FAMOTIDINE 20 MG TAB PO SCH ×2 (09:00→12:08)
[2021-12-27] MEDS: CALCITROL 0.25 MCG CAP PO SCH ×2 (09:00→12:08)
[2021-12-27] MEDS: ASPIRIN EC 81 MG TAB PO SCH ×2 (09:00→12:06)
[2021-12-27] MEDS: SERTRALINE HCL 100 MG TAB PO SCH ×2 (09:00→12:09)
[2021-12-27] MEDS: PENTOXIFYLLINE ER 400 MG TAB PO SCH ×2 (09:00→23:57)
[2021-12-27] MEDS: ATORVASTATIN 10 MG TAB PO SCH ×2 (09:00→12:07)
[2021-12-27] MEDS: TAMSULOSIN 0.4 MG SR CAP PO SCH ×2 (09:00→12:06)
[2021-12-27] MEDS: GABAPENTIN 100 MG CAP PO SCH ×3 (09:00→23:52)
[2021-12-27] MEDS: FINASTERIDE 5 MG TAB PO SCH ×2 (09:00→12:07)
[2021-12-27] MEDS: POTASS/SODIUM PHOSPHATE 1 PKT POWD.PACK PO SCH ×3 (10:00→13:22)
--- NOTE | 2021-12-27 11:41 | RAD REPORT ---
EXAM DESCRIPTION: CTChest Abd Pelvis Wo Con - 12/27/2021 11:19 am CLINICAL HISTORY: elevated WBC COMPARISON: Chest Abd Pelvis Wo Con dated 11/29/2021; Thorax Wo Con dated 06/19/2020; Lung Cancer Scre ening CT W/O dated 01/10/2019; Stone Protocol dated 06/27/2021; Bone Imaging Whole Body dated 9; Abdomen Pelvis Wo Contrast dated 06/28/2019; Abdomen Exam Complete dated 06/20/2020; CT ABDOMEN P ALPESH WO CONTRAST dated 05/11/2012 TECHNIQUE: CT of the chest, abdomen, and pelvis was performed. All CT scans are performed using dose optimization technique as appropriate and may include automated exposure control or mA/KV adjustment according to patient size. FINDINGS: Thorax: Chest Wall: No abnormal mass Lungs: Scarring versus subsegmental atelectasis in the right and left lower lobe. No suspicious pulmo nary nodules. No acute findings otherwise identified in the lungs . Pleura: Small pleural effusions are present bilaterally. Glendy/Mediastinum: No lymphadenopathy. Aorta/Pulmonary Arteries: Unremarkable Heart: Multi-vessel coronary artery disease. Normal heart size. Abdomen/Pelvis: Liver: No acute abnormality or suspicious lesions. Biliary: Cholecystectomy Stomach: No significant focal abnormality. Duodenum: No significant focal abnormality. Pancreas: No significant abnormality. Spleen: No significant abnormality. Adrenal: No suspicious lesions. Kidney/ureter: Intermediate attenuation left lower pole ovoid lesion measuring 2.8 cm at. This is not significantly changed since 06/28/2019. Other renal lesions also noted which are similar to prior. S tatistically, these lesions are benign. Nephrolithiasis versus renal vascular calcifications. The lat ter is favored. Retroperitoneum: Rounded 13 mm structure in the aortocaval region. This may be a lymph node or saccul ar aneurysm. Vascular: See retroperitoneum above. Aortic atherosclerosis including iliac and femoral vessels which are ectatic. Bowel: No significant focal abnormality. Peritoneum: Trace free fluid . Bladder: Mild circumferential bladder wall thickening. This may be related to chronic bladder outlet obstruction. Reproductive: No adnexal masses. Bones: No acute fracture. Sternotomy. Multilevel degenerative changes are present in the spine. Other: n/a IMPRESSION: 1. No specific CT findings within the chest, abdomen, or pelvis to explain elevated whit e blood cell count. 2. Mild circumferential bladder wall thickening which may be related to chronic bladder outlet obstru ction. Correlate with urinalysis to exclude cystitis. 3. Aortocaval lymph node versus saccular abdominal aortic aneurysm. Assuming the patient cannot have CT or MRI contrast, a noncontrast MRI/MRA may be able to distinguish.
[2021-12-27] MEDS: SILVER SULFADIAZINE 1% 25 GM TOP SCH ×2 (12:05→12:06)
--- NOTE | 2021-12-27 15:29 | P.PN ---
Subjective Date of Service: 12/27/21 Chief Complaint: WEAK, FALLEN Subjective: Improving HE HAS NO NEW COMPLAINTS EXCEPT FOR PAIN IN L LEG ON TOUCHING. HIS WBC COUNT HAS GONE UP TO 23K. MR MENDEZ HAS NO COMPLAINTS. HE FEELS OKAY. HE TOLD ME HE WALKED BUT ROSIO NOT SURE. HE HAS NO COUGH, DYSPNEA, ABDOMEN PAIN DIARRHEA ETC. Review of Systems 10-point ROS is otherwise unremarkable General: Weakness Physical Examination - Vital Signs Temperature: 97.6 F Blood Pressure: 112/56 Pulse: 84 Respirations: 18 Pulse Ox (%): 97 - Physical Exam General: Mild distress HEENT: Atraumatic, PERRLA, EOMI Neck: Supple, JVD not distended Respiratory: Clear to auscultation bilaterally, Normal air movement Cardiovascular: Regular rate/rhythm, Normal S1 S2 Gastrointestinal: Normal bowel sounds, No tenderness Musculoskeletal: No tenderness Integumentary: No rashes Neurological: Normal speech, Normal tone, Normal affect Lymphatics: No axilla or inguinal lymphadenopathy - Studies Medications List Reviewed: Yes Assessment And Plan - Current Problems (Diagnosis) (1) PVD (peripheral vascular disease) Current Visit: Yes Status: Acute Plan: HE IS A CHRONIC SMOKER AND HAS NOT WANTED TO QUIT SMOKING. PVD IS A RESULT OF IT. WE CAN'T DO ANGIOGRAM PATIENT HAS SEVERE RENAL FAILURE. DR. MARADIAGA CONSULTED (2) Chronic renal failure Current Visit: No Status: Chronic Qualifiers: Chronic kidney disease stage: stage 4 (severe) Qualified Code(s): N18.4 - Chronic kidney disease, stage 4 (severe) (3) Renal failure (ARF), acute on chronic Current Visit: No Status: Acute Plan: START IV FLUIDS. HE NEEDS THIS EVERY FEW WEEKS. HE QUITS DRINKING WATER. HE HAS BIPOLAR DISEASE AND ALSO HAS ARGUMENTS WITH HIS ALL THE TIME. DAILY LAB. CONT IV FLUIDS. DR ARORA SAW HIM. (4) Bipolar disorder Onset Date: 02/23/18 Current Visit: No Status: Chronic Qualifiers: Current bipolar episode type: depressed Current episode severity: moderate (5) Leg injury Current Visit: Yes Status: Acute Plan: HE HAS FOOT DROP SINCE HE INJURED HIS LEG AT HOME. HE WILL NEED PT. CONSULT REHAB ALSO. CLEAN WITH SALINE AND DRESS DAILY. HE HAS PVD AND WILL NOT RECOVER WELL. DR CERVANTES CAN'T DO ANGIOGRAM HE HAS SEVER CKD. THIS IS THE ONLY AREA I SEE WHERE INFECTION MAY BE COMING FROM BUT FOCALLY THERE ARE NO SIGNS. WBC IS HIGH. WILL DO LAB DAILY. Qualifiers: Laterality: left (6) Leukocytosis Current Visit: Yes Status: Acute Plan: I SEE NO SOURCE OF INFECTION EXCEPT FOR L LEG. IT IS TENDER HAS DENUDED SKIN BUT AGAIN NO INFLAMMATION. TENDERNESS IS FROM SEVERE PVD FROM SMOKING. I STARTED ABX AFTER CXR, BC 2 AND UA.
[2021-12-27] MEDS: MORPHINE 2 MG/ML SYR IV PRN (16:07)
[2021-12-27] MEDS: MIRTAZAPINE 15 MG TAB PO SCH (23:54)
[2021-12-27] MEDS: DIVALPROEX ER 250 MG TAB PO SCH (23:55)
[2021-12-28 04:09] LABS: Lymphocytes % 4.1 % (15.3-44.8); MPV 7.7 fL (7.6-11.3); RBC Red Blood Cell Count 2.65 M/uL (4.33-5.43)
[2021-12-28 04:23] LABS: Albumin 1.9 g/dL (3.4-5.0); Potassium 3.6 mmol/L (3.5-5.1)
[2021-12-28] MEDS: METOPROLOL TAR 25 MG TAB PO SCH (06:07)
[2021-12-28 08:53] VITALS: O2SAT 99
[2021-12-28] MEDS: CEFTRIAXONE 1,000 MG in NA CHLORIDE 0.9% 50 ML IVPB SCH (09:51)
[2021-12-28] MEDS: PENTOXIFYLLINE ER 400 MG TAB PO SCH (09:52)
[2021-12-28] MEDS: ENOXAPARIN 30 MG/0.3 ML SQ SCH (09:52)
[2021-12-28] MEDS: FAMOTIDINE 20 MG TAB PO SCH (09:52)
[2021-12-28] MEDS: ASPIRIN EC 81 MG TAB PO SCH (09:52)
[2021-12-28] MEDS: buPROPion HCL 100 MG TAB PO SCH (09:52)
[2021-12-28] MEDS: cloNIDine HCL 0.1 MG TAB PO SCH ×2 (09:53→13:50)
[2021-12-28] MEDS: ATORVASTATIN 10 MG TAB PO SCH (09:53)
[2021-12-28] MEDS: SERTRALINE HCL 100 MG TAB PO SCH (09:53)
[2021-12-28] MEDS: GABAPENTIN 100 MG CAP PO SCH ×2 (09:53→13:59)
[2021-12-28] MEDS: TAMSULOSIN 0.4 MG SR CAP PO SCH (09:53)
[2021-12-28] MEDS: FINASTERIDE 5 MG TAB PO SCH (09:53)
[2021-12-28] MEDS: CALCITROL 0.25 MCG CAP PO SCH (09:54)
[2021-12-28] MEDS: SILVER SULFADIAZINE 1% 25 GM TOP SCH (09:54)
[2021-12-28] MEDS: ACETAMINOPHEN 325 MG TABLET PO PRN ×2 (09:55→16:38)
[2021-12-28] MEDS ORDERED: VANCOMYCIN 1 GM in NA CHLORIDE 0.9% 250 ML IVPB SCH ×2 (10:00→11:00)
--- NOTE | 2021-12-28 10:56 | P.DS ---
Admission Date: 12/22/21 Discharge Date: 12/28/21 Disposition: TRANSFER TO [facility] Discharge Condition: SERIOUS Reason for Admission: WEAK, FALLEN - Problems (1) PVD (peripheral vascular disease) Current Visit: Yes Status: Acute (2) Chronic renal failure Current Visit: No Status: Chronic Qualifiers: Chronic kidney disease stage: stage 4 (severe) Qualified Code(s): N18.4 - Chronic kidney disease, stage 4 (severe) (3) Renal failure (ARF), acute on chronic Current Visit: No Status: Acute (4) Bipolar disorder Onset Date: 02/23/18 Current Visit: No Status: Chronic Qualifiers: Current bipolar episode type: depressed Current episode severity: moderate (5) Leg injury Current Visit: Yes Status: Acute Qualifiers: Laterality: left (6) Leukocytosis Current Visit: Yes Status: Acute Brief History of Present Illness: MR. MENDEZ HAS RECURRENT ADMISSIONS FOR DEHYDRATION WITH HIS CHRONIC PSYCHIATRI ISSUES HE DOES NOT DRINK ENOUGH WATER HE SHOULD. HE HAS BEEN TOLD TO DRINK AT LEAST 90 OZ OF WATER DAILY. ONCE AGAIN HE COMES WITH WEAKNESS, FALLS IN BATHROOM AND HAS FOCAL WEAKNESS OF L LEG. HE ALSO HAS PAIN THERE. Hospital Course: MR. MENDEZ FELL AT HOME , HAS L FOOT DROP AND SEVERE PVD ON BOTH SIDES FROM SMOKING. DR. MARADIAGA CAN'T DO ANGIOGRAM HE HAS CKD-4 ALSO. 3 DAYS AGO HIS WBC COUNT STARTED TO RISE. ON FURTHER EVALUATION ONLY SOURCE SEEMS TO BE THE L LEG THAT TODAY SMELLS NECROTIC ALSO. HE DID NOT HAVE CLINICAL SIGNS OF CELLULITIS IN THE REGION. HIS L LOWER LEG SKIN HAS PEELED OFF. I HAD DR. GOEL DO DEBRIDEMENT. L FOOT LATERALLY SHOWS YELLOW FIBRIN AND HAS NECROTIC SMELL. I AM CHANGING FROM [facility] TO MERREM AND VANCOMYCIN. DR. MANTILLA WILL TRANSFER HIM TO [facility] PER MY REQUEST HE WILL NEED CO2 ANGIOGRAM AND FURTHER STEPS TO SAVE HIS LEG. I TALKED TO HIM AND HIS TO EXPLAIN. THEY UNDERSTOOD. Vital Signs/Physical Exam: Temp Pulse Resp BP Pulse Ox 97.3 F 73 16 117/63 96 12/28/21 08:00 12/28/21 09:53 12/28/21 08:00 12/28/21 09:53 12/28/21 08:00 Laboratory Data at Discharge: WBC 25.0 K/uL (4.3-10.9) H* 12/28/21 03:20 Hgb 8.8 g/dL (13.6-17.9) L 12/28/21 03:20 Hct 27.0 % (39.6-49.0) L 12/28/21 03:20 Plt Count 266 K/uL (152-406) 12/28/21 03:20 PT 10.0 SECONDS (9.5-12.5) 12/22/21 12:08 INR 0.91 12/22/21 12:08 APTT 66.7 SECONDS (21.7-34.4) H 12/23/21 19:45 Sodium 145 mmol/L (136-145) 12/28/21 03:20 Potassium 3.6 mmol/L (3.5-5.1) 12/28/21 03:20 BUN 44 mg/dL (7-18) H 12/28/21 03:20 Creatinine 2.64 mg/dL (0.55-1.3) H 12/28/21 03:20 Glucose 108 mg/dL (74-106) H 12/28/21 03:20 Phosphorus 3.0 mg/dL (2.5-4.9) 12/28/21 03:20 Magnesium 2.0 mg/dL (1.8-2.4) 12/28/21 03:20 Total Bilirubin 0.7 mg/dL (0.2-1.0) 12/22/21 12:08 AST 409 U/L (15-37) H* 12/22/21 12:08 ALT 89 U/L (12-78) H 12/22/21 12:08 Alkaline Phosphatase 53 U/L (45-117) 12/22/21 12:08 Home Medications: Aspirin [Ecotrin 81 MG] 81 mg PO DAILY 06/19/20 Divalproex ER [Depakote *ER] 500 mg PO BEDTIME 06/19/20 Mirtazapine 7.5 mg PO BEDTIME 06/19/20 Sertraline [Zoloft*] 100 mg PO DAILY 06/19/20 calcitrioL [Rocaltrol] 0.25 mcg PO DAILY 06/19/20 Finasteride [Proscar*] 5 mg PO DAILY 11/29/21 Tamsulosin [Flomax*] 1 cap PO DAILY 11/29/21 Gabapentin [Neurontin*] 100 mg PO TID #90 cap 11/30/21 Bupropion HCl [Wellbutrin] 50 mg PO DAILY 12/02/21 cloNIDine HCL [Clonidine HCl] 1 tab PO TID 12/02/21 Amlodipine [Norvasc*] 10 mg PO DAILY 12/22/21 Atorvastatin Calcium [Lipitor*] 10 mg PO DAILY 12/22/21 Followup: Jose De Paz MD [Primary Care Provider] -
[2021-12-28] MEDS ORDERED: NA CHLORIDE 0.9% 1,000 ML IV SCH (11:00)
[2021-12-28] MEDS ORDERED: Meropenem 500 MG in NA CHLORIDE 0.9% 100 ML IV SCH (11:00)
--- NOTE | 2021-12-28 16:48 | PN ---
Date of Progress Note: 12/28/2021 Subjective: The patient was admitted with acute kidney injury on chronic kidney disease. The acute component was secondary to prerenal, superimposed with rhabdo and ARB. The patient on hydration . Physical Examination: Vital Signs: Blood pressure 117/63, pulse of 73, afebrile. Chest: Clear to auscultation. Heart: S1, S2. Regular. Abdomen: Soft, nontender. Extremities: Gangrene second and fourth toe. Eschar on the left leg. Neuro: Alert. No focality. Vascular: Decreased pulse on the left leg. Laboratory Data: WBC 25, H and H 8.8/27. Sodium 145, potassium 3.6, bicarb 25, BUN 44, creatinine 2.6, GFR 24, calcium 9.1, phosphorus 3.0, magnesium 2, albumin 1.9 corrected calcium is 10.7. Current Medications: The patient on include, 1. Flomax. 2. Atorvastatin. 3. Clonidine. 4. Metoprolol. 5. Gabapentin. 6. Zoloft. 7. Pepcid. Assessment And Plan: 1. Chronic kidney disease, stage IV, status post acute kidney injury, back to baseline. We will continue to monitor. 2. Acute kidney injury, multifactorial, secondary to prerenal, superimposed with mild rhabdo and ARB on the recovery phase. Continue to improve. Given the presence of ischemia, I am going to go ahead and resume IV fluid for the time being. 3. Hypertension, controlled optimal. Continue current treatment. 4. Rhabdomyolysis, recovered. Giving ischemia on the leg, resume IV fluid. 5. Ischemic leg. We will consult Vascular. We do not have that service with worsening leukocytosis. Discussed with Dr. De Paz. Recommended transfer. We will work on transfer to facility with vascular capability. The patient was started on meropenem and vancomycin. We will follow up. Follow up culture. Time spent examining the patient, [id number] communicating with the patient and family, discussing the case with the nursing staff, reviewing the data including lab and radiology, placing order 35 minutes DONN Voice ID: [id number] Report ID: [id number] [facility]
[2021-12-28 17:12] VITALS: BP 139/67; TEMP 97
[2021-12-29 05:17] LABS: Albumin, (SPE) 2.2 g/dL (3.8-4.8); Alpha-1-Globulins 0.7 g/dL (0.2-0.3); Alpha-2-Globulins 0.7 g/dL (0.5-0.9); Gamma Globulins 0.6 g/dL (0.8-1.7); INTERPRETATION REPORT
[2021-12-30 07:25] LABS: Vitamin D 1,25-Dihydroxy Total 22 pg/mL (18-72); Vitamin D,1,25-OH2, D2 <8 pg/mL
== END 2021-12-28 16:40 | disposition short-term general hospital (02) | DRG 683 ==
LOC: ER 11:00 → ERHOLD 14:55 → 2ND 19:18
PROVIDERS: ADMIT Internal Medicine; ATTEND Internal Medicine
DX: N17.9 Acute kidney failure, unspecified (principal); E44.0 Moderate protein-calorie malnutrition; M62.82 Rhabdomyolysis; I70.92 Chronic total occlusion of artery of the extremities; I12.9 Hypertensive chronic kidney disease with stage 1 through stage 4 chronic kidney disease, or unspecified chronic kidney disease; N18.4 Chronic kidney disease, stage 4 (severe); N25.81 Secondary hyperparathyroidism of renal origin; Z68.20 Body mass index [BMI] 20.0-20.9, adult; I70.203 Unspecified atherosclerosis of native arteries of extremities, bilateral legs; D72.829 Elevated white blood cell count, unspecified; M21.372 Foot drop, left foot; F31.9 Bipolar disorder, unspecified; S89.92XA Unspecified injury of left lower leg, initial encounter; W18.30XA Fall on same level, unspecified, initial encounter; Y92.009 Unspecified place in unspecified non-institutional (private) residence as the place of occurrence of the external cause; E87.6 Hypokalemia; I25.10 Atherosclerotic heart disease of native coronary artery without angina pectoris; E86.0 Dehydration; L08.9 Local infection of the skin and subcutaneous tissue, unspecified; E87.5 Hyperkalemia; F17.210 Nicotine dependence, cigarettes, uncomplicated; Z95.1 Presence of aortocoronary bypass graft; Z20.822 Contact with and (suspected) exposure to COVID-19
CPT/HCPCS: 36415; 71045; 71250; 74176; 76770; 80048; 80069; 80076; 81001; 81003; 81015; 82306; 82550; 82570; 82652; 83735; 83880; 83970; 84100; 84156; 84165; 84484; 85025; 85049; 85610; 85730; 86021; 87040; 93005; 93926; 96361; 96372; 96374; 96375; 97116; 97161; 97530; 99285; J1644; J1650; J2270; J2405; J3370; J3480; J3490; J7030; J7040; J7050; U0003

== ENCOUNTER 2022-05-09 18:31 | Inpatient (IN) | payer OTHER ==
--- OUTSIDE RECORDS SUMMARY | 2022-05-09 18:42 | XMS REPORT | Continuity of Care Document ---
:1955 Author Organization [facility] t Address [address] [place] [address] Dr. [address] [place] [address] Care Team Providers Name Role Phone LUIS AGUILERA Primary Care Physician UnavailLASHAWN Morocho Attending Clinician Unavailable Lashawn Watts MD Attending Clinician [phone] HECTOR MOYER Attending Clinician Unavailable YOGI MUNOZ Attending Clinician Unavailable Farnaz Trent MD Attending Clinician Yogi Munoz MD Attending Clinician [phone] FARNAZ TRENT Attending Clinician Unavailable Santhosh Barker MD Attending Clinician Jhony Padilla CRNA Attending Clinician [phone] Kuldip Liao Attending Clinician [address] ALVAREZ RATLIFF Attending Clinician Unavailable KNOW, DOES_NOT Attending Clinician Unavailable JOSSELYN ZAVALA Attending Clinician Unavailable Josselyn Zavala MD Attending Clinician Maycol Peace MD Attending Clinician Renzo Waller Attending Clinician Yulisa DAVENPORT, Live Amador Attending Clinician Gm Holden MD Attending Clinician YOGI MUNOZ Admitting Clinician Unavailable EVY, DR PINO Admitting Clinician Unavailable JOSSELYN ZAVALA Admitting Clinician Unavailable Payers Payer Name Policy Type Policy Number Effective Date Expiration Date Marion WANG MEDICARE [id number] 2021 00:00:00 0578 [id number] 1961 00:00:00 Problems Condition Condition Condition Status Onset Resolution Last Treating Co mments Source Name Details Category Date Date Treatment Clinician Date Tobacco Tobacco Disease Active [facility]12 [facility] disorder disorder 00:00: Medica l 00 [place] Moderate Moderate Disease Active [facility] protein-ca protein-ca 02-12 [place] k[place] g[place]z 00:00: Medical malnutriti malnutriti 00 Ce nter on on Infected Infected Disease [facility] Infected Infected Disease [facility] surgical surgical [facility]11 [facility] wound wound 00:00: Medical 00 Center S/P AKA S/P AKA Disease Active [facility] (above (above 02-11 knee knee 00:00: Medical amputation amputation 00 Ce nter ) ) unilateral unilateral , left , left Pseudomona Pseudomona Disease Active [facility] s 02-11 [facility] infection infection 00:00: Medi titus 00 Center Peripheral Peripheral Disease Active [facility] artery artery 02-11 [facility] disease disease 00:00: Medical 00 Center Stage 4 Stage [address] [facility] chronic chronic 02-06 [facility] kidney kidney 00:00: Medical disease disease 00 Center Memory Memory Disease Active [facility] changes changes 02-06 [facility] 00:[facility]: Medical 00 Center Urinary Urinary Disease Active [facility] incontinen incontinen 02-06 [facility] ce ce 00:00: Medical 00 [place] Gangrene Gangrene Disease Active [facility] 00:[facility] 00 [facility] Leg wound, Leg wound, Disease Active 2022-[address] left, left, 4-18 [facility] initial initial 00:00: Medical encounter encounter 00 Cent er Wound of Wound of Disease Active [facility] left ankle left ankle 4-18 [facility] k[facility] 00:00: Medical 00 Center Contusion Contusion Disease Active [facility] of second of second 4-18 [facility] toe of toe of 00:00: Medical left foot left foot 00 Cent er Peripheral Peripheral Disease Active [facility] vascular vascular 4-18 [facility] disease disease 00:00: Medical 00 Center Pain of Pain of Disease Active [facility] left leg left leg 4-18 [facility] 00:[facility]: Medical 00 Center Pain of Pain of Disease Active [facility] toe of toe of 4-18 [facility] left foot left foot 00:00: Medi titus 00 Center Contusion Contusion Disease Active [facility] of left of left 4-18 [facility] leg, leg, 00:00: Medical initial initial 00 Center encounter encounter Blister of Blister of Disease Active [facility] left leg left leg 4-18 [facility] without without 00:00: Medical infection infection 00 Cent er Skin ulcer Skin ulcer Disease Active [facility] of left of left 4-18 [facility] lower leg, lower leg, 00:00: Me dical limited to limited to 00 Ce nter breakdown breakdown of skin of skin Critical Critical Disease Active [facility] lower limb lower limb 4-16 [place] [facility] ischemia ischemia 00:00: Medica l 00 Center Bipolar 1 Bipolar [address] [facility] disorder disorder 6-12 [facility] 00:00: Medical 00 Center Allergies, Adverse Reactions, Alerts Allergy Allergy Status Severity Reaction(s) Onset Inactive Treating Comm ents Source Name Type Date Date Clinician CHLORPRO Allergy Active High Anaphylaxis [facility] MAZINE 4-16 [facility] 00:[facility]: Medical 00 Center PROMETHA Allergy Active High Anaphylaxis [facility] ZINE 4-16 [facility] (BULK) 00:00: Medical 00 [place] Prometha Propensi Active Anaphylaxis [address] [facility] zine ty to 4-16 [facility] (Bulk) adverse 00:00: Medical reaction 00 Center s Chlorpro Propensi Active Anaphylaxis 2021- [facility] mazine ty to 4-16 [facility] adverse 00:00: Medical reaction 00 Center s PROMETHA Allergy Active High Nausea 2005- [facility] ZINE 3- 00:00: 00 Prometha Drug Active Nausea Only 2005- Other [facility] zine Allergy 3- reaction( [facility] 00:00: s): Medical 00 Anaphylax Center is, Nausea/Vo miting, Unknown, Unknown Prometha DA Active Unknown [facility] Chlorpro DA Active Unknown [facility] Phenerga Adverse Active Info Not Commo n n Reaction Available [facility] - [facility] Social History Social Habit Start Date Stop Date Quantity Comments Source History [facility] Non-Med [facility] Center Alcohol intake 2022-03-13 2022-03-13 Ex-drinker [facility] es 00:00:00 00:00:00 (finding) Medical Center History [facility] 2022-02-12 2022-02-[address] [facility] Housing Unable to 00:00:00 00:00:00 Medical Center Pay History [facility] 2022-02-12 2022-02-[address] [facility] Housing Places 00:00:00 00:00:00 Medical Ce nter Lived History [facility] 2022-02-12 2022-02-[address] [facility] Homeless 00:00:00 00:00:00 Medical Center Last Year Exposure to 2021-11-29 2021-12-[address] [facility] SARS-CoV-2 (event) [facility] and 2021-12-29 2021-12-[address] [facility] [address] N[place]ka kes exposure 00:00:00 00:00:00 Medical Center History [facility] 2021-12-29 2021-12-[address] [facility] Transport Med 00:00:00 00:00:[address] Sex Assigned At [address] Nneka kes 00:00:00 00:00:00 Medical Center Smoking Status Start Date Stop Date Source Former smoker 2021-12-29 00:00:00 2021-12-29 00:00:00 [facility] Medications Ordered Filled Start Stop Current Ordering Indication Dosage Frequency Signature Comments Components Source Medication Medication Date Date Medication? Clinician (SIG) Name Name aspirin 81 Yes 81mg QD Take [address] MG EC 6-30 by mouth [facility] tablet 10:31: daily. Medical 07 [place] atorvastati Yes 10mg QD Take [address] n (LIPITOR) 6-30 by mouth Luke s 10 MG 10:31: daily. Medical tablet 07 [place] buPROPion Yes 50mg QD Take [address] (WELLBUTRIN 6-30 by mouth Luke s ) 100 MG 10:31: daily. Medical tablet 07 [place] divalproex Yes 500mg QD Take [address] (DEPAKOTE) 6-30 mg by [facility] 500 MG EC 10:31: mouth Medical tablet 07 nightly. [place] finasteride Yes 5mg QD Take [address] (PROSCAR) 5 6-30 by mouth Luke s mg tablet 10:31: daily. Medica l 07 [place] gabapentin Yes 100mg Q.[id number] Take [address] [facility] [address] (NEURONTIN) 6-30 [id number] mg by L ukes 100 MG 10:31: 3D mouth 3 Medical capsule 07 (three) Center times daily. mirtazapine Yes 7.5mg QD Take 7.[address] (REMERON) 6-30 mg by [facility] 7.5 MG 10:31: mouth Medical tablet 07 nightly. [place] sertraline Yes 100mg QD Take [address] (ZOLOFT) 6-30 mg by [facility] 100 MG 10:31: mouth Medical tablet 07 daily. [place] tamsulosin Yes .4mg QD Take 0.[address] [facility] (FLOMAX) 6-30 mg by [facility] 0.4 mg Cap 10:31: mouth Medica l 24 hr 07 daily. [place] capsule calcitrioL Yes .25ug QD Take 0.[address] (ROCALTROL) 6-30 mcg by [facility] 0.25 MCG 10:31: mouth Medical capsule 07 daily. [place] miscellaneo Yes Infected Please [facility] us medical 6-30 surgical discontinu [facility] supply Misc 00:00: wound e and Medi titus 00 remove Center PICC line and sutures. Apply steri-stri ps to the portals.. miscellaneo Yes Bedside [facility] medical 02-24 [facility] supply Misc 00:00: ndard Medic al 00 Wheelchair Center . meropenem 2021- No 500mg Inject [address] (MERREM) 02-20 06-30 mg [facility] 500 mg in 00:00: 23:59 intravenou M edical NS 100 mL 00 :00 sly every Cente r (V2B) IVPB 12 (twelve) hours for 21 days. miscellaneo 2021- No S/P AKA Patient [facility] medical 02-06 (above knee needs:- [facility] supply Misc 00:00: 00:00 amputation) [facility] Medical 00 :00 unilateral, Bed- Center left (HCC) Shower Transfer Bench- Narrow Transport- Elevated toilet seat- Bed side Commode- Wheel Chair Cushion : Gel Foam. doxycycline 2021- No S/P AKA 100mg Q.5D Take [address] [address] (DORYX) 100 02-06 (above knee tablet [facility] MG EC 00:00: 00:00 amputation) (100 mg M edical tablet 00 :00 unilateral, total) by C enter left (HCC) mouth 2 (two) times daily for 10 days. aspirin 81 Yes 81mg QD Take [address] MG EC 4-29 by mouth [facility] tablet 17:36: daily. Medical 27 [place] atorvastati Yes 10mg QD Take [address] n (LIPITOR) 4-29 by mouth Luke s 10 MG 17:36: daily. Medical tablet 27 Center buPROPion Yes 50mg QD Take [address] (WELLBUTRIN 4-29 by mouth Luke s ) 100 MG 17:36: daily. Medical tablet 27 Center divalproex Yes 500mg QD Take [address] (DEPAKOTE) 4-29 mg by [facility] 500 MG EC 17:36: mouth Medical tablet 27 nightly. [place] finasteride Yes 5mg QD Take [address] (PROSCAR) 5 4-29 by mouth Luke s mg tablet 17:36: daily. Medica l 27 Center gabapentin Yes 100mg Q.[id number] Take [address] (NEURONTIN) 4-29 [id number] mg by L ukes 100 MG 17:36: 3D mouth 3 Medical capsule 27 (three) Center times daily. mirtazapine Yes 7.5mg QD Take 7.[address] (REMERON) 4-29 mg by [facility] 7.5 MG 17:36: mouth Medical tablet 27 nightly. [place] sertraline Yes 100mg QD Take [address] (ZOLOFT) 4-29 mg by [facility] 100 MG 17:36: mouth Medical tablet 27 daily. [place] tamsulosin Yes .4mg QD Take 0.[address] [address] (FLOMAX) 4-29 mg by [facility] 0.4 mg Cap 17:36: mouth Medica l 24 hr 27 daily. [place] capsule calcitrioL Yes .25ug QD Take 0.[address] (ROCALTROL) 4-29 mcg by [facility] 0.25 MCG 17:36: mouth Medical capsule 27 daily. [place] amLODIPine 2021- No 10mg QD Take [address] [facility] (NORVASC) 4-29 04-29 by mouth [facility] 10 MG 11:04: 00:00 daily. Medical tablet 11 :00 [place] cloNIDine 2021- No .25mg Q.[id number] Take 0.[address] HCL 4-29 04-29 [id number] mg by [facility] (CATAPRES) 11:04: 00:00 3D mouth 3 Med ical 0.2 MG 11 :00 (three) Center tablet times daily. amLODIPine 2021- No 10mg QD Take [address] [facility] (NORVASC) 4-29 04-29 by mouth [facility] 10 MG 11:04: 00:00 daily. Medical tablet 11 :00 [place] cloNIDine 2021- No .25mg Q.[id number] Take 0.[address] HCL 4-29 04-29 [id number] mg by [facility] (CATAPRES) 11:04: 00:00 3D mouth 3 Med ical 0.2 MG 11 :00 (three) Center tablet times daily. sodium 2021- No 1300mg Q.[id number] Take [address] bicarbonate 01-10- [id number] tablets [facility] 650 MG 00:00: 23:59 3D (1,300 mg Medic al tablet 00 :00 total) by Center mouth 3 (three) times daily for 30 days. metoprolol 2021- No 25mg Q.5D Take [address] tartrate 01-10- tablet (25 [facility] (LOPRESSOR) 00:00: 23:59 mg total) Medical 25 MG 00 :00 by mouth 2 Center tablet (two) times daily for 30 days. sodium 2021-2021- No 1300mg Q.[id number] Take [address] bicarbonate 01-10- [id number] tablets [facility] 650 MG 00:00: 23:59 3D (1,300 mg Medic al tablet 00 :00 total) by Center mouth 3 (three) times daily for 30 days. metoprolol 2021-2021- No 25mg Q.5D Take [address] tartrate 01-10 tablet (25 [facility] (LOPRESSOR) 00:00: 23:59 mg total) Medical 25 MG 00 :00 by mouth 2 Center tablet (two) times daily for 30 days. docusate 2021-2021- No 100mg Take 1 [facility] sodium 01-10-09 capsule [facility] (COLACE) 00:00: 23:59 (100 mg Medic al 100 MG 00 :00 total) by Center capsule mouth 2 (two) times daily as needed for Constipati on for up to 10 days. clindamycin 2021-0 2021- No 300mg Q.[id number] Take [address] [facility] (CLEOCIN) 01-10-09 [id number] capsule [facility] 300 MG 00:00: 23:59 3D (300 mg Medical capsule 00 :00 total) by Center mouth 3 (three) times daily for 10 days. docusate 2021-0 2021- No 100mg Take 1 [facility] sodium 01-10 05-09 capsule [facility] (COLACE) 00:00: 23:59 (100 mg Medic al 100 MG 00 :00 total) by Center capsule mouth 2 (two) times daily as needed for Constipati on for up to 10 days. clindamycin 2021-0 2021- No 300mg Q.[id number] Take [address] (CLEOCIN) 4-29 05-09 [id number] capsule [facility] 300 MG 00:00: 23:59 3D (300 mg Medical capsule 00 :00 total) by Center mouth 3 (three) times daily for 10 days. amLODIPine 0 Yes 10mg QD Take [address] (NORVASC) 4-20 by mouth [facility] 10 MG 22:13: daily. Medical tablet 10 [place] aspirin 81 2021-0 Yes 81mg QD Take [address] MG EC 4-20 by mouth [facility] tablet 22:13: daily. Medical 10 [place] atorvastati 0 Yes 10mg QD Take [address] [facility] n (LIPITOR) 4-20 by mouth Luke s 10 MG 22:13: daily. Medical tablet 10 [place] buPROPion 0 Yes 50mg QD Take [address] (WELLBUTRIN 4-20 by mouth Luke s ) 100 MG 22:13: daily. Medical tablet 10 [place] divalproex 0 Yes 500mg QD Take [address] (DEPAKOTE) 4-20 mg by [facility] 500 MG EC 22:13: mouth Medical tablet 10 nightly. [place] finasteride 0 Yes 5mg QD Take [address] (PROSCAR) 5 4-20 by mouth Luke s mg tablet 22:13: daily. Medica l 10 [place] gabapentin 0 Yes 100mg Q.[id number] Take [address] (NEURONTIN) 4-20 [id number] mg by L ukes 100 MG 22:13: 3D mouth 3 Medical capsule 10 (three) Center times daily. mirtazapine 0 Yes 7.5mg QD Take 7.[address] (REMERON) 4-20 mg by [facility] 7.5 MG 22:13: mouth Medical tablet 10 nightly. [place] sertraline 0 Yes 100mg QD Take [address] (ZOLOFT) 4-20 mg by [facility] 100 MG 22:13: mouth Medical tablet 10 daily. [place] tamsulosin 0 Yes .4mg QD Take 0.[address] (FLOMAX) 4-20 mg by [facility] 0.4 mg Cap 22:13: mouth Medica l 24 hr 10 daily. [place] capsule calcitrioL 2022-0 Yes .25ug QD Take 0.[address] (ROCALTROL) 4-20 mcg by [facility] 0.25 MCG 22:13: mouth Medical capsule 10 daily. [place] cloNIDine Yes .25mg Q.[id number] Take 0.[address] HCL 4-20 [id number] mg by [facility] (CATAPRES) 22:13: 3D mouth 3 Medi titus 0.2 MG 10 (three) Center tablet times daily. amLODIPine Yes 10mg QD Take [address] (NORVASC) 4-20 by mouth [facility] 10 MG 22:13: daily. Medical tablet 10 [place] aspirin 81 Yes 81mg QD Take [address] MG EC 4-20 by mouth [facility] tablet 22:13: daily. Medical 10 [place] atorvastati Yes 10mg QD Take [address] [facility] n (LIPITOR) 4-20 by mouth Luke s 10 MG 22:13: daily. Medical tablet 10 [place] buPROPion Yes 50mg QD Take [address] (WELLBUTRIN 4-20 by mouth Luke s ) 100 MG 22:13: daily. Medical tablet 10 [place] divalproex Yes 500mg QD Take [address] (DEPAKOTE) 4-20 mg by [facility] 500 MG EC 22:13: mouth Medical tablet 10 nightly. [place] finasteride Yes 5mg QD Take [address] (PROSCAR) 5 4-20 by mouth Luke s mg tablet 22:13: daily. Medica l 10 [place] gabapentin Yes 100mg Q.[id number] Take [address] (NEURONTIN) 4-20 [id number] mg by L ukes 100 MG 22:13: 3D mouth 3 Medical capsule 10 (three) Center times daily. mirtazapine Yes 7.5mg QD Take 7.[address] (REMERON) 4-20 mg by [facility] 7.5 MG 22:13: mouth Medical tablet 10 nightly. [place] sertraline Yes 100mg QD Take [address] (ZOLOFT) 4-20 mg by [facility] 100 MG 22:13: mouth Medical tablet 10 daily. [place] tamsulosin Yes .4mg QD Take 0.[address] (FLOMAX) 4-20 mg by [facility] 0.4 mg Cap 22:13: mouth Medica l 24 hr 10 daily. [place] capsule calcitrioL Yes .25ug QD Take 0.[address] (ROCALTROL) 4-20 mcg by [facility]ukes 0.25 MCG 22:13: mouth Medical capsule 10 daily. [place] cloNIDine Yes .25mg Q.[id number] Take 0.[address] HCL 4-20 [id number] mg by [facility] (CATAPRES) 22:13: 3D mouth 3 Medi titus 0.2 MG 10 (three) Center tablet times daily. amLODIPine Yes 10mg QD Take [address] (NORVASC) 4-20 by mouth [facility] 10 MG 22:13: daily. Medical tablet 10 [place] aspirin 81 Yes 81mg QD Take [address] MG EC 4-20 by mouth [facility] tablet 22:13: daily. Medical 10 [place] atorvastati Yes 10mg QD Take [address] [address] n (LIPITOR) 4-20 by mouth Luke s 10 MG 22:13: daily. Medical tablet 10 [place] buPROPion Yes 50mg QD Take [address] (WELLBUTRIN 4-20 by mouth Luke s ) 100 MG 22:13: daily. Medical tablet 10 [place] divalproex Yes 500mg QD Take [address] (DEPAKOTE) 4-20 mg by [facility] 500 MG EC 22:13: mouth Medical tablet 10 nightly. [place] finasteride 0 Yes 5mg QD Take [address] (PROSCAR) 5 4-20 by mouth Luke s mg tablet 22:13: daily. Medica l 10 [place] gabapentin 0 Yes 100mg Q.[id number] Take [address] [address] (NEURONTIN) 4-20 [id number] mg by L ukes 100 MG 22:13: 3D mouth 3 Medical capsule 10 (three) Center times daily. mirtazapine 0 Yes 7.5mg QD Take 7.[address] (REMERON) 4-20 mg by [facility] 7.5 MG 22:13: mouth Medical tablet 10 nightly. [place] sertraline Yes 100mg QD Take [address] (ZOLOFT) 4-20 mg by [facility] 100 MG 22:13: mouth Medical tablet 10 daily. [place] tamsulosin Yes .4mg QD Take 0.[address] (FLOMAX) 4-20 mg by [facility] 0.4 mg Cap 22:13: mouth Medica l 24 hr 10 daily. [place] capsule calcitrioL Yes .25ug QD Take 0.[address] (ROCALTROL) 4-20 mcg by [facility]ukes 0.25 MCG 22:13: mouth Medical capsule 10 daily. [place] cloNIDine Yes .25mg Q.[id number] Take 0.[address] HCL 4-20 [id number] mg by [facility] (CATAPRES) 22:13: 3D mouth 3 Medi titus 0.2 MG 10 (three) Center tablet times daily. amLODIPine Yes 10mg QD Take [address] (NORVASC) 4-16 by mouth [facility] 10 MG 20:44: daily. Medical tablet 10 [place] aspirin 81 0 Yes 81mg QD Take [address] MG EC 4-16 by mouth [facility] tablet 20:44: daily. Medical 10 [place] atorvastati Yes 10mg QD Take [address] n (LIPITOR) 4-16 by mouth Luke s 10 MG 20:44: daily. Medical tablet 10 [place] buPROPion Yes 50mg QD Take [address] (WELLBUTRIN 4-16 by mouth Luke s ) 100 MG 20:44: daily. Medical tablet 10 [place] divalproex Yes 500mg QD Take [address] (DEPAKOTE) 4-16 mg by [facility] 500 MG EC 20:44: mouth Medical tablet 10 nightly. [place] finasteride 0 Yes 5mg QD Take [address] (PROSCAR) 5 4-16 by mouth Luke s mg tablet 20:44: daily. Medica l 10 [place] gabapentin 0 Yes 100mg Q.[id number] Take [address] (NEURONTIN) 4-16 [id number] mg by L ukes 100 MG 20:44: 3D mouth 3 Medical capsule 10 (three) Center times daily. mirtazapine 2022-0 Yes 7.5mg QD Take 7.[address] (REMERON) 4-16 mg by [facility] 7.5 MG 20:44: mouth Medical tablet 10 nightly. [place] sertraline Yes 100mg QD Take [address] (ZOLOFT) 4-16 mg by [facility] 100 MG 20:44: mouth Medical tablet 10 daily. [place] tamsulosin Yes .4mg QD Take 0.[address] (FLOMAX) 4-16 mg by [facility] 0.4 mg Cap 20:44: mouth Medica l 24 hr 10 daily. [place] capsule calcitrioL Yes .25ug QD Take 0.[address] (ROCALTROL) 4-16 mcg by [facility] 0.25 MCG 20:44: mouth Medical capsule 10 daily. [place] cloNIDine Yes .25mg Q.[id number] Take 0.[address] HCL 4-16 [id number] mg by [facility] (CATAPRES) 20:44: 3D mouth 3 Medi titus 0.2 MG 10 (three) Center tablet times daily. amLODIPine Yes 10mg QD Take [address] (NORVASC) 4-16 by mouth [facility] 10 MG 20:44: daily. Medical tablet 10 [place] aspirin 81 Yes 81mg QD Take [address] MG EC 4-16 by mouth [facility] tablet 20:44: daily. Medical 10 [place] atorvastati Yes 10mg QD Take [address] n (LIPITOR) 4-16 by mouth Luke s 10 MG 20:44: daily. Medical tablet 10 [place] buPROPion Yes 50mg QD Take [address] (WELLBUTRIN 4-16 by mouth Luke s ) 100 MG 20:44: daily. Medical tablet 10 [place] divalproex Yes 500mg QD Take [address] (DEPAKOTE) 4-16 mg by [facility] 500 MG EC 20:44: mouth Medical tablet 10 nightly. [place] finasteride Yes 5mg QD Take [address] (PROSCAR) 5 4-16 by mouth Luke s mg tablet 20:44: daily. Medica l 10 [place] gabapentin Yes 100mg Q.[id number] Take [address] (NEURONTIN) 4-16 [id number] mg by L ukes 100 MG 20:44: 3D mouth 3 Medical capsule 10 (three) Center times daily. mirtazapine Yes 7.5mg QD Take 7.[address] (REMERON) 4-16 mg by [facility] 7.5 MG 20:44: mouth Medical tablet 10 nightly. [place] sertraline Yes 100mg QD Take [address] (ZOLOFT) 4-16 mg by [facility] 100 MG 20:44: mouth Medical tablet 10 daily. [place] tamsulosin Yes .4mg QD Take 0.[address] (FLOMAX) 4-16 mg by [facility] 0.4 mg Cap 20:44: mouth Medica l 24 hr 10 daily. [place] capsule calcitrioL Yes .25ug QD Take 0.[address] (ROCALTROL) 4-16 mcg by [facility] 0.25 MCG 20:44: mouth Medical capsule 10 daily. [place] cloNIDine Yes .25mg Q.[id number] Take 0.[address] HCL 4-16 [id number] mg by [facility] (CATAPRES) 20:44: 3D mouth 3 Medi titus 0.2 MG 10 (three) Center tablet times daily. amLODIPine Yes 10mg QD Take [address] (NORVASC) 4-16 by mouth [facility] 10 MG 20:44: daily. Medical tablet 10 [place] aspirin 81 0 Yes 81mg QD Take [address] MG EC 4-16 by mouth [facility] tablet 20:44: daily. Medical 10 [place] atorvastati 0 Yes 10mg QD Take [address] n (LIPITOR) 4-16 by mouth Luke s 10 MG 20:44: daily. Medical tablet 10 [place] buPROPion 0 Yes 50mg QD Take [address] (WELLBUTRIN 4-16 by mouth Luke s ) 100 MG 20:44: daily. Medical tablet 10 [place] divalproex 0 Yes 500mg QD Take [address] (DEPAKOTE) 4-16 mg by [facility] 500 MG EC 20:44: mouth Medical tablet 10 nightly. [place] finasteride 2022-0 Yes 5mg QD Take [address] (PROSCAR) 5 4-16 by mouth Luke s mg tablet 20:44: daily. Medica l 10 [place] gabapentin 0 Yes 100mg Q.[id number] Take [address] (NEURONTIN) 4-16 [id number] mg by L ukes 100 MG 20:44: 3D mouth 3 Medical capsule 10 (three) Center times daily. mirtazapine 0 Yes 7.5mg QD Take 7.[address] (REMERON) 4-16 mg by [facility] 7.5 MG 20:44: mouth Medical tablet 10 nightly. [place] sertraline 0 Yes 100mg QD Take [address] (ZOLOFT) 4-16 mg by [facility] 100 MG 20:44: mouth Medical tablet 10 daily. [place] tamsulosin 0 Yes .4mg QD Take 0.[address] (FLOMAX) 4-16 mg by [facility] 0.4 mg Cap 20:44: mouth Medica l 24 hr 10 daily. [place] capsule calcitrioL 0 Yes .25ug QD Take 0.[address] (ROCALTROL) 4-16 mcg by [facility] 0.25 MCG 20:44: mouth Medical capsule 10 daily. [place] cloNIDine 0 Yes .25mg Q.[id number] Take 0.[address] HCL 4-16 [id number] mg by [facility] (CATAPRES) 20:44: 3D mouth 3 Medi titus 0.2 MG 10 (three) Center tablet times daily. Neurontin Neurontin Yes Jose Manuel 1 capsule Common Baum before Spirit bedtime - [facility] Metoprolol Metoprolol Yes Jose Manuel TAKE ONE Common Tartrate Tartrate Baum TABLET BY S pirit MOUTH - [facility] DAY. [facility]KE [facility] WITH Medical METOPROLOL Center 25MG TO EQUAL TOTAL DOSE OF 75MG TWICE DAILY Remeron Remeron Yes Jose Manuel 1 tablet Com mon Baum at bedtime [facility] Depakote ER Depakote ER Yes Jose Manuel not Common Baum defined [facility] Metoprolol Metoprolol Yes Jose Manuel TAKE ONE Common Tartrate Tartrate Baum TABLET BY S pirit MOUTH - [facility] DAY. TAKE [facility] WITH Medical METOPROLOL Center 50MG TO TOTAL DOSE OF 75MG Simvastatin Simvastatin Yes Jose Manuel 1 tablet Common Baum in the [facility] evening [facility] Zoloft Zoloft Yes Jose Manuel 1 tablet Commo n Baum [facility] Colace Colace Yes Jose Manuel 1 capsule Comm on Baum as needed [facility] Aspirin Aspirin Yes Jose Manuel 1 tablet Com mon Baum [facility] Vital Signs Vital Name Observation Time Observation Value Comments Source HEIGHT 2022-03-13 10:31:00 165.1 cm WEIGHT 2022-03-13 10:31:00 70.761 kg HEIGHT 2022-03-13 10:31:00 165.1 cm WEIGHT 2022-03-13 10:31:00 70.761 kg HEIGHT 2022-02-11 17:20:00 165.1 cm WEIGHT 2022-02-11 17:20:00 70.761 kg HEIGHT 2022-02-11 17:20:00 165.1 cm WEIGHT 2022-02-11 17:20:00 70.761 kg HEIGHT 2022-02-11 17:20:00 165.1 cm WEIGHT 2022-02-11 17:20:00 70.761 kg HEIGHT 2022-02-11 15:53:00 170.2 cm HEIGHT 2022-02-11 15:53:00 170.2 cm HEIGHT 2022-02-06 14:57:00 170.2 cm WEIGHT 2022-02-06 14:57:00 70.806 kg HEIGHT 2022-02-06 14:57:00 170.2 cm WEIGHT 2022-02-06 14:57:00 70.806 kg Height 2022-01-27 08:12:00 170.18 CM HEIGHT 2021-12-28 18:30:00 170.2 cm WEIGHT 2021-12-28 18:30:00 70.806 kg HEIGHT 2021-12-28 18:30:00 170.2 cm WEIGHT 2021-12-28 18:30:00 70.806 kg HEIGHT 2021-12-28 18:30:00 170.2 cm WEIGHT 2021-12-28 18:30:00 70.806 kg Systolic blood 2022-03-13 10:31:00 114 mm[Hg] [facility] Diastolic blood 2022-03-13 10:31:00 74 mm[Hg] [facility] Heart rate 2022-03-13 10:31:00 101 /min [facility] Body temperature 2022-03-13 10:31:00 36.22 July [facility] Body height 2022-03-13 10:31:00 165.1 cm [facility] Body weight 2022-03-13 10:31:00 70.761 kg [facility] BMI 2022-03-13 10:31:00 25.96 kg/m2 [facility] Respiratory rate 2022-02-20 15:15:00 18 /min [facility] Oxygen saturation in 2022-02-20 15:15:00 97 /min [facility] Arterial blood by Medical Ce nter Pulse oximetry Systolic blood 2022-01-10 16:00:00 123 mm[Hg] [facility] Diastolic blood 2022-01-10 16:00:00 60 mm[Hg] [facility] Heart rate 2022-01-10 16:00:00 76 /min [facility] Body temperature 2022-01-10 16:00:00 36.11 July [facility] Respiratory rate 2022-01-10 16:00:00 18 /min [facility] Oxygen saturation in 2022-01-10 16:00:00 97 /min [facility] Arterial blood by Medical Ce nter Pulse oximetry Heart rate 2022-01-09 14:49:00 83 /min [facility] Respiratory rate 2022-01-09 14:49:00 18 /min [facility] Oxygen saturation in 2022-01-09 14:49:00 93 /min [facility] Arterial blood by Medical Ce nter Pulse oximetry Systolic blood 2022-01-09 13:00:00 135 mm[Hg] [facility] Diastolic blood 2022-01-09 13:00:00 69 mm[Hg] [facility] Body temperature 2022-01-09 13:00:00 36.22 July [facility] Systolic blood 2022-01-06 04:00:00 149 mm[Hg] [facility] Diastolic blood 2022-01-06 04:00:00 64 mm[Hg] [facility] Heart rate 2022-01-06 04:00:00 94 /min [facility] Body temperature 2022-01-06 04:00:00 36.39 July [facility] Respiratory rate 2022-01-06 04:00:00 18 /min [facility] Oxygen saturation in 2022-01-06 04:00:00 95 /min [facility] Arterial blood by Medical Ce nter Pulse oximetry Systolic blood 2022-01-02 03:32:00 135 mm[Hg] [facility] Diastolic blood 2022-01-02 03:32:00 65 mm[Hg] [facility] Heart rate 2022-01-02 03:32:00 96 /min [facility] Body temperature 2022-01-02 03:32:00 36.83 July [facility] Respiratory rate 2022-01-02 03:32:00 18 /min [facility] Oxygen saturation in 2022-01-02 03:32:00 95 /min [facility] Arterial blood by Medical Ce nter Pulse oximetry Systolic blood 2022-01-01 08:28:00 133 mm[Hg] [facility] Diastolic blood 2022-01-01 08:28:00 63 mm[Hg] [facility] Heart rate 2022-01-01 08:28:00 83 /min [facility] Respiratory rate 2022-01-01 07:35:00 18 /min [facility] Oxygen saturation in 2022-01-01 07:35:00 95 /min [facility] Arterial blood by Medical Ce [facility]ter Pulse oximetry Body temperature 2022-01-01 07:25:00 36.39 July [facility] Systolic blood 2021-12-31 08:17:00 140 mm[Hg] [facility] Diastolic blood 2021-12-31 08:17:00 86 mm[Hg] [facility] Heart rate 2021-12-31 08:17:00 93 /min [facility] Body temperature 2021-12-31 08:17:00 36.56 July [facility] Respiratory rate 2021-12-31 08:17:00 20 /min [facility] Oxygen saturation in 2021-12-31 08:17:00 95 /min [facility] Arterial blood by Medical Ce [facility]ter Pulse oximetry Heart rate 2021-12-30 07:37:00 83 /min [facility] Respiratory rate 2021-12-30 07:37:00 18 /min [facility] Oxygen saturation in 2021-12-30 07:37:00 95 /min [facility] Arterial blood by Medical Ce nter Pulse oximetry Systolic blood 2021-12-30 07:35:00 133 mm[Hg] [facility] Diastolic blood 2021-12-30 07:35:00 74 mm[Hg] [facility] Body temperature 2021-12-30 07:35:00 36.56 July [facility] Body height 2021-12-28 18:30:00 170.2 cm [facility] Body weight 2021-12-28 18:30:00 70.806 kg [facility] BMI 2021-12-28 18:30:00 24.45 kg/m2 [facility] Procedures Procedure Date / Time Performing Clinician Source Performed CBC W/PLT COUNT & AUTO 2022-02-20 05:24:00 Yogi Munoz [facility] BASIC METABOLIC PANEL (7) 2022-02-20 05:24:00 Yogi Munoz [facility] CBC W/PLT COUNT & AUTO 2022-02-20 05:24:00 Yogi Munoz [facility] POCT-GLUCOSE METER 2022-02-20 00:13:00 Yogi Munoz [facility] BASIC METABOLIC PANEL (7) 2022-02-19 05:09:00 Wilton Baum I [facility] SARS-COV2/RT-PCR ([facility] & 2022-02-18 20:22:00 Lashawn Watts [facility] REF LABS) [facility] US RENAL COMPLETE 2022-02-18 19:43:00 Wilton Baum [facility] BASIC METABOLIC PANEL (7) 2022-02-18 03:50:00 Wilton Baum [facility] XR CHEST PA OR AP 1 VIEW 2022-02-17 15:52:00 Yogi Munoz [facility] IN DEPT [facility] BASIC METABOLIC PANEL (7) 2022-02-17 05:11:00 Wilton Baum [facility] BASIC METABOLIC PANEL (7) 2022-02-15 14:56:00 Wilton Baum [facility] CBC W/PLT COUNT & AUTO 2022-02-14 04:39:00 Lashawn Watts [facility] DIFFERENTIAL [facility] CBC W/PLT COUNT & AUTO 2022-02-14 04:39:[address] [facility] DIFFERENTIAL [facility] CBC W/PLT COUNT & AUTO 2022-02-13 05:00:[address] [facility] DIFFERENTIAL [facility] BASIC METABOLIC PANEL (7) 2022-02-13 05:00:00 Lashawn Watts [facility] CBC W/PLT COUNT & AUTO 2022-02-13 05:00:00 Lashawn Watts [facility] DIFFERENTIAL [facility] ANAEROBIC CULTURE 2022-02-12 14:34:18 Lashawn Watts [facility] SURGICALLY OBTAINED 2022-02-12 14:34:18 Lashawn Watts [facility] CULTURE + GRAM STAIN [facility] ter ANAEROBIC CULTURE 2022-02-12 14:28:22 Lashawn Watts [facility] SURGICALLY OBTAINED 2022-02-12 14:28:22 Lashawn Watts [facility] CULTURE + GRAM STAIN [facility] ter FUNGUS CULTURE + SMEAR 2022-02-12 14:28:[address] [facility] TISSUE EXAM 2022-02-12 14:28:00 Lashawn Watts [facility] AMPUTATION, BELOW KNEE 2022-02-12 13:40:00 Lashawn Watts [facility] WOUND CULTURE + GRAM 2022-02-11 17:56:00 Farnaz Trent [facility] STAIN [facility] BLOOD CULTURE 2022-02-11 17:53:00 Farnaz Trent [facility] CBC W/PLT COUNT & AUTO 2022-02-11 17:53:00 Farnaz Trent [facility] DIFFERENTIAL [facility] COMPREHENSIVE METABOLIC 2022-02-11 17:53:00 Farnaz Trent [facility] C-REACTIVE PROTEIN 2022-02-11 17:53:00 [facility] AND SCREEN, 2022-02-11 17:53:00 Farnaz Trent [facility] AUTOMATED [facility] CBC W/PLT COUNT & AUTO 2022-02-11 17:53:00 Farnaz Trent [facility] DIFFERENTIAL [facility] XR LEG / TIBIA AND FIBULA 2022-02-11 17:49:00 Farnaz Trent [address] SARS-COV2/RT-PCR ([facility] & 2022-02-11 17:31:00 Lashawn Watts [facility] REF LABS) [facility] COMPREHENSIVE METABOLIC 2022-01-10 11:20:00 Josselyn Zavala I [facility] CBC W/PLT COUNT & AUTO 2022-01-10 11:20:00 Josselyn Zavala [facility] DIFFERENTIAL [facility] CBC W/PLT COUNT & AUTO 2022-01-10 11:20:00 Josselyn Zavala [facility] (MANUAL DIFFERENTIAL) 2022-01-10 11:20:00 Josselyn Zavala [facility] POCT-GLUCOSE METER 2022-01-09 21:27:00 [facility] SODI[facility], RANDOM URINE 2022-01-09 17:31:00 Jos eManuel [facility] POTASSIUM, RANDOM URINE 2022-01-09 17:31[facility]00 [facility] URINE 2022-01-09 17:31:00 Jose Manuel [facility] COMPREHENSIVE METABOLIC 2022-01-09 04:29:00 [facility]elyn [facility]ala [facility] CBC W/PLT COUNT & AUTO 2022-01-09 04:29:00 [facility]IUM 2022-01-09 04:29:00 [facility] CBC W/PLT COUNT & AUTO 2022-01-09 04:29:00 Josselyn Zavala [facility] ANTI-NUCLEAR ANTIBODY 2022-01-09 04:29:00 Jose Manuel [facility] ([facility]) [facility] POCT-GLUCOSE METER 2022-01-08 21:07:00 [facility] COMPRE[facility]ENSIVE METABOLIC 2022-01-08 04:49:00 [facility] CBC W/PLT COUNT & AUTO 2022-01-08 04:49:00 [facility]NESIUM 2022-01-08 04:49:00 [facility] CBC W/PLT COUNT & AUTO 2022-01-08 04:49:00 Josselyn Zavala [facility] (MANUAL DIFFERENTIAL) 2022-01-08 04:49:00 Lucas [facility] POCT-GLUCOSE METER 2022-01-07 21:27:00 Josselyn Zavala [facility] BLOOD GAS, ARTERIAL 2022-01-07 14:52:00 Jose Manuel [facility] XR CHEST 1 VIEW PORTABLE 2022-01-07 14:42:00 Jose Manuel [facility] CBC W/PLT COUNT & AUTO 2022-01-07 06:03:00 Lashawn Watts [facility] DIFFERENTIAL [facility] COMPREHENSIVE METABOLIC 2022-01-07 06:03:00 Josselyn Zavala [facility] MAGNESIUM 2022-01-07 06:03:00 Josselyn Zavala [facility] CBC W/PLT COUNT & AUTO 2022-01-07 06:03:00 Lashawn Watts [facility] DIFFERENTIAL [facility] (MANUAL DIFFERENTIAL) 2022-01-07 06:03:00 Lashawn Watts [facility] BASIC METABOLIC PANEL (7) 2022-01-06 05:35:00 Lashawn Watts [facility] CBC W/PLT COUNT & AUTO 2022-01-06 05:35:00 Lashawn Watts [facility] DIFFERENTIAL [facility] CBC W/PLT COUNT & AUTO 2022-01-06 05:35:00 Lashawn Watts [facility] DI[facility]ENTIAL [facility] (MANUAL DIFFERENTIAL) 2022-01-06 05:35:00 Lashawn Watts [facility] PREPARE LEUKO-REDUCED RBC 2022-01-05 23:54:00 Renzo Waller [facility] CBC W/PLT COUNT & AUTO 2022-01-05 05:34:00 Lashawn Watts [facility] DIFFERENTIAL [facility] 2022-01-05 05:34:00 Josselyn Zavala [facility] MAGNESIUM 2022-01-05 05:34:00 Josselyn Zavala [facility] CBC W/PLT COUNT & AUTO 2022-01-05 05:34:00 Lashawn Watts [facility] DI[facility]ENTIAL [facility] (MANUAL DIFFERENTIAL) 2022-01-05 05:34:00 Lashawn Wtats [facility] TRANSFUSE LEUKO-REDUCED 2022-01-04 14:15:00 Renzo Waller [facility] RED BLOOD CELLS [facility] AMPUTATION,ABOVE KNEE 2022-01-04 13:21:00 Lashawn Watts [facility] TISSUE EXAM 2022-01-04 13:10:00 Lashawn Watts [facility] CBC W/PLT COUNT & AUTO 2022-01-04 05:00:00 Lashawn Watts [facility] DIFFERENTIAL [facility] COMPREHENSIVE METABOLIC 2022-01-04 05:00:00 Josselyn Zavala [facility] MAGNESIUM 2022-01-04 05:00:00 Josselyn Zavala [facility] COMPLEMENT COMPONENT C4 2022-01-04 05:00:00 Josselyn Zavala [facility] CBC W/PLT COUNT & AUTO 2022-01-04 05:00:00 Lashawn Watts [facility] DIFFERENTIAL [facility] PREPARE LEUKO-REDUCED RBC 2022-01-03 23:55:00 NellyEvans [facility] SARS-COV2/RT-PCR ([facility] & 2022-01-03 20:52:[address] [facility] REF LABS) [facility] PROTHROMBIN TIME/INR 2022-01-03 16:57:00 [facility] TYPE AND SCREEN, 2022-01-03 16:57:00 Dianna Ratliff [facility] SODIUM, RANDOM URINE 2022-01-03 16:49:00 [facility] POTASSIUM, RANDOM URINE 2022-01-03 16:49:00 [facility] OSM[facility], [facility]INE 2022-01-03 16:49:00 [facility] CREATININE, RANDOM URINE 2022-01-03 16:49:00 [facility] PROTEIN, RANDOM URINE 2022-01-03 16:49:00 [facility] I&D,ABSCESS KNEE 2022-01-03 07:00:00 Lashawn Watts [facility] AMPUTATION,TOE 2022-01-03 07:00:00 Lashawn Watts [facility] POCT-GLUCOSE METER 2022-01-03 06:36:00 Josselyn Zavala [facility] APTT 2022-01-03 06:27:00 Josselyn Zavala [facility] COMPREHENSIVE METABOLIC 2022-01-03 06:27:00 [facility] I [facility] CBC W/PLT COUNT & AUTO 2022-01-03 06:27:00 [facility] MAGNESIUM 2022-01-03 06:27:00 [facility] CBC W/PLT COUNT & AUTO 2022-01-03 06:27:00 Lucas [facility] (MANUAL DIFFERENTIAL) 2022-01-03 06:27:00 Lucas [facility] TISSUE EXAM 2022-01-02 20:03:00 Magali [facility] TRANSFUSE LEUKO-REDUCED 2022-01-02 19:29:00 Magali [facility] RED BLOOD CELLS [facility] I&D,ABSCESS KNEE 2022-01-02 19:08:00 Lashawn Watts [facility] AMPUTATION,TOE 2022-01-02 19:08:00 Lashawn Watts [facility] HEMOGLOBIN AND HEMATOCRIT 2022-01-02 17:58:00 Lashawn Watts [facility] ABORH, MANUAL 2022-01-02 17:58:00 Izzy Greenberg [facility] COMPREHENSIVE METABOLIC 2022-01-02 14:58:00 Magali [facility] TYPE AND SCREEN, 2022-01-02 14:58:00 Lashawn Watts [facility] AUTOMATED [facility] APTT 2022-01-02 12:17:00 Josselyn Zavala [facility] APTT 2022-01-02 04:07:00 Josselyn Zavala [facility] APTT 2022-01-01 19:51:00 [facility] MR LOWER EXTREMITY JOINT 2022-01-01 18:55:00 Lashawn Watts [facility] ONLY WITHOUT IV CONTRAST [facility] LEFT APTT 2022-01-01 10:02:00 Josselyn Zavala [facility] CBC W/PLT COUNT & AUTO 2022-01-01 04:22:00 LucasJosselyn prather [facility] COMPREHENSIVE METABOLIC 2022-01-01 04:22:00 Josselyn Zavala [facility] CBC W/PLT COUNT & AUTO 2022-01-01 04:22:00 [facility] MR BRAIN WITHOUT IV 2021-12-31 19:50:00 Ashkan Domínguez [facility] CONTRAST [facility] APTT 2021-12-31 09:00:00 [facility] MAGNESIUM 2021-12-31 04:11:00 [facility] COMPREHENSIVE METABOLIC 2021-12-31 04:11:00 Josselyn Zavala [facility] CBC W/PLT COUNT & AUTO 2021-12-31 04:11:00 LucasJosselyn [facility]ather[facility] CBC W/PLT COUNT & AUTO 2021-12-31 04:11:00 LucasJoseslyn [facility]atherMin[facility] APTT 2021-12-31 00:38:00 LucasJosselyn [facility]atherSan [facility] C-REACTIVE PROTEIN 2021-12-30 15:35:00 [facility] 2021-12-30 15:35:00 Lucas [facility] PREALBUMIN 2021-12-30 15:35:00 RatliffDianna bahena [facility] ARTERIAL DOPPLER LEG 2021-12-30 12:00:00 Ratliff, Dianna [facility] FOOT 3 VIEWS LEFT 2021-12-30 10:37:00 Ratliff, Dianna Rahman [facility] XR ANKLE 3 VIEWS LEFT 2021-12-30 10:37:00 Ratliff, Dianna [facility] XR LEG / TIBIA AND FIBULA 2021-12-30 10:37:00 Ratliff, Dianna Rahman [facility] 2 VIEWS LEFT [facility] MAGNESIUM 2021-12-30 06:26:00 Josselyn Zavala [facility] COMPREHENSIVE METABOLIC 2021-12-30 06:26:00 [facility] W/PLT COUNT & AUTO 2021-12-30 06:26:00 Josselyn Zavala [facility] APTT 2021-12-30 06:26:00 Josselyn Zavala [facility] CBC W/PLT COUNT & AUTO 2021-12-30 06:26:00 Josselyn Zavala [facility] APTT 2021-12-29 22:00:00 Josselyn Zavala [facility] APTT 2021-12-29 14:11:00 Josselyn Zavala [facility] 2D ECHO W/ DOPPLER 2021-12-29 11:53:24 Josselyn Zavala [facility] (CW/PW/COLOR) [facility] 2D ECHO W/ DOPPLER 2021-12-29 10:56:46 Mariely Rendon [facility] (CW/PW/COLOR) [facility] APTT 2021-12-29 05:32:00 Josselyn Zavala [facility] MAGNESIUM 2021-12-29 05:32:00 Josselyn Zavala [facility] COMPREHENSIVE METABOLIC 2021-12-29 05:32:00 Josselyn Zavalaj [facility] CBC W/PLT COUNT & AUTO 2021-12-29 05:32:00 Josselyn Zavala [facility] TROPONIN I 2021-12-29 05:32:00 Josselyn Zavala [facility] CBC W/PLT COUNT & AUTO 2021-12-29 05:32:00 Josselyn Zavala [facility] XR CHEST 1 VIEW PORTABLE 2021-12-28 23:07:[address] [facility] TROPONIN I 2021-12-28 21:52:00 [facility] BLOOD CULTURE 2021-12-28 21:45:00 [facility] URINALYSIS W/ MICROSCOPIC 2021-12-28 21:39:00 [facility]IP[facility]EL 2021-12-28 21:36:00 [facility] HEMOGLOBIN A1C 2021-12-28 21:36:00 [facility] COMPREHENSIVE METABOLIC 2021-12-28 21:36:00 Josselyn Zavala [facility] MAGNESIUM 2021-12-28 21:36:00 [facility] CBC W/PLT COUNT & AUTO 2021-12-28 21:36:00 Josselyn Zavala [facility] APTT 2021-12-28 21:36:00 [facility] CBC W/PLT COUNT & AUTO 2021-12-28 21:36:00 [facility] BLOOD CULTURE 2021-12-28 21:34:00 [facility] E[facility]-SCANNED 2021-12-28 00:00:00 Provider, Default [facility] Plan of Care Planned Activity Planned Date Details Comments Source Future Scheduled 2022-05-[address] [facility] 00:00:00 (Season Ended) [code = Medic al Center INFLUENZA VACCINE (Season Ended)] Future Scheduled 2022-05-[address] [facility] 00:00:00 (Season Ended) [code = Medic al Center INFLUENZA VACCINE (Season Ended)] Future Scheduled 2022-05-[address] [facility] 00:00:00 (Season Ended) [code = Medic al Center INFLUENZA VACCINE (Season Ended)] Future Scheduled 2022-05-[address] [facility] 00:00:00 (Season Ended) [code = Medic al Center INFLUENZA VACCINE (Season Ended)] Future Scheduled 2022-05-[address] [facility] 00:00:00 (Season Ended) [code = Medic al Center INFLUENZA VACCINE (Season Ended)] Future Scheduled 2022-05-[address] [facility] 00:00:00 (Season Ended) [code = Medic al Center INFLUENZA VACCINE (Season Ended)] Future Scheduled 2022-05-[address] [facility] 00:00:00 (Season Ended) [code = Medic al Center INFLUENZA VACCINE (Season Ended)] Future Scheduled 2022-05-15 INFLUENZA VACCINE (#1) [facility] 00:[facility]:00 [code = INFLUENZA Medical Ce nter VACCINE (#1)] Future Scheduled 2021-09-[address] [facility] 00:00:00 (12+) [code = Medical Center DEPRESSION SCREENING (12+)] Future Scheduled 2021-09-14 FALLS RISK SCREENING [facility] 00:00:00 [code = FALLS RISK Medical C enter SCREENING] Future Scheduled 2021-09-14 Medicare IPPE (WELCOME [facility] 00:00:00 TO MEDICARE) [code = Medical Center Medicare IPPE (WELCOME TO MEDICARE)] Future Scheduled 2021-09-[address] [facility] 00:00:00 (12+) [code = Medical Center DEPRESSION SCREENING (12+)] Future Scheduled 2021-09-14 FALLS RISK SCREENING [facility] 00:00:00 [code = FALLS RISK Medical C enter SCREENING] Future Scheduled 2021-09-14 Medicare IPPE (WELCOME [facility] 00:00:00 TO MEDICARE) [code = Medical Center Medicare IPPE (WELCOME TO MEDICARE)] Future Scheduled 2021-09-[address] [facility] 00:00:00 (12+) [code = Medical Center DEPRESSION SCREENING (12+)] Future Scheduled 2021-09-14 FALLS RISK SCREENING [facility] 00:00:00 [code = FALLS RISK Medical C enter SCREENING] Future Scheduled 2021-09-14 Medicare IPPE (WELCOME [facility] 00:00:00 TO MEDICARE) [code = Medical Center Medicare IPPE (WELCOME TO MEDICARE)] Future Scheduled 2021-09-[address] [facility] 00:00:00 (12+) [code = Medical Center DEPRESSION SCREENING (12+)] Future Scheduled 2021-09-14 FALLS RISK SCREENING [facility] 00:00:00 [code = FALLS RISK Medical C enter SCREENING] Future Scheduled 2021-09-14 Medicare IPPE (WELCOME [facility] 00:00:00 TO MEDICARE) [code = Medical Center Medicare IPPE (WELCOME TO MEDICARE)] Future Scheduled 2021-09-[address] [facility] 00:00:00 (12+) [code = Medical Center DEPRESSION SCREENING (12+)] Future Scheduled 2021-09-14 FALLS RISK SCREENING [facility] 00:00:00 [code = FALLS RISK Medical C enter SCREENING] Future Scheduled 2021-09-14 Medicare IPPE (WELCOME [facility] 00:00:00 TO MEDICARE) [code = Medical Center Medicare IPPE (WELCOME TO MEDICARE)] Future Scheduled 2021-09-[address] [facility] 00:00:00 (12+) [code = Medical Center DEPRESSION SCREENING (12+)] Future Scheduled 2021-09-14 FALLS RISK SCREENING [facility] 00:00:00 [code = FALLS RISK Medical C enter SCREENING] Future Scheduled 2021-09-14 Medicare IPPE (WELCOME [facility] 00:00:00 TO MEDICARE) [code = Medical Center Medicare IPPE (WELCOME TO MEDICARE)] Future Scheduled 2021-09-[address] [facility] 00:00:00 (12+) [code = Medical Center DEPRESSION SCREENING (12+)] Future Scheduled 2021-09-14 FALLS RISK SCREENING [facility] 00:00:00 [code = FALLS RISK Medical C enter SCREENING] Future Scheduled 2021-09-14 Medicare IPPE (WELCOME [facility] 00:00:00 TO MEDICARE) [code = Medical Center Medicare IPPE (WELCOME TO MEDICARE)] Future Scheduled 2021-09-14 Medicare IPPE (WELCOME [facility] 00:00:00 TO MEDICARE) [code = Medical Center Medicare IPPE (WELCOME TO MEDICARE)] Future Scheduled [address] [facility] 00:00:00 aneurysm screening Medical C enter (procedure) [code = 773704924] Future Scheduled [address] [facility] 00:00:00 aneurysm screening Medical C enter (procedure) [code = 242529321] Future Scheduled [address] [facility] 00:00:00 aneurysm screening Medical C enter (procedure) [code = 834383359] Future Scheduled [address] [facility] 00:00:00 aneurysm screening Medical C enter (procedure) [code = 240007779] Future Scheduled [address] [facility] 00:00:00 aneurysm screening Medical C enter (procedure) [code = [id number]] Future Scheduled [address] [facility] 00:00:00 aneurysm screening Medical C enter (procedure) [code = [id number]] Future Scheduled [address] [facility] 00:00:00 aneurysm screening Medical C enter (procedure) [code = 197288503] Future Scheduled [address] [facility] 00:00:00 aneurysm screening Medical C enter (procedure) [code = 795688563] Future Scheduled 2003 SHINGLES VACCINES ([address] [facility] 00:00:00 2) [code = [facility] VACCINES (1 of 2)] Future Scheduled 2003 SHINGLES VACCINES ([address] [facility] 00:00:00 2) [code = [facility]INGLES [facility] VACCINES (1 of 2)] Future Scheduled 2003 SHINGLES VACCINES ([address] [facility] 00:00:00 2) [code = SHINGLES [facility] VACCINES (1 of 2)] Future Scheduled 2003 SHINGLES VACCINES ([address] [facility] 00:00:00 2) [code = SHINGLES [facility] VACCINES (1 of 2)] Future Scheduled 2003 SHINGLES VACCINES ([address] [facility] 00:00:00 2) [code = SHINGLES [facility] VACCINES (1 of 2)] Future Scheduled 2003 SHINGLES VACCINES ([address] [facility] 00:00:00 2) [code = SHINGLES [facility] VACCINES (1 of 2)] Future Scheduled 2003 SHINGLES VACCINES ([address] [facility] 00:00:00 2) [code = SHINGLES [facility] VACCINES (1 of 2)] Future Scheduled 2003 SHINGLES VACCINES ([address] [facility] 00:00:00 2) [code = SHINGLES [facility] VACCINES (1 of 2)] Future Scheduled 1972-01-12 DTAP/TDAP/TD [facility]INES [facility] 00:00:00 (1 - Tdap) [code = Medical C enter DTAP/TDAP/TD VACCINES (1 - Tdap)] Future Scheduled 1972-01-12 DTAP/TDAP/TD [facility]INES [facility] 00:00:00 (1 - Tdap) [code = Medical C enter DTAP/TDAP/TD VACCINES (1 - Tdap)] Future Scheduled 1972-01-12 DTAP/TDAP/TD [facility]ACCINES [facility] 00:00:00 (1 - Tdap) [code = Medical C enter DTAP/TDAP/TD VACCINES (1 - Tdap)] Future Scheduled 1972-01-12 DTAP/TDAP/TD [facility]INES [facility] 00:00:00 (1 - Tdap) [code = Medical C enter DTAP/TDAP/TD VACCINES (1 - Tdap)] Future Scheduled 1972-01-12 DTAP/TDAP/TD [facility]INES [facility] 00:00:00 (1 - Tdap) [code = Medical C enter DTAP/TDAP/TD VACCINES (1 - Tdap)] Future Scheduled 1972-01-12 DTAP/TDAP/TD [facility]INES [facility] 00:00:00 (1 - Tdap) [code = Medical C enter DTAP/TDAP/TD VACCINES (1 - Tdap)] Future Scheduled 1972-01-12 DTAP/TDAP/TD [facility]ACCINES [facility] 00:00:00 (1 - Tdap) [code = Medical C enter DTAP/TDAP/TD VACCINES (1 - Tdap)] Future Scheduled 1972-01-12 DTAP/TDAP/TD [facility]INES [facility] 00:00:00 (1 - Tdap) [code = Medical C enter DTAP/TDAP/TD VACCINES (1 - Tdap)] Future Scheduled 1971 HEPATITIS C [facility]CRE[facility]ING [facility]00 [code = HEPATITIS C [facility] Center SCREENING] Future Scheduled 1971 HEPATITIS C [facility]:00:00 [code = HEPATITIS C Medical Center SCREENING] Future Scheduled 1971 HEPATITIS C [facility]:00:00 [code = HEPATITIS C [facility] Center SCREENING] Future Scheduled 1971 HE[facility]ITIS C [facility]:00:00 [code = HEPATITIS C Medical Center SCREENING] Future Scheduled 1971 HEPATITIS C [facility]:00:00 [code = HEPATITIS C Medical Center SCREENING] Future Scheduled 1971 HEPATITIS C [facility]:00:00 [code = HEPATITIS C Medical Center SCREENING] Future Scheduled 1971 HE[facility]ITIS C [facility]:00:00 [code = HEPATITIS C Medical Center SCREENING] Future Scheduled 1971 HEPATITIS C [facility] 00:00:00 [code = HEPATITIS C Medical Center SCREENING] Future Scheduled 1958 COVID-19 VACCINE (1) [facility] 00:00:00 [code = COVID-[address] VACCINE (1)] Future Scheduled 1958 COVID-19 VACCINE (1) [facility] 00:00:00 [code = COVID-[address] VACCINE (1)] Future Scheduled 1958 COVID-19 VACCINE (1) [facility] 00:00:00 [code = COVID-[address] VACCINE (1)] Future Scheduled 1958 COVID-19 VACCINE (1) [facility] 00:00:00 [code = COVID-[address] VACCINE (1)] Future Scheduled 1958 COVID-19 VACCINE (1) [facility] 00:00:00 [code = COVID-[address] VACCINE (1)] Future Scheduled 1958 COVID-19 VACCINE (1) [facility] 00:00:00 [code = COVID-[address] VACCINE (1)] Future Scheduled 1958 COVID-19 VACCINE (1) [facility] 00:00:00 [code = COVID-[address] VACCINE (1)] Future Scheduled 1958 COVID-19 VACCINE (#1) [facility] 00:00:00 [code = COVID-[address] VACCINE (#1)] Future Scheduled 1953 Sigmoidoscopy [code = [facility]] [facility] Future Scheduled 1953 CT Colonography (combo) [facility] 00[facility]00:00 [code = CT Colonography [facility] (combo)] Future Scheduled 1953 Screening for malignant [facility] 00:00:00 neoplasm of colon Medical Ce nter (procedure) [code = 546146276] Future Scheduled 1953 Screening for malignant [facility] 00:00:00 neoplasm of colon Medical Ce nter (procedure) [code = 756932483] Future Scheduled 1953 Screening for malignant [facility] 00:00:00 neoplasm of colon Medical Ce nter (procedure) [code = 740066761] Future Scheduled 1953 Screening for malignant [facility] 00:00:00 neoplasm of colon Medical Ce nter (procedure) [code = 452755129] Future Scheduled 1953 Sigmoidoscopy [code = [facility] S[facility]oscopy] Medical Cente r Future Scheduled 1953 CT Colonography (combo) [facility] 00:00:00 [code = CT [facility] Future Scheduled 1953 Screening for malignant [facility] 00:00:00 neoplasm of colon Medical Ce nter (procedure) [code = 266557091] Future Scheduled 1953 Screening for malignant [facility] 00:00:00 neoplasm of colon Medical Ce nter (procedure) [code = 908710514] Future Scheduled 1953 Screening for malignant [facility] 00:00:00 neoplasm of colon Medical Ce nter (procedure) [code = 303161578] Future Scheduled 1953 Screening for malignant [facility] 00:00:00 neoplasm of colon Medical Ce nter (procedure) [code = 168498040] Future Scheduled 1953 Sigmoidoscopy [facility]code = [facility] S[facility]oscopy] Medical Cente r Future Scheduled 1953 CT Colonography (combo) [facility] 00:00:00 [code = CT Colonography [facility] (combo)] Future Scheduled 1953 Screening for malignant [facility] 00:00:00 neoplasm of colon Medical Ce nter (procedure) [code = 101315807] Future Scheduled 1953 Screening for malignant [facility] 00:00:00 neoplasm of colon Medical Ce nter (procedure) [code = 210139449] Future Scheduled 1953 Screening for malignant [facility] 00:00:00 neoplasm of colon Medical Ce nter (procedure) [code = 025877491] Future Scheduled 1953 Screening for malignant [facility] 00:00:00 neoplasm of colon Medical Ce nter (procedure) [code = 604457739] Future Scheduled 1953 Sigmoidoscopy [code = [facility] S[facility]oidoscopy] Medical Cente r Future Scheduled 1953 CT Colonography (combo) [facility] 00:00:00 [code = CT Colonography [facility] (combo)] Future Scheduled 1953 Screening for malignant [facility] 00:00:00 neoplasm of colon Medical Ce nter (procedure) [code = 386359128] Future Scheduled 1953 Screening for malignant [facility] 00:00:00 neoplasm of colon Medical Ce nter (procedure) [code = 631135314] Future Scheduled 1953 Screening for malignant [facility] 00:00:00 neoplasm of colon Medical Ce nter (procedure) [code = 195757551] Future Scheduled 1953 Screening for malignant [facility] 00:00:00 neoplasm of colon Medical Ce nter (procedure) [code = 491041010] Future Scheduled 1953 Sigmoidoscopy [code = [facility] Sigmoidoscopy] Medical Cente r Future Scheduled 1953 CT Colonography (combo) [facility] 00:00:00 [code = CT [facility] ([facility])] Future Scheduled 1953 Screening for malignant [facility] 00:00:00 neoplasm of colon Medical Ce nter (procedure) [code = 400158226] Future Scheduled 1953 Screening for malignant [facility] 00:00:00 neoplasm of colon Medical Ce nter (procedure) [code = 554273845] Future Scheduled 1953 Screening for malignant [facility] 00:00:00 neoplasm of colon Medical Ce nter (procedure) [code = 170016787] Future Scheduled 1953 Screening for malignant [facility] 00:00:00 neoplasm of colon Medical Ce nter (procedure) [code = 404604088] Future Scheduled 1953 Sigmoidoscopy [code = [facility] S[facility]oidoscopy] Medical Cente r Future Scheduled 1953 CT Colonography (combo) [facility] 00:00:00 [code = CT [facility] ([facility])] Future Scheduled 1953 Screening for malignant [facility] 00:00:00 neoplasm of colon Medical Ce nter (procedure) [code = 903788301] Future Scheduled 1953 Screening for malignant [facility] 00:00:00 neoplasm of colon Medical Ce nter (procedure) [code = 370894315] Future Scheduled 1953 Screening for malignant [facility] 00:00:00 neoplasm of colon Medical Ce nter (procedure) [code = 867094884] Future Scheduled 1953 Screening for malignant [facility] 00:00:00 neoplasm of colon Medical Ce nter (procedure) [code = 322942015] Future Scheduled 1953 Sigmoidoscopy [facility]code = [facility] ([facility]bo[facility] 00:00:00 [code = CT Colonography [facility] (combo)] Future Scheduled 1953 Screening for malignant [facility] 00:00:00 neoplasm of colon Medical Ce nter (procedure) [code = 854170498] Future Scheduled 1953 Screening for malignant [facility] 00:00:00 neoplasm of colon Medical Ce nter (procedure) [code = 830485137] Future Scheduled 1953 Screening for malignant [facility] 00:00:00 neoplasm of colon Medical Ce nter (procedure) [code = 278246942] Future Scheduled 1953 Screening for malignant [facility] 00:00:00 neoplasm of colon Medical Ce nter (procedure) [code = 721311981] Future Scheduled 1953 CT Colonography (combo) [facility] 00:00:00 [code = CT Colonography [facility] (combo)] Future Scheduled 1953 Screening for malignant [facility] 00:00:00 neoplasm of colon Medical Ce nter (procedure) [code = 304003258] Future Scheduled 1953 Screening for malignant [facility] 00:00:00 neoplasm of colon Medical Ce nter (procedure) [code = 441693938] Future Scheduled 1953 Screening for malignant [facility] 00:00:00 neoplasm of colon Medical Ce nter (procedure) [code = 474255099] Future Scheduled 1953 Screening for malignant [facility] 00:00:00 neoplasm of colon Medical Ce nter (procedure) [code = 118989246] Future Scheduled 1953 Sigmoidoscopy [facility]code [facility] Sigmoidoscopy] Medical Abel r Encounters Start End Encounter Admission Attending Care Care Encounter Source Date/Time Date/Time Type Type Clinicians Facility Department ID 2022-06-12 2022-06-12 Outpatient MAEVE WATTS [facility] [id number] 00:00:00 00:00:00 [facility] 2022-03-13 2022-03-13 Office Magali [facility] [id number] 10:15:00 11:01:02 Visit [facility] 2022-03-13 2022-03-13 Outpatient MAEVE WATTS [facility] [id number] 10:13:38 11:01:02 [facility] 2022-03-13 2022-03-13 Outpatient MAEVE MOYER [facility] [id number] 00:00[facility] 00:00:00 [facility] 2022-03-13 2022-03-13 Outside Magali [facility] [id number] 00:00:00 00:00:00 Orders [facility] 2022-03-13 2022-03-13 Travel [facility] [id number] [facility] 00:[facility] 00:00:00 [facility] 2022-02-27 2022-02-27 Outpatient MAEVE WATTS [facility] [id number] 00:00:00 00:00:00 [facility] 2022-02-21 2022-02-21 Telephone Magali [facility] [id number] 00:00:00 00:00:00 [facility] 2022-02-11 2022-02-20 Inpatient ER I[facility]ABELLA [facility]UN[facility]Z [id number] [facility] 17:42:00 YOGI 2022-02-11 2022-02-20 [facility] Farnaz Trent [facility] [id number] 17:22:00 17:42:00 Encounter Yogi Munoz [facility] 2022-02-12 2022-02-12 Anesthesia Santhosh Barker [facility] [id number] 13:40:00 15:12:00 Event Valerie Jhony Pelon [facility] 2022-02-12 2022-02-12 Surgery Magali [facility] [id number] 13:30:00 14:58:00 [facility] 2022-02-12 2022-02-12 Telephone Magali [facility] [id number] 00:00:00 00:00:00 [facility] 2022-02-11 2022-02-11 Office Magali [facility] [id number] 15:45:00 16:17:11 Visit [facility] 2022-02-11 2022-02-11 Outpatient MAEVE WATTS [facility] [id number] 15:11:22 16:17:11 [facility] 2022-02-11 2022-02-11 Travel [facility] [id number] [facility] 00:00:00 00:00:00 [facility] 2022-02-06 2022-02-06 Office Keshawn [facility] [id number] 14:30:00 16:05:43 Visit [facility] 2022-02-06 2022-02-06 Outpatient MAEVE MOYER [facility] [id number] 14:24:35 16:05:43 [facility] 2022-02-06 2022-02-06 Outpatient MAEVE MOYER [facility] [id number] 00:00:00 00:00:00 [facility] 2022-02-06 2022-02-06 Travel [facility] [id number] [facility] 00:00:00 00:00:00 [facility] 2022-02-06 2022-02-06 Telephone Magali [facility] [id number] 00:00:00 00:00:00 [facility] 2022-02-04 2022-02-04 Outpatient MAEVE MOYER [facility] [id number] 00:00:00 00:00:00 [facility] 2022-01-28 2022-01-28 Outpatient MAEVE MOYER [facility] [id number] 00:00:00 00:00:00 [facility] 2022-01-27 2022-01-27 Emergency E RATLIFF, [facility] [id number] [facility] 07:59:00 12:12:00 [facility] 2021-12-28 2022-01-10 Inpatient UR JOSSELYN ZAVALA [facility] Internal [id number] [facility] 18:01:00 17:36:00 Med 2021-12-28 2022-01-10 [facility] Josselyn Zavala [facility] [id number] 18:01:00 17:36:00 Encounter [facility] 2022-01-04 2022-01-04 Anesthesia Maycol Peace [facility] [id number] 13:34:00 15:30:00 Event Christin [facility] 2022-01-04 2022-01-04 Anesthesia Maycol Peace [facility] [id number] 13:34:00 15:30:00 Event Christin [facility] 2022-01-04 2022-01-04 Surgery Magali [facility] [id number] 12:00:00 13:56:00 [facility] 2022-01-04 2022-01-04 Surgery Magali [facility] [id number] 12:00:00 13:56:00 [facility] 2022-01-03 2022-01-03 Surgery Yulisa [facility] [id number] 14:00:00 15:30:00 [facility] 2022-01-03 2022-01-03 Surgery Yulisa, [facility] [id number] 14:00:00 15:30:00 [facility] 2022-01-02 2022-01-02 Anesthesia Chap Gm [facility] [id number] [facility] 19:08:00 20:40:00 Event [facility] 2022-01-02 2022-01-02 Anesthesia Chap Gm [facility] [id number] [facility] 19:08:00 20:40:00 Event [facility] 2022-01-02 2022-01-02 Surgery Magali [facility] [id number] 18:00:00 19:46:00 [facility] 2022-01-02 2022-01-02 Surgery Magali [facility] [id number] 18:00:00 19:46:00 [facility] 2022-01-02 2022-01-02 Telephone Magali [facility] [id number] 00:00:00 00:00:00 [facility] 2022-01-02 2022-01-02 Telephone Magali [facility] [id number] 00:00:00 00:00:00 [facility] 2021-12-29 2021-12-29 Travel [facility] [id number] [facility] 00:00:00 00:00:00 [facility] 2021-12-29 2021-12-29 Travel [facility] [id number] [facility] 00:00:00 00:00:00 [facility] 2021-12-28 2021-12-28 Outpatient [facility] [id number] [facility] 18:01:00 23:59:00 Woody 2020-06-30 2020-06-30 Outpatient [facility] [id number] Common 00:00:00 00:00:00 [facility] 2019-03-29 2019-03-29 Out[facility] [id number] Common 10:30:00 10:30:[address] [facility] 2019-03-24 2019-03-24 Outpatient [facility] [id number] Common 09:58:00 09:58:[address] [facility] 2019-03-23 2019-03-23 Out[facility] [id number] Common 15:09:00 15:09:[address] [facility] 2018-12-28 2018-12-28 Outpatient [facility] [id number] Common 11:15:00 11:15:[address] [facility] 2018-11-04 2018-11-04 Outpatient [facility] [id number] Common 09:30:00 09:30:[address] [facility] 2018-09-30 2018-09-30 Outpatient [facility] [id number] Common 10:45:00 10:45:[address] [facility] 2018-06-29 2018-06-29 Outpatient [facility] [id number] Common 10:30:00 10:30:[address] [facility] 2018-05-28 2018-05-28 Outpatient [facility] [id number] Common 10:26:00 10:26:[address] [facility] 2018-05-10 2018-05-10 Outpatient [facility] [id number] Common 13:00:00 13:00:[address] [facility] 2018-05-05 2018-05-05 Out[facility] [id number] Common 08:31:00 08:31:[address] [facility] 2018-04-30 2018-04-30 Outpatient [facility] [id number] Common 11:09:00 11:09:[address] [facility] 2018-04-15 2018-04-15 Out[facility] [id number] Common 16:14:00 16:14:[address] [facility] 2018-04-15 2018-04-15 Out[facility] [id number] Common 08:15:00 08:15:[address] [facility] 2018-02-25 2018-02-25 Outpatient [facility] [id number] Common 14:45:00 14:45:[address] [facility] 2017-12-09 2017-12-09 Outpatient [facility] [id number] Common 08:18:00 08:18:[address] [facility] 2017-12-09 2017-12-09 Out[facility] [id number] Common 08:15:00 08:15:[address] [facility] 2017-12-09 2017-12-09 Outpatient [facility] [id number] Common 08:14:00 08:14:[address] [facility] Results Test Description Test Time Test Comments Results Result Comments Source Fungus culture + smear 2022-03-18 20:38:32 Test Item Value Reference Range Interpretation Comme nts Result (test code = 6463-4) No fungus isolated in 28 days Fungus Smear (test code = 1406) [id number] 20:38:32 Test Item Value Reference Range Interpretation Comments CULTURE (BEAKER) (test No fungus isolated in code = 1095) 28 days FUNGUS SMEAR (BEAKER) No fungi seen (test code = 1406) Tissue [id number] 13:06:13 Test Item Value Reference Range Interpretation Comments Case Report (test code Surgical Pathology = 104) Report Case: [id number] Authorizing Provider: Lashawn Watts Collected: 02/12/2022 02:28 PM MD Adam Ordering Location: [facility] Surg 5th Floor Received: 02/17/2022 10:19 AM Pathologist: Izzy Greenberg MD Specimen: Bone, Left Femur Bone DIAGNOSIS (test code = [id number] 3220) FuZzEwMzNcZnRuYmpcdWMx IHtccnRmMVxlcGljOTYwMl awbjHvHQMieKVlN7Vjpnnr GAmhSG3aDE6aiNuztJMgjV DwMFCrMnHek4yaz425oGIc q3ooKLJWofqxxNq3lWgpO6 6fd0L7YdtgI32ewCPgCWX8 EFIsNGLemTGoQPDxQZF9WG KthDYvY9geVVNdAY0rutyd OLxmFFjtJKVzsIV0BWUvpK YhU3JiERCdVAddGTTsfwq6 YkFsUb1arADalQtzTGhpPR SmRBPvJAnlYSNrJaLuPa0I FHzyRXZFIFXDYC3ATpsoQr tXNGZGBiilQAPyHSCCH81P CFXSBZrUEK0IIQPIC85rSX tXLBWQRVPPDZWPJ5NLMONz LdsXWh3OYAWdOA8DYRCVNH 9ERUxJTkcgVFlQRSBDSEFO A0IJKRmnYZMeU38hiKRoiB jftCGhGY3pE4ISUYBASSvT BI8PRQ7BHJtlVNRuEQEYYR dOHWpYLAITA6XgAPWJPKzQ IL9NDGrtDWT4m8qibRAlUX NzdGUxODAwMFxhbnNpXGRl RayrconyONMnMZG0jbYoWI SoPChzTLQvJDacXb6rqLYy nTwsTiOpWUXta9wxtvODxa ufiYn0g4yhYOVmPzH4yTMb GNdnH7fdgeKevREuDTWtWQ y0yC55HCVndG2qcQHmOSev ixErQxP4CAxgFCYkNnR2CX OqxCRcOUBeJ5fvPDEoPAtz JEBvFOdrlVThIXB7kMeus1 U1tWPujEVtdPglFlVmTyFk SzAFi9YxCUx0rYxjY3MoYW FaZvF5zROuWKDhACxbKSQf LNHtuwG6qW10UHzgtcZ9fV Fvp5Qmp24ib106qH9qnUMr RRW3ESOvIEHoxNNdSQEcJC T3KGHokNGwG2byPFYnTN4y fsnxRIkkCUhoRUYfoXP1VP CxlEZfX6GxTDNnGZjnCESx leq2OzTgNn2mxJAyeUrmBP pxe9mib2rcxDVmSue7JATh NdQtOuavVPurm5Uwd8qgTZ Lovt3aWOB7rVEuuVqag8J9 qKKaAEBxeYBxMJMsUS8qqC ZxMJBnyJ8fziijSTLwTwWw lypwZFTruOqkqqCbLk2dgP hxOVG3TPgdG9rleO1cMrD9 MDlcU0tkbM0sCHg4UMxaMT EcfBG5wzA6QGXziEMnV3Fd zJ4gXAKbJG9biho6p0loRI Z4GUlpNDTbPaR1jlA9KCVg vKJmIKUbuCtuNJxrj509CP P7HeOuAYQwt8KrP4PclDqo S20nlIwrP24hBYEkmCyekD 1iiRhjzB2fYuYcHoKoACsa bLvnBG0qJXPuX1ulpUQpCF JkXHUlV7sxJgYaqA8erFzd FHweqmAkWVJrTxk8UINbsJ YrSPJhXsy7HRRdNDVtC09x nxjnFIX4qR9qv6hto3NwUA plHWT8ZCYrb16qPGbraiD4 KZM8WO04QfnhSzT4C8nsMQ J9fQ== COMMENT (test code = [id number] 3358) Vtj5rgo7PevOEigUQyHBvx dYChqrUqng21kUV2kB38XG 2gARHgQaI2VFVyzkU2Aoe9 UBGfHRKrbZDeL960w0jmx3 cstmQfpPT5mRnrLMLtozzb NmO0KHrhGVUxvwwiHGg7ZP efWENkwLZ8JBWktVPoI2Ru RBUlHC6vqmh4AYQ0PJowNH HhOnH6CIJxhOVxKXUpsJhw RShgi137QPA1QyVyTIZjjr ZqxIzzhA7uHbKwDCYBDYT0 fLBqsrOyoEzoIEO5TWVxCL X2sOPsJNHscYMpgnHkamBa zRAmzvvjDL9soXHmtZfceA s9gVAuADDyfV3yD8DpNBPt deRakAD6dH8dMEiyHMKoV4 8dgLMyBOGjFhjqWRG7 CPT Code(s) (test code s3lgjZSoKWRzqKT9RyVfFR = 3851) Sib8cjw8JytCCduEOeCRea sZLrkyZsww04hJV1bK18SD 1uMBElEgG8QEApmqR4Bpz5 POWkKUJeeVJpL799h7nyo1 xzysPyhVS8dOjjEFXpibrl DvT1AZelBGSwkshcJUh5FP xuRMZjkWW1IDCblPSkU4Zy MOJqHR7fxfu8CPK0UWkvLS NcVeR3EQTijCPmXGYwiGvi RUyml649MSG0BnHuBAHaet DnbKsbzK8lNfAlNEC1GDRq NTsgODgzMTFccGFyfQ== CLINICAL HISTORY (test u3jamNDcEHKelQJ6TsDaFX code = 3356) Ubv7jvb2XgpIZsvWZaWEuy iKQgnsTrlt60wHR5eY78AE 2xETTbTfW9LWHqqwZ2Kzb6 UHZsNOXlmCQaI015a2tiy8 nysyJlvFL7bBmtHCPffnog HkF6YYkwOSXncgboQAv4UV yjUGIeoVT3BCEaoWVlA0Cf RQIdRG3mzcf6SRK4RSfhEY XtVkO4PUMneCPxZRYnhNgr DWyqp495YPI5MiMeWIYfuv IniFjyfD1jAiOuGQQEYTZh dWdfelYpUSAxt6M8zHDzCS Rta9Bzz6LoPARbpk6= SPECIMEN SOURCE (test j7donBJuLYJhzAR3VcLkKK code = 3377) Fpx7ndd1SztAKliDFwAKcy vLQcfcCcxr42yET7oG10JG 9fCCVhEvB7JHYuxlD8Osk0 EAYjSQTbwHSxP315w2lie3 glwuNbtNA1sCaeALAhuaui NwH1BToeKBGsjqjrHCh9PV ynXFOimFP8GWIrlWEgR5Kj AQTyNA2lkra9RNT6ZSyeQC CuTdH4KRWqeIFvDRPwoAvs VSimd559KDG8HyIcZUJikb YyiOmpfC3dXqDfOWXBALB6 IGZlbXVyIGJvbmVccGFyfQ == GROSS DESCRIPTION (test n2uvwDVgDSEoeXL9WqNwGO code = [id number]) Skk5upw9QhsVWhvIAoRKhi vGMergFxvn11rVO8xU10SD 2mRTYvCaE8OFHqmzG7Cdo9 OCPbFSBlkKVsY742f9thh4 lipxVqrLV1CSPcMZHzN0Xf BP0wDHPdyZUlE36fkSGqYH Q0UNGlVIYmvAMzQMOhEYK1 GWNzzMHqJ6tmKEYtAN4xhd clVQyqXEwuRXTbpVH1PSOp yJNrD0ScEZNaOVxkUDAwqy r6DdWfNx0mqXVnmPymJEuz TAJwn5sfXFLurDBvAPO5UP xbwNPwXPXhIQQcUAq5VQIk YLxhjMGiZD7sjCtwMxqbuD xlk9WltCInCRueAXKpFKTa TShkFXUmI6SJFVPmYRh5QY a3GqQkXNs3CBwgS4EQKOOd RXV1UfYzREkzFqY0CJk4QT UZDo8wXAx3TBizGjDkCBJ4 VuH4FFhqrCJmUNwjXfmfQC qcRWWnzZLjQEolxwL1UNUm PYchYLWqMjTtZZ9wUz2uTF 3vfSHlZZFiGnRpC6FiYSNc H3DbgxHvDEtjJHGmwr9pqG boSVodFxHjYHGhq3a6eUA8 iZBgyAU5gOTmoTruFKiqNo 0pyMP7fB9aUOWeWXCaWQMe qVEpCRDwd19dWwIituNkNK Qxoq8kgf89sxXuxRKmQDQq IeSnc70mQKyjzCnwPYN8TG EdKEJme83esND8bLYssYKx CA1cVUxhyK6wmwwfD2SmIJ UqHLRtnYXnlD4jgsOnOKVs dZLkdvXyrrNneLN1aUckhb LusqKpEV2dsTcxDQV3KNTk FQE0MDOvN79wXVj4QAzxDI LgO0Act65gMJM8rhFaWMAo YWwgdGFuLXdoaXRlLCBmYX U5bDCsthJwEcpxbj39ncUh zOPml9RfTcYzUN1gAlNhzj SuYW22YKFtnrKyr6AwoDwa bxRdZYBmRTQ2Xl8foFHaTV XxguFSBX5HLk8yJBRviEUs DVYlX6ZvZ9wgqGFrrZlqos DHKN4jtgR7APJiqKVyGYL8 DA5krTxjJYEwS3OlV5Lbnu R6AZXcoi2= MICROSCOPIC DESCRIPTION w5uioTRzENJpcVG1YtTrSG (test code = 3371) Ofu2she7HhkXNyrNTqELsm qLZegvEyyp50aSH2gV75JM 7kTFSeRwR7OKOkioT8Vfs5 UIZjUECecWSyQ809b3jmm7 eqceToiCV5iTyqPOZtmzyx OvV0JEecGWTbvpkbWHu2IP ziXNFywBC6IVHafGSqI3Yl SPNlLW5bxfu2UKE5XMffAL PxBzL6KZTdyXYwRDFynEwd GJdoq889WBB5UjTdKPZhup WqhVwdbX9wQnHmVYHHONIE W8RJLAEqqTMeiS== [facility] [id number] 13:06:13Surgical Pathology Report Case: [id number] Authorizing Provider: Lashawn Watts Collected: 02/12/2022 02:28 PM MD Adam Ordering Location: [facility] Med Surg 5th Floor Received: 02/17/2022 10:19 AMPathologist: Izzy Greenberg MD Specimen: Bone, Left Femur Bone BONE, LEFT FEMUR, BIOPSY:- BONE FRAGMENTATION, INTER-TRABECULAR FIBROSIS AND REMODELING TYPE CHANGES (see comment)- SUTURE GRA NULOMA- NEGATIVE FOR MALIGNANCY Signing Pathologist Direct Phone Line: [phone] signed by Izzy Greenberg MD on 02/25/2022 at 1:06 PMFeatures suggest fracture repair or chronic osteomyelitis. Clinical correlation is recommended.17777; 12451Dxqqtoxoqt vascular disease Left femur boneA. Bone.Received in formalin labeled with the patient's information and labeled "bone" is a soliz-brown piece of bone with attached soft tissue and hemorrhage. The specimen measures in curvilinearlength 5 x 2.5 x 1 cm. It is sectioned to reveal soliz-white, fatty and fibrous cut surface. Highway Painter sections are submitted in A1-A3., after decalcification BH/ew PERFORMEDBASIC METABOLIC [id number] 06:32:32 Test Item Value Reference Range Interpretation Comments SODIUM (BEAKER) 138 meq/L 135-148 (test code = 381) POTASSIUM (BEAKER) 4.6 meq/L 3.6-5.5 (test code = 379) CHLORIDE (BEAKER) 106 meq/L 98-106 (test code = 382) CO2 (BEAKER) (test 23 meq/L 20-29 code = 355) BLOOD UREA NITROGEN 39 mg/dL 10-26 H (BEAKER) (test code = 354) CREATININE (BEAKER) 2.48 mg/dL 0.50-1.20 H (test code = 358) GLUCOSE RANDOM 97 mg/dL 70-110 (BEAKER) (test code = 652) CALCIUM (BEAKER) 9.0 mg/dL 8.5-10.5 (test code = 697) EGFR (BEAKER) (test 26 mL/min/1.73 ESTIMA NATE GFR IS code = 1092) sq m NOT ACCURATE CREATININE CLEARANCE IN PREDICTING GLOMERULAR FILTRATION RATE . ESTIMATED GFR I S NOT APPLICABLE FOR DIALYSIS PATIEN TS. Assistant Hvac Mechanic ID - [id number] ID - RBFW93Ylwbwbxc ID - BDPM20Yexfsmtp ID - GKBU44Yxaceaei ID - NSHW55Rfbnnwgm ID - JVZY84Zpabbkff ID - FMCI94Gqluzqco ID - ELXV63Ctsdhyuq ID - QATC59Gemzqadr ID - GIIF99Sksasklw ID - QLAO34Vkqqbcqb ID - YNCJ89Qwliozfw ID - MPMJ66VZX W/PLT COUNT & AUTO [id number] 06:26:33 Test Item Value Reference Range Interpretation Comments WHITE BLOOD CELL COUNT (BEAKER) 9.0 K/ L 4.0-10.0 (test code = 775) RED BLOOD CELL COUNT (BEAKER) 2.68 M/ L 4.20-5.80 L (test code = 761) HEMOGLOBIN (BEAKER) (test code = 8.7 GM/DL 13.0-16.8 L 410) HEMATOCRIT (BEAKER) (test code = 27.3 % 36.0-50.0 L 411) MEAN CORPUSCULAR VOLUME (BEAKER) 101.9 fL 82.0-99.0 H (test code = 753) MEAN CORPUSCULAR HEMOGLOBIN 32.5 pg 27.0-33.0 (BEAKER) (test code = 751) MEAN CORPUSCULAR HEMOGLOBIN CONC 31.9 GM/DL 32.0-36.0 L (BEAKER) (test code = 752) RED CELL DISTRIBUTION WIDTH 15.5 % 12.0-15.0 H (BEAKER) (test code = 412) PLATELET COUNT (BEAKER) (test 375 K/CU MM 150-430 code = 756) MEAN PLATELET VOLUME (BEAKER) 9.4 fL 6.0-11.5 (test code = 754) NUCLEATED RED BLOOD CELLS 0 /100 WBC 0-0 (BEAKER) (test code = 413) NEUTROPHILS RELATIVE PERCENT 42 % (BEAKER) (test code = 429) LYMPHOCYTES RELATIVE PERCENT 40 % (BEAKER) (test code = 430) MONOCYTES RELATIVE PERCENT 7 % (BEAKER) (test code = 431) EOSINOPHILS RELATIVE PERCENT 9 % (BEAKER) (test code = 432) BASOPHILS RELATIVE PERCENT 1 % (BEAKER) (test code = 437) NEUTROPHILS ABSOLUTE COUNT 3.81 K/ L 1.80-8.00 (BEAKER) (test code = 670) LYMPHOCYTES ABSOLUTE COUNT 3.56 K/ L 1.48-4.50 (BEAKER) (test code = 414) MONOCYTES ABSOLUTE COUNT (BEAKER) 0.65 K/ L 0.00-1.30 (test code = 415) EOSINOPHILS ABSOLUTE COUNT 0.85 K/ L 0.00-0.50 H (BEAKER) (test code = 416) BASOPHILS ABSOLUTE COUNT (BEAKER) 0.11 K/ L 0.00-0.20 (test code = 417) IMMATURE GRANULOCYTES-RELATIVE 0 % 0-0 PERCENT (BEAKER) (test code = 2801) POC-Glucose [id number] 00:24:00 Test Item Value Reference Range Interpretation Comments POC-Glucose Meter (test 110 mg/dL 70-110 : TE STED AT [facility] code = 1538) [address] [facility] [address]: Assistant Hvac Mechanic/Techni yadi ID = [id number] for Tayla Fernandez Lab Interpretation (test Normal code = 11688-6) [facility] [id number] 00:24:00 Test Item Value Reference Range Interpretation Comments POC-GLUCOSE METER 110 mg/dL 70-110 : TESTED A T [facility] [address] (BEAKER) (test code [address], = 1538) [facility] [place] [address]: Assistant Hvac Mechanic/Techni yadi ID = [id number] for [place]rera Tayla arroyo BASIC METABOLIC [id number] 05:58:29 Test Item Value Reference Range Interpretation Comments SODIUM (BEAKER) 143 meq/L 135-148 (test code = 381) POTASSIUM (BEAKER) 4.7 meq/L 3.6-5.5 (test code = 379) CHLORIDE (BEAKER) 110 meq/L 98-106 H (test code = 382) CO2 (BEAKER) (test 24 meq/L 20-29 code = 355) BLOOD UREA NITROGEN 38 mg/dL 10-26 H (BEAKER) (test code = 354) CREATININE (BEAKER) 2.64 mg/dL 0.50-1.20 H (test code = 358) GLUCOSE RANDOM 86 mg/dL 70-110 (BEAKER) (test code = 652) CALCIUM (BEAKER) 9.4 mg/dL 8.5-10.5 (test code = 697) EGFR (BEAKER) (test 24 mL/min/1.73 ESTIMA NATE GFR IS code = 1092) sq m NOT ACCURATE CREATININE CLEARANCE IN PREDICTING GLOMERULAR FILTRATION RATE . ESTIMATED GFR I S NOT APPLICABLE FOR DIALYSIS PATIEN TS. Assistant Hvac Mechanic ID - LITOOperator ID - LITOOperator ID - LITOOperator ID - LITOOperator ID - LITOOperator ID - LITOOperator ID - LITOOperator ID - LITOOperator ID - LITOOperator ID - LITOOperator ID - LITOOperator ID - LITOOperator ID - LITOU/S, RENAL, [id number] 03:10:00Reason for exam:->n[facility] 1955 Sex: MFINAL REPORT TECHNIQUE: Grayscale ultrasound of the kidneys and bladder with analysis. INDICATION: nina. COMPARISON: None. FINDINGS: RIGHT KIDNEY: The right kidney is 10.5 x 4.8 x 4.7 cm. Cortical thickness is 1.3 cm. Parenchyma is echogenic. No solid mass lesions. No hydronephrosis. Renal artery and vein are patent. LEFT KIDNEY: The left kidney is 10.7 x 5.4 x 4.9 cm. Cortical thickness is 1.2 cm. Parenchyma is echogenic. There are simple cysts up to 2.6 cm diameter. No solid mass lesions. No hydronephrosis. Renal artery and vein are patent. BLADDER: Unremarkable. IMPRESSION:Bilateral medical renal disease. There is no hydronephrosis. Signed: Jamila Mariee MDReport Verified Date/Time: 02/19/2022 03:10:21 SARS-CoV2/RT-PCR (Asymptomatic ONLY)2022-02-18 21:23:23 Test Item Value Reference Interpretation Comments Range SARS-COV2/RT-PCR Negative Negative The SARS-Co V-2 (test code = target nucleic 04530-0) acids are not detected in [facility] specimen. Negat chester results do not preclude SARS-C oV-2 infection and should not be u sed as the sole bas is for patient management decisions. Nega tive results must be combined with clinical observations, patient history , and epidemiolog ical information. A false negative result may occu r if a specimen is improperly collected, transported or handled. This ARS CoV-2 test is a rapid, real-yusuf e RT-PCR test intended for e qualitative detection of nucleic acid fr om SARS-CoV-2 in a nasopharyngeal swab specimen [facility] from individual s suspected of COVID-19 by the ir healthcare provider. RAMON (test code = This test has been RAMON) authorized by FDA under an EUA for use by authorized laboratories. This test is only authorized for the duration of the declaration that circumstances exist justifying the authorization of emergency use of in vitro diagnostic tests for detection and/or diagnosis of COVID-19 under Section 564(b)(1) of the Federal Food, Drug and Cosmetic Act, 21 U.S.C. 360bbb-3(b)(1), unless the authorization is terminated or revoked sooner. Fact Sheet for Healthcare Providers: https://www.[employer]/Documents/Xp ert%20Xpress%20SAR S%20CoV-2/Fact%20S heets/302-3802%20S ARS-COV-2%20HEALTH CARE%20PROVIDERS%2 0FACT%20SHEET.pdf Fact Sheet for Healthcare Patients: https://wwwMogi/Documents/Xp ert%20Xpress%20SAR S%20CoV-2/Fact%20S heets/302-3801%20S ARS-COV-2%20PATIEN T%20FACT%20SHEET.p df Lab Interpretation Normal (test code = 24791-5) [facility])2022-02-18 21:23:23 Test Item Value Reference Range Interpretation Comments SARS-COV2/RT-PCR Negative Negative The SARS-Co V-2 target (test code = nucleic acids a re not 9749459) detected in thi s specimen. Negative result s do not preclude SARS-C oV-2 infection and s hould not be used as the afshin e basis for patient managem ent decisions. Nega tive results must be combine d with clinical observ ations, patient history , and epidemiological information. A false negativ e result may occur if a spec imen is improperly josefina ected, transported or handled. This SARS CoV-2 test is a rapid, real-time RT-PC R test intended for th e qualitative detection of nu cleic acid from SARS-CoV-2 in a nasopharyngeal swab specimen collected from individuals suspected of CO VID-19 by their healthcar e provider. This test has been authorized by FDA under an EUA for use by authorized laboratories. This test is only authorized for the duration of the declaration that circumstances exist justifying the authorization of emergency use of in vitro diagnostic tests for detection and/or diagnosis of COVID-19 under Section 564(b)(1) of the Federal Food, Drug and Cosmetic Act, 21 U.S.C. 360bbb-3(b)(1), unless the authorization is terminated or revoked sooner. Fact Sheet for Healthcare Providers: https://www.[employer] m/Documents/Xpert%20Xpress%20SARS%20CoV-2/Fact%20Sheets/302-3802%03JXTL-STH-5%20 HEALTHCARE%20PROVIDERS%20FACT%20SHEET.pdf Fact Sheet for Healthcare Patients: https://www.[employer]/Documents/Xpert%20Xp ress%20SARS%20CoV-2/Fact%20Sheets/302-3801%46VFQP-CHN-7%20PATIENT%20FACT%20SHEET .pdfBASI METABOLIC [id number] 06:35:26 Test Item Value Reference Range Interpretation Comments SODIUM (BEAKER) 145 meq/L 135-148 (test code = 381) POTASSIUM (BEAKER) 4.3 meq/L 3.6-5.5 (test code = 379) CHLORIDE (BEAKER) 109 meq/L 98-106 H (test code = 382) CO2 (BEAKER) (test 25 meq/L 20-29 code = 355) BLOOD UREA NITROGEN 34 mg/dL 10-26 H (BEAKER) (test code = 354) CREATININE (BEAKER) 2.97 mg/dL 0.50-1.20 H (test code = 358) GLUCOSE RANDOM 72 mg/dL 70-110 (BEAKER) (test code = 652) CALCIUM (BEAKER) 9.3 mg/dL 8.5-10.5 (test code = 697) EGFR (BEAKER) (test 21 mL/min/1.73 ESTIMA NATE GFR IS code = 1092) sq m NOT ACCURATE CREATININE CLEARANCE IN PREDICTING GLOMERULAR FILTRATION RATE . ESTIMATED GFR I S NOT APPLICABLE FOR DIALYSIS PATIEN TS. Assistant Hvac Mechanic ID - [id number] ID - [id number] ID - BIFTBHMFH780Giqrtgle ID - QCQVBIFVX270Owghfzew ID - ZVQEJGWQE551Zybodrgf ID - BGSAFDRUD090Jogytixo ID - JGBVNGCJO906Bqltnsed ID - JRGEWEHUV431Xxnnmnfd ID - RBMOWLYXY404Hharnkjg ID - ZOWXZUCAT695Aggfcuyz ID - QJMCGOJEM698Opaburxa ID - FUESVVRQH433Yywjmrha ID - [id number], CHEST, PA OR AP, 1 [id number] 16:28:00VAT/Infusion Therapy Nurse to Call Radiology Department when patient is readyReason for exam:->Antibiotics greater than 7 days [facility] 1955 Sex: MFINAL REPORT Exam: Chest radiograph Clinical History: Need for antibiotics Findings:The cardiomediastinal silhouette and lungs are normal. The regional skeleton and soft tissue are unremarkable. There is no evidence of pleural effusion or pneumothorax. The tip of the left arm PICC overlies the cavoatrial junction. The patient is status post median sternotomy. Impression: No radiographic evidence of acute cardiopulmonary disease. Signed: Flor Sharif MDReport Verified Date/Time: 02/17/2022 16:28:21 Reading Location: [facility] Radiology Reading Room BASI METABOLIC [id number] 06:49:08 Test Item Value Reference Range Interpretation Comments SODIUM (BEAKER) 141 meq/L 135-148 (test code = 381) POTASSIUM (BEAKER) 4.9 meq/L 3.6-5.5 (test code = 379) CHLORIDE (BEAKER) 112 meq/L 98-106 H (test code = 382) CO2 (BEAKER) (test 21 meq/L 20-29 code = 355) BLOOD UREA NITROGEN 30 mg/dL 10-26 H (BEAKER) (test code = 354) CREATININE (BEAKER) 2.51 mg/dL 0.50-1.20 H (test code = 358) GLUCOSE RANDOM 80 mg/dL 70-110 (BEAKER) (test code = 652) CALCIUM (BEAKER) 8.7 mg/dL 8.5-10.5 (test code = 697) EGFR (BEAKER) (test 26 mL/min/1.73 ESTIMA NATE GFR IS code = 1092) sq m NOT ACCURATE CREATININE CLEARANCE IN PREDICTING GLOMERULAR FILTRATION RATE . ESTIMATED GFR I S NOT APPLICABLE FOR DIALYSIS PATIEN TS. Assistant Hvac Mechanic ID - [id number] ID - [id number] ID - PMLD81Kpwuovvm ID - RHNR34Aguiosmb ID - RPOM93Rwrzsrsy ID - TWZN13Ltbvoajy ID - WIZW57Bnupzvok ID - XTXT34Fqbmfahi ID - DSENSONOperator ID - DSENSONOperator ID - DSENSONOperator ID - DSENSONOperator ID - DSENSONBLOOD [id number] 19:02:29 Test Item Value Reference Range Interpretation Comments CULTURE (BEAKER) (test No growth in 5 days code = 1095) BLOOD [id number] 19:02:29 Test Item Value Reference Range Interpretation Comments CULTURE (BEAKER) (test No growth in 5 days code = 1095) BASIC METABOLIC [id number] 15:25:26 Test Item Value Reference Range Interpretation Comments SODIUM (BEAKER) 143 meq/L 135-148 (test code = 381) POTASSIUM (BEAKER) 5.5 meq/L 3.6-5.5 (test code = 379) CHLORIDE (BEAKER) 112 meq/L 98-106 H (test code = 382) CO2 (BEAKER) (test 24 meq/L 20-29 code = 355) BLOOD UREA NITROGEN 29 mg/dL 10-26 H (BEAKER) (test code = 354) CREATININE (BEAKER) 2.58 mg/dL 0.50-1.20 H (test code = 358) GLUCOSE RANDOM 112 mg/dL 70-110 H (BEAKER) (test code = 652) CALCIUM (BEAKER) 9.1 mg/dL 8.5-10.5 (test code = 697) EGFR (BEAKER) (test 25 mL/min/1.73 ESTIMA NATE GFR IS code = 1092) sq m NOT ACCURATE CREATININE CLEARANCE IN PREDICTING GLOMERULAR FILTRATION RATE . ESTIMATED GFR I S NOT APPLICABLE FOR DIALYSIS PATIEN TS. Assistant Hvac Mechanic ID - LITOOperator ID - LITOOperator ID - LITOOperator ID - LITOOperator ID - LITOOperator ID - LITOOperator ID - LITOOperator ID - LITOOperator ID - LITOOperator ID - LITOOperator ID - LITOOperator ID - LITOOperator ID - JOSSY ANAEROBIC [id number] 13:12:43 Test Item Value Reference Range Interpretation Comments CULTURE (BEAKER) (test No anaerobes isolated code = 1095) Anaerobic [id number] 13:11:59 Test Item Value Reference Range Interpretation Comments Result (test code = No anaerobes isolated 6463-4) [facility] [id number] 13:11:59 Test Item Value Reference Range Interpretation Comments CULTURE (BEAKER) (test No anaerobes isolated code = 1095) Surgically obtained culture + gram [id number] 10:40:18 Test Item Value Reference Range Interpretation Comments Result (test code = 6463-4) No growth Gram Stain Result (test No organisms seen code = 1123) [facility] + GRAM [id number] 10:40:18 Test Item Value Reference Range Interpretation Comments CULTURE (BEAKER) (test No growth code = 1095) GRAM STAIN RESULT <1+ White blood cells (BEAKER) (test code = seen 1123) GRAM STAIN RESULT No organisms seen (BEAKER) (test code = 13372) SURGICALLY OBTAINED CULTURE + GRAM [id number] 10:39:44 Test Item Value Reference Range Interpretation Comments CULTURE (BEAKER) (test No growth code = 1095) GRAM STAIN RESULT No White blood cells (BEAKER) (test code = seen 1123) GRAM STAIN RESULT No organisms seen (BEAKER) (test code = 37591) CBC W/PLT COUNT & AUTO [id number] 06:20:13 Test Item Value Reference Range Interpretation Comments WHITE BLOOD CELL COUNT (BEAKER) 9.2 K/ L 4.0-10.0 (test code = 775) RED BLOOD CELL COUNT (BEAKER) 2.73 M/ L 4.20-5.80 L (test code = 761) HEMOGLOBIN (BEAKER) (test code = 8.9 GM/DL 13.0-16.8 L 410) HEMATOCRIT (BEAKER) (test code = 29.1 % 36.0-50.0 L 411) MEAN CORPUSCULAR VOLUME (BEAKER) 106.6 fL 82.0-99.0 H (test code = 753) MEAN CORPUSCULAR HEMOGLOBIN 32.6 pg 27.0-33.0 (BEAKER) (test code = 751) MEAN CORPUSCULAR HEMOGLOBIN CONC 30.6 GM/DL 32.0-36.0 L (BEAKER) (test code = 752) RED CELL DISTRIBUTION WIDTH 17.0 % 12.0-15.0 H (BEAKER) (test code = 412) PLATELET COUNT (BEAKER) (test 361 K/CU MM 150-430 code = 756) MEAN PLATELET VOLUME (BEAKER) 9.6 fL 6.0-11.5 (test code = 754) NUCLEATED RED BLOOD CELLS 0 /100 WBC 0-0 (BEAKER) (test code = 413) NEUTROPHILS RELATIVE PERCENT 56 % (BEAKER) (test code = 429) LYMPHOCYTES RELATIVE PERCENT 27 % (BEAKER) (test code = 430) MONOCYTES RELATIVE PERCENT 8 % (BEAKER) (test code = 431) EOSINOPHILS RELATIVE PERCENT 9 % (BEAKER) (test code = 432) BASOPHILS RELATIVE PERCENT 1 % (BEAKER) (test code = 437) NEUTROPHILS ABSOLUTE COUNT 5.17 K/ L 1.80-8.00 (BEAKER) (test code = 670) LYMPHOCYTES ABSOLUTE COUNT 2.47 K/ L 1.48-4.50 (BEAKER) (test code = 414) MONOCYTES ABSOLUTE COUNT (BEAKER) 0.70 K/ L 0.00-1.30 (test code = 415) EOSINOPHILS ABSOLUTE COUNT 0.79 K/ L 0.00-0.50 H (BEAKER) (test code = 416) BASOPHILS ABSOLUTE COUNT (BEAKER) 0.05 K/ L 0.00-0.20 (test code = 417) IMMATURE GRANULOCYTES-RELATIVE 0 % 0-0 PERCENT (BEAKER) (test code = 2801) WOUND CULTURE + GRAM [id number] 11:29:11 Test Item Value Reference Range Interpretation Comments CULTURE (BEAKER) PSEUDOMONAS A <1+ Pseudom onas (test code = 1095) AERUGINOSA aeruginos a Amikacin (test code S = 1) Cefazolin (test R code = 9) Cefepime (test code S = 51) Ceftazidime (test S code = 27) Gentamicin (test S code = 18) Levofloxacin (test S code = 22) Meropenem (test S code = 34) Piperacillin + S Tazobactam (test code = 29) Tigecycline (test R code = 133) Tobramycin (test S code = 25) GRAM STAIN RESULT 3+ White blood (BEAKER) (test code cells seen = 1123) GRAM STAIN RESULT <1+ gram negative (BEAKER) (test code rods = 177724) <1+ Skin floraBASIC METABOLIC [id number] 06:35:58 Test Item Value Reference Range Interpretation Comments SODIUM (BEAKER) 141 meq/L 135-148 (test code = 381) POTASSIUM (BEAKER) 5.2 meq/L 3.6-5.5 (test code = 379) CHLORIDE (BEAKER) 111 meq/L 98-106 H (test code = 382) CO2 (BEAKER) (test 22 meq/L 20-29 code = 355) BLOOD UREA NITROGEN 28 mg/dL 10-26 H (BEAKER) (test code = 354) CREATININE (BEAKER) 2.87 mg/dL 0.50-1.20 H (test code = 358) GLUCOSE RANDOM 82 mg/dL 70-110 (BEAKER) (test code = 652) CALCIUM (BEAKER) 8.8 mg/dL 8.5-10.5 (test code = 697) EGFR (BEAKER) (test 22 mL/min/1.73 ESTIMA NATE GFR IS code = 1092) sq m NOT ACCURATE CREATININE CLEARANCE IN PREDICTING GLOMERULAR FILTRATION RATE . ESTIMATED GFR I S NOT APPLICABLE FOR DIALYSIS PATIEN TS. Assistant Hvac Mechanic ID - [id number] ID - OGHC96Kfozxwwx ID - CJKO31Aiiodnsx ID - TTQB57Wnxvjgce ID - PTCV99Idfbncbc ID - UVPS46Lzerpenm ID - CQVS17Ywfhjors ID - QYQM14Rkajdkcr ID - WADJ63Qikzhazb ID - LCHF35Xqcfpews ID - LCSJ10Tglnkugp ID - VMSS27Krpjgwbb ID - [id number] W/PLT COUNT & AUTO [id number] 05:58:08 Test Item Value Reference Range Interpretation Comments WHITE BLOOD CELL COUNT (BEAKER) 8.8 K/ L 4.0-10.0 (test code = 775) RED BLOOD CELL COUNT (BEAKER) 2.80 M/ L 4.20-5.80 L (test code = 761) HEMOGLOBIN (BEAKER) (test code = 9.2 GM/DL 13.0-16.8 L 410) HEMATOCRIT (BEAKER) (test code = 30.0 % 36.0-50.0 L 411) MEAN CORPUSCULAR VOLUME (BEAKER) 107.1 fL 82.0-99.0 H (test code = 753) MEAN CORPUSCULAR HEMOGLOBIN 32.9 pg 27.0-33.0 (BEAKER) (test code = 751) MEAN CORPUSCULAR HEMOGLOBIN CONC 30.7 GM/DL 32.0-36.0 L (BEAKER) (test code = 752) RED CELL DISTRIBUTION WIDTH 17.1 % 12.0-15.0 H (BEAKER) (test code = 412) PLATELET COUNT (BEAKER) (test 343 K/CU MM 150-430 code = 756) MEAN PLATELET VOLUME (BEAKER) 9.6 fL 6.0-11.5 (test code = 754) NUCLEATED RED BLOOD CELLS 0 /100 WBC 0-0 (BEAKER) (test code = 413) NEUTROPHILS RELATIVE PERCENT 70 % (BEAKER) (test code = 429) LYMPHOCYTES RELATIVE PERCENT 18 % (BEAKER) (test code = 430) MONOCYTES RELATIVE PERCENT 7 % (BEAKER) (test code = 431) EOSINOPHILS RELATIVE PERCENT 4 % (BEAKER) (test code = 432) BASOPHILS RELATIVE PERCENT 1 % (BEAKER) (test code = 437) NEUTROPHILS ABSOLUTE COUNT 6.16 K/ L 1.80-8.00 (BEAKER) (test code = 670) LYMPHOCYTES ABSOLUTE COUNT 1.60 K/ L 1.48-4.50 (BEAKER) (test code = 414) MONOCYTES ABSOLUTE COUNT (BEAKER) 0.61 K/ L 0.00-1.30 (test code = 415) EOSINOPHILS ABSOLUTE COUNT 0.32 K/ L 0.00-0.50 (BEAKER) (test code = 416) BASOPHILS ABSOLUTE COUNT (BEAKER) 0.04 K/ L 0.00-0.20 (test code = 417) IMMATURE GRANULOCYTES-RELATIVE 0 % 0-0 PERCENT (BEAKER) (test code = 2801) RAD, LEG, [id number] 19:36:00Reason for exam:->fall, pain in proximal tibfib[facility] : 1955 Sex: MFINAL REPORT RAD, LEG, TIBIA \\T\\ FIBULA, 2 VIEWS, RIGHT HISTORY: fall, pain in proximal tibfib COMPARISON: None IMPRESSION:1.Age-indeterminate impacted and mildly angulated fractures ofthe proximal right tibial and fibular metaphyses. 2.Vascular calcifications. 3.Surgical clips project over the medial right thigh. Signed: Nicolas Mathis Verified Date/Time: 02/11/2022 19:36:16 -COV2/RT-PCR ([facility])2022-02-11 18:39:17 Test Item Value Reference Range Interpretation Comments SARS-COV2/RT-PCR Negative Negative The SARS-Co V-2 target (test code = nucleic acids a re not [id number]) detected in thi s specimen. Negative result s do not preclude SARS-C oV-2 infection and s hould not be used as the afshin e basis for patient managem ent decisions. Nega tive results must be combine d with clinical observ ations, patient history , and epidemiological information. A false negativ e result may occur if a spec imen is improperly josefina ected, transported or handled. This SARS CoV-2 test is a rapid, real-time RT-PC R test intended for th e qualitative detection of nu cleic acid from SARS-CoV-2 in a nasopharyngeal swab specimen collected from individuals suspected of CO VID-19 by their healthcar e provider. This test has been authorized by FDA under an EUA for use by authorized laboratories. This test is only authorized for the duration of the declaration that circumstances exist justifying the authorization of emergency use of in vitro diagnostic tests for detection and/or diagnosis of COVID-19 under Section 564(b)(1) of the Federal Food, Drug and Cosmetic Act, 21 U.S.C. 360bbb-3(b)(1), unless the authorization is terminated or revoked sooner. Fact Sheet for Healthcare Providers: https://www.[employer] m/Documents/Xpert%20Xpress%20SARS%20CoV-2/Fact%20Sheets/3023802%06IQOD-SNH-3%20 HEALTHCARE%20PROVIDERS%20FACT%20SHEET.pdf Fact Sheet for Healthcare Patients: https://www.[employer]/Documents/Xpert%20Xp ress%20SARS%20CoV-2/Fact%20Sheets/302-3801%55XJOM-GSB-3%20PATIENT%20FACT%20SHEET .pdfCOMPREHENSIVE METABOLIC [id number] 18:20:57 Test Item Value Reference Range Interpretation Comments TOTAL PROTEIN 6.8 gm/dL 6.0-8.5 (BEAKER) (test code = 770) ALBUMIN (BEAKER) 3.3 g/dL 3.5-5.0 L (test code = 1145) ALKALINE PHOSPHATASE 77 U/L 30-115 (BEAKER) (test code = 346) BILIRUBIN TOTAL 0.3 mg/dL 0.1-1.2 (BEAKER) (test code = 377) SODIUM (BEAKER) (test 141 meq/L 135-148 code = 381) POTASSIUM (BEAKER) 4.7 meq/L 3.6-5.5 (test code = 379) CHLORIDE (BEAKER) 106 meq/L 98-106 (test code = 382) CO2 (BEAKER) (test 24 meq/L 20-29 code = 355) BLOOD UREA NITROGEN 36 mg/dL 10-26 H (BEAKER) (test code = 354) CREATININE (BEAKER) 3.45 mg/dL 0.50-1.20 H (test code = 358) GLUCOSE RANDOM 82 mg/dL 70-110 (BEAKER) (test code = 652) CALCIUM (BEAKER) 9.5 mg/dL 8.5-10.5 (test code = 697) AST (SGOT) (BEAKER) 15 U/L 5-40 (test code = 353) ALT (SGPT) (BEAKER) 7 U/L 5-50 (test code = 347) EGFR (BEAKER) (test 18 mL/min/1.73 ESTIMA NATE GFR IS code = 1092) sq m NOT ACCURATE CREATININE CLEARANCE IN PREDICTING GLOMERULAR FILTRATION RATE . ESTIMATED GFR I S NOT APPLICABLE FOR DIALYSIS PATIEN TS. Assistant Hvac Mechanic ID - [id number] ID - [id number] ID - [id number] ID - [id number] ID - [id number] ID - [id number] ID - [id number] ID - [id number] ID - [id number] ID - [id number] ID - [id number] ID - [id number] ID - [id number] ID - [id number] ID - [id number] ID - [id number] ID - [id number] ID - [id number] ID - [id number]- REACTIVE [id number] 18:18:23 Test Item Value Reference Range Interpretation Comments C-REACTIVE PROTEIN (BEAKER) (test 1.04 mg/dL 0.00-0.50 H code = 676) Assistant Hvac Mechanic ID - [id number] W/PLT COUNT & AUTO [id number] 18:07:01 Test Item Value Reference Range Interpretation Comments WHITE BLOOD CELL COUNT (BEAKER) 9.5 K/ L 4.0-10.0 (test code = 775) RED BLOOD CELL COUNT (BEAKER) 3.01 M/ L 4.20-5.80 L (test code = 761) HEMOGLOBIN (BEAKER) (test code = 9.9 GM/DL 13.0-16.8 L 410) HEMATOCRIT (BEAKER) (test code = 32.0 % 36.0-50.0 L 411) MEAN CORPUSCULAR VOLUME (BEAKER) 106.3 fL 82.0-99.0 H (test code = 753) MEAN CORPUSCULAR HEMOGLOBIN 32.9 pg 27.0-33.0 (BEAKER) (test code = 751) MEAN CORPUSCULAR HEMOGLOBIN CONC 30.9 GM/DL 32.0-36.0 L (BEAKER) (test code = 752) RED CELL DISTRIBUTION WIDTH 17.5 % 12.0-15.0 H (BEAKER) (test code = 412) PLATELET COUNT (BEAKER) (test 468 K/CU MM 150-430 H code = 756) MEAN PLATELET VOLUME (BEAKER) 9.2 fL 6.0-11.5 (test code = 754) NUCLEATED RED BLOOD CELLS 0 /100 WBC 0-0 (BEAKER) (test code = 413) NEUTROPHILS RELATIVE PERCENT 64 % (BEAKER) (test code = 429) LYMPHOCYTES RELATIVE PERCENT 24 % (BEAKER) (test code = 430) MONOCYTES RELATIVE PERCENT 6 % (BEAKER) (test code = 431) EOSINOPHILS RELATIVE PERCENT 4 % (BEAKER) (test code = 432) BASOPHILS RELATIVE PERCENT 1 % (BEAKER) (test code = 437) NEUTROPHILS ABSOLUTE COUNT 6.08 K/ L 1.80-8.00 (BEAKER) (test code = 670) LYMPHOCYTES ABSOLUTE COUNT 2.31 K/ L 1.48-4.50 (BEAKER) (test code = 414) MONOCYTES ABSOLUTE COUNT (BEAKER) 0.60 K/ L 0.00-1.30 (test code = 415) EOSINOPHILS ABSOLUTE COUNT 0.37 K/ L 0.00-0.50 (BEAKER) (test code = 416) BASOPHILS ABSOLUTE COUNT (BEAKER) 0.06 K/ L 0.00-0.20 (test code = 417) IMMATURE GRANULOCYTES-RELATIVE 0 % 0-0 PERCENT (BEAKER) (test code = 2801) CT CERVICAL SPINE W/O [id number] 08:58:38 [facility] 1955 Sex: MExam: CT cervical spine.CLINICAL HISTORY: Unspecified fall.LOCATION: D4.FINDINGS: Multislice axial noncontrast images are obtained through the cervical spine. Sagittal and coronal reconstructed images are obtained and are used in interpretation.There is grade 1 anterolisthesis at C3/C4. Alignment is otherwise within normal limits. There is severe disc space narrowing at C3/C4 and C6/C7. There are moderate anterior osteophytes. There is multilevel mild to moderate facet joint disease. No acute skeletal abnormalities. No fractures. No acute soft tissue abnormalities are noted. There are multilevel posterior osteophyte formation/disc bulges with effacement of the anterior thecal sac and there may be mild to moderate mass effect upon the anterior aspect of the spinal cord. This may be completely evaluated with MRI cervical spine without contrast.IMPRESSION:1. No acute abnormalities.*One or more of the following radiation dose reduction techniques was used: automated exposure control, adjustment of mA and/or KV according to patient size, and/or utilization of iterative reconstruction technique.Electronically signed by: Manpreet Madera MD 01/27/2022 8:58 AM CDT HEAD W/O [id number] 08:54:02 [facility] : 1955 Sex: MExam: CT head without contrast.Clinical History: Unspecified fall.Location: D4.Findings: Multislice axial noncontrast images are obtained through the head. Coronal and sagittal reconstructed images are obtained and are used in interpretation.There is moderate to pronounced diffuse cerebral atrophy advanced for age. There are mild periventricular matter changes. There are several small old lacunar infarcts within the right basal ganglia and right parietal white matter. No areas of abnormal density are otherwiseidentified within the brain. No mass effect. No hydrocephalus. No intra or extra axial hemorrhage orfluid collections are identified. No evidence of acute infarct. There is moderate left maxillary soft tissue swelling/hematoma with similar mild change at the inferior left frontal region. No acute abnormalities are noted of the visualized skeletal structures or sinuses.Impression:1. No acute intracranial abnormalities. There are mild periventricular matter changes with small old lacunar infarcts.2.There is moderate left maxillary soft tissue swelling/hematoma as well as similar mild change at theinferior left frontal region.*One or more of the following radiation dose reduction techniques was used: automated exposure control, adjustment of mA and/or KV according to patient size, and/or utilization of iterative reconstruction technique.Electronically signed by: Manpreet Madera MD 01/27/2022 8:54 AM CDT FACIAL W/O [id number] 08:53:06[facility] : 1955 Sex: MEXAMINATION:CT FACIAL W/O CONTRASTCLINICAL INDICATION:Male, 67 years old with Unspecified fallTECHNIQUE: Axial images were obtained through the facial bones and orbits without intravenous contrast. Sagittal and coronal reconstructions were created from the data.One or more of the following dose reduction techniques were used: Automated exposure control, adjustment of the mA and/or kV according to patient size, and/or iterative reconstruction. COMPARISON: NoneFINDINGS:Soft Tissue: Small left periorbital hematoma and marked adjacent swelling.Bones: The facial bones, including the mandible, are within normal limits. Specifically, there is no evidence of fracture, dislocation, or aggressive osseous lesions.Orbits: The globes are normal in size, contour, and position. The course and caliber of the optic nerve sheath complex is within normal limits. The extraocular muscles, intraconal fat, and extraconal fat arewithin normal limits. The lacrimal glands appear normal. The orbital pitts and optic canals are normal.Sinuses: The paranasal sinuses and tympanomastoid cavities are unopacified.Brain: The visualized intracranial structures appear normal. No lesion of the visualized skull base or calvarium is present.IMPRESSION: Left periorbital hematoma and soft tissue swelling with no underlying fracture.Electronically signed by: New Joy MD 01/27/2022 8:53 AM CDT [id number] METABOLIC PANEL 2022-01-22 18:04:00 Test Item Value Reference Range Interpretation Comments SODIUM (test code = 140 mmol/L 135-145 N NA) POTASSIUM (test code 5.2 mmol/L 3.6-5.0 H = K) CHLORIDE (test code = 106 mmol/L 101-111 N CL) CARBON DIOXIDE (test 28 mmol/L 21-31 N code = CO2) GLUCOSE (test code = 94 mg/dl 70-100 N GLU) BLOOD UREA NITROGEN 21 mg/dl 6-20 H (test code = BUN) GLOMERULAR FILTRATION 31 >60 L The es timated RATE (test code = glomerular filtration GFR) rate is compute d usingpatient ra ce, age (>18), sex, and serum creatinine. If anyof the needed data elements are mi ssing the Laboratory cannot compute an zhang mation of the glomerul ar filtration rate . CREATININE (test code 2.27 mg/dL 0.64-1.27 H = CREAT) CALCIUM (test code = 8.9 mg/dL 8.5-10.5 N CA) CBC W/AUTO [id number] 17:54:00 Test Item Value Reference Range Interpretation Comments WHITE BLOOD CELL (test code = 10.0 x10 3/uL 3.2-11.5 N WBC) RED BLOOD CELL (test code = 2.96 x10(6)/m 4.20-5.70 L RBC) HEMOGLOBIN (test code = HGB) 9.3 g/dL 12.9-17.3 L HEMATOCRIT (test code = HCT) 32.0 % 38.7-51.0 L MEAN CELL VOLUME (test code = 108 fL 80-100 H MCV) MEAN CELL HGB (test code = MCH) 31.4 pg 26.7-33.3 N MEAN CELL HGB CONCENTRATION 29.1 g/dL 30.0-34.0 L (test code = MCHC) RED CELL DISTRIBUTION WIDTH 18.1 % 11.3-14.5 H (test code = RDW) PLATELET COUNT (test code = 334 x10 3/uL 130-408 N PLT) MEAN PLATELET VOLUME (test code 10.2 fL 8.6-12.6 N = MPV) NEUTROPHIL % (test code = NT%) 53.1 % 40.0-70.0 N LYMPHOCYTE % (test code = LY%) 34.8 % 20-40 N MONOCYTE % (test code = MO%) 6.3 % 1-10 N EOSINOPHIL % (test code = EO%) 3.8 % 0.0-5.0 N BASOPHIL % (test code = BA%) 1.2 % 0.0-1.0 H NUCLEATED RBC % (test code = 0.0 % 0.0-0.9 N NRBC%) NEUTROPHIL # (test code = NT#) 5.3 x10 3/uL 1.6-7.2 N LYMPHOCYTE # (test code = LY#) 3.48 x10 3/uL 1.1-2.7 H MONOCYTE # (test code = MO#) 0.6 x10 3/uL 0.3-0.8 N EOSINOPHIL # (test code = EO#) 0.4 x10 3/uL 0.0-0.5 N IMMATURE GRANULOCYTE % (test 0.8 % 0.0-2.0 N code = IG%) BASOPHIL # (test code = BA#) 0.1 x10 3/uL 0.0-0.1 N TISSUE [id number] 15:49:31Surgical Pathology Report Case: [id number] Authorizing Provider: Lashawn Watts Collected: 01/04/2022 01:10 PM MD Adam Ordering Location: [address] Med/Surg Received: 01/07/2022 09:52 AM Pathol ogist: Virgil Gaspar MD Specimen: Leg, Left, left aka LEG, LEFT, ABOVE KNEE AMPUTATION: - SEVERE CALCIFIC ATHEROSCLEROSIS - BONE MARGIN, NEGATIVE FOR ACUTE OSTEOMYELITIS - SKIN AND SOFT TISSUE MARGIN HISTOLOGICALLY VIABLE- SKIN AND SOFT TISSUE WITH MARKED ACUTE INFLAMMATION AND NECROSIS Signing Pathologist Direct Phone Line: [phone] signed by Virgil Gaspar MD on 01/16/2022 at 3:49 [id number], [id number] of left leg A. Leg, Left.Received fresh in a container labeled with at least two patient identifiers and "leg, left" is an above-knee amputation specimen: proximal portion to knee - 14 cm in length x 10 cm in diameter, knee to heel - 55 x 10 to 6 cm in diameter, and foot 22 cm in length x 8 x 8 cm. The lower leg ankle and foot are wrapped in elastic bandage. The proximal portion contains 4.5 cm of exposed bone. The distal/lateral portion of the leg is status post debridement, with an surgical site (31 cm in length x 6.5 cm) exposing underlying bone and soft tissue. The prior surgical site is 23 cm from the proximal margin and extends toinvolve the lateral foot. 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 The skin surrounding the prior debridement site and the foot is purple-brown and mottled. The vessels at the margin are calcified, and the lumen is 90% patent. The posterior tibial artery calcified and 70% patent. The distal posterior tibial artery is calcified and 80% occluded. Underlying the surgical site is an area of hematoma. The surrounding soft tissue is yeung-green.Section code:A1, bone marrow A2-A3, bone at margin, after decalcificationA4, proximal vessel at margin A5, skin and soft tissue surrounding area of debridementA6, area of hemorrhage underlying debridement A7, posterior tibial vessel A8, posterior tibial vessel, distalA9, skin and soft tissue at margin, operations representative ND/ew Sections show marked calcific atherosclerosis. The skin and soft tissue surrounding the area of prior debridement show acute inflammation and necrosis. There is trilineage hematopoesis in the bone marrow. The skin and soft tissue at the margin show no significant changes. The bone at the margin shows no acute osteomyelitis.(MANUAL DIFFERENTIAL)2022-01-10 12:04:21 Test Item Value Reference Range Interpretation Comments NEUTROPHILS - REL (DIFF) (BEAKER) 78 % (test code = 1359) LYMPHOCYTES - REL (DIFF) (BEAKER) 10 % (test code = 1360) MONOCYTES - REL (DIFF) (BEAKER) 7 % (test code = 1361) EOSINOPHILS - REL (DIFF) (BEAKER) 4 % (test code = 1362) METAMYELOCYTES-REL (DIFF) (BEAKER) 1 % 0-0 H (test code = 258) NEUTROPHILS - ABS (DIFF) (BEAKER) 10.30 K/ L 1.80-8.00 H (test code = 1365) LYMPHOCYTES - ABS (DIFF) (BEAKER) 1.32 K/ L 1.48-4.50 L (test code = 1366) MONOCYTES - ABS (DIFF) (BEAKER) 0.92 K/ L 0.00-1.30 (test code = 1367) EOSINOPHILS - ABS (DIFF) (BEAKER) 0.53 K/ L 0.00-0.50 H (test code = 1368) METAMYELOCTYES - ABS (DIFF) 0.13 K/ L 0.00-0.00 H (BEAKER) (test code = 261) TOTAL COUNTED (BEAKER) (test code 100 = 1351) WBC MORPHOLOGY (BEAKER) (test code Normal = 487) PLT MORPHOLOGY (BEAKER) (test code Normal = 486) MICROCYTES (BEAKER) (test code = 1+ few 965) CBC W/PLT COUNT & AUTO [id number] 12:04:20 Test Item Value Reference Range Interpretation Comments WHITE BLOOD CELL COUNT (BEAKER) 13.2 K/ L 4.0-10.0 H (test code = 775) RED BLOOD CELL COUNT (BEAKER) 2.75 M/ L 4.20-5.80 L (test code = 761) HEMOGLOBIN (BEAKER) (test code = 8.9 GM/DL 13.0-16.8 L 410) HEMATOCRIT (BEAKER) (test code = 27.8 % 36.0-50.0 L 411) MEAN CORPUSCULAR VOLUME (BEAKER) 101.1 fL 82.0-99.0 H (test code = 753) MEAN CORPUSCULAR HEMOGLOBIN 32.4 pg 27.0-33.0 (BEAKER) (test code = 751) MEAN CORPUSCULAR HEMOGLOBIN CONC 32.0 GM/DL 32.0-36.0 (BEAKER) (test code = 752) RED CELL DISTRIBUTION WIDTH 18.0 % 12.0-15.0 H (BEAKER) (test code = 412) PLATELET COUNT (BEAKER) (test 441 K/CU MM 150-430 H code = 756) MEAN PLATELET VOLUME (BEAKER) 9.5 fL 6.0-11.5 (test code = 754) NUCLEATED RED BLOOD CELLS 0 /100 WBC 0-0 (BEAKER) (test code = 413) COMPREHENSIVE METABOLIC [id number] 12:03:23 Test Item Value Reference Range Interpretation Comments TOTAL PROTEIN 5.3 gm/dL 6.0-8.5 L (BEAKER) (test code = 770) ALBUMIN (BEAKER) 2.0 g/dL 3.5-5.0 L (test code = 1145) ALKALINE PHOSPHATASE 222 U/L 30-115 H (BEAKER) (test code = 346) BILIRUBIN TOTAL 0.4 mg/dL 0.1-1.2 (BEAKER) (test code = 377) SODIUM (BEAKER) (test 141 meq/L 135-148 code = 381) POTASSIUM (BEAKER) 3.5 meq/L 3.6-5.5 L (test code = 379) CHLORIDE (BEAKER) 112 meq/L 98-106 H (test code = 382) CO2 (BEAKER) (test 22 meq/L 20-29 code = 355) BLOOD UREA NITROGEN 46 mg/dL 10-26 H (BEAKER) (test code = 354) CREATININE (BEAKER) 2.36 mg/dL 0.50-1.20 H (test code = 358) GLUCOSE RANDOM 111 mg/dL 70-110 H (BEAKER) (test code = 652) CALCIUM (BEAKER) 8.2 mg/dL 8.5-10.5 L (test code = 697) AST (SGOT) (BEAKER) 23 U/L 5-40 (test code = 353) ALT (SGPT) (BEAKER) 19 U/L 5-50 (test code = 347) EGFR (BEAKER) (test 28 mL/min/1.73 ESTIMA NATE GFR IS code = 1092) sq m NOT ACCURATE CREATININE CLEARANCE IN PREDICTING GLOMERULAR FILTRATION RATE . ESTIMATED GFR I S NOT APPLICABLE FOR DIALYSIS PATIEN TS. Assistant Hvac Mechanic ID - DSENSONOperator ID - DSENSONOperator ID - DSENSONOperator ID - DSENSONOperator ID - DSENSONOperator ID - DSENSONOperator ID - DSENSONOperator ID - DSENSONOperator ID - DSENSONOperator ID - DSENSONOperator ID - DSENSONOperator ID - DSENSONOperator ID - DSENSONOperator ID - DSENSONOperatorID - DSENSONOperator ID - DSENSONOperator ID - DSENSONOperator ID - DSENSONOperator ID - DSENSONANTI-NUCLEAR ANTIBODY (TOMMY)2022-01-10 11:12:19 Test Item Value Reference Range Interpretation Comments ANTI-NUCLEAR ANTIBODY (TOMMY) [facility] Negative Negative (test code = 418) Test performed by IFA method.Test performed by IFA method.POC-Glucose meter 2022-01-09 21:40:27 Test Item Value Reference Range Interpretation Comments POC-Glucose Meter (test 98 mg/dL 70-110 : TE STED AT [facility] code = 1538) [address] [facility], [facility] [address]: Assistant Hvac Mechanic/Techni yadi ID = [id number] for Nadya Pereira Lab Interpretation (test Normal code = 82659-2) [facility] [id number] 21:40:27 Test Item Value Reference Range Interpretation Comments POC-GLUCOSE METER 98 mg/dL 70-110 : TESTED A T [facility] [address] (BEAKER) (test code = [address]) [facility] [address]: Assistant Hvac Mechanic/Techni yadi ID = [id number] for uJan Ayers Chloride, random [id number] 17:57:40 Test Item Value Reference Range Interpretation Comments ChlorideUr (test 46 meq/L code = 00285-2) RAMON (test code = Reference Range: No RAMON) NormalsOperator ID - [id number] [facility], random [id number] 17:57:40 Test Item Value Reference Range Interpretation Comments ChlorideUr (test 46 meq/L code = 56519-7) RAMON (test code = Reference Range: No RAMON) NormalsOperator ID - [id number] [facility]CHLOR[facility], RANDOM [id number] 17:57:40 Test Item Value Reference Range Interpretation Comments CHLORIDE URINE (BEAKER) (test code = 46 meq/L 682) Reference Range: No NormalsOperator ID - [id number], random [id number] 17:51:25 Test Item Value Reference Range Interpretation Comments Sodium Urine (test 54 meq/L code = 2955-3) RAMON (test code = Reference Range: No RAMON) NormalsOperator ID - [id number] [facility] [id number] 17:51:25 Test Item Value Reference Range Interpretation Comments Sodium Urine (test 54 meq/L code = 2955-3) RAMON (test code = Reference Range: No RAMON) NormalsOperator ID - [id number] [facility] Center[facility], RANDOM [id number] 17:51:25 Test Item Value Reference Range Interpretation Comments SODIUM URINE (BEAKER) (test code = 54 meq/L 243) Reference Range: No NormalsOperator ID - [id number], random urine 2022-01-09 17:51:24 Test Item Value Reference Range Interpretation Comments Potassium Urine 4.8 meq/L (test code = 2828-2) RAMON (test code = Reference Range: No RAMON) NormalsOperator ID - [id number] [facility] Hospital[facility]assium, random [id number] 17:51:24 Test Item Value Reference Range Interpretation Comments Potassium Urine 4.8 meq/L (test code = 2828-2) RAMON (test code = Reference Range: No RAMON) NormalsOperator ID - [id number] [facility] HospitalPOTASSIUM, RANDOM [id number] 17:51:24 Test Item Value Reference Range Interpretation Comments POTASSIUM URINE (BEAKER) (test code 4.8 meq/L = 195) Reference Range: No NormalsOperator ID - [id number] METABOLIC PANEL 2022-01-09 05:48:19 Test Item Value Reference Range Interpretation Comments TOTAL PROTEIN 5.4 gm/dL 6.0-8.5 L (BEAKER) (test code = 770) ALBUMIN (BEAKER) 2.0 g/dL 3.5-5.0 L (test code = 1145) ALKALINE PHOSPHATASE 255 U/L 30-115 H (BEAKER) (test code = 346) BILIRUBIN TOTAL 0.5 mg/dL 0.1-1.2 (BEAKER) (test code = 377) SODIUM (BEAKER) (test 148 meq/L 135-148 code = 381) POTASSIUM (BEAKER) 3.7 meq/L 3.6-5.5 (test code = 379) CHLORIDE (BEAKER) 119 meq/L 98-106 H (test code = 382) CO2 (BEAKER) (test 20 meq/L 20-29 code = 355) BLOOD UREA NITROGEN 56 mg/dL 10-26 H (BEAKER) (test code = 354) CREATININE (BEAKER) 2.71 mg/dL 0.50-1.20 H (test code = 358) GLUCOSE RANDOM 76 mg/dL 70-110 (BEAKER) (test code = 652) CALCIUM (BEAKER) 8.3 mg/dL 8.5-10.5 L (test code = 697) AST (SGOT) (BEAKER) 27 U/L 5-40 (test code = 353) ALT (SGPT) (BEAKER) 22 U/L 5-50 (test code = 347) EGFR (BEAKER) (test 24 mL/min/1.73 ESTIMA NATE GFR IS code = 1092) sq m NOT ACCURATE CREATININE CLEARANCE IN PREDICTING GLOMERULAR FILTRATION RATE . ESTIMATED GFR I S NOT APPLICABLE FOR DIALYSIS PATIEN TS. Assistant Hvac Mechanic ID - NSUVAGIYAOperator ID - NSUVAGIYAOperator ID - NSUVAGIYAOperator ID - NSUVAGIYAOperatorID - NSUVAGIYAOperator ID - NSUVAGIYAOperator ID - NSUVAGIYAOperator ID - NSUVAGIYAOperator ID - NSUVAGIYAOperator ID - NSUVAGIYAOperator ID - NSUVAGIYAOperator ID - NSUVAGIYAOperator ID - NSUVAGIYAOperator ID - NSUVAGIYAOperator ID - NSUVAGIYAOperator ID - NSUVAGIYA [id number] 05:37:47 Test Item Value Reference Range Interpretation Comments MAGNESIUM (BEAKER) (test code = 2.0 mg/dL 1.5-3.0 627) Assistant Hvac Mechanic ID - NSUVAGIYAOperator ID - NSUVAGIYAOperator ID - NSUVAGIYAOperator ID - [id number] W/PLT COUNT & AUTO [id number] 05:08:40 Test Item Value Reference Range Interpretation Comments WHITE BLOOD CELL COUNT (BEAKER) 14.6 K/ L 4.0-10.0 H (test code = 775) RED BLOOD CELL COUNT (BEAKER) 2.77 M/ L 4.20-5.80 L (test code = 761) HEMOGLOBIN (BEAKER) (test code = 8.9 GM/DL 13.0-16.8 L 410) HEMATOCRIT (BEAKER) (test code = 28.0 % 36.0-50.0 L 411) MEAN CORPUSCULAR VOLUME (BEAKER) 101.1 fL 82.0-99.0 H (test code = 753) MEAN CORPUSCULAR HEMOGLOBIN 32.1 pg 27.0-33.0 (BEAKER) (test code = 751) MEAN CORPUSCULAR HEMOGLOBIN CONC 31.8 GM/DL 32.0-36.0 L (BEAKER) (test code = 752) RED CELL DISTRIBUTION WIDTH 18.6 % 12.0-15.0 H (BEAKER) (test code = 412) PLATELET COUNT (BEAKER) (test 496 K/CU MM 150-430 H code = 756) MEAN PLATELET VOLUME (BEAKER) 9.9 fL 6.0-11.5 (test code = 754) NUCLEATED RED BLOOD CELLS 0 /100 WBC 0-0 (BEAKER) (test code = 413) NEUTROPHILS RELATIVE PERCENT 77 % (BEAKER) (test code = 429) LYMPHOCYTES RELATIVE PERCENT 13 % (BEAKER) (test code = 430) MONOCYTES RELATIVE PERCENT 5 % (BEAKER) (test code = 431) EOSINOPHILS RELATIVE PERCENT 2 % (BEAKER) (test code = 432) BASOPHILS RELATIVE PERCENT 1 % (BEAKER) (test code = 437) NEUTROPHILS ABSOLUTE COUNT 11.25 K/ L 1.80-8.00 H (BEAKER) (test code = 670) LYMPHOCYTES ABSOLUTE COUNT 1.84 K/ L 1.48-4.50 (BEAKER) (test code = 414) MONOCYTES ABSOLUTE COUNT (BEAKER) 0.67 K/ L 0.00-1.30 (test code = 415) EOSINOPHILS ABSOLUTE COUNT 0.24 K/ L 0.00-0.50 (BEAKER) (test code = 416) BASOPHILS ABSOLUTE COUNT (BEAKER) 0.09 K/ L 0.00-0.20 (test code = 417) IMMATURE GRANULOCYTES-RELATIVE 4 % 0-0 H PERCENT (BEAKER) (test code = 2801) POC-Glucose [id number] 22:03:29 Test Item Value Reference Range Interpretation Comments POC-Glucose Meter (test 91 mg/dL 70-110 : TE STED AT [facility] code = 1538) [address] [facility], [facility] [address]: Assistant Hvac Mechanic/Techni yadi ID = [id number] for Era Rebecca Lab Interpretation (test Normal code = 65554-3) [facility] [id number] 22:03:29 Test Item Value Reference Range Interpretation Comments POC-GLUCOSE METER 91 mg/dL 70-110 : TESTED A T [facility] [address] (BEAKER) (test code = [address]) [facility] [address]: Assistant Hvac Mechanic/Techni yadi ID = [id number] for Oyeb jaciel, Rebecca Tissue [id number] 08:44:54 Test Item Value Reference Range Interpretation Comments Case Report (test code Surgical Pathology = 104) Report Case: [id number] Authorizing Provider: Lashawn Watts Collected: 01/02/2022 08:03 PM MD Adam Ordering Location: [address] Med/Surg Received: 01/06/2022 07:55 AM Pathologist: Virgil Gaspar MD Specimens: A) - Soft Tissue, Debridement, LEFT LEG LATERAL COMPARTMENT B) - Toe, Left, SECOND TOE LEFT FOOT DIAGNOSIS (test code = [id number] 3220) FuZzEwMzNcZnRuYmpcdWMx IHtccnRmMVxlcGljOTYwMl schvJxGTBgqWTrJ4Pmksug MPloSE9qHV7gaFzpkOZliC WjMQOnDrSwj5zom404oXEm k3enFMAQylvivAz3xZfaU9 9lt0P7ItxjO87hmZVuBDP1 EDUsWOVaiREmRBJpVPF6PH QowSDvK5sxYWFtJU9vtedc EOsyZNfzBKJtrBL5IBEinB FjT1HhDNDdALswRLXbvev4 MqEkZr5zrCZrxKwfWFiiDG YaWVNqVXlcDCZyZpYxNE0j Q23LUSXLPGRSLAMsTZzZWs RhVGREPUoJPHGHWCajB51M HUTUJO1SOnPqTXASUvBBEZ LDUC8FVihaKNGyiJWiXU2m T32XQEJWQJKMAHIpF0pGNF QXGCZST2OCJlEHAuZnVQJV M7IZQBePFhsORC3HUFeEEq duJ1DDXE1DA5NJE7LRIKfP KZZovtovZCOuIt9vE7QGW6 0JSGCJCXxkMZFWXEbfBZ4M VVRBVElPTjpccGFyXHRhYi PvKQUUJ0rUCXDGEL6QKrtR HuidAgKDSFMLRxFtHv2WMA XIAVKGFM8LHJSSGTfPSInW SVNccGFyXHRhYiAtIFNLSU 7uHH4FDRDWFdMoFDkIJ7IV HE4TVksEIjZQLRUYT7yLF2 lDQUxMWSBWSUFCTEVccGFy FAZcWgIpADPQDMFNFQ3LVP VPTVlFTElUSVNccGFyXHRh HuIePWGOMI4xPX3AFRXFGs QtQGdMK3OKHBdALBkgO8ND B0VLHo8MWtJLQJTHU2ENO7 hpMAR9w3btgGXzTGFubGTq ODAwMFxhbnNpXGRlZmxhbm fiLMVpGJB6ypKqHJCfQZbf VWPfHQcuIt0kdMBklUppYq JdMUBiq1dgqoDOmgcmjFi9 o9vdRTKcCnX9aWJxMMclG8 cpqxPpeELfQTKcUOc9oS75 TQBtuP8oqWOzLCxmhvEdLa N6UUtqWDVyDtD7WTZtyARl RUYcB5deOCYdZHzwQJUrXF yyvPDcTET2gInbp5E7mWCl aGVldHtcZjBcZnMyMiBOb3 KjINt4vWgqW7CjJWAlLjF4 bHQgUGFyYWdyYXBoIEZvbn K3zI74ZHafxzR2rSWac5Pb v63mr250rS8qnWFwWZR5JC WzPLOqtDMeTRUeQZX6NATs jZNoV2hxSYSyST0yrevbEB ljBQrmCOAovXU6ZJLmhNEg K3GyXGYeHCbuWKSpisy2Wl LhGb6omYOttVsoTOuuh1ai a9utuSEeBav5KZOgZnNfTp kuLUdwc0Owu1icMWCuqs2s RQF0dOEwpYsrj3R8uDEwOR ZxyXBeLFYyVM6ohTJjZWQq yE4tzggbCMMbFnPgbrwgFF AhnNqaicPlBg0wrMqjOLD9 XZwwR2pmfB2pMfH5ENpgL0 qtqK0aZTf3ZTrzJLLctTS0 xfT5PPVjrJIyM7OorN6yAA HwNI3idys9x0qxOUR4QZse IZMoDdL0ozQ4KJSsiSZsSQ PnzSfaNCzfp979REZ5ElSs MGEqw8OdV8CebPnyS68rsI zoO33bOFAujKkekI8dwYrh cS7hIyPvUfUyTJuuuUluSJ 2vZTAgQ7wfyVGlXHBmFUQk A0xkRfMjyP6lnTbhDRzyld UdGYRvPfe1RIHrzQVfPRXw Zgj3DPRcCDSnC80mwaixIO D3qZ2pj0uac2InDXcbZDG5 TRUfk33zFMkahbE8AAysZd 96ApCsKrF1REemFXJ7cS== CPT Code(s) (test code s5triXNzDEPboMF2RoIdLX = 3357) Cgs6wyd4KjqUTtvZAoXMgx hBGsbdZmmg87nQJ6dU62ZT 2hAHCtCfG4UADugvC0Yzj9 MYYiBCHgwKGvD278f3vrv6 otncXbmMC8nQpfBIOtqdvi GaT1DAsqSEJoermnLMu7XO ihMMCzxVA6IGCurLTzB8Bh SASaRO0czpw4HGA3EPkxTP KtDoR4SMJpzCHuFONujJzg DNfau702VRE8KeKjZWUdwo LbeVoblS5iSyQeICS9OQDu CNhfRRvrLMRaEWv6YgWbQZ Bhcn0= CLINICAL HISTORY (test n3yhmARwZBEahYJ6UmZnJH code = 3356) Xfq0phe7OkeALrdZJaKQcw oOVqdvPtpa56xDL7uQ28ED 6aHVCeOtH9DAVenmS1Jxk1 HBKaMDEqeVFvQ573z1spz5 xabcGxpNN2iDrgXKIvoozk ApN6GUueARBplibzLKz5NH olEVZueSA3EXJekZKrN2Gc ZRBxRM8rvxj8HRC5EAwmQS DfMvS2KQIzxCDqJWTosPnf XOciu511EBN6VlFvHYKfhu OsvGovcQ4wQqMjJCTBHH5o cmVuZSBccGFyfQ== GROSS DESCRIPTION (test m5rdsKRpSYUeeEW2LgFcYO code = [id number]) Vld8jms8WogGIboVNeYRkh xQZiepMnxa57wTF7gD98JR 9oJVCxSpF4ZHVhzmR8Asb6 NGLoCIMegFSxS635z6tiy7 hheyNjtTL1KVYxFVJuX4Dn WP3zSSArqUCzP49rjFKqCU U7UZCcQSDajZKoDZGdZJG3 RHGzfPHkS9zhEMYeRT2luf wfWEhuVAtiRFOihEJ7DHYq xRAfV8DeXLSiXBbxWHWkjm c8HzZnMa2bmKQvkQlvXCju FZRee8mjPOXfgLGpEYT4IQ rzmJYvEFNjUFVfRTt2DXTe ZZowtRReHT0zyVheGxtsfR sna6HwmSRaOJbqOYOgWXUz XYetVVUiG8CQLTHxAWP0Ba P2HDMyGLc1SPrlE8CALUOi OJJ2IpQvOPB8WmH0BWo9ZI UCWe6sUVQzKWU7ZsM1NMQ9 CtA8IMteyTXvEMrxRktaWQ enQGGggZYcYObuqhE0QCLg NYuiZURbYdGkOF2cT49owU BUaXNzdWUsIERlYnJpZGVt FG65BdssBFOaMoCvOHdoQm IzQpSsXBm7JVDclC3fLr5k xHLwlG2mjACiSGjtZDEvi0 8dpXA4lFAonRRgGVQsRkIe YQPkMV74LmMilsNcgzAwtw CnZ9NrFGLboK3nuXmhmtZj HrUpl1V4DMZmc2B1QYSmOX hfH87mrGU7VFFgRKseUN26 YJNuVD0lQVqpFAXqs1N1AZ RbyjLxl11cfjcgHYZkm0Zo fFuwM4ouvVQrWkHalb83qq J2iBBagRMiNS8yADUjqPKw VQArOHfzAOXgo9rsKHstUJ aoRC3yWPRlm797iQ8hTHvd VU2sqK7ljFWqACM7ydFpY8 WwpMMaP4OnwATvsiLoHwTi t41ek4d5cQVfSEsdabTebP Fsvb89sjKmi8K0MLHvi0G9 DL2rCCM1HWElHKCuuR7gcV dmKSHfeAJlUY8bVVPsXE6l jdXcy8XfVBKfw5E7PYDkfi OhVZVvyyVxh89mx3CxwwQu RPGpt6ziZUWkd1P5EKE9jL XeBVPlyZ15jZodJYBvvCQc YXJhbmNlLiBSZXByZXNlbn JgyKy8QNJgGKO8oJ5hhsHm jgMwc6GbhFq9tGRfXJosHH CwCRQ1BumkVTA3JJZquJIx BUH7MK0iZSZznujsROLlYS RfKFS9LMhpxH67tENqQBGg MTZccGFyfXtcKlxlcGljc2 VjdCBcXGlkIDUxMDAyIFxc DJXdW5LDNSEbMRK6GbG2GA VdHLf0DFicM2LFJWVxPKU8 JpPvBqSdKaV9FMr7WKUYQy 1tNEPpEHI4DWU6IIA5FrV3 IFxcdCAyIFxcZmwgXFxmIE NtxPYuESbwtzE3XGNsIvNh D4GgJIScYAFiPIioQFIiaE 0fvNGwJNGxFqYlG9SpZBOw P3IjybTlWLrePURdgz6plO luIGxhYmVsZWQgInRvZSBs SBL6ZaZjgiEtTIVus3CuuN jeoRyqhQFyTQKfNVNuOF68 VLYkNPxzNAfeskl3lGY5LY VwIHRvIDEuNSBjbSBpbiBk aWFtZXRlcikuIFRoZSBzdX EljfqdoyCtqCMoYYMoTR0x IVZdKHA5x3DebYWvoaLwQW Kfv0brKTOyRJToo0O3tVBv LEK6fYDfPGVad8YkeDsoWh Tgw0exDwTTkKSjZSBipbYk jwXkmeFhL1OscJ0lwvNvpS UqxKO0aYPdFZqjrYXkELIb feJwr47dCMKyWJOsdIL6OH EuMSBjbSkuIFRoZSBkaXNj l1kfidU0lL5qIER5nJXsLC QztG9ldI4sXNFmPBV7fXM8 xHOfiU3qelCsbS4kMFrmGR RonJPikoRufyCoTtV2nELt v6nmdpLryoFqhxP8KPGkMX Tik7H7qHZwXjVPMQUzDLFk tiSafZc1PWAqTRP8lG7bqf AnhgYpr4XbhKs7uDYjNVXm aNShYIBeZ1QnD0zqpNCiwK cwhhwmTVRhAh5ymG71sdve QjEsIGFydGljdWxhciBzdX WpWFKjVzXNRgdfi0gaueZb hdEyx89vmCW4bDYsmGVcTM QjnFNxW7myZsBOGd3WHOhs H0Vpo5Nsq2GxsHpbvyFzEi ZxyuVhwwKpfR3zCWSzt75k MEyahZByDHLfQDDwa2dhfM FsLlxwYXJccGFyXHBhciBU cSynPGSen6Ged8BaJYPeM2 BadtDnEZmuPKK5hbPgVQE8 cywgZWFjaCBsYWJlbGVkIH zeeDvyRKZtkBQfa1JigEjr IHBhdGllbnQgaWRlbnRpZm zhjaUgEU5wIERnIXAgdONg bN4tliRhg6UtG0CgVH8PV5 O7s2fdkBxep2PwdFBhHW88 XONsiTHaIPV4UV8akXkhGD J9 MICROSCOPIC DESCRIPTION p8grnTEoVSRncAP4McQsKV (test code = 3371) Fvy4mof2DrwTZfxKArIAkd mTKkeqAsrq02zXT4bZ61BI 9fEAXhCfG6JKAjgwM6Lfl8 VVCeULMbvTJfQ637p4wgd7 zghoYxqPU4bBxpEUWqehsl HtJ2IJydBJKgsjczNZp6CV ztNKAcaVJ4ZZNsjFFmB5Sx CHLzAI8rpky7XGJ7VObvUX RjTbN4CJZxyKCdDAKbwDvi YJifk779UCW9HmMzECIdlo ZgrSdveQ1oBwJqJLWDLgIE aGUgbGVmdCBsYXRlcmFsIG HguURysjBqGR55VIWvJpYl XXEfVU96CEQug7jlWU1tP4 Cnh8adKGFkDSWugSBilsPr vnLssR1skCHyqUV7zG6bOF zmyr7xyyjjWbKjgIXzw5Yg PBZgp1K7YIxjSK2sQLI7zQ VuZGluZyBpbnRvIHNrZWxl hCWgKU34v0GvTVCjalCnMB VqjV6kPMW4lOHunGIjIEUp wdZrkAO0hZ8vGCtgpNsteQ oyqh8dkU1il6piQ5QhLSS8 dAWjWWGcePXqthYug58aAC 5zUVWuHVZpfamyLKXhEd9k U9NwnJjcfkKet9qykjBlBY Cev8HiAvFfu2kwGLSnMDFz m8U8LONxf0Y0NRT2yDNuJB SeNGBykWxsolaqXWD0nMLe v3U9LE4vdGUiwACprf1uwW FyfQ== [facility] [id number] 08:44:54 Test Item Value Reference Range Interpretation Comments Case Report (test code Surgical Pathology = 104) Report Case: [id number] Authorizing Provider: Lashawn Watts Collected: 01/02/2022 08:03 PM MD Adam Ordering Location: [address] Med/Surg Received: 01/06/2022 07:55 AM Pathologist: Virgil Gaspar MD Specimens: A) - Soft Tissue, Debridement, LEFT LEG LATERAL COMPARTMENT B) - Toe, Left, SECOND TOE LEFT FOOT DIAGNOSIS (test code = n0gdgEYmCGNeu8xlDFIbhN 3220) FuZzEwMzNcZnRuYmpcdWMx IHtccnRmMVxlcGljOTYwMl ogcwQdIDVjbGKsS2Rplzpj OGquAL7nPE1kcXfsjMNmtY YfWBQfYzLsy0ijq977xXJk w7odSQVWbgdwpDg2hSccA6 8ac3I1NmrbG42yuVLgIYI6 BXYsADGdhXMlVYPtVNY4NH CsaUFjN8beWKVaXR2oevyd JWblTQcgENAlaJV9HKDtjS NjG2NwUPBjRKaxPZVnqno6 QsDjVy8wdBSqgNvyLRofWC DvGYTmBAkqFNXsSfVjWH5o I98YHYTRVVSREVKlVUmOGt WxNKQJGCcDOCXUCPykR00I DAYAOI1JFyRfEAGHUqNJLT PMPP4GDxxgKNIvdVDuVE0t U86ANRRUJQTMVAMiP1rIVT ZLUCIRD2VGPuEBRpLgIZBZ P8RQKArVQkoLNW5YTFqSGe tiS9QGSG1MX6UEE6BVFNhB UWYryxxrZSZvPl4lN4DBS0 3CZILPBUtfEIGLQPgnXC4E VVRBVElPTjpccGFyXHRhYi PzCJYBV7aHFBCNKU5SJpvW SeckFmZUSEICOtXrXg6DTE HQOHEQNT2ZUTSGCEcGHHdV SVNccGFyXHRhYiAtIFNLSU 6sVU9KRHLAVnMgAFtQR2WK SS2RGzuTAiQUCMTOC3lUY4 lDQUxMWSBWSUFCTEVccGFy JSGhMsCbTCFZJEXHQQ4UQE VPTVlFTElUSVNccGFyXHRh LwBxHWGYAW3eZZ5JGFXEHf DbTQhTC3HYARdLZDroB7XH Q0JLHx4CGyAWYPCBR4OAT3 gvTIA9a9ohoBZlZFLwiCMm ODAwMFxhbnNpXGRlZmxhbm bbIMDrIFO9ctCrJQSxXLbg MWUuNVjnSd3mtHXeeOhaBq PhNBHfe6netfYRdwnljLv6 m9mwXFUhFzL4xMAbHFowT7 uwllTfmUReFVIrXKt6sI82 GIWspM0bvYGkTQetdoLeUy A1QLkxXEVmJgW9BWKufTDp UCJzN1xiXTMqAEsgVQLnWG veaYDrJNS9xZddx0K2oJGv aGVldHtcZjBcZnMyMiBOb3 HcQKh9jAbhM8OpOJSaFvP8 bHQgUGFyYWdyYXBoIEZvbn F5sW03UMlcjpZ7cLZzn4If s34ui029dG2oeMMaCJV1PZ DuIKTxfUQmEGUyDGH0OQJj zOUpP8khXOPwHU9txecrRX rkOYuvBZGhhFH2FBArnYAw G5CmSKBgUTkoGYPvrfw9Tq FrJt0bdVHrtPyeNKvdf2hb u1yibVTzYee5ZLGrQeLcOr atYFpcu0Qjh5cePZCpdq1h CDM0iLYwiRxfw3O4eRWqHQ BsiHQyRIZfXK9hlJGmBRKi aW5kekniKEJdAsMyahdhBI CtnVnhctJlEb9agOpoKZH4 QAwaJ2mriD5qLyT7EJmnG2 jxdK8nAZa9UJdsPMZbvYS1 ziB1PUVnlEZlJ3KjuF3jRV CrQT3iyyj8k7tgVXV7WHar VJKzGaF0opT4SDDnbQIlTH IpfUeiYJwsf781GQQ9ObBh CVSze7KsE9TxpEepA76pzZ vhO08rLBSmuAhfpW3cvEvi pG3mMuOmLxMhYWqxiByyLF 0sSHHeU4sxtTYaBBAsXTGw I7jxIrJceD3bgItmNShkaa JcZVKrOpu1PCNibZSeTOOp Vzp9RPAxKCWgN62biggpLU Z2lG5qu6okc9ZtNImcJZG3 LNCwj79bICodyzI4ZJqqAk 42VuWhJzC1FSjoSNR3xI== CPT Code(s) (test code w5zutXLrHDBoeWN6YcPlCG = 3357) Zma6hfm9KizIMfjAWtQFra mJIjrcYymx14fSF0iD78RG 0lLUGiNeO5HREugyY5Klt6 NNHtTKGznWHxJ915y3dzq7 quukUgtAK5zLtrUBAhdaxk UvN0BNzlODSzlnawFAp8MF inEHEyuVB8ZZQnrKKwA6Wt JCJxFB3htjv2VES6JCesYD ZfGmB2DXJlrGVmZHNfcYxs HKrrb320MQC3PsDiCIHmbw JmoYmoeR5dMlUcDYL8NJDl FTrzNTfiUNFnICg2VpZwOL Bhcn0= CLINICAL HISTORY (test v9lvyRQtIFZuvON3FyReHN code = 3356) Clu0oss8ErgIFidMExLVhn zXDvxlQaoc50pRG7aJ56DC 9cMJCrUsM9XJYowyX7Ius4 QEGpFWVddHOmT799m8mya3 ldflIttMB3hRabUZGuvned KqZ5UElpKZRpfysnFUb8PN ixYUMcjJX5NSZvyPUwO6Tf VIMtIQ1vvkj8MFQ2AFkrTB AyKsZ0DMCwwYUmKLLfbCha VAexg127JKD9BkQqPTZzzf RzkRiodE9rCkSkNZMGKE5m cmVuZSBccGFyfQ== GROSS DESCRIPTION (test e9vmdWLaRJTeaQT9JxAsYL code = [id number]) Pcf5qwb5OzfRKsoJIgGDlf nUJceuCgze57iRG8dV83ME 7wDTKuOnF7TUOhjxB4Yai5 LCIpUEZheEGuY092k3xts6 ycmsKhjYH4YWAcZGDeK3Ji GW5yIFTnqVNyU43kjQLlIE A2TSFaOQDfwEKyJUXlTGE5 CBAmwSZcN7jgGBDlLZ3gkt wvKBkxWVmzDPUikIG3CHHm pWPjQ6NiMZSiYGyiOZOodh t9MeGpXw7jrQQjfRktQTru RJNha6isUYCbfWAoCDV0AB pgzPMlGMCvTWWwSOn7XKOm MVfaxXQuMU4deAufNwfieF mgg0QltWHoCPvqRDMqLYFf WAqoVOIqJ1WIEQFvTZU9Mk T0KPBcVVj2MLrbS2RUHCTz GVT0OtPcPXS1JvU2YEz0ME XMVg9sGKIsOOZ1FtV3RPY9 DsK2GBjklIWkTUbeNmihPN mzGXAamIThXYtheyI5KQUk YIuzLHMgEwMhVV7tM55rbC BUaXNzdWUsIERlYnJpZGVt HC81RiwhHJKjBqReYPggEq IrPcYyNNj6FRBjhL4vOk4r tKDpyZ3jmMVdXGgoGKRts5 7ahSD7gMJdeKDgRLFoLsZd RLQhMF13BaWbbgAsqiHspo IeW0FfGWLciV6xmFwebdMe JoTog8O8VCTtj7L3DMOzYA xcI99bjJF3RJJyRFpdHS04 BDFmAX2hCXgaRBEir4V4ZM NjcbEuc71oedahJUUat1Mv hQbmK2yrdLNoAxZqzu89wa F5dHFbvTBdDX6dWKDppBZm KBDhOXbvYZBxt0otUEltZF mdKU4wNAFvw998rW0aOHoy RU4spD0xmJZgVTQ7uyKoX4 YafLXuR5LhhCQfawYpNhOe l13sy7e2xPSaCHectfXryJ Hroa98opXgr0X3WNVkp1X8 EA9tZID9RVGsWANqkA3xwG zyMHIpoGDeSY6rHWXtKR9g aqFnb1QxKICyd8M0KQWlav UoMWIvmjKvq60wf8UpodJs ZYPky3eaAYUcz2K2JIT8gN NbSGJvpP16oOkfQHEuwEFr YXJhbmNlLiBSZXByZXNlbn SgtSa0WJXqHON4bV0raoYm uiQha3YjqSj0wHBkTNrlTE QnBDT7GeyaNDS6WXAjqUWr MEC6HQ0nTBVwweosQKKqHN MmPOZ7YLvajR76qJBySISi MTZccGFyfXtcKlxlcGljc2 VjdCBcXGlkIDUxMDAyIFxc OWFvH3MPPYEfCUE9BnP5NR KbVBr0BAwgG2FZAGNtVXF5 VqEdMjWwXdX3ZEa6EGUXCx 1aDKSnRMF8MOF6WYD2TpA7 IFxcdCAyIFxcZmwgXFxmIE ZtjFTeLWeuszC4UFBtUeCn M1SgNBXkORDvSQhmFGQoeI 4lwOEmILJrWoPsG1ChGBHc H1GjfdZjSIinFRInvr2jbF luIGxhYmVsZWQgInRvZSBs HYK4NxDtmmPtEHRha8LytJ lbqXdafGUsIFEjBKSfMV66 IYTfZEsvFThswjw0eQM6AB VwIHRvIDEuNSBjbSBpbiBk aWFtZXRlcikuIFRoZSBzdX MxbviolrDpbSOpUKYhON1a GKGuWRS0r0BewAZzpqZaCP Bvw4ntABCbLBDtb2W6nIRh DFE8kKZtFRLco5KfiKduNf Thp9xxEpYGlLKfDNAqxbIv bkKnntOwR8TgtP1cjhVvhG LxeTA2xMKlEEhufLDjEDBs jfFlr66jHJVbKTWepTR1AM EuMSBjbSkuIFRoZSBkaXNj y1oxvsB5wV9cWOX1wBUtHQ GbhI0exN4vGBWnJHT2xAP8 fXMdpH5aepMzlA3fENqjAS EtxSJsukJhrbSeDcX7rUZx c1rphtYuacBdhnS7WFRaVJ Kfh6J5mPSyKsFOHYEaDMNu tmSxxNv3IKVcDJT7uL6jae PmimDag9NtnDg2eNTyONCt pSHgTMYfP2IzK3xneZLjpA frtlffQSRxEc4kaW59fwkt QjEsIGFydGljdWxhciBzdX LzHQIxTeXBPfayn4fuvvRi arRkx15kfUT2tSHufMMtAT EueJMoL4zlQkDOCn9XABox R7Irb1Ezv4JvnOvclsTpVl RhrxUefhEhwY6lEZMkz38i XXoguWSiXTVuTTUki5fwrB FsLlxwYXJccGFyXHBhciBU xQilAOAuh7Ysi2OuZYGdL3 WkluPmBJslAKD6jzToTVB8 cywgZWFjaCBsYWJlbGVkIH pdfGdzVSTzeMFsm0FadRqx IHBhdGllbnQgaWRlbnRpZm ocfoEjRG6hVNCjNIAfePIk lY6fxmGgp7IbN1VnCE7CA3 A6k2jsqJidd5CnaQIeDM08 OJJgdBXvTOY4LG8kkHhsVH J9 MICROSCOPIC DESCRIPTION x3kruXReENKhdVF7FzFoEO (test code = 3371) Kmi4zls1IccMVjiKKsNTdz yAVaelFumc00gVO9cQ99RA 0fBVEuBvZ9PPQmjvN7Fdp7 CDEaGJZybCTcC860v3mdg1 lpfrYmeJC0yHvtYNGtijhy CjX5XAeuCOVlsaxkVMo4MK apCEMsuHV8UCZtaVLcJ4Jm DZVyLN2tqbh4UGM4QLksXX PbVxZ1YFDqqRDrPLNkxTrm FKmlu855YXQ4KhCzCKOyea JxfPdqrM4jTnSeQVWQBjUD aGUgbGVmdCBsYXRlcmFsIG LkgIVxjgVtGV67AWJgHbXg SFGmXE29JMQyt8xoMQ1bW3 Pqj5hkQEPqJZAobYHquwHh ckIppO0fvDJwsFI5cO2mPY iyhh0rajbzWcHndCWhp1So ZUQdm0K0ATxpJD0kKKV2pR VuZGluZyBpbnRvIHNrZWxl wFFyOI33h6CsGFFahhZlUN BabP4xGNJ2iYTkgVZuGCEa gySfdEA8cB3bAMvayHmvqM tngf4jnU3wf2zlG7AeHHC8 lMAqIXAxtESiteSzu47vVJ 7yDWCoODSmiknsYAMvNb2f E1XorWjjrgXgj8ewmrJtPT Tvm9CpTvYii6eaMVYlSRQd r2N1MYDpx9N7PVD8jNAfNA TcSGMinGifvprxKUN7kXBh i2C0PA7jdEAdzDAdnb8rpE FyfQ== [id number] 08:44:54Surgical Pathology Report Case: [id number] Authorizing Provider: Lashawn Watts Collected: 01/02/2022 08:03 PM MD Adam Ordering Location: [address] Med/Surg Received: 01/06/2022 07:55 AM Pathologist: Virgil Gaspar MD Specimens: A) - Soft Tissue, Debridement, LEFT LEG LATERAL COMPARTMENT B) - Toe, Left, SECOND TOE LEFT FOOT A. SOFT TISSUE, LEFT LEG LATERAL COMPARTMENT, DEBRI FILEMON: - SOFT TISSUE WITH NECROSIS AND MARKED INFLAMMATION, SEE MICROSCOPICB. SECOND TOE, LEFT, AMPUTATION: - PROXIMAL MARGIN, NEGATIVE FOR ACUTE OSTEOMYELITIS - SKIN AND SOFT TISSUE MARGIN HISTOLOGICALLY VIABLE - ACUTE OSTEOMYELITIS - SKIN AND SOFT TISSUE WITH GANGRENOUS NECROSIS Signing PathologistDirect Phone Line: [phone] signed by Virgil Gaspar MD on 01/08/2022 at 8:44 [id number], [phone] A. Soft Tissue, Debridement.Received in formalin labeled "soft tissue, debridement" is an irregular portion of soft tissue (18 cm x 9 cm x 4.5 cm). The tissueis comprised of thick membranous tissue. One surface is brown-yeung and smooth. The opposite surface is yeung and brown with adherent brown soft tissue. Attached to the thickened membranous tissue is a portion of red-brown tissue with a mottled appearance. [facility] [employer] sections are submitted in A1-A5.B. Toe, Left.Received in formalin labeled "toe left" is a disarticulated toe (5.7 cm in length x up to 1.5 cm in diameter). The superior surface of the toe is red-brown and mottled, with sloughing skin.There is an intact toenail at the distal portion (0.8 cm x 1.1 cm). The discoloration extends to underneath the toenail. The remainder of the skin is yeung and mottled. [facility] [employer] sections are submitted after decalcification, as follows: B1, articular surface; B2, skin and soft tissue at margin; B3-B4, cross section of entire toe from distal to proximal.This case was received in two parts, each labeled with at least two patient identifiers and the specimen source. ND/Deysi. The left lateral compartm ent debridement shows necrosis and extensive inflammation involving fibrous tissue, and extending into skeletal muscle and adipose tissue. Correlation with microbiological studies is recommended.B. Sections show necrotic skin and soft tissue with underlying acute osteomyelitis.CBC W/PLT COUNT & AUTO [id number] 06:17:01 Test Item Value Reference Range Interpretation Comments WHITE BLOOD CELL COUNT (BEAKER) 17.9 K/ L 4.0-10.0 H (test code = 775) RED BLOOD CELL COUNT (BEAKER) 2.65 M/ L 4.20-5.80 L (test code = 761) HEMOGLOBIN (BEAKER) (test code = 8.4 GM/DL 13.0-16.8 L 410) HEMATOCRIT (BEAKER) (test code = 26.2 % 36.0-50.0 L 411) MEAN CORPUSCULAR VOLUME (BEAKER) 98.9 fL 82.0-99.0 (test code = 753) MEAN CORPUSCULAR HEMOGLOBIN 31.7 pg 27.0-33.0 (BEAKER) (test code = 751) MEAN CORPUSCULAR HEMOGLOBIN CONC 32.1 GM/DL 32.0-36.0 (BEAKER) (test code = 752) RED CELL DISTRIBUTION WIDTH 18.9 % 12.0-15.0 H (BEAKER) (test code = 412) PLATELET COUNT (BEAKER) (test 441 K/CU MM 150-430 H code = 756) MEAN PLATELET VOLUME (BEAKER) 10.1 fL 6.0-11.5 (test code = 754) NUCLEATED RED BLOOD CELLS 0 /100 WBC 0-0 (BEAKER) (test code = 413) NEUTROPHILS RELATIVE PERCENT 84 % (BEAKER) (test code = 429) LYMPHOCYTES RELATIVE PERCENT 8 % (BEAKER) (test code = 430) MONOCYTES RELATIVE PERCENT 4 % (BEAKER) (test code = 431) EOSINOPHILS RELATIVE PERCENT 1 % (BEAKER) (test code = 432) BASOPHILS RELATIVE PERCENT 0 % (BEAKER) (test code = 437) NEUTROPHILS ABSOLUTE COUNT 14.96 K/ L 1.80-8.00 H (BEAKER) (test code = 670) LYMPHOCYTES ABSOLUTE COUNT 1.51 K/ L 1.48-4.50 (BEAKER) (test code = 414) MONOCYTES ABSOLUTE COUNT (BEAKER) 0.74 K/ L 0.00-1.30 (test code = 415) EOSINOPHILS ABSOLUTE COUNT 0.21 K/ L 0.00-0.50 (BEAKER) (test code = 416) BASOPHILS ABSOLUTE COUNT (BEAKER) 0.05 K/ L 0.00-0.20 (test code = 417) IMMATURE GRANULOCYTES-RELATIVE 2 % 0-0 H PERCENT (BEAKER) (test code = 2801) (MANUAL DIFFERENTIAL)2022-01-08 06:17:01 Test Item Value Reference Range Interpretation Comments NEUTROPHILS - REL (DIFF) (BEAKER) 78 % (test code = 1359) LYMPHOCYTES - REL (DIFF) (BEAKER) 5 % (test code = 1360) MONOCYTES - REL (DIFF) (BEAKER) 3 % (test code = 1361) EOSINOPHILS - REL (DIFF) (BEAKER) 3 % (test code = 1362) BANDS - REL (DIFF) (BEAKER) (test 11 % 0-10 H code = 1348) NEUTROPHILS - ABS (DIFF) (BEAKER) 13.96 K/ L 1.80-8.00 H (test code = 1365) LYMPHOCYTES - ABS (DIFF) (BEAKER) 0.90 K/ L 1.48-4.50 L (test code = 1366) MONOCYTES - ABS (DIFF) (BEAKER) 0.54 K/ L 0.00-1.30 (test code = 1367) EOSINOPHILS - ABS (DIFF) (BEAKER) 0.54 K/ L 0.00-0.50 H (test code = 1368) BANDS-ABS (DIFF) (BEAKER) (test 2.0 K/ L 0.0-0.8 H code = 1349) TOTAL COUNTED (BEAKER) (test code 100 = 1351) BANDS + SEGMENTED NEUTROPHILS 15.93 (BEAKER) (test code = 1352) WBC MORPHOLOGY (BEAKER) (test code Normal = 487) PLT MORPHOLOGY (BEAKER) (test code Normal = 486) ANISOCYTOSIS (BEAKER) (test code = 1+ few 961) MACROCYTES (BEAKER) (test code = 1+ few 964) COMPREHENSIVE METABOLIC [id number] 06:12:56 Test Item Value Reference Range Interpretation Comments TOTAL PROTEIN 5.2 gm/dL 6.0-8.5 L (BEAKER) (test code = 770) ALBUMIN (BEAKER) 1.9 g/dL 3.5-5.0 L (test code = 1145) ALKALINE PHOSPHATASE 283 U/L 30-115 H (BEAKER) (test code = 346) BILIRUBIN TOTAL 0.5 mg/dL 0.1-1.2 (BEAKER) (test code = 377) SODIUM (BEAKER) (test 145 meq/L 135-148 code = 381) POTASSIUM (BEAKER) 3.5 meq/L 3.6-5.5 L (test code = 379) CHLORIDE (BEAKER) 119 meq/L 98-106 H (test code = 382) CO2 (BEAKER) (test 16 meq/L 20-29 L code = 355) BLOOD UREA NITROGEN 58 mg/dL 10-26 H (BEAKER) (test code = 354) CREATININE (BEAKER) 2.71 mg/dL 0.50-1.20 H (test code = 358) GLUCOSE RANDOM 77 mg/dL 70-110 (BEAKER) (test code = 652) CALCIUM (BEAKER) 8.2 mg/dL 8.5-10.5 L (test code = 697) AST (SGOT) (BEAKER) 38 U/L 5-40 (test code = 353) ALT (SGPT) (BEAKER) 25 U/L 5-50 (test code = 347) EGFR (BEAKER) (test 24 mL/min/1.73 ESTIMA NATE GFR IS code = 1092) sq m NOT ACCURATE CREATININE CLEARANCE IN PREDICTING GLOMERULAR FILTRATION RATE . ESTIMATED GFR I S NOT APPLICABLE FOR DIALYSIS PATIEN TS. Assistant Hvac Mechanic ID - [id number] ID - [id number] ID - [id number] ID - [id number] ID - [id number] ID - [id number] ID - [id number] ID - [id number] ID - ibek33Cbvfoins ID - [id number] ID - [id number] ID - [id number] ID - [id number] ID - [id number] ID - [id number] ID - [id number] 06:01:02 Test Item Value Reference Range Interpretation Comments MAGNESIUM (PRIYA) (test code = 2.0 mg/dL 1.5-3.0 627) Assistant Hvac Mechanic ID - [id number] ID - [id number] ID - [id number] ID - [id number] POCT-GLUCOSE [id number] 21:40:38 Test Item Value Reference Range Interpretation Comments POC-GLUCOSE METER 97 mg/dL 70-110 : TESTED A [facility] [address] (PRIYA) (test code = [address]) [facility] 77 [id number]: Assistant Hvac Mechanic/Techni yadi ID = [id number] for Cabrera Tayla arroyo RAD, CHEST, 1 VIEW, NON [id number] 16:04:00Reason for exam:->abnormal breath soundsShould this be performed at the bedside?->Yes [facility] 1955 Sex: MFINAL REPORT History: Abnormal breath sounds. FINDINGS: Compared with December 28, 2021, lung volumes remain low with increased opacity in both lower lobes, right greater than left, likelyatelectasis though possibly pneumonia. Lungs are otherwise clear. No effusions or pneumothorax. The heart and mediastinum are stable. As before, the heart is upper limits normal size and there are multiple sternal wires indicating prior median sternotomy. Bones are unremarkable. IMPRESSION: 1. Stable chest. Signed: Aleksandar Christianson Verified Date/Time: 01/07/2022 16:04:01 Reading Location: [facility] Reading Room Blood gas, [id number] 15:01:26 Test Item Value Reference Range Interpretation Comments pH, Arterial (test code 7.34 7.35-7.45 L = 2744-1) pCO2, Arterial (test 28 See_Comment L [Autom ated code = 2019-04) message] The system which generated this result transmitted reference range : 35 - 45 mm Hg. The reference range was not used to interpret this result as normal/abnormal . pO2, Arterial (test 171 See_Comment H [Automa nate code = 2703-7) message] The system which generated this result transmitted reference range : 80 - 90 mm Hg. The reference range was not used to interpret this result as normal/abnormal . O2 Sat, Arterial (test 99.1 % 96.0-97.0 H code = 2708-6) HCO3, Arterial (test 15 mmol/L 21-29 L code = 1960-4) Base Excess, Arterial -9.5 mmol/L -2.0-3.0 L (test code = 1925-7) Patient Temperature 37.0 (test code = 8310-5) FIO2 (test code = 1819) 21 Lab Interpretation Abnormal (test code = 14017-2) [facility] [id number]:01:26 Test Item Value Reference Range Interpretation Comments pH, Arterial (test code 7.34 7.35-7.45 L = 2744-1) pCO2, Arterial (test 28 See_Comment L [Autom ated code = 2019-04) message] The system which generated this result transmitted reference range : 35 - 45 mm Hg. The reference range was not used to interpret this result as normal/abnormal . pO2, Arterial (test 171 See_Comment H [Automa nate code = 2703-7) message] The system which generated this result transmitted reference range : 80 - 90 mm Hg. The reference range was not used to interpret this result as normal/abnormal . O2 Sat, Arterial (test 99.1 % 96.0-97.0 H code = 2708-6) HCO3, Arterial (test 15 mmol/L 21-29 L code = 1960-4) Base Excess, Arterial -9.5 mmol/L -2.0-3.0 L (test code = 1925-7) Patient Temperature 37.0 (test code = 8310-5) FIO2 (test code = 1819) 21 Lab Interpretation Abnormal (test code = 80120-0) [facility] [id number] 15:01:26 Test Item Value Reference Range Interpretation Comments pH, Arterial (test code 7.34 7.35-7.45 L = 2744-1) pCO2, Arterial (test 28 See_Comment L [Autom ated code = 2019-) message] The system which generated this result transmitted reference range : 35 - 45 mm Hg. The reference range was not used to interpret this result as normal/abnormal . pO2, Arterial (test 171 See_Comment H [Automa nate code = 2703-7) message] The system which generated this result transmitted reference range : 80 - 90 mm Hg. The reference range was not used to interpret this result as normal/abnormal . O2 Sat, Arterial (test 99.1 % 96.0-97.0 H code = 2708-6) HCO3, Arterial (test 15 mmol/L 21-29 L code = 1960-4) Base Excess, Arterial -9.5 mmol/L -2.0-3.0 L (test code = 1925-7) Patient Temperature 37.0 (test code = 8310-5) FIO2 (test code = 1819) 21 Lab Interpretation Abnormal (test code = 44042-4) [facility], [id number] 15:01:26 Test Item Value Reference Range Interpretation Comments PH ARTERIAL (BEAKER) (test code = 7.34 7.35-7.45 L 383) PCO2 ARTERIAL (BEAKER) (test code 28 mm Hg 35-45 L = 384) PO2 ARTERIAL (BEAKER) (test code 171 mm Hg 80-90 H = 385) O2 SATURATION ARTERIAL (BEAKER) 99.1 % 96.0-97.0 H (test code = 386) HCO3 ARTERIAL (BEAKER) (test code 15 mmol/L 21-29 L = 388) BASE EXCESS ARTERIAL (BEAKER) -9.5 mmol/L -2.0-3.0 L (test code = 387) PATIENT TEMPERATURE (BEAKER) 37.0 (test code = 1818) FIO2 (BEAKER) (test code = 1819) 21.0 CBC W/PLT COUNT & AUTO [id number] 07:42:56 Test Item Value Reference Range Interpretation Comments WHITE BLOOD CELL COUNT (BEAKER) 28.3 K/ L 4.0-10.0 H (test code = 775) RED BLOOD CELL COUNT (BEAKER) 2.96 M/ L 4.20-5.80 L (test code = 761) HEMOGLOBIN (BEAKER) (test code = 9.5 GM/DL 13.0-16.8 L 410) HEMATOCRIT (BEAKER) (test code = 30.8 % 36.0-50.0 L 411) MEAN CORPUSCULAR VOLUME (BEAKER) 104.1 fL 82.0-99.0 H (test code = 753) MEAN CORPUSCULAR HEMOGLOBIN 32.1 pg 27.0-33.0 (BEAKER) (test code = 751) MEAN CORPUSCULAR HEMOGLOBIN CONC 30.8 GM/DL 32.0-36.0 L (BEAKER) (test code = 752) RED CELL DISTRIBUTION WIDTH 19.1 % 12.0-15.0 H (BEAKER) (test code = 412) PLATELET COUNT (BEAKER) (test 394 K/CU MM 150-430 code = 756) MEAN PLATELET VOLUME (BEAKER) 10.2 fL 6.0-11.5 (test code = 754) NUCLEATED RED BLOOD CELLS 0 /100 WBC 0-0 (BEAKER) (test code = 413) (MANUAL DIFFERENTIAL)2022-01-07 07:42:56 Test Item Value Reference Range Interpretation Comments NEUTROPHILS - REL (DIFF) (BEAKER) 78 % (test code = 1359) LYMPHOCYTES - REL (DIFF) (BEAKER) 5 % (test code = 1360) MONOCYTES - REL (DIFF) (BEAKER) 6 % (test code = 1361) EOSINOPHILS - REL (DIFF) (BEAKER) 1 % (test code = 1362) BANDS - REL (DIFF) (BEAKER) (test 10 % 0-10 code = 1348) NEUTROPHILS - ABS (DIFF) (BEAKER) 22.07 K/ L 1.80-8.00 H (test code = 1365) LYMPHOCYTES - ABS (DIFF) (BEAKER) 1.42 K/ L 1.48-4.50 L (test code = 1366) MONOCYTES - ABS (DIFF) (BEAKER) 1.70 K/ L 0.00-1.30 H (test code = 1367) EOSINOPHILS - ABS (DIFF) (BEAKER) 0.28 K/ L 0.00-0.50 (test code = 1368) BANDS-ABS (DIFF) (BEAKER) (test 2.8 K/ L 0.0-0.8 H code = 1349) TOTAL COUNTED (BEAKER) (test code 100 = 1351) BANDS + SEGMENTED NEUTROPHILS 24.90 (BEAKER) (test code = 1352) WBC MORPHOLOGY (BEAKER) (test code Normal = 487) PLT MORPHOLOGY (BEAKER) (test code Normal = 486) RBC MORPHOLOGY (BEAKER) (test code Normal = 762) COMPREHENSIVE METABOLIC [id number] 07:05:25 Test Item Value Reference Range Interpretation Comments TOTAL PROTEIN 5.8 gm/dL 6.0-8.5 L Specimen moder ately (BEAKER) (test code = hemoly zed 770) ALBUMIN (BEAKER) 2.0 g/dL 3.5-5.0 L Specimen mo derately (test code = 1145) hemolyzed ALKALINE PHOSPHATASE 278 U/L 30-115 H (BEAKER) (test code = 346) BILIRUBIN TOTAL 0.6 mg/dL 0.1-1.2 Specimen mod erately (BEAKER) (test code = hemoly zed 377) SODIUM (BEAKER) (test 143 meq/L 135-148 code = 381) POTASSIUM (BEAKER) 5.3 meq/L 3.6-5.5 Specimen moderately (test code = 379) hemolyzed CHLORIDE (BEAKER) 121 meq/L 98-106 H (test code = 382) CO2 (BEAKER) (test 12 meq/L 20-29 L code = 355) BLOOD UREA NITROGEN 55 mg/dL 10-26 H (BEAKER) (test code = 354) CREATININE (BEAKER) 2.80 mg/dL 0.50-1.20 H Specimen moderately (test code = 358) hemolyzed GLUCOSE RANDOM 76 mg/dL 70-110 (BEAKER) (test code = 652) CALCIUM (BEAKER) 8.6 mg/dL 8.5-10.5 (test code = 697) AST (SGOT) (BEAKER) 41 U/L 5-40 H Specimen moderately (test code = 353) hemolyzed ALT (SGPT) (BEAKER) 24 U/L 5-50 Specimen moderately (test code = 347) hemolyzed EGFR (BEAKER) (test 23 mL/min/1.73 ESTIMA NATE GFR IS code = 1092) sq m NOT ACCURATE CREATININE CLEARANCE IN PREDICTING GLOMERULAR FILTRATION RATE . ESTIMATED GFR I S NOT APPLICABLE FOR DIALYSIS PATIEN TS. Assistant Hvac Mechanic ID - LITOOperator ID - LITOOperator ID - LITOOperator ID - LITOOperator ID - LITOOperator ID - LITOOperator ID - LITOOperator ID - LITOOperator ID - LITOOperator ID - LITOOperator ID - LITOOperator ID - LITOOperator ID - LITOOperator ID - LITOOperator ID - LITOOperator ID - [id number] 07:03:09 Test Item Value Reference Range Interpretation Comments MAGNESIUM (BEAKER) 2.0 mg/dL 1.5-3.0 Specimen moderately (test code = 627) hemolyzed Assistant Hvac Mechanic ID - LITOOperator ID - LITOOperator ID - LITOOperator ID - JOSSY(MANUAL DIFFERENTIAL)2022-01-06 07:54:36 Test Item Value Reference Range Interpretation Comments NEUTROPHILS - REL (DIFF) (BEAKER) 86 % (test code = 1359) LYMPHOCYTES - REL (DIFF) (BEAKER) 5 % (test code = 1360) MONOCYTES - REL (DIFF) (BEAKER) 3 % (test code = 1361) BANDS - REL (DIFF) (BEAKER) (test 6 % 0-10 code = 1348) NEUTROPHILS - ABS (DIFF) (BEAKER) 30.01 K/ L 1.80-8.00 H (test code = 1365) LYMPHOCYTES - ABS (DIFF) (BEAKER) 1.75 K/ L 1.48-4.50 (test code = 1366) MONOCYTES - ABS (DIFF) (BEAKER) 1.05 K/ L 0.00-1.30 (test code = 1367) BANDS-ABS (DIFF) (BEAKER) (test 2.1 K/ L 0.0-0.8 H code = 1349) TOTAL COUNTED (BEAKER) (test code 100 = 1351) BANDS + SEGMENTED NEUTROPHILS 32.11 (BEAKER) (test code = 1352) MANUAL NRBC PER 100 CELLS (BEAKER) 1 /100 WBC 0-0 H (test code = 1353) WBC MORPHOLOGY (BEAKER) (test code Normal = 487) PLT MORPHOLOGY (BEAKER) (test code Normal = 486) RBC MORPHOLOGY (BEAKER) (test code Normal = 762) CBC W/PLT COUNT & AUTO [id number] 07:54:35 Test Item Value Reference Range Interpretation Comments WHITE BLOOD CELL COUNT (BEAKER) 34.9 K/ L 4.0-10.0 H (test code = 775) RED BLOOD CELL COUNT (BEAKER) 2.72 M/ L 4.20-5.80 L (test code = 761) HEMOGLOBIN (BEAKER) (test code = 8.7 GM/DL 13.0-16.8 L 410) HEMATOCRIT (BEAKER) (test code = 27.4 % 36.0-50.0 L 411) MEAN CORPUSCULAR VOLUME (BEAKER) 100.7 fL 82.0-99.0 H (test code = 753) MEAN CORPUSCULAR HEMOGLOBIN 32.0 pg 27.0-33.0 (BEAKER) (test code = 751) MEAN CORPUSCULAR HEMOGLOBIN CONC 31.8 GM/DL 32.0-36.0 L (BEAKER) (test code = 752) RED CELL DISTRIBUTION WIDTH 19.2 % 12.0-15.0 H (BEAKER) (test code = 412) PLATELET COUNT (BEAKER) (test 397 K/CU MM 150-430 code = 756) MEAN PLATELET VOLUME (BEAKER) 10.1 fL 6.0-11.5 (test code = 754) NUCLEATED RED BLOOD CELLS 0 /100 WBC 0-0 (BEAKER) (test code = 413) BASIC METABOLIC [id number] 07:12:34 Test Item Value Reference Range Interpretation Comments SODIUM (BEAKER) 144 meq/L 135-148 (test code = 381) POTASSIUM (BEAKER) 3.5 meq/L 3.6-5.5 L (test code = 379) CHLORIDE (BEAKER) 117 meq/L 98-106 H (test code = 382) CO2 (BEAKER) (test 17 meq/L 20-29 L code = 355) BLOOD UREA NITROGEN 50 mg/dL 10-26 H (BEAKER) (test code = 354) CREATININE (BEAKER) 2.63 mg/dL 0.50-1.20 H (test code = 358) GLUCOSE RANDOM 106 mg/dL 70-110 (BEAKER) (test code = 652) CALCIUM (BEAKER) 8.3 mg/dL 8.5-10.5 L (test code = 697) EGFR (BEAKER) (test 24 mL/min/1.73 ESTIMA NATE GFR IS code = 1092) sq m NOT ACCURATE CREATININE CLEARANCE IN PREDICTING GLOMERULAR FILTRATION RATE . ESTIMATED GFR I S NOT APPLICABLE FOR DIALYSIS PATIEN TS. Assistant Hvac Mechanic ID - DSENSONOperator ID - DSENSONOperator ID - DSENSONOperator ID - DSENSONOperator ID - DSENSONOperator ID - DSENSONOperator ID - DSENSONOperator ID - DSENSONOperator ID - DSENSONOperator ID - DSENSONOperator ID - DSENSONOperator ID - DSENSONOperator ID - DSENSONPrepare Leuko-Red [id number] 23:54:00 Test Item Value Reference Range Interpretation Comments CROSSMATCH (test code = 2264) COMPATIBLE Unit ABO (test code = A Pos [id number]) UNIT NUMBER (test code = [id number] 934-0) Status (test code = 8601231) TX_TIMEINCHART Blood Bank Product (test code RED BLOOD CELLS = 2263) PRODUCT CODE (test code = [id number] 933-2) [facility] [id number] 23:54:00 Test Item Value Reference Range Interpretation Comments CROSSMATCH (test code = 2264) COMPATIBLE Unit ABO (test code = A Pos 8923030) UNIT NUMBER (test code = [id number] 934-0) Status (test code = 8309779) TX_TIMEINCHART Blood Bank Product (test code RED BLOOD CELLS = 2263) PRODUCT CODE (test code = [id number] 933-2) [facility] [id number] 23:54:00 Test Item Value Reference Range Interpretation Comments CROSSMATCH (test code = 2264) COMPATIBLE Unit ABO (test code = A Pos 0475449) UNIT NUMBER (test code = [id number] 934-0) Status (test code = 1480056) [place] Blood Bank Product (test code RED BLOOD CELLS = 2263) PRODUCT CODE (test code = [id number] 933-2) [facility] [id number] 23:54:00 Test Item Value Reference Range Interpretation Comments CROSSMATCH (test code = 2264) COMPATIBLE Unit ABO (test code = A Pos 6058051) UNIT NUMBER (test code = [id number] 934-0) Status (test code = 6561336) [facility] Blood Bank Product (test code RED BLOOD CELLS = 2263) PRODUCT CODE (test code = [id number] 933-2) [facility](MANUAL DIFFERENTIAL)2022-01-05 08:32:40 Test Item Value Reference Range Interpretation Comments NEUTROPHILS - REL (DIFF) (BEAKER) 76 % (test code = 1359) LYMPHOCYTES - REL (DIFF) (BEAKER) 5 % (test code = 1360) MONOCYTES - REL (DIFF) (BEAKER) 5 % (test code = 1361) EOSINOPHILS - REL (DIFF) (BEAKER) 0 % (test code = 1362) BASOPHILS - REL (DIFF) (BEAKER) 0 % (test code = 1363) BANDS - REL (DIFF) (BEAKER) (test 14 % 0-10 H code = 1348) NEUTROPHILS - ABS (DIFF) (BEAKER) 27.36 K/ L 1.80-8.00 H (test code = 1365) LYMPHOCYTES - ABS (DIFF) (BEAKER) 1.80 K/ L 1.48-4.50 (test code = 1366) MONOCYTES - ABS (DIFF) (BEAKER) 1.80 K/ L 0.00-1.30 H (test code = 1367) EOSINOPHILS - ABS (DIFF) (BEAKER) 0.00 K/ L 0.00-0.50 (test code = 1368) BASOPHILS - ABS (DIFF) (BEAKER) 0.00 K/ L 0.00-0.20 (test code = 1369) BANDS-ABS (DIFF) (BEAKER) (test 5.0 K/ L 0.0-0.8 H code = 1349) TOTAL COUNTED (BEAKER) (test code 100 = 1351) BANDS + SEGMENTED NEUTROPHILS 32.40 (BEAKER) (test code = 1352) PLT MORPHOLOGY (BEAKER) (test code Normal = 486) RBC MORPHOLOGY (BEAKER) (test code Normal = 762) TOXIC GRANULATION (BEAKER) (test Present code = 771) CBC W/PLT COUNT & AUTO [id number] 08:32:39 Test Item Value Reference Range Interpretation Comments WHITE BLOOD CELL COUNT (BEAKER) 36.0 K/ L 4.0-10.0 H (test code = 775) RED BLOOD CELL COUNT (BEAKER) 2.65 M/ L 4.20-5.80 L (test code = 761) HEMOGLOBIN (BEAKER) (test code = 8.5 GM/DL 13.0-16.8 L 410) HEMATOCRIT (BEAKER) (test code = 27.0 % 36.0-50.0 L 411) MEAN CORPUSCULAR VOLUME (BEAKER) 101.9 fL 82.0-99.0 H (test code = 753) MEAN CORPUSCULAR HEMOGLOBIN 32.1 pg 27.0-33.0 (BEAKER) (test code = 751) MEAN CORPUSCULAR HEMOGLOBIN CONC 31.5 GM/DL 32.0-36.0 L (BEAKER) (test code = 752) RED CELL DISTRIBUTION WIDTH 20.1 % 12.0-15.0 H (BEAKER) (test code = 412) PLATELET COUNT (BEAKER) (test 379 K/CU MM 150-430 code = 756) MEAN PLATELET VOLUME (BEAKER) 10.1 fL 6.0-11.5 (test code = 754) NUCLEATED RED BLOOD CELLS 0 /100 WBC 0-0 (BEAKER) (test code = 413) COMPREHENSIVE METABOLIC [id number] 06:15:58 Test Item Value Reference Range Interpretation Comments TOTAL PROTEIN 5.4 gm/dL 6.0-8.5 L (BEAKER) (test code = 770) ALBUMIN (BEAKER) 2.1 g/dL 3.5-5.0 L (test code = 1145) ALKALINE PHOSPHATASE 310 U/L 30-115 H (BEAKER) (test code = 346) BILIRUBIN TOTAL 0.7 mg/dL 0.1-1.2 (BEAKER) (test code = 377) SODIUM (BEAKER) (test 146 meq/L 135-148 code = 381) POTASSIUM (BEAKER) 4.8 meq/L 3.6-5.5 (test code = 379) CHLORIDE (BEAKER) 119 meq/L 98-106 H (test code = 382) CO2 (BEAKER) (test 18 meq/L 20-29 L code = 355) BLOOD UREA NITROGEN 46 mg/dL 10-26 H (BEAKER) (test code = 354) CREATININE (BEAKER) 2.73 mg/dL 0.50-1.20 H (test code = 358) GLUCOSE RANDOM 98 mg/dL 70-110 (BEAKER) (test code = 652) CALCIUM (BEAKER) 8.2 mg/dL 8.5-10.5 L (test code = 697) AST (SGOT) (BEAKER) 70 U/L 5-40 H (test code = 353) ALT (SGPT) (BEAKER) 33 U/L 5-50 (test code = 347) EGFR (BEAKER) (test 23 mL/min/1.73 ESTIMA NATE GFR IS code = 1092) sq m NOT ACCURATE CREATININE CLEARANCE IN PREDICTING GLOMERULAR FILTRATION RATE . ESTIMATED GFR I S NOT APPLICABLE FOR DIALYSIS PATIEN TS. Assistant Hvac Mechanic ID - [id number] ID - [id number] ID - NANPANALV181Xbiadtks ID - LDDQFFKJP539Eodydfpu ID - EZVKRQWKI772Uaxblmcg ID - MMYGIQBIT026Ecqrxgnd ID - AJHHZEDCV612Kogrptqi ID - GFDJITZEB266Pmewahot ID - YQNRLZGNA448Qjeeqxrn ID - IJQQUTYYG672Zxwzcxwi ID - KQTIGJQLH274Mqcrjzul ID - WPUTYSAHW218Ucxvcnpf ID - UEQZOSYIN295Zqovwrrq ID - CHSUZNFYA648Ercibdec ID - XTIKQRQKH089Eijsyzkh ID -[id number] 06:14:15 Test Item Value Reference Range Interpretation Comments MAGNESIUM (BEAKER) (test code = 1.9 mg/dL 1.5-3.0 627) Assistant Hvac Mechanic ID - [id number] ID - VAHBBIAAA113Bcjkcvch ID - LLULCQTUS760Zqzoebyz ID - [id number] COMPONENT [id number] 11:21:20 Test Item Value Reference Range Interpretation Comments C4 COMPLEMENT (BEAKER) (test code = 34 mg/dL 15-57 394) Assistant Hvac Mechanic ID - RUBENS MCOMPLEMENT COMPONENT [id number] 11:21:20 Test Item Value Reference Range Interpretation Comments C3 COMPLEMENT (BEAKER) (test code = 134 mg/dL 82-193 393) Assistant Hvac Mechanic ID - RUBENS MOsmolality, [id number] 11:18:29 Test Item Value Reference Range Interpretation Comments Osmolality, Ur (test code 218 See_Comment [ Automated message] = 2695-5) The system [employer] generated this result transmitted ref erence range: 50-1,200 mOsm/kg mOsm/kg . The reference range was not used to int erpret this result as normal/abnormal . Lab Interpretation (test Normal code = 60972-5) [facility], [id number] 11:18:29 Test Item Value Reference Range Interpretation Comments Osmolality, Ur (test code 218 See_Comment [ Automated message] = 2695-5) The system [employer] generated this result transmitted ref erence range: 50-1,200 mOsm/kg mOsm/kg . The reference range was not used to int erpret this result as normal/abnormal . Lab Interpretation (test Normal code = 58339-5) [facility] HospitalOsmolaty, [id number] 11:18:29 Test Item Value Reference Range Interpretation Comments Osmolality, Ur (test code 218 See_Comment [ Automated message] = 2695-5) The system [employer] generated this result transmitted ref erence range: 50-1,200 mOsm/kg mOsm/kg . The reference range was not used to int erpret this result as normal/abnormal . Lab Interpretation (test Normal code = 55433-7) [facility] Hospital[facility]sm[facility], [id number] 11:18:29 Test Item Value Reference Range Interpretation Comments Osmolality, Ur (test code 218 See_Comment [ Automated message] = 2695-5) The system [employer] generated this result transmitted ref erence range: 50-1,200 mOsm/kg mOsm/kg . The reference range was not used to int erpret this result as normal/abnormal . Lab Interpretation (test Normal code = 40915-7) [facility] HospitalOSMOLALITY, [id number] 11:18:29 Test Item Value Reference Range Interpretation Comments OSMOLALITY URINE 218 mOsm/kg See_Comment [Automated message] (BEAKER) (test code = The sy stem which 614) generated this result transmitted ref erence range: 50-1,200 mOsm/kg. The reference range was not used to int erpret this result as normal/abnormal . COMPREHENSIVE METABOLIC [id number] 06:07:20 Test Item Value Reference Range Interpretation Comments TOTAL PROTEIN 5.4 gm/dL 6.0-8.5 L (BEAKER) (test code = 770) ALBUMIN (BEAKER) 2.2 g/dL 3.5-5.0 L (test code = 1145) ALKALINE PHOSPHATASE 288 U/L 30-115 H (BEAKER) (test code = 346) BILIRUBIN TOTAL 0.8 mg/dL 0.1-1.2 (BEAKER) (test code = 377) SODIUM (BEAKER) (test 144 meq/L 135-148 code = 381) POTASSIUM (BEAKER) 4.1 meq/L 3.6-5.5 (test code = 379) CHLORIDE (BEAKER) 116 meq/L 98-106 H (test code = 382) CO2 (BEAKER) (test 20 meq/L 20-29 code = 355) BLOOD UREA NITROGEN 45 mg/dL 10-26 H (BEAKER) (test code = 354) CREATININE (BEAKER) 2.67 mg/dL 0.50-1.20 H (test code = 358) GLUCOSE RANDOM 88 mg/dL 70-110 (BEAKER) (test code = 652) CALCIUM (BEAKER) 8.3 mg/dL 8.5-10.5 L (test code = 697) AST (SGOT) (BEAKER) 116 U/L 5-40 H (test code = 353) ALT (SGPT) (BEAKER) 49 U/L 5-50 (test code = 347) EGFR (BEAKER) (test 24 mL/min/1.73 ESTIMA NATE GFR IS code = 1092) sq m NOT ACCURATE CREATININE CLEARANCE IN PREDICTING GLOMERULAR FILTRATION RATE . ESTIMATED GFR I S NOT APPLICABLE FOR DIALYSIS PATIEN TS. Assistant Hvac Mechanic ID - LITOOperator ID - LITOOperator ID - LITOOperator ID - LITOOperator ID - LITOOperator ID - LITOOperator ID - LITOOperator ID - LITOOperator ID - LITOOperator ID - LITOOperator ID - LITOOperator ID - LITOOperator ID - LITOOperator ID - LITOOperator ID - LITOOperator ID - [id number] 06:04:30 Test Item Value Reference Range Interpretation Comments MAGNESIUM (BEAKER) (test code = 1.9 mg/dL 1.5-3.0 627) Assistant Hvac Mechanic ID - LITOOperator ID - LITOOperator ID - LITOOperator ID - LITOCBC W/PLT COUNT & AUTO [id number] 05:43:16 Test Item Value Reference Range Interpretation Comments WHITE BLOOD CELL COUNT (BEAKER) 19.8 K/ L 4.0-10.0 H (test code = 775) RED BLOOD CELL COUNT (BEAKER) 2.28 M/ L 4.20-5.80 L (test code = 761) HEMOGLOBIN (BEAKER) (test code = 7.4 GM/DL 13.0-16.8 L 410) HEMATOCRIT (BEAKER) (test code = 24.1 % 36.0-50.0 L 411) MEAN CORPUSCULAR VOLUME (BEAKER) 105.7 fL 82.0-99.0 H (test code = 753) MEAN CORPUSCULAR HEMOGLOBIN 32.5 pg 27.0-33.0 (BEAKER) (test code = 751) MEAN CORPUSCULAR HEMOGLOBIN CONC 30.7 GM/DL 32.0-36.0 L (BEAKER) (test code = 752) RED CELL DISTRIBUTION WIDTH 18.3 % 12.0-15.0 H (BEAKER) (test code = 412) PLATELET COUNT (BEAKER) (test 328 K/CU MM 150-430 code = 756) MEAN PLATELET VOLUME (BEAKER) 10.1 fL 6.0-11.5 (test code = 754) NUCLEATED RED BLOOD CELLS 0 /100 WBC 0-0 (BEAKER) (test code = 413) NEUTROPHILS RELATIVE PERCENT 89 % (BEAKER) (test code = 429) LYMPHOCYTES RELATIVE PERCENT 3 % (BEAKER) (test code = 430) MONOCYTES RELATIVE PERCENT 6 % (BEAKER) (test code = 431) EOSINOPHILS RELATIVE PERCENT 1 % (BEAKER) (test code = 432) BASOPHILS RELATIVE PERCENT 0 % (BEAKER) (test code = 437) NEUTROPHILS ABSOLUTE COUNT 17.60 K/ L 1.80-8.00 H (BEAKER) (test code = 670) LYMPHOCYTES ABSOLUTE COUNT 0.68 K/ L 1.48-4.50 L (BEAKER) (test code = 414) MONOCYTES ABSOLUTE COUNT (BEAKER) 1.10 K/ L 0.00-1.30 (test code = 415) EOSINOPHILS ABSOLUTE COUNT 0.14 K/ L 0.00-0.50 (BEAKER) (test code = 416) BASOPHILS ABSOLUTE COUNT (BEAKER) 0.04 K/ L 0.00-0.20 (test code = 417) IMMATURE GRANULOCYTES-RELATIVE 1 % 0-0 H PERCENT (BEAKER) (test code = 2801) SARS-CoV2/RT-PCR (Asymptomatic ONLY)2022-01-03 21:46:00 Test Item Value Reference Interpretation Comments Range SARS-COV2/RT-PCR Negative Negative The SARS-Co V-2 (test code = target nucleic 65490-5) acids are not detected in thi s specimen. Negat chester results do not preclude SARS-C oV-2 infection and should not be u sed as the sole bas is for patient management decisions. Nega tive results must be combined with clinical observations, patient history , and epidemiolog ical information. A false negative result may occu r if a specimen is improperly collected, transported or handled. This S ARS CoV-2 test is a rapid, real-yusuf e RT-PCR test intended for th e qualitative detection of nucleic acid fr om SARS-CoV-2 in a nasopharyngeal swab specimen collec nate from individual s suspected of COVID-19 by the ir healthcare provider. RAMON (test code = This test has been RAMON) authorized by FDA under an EUA for use by authorized laboratories. This test is only authorized for the duration of the declaration that circumstances exist justifying the authorization of emergency use of in vitro diagnostic tests for detection and/or diagnosis of COVID-19 under Section 564(b)(1) of the Federal Food, Drug and Cosmetic Act, 21 U.S.C. 360bbb-3(b)(1), unless the authorization is terminated or revoked sooner. Fact Sheet for Healthcare Providers: https://www.[employer]/Documents/Xp ert%20Xpress%20SAR S%20CoV-2/Fact%20S heets/302-3802%20S ARS-COV-2%20HEALTH CARE%20PROVIDERS%2 0FACT%20SHEET.pdf Fact Sheet for Healthcare Patients: https://www.[employer]/Documents/Xp ert%20Xpress%20SAR S%20CoV-2/Fact%20S heets/302-3801%20S ARS-COV-2%20PATIEN T%20FACT%20SHEET.p df Lab Interpretation Normal (test code = 20136-6) [facility]03 21:46:00 Test Item Value Reference Interpretation Comments Range SARS-COV2/RT-PCR Negative Negative The SARS-Co V-2 (test code = target nucleic 52387-1) acids are not detected in thi s specimen. Negat chester results do not preclude SARS-C oV-2 infection and should not be u sed as the sole bas is for patient management decisions. Nega tive results must be combined with clinical observations, patient history , and epidemiolog ical information. A false negative result may occu r if a specimen is improperly collected, transported or handled. This S ARS CoV-2 test is a rapid, real-yusuf e RT-PCR test intended for th e qualitative detection of nucleic acid fr om SARS-CoV-2 in a nasopharyngeal swab specimen collec nate from individual s suspected of COVID-19 by the ir healthcare provider. RAMON (test code = This test has been RAMON) authorized by FDA under an EUA for use by authorized laboratories. This test is only authorized for the duration of the declaration that circumstances exist justifying the authorization of emergency use of in vitro diagnostic tests for detection and/or diagnosis of COVID-19 under Section 564(b)(1) of the Federal Food, Drug and Cosmetic Act, 21 U.S.C. 360bbb-3(b)(1), unless the authorization is terminated or revoked sooner. Fact Sheet for Healthcare Providers: https://www.[employer]/Documents/Xp ert%20Xpress%20SAR S%20CoV-2/Fact%20S heets/302-3802%20S ARS-COV-2%20HEALTH CARE%20PROVIDERS%2 0FACT%20SHEET.pdf Fact Sheet for Healthcare Patients: https://www.[employer]/Documents/Xp ert%20Xpress%20SAR S%20CoV-2/Fact%20S heets/302-3801%20S ARS-COV-2%20PATIEN T%20FACT%20SHEET.p df Lab Interpretation Normal (test code = 57679-6) [facility]22-01-03 21:46:00 Test Item Value Reference Interpretation Comments Range SARS-COV2/RT-PCR Negative Negative The SARS-Co V-2 (test code = target nucleic 89306-4) acids are not detected in thi s specimen. Negat chester results do not preclude SARS-C oV-2 infection and should not be u sed as the sole bas is for patient management decisions. Nega tive results must be combined with clinical observations, patient history , and epidemiolog ical information. A false negative result may occu r if a specimen is improperly collected, transported or handled. This S ARS CoV-2 test is a rapid, real-yusuf e RT-PCR test intended for th e qualitative detection of nucleic acid fr om SARS-CoV-2 in a nasopharyngeal swab specimen colle nate from individual s suspected of COVID-19 by the ir healthcare provider. RAMON (test code = This test has been RAMON) authorized by FDA under an EUA for use by authorized laboratories. This test is only authorized for the duration of the declaration that circumstances exist justifying the authorization of emergency use of in vitro diagnostic tests for detection and/or diagnosis of COVID-19 under Section 564(b)(1) of the Federal Food, Drug and Cosmetic Act, 21 U.S.C. 360bbb-3(b)(1), unless the authorization is terminated or revoked sooner. Fact Sheet for Healthcare Providers: https://www.[employer]/Documents/Xp ert%20Xpress%20SAR S%20CoV-2/Fact%20S heets/302-3802%20S ARS-COV-2%20HEALTH CARE%20PROVIDERS%2 0FACT%20SHEET.pdf Fact Sheet for Healthcare Patients: https://www.[employer]/Documents/Xp ert%20Xpress%20SAR S%20CoV-2/Fact%20S heets/302-3801%20S ARS-COV-2%20PATIEN T%20FACT%20SHEET.p df Lab Interpretation Normal (test code = 21918-9) [facility]2022-01-03 21:46:00 Test Item Value Reference Range Interpretation Comments SARS-COV2/RT-PCR Negative Negative The SARS-Co V-2 target (test code = nucleic acids a re not 4817125) detected in thi s specimen. Negative result s do not preclude SARS-C oV-2 infection and s hould not be used as the afshin e basis for patient managem ent decisions. Nega tive results must be combine d with clinical observ ations, patient history , and epidemiological information. A false negativ e result may occur if a spec imen is improperly josefina ected, transported or handled. This SARS CoV-2 test is a rapid, real-time RT-PC R test intended for th e qualitative detection of nu cleic acid from SARS-CoV-2 in a nasopharyngeal swab specimen collected from individuals suspected of CO VID-19 by their healthcar e provider. This test has been authorized by FDA under an EUA for use by authorized laboratories. This test is only authorized for the duration of the declaration that circumstances exist justifying the authorization of emergency use of in vitro diagnostic tests for detection and/or diagnosis of COVID-19 under Section 564(b)(1) of the Federal Food, Drug and Cosmetic Act, 21 U.S.C. 360bbb-3(b)(1), unless the authorization is terminated or revoked sooner. Fact Sheet for Healthcare Providers: https://www.[employer] m/Documents/Xpert%20Xpress%20SARS%20CoV-2/Fact%20Sheets/302-3802%28KZKG-EGT-3%20 HEALTHCARE%20PROVIDERS%20FACT%20SHEET.pdf Fact Sheet for Healthcare Patients: https://www.[employer]/Documents/Xpert%20Xp ress%20SARS%20CoV-2/Fact%20Sheets/302-3801%99JIBC-SIO-7%20PATIENT%20FACT%20SHEET .pdfProtein, random [id number] 17:23:00 Test Item Value Reference Range Interpretation Comments Protein, Urine (test code 19 mg/dL 0-14 H = 2888-6) RAMON (test code = RAMON) Assistant Hvac Mechanic ID - ERINY Lab Interpretation (test Abnormal code = 62321-9) [facility] [id number] 17:23:00 Test Item Value Reference Range Interpretation Comments Protein, Urine (test code 19 mg/dL 0-14 H = 2888-6) RAMON (test code = RAMON) Assistant Hvac Mechanic ID - ERINY Lab Interpretation (test Abnormal code = 35100-2) [facility] [id number] 17:23:00 Test Item Value Reference Range Interpretation Comments Protein, Urine (test code 19 mg/dL 0-14 H = 2888-6) RAMON (test code = RAMON) Assistant Hvac Mechanic ID - ERINY Lab Interpretation (test Abnormal code = 42610-4) [facility] [id number] 17:23:00 Test Item Value Reference Range Interpretation Comments Protein, Urine (test code 19 mg/dL 0-14 H = 2888-6) RAMON (test code = RAMON) Assistant Hvac Mechanic ID - ERINY Lab Interpretation (test Abnormal code = 24589-9) [facility] [id number] 17:23:00 Test Item Value Reference Range Interpretation Comments PROTEIN, URINE (BEAKER) (test code = 19 mg/dL 0-14 H 1569) Assistant Hvac Mechanic ID - ERINYCreatinine, random [id number] 17:21:09 Test Item Value Reference Range Interpretation Comments Creatinine, Ur 32.6 mg/dL (test code = 2161-8) RAMON (test code = Reference Range: No RAMON) NormalsOperator ID - ERINY [facility] [id number] 17:21:09 Test Item Value Reference Range Interpretation Comments Creatinine, Ur 32.6 mg/dL (test code = 2161-8) RAMON (test code = Reference Range: No RAMON) NormalsOperator ID - KADE [facility] HospitalCregabrieleine, random [id number] 17:21:09 Test Item Value Reference Range Interpretation Comments Creatinine, Ur 32.6 mg/dL (test code = 2161-8) RAMON (test code = Reference Range: No RAMON) NormalsOperator ID - KADE [facility] HospitalCregillette children's specialty healthcareine, random [id number] 17:21:09 Test Item Value Reference Range Interpretation Comments Creatinine, Ur 32.6 mg/dL (test code = 2161-8) RAMON (test code = Reference Range: No RAMON) NormalsOperator ID - KADE [facility] HospitalCREC[facility] HOSPITALINE, RANDOM [id number] 17:21:09 Test Item Value Reference Range Interpretation Comments CREATININE URINE (BEAKER) (test 32.6 mg/dL code = 375) Reference Range: No NormalsOperator ID - NEYDAINYPROTHROMBIN TIME/[id number] 17:16:18 Test Item Value Reference Range Interpretation Comments PROTIME (BEAKER) 10.9 seconds 9.3-12.0 Final Infor mation (test code = 759) (Auto Outp ut) INR (BEAKER) (test 0.99 See_Comment Final Inf ormation code = 370) (Auto Output) [Automated mess age] The system Application Experts generated this result transmitted ref erence range: <=5.90. The reference range was not used to int erpret this result as normal/abnormal . RECOMMENDED COUMADIN/WARFARIN INR THERAPY RANGESSTANDARD DOSE: 2.0 - 3.0 Includes: PROPHYLAXIS for venous thrombosis, systemic embolization; TREATMENT for venous thrombosis and/or pulmonary embolus.HIGH RISK: Target INR is 2.5-3.5 for patients with mechanical heart valves.Sodium, random [id number] 17:14:54 Test Item Value Reference Range Interpretation Comments Sodium Urine (test 38 meq/L code = 2955-3) RAMON (test code = Reference Range: No RAMON) NormalsOperator ID - KADE [facility] Centerodium, random [id number] 17:14:54 Test Item Value Reference Range Interpretation Comments Sodium Urine (test 38 meq/L code = 2955-3) RAMON (test code = Reference Range: No RAMON) NormalsOperator ID - KADE [facility] CenterODIUM, RANDOM [id number] 17:14:54 Test Item Value Reference Range Interpretation Comments SODIUM URINE (BEAKER) (test code = 38 meq/L 243) Reference Range: No NormalsOperator ID - ERINYPotassium, random [id number] 17:14:16 Test Item Value Reference Range Interpretation Comments Potassium Urine 8.2 meq/L (test code = 2828-2) RAMON (test code = Reference Range: No RAMON) NormalsOperator ID - KADE [facility] HospitalPotassium, random [id number] 17:14:16 Test Item Value Reference Range Interpretation Comments Potassium Urine 8.2 meq/L (test code = 2828-2) RAMON (test code = Reference Range: No RAMON) NormalsOperator ID - NEYDADEEdison [facility]byterian HospitalPOTASSIUM, RANDOM [id number] 17:14:16 Test Item Value Reference Range Interpretation Comments POTASSIUM URINE (BEAKER) (test code 8.2 meq/L = 195) Reference Range: No NormalsOperator ID - LUIZY(MANUAL DIFFERENTIAL)2022-01-03 07:28:53 Test Item Value Reference Range Interpretation Comments NEUTROPHILS - REL (DIFF) (BEAKER) 84 % (test code = 1359) LYMPHOCYTES - REL (DIFF) (BEAKER) 7 % (test code = 1360) MONOCYTES - REL (DIFF) (BEAKER) 5 % (test code = 1361) BANDS - REL (DIFF) (BEAKER) (test 4 % 0-10 code = 1348) NEUTROPHILS - ABS (DIFF) (BEAKER) 13.61 K/ L 1.80-8.00 H (test code = 1365) LYMPHOCYTES - ABS (DIFF) (BEAKER) 1.13 K/ L 1.48-4.50 L (test code = 1366) MONOCYTES - ABS (DIFF) (BEAKER) 0.81 K/ L 0.00-1.30 (test code = 1367) BANDS-ABS (DIFF) (BEAKER) (test 0.6 K/ L 0.0-0.8 code = 1349) TOTAL COUNTED (BEAKER) (test code 100 = 1351) BANDS + SEGMENTED NEUTROPHILS 14.26 (BEAKER) (test code = 1352) WBC MORPHOLOGY (BEAKER) (test code Normal = 487) PLT MORPHOLOGY (BEAKER) (test code Normal = 486) RBC MORPHOLOGY (BEAKER) (test code Normal = 762) CBC W/PLT COUNT & AUTO [id number] 07:28:52 Test Item Value Reference Range Interpretation Comments WHITE BLOOD CELL COUNT (BEAKER) 16.2 K/ L 4.0-10.0 H (test code = 775) RED BLOOD CELL COUNT (BEAKER) 2.38 M/ L 4.20-5.80 L (test code = 761) HEMOGLOBIN (BEAKER) (test code = 7.7 GM/DL 13.0-16.8 L 410) HEMATOCRIT (BEAKER) (test code = 24.9 % 36.0-50.0 L 411) MEAN CORPUSCULAR VOLUME (BEAKER) 104.6 fL 82.0-99.0 H (test code = 753) MEAN CORPUSCULAR HEMOGLOBIN 32.4 pg 27.0-33.0 (BEAKER) (test code = 751) MEAN CORPUSCULAR HEMOGLOBIN CONC 30.9 GM/DL 32.0-36.0 L (BEAKER) (test code = 752) RED CELL DISTRIBUTION WIDTH 18.2 % 12.0-15.0 H (BEAKER) (test code = 412) PLATELET COUNT (BEAKER) (test 280 K/CU MM 150-430 code = 756) MEAN PLATELET VOLUME (BEAKER) 9.7 fL 6.0-11.5 (test code = 754) NUCLEATED RED BLOOD CELLS 0 /100 WBC 0-0 (BEAKER) (test code = 413) COMPREHENSIVE METABOLIC [id number] 07:24:44 Test Item Value Reference Range Interpretation Comments TOTAL PROTEIN 5.8 gm/dL 6.0-8.5 L (BEAKER) (test code = 770) ALBUMIN (BEAKER) 2.2 g/dL 3.5-5.0 L (test code = 1145) ALKALINE PHOSPHATASE 160 U/L 30-115 H (BEAKER) (test code = 346) BILIRUBIN TOTAL 0.6 mg/dL 0.1-1.2 (BEAKER) (test code = 377) SODIUM (BEAKER) (test 143 meq/L 135-148 code = 381) POTASSIUM (BEAKER) 4.2 meq/L 3.6-5.5 (test code = 379) CHLORIDE (BEAKER) 114 meq/L 98-106 H (test code = 382) CO2 (BEAKER) (test 21 meq/L 20-29 code = 355) BLOOD UREA NITROGEN 46 mg/dL 10-26 H (BEAKER) (test code = 354) CREATININE (BEAKER) 2.63 mg/dL 0.50-1.20 H (test code = 358) GLUCOSE RANDOM 119 mg/dL 70-110 H (BEAKER) (test code = 652) CALCIUM (BEAKER) 8.5 mg/dL 8.5-10.5 (test code = 697) AST (SGOT) (BEAKER) 50 U/L 5-40 H (test code = 353) ALT (SGPT) (BEAKER) 40 U/L 5-50 (test code = 347) EGFR (BEAKER) (test 24 mL/min/1.73 ESTIMA NATE GFR IS code = 1092) sq m NOT ACCURATE CREATININE CLEARANCE IN PREDICTING GLOMERULAR FILTRATION RATE . ESTIMATED GFR I S NOT APPLICABLE FOR DIALYSIS PATIEN TS. Assistant Hvac Mechanic ID - LITOOperator ID - LITOOperator ID - LITOOperator ID - LITOOperator ID - LITOOperator ID - LITOOperator ID - LITOOperator ID - LITOOperator ID - LITOOperator ID - LITOOperator ID - LITOOperator ID - LITOOperator ID - LITOOperator ID - LITOOperator ID - LITOOperator ID - [id number] 07:24:07 Test Item Value Reference Range Interpretation Comments MAGNESIUM (BEAKER) (test code = 1.9 mg/dL 1.5-3.0 627) Assistant Hvac Mechanic ID - LITOOperator ID - LITOOperator ID - LITOOperator ID - [id number] 2022-01-03 06:59:56 Test Item Value Reference Range Interpretation Comments PARTIAL THROMBOPLASTIN 29.8 seconds 23.0-35.0 Final Information TIME (BEAKER) (test (Auto Ou tput) code = 760) POC-Glucose [id number] 06:47:54 Test Item Value Reference Range Interpretation Comments POC-Glucose Meter (test 131 mg/dL 70-110 H : TE STED AT [facility] code = 1538) [address], [facility] [id number]: Assistant Hvac Mechanic/Techni yadi ID = [id number] for Tayla Fernandez Lab Interpretation (test Abnormal code = 79442-6) [facility]CT[facility]SE [id number] 06:47:54 Test Item Value Reference Range Interpretation Comments POC-GLUCOSE METER 131 mg/dL 70-110 H : TESTED A T [facility] [address] (BEAKER) (test code [address], = 1538) [facility] [address]: Assistant Hvac Mechanic/Techni yadi ID = [id number] for Tayla Sanders BLOOD [id number] 01:00:51 Test Item Value Reference Range Interpretation Comments CULTURE (BEAKER) (test No growth in 5 days code = 1095) BLOOD [id number] 01:00:50 Test Item Value Reference Range Interpretation Comments CULTURE (BEAKER) (test No growth in 5 days code = 1095) HEMOGLOBIN AND [id number] 18:18:43 Test Item Value Reference Range Interpretation Comments HEMOGLOBIN (BEAKER) (test code = 6.9 GM/DL 13.0-16.8 L 410) HEMATOCRIT (BEAKER) (test code = 21.7 % 36.0-50.0 L 411) COMPREHENSIVE METABOLIC [id number] 15:28:54 Test Item Value Reference Range Interpretation Comments TOTAL PROTEIN 6.5 gm/dL 6.0-8.5 (BEAKER) (test code = 770) ALBUMIN (BEAKER) 2.5 g/dL 3.5-5.0 L (test code = 1145) ALKALINE PHOSPHATASE 204 U/L 30-115 H (BEAKER) (test code = 346) BILIRUBIN TOTAL 0.9 mg/dL 0.1-1.2 (BEAKER) (test code = 377) SODIUM (BEAKER) (test 143 meq/L 135-148 code = 381) POTASSIUM (BEAKER) 3.1 meq/L 3.6-5.5 L (test code = 379) CHLORIDE (BEAKER) 110 meq/L 98-106 H (test code = 382) CO2 (BEAKER) (test 21 meq/L 20-29 code = 355) BLOOD UREA NITROGEN 37 mg/dL 10-26 H (BEAKER) (test code = 354) CREATININE (BEAKER) 2.66 mg/dL 0.50-1.20 H (test code = 358) GLUCOSE RANDOM 97 mg/dL 70-110 (BEAKER) (test code = 652) CALCIUM (BEAKER) 9.2 mg/dL 8.5-10.5 (test code = 697) AST (SGOT) (BEAKER) 50 U/L 5-40 H (test code = 353) ALT (SGPT) (BEAKER) 49 U/L 5-50 (test code = 347) EGFR (BEAKER) (test 24 mL/min/1.73 ESTIMA NATE GFR IS code = 1092) sq m NOT ACCURATE CREATININE CLEARANCE IN PREDICTING GLOMERULAR FILTRATION RATE . ESTIMATED GFR I S NOT APPLICABLE FOR DIALYSIS PATIEN TS. Assistant Hvac Mechanic ID - [id number] ID - [id number] ID - [id number] ID - [id number] ID - [id number] ID - [id number] ID - [id number] ID - [id number] ID - [id number] ID - [id number] ID - [id number] ID - [id number] ID - [id number] ID - [id number] ID - [id number] ID - [id number] ID - [id number] ID - [id number] ID - [id number] 2022-01-02 12:55:51 Test Item Value Reference Range Interpretation Comments PARTIAL THROMBOPLASTIN 76.3 seconds 23.0-35.0 H Final Information TIME (BEAKER) (test (Auto Ou tput) code = 760) MR, EXTREMITY, LOWER, JOINT, WITHOUT CONTRAST, [id number] 10:49:00Please evaluate for osteomyelitis of the second toe with possible gangrene Unlisted Reason for Exam - Click Yes and Enter Reason Below->No osteomyelitis second toe Does the patient have an implantedelectronic device?->No [facility] 1955 Sex: MFINAL REPORT MRI of the left forefoot History: Unlisted Reason for Exam Comparison: Radiograph dated December 30, 2021 Technique: Multiplanar multisequence MRI of the left forefoot was performed without contrast. Findings: Exam is mildly motion degraded. There is mild scattered degenerative change in the left forefoot. Small foci of subchondral cystic change is noted in the first metatars al head. No fracture or malalignment. No significant joint effusion. There is mild, patchy subcutaneous and muscle edema in the left forefoot. No drainable collection is seen. The extensor, and flexor tendons are intact, no tenosynovitis. Impression: Mild osteoarthritis. Mild nonspecific subcutaneous a nd muscle edema. Signed: Andrea Castro Verified Date/Time: 01/02/2022 10:49:14 Reading Location:[address] Ortho Consult Reading Room [id number] 04:37:09 Test Item Value Reference Range Interpretation Comments PARTIAL THROMBOPLASTIN 60.7 seconds 23.0-35.0 H Final Information TIME (BEAKER) (test (Auto Ou tput) code = 760) [id number] 20:10:33 Test Item Value Reference Range Interpretation Comments PARTIAL THROMBOPLASTIN 39.9 seconds 23.0-35.0 H Final Information TIME (BEAKER) (test (Auto Ou tput) code = 760) [id number] 10:29:50 Test Item Value Reference Range Interpretation Comments PARTIAL THROMBOPLASTIN 47.2 seconds 23.0-35.0 H Final Information TIME (BEAKER) (test (Auto Ou tput) code = 760) CBC W/PLT COUNT & AUTO [id number] 05:24:24 Test Item Value Reference Range Interpretation Comments WHITE BLOOD CELL COUNT (BEAKER) 19.0 K/ L 4.0-10.0 H (test code = 775) RED BLOOD CELL COUNT (BEAKER) 2.31 M/ L 4.20-5.80 L (test code = 761) HEMOGLOBIN (BEAKER) (test code = 7.8 GM/DL 13.0-16.8 L 410) HEMATOCRIT (BEAKER) (test code = 24.4 % 36.0-50.0 L 411) MEAN CORPUSCULAR VOLUME (BEAKER) 105.6 fL 82.0-99.0 H (test code = 753) MEAN CORPUSCULAR HEMOGLOBIN 33.8 pg 27.0-33.0 H (BEAKER) (test code = 751) MEAN CORPUSCULAR HEMOGLOBIN CONC 32.0 GM/DL 32.0-36.0 (BEAKER) (test code = 752) RED CELL DISTRIBUTION WIDTH 16.9 % 12.0-15.0 H (BEAKER) (test code = 412) PLATELET COUNT (BEAKER) (test 274 K/CU MM 150-430 code = 756) MEAN PLATELET VOLUME (BEAKER) 9.6 fL 6.0-11.5 (test code = 754) NUCLEATED RED BLOOD CELLS 0 /100 WBC 0-0 (BEAKER) (test code = 413) NEUTROPHILS RELATIVE PERCENT 78 % (BEAKER) (test code = 429) LYMPHOCYTES RELATIVE PERCENT 11 % (BEAKER) (test code = 430) MONOCYTES RELATIVE PERCENT 5 % (BEAKER) (test code = 431) EOSINOPHILS RELATIVE PERCENT 2 % (BEAKER) (test code = 432) BASOPHILS RELATIVE PERCENT 0 % (BEAKER) (test code = 437) NEUTROPHILS ABSOLUTE COUNT 14.89 K/ L 1.80-8.00 H (BEAKER) (test code = 670) LYMPHOCYTES ABSOLUTE COUNT 2.08 K/ L 1.48-4.50 (BEAKER) (test code = 414) MONOCYTES ABSOLUTE COUNT (BEAKER) 1.01 K/ L 0.00-1.30 (test code = 415) EOSINOPHILS ABSOLUTE COUNT 0.32 K/ L 0.00-0.50 (BEAKER) (test code = 416) BASOPHILS ABSOLUTE COUNT (BEAKER) 0.05 K/ L 0.00-0.20 (test code = 417) IMMATURE GRANULOCYTES-RELATIVE 4 % 0-0 H PERCENT (BEAKER) (test code = 2801) COMPREHENSIVE METABOLIC [id number] 05:18:05 Test Item Value Reference Range Interpretation Comments TOTAL PROTEIN 6.1 gm/dL 6.0-8.5 (BEAKER) (test code = 770) ALBUMIN (BEAKER) 2.5 g/dL 3.5-5.0 L (test code = 1145) ALKALINE PHOSPHATASE 222 U/L 30-115 H (BEAKER) (test code = 346) BILIRUBIN TOTAL 1.0 mg/dL 0.1-1.2 (BEAKER) (test code = 377) SODIUM (BEAKER) (test 148 meq/L 135-148 code = 381) POTASSIUM (BEAKER) 4.0 meq/L 3.6-5.5 (test code = 379) CHLORIDE (BEAKER) 115 meq/L 98-106 H (test code = 382) CO2 (BEAKER) (test 22 meq/L 20-29 code = 355) BLOOD UREA NITROGEN 33 mg/dL 10-26 H (BEAKER) (test code = 354) CREATININE (BEAKER) 2.11 mg/dL 0.50-1.20 H (test code = 358) GLUCOSE RANDOM 99 mg/dL 70-110 (BEAKER) (test code = 652) CALCIUM (BEAKER) 9.4 mg/dL 8.5-10.5 (test code = 697) AST (SGOT) (BEAKER) 43 U/L 5-40 H (test code = 353) ALT (SGPT) (BEAKER) 53 U/L 5-50 H (test code = 347) EGFR (BEAKER) (test 31 mL/min/1.73 ESTIMA NATE GFR IS code = 1092) sq m NOT ACCURATE CREATININE CLEARANCE IN PREDICTING GLOMERULAR FILTRATION RATE . ESTIMATED GFR I S NOT APPLICABLE FOR DIALYSIS PATIEN TS. Assistant Hvac Mechanic ID - LITOOperator ID - LITOOperator ID - LITOOperator ID - LITOOperator ID - LITOOperator ID - LITOOperator ID - LITOOperator ID - LITOOperator ID - LITOOperator ID - LITOOperator ID - LITOOperator ID - LITOOperator ID - LITOOperator ID - LITOOperator ID - LITOOperator ID - LITOOperator ID - L ITOOperator ID - LITOOperator ID - LITOMR, BRAIN, WITHOUT [id number] 20:16:00Unlisted Reason for Exam - Click Yes and Enter Reason Below->No [facility] : 1955 Sex: MFINAL REPORT MR, BRAIN, WITHOUT CONTRAST INDICATION: Altered mental status TECHNIQUE: Multiplanar, multisequence MR imaging of the brain was obtained. COMPARISON: None FINDINGS:Small remote lacunar infarcts of the basal ganglia. Midline structures are normally developed. No restricted diffusion to suggest recent ischemic insult. No abnormal susceptibility. Scattered T2/FLAIR hyperintense foci within the periventricular and subcortical white matter are nonspecific, however, statistically represent chronic microvascular ischemic changes. No hydrocephalus. Orbits are within normal limits. No obstructive paranasal sinus disease. IMPRESSION: No acute infarct.Small remote infarcts of thebasal ganglia and centrum semiovale. Signed: Francine Barber MDReport Verified Date/Time: 0:16:55 [id number] 10:45:30 Test Item Value Reference Range Interpretation Comments PREALBUMIN (BEAKER) (test code = 586) 8 mg/dL 14-45 L Assistant Hvac Mechanic ID - [id number] 09:25:29 Test Item Value Reference Range Interpretation Comments PARTIAL THROMBOPLASTIN 55.2 seconds 23.0-35.0 H Final Information TIME (BEAKER) (test (Auto Ou tput) code = 760) COMPREHENSIVE METABOLIC [id number] 05:20:59 Test Item Value Reference Range Interpretation Comments TOTAL PROTEIN 6.4 gm/dL 6.0-8.5 (BEAKER) (test code = 770) ALBUMIN (BEAKER) 2.7 g/dL 3.5-5.0 L (test code = 1145) ALKALINE PHOSPHATASE 212 U/L 30-115 H (BEAKER) (test code = 346) BILIRUBIN TOTAL 1.5 mg/dL 0.1-1.2 H (BEAKER) (test code = 377) SODIUM (BEAKER) (test 150 meq/L 135-148 H code = 381) POTASSIUM (BEAKER) 4.9 meq/L 3.6-5.5 (test code = 379) CHLORIDE (BEAKER) 117 meq/L 98-106 H (test code = 382) CO2 (BEAKER) (test 22 meq/L 20-29 code = 355) BLOOD UREA NITROGEN 33 mg/dL 10-26 H (BEAKER) (test code = 354) CREATININE (BEAKER) 2.26 mg/dL 0.50-1.20 H (test code = 358) GLUCOSE RANDOM 99 mg/dL 70-110 (BEAKER) (test code = 652) CALCIUM (BEAKER) 9.8 mg/dL 8.5-10.5 (test code = 697) AST (SGOT) (BEAKER) 63 U/L 5-40 H (test code = 353) ALT (SGPT) (BEAKER) 68 U/L 5-50 H (test code = 347) EGFR (BEAKER) (test 29 mL/min/1.73 ESTIMA NATE GFR IS code = 1092) sq m NOT ACCURATE CREATININE CLEARANCE IN PREDICTING GLOMERULAR FILTRATION RATE . ESTIMATED GFR I S NOT APPLICABLE FOR DIALYSIS PATIEN TS. Assistant Hvac Mechanic ID - ERINYOperator ID - ERINYOperator ID - ERINYOperator ID - ERINYOperator ID - ERINYOperator ID - ERINYOperator ID - ERINYOperator ID - ERINYOperator ID - ERINYOperator ID - ERINYOperator ID- ERINYOperator ID - ERINYOperator ID - ERINYOperator ID - ERINYOperator ID - ERINYOperator ID - LUIZ [id number] 05:13:26 Test Item Value Reference Range Interpretation Comments MAGNESIUM (BEAKER) (test code = 2.1 mg/dL 1.5-3.0 627) Assistant Hvac Mechanic ID - ERINYOperator ID - ERINYOperator ID - ERINYOperator ID - ERINYCBC W/PLT COUNT & AUTO [id number] 04:48:12 Test Item Value Reference Range Interpretation Comments WHITE BLOOD CELL COUNT (BEAKER) 18.4 K/ L 4.0-10.0 H (test code = 775) RED BLOOD CELL COUNT (BEAKER) 2.47 M/ L 4.20-5.80 L (test code = 761) HEMOGLOBIN (BEAKER) (test code = 8.3 GM/DL 13.0-16.8 L 410) HEMATOCRIT (BEAKER) (test code = 26.3 % 36.0-50.0 L 411) MEAN CORPUSCULAR VOLUME (BEAKER) 106.5 fL 82.0-99.0 H (test code = 753) MEAN CORPUSCULAR HEMOGLOBIN 33.6 pg 27.0-33.0 H (BEAKER) (test code = 751) MEAN CORPUSCULAR HEMOGLOBIN CONC 31.6 GM/DL 32.0-36.0 L (BEAKER) (test code = 752) RED CELL DISTRIBUTION WIDTH 16.7 % 12.0-15.0 H (BEAKER) (test code = 412) PLATELET COUNT (BEAKER) (test 286 K/CU MM 150-430 code = 756) MEAN PLATELET VOLUME (BEAKER) 9.6 fL 6.0-11.5 (test code = 754) NUCLEATED RED BLOOD CELLS 0 /100 WBC 0-0 (BEAKER) (test code = 413) NEUTROPHILS RELATIVE PERCENT 77 % (BEAKER) (test code = 429) LYMPHOCYTES RELATIVE PERCENT 12 % (BEAKER) (test code = 430) MONOCYTES RELATIVE PERCENT 5 % (BEAKER) (test code = 431) EOSINOPHILS RELATIVE PERCENT 1 % (BEAKER) (test code = 432) BASOPHILS RELATIVE PERCENT 0 % (BEAKER) (test code = 437) NEUTROPHILS ABSOLUTE COUNT 14.21 K/ L 1.80-8.00 H (BEAKER) (test code = 670) LYMPHOCYTES ABSOLUTE COUNT 2.16 K/ L 1.48-4.50 (BEAKER) (test code = 414) MONOCYTES ABSOLUTE COUNT (BEAKER) 0.96 K/ L 0.00-1.30 (test code = 415) EOSINOPHILS ABSOLUTE COUNT 0.24 K/ L 0.00-0.50 (BEAKER) (test code = 416) BASOPHILS ABSOLUTE COUNT (BEAKER) 0.06 K/ L 0.00-0.20 (test code = 417) IMMATURE GRANULOCYTES-RELATIVE 4 % 0-0 H PERCENT (BEAKER) (test code = 2801) [id number] 01:51:26 Test Item Value Reference Range Interpretation Comments PARTIAL THROMBOPLASTIN 52.1 seconds 23.0-35.0 H Final Information TIME (BEAKER) (test (Auto Ou tput) code = 760) C-REACTIVE [id number] 16:04:12 Test Item Value Reference Range Interpretation Comments C-REACTIVE PROTEIN (BEAKER) (test 19.67 mg/dL 0.00-0.50 H code = 676) Assistant Hvac Mechanic ID - [id number] 15:54:19 Test Item Value Reference Range Interpretation Comments PARTIAL THROMBOPLASTIN 48.4 seconds 23.0-35.0 H Final Information TIME (BEAKER) (test (Auto Ou tput) code = 760) ARTERIAL DOPPLER LEG, [id number] 15:47:00Reason for exam:->[facility] : 1955 Sex: MFINAL REPORT History: Peripheral arterial disease. FINDINGS: Real-time left lower extremity arterial Doppler examination including color, grayscale and spectral Doppler analysis demonstrates moderate diffuse partially calcified atherosclerotic plaque in the arteries of the left lower extremity. The common femoral, deep femoral, superficial femoral, popliteal, posterior tibial, anterior tibial and peroneal arteries are patent. Peak systolic velocities are normal. Triphasic waveforms are seen to the level of the mid popliteal artery. Monophasic waveforms are seen more distally. The mid popliteal artery is not well visualized. Findings could represent a focal stenosis in this area. IMP RESSION: 1. Moderate diffuse partially calcified atherosclerotic plaque of the left lower extremity arteries with monophasic waveforms beginning at the level of the mid popliteal artery. This could represent a hemodynamically significant focal stenosis in the mid popliteal artery region but this area is not well-seen and therefore velocities and flow cannot be adequately assessed. CTA or conventionalangiogram would be useful for further evaluation if clinically indicated. Signed: Aleksandar Christianson MDReport Verified Date/Time: 12/30/2021 15:47:00 Reading Location: [facility] Radiology Reading Room RAD, FOOT, MIN 3 VIEWS, LEFT 2021-12-30 11:11:00Reason for exam:->woundsShould this be performed at the bedside?->[facility] LASAHWN : 1955 Sex: MFINAL REPORT History: Left lower extremity wounds. FINDINGS: Left tibia and fibula series, two views: AP and lateral views of the left tibia and fibula show no fractures or acute bone abnormalities. Atherosclerotic calcification of the popliteal artery and distal vessels is seen. Alignment appears normal. Linear lucency is noted in the proximal left tibial metaphysis, possibly representing old surgical hardware. Left ankle series, three views: Multiple views of the left ankle show nofractures or acute bone abnormalities. Well- corticated bone fragment in the region of the medial malleolus may represent an old avulsion injury. Tibiotalar joint is intact without significant degenerative change. Alignment appears normal and surrounding soft tissues are unremarkable. Left foot series,three views: Multiple views of the left foot show no fractures or acute bone abnormalities. Alignment appears normal and the joint spaces are intact without significant degenerative change. Surroundingsoft tissues are unremarkable. IMPRESSION: 1. No acute fractures or bone abnormalities of the left distal lower extremity. 2. Atherosclerosis. Signed: Aleksandar Christiansonort Verified Date/Time: 12/30/2021 11:11:03 Reading Location: [facility] Radiology Reading Room RAD, ANKLE, MIN 3 VIEWS, [id number] 11:11:00Reason for exam:- >woundsShould this be performed at the bedside?->Yes [facility] : 1955 Sex: MFINAL REPORT History: Left lower extremity wounds. FINDINGS: Left tibia and fibula series, two views: AP and lateral views of the left tibia and fibula show no fractures or acute bone abnormalities. Atherosclerotic calcification of the popliteal artery and distal vessels is seen. Alignment appears normal. Linear lucency is noted in the proximal left tibial metaphysis, possibly representing old surgical hardware. Left ankle series, three views: Multiple views of the left ankle show nofractures or acute bone abnormalities. Well- corticated bone fragment in the region of the medial malleolus may represent an old avulsion injury. Tibiotalar joint is intact without significant degenerative change. Alignment appears normal and surrounding soft tissues are unremarkable. Left foot series,three views: Multiple views of the left foot show no fractures or acute bone abnormalities. Alignment appears normal and the joint spaces are intact without significant degenerative change. Surroundingsoft tissues are unremarkable. IMPRESSION: 1. No acute fractures or bone abnormalities of the left distal lower extremity. 2. Atherosclerosis. Signed: Aleksandar Christianson MDReport Verified Date/Time: 12/30/2021 11:11:03 Reading Location: [facility] Radiology Reading Room RAD, LEG, [id number] 11:11:00Reason for exam:->woundsShould this be performed at the bedside?->Yes [facility] : 1955 Sex: MFINAL REPORT History: Left lower extremity wounds. FINDINGS: Left tibia and fibula series, two views: AP and lateral views of the left tibia and fibula show no fractures or acute bone abnormalities. Atherosclerotic calcification of the popliteal artery and distal vessels is seen. Alignment appears normal. Linear lucency is noted in the proximal left tibial metaphysis, possibly representing old surgical hardware. Left ankle series, three views: Multiple views of the left ankle show nofractures or acute bone abnormalities. Well- corticated bone fragment in the region of the medial malleolus may represent an old avulsion injury. Tibiotalar joint is intact without significant degenerative change. Alignment appears normal and surrounding soft tissues are unremarkable. Left foot series,three views: Multiple views of the left foot show no fractures or acute bone abnormalities. Alignment appears normal and the joint spaces are intact without significant degenerative change. Surroundingsoft tissues are unremarkable. IMPRESSION: 1. No acute fractures or bone abnormalities of the left distal lower extremity. 2. Atherosclerosis. Signed: Aleksandar Christianson Verified Date/Time: 12/30/2021 11:11:03 Reading Location: [facility] Radiology Reading Room 2D Echo W/Doppler(CW/PW/Color)2021-12-30 07:55:56Ejection FractionSLEH ECHO HEARTLAB [facility] Echo W/Doppler(CW/PW/Color)2021-12-30 07:55:56Ejection FractionSLEH ECHO HEARTLAB [facility]2D Echo W/Doppler(CW/PW/Color) 2021-12-30 07:55:56Ejection FractionSLEH ECHO HEARTLAB [facility]2D Echo W/Doppler(CW/PW/Color)2021-12-30 07:55:56Ejection FractionSLEH ECHO HEARTLAB [facility]2D Echo W/Doppler(CW/PW/Color)2021-12-30 07:55:56[facility]/PW/Color[facility] 2021-12-30 07:55:56Ejection FractionSLEH ECHO HEARTLAB [facility]2D Echo W/Doppler(CW/PW/Color)2021-12-30 07:55:56Ejection FractionSLEH ECHO HEARTLAB [facility] Echo W/Doppler(CW/PW/Color)2021-12-30 07:55:56Ejection FractionSLEH ECHO [facility]ARTLAB [facility] CenterCOMPREHENSIVE METABOLIC PANEL 2021-12-30 07:02:16 Test Item Value Reference Range Interpretation Comments TOTAL PROTEIN 5.3 gm/dL 6.0-8.5 L (BEAKER) (test code = 770) ALBUMIN (BEAKER) 2.4 g/dL 3.5-5.0 L (test code = 1145) ALKALINE PHOSPHATASE 149 U/L 30-115 H (BEAKER) (test code = 346) BILIRUBIN TOTAL 1.1 mg/dL 0.1-1.2 (BEAKER) (test code = 377) SODIUM (BEAKER) (test 144 meq/L 135-148 code = 381) POTASSIUM (BEAKER) 4.7 meq/L 3.6-5.5 (test code = 379) CHLORIDE (BEAKER) 113 meq/L 98-106 H (test code = 382) CO2 (BEAKER) (test 22 meq/L 20-29 code = 355) BLOOD UREA NITROGEN 35 mg/dL 10-26 H (BEAKER) (test code = 354) CREATININE (BEAKER) 2.30 mg/dL 0.50-1.20 H (test code = 358) GLUCOSE RANDOM 86 mg/dL 70-110 (BEAKER) (test code = 652) CALCIUM (BEAKER) 8.8 mg/dL 8.5-10.5 (test code = 697) AST (SGOT) (BEAKER) 48 U/L 5-40 H (test code = 353) ALT (SGPT) (BEAKER) 62 U/L 5-50 H (test code = 347) EGFR (BEAKER) (test 28 mL/min/1.73 ESTIMA NATE GFR IS code = 1092) sq m NOT ACCURATE CREATININE CLEARANCE IN PREDICTING GLOMERULAR FILTRATION RATE . ESTIMATED GFR I S NOT APPLICABLE FOR DIALYSIS PATIEN TS. Assistant Hvac Mechanic ID - DSENSONOperator ID - DSENSONOperator ID - DSENSONOperator ID - DSENSONOperator ID - DSENSONOperator ID - DSENSONOperator ID - DSENSONOperator ID - DSENSONOperator ID - DSENSONOperator ID - DSENSONOperator ID - DSENSONOperator ID - DSENSONOperator ID - DSENSONOperator ID - DSENSONOperatorID - DSENSONOperator ID - [id number] 07:00:58 Test Item Value Reference Range Interpretation Comments MAGNESIUM (BEAKER) (test code = 2.1 mg/dL 1.5-3.0 627) Assistant Hvac Mechanic ID - DSENSONOperator ID - DSENSONOperator ID - DSENSONOperator ID - [id number] 06:51:08 Test Item Value Reference Range Interpretation Comments PARTIAL THROMBOPLASTIN 46.1 seconds 23.0-35.0 H Final Information TIME (BEAKER) (test (Auto Ou tput) code = 760) CBC W/PLT COUNT & AUTO [id number] 06:50:59 Test Item Value Reference Range Interpretation Comments WHITE BLOOD CELL COUNT (BEAKER) 13.1 K/ L 4.0-10.0 H (test code = 775) RED BLOOD CELL COUNT (BEAKER) 2.27 M/ L 4.20-5.80 L (test code = 761) HEMOGLOBIN (BEAKER) (test code = 7.6 GM/DL 13.0-16.8 L 410) HEMATOCRIT (BEAKER) (test code = 24.2 % 36.0-50.0 L 411) MEAN CORPUSCULAR VOLUME (BEAKER) 106.6 fL 82.0-99.0 H (test code = 753) MEAN CORPUSCULAR HEMOGLOBIN 33.5 pg 27.0-33.0 H (BEAKER) (test code = 751) MEAN CORPUSCULAR HEMOGLOBIN CONC 31.4 GM/DL 32.0-36.0 L (BEAKER) (test code = 752) RED CELL DISTRIBUTION WIDTH 16.6 % 12.0-15.0 H (BEAKER) (test code = 412) PLATELET COUNT (BEAKER) (test 231 K/CU MM 150-430 code = 756) MEAN PLATELET VOLUME (BEAKER) 9.7 fL 6.0-11.5 (test code = 754) NUCLEATED RED BLOOD CELLS 0 /100 WBC 0-0 (BEAKER) (test code = 413) NEUTROPHILS RELATIVE PERCENT 77 % (BEAKER) (test code = 429) LYMPHOCYTES RELATIVE PERCENT 12 % (BEAKER) (test code = 430) MONOCYTES RELATIVE PERCENT 5 % (BEAKER) (test code = 431) EOSINOPHILS RELATIVE PERCENT 2 % (BEAKER) (test code = 432) BASOPHILS RELATIVE PERCENT 0 % (BEAKER) (test code = 437) NEUTROPHILS ABSOLUTE COUNT 10.06 K/ L 1.80-8.00 H (BEAKER) (test code = 670) LYMPHOCYTES ABSOLUTE COUNT 1.61 K/ L 1.48-4.50 (BEAKER) (test code = 414) MONOCYTES ABSOLUTE COUNT (BEAKER) 0.67 K/ L 0.00-1.30 (test code = 415) EOSINOPHILS ABSOLUTE COUNT 0.21 K/ L 0.00-0.50 (BEAKER) (test code = 416) BASOPHILS ABSOLUTE COUNT (BEAKER) 0.03 K/ L 0.00-0.20 (test code = 417) IMMATURE GRANULOCYTES-RELATIVE 4 % 0-0 H PERCENT (BEAKER) (test code = 2801) [id number] 22:19:04 Test Item Value Reference Range Interpretation Comments PARTIAL THROMBOPLASTIN 45.3 seconds 23.0-35.0 H Final Information TIME (BEAKER) (test (Auto Ou tput) code = 760) [id number] 14:50:42 Test Item Value Reference Range Interpretation Comments PARTIAL THROMBOPLASTIN 59.2 seconds 23.0-35.0 H Final Information TIME (BEAKER) (test (Auto Ou tput) code = 760) TROPONIN [id number] 06:13:12 Test Item Value Reference Range Interpretation Comments TROPONIN I (BEAKER) (test code = 0.07 ng/mL 0.00-0.15 397) Troponin I (TnI) levels must be interpreted in the context of the presenting symptoms and the clinical findings. Elevated TnI levels indicate myocardial damage, but are not specific for ischemic heart disease. Elevated TnI levels are seen in patients with other cardiac conditions (including myocarditis and congestive heart failure), and slight TnI elevations occur in patients with other conditions, including sepsis, renal failure, acidosis, acute neurological disease, and persistent tachyarrhythmia.Assistant Hvac Mechanic ID - [id number] METABOLIC [id number] 06:07:11 Test Item Value Reference Range Interpretation Comments TOTAL PROTEIN 6.0 gm/dL 6.0-8.5 (BEAKER) (test code = 770) ALBUMIN (BEAKER) 2.7 g/dL 3.5-5.0 L (test code = 1145) ALKALINE PHOSPHATASE 147 U/L 30-115 H (BEAKER) (test code = 346) BILIRUBIN TOTAL 1.4 mg/dL 0.1-1.2 H (BEAKER) (test code = 377) SODIUM (BEAKER) (test 147 meq/L 135-148 code = 381) POTASSIUM (BEAKER) 3.9 meq/L 3.6-5.5 (test code = 379) CHLORIDE (BEAKER) 112 meq/L 98-106 H (test code = 382) CO2 (BEAKER) (test 23 meq/L 20-29 code = 355) BLOOD UREA NITROGEN 41 mg/dL 10-26 H (BEAKER) (test code = 354) CREATININE (BEAKER) 2.42 mg/dL 0.50-1.20 H (test code = 358) GLUCOSE RANDOM 105 mg/dL 70-110 (BEAKER) (test code = 652) CALCIUM (BEAKER) 9.4 mg/dL 8.5-10.5 (test code = 697) AST (SGOT) (BEAKER) 68 U/L 5-40 H (test code = 353) ALT (SGPT) (BEAKER) 83 U/L 5-50 H (test code = 347) EGFR (BEAKER) (test 27 mL/min/1.73 ESTIMA NATE GFR IS code = 1092) sq m NOT ACCURATE CREATININE CLEARANCE IN PREDICTING GLOMERULAR FILTRATION RATE . ESTIMATED GFR I S NOT APPLICABLE FOR DIALYSIS PATIEN TS. Assistant Hvac Mechanic ID - [id number] ID - [id number] ID - [id number] ID - [id number] ID - ANDFTXCTZ490Wboccxqq ID - [id number] ID - HYEECUOJV901Xasyszdy ID - LQZJMUMXZ548Kesfacjl ID - IDQIFXQCE078Bykhejwm ID - JNECKGDHZ910Hidoywau ID - [id number] ID - [id number] ID - JZDTLMLWE067Gdxqlsya ID - IOGQHBOWS752Qxjacswc ID - HJJLJDQBM450Figljhlx ID -[id number] 06:06:28 Test Item Value Reference Range Interpretation Comments MAGNESIUM (BEAKER) (test code = 2.0 mg/dL 1.5-3.0 627) Assistant Hvac Mechanic ID - [id number] ID - [id number] ID - [id number] ID - [id number] 06:06:28 Test Item Value Reference Range Interpretation Comments PARTIAL THROMBOPLASTIN 40.7 seconds 23.0-35.0 H Final Information TIME (BEAKER) (test (Auto Ou tput) code = 760) CBC W/PLT COUNT & AUTO [id number] 05:51:43 Test Item Value Reference Range Interpretation Comments WHITE BLOOD CELL COUNT (BEAKER) 16.7 K/ L 4.0-10.0 H (test code = 775) RED BLOOD CELL COUNT (BEAKER) 2.60 M/ L 4.20-5.80 L (test code = 761) HEMOGLOBIN (BEAKER) (test code = 8.8 GM/DL 13.0-16.8 L 410) HEMATOCRIT (BEAKER) (test code = 27.5 % 36.0-50.0 L 411) MEAN CORPUSCULAR VOLUME (BEAKER) 105.8 fL 82.0-99.0 H (test code = 753) MEAN CORPUSCULAR HEMOGLOBIN 33.8 pg 27.0-33.0 H (BEAKER) (test code = 751) MEAN CORPUSCULAR HEMOGLOBIN CONC 32.0 GM/DL 32.0-36.0 (BEAKER) (test code = 752) RED CELL DISTRIBUTION WIDTH 16.4 % 12.0-15.0 H (BEAKER) (test code = 412) PLATELET COUNT (BEAKER) (test 233 K/CU MM 150-430 code = 756) MEAN PLATELET VOLUME (BEAKER) 9.7 fL 6.0-11.5 (test code = 754) NUCLEATED RED BLOOD CELLS 0 /100 WBC 0-0 (BEAKER) (test code = 413) NEUTROPHILS RELATIVE PERCENT 86 % (BEAKER) (test code = 429) LYMPHOCYTES RELATIVE PERCENT 7 % (BEAKER) (test code = 430) MONOCYTES RELATIVE PERCENT 5 % (BEAKER) (test code = 431) EOSINOPHILS RELATIVE PERCENT 0 % (BEAKER) (test code = 432) BASOPHILS RELATIVE PERCENT 0 % (BEAKER) (test code = 437) NEUTROPHILS ABSOLUTE COUNT 14.27 K/ L 1.80-8.00 H (BEAKER) (test code = 670) LYMPHOCYTES ABSOLUTE COUNT 1.09 K/ L 1.48-4.50 L (BEAKER) (test code = 414) MONOCYTES ABSOLUTE COUNT (BEAKER) 0.86 K/ L 0.00-1.30 (test code = 415) EOSINOPHILS ABSOLUTE COUNT 0.05 K/ L 0.00-0.50 (BEAKER) (test code = 416) BASOPHILS ABSOLUTE COUNT (BEAKER) 0.03 K/ L 0.00-0.20 (test code = 417) IMMATURE GRANULOCYTES-RELATIVE 2 % 0-0 H PERCENT (BEAKER) (test code = 2801) RAD, CHEST, 1 VIEW, NON [id number] 01:45:00Reason for exam:- >PNEUMONIAShould this be performed at the bedside?->Yes [facility] 1955 Sex: MFINAL REPORT EXAM: Chest one view COMPARISON: None available CLINICAL HISTORY: Pneumonia FINDINGS: Discoid opacity is noted in the right midlung which may represent subsegmental atelectasis. There is no evidence of pleural effusion or pneumothorax. The cardiac size is within normal limits. The regional osseous structures are unremarkable. Signed: Soledad Sharif MDReport Verified Date/ Time: 12/29/2021 01:45:05 IANO [id number] 22:21:09 Test Item Value Reference Range Interpretation Comments TROPONIN I (BEAKER) (test code = 0.07 ng/mL 0.00-0.15 397) Troponin I (TnI) levels must be interpreted in the context of the presenting symptoms and the clinical findings. Elevated TnI levels indicate myocardial damage, but are not specific for ischemic heart disease. Elevated TnI levels are seen in patients with other cardiac conditions (including myocarditis and congestive heart failure), and slight TnI elevations occur in patients with other conditions, including sepsis, renal failure, acidosis, acute neurological disease, and persistent tachyarrhythmia.Assistant Hvac Mechanic ID - ERINYCOMPREHENSIVE METABOLIC [id number] 22:16:48 Test Item Value Reference Range Interpretation Comments TOTAL PROTEIN 7.0 gm/dL 6.0-8.5 (BEAKER) (test code = 770) ALBUMIN (BEAKER) 3.1 g/dL 3.5-5.0 L (test code = 1145) ALKALINE PHOSPHATASE 184 U/L 30-115 H (BEAKER) (test code = 346) BILIRUBIN TOTAL 1.7 mg/dL 0.1-1.2 H (BEAKER) (test code = 377) SODIUM (BEAKER) (test 145 meq/L 135-148 code = 381) POTASSIUM (BEAKER) 4.1 meq/L 3.6-5.5 (test code = 379) CHLORIDE (BEAKER) 109 meq/L 98-106 H (test code = 382) CO2 (BEAKER) (test 21 meq/L 20-29 code = 355) BLOOD UREA NITROGEN 41 mg/dL 10-26 H (BEAKER) (test code = 354) CREATININE (BEAKER) 2.43 mg/dL 0.50-1.20 H (test code = 358) GLUCOSE RANDOM 106 mg/dL 70-110 (BEAKER) (test code = 652) CALCIUM (BEAKER) 9.4 mg/dL 8.5-10.5 (test code = 697) AST (SGOT) (BEAKER) 98 U/L 5-40 H (test code = 353) ALT (SGPT) (BEAKER) 105 U/L 5-50 H (test code = 347) EGFR (BEAKER) (test 27 mL/min/1.73 ESTIMA ANTE GFR IS code = 1092) sq m NOT ACCURATE CREATININE CLEARANCE IN PREDICTING GLOMERULAR FILTRATION RATE . ESTIMATED GFR I S NOT APPLICABLE FOR DIALYSIS PATIEN TS. Assistant Hvac Mechanic ID - ERINYOperator ID - ERINYOperator ID - ERINYOperator ID - ERINYOperator ID - ERINYOperator ID - ERINYOperator ID - ERINYOperator ID - ERINYOperator ID - ERINYOperator ID - ERINYOperator ID- ERINYOperator ID - ERINYOperator ID - ERINYOperator ID - ERINYOperator ID - ERINYOperator ID - LUIZ [id number] 22:14:52 Test Item Value Reference Range Interpretation Comments MAGNESIUM (BEAKER) (test code = 2.0 mg/dL 1.5-3.0 627) Assistant Hvac Mechanic ID - ERINYOperator ID - ERINYOperator ID - ERINYOperator ID - ERINY LIPID [id number] 22:14:12 Test Item Value Reference Range Interpretation Comments TRIGLYCERIDES (BEAKER) (test code = 147 mg/dL 540) CHOLESTEROL (BEAKER) (test code = 142 mg/dL 631) HDL CHOLESTEROL (BEAKER) (test code 50 mg/dL = 976) LDL CHOLESTEROL CALCULATED (BEAKER) 63 mg/dL (test code = 633) Triglyceride Reference Range: Low Risk <150 Borderline 150-199 High Risk 200- 499 Very High Risk >=500Cholesterol Reference Range: Low Risk <200 Borderline 200-239 High Risk >240HDL Cholesterol Reference Range: Low Risk >=60 High Risk <40LDL Cholesterol Reference Range: Optimal <100 Near Optimal 100-129 Borderline 130-159 High 160-189 Very High >=190 Assistant Hvac Mechanic ID - ERINYOperator ID - ERINYOperator ID - ERINYUrinalysis w/ [id number] 22:12:25 Test Item Value Reference Range Interpretation Comments Color, UA (test code = Yellow 5778-6) Clarity, UA (test code = Clear 5767-9) Specific [place], UA <=1.005 1.001-1.035 (test code = 5811-5) pH, UA (test code = 6.0 5.0-8.0 5803-2) Protein, UA (test code = 30 mg/dL Negative A 70953-8) Glucose, UA (test code = Negative Negative 365) Ketones, UA (test code = Negative Negative 2514-8) Bilirubin, UA (test code Negative Negative = 40479-1) Blood, UA (test code = Small Negative A 17685-7) Nitrite, UA (test code = Negative Negative 5802-4) Leukocytes, UA (test Negative Negative code = 5799-2) Urobilinogen, UA (test 4.0 mg/dL 0.2-1.0 H code = 79548-5) Bacteria, UA (test code None Seen = 82220-6) RBC, UA (test code = <5 See_Comment [Autom ated message] 799-7) The system [employer] generated this result transmit nate reference range : /HPF. The refer ence range was not u sed to interpret th is result as normal/abnormal . WBC, UA (test code = None Seen See_Comment [Autom ated message] 16210-7) The system [employer] generated this result transmit nate reference range : /HPF. The refer ence range was not u sed to interpret th is result as normal/abnormal . SQUAMOUS EPITHELIAL <5 See_Comment [Automa nate message] (test code = 44186-0) The sy stem which generated this result transmit nate reference range : /HPF. The refer ence range was not u sed to interpret th is result as normal/abnormal . Specimen Source (test code = 2795) Lab Interpretation (test Abnormal code = 95855-9) [facility] [id number] 22:12:25 Test Item Value Reference Range Interpretation Comments Color, UA (test code = Yellow 5778-6) Clarity, UA (test code = Clear 5767-9) Specific [place], UA <=1.005 1.001-1.035 (test code = 5811-5) pH, UA (test code = 6.0 5.0-8.0 5803-2) Protein, UA (test code = 30 mg/dL Negative A 90259-1) Glucose, UA (test code = Negative Negative 365) Ketones, UA (test code = Negative Negative 2514-8) Bilirubin, UA (test code Negative Negative = 31927-0) Blood, UA (test code = Small Negative A 22064-3) Nitrite, UA (test code = Negative Negative 5802-4) Leukocytes, UA (test Negative Negative code = 5799-2) Urobilinogen, UA (test 4.0 mg/dL 0.2-1.0 H code = 44721-1) Bacteria, UA (test code None Seen = 24810-8) RBC, UA (test code = <5 See_Comment [Autom ated message] 799-7) The system [employer] generated this result transmit nate reference range : /HPF. The refer ence range was not u sed to interpret th is result as normal/abnormal . WBC, UA (test code = None Seen See_Comment [Autom ated message] 95180-5) The system [employer] generated this result transmit nate reference range : /HPF. The refer ence range was not u sed to interpret th is result as normal/abnormal . SQUAMOUS EPITHELIAL <5 See_Comment [Automa nate message] (test code = 87447-1) The sy stem which generated this result transmit nate reference range : /HPF. The refer ence range was not u sed to interpret th is result as normal/abnormal . Specimen Source (test code = 2795) Lab Interpretation (test Abnormal code = 35575-5) [facility] [id number] 22:12:25 Test Item Value Reference Range Interpretation Comments Color, UA (test code = Yellow 5778-6) Clarity, UA (test code = Clear 5767-9) Specific [place], UA <=1.005 1.001-1.035 (test code = 5811-5) pH, UA (test code = 6.0 5.0-8.0 5803-2) Protein, UA (test code = 30 mg/dL Negative A 19351-2) Glucose, UA (test code = Negative Negative 365) Ketones, UA (test code = Negative Negative 2514-8) Bilirubin, UA (test code Negative Negative = 40541-8) Blood, UA (test code = Small Negative A 53497-1) Nitrite, UA (test code = Negative Negative 5802-4) Leukocytes, UA (test Negative Negative code = 5799-2) Urobilinogen, UA (test 4.0 mg/dL 0.2-1.0 H code = 53310-5) Bacteria, UA (test code None Seen = 38928-6) RBC, UA (test code = <5 See_Comment [Autom ated message] 799-7) The system [employer] generated this result transmit nate reference range : /HPF. The refer ence range was not u sed to interpret th is result as normal/abnormal . WBC, UA (test code = None Seen See_Comment [Autom ated message] 02131-3) The system [employer] generated this result transmit nate reference range : /HPF. The refer ence range was not u sed to interpret th is result as normal/abnormal . SQUAMOUS EPITHELIAL <5 See_Comment [Automa nate message] (test code = 14045-2) The sy stem which generated this result transmit nate reference range : /HPF. The refer ence range was not u sed to interpret th is result as normal/abnormal . Specimen Source (test code = 2795) Lab Interpretation (test Abnormal code = 01769-8) [facility] [id number] 22:12:25 Test Item Value Reference Range Interpretation Comments Color, UA (test code = Yellow 5778-6) Clarity, UA (test code = Clear 5767-9) Specific [place], UA <=1.005 1.001-1.035 (test code = 5811-5) pH, UA (test code = 6.0 5.0-8.0 5803-2) Protein, UA (test code = 30 mg/dL Negative A 35712-1) Glucose, UA (test code = Negative Negative 365) Ketones, UA (test code = Negative Negative 2514-8) Bilirubin, UA (test code Negative Negative = 03333-4) Blood, UA (test code = Small Negative A 01232-2) Nitrite, UA (test code = Negative Negative 5802-4) Leukocytes, UA (test Negative Negative code = 5799-2) Urobilinogen, UA (test 4.0 mg/dL 0.2-1.0 H code = 41527-7) Bacteria, UA (test code None Seen = 86854-0) RBC, UA (test code = <5 See_Comment [Autom ated message] 799-7) The system [employer] generated this result transmit nate reference range : /HPF. The refer ence range was not u sed to interpret th is result as normal/abnormal . WBC, UA (test code = None Seen See_Comment [Autom ated message] 15281-9) The system [employer] generated this result transmit nate reference range : /HPF. The refer ence range was not u sed to interpret th is result as normal/abnormal . SQUAMOUS EPITHELIAL <5 See_Comment [Automa nate message] (test code = 58767-6) The sy stem which generated this result transmit nate reference range : /HPF. The refer ence range was not u sed to interpret th is result as normal/abnormal . Specimen Source (test code = 2795) Lab Interpretation (test Abnormal code = 93923-7) [facility] [id number] 22:12:25 Test Item Value Reference Range Interpretation Comments Color, UA (test code = Yellow 5778-6) Clarity, UA (test code = Clear 5767-9) Specific [place], UA <=1.005 1.001-1.035 (test code = 5811-5) pH, UA (test code = 6.0 5.0-8.0 5803-2) Protein, UA (test code = 30 mg/dL Negative A 86995-6) Glucose, UA (test code = Negative Negative 365) Ketones, UA (test code = Negative Negative 2514-8) Bilirubin, UA (test code Negative Negative = 33273-5) Blood, UA (test code = Small Negative A 95972-7) Nitrite, UA (test code = Negative Negative 5802-4) Leukocytes, UA (test Negative Negative code = 5799-2) Urobilinogen, UA (test 4.0 mg/dL 0.2-1.0 H code = 08842-1) Bacteria, UA (test code None Seen = 63092-7) RBC, UA (test code = <5 See_Comment [Autom ated message] 799-7) The system [employer] generated this result transmit naet reference range : /HPF. The refer ence range was not u sed to interpret th is result as normal/abnormal . WBC, UA (test code = None Seen See_Comment [Autom ated message] 98954-7) The system [employer] generated this result transmit nate reference range : /HPF. The refer ence range was not u sed to interpret th is result as normal/abnormal . SQUAMOUS EPITHELIAL <5 See_Comment [Automa nate message] (test code = 24424-0) The sy stem which generated this result transmit nate reference range : /HPF. The refer ence range was not u sed to interpret th is result as normal/abnormal . Specimen Source (test code = 2795) Lab Interpretation (test Abnormal code = 70402-3) [facility] [id number] 22:12:25 Test Item Value Reference Range Interpretation Comments Color, UA (test code = Yellow 5778-6) Clarity, UA (test code = Clear 5767-9) Specific [place], UA <=1.005 1.001-1.035 (test code = 5811-5) pH, UA (test code = 6.0 5.0-8.0 5803-2) Protein, UA (test code = 30 mg/dL Negative A 42224-9) Glucose, UA (test code = Negative Negative 365) Ketones, UA (test code = Negative Negative 2514-8) Bilirubin, UA (test code Negative Negative = 92205-0) Blood, UA (test code = Small Negative A 23802-6) Nitrite, UA (test code = Negative Negative 5802-4) Leukocytes, UA (test Negative Negative code = 5799-2) Urobilinogen, UA (test 4.0 mg/dL 0.2-1.0 H code = 84744-4) Bacteria, UA (test code None Seen = 62294-7) RBC, UA (test code = <5 See_Comment [Autom ated message] 799-7) The system [employer] generated this result transmit nate reference range : /HPF. The refer ence range was not u sed to interpret th is result as normal/abnormal . WBC, UA (test code = None Seen See_Comment [Autom ated message] 84738-1) The system [employer] generated this result transmit nate reference range : /HPF. The refer ence range was not u sed to interpret th is result as normal/abnormal . SQUAMOUS EPITHELIAL <5 See_Comment [Automa nate message] (test code = 74691-6) The sy stem which generated this result transmit nate reference range : /HPF. The refer ence range was not u sed to interpret th is result as normal/abnormal . Specimen Source (test code = 2795) Lab Interpretation (test Abnormal code = 62618-4) [facility] [id number] 22:12:25 Test Item Value Reference Range Interpretation Comments Color, UA (test code = Yellow 5778-6) Clarity, UA (test code = Clear 5767-9) Specific [place], UA <=1.005 1.001-1.035 (test code = 5811-5) pH, UA (test code = 6.0 5.0-8.0 5803-2) Protein, UA (test code = 30 mg/dL Negative A 87351-9) Glucose, UA (test code = Negative Negative 365) Ketones, UA (test code = Negative Negative 2514-8) Bilirubin, UA (test code Negative Negative = 96071-0) Blood, UA (test code = Small Negative A 28454-7) Nitrite, UA (test code = Negative Negative 5802-4) Leukocytes, UA (test Negative Negative code = 5799-2) Urobilinogen, UA (test 4.0 mg/dL 0.2-1.0 H code = 31922-3) Bacteria, UA (test code None Seen = 69208-3) RBC, UA (test code = <5 See_Comment [Autom ated message] 799-7) The system [employer] generated this result transmit nate reference range : /HPF. The refer ence range was not u sed to interpret th is result as normal/abnormal . WBC, UA (test code = None Seen See_Comment [Autom ated message] 00870-7) The system [employer] generated this result transmit nate reference range : /HPF. The refer ence range was not u sed to interpret th is result as normal/abnormal . SQUAMOUS EPITHELIAL <5 See_Comment [Automa nate message] (test code = 07811-7) The sy stem which generated this result transmit nate reference range : /HPF. The refer ence range was not u sed to interpret th is result as normal/abnormal . Specimen Source (test code = 2795) Lab Interpretation (test Abnormal code = 45448-5) [facility] [id number] 22:12:25 Test Item Value Reference Range Interpretation Comments Color, UA (test code = Yellow 5778-6) Clarity, UA (test code = Clear 5767-9) Specific [place], UA <=1.005 1.001-1.035 (test code = 5811-5) pH, UA (test code = 6.0 5.0-8.0 5803-2) Protein, UA (test code = 30 mg/dL Negative A 63925-5) Glucose, UA (test code = Negative Negative 365) Ketones, UA (test code = Negative Negative 2514-8) Bilirubin, UA (test code Negative Negative = 43553-5) Blood, UA (test code = Small Negative A 61385-0) Nitrite, UA (test code = Negative Negative 5802-4) Leukocytes, UA (test Negative Negative code = 5799-2) Urobilinogen, UA (test 4.0 mg/dL 0.2-1.0 H code = 84884-0) Bacteria, UA (test code None Seen = 80949-7) RBC, UA (test code = <5 See_Comment [Autom ated message] 799-7) The system [employer] generated this result transmit nate reference range : /HPF. The refer ence range was not u sed to interpret th is result as normal/abnormal . WBC, UA (test code = None Seen See_Comment [Autom ated message] 56650-1) The system [employer] generated this result transmit nate reference range : /HPF. The refer ence range was not u sed to interpret th is result as normal/abnormal . SQUAMOUS EPITHELIAL <5 See_Comment [Automa nate message] (test code = 94012-3) The sy stem which generated this result transmit nate reference range : /HPF. The refer ence range was not u sed to interpret th is result as normal/abnormal . Specimen Source (test code = 2795) Lab Interpretation (test Abnormal code = 52048-6) [facility] [id number] 22:12:25 Test Item Value Reference Range Interpretation Comments COLOR (BEAKER) (test code = Yellow 470) CLARITY (BEAKER) (test code = Clear 469) SPECIFIC GRAVITY UA (BEAKER) <= 1.001-1.035 (test code = 468) PH UA (BEAKER) (test code = 6.0 5.0-8.0 467) PROTEIN UA (BEAKER) (test code 30 mg/dL Negative A = 464) GLUCOSE UA (BEAKER) (test code Negative Negative = 365) KETONES UA (BEAKER) (test code Negative Negative = 371) BILIRUBIN UA (BEAKER) (test Negative Negative code = 462) BLOOD UA (BEAKER) (test code = Small Negative A 461) NITRITE UA (BEAKER) (test code Negative Negative = 465) LEUKOCYTE ESTERASE UA (BEAKER) Negative Negative (test code = 466) UROBILINOGEN UA (BEAKER) (test 4.0 mg/dL 0.2-1.0 H code = 463) BACTERIA (BEAKER) (test code = None Seen 517) RBC UA-MANUAL (BEAKER) (test <5 /HPF code = 1659) WBC UA-MANUAL (BEAKER) (test None Seen /HPF code = 1661) SQUAMOUS EPITHELIAL MANUAL <5 /HPF (BEAKER) (test code = 1663) SOURCE(BEAKER) (test code = 2795) [id number] 22:10:10 Test Item Value Reference Range Interpretation Comments PARTIAL THROMBOPLASTIN 27.6 seconds 23.0-35.0 Final Information TIME (BEAKER) (test (Auto Ou tput) code = 760) HEMOGLOBIN [id number] 22:05:08 Test Item Value Reference Range Interpretation Comments HEMOGLOBIN A1C (BEAKER) (test code = 4.5 % 4.3-6.1 368) Assistant Hvac Mechanic ID - ErinyCBC W/PLT COUNT & AUTO [id number] 22:02:15 Test Item Value Reference Range Interpretation Comments WHITE BLOOD CELL COUNT (BEAKER) 22.3 K/ L 4.0-10.0 H (test code = 775) RED BLOOD CELL COUNT (BEAKER) 2.77 M/ L 4.20-5.80 L (test code = 761) HEMOGLOBIN (BEAKER) (test code = 9.5 GM/DL 13.0-16.8 L 410) HEMATOCRIT (BEAKER) (test code = 29.2 % 36.0-50.0 L 411) MEAN CORPUSCULAR VOLUME (BEAKER) 105.4 fL 82.0-99.0 H (test code = 753) MEAN CORPUSCULAR HEMOGLOBIN 34.3 pg 27.0-33.0 H (BEAKER) (test code = 751) MEAN CORPUSCULAR HEMOGLOBIN CONC 32.5 GM/DL 32.0-36.0 (BEAKER) (test code = 752) RED CELL DISTRIBUTION WIDTH 16.4 % 12.0-15.0 H (BEAKER) (test code = 412) PLATELET COUNT (BEAKER) (test 257 K/CU MM 150-430 code = 756) MEAN PLATELET VOLUME (BEAKER) 9.5 fL 6.0-11.5 (test code = 754) NUCLEATED RED BLOOD CELLS 0 /100 WBC 0-0 (BEAKER) (test code = 413) NEUTROPHILS RELATIVE PERCENT 88 % (BEAKER) (test code = 429) LYMPHOCYTES RELATIVE PERCENT 4 % (BEAKER) (test code = 430) MONOCYTES RELATIVE PERCENT 5 % (BEAKER) (test code = 431) EOSINOPHILS RELATIVE PERCENT 0 % (BEAKER) (test code = 432) BASOPHILS RELATIVE PERCENT 0 % (BEAKER) (test code = 437) NEUTROPHILS ABSOLUTE COUNT 19.70 K/ L 1.80-8.00 H (BEAKER) (test code = 670) LYMPHOCYTES ABSOLUTE COUNT 0.98 K/ L 1.48-4.50 L (BEAKER) (test code = 414) MONOCYTES ABSOLUTE COUNT (BEAKER) 1.12 K/ L 0.00-1.30 (test code = 415) EOSINOPHILS ABSOLUTE COUNT 0.02 K/ L 0.00-0.50 (BEAKER) (test code = 416) BASOPHILS ABSOLUTE COUNT (BEAKER) 0.04 K/ L 0.00-0.20 (test code = 417) IMMATURE GRANULOCYTES-RELATIVE 2 % 0-0 H PERCENT (BEAKER) (test code = 1353)
[2022-05-09] MEDS ORDERED: ONDANSETRON 4 MG/2 ML VIAL ONE (19:17)
[2022-05-09] MEDS ORDERED: NA CHLORIDE 0.9% 1,000 ML ONE (19:17)
[2022-05-09 19:43] LABS: Absolute Lymphocytes (CBC) 0.5 K/uL (0.7-4.9); Hematocrit 31.2 % (39.6-49.0); MCV 95.4 fL (80-100); MPV 7.3 fL (7.6-11.3); RBC Red Blood Cell Count 3.27 M/uL (4.33-5.43)
[2022-05-09 20:01] LABS: Albumin 2.6 g/dL (3.4-5.0); Bilirubin Total 0.2 mg/dL (0.2-1.0); Protein, Total 5.8 g/dL (6.4-8.2)
--- NOTE | 2022-05-09 20:02 | RAD REPORT ---
EXAM DESCRIPTION: RAD - Chest Single View - 05/09/2022 7:34 pm CLINICAL HISTORY: MALAISE, weakness, hypertension, prior bypass surgery COMPARISON: Portable 12/26/2021 TECHNIQUE: AP portable chest image was obtained 05/09/2022 7:34 pm . FINDINGS: Lungs are clear. Heart and vasculature are normal. No measurable pleural effusion and no p neumothorax. No acute bony abnormality seen. No acute aortic findings suspected. IMPRESSION: No acute cardiopulmonary process. No significant change from comparison study.
--- NOTE | 2022-05-09 21:24 | EDPHYS ---
Physician Documentation [facility] Name: Kavin Armijo Age: 67 yrs Sex: Male : 1955 Arrival Date: 05/09/2022 Time: 18:36 Bed 15 Private MD: ED Physician Gm Rush HPI: 05/09 21:21 This 67 yrs old Male presents to ER via EMS with complaints of Low Blood jl9 Sugar and malaise.. 21:21 Onset: The symptoms/episode began/occurred gradually, today. Associated signs and jl9 symptoms: Pertinent negatives: decreased urine output, polydipsia, polyphagia. Current symptoms: In the emergency department the patient's symptoms have improved, markedly. The patient has experienced a previous episode. Historical: - Allergies: 18:40 Phenergan; bp - Home Meds: 18:40 aspirin 81 mg Oral tab [Active]; atorvastatin Oral [Active]; Clonidine Oral [Active]; bp finasteride Oral [Active]; gabapentin Oral [Active]; sertraline Oral [Active]; tamsulosin Oral [Active]; - PMHx: 18:40 Bipolar disorder; clot L leg; Hypertensive disorder; kidney failure; PAD; bp - PSHx: 18:40 gall stones removed; triple bypass; Amputated below knee; bp - Immunization history:: Adult Immunizations up to date. - Social history:: Smoking status: unknown. ROS: 21:21 Constitutional: Negative for fever, chills, and weight loss, Eyes: Negative for injury, jl9 pain, redness, and discharge, ENT: Negative for injury, pain, and discharge, Neck: Negative for injury, pain, and swelling, Cardiovascular: Negative for chest pain, palpitations, and edema, Respiratory: Negative for shortness of breath, cough, wheezing, and pleuritic chest pain, Abdomen/GI: Negative for abdominal pain, nausea, vomiting, diarrhea, and constipation, Back: Negative for injury and pain, MS/Extremity: Negative for injury and deformity, Skin: Negative for injury, rash, and discoloration. 21:21 Psych: Negative for depression, anxiety, suicide ideation, homicidal ideation, and hallucinations, Allergy/Immunology: Negative for hives, rash, and allergies, Endocrine: Negative for neck swelling, polydipsia, polyuria, polyphagia, and marked weight changes, Hematologic/Lymphatic: Negative for swollen nodes, abnormal bleeding, and unusual bruising. 21:21 Neuro: Positive for weakness. Exam: 21:22 Constitutional: This is a well developed, well nourished patient who is awake, alert, jl9 and in no acute distress. Head/Face: Normocephalic, atraumatic. Eyes: Pupils equal round and reactive to light, extra-ocular motions intact. Lids and lashes normal. Conjunctiva and sclera are non-icteric and not injected. Cornea within normal limits. Periorbital areas with no swelling, redness, or edema. ENT: Mucous membranes moist. Neck: Trachea midline, no thyromegaly or masses palpated, and no cervical lymphadenopathy. Supple, full range of motion without nuchal rigidity, or vertebral point tenderness. No Meningismus. Chest/axilla: Normal chest wall appearance and motion. Nontender with no deformity. No lesions are appreciated. Cardiovascular: Regular rate and rhythm with a normal S1 and S2. No gallops, murmurs, or rubs. Normal PMI, no JVD. No pulse deficits. Respiratory: Lungs have equal breath sounds bilaterally, clear to auscultation and percussion. No rales, rhonchi or wheezes noted. No increased work of breathing, no retractions or nasal flaring. Abdomen/GI: Soft, non-tender, with normal bowel sounds. No distension or tympany. No guarding or rebound. No evidence of tenderness throughout. Back: No spinal tenderness. No costovertebral tenderness. Full range of motion. Skin: Warm, dry with normal turgor. Normal color with no rashes, no lesions, and no evidence of cellulitis. 21:22 MS/ Extremity: Pulses equal, no cyanosis. Neurovascular intact. Full, normal range of motion. Neuro: Awake and alert, GCS 15, oriented to person, place, time, and situation. Cranial nerves II-XII grossly intact. Motor strength 5/5 in all extremities. Sensory grossly intact. Cerebellar exam normal. Normal gait. Psych: Awake, alert, with orientation to person, place and time. Behavior, mood, and affect are within normal limits. 21:22 Musculoskeletal/extremity: Left BKA. Vital Signs: 18:37 BP 92 / 60; Pulse 75; Resp 20; Temp 98.9; Pulse Ox 98% ; bp 19:57 BP 104 / 65; Pulse 72; Resp 14; Pulse Ox 98% on R/A; 4 05/10 00:03 BP 99 / 60; Pulse 73; Resp 14; Pulse Ox 100% on R/A; 4 MDM: 05/09 18:37 Patient medically screened. [facility] 21:22 Differential diagnosis: DKA, hyperglycemia, hypoglycemic episode. Data reviewed: vital 9 signs, nurses notes, lab test result(s). 21:50 Counseling: I had a detailed discussion with the patient and/or guardian regarding: the jl9 need for further work-up and treatment in the hospital. 21:50 Physician consultation: ALYSHA Dueñas to see patient. Dr Parada.. [facility] 05/09 18:45 Order name: CBC with Diff; Complete Time: 20:00 [facility] 05/09 18:45 Order name: CMP; Complete Time: 20:05 [facility] 05/09 18:45 Order name: SARS-COV-2 RT PCR (Document "Date of Onset" if Symptomatic); Complete Time: [facility] 20:33 05/09 18:45 Order name: Lipase; Complete Time: 20:05 [facility] 05/09 21:48 Order name: Glucose, Ancillary Testing; Complete Time: 21:49 [facility] 05/09 22:39 Order name: Glucose, Ancillary Testing; Complete Time: 23:09 [facility] 05/09 23:14 Order name: Blood Culture Adult (2) [facility] 05/09 23:14 Order name: Lactate [facility] 05/09 23:14 Order name: Procalcitonin [facility] 05/09 23:37 Order name: Basic Metabolic Panel [facility] 05/09 23:37 Order name: Basic Metabolic Panel [facility] 05/09 23:37 Order name: CBC with Automated Diff [facility] 05/09 23:37 Order name: CBC with Automated Diff [facility] 05/09 23:38 Order name: Magnesium [facility] 05/09 18:45 Order name: IV Saline Lock; Complete Time: 19:42 [facility] 05/09 18:45 Order name: Labs collected and sent; Complete Time: 19:42 [facility] 05/09 18:45 Order name: Urine Dipstick-Ancillary (obtain specimen) [facility] 05/09 18:45 Order name: XRAY Chest (1 view); Complete Time: 20:05 [facility] 05/09 23:37 Order name: 60g Consistent Carbohydrate (ADA 1800/1999) EDMS 05/09 23:38 Order name: Phosphorus EDMS 05/09 23:38 Order name: Urine Cortisol Free 24hr EDMS Administered Medications: 19:41 Drug: Ondansetron 4 mg Route: IVP; Site: right forearm; ja4 19:42 Drug: NS 0.9% 1000 ml Route: IV; Rate: 1000 ml; Site: left forearm; ja4 Disposition: 05/10 21:58 Co-signature as Attending Physician, Gm Rush MD I agree with the assessment and kdr plan of care. Disposition Summary: 05/09/22 21:50 Hospitalization Ordered Hospitalization Status: Observation jl9 [facility]50[facility] jl9 Condition: Fair(05/09/22 21:50) jl9 Problem: new jl9 Symptoms: are unchanged jl9 Bed/Room Type: Standard 9 Provider: Jose De Paz(05/09/22 23:30) sb3 Room Assignment: [facility](05/09/22 23:49) Diagnosis - Other hypoglycemia jl9 - Hypoglycemia, unspecified jl9 Forms: - Medication Reconciliation Form jl9 - SBAR form jl9 Signatures: Dispatcher [employer] [facility] Ghislaine Wiley RN RN mw Rittger, Kevin, MD MD kdr Peltier, Brian, RN RN bp Brown, Sophia, PA PA sb3 Yang Vasquez jl9 Randall Morel RN RN ja4 Corrections: (The following items were deleted from the chart) 05/09 21:33 21:23 Home jl9 jl9 21:33 21:23 Stable jl9 jl9 21:33 21:23 Muscle weakness (generalized) jl9 jl9 21:51 21:23 Counseling: I had a detailed discussion with the patient and/or guardian jl9 regarding: lab results, radiology results, the need for outpatient follow up, to return to the emergency department if symptoms worsen or persist or if there are any questions or concerns that arise at home, jl9 23:15 21:50 Kevin Parada 9 jl9 23:30 23:15 Jose De Paz 9 sb3 23:49 21:50 jlShari mw
--- NOTE | 2022-05-09 21:24 | ER ---
Nurse's Notes [facility] Name: Kavin Armijo Age: 67 yrs Sex: Male : 1955 Arrival Date: 05/09/2022 Time: 18:36 Bed 15 Private MD: Diagnosis: Other hypoglycemia;Hypoglycemia, unspecified Presentation: 05/09 18:37 Chief complaint: EMS states: N/V/D AND GEN WKN x3 DAYS, HYPOGLYCEMIC AT HOME. bp Coronavirus screen: At this time, the client does not indicate any symptoms associated with coronavirus-19. Ebola Screen: No symptoms or risks identified at this time. Initial Sepsis Screen: Does the patient meet any 2 criteria? No. Patient's initial sepsis screen is negative. Does the patient have a suspected source of infection? No. Patient's initial sepsis screen is negative. Risk Assessment: Do you want to hurt yourself or someone else? Patient reports no desire to harm self or others. Onset of symptoms is unknown. Care prior to arrival: IV initiated. 22 GA, in the left forearm, Glucose check: 47. 18:37 Method Of Arrival: EMS: [facility] bp 18:37 Acuity: CHANNING 2 bp Triage Assessment: 18:40 General: Appears distressed, Behavior is calm, cooperative, appropriate for age. Pain: bp Complains of pain in buttocks. EENT: No deficits noted. Neuro: Reports weakness. Cardiovascular: No deficits noted. Respiratory: No deficits noted. GI: Reports diarrhea, nausea, vomiting. : No signs and/or symptoms were reported regarding the genitourinary system. Derm: No deficits noted. Musculoskeletal: No deficits noted. Historical: - Allergies: 18:40 Phenergan; bp - Home Meds: 18:40 aspirin 81 mg Oral tab [Active]; atorvastatin Oral [Active]; Clonidine Oral [Active]; bp finasteride Oral [Active]; gabapentin Oral [Active]; sertraline Oral [Active]; tamsulosin Oral [Active]; - PMHx: 18:40 Bipolar disorder; clot L leg; Hypertensive disorder; kidney failure; PAD; bp - PSHx: 18:40 gall stones removed; triple bypass; Amputated below knee; bp - Immunization history:: Adult Immunizations up to date. - Social history:: Smoking status: unknown. Screenin:41 Abuse screen: Denies threats or abuse. Denies injuries from another. Nutritional bp screening: No deficits noted. Tuberculosis screening: No symptoms or risk factors identified. Fall Risk None identified. Assessment: 18:41 General: SEE TRIAGE NOTE. bp 21:48 Reassessment: pt rcving D10 in water 500ml at 125 per hour per provider. [facility] 05/10 00:04 Reassessment: attempted report. nurse in room admitting another pt at this time. will [facility] call back. 00:49 Reassessment: report given to noemy. [facility] Vital Signs: 05/09 18:37 BP 92 / 60; Pulse 75; Resp 20; Temp 98.9; Pulse Ox 98% ; bp 19:57 BP 104 / 65; Pulse 72; Resp 14; Pulse Ox 98% on R/A; ja4 05/10 00:03 BP 99 / 60; Pulse 73; Resp 14; Pulse Ox 100% on R/A; [facility] ED Course: 05/09 18:36 Patient arrived in ED. bp 18:37 Yang Vasquez is PHCP. jl9 18:37 Gm Rush MD is Attending Physician. jl9 18:40 Triage completed. bp 18:41 Arm band placed on. bp 18:41 Patient has correct armband on for positive identification. Bed in low position. Call bp light in reach. Side rails up X2. 18:41 Maintain EMS IV. Dressing intact. Good blood return noted. Site clean \\T\\ dry. Gauge \\T\\ bp site: 20 GAUGE LEFT FA. 18:52 Shady Flores, RN is Primary Nurse. bp 19:35 XRAY Chest (1 view) In Process Unspecified. EDMS 19:42 SARS-COV-2 RT PCR (Document "Date of Onset" if Symptomatic) Sent. ja4 21:49 Kevin Parada is Hospitalizing Provider. jl9 23:15 Hospitalizing Provider role handed off by Kevin Parada jl9 23:15 Jose De Paz MD is Hospitalizing Provider. jl9 Administered Medications: 19:41 Drug: Ondansetron 4 mg Route: IVP; Site: right forearm; ja4 19:42 Drug: NS 0.9% 1000 ml Route: IV; Rate: 1000 ml; Site: left forearm; ja4 Medication: 18:41 VIS not applicable for this client. bp Outcome: 21:23 Discharge ordered by jl9 21:50 Decision to Hospitalize by Provider. jl9 05/10 00:55 Patient left the ED. ja4 Signatures: Dispatcher [employer] Shady Castillo, RN Yang Contreras jl9 Randall Morel RN RN [email or web address]
[2022-05-09] MEDS ORDERED: DEXTROSE 10%-WATER 500 ML IV ONE (21:47)
[2022-05-09 23:53] LABS: Phosphorus 3.4 mg/dL (2.5-4.9)
[2022-05-10 01:15] VITALS: BMI 22.7
[2022-05-10 04:02] LABS: Absolute Lymphocytes (CBC) 0.4 K/uL (0.7-4.9); Hematocrit 32.5 % (39.6-49.0); Lymphocytes % 4.1 % (15.3-44.8); MCV 96.2 fL (80-100); MPV 7.5 fL (7.6-11.3); RBC Red Blood Cell Count 3.38 M/uL (4.33-5.43)
[2022-05-10 04:12] LABS: Potassium 3.4 mmol/L (3.5-5.1)
[2022-05-10] MEDS ORDERED: NA CHLORIDE 0.9% 1,000 ML IV ONE (11:40)
--- NOTE | 2022-05-10 11:52 | P.HP ---
Certification for Inpatient Patient admitted to: Inpatient With expected LOS: >2 Midnights Practitioner: I am a practitioner with admitting privileges, knowledge of patient current condition, hospital course, and medical plan of care. Services: Services provided to patient in accordance with Admission requirements found in Title 42 Section 412.3 of the Code of Federal Regulations Patient History Date of Service: 05/10/22 Reason for admission: WEAKNESS, LOW GLUCOSE, NOT EATING. DIARRHEA FOR A FEW DAYS. History of Present Illness: MR. MENDEZ IS A PVD,HTN, CKD PATIENT WITH L BKA FOR PVD RECENTLY. HE COMES WITH WEAKENSS, HYPOGLYCEMIA PER ER PA. LATER THIS AM I FIND THAT HE ALSO HAS DIARRHEA THAT PA DID NOT MENTION. HE ALSO HAS FEVER AT HOME. HE DENIES ANY PAIN. Allergies chlorpromazine HCl [From Thorazine] Allergy (Severe, Verified 03/25/21 14:55) Anaphylaxis promethazine HCl [From Phenergan] Allergy (Severe, Verified 03/25/21 14:55) Anaphylaxis Home Medications: Aspirin [Ecotrin 81 MG] 81 mg PO DAILY 06/19/20 Mirtazapine 7.5 mg PO BID 06/19/20 Sertraline [Zoloft*] 100 mg PO BID 06/19/20 Finasteride [Proscar*] 5 mg PO DAILY 11/29/21 Bupropion HCl [Wellbutrin] 50 mg PO DAILY 12/02/21 Atorvastatin Calcium [Lipitor*] 10 mg PO DAILY 12/22/21 Gabapentin [Neurontin*] 100 mg PO BID 05/10/22 - Past Medical/Surgical History Has patient received pneumonia vaccine in the past: Yes Diabetic: No -: Obstructive sleep apnea -: Chronic renal disease, stage IV -: CAD with prior CABG x3 vessel -: Bipolar disorder -: Chronic pain-lower back -: Hypertension -: Hyperlipidemia -: Insomnia -: History of dvt right calf (knee fracture) -: Colon polyps -: GERD with ulcers -: Tobacco abuse -: CABG x3 vessel -: cholecystectomy -: triple bypass -: knee surgery Psychosocial/ Personal History: Patient is - Family History Mother -: Heart disease Notes: polycythemia, [place] Father -: Other (see notes) Notes: pancreatic cancer - Social History Smoking Status: Current some day smoker Alcohol use: No CD- Drugs: No Caffeine use: No Review of Systems 10-point ROS is otherwise unremarkable General: Weakness Physical Examination - Vital Signs Temperature: 98.3 F Blood Pressure: 100/55 Pulse: 75 Respirations: 14 Pulse Ox (%): 94 - Physical Exam General: Oriented x3, Cachectic, Mild distress, Other (DRY SKIN AND MM. ) HEENT: Atraumatic, PERRLA, Mucous membr. moist/pink, EOMI, Sclerae nonicteric Neck: Supple, 2+ carotid pulse no bruit, No LAD, Without JVD or thyroid abnormality Respiratory: Clear to auscultation bilaterally, Normal air movement Cardiovascular: Regular rate/rhythm, Normal S1 S2 Gastrointestinal: Normal bowel sounds, No tenderness Musculoskeletal: No tenderness, Other (L BKA) Integumentary: No rashes Neurological: Normal gait, Normal speech, Normal strength at 5/5 x4 extr, Normal tone, Normal affect Lymphatics: No axilla or inguinal lymphadenopathy - Studies Laboratory Data (last 24 hrs) 05/09/22 19:30: Phosphorus 3.4, Magnesium 2.0 05/09/22 19:30: Sodium 140, Potassium 4.0, BUN 38 H, Creatinine 3.27 H, Glucose 78, Total Bilirubin 0.2, AST 138 H, ALT 40, Alkaline Phosphatase 132 H, Lipase 61 L 05/09/22 19:30: WBC 11.40 H, Hgb 10.4 L, Hct 31.2 L, Plt Count 225 Assessment and Plan - Problems (Diagnosis) (1) Hypoglycemia Current Visit: Yes Status: Acute Plan: D5NS BOLUS AND IV AFTER THAT. DR JOSE RAFAEL SAUER WITH CHANGES. CORTISOL HE COULD HAVE THIS FROM BEING SEPTIC. (2) Diarrhea Current Visit: Yes Status: Acute Plan: CHECK C DIFF HE HAS BEEN IN HOSPITAL OVER LAST 3 MONTHS FOR 2 MONTHS AND RECEIVED ANTIBIOTICS FOR MANY WEEKS. Qualifiers: Diarrhea type: presumed infectious Qualified Code(s): R19.7 - Diarrhea, unspecified (3) Acute on chronic renal failure Current Visit: Yes Status: Acute Plan: IV FLUIDS ABOVE. DAILY LAB. (4) Bipolar depression Current Visit: Yes Status: Chronic Plan: CONT MEDS. (5) History of left below knee amputation Current Visit: Yes Status: Acute (6) PVD (peripheral vascular disease) Current Visit: No Status: Chronic Plan: L BKA THIS IS FROM SMOKING. PROGNOSIS IS OVERALL POOR. - Advance Directives Does patient have a Living Will: No Does patient have a Durable POA for Healthcare: No
[2022-05-10] MEDS ORDERED: NA CHLORIDE 0.9% 1,000 ML IV SCH (12:00)
[2022-05-10] MEDS ORDERED: D5 0.9 NS 1,000 ML IV ONE (12:00)
[2022-05-10] MEDS ORDERED: D5 0.9 NS 1,000 ML IV SCH ×2 (12:00→13:00)
[2022-05-10] MEDS: POTASSIUM CL SA 10 MEQ TAB PO SCH (13:34)
--- NOTE | 2022-05-10 13:39 | CON ---
Date of Consultation: 05/10/2022 Reason For Consultation: Elevated BUN and creatinine, fluid management. History Of Present Illness: This is a pleasant 67-year-old gentleman, well known to me from the office and from previous admission with significant past medical history of hypertension, hyperlipidemia, chronic kidney disease stage 4, baseline creatinine on the 3 as of March 2021, hyperlipidemia, CAD complicated with congestive heart failure status post CABG, obstructive sleep apnea, the patient came to the hospital complaining from nausea, vomiting, and diarrhea for the last 3 days. Found to have elevation in BUN and creatinine. For that reason, we have been consulted. Upon arrival to the hospital, hemoglobin 10.7 and creatinine was 3.2 with GFR of 20. For that reason, has been admitted and we have been consulted. Reviewing the record back in December 2021, creatinine 2.6, GFR 24. The patient denied taking any nonsteroidal. No IV contrast. The patient not started on hydration. Past Medical History: Includes; 1. Obstructive sleep apnea. 2. Hypertension. 3. CAD, status post CABG complicated with congestive heart failure. 4. Chronic kidney disease, stage 4. Baseline creatinine 2.6, GFR of 24 as of December 2021. Past Surgical History: Includes; 1. CABG. 2. Cholecystectomy. Allergies: TO PHENERGAN. Family History: Positive for pancreatic cancer, hypertension, polycythemia vera. Social History: Active smoker. Denied alcohol. Denied drugs abuse. Home Medications: Include; 1. Aspirin. 2. Mirtazapine. 3. Zoloft. 4. Finasteride. 5. Bupropion. 6. Atorvastatin. 7. Gabapentin. Review of Systems: Head and Neck: No red eye. No ear pain. GI: Has diarrhea. Has nausea, vomiting. : No polyuria. No dysuria. No hematuria. Ramp Agent: Not applicable. Respiratory: No shortness of breath. Cardiovascular: No chest pain. Endocrine: No polydipsia. Skin: No rash. Neuro: Generalized weakness. Musculoskeletal: Generalized fatigue. Physical Examination: Vital Signs: When I saw the patient; blood pressure 100/55, pulse of 75, afebrile. Chest: Clear to auscultation. Heart: S1, S2. Regular. Abdomen: Soft. Mild tenderness. No guarding or rebound. Extremities: No edema. Neuro: Alert. No focality. Laboratory Data: Back in December; creatinine 2.6, GFR 24. Upon admission; sodium 140, potassium 4, bicarb 22, BUN 38, creatinine 3.2, GFR of 20. Latest lab data; sodium 139, potassium 3.4, bicarb 23, BUN 37, creatinine 3.3, GFR 21, calcium 8.9. Uric acid still pending. Urinalysis not done. Current Medications: The patient on include; 1. Aspirin. 2. Lovenox. 3. Atorvastatin. 4. Gabapentin. 5. Pepcid. 6. Finasteride. 7. Bupropion. 8. KCl. Assessment And Plan: 1. Acute kidney injury on advanced chronic kidney disease secondary to prerenal, dehydration, secondary to GI loss secondary to gastroenteritis. I am going to bolus the patient with normal saline of 1 L. Then, we will start hydration. Discussed with Dr. De Paz. Given the hypoglycemia, we will start D5 half and we will follow up. 2. Hypokalemia. We will supplement. We will check his magnesium. 3. Gastroenteritis as by primary. 4. Chronic kidney disease, stage 4 secondary to hypertension nephrosclerosis, cardiorenal, currently on the dry side with acute kidney injury as above. 5. Secondary hyperparathyroidism, stable. Time spent examining the patient [id number], reviewing the data lab and radiology, placing orders, discussing with the patient, explaining risks, benefits, alternatives, discussing with the staff member including nursing discussing with the hospitalist more than 65 minutes. DONN Voice ID: [id number] Report ID: [id number] KERI
[2022-05-10 14:42] LABS: UR PROTEIN 23.6 mg/dL (<11.9); Urine Protein/Creatinine Ratio 0.48 ratio (<0.15)
[2022-05-10] MEDS: ENOXAPARIN 30 MG/0.3 ML SQ SCH (16:05)
[2022-05-10 16:33] LABS: Phosphorus 2.7 mg/dL (2.5-4.9)
[2022-05-10 17:22] LABS: Urine Bilirubin Negative (Negative); Urine Blood Negative (Negative); Urine Clarity Clear (Clear); Urine Color Yellow (Yellow); Urine Glucose Negative (Negative); Urine Protein Negative (Negative); Urine Urobilinogen 0.2 mg/dL (0.2-1.0)
[2022-05-10 17:40] LABS: Urine Bacteria <20 /HPF (<20); Urine RBC <5 /HPF (None Seen)
[2022-05-10] MEDS: SERTRALINE HCL 100 MG TAB PO SCH (20:56)
[2022-05-10] MEDS: GABAPENTIN 100 MG CAP PO SCH (20:56)
[2022-05-10] MEDS: MIRTAZAPINE 15 MG TAB PO SCH (20:56)
[2022-05-11 06:30] LABS: Absolute Lymphocytes (CBC) 0.2 K/uL (0.7-4.9); Lymphocytes % 1.2 % (15.3-44.8); MCV 95.2 fL (80-100); MPV 7.7 fL (7.6-11.3); RBC Red Blood Cell Count 3.57 M/uL (4.33-5.43)
[2022-05-11 06:40] LABS: Albumin 2.1 g/dL (3.4-5.0); Phosphorus 2.5 mg/dL (2.5-4.9)
[2022-05-11 08:29] LABS: Platelet Estimate ADEQ
[2022-05-11 08:31] LABS: Blood Morphology Comment NOT SEEN (NOT SEEN)
[2022-05-11] MEDS: HOME MED 1 EA UNK (Bupropion Hcl [Wellbutrin] 75 MG Tablet) PO SCH (09:00)
[2022-05-11] MEDS: POTASSIUM CL SA 10 MEQ TAB PO SCH ×2 (09:44→21:59)
[2022-05-11] MEDS: ATORVASTATIN 10 MG TAB PO SCH (09:45)
[2022-05-11] MEDS: MIRTAZAPINE 15 MG TAB PO SCH ×2 (09:45→21:59)
[2022-05-11] MEDS: ASPIRIN EC 81 MG TAB PO SCH (09:45)
[2022-05-11] MEDS: FINASTERIDE 5 MG TAB PO SCH (09:45)
[2022-05-11] MEDS: SERTRALINE HCL 100 MG TAB PO SCH (09:45)
[2022-05-11] MEDS: GABAPENTIN 100 MG CAP PO SCH (09:45)
[2022-05-11] MEDS: FAMOTIDINE 20 MG TAB PO SCH (09:45)
[2022-05-11] MEDS ORDERED: VANCOMYCIN ORAL SOLN 250 MG/5 ML OSYR PO SCH ×2 (12:00)
[2022-05-11] MEDS ORDERED: NA CHLORIDE 0.9% 1,000 ML IV ONE (13:00)
--- NOTE | 2022-05-11 13:57 | P.PN ---
Subjective Date of Service: 05/11/22 Chief Complaint: WEAKNESS, LOW GLUCOSE, NOT EATING. DIARRHEA FOR A FEW DAYS. Subjective: No new changes HE IS MORE LETHARGIC AND SOMEWHAT CONFUSED. STILL HAS DIARRHEA. Review of Systems 10-point ROS is otherwise unremarkable General: Weakness, Malaise Physical Examination - Vital Signs Temperature: 98.7 F Blood Pressure: 111/57 Pulse: 97 Respirations: 16 Pulse Ox (%): 96 - Physical Exam General: Oriented x2, Mild distress, Confused, Other (DEHYDRATION) HEENT: Atraumatic, PERRLA, EOMI Neck: Supple, JVD not distended Respiratory: Clear to auscultation bilaterally, Normal air movement Cardiovascular: Regular rate/rhythm, Normal S1 S2 Gastrointestinal: Normal bowel sounds, No tenderness Musculoskeletal: No tenderness Integumentary: No rashes Neurological: Normal speech, Normal tone, Normal affect Lymphatics: No axilla or inguinal lymphadenopathy - Studies Laboratory Data (last 24 hrs) 05/10/22 14:16: Phosphorus 2.7 05/10/22 14:16: Magnesium 2.0 Microbiology Data (last 24 hrs): 05/10/22 03:38 Blood - Blood Anaerobic Blood Culture - Final 05/10/22 03:27 Blood - Blood Anaerobic Blood Culture - Final Medications List Reviewed: Yes Assessment And Plan - Current Problems (Diagnosis) (1) Hypoglycemia Current Visit: Yes Status: Acute Plan: D5NS BOLUS AND IV AFTER THAT. DR JOSE RAFAEL SAUER WITH CHANGES. CORTISOL HE COULD HAVE THIS FROM BEING SEPTIC. CHANGE IV TO RL MAY HELP MORE WITH SEPSIS (2) Diarrhea Current Visit: Yes Status: Acute Plan: CHECK C DIFF HE HAS BEEN IN HOSPITAL OVER LAST 3 MONTHS FOR 2 MONTHS AND RECEIVED ANTIBIOTICS FOR MANY WEEKS. I STARTED HIM ON VANCOMYCIN ORALLY BEFORE C DIFF TOXIN REPORT BECASUE OF HIGH SUSPICION AND WORSENED CLINICAL CONDITION. Qualifiers: Diarrhea type: presumed infectious Qualified Code(s): R19.7 - Diarrhea, unspecified (3) Acute on chronic renal failure Current Visit: Yes Status: Acute Plan: IV FLUIDS ABOVE. DAILY LAB. IV FLUIDS. KCL REPLACE (4) Bipolar depression Current Visit: Yes Status: Chronic Plan: CONT MEDS. (5) History of left below knee amputation Current Visit: Yes Status: Acute (6) PVD (peripheral vascular disease) Current Visit: No Status: Chronic Plan: L BKA THIS IS FROM SMOKING. PROGNOSIS IS OVERALL POOR. (7) Hypercalcemia Current Visit: Yes Status: Acute Plan: TALKED TO DR. MANTILLA CORRECTED CALCIUM IS HIGH. CONT IV FLUIDS. PTH LEVEL PENDING.
[2022-05-11] MEDS: KCL 20 MEQ/100 mL IVPB 20 MEQ/100 ML BAG IV SCH ×2 (14:22→16:16)
--- NOTE | 2022-05-11 14:25 | PN ---
Date of Progress Note: 05/11/2022 Subjective: The patient was admitted with acute kidney injury secondary to gastroenteritis, GI loss, dehydration. The patient was started on IV hydration. Kidney function started being improving. Physical Examination: Vital Signs: When I saw the patient; blood pressure of 129/62, pulse of 93, afebrile. Chest: Clear to auscultation. Heart: S1, S2. Systolic murmur. Abdomen: Soft, nontender. Extremities: No edema. Neuro: The patient is more sleepy today. Laboratory Data: Sodium 144, potassium 3, bicarb 20, BUN 41, creatinine down to 2.8, calcium 9.2, phosphorus 2.5, albumin 2.1. Corrected calcium is 11. Current Medications: The patient on include; 1. Aspirin. 2. Vancomycin oral 125. 3. Lovenox. 4. Atorvastatin. 5. Gabapentin. 6. Zoloft. 7. Pepcid. 8. D5 half. Assessment And Plan: 1. Acute kidney injury secondary to prerenal, dehydration, looked to me still on the dry side. I am going to continue the patient on aggressive hydration. We will bolus the patient with another liter of normal saline and we will follow up. 2. Hypokalemia. We will supplement. 3. Hypercalcemia, possible secondary to immobilization. I am going to go ahead and send for vitamin D and PTH and as I mentioned, we will continue aggressive hydration on the patient. Reviewing the record for the patient back in December, his PTH 136. At that time, his creatinine is 2.6. 4. Gastroenteritis, possible Clostridium difficile. Continue current antibiotic. We will increase vancomycin dose to therapeutic. Time spent examining the patient [id number], reviewing the data lab and radiology, placing orders, discussing with the patient, explaining risks, benefits, alternatives, discussing with the staff member including nursing discussing with the hospitalist more than 35 minutes. DONN Voice ID: [id number] Report ID: [id number] KERI
[2022-05-11] MEDS: Ringers Lactate 1,000 ML IV SCH (14:42)
[2022-05-11 16:42] LABS: Potassium 2.8 mmol/L (3.5-5.1)
--- NOTE | 2022-05-11 16:50 | RAD REPORT ---
EXAM DESCRIPTION: CTAbdomen Pelvis Wo Contrast - 05/11/2022 4:38 pm CLINICAL HISTORY: colitis COMPARISON: [facility] Protocol dated 06/27/2021; Abdomen Pelvis Wo Contrast dated 06/28/2019; [facility] Pr otocol dated 06/14/2019; Abdomen Pelvis Wo Contrast dated 11/11/2018 TECHNIQUE: CT of the abdomen and pelvis was performed. All CT scans are performed using dose optimization technique as appropriate and may include automated exposure control or mA/KV adjustment according to patient size. FINDINGS: Lower chest: Small pleural effusions. Multi-vessel coronary artery disease. Liver: No acute abnormality or suspicious lesions. Biliary: Cholecystectomy Stomach: No significant focal abnormality. Duodenum: No significant focal abnormality. Pancreas: No significant abnormality. Spleen: No significant abnormality. Adrenal: No suspicious lesions. Kidney/ureter: No hydronephrosis. Indeterminate renal lesions are unchanged since 06/27/2021. Stones versus renal vascular calcifications bilaterally. Retroperitoneum: No retroperitoneal adenopathy. Vascular: No aneurysm. Abdominal aortic ectasia. Bowel: Severe diffuse colonic wall thickening.. Peritoneum: Ascites is present. Bladder: Grossly unremarkable. Reproductive: No adnexal masses. Bones: No acute fracture. Multilevel degenerative changes are present in the spine. Sternotomy Other: n/a IMPRESSION: Severe colonic wall thickening is consistent with a pancolitis, possibly Clostridium dif ficile versus other non specific infectious or inflammatory etiologies. No bowel obstruction. Small v olume of ascites and small pleural effusions.
[2022-05-11] MEDS: VANCOMYCIN ORAL SOLN 250 MG/5 ML OSYR PO SCH (17:25)
[2022-05-11] MEDS: ENOXAPARIN 30 MG/0.3 ML SQ SCH (17:25)
[2022-05-12] MEDS: KCL 20 MEQ/100 mL IVPB 20 MEQ/100 ML BAG IV SCH ×2 (01:37→04:29)
[2022-05-12] MEDS: VANCOMYCIN ORAL SOLN 250 MG/5 ML OSYR PO SCH ×4 (01:37→17:15)
[2022-05-12] MEDS: Ringers Lactate 1,000 ML IV SCH ×4 (01:41→15:18)
[2022-05-12 08:50] LABS: Absolute Lymphocytes (CBC) 0.4 K/uL (0.7-4.9); Hematocrit 37.2 % (39.6-49.0); MCV 98.2 fL (80-100); MPV 7.8 fL (7.6-11.3); RBC Red Blood Cell Count 3.78 M/uL (4.33-5.43)
[2022-05-12] MEDS: HOME MED 1 EA UNK (Bupropion Hcl [Wellbutrin] 75 MG Tablet) PO SCH (09:00)
[2022-05-12 09:06] LABS: Albumin 1.8 g/dL (3.4-5.0); Magnesium 1.9 mg/dL (1.8-2.4); Phosphorus 2.4 mg/dL (2.5-4.9); Potassium 3.2 mmol/L (3.5-5.1)
[2022-05-12] MEDS: MIRTAZAPINE 15 MG TAB PO SCH ×2 (09:38→20:16)
[2022-05-12] MEDS: POTASSIUM CL SA 10 MEQ TAB PO SCH (09:38)
[2022-05-12] MEDS: SERTRALINE HCL 100 MG TAB PO SCH (09:38)
[2022-05-12] MEDS: ATORVASTATIN 10 MG TAB PO SCH (09:38)
[2022-05-12] MEDS: FAMOTIDINE 20 MG TAB PO SCH (09:38)
[2022-05-12] MEDS: FINASTERIDE 5 MG TAB PO SCH (09:39)
[2022-05-12] MEDS: ASPIRIN EC 81 MG TAB PO SCH (09:39)
[2022-05-12 10:54] LABS: Blood Morphology Comment NOT SEEN (NOT SEEN); Dohle Bodies PRESENT; Platelet Estimate ADEQ
[2022-05-12 14:05] LABS: C.diff Antigen/Toxin Ag pos : Tox pos (NEG : NEG)
[2022-05-12] MEDS ORDERED: POTASSIUM CL 40 MEQ in NA CHLORIDE 0.9% 500 ML IV SCH (15:00)
[2022-05-12] MEDS: ENOXAPARIN 30 MG/0.3 ML SQ SCH (16:13)
[2022-05-12] MEDS: SODIUM BICARB 325 MG TAB PO SCH (20:16)
--- NOTE | 2022-05-12 20:53 | P.PN ---
Subjective Date of Service: 05/12/22 Chief Complaint: WEAKNESS, LOW GLUCOSE, NOT EATING. DIARRHEA FOR A FEW DAYS. Subjective: No C/O voiced HE IS STILL WEAK HE SAYS HE FEELS BETTER TODAY. Review of Systems 10-point ROS is otherwise unremarkable General: Weakness Physical Examination - Vital Signs Temperature: 96.4 F Blood Pressure: 143/77 Pulse: 72 Respirations: 18 Pulse Ox (%): 94 - Physical Exam General: Oriented x2, Mild distress, Other (WEAK, DEHYDRATED.) HEENT: Atraumatic, PERRLA, EOMI Neck: Supple, JVD not distended Respiratory: Clear to auscultation bilaterally, Normal air movement Cardiovascular: Regular rate/rhythm, Normal S1 S2 Gastrointestinal: Normal bowel sounds, No tenderness Musculoskeletal: No tenderness Integumentary: No rashes Neurological: Normal speech, Normal tone, Normal affect Lymphatics: No axilla or inguinal lymphadenopathy - Studies Medications List Reviewed: Yes Assessment And Plan - Current Problems (Diagnosis) (1) Hypoglycemia Current Visit: Yes Status: Acute Plan: D5NS BOLUS AND IV AFTER THAT. DR JOSE RAFAEL SAUER WITH CHANGES. CORTISOL HE COULD HAVE THIS FROM BEING SEPTIC. CHANGE IV TO RL MAY HELP MORE WITH SEPSIS (2) Diarrhea Current Visit: Yes Status: Acute Plan: CHECK C DIFF HE HAS BEEN IN HOSPITAL OVER LAST 3 MONTHS FOR 2 MONTHS AND RECEIVED ANTIBIOTICS FOR MANY WEEKS. I STARTED HIM ON VANCOMYCIN ORALLY BEFORE C DIFF TOXIN REPORT BECASUE OF HIGH SUSPICION AND WORSENED CLINICAL CONDITION. I HAD CHARGE NURSE CALLED WHY REPORT IS NOT BACK YET I HAVE HIGH SUSPICION OF C DIFF WITH HISTORY AND TYPE OF STOOL. I WILL ADD XIFAXAN WBC IS HIGHER EVEN AFTER VANCOMYCIN. Qualifiers: Diarrhea type: presumed infectious Qualified Code(s): R19.7 - Diarrhea, unspecified (3) Acute on chronic renal failure Current Visit: Yes Status: Acute Plan: IV FLUIDS ABOVE. DAILY LAB. IV FLUIDS. KCL REPLACE (4) Bipolar depression Current Visit: Yes Status: Chronic Plan: CONT MEDS. (5) History of left below knee amputation Current Visit: Yes Status: Acute (6) PVD (peripheral vascular disease) Current Visit: No Status: Chronic Plan: L BKA THIS IS FROM SMOKING. PROGNOSIS IS OVERALL POOR. (7) Hypercalcemia Current Visit: Yes Status: Acute Plan: TALKED TO DR. MANTILLA CORRECTED CALCIUM IS HIGH. CONT IV FLUIDS. PTH LEVEL PENDING.
[2022-05-12] MEDS ORDERED: Rifaximin 550 MG Tab PO SCH (21:00)
--- NOTE | 2022-05-12 22:14 | PN ---
Date of Progress Note: 05/12/2022 Chief Complaint: Acute kidney injury on advanced chronic kidney disease. History Of Present Illness: Patient was found to have diarrhea and C diff is positive. Patient has decreased p.o. intake. He was started on IV fluids for hydration. The patient has nonoliguric urine output. Patient was found to have metabolic acidosis and non-anion gap secondary to diarrhea. Sodi um bicarbonate tablets were started today. The patient is on lactated Ringer's at 75 cc/hour. Laboratory Work: Blood work shows sodium 144, potassium 3.0, bicarbonate 20, BUN 41, creatinine 2.8, calcium 9.2, phosphorus 2.5, albumin 2.5. Today, blood work showed sodium 146, potassium 3.2, chloride 122, carbon dioxide total 17, BUN 47, cr eatinine 3.06, glucose 106, phosphorus 2.4, albumin 1.8, calcium 8.8, corrected calcium is 10.5. Impression And Plan: 1.Acute on chronic kidney disease, volume depletion, and hypercalcemia. The patient has severe hypo albuminemia. Workup was initiated to rule out monoclonal gammopathy of unknown significance. The amee lezama was found to have vitamin D deficiency, 25-hydroxy vitamin D elevated at 23.4. Intact PTH is w ithin normal limits and the results from May 12, showed intact PTH of 45.8. 2.Patient has severe diarrhea and decreased p.o. intake. Plan is to continue p.o. hydration. 3.Borderline hypophosphatemia. Patient will have potassium phosphate replacement. 4.Hypokalemia. Continue treatment with potassium replacement. EB/MODL Voice ID: [id number] Report ID: [id number]
[2022-05-13] MEDS: VANCOMYCIN ORAL SOLN 250 MG/5 ML OSYR PO SCH ×5 (00:14→23:51)
[2022-05-13] MEDS: Ringers Lactate 1,000 ML IV SCH (06:00)
[2022-05-13 06:50] LABS: Absolute Lymphocytes (CBC) 0.7 K/uL (0.7-4.9); Albumin 1.7 g/dL (3.4-5.0); Hematocrit 37.5 % (39.6-49.0); Lymphocytes % 4.8 % (15.3-44.8); MCV 97.9 fL (80-100); MPV 8.4 fL (7.6-11.3); Phosphorus 3.1 mg/dL (2.5-4.9); Potassium 3.7 mmol/L (3.5-5.1); RBC Red Blood Cell Count 3.83 M/uL (4.33-5.43)
[2022-05-13] MEDS: ATORVASTATIN 10 MG TAB PO SCH (08:38)
[2022-05-13] MEDS: MIRTAZAPINE 15 MG TAB PO SCH ×2 (08:38→21:01)
[2022-05-13] MEDS: SERTRALINE HCL 100 MG TAB PO SCH (08:39)
[2022-05-13] MEDS: ASPIRIN EC 81 MG TAB PO SCH (08:39)
[2022-05-13] MEDS: FAMOTIDINE 20 MG TAB PO SCH (08:39)
[2022-05-13] MEDS: FINASTERIDE 5 MG TAB PO SCH (08:39)
[2022-05-13] MEDS: HOME MED 1 EA UNK (Bupropion Hcl [Wellbutrin] 75 MG Tablet) PO SCH (08:40)
[2022-05-13] MEDS ORDERED: VITAMIN D 5,000 UNIT CAP PO SCH (09:00)
[2022-05-13] MEDS ORDERED: POTASS/SODIUM PHOSPHATE 1 PKT POWD.PACK PO SCH (09:00)
[2022-05-13] MEDS ORDERED: NA CHLORIDE 0.9% 1,000 ML IV ONE (10:22)
[2022-05-13] MEDS: SODIUM BICARB 325 MG TAB PO SCH ×2 (10:23→21:00)
[2022-05-13] MEDS ORDERED: NA BICARB IV SCH (11:00)
[2022-05-13] MEDS ORDERED: NACHLORIDE 0.45% IV SCH (11:00)
[2022-05-13 11:42] LABS: Arterial Blood Carboxyhemoglob 0.7 % (0-1.5); Blood Gas Oxyhemoglobin 93.5 % (94-97); Blood O2 Saturation 95.7 % (92-98.5)
--- NOTE | 2022-05-13 11:44 | PN ---
Date of Progress Note: 05/13/2022 Subjective: The patient was admitted with gastroenteritis, questionable of C diff. The patient had acute kidney injury, worsening over the night with severe acidosis. The patient still has significant diarrhea. Physical Examination: Vital Signs: Blood pressure 139/72, pulse of 71, afebrile. The patient had good urine output. Chest: Clear to auscultation. Heart: S1, S2. Systolic murmur. Abdomen: Soft, nontender. No guarding or rebound. Extremities: No edema on the left above-knee amputation. Laboratory Data: WBC 15, H and H 11.8/37.5. Sodium 148, potassium 3.7, bicarb 14, BUN 60, creatinine 3.36, worsening GFR of 19, calcium 8.9, phosphorus 3.1, albumin 1.7. Corrected calcium is 10.5. Serum protein electrophoresis is still pending. Current Medications: The patient on include; 1. LR. 2. Vancomycin. 3. Lovenox. 4. Atorvastatin. 5. Zoloft. 6. Zofran. 7. Finasteride. 8. Potassium sulfate. 9. Cholecalciferol. Assessment And Plan: 1. Acute kidney injury secondary to toxic ATN, poor perfusion, ATN, prerenal. Looked to me, he is still on the dry side complicated with acidosis. I am going to go ahead and discontinue LR. I will bolus the patient with 1 L of normal saline, then we will change the IV fluid to half normal with 3 amps of bicarb to decrease the load of chloride and we will monitor the patient. 2. Non-anion gap metabolic acidosis, mostly secondary to the GI loss and renal failure. We will start the patient on bicarb drip. We will follow up ABG. We will send for lactic acid. 3. Hypercalcemia. Serum protein electrophoresis is still pending. We will follow up, discontinue cholecalciferol. We will bolus the patient with normal saline and we will follow up. 4. Sepsis with severe acidosis. I am going to escalate his coverage. Continue vancomycin and we will add Zosyn. Time spent examining the patient [id number], reviewing the data lab and radiology, placing orders, discussing with the patient, explaining risks, benefits, alternatives, discussing with the staff member including nursing discussing with the hospitalist more than 35 minutes. ODELL/SASHA Voice ID: [id number] Report ID: [id number] KERI
[2022-05-13 13:35] LABS: Blood Morphology Comment NOT SEEN (NOT SEEN); Platelet Estimate ADEQ
[2022-05-13] MEDS: NACHLORIDE 0.45% 1,000 ML with NA BICARB 8.4% 75 MEQ IV SCH ×6 (13:50→23:51)
[2022-05-13] MEDS: ENOXAPARIN 30 MG/0.3 ML SQ SCH (16:50)
[2022-05-13] MEDS ORDERED: PIPER TAZO 2.25 GM in NA CHLORIDE 0.9% 50 ML IV SCH (17:00)
--- NOTE | 2022-05-13 20:53 | P.PN ---
Subjective Date of Service: 05/13/22 Chief Complaint: WEAKNESS, LOW GLUCOSE, NOT EATING. DIARRHEA FOR A FEW DAYS. Subjective: Improving HE FEELS LOT BETTER TODAY. DIARRHEA HAS IMPROVED. Review of Systems 10-point ROS is otherwise unremarkable General: Weakness Physical Examination - Vital Signs Temperature: 97 F Blood Pressure: 179/90 Pulse: 73 Respirations: 16 Pulse Ox (%): 7 - Physical Exam General: Oriented x3, Mild distress HEENT: Atraumatic, PERRLA, EOMI Neck: Supple, JVD not distended Respiratory: Clear to auscultation bilaterally, Normal air movement Cardiovascular: Regular rate/rhythm, Normal S1 S2 Gastrointestinal: Normal bowel sounds, No tenderness Musculoskeletal: No tenderness Integumentary: No rashes Neurological: Normal speech, Normal tone, Normal affect Lymphatics: No axilla or inguinal lymphadenopathy - Studies Medications List Reviewed: Yes Assessment And Plan - Current Problems (Diagnosis) (1) Hypoglycemia Current Visit: Yes Status: Acute Plan: D5NS BOLUS AND IV AFTER THAT. DR JOSE RAFAEL SAUER WITH CHANGES. CORTISOL HE COULD HAVE THIS FROM BEING SEPTIC. CHANGE IV TO RL MAY HELP MORE WITH SEPSIS (2) Diarrhea Current Visit: Yes Status: Acute Plan: CHECK C DIFF HE HAS BEEN IN HOSPITAL OVER LAST 3 MONTHS FOR 2 MONTHS AND RECEIVED ANTIBIOTICS FOR MANY WEEKS. I STARTED HIM ON VANCOMYCIN ORALLY BEFORE C DIFF TOXIN REPORT BECASUE OF HIGH SUSPICION AND WORSENED CLINICAL CONDITION. I HAD CHARGE NURSE CALLED WHY REPORT IS NOT BACK YET I HAVE HIGH SUSPICION OF C DIFF WITH HISTORY AND TYPE OF STOOL. I WILL ADD XIFAXAN WBC IS HIGHER EVEN AFTER VANCOMYCIN. Qualifiers: Diarrhea type: presumed infectious Qualified Code(s): R19.7 - Diarrhea, unspecified (3) Acute on chronic renal failure Current Visit: Yes Status: Acute Plan: IV FLUIDS ABOVE. DAILY LAB. IV FLUIDS. KCL REPLACE (4) Bipolar depression Current Visit: Yes Status: Chronic Plan: CONT MEDS. (5) History of left below knee amputation Current Visit: Yes Status: Acute (6) PVD (peripheral vascular disease) Current Visit: No Status: Chronic Plan: L BKA THIS IS FROM SMOKING. PROGNOSIS IS OVERALL POOR. (7) Hypercalcemia Current Visit: Yes Status: Acute Plan: TALKED TO DR. MANTILLA CORRECTED CALCIUM IS HIGH. CONT IV FLUIDS. PTH LEVEL PENDING. (8) Pseudomembranous colitis Current Visit: Yes Status: Acute Plan: CLINICALLY IMPORVED. DR. MANTILLA WANTS TO ADD FLAGLY METABOLIC ACIDOSIS IS WORSE. (9) Metabolic acidosis with respiratory alkalosis Current Visit: Yes Status: Acute Plan: THIS IS FROM INFECTION. DR MANTILLA STARTED NS WITH BICARP STOPPED RL
[2022-05-13] MEDS: Banana Flakes/T-Galactooligos 1 Dose Packet PO SCH (21:00)
[2022-05-13] MEDS: ENSURE HIGH PROTEIN 237 ML CAN PO SCH (21:01)
[2022-05-13] MEDS: JUVEN PACKET PO SCH (21:01)
[2022-05-13] MEDS: carvediloL 6.25 MG TAB PO SCH (21:06)
[2022-05-13] MEDS: ONDANSETRON 4 MG/2 ML VIAL IV PRN (23:34)
[2022-05-13] MEDS: metroNIDAZOLE 500 MG TABLET PO SCH (23:51)
[2022-05-14] MEDS: NACHLORIDE 0.45% 1,000 ML with NA BICARB 8.4% 75 MEQ IV SCH ×10 (05:12→21:00)
[2022-05-14] MEDS: metroNIDAZOLE 500 MG TABLET PO SCH ×3 (05:29→17:05)
[2022-05-14] MEDS: VANCOMYCIN ORAL SOLN 250 MG/5 ML OSYR PO SCH ×3 (05:29→17:05)
[2022-05-14 05:38] LABS: Absolute Lymphocytes (CBC) 0.8 K/uL (0.7-4.9); Hematocrit 33.3 % (39.6-49.0); Lymphocytes % 7.5 % (15.3-44.8); MCV 96.4 fL (80-100); RBC Red Blood Cell Count 3.45 M/uL (4.33-5.43)
[2022-05-14 06:01] LABS: Albumin 1.5 g/dL (3.4-5.0); Magnesium 1.8 mg/dL (1.8-2.4); Phosphorus 2.6 mg/dL (2.5-4.9)
[2022-05-14 06:06] LABS: Potassium 2.5 mmol/L (3.5-5.1)
[2022-05-14] MEDS: KCL 20 MEQ/100 mL IVPB 20 MEQ/100 ML BAG IV SCH ×4 (06:48→22:45)
[2022-05-14] MEDS: ONDANSETRON 4 MG/2 ML VIAL IV PRN (06:54)
[2022-05-14] MEDS: HOME MED 1 EA UNK (Bupropion Hcl [Wellbutrin] 75 MG Tablet) PO SCH (09:00)
[2022-05-14] MEDS: Banana Flakes/T-Galactooligos 1 Dose Packet PO SCH ×2 (09:00→21:00)
[2022-05-14] MEDS: SODIUM BICARB 325 MG TAB PO SCH ×3 (09:33→21:00)
[2022-05-14] MEDS: FAMOTIDINE 20 MG TAB PO SCH (09:34)
[2022-05-14] MEDS: SERTRALINE HCL 100 MG TAB PO SCH (09:34)
[2022-05-14] MEDS: FINASTERIDE 5 MG TAB PO SCH (09:34)
[2022-05-14] MEDS: ATORVASTATIN 10 MG TAB PO SCH (09:34)
[2022-05-14] MEDS: ASPIRIN EC 81 MG TAB PO SCH (09:34)
[2022-05-14] MEDS: MIRTAZAPINE 15 MG TAB PO SCH ×2 (09:34→21:00)
[2022-05-14] MEDS: carvediloL 6.25 MG TAB PO SCH ×2 (09:35→21:00)
[2022-05-14] MEDS: JUVEN PACKET PO SCH ×2 (09:36→22:42)
[2022-05-14] MEDS: ENSURE HIGH PROTEIN 237 ML CAN PO SCH ×2 (09:36→22:42)
[2022-05-14] MEDS: ACETAMINOPHEN 500 MG TAB PO PRN (09:39)
[2022-05-14] MEDS ORDERED: D5 0.45 NS 1,000 ML IV SCH (12:00)
--- NOTE | 2022-05-14 12:36 | PN ---
Date of Progress Note: 05/14/2022 Subjective: The patient was admitted with Clostridium difficile colitis with acute kidney injury. The patient was on fluid resuscitation, has been stabilized. The patient had severe acidosis. The patient still has severe diarrhea. Physical Examination: Vital Signs: When I saw the patient; blood pressure 132/79, pulse of 88. Chest: Clear to auscultation. Heart: S1, S2. Systolic murmur. Abdomen: Mild tenderness. No guarding or rebound. Extremities: No edema. Neuro: Alert. No focality. Laboratory Data: WBC 10.3, H and H of .3. Sodium 147, potassium 2.5, bicarb 17, BUN 59, creatinine 3.5. Calcium 8, magnesium 1.8. Current Medications: The patient on include; 1. Metronidazole. 2. Vancomycin 250 every 6. 3. Aspirin. 4. Lovenox. 5. Carvedilol 6.25 b.i.d. 6. Atorvastatin. 7. Mirtazapine. 8. Sodium bicarb drip. 9. Sodium bicarb 650 b.i.d. oral. 10. KCl. Assessment And Plan: 1. Acute kidney injury secondary to prerenal. The patient still look on the dry side, obstructive uropathy has been ruled out. I am going to continue aggressive hydration for the patient. 2. Hypokalemia, hypomagnesemia. We will supplement. 3. Clostridium difficile colitis. Continue current treatment. 4. Hypercalcemia, resolved. Calcium corrected today is 10. Continue hydration mostly secondary to immobilization. 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 We will follow up. Currently, no need for special treatment as calcium normalized. Phosphorus stable. Time spent examining the patient [id number], reviewing the data lab and radiology, placing orders, discussing with the patient, explaining risks, benefits, alternatives, discussing with the staff member including nursing discussing with the hospitalist more than 35 minutes. DONN Voice ID: [id number] Report ID: [id number] KERI
[2022-05-14] MEDS ORDERED: Magnesium Sulfate 2gm IVPB 2 G/50 ML BAG IV ONE (13:00)
[2022-05-14] MEDS: ENOXAPARIN 30 MG/0.3 ML SQ SCH (17:05)
[2022-05-14] MEDS ORDERED: POTASSIUM CL SA 10 MEQ TAB PO ONE (20:00)
[2022-05-14 20:36] LABS: Potassium 2.5 mmol/L (3.5-5.1)
--- NOTE | 2022-05-14 21:08 | P.PN ---
Subjective Date of Service: 05/14/22 Chief Complaint: WEAKNESS, LOW GLUCOSE, NOT EATING. DIARRHEA FOR A FEW DAYS. Subjective: Improving HE FEELS LOT BETTER TODAY. DIARRHEA HAS IMPROVED. HE IS LOT BETTER IN THE WAY HE FEELS AND LOOKS . DIARRHEA HAS IMPROVED. HE IS ABLE TO EAT. Review of Systems 10-point ROS is otherwise unremarkable General: Weakness Physical Examination - Vital Signs Temperature: 96.9 F Blood Pressure: 132/70 Pulse: 73 Respirations: 18 Pulse Ox (%): 93 - Physical Exam General: Mild distress HEENT: Atraumatic, PERRLA, EOMI Neck: Supple, JVD not distended Respiratory: Clear to auscultation bilaterally, Normal air movement Cardiovascular: Regular rate/rhythm, Normal S1 S2 Gastrointestinal: Normal bowel sounds, No tenderness Musculoskeletal: No tenderness, Other (AMPUTEE.) Integumentary: No rashes Neurological: Normal speech, Normal tone, Normal affect Lymphatics: No axilla or inguinal lymphadenopathy - Studies Medications List Reviewed: Yes Assessment And Plan - Current Problems (Diagnosis) (1) Hypoglycemia Current Visit: Yes Status: Acute Plan: D5NS BOLUS AND IV AFTER THAT. DR JOSE RAFAEL SAUER WITH CHANGES. CORTISOL HE COULD HAVE THIS FROM BEING SEPTIC. CHANGE IV TO RL MAY HELP MORE WITH SEPSIS (2) Diarrhea Current Visit: Yes Status: Acute Plan: CHECK C DIFF HE HAS BEEN IN HOSPITAL OVER LAST 3 MONTHS FOR 2 MONTHS AND RECEIVED ANTIBIOTICS FOR MANY WEEKS. I STARTED HIM ON VANCOMYCIN ORALLY BEFORE C DIFF TOXIN REPORT BECASUE OF HIGH SUSPICION AND WORSENED CLINICAL CONDITION. I HAD CHARGE NURSE CALLED WHY REPORT IS NOT BACK YET I HAVE HIGH SUSPICION OF C DIFF WITH HISTORY AND TYPE OF STOOL. I WILL ADD XIFAXAN WBC IS HIGHER EVEN AFTER VANCOMYCIN. Qualifiers: Diarrhea type: presumed infectious Qualified Code(s): R19.7 - Diarrhea, unspecified (3) Acute on chronic renal failure Current Visit: Yes Status: Acute Plan: IV FLUIDS ABOVE. DAILY LAB. IV FLUIDS. KCL REPLACE (4) Bipolar depression Current Visit: Yes Status: Chronic Plan: CONT MEDS. (5) History of left below knee amputation Current Visit: Yes Status: Acute (6) PVD (peripheral vascular disease) Current Visit: No Status: Chronic Plan: L BKA THIS IS FROM SMOKING. PROGNOSIS IS OVERALL POOR. (7) Hypercalcemia Current Visit: Yes Status: Acute Plan: TALKED TO DR. MANTILLA CORRECTED CALCIUM IS HIGH. CONT IV FLUIDS. PTH LEVEL PENDING. (8) Pseudomembranous colitis Current Visit: Yes Status: Acute Plan: CLINICALLY IMPORVED. DR. MANTILLA WANTS TO ADD FLAGLY METABOLIC ACIDOSIS IS WORSE. VANCOMYCIN WORKED WELL. WBC CAME DOWN BEFORE ADDING FLAGYL. LAB IMPROVED BEFORE ADDING FLAGYL MAY BE STABLE ONLYON VANCOMYCIN (9) Metabolic acidosis with respiratory alkalosis Current Visit: Yes Status: Acute Plan: THIS IS FROM INFECTION. DR MANTILLA STARTED NS WITH BICARP STOPPED RL
[2022-05-14 21:15] LABS: Magnesium 2.3 mg/dL (1.8-2.4)
[2022-05-15] MEDS: metroNIDAZOLE 500 MG TABLET PO SCH ×4 (00:27→17:16)
[2022-05-15] MEDS: VANCOMYCIN ORAL SOLN 250 MG/5 ML OSYR PO SCH ×4 (00:27→17:16)
[2022-05-15] MEDS: KCL 20 MEQ/100 mL IVPB 20 MEQ/100 ML BAG IV SCH ×2 (01:42→06:17)
[2022-05-15] MEDS: NACHLORIDE 0.45% 1,000 ML with NA BICARB 8.4% 75 MEQ IV SCH ×2 (05:10)
[2022-05-15 06:37] LABS: Albumin 1.6 g/dL (3.4-5.0); Phosphorus 1.7 mg/dL (2.5-4.9)
[2022-05-15 06:39] LABS: Absolute Lymphocytes (CBC) 0.9 K/uL (0.7-4.9); Hematocrit 35.8 % (39.6-49.0); Lymphocytes % 7.9 % (15.3-44.8); MCV 95.6 fL (80-100); MPV 8.1 fL (7.6-11.3); RBC Red Blood Cell Count 3.75 M/uL (4.33-5.43)
[2022-05-15 08:00] LABS: Anisocytosis SLIGHT; Blood Morphology Comment NOTED (NOT SEEN); Platelet Estimate DECR; White Blood Cell Scan OK (OK)
[2022-05-15 08:01] LABS: Poikilocytosis SLIGHT
[2022-05-15] MEDS: SODIUM BICARB 325 MG TAB PO SCH ×3 (08:58→21:56)
[2022-05-15] MEDS: FINASTERIDE 5 MG TAB PO SCH (08:58)
[2022-05-15] MEDS: FAMOTIDINE 20 MG TAB PO SCH (08:59)
[2022-05-15] MEDS: SERTRALINE HCL 100 MG TAB PO SCH (08:59)
[2022-05-15] MEDS: carvediloL 6.25 MG TAB PO SCH ×2 (08:59→21:56)
[2022-05-15] MEDS: ASPIRIN EC 81 MG TAB PO SCH (08:59)
[2022-05-15] MEDS: MIRTAZAPINE 15 MG TAB PO SCH ×2 (08:59→21:56)
[2022-05-15] MEDS: ATORVASTATIN 10 MG TAB PO SCH (08:59)
[2022-05-15] MEDS: HOME MED 1 EA UNK (Bupropion Hcl [Wellbutrin] 75 MG Tablet) PO SCH (09:00)
[2022-05-15] MEDS: JUVEN PACKET PO SCH ×2 (09:00→21:58)
[2022-05-15] MEDS: ENSURE HIGH PROTEIN 237 ML CAN PO SCH ×2 (09:00→21:58)
[2022-05-15] MEDS: Banana Flakes/T-Galactooligos 1 Dose Packet PO SCH ×2 (09:00→21:00)
[2022-05-15] MEDS ORDERED: POTASSIUM CL SA 10 MEQ TAB PO ONE ×2 (12:00→17:00)
[2022-05-15] MEDS ORDERED: Magnesium Sulfate 2gm IVPB 2 G/50 ML BAG IV ONE (12:00)
--- NOTE | 2022-05-15 12:58 | PN ---
Date of Progress Note: 05/15/2022 Subjective: The patient was admitted with acute kidney injury secondary to gastroenteritis. The patient had significant decline in the kidney function. The patient started on aggressive hydration. Kidney function stabilized. The patient still has persistent diarrhea. Physical Examination: Vital Signs: Blood pressure 183/65, pulse of 72, afebrile. Chest: Clear to auscultation. Heart: S1, S2. Regular. Abdomen: Soft, nontender. No guarding or rebound. Extremities: No edema. Neurologic: Alert. No focality. Laboratory Data: WBC 11.4, H and H 11.7/35.8. Sodium 145, potassium 3, bicarb 20, BUN 69, creatinine 3.3, GFR of 19, phosphorus 1.7, calcium 8.1, albumin 1.6, corrected calcium is 10. Current Medications: The patient on include; 1. Aspirin. 2. Metronidazole 500 mg t.i.d. 3. Vancomycin. 4. Lovenox. 5. Carvedilol 6.25 b.i.d. 6. Mirtazapine. 7. Zoloft. 8. Sodium bicarb drip 1 and half amp at 75 per hour. Assessment And Plan: 1. Acute kidney injury secondary to GI loss, dehydration, prerenal, continued to recover, nonoliguric. No hyperkalemia. The acidosis has been controlled with bicarb drip. I do not see the need for initiating any renal replacement therapy. We will continue to monitor. I am going to go ahead and decrease the bicarb concentration to allow more hypotonic fluid given the presence of hypernatremia. 2. Hypernatremia secondary to depletion. We will change IV fluid decreasing the bicarb concentration. 3. Acidosis non-anion gap metabolic acidosis secondary to GI loss secondary to the diarrhea. Continue current bicarb. 4. Hypokalemia. We will supplement cautiously given the degree of kidney injury. 5. Hypophosphatemia. We will supplement. 6. Colitis, Clostridium difficile. Continue current antibiotic. Follow up with primary. Time spent examining the patient [id number], reviewing the data lab and radiology, placing orders, discussing with the patient, explaining risks, benefits, alternatives, discussing with the staff member including nursing discussing with the hospitalist more than 35 minutes. DONN Voice ID: [id number] Report ID: [id number]
[2022-05-15] MEDS ORDERED: POTASSIUM PHOS 10 MM in NA CHLORIDE 0.9% 250 ML IV ONE (13:00)
[2022-05-15 16:13] LABS: Vitamin D 1,25-Dihydroxy Total 8 pg/mL (18-72); Vitamin D,1,25-OH2, D2 <8 pg/mL
[2022-05-15] MEDS: NACHLORIDE 0.45% 1,000 ML with NA BICARB 8.4% 50 MEQ IV SCH ×4 (17:16→21:24)
[2022-05-15] MEDS: ENOXAPARIN 30 MG/0.3 ML SQ SCH (17:17)
--- NOTE | 2022-05-15 21:22 | P.PN ---
Subjective Date of Service: 05/15/22 Chief Complaint: WEAKNESS, LOW GLUCOSE, NOT EATING. DIARRHEA FOR A FEW DAYS. Subjective: Improving COY IS BETTER CLINICALLY. HE DOES NOT HAVE ANY NEW COMPLAINTS. Physical Examination - Vital Signs Temperature: 97.3 F Blood Pressure: 110/66 Pulse: 73 Respirations: 16 Pulse Ox (%): 91 - Physical Exam General: Mild distress HEENT: Atraumatic, PERRLA, EOMI Neck: Supple, JVD not distended Respiratory: Clear to auscultation bilaterally, Normal air movement Cardiovascular: Regular rate/rhythm, Normal S1 S2 Gastrointestinal: Normal bowel sounds, No tenderness Musculoskeletal: No tenderness, Other (AMPUTEE) Integumentary: No rashes Neurological: Normal speech, Normal tone, Normal affect Lymphatics: No axilla or inguinal lymphadenopathy - Studies Microbiology Data (last 24 hrs): 05/10/22 03:38 Blood - Blood Aerobic Blood Culture - Final No growth in 5 days. 05/10/22 03:38 Blood - Blood Anaerobic Blood Culture - Final 05/10/22 03:27 Blood - Blood Aerobic Blood Culture - Final No growth in 5 days. 05/10/22 03:27 Blood - Blood Anaerobic Blood Culture - Final Medications List Reviewed: Yes Assessment And Plan - Current Problems (Diagnosis) (1) Hypoglycemia Current Visit: Yes Status: Acute Plan: D5NS BOLUS AND IV AFTER THAT. DR JOSE RAFAEL SAUER WITH CHANGES. CORTISOL HE COULD HAVE THIS FROM BEING SEPTIC. CHANGE IV TO RL MAY HELP MORE WITH SEPSIS (2) Diarrhea Current Visit: Yes Status: Acute Plan: CHECK C DIFF HE HAS BEEN IN HOSPITAL OVER LAST 3 MONTHS FOR 2 MONTHS AND RECEIVED ANTIBIOTICS FOR MANY WEEKS. I STARTED HIM ON VANCOMYCIN ORALLY BEFORE C DIFF TOXIN REPORT BECASUE OF HIGH SUSPICION AND WORSENED CLINICAL CONDITION. I HAD CHARGE NURSE CALLED WHY REPORT IS NOT BACK YET I HAVE HIGH SUSPICION OF C DIFF WITH HISTORY AND TYPE OF STOOL. I WILL ADD XIFAXAN WBC IS HIGHER EVEN AFTER VANCOMYCIN. WBC MILD HIGHER TODAY. NED FU DAILY. Qualifiers: Diarrhea type: presumed infectious Qualified Code(s): R19.7 - Diarrhea, unspecified (3) Acute on chronic renal failure Current Visit: Yes Status: Acute Plan: IV FLUIDS ABOVE. DAILY LAB. IV FLUIDS. KCL REPLACE (4) Bipolar depression Current Visit: Yes Status: Chronic Plan: CONT MEDS. (5) History of left below knee amputation Current Visit: Yes Status: Acute (6) PVD (peripheral vascular disease) Current Visit: No Status: Chronic Plan: L BKA THIS IS FROM SMOKING. PROGNOSIS IS OVERALL POOR. (7) Hypercalcemia Current Visit: Yes Status: Acute Plan: TALKED TO DR. MANTILLA CORRECTED CALCIUM IS HIGH. CONT IV FLUIDS. PTH LEVEL PENDING. (8) Pseudomembranous colitis Current Visit: Yes Status: Acute Plan: CLINICALLY IMPORVED. DR. MANTILLA WANTS TO ADD FLAGLY METABOLIC ACIDOSIS IS WORSE. VANCOMYCIN WORKED WELL. WBC CAME DOWN BEFORE ADDING FLAGYL. LAB IMPROVED BEFORE ADDING FLAGYL MAY BE STABLE ONLYON VANCOMYCIN (9) Metabolic acidosis with respiratory alkalosis Current Visit: Yes Status: Acute Plan: THIS IS FROM INFECTION. DR MANTILLA STARTED NS WITH BICARP STOPPED RL (10) Hypokalemia Current Visit: Yes Status: Acute Plan: REPLACE K FU DAILY
[2022-05-16] MEDS: VANCOMYCIN ORAL SOLN 250 MG/5 ML OSYR PO SCH ×4 (00:08→17:12)
[2022-05-16] MEDS: metroNIDAZOLE 500 MG TABLET PO SCH ×4 (00:08→17:12)
[2022-05-16] MEDS: NACHLORIDE 0.45% 1,000 ML with NA BICARB 8.4% 50 MEQ IV SCH ×6 (00:45→21:52)
[2022-05-16] MEDS: ACETAMINOPHEN 500 MG TAB PO PRN (02:31)
[2022-05-16 06:43] LABS: Absolute Lymphocytes (CBC) 1.7 K/uL (0.7-4.9); Hematocrit 32.6 % (39.6-49.0); Lymphocytes % 15.8 % (15.3-44.8); MCV 93.5 fL (80-100); MPV 7.6 fL (7.6-11.3); RBC Red Blood Cell Count 3.48 M/uL (4.33-5.43)
[2022-05-16 07:06] LABS: Albumin 1.5 g/dL (3.4-5.0); Magnesium 2.5 mg/dL (1.8-2.4); Potassium 3.4 mmol/L (3.5-5.1)
[2022-05-16 07:13] LABS: Phosphorus 0.8 mg/dL (2.5-4.9)
[2022-05-16] MEDS ORDERED: POTASSIUM PHOS 30 MM in NA CHLORIDE 0.9% 500 ML IV ONE (07:27)
[2022-05-16] MEDS: MIRTAZAPINE 15 MG TAB PO SCH ×2 (08:13→21:53)
[2022-05-16] MEDS: SERTRALINE HCL 100 MG TAB PO SCH (08:14)
[2022-05-16] MEDS: FINASTERIDE 5 MG TAB PO SCH (08:14)
[2022-05-16] MEDS: carvediloL 6.25 MG TAB PO SCH ×2 (08:14→21:54)
[2022-05-16] MEDS: FAMOTIDINE 20 MG TAB PO SCH (08:14)
[2022-05-16] MEDS: ASPIRIN EC 81 MG TAB PO SCH (08:15)
[2022-05-16] MEDS: SODIUM BICARB 325 MG TAB PO SCH ×3 (08:15→21:54)
[2022-05-16] MEDS: ATORVASTATIN 10 MG TAB PO SCH (08:15)
[2022-05-16] MEDS: JUVEN PACKET PO SCH ×2 (08:17→21:00)
[2022-05-16] MEDS: ENSURE HIGH PROTEIN 237 ML CAN PO SCH ×2 (08:17→21:00)
[2022-05-16] MEDS: HOME MED 1 EA UNK (Bupropion Hcl [Wellbutrin] 75 MG Tablet) PO SCH (09:00)
[2022-05-16] MEDS: Banana Flakes/T-Galactooligos 1 Dose Packet PO SCH ×2 (09:00→21:00)
--- NOTE | 2022-05-16 10:41 | P.PN ---
Subjective Date of Service: 05/16/22 Chief Complaint: WEAKNESS, LOW GLUCOSE, NOT EATING. DIARRHEA FOR A FEW DAYS. Subjective: No new changes (No urinary complaints.) Physical Examination - Vital Signs Temperature: 97.4 F Blood Pressure: 141/69 Pulse: 69 Respirations: 16 Pulse Ox (%): 94 - Physical Exam General: Other (Appears as his stated age) HEENT: Atraumatic, Normocephalic Neck: Supple Respiratory: Other (Symmetric chest expansion) Cardiovascular: No rubs, No murmurs Gastrointestinal: Soft and benign, No rebound Musculoskeletal: No clubbing Integumentary: No warmth Neurological: Normal tone Urinary: Other (No bladder distention) External genitalia: Deferred Rectal: Deferred - Studies Medications List Reviewed: Yes Assessment And Plan - Plan 1. Acute kidney injury secondary to GI loss, dehydration, prerenal, continued to recover, nonoliguric. ROSS improving. Received IV fluid. [place] po fluid i ntake. 2. Hypernatremia. IV/PO hydration. 3. Acidosis non-anion gap metabolic acidosis secondary to GI loss secondary to the diarrhea. Improved. Cont po bicarb. 4. Hypokalemia. Mild, monitor. 5. Hypophosphatemia. We will supplement. 6. Colitis, Clostridium difficile. Continue current antibiotic. Follow up with primary.
[2022-05-16] MEDS: ENOXAPARIN 30 MG/0.3 ML SQ SCH (16:38)
[2022-05-16 21:30] VITALS: O2SAT 97
[2022-05-17 05:36] VITALS: BP 141/69; TEMP 97.4
== END 2022-05-17 01:20 | DRG 871 ==
LOC: ER 18:31 → ERHOLD 23:33 → 4TH 05-10 00:50 → OBSVTOIN 05-10 17:37
PROVIDERS: ADMIT Internal Medicine; ATTEND Internal Medicine
DX: A41.9 Sepsis, unspecified organism (principal); R65.21 Severe sepsis with septic shock; N17.0 Acute kidney failure with tubular necrosis; R64 Cachexia; A04.72 Enterocolitis due to Clostridium difficile, not specified as recurrent; E87.2 Acidosis; E87.3 Alkalosis; E87.0 Hyperosmolality and hypernatremia; N18.4 Chronic kidney disease, stage 4 (severe); N25.81 Secondary hyperparathyroidism of renal origin; I12.9 Hypertensive chronic kidney disease with stage 1 through stage 4 chronic kidney disease, or unspecified chronic kidney disease; I73.9 Peripheral vascular disease, unspecified; E78.5 Hyperlipidemia, unspecified; M54.50 Low back pain, unspecified; I25.10 Atherosclerotic heart disease of native coronary artery without angina pectoris; F31.9 Bipolar disorder, unspecified; E83.52 Hypercalcemia; E83.42 Hypomagnesemia; E83.39 Other disorders of phosphorus metabolism; E87.6 Hypokalemia; E86.0 Dehydration; K21.9 Gastro-esophageal reflux disease without esophagitis; E16.2 Hypoglycemia, unspecified; F17.200 Nicotine dependence, unspecified, uncomplicated; Z88.8 Allergy status to other drugs, medicaments and biological substances; Z95.1 Presence of aortocoronary bypass graft; Z90.49 Acquired absence of other specified parts of digestive tract; Z79.82 Long term (current) use of aspirin; Z79.899 Other long term (current) drug therapy; Z86.718 Personal history of other venous thrombosis and embolism; Z89.512 Acquired absence of left leg below knee; Z20.822 Contact with and (suspected) exposure to COVID-19
CPT/HCPCS: 36415; 71045; 74176; 80048; 80053; 80069; 81001; 82306; 82533; 82550; 82570; 82652; 82805; 82947; 83605; 83690; 83735; 83970; 84100; 84132; 84145; 84156; 85025; 86335; 87040; 87324; 96374; 97110; 97161; 99284; G0378; J1650; J2405; J2543; J3475; J3480; J7030; J7040; J7042; J7050; J7120; J7799; U0003

== ENCOUNTER 2022-06-02 13:08 | Emergency (ER) | payer OTHER ==
--- OUTSIDE RECORDS SUMMARY | 2022-06-02 13:20 | XMS REPORT | Continuity of Care Document ---
:1955 Author Organization [facility] t Address [address] [place] [address] Dr. Mcmullen. [address] [place] [address] Care Team Providers Name Role Phone LUIS AGUILERA Primary Care Physician UnavailLASHAWN Morocho Attending Clinician Unavailable Lashawn Watts MD Attending Clinician [phone] HECTOR MOYER Attending Clinician Unavailable Lourdes Wray MD Attending Clinician Yogi Munoz MD Attending Clinician [phone] YOGI MUNOZ Attending Clinician Unavailable Santhosh Barker MD Attending Clinician Jhony Padilla CRNA Attending Clinician [phone] Liao Attending Clinician [address] ALVAREZ RATLIFF Attending Clinician Unavailable KNOW, DOES_NOT Attending Clinician Unavailable Josselyn Zavala MD Attending Clinician JOSSELYN ZAVALA Attending Clinician Unavailable Maycol Peace MD Attending Clinician Renzo Waller Attending Clinician Live Márquez MD Attending Clinician Gm Holden MD Attending Clinician YOGI MUNOZ Admitting Clinician Unavailable DR ALVAREZ RATLIFF Admitting Clinician Unavailable JOSSELYN ZAVALA Admitting Clinician Unavailable Payers Payer Name Policy Type Policy Number Effective Date Expiration Date [place] WANG MEDICARE [id number] 2021 00:00:00 [id number] 1961 00:00:00 Problems Condition Condition Condition Status Onset Resolution Last Treating Co mments Source Name Details Category Date Date Treatment Clinician Date Tobacco Tobacco Disease Active [facility] disorder disorder 00:00: Medica l 00 [place] Moderate Moderate Disease [facility] protein-ca protein-ca 02-12 [place] 00:[place]: Medical malnutriti malnutriti 00 Ce nter on on Infected Infected Disease [facility] 00:[facility]: Medical 00 [place] Infected Infected Disease Active [facility] surgical surgical [facility]11 [facility] wound wound 00:00: Medical 00 [place] S/P AKA S/P AKA Disease Active [facility] (above (above 02-11 [facility] knee knee 00:00: Medical amputation amputation 00 Ce nter ) ) unilateral unilateral , left , left Pseudomona Pseudomona Disease Active [facility] s s 02-11 [facility] infection infection 00:00: Medi titus 00 Center Peripheral Peripheral Disease Active [facility] artery artery 02-11 [facility] disease disease 00:00: Medical 00 [place] Stage 4 Stage [address] [facility] chronic chronic 02-06 [facility] kidney kidney 00:00: Medical disease disease 00 Center Memory Memory Disease Active [facility] changes changes 02-06 [facility] 00:00: Medical 00 [place] Urinary Urinary Disease Active [facility] incontinen incontinen 02-06 [facility] ce ce 00:00: Medical 00 [place] Gangrene Gangrene Disease Active [facility] -23 [facility] 00:[facility]: Medical 00 [place] Leg wound, Leg wound, Disease Active [facility] left, left, 4-18 [facility] [...] ZINE 4-16 [facility] (BULK) 00:00: Medical 00 Center Prometha Propensi Active Anaphylaxis [address] zine ty to 4-16 [facility] (Bulk) adverse 00:00: Medical reaction 00 Center s Chlorpro Propensi Active Anaphylaxis [facility] mazine ty to 4-16 [facility] adverse 00:00: Medical reaction 00 Center s PROMETHA Allergy Active High Nausea 2005- [facility] ZINE 12-08 00:00: 00 Prometha Drug Active Nausea Only Other [facility] zine Allergy 12-08 reaction( [facility] 00:00: s): Medical 00 Anaphylax Center is, Nausea/Vo miting, Unknown, Unknown Prometha DA Active Unknown [facility] Chlorpro DA Active Unknown [facility] Phenerga Adverse Active Info Not Commo n n Reaction Available [facility] - [facility] Social History Social Habit Start Date Stop Date Quantity Comments Source History [facility] Non-Med [facility] Alcohol intake 2022-03-13 2022-03-13 Ex-drinker [facility] St Harsh es 00:00:00 00:00:00 (finding) Medical Center History [facility] 2022-02-12 2022-02-[address] [facility] Housing Unable to 00:00:00 00:00:00 Medical Center Pay History [facility] 2022-02-12 2022-02-[address] [facility] Housing Places 00:00:00 00:00:00 Medical Ce nter Lived History [facility] 2022-02-12 2022-02-[address] [facility] Housing Homeless 00:00:00 00:00:00 Medical Center Last Year Exposure to 2021-11-29 2021-12-[address] [facility] SARS-CoV-2 (event) 00:00:00 02:01:00 [facility] Tobacco use and 2021-12-29 2021-12-[address] [facility] kes exposure 00:00:00 00:00:00 Medical Center History [facility] 2021-12-29 2021-12-[address] [facility] Transport Med 00:00:00 00:00:[address] Sex Ass[birth year] At [birth year] [facility] [address] Nneka kes 00:00:00 00:00:00 Medical Center Smoking Status Start Date Stop Date Source Former smoker 2021-12-29 00:00:00 2021-12-29 00:00:00 [facility] Medications Ordered Filled Start Stop Current Ordering Indication Dosage Frequency Signature Comments Components Source Medication Medication Date Date Medication? Clinician (SIG) Name Name aspirin 81 Yes 81mg QD Take [address] MG EC 6-30 by mouth [facility] tablet 10:31: daily. Medical 07 [place] atorvastati Yes 10mg QD Take [address] n (LIPITOR) 6-30 by mouth Luke s 10 MG 10:31: daily. Medical tablet 07 [place] buPROPion Yes 50mg QD Take [address] (WELLBUTRIN 6-30 by mouth Luke s ) 100 MG 10:31: daily. Medical tablet 07 [place] divalproex Yes 500mg QD Take [address] (DEPAKOTE) 6-30 mg by [facility] 500 MG EC 10:31: mouth Medical tablet 07 nightly. [place] finasteride Yes 5mg QD Take [address] (PROSCAR) 5 6-30 by mouth Luke s mg tablet 10:31: daily. Medica l 07 [place] gabapentin Yes 100mg Q.[id number] Take [address] (NEURONTIN) 6-30 [id number] mg by L ukes 100 MG 10:31: 3D mouth 3 Medical capsule 07 (three) Center times daily. mirtazapine Yes 7.5mg QD Take 7.[address] (REMERON) 6-30 mg by [facility] 7.5 MG 10:31: mouth Medical tablet 07 nightly. [place] sertraline Yes 100mg QD Take [address] (ZOLOFT) 6-30 mg by [facility] 100 MG 10:31: mouth Medical tablet 07 daily. [place] tamsulosin Yes .4mg QD Take 0.[address] [facility] (FLOMAX) 6-30 mg by [facility] 0.4 mg Cap 10:31: mouth Medica l 24 hr 07 daily. [place] capsule calcitrioL Yes .25ug QD Take 0.[address] (ROCALTROL) 6-30 mcg by [facility] 0.25 MCG 10:31: mouth Medical capsule 07 daily. [place] aspirin 81 Yes 81mg QD Take [address] MG EC 6-30 by mouth [facility] tablet 10:31: daily. Medical [address] [place] [address] atorvastati Yes 10mg QD Take [address] n (LIPITOR) 6-30 by mouth Luke s 10 MG 10:31: daily. Medical tablet 07 [place] buPROPion Yes 50mg QD Take [address] (WELLBUTRIN 6-30 by mouth Luke s ) 100 MG 10:31: daily. Medical tablet 07 [place] divalproex Yes 500mg QD Take [address] (DEPAKOTE) 6-30 mg by [facility] 500 MG EC 10:31: mouth Medical tablet 07 nightly. [place] finasteride Yes 5mg QD Take [address] (PROSCAR) 5 6-30 by mouth Luke s mg tablet 10:31: daily. Medica l 07 [place] gabapentin Yes 100mg Q.[id number] Take [address] (NEURONTIN) 6-30 [id number] mg by L ukes 100 MG 10:31: 3D mouth 3 Medical capsule 07 (three) Center times daily. mirtazapine Yes 7.5mg QD Take 7.[address] (REMERON) 6-30 mg by [facility] 7.5 MG 10:31: mouth Medical tablet 07 nightly. [place] sertraline Yes 100mg QD Take [address] (ZOLOFT) 6-30 mg by [facility] 100 MG 10:31: mouth Medical tablet 07 daily. [place] tamsulosin Yes .4mg QD Take 0.[address] (FLOMAX) 6-30 mg by [facility] 0.4 mg Cap 10:31: mouth Medica l 24 hr 07 daily. [place] capsule calcitrioL Yes .25ug QD Take 0.[address] (ROCALTROL) 6-30 mcg by [facility] 0.25 MCG 10:31: mouth Medical capsule 07 daily. [place] miscellaneo Yes Infected Please [facility] medical 03-13 surgical discontinu [facility] supply Misc 00:00: wound e and Medi titus 00 remove Center PICC line and sutures. Apply steri-stri ps to the portals.. miscellaneo Yes Infected Please [facility] medical 03-13 surgical discontinu [facility] supply Misc 00:00: wound e and Medi titus 00 remove Center PICC line and sutures. Apply steri-stri ps to the portals.. miscellaneo Yes Bedside [facility] 6-13 [facility] supply Misc 00:00: ndard Medic al 00 Wheelchair Center . miscellaneo Yes Bedside [facility] 6-13 [facility] supply Misc 00:00: ndard Medic al 00 Wheelchair Center . meropenem 2021- No 500mg Inject [address] (MERREM) 02-20 06-30 mg [facility] 500 mg in 00:00: 23:59 intravenou M edical NS 100 mL 00 :00 sly every Cente r (V2B) IVPB 12 (twelve) hours for 21 days. meropenem 2021- No 500mg Inject [address] (MERREM) 02-20 06-30 mg [facility] 500 mg in 00:00: 23:59 intravenou M edical NS 100 mL 00 :00 sly every Cente r (V2B) IVPB 12 (twelve) hours for 21 days. miscellaneo 2021- No S/P AKA Patient [facility] 02-06 (above knee needs:- [facility] supply Misc 00:00: 00:00 amputation) [facility] 00 :00 unilateral, Bed- Center left (HCC) [...] 2 (two) times daily for 10 days. miscellaneo 2021- No S/P AKA Patient [facility] 02-06 (above knee needs:- [facility] supply Misc 00:00: 00:00 amputation) [facility] 00 :00 unilateral, Bed- Center left (HCC) Shower Transfer Bench- Narrow Transport- Elevated toilet seat- Bed side Commode- Wheel Chair Cushion : Gel Foam. doxycycline 2021- No S/P AKA 100mg Q.5D Take [address] [address] (DORYX) 100 5-26 06-09 (above knee tablet [facility] MG EC 00:00: 00:00 amputation) (100 mg M edical tablet 00 :00 unilateral, total) by C enter left (HCC) mouth 2 (two) times daily for 10 days. aspirin 81 0 Yes 81mg QD Take [address] MG EC 4-29 by mouth [facility] tablet 17:36: daily. Medical 27 Center atorvastati Yes 10mg QD Take 10 mg [...] EC 17:36: mouth Medical tablet 27 nightly. [place] finasteride Yes 5mg QD Take [address] (PROSCAR) 5 4-29 by mouth Luke s mg tablet 17:36: daily. Medica l 27 [place] gabapentin Yes 100mg Q.[id number] Take [address] (NEURONTIN) 4-29 [id number] mg by L ukes 100 MG 17:36: 3D mouth 3 Medical capsule 27 (three) Center times daily. mirtazapine Yes 7.5mg QD Take 7.[address] (REMERON) 4-29 mg by [facility] 7.5 MG 17:36: mouth Medical tablet 27 nightly. [place] sertraline Yes 100mg QD Take [address] (ZOLOFT) 4-29 mg by [facility] 100 MG 17:36: mouth Medical tablet 27 daily. Center tamsulosin Yes .4mg QD Take 0.[address] (FLOMAX) 4-29 mg by [facility] 0.4 mg Cap 17:36: mouth Medica l 24 hr 27 daily. [place] capsule calcitrioL Yes .25ug QD Take 0.[address] (ROCALTROL) 4-29 mcg by [facility] 0.25 MCG 17:36: mouth Medical capsule 27 daily. Center amLODIPine 2021- No 10mg QD Take [address] [facility] (NORVASC) 01-10- by mouth [facility] 10 MG 11:04: 00:00 daily. Medical tablet 11 :00 [place] cloNIDine 2021-2021- No .25mg Q.[id number] Take 0.[address] HCL 01-10- [id number] mg by [facility] (CATAPRES) 11:04: 00:00 3D mouth 3 Med ical 0.2 MG 11 :00 (three) Center tablet times daily. amLODIPine 2021- No 10mg QD Take [address] [facility] (NORVASC) 01-10- by mouth [facility] 10 MG 11:04: 00:00 daily. Medical tablet 11 :00 [place] cloNIDine 2021- No .25mg Q.[id number] Take 0.[address] HCL 01-10- [id number] mg by [facility] (CATAPRES) 11:04: 00:00 3D mouth 3 Med ical 0.2 MG 11 :00 (three) Center tablet times daily. amLODIPine 2021- No 10mg QD Take [address] (NORVASC) 01-10 by mouth [facility] 10 MG 11:04: 00:00 daily. Medical tablet 11 :00 [place] cloNIDine 2021- No .25mg Q.[id number] Take 0.[address] HCL 01-10- [id number] mg by [facility] (CATAPRES) 11:04: 00:00 3D mouth 3 Med ical 0.2 MG 11 :00 (three) Center tablet times daily. sodium 2021- No 1300mg Q.[id number] Take [address] bicarbonate 01-10- [id number] tablets [facility] 650 MG 00:00: 23:59 3D (1,300 mg Medic al tablet 00 :00 total) by Center mouth 3 (three) times daily for 30 days. metoprolol 2021-2021- No 25mg Q.5D Take [address] tartrate 01-10- tablet (25 Luke s (LOPRESSOR) 00:00: 23:59 mg total) Medical 25 MG 00 :00 by mouth 2 Center tablet (two) times daily for 30 days. sodium 2021-0 2021- No 1300mg Q.[id number] Take [address] bicarbonate 01-10- [id number] tablets [facility] 650 MG 00:00: 23:59 3D (1,300 mg Medic al tablet 00 :00 total) by Center mouth 3 (three) times daily for 30 days. metoprolol 2021-0 2022- No 25mg Q.5D Take [address] tartrate 01-10- tablet (25 [facility] (LOPRESSOR) 00:00: 23:59 mg total) Medical 25 MG 00 :00 by mouth 2 Center tablet (two) times daily for 30 days. sodium 2021-2021- No 1300mg Q.[id number] Take [address] bicarbonate 01-10- [id number] tablets [facility] 650 MG 00:00: 23:59 3D (1,300 mg Medic al tablet 00 :00 total) by Center mouth 3 (three) times daily for 30 days. metoprolol 2021-0 2021- No 25mg Q.5D Take [address] tartrate 01-10- tablet (25 [facility] (LOPRESSOR) 00:00: 23:59 mg total) Medical 25 MG 00 :00 by mouth 2 Center tablet (two) times daily for 30 days. docusate 2021-0 2021- No 100mg Take 1 [facility] sodium 01-10-09 capsule [facility] (COLACE) 00:00: 23:59 (100 mg Medic al 100 MG 00 :00 total) by Center capsule mouth 2 (two) times daily as needed for Constipati on for up to 10 days. clindamycin 2021-0 2021- No 300mg Q.[id number] Take [address] (CLEOCIN) 01-10 05- [id number] capsule [facility] 300 MG 00:00: 23:59 3D [...] on for up to 10 days. clindamycin 0 2021- No 300mg Q.[id number] Take [address] (CLEOCIN) 01-10 [id number] capsule [facility] 300 MG 00:00: 23:59 3D (300 mg Medical capsule 00 :00 total) by Center mouth 3 (three) times daily for 10 days. docusate 2021- No 100mg Take 1 [facility] sodium 01-10 capsule [facility] (COLACE) 00:00: 23:59 (100 mg Medic al 100 MG 00 :00 total) by Center capsule mouth 2 (two) times daily as needed for Constipati on for up to 10 days. clindamycin 2021- No 300mg Q.[id number] Take [address] (CLEOCIN) 01-10 [id number] capsule [facility] 300 MG 00:00: 23:59 3D (300 mg Medical capsule 00 :00 total) by Center mouth 3 (three) times daily for 10 days. amLODIPine 0 Yes 10mg QD Take [address] (NORVASC) 4-20 by mouth [facility] 10 MG 22:13: daily. Medical tablet 10 [place] aspirin 81 0 Yes 81mg QD Take [address] MG EC 4-20 by mouth [facility] tablet 22:13: daily. Medical 10 [place] atorvastati 0 Yes 10mg QD Take [address] [facility] n (LIPITOR) 4-20 by mouth Luke s 10 MG 22:13: daily. Medical tablet 10 [place] buPROPion 0 Yes 50mg QD Take [address] (WELLBUTRIN 4-20 by mouth Luke s ) 100 MG 22:13: daily. Medical tablet 10 [place] divalproex 0 Yes 500mg QD Take [address] (DEPAKOTE) 4-20 mg by [facility] 500 MG EC 22:13: mouth Medical tablet 10 nightly. [place] finasteride 2021-0 Yes 5mg QD Take [address] (PROSCAR) 5 4-20 by mouth Luke s mg tablet 22:13: daily. Medica l 10 [place] gabapentin 0 Yes 100mg Q.[id number] Take [address] (NEURONTIN) 4-20 [id number] mg by L ukes 100 MG 22:13: 3D mouth 3 Medical capsule 10 (three) Center times daily. mirtazapine Yes 7.5mg QD Take 7.[address] (REMERON) 4-20 mg by [facility] 7.5 MG 22:13: mouth Medical tablet 10 nightly. [place] sertraline Yes 100mg QD Take [address] (ZOLOFT) 4-20 mg by [facility] 100 MG 22:13: mouth Medical tablet 10 daily. [place] tamsulosin Yes .4mg QD Take 0.[address] (FLOMAX) 4-20 mg by [facility] 0.4 mg Cap 22:13: mouth Medica l 24 hr 10 daily. [place] capsule calcitrioL Yes .25ug QD Take 0.[address] (ROCALTROL) 4-20 mcg by [facility]ukes 0.25 MCG 22:13: mouth Medical capsule 10 daily. [place] cloNIDine Yes .25mg Q.[id number] Take 0.[address] HCL 4-20 [id number] mg by [facility] (CATAPRES) 22:13: 3D mouth 3 Medi titus 0.2 MG 10 (three) Center tablet times daily. amLODIPine Yes 10mg QD Take [address] (NORVASC) 4-20 by mouth [facility] 10 MG 22:13: daily. Medical tablet 10 [place] aspirin 81 0 Yes 81mg QD Take [address] MG EC 4-20 by mouth [facility] tablet 22:13: daily. Medical 10 [place] atorvastati Yes 10mg QD Take [address] n (LIPITOR) 4-20 by mouth Luke s 10 MG 22:13: daily. Medical tablet 10 [place] buPROPion 0 Yes 50mg QD Take [address] (WELLBUTRIN 4-20 by mouth Luke s ) 100 MG 22:13: daily. Medical tablet 10 [place] divalproex 0 Yes 500mg QD Take [address] (DEPAKOTE) 4-20 mg by [facility] 500 MG EC 22:13: mouth Medical tablet 10 nightly. [place] finasteride 2022-0 Yes 5mg QD Take [address] (PROSCAR) 5 4-20 by mouth Luke s mg tablet 22:13: daily. Medica l 10 [place] gabapentin 0 Yes 100mg Q.[id number] Take [address] (NEURONTIN) 4-20 [id number] mg by L ukes 100 MG 22:13: 3D mouth 3 Medical capsule 10 (three) Center times daily. mirtazapine Yes 7.5mg QD Take 7.[address] (REMERON) 4-20 mg by [facility] 7.5 MG 22:13: mouth Medical tablet 10 nightly. [place] sertraline Yes 100mg QD Take [address] (ZOLOFT) 4-20 mg by [facility] 100 MG 22:13: mouth Medical tablet 10 daily. [place] tamsulosin Yes .4mg QD Take 0.[address] (FLOMAX) 4-20 mg by [facility] 0.4 mg Cap 22:13: mouth Medica l 24 hr 10 daily. [place] capsule calcitrioL Yes .25ug QD Take 0.[address] (ROCALTROL) 4-20 mcg by [facility]ukes 0.25 MCG 22:13: mouth Medical capsule 10 daily. [place] cloNIDine Yes .25mg Q.[id number] Take 0.[address] HCL 4-20 [id number] mg by [facility] (CATAPRES) 22:13: 3D mouth 3 Medi titus 0.2 MG 10 (three) Center tablet times daily. amLODIPine Yes 10mg QD Take [address] (NORVASC) 4-20 by mouth [facility] 10 MG 22:13: daily. Medical tablet 10 [place] aspirin 81 0 Yes 81mg QD Take [address] MG EC 4-20 by mouth [facility] tablet 22:13: daily. Medical 10 [place] atorvastati 0 Yes 10mg QD Take [address] n (LIPITOR) 4-20 by mouth Luke s 10 MG 22:13: daily. Medical tablet 10 [place] buPROPion 0 Yes 50mg QD Take [address] (WELLBUTRIN 4-20 by mouth Luke s ) 100 MG 22:13: daily. Medical tablet 10 [place] divalproex 0 Yes 500mg QD Take [address] (DEPAKOTE) 4-20 mg by [facility] 500 MG EC 22:13: mouth Medical tablet 10 nightly. [place] finasteride 0 Yes 5mg QD Take [address] (PROSCAR) 5 4-20 by mouth Luke s mg tablet 22:13: daily. Medica l 10 [place] gabapentin 0 Yes 100mg Q.[id number] Take [address] (NEURONTIN) 4-20 [id number] mg by L ukes 100 MG 22:13: 3D mouth 3 Medical capsule 10 (three) Center times daily. mirtazapine Yes 7.5mg QD Take 7.[address] (REMERON) 4-20 mg by [facility] 7.5 MG 22:13: mouth Medical tablet 10 nightly. [place] sertraline Yes 100mg QD Take [address] (ZOLOFT) 4-20 mg by [facility] 100 MG 22:13: mouth Medical tablet 10 daily. [place] tamsulosin Yes .4mg QD Take 0.[address] (FLOMAX) 4-20 mg by [facility] 0.4 mg Cap 22:13: mouth Medica l 24 hr 10 daily. [place] capsule calcitrioL Yes .25ug QD Take 0.[address] (ROCALTROL) 4-20 mcg by [facility]ukes 0.25 MCG 22:13: mouth Medical capsule 10 daily. [place] cloNIDine Yes .25mg Q.[id number] Take 0.[address] HCL 4-20 [id number] mg by [facility] (CATAPRES) 22:13: 3D mouth 3 Medi titus 0.2 MG 10 (three) Center tablet times daily. amLODIPine 0 Yes 10mg QD Take [address] (NORVASC) 4-16 by mouth [facility] 10 MG 20:44: daily. Medical tablet 10 [place] aspirin 81 0 Yes 81mg QD Take [address] MG EC 4-16 by mouth [facility] tablet 20:44: daily. Medical 10 [place] atorvastati 0 Yes 10mg QD Take [address] n (LIPITOR) 4-16 by mouth Luke s 10 MG 20:44: daily. Medical tablet 10 [place] buPROPion 0 Yes 50mg QD Take [address] (WELLBUTRIN 4-16 by mouth Luke s ) 100 MG 20:44: daily. Medical tablet 10 [place] divalproex 0 Yes 500mg QD Take [address] (DEPAKOTE) 4-16 mg by [facility] 500 MG EC 20:44: mouth Medical tablet 10 nightly. [place] finasteride Yes 5mg QD Take [address] (PROSCAR) 5 4-16 by mouth Luke s mg tablet 20:44: daily. Medica l 10 [place] gabapentin 0 Yes 100mg Q.[id number] Take [address] (NEURONTIN) 4-16 [id number] mg by L ukes 100 MG 20:44: 3D mouth 3 Medical capsule 10 (three) Center times daily. mirtazapine Yes 7.5mg QD Take 7.[address] (REMERON) 4-16 mg by [facility] 7.5 MG 20:44: mouth Medical tablet 10 nightly. [place] sertraline Yes 100mg QD Take [address] (ZOLOFT) 4-16 mg by [facility] 100 MG 20:44: mouth Medical tablet 10 daily. [place] tamsulosin Yes .4mg QD Take 0.[address] (FLOMAX) 4-16 mg by [facility] 0.4 mg Cap 20:44: mouth Medica l 24 hr 10 daily. [place] capsule calcitrioL Yes .25ug QD Take 0.[address] (ROCALTROL) 4-16 mcg by [facility] 0.25 MCG 20:44: mouth Medical capsule 10 daily. [place] cloNIDine 0 Yes .25mg Q.[id number] Take 0.[address] HCL 4-16 [id number] mg by [facility] (CATAPRES) 20:44: 3D mouth 3 Medi titus 0.2 MG 10 (three) Center tablet times daily. amLODIPine 0 Yes 10mg QD Take [address] (NORVASC) 4-16 by mouth [facility] 10 MG 20:44: daily. Medical tablet 10 [place] aspirin 81 0 Yes 81mg QD Take [address] MG EC 4-16 by mouth [facility] tablet 20:44: daily. Medical 10 [place] atorvastati Yes 10mg QD Take [address] n (LIPITOR) 4-16 by mouth Luke s 10 MG 20:44: daily. Medical tablet 10 [place] buPROPion 0 Yes 50mg QD Take [address] (WELLBUTRIN 4-16 by mouth Luke s ) 100 MG 20:44: daily. Medical tablet 10 [place] divalproex 0 Yes 500mg QD Take [address] (DEPAKOTE) 4-16 mg by [facility] 500 MG EC 20:44: mouth Medical tablet 10 nightly. [place] finasteride 0 Yes 5mg QD Take [address] (PROSCAR) 5 4-16 by mouth Luke s mg tablet 20:44: daily. Medica l 10 [place] gabapentin Yes 100mg Q.[id number] Take [address] (NEURONTIN) 4-16 [id number] mg by L ukes 100 MG 20:44: 3D mouth 3 Medical capsule 10 (three) Center times daily. mirtazapine Yes 7.5mg QD Take 7.[address] (REMERON) 4-16 mg by [facility] 7.5 MG 20:44: mouth Medical tablet 10 nightly. [place] sertraline Yes 100mg QD Take [address] (ZOLOFT) 4-16 mg by [facility] 100 MG 20:44: mouth Medical tablet 10 daily. [place] tamsulosin Yes .4mg QD Take 0.[address] (FLOMAX) 4-16 mg by [facility] 0.4 mg Cap 20:44: mouth Medica l 24 hr 10 daily. [place] capsule calcitrioL 0 Yes .25ug QD Take 0.[address] (ROCALTROL) 4-16 mcg by [facility] 0.25 MCG 20:44: mouth Medical capsule 10 daily. [place] cloNIDine 0 Yes .25mg Q.[id number] Take 0.[address] HCL 4-16 [id number] mg by [facility] (CATAPRES) 20:44: 3D mouth 3 Medi titus 0.2 MG 10 (three) Center tablet times daily. amLODIPine 0 Yes 10mg QD Take [address] (NORVASC) 4-16 by mouth [facility] 10 MG 20:44: daily. Medical tablet 10 [place] aspirin 81 0 Yes 81mg QD Take [address] MG EC 4-16 by mouth [facility] tablet 20:44: daily. Medical 10 [place] atorvastati 0 Yes 10mg QD Take [address] n (LIPITOR) 4-16 by mouth Luke s 10 MG 20:44: daily. Medical tablet 10 [place] buPROPion 0 Yes 50mg QD Take [address] (WELLBUTRIN 4-16 by mouth Luke s ) 100 MG 20:44: daily. Medical tablet 10 [place] divalproex 0 Yes 500mg QD Take [address] (DEPAKOTE) 4-16 mg by [facility] 500 MG EC 20:44: mouth Medical tablet 10 nightly. [place] finasteride Yes 5mg QD Take [address] (PROSCAR) 5 4-16 by mouth Luke s mg tablet 20:44: daily. Medica l 10 [place] gabapentin Yes 100mg Q.[id number] Take [address] (NEURONTIN) 4-16 [id number] mg by L ukes 100 MG 20:44: 3D mouth 3 Medical capsule 10 (three) Center times daily. mirtazapine Yes 7.5mg QD Take 7.[address] (REMERON) 4-16 mg by [facility] 7.5 MG 20:44: mouth Medical tablet 10 nightly. [place] sertraline Yes 100mg QD Take [address] (ZOLOFT) 4-16 mg by [facility] 100 MG 20:44: mouth Medical tablet 10 daily. [place] tamsulosin Yes .4mg QD Take 0.[address] (FLOMAX) 4-16 mg by [facility] 0.4 mg Cap 20:44: mouth Medica l 24 hr 10 daily. [place] capsule calcitrioL 0 Yes .25ug QD Take 0.[address] (ROCALTROL) 4-16 mcg by [facility] 0.25 MCG 20:44: mouth Medical capsule 10 daily. [place] cloNIDine 0 Yes .25mg Q.[id number] Take 0.[address] HCL 4-16 [id number] mg by [facility] (CATAPRES) 20:44: 3D mouth 3 Medi titus 0.2 MG 10 (three) Center tablet times daily. Neurontin Neurontin Yes Jose Manuel 1 capsule Common Baum before [facility] bedtime [facility] Metoprolol Metoprolol Yes Jose Manuel TAKE ONE Common Tartrate Tartrate Baum TABLET BY S pirit MOUTH - [facility] DAY. TAKE [facility] WITH Medical METOPROLOL Center 25MG TO EQUAL TOTAL DOSE OF 75MG TWICE DAILY [place] Remeron Yes Jose Manuel 1 tablet Com mon Baum at bedtime [facility] Depakote ER Depakote ER Yes Jose Manuel not Common Baum defined [facility] Metoprolol Metoprolol Yes Jose Manuel TAKE ONE Common Tartrate Tartrate Baum TABLET BY S pirit MOUTH - [facility] DAY. TAKE [facility] WITH Medical METOPROLOL [place] 50MG TO TOTAL DOSE OF 75MG Simvastatin Simvastatin Yes Jose Manuel 1 tablet [facility] evening [facility] Zoloft Zoloft Yes Jose Manuel 1 tablet Commo n Baum [facility] Colace Colace Yes Jose Manuel 1 capsule Comm on Baum as needed [facility] Aspirin Aspirin Yes Jose Manuel 1 tablet Com mon Baum [facility] Vital Signs Vital Name Observation [...] kg Systolic blood 2022-03-13 10:31:00 114 mm[Hg] [facility] Diastolic blood 2022-03-13 10:31:00 74 mm[Hg] [facility] Heart rate 2022-03-13 10:31:00 101 /min [facility] Body temperature 2022-03-13 10:31:00 36.22 July [facility] Body height 2022-03-13 10:31:00 165.1 cm [facility] Body weight 2022-03-13 10:31:00 70.761 kg [facility] BMI 2022-03-13 10:31:00 25.96 kg/m2 [facility] Respiratory rate 2022-02-20 15:15:00 18 /min [facility] Oxygen saturation in 2022-02-20 15:15:00 97 /min [facility] Arterial blood by Medical Ce nter Pulse oximetry Systolic blood 2022-01-10 16:00:00 123 mm[Hg] [facility] Diastolic blood 2022-01-10 16:00:00 60 mm[Hg] [facility] Heart rate 2022-01-10 16:00:00 76 /min [facility] Body temperature 2022-01-10 16:00:00 36.11 July [facility] Respiratory rate 2022-01-10 16:00:00 18 /min [facility] Oxygen saturation in 2022-01-10 16:00:00 97 /min [facility] Arterial blood by Medical Ce nter Pulse oximetry Heart rate 2022-01-09 14:49:00 83 /min [facility] Respiratory rate 2022-01-09 14:49:00 18 /min [facility] Oxygen saturation in 2022-01-09 14:49:00 93 /min [facility] Arterial blood by Medical Ce nter Pulse oximetry Systolic blood 2022-01-09 13:00:00 135 mm[Hg] [facility] Diastolic blood 2022-01-09 13:00:00 69 mm[Hg] [facility] Body temperature 2022-01-09 13:00:00 36.22 July [facility] Systolic blood 2022-01-06 04:00:00 149 mm[Hg] [facility] Diastolic blood 2022-01-06 04:00:00 64 mm[Hg] [facility] Heart rate 2022-01-06 04:00:00 94 /min [facility] Body temperature 2022-01-06 04:00:00 36.39 July [facility] Respiratory rate 2022-01-06 04:00:00 18 /min [facility] Oxygen saturation in 2022-01-06 04:00:00 95 /min [facility] Arterial blood by Medical Ce nter Pulse oximetry Systolic blood 2022-01-02 03:32:00 135 mm[Hg] [facility] Diastolic blood 2022-01-02 03:32:00 65 mm[Hg] [facility] Heart rate 2022-01-02 03:32:00 96 /min [facility] Body temperature 2022-01-02 03:32:00 36.83 July [facility] Respiratory rate 2022-01-02 03:32:00 18 /min [facility] Oxygen saturation in 2022-01-02 03:32:00 95 /min [facility] Arterial blood by Medical Ce nter Pulse oximetry Systolic blood 2022-01-01 08:28:00 133 mm[Hg] [facility] Diastolic blood 2022-01-01 08:28:00 63 mm[Hg] [facility] Heart rate 2022-01-01 08:28:00 83 /min [facility] Respiratory rate 2022-01-01 07:35:00 18 /min [facility] Oxygen saturation in 2022-01-01 07:35:00 95 /min [facility] Arterial blood by Medical Ce nter Pulse oximetry Body temperature 2022-01-01 07:25:00 36.39 July [facility] Systolic blood 2021-12-31 08:17:00 140 mm[Hg] [facility] Diastolic blood 2021-12-31 08:17:00 86 mm[Hg] [facility] Heart rate 2021-12-31 08:17:00 93 /min [facility] Body temperature 2021-12-31 08:17:00 36.56 July [facility] Respiratory rate 2021-12-31 08:17:00 20 /min [facility] Oxygen saturation in 2021-12-31 08:17:00 95 /min [facility] Arterial blood by Medical Ce nter Pulse oximetry Heart rate 2021-12-30 07:37:00 83 /min [facility] Respiratory rate 2021-12-30 07:37:00 18 /min [facility] Oxygen saturation in 2021-12-30 07:37:00 95 /min [facility] Arterial blood by Medical Ce nter Pulse oximetry Systolic blood 2021-12-30 07:35:00 133 mm[Hg] [facility] Diastolic blood 2021-12-30 07:35:00 74 mm[Hg] [facility] Body temperature 2021-12-30 07:35:00 36.56 July [facility] Body height 2021-12-28 18:30:00 170.2 cm [facility] Body weight 2021-12-28 18:30:00 70.806 kg [facility] BMI 2021-12-28 18:30:00 24.45 kg/m2 [facility] Procedures Procedure Date / Time Performing Clinician Source Performed CBC W/PLT COUNT & AUTO 2022-02-20 05:24:00 Yogi Munoz [facility] BASIC METABOLIC PANEL (7) 2022-02-20 05:24:00 Yogi Munoz [facility] CBC W/PLT COUNT & AUTO 2022-02-20 05:24:00 Yogi Munoz [facility] POCT-GLUCOSE METER 2022-02-20 00:13:00 Yogi Munoz [facility] BASIC METABOLIC PANEL (7) 2022-02-19 05:09:00 Wilton Baum [facility] SARS-COV2/RT-PCR ([facility] & 2022-02-18 20:22:00 Lashawn Watts [facility] REF LABS) [facility] US RENAL COMPLETE 2022-02-18 19:43:00 Wilton Baum [facility] BASIC METABOLIC PANEL (7) 2022-02-18 03:50:00 Wilton Baum [facility] XR CHEST PA OR AP 1 VIEW 2022-02-17 15:52:00 Yogi Munoz [facility] IN DEPT [facility] BASIC METABOLIC PANEL (7) 2022-02-17 05:11:00 Wilton Baum [facility] BASIC METABOLIC PANEL (7) 2022-02-15 14:56:00 Wilton Baum [facility] CBC W/PLT COUNT & AUTO 2022-02-14 04:39:00 Lashawn Watts [facility] CBC W/PLT COUNT & AUTO 2022-02-14 04:39:00 Lashawn Watts [facility] CBC W/PLT COUNT & AUTO 2022-02-13 05:00:00 Lashawn Watts [facility] BASIC METABOLIC PANEL (7) 2022-02-13 05:00:00 Lashawn Watts [facility], [facility] CBC W/PLT COUNT & AUTO 2022-02-13 05:00:00 Lashawn Watts [facility] ANAEROBIC CULTURE 2022-02-12 14:34:[address] [facility] SURGICALLY OBTAINED 2022-02-12 14:34:18 Stefanie Lashawn BAO Thayer ukes CULTURE + GRAM STAIN [facility] ter ANAEROBIC CULTURE 2022-02-12 14:28:22 Lashawn Watts [facility] SURGICALLY OBTAINED 2022-02-12 14:28:22 Lashawn Watts [facility] L ukes CULTURE + GRAM STAIN [facility] ter FUNGUS CULTURE + SMEAR 2022-02-12 14:28:22 Lashawn Watts [facility] TISSUE EXAM 2022-02-12 14:28:00 Lashawn Watts [facility] AMPUTATION, BELOW KNEE 2022-02-12 13:40:00 Lashawn Watts [facility] WOUND CULTURE + GRAM 2022-02-11 17:56:00 Lourdes Wray [facility] BLOOD CULTURE 2022-02-11 17:53:00 Lourdes Wray [facility] CBC W/PLT COUNT & AUTO 2022-02-11 17:53:00 Lourdes Wray [facility] COMPREHENSIVE METABOLIC 2022-02-11 17:53:[address] [facility] C-REACTIVE PROTEIN 2022-02-11 17:53:00 Lourdes Wray [facility] TYPE AND SCREEN, 2022-02-11 17:53:00 Lourdes Wray [facility] AUTOMATED [facility] CBC W/PLT COUNT & AUTO 2022-02-11 17:53:00 Lourdes Wray [facility] XR LEG / TIBIA AND FIBULA 2022-02-11 17:49:00 Lourdes Wray [address] SARS-COV2/RT-PCR ([facility] & 2022-02-11 17:31:00 Lashawn Watts [facility] REF LABS) [facility] COMPREHENSIVE METABOLIC 2022-01-10 11:20:00 [facility] CBC W/PLT COUNT & AUTO 2022-01-10 11:20:00 [facility] W/PLT COUNT & AUTO 2022-01-10 11:20:00 [facility] (MANUAL DIFFERENTIAL) 2022-01-10 11:20:00 [facility] POCT-[facility]SE METER 2022-01-09 21:27:00 [facility] SODIUM, RANDOM URINE 2022-01-09 17:31:00 [facility] POTASSIUM, RANDOM URINE 2022-01-09 17:31:00 [facility] CHLORIDE, RANDOM URINE 2022-01-09 17:31:00 [facility] COMPREH[facility]IVE METABOLIC 2022-01-09 04:29:[address] [facility] CBC W/PLT COUNT & AUTO 2022-01-09 04:29:00 Josselyn Zavala [facility] MAGNESIUM 2022-01-09 04:29:00 [facility] W/PLT COUNT & AUTO 2022-01-09 04:29:00 [facility] ANTI-NUCLEAR ANTIBODY 2022-01-09 04:29:00 [facility] POCT-GLUCOSE METER 2022-01-08 21:07:00 [facility] COMPREHENSIVE METABOLIC 2022-01-08 04:49:00 [facility] CBC W/PLT COUNT & AUTO 2022-01-08 04:49:00 Lucas, Salman [facility] Center MAGNESIUM 2022-01-08 04:49:00 Lucas [facility] CBC W/PLT COUNT & AUTO 2022-01-08 04:49:00 Lucas Josselyn [facility] (MANUAL DIFFERENTIAL) 2022-01-08 04:49:00 Lucas [facility] POCT-GLUCOSE METER 2022-01-07 21:27:00 Lucas [facility] BLOOD GAS, ARTERIAL 2022-01-07 14:52:00 Jose Manuel [facility] XR CHEST 1 VIEW PORTABLE 2022-01-07 14:42:00 Shakira Richard [facility] / BEDSIDE [facility] CBC W/PLT COUNT & AUTO 2022-01-07 06:03:00 Lashawn Watts [facility] COMPREHENSIVE METABOLIC 2022-01-07 06:03:00 Cristofer [facility]asha [facility] PAN[facility] MAGNESIUM 2022-01-07 06:03:00 Lucas Josselyn [facility] CBC W/PLT COUNT & AUTO 2022-01-07 06:03:00 Lashawn Watts [facility] DI[facility]ENTIAL [facility] (MANUAL DIFFERENTIAL) 2022-01-07 06:03:00 Lashawn Watts [facility] BASIC METABOLIC PANEL (7) 2022-01-06 05:35:00 Lashawn Watts [facility] CBC W/PLT COUNT & AUTO 2022-01-06 05:35:00 Lashawn Watts [facility] DIFFERENTIAL [facility] CBC W/PLT COUNT & AUTO 2022-01-06 05:35:00 Lasahwn Watts [facility] DIFFERENTIAL [facility] (MANUAL DIFFERENTIAL) 2022-01-06 05:35:00 Lashawn Watts [facility] PREPARE LEUKO-REDUCED RBC 2022-01-05 23:54:00 Renzo Waller I [facility] CBC W/PLT COUNT & AUTO 2022-01-05 05:34:00 Lashawn Watts [facility] DIFFERENTIAL [facility] COMPREHENSIVE METABOLIC 2022-01-05 05:34:[address] [facility] MAGNESIUM 2022-01-05 05:34:00 Josselyn Zavala [facility] CBC W/PLT COUNT & AUTO 2022-01-05 05:34:00 Lashawn Watts [facility] DIFFERENTIAL [facility] (MANUAL DIFFERENTIAL) 2022-01-05 05:34:00 Lashawn Watts [facility] TRANSFUSE LEUKO-REDUCED 2022-01-04 14:15:00 Renzo Waller [facility] RED BLOOD CELLS [facility] AMPUTATION, ABOVE KNEE 2022-01-04 13:21:00 Lashawn Watts [facility] TISSUE EXAM 2022-01-04 13:10:00 Lashawn Watts [facility] CBC W/PLT COUNT & AUTO 2022-01-04 05:00:00 Lashawn Watts [facility] DI[facility] COMPREHENSIVE METABOLIC 2022-01-04 05:00:00 Josselyn Zavala [facility] MAGNESIUM 2022-01-04 05:00:00 Josselyn Zavala [facility] COMPLEMENT COMPONENT C4 2022-01-04 05:00:00 Josselyn Zavala [facility] CBC W/PLT COUNT & AUTO 2022-01-04 05:00:[address] [facility] DIFFERENTIAL [facility] PREPARE LEUKO-REDUCED RBC 2022-01-03 23:55:00 Enlly Evanssuraj guallpa [facility] SARS-COV2/RT-PCR ([facility] & 2022-01-03 20:52:00 Josselyn Zavala [facility] REF LABS) [facility] PROTHROMBIN TIME/INR 2022-01-03 16:57:00 Dianna Ratliff [facility] TYPE AND SCREEN, 2022-01-03 16:57:00 Dianna Ratliffh [facility] SODIUM, RANDOM URINE 2022-01-03 16:49:00 [facility] POTASSIUM, RANDOM URINE 2022-01-03 16:49:00 [facility] OSMOLALITY, URINE 2022-01-03 16:49:00 [facility] CREATININE, RANDOM URINE 2022-01-03 16:49:00 [facility] PROTEIN, RANDOM URINE 2022-01-03 16:49:00 [facility],ABSCESS KNEE 2022-01-03 07:00:[address] [facility] AMPUTATION,TOE 2022-01-03 07:00:00 Stefanie [facility] POCT-GLUCOSE METER 2022-01-03 06:36:00 [facility] APTT 2022-01-03 06:27:00 [facility] COMPREHENSIVE METABOLIC 2022-01-03 06:27:00 [facility] CBC W/PLT COUNT & AUTO 2022-01-03 06:27:00 Josselyn Zavala [facility] DIFFERENTIAL [facility] MAGNESIUM 2022-01-03 06:27:00 [facility] CBC W/PLT COUNT & AUTO 2022-01-03 06:27:00 [facility]elyn [facility] (MANUAL DIFFERENTIAL) 2022-01-03 06:27:00 [facility] TISSUE EXAM 2022-01-02 20:03:00 Stefanie [facility] TRANSFUSE LEUKO-REDUCED 2022-01-02 19:29:00 Stefanie [facility] RED BLOOD CELLS [facility] IRRIGATION AND 2022-01-02 19:08:00 Stefanie [facility] DEBRIDEMENT, ABSCESS, [facility] nter KNEE AMPUTATION, TOE 2022-01-02 19:08:00 Lashawn Watts [facility] HEMOGLOBIN AND HEMATOCRIT 2022-01-02 17:58:00 Lashawn Watts [facility] ABORH, MANUAL 2022-01-02 17:58:00 Izzy Greenberg [facility] METABOLIC 2022-01-02 14:58:00 Lashawn Watts [facility] TYPE AND SCREEN, 2022-01-02 14:58:00 Lashawn Watts [facility] AUTOMATED [facility] APTT 2022-01-02 12:17:00 Josselyn Zavala [facility] APTT 2022-01-02 04:07:00 Josselyn Zavala [facility] APTT 2022-01-01 19:51:00 Josselyn Zavala [facility] MR LOWER EXTREMITY JOINT 2022-01-01 18:55:00 Lashawn Watts [facility] ONLY WITHOUT IV CONTRAST [facility] LEFT APTT 2022-01-01 10:02:00 Josselyn Zavala [facility] CBC W/PLT COUNT & AUTO 2022-01-01 04:22:00 [facility] COMPREHENSIVE METABOLIC 2022-01-01 04:22:[address] [facility] CBC W/PLT COUNT & AUTO 2022-01-01 04:22:00 Josselyn Zavala [facility] MR BRAIN WITHOUT IV 2021-12-31 19:50:00 Ashkan Domínguez [facility] CONTRAST [facility] APTT 2021-12-31 09:00:00 [facility]osselyn [facility] MAGNESIUM 2021-12-31 04:11:00 Josselyn Zavala [facility] COMPREHENSIVE METABOLIC 2021-12-31 04:11:[address] [facility] CBC W/PLT COUNT & AUTO 2021-12-31 04:11:00 [facility] CBC W/PLT COUNT & AUTO 2021-12-31 04:11:00 [facility] APTT 2021-12-31 00:38:00 Lucas [facility]elyn [facility] C-REACTIVE PROTEIN 2021-12-30 15:35:00 Ratliff, Dianna [facility] 2021-12-30 15:35:00 LucasCristofer pratherlasha MockK[facility] PREALBUMIN 2021-12-30 15:35:00 Ratliff, Dianna Lacey [facility] HC ARTERIAL DOPPLER LEG 2021-12-30 12:00:00 Ratliff, Dianna Lacey [facility] XR FOOT 3 VIEWS LEFT 2021-12-30 10:37:00 Ratliff, Dianna [facility] XR ANKLE 3 VIEWS LEFT 2021-12-30 10:37:00 Ratliff, Dianna [facility] XR LEG / TIBIA AND FIBULA 2021-12-30 10:37:00 Ratliff, Dianna Lacey [facility] 2 VIEWS LEFT Medical [place] MAGNESIUM 2021-12-30 06:26:00 Lucas [facility]osselyn [facility] COMPREHENSIVE METABOLIC 2021-12-30 06:26:[address] [facility] CBC W/PLT COUNT & AUTO 2021-12-30 06:26:00 Lucas [facility] APTT 2021-12-30 06:26:00 Lucas Josselyn [facility] CBC W/PLT COUNT & AUTO 2021-12-30 06:26:00 Lucas [facility] APTT 2021-12-29 22:00:00 Lucas [facility] APTT 2021-12-29 14:11:00 Josselyn Zavala [facility] 2D ECHO W/ DOPPLER 2021-12-29 11:53:24 [facility] 2D ECHO W/ DOPPLER 2021-12-29 10:56:46 Mariely Rendon [facility] (CW/PW/COLOR) [facility] APTT 2021-12-29 05:32:00 [facility] MAGNESIUM 2021-12-29 05:32:00 [facility] COMPREHENSIVE METABOLIC 2021-12-29 05:32:[address] [facility] CBC W/PLT COUNT & AUTO 2021-12-29 05:32:00 [facility] TROPONIN I 2021-12-29 05:32:00 [facility] CBC W/PLT COUNT & AUTO 2021-12-29 05:32:00 [facility] XR CHEST 1 VIEW PORTABLE 2021-12-28 23:07:00 Josselyn Zavala [facility] General acute hospital TROPONIN I 2021-12-28 21:52:00 [facility] BLOOD CULTURE 2021-12-28 21:45:00 Josselyn Zavala [facility] URINALYSIS W/ MICROSCOPIC 2021-12-28 21:39:00 [facility] LIPID PANEL 2021-12-28 21:36:00 [facility] HEMOGLOBIN A1C 2021-12-28 21:36:00 [facility]osselyn [facility]ala [facility] COMPREHENSIVE METABOLIC 2021-12-28 21:36:[address] [facility] MAGNESIUM 2021-12-28 21:36:00 Josselyn Zavala [facility] CBC W/PLT COUNT & AUTO 2021-12-28 21:36:00 Josselyn Zavala [facility] APTT 2021-12-28 21:36:00 [facility] CBC W/PLT COUNT & AUTO 2021-12-28 21:36:00 [facility] BLOOD CULTURE 2021-12-28 21:34:00 [facility] EKG-SCANNED 2021-12-28 00:00:[address] [facility] Plan of Care Planned Activity Planned Date Details Comments Source Future Scheduled 2022-05-[address] [facility] 00:00:00 (Season Ended) [code = [facility] INFLUENZA VACCINE (Season Ended)] Future Scheduled 2022-05-[address] [facility] 00:00:00 (Season Ended) [code = [facility] INFLUENZA VACCINE (Season Ended)] Future Scheduled 2022-05-[address] [facility] 00:00:00 (Season Ended) [code = [facility] INFLUENZA VACCINE (Season Ended)] Future Scheduled 2022-05-[address] [facility] 00:00:00 (Season Ended) [code = [facility] INFLUENZA VACCINE (Season Ended)] Future Scheduled [...] Medical Ce nter VACCINE (#1)] Future Scheduled 2022-05-15 INFLUENZA VACCINE (#1) C [...] screening Medical C enter (procedure) [code = 412601467] Future Scheduled [address] [facility] 00:00:00 aneurysm screening Medical C enter (procedure) [code = 873584743] Future Scheduled [address] [facility] 00:00:00 aneurysm screening Medical C enter (procedure) [code = 735805328] Future Scheduled [address] [facility] 00:00:00 aneurysm screening Medical C enter (procedure) [code = 647182039] Future Scheduled [address] [facility] 00:00:00 aneurysm screening Medical C enter (procedure) [code = 460270920] Future Scheduled [address] [facility] 00:00:00 aneurysm screening Medical C enter (procedure) [code = 497787837] Future Scheduled [address] [facility] 00:00:00 aneurysm screening Medical C enter (procedure) [code = 784283812] Future Scheduled [address] [facility] 00:00:00 aneurysm screening Medical C enter (procedure) [code = 161306874] Future Scheduled [address] [facility] 00:00:00 aneurysm screening Medical C enter (procedure) [code = 093266650] Future Scheduled 2003 SHINGLES VACCINES (1 of [...] [facility] Future Scheduled 2003 SHINGLES VACCINES ([address] [facility] 00:00:00 2) [facility] ([facility] 2)] Future [...] [address] VACCINE (#1)] Future Scheduled 1953 COVID-19 VACCINE (#1) [facility]00 [code = COVID-[address] VACCINE (#1)] Future Scheduled 1953 CT Colonography (combo) [facility] 00:00:00 [code = CT Colonography [facility] Center (combo)] Future Scheduled 1953 Screening for malignant [facility] 00:00:00 neoplasm of colon Medical Ce nter (procedure) [code = 438356690] Future Scheduled 1953 Screening for malignant [facility] 00:00:00 neoplasm of colon Medical Ce nter (procedure) [code = 889151512] Future Scheduled 1953 Screening for malignant [facility] 00:00:00 neoplasm of colon Medical Ce nter (procedure) [code = 749277861] Future Scheduled 1953 Screening for malignant [facility] 00:00:00 neoplasm of colon Medical Ce nter (procedure) [code = 227956200] Future Scheduled 1953 Sigmoidoscopy [code = [facility] S[facility]oscopy] Medical Cent[facility] r Future Scheduled 1953 Sigmoidoscopy [code = [facility] Sigmoidoscopy] Medical Cent[facility] r Future Scheduled 1953 CT Colonography (combo) [facility] 00:00:00 [code = CT Colonography [facility] Center (combo)] Future Scheduled 1953 Screening for malignant [facility] 00:00:00 neoplasm of colon Medical Ce nter (procedure) [code = 126777112] Future Scheduled 1953 Screening for malignant [facility] 00:00:00 neoplasm of colon Medical Ce nter (procedure) [code = 004427773] Future Scheduled 1953 Screening for malignant [facility] 00:00:00 neoplasm of colon Medical Ce nter (procedure) [code = 981925749] Future Scheduled 1953 Screening for malignant [facility] 00:00:00 neoplasm of colon Medical Ce nter (procedure) [code = 321771131] Future Scheduled 1953 Sigmoidoscopy [code = [facility] S[facility]oidoscopy] Medical Cente r Future Scheduled 1953 CT Colonography (combo) [facility] 00:00:00 [code = CT Colonography [facility] (combo)] Future Scheduled 1953 Screening for malignant [facility] 00:00:00 neoplasm of colon Medical Ce nter (procedure) [code = 878944079] Future Scheduled 1953 Screening for malignant [facility] 00:00:00 neoplasm of colon Medical Ce nter (procedure) [code = 737407455] Future Scheduled 1953 Screening for malignant [facility] 00:00:00 neoplasm of colon Medical Ce nter (procedure) [code = 960181839] Future Scheduled 1953 Screening for malignant [facility] Test 00:00:00 neoplasm of colon Medical Ce nter (procedure) [code = 180185313] Future Scheduled 1953 Sigmoid[facility]] [facility] Cent[facility] Future Scheduled 1953 CT Colonography (combo) [facility] Test 00:00:00 [code = CT Colonography [facility] (combo)] Future Scheduled 1953 Screening for malignant [facility] Test 00:00:00 neoplasm of colon Medical Ce nter (procedure) [code = 259689004] Future Scheduled 1953 Screening for malignant [facility] Test 00:00:00 neoplasm of colon Medical Ce nter (procedure) [code = 945522302] Future Scheduled 1953 Screening for malignant [facility] Test 00:00:00 neoplasm of colon Medical Ce nter (procedure) [code = 032728050] Future Scheduled 1953 Screening for malignant [facility] Test 00:00:00 neoplasm of colon Medical Ce nter (procedure) [code = 532626994] Future Scheduled 1953 Sigmoidoscopy [facility]code = [facility] 00:[facility] S[facility]oscopy] Medical Cente r Future Scheduled 1953 CT Colonography (combo) [facility] Test 00:00:00 [code = CT Colonography [facility] ([facility])] Future Scheduled 1953 Screening for malignant [facility] Test 00:00:00 neoplasm of colon Medical Ce nter (procedure) [code = 640742556] Future Scheduled 1953 Screening for malignant [facility] Test 00:00:00 neoplasm of colon Medical Ce nter (procedure) [code = 896363040] Future Scheduled 1953 Screening for malignant [facility] Test 00:00:00 neoplasm of colon Medical Ce nter (procedure) [code = 000704084] Future Scheduled 1953 Screening for malignant [facility] Test 00:00:00 neoplasm of colon Medical Ce nter (procedure) [code = 729092576] Future Scheduled 1953 Sigmoidoscopy [facility]code = [facility] Test 00:[facility] S[facility]oidoscopy] Medical Cente r Future Scheduled 1953 CT Colonography (combo) [facility] Test 00:00:00 [code = CT Colonography [facility] (com[facility])] Future Scheduled 1953 Screening for malignant [facility] Test 00:00:00 neoplasm of colon Medical Ce nter (procedure) [code = 753164269] Future Scheduled 1953 Screening for malignant [facility] Test 00:00:00 neoplasm of colon Medical Ce nter (procedure) [code = 892603297] Future Scheduled 1953 Screening for malignant [facility] Test 00:00:00 neoplasm of colon Medical Ce nter (procedure) [code = 083417579] Future Scheduled 1953 Screening for malignant [facility] Test 00:00:00 neoplasm of colon Medical Ce nter (procedure) [code = 913871654] Future Scheduled 1953 Sigmoidoscopy [facility]code = [facility] 00:[facility] S[facility]oidoscopy] Medical Cente r Future Scheduled 1953 CT Colonography (combo) [facility] Test 00:00:00 [code = CT Colonography [facility] (combo)] Future Scheduled 1953 Screening for malignant [facility] Test 00:00:00 neoplasm of colon Medical Ce nter (procedure) [code = 865047748] Future Scheduled 1953 Screening for malignant [facility] Test 00:00:00 neoplasm of colon Medical Ce nter (procedure) [code = 656270420] Future Scheduled 1953 Screening for malignant [facility] Test 00:00:00 neoplasm of colon Medical Ce nter (procedure) [code = 986783074] Future Scheduled 1953 Screening for malignant [facility] Test 00:00:00 neoplasm of colon Medical Ce nter (procedure) [code = 730044906] Future Scheduled 1953 Sigmoidoscopy [facility]code [facility] 00:[facility] S[facility]oidoscopy] Medical Cente r Future Scheduled 1953 CT Colonography (combo) [facility] Test 00:00:00 [code = CT Colonography [facility] (combo)] Future Scheduled 1953 Screening for malignant [facility] Test 00:00:00 neoplasm of colon Medical Ce nter (procedure) [code = 550712524] Future Scheduled 1953 Screening for malignant [facility] Test 00:00:00 neoplasm of colon Medical Ce nter (procedure) [code = 527178018] Future Scheduled 1953 Screening for malignant [facility] Test 00:00:00 neoplasm of colon Medical Ce nter (procedure) [code = 046345327] Future Scheduled 1953 Screening for malignant [facility] Test 00:00:00 neoplasm of colon Medical Ce nter (procedure) [code = 346295881] Future Scheduled 1953 Sigmoidoscopy [facility]code [facility] 00:[facility] Sigmoidoscopy] Medical Cente r Future Scheduled 1953 CT Colonography (combo) [facility] Test 00:00:00 [code = CT Colonography [facility] (combo)] Future Scheduled 1953 Screening for malignant [facility] Test 00:00:00 neoplasm of colon Medical Ce nter (procedure) [code = 972868227] Future Scheduled 1953 Screening for malignant [facility] Test 00:00:00 neoplasm of colon Medical Ce nter (procedure) [code = 354030337] Future Scheduled 1953 Screening for malignant [facility] Test 00:00:00 neoplasm of colon Medical Ce nter (procedure) [code = 024178187] Future Scheduled 1953 Screening for malignant [facility] Test 00:00:00 neoplasm of colon Medical Ce nter (procedure) [code = 855064368] Encounters Start End Encounter Admission Attending Care Care Encounter Source Date/Time Date/Time Type Type Clinicians Facility Department ID 2022-06-12 2022-06-[address] [facility] [id number] 00:00:00 00:00:00 [facility] 2022-03-13 2022-03-[address] [facility] [id number] 10:15:00 11:01:02 Visit [facility] 2022-03-13 2022-03-[address] [facility] [id number] 10:15:00 11:01:02 Visit [facility] 2022-03-13 2022-03-[address] [facility] [id number] 00:00[facility]00 00:00:00 [facility] 2022-03-13 2022-03-[address] [facility] [id number] 00:00:00 00:00:00 Orders [facility] 2022-03-13 2022-03-[address] [facility] [id number] [facility] 00:[facility] 00:00:00 [facility] 2022-03-13 2022-03-[address] [facility] [id number] 00:00:00 00:00:00 Orders [facility] 2022-03-13 2022-03-[address] [facility] [id number] [facility] 00:00:00 [facility] 2022-02-27 2022-02-27 Outpatient EL STEFANIE, [facility] [id number] 00:00:00 00:00:00 [facility] 2022-02-21 2022-02-[address] [facility] [id number] 00:00:00 00:00:00 [facility] 2022-02-21 2022-02-[address] [facility] [id number] 00:00:00 00:00:00 [facility] 2022-02-11 2022-02-20 [place], Meorlin Resendez [facility] [id number] 17:22:00 17:42:00 Encounter Diamond Munozneyda [facility] 2022-02-11 2022-02-20 [id number] [facility] 17:22:00 17:42:00 [facility] 2022-02-11 2022-02-20 [facility] Dipti [facility] [id number] 17:22:00 17:42:00 Encounter JessezariaYogi [facility] 2022-02-12 2022-02-[address] [facility] [id number] 13:40:00 15:12:00 Event Jhony Padilla [facility] 2022-02-12 2022-02-[address] [facility] [id number] 13:40:00 15:12:00 Event Jhony Padilla [facility] 2022-02-12 2022-02-[address] [facility] [id number] 13:30:00 14:58:00 [facility] 2022-02-12 2022-02-12 Surgery Stefanie, [facility] [id number] 13:30:00 14:58:00 [facility] 2022-02-12 2022-02-[address] [facility] [id number] 00:00:00 00:00:00 [facility] 2022-02-12 2022-02-[address] [facility] [id number] 00:00:00 00:00:00 [facility] 2022-02-11 2022-02-[address] [facility] [id number] 15:45:00 16:17:11 Visit [facility] 2022-02-11 2022-02-[address] [facility] [id number] 15:45:00 16:17:11 Visit [facility] 2022-02-11 2022-02-[address] [facility] [id number] [facility] 00:[facility]00 00:00:00 [facility] 2022-02-11 2022-02-[address] [facility] [id number] [facility] 00:[facility]:00 00:00:00 [facility] 2022-02-06 2022-02-[address] [facility] [id number] 14:30:00 16:05:43 Visit [facility] 2022-02-06 2022-02-[address] [facility] [id number] 14:30:00 16:05:43 Visit [facility] 2022-02-06 2022-02-[address] [facility] [id number] 00:00:00 00:00:00 [facility] 2022-02-06 2022-02-[address] [facility] [id number] [facility] 00:[facility]:00 00:00:00 [facility] 2022-02-06 2022-02-[address] [facility] [id number] 00:00:00 00:00:00 [facility] 2022-02-06 2022-02-[address] [facility] [id number] [facility] 00:[facility]00 00:00:00 [facility] 2022-02-06 2022-02-[address] [facility] [id number] 00:00:00 00:00:00 [facility] 2022-02-04 2022-02-[address] [facility] [id number] 00:00:00 00:00:00 [facility] 2022-01-28 2022-01-[address] [facility] [id number] 00:00:00 00:00:00 [facility] 2022-01-27 2022-01-27 Emergency [id number] [place] 07:59:00 12:12:00 [facility] 2021-12-28 2022-01-10 [facility] UR Josselyn Zavala [facility] [id number] 18:01:00 17:36:00 Encounter [facility] 2021-12-28 2022-01-10 Inpatient JOSSELYN HOOKS [facility] Internal [id number] [facility] 18:01:00 17:36:00 Med 2021-12-28 2022-01-10 [facility] Josselyn Zavala [facility] [id number] 18:01:00 17:36:00 Encounter [facility] 2022-01-04 2022-01-[address] [facility] [id number] 13:34:00 15:30:00 [facility]22-01-[facility] 2022-01-[address] [facility] [id number] 13:34:00 15:30:00 Event [facility] 2022-01-04 2022-01-[address] [facility] [id number] 12:00:00 13:56:00 [facility] 2022-01-04 2022-01-[address] [facility] [id number] 12:00:00 13:56:00 [facility] 2022-01-03 2022-01-[address] [facility] [id number] 14:00:00 15:30:00 [facility] 2022-01-03 2022-01-[address] [facility] [id number] 14:00:00 15:30:00 [facility] 2022-01-02 2022-01-[address] [facility] [id number] [facility] 19:08:00 20:40:00 Event [facility] 2022-01-02 2022-01-[address] [facility] [id number] [facility] 19:08:00 20:40:00 Event [facility] 2022-01-02 2022-01-[address] [facility] [id number] 18:00:00 19:46:00 [facility] 2022-01-02 2022-01-[address] [facility] [id number] 18:00:00 19:46:00 [facility] 2022-01-02 2022-01-[address] [facility] [id number] 00:00:00 00:00:00 [facility] 2022-01-02 2022-01-[address] [facility] [id number] 00:00:00 00:00:00 [facility] 2021-12-29 2021-12-[address] [facility] [id number] [facility] 00:00:00 00:00:00 [facility] 2021-12-29 2021-12-[address] [facility] [id number] [facility] 00:00:00 00:00:00 [facility] 2021-12-28 2021-12-28 [facility] [id number] [facility] 18:01:00 23:59:00 Woody 2020-06-30 2020-06-30 [facility] [id number] [facility] 00:00:00 00:00:00 [facility] 2019-03-29 2019-03-29 [facility] [id number] Common 10:30:00 10:30:[address] [facility] 2019-03-24 2019-03-24 [facility] [id number] Common 09:58:00 09:58:[address] [facility] 2019-03-23 2019-03-23 [facility] [id number] Common 15:09:00 15:09:[address] [facility] 2018-12-28 2018-12-28 [facility] [id number] Common 11:15:00 11:15:[address] [facility] 2018-11-04 2018-11-04 [facility] [id number] Common 09:30:00 09:30:[address] [facility] 2018-09-30 2018-09-30 [facility] [id number] Common 10:45:00 10:45:[address] [facility] 2018-06-29 2018-06-29 Out[facility] [id number] Common 10:30:00 10:30:[address] [facility] 2018-05-28 2018-05-28 Out[facility] [id number] Common 10:26:00 10:26:[address] [facility] 2018-05-10 2018-05-10 [facility] [id number] Common 13:00:00 13:00:[address] [facility] 2018-05-05 2018-05-05 [facility] [id number] Common 08:31:00 08:31:[address] [facility] 2018-04-30 2018-04-30 [facility] [id number] Common 11:09:00 11:09:[address] [facility] 2018-04-15 2018-04-15 [facility] [id number] Common 16:14:00 16:14:[address] [facility] 2018-04-15 2018-04-15 [facility] [id number] Common 08:15:00 08:15:[address] [facility] 2018-02-25 2018-02-25 Out[facility] [id number] Common 14:45:00 14:45:[address] [facility] 2017-12-09 2017-12-09 [facility] [id number] Common 08:18:00 08:18:[address] [facility] 2017-12-09 2017-12-09 [facility] [id number] Common 08:15:00 08:15:[address] [employer] [address] [facility] 2017-12-09 2017-12-09 [facility] [id number] Common 08:14:00 08:14:00 [address] [employer] [address] [facility] Results Test Description Test Time Test Comments Results Result Comments Source Fungus culture + smear 2022-03-18 20:38:32 Test Item Value Reference Range Interpretation Comme nts Result (test code = 6463-4) No fungus isolated in 28 days Fungus Smear (test code = 1406) [facility] [id number] 20:38:32 Test Item Value Reference Range Interpretation Comments Result (test code = No fungus isolated in 6463-4) 28 days Fungus Smear (test No fungi seen code = 1406) [facility] [id number] 20:38:32 Test Item Value Reference Range Interpretation Comments CULTURE (BEAKER) (test No fungus isolated in code = 1095) 28 days FUNGUS SMEAR (BEAKER) No fungi seen (test code = 1406) Tissue [id number] 13:06:13 Test Item Value Reference Range Interpretation Comments Case Report (test code Surgical Pathology = 104) Report Case: [id number] Authorizing Provider: Lashawn Watts Collected: 02/12/2022 02:28 PM MD Adam Ordering Location: [facility] Med Surg 5th Floor Received: 02/17/2022 10:19 AM Pathologist: Izzy Greenberg MD Specimen: Bone, Left Femur Bone DIAGNOSIS (test code = [id number] 3220) FuZzEwMzNcZnRuYmpcdWMx IHtccnRmMVxlcGljOTYwMl beabSoPFEcnJRoX3Poqblz IZxmHH3sEO0lkAiexKQqbL VyBOCfKwSmy0djm564sBQc d5dzRREQbfxbjEi9mKewL9 4sm8L4NagnJ96rzTEcDQG4 WLGwODQmmYDdQZOaIWZ8OT RxzMXaF9rzHZKdIQ2ojylm WOjvPSwjLAWkmDW4ZRQaaT RpK2DfIHUkGHjjFNZsmbc8 ZzXiAj0qlMNjtItlRNuyLO XjFPLxRMebBAApKtImVr0Y VVdaMXECKUGRUX3GAdkiWt hZGALPEiuvWRJeCCLQU11Z RLATPQcDQY0QIAGIL68cIT eKFDSMUQVIDLFYF4WEOQFe AhkVQy1GUDDbVY3FLMDXBU 9ERUxJTkcgVFlQRSBDSEFO E1RTULrfWHZjW94cmCQttF omhFQnRB3aW2JAMKABRApA TK9BFI8UJGnzOTTzKAYDLY dVAWqVQZEGU2YuOCRRLXnU NF3ZMVfqZSO7g2imsMTxUP NzdGUxODAwMFxhbnNpXGRl MrmwchaxMJQcFXJ8htQvCF QlMMiwTCAjXUvwOi4ajAIj fKcyGbNmFLZrn5qefaQXks vwiKb9c9koOACoYwF1gPEo YDclY8praqWgfPEdRTIfVI m4oT11OOFvxM0uhVXdRQrl ksYwUgO7YMoyHUPzBkK8YF IlbOFpHAZbE5nuYOYmYQcb RLZpCWcdeIOvQNM3jKeuk1 H0mTHpvPUvjGbrHhHkNnNk ZtQLu7IyDZy0pQmhR0NbPL EtElI2yAPiKCQwXZyiKVNo IYNsvxE1mQ86TAfpibT0rT Bqw6Srz53df159eR9pkLWd UJD8UYSeGBQcrEVsNHFyZD S0FNWvoAPuI7prRKUnIR9u tfieMZztESecQDTblKY9EI VixGLwL4FpOOXbFMjzUJZk uek3FwVsOe2myJLgfTsoNZ klb1iyq9iofKUzQfu9EGGt IbAbTnarLVqqi9Tyq7kpYN Ybfg9bXTV3iDDppZtrq9D8 vTRsOLAwjMVoTYQwWP9wuX OmVPPvyV2mnydaOQNoMlAz bliiISWvlAqmbtTlMw8cvZ srFJL5CHegD1hrgI7wMvW5 PJunN4vyqQ0uLVz9UWoyKP QugNS9auE0PDRcjHAeX8Zj cK6wCFJmYR5qthh6m3mdSE U1QQyqTUVoSvC6vzO4AQPe sLUaFJUjjPmpNAwvu490AE B6JvQdGGSfb6SyR1GwlVmp N68hbOfjG98pWQTaiLyvhP 5fhLeajH8qQvBwIdZnSTss uKliIT0rIIAsI8oiiLAyAZ FfQZCmA9lkFsFsgK4llOfb UVvdcyOwXBIjCrq9VSLsjU FpDDWiSga7NRKoBSOqH41d sleiNZA4iH1ee1ytr3CmAZ ibEXH8CNIig61oXOwjoiJ0 HNJ4TB34YdmfEqY9N0drAB J9fQ== COMMENT (test code = m4neqFEuSHBpvWJ5DvLePS 3359) Gqf7hxl5QnkFRsyYJrQXym xTQbtlHwbp69oBC5rT65XS 6pPBChAcQ1OGShyfC5Bbp0 SOXjXBCucCDnZ513m2hdo5 fwxdKfpDO8fMipWXHgztvo TrH6FQzeZJLjvzwvLXx4XI rfGFIbsSM1EPRawFArP7Vm WVStXT4drar6SAE3IJzfVM XcLiR8GLMcsSMqTBTczRfu VOvax819AQM9UzPkYMXfbm SfcUjmjW3pUrVmANBGSVY4 gOWbnrHfeAnbNYU8OMBvQJ S8wHYlOZInnNOiglIexkQd tGOzviecPH8agSLgxUzwjS w7dHUxHALdfN9gE1FiLOKa bpYafLO7hQ6uMTazFHXyU5 9veXFoSUQpXoyxCIG3 CPT Code(s) (test code h5xxuMTyJRGrhTR4NzDeZP = 3357) Khk6cvp6QlmNDhoNPuDTye kQEqlmWbuv30qPC2sM96DF 0oDKAfVjP2FPEqfuL1Yar3 SFUkDBCagWKkN027u2qoq2 tyggAqqZM3iYveSEYkuswe MjF1KKngMNZscngcLIy5BA dvBGMkpFG3GMLtlRKyD9At UHCiRA8niyx6GDY3YIllXY SxHvJ5RCVpnZLdCQHfjSzu SYxcw846BXG9SfVzVGHgsn ErmPbatZ4aQkEhCGI2RPIp NTsgODgzMTFccGFyfQ== CLINICAL HISTORY (test a1vnjPPsNGUezCY6XcXjBZ code = 3356) Ado6qea0GiqWWxcTNaFAcl kYUjzkAhzg19tNQ4hW28QG 5cGTDgFbW9ACCdzxJ2Axw8 TNYhSQMglXOkN734n5tir7 hvleCllJV0vJnyXXRjxkwm YwS5GVrhNELnljyoBBb1ZH ofJUMdvOK7AZIdqWYpH5Gb UWZfGF8pnke6AEU5VOpfDZ XaFaY1XLVoiKPpKCFnyFsl XMore737EKM7GwWjKCKibq OfrPbrfP4zZnIsJRSWEAEx vRdewqElGRZbn1Z0jSRhLJ Ezz9Jws1SdVGRlwp1= SPECIMEN SOURCE (test f6qmbSQgEOGupPG5GmUnAL code = 3377) Ofc7pgw4YpuCAjfFRoKRlr yNDhanYlws08mST2nA79WH 8yZAJqBxZ8JSSlgpP4Hnq4 TJYuDWOabVOlQ379k0ddj4 hqcxNphHQ2vYzlNEOycwsa FcA5QYbrLRScauqfODs6AE vnSCBlsOG5EAItcVDnL6Ef HQPiOC5dvtp7AJC7SLvyZQ IwStR3RAPjwVOcLFPrlTql NYbzs027JSZ4WyVuXOSork BpqEpflW9wNoIvASYUOGL9 IGZlbXVyIGJvbmVccGFyfQ == GROSS DESCRIPTION (test p1zitJWhBHBbfBL2DqPeUH code = [id number]) Aoc0zhh6EytYYteSVyVRuw zKSovtBoxd11qQX0mL47ON 5zPNBoDwL6PDNbsjX0Rmz7 SJHgQYSxeNZeQ894n0nyd0 gcpnWnqXR6JMVcGAGtU9Tl SO6cKGQzkYJsV91xgOWjGC Q0MESnPEIupDUlQVGzJKP1 YHArlLScH3sxAIFgEK1jeh odHJenIGduFOUozLY2QULs mKAgW1CtOOQtSMbaMSYyoy k5RcJaQn9sbQAexCrzPYce BSXwv6mvKNGqzHBcWQK6AK brnGOxUBRdCNBaVMf0EJDr DNdsiHJeHK9lcAnpFvugzG xga5IhhDVoJKlbDVZlOKFr QRdmHNAqN2CWAGMeUAw9OT h5JjNyEJw1USreP3VXQVQe ZIR8ItDaYTlrNwP5RKq0GK ICYb6vDSm9PTdgUzBqZFD6 AjA3ULdgiMTrNZbaLoqgNE kkYTUrtUNmOKwsgkL8QXLi GWnfRDKdSiTxYG5eLd2nNB 6bwQNkEVFfWqWeU4QkOOGz L8LldzEdTQelNDKncz8fuU bfJFhlKyXiQMFnn9o1cKM4 qDBofUQ7jGPjbRzoAGgvJj 5qhFO1qL6yMQDgVGPsEECm sEMfIBVzu45zWlKeavXvWK Dmzu6zzx57zfRsiZRvHWTo OwWxt67zFUlgtPvkVVC4BT AxIXZcs35zkNW6zUAvmUXr UF6fQFameZ2hnrhcA5MwBY LcNWXnbVWnqD1ukwKhDHYe oCUqpnUabaXkfGI6fDcwye WpbzVnFU5izEvsJUO0RZLh VMY4DJHrT33lRNq4BWueWM TfM2Nsk79bPZN5tnHhRDBi YWwgdGFuLXdoaXRlLCBmYX S3jYQvocLxAamqct30bwKq lUJog9QkHdScIE7gBfVyeg UtNV11ECPaadMqm2AjxXfu luFsZNCiOEB7Qa7haWTmXH SveeXJWL4SUr7wFWRmpWTj SIOxH6IsA3aioTLzuTgkay HUMC9piqJ2AFIstVLxUFA2 MA1kkYthDFKkZ8UlQ4Jfgf H6WUMvzp7= MICROSCOPIC DESCRIPTION a0nvjAYePFNrwQC6YwHeEP (test code = 3371) Sui2caf3RybCCojHIiQPjr nDFldmMlxx06uCO7rY71BO 8wOWEjOtR5BQIwzmX6Bag2 MVYuIJTpnCWkN968r9qpi3 vsayUfnJZ7iIscFBHvstqs AmK9AJqnFKIibigaHGd5HH ccIOJhbVE0WNCrmWJjM4Lj TQLzTZ5uhev0ETB0AHoiAI RbRzM2FEHygLJcFDPjsSiq RRrtj346PTL4ZsNkPUTomr RngPcfuS4aLoEqLGLAEESO B9QBVELyxPQnzS== [id number] 13:06:13 Test Item Value Reference Range Interpretation Comments Case Report (test code Surgical Pathology = 104) Report Case: [id number] Authorizing Provider: Lashawn Watts Collected: 02/12/2022 02:28 PM MD Adam Ordering Location: [facility] Med Surg 5th Floor Received: 02/17/2022 10:19 AM Pathologist: Izzy Greenberg MD Specimen: Bone, Left Femur Bone DIAGNOSIS (test code = b2xbjYKgKGQbr3tkCNXwdT 3220) FuZzEwMzNcZnRuYmpcdWMx IHtccnRmMVxlcGljOTYwMl mrxwTvYTUrnMRwU1Laxwyf JUzvSU2rFP2xcDsafRXcuK KkXNHbJrXrk3noq013cDXz v7txICHGnafojTu6vLpsK6 9ao0P9XqjzH20clSSnNRA8 QBCfOVJatHIwSJFxHSQ9SP QnxTMjK0enZIYqLF4gmahs ZGoyZCxgKAExnEN9NFImyI KeA5FxWUHpLRiuEYUnfnh6 QcVkNe8lbSXvzNyvJRirPT JqKIFvCLiqFKFwAgPdRs2Z UZopLWHDWZXGIR0XAkrhZu rJWYHGEawjGHMbZZUUE96O LSWWCJzAPT0PBKRRE65kHO bLFPUCGPLIRGFOR6VUZTLd HovADv2TUQZmKD9XYUVTDA 9ERUxJTkcgVFlQRSBDSEFO G4MNPHkoBBIdD41feEAheU ninXLuRO0cD0SZKFENGKgD LS3EDD0VTFgnHJRqGITGVJ eECGyPQQGPN2CcSPBDKZeM EL1WKEepBKK3p9yzgYWjEH NzdGUxODAwMFxhbnNpXGRl WodmvxtpEGXxIYU2loRzQZ QbWVitLRAgBWjqIh2bcQZr xAyfFlAwJSRax2ykyaPLxr plaXz8b5rcPLApOfO5lGTk HWjxV3gegtIaiSLdCGOwFY d2zX74FANvvK0keFPcCOnk vjFpMyD1VJrmFROhHwI8MJ OqmIIoONHnC9enUVPwQZwn SGBnFUmdcEBpAUE1xXuua8 F3pNObbUIrcRhnXaFgYmEc TgEOd3XjWAo3jUycT5LmJB YzJuL8sDGsREOwHUncOPVu AMHogbF6vD13AGqwszG5bD Kfw8Otk95rt615mT2hpOQu EPN3KNCaCZJqtDMvWDToDB C0MRGliQKhO6gxGMHhIZ3g ccjmAUfoXPfaKLPggQY8KO HlxFQdW6KoEBNfBHplELIq eci0MxYvCp5hmGFbsBucEB kvo2rtq9zeiGClVyy8IBOs XmLvQsngWAuzb4Bwy5myHU Gwnv2qRTL8eQJzoXrpl9I9 cPEySZTbsNYiSVQlUT0ygO LlZBLwtW3afpvfHWUeBvFr jvqtWHCyfBzicdSpFn8lwJ goWIN5GPleZ3ijaC8qHeF2 BPqtK8naxK2oIGt2CGjzHI JunRS2kjG9FUYgvYEyJ3Qw cJ0tGRXjXZ0gdnu3l2ifKH G2ORreMVJtAgE4lzI3IMGg lUWbEFCgeXqtHGlvn066QS X2HyPnMAUfw1WtA9CfbRkr U75liAtxB11gZKNfiNbqlU 5bwFudiY0uJeRtWiCiMMga yDhmXA4rHODmJ4wmaFSdXE HaMUBbC1uhWyPijO8hbAfs KFmegfLzYCTcPeb1UAIfwN CoALJuWjo9AAZyFRAgX79g ccppVGS8bU1fu2gnh4PwWY anQWM6UBEbp75pBVatykM2 OSR3IR09MwxlSeO9F9njFV J9fQ== COMMENT (test code = s2cfjNTgSHNflBU8MtEaSI 4213) Oza6zty7FavQOyeEYvHZvo zTHlmaKhwc41vCL3pD24GR 0vJHJyNbS1LNJlquO1Ugn3 HRDiYAAgnRSsJ289v7lic0 ufxdQgeTA3fZxhVFTkoitn MuH9ZMmwJDMdcggwLVk3KG wbFABoeWA6JVWzbSArD0Em RAUpHG9jyfr9BHV7YNlfEG ZiOuP4NJKwmLYkACAwrWfn GIgmj355FUY8FvOgTTEssz UmnOuuzQ3vTgUkOHSPRSD9 eSTyrsMboDbxUXN1TRYeAK L0kZCzRCXdfDXtgfDjizDo qHBozgcjPN3abTVopZmuiN e3wZBeZSBgsJ5jB3UbEIRb bvVpgCL5qV1rNJqtHIRkW0 4smQJbRWEgYgvxFPK0 CPT Code(s) (test code y7vhvDSbRBDouYB3PhNkZP = 1076) Dep0voi8NlkUAblVJmOTpp bXWjmpGkgy83qIP8vM38GZ 6dOZWqVsO3KKZvovU3Kgn2 WDGrQMRhpFJjT087r1yjb7 dkweVnuPF2xUcpIZRsibsn QaM2YOdyHNJzekwpCQs6AD vfHVYjsUW6HDGdcARvK3Vr ONCfZZ9ibjl3SYI7XLdjYQ RyOdZ5OMGdlFBaIBXepPar PZxoi501SPG6KtDwSCRjwh WyxDbsnI6sPoFvIFX7TJAs NTsgODgzMTFccGFyfQ== CLINICAL HISTORY (test p9vmcUMuGBVfmDR5KbVcWL code = 3356) Jzb5ztv6JfaGLpgUUbTUev aWZbfuKycy65dWR6kM58OV 2lVHRaAyN8QSUvelQ8Ogm6 WDOjLFYjcPYqG082w9avg6 wbtcBvbHG9oGlpADCurhoc MpZ6CIydCECmzkckCMo5VC jyOUEtsCE0LRKspNGoX0Kj OAPiLY0auga6SAE4MOkdWH MgYmO5NAVhmJLoLWCsuNff XZrjw879FMP0WwRbKCTtfd VupOhqaY6jWuPjBJGKFXUy yOpledUyBXRon6X4gUNeKU Fsq0Oti0BlQSRuib0= SPECIMEN SOURCE (test d7arrRDzRNRgqDE4CnSmXM code = 3377) Yvd9xbf9KlwYKmaQVwLLde oNMbqsRlrt67jKR6jI46YC 6gEAQvJrA2LABcwcD7Wsq5 LJUxMNJpfCUfC830s8iag5 jjugJwaTY3oQczSWKpsqod PtT1SDibYSCfhrdtVRr0DO xnBDCgqAW8JRUjfMAqJ5Uj SFIjCX9wzjv6ZBV1EZexVN OkQoU7XEDglAGdNKNouTrb GOpwa986TZV1IvFcBGGexc FccEjfcE8dBzRdIOVDRPX4 IGZlbXVyIGJvbmVccGFyfQ == GROSS DESCRIPTION (test d1hieQJfHZAlsBJ3EqBfAU code = 2048418595) Dgc4nue1QutECumPTyDCsd fRZdouKxkt96nOJ8xH77IR 3uPJKiQiO6WUQkfxT7Vks8 RUTlLJHxdYTsB232t7hao2 saleQsuEV2JGWtJUEpI5Rl SE1cVQKkrLQwH85dxIJuPL Z7BMBmGWPvePOsHOYcYAE0 RZXxxDEbH0fcXIUwXI1dai tqUBbcCSonWHVehIW5WRUd zXQjY9RqJZCoCHwaRLYvlc q1BvGxJf6diHBifNddWSav YXVlb7kqZCQteZFgLTX2YI wygHTlBTGpUCZpOLa7SFFs AYikvPZtGL8kcCgsZwovdH fgw0WgmXWzQZfxGKVdKCJa HWsrUNCzP6IHTTVuBEq3GR l4XoSgUAs0PFzaU8GADPCd CBI2DqViFUdqMdL6TGc3IB HHLi3oFHx7XNrmUxOkJXY0 LxL8CKgbmZYgCVsiFcrlTS dfAXLkoLRvDDzfswW5ULIv DOfzVSKsPiAlNS4aTb5uPI 6bsDVzODFaLuIoP3MkONQh Z9XgeqXjFBkiOVTwvg4omB znMXsrVfIbUTHnf8v1sEV2 bCRblPZ2aUVzvTkcEDgwJo 1ppMN6hM9hFIDuFEFgYLXc gZWcQIYzq52zUcCrpjUhRL Iqxc8zpv60uiJtzKHgZDOb HfHwd99eTGyjkVprLZI7AQ LlDYLss06nkMB8bGTenXRr BR7dKAxtjP8xrhnoR3UbXV KaNIJsvNOaiD8zevWfUEAs vCVuilSfdfHqcEJ9iOecgy QujkRqTE2zyFqwDEO8QZYx XEU8LEMnC33hARm0UUxkIN GgJ9Omd86bFGC5jqOcSOAt YWwgdGFuLXdoaXRlLCBmYX Z5lYDjlmZfYagbro41luWm lJCvt2OwUoZyQI8aLjBavl JwMP19CFVogcTxf2PkmGky ckSqEBSkMGC5Dn6lkYPxMS InkvHUMT8JDr6sNWZuiAPv SGGvC2OnB5sjhXYqeQtncr BDAT2hgsQ5JDRhuTQsINE8 MZ7pfEoeJBHeE4OlE9Zybq I1WHKwrx6= MICROSCOPIC DESCRIPTION j3iyxRBiFVZdiAL6RhPbHS (test code = 3371) Auj4ewc4LqnWKcpYKjPIue nJRpmvUqwf51wQU0sO01EQ 2hQPRcZsN6STHkddD5Zss0 ETRnXWVlzBOdH731h1ijx4 kvffQesKM0uMtuBPSrtmmq QzF4AYcyAOXfdqbtUHf0RA rzESExpQA9JEIwnGKpK2Nf BFZbVH2jjsp6QQK0BOgfCD QbLkB2YTKhnIFsMPTwdFps XHcjp813OCL8TiAxNAGtiv IlpNhruS6uQeBxRPGRJMMH Y4ZHOSNgmNAytT== [facility] [id number] 13:06:13Surgical Pathology Report Case: [id number] Authorizing Provider: Lashawn Watts Collected: 02/12/2022 02:28 PM MD Adam Ordering Location: [facility] Surg 5th Floor Received: 02/17/2022 10:19 AM Pathologist: Izzy Greenberg MD Specimen: Bone, Left Femur Bone BONE, LEFT FEMUR, BIOPSY:- BONE FRAGMENTATION, INTER-TRABECULAR FIBROSIS AND REMODELING TYPE CHANGES (see comment)- SUTURE GRANULOMA- NEGATIVE FOR MALIGNANCY Signing Pathologist Direct Phone Line: [phone] signed by Izzy Greenberg MD on 02/25/2022 at 1:06 PMFeatures suggest fracture repair or chronic osteomyelitis. Clinical correlation is recommended.77248; 16185Zwoxtienev vascular disease Left femur boneA. Bone.Received in formalin labeled with the patient's information and labeled "bone" is a soliz-brown piece of bone with attached soft tissue and hemorrhage. The specimen measures in curvilinear length 5 x 2.5 x 1 cm. It is sectioned to reveal soliz-white, fatty and fibrous cut surface. Huc Ob sections are submitted in A1-A3., after decalcification BH/ew PERFORMEDBASIC METABOLIC [id number] 06:32:32 Test Item Value Reference Range Interpretation [...] S NOT APPLICABLE FOR DIALYSIS PATIEN TS. Research Pharmacist ID - [id number] ID - [id number] ID - [id number] ID - RRGY59Vnulbeyq ID - QJMY77Taaujmaf ID - RRWE34Hwwzeowu ID - IWLZ44Ypwxwuex ID - OAFW10Vtckopyf ID - FWVY24Aaqyprck ID - AKLH71Kxfgrmce ID - GTTS52Hvtpndgb ID - JFJS93Emdomtqj ID - [id number] W/PLT COUNT & AUTO [id number] 06:26:33 Test Item Value Reference Range Interpretation [...] PERCENT (BEAKER) (test code = 2801) POC-Glucose [id number] 00:24:00 Test Item Value Reference Range Interpretation Comments POC-Glucose Meter (test 110 mg/dL 70-110 : TE STED AT [facility] code = 1538) [address] [place] [address]: Research Pharmacist/Techni yadi ID = [id number] for Tayla Fernandez Lab Interpretation (test Normal code = 05339-9) [facility] [id number] 00:24:00 Test Item Value Reference Range Interpretation Comments POC-Glucose Meter (test 110 mg/dL 70-110 : TE STED AT [facility] code = 1538) [address] [address]: Research Pharmacist/Techni yadi ID = [id number] for Tayla Fernandez Lab Interpretation (test Normal code = 55100-6) [facility]-GLUCOSE [id number] 00:24:00 Test Item Value Reference Range Interpretation Comments POC-GLUCOSE METER 110 mg/dL 70-110 : TESTED A T [facility] 1317 (BEAKER) (test code [facility], = 1538) [place] [address]: Research Pharmacist/Techni yadi ID = [id number] for Tayla Sanders BASIC METABOLIC [id number] 05:58:29 Test Item Value Reference Range Interpretation [...] S NOT APPLICABLE FOR DIALYSIS PATIEN TS. Research Pharmacist ID - LITOOperator ID - LITOOperator ID - LITOOperator ID - LITOOperator ID - LITOOperator ID - LITOOperator ID - LITOOperator ID - LITOOperator ID - LITOOperator ID - LITOOperator ID - LITOOperator ID - LITOOperator ID - LITOU/S, RENAL, [id number] 03:10:00Reason for exam:->n[facility] 1955 Sex: MFINAL [...] disease. There is no hydronephrosis. Signed: Jamila Marieeeport Verified Date/Time: 02/19/2022 03:10:21 SARS-CoV2/RT-PCR (Asymptomatic ONLY)2022-02-18 21:23:23 Test Item Value Reference Interpretation Comments Range SARS-COV2/RT-PCR Negative Negative The SARS-Co V-2 (test code = target nucleic 34715-1) acids are not detected in thi s [...] revoked sooner. Fact Sheet for Healthcare Providers: https://www.[employer]/Documents/Xp ert%20Xpress%20SAR S%20CoV-2/Fact%20S heets/302-3802%20S ARS-COV-2%20HEALTH CARE%20PROVIDERS%2 0FACT%20SHEET.pdf Fact Sheet for Healthcare Patients: https://www.[employer]/Documents/Xp ert%20Xpress%20SAR S%20CoV-2/Fact%20S heets/302-3801%20S ARS-COV-2%20PATIEN T%20FACT%20SHEET.p df Lab Interpretation Normal (test code = 39782-5) [facility]2022-02-18 21:23:23 Test Item Value Reference Interpretation Comments Range SARS-COV2/RT-PCR Negative Negative The SARS-Co V-2 (test code = target nucleic 77807-3) acids are not detected in thi s [...] revoked sooner. Fact Sheet for Healthcare Providers: https://www.[employer]/Documents/Xp ert%20Xpress%20SAR S%20CoV-2/Fact%20S heets/302-3802%20S ARS-COV-2%20HEALTH CARE%20PROVIDERS%2 0FACT%20SHEET.pdf Fact Sheet for Healthcare Patients: https://www.[employer]/Documents/Xp ert%20Xpress%20SAR S%20CoV-2/Fact%20S heets/302-3801%20S ARS-COV-2%20PATIEN T%20FACT%20SHEET.p df Lab Interpretation Normal (test code = 81214-2) [facility])2022-02-18 21:23:23 Test Item Value Reference Range Interpretation Comments SARS-COV2/RT-PCR Negative Negative The SARS-Co V-2 target (test code = nucleic acids a re not 7767548) detected in thi s specimen. Negative result [...] revoked sooner. Fact Sheet for Healthcare Providers: https://www.[employer] m/Documents/Xpert%20Xpress%20SARS%20CoV-2/Fact%20Sheets/3023802%01XHBL-XHI-9%20 HEALTHCARE%20PROVIDERS%20FACT%20SHEET.pdf Fact Sheet for Healthcare Patients: https://www.[employer]/Documents/Xpert%20Xp ress%20SARS%20CoV-2/Fact%20Sheets/3023801%50YVLQ-WUK-7%20PATIENT%20FACT%20SHEET .pdfBALAKE [facility] METABOLIC [id number] 06:35:26 Test Item Value Reference Range Interpretation [...] S NOT APPLICABLE FOR DIALYSIS PATIEN TS. Research Pharmacist ID - [id number] ID - [id number] ID - [id number] ID - [id number] ID - CNMLRLEOE648Tnpqspvq ID - YUKEVWQKG954Nkvrhztg ID - BIAPRCZQN428Zjqrahvt ID - WNNIZQDKQ148Qnnscyhv ID - CTTJFRFRW872Uczpuzke ID - BAPKMKVPG242Oxtnpvyb ID - MIIIYMIBW727Uccgrxuc ID - HHJPBWDVH732Olorkvkw ID - [id number], CHEST, PA OR AP, 1 [id number] 16:28:00VAT/Infusion Therapy Nurse to Call Radiology Department when patient is readyReason for exam:->Antibiotics greater than 7 days [facility] : 1955 Sex: MFINAL [...] evidence of acute cardiopulmonary disease. Signed: Flor Sharifeport Verified Date/Time: 02/17/2022 16:28:21 Reading Location: [facility] Radiology Reading Room BASIC METABOLIC [id number] 06:49:08 Test Item Value Reference Range Interpretation [...] S NOT APPLICABLE FOR DIALYSIS PATIEN TS. Research Pharmacist ID - [id number] ID - [id number] ID - IENY28Rjpfagrh ID - NTOE83Tsebvtyl ID - WAGS75Jxbbxpxn ID - LCKU20Tktmyfyk ID - UFNA84Drowarge ID - XXMU17Xmzwoher ID - DSENSONOperator ID - DSENSONOperator ID - DSENSONOperator ID - DSENSONOperator ID - DSENSONBLOOD [id number] 19:02:29 Test Item Value Reference Range Interpretation Comments CULTURE (BEAKER) (test No growth in 5 days code = 1095) BLOOD [id number] 19:02:29 Test Item Value Reference Range Interpretation Comments CULTURE (BEAKER) (test No growth in 5 days code = 1095) BASIC METABOLIC [id number] 15:25:26 Test Item Value Reference Range Interpretation [...] S NOT APPLICABLE FOR DIALYSIS PATIEN TS. Research Pharmacist ID - LITOOperator ID - LITOOperator ID - LITOOperator ID - LITOOperator ID - LITOOperator ID - LITOOperator ID - LITOOperator ID - LITOOperator ID - LITOOperator ID - LITOOperator ID - LITOOperator ID - LITOOperator ID - JOSSY ANAEROBIC [id number] 13:12:43 Test Item Value Reference Range Interpretation Comments CULTURE (BEAKER) (test No anaerobes isolated code = 1095) Anaerobic [id number] 13:11:59 Test Item Value Reference Range Interpretation Comments Result (test code = No anaerobes isolated 6463-4) [facility] [id number] 13:11:59 Test Item Value Reference Range Interpretation Comments Result (test code = No anaerobes isolated 6463-4) [facility] [id number] 13:11:59 Test Item Value Reference Range Interpretation Comments CULTURE (BEAKER) (test No anaerobes isolated code = 1095) Surgically obtained culture + gram [id number] 10:40:18 Test Item Value Reference Range Interpretation Comments Result (test code = 6463-4) No growth Gram Stain Result (test No organisms seen code = 1123) [facility] gram [id number] 10:40:18 Test Item Value Reference Range Interpretation Comments Result (test code = 6463-4) No growth Gram Stain Result (test No organisms seen code = 1123) [facility] + GRAM [id number] 10:40:18 Test Item Value Reference Range Interpretation Comments CULTURE (BEAKER) (test No growth code = 1095) GRAM STAIN RESULT <1+ White blood cells (BEAKER) (test code = seen 1123) GRAM STAIN RESULT No organisms seen (BEAKER) (test code = 51326) SURGICALLY OBTAINED CULTURE + GRAM [id number] 10:39:44 Test Item Value Reference Range Interpretation Comments CULTURE (BEAKER) (test No growth code = 1095) GRAM STAIN RESULT No White blood cells (BEAKER) (test code = seen 1123) GRAM STAIN RESULT No organisms seen (BEAKER) (test code = 75843) CBC W/PLT COUNT & AUTO [id number] 06:20:13 Test Item Value Reference Range Interpretation [...] code = 2801) WOUND CULTURE + GRAM [id number] 11:29:11 Test Item Value Reference Range Interpretation [...] gram negative (BEAKER) (test code rods = 244083) <1+ Skin floraBASIC METABOLIC [id number] 06:35:58 Test Item Value Reference Range Interpretation [...] S NOT APPLICABLE FOR DIALYSIS PATIEN TS. Research Pharmacist ID - [id number] ID - [id number] ID - YBUJ19Smhgpxef ID - EBEU80Rzsxhoaz ID - GBCJ99Kcbrnlbl ID - BPPO85Tmkxvvgn ID - OXGW02Nqfuyfxs ID - ZRXF42Wavmchee ID - KFUX28Gsqzjbpo ID - CTSQ76Bqthxxkq ID - HNLW17Htqaulqm ID - YDNO06Tjnacjio ID - [id number] W/PLT COUNT & AUTO [id number] 05:58:08 Test Item Value Reference Range Interpretation [...] (BEAKER) (test code = 2801) RAD, LEG, [id number] 19:36:00Reason for exam:->fall, pain [facility] proximal [facility]fib[facility] : 1955 Sex: MFINAL REPORT RAD, LEG, TIBIA \\T\\ FIBULA, 2 VIEWS, RIGHT HISTORY: fall, pain in proximal tibfib COMPARISON: None IMPRESSION:1.Age-indeterminate impacted and mildly angulated fractures ofthe proximal right tibial and fibular metaphyses. 2.Vascular calcifications. 3.Surgical clips project over the medial right thigh. Signed: Nicolas Mathis Verified Date/Time: 02/11/2022 19:36:16 -COV2/RT-PCR ([facility])2022-02-11 18:39:17 Test Item Value Reference Range Interpretation Comments SARS-COV2/RT-PCR Negative Negative The SARS-Co V-2 target (test code = nucleic acids a re not 1748396) detected in thi s specimen. Negative result [...] revoked sooner. Fact Sheet for Healthcare Providers: https://www.cephe[employer] m/Documents/Xpert%20Xpress%20SARS%20CoV-2/Fact%20Sheets/302-3802%23UPKN-SDO-7%20 HEALTHCARE%20PROVIDERS%20FACT%20SHEET.pdf Fact Sheet for Healthcare Patients: https://www.[employer]/Documents/Xpert%20Xp ress%20SARS%20CoV-2/Fact%20Sheets/302-3801%68RTRW-JTG-0%20PATIENT%20FACT%20SHEET .pdfCOMPREHENSIVE METABOLIC [id number] 18:20:57 Test Item Value Reference Range Interpretation [...] S NOT APPLICABLE FOR DIALYSIS PATIEN TS. Research Pharmacist ID - [id number] ID - [id number] ID - [id number] ID - [id number] ID - [id number] ID - [id number] ID - [id number] ID - [id number] ID - [id number] ID - [id number] ID - [id number] ID - [id number] ID - [id number] ID - [id number] ID - [id number] ID - [id number] ID - [id number] ID - [id number] ID - [id number]- REACTIVE [id number] 18:18:23 Test Item Value Reference Range Interpretation Comments C-REACTIVE PROTEIN (BEAKER) (test 1.04 mg/dL 0.00-0.50 H code = 676) Research Pharmacist ID - [id number] W/PLT COUNT & AUTO [id number] 18:07:01 Test Item Value Reference Range Interpretation [...] code = 2801) CT CERVICAL SPINE W/O [id number] 08:58:38 [facility] : 1955 Sex: MExam: CT [...] MD 01/27/2022 8:58 AM CDT HEAD W/O [id number] 08:54:02 [facility] : 1955 Sex: MExam: CT [...] periventricular matter changes with small old lacunar infarcts.2. There is moderate left maxillary soft tissue swelling/hematoma as well as similar mild change at the inferior left frontal region.*One or more of the following radiation dose reduction techniques was used: automated exposure control, adjustment of mA and/or KV according to patient size, and/or utilization of iterative reconstruction technique.Electronically signed by: Manpreet Madera MD 01/27/2022 8:54 AM CDT FACIAL W/O [id number] 08:53:06[facility] : 1955 Sex: MEXAMINATION:CT FACIAL [...] New Joy MD 01/27/2022 8:53 AM CDT 70095EOPGXVY METABOLIC PANEL 2022-01-22 18:04:00 Test Item Value [...] 8.9 mg/dL 8.5-10.5 N CA) CBC W/AUTO [id number] 17:54:00 Test Item Value Reference Range Interpretation [...] BA#) 0.1 x10 3/uL 0.0-0.1 N TISSUE [id number] 15:49:31Surgical Pathology Report Case: [id number] Authorizing Provider: Lashawn Watts Collected: 01/04/2022 01:10 PM MD Adam Ordering Location: [address] Med/Surg Received: 01/07/2022 09:52 AM Pathol ogist: Virgil Gaspar MD Specimen: Leg, Left, left aka LEG, LEFT, ABOVE KNEE AMPUTATION: - SEVERE CALCIFIC ATHEROSCLEROSIS - BONE MARGIN, NEGATIVE FOR ACUTE OSTEOMYELITIS - SKIN AND SOFT TISSUE MARGIN HISTOLOGICALLY VIABLE- SKIN AND SOFT TISSUE WITH MARKED ACUTE INFLAMMATION AND NECROSIS Signing Pathologist Direct Phone Line: [phone] signed by Virgil Gaspar MD on 01/16/2022 at 3:49 [id number], 28880Ztnhmskh of left leg A. 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 [...] few 965) CBC W/PLT COUNT & AUTO [id number] 12:04:20 Test Item Value Reference Range Interpretation [...] (BEAKER) (test code = 413) COMPREHENSIVE METABOLIC [id number] 12:03:23 Test Item Value Reference Range Interpretation [...] S NOT APPLICABLE FOR DIALYSIS PATIEN TS. Research Pharmacist ID - DSENSONOperator ID - DSENSONOperator ID [...] Reference Range Interpretation Comments ANTI-NUCLEAR ANTIBODY (TOMMY) (BEAKER) Negative Negative (test code = 418) Test performed by IFA method.Test performed by IFA method.POC-Glucose meter 2022-01-09 21:40:27 Test Item Value Reference Range Interpretation Comments POC-Glucose Meter (test 98 mg/dL 70-110 : TE STED AT [facility] code = 1538) [address] [place] [address]: Research Pharmacist/Techni yadi ID = [id number] for Nadya Pereira Lab Interpretation (test Normal code = 26377-5) [facility] [id number] 21:40:27 Test Item Value Reference Range Interpretation Comments POC-GLUCOSE METER 98 mg/dL 70-110 : TESTED A T [facility] 1317 (BEAKER) (test code = [address]38) [facility] [address]: Research Pharmacist/Techni yadi ID = [id number] for Juan Ayers Chloride, random [id number] 17:57:40 Test Item Value Reference Range Interpretation Comments ChlorideUr (test 46 meq/L code = 18016-8) RAMON (test code = Reference Range: No RAMON) NormalsOperator ID - [id number] [facility]Ch[facility], random [id number] 17:57:40 Test Item Value Reference Range Interpretation Comments ChlorideUr (test 46 meq/L code = 83412-2) RAMON (test code = Reference Range: No RAMON) NormalsOperator ID - [id number] [facility] HospitalCh[facility], random [id number] 17:57:40 Test Item Value Reference Range Interpretation Comments ChlorideUr (test 46 meq/L code = 69731-8) RAMON (test code = Reference Range: No RAMON) NormalsOperator ID - [id number] [facility] HospitalCHLORIDE, RANDOM [id number] 17:57:40 Test Item Value Reference Range Interpretation Comments CHLORIDE URINE (BEAKER) (test code = 46 meq/L 682) Reference Range: No NormalsOperator ID - [id number], random [id number] 17:51:25 Test Item Value Reference Range Interpretation Comments Sodium Urine (test 54 meq/L code = 2955-3) RAMON (test code = Reference Range: No RAMON) NormalsOperator ID - [id number] [facility] Hospitalodium, random itkeb7612-12-11 17:51:25 Test Item Value Reference Range Interpretation Comments Sodium Urine (test 54 meq/L code = 2955-3) RAMON (test code = Reference Range: No RAMON) NormalsOperator ID - [id number] [facility] Hospitalodium, random [id number] 17:51:25 Test Item Value Reference Range Interpretation Comments Sodium Urine (test 54 meq/L code = 2955-3) RAMON (test code = Reference Range: No RAMON) NormalsOperator ID - [id number] [facility] HospitalODIUM, RANDOM [id number] 17:51:25 Test Item Value Reference Range Interpretation Comments SODIUM URINE (BEAKER) (test code = 54 meq/L 243) Reference Range: No NormalsOperator ID - [id number], random urine 2022-01-09 17:51:24 Test Item Value Reference Range Interpretation Comments Potassium Urine 4.8 meq/L (test code = 2828-2) RAMON (test code = Reference Range: No RAMON) NormalsOperator ID - [id number] [facility] HospitalPotassium, random [id number] 17:51:24 Test Item Value Reference Range Interpretation Comments Potassium Urine 4.8 meq/L (test code = 2828-2) RAMON (test code = Reference Range: No RAMON) NormalsOperator ID - [id number] [facility] HospitalPotassium, random [id number] 17:51:24 Test Item Value Reference Range Interpretation Comments Potassium Urine 4.8 meq/L (test code = 2828-2) RAMON (test code = Reference Range: No RAMON) NormalsOperator ID - [id number] [facility] HospitalPOTASSIUM, RANDOM [id number] 17:51:24 Test Item Value Reference Range Interpretation Comments POTASSIUM URINE (BEAKER) (test code 4.8 meq/L = 195) Reference Range: No NormalsOperator ID - [id number] METABOLIC PANEL 2022-01-09 05:48:19 Test Item Value [...] S NOT APPLICABLE FOR DIALYSIS PATIEN TS. Research Pharmacist ID - NSUVAGIYAOperator ID - NSUVAGIYAOperator ID - NSUVAGIYAOperator ID - NSUVAGIYAOperatorID - NSUVAGIYAOperator ID - NSUVAGIYAOperator ID - NSUVAGIYAOperator ID - NSUVAGIYAOperator ID - NSUVAGIYAOperator ID - NSUVAGIYAOperator ID - NSUVAGIYAOperator ID - NSUVAGIYAOperator ID - NSUVAGIYAOperator ID - NSUVAGIYAOperator ID - NSUVAGIYAOperator ID - NSUVAGIYA [id number] 05:37:47 Test Item Value Reference Range Interpretation Comments MAGNESIUM (BEAKER) (test code = 2.0 mg/dL 1.5-3.0 627) Research Pharmacist ID - NSUVAGIYAOperator ID - NSUVAGIYAOperator ID - NSUVAGIYAOperator ID - NSUVAGIYACBC W/PLT COUNT & AUTO [id number] 05:08:40 Test Item Value Reference Range Interpretation [...] PERCENT (BEAKER) (test code = 2801) POC-Glucose [id number] 22:03:29 Test Item Value Reference Range Interpretation Comments POC-Glucose Meter (test 91 mg/dL 70-110 : TE STED AT [facility] code = 1538) [address] [facility] [place] [address]: Research Pharmacist/Techni yadi ID = [id number] for Osatya Rebecca Lab Interpretation (test Normal code = 25610-7) [facility] [id number] 22:03:29 Test Item Value Reference Range Interpretation Comments POC-GLUCOSE METER 91 mg/dL 70-110 : TESTED A T [facility] 1317 (BEAKER) (test code = [facility] [address] [facility], 1538) [facility] 77 [address]: Research Pharmacist/Techni yadi ID = [id number] for Oyeradha grissom, Rebecca Tissue [id number] 08:44:54 Test Item Value Reference Range Interpretation Comments Case Report (test code Surgical Pathology = 104) Report Case: [id number] Authorizing Provider: Lashawn Watts Collected: 01/02/2022 08:03 PM MD Adam Ordering Location: [address] Med/Surg Received: 01/06/2022 07:55 AM Pathologist: Virgil Gaspar MD Specimens: A) - Soft Tissue, Debridement, LEFT LEG LATERAL COMPARTMENT B) - Toe, Left, SECOND TOE LEFT FOOT DIAGNOSIS (test code = [id number] 3220) FuZzEwMzNcZnRuYmpcdWMx IHtccnRmMVxlcGljOTYwMl ihxiDdNTPahGLaW7Kdbxni JSpeWW1dFQ3amNifaFHtzS KqZZYzUmFng4tgs879yTFm b9faNMHDefvhwPf0yKchT2 9bo6R7LqrcE45gbPFqXRG0 OYErOHBceVSiUTIvBNZ5IV WisHHyD3olUCPlPI4ojyqs GYukQZloTXUugAH9SHRifF CrE1WkHGIlUCshYVNwhyi7 LeZrSn1beYYmxQnpNSfvGE DjUNCtSYduMSClAhXwNP6v J67FKCKHIAKIBAZeWKuKQc SoJIEMNBiBERVCZWmpO71A JYPDUI6WOpKfTFJGVaBNWY GUYM3MNbucSWAnfGQiYF8o J16JKIBKMTVWSPRxU0eSVI LYUHGJQ1FIQaXXIxOqVTFW A3ZMXIpSGwbSVD1RRPgXFd kgQ0JKTB7QQ7EZQ2CJMMuY LJZhpblwDBQkJr8nU9JIB8 9NVJDCEAslYBLBMXlqIM8F VVRBVElPTjpccGFyXHRhYi LiOPFCQ0dBETKCSX2WCdtQ CqquGpYZMUDFLhSlQi2JVV MJWKXOEJ6JFJGBYNsOKUvH SVNccGFyXHRhYiAtIFNLSU 1xHE9SQQNPNsMfRHhBH6VY UR4ETwoUImFHIKGUH6rKD7 lDQUxMWSBWSUFCTEVccGFy VURcSuMjIPSIYFDXVW5KQU VPTVlFTElUSVNccGFyXHRh NdSwQIBIPU8aTX2CVXRQLm WoMBdJH6LCSXvDAFhuJ9VV R6PWKo3MWgCSMLVQC2NUG8 kuMFJ8o6iizUVrDGAuoDLl ODAwMFxhbnNpXGRlZmxhbm duGOXxIMC5daVoCBQoEUnn VTZmRSoaVa5tlBThzSkfRd VeCXPuw1ubjyRMacvgyBt8 c4pnTQVsXuU0oTNxOIcjX3 tngqSpkVUaYZOwNQp2bP24 XNXyuW7csQUtRHaxgxLgRe P0QJvnTHNbUhD7DOJmcLLg FFNkX5lrICQvSUuhEFWzSS mjfBNtBWJ0uXagh3T2sIVo aGVldHtcZjBcZnMyMiBOb3 XxBTc3qQewU2UqVTQcXwF6 bHQgUGFyYWdyYXBoIEZvbn M4mZ41JZpivzH5uGVsc7Fd v42xw790tD7inEBeNAN4KW YjCJXwtSZqFUScHIJ5HVOq uKXjC6puXEOuKK8sczgkDR xcTXjyDOAfzEJ5TMWkaKEy G8AzHODiBOqoJHCnuta5Yk FsBo7yjZVemAgsNOijj7la d9hgzSDfJad4EMLiTyPeFu hsAVrys7Cju6swKERpud3a XBR6yFItaDauf2W3cMOoMB XdwPWhYEBuGC5paLKhOJHy wE2nhjsoGJZzOdByzvpcPE KelOzkztHpSi0uvLhwTPC2 MFsyO5hlnQ7gBaM6UGoyU6 becV3gEJu9VGyzBBUmjHJ7 qjQ0IREbzQLzY6DdwG3tBZ FwMU2ndwd7p4rdRUF1RSiz HNUxNtA2dxZ4TNVhvNCgGJ IuhEhoDVxgh960UCV2MrZo XCPwa1DpW2YfkLbbR62edO ksU59jKSZzwIepmN1wmXja hT3nEzWmIvOqSIspgTdrZT 1wSLWiN2hluMXgOYVrOSCs Q4quRkFpyM5ipBmeOWgyhd RhYSNhMtj1SVTvpEPlZPDq Jfi9HMJzHABpI55yerotXP F3zB3ov3ipo2KzQOipBBN7 VJCih09qZEtngzV4HGpmPn 47KnPhSpG2RQjbQLC1oI== CPT Code(s) (test code v5pzlHHpPKXrgCJ3WbFcGR = 3357) Vey4ufs9LdmIJliOWvLVye tKLxjmLqqy90oNK1tD62IR 5dBWKlClT1AMCwmuY3Iid6 DYGfQCFuxNFzF498l8psg8 kzhmZnfAK8mCkpOMZjzofz UoN9EDxgGIGjzbgpQLd0JY yvBOZzoCQ3OZAydTRzR1Rc RRGvXO6nqme0SYJ6CUppXM PzRkU4GLIybPGdVNFhnYbj OKbyp130ZZG0LgQlFDVyca PqjGqchN6qFxYgATG1VSYb FLhvDOubFLBtCRq0NtFoLV Bhcn0= CLINICAL HISTORY (test i9eeqKJvUVPdgDH4FgShXO code = 3356) Cmt5due8AzzZDkfPRcCVpf gBDcxsMmry45fSM4eH49CA 9qDFGmHlF2NTIthnN1Mxz8 XRRiIGSkbWIqE381u7dim1 flarAstKF4mYvnWTKobofc WaX1JMmdQAXssvljNEs3CP zpNDZumCI6WQKdkJVnO7Eh VTOkPY8xgnw8PTO7ASiyTH JuPbX9GTSggIFwYAXqfIre ZHzxl652NVN8DaErEKTeeh FuxRrzoY6dCuEaWMYMMN5l cmVuZSBccGFyfQ== GROSS DESCRIPTION (test l1vphCEcWPJpaAK0IrOlYO code = 3638550949) Ujk7vja2WueHKrxIWmBJoh yHQyvnYpeb49xTU1dR24WM 2aZZInGuQ5BPYikzG0Ipt0 FQZhNLKbgGUtV098v8klh3 cplxVkaYC9PIZaPUKfW4Ci ZC1iHPKcyBPoZ51rvDTcFL P2ACKcEUFxgSNrSLCxEOA8 UZWpwLSjH2zoOPQdOB5vzc utSTkqMEcyTDYzdXB4YUMl lXFeU8JlUVVxRHnsEHHrpa o7XlNvWe9qbORllVqiSLwk IATkz3hyBUEntFFkUAX1QD baeZNzVIMaPGAkCNm3PUJy MYvtqQCoBE9aeIcnYhzzsN oap8BceLLeSYkfSBRxJOHw KZnwJFAbR1DTVBKrTJI1Va Z4XPYjQHa8AEpiX4JQGXDq FBR6AyRsMXO9HlU5NCz9EQ JPBf4gKFGcSWM3EmK0STI1 TjI6PRkrwEJfWSqeKxnzVK hhLGHdzROlVMcsosN7BFBg LLbuIVPqFjGtHX7oX96xkL BUaXNzdWUsIERlYnJpZGVt FF43ZuilRLUtTyMrFDgvFx XzDjVfXGd1PSZnnK3aBp4n pCLesV2qqTXiSDjuHYBra7 0ymDF1kXJukPUiZHVwAeSz EPJzIM90MuLjoyEmonUmfs LuR5RcZGTjbJ4ogUrwaeUu KsQop2O2UFUae7R9GNDeGK nsR75yvFP2UYQrNXrkEG92 PYAxBC9dVAkoGOArs9D2RD ZuiwMjr06umqqlNQHum7Af bJldN1mqyJGcGrEkhv23ki X9hWQisYCgXZ2jRJXhyOEd XJJcBDanANWuy6ggFXhgLS duHL8tVDDry493dB2rSCar AI9crG0qrNDjMIS4zaSrD4 GzuWKbR2CouNRmahSqIcQd i44ik0j5gOAzJLphciLvcU Ycqw51crZaa0V7ZBBmv3B3 VS7dQWN3FSDyINKrjB1blF zjSADdsQTsNB2hXZGwFT1m phMvj1OfPNJxe1K9FMSuzx EjFMSasyHmz08qb6TfefWf BWFgt2qyHNBdf2U7SBE0pZ HkWVSddL79rWceLYLpxDIy YXJhbmNlLiBSZXByZXNlbn McgNb5FEBpNKL5vM6pswPh pgJlp1YfeWu8xOZkBJsiCR OcOZZ0BpsiUKL4BFJyvXSj WVQ0OJ9xTOZliinvQWHhCF SmDAL6VXhimS00fXQgLKFj MTZccGFyfXtcKlxlcGljc2 VjdCBcXGlkIDUxMDAyIFxc CECtG0XKVZJpLYY5HyY4RK KoCIi9KZfpC8FMLEIaEAP9 SkXtSfBtSyK8SGd8SIILNp 0fLAEeSTN3IBD1PZK7DgJ0 IFxcdCAyIFxcZmwgXFxmIE AcaMUxHOxgdcU2KOMlPxZm L1VxMLPvQGRiIHtzXRPqdP 9ikUGhZCJnFoCuJ4DcNUHf H7YsgeAyXPcpAMKxul1wyB luIGxhYmVsZWQgInRvZSBs KTI2SoBfmaYzZCMan5RwnF tovHsrrMUqXFIeJRGxJT66 TEJtAVjxNTnqgry5kLX8AV VwIHRvIDEuNSBjbSBpbiBk aWFtZXRlcikuIFRoZSBzdX IiojymaxQleKTgAFYzVK3m RORkNVR1r2QhcYQasfLoTH Emq6qqMXTzJCHsv6C2kJNk ZLI0mKCtGAZlx8JaaGjuEm Mgo6ufFqNCiONaSJKvcwMp qdSyrfCrX1QdgE2rwuNmuE UovPH4zRBwDTygoPHwHWUk prMug92sZCEwJOGkmXM7HJ EuMSBjbSkuIFRoZSBkaXNj q8ixnmY4wB2iPVX6aOAjVP CmcZ9evX8yKAYkCAX7sDA1 gLFxoA8tdoVpwT4zRGinHJ FcbZJzamKvxbGdMhU4qFSf j7amqyPxtoMvtgJ6NBDyXI Tbv3A6vITpHoYIZWZnRDNa nlHdzPw9ARCzMBB4sE6pgv ZnltLuj8CqmNf9eZBtXKOl vZBsEHBrH9QfU3qvkHPwzS gzhytzHQPaOd9hvO54qkij QjEsIGFydGljdWxhciBzdX YfGJCpYoVBQtucm2icsrOb rbVdj81rlIX3fDRivSJcFT UrhZGhA2hhWdASVn5WOYgz I3Lta3Vxd0WexKfyvsJgLc FrvlGpooCviF1rKNSry00h FGlkdCLmWMBkZUSjj8thtV FsLlxwYXJccGFyXHBhciBU iVhpVAGup9Vkm9UtNUBrO0 DmpqYuJNgzECW5fqFyHKQ4 cywgZWFjaCBsYWJlbGVkIH qymSbbADPcmHTvg6RxuGzq IHBhdGllbnQgaWRlbnRpZm civtFyKK3yFMTnMTFyaZJy xD3cagAga9AgJ3JcDO2CB8 D0b3hufYrbc4SwjUPsWX52 LXQioCDyEJA1ML2ayZqzGQ J9 MICROSCOPIC DESCRIPTION z6hgiCUdAVDkeJS1AtKlVF (test code = 3371) Igb8fbn0KgmNMheDYvPPdq gMBtqlWhxd73gDF8iQ30BM 4aNVLsLzI9CFHedbT6Llq3 UJOkEHBbmOLaB863n9syo4 vsquBhaBD6qKqqCQHdttts YzQ2PBeePNHyxzmmWJv9DK opYIUzyHP4AKJgsAPwG5Gd MBNdAB4dvmn8ALZ1ERpiJC NwMmL2DVNtmSJcWUHmlFko HSgzm988KNE4EtOdINChkb InlBcuqS0kZhZaXYSRYfIG aGUgbGVmdCBsYXRlcmFsIG OttPGpzqJxQQ14OONtOgFq ELBfWB84LJIss1qwOJ1hT5 Nrl0eqNKVlCIFynMEuisYp npVzuZ3scXEluEN2kL9pYA xyru0clpcwOnHgtISqi2Ox BNQrc5U1UScpTL3zEZK1jA VuZGluZyBpbnRvIHNrZWxl bFHmLB31a9AmQQCzqrDeKA EbcX5fLKQ8iGDmsBXrSDRr xkTycMH5xU4cMQjyaMyhqJ uyjl1fpC5ca8wvQ6LxTLA4 sOKvGIBbqQYcinOyp63qVD 0lJLFiENQbtbwrVEEvRl3y S0VmeNjdyiBec7nnowQxUV Zdz7NmXiNhy1jvHUUrSHZj g8A9KOUoz2L7XAU2lRMhGH ZvTAQttKvzbknvKFE1vNGu l9K0QF1gxZIsyZMmsq7qpA FyfQ== [facility] [id number] 08:44:54 Test Item Value Reference Range Interpretation Comments Case Report (test code Surgical Pathology = 104) Report Case: [id number] Authorizing Provider: Lashawn Watts Collected: 01/02/2022 08:03 PM MD Adam Ordering Location: [address] Med/Surg Received: 01/06/2022 07:55 AM Pathologist: Virgil Gaspar MD Specimens: A) - Soft Tissue, Debridement, LEFT LEG LATERAL COMPARTMENT B) - Toe, Left, SECOND TOE LEFT FOOT DIAGNOSIS (test code = [id number] 3220) FuZzEwMzNcZnRuYmpcdWMx IHtccnRmMVxlcGljOTYwMl flbaKnXCHpqWAvZ9Zaiqmc DVstSX0vPQ3wsSsbkQXhjA TnJBPtSxJqu2keh157uCIw a3viVBXVtyykfRe1iVmjY9 5ie0P9SikjG20fxSIyCQW5 WLEiVULpoFLoLZHkOHH4RD IccSFtG8vrTYBsIR9tohnk HKzbSWqmOGDvmTQ5WUTduW IiT8JjWCDjMWxyHAUchzj4 XmMpWj8yvQWutDusCHlfOM JnDEGtQJxiSGBaZaBmOF7r U43OZCOJMRKXBGCwRJnMNc DsYVVVMGwZYEGDSWqqV82P BASQDO9MBuXtQGDPQiYJED HARM6PXomgLLKizIHpMK9a E66AAEBYNIYTWFTaD3wGMX RMGDJTU7TCElELRnGmTUVB Z8QRBMmPLhdHUI9ZLLhEHk ihT7NOLQ4JO3JPP3ZCKHlO GAIqjukhLVUzWk5eI6XDX2 4ZYBBQDZnlYNIBLUwjOR3P VVRBVElPTjpccGFyXHRhYi MxYOIKK5tPNHSJBF7GDsvA PvrrWgZYWIJVHtFuOu6KEL VCXTSQUJ3VMOBDNDkMIVkJ SVNccGFyXHRhYiAtIFNLSU 2aLO7SMRBWRvLfWDxDS4ID IF4YBehMHeSJBZPIT1nHK6 lDQUxMWSBWSUFCTEVccGFy ASUqSaYqXXFKOYXQJB8BSL VPTVlFTElUSVNccGFyXHRh RcRqZMCESF1wMX8LYIBTJt RnDXiYM1TDFGaPAMpzH7SB I1XPPc8KZjVKYTUUS3MAW1 egHAS7y8ckiSUbNEZnlPJw ODAwMFxhbnNpXGRlZmxhbm soWKFySDN2ruZcNBEuUFsp BBEyECnmGh2zvJOopHulYp WiSKAcb9dlehYHiexlnOb3 r0jlXDTaIuZ4eCIvVBzuR5 wdltPxzULuDITwBMr8jK55 SXYilW9mvFSsSSirhyDsFs T9ELrgIUSvMtR6QUPtzAEs YVAhM0adXPWeVIdqPWFmFZ kgvISwJQM3eEhqt8G7fBSa aGVldHtcZjBcZnMyMiBOb3 LsEJx0tAviW4RlKDRwRqY7 bHQgUGFyYWdyYXBoIEZvbn M4mC05KCncbbI4xSZsc6Xt u92lp922fQ9imCTlSUL2KS PnJHNwzGEhPECoPIW1SZWc rJXiJ7qqWEAkEE1tnntjEV dbGNahMRVuaTB5NMCjvPUv Z8VxDNLiNOplEWNknwc7Yc YhCr0qiFVosQlqNRcnk6fx d4mlnNIgXqr0ZKNxYcWlSc djLVuax6Oxn5tgJQMvio8v YFX5zRIrdNgfr2O6tOYgTS CpjOKgNQOwOA7vdCQfCZIl lU4xynnmFGVmGiEnukyzZY ZeuWxhbwZkTe8qtRocRSI4 OFtpF3uhpR5iPiB9JNetV9 bigR3bMWy2KUtuHUWnxIV8 ytV5QQHdbLWhT6XtiJ1mYV XzFZ6ycen0s6ijIET8QDxm WGGvQiG1uuQ1WSBqrGZeFY KwmIqiLYwqo327GEL7PzDx GPFep7SoA0JmbTyoY38sgA gpA92eZJTwhPggfB4xsUhl sI8zYhCgBqGkOCqgxXyfFF 6qGKRgI7pumKSbHHOiHTZg R3peKsVgkH5igXxsJKelkx RxRFRfPfo3VLLtfPHwZWAz Bfw6FVVyAAWiP58siwgpNR Z4gO1gr7pzx4OsADtwFNZ1 LXPat41aYWcvitO5LGkbKt 75HlCwHeI4RMeaBXK3jE== CPT Code(s) (test code f2nkpIXkFSGjqJM8KkOtBV = 3357) Sgw0wgg9AfdZAvxKYqJGgx nENjsdBomg15oRH6jM48LA 2rRELpCgL2ZZQhhwR5Rha9 IYBtIOYopPLeM458w9net2 tjjiXzqSQ5pLenYWLzskzm JrY2GMgjVYXxscpbUMa9MK zeIVCwjOJ3RVLifOLkN9Yt BKQiJT4qhqt5FOB9ZFvzFV CpPjE4KNZtoWCkSGAzoSnt MYxza087UGM3WuXsQNUqhp NmkDvvkD1zXzJzFOX8TAIn XYkiWUwrBAZfTAr7PmXpGR Bhcn0= CLINICAL HISTORY (test e1nhaIEiUVNwpAA4AnCsNP code = 3356) Zrz0ffj9BnpARhgIUdRExd qCBqppXmqc43bDF0rN45NW 2zBZIfPeC9SFPfboF6Kbf7 XTNeQOKhkOAmG063o1aju2 ooedZnvQG1eKicDJUmldpt BnR8IKcgDLTcrvsjVUn0YS wbXVNlqKK4QAMyeNLtE2Xi XJAkGQ9kbin6NJK6MFahEY IlVyK0YHSrkNLmMJHpaVnv GShbq212NQG3BiDfCRYiui QbdEiskF2aBkRcDTXMOR5n cmVuZSBccGFyfQ== GROSS DESCRIPTION (test k6yxhDSvSVSggPR7GnEePZ code = [id number]) Nno4fnk3TjiKYddAJuSYis rWVitwKnlq29bAQ9qI43VB 0zITZaTaJ7KVGsbzZ6Mxx3 NSIsMPVllSMzJ148w3hij2 cyckOcgTH0WYQhXWXxZ9Bk KJ9pGPLibNDmU61ulLVoJH S6UUMmEFRbcDBnYUErMUQ4 IIMjmXUoD6aaZAUaLV7wzm nuQMnyZLfgVSOtfNY2BPDi kHHwB6PzAULrGNsuTKIskb f6RpUhVp6soUWpaBauKCwt LFOzw1heAVTnyQMnJYZ1DM otmKEuZLBjMJNrUTe6CIJk KDjohBJvIO0vvFtdIdvnjA oxc3WpnRKbZHbvYNEsUKAv QBvjJXPgL6SWDTLrOPV5Cy D6LJYrPUo3JWznW6LSOQAw VEI6MpFpJMJ3WoD6SYq8XJ OXQg2cTAXjKAT4XaE4NSS5 LzC3LPtalLIwVBjeYkxoOH utKFEhtEJnOEaayuJ9JKDr NMhkDFQrEuVnPU6aC68npB BUaXNzdWUsIERlYnJpZGVt WC51WkzkCNZcImCrDErnNd XdTsQtKOl6ZUXaeL0eJx0d pRHtmP9baCDvJNfgVWFhk1 4xrPK4eFCaoAWkAXWoEiJb AJFgRZ87QlNiwjAgitYnnz JcK2MlDYUmrK7ilViciaCt SdYid6D8WZZxv9H2CBTpKM ljC67gvUI7MFRvSHynPA61 OLEtYO1kGVvuRGLco9H9VA JknjOyd40agrngXQDsz7Kw dQnxX1wwmTYhJzIyzb39xa B5zDOrrPSoSL2lODDsnSIr VKKzAEdoWENfr5xfIHgzBY syJT9pJWTjl288bK9oOQtn YL1qiQ8lrZFgUGX0nxPuR3 MmpSWmL2XggKBozcNhNtUo n04dp6c3iUCpYTvgrdIuqX Vupc06sqZcp1R8SSEhy5C1 UL3jZEP1UUNfTRJpqN5agK llWLIouOExFO6ePZBwCP8m rfCwg2WjDKAgg3H7XVFnpb KzEDUuzdAbg88al7UhqlGr EYYql6pnFKDbk8D3CEW6hJ GlUQWwfL65oNssUAQdeRTq YXJhbmNlLiBSZXByZXNlbn FtnLu5AOKsWCG5fN3pltRr krWbr5WatXd4sBQeJUlaYY XaWCY4AvypKSD5CVZfmJUf IEL2EB4fGWVyfqigHSVoFC NkZRX6KUypdQ55wWRoEKDt MTZccGFyfXtcKlxlcGljc2 VjdCBcXGlkIDUxMDAyIFxc MOVjT2YNMVLlDJX7EyY4MW NfQAq9CYexG2CQHQQtKYU5 GqLjWkVrKvM0OQg7AZESVd 5zDGQfBHK9EFA1NEC2JxY7 IFxcdCAyIFxcZmwgXFxmIE TkvKDmZGmlhrP5YPBuAoMq M4QaXCRzOUBgEAthJMJhfX 7ubZKlOFNpSfFrL7DnEHKm H5ZuxcSpBJtgSVLuvp3kqD luIGxhYmVsZWQgInRvZSBs LXO6UpErlzWpDUSsf1TtdY cirMtetUBqAQUwRGYiYU01 JXEhREdkZHxtpsg1fYI9KK VwIHRvIDEuNSBjbSBpbiBk aWFtZXRlcikuIFRoZSBzdX LkrqzsslScqUKqJQSyRY2j COOpNQQ8f5BfzHKmeoKmYZ Qgw8mcHDAxJBCjr0Q4cWJp XSV0tUZyCHCea8ZvnUbhWq Yhe2kxHeBPkBVcMNVvqdTt umYryoYcJ0FdfW3qqzMkzB CtdSN7kMVyQYlvtEFxSXTa gvCia73aDCSxUSZofNH9GZ EuMSBjbSkuIFRoZSBkaXNj v9gnbwL1hI6tMAG9iCKfPI IjnE2zkI9lIPKfZJG8lFH2 lAYckF5bhhFeeL4nLFxwKQ MjfXOytzDefzRvCyG8zILw u7fsftUiifIrsoG9TCQeJU Mya8C5cLHeTkCISEKlRZUh vnTiwLt1NBPxISR6dH2zwc BbynIfl0UrfKg6jKMtFXRh tYRqKYYyX6ZuE1vlwTEamD orhyzcSDCfJw5hqM42gngw QjEsIGFydGljdWxhciBzdX AmNEAjTaSMMijaq9itsjDa ucPkj99njJF0dYNgnAKuKR TarIHhZ0faBdVHCd7LYVbe P5Blb5Ggi6LsbZrszvNmDd OlxzMzfhKoiY9rYJUsu93n AVszmMXuUZJyAZTpa5oxkA FsLlxwYXJccGFyXHBhciBU wHtiKUCgl8Ptf0NuPPOfF5 XdybXkEJtiNML5rtTkPUL1 cywgZWFjaCBsYWJlbGVkIH mibSrpIHQsoGOlg3YixGzl IHBhdGllbnQgaWRlbnRpZm pilqHiYO8vYAZdYNLtvIXk bE3qzxCgp5KfO7CcET8ZA3 E4u8zdwQeda4JnbQCxZJ95 KGAfvQSmMBQ7QD9moVpwNL J9 MICROSCOPIC DESCRIPTION p5yjiUPtHLBteEJ2VqHaJN (test code = 3371) Pct5gxe2FftVOfjYSvJZgv uAAiddHihp24dBQ4eW19IM 6gVACoWeY0CHKmthC4Mzu8 DZCmFZRsmEDbW745g0pjb2 ktwtSznPZ4fGdsZSGoojak ErB4EYlgQLHsscrzTQq9LU owOKTkbSE0HCGvlTGlW5Tt NMSqKS1fjll4WIX3FQsmOL BlFwJ3HZVrfIVpYXCosByj TYgya237HBT0SrPwHPKfgx CclYaljA7aYyCgCNIPTjMZ aGUgbGVmdCBsYXRlcmFsIG UdaMSjjeBtVY58MAQfEnLh TJChGF61PTCkb1vnAC8yD7 Clo9ibTRAnHYZwdZBrkcQu rnOelH7zeFClfXP3wB9wES oldk5glraaQfUztZBcb3Mj LNMuk4K0GLqbPL7pNLA4aK VuZGluZyBpbnRvIHNrZWxl xQSfMP46j8NtOQQcnsFeSR ZxbA2pBSY0fLAqvOEjXNGs qlKnaLO8lJ1cTSwxvVzmiX ysgo6hsP3yh8djS5MyMZO8 kZLmZURsnVSnwkQbe49wZX 7sINKsKSTwoaskZUYvTv4t N5MbqSxvfnUbl9moefEkRZ Gkz9WnSoAyw7clZDWlANCl u8J6SVUza3Y3YXR0pJNhGZ BfWZNuyCahqqpbOJS3uHPp q5H3BY3noTXodMRsys3ayX FyfQ== [id number] 08:44:54Surgical Pathology Report Case: [id number] Authorizing Provider: Lashawn Watts Collected: 01/02/2022 08:03 PM MD Adam Ordering Location: [address] Med/Surg Received: 01/06/2022 07:55 AM Pathologist: Virgil Gaspar MD Specimens: A) - Soft Tissue, Debridement, LEFT LEG LATERALCOMPARTMENT B) - Toe, Left, SECOND TOE LEFT FOOT A. SOFT TISSUE, LEFT LEG LATERAL COMPARTMENT, DEBRID EMENT: - SOFT TISSUE WITH NECROSIS AND MARKED INFLAMMATION, SEE MICROSCOPICB. SECOND TOE, LEFT, AMPUTATION: - PROXIMAL MARGIN, NEGATIVE FOR ACUTE OSTEOMYELITIS - SKIN AND SOFT TISSUE MARGIN HISTOLOGICALLY VIABLE - ACUTE OSTEOMYELITIS - SKIN AND SOFT TISSUE WITH GANGRENOUS NECROSIS Signing Pathologist Direct Phone Line: [phone] signed by Virgil Gaspar MD on 01/08/2022 at 8:44 [id number], [id number], [id number] A. Soft Tissue, Debridement.Received in formalin labeled "soft tissue, debridement" is an irregular portion of soft tissue (18 cm x 9 cm x 4.5 cm). The tissue is comprised of thick membranous tissue. One surface is brown-yeung and smooth. The opposite surface is yeung and brown with adherent brown soft tissue. Attached to the thickened membranous tissue is a portion of red-brown tissue with a mottled appearance. Huc Ob sections are submitted in A1-A5.B. Toe, Left.Received in formalin labeled "toe left" is a disarticulated toe (5.7 cm in length x up to1.5 cm in diameter). The superior surface of the toe is red- brown and mottled, with sloughing skin. There is an intact toenail at the distal portion (0.8 cm x 1.1 cm). The discoloration extends to underneath the toenail. The remainder of the skin is yeung and mottled. Huc Ob sections are submitted after decalcification, as follows: B1, articular surface; B2, skin and soft tissue at margin; B3-B4, cross section of entire toe from distal to proximal.This case was received in two parts, each labeled with at least two patient identifiers and the specimen source. ND/Deysi. The left lateral compartme nt debridement shows necrosis and extensive inflammation involving fibrous tissue, and extending into skeletal muscle and adipose tissue. Correlation with microbiological studies is recommended.B. Sections show necrotic skin and soft tissue with underlying acute osteomyelitis.CBC W/PLT COUNT & AUTO [id number] 06:17:01 Test Item Value Reference Range Interpretation [...] code = 1+ few 964) COMPREHENSIVE METABOLIC [id number] 06:12:56 Test Item Value Reference Range Interpretation [...] S NOT APPLICABLE FOR DIALYSIS PATIEN TS. Research Pharmacist ID - [id number] ID - [id number] ID - [id number] ID - [id number] ID - [id number] ID - [id number] ID - [id number] ID - [id number] ID - [id number] ID - [id number] ID - [id number] ID - [id number] ID - [id number] ID - [id number] ID - [id number] ID - [id number] 06:01:02 Test Item Value Reference Range Interpretation Comments MAGNESIUM (BEAKER) (test code = 2.0 mg/dL 1.5-3.0 627) Research Pharmacist ID - [id number] ID - [id number] ID - [id number] ID - [id number] POCT-GLUCOSE [id number] 21:40:38 Test Item Value Reference Range Interpretation Comments POC-GLUCOSE METER 97 mg/dL 70-110 : TESTED A T [facility] 1317 (BEKATE) (test code = [address], [address]38) [facility] [place] 77 478: Research Pharmacist/Techni yadi ID = [id number] for Tayla Sanders RAD, CHEST, 1 VIEW, NON [id number] 16:04:00Reason for exam:->abnormal breath soundsShould this be performed at the bedside?->Yes [facility] 1955 Sex: MFINAL [...] [facility] Reading Room Blood gas, [id number] 15:01:26 Test Item Value Reference Range Interpretation [...] 21 Lab Interpretation Abnormal (test code = 04756-6) [facility] [id number] 15:01:26 Test Item Value Reference Range Interpretation [...] 21 Lab Interpretation Abnormal (test code = 74224-2) [facility] [id number] 15:01:26 Test Item Value Reference Range Interpretation [...] 21 Lab Interpretation Abnormal (test code = 24825-8) [facility] gas, [id number] 15:01:26 Test Item Value Reference Range Interpretation [...] 21 Lab Interpretation Abnormal (test code = 55167-3) [facility], [id number] 15:01:26 Test Item Value Reference Range Interpretation [...] 1819) 21.0 CBC W/PLT COUNT & AUTO [id number] 07:42:56 Test Item Value Reference Range Interpretation [...] (test code Normal = 762) COMPREHENSIVE METABOLIC [id number] 07:05:25 Test Item Value Reference Range Interpretation [...] S NOT APPLICABLE FOR DIALYSIS PATIEN TS. Research Pharmacist ID - LITOOperator ID - LITOOperator ID - LITOOperator ID - LITOOperator ID - LITOOperator ID - LITOOperator ID - LITOOperator ID - LITOOperator ID - LITOOperator ID - LITOOperator ID - LITOOperator ID - LITOOperator ID - LITOOperator ID - LITOOperator ID - LITOOperator ID - [id number] 07:03:09 Test Item Value Reference Range Interpretation Comments MAGNESIUM (BEAKER) 2.0 mg/dL 1.5-3.0 Specimen moderately (test code = 627) hemolyzed Research Pharmacist ID - LITOOperator ID - LITOOperator ID [...] = 762) CBC W/PLT COUNT & AUTO [id number] 07:54:35 Test Item Value Reference Range Interpretation [...] (BEAKER) (test code = 413) BASIC METABOLIC [id number] 07:12:34 Test Item Value Reference Range Interpretation [...] S NOT APPLICABLE FOR DIALYSIS PATIEN TS. Research Pharmacist ID - DSENSONOperator ID - DSENSONOperator ID - DSENSONOperator ID - DSENSONOperator ID - DSENSONOperator ID - DSENSONOperator ID - DSENSONOperator ID - DSENSONOperator ID - DSENSONOperator ID - DSENSONOperator ID - DSENSONOperator ID - DSENSONOperator ID - DSENSONPrepare Leuko-Red [id number] 23:54:00 Test Item Value Reference Range Interpretation Comments CROSSMATCH (test code = 2264) COMPATIBLE Unit ABO (test code = A Pos 5606670) UNIT NUMBER (test code = [id number] 934-0) Status (test code = 9117075) TX_TIMEINCHART Blood Bank Product (test code RED BLOOD CELLS = 2263) PRODUCT CODE (test code = I5155O85 933-2) [facility] [id number] 23:54:00 Test Item Value Reference Range Interpretation Comments CROSSMATCH (test code = 2264) COMPATIBLE Unit ABO (test code = A Pos 4877873) UNIT NUMBER (test code = [id number] 934-0) Status (test code = 0069829) [facility] Blood Bank Product (test code RED BLOOD CELLS = 2263) PRODUCT CODE (test code = N3732T56 933-2) [facility] [id number] 23:54:00 Test Item Value Reference Range Interpretation Comments CROSSMATCH (test code = 2264) COMPATIBLE Unit ABO (test code = A Pos 8669295) UNIT NUMBER (test code = [id number] 934-0) Status (test code = 6825033) [facility] Blood Bank Product (test code RED BLOOD CELLS = 2263) PRODUCT CODE (test code = A8365E80 933-2) [facility] [id number] 23:54:00 Test Item Value Reference Range Interpretation Comments CROSSMATCH (test code = 2264) COMPATIBLE Unit ABO (test code = A Pos 4817518) UNIT NUMBER (test code = [id number] 934-0) Status (test code = 8793252) TX_TIMEINCHART Blood Bank Product (test code RED BLOOD CELLS = 2263) PRODUCT CODE (test code = P8995I88 933-2) [facility] [id number] 23:54:00 Test Item Value Reference Range Interpretation Comments CROSSMATCH (test code = 2264) COMPATIBLE Unit ABO (test code = A Pos 6593662) UNIT NUMBER (test code = [id number] 934-0) Status (test code = 6796205) [facility] Blood Bank Product (test code RED BLOOD CELLS = 2263) PRODUCT CODE (test code = A9877N24 933-2) [facility](MANUAL DIFFERENTIAL)2022-01-05 08:32:40 Test Item Value Reference [...] = 771) CBC W/PLT COUNT & AUTO [id number] 08:32:39 Test Item Value Reference Range Interpretation [...] (BEAKER) (test code = 413) COMPREHENSIVE METABOLIC [id number] 06:15:58 Test Item Value Reference Range Interpretation [...] S NOT APPLICABLE FOR DIALYSIS PATIEN TS. Research Pharmacist ID - [id number] ID - [id number] ID - [id number] ID - [id number] ID - [id number] ID - [id number] ID - [id number] ID - [id number] ID - [id number] ID - [id number] ID - OEKRNVPBZ790Meuokcue ID - [id number] ID - [id number] ID - [id number] ID - [id number] ID -[id number] 06:14:15 Test Item Value Reference Range Interpretation Comments MAGNESIUM (BEAKER) (test code = 1.9 mg/dL 1.5-3.0 627) Research Pharmacist ID - [id number] ID - [id number] ID - [id number] ID - [id number] COMPONENT [id number] 11:21:20 Test Item Value Reference Range Interpretation Comments C4 COMPLEMENT (BEAKER) (test code = 34 mg/dL 15-57 394) Research Pharmacist ID - RUBENS MCOMPLEMENT COMPONENT [id number] 11:21:20 Test Item Value Reference Range Interpretation Comments C3 COMPLEMENT (BEAKER) (test code = 134 mg/dL 82-193 393) Research Pharmacist ID - RUBENS MOsmolality, [id number] 11:18:29 Test Item Value Reference Range Interpretation Comments Osmolality, Ur (test code 218 See_Comment [ Automated message] = 2695-5) The system [employer] generated this result transmitted ref erence range: 50-1,200 mOsm/kg mOsm/kg . The reference range was not used to int erpret this result as normal/abnormal . Lab Interpretation (test Normal code = 24845-4) [facility], [id number] 11:18:29 Test Item Value Reference Range Interpretation Comments Osmolality, Ur (test code 218 See_Comment [ Automated message] = 2695-5) The system [employer] generated this result transmitted ref erence range: 50-1,200 mOsm/kg mOsm/kg . The reference range was not used to int erpret this result as normal/abnormal . Lab Interpretation (test Normal code = 22539-5) [facility], [id number] 11:18:29 Test Item Value Reference Range Interpretation Comments Osmolality, Ur (test code 218 See_Comment [ Automated message] = 2695-5) The system [employer] generated this result transmitted ref erence range: 50-1,200 mOsm/kg mOsm/kg . The reference range was not used to int erpret this result as normal/abnormal . Lab Interpretation (test Normal code = 78165-2) [facility], [id number] 11:18:29 Test Item Value Reference Range Interpretation Comments Osmolality, Ur (test code 218 See_Comment [ Automated message] = 2695-5) The system [employer] generated this result transmitted ref erence range: 50-1,200 mOsm/kg mOsm/kg . The reference range was not used to int erpret this result as normal/abnormal . Lab Interpretation (test Normal code = 36156-9) [facility], [id number] 11:18:29 Test Item Value Reference Range Interpretation Comments Osmolality, Ur (test code 218 See_Comment [ Automated message] = 2695-5) The system [employer] generated this result transmitted ref erence range: 50-1,200 mOsm/kg mOsm/kg . The reference range was not used to int erpret this result as normal/abnormal . Lab Interpretation (test Normal code = 03732-6) [facility] [id number] 11:18:29 Test Item Value Reference Range Interpretation Comments OSMOLALITY URINE 218 mOsm/kg See_Comment [Automated message] (BEAKER) (test code = The sy stem which 614) generated this result transmitted ref erence range: 50-1,200 mOsm/kg. The reference range was not used to int erpret this result as normal/abnormal . COMPREHENSIVE METABOLIC [id number] 06:07:20 Test Item Value Reference Range Interpretation [...] S NOT APPLICABLE FOR DIALYSIS PATIEN TS. Research Pharmacist ID - LITOOperator ID - LITOOperator ID - LITOOperator ID - LITOOperator ID - LITOOperator ID - LITOOperator ID - LITOOperator ID - LITOOperator ID - LITOOperator ID - LITOOperator ID - LITOOperator ID - LITOOperator ID - LITOOperator ID - LITOOperator ID - LITOOperator ID - [id number] 06:04:30 Test Item Value Reference Range Interpretation Comments MAGNESIUM (BEAKER) (test code = 1.9 mg/dL 1.5-3.0 627) Research Pharmacist ID - LITOOperator ID - LITOOperator ID - LITOOperator ID - LITOCBC W/PLT COUNT & AUTO [id number] 05:43:16 Test Item Value Reference Range Interpretation [...] SARS-Co V-2 (test code = target nucleic 23004-6) acids are not detected in thi s [...] revoked sooner. Fact Sheet for Healthcare Providers: https://www.[employer]/Documents/Xp ert%20Xpress%20SAR S%20CoV-2/Fact%20S heets/302-3802%20S ARS-COV-2%20HEALTH CARE%20PROVIDERS%2 0FACT%20SHEET.pdf Fact Sheet for Healthcare Patients: https://www.[employer]/Documents/Xp ert%20Xpress%20SAR S%20CoV-2/Fact%20S heets/302-3801%20S ARS-COV-2%20PATIEN T%20FACT%20SHEET.p df Lab Interpretation Normal (test code = 97679-2) [facility]2022-01-03 21:46:00 Test Item Value Reference Interpretation Comments Range SARS-COV2/RT-PCR Negative Negative The SARS-Co V-2 (test code = target nucleic 57917-0) acids are not detected in thi s [...] revoked sooner. Fact Sheet for Healthcare Providers: https://www.[employer]/Documents/Xp ert%20Xpress%20SAR S%20CoV-2/Fact%20S heets/302-3802%20S ARS-COV-2%20HEALTH CARE%20PROVIDERS%2 0FACT%20SHEET.pdf Fact Sheet for Healthcare Patients: https://www.[employer]/Documents/Xp ert%20Xpress%20SAR S%20CoV-2/Fact%20S heets/302-3801%20S ARS-COV-2%20PATIEN T%20FACT%20SHEET.p df Lab Interpretation Normal (test code = 64609-9) [facility]2022-01-03 21:46:00 Test Item Value Reference Interpretation Comments Range SARS-COV2/RT-PCR Negative Negative The SARS-Co V-2 (test code = target nucleic 48150-9) acids are not detected in thi s [...] revoked sooner. Fact Sheet for Healthcare Providers: https://www.[employer]/Documents/Xp ert%20Xpress%20SAR S%20CoV-2/Fact%20S heets/302-3802%20S ARS-COV-2%20HEALTH CARE%20PROVIDERS%2 0FACT%20SHEET.pdf Fact Sheet for Healthcare Patients: https://www.[employer]/Documents/Xp ert%20Xpress%20SAR S%20CoV-2/Fact%20S heets/302-3801%20S ARS-COV-2%20PATIEN T%20FACT%20SHEET.p df Lab Interpretation Normal (test code = 43644-6) [facility])2022-01-03 21:46:00 Test Item Value Reference Range Interpretation Comments SARS-COV2/RT-PCR Negative Negative The SARS-Co V-2 target (test code = nucleic acids a re not 6429849) detected in thi s specimen. Negative result s do not preclude SARS-C oV-2 infection and s hould not be used as the afsihn e basis for patient managem ent decisions. [...] revoked sooner. Fact Sheet for Healthcare Providers: https://www.[employer] m/Documents/Xpert%20Xpress%20SARS%20CoV-2/Fact%20Sheets/3023802%66LZUZ-IGL-8%20 HEALTHCARE%20PROVIDERS%20FACT%20SHEET.pdf Fact Sheet for Healthcare Patients: https://www.[employer]/Documents/Xpert%20Xp ress%20SARS%20CoV-2/Fact%20Sheets/302-3801%38KIIH-BOI-8%20PATIENT%20FACT%20SHEET .pdfProtein, random [id number] 17:23:00 Test Item Value Reference Range Interpretation Comments Protein, Urine (test code 19 mg/dL 0-14 H = 2888-6) RAMON (test code = RAMON) Research Pharmacist ID - ERINY Lab Interpretation (test Abnormal code = 40807-3) [facility] [id number] 17:23:00 Test Item Value Reference Range Interpretation Comments Protein, Urine (test code 19 mg/dL 0-14 H = 2888-6) RAMON (test code = RAMON) Research Pharmacist ID - ERINY Lab Interpretation (test Abnormal code = 68306-8) [facility] [id number] 17:23:00 Test Item Value Reference Range Interpretation Comments Protein, Urine (test code 19 mg/dL 0-14 H = 2888-6) RAMON (test code = RAMON) Research Pharmacist ID - ERINY Lab Interpretation (test Abnormal code = 04011-6) [facility], [facility] [id number] 17:23:00 Test Item Value Reference Range Interpretation Comments Protein, Urine (test code 19 mg/dL 0-14 H = 2888-6) RAMON (test code = RAMON) Research Pharmacist ID - ERINY Lab Interpretation (test Abnormal code = 71747-2) [facility], [facility] [id number] 17:23:00 Test Item Value Reference Range Interpretation Comments Protein, Urine (test code 19 mg/dL 0-14 H = 2888-6) RAMON (test code = RAMON) Research Pharmacist ID - ERINY Lab Interpretation (test Abnormal code = 49793-7) [facility] HospitalPROTEIN, RANDOM [id number] 17:23:00 Test Item Value Reference Range Interpretation Comments PROTEIN, URINE (BEAKER) (test code = 19 mg/dL 0-14 H 1569) Research Pharmacist ID - ERINYCreatinine, random [id number] 17:21:09 Test Item Value Reference Range Interpretation Comments Creatinine, Ur 32.6 mg/dL (test code = 2161-8) RAMON (test code = Reference Range: No RAMON) NormalsOperator ID - KADE [facility] HospitalCreessentia healthine, random [id number] 17:21:09 Test Item Value Reference Range Interpretation Comments Creatinine, Ur 32.6 mg/dL (test code = 216-8) RAMON (test code = Reference Range: No RAMON) NormalsOperator ID - KADE [facility]ine, random [id number] 17:21:09 Test Item Value Reference Range Interpretation Comments Creatinine, Ur 32.6 mg/dL (test code = 216-) RAMON (test code = Reference Range: No RAMON) NormalsOperator ID - KADE [facility] HospitalCreessentia healthine, random [id number] 17:21:09 Test Item Value Reference Range Interpretation Comments Creatinine, Ur 32.6 mg/dL (test code = 216-8) RAMON (test code = Reference Range: No RAMON) NormalsOperator ID - KADE [facility] HospitalCreessentia healthine, random [id number] 17:21:09 Test Item Value Reference Range Interpretation Comments Creatinine, Ur 32.6 mg/dL (test code = 216-) RAMON (test code = Reference Range: No RAMON) NormalsOperator ID - KADE [facility] HospitalCRELIFECARE MEDICAL CENTERINE, RANDOM [id number] 17:21:09 Test Item Value Reference Range Interpretation Comments CREATININE URINE (BEAKER) (test 32.6 mg/dL code = 375) Reference Range: No NormalsOperator ID - ERINYPROTHROMBIN TIME/[id number] 17:16:18 Test Item Value Reference Range Interpretation Comments PROTIME (BEAKER) 10.9 seconds 9.3-12.0 Final Infor mation (test code = 759) (Auto Outp ut) INR (BEAKER) (test 0.99 See_Comment Final Inf ormation code = 370) (Auto Output) [Automated mess age] The system [employer] generated this result transmitted ref erence range: <=5.90. The reference range was not used to int erpret this result as normal/abnormal . RECOMMENDED COUMADIN/WARFARIN INR THERAPY RANGESSTANDARD DOSE: 2.0 - 3.0 Includes: PROPHYLAXIS for venous thrombosis, systemic embolization; TREATMENT for venous thrombosis and/or pulmonary embolus.HIGH RISK: Target INR is 2.5-3.5 for patients with mechanical heart valves.Sodium, random [id number] 17:14:54 Test Item Value Reference Range Interpretation Comments Sodium Urine (test 38 meq/L code = 2955-3) RAMON (test code = Reference Range: No RAMON) NormalsOperator ID - KADE [facility] Hospitalodium, random [id number] 17:14:54 Test Item Value Reference Range Interpretation Comments Sodium Urine (test 38 meq/L code = 2955-3) RAMON (test code = Reference Range: No RAMON) NormalsOperator AL - [facility] CenterODIUM, RANDOM [id number] 17:14:54 Test Item Value Reference Range Interpretation Comments SODIUM URINE (BEAKER) (test code = 38 meq/L 243) Reference Range: No NormalsOperator ID - ERINYPotassium, random [id number] 17:14:16 Test Item Value Reference Range Interpretation Comments Potassium Urine 8.2 meq/L (test code = 2828-2) RAMON (test code = Reference Range: No RAMON) NormalsOperator ID - NEYDADEEdison [facility] HospitalPotassium, random [id number] 17:14:16 Test Item Value Reference Range Interpretation Comments Potassium Urine 8.2 meq/L (test code = 2828-2) RAMON (test code = Reference Range: No RAMON) NormalsOperator ID - KADE [facility] HospitalPOTASSIUM, RANDOM [id number] 17:14:16 Test Item Value Reference Range Interpretation Comments POTASSIUM URINE (BEAKER) (test code 8.2 meq/L = 195) Reference Range: No NormalsOperator ID - NEYDAINY(MANUAL DIFFERENTIAL)2022-01-03 07:28:53 Test Item Value Reference Range [...] = 762) CBC W/PLT COUNT & AUTO [id number] 07:28:52 Test Item Value Reference Range Interpretation [...] (BEAKER) (test code = 413) COMPREHENSIVE METABOLIC [id number] 07:24:44 Test Item Value Reference Range Interpretation [...] S NOT APPLICABLE FOR DIALYSIS PATIEN TS. Research Pharmacist ID - LITOOperator ID - LITOOperator ID - LITOOperator ID - LITOOperator ID - LITOOperator ID - LITOOperator ID - LITOOperator ID - LITOOperator ID - LITOOperator ID - LITOOperator ID - LITOOperator ID - LITOOperator ID - LITOOperator ID - LITOOperator ID - LITOOperator ID - [id number] 07:24:07 Test Item Value Reference Range Interpretation Comments MAGNESIUM (BEAKER) (test code = 1.9 mg/dL 1.5-3.0 627) Research Pharmacist ID - LITOOperator ID - LITOOperator ID - LITOOperator ID - DSENSONAPTT 2022-01-03 06:59:56 Test Item Value Reference Range Interpretation Comments PARTIAL THROMBOPLASTIN 29.8 seconds 23.0-35.0 Final Information TIME (BEAKER) (test (Auto Ou tput) code = 760) POC-Glucose [id number] 06:47:54 Test Item Value Reference Range Interpretation Comments POC-Glucose Meter (test 131 mg/dL 70-110 H : TE STED AT [facility] code = 1538) [address], [facility] [place] [address]: Research Pharmacist/Techni yadi ID = [id number] for Tayla Fernandez Lab Interpretation (test Abnormal code = 03685-3) [facility] HospitalPOCT-GLUCOSE [id number] 06:47:54 Test Item Value Reference Range Interpretation Comments POC-GLUCOSE METER 131 mg/dL 70-110 H : TESTED A T SLS 1317 (BEAKER) (test code [facility] [address], = 1538) [facility] [address]: Research Pharmacist/Techni yadi ID = [id number] for Cabrera Tayla arroyo BLOOD [id number] 01:00:51 Test Item Value Reference Range Interpretation Comments CULTURE (BEAKER) (test No growth in 5 days code = 1095) BLOOD [id number] 01:00:50 Test Item Value Reference Range Interpretation Comments CULTURE (BEAKER) (test No growth in 5 days code = 1095) HEMOGLOBIN AND [id number] 18:18:43 Test Item Value Reference Range Interpretation Comments HEMOGLOBIN (BEAKER) (test code = 6.9 GM/DL 13.0-16.8 L 410) HEMATOCRIT (BEAKER) (test code = 21.7 % 36.0-50.0 L 411) COMPREHENSIVE METABOLIC [id number] 15:28:54 Test Item Value Reference Range Interpretation [...] S NOT APPLICABLE FOR DIALYSIS PATIEN TS. Research Pharmacist ID - [id number] ID - [id number] ID - [id number] ID - [id number] ID - [id number] ID - [id number] ID - [id number] ID - [id number] ID - [id number] ID - [id number] ID - [id number] ID - [id number] ID - [id number] ID - [id number] ID - [id number] ID - [id number] ID - [id number] ID - [id number] ID - [id number] 2022-01-02 12:55:51 Test Item Value Reference Range Interpretation Comments PARTIAL THROMBOPLASTIN 76.3 seconds 23.0-35.0 H Final Information TIME (BEAKER) (test (Auto Ou tput) code = 760) MR, EXTREMITY, LOWER, JOINT, WITHOUT CONTRAST, [id number] 10:49:00Please evaluate for osteomyelitis of the second toe with possible gangrene Unlisted Reason for Exam - Click Yes and Enter Reason Below->No osteomyelitis second toe Does the patient have an implantedelectronic device?->No [facility] : 1955 Sex: MFINAL [...] Andrea Castro Verified Date/Time: 01/02/2022 10:49:14 Reading Location:[facility] C013X Ortho Consult Reading Room [id number] 04:37:09 Test Item Value Reference Range Interpretation Comments PARTIAL THROMBOPLASTIN 60.7 seconds 23.0-35.0 H Final Information TIME (BEAKER) (test (Auto Ou tput) code = 760) [id number] 20:10:33 Test Item Value Reference Range Interpretation Comments PARTIAL THROMBOPLASTIN 39.9 seconds 23.0-35.0 H Final Information TIME (BEAKER) (test (Auto Ou tput) code = 760) [id number] 10:29:50 Test Item Value Reference Range Interpretation Comments PARTIAL THROMBOPLASTIN 47.2 seconds 23.0-35.0 H Final Information TIME (BEAKER) (test (Auto Ou tput) code = 760) CBC W/PLT COUNT & AUTO [id number] 05:24:24 Test Item Value Reference Range Interpretation [...] (BEAKER) (test code = 2801) COMPREHENSIVE METABOLIC [id number] 05:18:05 Test Item Value Reference Range Interpretation [...] 5-50 H (test code = 347) EGFR (PRIYA) (test 31 mL/min/1.73 ESTIMA NATE GFR IS code = 1092) sq m NOT ACCURATE CREATININE CLEARANCE IN PREDICTING GLOMERULAR FILTRATION RATE . ESTIMATED GFR I S NOT APPLICABLE FOR DIALYSIS PATIEN TS. Research Pharmacist ID - LITOOperator ID - LITOOperator ID - LITOOperator ID - LITOOperator ID - LITOOperator ID - LITOOperator ID - LITOOperator ID - LITOOperator ID - LITOOperator ID - LITOOperator ID - LITOOperator ID - LITOOperator ID - LITOOperator ID - LITOOperator ID - LITOOperator ID - LITOOperator ID - L ITOOperator ID - LITOOperator ID - LITOMR, BRAIN, WITHOUT [id number] 20:16:00Unlisted Reason for Exam - Click Yes and Enter Reason Below->No [facility] : 1955 Sex: MFINAL [...] Signed: Francine Barber MDReport Verified Date/Time: 0:16:55 [id number] 10:45:30 Test Item Value Reference Range Interpretation Comments PREALBUMIN (BEAKER) (test code = 586) 8 mg/dL 14-45 L Research Pharmacist ID - [id number] 09:25:29 Test Item Value Reference Range Interpretation Comments PARTIAL THROMBOPLASTIN 55.2 seconds 23.0-35.0 H Final Information TIME (BEAKER) (test (Auto Ou tput) code = 760) COMPREHENSIVE METABOLIC [id number] 05:20:59 Test Item Value Reference Range Interpretation [...] S NOT APPLICABLE FOR DIALYSIS PATIEN TS. Research Pharmacist ID - ERINYOperator ID - ERINYOperator ID - ERINYOperator ID - ERINYOperator ID - ERINYOperator ID - ERINYOperator ID - ERINYOperator ID - ERINYOperator ID - ERINYOperator ID - ERINYOperator ID- ERINYOperator ID - ERINYOperator ID - ERINYOperator ID - ERINYOperator ID - ERINYOperator ID - LUIZ [id number] 05:13:26 Test Item Value Reference Range Interpretation Comments MAGNESIUM (BEAKER) (test code = 2.1 mg/dL 1.5-3.0 627) Research Pharmacist ID - ERINYOperator ID - ERINYOperator ID - ERINYOperator ID - ERINYCBC W/PLT COUNT & AUTO [id number] 04:48:12 Test Item Value Reference Range Interpretation [...] H PERCENT (BEAKER) (test code = 2801) [id number] 01:51:26 Test Item Value Reference Range Interpretation Comments PARTIAL THROMBOPLASTIN 52.1 seconds 23.0-35.0 H Final Information TIME (BEAKER) (test (Auto Ou tput) code = 760) C-REACTIVE [id number] 16:04:12 Test Item Value Reference Range Interpretation Comments C-REACTIVE PROTEIN (BEAKER) (test 19.67 mg/dL 0.00-0.50 H code = 676) Research Pharmacist ID - JPLYJKJNN8239-13-57 15:54:19 Test Item Value Reference Range Interpretation Comments PARTIAL THROMBOPLASTIN 48.4 seconds 23.0-35.0 H Final Information TIME (BEAKER) (test (Auto Ou tput) code = 760) ARTERIAL DOPPLER LEG, [id number] 15:47:00Reason for exam:->PAD [facility] : 1955 Sex: MFINAL [...] further evaluation if clinically indicated. Signed: Aleksandar Christiansonort Verified Date/Time: 12/30/2021 15:47:00 Reading Location: [facility] Radiology Reading Room RAD, FOOT, MIN 3 VIEWS, LEFT 2021-12-30 11:11:00Reason for exam:->woundsShould this be performed at the bedside?->Yes[facility] LASHAWN : 1955 Sex: MFINAL REPORT History: Left [...] distal lower extremity. 2. Atherosclerosis. Signed: Aleksandar Christiansoneport Verified Date/Time: 12/30/2021 11:11:03 Reading Location: [facility] Radiology Reading Room RAD, ANKLE, MIN 3 VIEWS, [id number] 11:11:00Reason for exam:- >woundsShould this be performed at the bedside?->Yes [facility] : 1955 Sex: MFINAL REPORT History: Left lower extremity wounds. FINDINGS: Left tibia and fibula series, two views: AP and lateral views of the left tibia and fibula show no fractures or acute bone abnormalities. Atherosclerotic calcification of the popliteal artery and distal vessels is seen. Alignment appears normal. Linear lucency is noted in the proximal left tibial metaphysis, possibly represe nting old surgical hardware. Left ankle series, three views: Multiple views of the left ankle show no fractures or acute bone abnormalities. Well-corticated bone fragment in the region of the medial malleolus may represent an old avulsion injury. Tibiotalar joint is intact without significant degenerative change. Alignment appears normal and surrounding soft tissues are unremarkable. Left foot series, three views: Multiple views of the left foot show no fractures or acute bone abnormalities. Alignment appears normal and the joint spaces are intact without significant degenerative change. Surrounding soft tissues are unremarkable. IMPRESSION: 1. No acute fractures or bone abnormalities of the left distal lower extremity. 2. Atherosclerosis. Signed: Aleksandar Christianson Verified Date/Time: 12/30/2021 11:11:03 Reading Location: [facility] Radiology Reading Room RAD, LEG, [id number] 11:11:00Reason for exam:->woundsShould this be performed at the bedside?->Yes [facility] : 1955 Sex: MFINAL [...] Christianson Verified Date/Time: 12/30/2021 11:11:03 Reading Location: [facility] Radiology Reading Room 2D Echo W/Doppler(CW/PW/Color)2021-12-30 07:55:56Ejection FractionSLEH ECHO HEARTLAB [facility] W/Doppler(CW/PW/Color)2021-12-30 07:55:56Ejection FractionSLEH ECHO HEARTLAB [facility]iatric2D Echo W/Doppler(CW/PW/Color) 2021-12-30 07:55:56Ejection FractionSLEH ECHO HEARTLAB [facility]Reg[facility]Kind[facility] Echo W/Doppler(CW/PW/Color)2021-12-30 07:55:56Ejection FractionSLEH ECHO HEARTLAB [facility]Kind[facility] Echo W/Doppler(CW/PW/Color)2021-12-30 07:55:56Ejection FractionSLEH ECHO HEARTLAB Psychiatric2D Echo W/Doppler(CW/PW/Color) 2021-12-30 07:55:56Ejection FractionSLEH ECHO HEARTLAB Psychiatric2D Echo W/Doppler(CW/PW/Color)2021-12-30 07:55:56Ejection FractionSLE ECHO HEARTLAB Psychiatric2D Echo W/Doppler(CW/PW/Color)2021-12-30 07:55:56Ejection FractionSLE ECHO HEARTLAB Psychiatric2D Echo W/Doppler(CW/PW/Color) 2021-12-30 07:55:56Ejection FractionSLE ECHO HEARTLAB PsychiatricCOMPREHENSIVE METABOLIC [id number] 07:02:16 Test Item Value Reference Range Interpretation [...] S NOT APPLICABLE FOR DIALYSIS PATIEN TS. Research Pharmacist ID - DSENSONOperator ID - DSENSONOperator ID - DSENSONOperator ID - DSENSONOperator ID - DSENSONOperator ID - DSENSONOperator ID - DSENSONOperator ID - DSENSONOperator ID - DSENSONOperator ID - DSENSONOperator ID - DSENSONOperator ID - DSENSONOperator ID - DSENSONOperator ID - DSENSONOperatorID - DSENSONOperator ID - [id number] 07:00:58 Test Item Value Reference Range Interpretation Comments MAGNESIUM (BEAKER) (test code = 2.1 mg/dL 1.5-3.0 627) Research Pharmacist ID - DSENSONOperator ID - DSENSONOperator ID - DSENSONOperator ID - [id number] 06:51:08 Test Item Value Reference Range Interpretation Comments PARTIAL THROMBOPLASTIN 46.1 seconds 23.0-35.0 H Final Information TIME (BEAKER) (test (Auto Ou tput) code = 760) CBC W/PLT COUNT & AUTO [id number] 06:50:59 Test Item Value Reference Range Interpretation [...] H PERCENT (BEAKER) (test code = 2801) [id number] 22:19:04 Test Item Value Reference Range Interpretation Comments PARTIAL THROMBOPLASTIN 45.3 seconds 23.0-35.0 H Final Information TIME (BEAKER) (test (Auto Ou tput) code = 760) [id number] 14:50:42 Test Item Value Reference Range Interpretation Comments PARTIAL THROMBOPLASTIN 59.2 seconds 23.0-35.0 H Final Information TIME (BEAKER) (test (Auto Ou tput) code = 760) TROPONIN [id number] 06:13:12 Test Item Value Reference Range Interpretation [...] failure, acidosis, acute neurological disease, and persistent tachyarrhythmia.Research Pharmacist ID - [id number] METABOLIC [id number] 06:07:11 Test Item Value Reference Range Interpretation [...] S NOT APPLICABLE FOR DIALYSIS PATIEN TS. Research Pharmacist ID - [id number] ID - [id number] ID - [id number] ID - [id number] ID - HDYEJVURO893Bxsujrde ID - SRHXVXHPF010Mjxyuefl ID - EQSDUOOLQ034Qpdlzjyd ID - PZVYXWSJZ233Coybcjtn ID - BWXCHCKYR965Mesymtpy ID - VYPFYZMQQ850Pszeaodw ID - YYMPDNZTB532Ihnspymp ID - DMLCFOEHC301Wyguarhy ID - IQUQSZVFL496Glfachil ID - RNXJQTKWF818Ojimltgk ID - PVPLGZGGD836Eitwfxdm ID -[id number] 06:06:28 Test Item Value Reference Range Interpretation Comments MAGNESIUM (BEAKER) (test code = 2.0 mg/dL 1.5-3.0 627) Research Pharmacist ID - [id number] ID - [id number] ID - [id number] ID - [id number] 06:06:28 Test Item Value Reference Range Interpretation Comments PARTIAL THROMBOPLASTIN 40.7 seconds 23.0-35.0 H Final Information TIME (BEAKER) (test (Auto Ou tput) code = 760) CBC W/PLT COUNT & AUTO [id number] 05:51:43 Test Item Value Reference Range Interpretation [...] = 2801) RAD, CHEST, 1 VIEW, NON [id number] 01:45:00Reason for exam:- >PNEUMONIAShould this be performed at the bedside?->Yes [facility] : 1955 Sex: MFINAL REPORT EXAM: Chest one view COMPARISON: None available CLINICAL HISTORY: Pneumonia FINDINGS: Discoid opacity is noted in the right midlung which may represent subsegmental atelectasis. There is no evidence of pleural effusion or pneumothorax. The cardiac size is within normal limits. The regional osseous structures are unremarkable. Signed: Soledad Sharif [facility] Verified Date /Time: 12/29/2021 01:45:05 [facility] [place] [id number] 22:21:09 Test Item Value Reference Range Interpretation [...] failure, acidosis, acute neurological disease, and persistent tachyarrhythmia.Research Pharmacist ID - ERINCHILDREN'S OF ALABAMA RUSSELL CAMPUSREHENSIVE METABOLIC [id number] 22:16:48 Test Item Value Reference Range Interpretation [...] S NOT APPLICABLE FOR DIALYSIS PATIEN TS. Research Pharmacist ID - ERINYOperator ID - ERINYOperator ID - ERINYOperator ID - ERINYOperator ID - ERINYOperator ID - ERINYOperator ID - ERINYOperator ID - ERINYOperator ID - ERINYOperator ID - ERINYOperator ID- ERINYOperator ID - ERINYOperator ID - ERINYOperator ID - ERINYOperator ID - ERINYOperator ID - LUIZ [id number] 22:14:52 Test Item Value Reference Range Interpretation Comments MAGNESIUM (BEAKER) (test code = 2.0 mg/dL 1.5-3.0 627) Research Pharmacist ID - ERINYOperator ID - ERINYOperator ID - ERINYOperator ID - ERINY LIPID [id number] 22:14:12 Test Item Value Reference Range Interpretation [...] Borderline 130-159 High 160-189 Very High >=190 Research Pharmacist ID - ERINYOperatorID - ERINYOperator ID - ERINYUrinalysis w/ [id number] 22:12:25 Test Item Value Reference Range Interpretation Comments Color, UA (test code = Yellow 5778-6) Clarity, UA (test code = Clear 5767-9) Specific Chandler, UA <=1.005 1.001-1.035 (test code = 5811-5) pH, UA (test code = 6.0 5.0-8.0 5803-2) Protein, UA (test code = 30 mg/dL Negative A 83816-9) Glucose, UA (test code = Negative Negative 365) Ketones, UA (test code = Negative Negative 2514-8) Bilirubin, UA (test code Negative Negative = 08306-9) Blood, UA (test code = Small Negative A 27937-6) Nitrite, UA (test code = Negative Negative 5802-4) Leukocytes, UA (test Negative Negative code = 5799-2) Urobilinogen, UA (test 4.0 mg/dL 0.2-1.0 H code = 58981-9) Bacteria, UA (test code None Seen = 37799-8) RBC, UA (test code = <5 See_Comment [Autom ated message] 799-7) The system [employer] generated this result transmit nate reference range : /HPF. The refer ence range was not u sed to interpret th is result as normal/abnormal . WBC, UA (test code = None Seen See_Comment [Autom ated message] 09257-7) The system [employer] generated this result transmit nate reference range : /HPF. The refer ence range was not u sed to interpret th is result as normal/abnormal . SQUAMOUS EPITHELIAL <5 See_Comment [Automa nate message] (test code = 77367-8) The sy stem which generated this result transmit nate reference range : /HPF. The refer ence range was not u sed to interpret th is result as normal/abnormal . Specimen Source (test code = 2795) Lab Interpretation (test Abnormal code = 84940-2) [facility]/ [id number] 22:12:25 Test Item Value Reference Range Interpretation Comments Color, UA (test code = Yellow 5778-6) Clarity, UA (test code = Clear 5767-9) Specific Chandler, UA <=1.005 1.001-1.035 (test code = 5811-5) pH, UA (test code = 6.0 5.0-8.0 5803-2) Protein, UA (test code = 30 mg/dL Negative A 02388-8) Glucose, UA (test code = Negative Negative 365) Ketones, UA (test code = Negative Negative 2514-8) Bilirubin, UA (test code Negative Negative = 03389-2) Blood, UA (test code = Small Negative A 74488-5) Nitrite, UA (test code = Negative Negative 5802-4) Leukocytes, UA (test Negative Negative code = 5799-2) Urobilinogen, UA (test 4.0 mg/dL 0.2-1.0 H code = 31527-9) Bacteria, UA (test code None Seen = 60752-3) RBC, UA (test code = <5 See_Comment [Autom ated message] 799-7) The system [employer] generated this result transmit nate reference range : /HPF. The refer ence range was not u sed to interpret th is result as normal/abnormal . WBC, UA (test code = None Seen See_Comment [Autom ated message] 50564-0) The system [employer] generated this result transmit nate reference range : /HPF. The refer ence range was not u sed to interpret th is result as normal/abnormal . SQUAMOUS EPITHELIAL <5 See_Comment [Automa nate message] (test code = 12547-7) The sy stem which generated this result transmit nate reference range : /HPF. The refer ence range was not u sed to interpret th is result as normal/abnormal . Specimen Source (test code = 2795) Lab Interpretation (test Abnormal code = 88608-2) [facility] [id number] 22:12:25 Test Item Value Reference Range Interpretation Comments Color, UA (test code = Yellow 5778-6) Clarity, UA (test code = Clear 5767-9) Specific Chandler, UA <=1.005 1.001-1.035 (test code = 5811-5) pH, UA (test code = 6.0 5.0-8.0 5803-2) Protein, UA (test code = 30 mg/dL Negative A 34522-3) Glucose, UA (test code = Negative Negative 365) Ketones, UA (test code = Negative Negative 2514-8) Bilirubin, UA (test code Negative Negative = 18472-8) Blood, UA (test code = Small Negative A 82095-7) Nitrite, UA (test code = Negative Negative 5802-4) Leukocytes, UA (test Negative Negative code = 5799-2) Urobilinogen, UA (test 4.0 mg/dL 0.2-1.0 H code = 17401-9) Bacteria, UA (test code None Seen = 03957-4) RBC, UA (test code = <5 See_Comment [Autom ated message] 799-7) The system [employer] generated this result transmit nate reference range : /HPF. The refer ence range was not u sed to interpret th is result as normal/abnormal . WBC, UA (test code = None Seen See_Comment [Autom ated message] 78086-5) The system [employer] generated this result transmit nate reference range : /HPF. The refer ence range was not u sed to interpret th is result as normal/abnormal . SQUAMOUS EPITHELIAL <5 See_Comment [Automa nate message] (test code = 16584-3) The sy stem which generated this result transmit nate reference range : /HPF. The refer ence range was not u sed to interpret th is result as normal/abnormal . Specimen Source (test code = 2795) Lab Interpretation (test Abnormal code = 82844-0) [facility] [id number] 22:12:25 Test Item Value Reference Range Interpretation Comments Color, UA (test code = Yellow 5778-6) Clarity, UA (test code = Clear 5767-9) Specific Chandler, UA <=1.005 1.001-1.035 (test code = 5811-5) pH, UA (test code = 6.0 5.0-8.0 5803-2) Protein, UA (test code = 30 mg/dL Negative A 92810-8) Glucose, UA (test code = Negative Negative 365) Ketones, UA (test code = Negative Negative 2514-8) Bilirubin, UA (test code Negative Negative = 64665-4) Blood, UA (test code = Small Negative A 05094-3) Nitrite, UA (test code = Negative Negative 5802-4) Leukocytes, UA (test Negative Negative code = 5799-2) Urobilinogen, UA (test 4.0 mg/dL 0.2-1.0 H code = 16122-5) Bacteria, UA (test code None Seen = 17288-5) RBC, UA (test code = <5 See_Comment [Autom ated message] 799-7) The system [employer] generated this result transmit nate reference range : /HPF. The refer ence range was not u sed to interpret th is result as normal/abnormal . WBC, UA (test code = None Seen See_Comment [Autom ated message] 61166-5) The system [employer] generated this result transmit nate reference range : /HPF. The refer ence range was not u sed to interpret th is result as normal/abnormal . SQUAMOUS EPITHELIAL <5 See_Comment [Automa ante message] (test code = 66643-2) The sy stem which generated this result transmit nate reference range : /HPF. The refer ence range was not u sed to interpret th is result as normal/abnormal . Specimen Source (test code = 2795) Lab Interpretation (test Abnormal code = 67473-6) [facility] [id number] 22:12:25 Test Item Value Reference Range Interpretation Comments Color, UA (test code = Yellow 5778-6) Clarity, UA (test code = Clear 5767-9) Specific Chandler, UA <=1.005 1.001-1.035 (test code = 5811-5) pH, UA (test code = 6.0 5.0-8.0 5803-2) Protein, UA (test code = 30 mg/dL Negative A 33012-1) Glucose, UA (test code = Negative Negative 365) Ketones, UA (test code = Negative Negative 2514-8) Bilirubin, UA (test code Negative Negative = 26489-0) Blood, UA (test code = Small Negative A 98793-4) Nitrite, UA (test code = Negative Negative 5802-4) Leukocytes, UA (test Negative Negative code = 5799-2) Urobilinogen, UA (test 4.0 mg/dL 0.2-1.0 H code = 16859-7) Bacteria, UA (test code None Seen = 36573-4) RBC, UA (test code = <5 See_Comment [Autom ated message] 799-7) The system [employer] generated this result transmit nate reference range : /HPF. The refer ence range was not u sed to interpret th is result as normal/abnormal . WBC, UA (test code = None Seen See_Comment [Autom ated message] 54328-4) The system [employer] generated this result transmit nate reference range : /HPF. The refer ence range was not u sed to interpret th is result as normal/abnormal . SQUAMOUS EPITHELIAL <5 See_Comment [Automa nate message] (test code = 89737-5) The sy stem which generated this result transmit nate reference range : /HPF. The refer ence range was not u sed to interpret th is result as normal/abnormal . Specimen Source (test code = 2795) Lab Interpretation (test Abnormal code = 84528-2) [facility] [id number] 22:12:25 Test Item Value Reference Range Interpretation Comments Color, UA (test code = Yellow 5778-6) Clarity, UA (test code = Clear 5767-9) Specific Chandler, UA <=1.005 1.001-1.035 (test code = 5811-5) pH, UA (test code = 6.0 5.0-8.0 5803-2) Protein, UA (test code = 30 mg/dL Negative A 62626-3) Glucose, UA (test code = Negative Negative 365) Ketones, UA (test code = Negative Negative 2514-8) Bilirubin, UA (test code Negative Negative = 13014-4) Blood, UA (test code = Small Negative A 04758-6) Nitrite, UA (test code = Negative Negative 5802-4) Leukocytes, UA (test Negative Negative code = 5799-2) Urobilinogen, UA (test 4.0 mg/dL 0.2-1.0 H code = 02505-2) Bacteria, UA (test code None Seen = 19307-1) RBC, UA (test code = <5 See_Comment [Autom ated message] 799-7) The system [employer] generated this result transmit nate reference range : /HPF. The refer ence range was not u sed to interpret th is result as normal/abnormal . WBC, UA (test code = None Seen See_Comment [Autom ated message] 25976-6) The system [employer] generated this result transmit nate reference range : /HPF. The refer ence range was not u sed to interpret th is result as normal/abnormal . SQUAMOUS EPITHELIAL <5 See_Comment [Automa nate message] (test code = 69765-9) The sy stem which generated this result transmit nate reference range : /HPF. The refer ence range was not u sed to interpret th is result as normal/abnormal . Specimen Source (test code = 2795) Lab Interpretation (test Abnormal code = 76847-7) [facility] [id number] 22:12:25 Test Item Value Reference Range Interpretation Comments Color, UA (test code = Yellow 5778-6) Clarity, UA (test code = Clear 5767-9) Specific [place], UA <=1.005 1.001-1.035 (test code = 5811-5) pH, UA (test code = 6.0 5.0-8.0 5803-2) Protein, UA (test code = 30 mg/dL Negative A 35604-1) Glucose, UA (test code = Negative Negative 365) Ketones, UA (test code = Negative Negative 2514-8) Bilirubin, UA (test code Negative Negative = 03256-1) Blood, UA (test code = Small Negative A 35059-6) Nitrite, UA (test code = Negative Negative 5802-4) Leukocytes, UA (test Negative Negative code = 5799-2) Urobilinogen, UA (test 4.0 mg/dL 0.2-1.0 H code = 20332-9) Bacteria, UA (test code None Seen = 47645-9) RBC, UA (test code = <5 See_Comment [Autom ated message] 799-7) The system [employer] generated this result transmit nate reference range : /HPF. The refer ence range was not u sed to interpret th is result as normal/abnormal . WBC, UA (test code = None Seen See_Comment [Autom ated message] 38796-5) The system [employer] generated this result transmit nate reference range : /HPF. The refer ence range was not u sed to interpret th is result as normal/abnormal . SQUAMOUS EPITHELIAL <5 See_Comment [Automa nate message] (test code = 06713-1) The sy stem which generated this result transmit nate reference range : /HPF. The refer ence range was not u sed to interpret th is result as normal/abnormal . Specimen Source (test code = 2795) Lab Interpretation (test Abnormal code = 18129-5) [facility] [id number] 22:12:25 Test Item Value Reference Range Interpretation Comments Color, UA (test code = Yellow 5778-6) Clarity, UA (test code = Clear 5767-9) Specific [place], UA <=1.005 1.001-1.035 (test code = 5811-5) pH, UA (test code = 6.0 5.0-8.0 5803-2) Protein, UA (test code = 30 mg/dL Negative A 55129-2) Glucose, UA (test code = Negative Negative 365) Ketones, UA (test code = Negative Negative 2514-8) Bilirubin, UA (test code Negative Negative = 91982-0) Blood, UA (test code = Small Negative A 19295-1) Nitrite, UA (test code = Negative Negative 5802-4) Leukocytes, UA (test Negative Negative code = 5799-2) Urobilinogen, UA (test 4.0 mg/dL 0.2-1.0 H code = 60741-3) Bacteria, UA (test code None Seen = 77983-3) RBC, UA (test code = <5 See_Comment [Autom ated message] 799-7) The system [employer] generated this result transmit nate reference range : /HPF. The refer ence range was not u sed to interpret th is result as normal/abnormal . WBC, UA (test code = None Seen See_Comment [Autom ated message] 53923-5) The system [employer] generated this result transmit nate reference range : /HPF. The refer ence range was not u sed to interpret th is result as normal/abnormal . SQUAMOUS EPITHELIAL <5 See_Comment [Automa nate message] (test code = 96943-6) The sy stem which generated this result transmit nate reference range : /HPF. The refer ence range was not u sed to interpret th is result as normal/abnormal . Specimen Source (test code = 2795) Lab Interpretation (test Abnormal code = 30995-2) [facility] [id number] 22:12:25 Test Item Value Reference Range Interpretation Comments Color, UA (test code = Yellow 5778-6) Clarity, UA (test code = Clear 5767-9) Specific [place], UA <=1.005 1.001-1.035 (test code = 5811-5) pH, UA (test code = 6.0 5.0-8.0 5803-2) Protein, UA (test code = 30 mg/dL Negative A 28785-0) Glucose, UA (test code = Negative Negative 365) Ketones, UA (test code = Negative Negative 2514-8) Bilirubin, UA (test code Negative Negative = 19971-2) Blood, UA (test code = Small Negative A 20135-2) Nitrite, UA (test code = Negative Negative 5802-4) Leukocytes, UA (test Negative Negative code = 5799-2) Urobilinogen, UA (test 4.0 mg/dL 0.2-1.0 H code = 87096-5) Bacteria, UA (test code None Seen = 95581-9) RBC, UA (test code = <5 See_Comment [Autom ated message] 799-7) The system [employer] generated this result transmit nate reference range : /HPF. The refer ence range was not u sed to interpret th is result as normal/abnormal . WBC, UA (test code = None Seen See_Comment [Autom ated message] 90648-1) The system [employer] generated this result transmit nate reference range : /HPF. The refer ence range was not u sed to interpret th is result as normal/abnormal . SQUAMOUS EPITHELIAL <5 See_Comment [Automa nate message] (test code = 09884-2) The sy stem which generated this result transmit nate reference range : /HPF. The refer ence range was not u sed to interpret th is result as normal/abnormal . Specimen Source (test code = 2795) Lab Interpretation (test Abnormal code = 03067-1) [facility] [id number] 22:12:25 Test Item Value Reference Range Interpretation [...] = 1663) SOURCE(BEAKER) (test code = 2795) [id number] 22:10:10 Test Item Value Reference Range Interpretation Comments PARTIAL THROMBOPLASTIN 27.6 seconds 23.0-35.0 Final Information TIME (BEAKER) (test (Auto Ou tput) code = 760) HEMOGLOBIN [id number] 22:05:08 Test Item Value Reference Range Interpretation Comments HEMOGLOBIN A1C (BEAKER) (test code = 4.5 % 4.3-6.1 368) Research Pharmacist ID - ErinyCBC W/PLT COUNT & AUTO [id number] 22:02:15 Test Item Value Reference Range Interpretation [...] 0-0 H PERCENT (BEAKER) (test code = 3219)
[2022-06-02] MEDS ORDERED: ONDANSETRON 4 MG/2 ML VIAL ONE (13:50)
[2022-06-02] MEDS ORDERED: NA CHLORIDE 0.9% 1,000 ML ONE (13:50)
[2022-06-02 14:19] LABS: Urine Blood Negative (Negative); Urine Glucose Negative (Negative); Urine Protein Negative (Negative); Urine Specific Gravity 1.015 (1.005-1.030); Urine pH 5.5 (5.0-7.0)
[2022-06-02 14:33] LABS: Hematocrit 28.9 % (39.6-49.0); Lymphocytes % 25.7 % (15.3-44.8); MCV 93.3 fL (80-100); MPV 6.8 fL (7.6-11.3)
[2022-06-02 14:45] LABS: Albumin 2.7 g/dL (3.4-5.0); Bilirubin Total 0.3 mg/dL (0.2-1.0); Potassium 4.6 mmol/L (3.5-5.1); Protein, Total 7.1 g/dL (6.4-8.2); Troponin High Sensitivity 13.4 pg/mL (<58.9)
[2022-06-02 15:28] LABS: Urine RBC <5 /HPF (None Seen)
--- NOTE | 2022-06-02 15:45 | EDPHYS ---
Physician Documentation [facility] Name: Kavin Armijo Age: 67 yrs Sex: Male : 1955 Arrival Date: 06/02/2022 Time: 13:20 Bed 2 Private MD: ED Physician Melinda Sadler HPI: 06/02 13:24 This 67 yrs old Male presents to ER via Unassigned with complaints of Nausea/Vomiting. sd2 13:24 67-year-old male presents via EMS with chief complaint of nausea and vomiting. He was sd2 discharged from the hospital earlier this month with C. difficile colitis on oral vancomycin. He reports he has been compliant with this and has been at the group home being cared for. He started to have significant nausea and vomiting this morning that has not resolved. He denies any fevers, abdominal pain or urinary symptoms. He reports ongoing diarrhea that has not seemed to slow down despite the antibiotics. He denies any chest pain or shortness of breath and has no other acute complaints at this time aside from nausea.. Historical: - Allergies: 13:26 Phenergan; ll1 - PMHx: 13:26 Bipolar disorder; clot L leg; Hypertensive disorder; kidney failure; PAD; ll1 - PSHx: 13:26 Amputated below knee; gall stones removed; triple bypass; ll1 - Immunization history:: Client reports receiving the 2nd dose of the Covid vaccine. - Social history:: Smoking status: Patient reports the use of cigarette tobacco products, smokes one-half pack cigarettes per day. ROS: 13:24 Constitutional: Negative for fever, chills, and weight loss, Eyes: Negative for injury, sd2 pain, redness, and discharge, Cardiovascular: Negative for chest pain, palpitations, and edema, Respiratory: Negative for shortness of breath, cough, wheezing. Abdomen/GI: Negative for abdominal pain, Positive for nausea, vomiting and diarrhea. : Negative for dysuria, frequency or hematuria. MS/Extremity: Negative for injury and deformity, Skin: Negative for injury, rash, and discoloration, Neuro: Negative for headache, numbness and tingling. Exam: 13:24 Constitutional: This is a well developed, well nourished patient who is awake, alert, sd2 and in no acute distress. Head/Face: Normocephalic, atraumatic. Eyes: EOMI, normal conjunctiva bilaterally Chest/axilla: Normal chest wall appearance and motion. Nontender with no deformity. Cardiovascular: Regular rate and rhythm with a normal S1 and S2. No gallops, murmurs, or rubs. 2+ distal pulses. Respiratory: Lungs have equal breath sounds bilaterally, clear to auscultation and percussion. No rales, rhonchi or wheezes noted. No increased work of breathing, no retractions or nasal flaring. Skin: Warm, dry with normal turgor. Normal color with no rashes, no lesions, and no evidence of cellulitis. MS/ Extremity: Pulses equal, no cyanosis. Neurovascular intact. Full, normal range of motion. Ambulatory without difficulty. Psych: Awake, alert, with orientation to person, place and time. Behavior, mood, and affect are within normal limits. 13:24 Abdomen/GI: Soft, non-tender, with normal bowel sounds. No guarding or rebound. No evidence of tenderness throughout. 14:42 ECG was reviewed by the Attending Physician. NSR, rate 78, no STEMI criteria sd2 Vital Signs: 13:26 BP 128 / 95; Pulse 96; Resp 18; Temp 98.2; Pulse Ox 98% on R/A; Pain 9/10; ll1 15:39 BP 128 / 86; Pulse 74; Resp 18; Pulse Ox 100% ; ll1 16:45 BP 138 / 84; Pulse 79; Resp 18; Pulse Ox 98% on R/A; kr3 17:45 BP 142 / 86; Pulse 79; Resp 18; Pulse Ox 99% on R/A; kr3 MDM: 13:24 Differential Diagnosis Gastritis, cholecystitis, pancreatitis, SBO, diverticulitis, sd2 kidney stone, appendicitis, UTI, dehydration, electrolyte abnormality among others. Data reviewed: vital signs, nurses notes, EMS record. 13:28 Patient medically screened. sd2 15:38 Physician consultation: Jose De Paz MD was called at 15:38, was contacted at 15:38, sd2 regarding patient's condition, discharges patient from the emergency department, Discussed case with Dr. De Paz. Reports patient's baseline creatinine is around 3 although I did ask about the recent creatinine 5 days ago that was 1.[address] [facility] Zandra reports that is not his normal baseline and no need for admission for kidney function at this time. Will plan to discharge back to group home with Zofran for nausea control. . 15:43 ED course: Pt comfortable with plan for discharge and outpatient follow up. Verbalizes sd2 understanding of strict return precautions. . 06/02 13:22 Order name: CBC with Diff; Complete Time: 15:21 sd2 06/02 13:22 Order name: CMP; Complete Time: 15:21 sd2 06/02 13:22 Order name: Magnesium; Complete Time: 15:21 sd2 06/02 13:22 Order name: Troponin High Sensitivity; Complete Time: 15:21 sd2 06/02 13:22 Order name: Urine Microscopic Only; Complete Time: 15:35 sd2 06/02 14:19 Order name: Urine Dipstick-Ancillary; Complete Time: 14:28 EDMS 06/02 13:22 Order name: EKG - Nurse/Tech; Complete Time: 14:41 sd2 06/02 13:22 Order name: Urine Dipstick-Ancillary (obtain specimen); Complete Time: 14:13 sd2 Administered Medications: 14:13 Drug: NS 0.9% 500 ml Route: IV; Rate: bolus; Site: right forearm; ll1 15:38 Follow up: Response: No adverse reaction; IV Status: Completed infusion; IV Intake: ll1 500ml 14:13 Drug: Zofran (Ondansetron) 4 mg Route: IVP; Site: right forearm; ll1 15:38 Follow up: Response: No adverse reaction ll1 15:38 Drug: NS 0.9% 500 ml Route: IV; Rate: bolus; Site: right forearm; ll1 18:34 Follow up: Response: No adverse reaction; IV Status: Completed infusion; IV Intake: kr3 500ml Disposition Summary: 06/02/22 15:44 Discharge Ordered Location: [facility] sd2 Problem: an acute exacerbation sd2 Symptoms: have improved sd2 Condition: Stable sd2 Diagnosis - Nausea and vomiting sd2 - C. difficile colitis sd2 Followup: sd2 - With: Jose De Paz MD - When: 2 - 3 days - Reason: Recheck today's complaints, Continuance of care, Re-evaluation by your physician Discharge Instructions: - Discharge Summary Sheet sd2 - Nausea and Vomiting, Adult sd2 Forms: - Medication Reconciliation Form sd2 - Thank You Letter sd2 - Antibiotic Education sd2 - Prescription Opioid Use sd2 Prescriptions: - Zofran 4 mg Oral Tablet - take 1 tablet by ORAL route every 6 hours As needed as needed for nausea and sd2 vomiting; 20 tablet; Refills: 0, Product Selection Permitted Signatures: Dispatcher [employer] Clem Tristan RN RN ll1 Melinda Sadler MD MD sd2 Mali Copeland RN kr3
--- NOTE | 2022-06-02 15:45 | ER ---
Nurse's Notes [facility] Name: Kavin Armijo Age: 67 yrs Sex: Male : 1955 Arrival Date: 06/02/2022 Time: 13:20 Bed 2 Private MD: Diagnosis: Nausea and vomiting;C. difficile colitis Presentation: 06/02 13:26 Chief complaint: EMS states: HR 100-110, otherwise VSS. No IV, one attempted. Chief ll1 complaint: Patient states: N/V/D, not eating well for 3-4 days. On antibiotics for C Diff currently. Bed sore also which is painful. Coronavirus screen: Vaccine status: Patient reports receiving the 2nd dose of the covid vaccine. Client denies travel out of the [place] in the last 14 days. diarrhea, fatigue, fever, nausea, vomiting. Client presents with at least one sign or symptom that may indicate coronavirus-19. Standard/surgical mask placed on the client. Ebola Screen: Patient denies travel to an Ebola-affected area in the 21 days before illness onset. Initial Sepsis Screen: Does the patient meet any 2 criteria? HR > 90 bpm. No. Patient's initial sepsis screen is negative. Does the patient have a suspected source of infection? Yes: Skin breakdown/wound. Risk Assessment: Do you want to hurt yourself or someone else? Patient reports no desire to harm self or others. Onset of symptoms was May 29, 2022. 13:26 Method Of Arrival: EMS ll1 13:26 Acuity: CHANNING 3 ll1 Triage Assessment: 13:30 General: Appears uncomfortable, ill, Behavior is cooperative, appropriate for age. ll1 Pain: Complains of pain in buttocks Pain currently is 9 out of 10 on a pain scale. Quality of pain is described as aching, throbbing, Aggravated by weight bearing. Neuro: No deficits noted. Cardiovascular: No deficits noted. GI: Reports cramping, diarrhea, nausea, vomiting. Derm: Reports "bed sore". Historical: - Allergies: 13: Phenergan; ll1 - PMHx: 13:26 Bipolar disorder; clot L leg; Hypertensive disorder; kidney failure; PAD; ll1 - PSHx: 13:26 Amputated below knee; gall stones removed; triple bypass; ll1 - Immunization history:: Client reports receiving the 2nd dose of the Covid vaccine. - Social history:: Smoking status: Patient reports the use of cigarette tobacco products, smokes one-half pack cigarettes per day. Screenin:32 Abuse screen: Denies threats or abuse. Nutritional screening: No deficits noted. kr3 Tuberculosis screening: No symptoms or risk factors identified. Fall Risk Secondary diagnosis (15 points) IV access (20 points). Total Zaidi Fall Scale indicates Low Risk Score (25-44 pts). Fall prevention measures have been instituted. Side Rails Up X 2 Placed close to Nursing Station. Assessment: 14:08 Reassessment: No changes from previously documented assessment. Patient and/or family ll1 updated on plan of care and expected duration. Pain level reassessed. 15:00 Reassessment: No changes from previously documented assessment. Patient and/or family ll1 updated on plan of care and expected duration. Pain level reassessed. 16:00 Reassessment: No changes from previously documented assessment. Patient and/or family kr3 updated on plan of care and expected duration. Pain level reassessed. 17:00 Reassessment: No changes from previously documented assessment. Patient and/or family kr3 updated on plan of care and expected duration. Pain level reassessed. 17:58 GI: Abdomen is flat, non-distended. kr3 17:59 Reassessment: No changes from previously documented assessment. Patient and/or family kr3 updated on plan of care and expected duration. Pain level reassessed. Vital Signs: 13:26 BP 128 / 95; Pulse 96; Resp 18; Temp 98.2; Pulse Ox 98% on R/A; Pain 9/10; ll1 15:39 BP 128 / 86; Pulse 74; Resp 18; Pulse Ox 100% ; ll1 16:45 BP 138 / 84; Pulse 79; Resp 18; Pulse Ox 98% on R/A; kr3 17:45 BP 142 / 86; Pulse 79; Resp 18; Pulse Ox 99% on R/A; kr3 ED Course: 13:20 Patient arrived in ED. jl7 13:20 Melinda Sadler MD is Attending Physician. sd2 13:28 Triage completed. ll1 13:30 Arm band placed on Patient placed in an exam room, on a stretcher. ll1 13:52 Min, [place], RN is Primary Nurse. kr3 14:00 Inserted saline lock: 22 gauge in right forearm, using aseptic technique. Blood ll1 collected. 14:13 Urine Microscopic Only Sent. ll1 14:41 Troponin High Sensitivity Sent. kc6 14:41 Magnesium Sent. kc6 14:41 CMP Sent. kc6 15:43 Jose De Paz MD is Referral Physician. sd2 18:33 No provider procedures requiring assistance completed. IV discontinued, intact, kr3 bleeding controlled, No redness/swelling at site. Pressure dressing applied. 18:34 Bed in low position. Call light in reach. Side rails up X 1. kr3 Administered Medications: 14:13 Drug: NS 0.9% 500 ml Route: IV; Rate: bolus; Site: right forearm; ll1 15:38 Follow up: Response: No adverse reaction; IV Status: Completed infusion; IV Intake: ll1 500ml 14:13 Drug: Zofran (Ondansetron) 4 mg Route: IVP; Site: right forearm; ll1 15:38 Follow up: Response: No adverse reaction ll1 15:38 Drug: NS 0.9% 500 ml Route: IV; Rate: bolus; Site: right forearm; ll1 18:34 Follow up: Response: No adverse reaction; IV Status: Completed infusion; IV Intake: kr3 500ml Medication: 18:34 VIS not applicable for this client. kr3 Intake: 15:38 IV: 500ml; Total: 500ml. ll1 18:34 IV: 500ml; Total: 1000ml. kr3 Outcome: 15:44 Discharge ordered by . sd2 18:07 Patient left the ED. ll1 18:33 Discharged to home via ambulance. kr3 18:33 Condition: stable 18:33 Discharge instructions given to patient, Instructed on discharge instructions, follow up and referral plans. medication usage, Demonstrated understanding of instructions, follow-up care, medications, Prescriptions given X 1. Signatures: Nasir Glez RN RN jl7 Clem Malone RN RN ll1 Melinda Sadler MD MD sd2 Mali Copeland RN RN kr3 Radha Jaffe kc6 Corrections: (The following items were deleted from the chart) 13:29 13:26 Chief complaint: Patient states: N/V/D, not eating well for 3-4 days. On ll1 antibiotics for C Diff currently. 1 17:55 15:39 Reassessment: No changes from previously documented assessment. Patient and/or kr3 family updated on plan of care and expected duration. Pain level reassessed. 1 17:59 17:57 GI: Abdomen is round non-distended, kr3 kr3 18:03 16:45 BP 142 / 86; Pulse 79bpm; Resp 16bpm; Pulse Ox 99% RA; kr3 kr3
[2022-06-03 21:59] VITALS: TEMP 98.2
[2022-06-03 22:50] VITALS: BP 142/86; O2SAT 99
--- NOTE | 2022-06-04 06:35 | EKG ---
Test Date: 2022-06-02 Test Time: 14:39:38 Rn Radiation: DIAMOND MEASUREMENT RESULTS: Intervals: Rate: 78 IA: 144 QRSD: 84 QT: 414 QTc: 471 [place]: P: 85 IA: 144 QRS: 83 T: 83 INTERPRETIVE STATEMENTS: Normal sinus rhythm Normal ECG Compared to ECG 12/22/2021 12:18:01 Right-axis deviation no longer present Electronically Signed On 06-04-22 06:31:57 CDT by Han Dhillon
== END 2022-06-02 18:07 ==
LOC: ER 13:08
DX: A04.72 Enterocolitis due to Clostridium difficile, not specified as recurrent (principal); F17.210 Nicotine dependence, cigarettes, uncomplicated; Z95.1 Presence of aortocoronary bypass graft
CPT/HCPCS: 96361; 93005; 85025; 36415; 83735; 84484; 80053; 96374; 99284; J7030; J2405; 81003; 81015

== ENCOUNTER 2022-07-14 16:39 | Inpatient (IN) | payer OTHER ==
--- OUTSIDE RECORDS SUMMARY | 2022-07-14 16:59 | XMS REPORT | Continuity of Care Document ---
:1955 Author Organization [facility] t Address [address] [place] [address] Dr. [address]. [address] [place] [address] Care Team Providers Name Role Phone LUIS AGUILERA Primary Care Physician UnavailLASHAWN Morocho Attending Clinician Unavailable Stefanie DAVENPORT, Lashawn Medina Attending Clinician [phone] HECTOR MOYER Attending Clinician Unavailable YOGI MUNOZ Attending Clinician Unavailable Lourdes Wray MD Attending Clinician Yogi Munoz MD Attending Clinician [phone] Santhosh Barker MD Attending Clinician Jhony Padilla CRNA Attending Clinician [phone] Kuldip Liao Attending Clinician [address] ALVAREZ RATLIFF Attending Clinician Unavailable KNOW, DOES_NOT Attending Clinician Unavailable JOSSELYN ZAVALA Attending Clinician Unavailable Lucas DAVENPORT, Josselyn Dick Attending Clinician Maycol Peace MD Attending Clinician Renzo Waller Attending Clinician Yulisa DAVENPORT, Live Amador Attending Clinician Gm Holden MD Attending Clinician YOGI MUNOZ Admitting Clinician Unavailable EVY, DR PINO Admitting Clinician Unavailable JOSSELYN ZAVALA Admitting Clinician Unavailable Payers Payer Name Policy Type Policy Number Effective Date Expiration Date Marion WANG [id number] 2021 MEDICARE 00:00:00 [id number] 1959 00:00:00 MEDICARE MB [id number] 2008 [facility] NOVITAS 00:00:00 - [facility] Problems Condition Condition Condition Status Onset Resolution Last Treating Co mments Source Name Details Category Date Date Treatment Clinician Date Tobacco Tobacco Disease Active [facility] use use 02[facility]12 [facility] disorder disorder 00:00: Medica l 00 [place] Moderate Moderate Disease Active [facility] protein-ca protein-ca 02-12 N[place]ka kes [place] gómez 00:00: Medical malnutriti malnutriti 00 Ce nter on on Infected Infected Disease Active [facility] wound wound 02-11 [facility] 00:00: Medical 00 Center Infected Infected Disease Active [facility] surgical surgical 02-11 [facility] wound wound 00:00: Medical 00 Center S/P AKA S/P AKA Disease Active [facility] (above (above 02-11 knee knee 00:00: Medical amputation amputation 00 Ce nter ) ) unilateral unilateral , left , left Pseudomona Pseudomona Disease Active [facility] s s 02-11 infection infection 00:00: Medi titus 00 Center Peripheral Peripheral Disease Active [facility] artery artery 02-11 [facility] disease disease 00:00: Medical 00 Center Stage 4 Stage [address] [facility] chronic chronic 02-06 [facility] kidney kidney 00:00: Medical disease disease 00 Center Memory Memory Disease Active [facility] changes changes 02-06 [facility] 00:00: Medical 00 [place] Urinary Urinary Disease Active [facility] incontinen incontinen 02-06 Nneka kes ce ce 00:00: Medical 00 [place] Gangrene Gangrene Disease Active [facility] 01-04 [facility] 00:00: Medical 00 Center Leg wound, Leg wound, Disease Active [facility] left, left, 4-18 [facility] initial initial 00:00: Medical encounter encounter 00 Cent er Wound of Wound of Disease Active [facility] left ankle left ankle 4-18 Nneka kes 00:00: Medical 00 [place] Contusion Contusion Disease Active [facility] of second of second 4-18 [facility] toe of toe of 00:00: Medical left foot left foot 00 Cent er Peripheral Peripheral Disease Active [facility] vascular vascular 4-18 [facility] disease disease 00:00: Medical 00 [place] Pain of Pain of Disease Active CHI [...] kes ischemia ischemia 00:00: Medica l 00 [place] Bipolar 1 Bipolar [address] [facility] disorder disorder 6-12 [facility] 00:00: Medical 00 [place] 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 - [facility] Bipolar Bipolar Problem Active Common disorder disorder [facility] [id number] Anorexia Problem Active Commo n [facility] [id number] Abnormal Problem Active Commo n gait [facility] [id number] Low back Problem Active Comm on pain [facility] [id number] Elevated Problem Active Comm on CEA [facility] Mixed Hyperlipid Problem Active Commo n hyperlipid emia, Spirit emia mixed - [facility] [id number] Disc Problem Active Common degenerati Spirit on, lumbar - [facility] [id number] Other Problem Active Common chronic Spirit pain [facility] [id number] Diverticul Problem Active Co mmon itis Spirit [facility] Hypertensi Hypertensi Problem Active C ommon on on [facility] Insomnia Insomnia Problem Active Commo n Spirit [facility] Peripheral Venous Problem Active Commo n venous insufficie [facility] insufficie ncy - [facility] Coronary Coronary Problem Active [facility] disease disease [facility] Obstructiv Obstructiv Problem Active C ommon e sleep e sleep Spirit apnea apnea [facility] Chronic Chronic Problem Active Common renal renal [facility] disease disease - [facility] Allergies, Adverse Reactions, Alerts Allergy Allergy Status Severity Reaction(s) Onset Inactive Treating Comm ents Source Name Type Date Date Clinician Chlorpro Propensi Active Anaphylaxis [facility] mazine ty to 4-16 [facility] adverse 00:00: Medical reaction 00 [place] s CHLORPRO Allergy Active High Anaphylaxis [facility] MAZINE 4-16 [facility] 00:00: Medical 00 Center PROMETHA Allergy Active High Anaphylaxis [facility] ZINE 4-16 [facility] (BULK) 00:00: Medical 00 [place] Prometha Propensi Active Anaphylaxis [facility] zine ty to 4-16 [facility] (Bulk) adverse 00:00: Medical reaction 00 [place] s Prometha Drug Active Nausea Only Other [facility] zine Allergy 12-08 reaction( [facility] 00:00: s): Medical 00 Anaphylax Center is, Nausea/Vo miting, Unknown, Unknown PROMETHA Allergy Active High Nausea [facility] ZINE 12-08 00:00: 00 Prometha DA Active Unknown [facility] Chlorpro DA Active Unknown [facility] Social History Social Habit Start Date Stop Date Quantity Comments Source History SDOH [facility] Transport Non-[facility] Medical Center History of Tobacco Current Smoker Co mmon Spirit - Use [facility] Alcohol intake 2022-03-13 2022-03-13 Ex-drinker [facility] 00:00:00 00:00:00 (finding) Medical Center History [facility] 2022-02-12 2022-02-[address] [facility] Unable to 00:00:00 00:00:00 Medical Center Pay History [facility] 2022-02-12 2022-02-[address] [facility] Places 00:00:00 00:00:00 Medical Ce nter Lived History [facility] 2022-02-12 2022-02-[address] [facility] Homeless 00:00:00 00:00:00 Medical Center Last Year Exposure to 2021-11-29 2021-12-[address] [facility] SARS-CoV-2 (event) 00:00:00 02:01:00 [facility] Tobacco use and 2021-12-29 2021-12-[address] Nneka kes exposure 00:00:00 00:00:00 Medical Center History [facility] 2021-12-29 2021-12-[address] [facility] Transport Med 00:00:00 00:00:[address] Sex Ass[birth year] At [birth year] [facility] Nneka kes 00:00:00 00:00:00 Medical Center Smoking Status Start Date Stop Date Source Former smoker 2021-12-29 00:00:00 2021-12-29 00:00:00 [facility] Current Smoker 2019-07-01 00:00:00 [facility] - [facility] Medications Ordered Filled Start Stop Current Ordering Indication Dosage Frequency Signature Comments Components Source Medication Medication Date Date Medication? Clinician (SIG) Name Name aspirin 81 Yes 81mg QD Take [address] MG EC 6-30 by mouth [facility] tablet 10:31: daily. Medical [address] [place] [address] atorvastati Yes 10mg QD Take [address] n (LIPITOR) 6-30 by mouth Luke s 10 MG 10:31: daily. Medical tablet [address] [place] [address] buPROPion Yes 50mg QD Take [address] (WELLBUTRIN 6-30 by mouth Luke s ) 100 MG 10:31: daily. Medical tablet [address] [place] [address] divalproex Yes 500mg QD Take [address] (DEPAKOTE) 6-30 mg by [facility] 500 MG EC 10:31: mouth Medical tablet 07 nightly. [place] finasteride Yes 5mg QD Take [address] (PROSCAR) 5 6-30 by mouth Luke s mg tablet 10:31: daily. Medica l 07 [place] gabapentin Yes 100mg Q.[id number] Take [address] (NEURONTIN) 6-30 [id number] mg by L ukes 100 MG 10:31: 3D mouth 3 Medical capsule 07 (three) Center times daily. mirtazapine Yes 7.5mg QD Take 7.[address] (REMERON) 6-30 mg by [facility] 7.5 MG 10:31: mouth Medical tablet 07 nightly. [place] sertraline Yes 100mg QD Take [address] (ZOLOFT) 6-30 mg by [facility] 100 MG 10:31: mouth Medical tablet 07 daily. [place] tamsulosin Yes .4mg QD Take 0.[address] (FLOMAX) 6-30 mg by [facility] 0.4 mg Cap 10:31: mouth Medica l 24 hr 07 daily. [place] capsule calcitrioL Yes .25ug QD Take 0.[address] (ROCALTROL) 6-30 mcg by [facility] 0.25 MCG 10:31: mouth Medical capsule 07 daily. [place] aspirin 81 0 Yes 81mg QD Take [address] MG EC 6-30 by mouth [facility] tablet 10:31: daily. Medical [address] [place] [address] atorvastati Yes 10mg QD Take [address] n (LIPITOR) 6-30 by mouth Luke s 10 MG 10:31: daily. Medical tablet 07 [place] buPROPion Yes 50mg QD Take [address] (WELLBUTRIN 6-30 by mouth Luke s ) 100 MG 10:31: daily. Medical tablet 07 [place] divalproex Yes 500mg QD Take [address] (DEPAKOTE) 6-30 mg by [facility] 500 MG EC 10:31: mouth Medical tablet 07 nightly. [place] finasteride Yes 5mg QD Take [address] (PROSCAR) 5 6-30 by mouth Luke s mg tablet 10:31: daily. Medica l 07 [place] gabapentin Yes 100mg Q.[id number] Take [address] (NEURONTIN) 6-30 [id number] mg by L ukes 100 MG 10:31: 3D mouth 3 Medical capsule 07 (three) Center times daily. mirtazapine Yes 7.5mg QD Take 7.[address] (REMERON) 6-30 mg by [facility] 7.5 MG 10:31: mouth Medical tablet 07 nightly. [place] sertraline Yes 100mg QD Take [address] (ZOLOFT) 6-30 mg by [facility] 100 MG 10:31: mouth Medical tablet 07 daily. [place] tamsulosin Yes .4mg QD Take 0.[address] (FLOMAX) 6-30 mg by [facility] 0.4 mg Cap 10:31: mouth Medica l 24 hr 07 daily. [place] capsule calcitrioL Yes .25ug QD Take 0.[address] (ROCALTROL) 6-30 mcg by [facility] 0.25 MCG 10:31: mouth Medical capsule 07 daily. [place] aspirin 81 0 Yes 81mg QD Take [address] MG EC 6-30 by mouth [facility] tablet 10:31: daily. Medical [address] [place] [address] atorvastati Yes 10mg QD Take [address] n (LIPITOR) 6-30 by mouth Luke s 10 MG 10:31: daily. Medical tablet 07 [place] buPROPion Yes 50mg QD Take [address] (WELLBUTRIN 6-30 by mouth Luke s ) 100 MG 10:31: daily. Medical tablet 07 [place] divalproex Yes 500mg QD Take [address] (DEPAKOTE) 6-30 mg by [facility] 500 MG EC 10:31: mouth Medical tablet 07 nightly. [place] finasteride 0 Yes 5mg QD Take [address] (PROSCAR) 5 6-30 by mouth Luke s mg tablet 10:31: daily. Medica l 07 [place] gabapentin 0 Yes 100mg Q.[id number] Take [address] (NEURONTIN) 6-30 [id number] mg by L ukes 100 MG 10:31: 3D mouth 3 Medical capsule 07 (three) Center times daily. mirtazapine Yes 7.5mg QD Take 7.[address] (REMERON) 6-30 mg by [facility] 7.5 MG 10:31: mouth Medical tablet 07 nightly. Center sertraline Yes 100mg QD Take [address] (ZOLOFT) 6-30 mg by [facility] 100 MG 10:31: mouth Medical tablet 07 daily. Center tamsulosin Yes .4mg QD Take 0.[address] (FLOMAX) 6-30 mg by [facility] 0.4 mg Cap 10:31: mouth Medica l 24 hr 07 daily. Center capsule calcitrioL Yes .25ug QD Take 0.[address] (ROCALTROL) 6-30 mcg by [facility] 0.25 MCG 10:31: mouth Medical capsule 07 daily. Center miscellaneo Yes Infected Please [facility] us [...] Apply steri-stri ps to the portals.. miscellaneo [address] [facility] medical 02-[address] [facility] [facility] supply Misc 00:00: [facility] Medic al 00 Wheelchair [facility] . miscellaneo 2021-[address] [facility] 13 [facility] supply Misc 00:00: [facility] Medic al 00 [facility] . miscellaneo 2021-[address] [facility] medical 02-[facility] supply Misc 00:00: [facility] Medic al 00 Wheelchair [facility] . meropenem 2021- No 500mg Inject [address] (MERREM) 6- 06-30 mg [facility] 500 mg in 00:00: 23:59 intravenou M edical NS 100 mL 00 :00 sly every Cente r (V2B) IVPB 12 (twelve) hours for 21 days. meropenem 2021- No 500mg Inject [address] (MERREM) 6- 06-30 mg [facility] 500 mg in 00:00: 23:59 intravenou M edical NS 100 mL 00 :00 sly every Cente r (V2B) IVPB 12 (twelve) hours for 21 days. meropenem 2021- No 500mg Inject [address] (MERREM) 6 06-30 mg [facility] 500 mg in 00:00: 23:59 intravenou M edical NS 100 mL 00 :00 sly every Cente r (V2B) IVPB 12 (twelve) hours for 21 days. miscellaneo 2021- No S/P AKA Patient [facility] 02-06 (above knee needs:- [facility] supply Misc 00:00: 00:00 amputation) [facility] 00 :00 unilateral, Bed- Center left ([facility]) Shower Transfer Bench- Narrow Transport- Elevated toilet seat- Bed side Commode- Wheel Chair Cushion : Gel Foam. doxycycline No S/P AKA 100mg Q.5D Take [address] (DORYX) 100 02-06 (above knee tablet [facility] MG EC 00:00: 00:00 amputation) (100 mg M edical tablet 00 :00 unilateral, total) by C enter left ([facility]) mouth 2 (two) times daily for 10 days. miscellaneo 2021- No S/P AKA Patient [facility] 02-06 (above knee needs:- [facility] supply Misc 00:00: 00:00 amputation) [facility] 00 :00 unilateral, Bed- Center left ([facility]) Shower Transfer Bench- Narrow Transport- Elevated toilet seat- Bed side Commode- Wheel Chair Cushion : Gel Foam. doxycycline 2021- No S/P AKA 100mg Q.5D Take [address] (DORYX) 100 02-06 (above knee tablet [facility] MG EC 00:00: 00:00 amputation) (100 mg M edical tablet 00 :00 unilateral, total) by C enter left ([facility]) mouth 2 (two) times daily for 10 days. miscellaneo 2021- No S/P AKA Patient [facility] medical 02-06 (above knee needs:- [facility] supply Misc 00:00: 00:00 amputation) [facility] 00 :00 unilateral, Bed- Center left ([facility]) Shower Transfer Bench- Narrow Transport- Elevated toilet seat- Bed side Commode- Wheel Chair Cushion : Gel Foam. doxycycline 2021- No S/P AKA 100mg Q.5D Take [address] (DORYX) 100 02-06 (above knee tablet [facility] MG EC 00:00: 00:00 amputation) (100 mg M edical tablet 00 :00 unilateral, total) by C enter left ([facility]) mouth 2 (two) times daily for 10 days. aspirin 81 Yes 81mg QD Take [address] MG EC 4-29 by mouth [facility] tablet 17:36: daily. Medical [address] [place] [address] atorvastati Yes 10mg QD Take [address] n (LIPITOR) 4-29 by mouth Luke s 10 MG 17:36: daily. Medical tablet 27 [place] buPROPion Yes 50mg QD Take [address] (WELLBUTRIN 4-29 by mouth Luke s ) 100 MG 17:36: daily. Medical tablet 27 [place] divalproex Yes 500mg QD Take [address] (DEPAKOTE) 4-29 mg by [facility] 500 MG EC 17:36: mouth Medical tablet 27 nightly. [place] finasteride Yes 5mg QD Take [address] (PROSCAR) 5 4-29 by mouth Luke s mg tablet 17:36: daily. Medica l 27 [place] gabapentin Yes 100mg Q.[id number] Take [address] (NEURONTIN) 4-29 [id number] mg by L ukes 100 MG 17:36: 3D mouth 3 Medical capsule 27 (three) Center times daily. mirtazapine Yes 7.5mg QD Take 7.[address] (REMERON) 4-29 mg by [facility] 7.5 MG 17:36: mouth Medical tablet 27 nightly. [place] sertraline Yes 100mg QD Take [address] (ZOLOFT) 4-29 mg by [facility] 100 MG 17:36: mouth Medical tablet 27 daily. [place] tamsulosin Yes .4mg QD Take 0.[address] (FLOMAX) 4-29 mg by [facility] 0.4 mg Cap 17:36: mouth Medica l 24 hr 27 daily. [place] capsule calcitrioL Yes .25ug QD Take 0.[address] (ROCALTROL) 4-29 mcg by [facility]ukes 0.25 MCG 17:36: mouth Medical capsule 27 daily. [place] amLODIPine 2021- No 10mg QD Take [address] (NORVASC) 01-10- by mouth [facility] 10 MG 11:04: 00:00 daily. Medical tablet 11 :00 [place] cloNIDine 2021- No .25mg Q.[id number] Take 0.[address] HCL -10 01- [id number] mg by [facility] (CATAPRES) 11:04: 00:00 3D mouth 3 Med ical 0.2 MG 11 :00 (three) Center tablet times daily. amLODIPine 2021- No 10mg QD Take [address] (NORVASC) 01-10- by mouth [facility] 10 MG 11:04: 00:00 daily. Medical tablet 11 :00 [place] cloNIDine 2021- No .25mg Q.06134045 Take 0.[address] HCL -10 01- [id number] mg by [facility] (CATAPRES) 11:04: 00:00 3D mouth 3 Med ical 0.2 MG 11 :00 (three) Center tablet times daily. amLODIPine 2021- No 10mg QD Take [address] (NORVASC) -10 01-29 by mouth [facility] 10 MG 11:04: 00:00 daily. Medical tablet 11 :00 [place] cloNIDine 2021- No .25mg Q.[id number] Take 0.[address] HCL -10 01- [id number] mg by [facility] (CATAPRES) 11:04: 00:00 3D mouth 3 Med ical 0.2 MG 11 :00 (three) Center tablet times daily. amLODIPine 2021- No 10mg QD Take [address] (NORVASC) 01-10 by mouth [facility] 10 MG 11:04: 00:00 daily. Medical tablet 11 :00 Center cloNIDine 2021- No .25mg Q.[id number] Take 0.[address] HCL 01-10 [id number] mg by [facility] (CATAPRES) 11:04: 00:00 3D mouth 3 Med ical 0.2 MG 11 :00 (three) Center tablet times daily. sodium 2021-2021- No 1300mg Q.[id number] Take [address] bicarbonate 01-10- [id number] tablets [facility] 650 MG 00:00: 23:59 3D [...] for 30 days. sodium 2021-2021- No 1300mg Q.[id number] Take [address] bicarbonate 01-10 [id number] tablets [facility] 650 MG 00:00: 23:59 3D [...] 30 days. sodium 2021-0 2021- No 1300mg Q.16412177 Take [address] bicarbonate -09 02- [id number] tablets [facility] 650 MG 00:00: 23:59 3D [...] 30 days. sodium 2021-0 2021- No 1300mg Q.31709126 Take [address] bicarbonate -09 02- [id number] tablets [facility] 650 MG 00:00: 23:59 3D [...] 10 days. clindamycin 2021-0 2021- No 300mg Q.55890067 Take [address] (CLEOCIN) 01-10- [id number] capsule [facility] 300 MG 00:00: 23:59 3D [...] 10 days. clindamycin 2021-0 2021- No 300mg Q.[id number] Take [address] (CLEOCIN) 01-10 05-09 [id number] capsule [facility] 300 MG 00:00: 23:59 3D (300 mg Medical capsule 00 :00 total) by Center mouth 3 (three) times daily for 10 days. docusate 2021-0 2022- No 100mg Take 1 [facility] sodium 01-10- capsule [facility] (COLACE) 00:00: 23:59 (100 mg Medic al 100 MG 00 :00 total) by Center capsule mouth 2 (two) times daily as needed for Constipati on for up to 10 days. clindamycin 2021-0 2- No 300mg Q.73808883 Take [address] (CLEOCIN) 01-10- [id number] capsule [facility] 300 MG 00:00: 23:59 3D [...] 10 days. clindamycin 2021-0 2021- No 300mg Q.[id number] Take [address] (CLEOCIN) 01-10 [id number] capsule [facility] 300 MG 00:00: 23:59 3D (300 mg Medical capsule 00 :00 total) by Center mouth 3 (three) times daily for 10 days. amLODIPine 0 Yes 10mg QD Take [address] (NORVASC) 4-20 by mouth [facility] 10 MG 22:13: daily. Medical tablet 10 [place] aspirin 81 2021-0 Yes 81mg QD Take [address] MG EC 4-20 by mouth [facility] tablet 22:13: daily. Medical 10 [place] atorvastati 0 Yes 10mg QD Take [address] n (LIPITOR) 4-20 by mouth Luke s 10 MG 22:13: daily. Medical tablet 10 [place] buPROPion 2021-0 Yes 50mg QD Take [address] (WELLBUTRIN 4-20 by mouth Luke s ) 100 MG 22:13: daily. Medical tablet 10 [place] divalproex 2021-0 Yes 500mg QD Take [address] (DEPAKOTE) 4-20 mg by [facility] 500 MG EC 22:13: mouth Medical tablet 10 nightly. [place] finasteride Yes 5mg QD Take [address] (PROSCAR) 5 4-20 by mouth Luke s mg tablet 22:13: daily. Medica l 10 [place] gabapentin 0 Yes 100mg Q.[id number] Take [address] (NEURONTIN) 4-20 [id number] mg by L ukes 100 MG 22:13: 3D mouth 3 Medical capsule 10 (three) Center times daily. mirtazapine Yes 7.5mg QD Take 7.[address] (REMERON) 4-20 mg by [facility] 7.5 MG 22:13: mouth Medical tablet 10 nightly. [place] sertraline Yes 100mg QD Take [address] (ZOLOFT) 4-20 mg by [facility] 100 MG 22:13: mouth Medical tablet 10 daily. [place] tamsulosin Yes .4mg QD Take 0.[address] (FLOMAX) 4-20 mg by [facility] 0.4 mg Cap 22:13: mouth Medica l 24 hr 10 daily. [place] capsule calcitrioL Yes .25ug QD Take 0.[address] (ROCALTROL) 4-20 mcg by [facility]ukes 0.25 MCG 22:13: mouth Medical capsule 10 daily. [place] cloNIDine Yes .25mg Q.[id number] Take 0.[address] HCL 4-20 [id number] mg by [facility] (CATAPRES) 22:13: 3D mouth 3 Medi titus 0.2 MG 10 (three) Center tablet times daily. amLODIPine Yes 10mg QD Take [address] (NORVASC) 4-20 by mouth [facility] 10 MG 22:13: daily. Medical tablet 10 [place] aspirin 81 0 Yes 81mg QD Take [address] MG EC 4-20 by mouth [facility] tablet 22:13: daily. Medical 10 Center atorvastati Yes 10mg QD Take [address] n (LIPITOR) 4-20 by mouth Luke s 10 MG 22:13: daily. Medical tablet 10 Center buPROPion Yes 50mg QD Take [address] (WELLBUTRIN 4-20 by mouth Luke s ) 100 MG 22:13: daily. Medical tablet 10 [place] divalproex Yes 500mg QD Take [address] (DEPAKOTE) 4-20 mg by [facility] 500 MG EC 22:13: mouth Medical tablet 10 nightly. [place] finasteride 0 Yes 5mg QD Take [address] (PROSCAR) 5 4-20 by mouth Luke s mg tablet 22:13: daily. Medica l 10 [place] gabapentin 0 Yes 100mg Q.[id number] Take [address] (NEURONTIN) 4-20 [id number] mg by L ukes 100 MG 22:13: 3D mouth 3 Medical capsule 10 (three) Center times daily. mirtazapine Yes 7.5mg QD Take 7.[address] (REMERON) 4-20 mg by [facility] 7.5 MG 22:13: mouth Medical tablet 10 nightly. [place] sertraline Yes 100mg QD Take [address] (ZOLOFT) 4-20 mg by [facility] 100 MG 22:13: mouth Medical tablet 10 daily. [place] tamsulosin Yes .4mg QD Take 0.[address] (FLOMAX) 4-20 mg by [facility] 0.4 mg Cap 22:13: mouth Medica l 24 hr 10 daily. [place] capsule calcitrioL Yes .25ug QD Take 0.[address] (ROCALTROL) 4-20 mcg by [facility]ukes 0.25 MCG 22:13: mouth Medical capsule 10 daily. [place] cloNIDine Yes .25mg Q.[id number] Take 0.[address] HCL 4-20 [id number] mg by [facility] (CATAPRES) 22:13: 3D mouth 3 Medi titus 0.2 MG 10 (three) Center tablet times daily. amLODIPine 0 Yes 10mg QD Take [address] (NORVASC) 4-20 by mouth [facility] 10 MG 22:13: daily. Medical tablet 10 [place] aspirin 81 2021-0 Yes 81mg QD Take [address] MG EC 4-20 by mouth [facility] tablet 22:13: daily. Medical 10 [place] atorvastati 0 Yes 10mg QD Take [address] n (LIPITOR) 4-20 by mouth Luke s 10 MG 22:13: daily. Medical tablet 10 [place] buPROPion 0 Yes 50mg QD Take [address] (WELLBUTRIN 4-20 by mouth Luke s ) 100 MG 22:13: daily. Medical tablet 10 [place] divalproex 0 Yes 500mg QD Take [address] (DEPAKOTE) 4-20 mg by [facility] 500 MG EC 22:13: mouth Medical tablet 10 nightly. [place] finasteride 0 Yes 5mg QD Take [address] (PROSCAR) 5 4-20 by mouth Luke s mg tablet 22:13: daily. Medica l 10 [place] gabapentin 0 Yes 100mg Q.[id number] Take [address] (NEURONTIN) 4-20 [id number] mg by L ukes 100 MG 22:13: 3D mouth 3 Medical capsule 10 (three) Center times daily. mirtazapine Yes 7.5mg QD Take 7.[address] (REMERON) 4-20 mg by [facility] 7.5 MG 22:13: mouth Medical tablet 10 nightly. [place] sertraline Yes 100mg QD Take [address] (ZOLOFT) 4-20 mg by [facility] 100 MG 22:13: mouth Medical tablet 10 daily. [place] tamsulosin Yes .4mg QD Take 0.[address] (FLOMAX) 4-20 mg by [facility] 0.4 mg Cap 22:13: mouth Medica l 24 hr 10 daily. [place] capsule calcitrioL Yes .25ug QD Take 0.[address] (ROCALTROL) 4-20 mcg by [facility]ukes 0.25 MCG 22:13: mouth Medical capsule 10 daily. [place] cloNIDine 0 Yes .25mg Q.[id number] Take 0.[address] HCL 4-20 [id number] mg by [facility] (CATAPRES) 22:13: 3D mouth 3 Medi titus 0.2 MG 10 (three) Center tablet times daily. amLODIPine 0 Yes 10mg QD Take [address] (NORVASC) 4-16 by mouth [facility] 10 MG 20:44: daily. Medical tablet 10 [place] aspirin 81 0 Yes 81mg QD Take [address] MG EC 4-16 by mouth [facility]ukes tablet 20:44: daily. Medical 10 [place] atorvastati Yes 10mg QD Take [address] n (LIPITOR) 4-16 by mouth Luke s 10 MG 20:44: daily. Medical tablet 10 [place] buPROPion 0 Yes 50mg QD Take [address] (WELLBUTRIN 4-16 by mouth Luke s ) 100 MG 20:44: daily. Medical tablet 10 [place] divalproex Yes 500mg QD Take [address] (DEPAKOTE) 4-16 mg by [facility] 500 MG EC 20:44: mouth Medical tablet 10 nightly. [place] finasteride Yes 5mg QD Take [address] (PROSCAR) 5 4-16 by mouth Luke s mg tablet 20:44: daily. Medica l 10 [place] gabapentin Yes 100mg Q.[id number] Take [address] [address] (NEURONTIN) 4-16 [id number] mg by L ukes 100 MG 20:44: 3D mouth 3 Medical capsule 10 (three) Center times daily. mirtazapine Yes 7.5mg QD Take 7.[address] (REMERON) 4-16 mg by [facility] 7.5 MG 20:44: mouth Medical tablet 10 nightly. [place] sertraline Yes 100mg QD Take [address] (ZOLOFT) 4-16 mg by [facility] 100 MG 20:44: mouth Medical tablet 10 daily. [place] tamsulosin Yes .4mg QD Take 0.[address] (FLOMAX) 4-16 mg by [facility] 0.4 mg Cap 20:44: mouth Medica l 24 hr 10 daily. [place] capsule calcitrioL 0 Yes .25ug QD Take 0.[address] (ROCALTROL) 4-16 mcg by [facility]ukes 0.25 MCG 20:44: mouth Medical capsule 10 daily. [place] cloNIDine 0 Yes .25mg Q.[id number] Take 0.[address] HCL 4-16 [id number] mg by [facility]ukes (CATAPRES) 20:44: 3D mouth 3 Medi titus 0.2 MG 10 (three) Center tablet times daily. amLODIPine Yes 10mg QD Take [address] (NORVASC) 4-16 by mouth [facility] 10 MG 20:44: daily. Medical tablet 10 [place] aspirin 81 0 Yes 81mg QD Take [address] MG EC 4-16 by mouth [facility]ukes tablet 20:44: daily. Medical 10 [place] atorvastati 0 Yes 10mg QD Take [address] [facility] (LIPITOR) 4-16 by mouth Luke s 10 MG 20:44: daily. Medical tablet 10 [place] buPROPion Yes 50mg QD Take [address] (WELLBUTRIN 4-16 by mouth Luke s ) 100 MG 20:44: daily. Medical tablet 10 [place] divalproex Yes 500mg QD Take [address] (DEPAKOTE) 4-16 mg by [facility] 500 MG EC 20:44: mouth Medical tablet 10 nightly. [place] finasteride Yes 5mg QD Take [address] (PROSCAR) 5 4-16 by mouth Luke s mg tablet 20:44: daily. Medica l 10 [place] gabapentin Yes 100mg Q.[id number] Take [address] (NEURONTIN) 4-16 [id number] mg by L ukes 100 MG 20:44: 3D mouth 3 Medical capsule 10 (three) Center times daily. mirtazapine Yes 7.5mg QD Take 7.[address] (REMERON) 4-16 mg by [facility] 7.5 MG 20:44: mouth Medical tablet 10 nightly. [place] sertraline Yes 100mg QD Take [address] (ZOLOFT) 4-16 mg by [facility] 100 MG 20:44: mouth Medical tablet 10 daily. [place] tamsulosin Yes .4mg QD Take 0.[address] (FLOMAX) 4-16 mg by [facility] 0.4 mg Cap 20:44: mouth Medica l 24 hr 10 daily. [place] capsule calcitrioL Yes .25ug QD Take 0.[address] (ROCALTROL) 4-16 mcg by [facility]ukes 0.25 MCG 20:44: mouth Medical capsule 10 daily. [place] cloNIDine Yes .25mg Q.[id number] Take 0.[address] HCL 4-16 [id number] mg by [facility] (CATAPRES) 20:44: 3D mouth 3 Medi titus 0.2 MG 10 (three) Center tablet times daily. amLODIPine 0 Yes 10mg QD Take [address] (NORVASC) 4-16 by mouth [facility] 10 MG 20:44: daily. Medical tablet 10 [place] aspirin 81 0 Yes 81mg QD Take [address] MG EC 4-16 by mouth [facility] tablet 20:44: daily. Medical 10 [place] atorvastati 0 Yes 10mg QD Take [address] [facility] (LIPITOR) 4-16 by mouth Luke s 10 MG 20:44: daily. Medical tablet 10 [place] buPROPion 0 Yes 50mg QD Take [address] (WELLBUTRIN 4-16 by mouth Luke s ) 100 MG 20:44: daily. Medical tablet 10 [place] divalproex 0 Yes 500mg QD Take [address] (DEPAKOTE) 4-16 mg by [facility] 500 MG EC 20:44: mouth Medical tablet 10 nightly. [place] finasteride 0 Yes 5mg QD Take [address] (PROSCAR) 5 4-16 by mouth Luke s mg tablet 20:44: daily. Medica l 10 [place] gabapentin 0 Yes 100mg Q.[id number] Take [address] (NEURONTIN) 4-16 [id number] mg by L ukes 100 MG 20:44: 3D mouth 3 Medical capsule 10 (three) Center times daily. mirtazapine 0 Yes 7.5mg QD Take 7.[address] (REMERON) 4-16 mg by [facility] 7.5 MG 20:44: mouth Medical tablet 10 nightly. [place] sertraline 0 Yes 100mg QD Take [address] (ZOLOFT) 4-16 mg by [facility] 100 MG 20:44: mouth Medical tablet 10 daily. [place] tamsulosin 0 Yes .4mg QD Take 0.[address] (FLOMAX) 4-16 mg by [facility]ukes 0.4 mg Cap 20:44: mouth Medica l 24 hr 10 daily. [place] capsule calcitrioL 0 Yes .25ug QD Take 0.[address] (ROCALTROL) 4-16 mcg by Lukes 0.25 MCG 20:44: mouth Medical capsule 10 daily. Center cloNIDine Yes .25mg Q.[id number] Take 0.[address] HCL 4-16 [id number] mg by [place] (CATAPRES) 20:44: 3D mouth 3 Medi titus 0.2 MG 10 (three) Center tablet times daily. Aspirin 81 Aspirin 81 No 1{table QD Aspirin 81 MG MG t} MG Metoprolol Metoprolol No BID Metoprolol Tartrate 50 Tartrate 50 Tartrate 50 Neurontin Neurontin Yes Jose Manuel 1 capsule [facility] Metoprolol Metoprolol Yes Jose Manuel TAKE ONE Common Tartrate Tartrate Baum TABLET BY S [employer] MOUTH - [facility] TWICE A [facility] DAY. TAKE [facility] WITH Medical METOPROLOL [place] 25MG TO EQUAL TOTAL DOSE OF 75MG TWICE DAILY Remeron Remeron Yes Jose Manuel 1 tablet Com mon Baum at bedtime [facility] Depakote ER Depakote ER Yes Jose Manuel not Common Baum defined [facility] Metoprolol Metoprolol Yes Jose Manuel TAKE ONE Common Tartrate Tartrate Baum TABLET BY S [employer] MOUTH - [facility] DAY. TAKE [facility] WITH Medical METOPROLOL [place] 50MG TO TOTAL DOSE OF 75MG Simvastatin Simvastatin Yes Jose Manuel 1 tablet [facility] evening [facility] Zoloft Zoloft Yes Jose Amnuel 1 tablet Commo n Baum [facility] Colace Colace Yes Jose Manuel 1 capsule Comm on Baum as needed [facility] Aspirin Aspirin Yes Jose Manuel 1 tablet Com mon Baum [facility] Zoloft 100 Zoloft 100 No 1{table QD Zoloft 100 MG MG t} MG Metoprolol Metoprolol No BID Metoprolol Tartrate 25 Tartrate 25 Tartrate 25 Colace 100 Colace 100 No 1{capsu QD Colace 100 MG MG le_as_n MG eeded} Remeron 30 Remeron 30 No 1{table QD Remeron 30 MG MG t_at_be MG dtime} Simvastatin Simvastatin No 1{table QD Simvastati 40 MG 40 MG t_in_th n 40 MG e_eveni ng} Depakote ER Depakote ER No Depakote 500 MG 500 MG ER 500 MG Immunizations Ordered Immunization Filled Immunization Date Status Commen ts Source Name Name Prevnar 13 Prevnar 13 2019-01-31 Completed [facility] Vaccine -Pneumonia Vaccine 12:11:00 - [facility] Vital Signs Vital Name Observation Time Observation [...] kg Systolic blood 2022-03-13 10:31:00 114 mm[Hg] [facility] Diastolic blood 2022-03-13 10:31:00 74 mm[Hg] [facility] Heart rate 2022-03-13 10:31:00 101 /min [facility] Body temperature 2022-03-13 10:31:00 36.22 July [facility] Body height 2022-03-13 10:31:00 165.1 cm [facility] Body weight 2022-03-13 10:31:00 70.761 kg [facility] BMI 2022-03-13 10:31:00 25.96 kg/m2 [facility] Respiratory rate 2022-02-20 15:15:00 18 /min [facility] Oxygen saturation in 2022-02-20 15:15:00 97 /min [facility] Arterial blood by Medical Ce nter Pulse oximetry Systolic blood 2022-01-10 16:00:00 123 mm[Hg] [facility] Diastolic blood 2022-01-10 16:00:00 60 mm[Hg] [facility] Heart rate 2022-01-10 16:00:00 76 /min [facility] Body temperature 2022-01-10 16:00:00 36.11 July [facility] Respiratory rate 2022-01-10 16:00:00 18 /min [facility] Oxygen saturation in 2022-01-10 16:00:00 97 /min [facility] Arterial blood by Medical Ce nter Pulse oximetry Heart rate 2022-01-09 14:49:00 83 /min [facility] Respiratory rate 2022-01-09 14:49:00 18 /min [facility] Oxygen saturation in 2022-01-09 14:49:00 93 /min [facility] Arterial blood by Medical Ce nter Pulse oximetry Systolic blood 2022-01-09 13:00:00 135 mm[Hg] [facility] Diastolic blood 2022-01-09 13:00:00 69 mm[Hg] [facility] Body temperature 2022-01-09 13:00:00 36.22 July [facility] Systolic blood 2022-01-06 04:00:00 149 mm[Hg] [facility] Diastolic blood 2022-01-06 04:00:00 64 mm[Hg] [facility] Heart rate 2022-01-06 04:00:00 94 /min [facility] Body temperature 2022-01-06 04:00:00 36.39 July [facility] Respiratory rate 2022-01-06 04:00:00 18 /min [facility] Oxygen saturation in 2022-01-06 04:00:00 95 /min [facility] Arterial blood by Medical Ce nter Pulse oximetry Systolic blood 2022-01-02 03:32:00 135 mm[Hg] [facility] Diastolic blood 2022-01-02 03:32:00 65 mm[Hg] [facility] Heart rate 2022-01-02 03:32:00 96 /min [facility] Body temperature 2022-01-02 03:32:00 36.83 July [facility] Respiratory rate 2022-01-02 03:32:00 18 /min [facility] Oxygen saturation in 2022-01-02 03:32:00 95 /min [facility] Arterial blood by Medical Ce nter Pulse oximetry Systolic blood 2022-01-01 08:28:00 133 mm[Hg] [facility] Diastolic blood 2022-01-01 08:28:00 63 mm[Hg] [facility] Heart rate 2022-01-01 08:28:00 83 /min [facility] Respiratory rate 2022-01-01 07:35:00 18 /min [facility] Oxygen saturation in 2022-01-01 07:35:00 95 /min [facility] Arterial blood by Medical Ce nter Pulse oximetry Body temperature 2022-01-01 07:25:00 36.39 July [facility] Systolic blood 2021-12-31 08:17:00 140 mm[Hg] [facility] Diastolic blood 2021-12-31 08:17:00 86 mm[Hg] [facility] Heart rate 2021-12-31 08:17:00 93 /min [facility] Body temperature 2021-12-31 08:17:00 36.56 July [facility] Respiratory rate 2021-12-31 08:17:00 20 /min [facility] Oxygen saturation in 2021-12-31 08:17:00 95 /min [facility] Arterial blood by Medical Ce nter Pulse oximetry Heart rate 2021-12-30 07:37:00 83 /min [facility] Respiratory rate 2021-12-30 07:37:00 18 /min [facility] Oxygen saturation in 2021-12-30 07:37:00 95 /min [facility] Arterial blood by Medical Ce nter Pulse oximetry Systolic blood 2021-12-30 07:35:00 133 mm[Hg] [facility] Diastolic blood 2021-12-30 07:35:00 74 mm[Hg] [facility] Body temperature 2021-12-30 07:35:00 36.56 July [facility] Body height 2021-12-28 18:30:00 170.2 cm [facility] Body weight 2021-12-28 18:30:00 70.806 kg [facility] BMI 2021-12-28 18:30:00 24.45 kg/m2 [facility] Procedures Procedure Date / Time Performing Clinician Source Performed CBC W/PLT COUNT & AUTO 2022-02-20 05:24:00 Yogi Munoz [facility] DIFFERENTIAL [facility] BASIC METABOLIC PANEL (7) 2022-02-20 05:24:[address] [facility] CBC W/PLT COUNT & AUTO 2022-02-20 05:24:00 Yogi uMnoz [facility] DIFFERENTIAL [facility] POCT-GLUCOSE METER 2022-02-20 00:13:[address] [facility] BASIC METABOLIC PANEL (7) 2022-02-19 05:09:00 Wilton Baum CH I [facility] SARS-COV2/RT-PCR ([facility] & 2022-02-18 20:22:00 Lashawn Watts [facility] REF LABS) [facility] US RENAL COMPLETE 2022-02-18 19:43:00 Wilton Baum [facility] BASIC METABOLIC PANEL (7) 2022-02-18 03:50:00 Wilton Baum [facility] XR CHEST PA OR AP 1 VIEW 2022-02-17 15:52:00 Yogi Munoz [facility] IN DEPT [facility] BASIC METABOLIC PANEL (7) 2022-02-17 05:11:00 Wilton Baum [facility] BASIC METABOLIC PANEL (7) 2022-02-15 14:56:00 Wilton Baum [facility] CBC W/PLT COUNT & AUTO 2022-02-14 04:39:00 Lashawn Watts [facility] DIFFERENTIAL [facility] CBC W/PLT COUNT & AUTO 2022-02-14 04:39:00 Lashawn Watts [facility] DIFFERENTIAL [facility] CBC W/PLT COUNT & AUTO 2022-02-13 05:00:00 Lashawn Watts [facility] DIFFERENTIAL [facility] BASIC METABOLIC PANEL (7) 2022-02-13 05:00:00 Lashawn Watts CH [facility] CBC W/PLT COUNT & AUTO 2022-02-13 05:00:00 Lashawn Watts CHI DIFFERENTIAL [facility] ANAEROBIC CULTURE 2022-02-12 14:34:18 Lashawn Watts [facility] SURGICALLY OBTAINED 2022-02-12 14:34:18 Lashawn Watts [facility] u[facility] CULTURE + GRAM STAIN [facility] ANAEROBIC CULTURE 2022-02-12 14:28:22 Lasahwn Watts [facility] SURGICALLY OBTAINED 2022-02-12 14:28:22 Lashawn Watts [facility] CULTURE + GRAM STAIN [facility] FUNGUS CULTURE + SMEAR 2022-02-12 14:28:22 Lashawn Watts [facility] TISSUE EXAM 2022-02-12 14:28:00 Lashawn Watts [facility] AMPUTATION, BELOW KNEE 2022-02-12 13:40:00 Lashawn Watts [facility] WOUND CULTURE + GRAM 2022-02-11 17:56:00 Lourdes Wray [facility] STAIN [facility] BLOOD CULTURE 2022-02-11 17:53:00 Lourdes Wray [facility] CBC W/PLT COUNT & AUTO 2022-02-11 17:53:00 Lourdes Wray [facility] DIFFERENTIAL [facility] COMPREHENSIVE METABOLIC 2022-02-11 17:53:00 Lourdes Wray [facility] C-REACTIVE PROTEIN 2022-02-11 17:53:00 Johnnie Lourdes [facility] TYPE AND SCREEN, 2022-02-11 17:53:00 [place]our[place] Wray [facility] AUTOMATED [facility] CBC W/PLT COUNT & AUTO 2022-02-11 17:53:[address] [facility] XR LEG / TIBIA AND FIBULA 2022-02-11 17:49:00 Lourdes Wray [facility] 2 [facility] SARS-COV2/RT-PCR ([facility] & 2022-02-11 17:31:00 Lashawn Watts [facility] REF LABS) [facility] COMPREHENSIVE METABOLIC 2022-01-10 11:20:00 Josselyn Zavala I [facility] CBC W/PLT COUNT & AUTO 2022-01-10 11:20:[address] [facility] CBC W/PLT COUNT & AUTO 2022-01-10 11:20:[address] [facility] (MANUAL DIFFERENTIAL) 2022-01-10 11:20:00 [facility] POCT-GLU[facility]SE MET[facility] 2022-01-09 21:27:00 Josselyn Zavala [facility] SODIUM, RANDOM URINE 2022-01-09 17:31:00 Shakira Richard [facility] POTASSIUM, RANDOM URINE 2022-01-09 17:31:00 [facility] CHLORIDE, RANDOM URINE 2022-01-09 17:31:00 [facility] COMPREHENSIVE METABOLIC 2022-01-09 04:29:00 Josselyn Zavala [facility] CBC W/PLT COUNT & AUTO 2022-01-09 04:29:00 [facility] MAGNESIUM 2022-01-09 04:29:00 Josselyn Zavala [facility] CBC W/PLT COUNT & AUTO 2022-01-09 04:29:00 Josselyn Zavala [facility] ANTI-NUCLEAR ANTIBODY 2022-01-09 04:29:00 Shakira Richard [facility] ([facility]) [facility] POCT-GLUCOSE METER 2022-01-08 21:07:00 Josselyn Zavala [facility] COMPREHENSIVE METABOLIC 2022-01-08 04:49:00 Josselyn Zavala [facility] CBC W/PLT COUNT & AUTO 2022-01-08 04:49:00 Josselyn Zavala [facility] MAGNESIUM 2022-01-08 04:49:00 [facility] CBC W/PLT COUNT & AUTO 2022-01-08 04:49:00 Josselyn Zavala [facility] (MANUAL DIFFERENTIAL) 2022-01-08 04:49:00 Josselyn Zavala [facility] POCT-GLUCOSE METER 2022-01-07 21:27:00 Lucas [facility] BLOOD GAS, ARTERIAL 2022-01-07 14:52:00 [facility] XR CHEST 1 VIEW PORTABLE 2022-01-07 14:42:[address] [facility] CBC W/PLT COUNT & AUTO 2022-01-07 06:03:00 Stefanie, Lashawn Delacruz DIFFERENTIAL [facility] COMPREHENSIVE METABOLIC 2022-01-07 06:03:00 Josselyn Zavala [facility] MAGNESIUM 2022-01-07 06:03:00 [facility] W/[facility]T COUNT & AUTO 2022-01-07 06:03:00 Lashawn Watts [facility]I DIFFERENTIAL [facility] (MANUAL DIFFERENTIAL) 2022-01-07 06:03:00 Lashawn Watts [facility] BASIC METABOLIC PANEL (7) 2022-01-06 05:35:00 Lashawn Watts CH, I [facility] CBC W/PLT COUNT & AUTO 2022-01-06 05:35:00 Lashawn Watts [facility] DIFFERENTIAL [facility] CBC W/PLT COUNT & AUTO 2022-01-06 05:35:00 Lashawn Watts [facility] Jayme DIFFERENTIAL [facility] (MANUAL DIFFERENTIAL) 2022-01-06 05:35:00 Lashawn Watts [facility] PREPARE LEUKO-REDUCED RBC 2022-01-05 23:54:00 Renzo Waller [facility] CBC W/PLT COUNT & AUTO 2022-01-05 05:34:00 [facility] DIFFERENTIAL [facility] COMPREHENSIVE METABOLIC 2022-01-05 05:34:00 Josselyn Zavala [facility] MAGNESIUM 2022-01-05 05:34:00 Josselyn Zavala [facility] CBC W/PLT COUNT & AUTO 2022-01-05 05:34:00 [facility] (MANUAL DIFFERENTIAL) 2022-01-05 05:34:00 Lashawn Watts [facility] TRANSFUSE LEUKO-REDUCED 2022-01-04 14:15:00 Renzo Waller [facility] RED BLOOD CELLS Medical Center AMPUTATION, ABOVE KNEE 2022-01-04 13:21:00 Lashawn Watts [facility] TISSUE EXAM 2022-01-04 13:10:00 Lashawn Watts [facility] CBC W/PLT COUNT & AUTO 2022-01-04 05:00:00 [facility] DIFFERENTIAL [facility] COMPREHENSIVE METABOLIC 2022-01-04 05:00:00 Josselyn Zavala CH [facility] MAGNESIUM 2022-01-04 05:00:00 Josselyn Zavala [facility] COMPLEMENT COMPONENT C4 2022-01-04 05:00:00 Josselyn Zavala [facility] CBC W/PLT COUNT & AUTO 2022-01-04 05:00:00 Lashawn Watts [facility] DIFFERENTIAL [facility] PREPARE LEUKO-REDUCED RBC 2022-01-03 23:55:00 [facility]OV[facility] ([facility] & 2022-01-03 20:52:00 Josselyn Zavala [facility] REF LABS) [facility] PROTHROMBIN TIME/INR 2022-01-03 16:57:00 [facility] TYPE AND SCREEN, 2022-01-03 16:57:00 Dianna Ratliff [facility] SODIUM, RANDOM URINE 2022-01-03 16:49:00 [facility] POTASSIUM, RANDOM URINE 2022-01-03 16:49:00 [facility] OSMOLALITY, URINE 2022-01-03 16:49:00 [facility] CREATININE, RANDOM URINE 2022-01-03 16:49:00 [facility] PROTEIN, RANDOM URINE 2022-01-03 16:49:00 [facility],ABSCESS KNEE 2022-01-03 07:00:00 Stefanie [facility] AMPUTATION,TOE 2022-01-03 07:00:00 Stefanie [facility] POCT-GLUCOSE METER 2022-01-03 06:36:00 Lucas [facility] APTT 2022-01-03 06:27:00 [facility] COMPREHENSIVE METABOLIC 2022-01-03 06:27:00 [facility]elyn [facility] W/PLT COUNT & AUTO 2022-01-03 06:27:00 [facility] 2022-01-03 06:27:00 Lucas[facility] CBC W/PLT COUNT & AUTO 2022-01-03 06:27:00 Lucas [facility] (MANUAL DIFFERENTIAL) 2022-01-03 06:27:00 Lucas [facility] TISSUE EXAM 2022-01-02 20:03:00 Stefanie [facility] TRANSFUSE LEUKO-REDUCED 2022-01-02 19:29:00 Stefanie [facility] RED BLOOD CELLS [facility] IRRIGATION AND 2022-01-02 19:08:00 Lashawn Watts [facility] DEBRIDEMENT, ABSCESS, [facility] nter KNEE AMPUTATION, TOE 2022-01-02 19:08:00 Stefanie [facility] HEMOGLOBIN AND HEMATOCRIT 2022-01-02 17:58:00 Lashawn Watts [facility] ABORH, MANUAL 2022-01-02 17:58:00 Izzy Greenberg [facility] COMPREHENSIVE METABOLIC 2022-01-02 14:58:00 Stefanie [facility] TYPE AND SCREEN, 2022-01-02 14:58:00 Lashawn Watts [facility] AUTOMATED [facility] APTT 2022-01-02 12:17:00 [facility] APTT 2022-01-02 04:07:00 [facility] APTT 2022-01-01 19:51:00 [facility] MR LOWER EXTREMITY JOINT 2022-01-01 18:55:00 Lashawn Watts [facility] ONLY WITHOUT IV CONTRAST [facility] LEFT APTT 2022-01-01 10:02:00 [facility] CBC W/PLT COUNT & AUTO 2022-01-01 04:22:00 [facility] COMPREHENSIVE METABOLIC 2022-01-01 04:22:00 [facility] W/PLT COUNT & AUTO 2022-01-01 04:22:00 LucasJosselyn prather [facility] MR BRAIN WITHOUT IV 2021-12-31 19:50:00 Ashkan Domínguez [facility] CONTRAST [facility] APTT 2021-12-31 09:00:00 [facility] MAGNESIUM 2021-12-31 04:11:00 LucasJosselyn prather [facility] COMPREHENSIVE METABOLIC 2021-12-31 04:11:00 LucasJosselyn prather [facility] CBC W/PLT COUNT & AUTO 2021-12-31 04:11:00 LucasJosselyn prather [facility] CBC W/PLT COUNT & AUTO 2021-12-31 04:11:00 [facility] APTT 2021-12-31 00:38:00 LucasJosselyn [facility] C-REACTIVE PROTEIN 2021-12-30 15:35:00 [facility] 2021-12-30 15:35:00 Lucas, [facility]osselyn [facility] PREALBUMIN 2021-12-30 15:35:00 [facility] DOPPLER LEG 2021-12-30 12:00:00 [facility] VIEWS LEFT 2021-12-30 10:37:00 Ratliff, Dianna [facility] XR ANKLE 3 VIEWS LEFT 2021-12-30 10:37:00 Ratliff, Dianna [facility] XR LEG / TIBIA AND FIBULA 2021-12-30 10:37:00 Ratliff, Dianna [facility] 2 VIEWS LEFT [facility] 2021-12-30 06:26:00 [facility] COMPREHENSIVE METABOLIC 2021-12-30 06:26:00 [facility]osselyn [facility]ala [facility] CBC W/PLT COUNT & AUTO 2021-12-30 06:26:00 Josselyn Zavala [facility] APTT 2021-12-30 06:26:00 Josselyn Zavala [facility] CBC W/PLT COUNT & AUTO 2021-12-30 06:26:00 Josselyn Zavala [facility] APTT 2021-12-29 22:00:00 Josselyn Zavala [facility] APTT 2021-12-29 14:11:00 Josselyn Zavala [facility] 2D ECHO W/ DOPPLER 2021-12-29 11:53:24 [facility] ([facility] 2D ECHO W/ DOPPLER 2021-12-29 10:56:46 Mariely Rendon [facility] (CW/PW/COLOR) [facility] APTT 2021-12-29 05:32:00 Josselyn Zavala [facility] MAGNESIUM 2021-12-29 05:32:00 Josselyn Zavala [facility] COMPREHENSIVE METABOLIC 2021-12-29 05:32:00 Josselyn Zavala [facility] CBC W/PLT COUNT & AUTO 2021-12-29 05:32:[address] [facility] TROPONIN I 2021-12-29 05:32:00 [facility]T [facility] & AUTO 2021-12-29 05:32:00 [facility] VIEW PORTABLE 2021-12-28 23:07:00 Josselyn Zavaal [facility] / BEDSIDE Medical [place] TROPONIN I 2021-12-28 21:52:00 [facility]LO[facility] 2021-12-28 21:45:00 [facility] W/ MICROSCOPIC 2021-12-28 21:39:00 Josselyn Zavala [facility] LIPID PANEL 2021-12-28 21:36:00 Josselyn Zavala [facility] HEMOGLOBIN A1C 2021-12-28 21:36:00 [facility] COMPREHENSIVE METABOLIC 2021-12-28 21:36:00 Josselyn Zavala [facility] MAGNESIUM 2021-12-28 21:36:00 [facility] CBC W/PLT COUNT & AUTO 2021-12-28 21:36:00 [facility] 2021-12-28 21:36:00 [facility] CBC W/PLT COUNT & AUTO 2021-12-28 21:36:00 [facility]LO[facility] 2021-12-28 21:34:00 Josselyn Zavala [facility] EKG-SCANNED 2021-12-28 00:00:00 ProviderFlako [facility] Scanning [facility] Plan of Care Planned Activity Planned Date Details Comments Source Future Scheduled 2022-05-15 INFLUENZA VACCINE (#1) [facility] [code = INFLUENZA Medical Ce nter VACCINE (#1)] Future Scheduled 2022-05-[address] [...] Ce nter VACCINE (#1)] Future Scheduled 2021-09-14 Medicare IPPE (WELCOME C [...] screening Medical C enter (procedure) [code = 566590211] Future Scheduled [address] [facility] 00:00:00 aneurysm screening Medical C enter (procedure) [code = 539912190] Future Scheduled [address] [facility] 00:00:00 aneurysm screening Medical C enter (procedure) [code = 498962364] Future Scheduled [address] [facility] 00:00:00 aneurysm screening Medical C enter (procedure) [code = 577548381] Future Scheduled [address] [facility] 00:00:00 aneurysm screening Medical C enter (procedure) [code = 792542879] Future Scheduled [address] [facility] 00:00:00 aneurysm screening Medical C enter (procedure) [code = 475783166] Future Scheduled [address] [facility] 00:00:00 aneurysm screening Medical C enter (procedure) [code = 951764562] Future Scheduled [address] [facility] 00:00:00 aneurysm screening Medical C enter (procedure) [code = 814629518] Future Scheduled [address] [facility] 00:00:00 aneurysm screening Medical C enter (procedure) [code = 174242392] Future Scheduled [address] [facility] 00:00:00 aneurysm screening Medical C enter (procedure) [code = 218563781] Future Scheduled 2003 SHINGLES VACCINES (1 of [...] [facility] 00:[facility] [code = CT Colonography [facility] (combo)] Future Scheduled 1953 Screening for malignant [facility] 00:00:00 neoplasm of colon Medical Ce nter (procedure) [code = 288582340] Future Scheduled 1953 Screening for malignant [facility] 00:00:00 neoplasm of colon Medical Ce nter (procedure) [code = 280027178] Future Scheduled 1953 Screening for malignant [facility] 00:00:00 neoplasm of colon Medical Ce nter (procedure) [code = 935955628] Future Scheduled 1953 Screening for malignant [facility] 00:00:00 neoplasm of colon Medical Ce nter (procedure) [code = 142764796] Future Scheduled 1953 Sigmoidoscopy [facility]code = [facility] Future Scheduled 1953 Sigmoidoscopy [facility]code [facility] S[facility]oidoscopy] [facility] Cent[facility] r Future Scheduled 1953 CT Colonography (combo) [facility] 00:00:00 [code = CT Colonography [facility] (combo)] Future Scheduled 1953 Screening for malignant [facility] 00:00:00 neoplasm of colon Medical Ce nter (procedure) [code = 459835994] Future Scheduled 1953 Screening for malignant [facility] 00:00:00 neoplasm of colon Medical Ce nter (procedure) [code = 188290092] Future Scheduled 1953 Screening for malignant [facility] 00:00:00 neoplasm of colon Medical Ce nter (procedure) [code = 124867463] Future Scheduled 1953 Screening for malignant [facility] 00:00:00 neoplasm of colon Medical Ce nter (procedure) [code = 088112976] Future Scheduled 1953 Sigmoidoscopy [code = [facility] ([facility] 00:00:00 [code = CT Colonography [facility] (combo)] Future Scheduled 1953 Screening for malignant [facility] 00:00:00 neoplasm of colon Medical Ce nter (procedure) [code = 543420018] Future Scheduled 1953 Screening for malignant [facility] 00:00:00 neoplasm of colon Medical Ce nter (procedure) [code = 275956721] Future Scheduled 1953 Screening for malignant [facility] 00:00:00 neoplasm of colon Medical Ce nter (procedure) [code = 835389171] Future Scheduled 1953 Screening for malignant [facility] 00:00:00 neoplasm of colon Medical Ce nter (procedure) [code = 735062901] Future Scheduled 1953 Sigmoidoscopy [facility]code = [facility] S[facility]oscopy] Medical Cente r Future Scheduled 1953 CT Colonography (combo) [facility] 00:00:00 [code = CT Colonography [facility] (combo)] Future Scheduled 1953 Screening for malignant [facility] 00:00:00 neoplasm of colon Medical Ce nter (procedure) [code = 366791160] Future Scheduled 1953 Screening for malignant [facility] 00:00:00 neoplasm of colon Medical Ce nter (procedure) [code = 987336201] Future Scheduled 1953 Screening for malignant [facility] 00:00:00 neoplasm of colon Medical Ce nter (procedure) [code = 679612772] Future Scheduled 1953 Screening for malignant [facility] 00:00:00 neoplasm of colon Medical Ce nter (procedure) [code = 837940145] Future Scheduled 1953 Sigmoidoscopy [facility]code = [facility]oscopy] Medical Cente r Future Scheduled 1953 CT Colonography (combo) [facility] 00:00:00 [code = CT Colonography [facility] (combo)] Future Scheduled 1953 Screening for malignant [facility] 00:00:00 neoplasm of colon Medical Ce nter (procedure) [code = 476065710] Future Scheduled 1953 Screening for malignant [facility] 00:00:00 neoplasm of colon Medical Ce nter (procedure) [code = 825488391] Future Scheduled 1953 Screening for malignant [facility] 00:00:00 neoplasm of colon Medical Ce nter (procedure) [code = 250269967] Future Scheduled 1953 Screening for malignant [facility] 00:00:00 neoplasm of colon Medical Ce nter (procedure) [code = 210858720] Future Scheduled 1953 Sigmoidoscopy [facility]code = [facility]oscopy] Medical Cente r Future Scheduled 1953 CT Colonography (combo) [facility] 00:00:00 [code = [facility] ([facility])] Future Scheduled 1953 Screening for malignant [facility] 00:00:00 neoplasm of colon Medical Ce nter (procedure) [code = 925778730] Future Scheduled 1953 Screening for malignant [facility] 00:00:00 neoplasm of colon Medical Ce nter (procedure) [code = 027100650] Future Scheduled 1953 Screening for malignant [facility] 00:00:00 neoplasm of colon Medical Ce nter (procedure) [code = 335176960] Future Scheduled 1953 Screening for malignant [facility] 00:00:00 neoplasm of colon Medical Ce nter (procedure) [code = 278220100] Future Scheduled 1953 Sigmoidoscopy [code = [facility] 00:[facility] S[facility]oscopy] Medical Cente r Future Scheduled 1953 CT Colonography (combo) [facility] 00:00:00 [code = CT [facility] ([facility])] Future Scheduled 1953 Screening for malignant [facility] 00:00:00 neoplasm of colon Medical Ce nter (procedure) [code = 867437172] Future Scheduled 1953 Screening for malignant [facility] 00:00:00 neoplasm of colon Medical Ce nter (procedure) [code = 427951589] Future Scheduled 1953 Screening for malignant [facility] 00:00:00 neoplasm of colon Medical Ce nter (procedure) [code = 624849210] Future Scheduled 1953 Screening for malignant [facility] 00:00:00 neoplasm of colon Medical Ce nter (procedure) [code = 834925651] Future Scheduled 1953 Sigmoidoscopy [facility]code = [facility] 00:[facility] S[facility]oscopy] Medical Cente r Future Scheduled 1953 CT Colonography (combo) [facility] 00:00:00 [code = CT [facility] ([facility])] Future Scheduled 1953 Screening for malignant [facility] 00:00:00 neoplasm of colon Medical Ce nter (procedure) [code = 545806000] Future Scheduled 1953 Screening for malignant [facility] 00:00:00 neoplasm of colon Medical Ce nter (procedure) [code = 097960542] Future Scheduled 1953 Screening for malignant [facility] 00:00:00 neoplasm of colon Medical Ce nter (procedure) [code = 423102507] Future Scheduled 1953 Screening for malignant [facility] 00:00:00 neoplasm of colon Medical Ce nter (procedure) [code = 281921353] Future Scheduled 1953 Sigmoidoscopy [facility]code = [facility] S[facility]oscopy] Medical Cente r Future Scheduled 1953 CT Colonography (combo) [facility] 00:00:00 [code = CT [facility] ([facility])] Future Scheduled 1953 Screening for malignant [facility] 00:00:00 neoplasm of colon Medical Ce nter (procedure) [code = 081068757] Future Scheduled 1953 Screening for malignant [facility] 00:00:00 neoplasm of colon Medical Ce nter (procedure) [code = 408443208] Future Scheduled 1953 Screening for malignant [facility] 00:00:00 neoplasm of colon Medical Ce nter (procedure) [code = 853109322] Future Scheduled 1953 Screening for malignant [facility] 00:00:00 neoplasm of colon Medical Ce nter (procedure) [code = 995876492] Future Scheduled 1953 Sigmoidoscopy [facility]code = [facility]oscopy] Medical Cente r Future Scheduled 1953 CT Colonography (combo) [facility] 00:00:00 [code = CT [facility] ([facility])] Future Scheduled 1953 Screening for malignant [facility] 00:00:00 neoplasm of colon Medical Ce nter (procedure) [code = 855961796] Future Scheduled 1953 Screening for malignant [facility] 00:00:00 neoplasm of colon Medical Ce nter (procedure) [code = 044005387] Future Scheduled 1953 Screening for malignant [facility] 00:00:00 neoplasm of colon Medical Ce nter (procedure) [code = 335517672] Future Scheduled 1953 Screening for malignant [facility] 00:00:00 neoplasm of colon Medical Ce nter (procedure) [code = 900908885] Encounters Start End Encounter Admission Attending Care Care Encounter Source Date/Time Date/Time Type Type Clinicians Facility Department ID 2022-06-12 2022-06-12 Outpatient MAEVE WATTS [facility] [id number] 00:00[facility]00 00:00:00 [facility] 2022-03-13 2022-03-[address] [facility] [id number] 10:15:00 11:01:02 Visit [facility] 2022-03-13 2022-03-13 Office Stefanie, [facility] [id number] 10:15:00 11:01:02 Visit [facility] 2022-03-13 2022-03-13 Outpatient MAEVE MOYER [facility] [id number] 00:00:00 00:00:00 [facility] 2022-03-13 2022-03-[address] [facility] [id number] 00:00:00 00:00:00 Orders [facility] 2022-03-13 2022-03-13 Travel [facility] [id number] [facility] 00:[facility]00 00:00:00 [facility] 2022-03-13 2022-03-[address] [facility] [id number] 00:00:00 00:00:00 Orders [facility] 2022-03-13 2022-03-13 Travel [facility] [id number] [facility] 00:[facility]00 00:00:00 [facility] 2022-02-27 2022-02-27 Outpatient MAEVE BAINALLEGRA [facility] [id number] 00:00:00 00:00:00 [facility] 2022-02-21 2022-02-[address] [facility] [id number] 00:00:00 00:00:00 [facility] 2022-02-21 2022-02-[address] [facility] [id number] 00:00:00 00:00:00 Lashawn brando [facility] 2022-02-11 2022-02-20 [id number] [facility] 17:22:00 17:42:00 YOGI 2022-02-11 2022-02-20 [facility] [id number] 17:22:00 17:42:00 Encounter Bryan [facility] 2022-02-11 2022-02-20 [facility] Lourdesorlin Resendez [facility] [id number] 17:22:00 17:42:00 Encounter Bryan [facility] Ermariangel [facility] 2022-02-12 2022-02-12 [facility] [id number] 13:40:00 15:12:00 Event Valerie [facility] 2022-02-12 2022-02-[address] [facility] [id number] 13:40:00 15:12:00 Event Valerie, [facility] 2022-02-12 2022-02-[address] [facility] [id number] 13:30:00 14:58:00 [facility] 2022-02-12 2022-02-[address] [facility] [id number] 13:30:00 14:58:00 [facility] 2022-02-12 2022-02-[address] [facility] [id number] 00:00:00 00:00:00 Lashawn [facility] 2022-02-12 2022-02-[address] [facility] [id number] 00:00:00 00:00:00 [facility] 2022-02-11 2022-02-[address] [facility] [id number] 15:45:00 16:17:11 Visit [facility] 2022-02-11 2022-02-[address] [facility] [id number] 15:45:00 16:17:11 Visit [facility] 2022-02-11 2022-02-11 Travel [facility] [id number] [facility] 00:00:00 00:00:00 [facility] 2022-02-11 2022-02-11 Travel [facility] [id number] [facility] 00:00:00 00:00:00 [facility] 2022-02-06 2022-02-[address] [facility] [id number] 14:30:00 16:05:43 Visit [facility] 2022-02-06 2022-02-[address] [facility] [id number] 14:30:00 16:05:43 Visit [facility] 2022-02-06 2022-02-06 Outpatient MAEVE MOYER [facility] [id number] 00:00:00 00:00:00 [facility] 2022-02-06 2022-02-06 Travel [facility] [id number] [facility] 00:00:00 00:00:00 [facility] 2022-02-06 2022-02-[address] [facility] [id number] 00:00:00 00:00:00 [facility] 2022-02-06 2022-02-06 Travel [facility] [id number] [facility] 00:00:00 00:00:00 [facility] 2022-02-06 2022-02-[address] [facility] [id number] 00:00:00 00:00:00 [facility] 2022-02-04 2022-02-04 Outpatient MAEVE MOYER [facility] [id number] 00:00:00 00:00:00 [facility] 2022-01-28 2022-01-28 Outpatient MAEVE MOYER [facility] [id number] 00:00:00 00:00:00 [facility] 2022-01-27 2022-01-27 Emergency E RATLIFF, [facility] [id number] [facility] 07:59:00 12:12:00 [facility] 2021-12-28 2022-01-10 Inpatient JOSSELYN HOOKS [facility] Internal [id number] SLS 18:01:00 17:36:00 Med 2021-12-28 2022-01-10 [facility] UR Josselyn Zavala [facility] [id number] 18:01:00 17:36:00 Encounter [facility] 2021-12-28 2022-01-10 [facility] Josselyn Zavala [facility] [id number] 18:01:00 17:36:00 Encounter [facility] 2022-01-04 2022-01-[address] [facility] [id number] 13:34:00 15:30:00 [facility] 2022-01-[address] [facility] [id number] 13:34:00 15:30:00 Event Christin [facility] 2022-01-04 2022-01-[address] [facility] [id number] 12:00:00 13:56:00 [facility] 2022-01-04 2022-01-[address] [facility] [id number] 12:00:00 13:56:00 [facility] 2022-01-03 2022-01-[address] [facility] [id number] 14:00:00 15:30:00 [facility] 2022-01-03 2022-01-[address] [facility] [id number] 14:00:00 15:30:00 [facility] 2022-01-02 2022-01-[address] [facility] [id number] [facility] 19:08:00 20:40:00 Event [facility] 2022-01-02 2022-01-[address] [facility] [id number] [facility] 19:08:00 20:40:00 Event [facility] 2022-01-02 2022-01-[address] [facility] [id number] 18:00:00 19:46:00 [facility] 2022-01-02 2022-01-[address] [facility] [id number] 18:00:00 19:46:00 [facility] 2022-01-02 2022-01-[address] [facility] [id number] 00:00:00 00:00:00 [facility] 2022-01-02 2022-01-[address] [facility] [id number] 00:00:00 00:00:00 [facility] 2021-12-29 2021-12-29 Travel [facility] [id number] [facility] 00:00:00 00:00:00 [facility] 2021-12-29 2021-12-29 Travel [facility] [id number] [facility] 00:00:00 00:00:00 [facility] 2021-12-28 2021-12-28 Outpatient [facility] [id number] Lorenzo 18:01:00 23:59:00 [facility] 2020-06-30 2020-06-30 (TEL) STLMLC STLMLC [id number] mmon 00:00:00 00:00:00 [facility] 2019-03-29 2019-03-29 [facility] [id number] Common 10:30:00 10:30:[address] [place] [address] [facility] 2019-03-24 2019-03-24 [facility] [id number] Common 09:58:00 09:58:00 [place] [address] [facility] 2019-03-23 2019-03-23 [facility] [id number] Common 15:09:00 15:09:00 [place] [address] [facility] 2018-12-28 2018-12-28 [facility] [id number] Common 11:15:00 11:15:00 [place] [address] [facility] 2018-11-04 2018-11-04 [facility] [id number] Common 09:30:00 09:30:00 [place] [address] [facility] 2018-09-30 2018-09-30 [facility] [id number] Common 10:45:00 10:45:00 [place] [address] [facility] 2018-06-29 2018-06-29 [facility] [id number] Common 10:30:00 10:30:00 [place] [address] [facility] 2018-05-28 2018-05-28 [facility] [id number] Common 10:26:00 10:26:00 [place] [address] [facility] 2018-05-10 2018-05-10 [facility] [id number] Common 13:00:00 13:00:00 [place] [address] [facility] 2018-05-05 2018-05-05 [facility] [id number] Common 08:31:00 08:31:00 [place] [address] [facility] 2018-04-30 2018-04-30 [facility] [id number] Common 11:09:00 11:09:00 [place] [address] [facility] 2018-04-15 2018-04-15 [facility] [id number] Common 16:14:00 16:14:00 [place] [address] [facility] 2018-04-15 2018-04-15 [facility] [id number] Common 08:15:00 08:15:00 [place] [address] [facility] 2018-02-25 2018-02-25 [facility] [id number] Common 14:45:00 14:45:00 [place] [address] [facility] 2017-12-09 2017-12-09 [facility] [id number] Common 08:18:00 08:18:00 [place] [address] [facility] 2017-12-09 2017-12-09 [facility] [id number] Common 08:15:00 08:15:00 [place] [address] [facility] 2017-12-09 2017-12-09 Out[facility] [id number] Common 08:14:00 08:14:00 [address] [place] [address] [facility] Results Test Description Test Time Test Comments Results Result Comments Source Fungus culture + smear 2022-03-18 20:38:32 Test Item Value Reference Range Interpretation Comme nts Result (test code = 6463-4) No fungus isolated in 28 days Fungus Smear (test code = 1406) No [id number] 20:38:32 Test Item Value Reference Range Interpretation Comments Result (test code = No fungus isolated in 6463-4) 28 days Fungus Smear (test No fungi seen code = 1406) [facility] + [id number] 20:38:32 Test Item Value Reference Range Interpretation Comments Result (test code = No fungus isolated in 6463-4) 28 days Fungus Smear (test No fungi seen code = 1406) [facility] [id number] 20:38:32 Test Item Value Reference Range Interpretation Comments CULTURE (BEAKER) (test No fungus isolated in code = 1095) 28 days FUNGUS SMEAR (BEAKER) No fungi seen (test code = 1406) Tissue [id number] 13:06:13 Test Item Value Reference Range Interpretation Comments Case Report (test code Surgical Pathology = 104) Report Case: [id number] Authorizing Provider: Lashawn Watts Collected: 02/12/2022 02:28 PM MD Adam Ordering Location: [facility] Surg 5th Floor Received: 02/17/2022 10:19 AM Pathologist: Izzy Greenberg MD Specimen: Bone, Left Femur Bone DIAGNOSIS (test code = [id number] 3220) FuZzEwMzNcZnRuYmpcdWMx IHtccnRmMVxlcGljOTYwMl oralImUBXvuIIyR4Ubyrps MFieXP6rZV3imPvviZGbmS PmBNElHkWlz4uqu869yFOw c6okAXXIjdzfjJs5qCktL2 2ei9W1ExvzZ70jzTOyPAM8 AZOlVUOmqWOgBOWdRNR5PZ HthGUaE0nxBKMjGE8xifgf AIbnARsxMAKtbNK4RXZowQ NuO7FzYAVdCGgqJSJeryx0 XiKjIu7rjJDqrKfyQSytCA HxPXZuVQucINQoQbExDo3O TZbvCPARAUMPBK3XEmkrEy yXHNJKAdoiYWOhVWAIP13W MNZJIVpNWY5UCRCSH86lST mXUHIRVQBQZQYBG7XPLNOv DbxLSo2PYEJpJF5URRNNXI 9ERUxJTkcgVFlQRSBDSEFO V8PQWNffAGUeF69jyHCcpK hqiPZnTN8fK9HSLEUOHJmZ PT8UFX5UTFssPFNdJJSNHD lNEYzFBKGJW3GoGDBPZGaZ IC0CUSxmEJW2i2aziQPcYA NzdGUxODAwMFxhbnNpXGRl YvehehcjJJCqAHW6xaXuBM KwKDoqSDBiUVjtBe9nrFSz iYieItPcOJYrj5vxrhGKhn ghxKp5p2kgTTEnMwS6wHNc IVjbN6qtixLyuELtOAAuZG n9gB69DDYklL8bzLIlFPfo auVhWpU5IBjlUYYmNtW9WB XioUQnJMDsD1pyDHFdEXiq CJWjMNisoGNyDFR3tEyji7 A1rVDogHMxuMorUzOdRtEo QqIXj0CcJFq7cTigG9ZrCJ JrNxG4yUIoAYGxGTzcECVh CMEiggC9jG14SZogloB7gK Kvo7Qtg50ip329gL5uxKVv JIJ8JVGcGRRyvBFwYDGqGP G5AQLvqVMhV7yiSKJsCU6f yfhwHSmtZEikGVAenVA5UQ CwqTGjV7WaJSIpDNqiUEVb djg0QkOjTu1miKOmpUgnUP boi2ywr2oinYRbWil5FKCc HrCoBlafEFfic1Bof7flWU Rawl7cACI9yKSnqQuhl8B9 rDDzQRXkrOSwROHrNP8avJ TxATVfwR7qgofnYPUlIcYj xvhlSJEwuUekzhJeGp0faL nxHRU1WKfdX3bveU0hCpQ7 IYuwX7tcwV3bFTh7PPjeHH EfiUT7jtO7XJFmgVOoZ1Kz yD1yFLNmHP5djbt8l6nrXT G5SPidQIEgXeR0xtU3DAHo sDChLNNmnCaeCMnph374VW S1DrTiFAPqm4MxS3OfmGlh B82exFcwJ49tWSUihQdjmX 3seLnpmQ2aEqKkXqXbKNtq aEccPT6pFTFeU8pryJNmQZ OpZTZqI8stAmXarQ5xnIqf WWhcwvUqTPRzKef6FAYygS SfCLVbNhv2OXVpVHEeH05c kyalERI3bX1gj8ghc0YfOF xkKNR4KLWpg23bJWbhqfZ6 QGP6LN04MilvEbQ1I1tsKV J9fQ== COMMENT (test code = b8xoxEGcNUJsqRO2TgAaCD 0801) Reb6dvp2OmpZFpxOUcXKah vJXuskAupn21aNT9eX50RB 6pKFZnWwY9BZDhmoV3Kmr9 EYTiLMWjfCHeP337f5euv0 auzzRqzJM2wWupTITkgebj MeL8HLafGJTuxiwqAVq5OP isBFRevWI9TXDhdZNiO9Vf ZSFnIA9ndpn9UYN6WGjuIZ PlJlE0OBPvhGTvZXRysVyr DYyay343UOE8DzAwYJTudy WvrTghqU2zHoIvRFBFMAA6 dUWpueOmsZqjPUA9QZJePF X1uVCkJPDmkTNdxjGvnvNc mHQidoxbAB0oyYOqbFcgyI x6wFYpOJSrxM2rC4MxCCLe scVkyJC7bF4yTNvbPIEfC3 3tvSFxGBNmPstbIEV9 CPT Code(s) (test code k9civQZnKIDdhSJ1MzDjZA = 6062) Lxk7ghd2CdeXRchIGrUJqd cLNwdvRqhs27pGG2mN40LZ 0nLAKbHzO4CCIqoiY0Qxe2 FFUjPWPyxPEjD925l2ync3 ulfdXoyLK5lWqnKBHkjmws ZyS5KTbvWNGsimqgKCj1XW xpIZKutGC1KLYydDCeL2Gm MVXjOA5john4PXO9GGzsPZ KsYuI5CZYqjBVqVGKogKep VZzpc716BPR3VkIeCOOjog VguVxzaZ1bPvNpPMU9KMYu NTsgODgzMTFccGFyfQ== CLINICAL HISTORY (test c5jacYIpXAOcvOU3PvJmDH code = 3356) Atl2ixc1HtgGIwkBEuLFfs uRAtihRyiy91kEI9iU58KZ 4uBUEsBrH1GAJgwzZ8Uds7 NMBeLSUmfAZxO308r2eew3 gyxpWqoCS8dKnkXAPftapt UqU7UDpiBKJtoffxCAo7GW zwXIDrkFH0CENacXSsL8Ty GJDyOG1fjok1LUB1IVnwBP CkXbI0FHHuqRHtYEGvbFsn VOcym615WWC7NoHnIQWbmd XqsKlwbR1eTwAqLWDMTYSn gYxeaeMsODVuz5F3ePUvFA Ooy5Vli8AeWYVlaj5= SPECIMEN SOURCE (test a2ikbSVhKZSrwTU4LrReMA code = 3377) Ior2esb9JpyRUmdTNcMVml vLDtjrFuog99eUX0gO96RX 5vOFUcOrL0UYPjvtJ3Nhh5 OOKjBPEuaBJfA430d4mwi4 dpvsIbrXQ6lEyzPDPxzydm TtC3NTjtLLDqkddzNCe2ZW mbAHXlpIW6JHTchYHiS4Zq JMRnWU2mbmq7WVQ0FOncNT BnJcX6WCJucRRuLSWtkPtu HIzhn878SFJ5WyHoQLXpcm IsjPfatA0fHgTxKWCHXQK0 IGZlbXVyIGJvbmVccGFyfQ == GROSS DESCRIPTION (test m1pmiKQgCJNzyLG1HxDjUD code = [id number]) Non7cum6LgsNHtaZHeSFxv vPKwuxLdjj55aAL0qF00OE 5iRFInLxO1ZMSvtuE4Jxr8 AODtSCXpeXHvT038g9iwl9 emicPnrUU0HGSfXQAhV6Qk OQ0gTRPtxACuR96alFJdPS X1XNCtJAPvvHVaBLOaYFQ4 HYIvnZFkR9ikMNBiMU3lix rxVBvaUTqtLAVmxBK3UDDl uYFbO3BjPNOkNSgdURThtb s9OeXlOs2snGKmsCojGQuy AIPku7anHVFdzHKmKBG0OF cyqWQvQWNhGKCjYQi9XJLr NCaflDXqPJ4irWqlEgnpzR crq6YmmRInYZntCYEbXYYn WMtuUYPvS4YFOKGwBSs2DP l8KcAmDEf1BDtsS7YJOQNd NIT6JwRjHOxdVoL3OGp6US RNHd0sGLs8NHkdSzSoTID7 ZpY1CEdwjRIeOZoyAcxcKB cjBFYbeWQuODbpqkI7YMWb GJvqYUKlIvOsPO5uTr5oZM 4bsPPvEKIpBlQqY1OdMAWz C8XgsrHsSEriHCOfem6zqX caQEhsAuWpTWUwn5l0vCJ9 kTJbtAM9aJYheCdrNZbiBl 9pfWG9vZ9jEIXbAYOvRIFi dZGnMXVuy36dPmZuubJgBW Ctfp5srk73ebBxuBAeRSWe UjXuk74kRDcqeUlzGER3RA YnQUKlc57voCH3pLIpbUKq KS0eEWatkE2hmszhG8VdBC BvSSQcjTEufW5cboMqTJHa iNXtizUubjBwcYD1tRhqhy FurrCbZN1mwFmwGCK9VFMb YAS9YEAqK25sOHl9ZZgpQV GmM2Vtg16bCDH4roYgPRWb YWwgdGFuLXdoaXRlLCBmYX M7wABbqkNiLrqmsx21dnVj hKXyx7OuHpQjUJ2yMvTgsz IhBB00IPIkwwQhv0KokCsa fnJkNWElWHO3Zg3auSZuXL PxgtXLUM7ZAz1qDMBttGJg NTZuG0IhG7rogSOuwUxelh BNLD8hrpH7CYTbcKHwTRN6 CI6rrWepLFIcZ7WmN4Uauo V3SRGmhx3= MICROSCOPIC DESCRIPTION v4uleOVeYUOzqEQ7EpDdFX (test code = 3371) Ulo9hda2WwcVZczXHcQNdk cPCrtrXzwg62lEQ4sD46VO 2wROKsSmX4QXGpoxK3Utm0 BIZiSBXckVKnF360o6hwk4 ojqpXrfIR8bYilHYTepble QkA3XQcgOIEiqdjaSKn3SX lrMLCmqOW3FQSnqLStP3Yj DSZkWQ8nzbz5BLE5UTxsQR SvEeH6OLSfqHVhXSBifLrz YCfwd575FJY0GdHgMZZmcb HeiOjfmK9vIuWeUPOVQXPZ O7SPWUMbeMHwlZ== [facility] [id number] 13:06:13 Test Item Value Reference Range Interpretation Comments Case Report (test code Surgical Pathology = 104) Report Case: [id number] Authorizing Provider: Lashawn Watts Collected: 02/12/2022 02:28 PM MD Adam Ordering Location: [facility] Med Surg 5th Floor Received: 02/17/2022 10:19 AM Pathologist: Izzy Greenberg MD Specimen: Bone, Left Femur Bone DIAGNOSIS (test code = o5gefVAoNESim2zfTXWufT 3220) FuZzEwMzNcZnRuYmpcdWMx IHtccnRmMVxlcGljOTYwMl qwrmRpPZTxzCQhD3Htwipt VSrjDV6uQO8rhLijfWEylM KnGDJmBrXqo2uqh557yWSf o9nsQTKHujussKt5fDpcN6 5cx8U4VxclV97axDXiKVR7 NLNfLVBacOVkZVGuNZG3JF GizUNuC0cyRKUbMU5yivae IMmiRWpqPRNrjZQ4GSObgH KdP3PqCHEiWGpyWMHljub8 DoWiNk7deTQmiJwqBBjyJU RaMFCrGVrjKLGxAmSzAm2M IXmjOVIKAGWSTS6CGphaOz vYPWCGJqotWSPrEDFML11O UZSPVCiRVE4XISJRQ17dDK bNCNWRXPUDPKXRA6TZMTNz QgkMQz4GKOOvKC7ZLYFEJQ 9ERUxJTkcgVFlQRSBDSEFO F1XHIZsiZRMkY99kiZRlsM kesNHkTG5kR2YQKDOPSAjF NX6ETM6PBTlrTCQgRQALHG iBTLlCRVERC4AeJJNVCMjG IB2JXZycXKZ2n8wxxUZvBY NzdGUxODAwMFxhbnNpXGRl UhiindywCJXxYKW9ibRhEH MyJIefTFWmXQvmEm3scEJw jEwyTwBnTNHwc4srlbHBzq mhrZp2u3cvNTWpRsZ1gJXs ZZftT5ofnpJdvJWtOPLwLE m7zJ77JENfqQ1buJCyXFiv suQyVzY7RIhuBQMmRgH3TB XsnHRjKUJuT2rqTEYbOJpw WBUhTZysoVVcFBT6eKqer3 J9qITdmDEbkWcmLyEkXsSs MtMMm8NaIQp9bVhuS5MeGZ LeFtS1mKUjGAGkAMerGYCl OKAkjqI0oV81ZFhwczT3kH Fzp6Hfs32pf103zS0rqSMg FBX6LDOwSJRffPOzECXxFQ L8OXAoiOTbO2dhYROiKJ1x nxhpHUapLNoiAQTckEH8LS HnsBJkK3IjTGSjYMhlAURz csb0GkAkTm9lwEEjsDqxAT mps6wov1uabFZfDrp9XVMx BqSfGzhlVLoml7Qnl6mhZV Judx2lBLN9sJFcyFxcg3I5 gLHlADWblKHkTMQnJW9baF SjJVFuuE3hufmaMHPtBePb wxzjQQVmnVmgijGfRg0sdH vbLDC5FXrbA8tzbZ9uCaF2 MHkaU0hqqW9nYHt9LIrrDP UzvZN4orJ3PIIbaFDdD5Mx dY6wDIIdVF3uhgw8k6jqXI F2LNbsEXSjPjG7piF1ZFUy pPKkRFWmxHvnUMgbz247JP U1UwMsBOPlf2EqU4LdjRij L15jpNawN50cAPSorGoleE 8kgLemxV6lUzVfDiFbAZdt kDeuGG8qSJEeA2haaYWlOD MsUBZlK2gzFgPuqV8epNym GFaqteHbZCBvBxl2FTKcyB IiHPYuYnj7RAVpBSFyT19m tkevLDH1gQ1gm4zel1DrMO eeMBX1OLOvb23lADxdltX0 OVJ1ER85WaqhWrM4H6dtMC J9fQ== COMMENT (test code = p4jwqXCmWOXuiRE0AcWyVU 3357) Uis7yge2PmbUAsbNQeVBgm eIRqeoJwdt17nAU0cJ23EN 6vZSZnHrZ6TJXhitC0Eor2 YRHvCHEabJQkM328y0jbg4 ydofEsbWT3xZhiSEJejuqs YwZ0BFodWTDyiitdPMj1TC mrSBPrfYU9CNSyqYSkO1Gc DKOzKL7uknf8UTL6LUakML AqKuQ0MQZzpKVdBKWesHkj WGhhp459XWO1DbQgVYKwsa CxrRilpQ3oNiWlOIYKXHY1 qBKdjlFwiEjdWEE6GXViBF E0wDJvXUWuzCTwytQsgrNn oQGlntltAE9cxFOqcDnyoK t7hYGvWATqgE8pF7NaOSHd zqQjmSW4gX9kOLymKAMjI1 8kwPAeKVRmRbrdJVX1 CPT Code(s) (test code x3mncGVoEIPlsVD3FfTtVC = 0387) Dhu5ggt4AxxNFliFGuVPiu sIGmxtZvkm99gRF9fP29SQ 6lUWDwHmS1LJUoolQ0Mwr0 BXXcNASsgYVzT063n1pcj4 vlanBycLJ5zOiwREExqjym WaL4DNcuVEGbxmsxXRi3NH shNCTpeEW5ZTCivUZhT7Gy JQYtAM0wqeb6UYB1RGrqNW MtLxN2EJBoaDAaWNSewIof HWslc459CEU4YnVzCYJuqe XfvNmgoM6nDwWwOHK4SAXm NTsgODgzMTFccGFyfQ== CLINICAL HISTORY (test e0uxmCIaUREusDT4LjNrTJ code = 3356) Jff2bbu5BcyNPfuQWzVKan rJMsaxMocc80tLH7cX34RL 6iDXMhOrN4TJCxnwY6Jyj2 OUChTAYlqAIzR779v7pzl2 vivuOdxUW2mNfnDRFamutn SuE0HXtiMQHtqcenDEu7XR euSAEczXZ9JACsdAZvJ9Ym TZUuKU8jsha1NKF0KVdmRE BnGbZ6XZHopHGzFDTfwRdy NXbvc329WGL2ImNcBVNkzm PqmAszpH3dLrMnYNDLVFDy fQxygaXpWPEpd7L9nOQwOU Bff7Bdu5YkHZCfyl2= SPECIMEN SOURCE (test v3ruwOLvXWFxmKQ5NvYpZD code = 3377) Ols3zkb0HaaOVbvSNuYAbc eYKccuAvtn35jTH9jI98SF 1jTMNnNyP7CHEzaiQ8Evy5 LOLnISQzcWKbH920c3gcy3 utfmDbnMV9dGuaVVFxokqh YwK2ONwcETSztueaYCw1OI bnUGZwwII0FOLxlZMiB1Qg ZZNuHZ9jkel7NAV0PPzeMT KmOvY0FWEjpPUzCZGpdFlf XOwtj326PSI6JuTzOKNdjs PdeBkcgW9xGgAjOGLOJWT4 IGZlbXVyIGJvbmVccGFyfQ == GROSS DESCRIPTION (test p6xheTMcQLJtnFO6QpExXE code = 6428800604) Nxi5iuq0TweHLaqDIpEKkl xLJncqTvhq28eDZ1uI68FB 0lKEXsAbF6KSLghsO0End4 MUYqEEOfhKDzN824y4ayc5 bphpLmzBQ4ONHpFQZfP2Cg QH9fWDXnuLEpE41uzUGyRH G3BGPyFLSmxVTmYRJaKOD5 LXFbdXQeP0eaWIIhKK1rgg sgGKkmWQgvTIPrhVJ7BSCv uJOkI1VkFPLmQVihAZIpvs y8DvDiHl2fdKBfxBteBZej EAHnb3liMWNdmIMwJML0YX mikYCnVHUkVAAxDJw7OEUk CTpeiYOzAB9dxGicUfiwbU mlw9KyuUPkAKifCORjCWAc OHpyUOCzH6FHHTHbDEv5ZW d7ByGwCFu0FOyjY9PHLITt YEQ6YkVxXBzdEnN1BFq0OM NWZp5vXEm7AUrqTaPfZMD4 RgS6HXryuXVqKZjaUrhfVK ybSTOavZVzHXwgafU7QFOe XVkwMKWmQiQuFM3qFb7uJF 6leVHjFNDbZfPpB8OdQECj H0IdcbWhSDigJTAjws0okY cqLKciStPdPBBuj4f5zAG8 kBPvwRZ8tGTgcHkpHFnrIf 0vlIS0dO7xXRKqVKYvWJLb dWQdXOHnl10iIsBfykYhAS Qcxc7qch64ndSvtTEiSBFk OnSpm88hPHfjlBvbNWX0WT AmVCKpn49jpFI5jLPmqEEr GA6fZQoqtD9wttovQ9ZhOW YzPYDddPTcfN7arqFuXNDy wNSidoCkfxMkoVY6gWkjzs SocnQdUV3zuTtjUDM2IXPx KTX4HPYvB69qFDz3RRxbKJ XiU7Nfr92oHEE0rpDbJZWf YWwgdGFuLXdoaXRlLCBmYX X8iJTyhmZzMrvalh40plDr hPOpy4WrSsAqFR3aZlXltz SzQL17OHOxxeXzv1OdaXkq ewQvKKWmDAN4Ut3swCDtIT MvtaEYIY7HIt7yVTPisNQw RAIfV6TnG5wdcXAmmMrdpr DJFT4pzoI6AXTudWJiGAB0 AU1foXqdLEQzO7LrI4Dqnl F5DDUtsn2= MICROSCOPIC DESCRIPTION d3wniSQqIBWtfKK9NfVhUD (test code = 3371) Jap5csy5YkrLWamJRaAYep kCBgknGror65jFP1tG62KZ 3vAJDgQeM5KALcxwK1Ifd6 BVPkNRKghOIbD343g8vrw3 dcllNnuZF6zUlnYZZparch IaN1AGqfVXTrhoueRHj0JF jgIMGswBH8NDFtfYWyR0Zk WBIfCD8fukv0LBO4EKylSQ EpUaO1VRBbiXCjMLIfoXtj MWltf052XBJ6CgKsUCVcui FjlKmsaY3qDxShMKBWFSWA W5DWKZBstQVwdB== [facility] [id number] 13:06:13 Test Item Value Reference Range Interpretation Comments Case Report (test code Surgical Pathology = 104) Report Case: [id number] Authorizing Provider: Lashawn Watts Collected: 02/12/2022 02:28 PM MD Adam Ordering Location: [facility] Med Surg 5th Floor Received: 02/17/2022 10:19 AM Pathologist: Izzy Greenberg MD Specimen: Bone, Left Femur Bone DIAGNOSIS (test code = l5gqkTOkRQJha9nbWLJddE 3220) FuZzEwMzNcZnRuYmpcdWMx IHtccnRmMVxlcGljOTYwMl vamgJlLRDxcNMuL2Znlxcg MGxiNB1zHF2xxUztvTZtuS LlIYAkDdKfh7ikj309lCVe s8uxSZTQuvfloPj2kCmmO1 9qt9W4LnzbH34vcGEpYRM7 ZASrGFVfpNNwDRMkBDD1ZX GhlGKgQ9fgHYAhLT5drgtr EPrvAUhbMGYiuAU2WFFzwG ZtD5WgBFOjQVxyIKFujjy7 HxWzCd4ncJLosNtpJOzdRT SaGEHtRPcoUNSaJaCuKd9F JIckDHDKFLJSQF0YFicnYb eCGNPUEnpdXUSjKWTEO09O IVEXSOfRBT5KUGSBB33dJY fYYPKLUQZXINVCA3JGGVXc AllNQu0GXOXmIB6XRGBALH 9ERUxJTkcgVFlQRSBDSEFO T8XZWDlmZVWzP23coCQkhW tfaPWwXN4nB6BRAPSZNUmC YW1LKY6BLWytTRFgHCLMPH wPHOnTTGFEO9IoTHYEPRhU QY2UCWugTRS5o9ltxCXjSM NzdGUxODAwMFxhbnNpXGRl LehbupsuACPsXAM5siXnTY WyCSuaAHLhWUazJa1pzSMr aKoyQaScXFRfm3qbvwRQdz ksaVl6k9mtCYHbWgD0cKJj FRmmL1lfjeSvzYBoGOXaQE f7jK04REEkvI1lfIPmCDqn rtUnQiD7UOxlYJTkVfO2EP UdkRHuPFHiV8ywKQDyMFjw SKZcVMsvwZKaBJW6xZnqo6 G0mODlwBSgiAelNbStYmOl GdIIk3ReXOc9rWbfX6DoBZ UxHgZ3cCUlHLLzMRpoKIXo MLHyogX5dO32EBfrmzG5wO Ucd6Zjp89bm622cW5xzVUs UDQ1XRYkKYLqfMZgYLZiHM B2LXCcnSKlG5ypSIErEB7v fkdvBTnuYPhxMRRveHM6HW YopNCbJ5CoJWDpBPomPSIg rfm3PpPcBn9exLDsiDzpCG hxv0jwy2dztQLfGho5ABKs OzTmFlnaPMawf0Gty4kwVI Mduk5aIDE2lDPufXykm3K2 aDMjZEIylLKjUVZgEL6sbY AiBKRyaI2qttfkODAgInQn qqkcJYFfhTyzpqCaPi0wrX jkBSO1YBpdR4osjQ2aNzG6 DObjJ8slaX8mFDk5KOytNS NoeUM2egB9OBRkxWTcS6Ih lA1aEHIcXQ3isbg0z9bzBH O4CUflFTUbNpP7pfF4GAMg fVPoFCRxfJitIYlzh228CH Q5BxQaJFBat9RjD6InjEtp U04zyZzwR74sJVYdtPvvwI 6mmAuflE3vGhAzKqGjDUva kUclPB6fROZbA9uaqQOvVO ZtKYRzR2awDhDzhL3uxLpl SBeedoTuISTsQuf5EOSdxX QdXIDfEux2WHJcIMCeD58l qmkvNAI0oP4kz0zde0FySG ujTXO8FERqi45oJPaulzA1 NKR4RO77ZsidEiM8Z3ezIB J9fQ== COMMENT (test code = o8lpbUZoSXJliXL7CgHbXO 3530) Rbv7avx3FixPTntBVnPDlw cBSmmzIzkb16nPR4mA48UU 6sGYWaBvP6SKAgngH3Mkz4 PYAqJJSuoPPkQ572n1qqd2 zumcYziHD0vUzdRERdjvpn VgW8OTslTZNlhdkpYHx5KY roUHLkiQN7AQEodVRmA8Xd VQAeZC7mrui3NQF5HVawYV YoSmA5OSVumRHgMWGwwCzs XQctf007RPJ5FuOdBBOgga RikWhsgC7fVmFjNLLEGAZ3 aNAbesYmwNpnUOZ2AIUiIX J5gOBmUWGrxPBvpkCvueEv dANxzwbbAN6mgVSstBnazF m7mTQuLUQmxD3uA9DzDDYx ozDehSU9cP3mIWtaJCSrB8 6eeILsNTNhOpjyYRL9 CPT Code(s) (test code n3xmyIJqODXiuZB3WsLtUH = 3357) Miz2vkj5NflZCydNQyFLvw dUTvjmBpgj15lRE5mM30HK 1cLGNmXgN2NAYphsX0Ztt2 AXBePWNyjXUsD089g3iwh4 idkhNauVA3nVhnIISxagzn BwK0HHphXYUybdxiSVz8FI jhDJIygYF0SHDeiOXlG5So PLNjYM8mjbl5FMX6BWxfKU RxEcI0LYKbqHWxXUNvfZvv CHiqu307OSI7RqBaNYTbep RatKuesM1yItTbQOI1WUHh NTsgODgzMTFccGFyfQ== CLINICAL HISTORY (test l9fiuXIzKTZyfGF1GkDoEX code = 3356) Max1lid7BafWQopFCaOJgm gHYerhIppx69dYK3bK59GA 1zJOLuQyD0LLLzweO2Zwk9 PYVxNFZeoXFaG341j1ndc8 xabwSgcBB8oEabAXKilxox GiN1FEmzLTEpmirgUGe7RC ukYTZhnCQ2XKOtfNWoY2Wu VYYyWM5baxh0VLI4PCszFX EpAjD6MOWodSMyNLSikVcc VHwkt279RYF5DwSwONEjxr YawGnyjK4eMcBrXUKBUQOw lXomwrAeKWVzv0P5xTPeNK Twx6Ayu0KePFYkno1= SPECIMEN SOURCE (test w0mnhZJtAXLhsSW3QtQfCK code = 3377) Ygx8lyb7BkoBWfuBNrJEpl uPYpakWuzs14uOQ7nJ23JI 0gLPPrRjH2FVTtbhA1Jfr8 OOXeGKMwfKTiA159x6fjb7 nahzHilGH2iCriDEYwwfrj YbG9MCusWEEgiusfKLm6OV ghNABqbMA8YYEbpXVwN9Sa WQJhZR3fypv4ZUK3FAieCJ DaEiD0WUWwvBQwUMYcmJtr NEmcq897MYQ9SxUmSUDdja UcoBltbV1bXyYtQFUOMXS2 IGZlbXVyIGJvbmVccGFyfQ == GROSS DESCRIPTION (test c8ysoMLbGLRonRE7YwVrBK code = 8071880482) Oai2qjz5PpmXYgbXMmBZsq rFGwjzCtya27gBJ7vN24WN 3sMVPjGeF0HTCybzT2Dga1 IIVbESPitQUjY324y0pmp8 qwxsEwoAT9QZKgYDFcZ0Rf GQ2jZQKgsACzU29czCEvVZ O1ZCOmFHRmkWEnEOQxHPI4 DHBwrDSrQ9rbZRRcFY6qig ztXDfxFQhtLQMsiCD0QYLd yIOqR1QyWEIuYLheGPCqkr b9NuYaIu3shCBxfLqiUKdr DRKwd8vaQFVshYHnEMU9CM crvXEbDKOnWQRzENs1SZFb PZcppCKqLY7hsOlmDnhtjO dvb7VmdQGuTAvoYFPdLNDq QJrjOQHtK2VWEOOxHJe5VU u9BlRfPOk1BUvqS9BYCJYc SBK2NzPlZWtkNkL0BAs5PH IAYf8kYTi8PQkdUyFkRZA8 OxK6PTpbiYBgSVmmGltySC ukRQOakXZjBAntuvI6YWDg KDjuLMBmZwVbMW1qZk7uKV 2vkINwWJKiTfFeD4NfGWVx X4XsngPnLLlhGYTfmm9iyS wfMCndAlGrGAYkh1a1zMY6 wDJtgYE3mAQcgYovNZdsJs 9giBW4zR9pQELiJUTtSJDp fMMvTQUja99tZqSrqwAcCU Djoh6qte82xcJzqYVhINBz BsMny21oKMmrjClbFIK9AM DjLQMsc02hrOC2mUWiiHUg KN3lXApxcW5jwgfiL7WqFX RlHOCzcKOxuL0fsfZxSRDk nFMfalEvqrSjmCX1fJibeq GlowEiJG5ihSyhQYX9SUOn ULX6KVJlD60sTIh4ZMwmCZ AhM0Gio31wNQI0tmVhDIYi YWwgdGFuLXdoaXRlLCBmYX I7jCYuskTzSgtbdb91vbAm iHVsi2FqSiNhYF0fBiMdgb CxPE74QMLdxhUjy0KgfWmz yvBcUKCgXSF1Wo2alKKdWO JidwUIVV8XOh2bYEAaqIPf JHXuG8CjX9eesIRinVcqfu SLJU4fizA8RZZowMQxDHV5 HR9npWqwTUDjL9OfL4Fxpg K7MJEizi1= MICROSCOPIC DESCRIPTION z9vcjBYkSGQybSO5OxPiUQ (test code = 3371) Yhc6qds2GnaQYeoSJvFSxk tIAparWwxy11yCN2wJ68NH 5yGEQcLyL7CJRygjS8Syo8 CREfJZKwyQWqS534t6tdq2 xostClzNU4rWtuPFUgukaz EqU6MApgNLVtevfoQCy6OU fdVXDgvRQ2DUVjlASbF2Wm FJHwZH9sybv1CHY9COskMA SjQpT4MQYzgGDgRWBooApy FVxee486SGS1RrCkZVEbqd EgaCtvgV1kDvAxNVLXNHWW R0QJJYQkzNPcwX== [facility] [id number] 13:06:13Surgical Pathology Report Case: [id number] Authorizing Provider: Lashawn Watts Collected: 02/12/2022 02:28 PM MD Adam Ordering Location: [facility] Med Surg 5th Floor Received: 02/17/2022 10:19 AMPathologist: Izzy Greenberg MD Specimen: Bone, Left Femur Bone BONE, LEFT FEMUR, BIOPSY:- BONE FRAGMENTATION, INTER-TRABECULAR FIBROSIS AND REMODELING TYPE CHANGES (see comment)- SUTURE GRAN ULOMA- NEGATIVE FOR MALIGNANCY Signing Pathologist Direct Phone Line: [phone] signed by Izzy Greenberg MD on 02/25/2022 at 1:06 PMFeatures suggest fracture repair or chronic osteomyelitis. Clinical correlation is recommended.96868; 85297Mtzjqqfhzg vascular disease Left femur boneA. Bone.Received in formalin labeled with the patient's information and labeled "bone" is a soliz-brown piece of bone with attached soft tissue and hemorrhage. The specimen measures in curvilinear length 5 x 2.5 x 1 cm. It is sectioned to reveal soliz-white, fatty and fibrous cut surface. Apartment Community Manager sections are submitted in A1-A3., after decalcification /ew PERFORMEDBASIC METABOLIC [id number] 06:32:32 Test Item Value Reference Range Interpretation [...] S NOT APPLICABLE FOR DIALYSIS PATIEN TS. Hotel Reservation Agent ID - [id number] ID - [id number] ID - RCSG38Wuouitby ID - MZAM67Cvyvtbmz ID - LDYE80Idegcngy ID - UAQU58Fwrmpiuu ID - DGXL72Qwzodujs ID - UQMF73Qcqgaecr ID - WSLO42Mrcndzbe ID - NQKY27Cqyaccol ID - JEAR32Tdevtqwo ID - UDQF22Msfccodn ID - [id number] W/PLT COUNT & AUTO [id number] 06:26:33 Test Item Value Reference Range Interpretation [...] PERCENT (BEAKER) (test code = 2801) POC-Glucose [id number] 00:24:00 Test Item Value Reference Range Interpretation Comments POC-Glucose Meter (test 110 mg/dL 70-110 : TE STED AT [facility] code = 1538) [address] [place], [place] [id number]: Hotel Reservation Agent/Techni yadi ID = [id number] for Tayla Fernandez Lab Interpretation (test Normal code = 19779-3) [facility] [id number] 00:24:00 Test Item Value Reference Range Interpretation Comments POC-Glucose Meter (test 110 mg/dL 70-110 : TE STED AT [facility] code = 1538) [address] [place] [address]: Hotel Reservation Agent/Techni yadi ID = [id number] for Tayla Fernandez Lab Interpretation (test Normal code = 41499-5) [facility] [id number] 00:24:00 Test Item Value Reference Range Interpretation Comments POC-Glucose Meter (test 110 mg/dL 70-110 : TE STED AT [facility] code = 1538) [address] [place], [place] [address]: Hotel Reservation Agent/Techni yadi ID = [id number] for Tayla Fernandez Lab Interpretation (test Normal code = 73011-4) [facility] [id number] 00:24:00 Test Item Value Reference Range Interpretation Comments POC-GLUCOSE METER 110 mg/dL 70-110 : TESTED A T [facility] 131 (BEAKER) (test code [address], = 1538) [facility] [place] [address]: Hotel Reservation Agent/Techni yadi ID = [id number] for Tayla Sanders BASIC METABOLIC [id number] 05:58:29 Test Item Value Reference Range Interpretation [...] S NOT APPLICABLE FOR DIALYSIS PATIEN TS. Hotel Reservation Agent ID - LITOOperator ID - LITOOperator ID - LITOOperator ID - LITOOperator ID - LITOOperator ID - LITOOperator ID - LITOOperator ID - LITOOperator ID - LITOOperator ID - LITOOperator ID - LITOOperator ID - LITOOperator ID - LITOU/S, RENAL, [id number] 03:10:00Reason for exam:->[facility] : 1955 Sex: MFINAL [...] SARS-Co V-2 (test code = target nucleic 57739-1) acids are not detected in thi s [...] om SARS-CoV-2 in a [facility]oph[facility]ab [facility] s suspected of COVID-19 by [...] revoked sooner. Fact Sheet for Healthcare Providers: https://www.[employer]/Documents/Xp ert%20Xpress%20SAR S%20CoV-2/Fact%20S heets/302-3802%20S ARS-COV-2%20HEALTH CARE%20PROVIDERS%2 0FACT%20SHEET.pdf Fact Sheet for Healthcare Patients: https://www.[employer]/Documents/Xp ert%20Xpress%20SAR S%20CoV-2/Fact%20S heets/302-3801%20S ARS-COV-2%20PATIEN T%20FACT%20SHEET.p df Lab Interpretation Normal (test code = 17651-7) [facility]22-[facility]-18 21:23:23 Test Item Value Reference Interpretation Comments Range SARS-COV2/RT-PCR Negative Negative The SARS-Co V-2 (test code = target nucleic 47641-9) acids are not detected in thi s [...] (test code = This test has been RAOMN) authorized by FDA under an EUA for [...] revoked sooner. Fact Sheet for Healthcare Providers: https://www.[employer]/Documents/Xp ert%20Xpress%20SAR S%20CoV-2/Fact%20S heets/302-3802%20S ARS-COV-2%20HEALTH CARE%20PROVIDERS%2 0FACT%20SHEET.pdf Fact Sheet for Healthcare Patients: https://www.[employer]/Documents/Xp ert%20Xpress%20SAR S%20CoV-2/Fact%20S heets/302-3801%20S ARS-COV-2%20PATIEN T%20FACT%20SHEET.p df Lab Interpretation Normal (test code = 53449-2) [facility]2022-02-18 21:23:23 Test Item Value Reference Interpretation Comments Range SARS-COV2/RT-PCR Negative Negative The SARS-Co V-2 (test code = target nucleic 41959-0) acids are not detected in thi s [...] revoked sooner. Fact Sheet for Healthcare Providers: https://www.[employer]/Documents/Xp ert%20Xpress%20SAR S%20CoV-2/Fact%20S heets/302-3802%20S ARS-COV-2%20HEALTH CARE%20PROVIDERS%2 0FACT%20SHEET.pdf Fact Sheet for Healthcare Patients: https://www.[employer]/Documents/Xp ert%20Xpress%20SAR S%20CoV-2/Fact%20S heets/302-3801%20S ARS-COV-2%20PATIEN T%20FACT%20SHEET.p df Lab Interpretation Normal (test code = 07785-1) [facility])2022-02-18 21:23:23 Test Item Value Reference Range Interpretation Comments SARS-COV2/RT-PCR Negative Negative The SARS-Co V-2 target (test code = nucleic acids a re not 8094273) detected in thi s specimen. Negative result [...] revoked sooner. Fact Sheet for Healthcare Providers: https://www.[employer] m/Documents/Xpert%20Xpress%20SARS%20CoV-2/Fact%20Sheets/302-3802%45SAJF-PMG-5%20 HEALTHCARE%20PROVIDERS%20FACT%20SHEET.pdf Fact Sheet for Healthcare Patients: https://www.[employer]/Documents/Xpert%20Xp ress%20SARS%20CoV-2/Fact%20Sheets/302-3801%94SAEB-QNQ-1%20PATIENT%20FACT%20SHEET .pdfBASI METABOLIC [id number] 06:35:26 Test Item Value Reference Range Interpretation [...] S NOT APPLICABLE FOR DIALYSIS PATIEN TS. Hotel Reservation Agent ID - [id number] ID - [id number] ID - ISVOIFFZI665Ygbihzwy ID - QXSGTCMEP623Ylkufulp ID - UVGFDUBQV161Begcdain ID - GVSVSEWVF093Xgfbkejn ID - RECLLESUF659Qrvmoamb ID - UZCHRAIAM690Qgbxvdzd ID - WPXTKXGSO899Kmupmdly ID - HCPZGCEQV447Bpnwzdyg ID - BIHCCZHGE057Kzptrqws ID - LJHPVUVZZ804Cfpwuege ID - WLNSDOJXO576WTM, CHEST, PA OR AP, 1 [id number] 16:28:00VAT/Infusion Therapy Nurse to Call Radiology Department when patient is readyReason for exam:->Antibiotics greater than 7 days [facility] : 1955 Sex: MFINAL [...] [place] Verified Date/Time: 02/17/2022 16:28:21 Reading Location: [facility] Radiology Reading Room BASI METABOLIC [id number] 06:49:08 Test Item Value Reference Range Interpretation [...] S NOT APPLICABLE FOR DIALYSIS PATIEN TS. Hotel Reservation Agent ID - [id number] ID - RRXD17Wiphxpvn ID - HUIV40Hndniblv ID - FRHZ73Ijzivtfz ID - CIEO02Rliuwxtd ID - DFKH10Graihywe ID - KBSH59Sohmwnny ID - DFNB19Abrfxomv ID - DSENSONOperator ID - DSENSONOperator ID - DSENSONOperator ID - DSENSONOperator ID - DSENSONBLOOD [id number] 19:02:29 Test Item Value Reference Range Interpretation Comments CULTURE (BEAKER) (test No growth in 5 days code = 1095) BLOOD [id number] 19:02:29 Test Item Value Reference Range Interpretation Comments CULTURE (BEAKER) (test No growth in 5 days code = 1095) BASIC METABOLIC [id number] 15:25:26 Test Item Value Reference Range Interpretation [...] S NOT APPLICABLE FOR DIALYSIS PATIEN TS. Hotel Reservation Agent ID - LITOOperator ID - LITOOperator ID - LITOOperator ID - LITOOperator ID - LITOOperator ID - LITOOperator ID - LITOOperator ID - LITOOperator ID - LITOOperator ID - LITOOperator ID - LITOOperator ID - LITOOperator ID - JOSSY ANAEROBIC [id number] 13:12:43 Test Item Value Reference Range Interpretation Comments CULTURE (BEAKER) (test No anaerobes isolated code = 1095) Anaerobic [id number] 13:11:59 Test Item Value Reference Range Interpretation Comments Result (test code = No anaerobes isolated 6463-4) [facility] [id number] 13:11:59 Test Item Value Reference Range Interpretation Comments Result (test code = No anaerobes isolated 6463-4) [facility] [id number] 13:11:59 Test Item Value Reference Range Interpretation Comments Result (test code = No anaerobes isolated 6463-4) [facility] [id number] 13:11:59 Test Item Value Reference Range Interpretation Comments CULTURE (BEAKER) (test No anaerobes isolated code = 1095) Surgically obtained culture + gram [id number] 10:40:18 Test Item Value Reference Range Interpretation Comments Result (test code = 6463-4) No growth Gram Stain Result (test No organisms seen code = 1123) [facility] gram [id number] 10:40:18 Test Item Value Reference Range Interpretation Comments Result (test code = 6463-4) No growth Gram Stain Result (test No organisms seen code = 1123) [facility] + gram [id number] 10:40:18 Test Item Value Reference Range Interpretation Comments Result (test code = 6463-4) No growth Gram Stain Result (test No organisms seen code = 1123) [facility] GRAM [id number] 10:40:18 Test Item Value Reference Range Interpretation Comments CULTURE (BEAKER) (test No growth code = 1095) GRAM STAIN RESULT <1+ White blood cells (BEAKER) (test code = seen 1123) GRAM STAIN RESULT No organisms seen (BEAKER) (test code = 17834) SURGICALLY OBTAINED CULTURE + GRAM [id number] 10:39:44 Test Item Value Reference Range Interpretation Comments CULTURE (BEAKER) (test No growth code = 1095) GRAM STAIN RESULT No White blood cells (BEAKER) (test code = seen 1123) GRAM STAIN RESULT No organisms seen (BEAKER) (test code = 10574) CBC W/PLT COUNT & AUTO [id number] 06:20:13 Test Item Value Reference Range Interpretation [...] code = 2801) WOUND CULTURE + GRAM [id number] 11:29:11 Test Item Value Reference Range Interpretation [...] gram negative (BEAKER) (test code rods = 406119) <1+ Skin floraBASIC METABOLIC [id number] 06:35:58 Test Item Value Reference Range Interpretation [...] S NOT APPLICABLE FOR DIALYSIS PATIEN TS. Hotel Reservation Agent ID - [id number] ID - [id number] ID - [id number] ID - [id number] ID - [id number] ID - [id number] ID - [id number] ID - WQYI81Oilxbdir ID - KIGK62Ldalypio ID - [id number] ID - KHAI58Dwmjfbah ID - [id number] ID - [id number] W/PLT COUNT & AUTO [id number] 05:58:08 Test Item Value Reference Range Interpretation [...] (BEAKER) (test code = 2801) RAD, LEG, [id number] 19:36:00Reason for exam:->fall, pain in proximal [facility]fib[facility] : 1955 Sex: MFINAL REPORT RAD, LEG, TIBIA \\T\\ FIBULA, 2 VIEWS, RIGHT HISTORY: fall, pain in proximal tibfib COMPARISON: None IMPRESSION:1.Age-indeterminate impacted and mildly angulated fractures of the proximal right tibial and fibular metaphyses. 2.Vascular calcifications. 3.Surgical clips project over the medial right thigh. Signed: Nicolas Mathis Verified Date/Time: 02/11/2022 19:36:16 -COV2/RT-PCR ([facility])2022-02-11 18:39:17 Test Item Value Reference Range Interpretation Comments SARS-COV2/RT-PCR Negative Negative The SARS-Co V-2 target (test code = nucleic acids a re not 1815082) detected in thi s specimen. Negative result [...] revoked sooner. Fact Sheet for Healthcare Providers: https://www.[employer].co m/Documents/Xpert%20Xpress%20SARS%20CoV-2/Fact%20Sheets/846-2013%80TZKC-MGQ-3%20 HEALTHCARE%20PROVIDERS%20FACT%20SHEET.pdf Fact Sheet for Healthcare Patients: https://www.[employer]/Documents/Xpert%20Xp ress%20SARS%20CoV-2/Fact%20Sheets/431-5538%83GBOO-WHL-5%20PATIENT%20FACT%20SHEET .pdfCOMPREHENSIVE METABOLIC [id number] 18:20:57 Test Item Value Reference Range Interpretation [...] S NOT APPLICABLE FOR DIALYSIS PATIEN TS. Hotel Reservation Agent ID - [id number] ID - [id number] ID - [id number] ID - [id number] ID - [id number] ID - [id number] ID - [id number] ID - [id number] ID - [id number] ID - [id number] ID - [id number] ID - [id number] ID - [id number] ID - [id number] ID - [id number] ID - [id number] ID - [id number] ID - [id number] ID - [id number]- REACTIVE [id number] 18:18:23 Test Item Value Reference Range Interpretation Comments C-REACTIVE PROTEIN (BEAKER) (test 1.04 mg/dL 0.00-0.50 H code = 676) Hotel Reservation Agent ID - [id number] W/PLT COUNT & AUTO RNOGGLOLLNNZ6810-08-65 18:07:01 Test Item Value Reference Range Interpretation [...] code = 2801) CT CERVICAL SPINE W/O [id number] 08:58:38 [facility] : 1955 Sex: MExam: [...] MD 01/27/2022 8:58 AM CDT HEAD W/O [id number] 08:54:02 [facility] : 1955 Sex: MExam: [...] MD 01/27/2022 8:54 AM CDT FACIAL W/O [id number] 08:53:06[facility] : 1955 Sex: MEXAMINATION:CT [...] [place] MD 01/27/2022 8:53 AM CDT 96642IBPCSOL METABOLIC PANEL 2022-01-22 18:04:00 Test Item Value [...] 8.9 mg/dL 8.5-10.5 N CA) CBC W/AUTO [id number] 17:54:00 Test Item Value Reference Range Interpretation [...] BA#) 0.1 x10 3/uL 0.0-0.1 N TISSUE [id number] 15:49:31Surgical Pathology Report Case: [id number] Authorizing Provider: Lashawn Watts Collected: 01/04/2022 01:10 PM MD Adam Ordering Location: [address] Med/Surg Received: 01/07/2022 09:52 AM Pathol ogist: Virgil Gaspar MD Specimen: Leg, Left, left aka LEG, LEFT, ABOVE KNEE AMPUTATION: - SEVERE CALCIFIC ATHEROSCLEROSIS - BONE MARGIN, NEGATIVE FOR ACUTE OSTEOMYELITIS - SKIN ANDSOFT TISSUE MARGIN HISTOLOGICALLY VIABLE- SKIN AND SOFT TISSUE WITH MARKED ACUTE INFLAMMATION AND NECROSIS Signing Pathologist Direct Phone Line: [phone] signed by Virgil Gaspar MD on 01/16/2022 at 3:49 [id number], 72784Gfhcylhv of left leg A. Leg, Left.Received freshin a container labeled with at least two patient identifiers and "leg, left" is an above-knee amputation specimen: proximal portion to knee - 14 cm in length x 10 cm in diameter, knee to heel - 55 x 10to 6 cm in diameter, and foot 22 [...] cm from the proximal margin and extends to involve the lateral foot. There is recent prior [...] distalA9, skin and soft tissue at margin, payroll representative ND/ew Sections show marked calcific atherosclerosis. [...] few 965) CBC W/PLT COUNT & AUTO [id number] 12:04:20 Test Item Value Reference Range Interpretation [...] (BEAKER) (test code = 413) COMPREHENSIVE METABOLIC [id number] 12:03:23 Test Item Value Reference Range Interpretation [...] S NOT APPLICABLE FOR DIALYSIS PATIEN TS. Hotel Reservation Agent ID - DSENSONOperator ID - DSENSONOperator ID [...] 98 mg/dL 70-110 : TE STED AT [facility] code = 1538) [address] [facility] [address]: Hotel Reservation Agent/Techni yadi ID = [id number] for Nadya Pereira Lab Interpretation (test Normal code = 88034-6) [facility] [id number] 21:40:27 Test Item Value Reference Range Interpretation Comments POC-GLUCOSE METER 98 mg/dL 70-110 : TESTED A T [facility] [address] (BEAKER) (test code = [address]) [facility] [address]: Hotel Reservation Agent/Techni yadi ID = [id number] for Juan Ayers Chloride, random wrkcm2683-52-46 17:57:40 Test Item Value Reference Range Interpretation Comments Chloride, Urine 46 meq/L (test code = 01431-1) RAMON (test code = Reference Range: No RAMON) NormalsOperator ID - [id number] [facility] random [id number] 17:57:40 Test Item Value Reference Range Interpretation Comments ChlorideUr (test 46 meq/L code = 92356-3) RAMON (test code = Reference Range: No RAMON) NormalsOperator ID - [id number] [facility], random [id number] 17:57:40 Test Item Value Reference Range Interpretation Comments ChlorideUr (test 46 meq/L code = 26260-2) RAMON (test code = Reference Range: No RAMON) NormalsOperator ID - [id number] [facility], random [id number] 17:57:40 Test Item Value Reference Range Interpretation Comments ChlorideUr (test 46 meq/L code = 96804-0) RAMON (test code = Reference Range: No RAMON) NormalsOperator ID - [id number] [facility] HospitalCHLORIDE, RANDOM [id number] 17:57:40 Test Item Value Reference Range Interpretation Comments CHLORIDE URINE (BEAKER) (test code = 46 meq/L 682) Reference Range: No NormalsOperator ID - [id number], random [id number] 17:51:25 Test Item Value Reference Range Interpretation Comments Sodium Urine (test 54 meq/L code = 2955-3) RAMON (test code = Reference Range: No RAMON) NormalsOperator ID - [id number] [facility] [id number] 17:51:25 Test Item Value Reference Range Interpretation Comments Sodium Urine (test 54 meq/L code = 2955-3) RAMON (test code = Reference Range: No RAMON) NormalsOperator ID - [id number] [facility], random [id number] 17:51:25 Test Item Value Reference Range Interpretation Comments Sodium Urine (test 54 meq/L code = 2955-3) RAMON (test code = Reference Range: No RAMON) NormalsOperator ID - [id number] [facility], random [id number] 17:51:25 Test Item Value Reference Range Interpretation Comments Sodium Urine (test 54 meq/L code = 2955-3) RAMON (test code = Reference Range: No RAMON) NormalsOperator ID - [id number] [facility] HospitalODIUM, RANDOM [id number] 17:51:25 Test Item Value Reference Range Interpretation Comments SODIUM URINE (BEAKER) (test code = 54 meq/L 243) Reference Range: No NormalsOperator ID - [id number], random urine 2022-01-09 17:51:24 Test Item Value Reference Range Interpretation Comments Potassium Urine 4.8 meq/L (test code = 2828-2) RAMON (test code = Reference Range: No RAMON) NormalsOperator ID - [id number] [facility] HospitalPotassium, random [id number] 17:51:24 Test Item Value Reference Range Interpretation Comments Potassium Urine 4.8 meq/L (test code = 2828-2) RAMON (test code = Reference Range: No RAMON) NormalsOperator ID - [id number] [facility] HospitalPotassium, random [id number] 17:51:24 Test Item Value Reference Range Interpretation Comments Potassium Urine 4.8 meq/L (test code = 2828-2) RAMON (test code = Reference Range: No RAMON) NormalsOperator ID - [id number] [facility] HospitalPotassium, random [id number] 17:51:24 Test Item Value Reference Range Interpretation Comments Potassium Urine 4.8 meq/L (test code = 2828-2) RAMON (test code = Reference Range: No RAMON) NormalsOperator ID - [id number] [facility] HospitalPOTASSIUM, RANDOM [id number] 17:51:24 Test Item Value Reference Range Interpretation Comments POTASSIUM URINE (BEAKER) (test code 4.8 meq/L = 195) Reference Range: No NormalsOperator ID - [id number] METABOLIC PANEL 2022-01-09 05:48:19 Test Item Value [...] S NOT APPLICABLE FOR DIALYSIS PATIEN TS. Hotel Reservation Agent ID - NSUVAGIYAOperator ID - NSUVAGIYAOperator ID - NSUVAGIYAOperator ID - NSUVAGIYAOperatorID - NSUVAGIYAOperator ID - NSUVAGIYAOperator ID - NSUVAGIYAOperator ID - NSUVAGIYAOperator ID - NSUVAGIYAOperator ID - NSUVAGIYAOperator ID - NSUVAGIYAOperator ID - NSUVAGIYAOperator ID - NSUVAGIYAOperator ID - NSUVAGIYAOperator ID - NSUVAGIYAOperator ID - NSUVAGIYA [id number] 05:37:47 Test Item Value Reference Range Interpretation Comments MAGNESIUM (BEAKER) (test code = 2.0 mg/dL 1.5-3.0 627) Hotel Reservation Agent ID - NSUVAGIYAOperator ID - NSUVAGIYAOperator ID - NSUVAGIYAOperator ID - [id number] W/PLT COUNT & AUTO [id number] 05:08:40 Test Item Value Reference Range Interpretation [...] PERCENT (BEAKER) (test code = 2801) POC-Glucose [id number] 22:03:29 Test Item Value Reference Range Interpretation Comments POC-Glucose Meter (test 91 mg/dL 70-110 : TE STED AT [facility] code = 1538) [address] [address]: Hotel Reservation Agent/Techni yadi ID = [id number] for Era Rebecca Lab Interpretation (test Normal code = 44418-8) [facility] HospitalPOCT-GLUCOSE [id number] 22:03:29 Test Item Value Reference Range Interpretation Comments POC-GLUCOSE METER 91 mg/dL 70-110 : TESTED A T [facility] [address] (BEAKER) (test code = [address]) [facility] [address]: Hotel Reservation Agent/Techni yadi ID = [id number] for Oyeb jaciel, Rebecca Tissue Sssr9638-01-98 08:44:54 Test Item Value Reference Range Interpretation Comments Case Report (test code Surgical Pathology = 104) Report Case: [id number] Authorizing Provider: Lashawn Watts Collected: 01/02/2022 08:03 PM MD Adam Ordering Location: [address] Med/Surg Received: 01/06/2022 07:55 AM Pathologist: Virgil Gaspar MD Specimens: A) - Soft Tissue, Debridement, LEFT LEG LATERAL COMPARTMENT B) - Toe, Left, SECOND TOE LEFT FOOT DIAGNOSIS (test code = k8fwkYAgRBFbc0nnKKIxbI 3220) FuZzEwMzNcZnRuYmpcdWMx IHtccnRmMVxlcGljOTYwMl qgjwIjXXLwpMXgT8Yhdflr YVzmIA9hYB7uiJbjfJCfjP FaHMKsAgUzm8scv717sAWn g1bqAULAerzzkLi5nNgbG0 1dx6A9OyekQ72vxWUwZPL2 HEXgWQSbwBXbCWYaIHP7UB TrsGJxY8qvMGJnLC0ptyoz ZWknGYfcUDWmvAB7LSGgvT DqX5CvXGNxVQpsOCBuclg5 CeGaLn2dhVOjuDzlSGrlLJ DqEPJcNHzzUKMdAjTcCG6w U53RPZORUQUFVRJiQHlNGx HdGAPHUAyKBYKYCGtcY97S SGOJTC6HIbBeZLXDEuICAK BLRF4GIrddYESgyGWlAD2i B24WZPXRLRCDYNUhY3iGWV BTXYOWE6NBApSIQgBnDMMJ U1HVTJiCKwtNXJ9ITAoKSl mjD7MONP9UJ2OXF9SXMBpH GBPckjkgSICfQn6yS2JLD9 2STKUBJKszOCATRDjjZK3K VVRBVElPTjpccGFyXHRhYi AlLAVAY6uTYJLBTF6MRnvF ZstnDfPUMVKXKxUzVx1AUW DFJPDKPU9DFBUUUIkWTYmZ SVNccGFyXHRhYiAtIFNLSU 4zTF6JVUCXIrZfLIfRY1YE WA7QSsdXRjPSTHBLO1mJW9 lDQUxMWSBWSUFCTEVccGFy XEKjUcQsSHDNVUJYHK2PBN VPTVlFTElUSVNccGFyXHRh NmRzVCQOWJ9nYS7KRNZZYr NiVDaFL7DEEVmJYFkjR3VG G5AYXs9XKzREUEXLT5UGU1 czNOX4r0rxtNHjGABzbKGa ODAwMFxhbnNpXGRlZmxhbm joPDVtCME7hkRpRGNjUXiw RGYzWWuaUg1dvNWmdHpzBq RsULHpc8lvxrGVgpobdJt1 v7cpRNGjHxU8zVHjJIcrA5 keuqYaoVUtAQLvPBw9pG40 SLKubX5dnGAkCOmkthWrIz M8WJudCNSyQzT8PLDhvDLw UXXvR0jfIBVaKYevKFGvCN razDMmAZP6sWjlj6Y9wIGc aGVldHtcZjBcZnMyMiBOb3 PcJDw6jKbsH2UrMNFaJaC5 bHQgUGFyYWdyYXBoIEZvbn J7cS10OOdfteF3wWOkm3Cx h00cz024vM5vgUZcEKJ2BQ GqWRYubUCpQRApNVZ4HLSf bXNnM6euPMEfFA2sjtwxDL stWCerASDiqPJ6RGJamFBp T1AyDIRpXUmjGLMqfbu9Jm QpTc7oiSLddTepKBkyy1bc h9whfCScQyx4AWNhQdDvTk qoOUneq5Tpk5xnLXQjek4r EKY8yYBnxMxcv8Y5mXTeMF PrnFNtNDNcMF2ecVBrCHFr nV6ckojxGOAuZsJimpbaLC KxlKxeyzNmNo6yvEoyFKD0 TXylC5ngjV1cJrD4BJqmH4 hpbH8sLJn9IFbxRJKeqGV1 pbA2VYTqeIKnV5AowI3fQG AvCH3qxnm6v0ipCNY9VGjc YVToTuH1dcG0TUComIYnLU TlyTvaARwuc683SBN4UyMs JJKog3KiI1WfkIllU18ykK nfU95vFLEerGxwgH3rwWpj cA5wVmFrJiGbMAoovNnxTF 7yYZHuC9wowTSsXYJvVOXv C5okPlYijG5ezIhxLPjeof OyAQWvRhn8XXPsdAHaGFJu Tym1CSNbHVKkI65bgybvLU A9zH9xo1sff9AxQIotGBC2 VZRqv65eTIsrzpD8DBhwQl 00HuLuDcJ8ZIapRVG4zQ== CPT Code(s) (test code o6oqbLQuYGTiqHB5NwHiAS = 3357) Uzu2qda2MppAJbsSPcMWny oSScyaHoyy64hIU8uU60SS 1mBAWgFdB0UFSbaaA5Fgu7 VJGrWFDpjADsJ757a3nnu0 alozSbmCX8rAucFXAviwkj KfA2SImrPQKhpwmuJQu1PF tqSOZycES5UJXbuVVqA4Lk XRSnHI8xegk4EWH8XGbrVV UbHmZ4ADRtqULcLZVghRzo WMvpk549GDL2UcWhUNYudc MlyPghoT3eAiMuJKA5FPUo VKkuIWdrRVQqKWt6UcVaFY Bhcn0= CLINICAL HISTORY (test t2duzYVyMWOhoER1WcTnKL code = 3356) Lmu1mpn1ShiRPnfIWeNBpu xSKinsHpmo05fGW1hC29TR 9eDWGqUmB6OJPlrgV7Isa8 ETMrMRRhxLXmD696c9rru6 bzbgSrhDJ7mSflBCNuagmg XvD8YVwyLTAqamomFKx3DS oaLRHtnGO9BGGuzOQrO3Pa KMCkCC9szej2LEE1NRhsMS ExTmQ2GMCveQXcXPHeyEzj PUxnd287SKG6BjTsEXChvv OalYbzaI9qAlLkONNHUE6f cmVuZSBccGFyfQ== GROSS DESCRIPTION (test z2uhuNOfVVQmmVV3WjCiIU code = [id number]) Fuu8tjh4TmiYZrjKTxIJpo bDLennTxnx59iVG5zP52SS 5vZLAvVpV8WUJoexN0Kee1 GKJzOLHkhDLeX204r2xqn4 acvqHuaEH8WLBiSXHyY1Mg YZ8mZRQsdBIgW86ueUGtNC T4XAEwBLYsfJPrGYKqAWP7 EMFlqELgP3riIWDmNS7vye fiMXctMIsxOZYqrVD8SAFy rZCuX0JeOEGyCEpeASMkud d2MoEcYs0osIPhiAhnJDmr MOGyt8zhDYQyxWGxPMO1IN gwlWKpOINdEPGhZYf0FEHm DBvyoEEcTU9cbCpsWvohtR jln3IomZBaHPpbUVThVSYe JGbqFEHnQ3UCLWAdFLQ1Wr Q2VPTwQCp0NAleC2WDLYHn JPS8ZhMbRNN1DgH8WAp1FK GCUs5yZWAuWNN9ZsF3OPJ7 ItU2RPxwiOVsRMvyFnhrFD exVDDhcCLsUVrbjqH9FMTo EGuxLOImMnNvQK4qT54aeV BUaXNzdWUsIERlYnJpZGVt UW35DavtFJEhBvAiUYbbCc AqPuGwVZq3QXMcgO3yYy8u pEJoqS5efEOdPUvsFAYhv1 1daAC2vZLvbLVkXSWxQzSw POWoRI46LbYtzpWfejYbyd FsZ2PrZJByuO2llJetglWm DxTyw1Z6LDXgr1I8IQElDI hxW21feHL4RUXtBAdgUD29 SPEfQG0vQMtvXDXzv1D0QF NwhlGxb33zttgyQIMvn8Qn tIlgQ3jneEDbUwVlvi45li B2lFHmzXJyWS6zGELyoCBe HGHnKRseUDUzn3ftUFyjKB fbZL9bTWDnz435oP3rUCco WJ4zzN6emBSbYXD2smPiM5 WldQBgH1VaaLYoseUaVrNu u79xk0y8lQLiKSszuqTanK Twiw34kqVlg5Q9LPYwv6L0 OD7qCDD4CYLsROJpsN5etN slKFVezEGxVD8sDUIjJS8u cwUzk7PsOVWvm9B9KTVvea LvBVRquqIdq42me1OtkhVd ASFcw2bqBWDnl6J7AZL0rH HiKUWdpA45uTsoISMzlKWb YXJhbmNlLiBSZXByZXNlbn PdeKo7LWAfMYZ4eZ5yceOj lkXff4SmvVi1aRCfAZtlNJ UzAOW1KohuZXN1NYDmiVUw XVV9EO0bLPLemghiYLYlJV ZjGWK4TZvmzU01aNRiYAMu MTZccGFyfXtcKlxlcGljc2 VjdCBcXGlkIDUxMDAyIFxc SUJrN7UWKDInUDK8EuA4XK AbZIj5VWdlP6GXOQDcZQC3 RiSpHsEeAtQ6BDp8YLFWTj 9aEKJmLWG8DVM5YCH5RgT2 IFxcdCAyIFxcZmwgXFxmIE JskLHfGBmirqN5HHZvWnEa L5ZmHPQzMLVePUxgPLBgkR 1zhZVaFMQxPoWrO4AqBUFe A7QglmXqROeeAGTmhh3huG luIGxhYmVsZWQgInRvZSBs RDV2QtTzzmTdXTFmz1HdrF tssZxneVFaSZXxQSQoQH85 OMCbHJmoHRacuvh2hHC5ZY VwIHRvIDEuNSBjbSBpbiBk aWFtZXRlcikuIFRoZSBzdX ZpfmewszVftGAzGAOlLX2y WHCwHQG0y6CrcPKtnjDgHS Ctg6sjCOKjPTNti0V2xKVm DNQ1zXRrYSUys4QtdPjcQf Wgj6fzYnJMbTMyETEcwoOq owJtveGaE3MqzN7dakNriV MgjYT0mNYiMOtfiAKaNISi msDlm64wIGDeFYOrzUV0FV EuMSBjbSkuIFRoZSBkaXNj s7zhtkT9hO6dPZW6uGZoBN ImlY8pjC2tJQKnWJL6dYA7 bVUvsT2elxRmqR8eGNmmSR XekNHmodIfvvKsRmN2hAKu e1zcakVbbyQgkzG8TBOmZV Cje0O7oVJaBjXBEIIfJZXc yfJqaQx6CCVmDWP7sE0lhp VfjbZps9LjpJf1hKFhWZKc uZIvIYQpI8OqV0cgcIKesK wwyucvFNXrRw3euD53lzne QjEsIGFydGljdWxhciBzdX OrBJCdWvOGJwrbf3lixxOp bdLxd01vxMM2rRZzyDYbNO WvzQEoH8itCuANAs2UNSxx V6Yiy7Qlr5AmsGzemzVlZk RftdZzjbIslE4vCOYyl57b PQkmsJNoYAAqUGLty9lxeV FsLlxwYXJccGFyXHBhciBU tPlgUZRaw2Xxi2IxCTTeP9 DtggIdTPhuWWK8xxXzJTS2 cywgZWFjaCBsYWJlbGVkIH gsbUvfXPOsiGKxa5WaqFpr IHBhdGllbnQgaWRlbnRpZm awfoPkTK0uEWCfBSZodJNt nT2prkKek2VtY0KxPB6XJ7 M7i8jdoBmqr4UqkPJpWT21 TVEhdTGwPGU4NO2xoWfbSW J9 MICROSCOPIC DESCRIPTION f8llaTMcKXJwsLV8QaSoUB (test code = 3371) Sjf2gea7TjqPAnfNPiEBih oZWnewSqrl06uWU1vB14QV 0jWFHdFwQ7WUCotjB4Kxv5 DNSsCTEerRBvH547x2yax8 gopnDofZB4qKgpVINhayan UgE7AKgfPPYbpnwcPTf6RO mgBIXnpWL4CLXujAGpI7Yo OELnKD2wbaj8GRB7PClqPD XjVfT3LBNhtORfJLVskQjy VLzca567XZW3JzNkKVFsyf KgbVjgzK4sWwAhHFLQIqFF aGUgbGVmdCBsYXRlcmFsIG AwzCXseiYqZP83CKKfWeZu RLJaUX29GZObl4isZU4fS0 Bsw9orKOGnIHSrvYDobzJj zwNasI8xmAIlzYY1aK5kWQ yfcy0gapkeEgDmtYKqq1Dn BXQmd6G2ATdrQG4cNOS6oI VuZGluZyBpbnRvIHNrZWxl oXJnBK13t6ZtJZVuztDwZA WnuD4hJZO6vDQcgFEzDTJg gyJzlJW3bL4yLXabnEikwJ zfso1drA0zt8ooH2DcHJN4 tUFbQGSvzVUfjzXog14zGG 6kAODiWTTzbnqfWAWrJv0q B4JhdChigoPwn6tafrHbCE Ysm3OvYgHav1ngPHRtJBFn l3P7ZQTfd2I4WKS0jAEdYA SuWLWzhGvogwbaRGZ9aNEp g0Q7YK2trBEwoWIeka2sbP FyfQ== [facility] [id number] 08:44:54 Test Item Value Reference Range Interpretation Comments Case Report (test code Surgical Pathology = 104) Report Case: [id number] Authorizing Provider: Lashawn Watts Collected: 01/02/2022 08:03 PM MD Adam Ordering Location: [address] Med/Surg Received: 01/06/2022 07:55 AM Pathologist: Virgil Gaspar MD Specimens: A) - Soft Tissue, Debridement, LEFT LEG LATERAL COMPARTMENT B) - Toe, Left, SECOND TOE LEFT FOOT DIAGNOSIS (test code = k2xcaRCoPHGvs6omYGIbcW 3220) FuZzEwMzNcZnRuYmpcdWMx IHtccnRmMVxlcGljOTYwMl jwmjYoSHBwhWSsT6Kbnzlv JKvePB9mJZ0xiQgqjQFdcN GfMTBaEuUmq1nqy667pUDj q6mqYHRHwcizfVj1dCesF0 8sw0D4IaysQ78caOPeOEH9 JYCxYDNrqLBrFWLvJFC2OJ UcaBFjJ5kpCULqOT7dcwom KRmxJLkrRBSrzEL3KHNpmT FtD3OcEYWhQUpiKRXgfsu1 ZjLiBf4jcBEswEagDMhpSG YkVFMvSLnhRNNqQtNeDE2i V75VJVIXSUUAMUHhSKrYPi WvOOCPPFuSTLMBQIghB29U MMWXCT4PQzDkRMUUZaETYI DMGL2OUuvzMUQraAVeDK2c T75WKQBRBWRQZTUgD8wICU ALBANJJ3ZCMmQPKuVdGOLN K1JIULcERxsFEI0XIIvGEi kvE2WQWC9YO3QCN3RBBTxD GXHchkyeMXDtZv0aA3XAU9 9QJPQUHIwlXOKOROenPO3L VVRBVElPTjpccGFyXHRhYi OfIUAIS9mQOGEBND3CMpmE KshwPoMKRUINDrCpGl2ZMK UZJGYCLO7KMOPSRIhEPCpY SVNccGFyXHRhYiAtIFNLSU 2fOY3TBIIJKhLdPQwBL5ZJ KL4BMugJNyYWSTBRO2tSR7 lDQUxMWSBWSUFCTEVccGFy IMCxQvOfGUPUYCQIFN0ZLD VPTVlFTElUSVNccGFyXHRh NsJhGLTYWP5uIZ5FIAOIIh QmHRoLN3CZADyWKXefA2PC W9MNHl5CUkYVVWEPY8HZH5 uoLDQ6k6nqoVBiXATqgKRl ODAwMFxhbnNpXGRlZmxhbm bhJCTdHOL5kcJkGIJiTWyl WHQzWCagJe3inVMqmWtsVs JiJXBqr1zeleNVqvbaiRa2 w9ybXQYiRvQ8sSQqPRxnJ2 zlaoDuyHUtFVTdCSh7fU90 MULdlM2vrVPvYTypviXnAr J9UImxVXIyPeK7QYCcuCVv DCZyM0hkSJBkVOviANWqUK fysCYkZBS3sQisw3R9iEDr aGVldHtcZjBcZnMyMiBOb3 NgPVo2bJobF8RdPSKyFwP8 bHQgUGFyYWdyYXBoIEZvbn G0iI89YSapqbD5uAKrs3Lw f96gs159mG2ocSCyBJO1IK ElMMMblFQkAFPxWIK1LPFq vQIyQ4rzNSTiMS4ireyrPX ozMXdsJDEemKL0XCKjhZKk C8NrLEXoNHgoVGTutcj3Et PwJt6rgKCirWdiNBlhq0fp q8lmaNNgJzm8AQQaVbSnLk lqEWkgw8Ymh4jvBZNfdz1c KRV9yJOmbHfqx3E9hPKeKV KujPUsWROxSW1qtXVyGVJu cS9noadvSOHdArFpewbnLQ AmrXzgvnShSv4zsXehFBB5 QRhxF3lhmY4wVzE4TPaeQ3 mrrW4uYTc6ISalKODgcMN2 exB7UAEbfKUgL6QpaV6tSE XySU3ntgt1p2iuIMQ2LKnb VDMwMuJ6ypK8WZDhbKMiMI XbaNhcOXufz828GUQ4ImDt MDIze8NvI8TugZqsB57jcQ lwF21yIOMjrVxanI2tgAxx sP0wXyNsUfCgDMgjsDnkPE 9oAVBkB2pqcEQyGATbYCZy K9ykXtWaiI0lqZjfMWxwuf VcZVRsNxl1MBCrsWOfOGIv Mhy8WTCgUEIhV34rjzcfIL D7lH7lp7bxi9HkCRamCEX0 DNCrr71bGKxkpvN7CLvgYs 09QlRwGdO9VDxxECI3cZ== CPT Code(s) (test code b8onlVJrLIHtoGV9ZeIfUT = 3357) Wrd6rad5WhjPCdfDNhNSvg yUAdaeQrpt92aGH4yG76NB 5vKYViQuI5IMWpbpC9Bkw5 JZRxZGVzkOWbH411d0fmi4 uobmBcqFZ2oEokMKDjggzn UeG0NCbiJEBtjrxpWUy9VA mbOBQwfDR5DIUlpOEqM9Yp KKYgGC1rcxz3UHY8RUdkHH RmKvE2RHSskRUiHJWlmAue IZbfs727ORI0FpFbKICsnv DxxUggvS0tOsMqTKI6LLPm QFjaIPnuPUBkIUn6TkNcBF Bhcn0= CLINICAL HISTORY (test h7xduEOzSIGwhJE1LgMqPN code = 3356) Cfx9ypa2MenNAsuOUrLKgx sIZrqmWlkf09iXT8xI87SE 0tHELkCjN5MPMncjR4Gsr8 RNGiHKJanBTeK141n4ung9 wvufIokUW1vPqpTWVuwqwk JfI4CHicPTTmltbmYPj2NY bcGSVtbAW6UKXfpZOsX2Sl NIFqBH1agiw9TIX8SSikAL LyGrF5WMXfwKBiQTNznTnl AZjhf569KGV9OiEmNJMtar NhhWoluA0hVwCkPUGOEO0u cmVuZSBccGFyfQ== GROSS DESCRIPTION (test e3wpiVYhYZZnkZF0GzRbBT code = 1854359809) Tus4krg4RscZPxpQOhFHvf uLZlyrWjpt81cET5jJ55QN 5mPJYzRcB1CBNfmlR0Ktt9 TVFvDAScuHFwS741n5wwb6 citqRhwDV2SMZyLHWmP7Tw EB1kZPKjpLTmT61tvDHtJC J0FGCqNIAdrZZcIKItWFM7 HLRyaDLyH3muBHZsNY9hor hxKEcpFOghAISvqAV8EMXi mOPtV8UfWHLjZSqgPBUauo m1ZfVxUm3ruLXwrXurGCcp WEJcm4mxUBPvhRQkIGX6SF vpzRQbNDFrOYVcUJw7DNBb OFkhwZGkYC9fxLxpXhecaE jzu4GvhBHoPGhoEBWtYOPa ORrxNURxM5BYAUMfAKL1Gv Z1QAUtIGy4ZHcaZ6LBGBLu TKF2RwHqTEK4PpY0JBw0HX RLQc2iOSVxYCB7NlJ2LOZ9 FnC2IRjzkHErNNhbUvtaLU qbNSYnmAMmXEtjmgJ9XULx OCymNOJrEnFyJS7tD54hrC BUaXNzdWUsIERlYnJpZGVt CW50HtszPLAoOaMtEKanYm BaTiHnDBu0ICFppX1lVm5o yPUtpS1ueDLeTQopSUYfa4 3vlHG8nBXfmAPxJIJoFmRe XRSnCE39AxAxmmWwlcOpuo HkT2IoMSJlgX0zmZhktmIn VtAgb6C6EJZve0Q8OWDnYU fbQ32ebLB4MNZaTQlaSW14 KEGmKM2vLQiwHFYii7R3UV IgsjNii27jwgmnCPSlx5Ke rPshR9biaHAnGhVnjq60kz F7wRUkqQZsAF1bVMHunBDb SOUnPLpxGKKli5wbRZdlAD ecMG3qVAEcp975zZ4nNDvc GH2qgJ0dcQVuMTX7wfDhA5 WetOTaT6TilMAvucRtMxPj b53pv8d1rWAfOWhexkBoxA Touu55uoJkk2L7YTAmi1I2 ND4nYKV6OQGtTZBxnP0jsV hgLHPgkGQjQE1sTTSbCX2e luTtt5WsXNFdm1P5RMYecn KdNQVbhkCcb62pf0PazkKo XZGpn1mjYYUtr4A6ISA7sA WkBYFfvH16eRztLILvgOSz YXJhbmNlLiBSZXByZXNlbn DlwZf9ZOIkSNF4qS1icaWx uqBtw1AnzSb0mEVxLQwoBN DgQHX4ItlkKMK8BQZutTVk YYV5KJ5fTJJxayoaIUYrQL TtNHN7LNhkpH23cZBhIQWk MTZccGFyfXtcKlxlcGljc2 VjdCBcXGlkIDUxMDAyIFxc YOWvN5CCAQDfALX6OkN7MG MzLWm5KUpaQ1QWPAEpLSK6 VlUfJgZyIrX5GZe9PKTPNm 9vWCOjZEF0ASE8MWX3LvM4 IFxcdCAyIFxcZmwgXFxmIE RlzFVjGOejjlV5YCMqUaZj I5DgLLHnUVSdTZjhSWXuqG 8nuONiOCOlSzSyG4GlDPUx P7OuplYbLLsmRARitp9guH luIGxhYmVsZWQgInRvZSBs QSS4LiYdotNoKZCpf8DeoV mpxSrxpIEsVPIkKAMvWM81 JSIuUIjtMRgrdlt0gNQ2DS VwIHRvIDEuNSBjbSBpbiBk aWFtZXRlcikuIFRoZSBzdX MgdyyeabMhoEXbAHXxAH7x RGJqJFP4z2VxoMKgobSqTB Ybv1coWLByKDGze6W8pRGy XDG4uFEoAQUbh2SfwJdmRq Ahc6blCsSXtABkMRVvqeLd yyDhirIwW9IljL3yjyMhmY XotIQ6vSBfASmzkFLwHSDh nmNyp18gALWuSFEdtMX1UK EuMSBjbSkuIFRoZSBkaXNj m5mjtqL8lN3uIHZ0xJEzEP SoiG1mrQ8gEXPyDQH7lYC6 tPPgcJ8udcKuxP5wQPnwZD OjlKXelpTmqhHdMxA3zLAv b7goidDcjeSdxdK0QSRcJH Xfp9S9uKLvWyOKSWVvMKDa rtTfaHs1RDAoHKS5rG2mbh RbdrFxm6TdmQi9aOLfAGAo fILyUNScP7WzE4ouaQYznW quzxfvHDXpGn7xgI84ymii QjEsIGFydGljdWxhciBzdX MvCNRmDcAENqpne0yaqaBp apJkt44ftVE1aFZweDOpLC QqdTQyY9exNyMHOm8YSEpx K6Icq9Gyn8LrzRnbhfLcFq VnncWfenHfqR4oTINku55u UBkmzHWaVREgHQOyi1ltsF FsLlxwYXJccGFyXHBhciBU mDehFMBox1Vgz2JtCHKbO4 HlpwAyROaiNZO3wtVyGVK2 cywgZWFjaCBsYWJlbGVkIH vxlShgJRPxbUCrf8RmdEun IHBhdGllbnQgaWRlbnRpZm brkoVqDR4bOTZjQELhpXWt dK1fdpVmh7BnQ2QaHE2XR8 L3o3phdFbws6ByxHGnLG29 MVWryVIqBID5LW5kvRrxVD J9 MICROSCOPIC DESCRIPTION n6ukeRCiWEKpyIK7ImEfYZ (test code = 3371) Ulc7zlc1SydZMntFEcDFlq lNPvisMwpj84kOZ3gE49TJ 9fYGJjEaJ4SIDncxC1Dkq0 RDDsKLPiyWNqM673v8vsq5 rxvdGxmXS7tIcgXZJtezer AmH5FZonCUJtqsjkYJl8ZA ztAHAneHG1ZILedZCfW9Fq PVAyOK6wmrf6YBZ5UHqpUR BmXoA6YNGyqHHlOGJulHjo BAeli878HTR9PaUeFAXrpy RkvYjmcS6fVdDyNUZVGlLD aGUgbGVmdCBsYXRlcmFsIG QmuOTnmkFzKK30UVWqNbWv XZIoPU26SZOhe3wxBO1uO2 Yxr9xgGMZqOSUorJFaqqUc kxAgnV8jnWHgrOV1yC9zEQ utps5ehvujIuKkcBSsm1Rh DXMnl6W8FIxlIR8yFYI2hK VuZGluZyBpbnRvIHNrZWxl yGKzYU79l1OtPHAnnmRzKV HjdM1sHVE5oQHpoGEeICXw kyYwgXL5kR8jKJactFcwdV xhwn9csY3dq5zzW7CtUPF8 vLLhIAZnmJOvvgZnn72oQQ 2cIPGoCXSnhlomLDLyCp0k K4WqsYuiocNcv7qffoCiYD Vtt8IcVnXch9hhDFWwRIWf c5K5ACYwp6V0GZJ4aQCaPW DgMNApxNqezgvzMFJ6aUAp t4X4BS4ykYFotHBsli5vvD FyfQ== [facility] [id number] 08:44:54Surgical Pathology Report Case: [id number] Authorizing Provider: Lashawn Watts Collected: 01/02/2022 08:03 PM MD Adam Ordering Location: [address] Med/Surg Received: 01/06/2022 07:55 AM Pathologist: Virgil Gaspar MD Specimens: A) - Soft Tissue, Debridement, LEFT LEG LATERAL COMPARTMENT B) - Toe, Left, SECOND TOE LEFT FOOT A. SOFT TISSUE, LEFT LEG LATERAL COMPARTMENT, DEBRIDEMENT: - SOFT TISSUE WITH NECROSIS AND MARKED INFLAMMATION, SEE MICROSCOPICB. SECOND TOE, LEFT, AMPUTATION: - PROXIMAL MARGIN, NEGATIVE FOR ACUTE OSTEOMYELITIS - SKIN AND SOFT TISSUE MARGIN HISTOLOGICALLY VIABLE - ACUTE OSTEOMYELITIS - SKIN AND SOFT TISSUE WITH GANGRENOUS NECROSIS Signing Pathologis t Direct Phone Line: [phone] signed by Virgil Gaspar MD on 01/08/2022 at 8:44 [id number], [id number], [id number] A. Soft Tissue, Debridement.Received in formalin labeled "soft tissue, debridement" is an irregular portion of soft tissue (18 cm x 9 cm x 4.5 cm). The tissue is comprised of thick membranous tissue. One surface is brown-yeung and smooth. The opposite surface is yeung and brown with adherent brown soft tissue. Attached to the thickened membranous tissue is aportion of red-brown tissue with a mottled appearance. Apartment Community Manager sections are submitted in A1-A5.B. Toe, Left.Received in formalin labeled "toe left" is a disarticulated toe (5.7 cm in length x upto 1.5 cm in diameter). The superior surface of the toe is red-brown and mottled, with sloughing skin. There is an intact toenail at the distal portion (0.8 cm x 1.1 cm). The discoloration extends to underneath the toenail. The remainder of the skin is yeung and mottled. Apartment Community Manager sections are submitted after decalcification, as follows: B1, articular surface; B2, skin and soft tissue at margin; B3-B4, cross section of entire toe from distal to proximal.This case was received in two parts, each labeled with at least two patient identifiers and the specimen source. ND/Deysi. The left lateral compartment debridement shows necrosis and extensive inflammation involving fibrous tissue, and extending into skeletal muscle and adipose tissue. Correlation with microbiological studies is recommended.B. Sections show necrotic skin and soft tissue with underlying acute osteomyelitis.CBC W/PLT COUNT & AUTO [id number] 06:17:01 Test Item Value Reference Range Interpretation [...] code = 1+ few 964) COMPREHENSIVE METABOLIC [id number] 06:12:56 Test Item Value Reference Range Interpretation [...] S NOT APPLICABLE FOR DIALYSIS PATIEN TS. Hotel Reservation Agent ID - [id number] ID - oery53Gakspwdj ID - hqoz89Trmnupgo ID - aenl60Ogboepho ID - btqy67Jwdrqzbe ID - ykqh59Lshobvxy ID - ockk16Qmeqbsqc ID - xqrf00Majxksex ID - hshk50Mjokgqja ID - jpms40Yzmoyfci ID - ukwz34Qnrrzign ID - thcj12Tiykmqpm ID - kdqz47Iuybnfns ID - yhxa52Zccgkpib ID - qpnu60Wahzckua ID - [id number] 06:01:02 Test Item Value Reference Range Interpretation Comments MAGNESIUM (BEKATE) (test code = 2.0 mg/dL 1.5-3.0 627) Hotel Reservation Agent ID - nknf27Rcjupzxz ID - wnzu75Wlmthtyq ID - wdcr16Mhfvnjel ID - znmp04 POCT-GLUCOSE [id number] 21:40:38 Test Item Value Reference Range Interpretation Comments POC-GLUCOSE METER 97 mg/dL 70-110 : TESTED A T [facility] 13[address] (PRIYA) (test code = [address]) [facility] 77 478: Hotel Reservation Agent/Techni yadi ID = [id number] for [place] Tayla arroyo RAD, CHEST, 1 VIEW, NON [id number] 16:04:00Reason for exam:->abnormal breath soundsShould this be performed at the bedside?->Yes [facility] 1955 Sex: MFINAL [...] Christianson Verified Date/Time: 01/07/2022 16:04:01 Reading Location: [facility] Reading Room Blood gas, [id number] 15:01:26 Test Item Value Reference Range Interpretation [...] 21 Lab Interpretation Abnormal (test code = 55059-8) [facility], [id number] 15:01:26 Test Item Value Reference Range Interpretation [...] 21 Lab Interpretation Abnormal (test code = 20328-3) [facility], [id number] 15:01:26 Test Item Value Reference Range Interpretation [...] 21 Lab Interpretation Abnormal (test code = 69180-4) [facility] gas, [id number] 15:01:26 Test Item Value Reference Range Interpretation [...] 21 Lab Interpretation Abnormal (test code = 94679-4) [facility], [id number] 15:01:26 Test Item Value Reference Range Interpretation [...] 21 Lab Interpretation Abnormal (test code = 92798-0) [facility], [id number] 15:01:26 Test Item Value Reference Range Interpretation [...] 1819) 21.0 CBC W/PLT COUNT & AUTO [id number] 07:42:56 Test Item Value Reference Range Interpretation [...] (test code Normal = 762) COMPREHENSIVE METABOLIC [id number] 07:05:25 Test Item Value Reference Range Interpretation [...] S NOT APPLICABLE FOR DIALYSIS PATIEN TS. Hotel Reservation Agent ID - LITOOperator ID - LITOOperator ID - LITOOperator ID - LITOOperator ID - LITOOperator ID - LITOOperator ID - LITOOperator ID - LITOOperator ID - LITOOperator ID - LITOOperator ID - LITOOperator ID - LITOOperator ID - LITOOperator ID - LITOOperator ID - LITOOperator ID - [id number] 07:03:09 Test Item Value Reference Range Interpretation Comments MAGNESIUM (BEAKER) 2.0 mg/dL 1.5-3.0 Specimen moderately (test code = 627) hemolyzed Hotel Reservation Agent ID - LITOOperator ID - LITOOperator ID [...] = 762) CBC W/PLT COUNT & AUTO [id number] 07:54:35 Test Item Value Reference Range Interpretation [...] (BEAKER) (test code = 413) BASIC METABOLIC [id number] 07:12:34 Test Item Value Reference Range Interpretation [...] S NOT APPLICABLE FOR DIALYSIS PATIEN TS. Hotel Reservation Agent ID - DSENSONOperator ID - DSENSONOperator ID - DSENSONOperator ID - DSENSONOperator ID - DSENSONOperator ID - DSENSONOperator ID - DSENSONOperator ID - DSENSONOperator ID - DSENSONOperator ID - DSENSONOperator ID - DSENSONOperator ID - DSENSONOperator ID - DSENSONPrepare Leuko-Red [id number] 23:54:00 Test Item Value Reference Range Interpretation Comments CROSSMATCH (test code = 2264) COMPATIBLE Unit ABO (test code = A Pos 2509768) UNIT NUMBER (test code = [id number] 934-0) Status (test code = 3410636) [facility] Blood Bank Product (test code RED BLOOD CELLS = 2263) PRODUCT CODE (test code = W2427B23 933-2) [facility]uk[facility] [id number] 23:54:00 Test Item Value Reference Range Interpretation Comments CROSSMATCH (test code = 2264) COMPATIBLE Unit ABO (test code = A Pos 4745192) UNIT NUMBER (test code = [id number] 934-0) Status (test code = 8565872) TX_TIMEINCHART Blood Bank Product (test code RED BLOOD CELLS = 2263) PRODUCT CODE (test code = W0767P23 933-2) [facility]uk[facility] [id number] 23:54:00 Test Item Value Reference Range Interpretation Comments CROSSMATCH (test code = 2264) COMPATIBLE Unit ABO (test code = A Pos 5053580) UNIT NUMBER (test code = [id number] 934-0) Status (test code = 7306042) TX_TIMEINCHART Blood Bank Product (test code RED BLOOD CELLS = 2263) PRODUCT CODE (test code = W7624I00 933-2) [facility]uk[facility]-Red [id number] 23:54:00 Test Item Value Reference Range Interpretation Comments CROSSMATCH (test code = 2264) COMPATIBLE Unit ABO (test code = A Pos 4849539) UNIT NUMBER (test code = [id number] 934-0) Status (test code = 3080990) [facility] Blood Bank Product (test code RED BLOOD CELLS = 2263) PRODUCT CODE (test code = M1203I73 933-2) [facility]uk[facility] [id number] 23:54:00 Test Item Value Reference Range Interpretation Comments CROSSMATCH (test code = 2264) COMPATIBLE Unit ABO (test code = A Pos 4472415) UNIT NUMBER (test code = [id number] 934-0) Status (test code = 2946876) TX_TIMEINCHART Blood Bank Product (test code RED BLOOD CELLS = 2263) PRODUCT CODE (test code = R3766W96 933-2) [facility] [id number] 23:54:00 Test Item Value Reference Range Interpretation Comments CROSSMATCH (test code = 2264) COMPATIBLE Unit ABO (test code = A Pos 0824567) UNIT NUMBER (test code = [id number] 934-0) Status (test code = 8389525) TX_TIMEINCHART Blood Bank Product (test code RED BLOOD CELLS = 2263) PRODUCT CODE (test code = D1727M13 933-2) [facility](MANUAL DIFFERENTIAL)2022-01-05 08:32:40 Test Item Value Reference [...] = 771) CBC W/PLT COUNT & AUTO [id number] 08:32:39 Test Item Value Reference Range Interpretation [...] (BEAKER) (test code = 413) COMPREHENSIVE METABOLIC [id number] 06:15:58 Test Item Value Reference Range Interpretation [...] S NOT APPLICABLE FOR DIALYSIS PATIEN TS. Hotel Reservation Agent ID - [id number] ID - VTFKJUVYU857Cansawft ID - SFKWLLIBA713Ontbsvik ID - SKONKGHXE858Cbptyiag ID - TJLQPELHW862Ytfwaohv ID - RCPRCPMEU256Atrgmgud ID - MYDZGOHWD147Hocnyxxg ID - NDHQTYAFM797Xrxkuece ID - UNMWMDVXB666Yxjyukiq ID - HUPJIARWT382Ouantdop ID - IKPBOXKBN586Somymkxx ID - PLSARMSZO011Cpnmqjts ID - GWTUXWWHZ612Tuwoyhfs ID - PALJJGSRV505Yfpbhkld ID - JUKGCKGOQ496Zoakbspt ID -TLLNKJNRO650CKKYJDLUO2601-83-05 06:14:15 Test Item Value Reference Range Interpretation Comments MAGNESIUM (BEAKER) (test code = 1.9 mg/dL 1.5-3.0 627) Hotel Reservation Agent ID - [id number] ID - CWGSCCXZI106Yegybytx ID - DHDXXXOXU761Yblmmlqr ID - ONFYFTAUC682NMGJEDYDKE COMPONENT [id number] 11:21:20 Test Item Value Reference Range Interpretation Comments C4 COMPLEMENT (BEAKER) (test code = 34 mg/dL 15-57 394) Hotel Reservation Agent ID - RUBENS MCOMPLEMENT COMPONENT [id number] 11:21:20 Test Item Value Reference Range Interpretation Comments C3 COMPLEMENT (BEAKER) (test code = 134 mg/dL 82-193 393) Hotel Reservation Agent ID - RUBENS MOsmolality, [id number] 11:18:29 Test Item Value Reference Range Interpretation Comments Osmolality, Ur (test code 218 See_Comment [ Automated message] = 5888-0) The system [employer] generated this result transmitted ref erence range: 50-1,200 mOsm/kg mOsm/kg . The reference range was not used to int erpret this result as normal/abnormal . Lab Interpretation (test Normal code = 59823-1) [facility] HospitalOsmolality, [id number] 11:18:29 Test Item Value Reference Range Interpretation Comments Osmolality, Ur (test code 218 See_Comment [ Automated message] = 2695-5) The system [employer] generated this result transmitted ref erence range: 50-1,200 mOsm/kg mOsm/kg . The reference range was not used to int erpret this result as normal/abnormal . Lab Interpretation (test Normal code = 45146-1) [facility] [id number] 11:18:29 Test Item Value Reference Range Interpretation Comments Osmolality, Ur (test code 218 See_Comment [ Automated message] = 2695-5) The system [employer] generated this result transmitted ref erence range: 50-1,200 mOsm/kg mOsm/kg . The reference range was not used to int erpret this result as normal/abnormal . Lab Interpretation (test Normal code = 84035-9) [facility] [id number] 11:18:29 Test Item Value Reference Range Interpretation Comments Osmolality, Ur (test code 218 See_Comment [ Automated message] = 2695-5) The system [employer] generated this result transmitted ref erence range: 50-1,200 mOsm/kg mOsm/kg . The reference range was not used to int erpret this result as normal/abnormal . Lab Interpretation (test Normal code = 16774-5) [facility], [id number] 11:18:29 Test Item Value Reference Range Interpretation Comments Osmolality, Ur (test code 218 See_Comment [ Automated message] = 2695-5) The system [employer] generated this result transmitted ref erence range: 50-1,200 mOsm/kg mOsm/kg . The reference range was not used to int erpret this result as normal/abnormal . Lab Interpretation (test Normal code = 38339-5) [facility], [id number] 11:18:29 Test Item Value Reference Range Interpretation Comments Osmolality, Ur (test code 218 See_Comment [ Automated message] = 2695-5) The system [employer] generated this result transmitted ref erence range: 50-1,200 mOsm/kg mOsm/kg . The reference range was not used to int erpret this result as normal/abnormal . Lab Interpretation (test Normal code = 15973-0) [facility] HospitalOSMOLALITY, [id number] 11:18:29 Test Item Value Reference Range Interpretation Comments OSMOLALITY URINE 218 mOsm/kg See_Comment [Automated message] (BEAKER) (test code = The sy stem which 614) generated this result transmitted ref erence range: 50-1,200 mOsm/kg. The reference range was not used to int erpret this result as normal/abnormal . COMPREHENSIVE METABOLIC [id number] 06:07:20 Test Item Value Reference Range Interpretation [...] S NOT APPLICABLE FOR DIALYSIS PATIEN TS. Hotel Reservation Agent ID - LITOOperator ID - LITOOperator ID - LITOOperator ID - LITOOperator ID - LITOOperator ID - LITOOperator ID - LITOOperator ID - LITOOperator ID - LITOOperator ID - LITOOperator ID - LITOOperator ID - LITOOperator ID - LITOOperator ID - LITOOperator ID - LITOOperator ID - [id number] 06:04:30 Test Item Value Reference Range Interpretation Comments MAGNESIUM (BEAKER) (test code = 1.9 mg/dL 1.5-3.0 627) Hotel Reservation Agent ID - LITOOperator ID - LITOOperator ID - LITOOperator ID - LITOCBC W/PLT COUNT & AUTO [id number] 05:43:16 Test Item Value Reference Range Interpretation [...] SARS-Co V-2 (test code = target nucleic 76196-8) acids are not detected in thi s [...] om SARS-CoV-2 in a nasopharyngeal swab specimen [facility] from individual s suspected of COVID-19 by [...] revoked sooner. Fact Sheet for Healthcare Providers: https://www.[employer]/Documents/Xp ert%20Xpress%20SAR S%20CoV-2/Fact%20S heets/302-3802%20S ARS-COV-2%20HEALTH CARE%20PROVIDERS%2 0FACT%20SHEET.pdf Fact Sheet for Healthcare Patients: https://www.[employer]/Documents/Xp ert%20Xpress%20SAR S%20CoV-2/Fact%20S heets/302-3801%20S ARS-COV-2%20PATIEN T%20FACT%20SHEET.p df Lab Interpretation Normal (test code = 18561-1) [facility]-03 21:46:00 Test Item Value Reference Interpretation Comments Range SARS-COV2/RT-PCR Negative Negative The SARS-Co V-2 (test code = target nucleic 29106-4) acids are not detected in thi s [...] revoked sooner. Fact Sheet for Healthcare Providers: https://www.[employer]/Documents/Xp ert%20Xpress%20SAR S%20CoV-2/Fact%20S heets/302-3802%20S ARS-COV-2%20HEALTH CARE%20PROVIDERS%2 0FACT%20SHEET.pdf Fact Sheet for Healthcare Patients: https://www.[employer]/Documents/Xp ert%20Xpress%20SAR S%20CoV-2/Fact%20S heets/302-3801%20S ARS-COV-2%20PATIEN T%20FACT%20SHEET.p df Lab Interpretation Normal (test code = 16391-3) [facility]omatic [facility]2022-01-03 21:46:00 Test Item Value Reference Interpretation Comments Range SARS-COV2/RT-PCR Negative Negative The SARS-Co V-2 (test code = target nucleic 85129-2) acids are not detected in thi s [...] revoked sooner. Fact Sheet for Healthcare Providers: https://www.[employer]/Documents/Xp ert%20Xpress%20SAR S%20CoV-2/Fact%20S heets/302-3802%20S ARS-COV-2%20HEALTH CARE%20PROVIDERS%2 0FACT%20SHEET.pdf Fact Sheet for Healthcare Patients: https://www.[employer]/Documents/Xp ert%20Xpress%20SAR S%20CoV-2/Fact%20S heets/302-3801%20S ARS-COV-2%20PATIEN T%20FACT%20SHEET.p df Lab Interpretation Normal (test code = 82573-8) [facility])2022-01-03 21:46:00 Test Item Value Reference Range Interpretation Comments SARS-COV2/RT-PCR Negative Negative The SARS-Co V-2 target (test code = nucleic acids a re not 9233887) detected in thi s specimen. Negative result [...] revoked sooner. Fact Sheet for Healthcare Providers: https://www.[employer]/Documents/Xpert%20Xpress%20SARS%20CoV-2/Fact%20Sheets/302-3802%57JULV-EAA-3%20 HEALTHCARE%20PROVIDERS%20FACT%20SHEET.pdf Fact Sheet for Healthcare Patients: https://www.[employer]/Documents/Xpert%20Xp ress%20SARS%20CoV-2/Fact%20Sheets/302-3801%80XVJI-MCD-6%20PATIENT%20FACT%20SHEET .pdfProtein, random [id number] 17:23:00 Test Item Value Reference Range Interpretation Comments Protein, Urine (test code 19 mg/dL 0-14 H = 2888-6) RAMON (test code = RAMON) Hotel Reservation Agent ID - ERINY Lab Interpretation (test Abnormal code = 24637-9) [facility] HospitalProtein, random [id number] 17:23:00 Test Item Value Reference Range Interpretation Comments Protein, Urine (test code 19 mg/dL 0-14 H = 2888-6) RAMON (test code = RAMON) Hotel Reservation Agent ID - ERINY Lab Interpretation (test Abnormal code = 00294-4) [facility] HospitalProtein, random [id number] 17:23:00 Test Item Value Reference Range Interpretation Comments Protein, Urine (test code 19 mg/dL 0-14 H = 2888-6) RAMON (test code = RAMON) Hotel Reservation Agent ID - ERINY Lab Interpretation (test Abnormal code = 31438-3) [facility] HospitalProtein, random [id number] 17:23:00 Test Item Value Reference Range Interpretation Comments Protein, Urine (test code 19 mg/dL 0-14 H = 2888-6) RAMON (test code = RAMON) Hotel Reservation Agent ID - ERINY Lab Interpretation (test Abnormal code = 88017-8) [facility] HospitalProtein, random [id number] 17:23:00 Test Item Value Reference Range Interpretation Comments Protein, Urine (test code 19 mg/dL 0-14 H = 2888-6) RAMON (test code = RAMON) Hotel Reservation Agent ID - ERINY Lab Interpretation (test Abnormal code = 54784-0) [facility] HospitalProtein, random [id number] 17:23:00 Test Item Value Reference Range Interpretation Comments Protein, Urine (test code 19 mg/dL 0-14 H = 2888-6) RAMON (test code = RAMON) Hotel Reservation Agent ID - ERINY Lab Interpretation (test Abnormal code = 36103-3) [facility] HospitalPROTEIN, RANDOM [id number] 17:23:00 Test Item Value Reference Range Interpretation Comments PROTEIN, URINE (BEAKER) (test code = 19 mg/dL 0-14 H 1569) Hotel Reservation Agent ID - Veronikaine, random [id number] 17:21:09 Test Item Value Reference Range Interpretation Comments Creatinine, Ur 32.6 mg/dL (test code = 2161-8) RAMON (test code = Reference Range: No RAMON) NormalsOperator ID - KADE [facility] HospitalCrewestbrook medical centerine, random [id number] 17:21:09 Test Item Value Reference Range Interpretation Comments Creatinine, Ur 32.6 mg/dL (test code = 2161-8) RAMON (test code = Reference Range: No RAMON) NormalsOperator ID Deshaun BRAUN [facility] HospitalCreatinine, random [id number] 17:21:09 Test Item Value Reference Range Interpretation Comments Creatinine, Ur 32.6 mg/dL (test code = 2161-8) RAMNO (test code = Reference Range: No RAMON) NormalsOperator ID Deshaun BRAUN [facility] HospitalCreatinine, random [id number] 17:21:09 Test Item Value Reference Range Interpretation Comments Creatinine, Ur 32.6 mg/dL (test code = 2161-8) RAMON (test code = Reference Range: No RAMON) NormalsOperator ZURDO BRAUN [facility] HospitalCreatinine, random [id number] 17:21:09 Test Item Value Reference Range Interpretation Comments Creatinine, Ur 32.6 mg/dL (test code = 2161-8) RAMON (test code = Reference Range: No RAMON) NormalsOperator ID - KADE [facility] HospitalCreatinine, random [id number] 17:21:09 Test Item Value Reference Range Interpretation Comments Creatinine, Ur 32.6 mg/dL (test code = 2161-8) RAMON (test code = Reference Range: No RAMON) NormalsOperator ZURDO BRAUN [facility] HospitalCREATININE, RANDOM [id number] 17:21:09 Test Item Value Reference Range Interpretation Comments CREATININE URINE (BEAKER) (test 32.6 mg/dL code = 375) Reference Range: No NormalsOperator ID - ERINYPROTHROMBIN TIME/[id number] 17:16:18 Test Item Value Reference Range Interpretation Comments PROTIME (BEAKER) 10.9 seconds 9.3-12.0 Final Infor mation (test code = 759) (Auto Outp ut) INR (BEAKER) (test 0.99 See_Comment Final Inf ormation code = 370) (Auto Output) [Automated mess age] The system [employer] generated this result transmitted ref erence range: <=5.90. The reference range was not used to int erpret this result as normal/abnormal . RECOMMENDED COUMADIN/WARFARIN INR THERAPY RANGESSTANDARD DOSE: 2.0 - 3.0 Includes: PROPHYLAXIS for venous thrombosis, systemic embolization; TREATMENT for venous thrombosis and/or pulmonary embolus.HIGH RISK: Target INR is 2.5-3.5 for patients with mechanical heart valves.Sodium, random [id number] 17:14:54 Test Item Value Reference Range Interpretation Comments Sodium Urine (test 38 meq/L code = 2955-3) RAMON (test code = Reference Range: No RAMON) NormalsOperator ID - [facility] random [id number] 17:14:54 Test Item Value Reference Range Interpretation Comments Sodium Urine (test 38 meq/L code = 2955-3) RAMON (test code = Reference Range: No RAMON) NormalsOperator ID - [facility] CenterODIUM, RANDOM [id number] 17:14:54 Test Item Value Reference Range Interpretation Comments SODIUM URINE (BEAKER) (test code = 38 meq/L 243) Reference Range: No NormalsOperator ID - ERINYPotassium, random [id number] 17:14:16 Test Item Value Reference Range Interpretation Comments Potassium Urine 8.2 meq/L (test code = 2828-2) RAMON (test code = Reference Range: No RAMON) NormalsOperator [facility] - [facility] [id number] 17:14:16 Test Item Value Reference Range Interpretation Comments Potassium Urine 8.2 meq/L (test code = 2828-2) RAMON (test code = Reference Range: No RAMON) NormalsOperator ID - ERINY [facility] HospitalPOTASSIUM, RANDOM [id number] 17:14:16 Test Item Value Reference Range Interpretation Comments POTASSIUM URINE (BEAKER) (test code 8.2 meq/L = 195) Reference Range: No NormalsOperator ID - KADE(MANUAL DIFFERENTIAL)2022-01-03 07:28:53 Test Item Value Reference Range [...] = 762) CBC W/PLT COUNT & AUTO [id number] 07:28:52 Test Item Value Reference Range Interpretation [...] (BEAKER) (test code = 413) COMPREHENSIVE METABOLIC [id number] 07:24:44 Test Item Value Reference Range Interpretation [...] S NOT APPLICABLE FOR DIALYSIS PATIEN TS. Hotel Reservation Agent ID - LITOOperator ID - LITOOperator ID - LITOOperator ID - LITOOperator ID - LITOOperator ID - LITOOperator ID - LITOOperator ID - LITOOperator ID - LITOOperator ID - LITOOperator ID - LITOOperator ID - LITOOperator ID - LITOOperator ID - LITOOperator ID - LITOOperator ID - MHXCAPEZXDACZEUU9647-43-41 07:24:07 Test Item Value Reference Range Interpretation Comments MAGNESIUM (BEAKER) (test code = 1.9 mg/dL 1.5-3.0 627) Hotel Reservation Agent ID - LITOOperator ID - LITOOperator ID - LITOOperator ID - DSENSONAPTT 2022-01-03 06:59:56 Test Item Value Reference Range Interpretation Comments PARTIAL THROMBOPLASTIN 29.8 seconds 23.0-35.0 Final Information TIME ([facility] (test (Auto Ou tput) code = 760) POC-Glucose [id number] 06:47:54 Test Item Value Reference Range Interpretation Comments POC-Glucose Meter (test 131 mg/dL 70-110 H : TE STED AT [facility] code = 1538) [address] [facility] [address]: Hotel Reservation Agent/Techni yadi ID = [id number] for Tayla Fernandez Lab Interpretation (test Abnormal code = 38592-8) [facility] HospitalPOCT-GLUCOSE [id number] 06:47:54 Test Item Value Reference Range Interpretation Comments POC-GLUCOSE METER 131 mg/dL 70-110 H : TESTED A T [facility] 1317 (BEAKER) (test code [facility], = 1538) [facility] 77 478: Hotel Reservation Agent/Techni yadi ID = [id number] for Tayla Sanders BLOOD [id number] 01:00:51 Test Item Value Reference Range Interpretation Comments CULTURE (BEAKER) (test No growth in 5 days code = 1095) BLOOD [id number] 01:00:50 Test Item Value Reference Range Interpretation Comments CULTURE (BEAKER) (test No growth in 5 days code = 1095) HEMOGLOBIN AND [id number] 18:18:43 Test Item Value Reference Range Interpretation Comments HEMOGLOBIN (BEAKER) (test code = 6.9 GM/DL 13.0-16.8 L 410) HEMATOCRIT (BEAKER) (test code = 21.7 % 36.0-50.0 L 411) COMPREHENSIVE METABOLIC [id number] 15:28:54 Test Item Value Reference Range Interpretation [...] S NOT APPLICABLE FOR DIALYSIS PATIEN TS. Hotel Reservation Agent ID - [id number] ID - [id number] ID - [id number] ID - [id number] ID - [id number] ID - [id number] ID - [id number] ID - [id number] ID - [id number] ID - [id number] ID - [id number] ID - [id number] ID - [id number] ID - [id number] ID - [id number] ID - [id number] ID - [id number] ID - [id number] ID - [id number] 2022-01-02 12:55:51 Test Item Value Reference Range Interpretation Comments PARTIAL THROMBOPLASTIN 76.3 seconds 23.0-35.0 H Final Information TIME (BEAKER) (test (Auto Ou tput) code = 760) MR, EXTREMITY, LOWER, JOINT, WITHOUT CONTRAST, [id number] 10:49:00Please evaluate for osteomyelitis of the second toe with possible gangrene Unlisted Reason for Exam - Click Yes and Enter Reason Below->No osteomyelitis second toe Does the patient have an implantedelectronic device?->No [facility] : 1955 Sex: MFINAL REPORT MRI of [...] subcutaneous a nd muscle edema. Signed: Andrea Castroeport Verified Date/Time: 01/02/2022 10:49:14 Reading Location:[facility] [id number] Ortho Consult Reading Room [id number] 04:37:09 Test Item Value Reference Range Interpretation Comments PARTIAL THROMBOPLASTIN 60.7 seconds 23.0-35.0 H Final Information TIME (BEAKER) (test (Auto Ou tput) code = 760) [id number] 20:10:33 Test Item Value Reference Range Interpretation Comments PARTIAL THROMBOPLASTIN 39.9 seconds 23.0-35.0 H Final Information TIME (BEAKER) (test (Auto Ou tput) code = 760) [id number] 10:29:50 Test Item Value Reference Range Interpretation Comments PARTIAL THROMBOPLASTIN 47.2 seconds 23.0-35.0 H Final Information TIME (BEAKER) (test (Auto Ou tput) code = 760) CBC W/PLT COUNT & AUTO [id number] 05:24:24 Test Item Value Reference Range Interpretation [...] (BEAKER) (test code = 2801) COMPREHENSIVE METABOLIC [id number] 05:18:05 Test Item Value Reference Range Interpretation [...] S NOT APPLICABLE FOR DIALYSIS PATIEN TS. Hotel Reservation Agent ID - LITOOperator ID - LITOOperator ID - LITOOperator ID - LITOOperator ID - LITOOperator ID - LITOOperator ID - LITOOperator ID - LITOOperator ID - LITOOperator ID - LITOOperator ID - LITOOperator ID - LITOOperator ID - LITOOperator ID - LITOOperator ID - LITOOperator ID - LITOOperator ID - L ITOOperator ID - LITOOperator ID - LITOMR, BRAIN, WITHOUT [id number] 20:16:00Unlisted Reason for Exam - Click Yes and Enter Reason Below->No [facility] : 1955 Sex: MFINAL [...] Signed: Francine Barber MDReport Verified Date/Time: 0:16:55 [id number] 10:45:30 Test Item Value Reference Range Interpretation Comments PREALBUMIN (BEAKER) (test code = 586) 8 mg/dL 14-45 L Hotel Reservation Agent ID - [id number] 09:25:29 Test Item Value Reference Range Interpretation Comments PARTIAL THROMBOPLASTIN 55.2 seconds 23.0-35.0 H Final Information TIME (BEAKER) (test (Auto Ou tput) code = 760) COMPREHENSIVE METABOLIC [id number] 05:20:59 Test Item Value Reference Range Interpretation [...] S NOT APPLICABLE FOR DIALYSIS PATIEN TS. Hotel Reservation Agent ID - ERINYOperator ID - ERINYOperator ID - ERINYOperator ID - ERINYOperator ID - ERINYOperator ID - ERINYOperator ID - ERINYOperator ID - ERINYOperator ID - ERINYOperator ID - ERINYOperator ID- ERINYOperator ID - ERINYOperator ID - ERINYOperator ID - ERINYOperator ID - ERINYOperator ID - LUIZ [id number] 05:13:26 Test Item Value Reference Range Interpretation Comments MAGNESIUM (BEAKER) (test code = 2.1 mg/dL 1.5-3.0 627) Hotel Reservation Agent ID - ERINYOperator ID - ERINYOperator ID - ERINYOperator ID - ERINYCBC W/PLT COUNT & AUTO [id number] 04:48:12 Test Item Value Reference Range Interpretation [...] H PERCENT (BEAKER) (test code = 2801) [id number] 01:51:26 Test Item Value Reference Range Interpretation Comments PARTIAL THROMBOPLASTIN 52.1 seconds 23.0-35.0 H Final Information TIME (BEAKER) (test (Auto Ou tput) code = 760) C-REACTIVE [id number] 16:04:12 Test Item Value Reference Range Interpretation Comments C-REACTIVE PROTEIN (BEAKER) (test 19.67 mg/dL 0.00-0.50 H code = 676) Hotel Reservation Agent ID - [id number] 15:54:19 Test Item Value Reference Range Interpretation Comments PARTIAL THROMBOPLASTIN 48.4 seconds 23.0-35.0 H Final Information TIME (PRIYA) (test (Auto Ou tput) code = 760) ARTERIAL DOPPLER LEG, [id number] 15:47:00Reason for exam:->[facility] : 1955 Sex: MFINAL [...] Christiansonort Verified Date/Time: 12/30/2021 15:47:00 Reading Location: [facility] Radiology Reading Room RAD, FOOT, MIN 3 VIEWS, LEFT 2021-12-30 11:11:00Reason for exam:->woundsShould this be performed at the bedside?->[facility] : 1955 Sex: MFINAL [...] Christiansonort Verified Date/Time: 12/30/2021 11:11:03 Reading Location: [facility] Radiology Reading Room RAD, ANKLE, MIN 3 VIEWS, [id number] 11:11:00Reason for exam:- >woundsShould this be performed at the bedside?->Yes [facility] : 1955 Sex: MFINAL [...] Christiansoneport Verified Date/Time: 12/30/2021 11:11:03 Reading Location: [facility] Radiology Reading Room RAD, LEG, [id number] 11:11:00Reason for exam:->woundsShould this be performed at the bedside?->Yes [facility] : 1955 Sex: MFINAL [...] distal lower extremity. 2. Atherosclerosis. Signed: [facility] Verified Date/Time: 12/30/2021 11:11:03 Reading Location: [facility] Radiology Reading Room 2D Echo W/Doppler(CW/PW/Color)2021-12-30 07:55:56Ejection FractionSLEH ECHO [facility]2D Echo W/Doppler(CW/PW/Color)2021-12-30 07:55:56Ejection FractionSLE ECHO [facility]ARTLAB [facility] Echo W/Doppler(CW/PW/Color) 2021-12-30 07:55:56[facility]CW/PW/Color[facility]2021-12-30 07:55:56[facility] W/Doppler(CW/PW/Color)2021-12-30 07:55:56[facility] W/Doppler(CW/PW/Color) 2021-12-30 07:55:56Ejection FractionSLEH [facility]CHO [facility] Echo W/Doppler(CW/PW/Color)2021-12-30 07:55:56Ejection FractionSLEH ECHO [facility] Echo W/Doppler(CW/PW/Color)2021-12-30 07:55:56Ejection FractionSLEH ECHO [facility] Echo W/Doppler(CW/PW/Color) 2021-12-30 07:55:56Ejection FractionSLEH ECHO [facility] Echo W/Doppler(CW/PW/Color)2021-12-30 07:55:56Ejection FractionSLE ECHO HEARTLAB [facility] COMPREHENSIVE METABOLIC [id number] 07:02:16 Test Item Value Reference Range Interpretation [...] S NOT APPLICABLE FOR DIALYSIS PATIEN TS. Hotel Reservation Agent ID - DSENSONOperator ID - DSENSONOperator ID - DSENSONOperator ID - DSENSONOperator ID - DSENSONOperator ID - DSENSONOperator ID - DSENSONOperator ID - DSENSONOperator ID - DSENSONOperator ID - DSENSONOperator ID - DSENSONOperator ID - DSENSONOperator ID - DSENSONOperator ID - DSENSONOperatorID - DSENSONOperator ID - [id number] 07:00:58 Test Item Value Reference Range Interpretation Comments MAGNESIUM (BEAKER) (test code = 2.1 mg/dL 1.5-3.0 627) Hotel Reservation Agent ID - DSENSONOperator ID - DSENSONOperator ID - DSENSONOperator ID - [id number] 06:51:08 Test Item Value Reference Range Interpretation Comments PARTIAL THROMBOPLASTIN 46.1 seconds 23.0-35.0 H Final Information TIME (BEAKER) (test (Auto Ou tput) code = 760) CBC W/PLT COUNT & AUTO [id number] 06:50:59 Test Item Value Reference Range Interpretation [...] H PERCENT (BEAKER) (test code = 2801) [id number] 22:19:04 Test Item Value Reference Range Interpretation Comments PARTIAL THROMBOPLASTIN 45.3 seconds 23.0-35.0 H Final Information TIME (BEAKER) (test (Auto Ou tput) code = 760) [id number] 14:50:42 Test Item Value Reference Range Interpretation Comments PARTIAL THROMBOPLASTIN 59.2 seconds 23.0-35.0 H Final Information TIME (BEAKER) (test (Auto Ou tput) code = 760) TROPONIN [id number] 06:13:12 Test Item Value Reference Range Interpretation [...] failure, acidosis, acute neurological disease, and persistent tachyarrhythmia.Hotel Reservation Agent ID - [id number] METABOLIC [id number] 06:07:11 Test Item Value Reference Range Interpretation [...] S NOT APPLICABLE FOR DIALYSIS PATIEN TS. Hotel Reservation Agent ID - [id number] ID - [id number] ID - [id number] ID - [id number] ID - HOOSXXOQN420Mirxiegi ID - ARUOREDVS419Fdjtaxrf ID - SZISUISNZ667Fdpsaqhl ID - MQKOUHOUS942Ucnnfnaa ID - YNJVKQYRM568Cmtpkpqn ID - [id number] ID - [id number] ID - XPQKVUUNC569Qeinusdy ID - NGQTLVRZX315Zrdiwqtk ID - AUQCDIOGT473Yttbuzgn ID - WUTSEVPSP567Vhpbzlmw ID -[id number] 06:06:28 Test Item Value Reference Range Interpretation Comments MAGNESIUM (BEAKER) (test code = 2.0 mg/dL 1.5-3.0 627) Hotel Reservation Agent ID - [id number] ID - [id number] ID - ONPUQGOZQ819Vvivmcmu ID - [id number] 06:06:28 Test Item Value Reference Range Interpretation Comments PARTIAL THROMBOPLASTIN 40.7 seconds 23.0-35.0 H Final Information TIME (BEAKER) (test (Auto Ou tput) code = 760) CBC W/PLT COUNT & AUTO [id number] 05:51:43 Test Item Value Reference Range Interpretation [...] = 2801) RAD, CHEST, 1 VIEW, NON [id number] 01:45:00Reason for exam:- >PNEUMONIAShould this be performed at the bedside?->Yes [facility] : 1955 Sex: MFINAL REPORT EXAM: Chest one view COMPARISON: None available CLINICAL HISTORY: Pneumonia FINDINGS: Discoid opacity is noted in the right midlung which may represent subsegmental atelectasis. There is no evidence of pleural effusion or pneumothorax. The cardiac size is within normal limits. The regional osseous structures are unremarkable. Signed: Soledad Sharif [facility] Verified Date/ Time: 12/29/2021 01:45:05 IANO [id number] 22:21:09 Test Item Value Reference Range Interpretation [...] failure, acidosis, acute neurological disease, and persistent tachyarrhythmia.Hotel Reservation Agent ID - [facility]IN[facility] DOTHANREHENSIVE METABOLIC [id number] 22:16:48 Test Item Value Reference Range Interpretation [...] S NOT APPLICABLE FOR DIALYSIS PATIEN TS. Hotel Reservation Agent ID - ERINYOperator ID - ERINYOperator ID - ERINYOperator ID - ERINYOperator ID - ERINYOperator ID - ERINYOperator ID - ERINYOperator ID - ERINYOperator ID - ERINYOperator ID - ERINYOperator ID- ERINYOperator ID - ERINYOperator ID - ERINYOperator ID - ERINYOperator ID - ERINYOperator ID - LUIZ [id number] 22:14:52 Test Item Value Reference Range Interpretation Comments MAGNESIUM (BEAKER) (test code = 2.0 mg/dL 1.5-3.0 627) Hotel Reservation Agent ID - ERINYOperator ID - ERINYOperator ID - ERINYOperator ID - ERINY LIPID [id number] 22:14:12 Test Item Value Reference Range Interpretation Comments TRIGLYCERIDES (BEAKER) (test code = 147 mg/dL 540) CHOLESTEROL (BEAKER) (test code = 142 mg/dL 631) HDL CHOLESTEROL (BEAKER) (test code 50 mg/dL = 976) LDL CHOLESTEROL CALCULATED (BEAKER) 63 mg/dL (test code = 633) Triglyceride Reference Range: Low Risk <150 Borderline 150-199 High Risk 200-499 Very High Risk >=500Cholesterol Reference Range: Low Risk <200 Borderline 200-239 High Risk >240HDL Cholesterol Reference Range: Low Risk >=60 High Risk <40LDL Cholesterol Reference Range: Optimal <100 Near Optimal 100-129 Borderline 130-159 High 160-189 Very High >=190 Hotel Reservation Agent ID - ERINYOperator ID - ERINYOperator ID - ERINYUrinalysis w/ [id number] 22:12:25 Test Item Value Reference Range Interpretation Comments Color, UA (test code = Yellow 5778-6) Clarity, UA (test code = Clear 5767-9) Specific [place], UA <=1.005 1.001-1.035 (test code = 5811-5) pH, UA (test code = 6.0 5.0-8.0 5803-2) Protein, UA (test code = 30 mg/dL Negative A 04379-5) Glucose, UA (test code = Negative Negative 365) Ketones, UA (test code = Negative Negative 2514-8) Bilirubin, UA (test code Negative Negative = 71838-0) Blood, UA (test code = Small Negative A 58061-8) Nitrite, UA (test code = Negative Negative 5802-4) Leukocytes, UA (test Negative Negative code = 5799-2) Urobilinogen, UA (test 4.0 mg/dL 0.2-1.0 H code = 54386-6) Bacteria, UA (test code None Seen = 85003-4) RBC, UA (test code = <5 See_Comment [Autom ated message] 799-7) The system [employer] generated this result transmit nate reference range : /HPF. The refer ence range was not u sed to interpret th is result as normal/abnormal . WBC, UA (test code = None Seen See_Comment [Autom ated message] 35431-9) The system [employer] generated this result transmit nate reference range : /HPF. The refer ence range was not u sed to interpret th is result as normal/abnormal . SQUAMOUS EPITHELIAL <5 See_Comment [Automa nate message] (test code = 81053-0) The sy stem which generated this result transmit nate reference range : /HPF. The refer ence range was not u sed to interpret th is result as normal/abnormal . Specimen Source (test code = 2795) Lab Interpretation (test Abnormal code = 67248-6) [facility] [id number] 22:12:25 Test Item Value Reference Range Interpretation Comments Color, UA (test code = Yellow 5778-6) Clarity, UA (test code = Clear 5767-9) Specific [place], UA <=1.005 1.001-1.035 (test code = 5811-5) pH, UA (test code = 6.0 5.0-8.0 5803-2) Protein, UA (test code = 30 mg/dL Negative A 55585-4) Glucose, UA (test code = Negative Negative 365) Ketones, UA (test code = Negative Negative 2514-8) Bilirubin, UA (test code Negative Negative = 09610-8) Blood, UA (test code = Small Negative A 49046-7) Nitrite, UA (test code = Negative Negative 5802-4) Leukocytes, UA (test Negative Negative code = 5799-2) Urobilinogen, UA (test 4.0 mg/dL 0.2-1.0 H code = 44487-7) Bacteria, UA (test code None Seen = 76770-6) RBC, UA (test code = <5 See_Comment [Autom ated message] 799-7) The system [employer] generated this result transmit nate reference range : /HPF. The refer ence range was not u sed to interpret th is result as normal/abnormal . WBC, UA (test code = None Seen See_Comment [Autom ated message] 13302-0) The system [employer] generated this result transmit nate reference range : /HPF. The refer ence range was not u sed to interpret th is result as normal/abnormal . SQUAMOUS EPITHELIAL <5 See_Comment [Automa nate message] (test code = 61318-0) The sy stem which generated this result transmit nate reference range : /HPF. The refer ence range was not u sed to interpret th is result as normal/abnormal . Specimen Source (test code = 2795) Lab Interpretation (test Abnormal code = 54743-2) [facility]/ [id number] 22:12:25 Test Item Value Reference Range Interpretation Comments Color, UA (test code = Yellow 5778-6) Clarity, UA (test code = Clear 5767-9) Specific [place], UA <=1.005 1.001-1.035 (test code = 5811-5) pH, UA (test code = 6.0 5.0-8.0 5803-2) Protein, UA (test code = 30 mg/dL Negative A 93561-2) Glucose, UA (test code = Negative Negative 365) Ketones, UA (test code = Negative Negative 2514-8) Bilirubin, UA (test code Negative Negative = 17862-4) Blood, UA (test code = Small Negative A 70039-3) Nitrite, UA (test code = Negative Negative 5802-4) Leukocytes, UA (test Negative Negative code = 5799-2) Urobilinogen, UA (test 4.0 mg/dL 0.2-1.0 H code = 40326-3) Bacteria, UA (test code None Seen = 60015-7) RBC, UA (test code = <5 See_Comment [Autom ated message] 799-7) The system [employer] generated this result transmit nate reference range : /HPF. The refer ence range was not u sed to interpret th is result as normal/abnormal . WBC, UA (test code = None Seen See_Comment [Autom ated message] 10913-6) The system [employer] generated this result transmit nate reference range : /HPF. The refer ence range was not u sed to interpret th is result as normal/abnormal . SQUAMOUS EPITHELIAL <5 See_Comment [Automa nate message] (test code = 22247-8) The sy stem which generated this result transmit nate reference range : /HPF. The refer ence range was not u sed to interpret th is result as normal/abnormal . Specimen Source (test code = 2795) Lab Interpretation (test Abnormal code = 67231-1) [facility]/ [id number] 22:12:25 Test Item Value Reference Range Interpretation Comments Color, UA (test code = Yellow 5778-6) Clarity, UA (test code = Clear 5767-9) Specific [place], UA <=1.005 1.001-1.035 (test code = 5811-5) pH, UA (test code = 6.0 5.0-8.0 5803-2) Protein, UA (test code = 30 mg/dL Negative A 52073-2) Glucose, UA (test code = Negative Negative 365) Ketones, UA (test code = Negative Negative 2514-8) Bilirubin, UA (test code Negative Negative = 67917-2) Blood, UA (test code = Small Negative A 23497-0) Nitrite, UA (test code = Negative Negative 5802-4) Leukocytes, UA (test Negative Negative code = 5799-2) Urobilinogen, UA (test 4.0 mg/dL 0.2-1.0 H code = 03015-6) Bacteria, UA (test code None Seen = 46051-9) RBC, UA (test code = <5 See_Comment [Autom ated message] 799-7) The system [employer] generated this result transmit nate reference range : /HPF. The refer ence range was not u sed to interpret th is result as normal/abnormal . WBC, UA (test code = None Seen See_Comment [Autom ated message] 06843-4) The system [employer] generated this result transmit nate reference range : /HPF. The refer ence range was not u sed to interpret th is result as normal/abnormal . SQUAMOUS EPITHELIAL <5 See_Comment [Automa nate message] (test code = 37855-6) The sy stem which generated this result transmit nate reference range : /HPF. The refer ence range was not u sed to interpret th is result as normal/abnormal . Specimen Source (test code = 2795) Lab Interpretation (test Abnormal code = 59267-4) [facility]/ [id number] 22:12:25 Test Item Value Reference Range Interpretation Comments Color, UA (test code = Yellow 5778-6) Clarity, UA (test code = Clear 5767-9) Specific [place], UA <=1.005 1.001-1.035 (test code = 5811-5) pH, UA (test code = 6.0 5.0-8.0 5803-2) Protein, UA (test code = 30 mg/dL Negative A 24016-5) Glucose, UA (test code = Negative Negative 365) Ketones, UA (test code = Negative Negative 2514-8) Bilirubin, UA (test code Negative Negative = 74799-5) Blood, UA (test code = Small Negative A 96092-7) Nitrite, UA (test code = Negative Negative 5802-4) Leukocytes, UA (test Negative Negative code = 5799-2) Urobilinogen, UA (test 4.0 mg/dL 0.2-1.0 H code = 59951-0) Bacteria, UA (test code None Seen = 07502-7) RBC, UA (test code = <5 See_Comment [Autom ated message] 799-7) The system [employer] generated this result transmit nate reference range : /HPF. The refer ence range was not u sed to interpret th is result as normal/abnormal . WBC, UA (test code = None Seen See_Comment [Autom ated message] 80812-1) The system [employer] generated this result transmit nate reference range : /HPF. The refer ence range was not u sed to interpret th is result as normal/abnormal . SQUAMOUS EPITHELIAL <5 See_Comment [Automa nate message] (test code = 21156-9) The sy stem which generated this result transmit nate reference range : /HPF. The refer ence range was not u sed to interpret th is result as normal/abnormal . Specimen Source (test code = 2795) Lab Interpretation (test Abnormal code = 98401-2) [facility]/ [id number] 22:12:25 Test Item Value Reference Range Interpretation Comments Color, UA (test code = Yellow 5778-6) Clarity, UA (test code = Clear 5767-9) Specific [place], UA <=1.005 1.001-1.035 (test code = 5811-5) pH, UA (test code = 6.0 5.0-8.0 5803-2) Protein, UA (test code = 30 mg/dL Negative A 33506-0) Glucose, UA (test code = Negative Negative 365) Ketones, UA (test code = Negative Negative 2514-8) Bilirubin, UA (test code Negative Negative = 26620-9) Blood, UA (test code = Small Negative A 66885-0) Nitrite, UA (test code = Negative Negative 5802-4) Leukocytes, UA (test Negative Negative code = 5799-2) Urobilinogen, UA (test 4.0 mg/dL 0.2-1.0 H code = 59929-6) Bacteria, UA (test code None Seen = 41679-1) RBC, UA (test code = <5 See_Comment [Autom ated message] 799-7) The system [employer] generated this result transmit nate reference range : /HPF. The refer ence range was not u sed to interpret th is result as normal/abnormal . WBC, UA (test code = None Seen See_Comment [Autom ated message] 06425-7) The system [employer] generated this result transmit nate reference range : /HPF. The refer ence range was not u sed to interpret th is result as normal/abnormal . SQUAMOUS EPITHELIAL <5 See_Comment [Automa nate message] (test code = 57866-5) The sy stem which generated this result transmit nate reference range : /HPF. The refer ence range was not u sed to interpret th is result as normal/abnormal . Specimen Source (test code = 2795) Lab Interpretation (test Abnormal code = 27785-2) [facility] [id number] 22:12:25 Test Item Value Reference Range Interpretation Comments Color, UA (test code = Yellow 5778-6) Clarity, UA (test code = Clear 5767-9) Specific [place], UA <=1.005 1.001-1.035 (test code = 5811-5) pH, UA (test code = 6.0 5.0-8.0 5803-2) Protein, UA (test code = 30 mg/dL Negative A 34628-3) Glucose, UA (test code = Negative Negative 365) Ketones, UA (test code = Negative Negative 2514-8) Bilirubin, UA (test code Negative Negative = 36796-9) Blood, UA (test code = Small Negative A 74828-1) Nitrite, UA (test code = Negative Negative 5802-4) Leukocytes, UA (test Negative Negative code = 5799-2) Urobilinogen, UA (test 4.0 mg/dL 0.2-1.0 H code = 43476-9) Bacteria, UA (test code None Seen = 55898-0) RBC, UA (test code = <5 See_Comment [Autom ated message] 799-7) The system [employer] generated this result transmit nate reference range : /HPF. The refer ence range was not u sed to interpret th is result as normal/abnormal . WBC, UA (test code = None Seen See_Comment [Autom ated message] 49952-0) The system [employer] generated this result transmit nate reference range : /HPF. The refer ence range was not u sed to interpret th is result as normal/abnormal . SQUAMOUS EPITHELIAL <5 See_Comment [Automa nate message] (test code = 59500-5) The sy stem which generated this result transmit nate reference range : /HPF. The refer ence range was not u sed to interpret th is result as normal/abnormal . Specimen Source (test code = 2795) Lab Interpretation (test Abnormal code = 91695-9) [facility] [id number] 22:12:25 Test Item Value Reference Range Interpretation Comments Color, UA (test code = Yellow 5778-6) Clarity, UA (test code = Clear 5767-9) Specific [place], UA <=1.005 1.001-1.035 (test code = 5811-5) pH, UA (test code = 6.0 5.0-8.0 5803-2) Protein, UA (test code = 30 mg/dL Negative A 78475-7) Glucose, UA (test code = Negative Negative 365) Ketones, UA (test code = Negative Negative 2514-8) Bilirubin, UA (test code Negative Negative = 34400-4) Blood, UA (test code = Small Negative A 88163-2) Nitrite, UA (test code = Negative Negative 5802-4) Leukocytes, UA (test Negative Negative code = 5799-2) Urobilinogen, UA (test 4.0 mg/dL 0.2-1.0 H code = 31098-4) Bacteria, UA (test code None Seen = 99644-0) RBC, UA (test code = <5 See_Comment [Autom ated message] 799-7) The system [employer] generated this result transmit nate reference range : /HPF. The refer ence range was not u sed to interpret th is result as normal/abnormal . WBC, UA (test code = None Seen See_Comment [Autom ated message] 59987-3) The system [employer] generated this result transmit nate reference range : /HPF. The refer ence range was not u sed to interpret th is result as normal/abnormal . SQUAMOUS EPITHELIAL <5 See_Comment [Automa nate message] (test code = 69972-8) The sy stem which generated this result transmit nate reference range : /HPF. The refer ence range was not u sed to interpret th is result as normal/abnormal . Specimen Source (test code = 2795) Lab Interpretation (test Abnormal code = 31615-2) [facility] [id number] 22:12:25 Test Item Value Reference Range Interpretation Comments Color, UA (test code = Yellow 5778-6) Clarity, UA (test code = Clear 5767-9) Specific [place], UA <=1.005 1.001-1.035 (test code = 5811-5) pH, UA (test code = 6.0 5.0-8.0 5803-2) Protein, UA (test code = 30 mg/dL Negative A 76379-0) Glucose, UA (test code = Negative Negative 365) Ketones, UA (test code = Negative Negative 2514-8) Bilirubin, UA (test code Negative Negative = 56931-3) Blood, UA (test code = Small Negative A 19550-8) Nitrite, UA (test code = Negative Negative 5802-4) Leukocytes, UA (test Negative Negative code = 5799-2) Urobilinogen, UA (test 4.0 mg/dL 0.2-1.0 H code = 61085-0) Bacteria, UA (test code None Seen = 70343-0) RBC, UA (test code = <5 See_Comment [Autom ated message] 799-7) The system [employer] generated this result transmit nate reference range : /HPF. The refer ence range was not u sed to interpret th is result as normal/abnormal . WBC, UA (test code = None Seen See_Comment [Autom ated message] 90249-9) The system [employer] generated this result transmit nate reference range : /HPF. The refer ence range was not u sed to interpret th is result as normal/abnormal . SQUAMOUS EPITHELIAL <5 See_Comment [Automa nate message] (test code = 55995-9) The sy stem which generated this result transmit nate reference range : /HPF. The refer ence range was not u sed to interpret th is result as normal/abnormal . Specimen Source (test code = 2795) Lab Interpretation (test Abnormal code = 36140-2) [facility] [id number] 22:12:25 Test Item Value Reference Range Interpretation Comments Color, UA (test code = Yellow 5778-6) Clarity, UA (test code = Clear 5767-9) Specific [place], UA <=1.005 1.001-1.035 (test code = 5811-5) pH, UA (test code = 6.0 5.0-8.0 5803-2) Protein, UA (test code = 30 mg/dL Negative A 35671-3) Glucose, UA (test code = Negative Negative 365) Ketones, UA (test code = Negative Negative 2514-8) Bilirubin, UA (test code Negative Negative = 95651-4) Blood, UA (test code = Small Negative A 50481-9) Nitrite, UA (test code = Negative Negative 5802-4) Leukocytes, UA (test Negative Negative code = 5799-2) Urobilinogen, UA (test 4.0 mg/dL 0.2-1.0 H code = 32877-9) Bacteria, UA (test code None Seen = 02912-6) RBC, UA (test code = <5 See_Comment [Autom ated message] 799-7) The system [employer] generated this result transmit nate reference range : /HPF. The refer ence range was not u sed to interpret th is result as normal/abnormal . WBC, UA (test code = None Seen See_Comment [Autom ated message] 31067-8) The system [employer] generated this result transmit nate reference range : /HPF. The refer ence range was not u sed to interpret th is result as normal/abnormal . SQUAMOUS EPITHELIAL <5 See_Comment [Automa nate message] (test code = 17837-5) The sy stem which generated this result transmit ante reference range : /HPF. The refer ence range was not u sed to interpret th is result as normal/abnormal . Specimen Source (test code = 2795) Lab Interpretation (test Abnormal code = 87242-2) [facility]/ [id number] 22:12:25 Test Item Value Reference Range Interpretation [...] = 1663) SOURCE(BEAKER) (test code = 2795) [id number] 22:10:10 Test Item Value Reference Range Interpretation Comments PARTIAL THROMBOPLASTIN 27.6 seconds 23.0-35.0 Final Information TIME (BEAKER) (test (Auto Ou tput) code = 760) HEMOGLOBIN [id number] 22:05:08 Test Item Value Reference Range Interpretation Comments HEMOGLOBIN A1C (BEAKER) (test code = 4.5 % 4.3-6.1 368) Hotel Reservation Agent ID - ErinyCBC W/PLT COUNT & AUTO [id number] 22:02:15 Test Item Value Reference Range Interpretation [...]
[2022-07-14] MEDS ORDERED: NA CHLORIDE 0.9% 1,000 ML ONE ×2 (18:00→20:48)
[2022-07-14] MEDS ORDERED: ONDANSETRON 4 MG/2 ML VIAL ONE (18:00)
[2022-07-14] MEDS ORDERED: FAMOTIDINE 20 MG/2 ML VIAL IV ONE (18:01)
[2022-07-14 18:04] LABS: Hematocrit 34.4 % (39.6-49.0); Lymphocytes % 15.5 % (15.3-44.8); MCV 95.9 fL (80-100); MPV 6.8 fL (7.6-11.3); RBC Red Blood Cell Count 3.59 M/uL (4.33-5.43)
[2022-07-14 18:18] LABS: AST/SGOT 13 U/L (15-37); Albumin 2.4 g/dL (3.4-5.0); Alkaline Phosphatase 110 U/L (45-117); BUN Blood Urea Nitrogen 43 mg/dL (7-18); Bicarbonate 21 mmol/L (21-32); Bilirubin Total 0.3 mg/dL (0.2-1.0); Glomerular Filtration Rate 20 ml/min (=/>90); Glucose Level 69 mg/dL (74-106); Lipase 164 U/L (73-393); Protein, Total 6.1 g/dL (6.4-8.2); Sodium Level 138 mmol/L (136-145)
[2022-07-14 18:30] LABS: ALT/SGPT < 10 U/L (12-78)
--- NOTE | 2022-07-14 18:50 | EDPHYS ---
Physician Documentation [facility] Name: Kavin Armijo Age: 67 yrs Sex: Male : 1955 Arrival Date: 07/14/2022 Time: 16:41 Bed 2 Private MD: ED Physician Gm Rush HPI: 07/14 19:01 This 67 yrs old Male presents to ER via EMS with complaints of weakness. kdr 19:01 Patient is brought to the emergency department for failure to thrive. In addition to kdr that he reports diarrhea that has been recurrent for the last month or so. He states he been previously treated for C. difficile and had been on antibiotics but that ended a month or more ago. Patient appears to be very cachectic and dehydrated. He does have a home health nurse that comes daily and she was apparently reporting that the patient was become increasingly weak as a result of the ongoing diarrhea. He is also had occasional nausea vomiting. Onset: The symptoms/episode began/occurred at an unknown time. Severity of symptoms: At their worst the symptoms were mild moderate just prior to arrival, in the emergency department the symptoms are unchanged. The patient has experienced similar episodes in the past, chronically. The patient has not recently seen a physician. Historical: - Allergies: 16:44 Phenergan; jd3 - Home Meds: 16:44 aspirin 81 mg Oral tab [Active]; atorvastatin Oral [Active]; Clonidine Oral [Active]; jd3 finasteride Oral [Active]; gabapentin Oral [Active]; sertraline Oral [Active]; tamsulosin Oral [Active]; - PMHx: 16:44 Bipolar disorder; clot L leg; Hypertensive disorder; kidney failure; PAD; jd3 - PSHx: 16:44 gall stones removed; Amputated below knee; triple bypass; jd3 - Immunization history:: Adult Immunizations up to date, Client reports receiving the 2nd dose of the Covid vaccine, Flu vaccine is up to date. - Social history:: Smoking status: Patient reports the use of cigarette tobacco products, denies chronic smoking, but will smoke occasionally. ROS: 19:01 Constitutional: Negative for fever, chills, and weight loss, Eyes: Negative for injury, kdr pain, redness, and discharge, Neck: Negative for injury, pain, and swelling, Cardiovascular: Negative for chest pain, palpitations, and edema, Respiratory: Negative for shortness of breath, cough, wheezing, and pleuritic chest pain. 19:01 Abdomen/GI: Positive for nausea and vomiting, diarrhea, Negative for abdominal distension, anorexia, dysphagia, hematemesis, black/tarry stool, rectal pain, rectal bleeding, bowel incontinence. Exam: 19:01 Constitutional: This is a well developed, poorly nourished patient who is awake, kdr alert, and in no acute distress. Head/Face: Normocephalic, atraumatic. Eyes: Pupils equal round and reactive to light, extra-ocular motions intact. Lids and lashes normal. Conjunctiva and sclera are non-icteric and not injected. Cornea within normal limits. Periorbital areas with no swelling, redness, or edema. Neck: Trachea midline, no thyromegaly or masses palpated, and no cervical lymphadenopathy. Supple, full range of motion without nuchal rigidity, or vertebral point tenderness. No Meningismus. Chest/axilla: Normal chest wall appearance and motion. Nontender with no deformity. No lesions are appreciated. Cardiovascular: Regular rate and rhythm with a normal S1 and S2. No gallops, murmurs, or rubs. Normal PMI, no JVD. No pulse deficits. Respiratory: Lungs have equal breath sounds bilaterally, clear to auscultation and percussion. No rales, rhonchi or wheezes noted. No increased work of breathing, no retractions or nasal flaring. Back: No spinal tenderness. No costovertebral tenderness. Full range of motion. 19:01 Skin: Turgor: is poor, The patient has a decubitus that is healing on his buttocks. Vital Signs: 16:45 BP 143 / 83; Pulse 91; Resp 18 S; Temp 97.5(O); Pulse Ox 100% on R/A; Weight 68.04 kg jd3 (R); Height 5 ft. 7 in. (170.18 cm) (R); Pain 6/10; 17:45 BP 117 / 77; Pulse 88; Resp 18; Pulse Ox 98% on R/A; ph 18:53 BP 116 / 70; Pulse 90; Resp 18; Pulse Ox 99% on R/A; ph 20:00 BP 128 / 69; Pulse 86; Resp 14; Pulse Ox 97% on R/A; jb4 21:30 BP 129 / 66; Pulse 83; Resp 16; Pulse Ox 99% on R/A; jb4 16:45 Body Mass Index 23.49 (68.04 kg, 170.18 cm) jd3 MDM: 18:50 Patient medically screened. kdr 19:01 Data reviewed: vital signs, nurses notes, lab test result(s), radiologic studies. kdr Counseling: I had a detailed discussion with the patient and/or guardian regarding: the historical points, exam findings, and any diagnostic results supporting the discharge/admit diagnosis, lab results, radiology results, the need for further work-up and treatment in the hospital. Physician consultation: Jose De Paz MD As of this moment, I have not spoke with Dr. De Paz however I have left him a message on his phone and will follow until such time as I make contact with Dr. De Paz. 07/14 16:52 Order name: CBC with Diff; Complete Time: 18:30 [facility] 07/14 16:52 Order name: CMP [facility] 07/14 16:52 Order name: Lipase [facility] 07/14 16:52 Order name: Fecal Leukocyte Stain [facility] 07/14 16:52 Order name: Occult Blood kdr 07/14 16:52 Order name: Ova And Parasites kdr 07/14 16:52 Order name: Stool Culture [facility] 07/14 16:52 Order name: C.difficile [facility] 07/14 18:53 Order name: SARS RAPID ph 07/14 19:00 Order name: Basic Metabolic Panel [facility] 07/14 19:00 Order name: Basic Metabolic Panel [facility] 07/14 19:00 Order name: CBC with Automated Diff [facility] 07/14 19:00 Order name: CBC with Automated Diff [facility] 07/14 21:10 Order name: Urine Dipstick-Ancillary [facility] 07/14 16:52 Order name: IV Saline Lock; Complete Time: 17:54 kdr 07/14 16:52 Order name: Labs collected and sent; Complete Time: 17:54 [facility] 07/14 16:52 Order name: Urine Dipstick-Ancillary (obtain specimen); Complete Time: 21:37 [facility] 07/14 19:00 Order name: Case Management Consult [facility] 07/14 19:00 Order name: Dietitian Consult [facility] 07/14 19:00 Order name: Regular [facility] Administered Medications: 18:15 Drug: NS 0.9% 1000 ml Route: IV; Rate: 1 bolus; Site: right antecubital; ph 21:20 Follow up: Response: No adverse reaction; IV Status: Completed infusion; IV Intake: jb4 1000ml 18:15 Drug: Pepcid (famotidine) 20 mg Route: IVP; Site: right antecubital; ph 19:14 Follow up: Response: No adverse reaction ph 18:17 Drug: Zofran (Ondansetron) 4 mg Route: IVP; Site: right antecubital; ph 19:14 Follow up: Response: No adverse reaction ph 20:51 Drug: NS 0.9% 1000 ml Route: IV; Rate: 125 ml/hr; Site: right antecubital; jb4 21:20 Follow up: Response: No adverse reaction; IV Status: Infusion continued upon admission jb4 Disposition Summary: 07/14/22 18:50 Hospitalization Ordered Hospitalization Status: Observation kdr Provider: Jose De Paz Location: Telemetry/MedSurg (observation) kdr Condition: Fair kdr Problem: new kdr Symptoms: have improved kdr Bed/Room Type: Standard kdr Room Assignment: 219(07/14/22 20:10) cg Diagnosis - Weakness kdr - Adult failure to thrive kdr Forms: - Medication Reconciliation Form kdr - SBAR form kdr Signatures: Dispatcher [employer] EDMS Gm Rush MD MD kdr Loli Fuentes RN RN Patt Lawson RN RN cg Bryson, James, RN RN jb4 Dereck Mckeon RN RN jd3 Corrections: (The following items were deleted from the chart) 20:10 18:50 kdr cg
--- NOTE | 2022-07-14 18:50 | ER ---
Nurse's Notes [facility] Name: Kavin Armijo Age: 67 yrs Sex: Male : 1955 Arrival Date: 07/14/2022 Time: 16:41 Bed 2 Private MD: Diagnosis: Weakness;Adult failure to thrive Presentation: 07/14 16:41 Chief complaint: EMS states: "67 year old male reporting diarrhea X 1 month or so. he jd3 reports he has had C-diff before and thinks that what might be going on again. the pt also appears very dehydrated. he has a home health nurse that comes in daily, but he is reporting that he has been getting increasingly weak as a result of the diarrhea. he also reported that he has been having nausea and vomiting, but none today.". Coronavirus screen: At this time, the client does not indicate any symptoms associated with coronavirus-19. Ebola Screen: No symptoms or risks identified at this time. Initial Sepsis Screen: Does the patient meet any 2 criteria? No. Patient's initial sepsis screen is negative. Does the patient have a suspected source of infection? No. Patient's initial sepsis screen is negative. Risk Assessment: Do you want to hurt yourself or someone else? Patient reports no desire to harm self or others. Onset of symptoms was July 14, 2022. 16:41 Acuity: CHANNING 3 jd3 16:41 Method Of Arrival: EMS: [facility] jd3 Historical: - Allergies: 16:44 Phenergan; jd3 - Home Meds: 16:44 aspirin 81 mg Oral tab [Active]; atorvastatin Oral [Active]; Clonidine Oral [Active]; jd3 finasteride Oral [Active]; gabapentin Oral [Active]; sertraline Oral [Active]; tamsulosin Oral [Active]; - PMHx: 16:44 Bipolar disorder; clot L leg; Hypertensive disorder; kidney failure; PAD; jd3 - PSHx: 16:44 gall stones removed; Amputated below knee; triple bypass; jd3 - Immunization history:: Adult Immunizations up to date, Client reports receiving the 2nd dose of the Covid vaccine, Flu vaccine is up to date. - Social history:: Smoking status: Patient reports the use of cigarette tobacco products, denies chronic smoking, but will smoke occasionally. Screenin:46 Abuse screen: Denies threats or abuse. Denies injuries from another. Nutritional ph screening: No deficits noted. Tuberculosis screening: No symptoms or risk factors identified. Fall Risk No fall in past 12 months (0 pts). Secondary diagnosis (15 points) impaired mobility, IV access (20 points). Ambulatory Aid- Crutches/Cane/Walker (15 pts). Gait- Impaired (20 pts.). Mental Status- Oriented to own ability (0 pts). Total Zaidi Fall Scale indicates High Risk Score (45 or more points). Fall prevention measures have been instituted. Side Rails Up X 2 Placed Close to Nursing Station Frequent Obs/Assessments Occuring Family Present and informed to notify staff if the need to leave the bedside As available patient and family educated on Fall Prevention Program and Strategies. Assessment: 16:47 General: Appears in no apparent distress. emaciated, malnourished, Behavior is calm, ph cooperative, appropriate for age, Denies fever. Pain: Complains of pain in coccyx. Neuro: Level of Consciousness is awake, alert, obeys commands, Oriented to person, place, time, situation. Cardiovascular: Capillary refill < 3 seconds in bilateral fingers Patient's skin is warm and dry. Respiratory: Airway is patent Respiratory effort is even, unlabored. GI: Reports diarrhea, nausea. Derm: Skin is fragile, is thin, with poor turgor Skin is normal, scrapes and wounds in multiple stages of healing to bilateral arms Decubitus located on sacrum approximately 2.6 cm to 7.5 cm is stage II. Musculoskeletal: Amputation of left BKA. 19:00 Reassessment: Patient appears in no apparent distress at this time. Patient and/or jb4 family updated on plan of care and expected duration. Pain level reassessed. Patient is alert, oriented x 3, equal unlabored respirations, skin warm/dry/pink. 20:00 Reassessment: Patient appears in no apparent distress at this time. Patient and/or jb4 family updated on plan of care and expected duration. Pain level reassessed. Patient is alert, oriented x 3, equal unlabored respirations, skin warm/dry/pink. 20:15 Reassessment: attempted to call report, instructed to wait for call back. jb4 20:45 Reassessment: Patient appears in no apparent distress at this time. Patient and/or jb4 family updated on plan of care and expected duration. Pain level reassessed. Patient is alert, oriented x 3, equal unlabored respirations, skin warm/dry/pink. attempted to call report, instructed wot wait for call back. 21:45 Reassessment: Patient appears in no apparent distress at this time. Patient and/or jb4 family updated on plan of care and expected duration. Pain level reassessed. Patient is alert, oriented x 3, equal unlabored respirations, skin warm/dry/pink. Vital Signs: 16:45 BP 143 / 83; Pulse 91; Resp 18 S; Temp 97.5(O); Pulse Ox 100% on R/A; Weight 68.04 kg jd3 (R); Height 5 ft. 7 in. (170.18 cm) (R); Pain 6/10; 17:45 BP 117 / 77; Pulse 88; Resp 18; Pulse Ox 98% on R/A; ph 18:53 BP 116 / 70; Pulse 90; Resp 18; Pulse Ox 99% on R/A; ph 20:00 BP 128 / 69; Pulse 86; Resp 14; Pulse Ox 97% on R/A; jb4 21:30 BP 129 / 66; Pulse 83; Resp 16; Pulse Ox 99% on R/A; jb4 16:45 Body Mass Index 23.49 (68.04 kg, 170.18 cm) [facility] ED Course: 16:41 Patient arrived in ED. jd3 16:42 Gm Rush MD is Attending Physician. kdr 16:43 Triage completed. jd3 16:45 Arm band placed on. jd3 16:46 Loli Fuentes RN is Primary Nurse. ph 16:48 Patient has correct armband on for positive identification. Bed in low position. Call ph light in reach. Side rails up X2. Client placed on continuous cardiac and pulse oximetry monitoring. NIBP monitoring applied. 17:54 Initial lab(s) drawn, by me, sent to lab. Inserted saline lock: 22 gauge in right ph antecubital area, using aseptic technique. Blood collected. 18:49 Jose De Paz MD is Hospitalizing Provider. kdr 18:54 No provider procedures requiring assistance completed. Patient admitted, IV remains in ph place. 19:11 Primary Nurse role handed off by Loli Fuentes, RN vc1 Administered Medications: 18:15 Drug: NS 0.9% 1000 ml Route: IV; Rate: 1 bolus; Site: right antecubital; ph 21:20 Follow up: Response: No adverse reaction; IV Status: Completed infusion; IV Intake: jb4 1000ml 18:15 Drug: Pepcid (famotidine) 20 mg Route: IVP; Site: right antecubital; ph 19:14 Follow up: Response: No adverse reaction ph 18:17 Drug: Zofran (Ondansetron) 4 mg Route: IVP; Site: right antecubital; ph 19:14 Follow up: Response: No adverse reaction ph 20:51 Drug: NS 0.9% 1000 ml Route: IV; Rate: 125 ml/hr; Site: right antecubital; jb4 21:20 Follow up: Response: No adverse reaction; IV Status: Infusion continued upon admission jb4 Medication: 16:47 VIS not applicable for this client. ph Intake: 21:20 IV: 1000ml; Total: 1000ml. jb4 Outcome: 18:50 Decision to Hospitalize by Provider. kdr 21:46 Admitted to Med/surg accompanied by tech, via stretcher, room 219, with chart. jb4 21:46 Condition: stable 21:46 Discharge instructions given to patient, Instructed on the need for admit, Demonstrated understanding of instructions. 21:47 Patient left the ED. jb4 Signatures: Gm Rush MD MD kdr Loli Fuentes RN RN ph Bryson, James, RN RN jb4 Dereck Mckeon RN RN jd3 Calcote, Vanessa, RN RN vc1 Corrections: (The following items were deleted from the chart) 18:54 16:47 Derm: Skin is fragile, is thin, with poor turgor Skin is normal, scrapes and ph wounds in multiple stages of healing to bilateral arms ph
[2022-07-14] MEDS ORDERED: ONDANSETRON 4 MG/2 ML VIAL IV PRN (18:53)
[2022-07-14 19:50] LABS: SARS-CoV-2 Antigen Rapid Res Negative (Negative)
[2022-07-14 21:09] LABS: Urine Blood Negative (Negative); Urine Glucose Negative (Negative); Urine Protein Negative (Negative); Urine Specific Gravity 1.015 (1.005-1.030); Urine pH 5.5 (5.0-7.0)
[2022-07-14] MEDS: D5 0.45 NS 1,000 ML IV SCH (22:39)
[2022-07-14 23:16] VITALS: BMI 17.4
[2022-07-15 03:46] LABS: Absolute Lymphocytes (CBC) 1.8 K/uL (0.7-4.9); Lymphocytes % 19.6 % (15.3-44.8); MCV 95.9 fL (80-100); RBC Red Blood Cell Count 3.13 M/uL (4.33-5.43)
[2022-07-15 03:59] LABS: Potassium 3.5 mmol/L (3.5-5.1)
[2022-07-15] MEDS ORDERED: INFLUENZA VACCINE (for 6+ mo) 0.5 ML DOSE IMVAC ONE (08:00)
[2022-07-15] MEDS: D5 0.45 NS 1,000 ML IV SCH ×3 (10:18→22:30)
[2022-07-15] MEDS ORDERED: POTASSIUM CL 40 MEQ in NA CHLORIDE 0.9% 500 ML IV SCH (12:00)
--- NOTE | 2022-07-15 12:36 | RAD REPORT ---
EXAM DESCRIPTION: Jasiel Single View07/15/2022 12:24 pm CLINICAL HISTORY: Chest pain COMPARISON: April 2022 FINDINGS: The lungs appear clear of acute infiltrate. The heart is normal size Postsurgical changes involve the chest IMPRESSION: No acute abnormalities displayed
--- NOTE | 2022-07-15 12:50 | CON ---
Date of Consultation: 07/15/2022 Reason For Consultation: Elevated BUN and creatinine, fluid management. History Of Present Illness: This is a pleasant 67-year-old gentleman, well known to me from the [facility] with significant past medical history of chronic kidney disease stage 4 secondary to cardiorenal, hypertension nephrosclerosis, baseline creatinine around 2.6, GFR of 24, CAD status post CABG, compli cated with congestive heart failure, last echocardiogram on the record back in 2018, at that time eje ction fraction was . COPD, hypertension, hyperlipidemia, the patient came to the hospital complaining from diarrhea for the last almost a week 3-4 times a day, started having fatigue and weak ness. The patient was in the alf and he was discharged on neomycin. The patient came to [facility], in the hospital found to cachectic and dehydrated. For that reason, the patient was admi tted. Blood pressure was slightly on the lower side. The patient was started on IV fluid. The carline ent denied any shortness of breath. Denied any leg edema. Denied taking any nonsteroidal or any con trast. Upon arrival to the hospital, the patient's hemoglobin was elevated 11.1. His baseline hemog lobin 8.8 back in May. The patient had creatinine 3.2, back in May creatinine 1.8 with G FR of 40. Currently creatinine 3.2 with GFR of 20. Again, the patient was started on IV hydration, kidney number slightly improved, creatinine down to 3 with GFR 22. The patient doing well. Accordin g to him, diarrhea has been slowed down, but he still has it. No fever or chills. Past Medical History: Includes; 1.CAD complicated with congestive heart failure, diastolic dysfunction, last echocardiogram back in 2018, ejection fraction of . 2.Hypertension. 3.Obstructive sleep apnea. 4.Chronic kidney disease stage 4/3B, Baseline creatinine 2.6, GFR of 24. Back in May, creatin ine down to 1.8 with GFR of 30. Past Surgical History: Includes CABG and cholecystectomy. Allergies: TO PHENERGAN. Family History: Positive for pancreatic cancer, hypertension, polycythemia vera. Social History: Active smoker. Denied alcohol. Denied drug abuse. Was in alf, currently at home. Review of Systems: Head and Neck: No red eye. No ear pain. GI: Has decreased intake. Has diarrhea. No nausea. No vomiting. : No polyuria. No dysuria. No hematuria. Automotive Parts Specialist: Not applicable. Respiratory: No shortness of breath. Cardiovascular: No chest pain. No orthopnea. No leg swelling. Endocrine: No polydipsia. Skin: No rash. Neuro: Has weakness. Musculoskeletal: Generalized fatigue. Home Medications: Include Flomax, Zoloft, mirtazapine, gabapentin, finasteride, calcitriol, atorvast atin, aspirin, and amlodipine. Current Medications In The Hospital: Include IV fluid. Physical Examination: Vital Signs: When I saw the patient; blood pressure 122/66, pulse of 72, afebrile. General: The patient lying flat, on room air without any respiratory symptoms. Chest: Clear to auscultation. Heart: S1, S2. Systolic murmur. Abdomen: Soft. Mild tenderness. No guarding or rebound. Extremities: No edema. Neurologic: Alert. No focality. Laboratory Data: Sodium 140, potassium 3.5, bicarb 21, BUN 39, creatinine 3, calcium 8, albumin 2.4. Corrected calcium is 9.2. Upon arrival to the hospital yesterday; sodium 138, creatinine 3.2, GFR of 20. Back in May, creatinine 1.8 with GFR of 40. Hemoglobin 8.8 on admission, currently hem oglobin 11.1. Assessment And Plan: 1.Acute kidney injury on advanced chronic kidney disease secondary to prerenal, normal volume to the dry side. I am going to continue IV hydration. I doubt for any obstructive uropathy with the prese nce of marginal hypernatremia. I agree with D5 half and we will monitor the patient. 2.Hypokalemia. We will supplement. 3.Recurrent Clostridium difficile with diarrhea. I am going to resume Flagyl. We will follow up wi th primary. 4.Chronic kidney disease secondary to cardiorenal, hypertension nephrosclerosis with acute kidney in jury as above. The chronic kidney disease as I mentioned stable. We will follow up. 5.Coronary artery disease with congestive heart failure, currently on the dry side. Keep holding an y diuresis. Start hydration. We will follow up. 6.Hypertension, currently blood pressure on the lower side. The patient dehydrated. Keep holding a ny blood pressure medications, avoid any PERRY inhibitor or ARB. We will follow up. 7.Secondary hyperparathyroidism. PTH back in April at 145. No need for calcitriol. We will hold it. DONN Voice ID: [id number] Report ID: [id number]
[2022-07-15] MEDS: METRONIDAZOLE 500mg IVPB 500 MG/100 ML BAG IV SCH (17:27)
--- NOTE | 2022-07-15 19:17 | P.HP ---
Certification for Inpatient Patient admitted to: Inpatient With expected LOS: >2 Midnights Practitioner: I am a practitioner with admitting privileges, knowledge of patient current condition, hospital course, and medical plan of care. Services: Services provided to patient in accordance with Admission requirements found in Title 42 Section 412.3 of the Code of Federal Regulations Patient History Date of Service: 07/15/22 Reason for admission: WEAKNESS AND DIARRHEA. History of Present Illness: RHEA HAS MANY MEDICAL ISSUES MAINLY RELATED TO COMPLICATIONS OF HEAVY SMOKING. THIS STARTED WITH PVD, GANGRENE, SEPSIS, AMPUTATION, MULTIPLE MONTHS OF ANTIBIOTICS AT MANY HOSPITALS LATER HAD WORSE CKD TO CKD5 AND HEMODIALYSIS. HE HAS HAD C DIFF COLITIS FOR ABOUT TWO MONTHS AND MANAGED BY ADVANCED NURSING PROFESSOR WITH ORAL VANCOMYCIN THAT FAILED AND THEN NOW HE IS ON XIFAXAN . I ALSO NOTED THAT HE HAS NATACHA GIVEN LACTULOSE AND STILL ON IT. Allergies chlorpromazine HCl [From Thorazine] Allergy (Severe, Verified 03/25/21 14:55) Anaphylaxis promethazine HCl [From Phenergan] Allergy (Severe, Verified 03/25/21 14:55) Anaphylaxis Home medications list reviewed: Yes Home Medications: Aspirin [Ecotrin 81 MG] 81 mg PO DAILY 06/19/20 Mirtazapine 15 mg PO BEDTIME 06/19/20 Sertraline [Zoloft*] 100 mg PO DAILY 06/19/20 Finasteride [Proscar*] 5 mg PO BEDTIME 11/29/21 Bupropion HCl [Wellbutrin] 50 mg PO DAILY 12/02/21 Atorvastatin Calcium [Lipitor*] 10 mg PO DAILY 12/22/21 Gabapentin [Neurontin*] 100 mg PO TID 05/10/22 Amlodipine [Norvasc*] 10 mg PO BEDTIME 07/14/22 Calcitriol [Rocaltrol] 0.5 mcg PO DAILY 07/14/22 Tamsulosin [Flomax*] 0.4 mg PO BEDTIME 07/14/22 - Past Medical/Surgical History Has patient received pneumonia vaccine in the past: Yes Diabetic: No -: Obstructive sleep apnea -: Chronic renal disease, stage IV -: CAD with prior CABG x3 vessel -: Bipolar disorder -: Chronic pain-lower back -: Hypertension -: Hyperlipidemia -: Insomnia -: History of dvt right calf (knee fracture) -: Colon polyps -: GERD with ulcers -: Tobacco abuse -: CABG x3 vessel -: cholecystectomy -: triple bypass -: knee surgery -: AKA to L leg -: colon polyp removal Psychosocial/ Personal History: Patient is - Family History Mother -: Heart disease Notes: polycythemia, [place] Father -: Hypertension, Cancer, Other (see notes) Notes: pancreatic cancer - Social History Smoking Status: Current every day smoker Alcohol use: No CD- Drugs: No Caffeine use: Yes Place of Residence: Home Review of Systems 10-point ROS is otherwise unremarkable General: Weakness, Malaise Physical Examination - Vital Signs Temperature: 97.5 F Blood Pressure: 98/71 Pulse: 80 Respirations: 16 Pulse Ox (%): 98 - Physical Exam General: Oriented x3, Cachectic, Mild distress HEENT: Atraumatic, PERRLA, Mucous membr. moist/pink, EOMI, Sclerae nonicteric Neck: Supple, 2+ carotid pulse no bruit, No LAD, Without JVD or thyroid abnormality Respiratory: Clear to auscultation bilaterally, Normal air movement Cardiovascular: Regular rate/rhythm, Normal S1 S2 Gastrointestinal: Normal bowel sounds, No tenderness Musculoskeletal: No tenderness Integumentary: No rashes Neurological: Normal gait, Normal speech, Normal strength at 5/5 x4 extr, Normal tone, Normal affect Lymphatics: No axilla or inguinal lymphadenopathy Assessment and Plan - Problems (Diagnosis) (1) Acute on chronic renal failure Current Visit: No Status: Acute Plan: HE IS ON HD NOW. DR MANTILLA IS DOING FOLLOW UP BP IS LOW. STOP ALL BP MEDS. (2) Colitis due to Clostridium difficile Onset Date: 05/25/18 Current Visit: No Status: Chronic Plan: CONTINUE XIFAXAN REDO TEST. C DIFF TEST DONE AGAIN. LACTULOSE MAY BE THE REASON TO ADD TO DIARRHEA. - Advance Directives Does patient have a Living Will: No Does patient have a Durable POA for Healthcare: No
[2022-07-16] MEDS: METRONIDAZOLE 500mg IVPB 500 MG/100 ML BAG IV SCH ×3 (01:12→17:16)
[2022-07-16 04:23] LABS: Albumin 1.9 g/dL (3.4-5.0); Magnesium 1.7 mg/dL (1.8-2.4); Phosphorus 2.5 mg/dL (2.5-4.9); Potassium 4.4 mmol/L (3.5-5.1); Thyroid Stimulating Hormone 2.59 uIU/mL (0.360-3.740)
[2022-07-16] MEDS: D5 0.45 NS 1,000 ML IV SCH ×2 (09:29→21:00)
[2022-07-16] MEDS: ACETAMINOPHEN 500 MG TAB PO PRN ×2 (10:13→21:38)
[2022-07-16] MEDS ORDERED: Magnesium Sulfate 2gm IVPB 2 G/50 ML BAG IV ONE (10:23)
[2022-07-16] MEDS ORDERED: NACHLORIDE 0.45% 500 ML IV SCH (11:15)
--- NOTE | 2022-07-16 16:14 | PN ---
Date of Progress Note: 07/16/2022 Subjective: Patient was admitted with acute kidney injury secondary to GI loss secondary to diarrhea . Patient had recurrent C diff. Patient today according to him still have the diarrhea less but sti ll present. Physical Examination: Vital Signs: Blood pressure 126/69, pulse of 79, afebrile. Patient had good urine output of 1400. Chest: Clear to auscultation. Heart: S1, S2. Regular. Abdomen: Soft, nontender. No guarding or rebound. Extremities: No edema. Neurologic: Alert. No focality. Laboratory Data: WBC 9, H and H 9.9/30. Sodium 142, potassium 4.4, bicarb 22, BUN 33, creatinine do wn to 2.8, GFR 23, calcium 7.6, phosphorus 2.5, magnesium 1.7, albumin 1.9. Corrected calcium is 9.2 . Current Medications: The patient on include metronidazole 500 t.i.d. Zofran. Tylenol. IV fluid D5 half at 100. Assessment And Plan: 1.Acute kidney injury on chronic kidney disease secondary to prerenal, recovered back to baseline, s till looked to me on the dry side. I am going to continue current hydration. 2.Hypomagnesemia, hypokalemia. We will supplement. 3.Hypernatremia. Continue IV fluid. I am going to go ahead and bolus the patient with half normal just 500 and we will continue to monitor. 4.Colitis, Clostridium difficile history. I am going to continue with the Flagyl. 5.Secondary hyperparathyroidism. PTH 125. Calcium and phosphorus on the acceptable range. Not goi ng to need any calcitriol for the time being. We will monitor. 6.Hypertension, controlled, optimal. Currently blood pressure on the lower side. Continue current monitor. Keep holding diuresis. MA/MODL Voice ID: [id number] Report ID: [id number]
--- NOTE | 2022-07-16 20:05 | PN ---
Subjective: Kavin Armijo is doing lot better. He is able to eat now. His diarrhea has improved. Denies any chest pain, nausea, vomiting. Today, he tells me that he does not have money so he does not eat. His family, he and his can barely pay towards expenses and go without food many times. I asked for Meals on Wheels, and he said it is only once a day. In any case, I think social workers will probably have to help him to get some food at home. If nothing at least Meals on Wheels, may be double quantity so they can survive at home. In any case, he wants to go to the skilled nursing again probably because of the care he receives and probably because of the food he receives. Otherwise, clinically stable. His Clostridium difficile report is pending. He was also taking lactulose that could be adding to this diarrhea, so hopefully C. difficile is taken care by medicine and proper diet. He also has a chronic renal failure. His creatinine is at baseline between [address] Ziegelr is on the case. Prognosis remains poor. RVD/MODL Voice ID: [id number] Report ID: [id number] KERI
[2022-07-16] MEDS: Banana Flakes/T-Galactooligos 1 Dose Packet PO SCH (21:00)
[2022-07-16 21:05] LABS: C.diff Antigen/Toxin Ag pos : Tox neg (NEG : NEG)
[2022-07-16] MEDS: JUVEN PACKET PO SCH (21:39)
[2022-07-16] MEDS: ENSURE ENLIVE 237 ML CAN PO SCH (21:39)
[2022-07-17] MEDS: METRONIDAZOLE 500mg IVPB 500 MG/100 ML BAG IV SCH ×3 (01:25→16:38)
[2022-07-17 04:20] LABS: Magnesium 1.9 mg/dL (1.8-2.4); Phosphorus 1.8 mg/dL (2.5-4.9); Potassium 4.7 mmol/L (3.5-5.1)
[2022-07-17] MEDS: D5 0.45 NS 1,000 ML IV SCH ×2 (08:13→13:59)
[2022-07-17] MEDS: Banana Flakes/T-Galactooligos 1 Dose Packet PO SCH ×2 (08:14→21:00)
[2022-07-17] MEDS: JUVEN PACKET PO SCH ×2 (08:15→22:18)
[2022-07-17] MEDS: ENSURE ENLIVE 237 ML CAN PO SCH ×2 (08:15→22:18)
[2022-07-17] MEDS ORDERED: POTASSIUM PHOS 10 MM in NA CHLORIDE 0.9% 250 ML IV ONE (12:11)
[2022-07-17] MEDS ORDERED: MAGNESIUM SULFATE 1 gm IVPB 1 GM/100 ML BAG IV ONE (12:11)
--- NOTE | 2022-07-17 15:54 | PN ---
Date of Progress Note: 07/17/2022 Subjective: The patient was admitted with colitis with diarrhea and acute kidney injury on advanced chronic kidney disease. The patient was started on IV hydration. Kidney function has been improved. Physical Examination: Vital Signs: Blood pressure 150/78, pulse of 75, afebrile. Chest: Clear to auscultation. Heart: S1, S2. Regular. Abdomen: Soft, nontender. Extremities: No edema. Neurologic: Alert. No focality. Laboratory Data: Hemoglobin 9.9. Sodium 140, potassium 4.7, bicarb 23, BUN 39, creatinine 2.5, GFR of 26. Calcium 8.2, phosphorus 1.8, magnesium 1.9. Current Medications: The patient on include Ensure, metronidazole, D5 half at 100 per hour. Assessment And Plan: 1.Acute kidney injury on advanced chronic kidney disease secondary to GI loss, dehydration. I am go ing to continue IV fluid, but given the diarrhea, I am going to decrease IV fluid to 50 per hour, trent[place] n to discontinue hopefully tomorrow. 2.Hypertension, controlled, optimal. Continue current treatment. 3.Marginal hypernatremia secondary to GI loss. Continue IV hydration. 4.Hypomagnesemia, status post supplement. We will continue to supplement. 5.Hypophosphatemia. We will supplement cautiously given the great degree of kidney function. 6.Colitis. Continue Flagyl. Follow up with primary. DONN Voice ID: [id number] Report ID: [id number]
--- NOTE | 2022-07-17 19:24 | P.PN ---
Subjective Date of Service: 07/17/22 Chief Complaint: WEAKNESS AND DIARRHEA. HE IS SMILING AND EATING WELL. HE SAYS HE AND DON'T HAVE MONEY TO BUY FOOD AND GO STARVING ALMOST DAILY. JUST WITH FOOD, HE IS GETTING BETTER HERE. HE WANTS CUSTODIAL NH AND COUNTERINTELLIGENCE SPECIALIST HAS ORDERS. Physical Examination - Vital Signs Temperature: 97.7 F Blood Pressure: 149/81 Pulse: 80 Respirations: 18 Pulse Ox (%): 99 - Physical Exam General: Oriented x3, Mild distress HEENT: Atraumatic, PERRLA, EOMI Neck: Supple, JVD not distended Respiratory: Clear to auscultation bilaterally, Normal air movement Cardiovascular: Regular rate/rhythm, Normal S1 S2 Gastrointestinal: Normal bowel sounds, No tenderness Musculoskeletal: No tenderness Integumentary: No rashes Neurological: Normal speech, Normal tone, Normal affect Lymphatics: No axilla or inguinal lymphadenopathy - Studies Medications List Reviewed: Yes Assessment And Plan - Current Problems (Diagnosis) (1) Acute on chronic renal failure Current Visit: No Status: Acute Plan: HE IS ON HD NOW. DR MANTILLA IS DOING FOLLOW UP BP IS LOW. STOP ALL BP MEDS. (2) Colitis due to Clostridium difficile Onset Date: 05/25/18 Current Visit: No Status: Chronic Plan: CONTINUE XIFAXAN REDO TEST. C DIFF TEST DONE AGAIN. LACTULOSE MAY BE THE REASON TO ADD TO DIARRHEA. DIARRHEA IS BETTER. I STOOPED LACTULOSE YEST. CONT XIFAXAM REPEAT C DIFF TEST PENDING.
[2022-07-17] MEDS: MIRTAZAPINE 15 MG TAB PO SCH (22:17)
[2022-07-17] MEDS: AMLODIPINE 10 MG TAB PO SCH (22:17)
[2022-07-17] MEDS: FINASTERIDE 5 MG TAB PO SCH (22:17)
[2022-07-17] MEDS: GABAPENTIN 100 MG CAP PO SCH (22:18)
[2022-07-18] MEDS: METRONIDAZOLE 500mg IVPB 500 MG/100 ML BAG IV SCH ×3 (02:02→17:27)
[2022-07-18] MEDS: D5 0.45 NS 1,000 ML IV SCH (02:05)
[2022-07-18 05:56] LABS: Magnesium 2.1 mg/dL (1.8-2.4); Phosphorus 1.5 mg/dL (2.5-4.9); Potassium 5.4 mmol/L (3.5-5.1)
[2022-07-18] MEDS: Banana Flakes/T-Galactooligos 1 Dose Packet PO SCH ×2 (08:37→20:33)
[2022-07-18] MEDS: JUVEN PACKET PO SCH ×2 (08:38→20:32)
[2022-07-18] MEDS: CALCITROL 0.25 MCG CAP PO SCH (08:38)
[2022-07-18] MEDS: ENSURE ENLIVE 237 ML CAN PO SCH ×2 (08:38→20:32)
[2022-07-18] MEDS: GABAPENTIN 100 MG CAP PO SCH ×3 (08:39→20:32)
[2022-07-18] MEDS: ASPIRIN EC 81 MG TAB PO SCH (08:39)
[2022-07-18] MEDS: buPROPion HCL 100 MG TAB PO SCH (08:39)
[2022-07-18] MEDS: ATORVASTATIN 10 MG TAB PO SCH (08:39)
[2022-07-18] MEDS: SERTRALINE HCL 100 MG TAB PO SCH (08:39)
--- NOTE | 2022-07-18 13:07 | P.PN ---
Subjective Date of Service: 07/18/22 Chief Complaint: WEAKNESS AND DIARRHEA. Subjective: No new changes Physical Examination - Vital Signs Temperature: 97.3 F Blood Pressure: 126/70 Pulse: 76 Respirations: 18 Pulse Ox (%): 96 - Physical Exam General: Other (Appears as his stated age.) HEENT: Atraumatic, Normocephalic Neck: Supple Respiratory: Other (Symmetric chest expansion) Cardiovascular: No rubs Gastrointestinal: No guarding Musculoskeletal: No clubbing, Other (+L AKA) Integumentary: No warmth Neurological: Other (Non focal) Urinary: Other (No bladder distention) External genitalia: Deferred Rectal: Deferred - Studies Medications List Reviewed: Yes Assessment And Plan - Plan 1. Acute kidney injury on advanced chronic kidney disease secondary to GI loss, dehydration. Improving. Cont IV fluid same rate. 2. Hypertension, controlled. Continue current med regimen. 3. HypoPO4. Phos IV repletion today. 4. Diarrhea/colitis. On IV flagyl. 5. HyperK. IV fluid as above.
[2022-07-18] MEDS: LACTULOSE 20 GM/30 ML UCUP PO SCH (13:16)
[2022-07-18] MEDS ORDERED: SODIUM PHOSPHATE 10 MM in NA CHLORIDE 0.9% 250 ML IV ONE (14:11)
--- NOTE | 2022-07-18 14:21 | P.PN ---
Subjective Date of Service: 07/18/22 Chief Complaint: WEAKNESS AND DIARRHEA. Subjective: Improving HE IS SMILING AND EATING WELL. HE SAYS HE AND DON'T HAVE MONEY TO BUY FOOD AND GO STARVING ALMOST DAILY. JUST WITH FOOD, HE IS GETTING BETTER HERE. 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 HE IS LOT BETTER WITH GETTING FOOD. NOT MUCH HAS BEEN DONE EXCEPT FOR DIET. Review of Systems 10-point ROS is otherwise unremarkable General: Weakness Physical Examination - Vital Signs Temperature: 97.3 F Blood Pressure: 126/70 Pulse: 76 Respirations: 18 Pulse Ox (%): 96 - Physical Exam General: Oriented x3, Mild distress HEENT: Atraumatic, PERRLA, EOMI Neck: Supple, JVD not distended Respiratory: Clear to auscultation bilaterally, Normal air movement Cardiovascular: Regular rate/rhythm, Normal S1 S2 Gastrointestinal: Normal bowel sounds, No tenderness Musculoskeletal: No tenderness, Other (AMPUTEE.) Integumentary: No rashes Neurological: Normal speech, Normal tone, Normal affect Lymphatics: No axilla or inguinal lymphadenopathy - Studies Medications List Reviewed: Yes Assessment And Plan - Current Problems (Diagnosis) (1) Acute on chronic renal failure Current Visit: No Status: Acute Plan: HE IS ON HD NOW. DR MANTILLA IS DOING FOLLOW UP BP IS LOW. STOP ALL BP MEDS. (2) Colitis due to Clostridium difficile Onset Date: 05/25/18 Current Visit: No Status: Chronic Plan: CONTINUE XIFAXAN REDO TEST. C DIFF TEST DONE AGAIN. LACTULOSE MAY BE THE REASON TO ADD TO DIARRHEA. DIARRHEA IS BETTER. I STOOPED LACTULOSE YEST. CONT XIFAXAM REPEAT C DIFF TEST PENDING. LAB SAYS THE STOOL IS COLLECTED BUT NO RESULTS YET. I CALLED [facility] TO CHECK THEY DON'T EVEN HAVE THE SAMPLE THAT WAS TO BE SENT. NOW HE IS CONSTIPATED WHEN WE STOPPED LACTULOSE. HE HAS NO C DIFF IT LOOKS LIKE.
[2022-07-18] MEDS: TAMSULOSIN 0.4 MG SR CAP PO SCH (20:31)
[2022-07-18] MEDS: FINASTERIDE 5 MG TAB PO SCH (20:31)
[2022-07-18] MEDS: AMLODIPINE 10 MG TAB PO SCH (20:31)
[2022-07-18] MEDS: MIRTAZAPINE 15 MG TAB PO SCH (20:32)
[2022-07-18] MEDS: ACETAMINOPHEN 500 MG TAB PO PRN (22:05)
[2022-07-19] MEDS: METRONIDAZOLE 500mg IVPB 500 MG/100 ML BAG IV SCH ×3 (00:52→16:58)
[2022-07-19 04:01] LABS: Albumin 1.9 g/dL (3.4-5.0); Magnesium 1.8 mg/dL (1.8-2.4); Phosphorus 1.4 mg/dL (2.5-4.9); Potassium 5.3 mmol/L (3.5-5.1)
[2022-07-19] MEDS: D5 0.45 NS 1,000 ML IV SCH (08:35)
[2022-07-19] MEDS: CALCITROL 0.25 MCG CAP PO SCH (08:36)
[2022-07-19] MEDS: SERTRALINE HCL 100 MG TAB PO SCH (08:36)
[2022-07-19] MEDS: buPROPion HCL 100 MG TAB PO SCH (08:36)
[2022-07-19] MEDS: ATORVASTATIN 10 MG TAB PO SCH (08:37)
[2022-07-19] MEDS: GABAPENTIN 100 MG CAP PO SCH ×3 (08:37→21:04)
[2022-07-19] MEDS: ENSURE ENLIVE 237 ML CAN PO SCH ×2 (08:37→21:00)
[2022-07-19] MEDS: LACTULOSE 20 GM/30 ML UCUP PO SCH (08:37)
[2022-07-19] MEDS: Banana Flakes/T-Galactooligos 1 Dose Packet PO SCH ×2 (08:37→21:00)
[2022-07-19] MEDS: ASPIRIN EC 81 MG TAB PO SCH (08:37)
[2022-07-19] MEDS: JUVEN PACKET PO SCH ×2 (08:37→21:00)
--- NOTE | 2022-07-19 14:50 | P.PN ---
Subjective Date of Service: 07/19/22 Subjective: No new changes, No C/O voiced, Improving Patient awaiting for placement at [facility]. Review of Systems 10-point ROS is otherwise unremarkable Physical Examination - Vital Signs Temperature: 97.9 F Blood Pressure: 101/61 Pulse: 105 Respirations: 16 Pulse Ox (%): 96 - Physical Exam General: Alert, In no apparent distress, Oriented x3 HEENT: Atraumatic, PERRLA, EOMI Neck: Supple, JVD not distended Respiratory: Clear to auscultation bilaterally, Normal air movement Cardiovascular: Regular rate/rhythm, Normal S1 S2 Gastrointestinal: Hypoactive, Soft and benign, No rebound, No guarding, Tenderness Musculoskeletal: No clubbing, No swelling, No tenderness Neurological: Sensation intact, Cranial nerves 3-12 intact - Studies Medications List Reviewed: Yes Assessment & Plan - Problems (Diagnosis) (1) Abdominal pain Onset Date: 05/03/18 Current Visit: No Status: Acute (2) Hyperlipidemia Current Visit: No Status: Acute (3) UTI (urinary tract infection) Onset Date: 08/09/18 Current Visit: No Status: Acute (4) Bipolar depression Current Visit: No Status: Chronic (5) CAD (coronary artery disease) Onset Date: 02/23/18 Current Visit: No Status: Chronic Qualifiers: Coronary Disease-Associated Artery/Lesion type: [place] artery [place] vs. transplanted heart: [place] heart (6) Chronic kidney disease Onset Date: 05/03/18 Current Visit: No Status: Chronic Qualifiers: Chronic kidney disease stage: stage 3 (moderate) (7) Hypertension Current Visit: No Status: Chronic Qualifiers: Hypertension type: essential hypertension Qualified Code(s): I10 - Essential (primary) hypertension (8) ROSS (acute kidney injury) Current Visit: No Status: Acute - Plan Plan: 1. Continue with diet and as tolerated 2. Monitor renal function 3. Out of bed and ambulate 4. Monitor labs closely 5. Work on placement alf facility 6. GI and DVT prophylaxis - Advance Directives Does patient have a Living Will: No Does patient have a Durable POA for Healthcare: No
[2022-07-19] MEDS: MIRTAZAPINE 15 MG TAB PO SCH (21:04)
[2022-07-19] MEDS: TAMSULOSIN 0.4 MG SR CAP PO SCH (21:04)
[2022-07-19] MEDS: FINASTERIDE 5 MG TAB PO SCH (21:05)
[2022-07-19] MEDS: AMLODIPINE 10 MG TAB PO SCH (21:05)
--- NOTE | 2022-07-19 21:12 | PN ---
Date of Progress Note: 07/19/2022 Chief Complaint: Fatigue, generalized weakness, diarrhea, chronic kidney disease, acute kidney injur y. Review of Systems: Patient denies fever or chills. Physical Examination: Lungs: Clear to auscultation bilaterally. Heart: S1, S2. Abdomen: Soft. Extremities: No edema. Impression And Plan: 1.Acute kidney injury on advanced chronic kidney disease secondary to gastrointestinal losses and vo lume depletion. Patient will continue IV fluids. Monitor I's and O's. 2.Hypertension, controlled. Continue current medication. 3.Hypophosphatemia. Continue IV repletion with sodium and potassium phosphate. 4.Diarrhea, colitis. Patient is on Flagyl. 5.Hyperkalemia. Continue IV fluids and monitor potassium level. Patient may need Florinef to contr ol hyperkalemia. EB/MODL Voice ID: [id number] Report ID: [id number]
[2022-07-20] MEDS: METRONIDAZOLE 500mg IVPB 500 MG/100 ML BAG IV SCH ×3 (00:04→16:24)
[2022-07-20] MEDS: D5 0.45 NS 1,000 ML IV SCH ×2 (01:00→10:49)
[2022-07-20 03:29] LABS: MCV 95.4 fL (80-100); RBC Red Blood Cell Count 3.05 M/uL (4.33-5.43)
[2022-07-20 03:46] LABS: Magnesium 1.7 mg/dL (1.8-2.4); Phosphorus 1.6 mg/dL (2.5-4.9); Potassium 5.4 mmol/L (3.5-5.1)
[2022-07-20 04:00] LABS: Potassium 5.4 mmol/L (3.5-5.1)
[2022-07-20] MEDS: GABAPENTIN 100 MG CAP PO SCH ×3 (08:56→21:28)
[2022-07-20] MEDS: ASPIRIN EC 81 MG TAB PO SCH (08:56)
[2022-07-20] MEDS: ATORVASTATIN 10 MG TAB PO SCH (08:56)
[2022-07-20] MEDS: LACTULOSE 20 GM/30 ML UCUP PO SCH (08:56)
[2022-07-20] MEDS: CALCITROL 0.25 MCG CAP PO SCH (08:56)
[2022-07-20] MEDS: buPROPion HCL 100 MG TAB PO SCH (08:56)
[2022-07-20] MEDS: Banana Flakes/T-Galactooligos 1 Dose Packet PO SCH (08:57)
[2022-07-20] MEDS: JUVEN PACKET PO SCH ×2 (08:59→21:00)
[2022-07-20] MEDS: ENSURE ENLIVE 237 ML CAN PO SCH ×2 (08:59→21:00)
[2022-07-20] MEDS ORDERED: FLUDROCORTISONE 0.1 MG TAB PO SCH (09:00)
[2022-07-20] MEDS: SERTRALINE HCL 100 MG TAB PO SCH (09:16)
[2022-07-20] MEDS: ACETAMINOPHEN 500 MG TAB PO PRN (16:36)
[2022-07-20] MEDS ORDERED: SOD POLYSTYREN SUL 15 GM/60 ML UCUP PO STA (18:42)
[2022-07-20] MEDS: TAMSULOSIN 0.4 MG SR CAP PO SCH (21:28)
[2022-07-20] MEDS: AMLODIPINE 10 MG TAB PO SCH (21:28)
[2022-07-20] MEDS: MIRTAZAPINE 15 MG TAB PO SCH (21:28)
[2022-07-20] MEDS: FINASTERIDE 5 MG TAB PO SCH (21:31)
--- NOTE | 2022-07-20 21:50 | PN ---
Date of Progress Note: 07/20/2022 Chief Complaint: Chronic kidney disease. Subjective: Patient developed diarrhea, acute kidney injury on underlying advanced chronic kidney di sease. He is on metronidazole. He denies nausea, vomiting. Patient was found to have hyperkalemia. Potassium is 5.4. There is no evidence of significant metabolic acidosis. Review of Systems: Denies fever, chills. Physical Examination: Lungs: Clear to auscultation bilaterally. Heart: S1, S2. Abdomen: Soft. Extremities: No edema. Impression And Plan: 1.Acute kidney injury on advanced chronic kidney disease secondary to gastrointestinal fluid loss, v olume depletion. Patient will continue IV fluids. Continue hydration by mouth as tolerated. Monito r I's and O's. 2.Hypertension, controlled. Continue current medication. 3.Hypophosphatemia. Patient received repletion with sodium and potassium phosphate. Monitor potass ium level. 4.Diarrhea, colitis. Patient is on Flagyl. 5.Hyperkalemia. Continue IV fluids. Patient may need Florinef to control hyperkalemia. Garimakelma wa s ordered to treat hyperkalemia. EB/MODL Voice ID: [id number] Report ID: [id number]
--- NOTE | 2022-07-21 00:38 | PN ---
Subjective: Mr. Armijo is doing lot better. He is able to eat and drink properly. He has no diarrhea any longer and has improved with just feeling full 1 time here and unfortunately there is no food at home any longer and so, both and go hungry without food and I will ask social workers to help out in this situation but he is actually considering going to penitentiary for long-term if he is able to go to Medicaid and be on penitentiary bed for a long duration, so that he can be taken care of. Assessment/plan: 1. Chronic renal failure with hyperkalemia. Give him a dose of Kayexalate 1 more time. Check CBC, chem-7 every day. 2. Amputation history, status post PVD from smoking history. 3. Bipolar disease, currently controlled. Continue medications. He sounds very nice to us according to his . He is verbally abusive to her all the time, so it is hard to tell the true story about his home situation. TAHMINA/MODL Voice ID: [id number] Report ID: [id number] KERI
[2022-07-21] MEDS: METRONIDAZOLE 500mg IVPB 500 MG/100 ML BAG IV SCH ×4 (01:20→18:00)
[2022-07-21 03:52] LABS: Absolute Lymphocytes (CBC) 3.2 K/uL (0.7-4.9); Hematocrit 28.8 % (39.6-49.0); Lymphocytes % 36.9 % (15.3-44.8); MCV 95.4 fL (80-100); MPV 7.3 fL (7.6-11.3); RBC Red Blood Cell Count 3.01 M/uL (4.33-5.43)
[2022-07-21 04:06] LABS: Potassium 5.1 mmol/L (3.5-5.1)
[2022-07-21] MEDS: D5 0.45 NS 1,000 ML IV SCH ×2 (06:34→17:00)
[2022-07-21] MEDS: LACTULOSE 20 GM/30 ML UCUP PO SCH (08:55)
[2022-07-21] MEDS: GABAPENTIN 100 MG CAP PO SCH ×3 (08:56→21:11)
[2022-07-21] MEDS: CALCITROL 0.25 MCG CAP PO SCH (08:56)
[2022-07-21] MEDS: SERTRALINE HCL 100 MG TAB PO SCH (08:57)
[2022-07-21] MEDS: ASPIRIN EC 81 MG TAB PO SCH (08:57)
[2022-07-21] MEDS: buPROPion HCL 100 MG TAB PO SCH (08:57)
[2022-07-21] MEDS: ATORVASTATIN 10 MG TAB PO SCH (08:57)
[2022-07-21] MEDS: SODIUM ZIRCONIUM CYCLOSILICATE 10 GM/PKT PO SCH (08:57)
[2022-07-21] MEDS: JUVEN PACKET PO SCH ×2 (09:00→21:12)
[2022-07-21] MEDS: ENSURE ENLIVE 237 ML CAN PO SCH ×2 (09:00→21:12)
--- NOTE | 2022-07-21 18:59 | PN ---
Subjective: Mr. Armijo is stable, has no diarrhea. Generally, he is weak. He is an amputee. The patient says, his does not let him come home now. [facility] needs [facility] to [facility]. We are waiting for placement in nursing Medicaid approval at this point, and this has become a social admission now. Patient is stable to go home, hoping for discharge planners to solve the food problem at home. He has double quantity of food at home, so that he can survive at home for a while until he gets approved or disapproved by Medicare and Medicaid for [facility] placement. Otherwise, clinically stable. Guarded prognosis. History of acute on chronic renal failure, currently stable. Creatinine is 2.32. RVD/MODL Voice ID: [id number] Report ID: [id number] KERI
[2022-07-21] MEDS: AMLODIPINE 10 MG TAB PO SCH (21:11)
[2022-07-21] MEDS: TAMSULOSIN 0.4 MG SR CAP PO SCH (21:11)
[2022-07-21] MEDS: FINASTERIDE 5 MG TAB PO SCH (21:11)
[2022-07-21] MEDS: MIRTAZAPINE 15 MG TAB PO SCH (21:12)
[2022-07-21] MEDS: ACETAMINOPHEN 500 MG TAB PO PRN (22:38)
--- NOTE | 2022-07-21 23:57 | PN ---
Date of Progress Note: 07/21/2022 Chief Complaint: Chronic kidney disease. Subjective: Patient developed diarrhea and was found to have acute on chronic kidney injury. He is currently on metronidazole for diarrhea and he denies nausea or vomiting. Diarrhea is subsiding. Th ere is no evidence of significant metabolic acidosis, although patient was found to have high BUN to creatinine ratio and elevated potassium upto 5.4. Patient was started on Lokelma. Review of Systems: Denies fever, chills. Physical Examination: Lungs: Clear to auscultation bilaterally. Heart: S1 and S2. Abdomen: Benign. Extremities: No edema. Impression And Plan: 1.Acute kidney injury on advanced chronic kidney disease secondary to gastrointestinal fluid loss, v olume depletion. Patient will continue p.o. hydration. He denies nausea or vomiting. He tolerates p.o. intake. 2.Hypertension, controlled. Continue current medication. 3.Hypophosphatemia. Patient received replacement. Monitor potassium level. 4.Diarrhea, colitis. Continue Flagyl. 5.Hyperkalemia. Continue Lokelma. Monitor potassium level. TREE/SASHA Voice ID: [id number] Report ID: [id number]
[2022-07-22] MEDS: METRONIDAZOLE 500mg IVPB 500 MG/100 ML BAG IV SCH ×2 (00:13→11:38)
[2022-07-22] MEDS: D5 0.45 NS 1,000 ML IV SCH (04:12)
[2022-07-22 04:19] LABS: Hematocrit 27.5 % (39.6-49.0); Lymphocytes % 28.2 % (15.3-44.8); MCV 94.9 fL (80-100); MPV 7.1 fL (7.6-11.3)
[2022-07-22 04:28] LABS: Potassium 5.2 mmol/L (3.5-5.1)
[2022-07-22 06:03] VITALS: TEMP 98.2
[2022-07-22] MEDS ORDERED: SODIUM CHLORIDE 0.9% 10ML INJ IV ONE (09:00)
[2022-07-22] MEDS ORDERED: COSYNTROPIN 0.25 MG VIAL IV ONE (09:00)
[2022-07-22 10:16] VITALS: O2SAT 93
[2022-07-22] MEDS: GABAPENTIN 100 MG CAP PO SCH ×2 (11:37→14:11)
[2022-07-22] MEDS: ASPIRIN EC 81 MG TAB PO SCH (11:37)
[2022-07-22] MEDS: buPROPion HCL 100 MG TAB PO SCH (11:37)
[2022-07-22] MEDS: ATORVASTATIN 10 MG TAB PO SCH (11:37)
[2022-07-22] MEDS: SERTRALINE HCL 100 MG TAB PO SCH (11:37)
[2022-07-22] MEDS: LACTULOSE 20 GM/30 ML UCUP PO SCH (11:37)
[2022-07-22] MEDS: CALCITROL 0.25 MCG CAP PO SCH (11:37)
[2022-07-22] MEDS: SODIUM ZIRCONIUM CYCLOSILICATE 10 GM/PKT PO SCH (11:38)
[2022-07-22] MEDS: ENSURE ENLIVE 237 ML CAN PO SCH (11:42)
[2022-07-22] MEDS: JUVEN PACKET PO SCH (11:43)
[2022-07-22 12:32] VITALS: BP 137/74
--- NOTE | 2022-07-22 15:47 | PN ---
Date of Progress Note: 07/22/2022 Subjective: The patient was admitted with acute kidney injury secondary to prerenal secondary to GI loss secondary to diarrhea. The patient's after hydration kidney function started being improving. Physical Examination: Vital Signs: Blood pressure 123/75, pulse of 94, afebrile. Chest: Clear to auscultation. Heart S1, S2. Systolic murmur. Abdomen: Soft, nontender. Extremities: No edema. Neurologic: Alert. No focality. Laboratory Data: Hemoglobin 9.2. Sodium 140, potassium 5.2, bicarb 28, BUN 83, creatinine 2.2, GFR of 31, calcium 9.6. Current Medications: The patient on include Flomax, aspirin, metronidazole 500 t.i.d., amlodipine 10 mg, atorvastatin, gabapentin, Zoloft, Zofran, finasteride, D5 half. Assessment And Plan: 1.Acute kidney injury secondary to prerenal, secondary to GI loss, recovered, resolved. I am going to go ahead and discontinue IV fluid. 2.Hypertension, controlled, optimal. Continue current treatment. 3.Obstructive uropathy. Continue finasteride. 4.Hyponatremia, depletional, resolved. 5.Hyperkalemia, marginal. We will continue to monitor. 6.Hypokalemia, status post supplement, resolved. 7.Acidosis non-anion gap secondary to GI loss, stable. 8.Diarrhea. The patient is on Flagyl. We will follow up with primary. DONN Voice ID: [id number] Report ID: [id number]
--- NOTE | 2022-07-23 17:52 | P.DS ---
Admission Date: 07/14/22 Discharge Date: 07/23/22 Disposition: DC HOME/HOME HEALTH CARE Discharge Condition: FAIR Reason for Admission: WEAKNESS AND DIARRHEA. - Problems (1) Acute on chronic renal failure Status: Acute (2) Colitis due to Clostridium difficile Onset Date: 05/25/18 Status: Chronic Brief History of Present Illness: RHEA HAS MANY MEDICAL ISSUES MAINLY RELATED TO COMPLICATIONS OF HEAVY SMOKING. THIS STARTED WITH PVD, GANGRENE, SEPSIS, AMPUTATION, MULTIPLE MONTHS OF ANTIBIOTICS AT MANY HOSPITALS LATER HAD WORSE CKD TO CKD5 AND HEMODIALYSIS. HE HAS HAD C DIFF COLITIS FOR ABOUT TWO MONTHS AND MANAGED BY SUBSURFACE AUGMENTEE OPERATOR WITH ORAL VANCOMYCIN THAT FAILED AND THEN NOW HE IS ON XIFAXAN . I ALSO NOTED THAT HE HAS NATACHA GIVEN LACTULOSE AND STILL ON IT. Hospital Course: RHEA IS DEBILITATED GM WITH CKD, RECURRENT C DIFF, HE DOES NOT GET ENOUGH FOOD AND CONTINUES TO TAKE LACTULOSE, HAS CHRONIC DIARRHEA. I STOPPED HIS LACTULOSE. HE HAS NO MORE DIARRHEA. HE FEELS GREAT WHEN HE GETS FOOD. HIS AND HIM ARE NOT ABLE AFFORD FOOD. HIS DAUGHTER TOOK HIM TO [facility] FOR RST OF HIS LIFE. HE IS AN AMPUTEE AND NOT ABLE TO TAKE CARE OF HIMSELF. HIS PROGNOSIS IS POOR FROM SMOKING RELATED COMPLICATIONS. Vital Signs/Physical Exam: Temp Pulse Resp BP Pulse Ox 98.2 F 82 16 137/74 94 07/22/22 12:00 07/22/22 12:00 07/22/22 12:00 07/22/22 12:00 07/22/22 12:00 Laboratory Data at Discharge: WBC 10.50 K/uL (4.3-10.9) 07/22/22 03:40 Hgb 9.2 g/dL (13.6-17.9) L 07/22/22 03:40 Hct 27.5 % (39.6-49.0) L 07/22/22 03:40 Plt Count 407 K/uL (152-406) H 07/22/22 03:40 Sodium 140 mmol/L (136-145) 07/22/22 03:40 Potassium 5.2 mmol/L (3.5-5.1) H 07/22/22 03:40 BUN 83 mg/dL (7-18) H 07/22/22 03:40 Creatinine 2.23 mg/dL (0.55-1.3) H 07/22/22 03:40 Glucose 111 mg/dL (74-106) H 07/22/22 03:40 Phosphorus 1.6 mg/dL (2.5-4.9) L 07/20/22 02:55 Magnesium 1.7 mg/dL (1.8-2.4) L 07/20/22 02:55 Magnesium Cancelled 07/20/22 02:55 Total Bilirubin 0.3 mg/dL (0.2-1.0) 07/14/22 17:45 AST 13 U/L (15-37) L 07/14/22 17:45 ALT < 10 U/L (12-78) L 07/14/22 17:45 Alkaline Phosphatase 110 U/L (45-117) 07/14/22 17:45 Lipase 164 U/L (73-393) 07/14/22 17:45 Home Medications: Aspirin [Ecotrin 81 MG] 81 mg PO DAILY 06/19/20 Mirtazapine 15 mg PO BEDTIME 06/19/20 Sertraline [Zoloft*] 100 mg PO DAILY 06/19/20 Finasteride [Proscar*] 5 mg PO BEDTIME 11/29/21 Bupropion HCl [Wellbutrin] 50 mg PO DAILY 12/02/21 Atorvastatin Calcium [Lipitor*] 10 mg PO DAILY 12/22/21 Gabapentin [Neurontin*] 100 mg PO TID 05/10/22 Amlodipine [Norvasc*] 10 mg PO BEDTIME 07/14/22 Calcitriol [Rocaltrol] 0.5 mcg PO DAILY 07/14/22 Tamsulosin [Flomax*] 0.4 mg PO BEDTIME 07/14/22 Followup: Jose De Paz MD [Primary Care Provider] -
== END 2022-07-22 16:18 | disposition home health service (06) | DRG 682 ==
LOC: ER 16:39 → ERHOLD 18:58 → 2ND 21:29
PROVIDERS: ADMIT Internal Medicine; ATTEND Internal Medicine
DX: N17.9 Acute kidney failure, unspecified (principal); L89.153 Pressure ulcer of sacral region, stage 3; E44.0 Moderate protein-calorie malnutrition; Z68.1 Body mass index [BMI] 19.9 or less, adult; R64 Cachexia; E87.0 Hyperosmolality and hypernatremia; E86.0 Dehydration; I25.10 Atherosclerotic heart disease of native coronary artery without angina pectoris; E78.5 Hyperlipidemia, unspecified; K59.00 Constipation, unspecified; I12.9 Hypertensive chronic kidney disease with stage 1 through stage 4 chronic kidney disease, or unspecified chronic kidney disease; N18.30 Chronic kidney disease, stage 3 unspecified; F31.9 Bipolar disorder, unspecified; E87.5 Hyperkalemia; E83.39 Other disorders of phosphorus metabolism; E87.6 Hypokalemia; N25.81 Secondary hyperparathyroidism of renal origin; K52.9 Noninfective gastroenteritis and colitis, unspecified; E83.42 Hypomagnesemia; J44.9 Chronic obstructive pulmonary disease, unspecified; F17.210 Nicotine dependence, cigarettes, uncomplicated; Z99.2 Dependence on renal dialysis; Z95.1 Presence of aortocoronary bypass graft; Z88.8 Allergy status to other drugs, medicaments and biological substances; Z90.49 Acquired absence of other specified parts of digestive tract; Z79.82 Long term (current) use of aspirin; Z86.718 Personal history of other venous thrombosis and embolism; Z79.899 Other long term (current) drug therapy; Z89.612 Acquired absence of left leg above knee; Z20.822 Contact with and (suspected) exposure to COVID-19
CPT/HCPCS: 36415; 71045; 80048; 80053; 80069; 81003; 82024; 82274; 82533; 82550; 83690; 83735; 83970; 84443; 85025; 87045; 87046; 87324; 87493; 87811; 89055; 96361; 96374; 96375; 97161; 97530; 99285; A4216; J0834; J2405; J3475; J3480; J7030; J7040; J7050; J7799